=== PATIENT | male | born 1945 | race Caucasian/White ===

== ENCOUNTER 2017-01-13 14:01 | Inpatient (IN) | payer OTHER, MEDICARE ==
[~2017-01-13] VITALS: Ht 177.8 cm; Wt 99.7 kg
[2017-01-13] VITALS (11 sets, daily range): BP systolic 114–149; BP diastolic 51–70; PULSE 72–88; TEMP 36.7–37.1; O2SAT 93–99
[~2017-01-13 14:01] MED LIST changes: -ADVIN25/60 INH; -FRRG PO; -PRLSR20 PO
[2017-01-13] MEDS ORDERED: ADVIN25/60 INH (14:47)
--- NOTE | 2017-01-13 14:48 | EMERGENCY ROOM VISIT NOTE ---
History Report prepared by Julia: Roman Fontenot Under the Supervision of: Dr. Mj Ramsay D.O. First contact with patient: 14:20 Chief Complaint: ABNORMAL LABS Stated Complaint: ABNORMAL BLOOD TEST History of Present Illness The patient is a 71 year old male who presents to the Emergency Room with complaints of shortness of breath and abnormal labs for the past week. The patient states that anytime he took a few steps he gets short of breath and his heart rate goes up. The patient additionally states that he has a slight cough. He denies any chest pain, leg swelling or pain, hematochezia or melena. He states that he drinks alcohol occasionally, he stopped smoking about a week ago , and he has COPD. The patient states that he does not use blood thinners. He additionally states that this has happened before three years ago, and it was never determined why. The patient also states that he has a history of a heart murmur. Source of History: patient Onset: past week Position: other (global) Quality: other (shortness of breath) Associated Symptoms: + cough, No chest pain, No hematochezia, No melena Review of Systems See HPI for pertinent positives & negatives. A total of 10 systems reviewed and were otherwise negative. 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 (5) COPD (chronic obstructive pulmonary disease) (6) Heart murmur (7) Hypertension (8) Hypertension (9) s/p left carotid end Surgical Problems: (1) Status post carotid surgery Family History Cancer Hypertension Social History Smoking Status: Former Smoker Marital Status: Housing Status: lives with family Occupation Status: employed Current/Historical Medications Scheduled Wexemjk-Qltkeaxrx-Virf (Calcium Magnesium & Zinc), 1 TAB PO NOON Fluticasone Prop/Salmeterol (Advair Diskus 250/50 60 Dose), 1 PUFFS INH BID Furosemide (Furosemide), 40 MG PO BID Losartan Potassium (Cozaar), 25 MG PO DAILY AFTERNOON Magnesium (Magnesium 250 mg), 1 TAB PO DAILY AFTERNOON Spironolactone (Spironolactone), 25 MG PO DAILY AFTERNOON Allergies Coded Allergies: No Known Allergies (Unverified , 01/13/17) Physical Exam Vital Signs Date Time Temp Pulse Resp B/P Pulse Ox O2 Delivery O2 Flow Rate FiO2 01/13/17 17:41 37.1 87 25 124/51 94 01/13/17 17:22 91 18 126/51 96 Room Air 01/13/17 16:03 96 15 108/55 95 Room Air 01/13/17 14:55 91 01/13/17 14:03 36.6 105 22 138/57 97 Physical Exam GENERAL: Patient is awake, alert, somewhat anxious appearing but comfortable in no pain EYES: The conjunctivae are clear. The pupils are round and reactive. EARS, NOSE, MOUTH AND THROAT: The nose is without any evidence of any deformity. Mucous membranes are moist tongue is midline NECK: The neck is nontender and supple. RESPIRATORY: Normal respiratory effort is noted there is no evidence of wheezing rhonchi or rales CARDIOVASCULAR: Tachycardic rate with a systolic murmur suggested on auscultation. GASTROINTESTINAL: The abdomen is soft. Bowel sounds are present in all quadrants. Abdomen is nontender RECTAL: Maroon stool which was strongly heme positive MUSCULOSKELETAL/EXTREMITIES: There is no evidence of gross deformity full range of motion is noted in the hips and shoulders SKIN: Pedal edema bilaterally NEUROLOGIC: Patient is awake alert and oriented x3 Medical Decision & Procedures Laboratory Results 01/13/17 14:36 Red Blood Count 2.46, Mean Corpuscular Volume 84.1, Mean Corpuscular Hemoglobin 27.2, Mean Corpuscular Hemoglobin Concent 32.4, Mean Platelet Volume 9.7, Neutrophils (%) (Auto) 56.9, Lymphocytes (%) (Auto) 27.0, Monocytes (%) (Auto) 9.5, Eosinophils (%) (Auto) 5.3, Basophils (%) (Auto) 1.1, Neutrophils # (Auto) 4.75, Lymphocytes # (Auto) 2.25, Monocytes # (Auto) 0.79, Eosinophils # (Auto) 0.44, Basophils # (Auto) 0.09 01/13/17 14:36 Test 01/13/17 00:00 01/13/17 14:36 Urine Color YELLOW Urine Appearance CLEAR (CLEAR) Urine pH 5.0 (4.5-7.5) Urine Specific [place] 1.005 (1.000-1.030) Urine Protein NEG (NEG) Urine Glucose (UA) NEG (NEG) Urine Ketones NEG (NEG) Urine Occult Blood NEG (NEG) Urine Nitrite NEG (NEG) Urine Bilirubin NEG (NEG) Urine Urobilinogen NEG (NEG) Urine Leukocyte Esterase SMALL (NEG) Urine WBC (Auto) 1-5 /hpf (0-5) Urine RBC (Auto) 0-4 /hpf (0-4) Urine Hyaline Casts (Auto) 1-5 /lpf (0-5) Urine Epithelial Cells (Auto) 0-5 /lpf (0-5) Urine Bacteria (Auto) NEG (NEG) White Blood Count 8.34 K/uL (4.8-10.8) Red Blood Count 2.46 M/uL (4.7-6.1) Hemoglobin 6.7 g/dL (14.0-18.0) Hematocrit 20.7 % (42-52) Mean Corpuscular Volume 84.1 fL (80-100) Mean Corpuscular Hemoglobin 27.2 pg (25-34) Mean Corpuscular Hemoglobin Concent 32.4 g/dl (32-36) Platelet Count 371 K/uL (130-400) Mean Platelet Volume 9.7 fL (7.4-10.4) Neutrophils (%) (Auto) 56.9 % Lymphocytes (%) (Auto) 27.0 % Monocytes (%) (Auto) 9.5 % Eosinophils (%) (Auto) 5.3 % Basophils (%) (Auto) 1.1 % Neutrophils # (Auto) 4.75 K/uL (1.4-6.5) Lymphocytes # (Auto) 2.25 K/uL (1.2-3.4) Monocytes # (Auto) 0.79 K/uL (0.11-0.59) Eosinophils # (Auto) 0.44 K/uL (0-0.5) Basophils # (Auto) 0.09 K/uL (0-0.2) RDW Standard Deviation 46.2 fL (36.4-46.3) RDW Coefficient of Variation 15.0 % (11.5-14.5) Immature Granulocyte % (Auto) 0.2 % Immature Granulocyte # (Auto) 0.02 K/uL (0.00-0.02) Large Platelets 1+ Polychromasia 1+ Absolute Reticulocyte Count 0.10 10^6/uL (0.02-0.10) Percent Reticulocyte Count 3.9 % (0.5-2.0) Prothrombin Time 10.7 SECONDS (9.0-12.0) Prothromb Time International Ratio 1.0 (0.9-1.1) Activated Partial Thromboplast Time 32.2 SECONDS (21.0-31.0) Partial Thromboplastin Ratio 1.2 Anion Gap 8.0 mmol/L (3-11) Est Creatinine Clear Calc Drug Dose 93.8 ml/min Estimated GFR () 101.2 Estimated GFR (Non- 87.3 BUN/Creatinine Ratio 20.1 (10-20) Calcium Level 8.6 mg/dl (8.5-10.1) Total Bilirubin 0.3 mg/dl (0.2-1) Direct Bilirubin < 0.1 mg/dl (0-0.2) Aspartate Amino Transf (AST/SGOT) 22 U/L (15-37) Alanine Aminotransferase (ALT/SGPT) 42 U/L (12-78) Alkaline Phosphatase 77 U/L (45-117) Troponin I < 0.015 ng/ml (0-0.045) Total Protein 6.6 gm/dl (6.4-8.2) Albumin 3.5 gm/dl (3.4-5.0) Lipase 203 U/L (73-393) Laboratory results per my review. Medications Administered Medications (Trade) Dose Ordered Sig/Yanni Route Start Time Stop Time Status Last Admin Dose Admin Pantoprazole Sodium 80 mg/ Dextrose 120 ml @ 480 mls/hr TODAY@1600 ONCE IV 01/13/17 16:00 01/13/17 16:14 DC 01/13/17 16:24 480 MLS/HR Pantoprazole Sodium/Dextrose (Protonix Inj/D5 100ml) 100 ml @ 20 mls/hr Q5H IV 01/13/17 16:15 01/13/17 21:14 01/13/17 16:42 20 MLS/HR ECG Indication: SOB/dyspnea Rate (beats per minute): 92 Rhythm: normal sinus Findings: ST depression (Lateral), no ectopy Comparison ECG Date: 09/15/15 Change: no significant change ED Course 1420: The patient was evaluated in room A2. A complete history and physical examination were performed. 1519: I discussed the patient's case with Dr. Owen. He is going to evaluate the patient for further treatment. He said to order four units of blood for the patient Medical Decision Differential diagnosis: Etiologies such as diverticulosis, AVM, coagulopathy, colitis, inflammatory bowel disease, malignancy, Tiffanie-Watson tear, esophagitis, peptic ulcer disease , variceal bleed, gastritis, epistaxis, fissure, hemorrhoids, as well as others were entertained. Nursing notes reviewed. The patient's laboratory studies were also reviewed from his outpatient drop. The patient is a 71-year-old male who presented to the emergency department with shortness of breath on exertion. The patient had outpatient laboratory studies to her his primary care physician and was found have very severe anemia. He was also found have heme positive stool which was maroon color. I do feel the patient may be suffering from a diverticular bleed at this time although he did not realize that. I discussed the patient's laboratory radiographic studies with him. He was treated with blood transfusion in the emergency department. The patient's primary care physician sent him to the emergency department because he was unable to make him a direct admit at this time. I discussed the patient's presentation as well as his physical exam findings with his primary care physician. He is agreed to evaluate the patient in the emergency department for further management and disposition. The patient' s blood transfusion was started in the emergency department. He was feeling much better on subsequent reevaluation especially at rest. Consults Time Called: 1515 Consulting Physician: Dr. Owen Returned Call: 1518 I discussed the patient's case with Dr. Owen. He is going to evaluate the patient for further treatment. He said to order four units of blood for the patient Impression Primary Impression: Lower GI bleed Additional Impression: Anemia Critical Care I have personally spent greater than 45 minutes of critical care time in the direct management of this patient. This includes bedside care, interpretation of diagnostic studies, and testing, discussion with consultants, patient, and family members, and other required patient management activities. This 45 minutes is in excess of all separately billable procedures. Scribe Attestation The scribe's documentation has been prepared under my direction and personally reviewed by me in its entirety. I confirm that the note above accurately reflects all work, treatment, procedures, and medical decision making performed by me. Departure Information Dispostion Being Evaluated By Hospitalist Referrals Robert Anguiano M.D. (PCP) Patient Instructions My [facility] Problem Qualifiers Additional Impression: Anemia Anemia type: other cause Other causes of anemia: acute posthemorrhagic Qualified Codes: D62 - Acute posthemorrhagic anemia
[2017-01-13 15:01] LABS: HEMATOCRIT 20.7 % (42-52); MEAN CELL VOLUME 84.1 fL (80-100); MEAN CORPUSCULAR HEMOGLOBIN 27.2 pg (25-34); MEAN CORPUSCULAR HGB CONC 32.4 g/dl (32-36); MEAN PLATELET VOLUME 9.7 fL (7.4-10.4); PLATELET COUNT 371 K/uL (130-400); RED BLOOD COUNT 2.46 M/uL (4.7-6.1); WHITE BLOOD COUNT 8.34 K/uL (4.8-10.8)
[2017-01-13 15:04] LABS: PARTIAL THROMBOPLASTIN RATIO 1.2; PROTHROMBIN TIME (PATIENT) 10.7 SECONDS (9.0-12.0)
[2017-01-13 15:08] LABS: URINE APPEARANCE CLEAR (CLEAR); URINE BILIRUBIN NEG (NEG); URINE COLOR YELLOW; URINE EPITHELIAL CELL AUTO 0-5 /lpf (0-5); URINE NITRITE NEG (NEG); URINE SPECIFIC GRAVITY 1.005 (1.000-1.030); UROBILINOGEN NEG (NEG)
[2017-01-13 15:09] LABS: MANUAL MICROSCOPIC REQUIRED? NO; REVIEW REQ? NO
[2017-01-13 15:13] LABS: ALT/SGPT 42 U/L (12-78); AST/SGOT 22 U/L (15-37); BLOOD UREA NITROGEN 17 mg/dl (7-18); BUN/CREATININE RATIO 20.1 (10-20); CALCIUM 8.6 mg/dl (8.5-10.1); CARBON DIOXIDE 27 mmol/L (21-32); CHLORIDE 104 mmol/L (98-107); CREATININE 0.83 mg/dl (0.60-1.40); GLUCOSE 99 mg/dl (70-99); SODIUM 139 mmol/L (136-145)
[2017-01-13 15:18] LABS: ALKALINE PHOSPHATASE 77 U/L (45-117)
[2017-01-13 15:19] LABS: BASO % 1.1 %; BASO ABS # 0.09 K/uL (0-0.2); COMPLETE YES; EOS % 5.3 %; IG% 0.2 %; LARGE PLATELETS 1+; LYMPH ABS # 2.25 K/uL (1.2-3.4); MONO % 9.5 %; NEUT % 56.9 %; POLYCHROMASIA 1+
[2017-01-13] MEDS ORDERED: PANTOprazole INJ 80 MG in DEXTROSE 5% 100ML IV ONE (16:00)
[2017-01-13] MEDS ORDERED: PANTOprazole INJ 40 MG in DEXTROSE 5% 100ML IV SCH (16:15)
[2017-01-13] MEDS: LEVALBUTEROL 1.25MG/3ML NEB INH SCH (21:45)
--- NOTE | 2017-01-13 22:54 | HISTORY & PHYSICAL EXAMINATION ---
DATE OF ADMISSION: 01/13/2017 A 71-year-old male, admitted with severe anemia with hemoglobin down to 6.4 and evidence of GI bleed. HISTORY OF PRESENT ILLNESS: The patient with multiple medical problems including severe chronic obstructive pulmonary disease, chronic respiratory failure on home oxygen, arterial hypertension, moderate aortic stenosis, atherosclerotic vascular disease with history of left carotid endarterectomy and smoker. The patient was seen in the office this morning. He was complaining of shortness of breath. He stated that for about the last 1 to 1-1/2 weeks he has been having significant shortness breath, especially with any activity. Even with minimal activity he becomes very dyspneic and tachycardic. His heart rate shows over 100. He has been also complaining of wheezing. He had a recent upper respiratory tract infection which has now resolved. He also has been complaining of lightheadedness when he stares up. He denied any headache. No chest pain. He has been dyspneic as noted above. He has been having some cough, but only clear sputum. No hemoptysis. He has been complaining of heartburn. No nausea, no vomiting. He has not had any problem with his bowel movements. He insists that he has not noted any change in the color of his stool. No urinary problem. No pain in his back or extremities. Laboratory tests were done after I saw him in the office including a CBC. His hemoglobin was called to the lab because it was a critical value, it was 6.4. I contacted the patient. I told him that he was markedly anemic. He needs to be admitted. Arrangements were being made for admission directly to a medical bed, but unfortunately there was no bed available immediately, so the patient was sent to the Emergency Room to get started on his treatment. The patient presented with a similar episode with hemoglobin down to 6.4 back in 2014. His GI workup at that time was unremarkable for any source of bleeding, but he did have evidence of GI bleed at that time also. After admission to the Emergency Room, I did speak with Dr. Burrell and requested a GI consultation. PAST MEDICAL HISTORY: 1. Severe chronic obstructive pulmonary disease. He has been a long-term smoker. Even now he is still smoking, but he told me that he has not smoked for one week. 2. Left carotid endarterectomy for severe carotid artery stenosis done by Dr. Crawley on 10/11/2014. 3. History of colonic polyps. Last colonoscopy was done on 04/01/2015 and he only had one polyp. 4. Appendectomy in the early 1970s. 5. Fracture of the left radius and ulna at age 10. 6. Removal of a left first toe nail bed in the past. 7. Glaucoma, first diagnosed in 2008. 8. Arterial hypertension, treated for the last 3 years. 9. Bilateral cataract surgery, in March 2016. SOCIAL HISTORY: He is , has 2 children. He smokes up to one pack per day since age 17. He made multiple attempts to stop smoking without success. No excessive alcohol. He is retired. 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 FAMILY HISTORY: His mother at age 74, had breast cancer and liver metastasis. His father at age 91 of natural cause. One sister is alive. Children are alive and well. ALLERGIES: BEE STINGS. MEDICATIONS ON ADMISSION: As noted on his admission medication list. REVIEW OF SYSTEMS: Mostly as noted above. PHYSICAL EXAMINATION: GENERAL: Well-developed, in no acute distress. He is dyspneic with minimal activity. His recorded weight is 99.7 kg, height 177.8 cm and BMI 31.5. VITAL SIGNS: Blood pressure 138/57, pulse 105, respirations 22, temperature 36.6 and oxygen saturation 97% on room air. SKIN: Warm and dry. No rash. HEENT: He is post-cataract surgery. No mucosal abnormality in his nose, mouth or throat. NECK: Supple without adenopathy or thyromegaly. No JVD. Bilateral carotid bruits. Scar on left side of the neck from prior carotid endarterectomy. HEART: Regular heart sounds with 2/6 systolic murmur. LUNGS: Decreased breath sounds. No wheezing. No rales. ABDOMEN: Obese, soft and nontender without organomegaly or masses. BACK: No spinal tenderness. EXTREMITIES: Minimal edema. No clubbing. No cyanosis. Absent dorsalis pedis pulses. NEUROLOGIC: He is alert and oriented. No deficits. RECTAL: Examination was done by Dr. Ramsay in the Emergency Room and his stool tested positive for occult blood. LABORATORY TESTS: WBC count 8340, hemoglobin 6.7, hematocrit 20.7, platelet count 371,000. Prothrombin time 10.7, INR 1.0, PTT 32.2. Sodium 139, potassium 4.0, chloride 104, CO2 27, BUN 17, creatinine 0.83, glucose 99, calcium 8.6, total bilirubin 0.3, direct bilirubin less than 0.1, AST 22, ALT 42, alkaline phosphatase 77, troponin I less than 0.015, total protein 6.6, albumin 3.5, lipase 203. His chest x-ray was just done today and showed no evidence of any acute changes. His electrocardiogram showed sinus rhythm. No acute changes were noted. ASSESSMENT: 1. Severe anemia with a hemoglobin of 6.7; it was 6.4 earlier this morning. 2. Evidence of gastrointestinal bleed. 3. Severe chronic obstructive pulmonary disease. 4. Chronic respiratory failure. 5. Atherosclerotic vascular disease with history of left carotid endarterectomy. 6. Moderate aortic stenosis. 7. Smoker. PLAN: The patient was admitted to a medical bed. Resuscitation level 1. All his laboratory tests were ordered. He was typed and cross-matched for packed RBCs. Transfusion was initiated. GI consultation was requested. He saw Dr. Burrell and Dr. Burrell is planning on proceeding with endoscopies after prep tomorrow. In the meantime, he is on IV Protonix. He will receive a total of 3 units of packed RBCs tonight. We will recheck his hemoglobin and hematocrit in the morning. As noted, in 2014 he did have a similar episode of severe anemia and no definite etiology to the blood loss was determined.
[2017-01-14] VITALS (12 sets, daily range): BP systolic 120–170; BP diastolic 63–91; PULSE 73–80; TEMP 36.3–36.8; O2SAT 94–98; Ht 177.8 cm; Wt 99.7 kg
[2017-01-14] MEDS ORDERED: LAVAGE SOLUTION 4000ML PO SCH
[2017-01-14] MEDS: FLUTICASONE/SALMETEROL 250/50 (ADVAIR) 14 PUFF/1 INHALER INH SCH ×3 (01:02→19:58)
[2017-01-14] MEDS: LEVALBUTEROL 1.25MG/3ML NEB INH SCH ×4 (02:08→19:20)
[2017-01-14] MEDS: PANTOprazole INJ 40 MG in DEXTROSE 5% 100ML IV SCH ×2 (06:02→10:28)
--- NOTE | 2017-01-14 06:41 | Clinical Documentation Query ---
Dr. KARINE SORENSEN [facility] : CLINICAL DOCUMENTATION QUERY Patient is a 71 year old male admitted for treatment of gastrointestinal bleeding. Noted to be severely anemic with a hemoglobin of 6.7 g/dl. Noted hematochezia on exam in ED. 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 Please clarify as clinically appropriate. Thank you. In your clinical opinion is this patient being managed for: (x ) Acute blood loss anemia ( ) Other explanation of clinical findings (Please Explain) ( ) Unable to determine (Please Define) ( ) Need to Discuss ( ) Not Agree The medical record reflects the following clinical findings, treatment, and risk factors. Clinical Indicators: As above Treatment: Admission, transfusion of PRBC's, serial hematology, GI consultation Risk Factors: Age Please clarify and document your clinical opinion in the progress notes and discharge summary. Terms such as "probable", "suspected", "likely", "questionable", "possible", or "still to be ruled out" are acceptable. IF IN AGREEMENT, YOU MUST DOCUMENT ABOVE DIAGNOSTIC STATEMENT IN DAILY PROGRESS NOTES AND DISCHARGE SUMMARY. This document is not part of the patient's record. Thank You, Cuauhtemoc Story, RN [phone]
[2017-01-14 07:13] LABS: BASO ABS # 0.09 K/uL (0-0.2); COMPLETE YES; EOS % 4.6 %; IG% 0.2 %; LYMPH % 21.9 %; LYMPH ABS # 1.94 K/uL (1.2-3.4); MEAN CELL VOLUME 83.8 fL (80-100); MEAN CORPUSCULAR HEMOGLOBIN 27.2 pg (25-34); MEAN CORPUSCULAR HGB CONC 32.4 g/dl (32-36); MEAN PLATELET VOLUME 10.1 fL (7.4-10.4); MONO % 9.2 %; NEUT % 63.1 %; PLATELET COUNT 327 K/uL (130-400); RED BLOOD COUNT 3.46 M/uL (4.7-6.1); WHITE BLOOD COUNT 8.87 K/uL (4.8-10.8)
--- NOTE | 2017-01-14 07:31 | GASTROINTESTINAL CONSULTATION ---
DATE OF CONSULTATION: 01/13/2017 REQUESTING PROVIDER: Robert Owen MD INDICATION: Acute GI bleeding and anemia. HISTORY OF PRESENT ILLNESS: I was contacted by Dr. Owen to evaluate Mr. Lobo who is a 71-year-old white male, with a history of COPD, who presents with evidence of anemia. The patient has noted increased fatigue over the last several days and increased shortness of breath. He also noted that his heart rate was tachycardic at home with also some wheezing. The patient seems to recall some recent dark-appearing stools and in 2013 or 2014 the patient had a similar event where he was having dark-appearing stools and found to have low hemoglobin. The patient had undergone an upper endoscopy and colonoscopy at that time which were unrevealing for a specific source. The patient was given blood transfusions at that time, oral iron replacements for several months and by the patient's history, his hemoglobin became more satisfactory and stayed that way for some time. The patient denies any use of NSAIDs or aspirin. He has no abdominal pain and did not report hematochezia, hematemesis or coffee-ground emesis during these over the past several weeks. His office hemoglobin today was 6.4. PAST MEDICAL HISTORY: The patient with COPD, left carotid endarterectomy, history of colonic polyps (he was found to have several polyps that were all removed in 2014 by the patient's history). He also had an appendectomy, left arm fracture, glaucoma, hypertension and cataracts. SOCIAL HISTORY: The patient is , with 2 children. He uses tobacco products. 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 He denies alcohol other than occasional social intake. FAMILY HISTORY: Significant for mother with breast cancer with liver metastasis. His father had no known cancer or gastrointestinal disorders. The children are alive and well. ALLERGIES: TO BEE STINGS, but no allergies to medications specifically. MEDICATIONS: At home include; home O2, calcium, furosemide, losartan, magnesium, spironolactone and Advair. He has no known drug allergies. REVIEW OF SYSTEMS: Otherwise noncontributory based on 14-point exam except for as noted above. There is no weight loss, odynophagia or dysphagia. It is reported that patient denies any diarrhea, constipation or straining. There are no skin disorders or neurologic symptoms described. PHYSICAL EXAMINATION: GENERAL: Today shows a well-developed male, in no acute distress. He is sitting in the bed in the Emergency Room comfortably. VITAL SIGNS: On admission; with temperature 36.6, pulse 105, respirations 22, blood pressure 138/57 and pulse ox is 97%. HEENT: The patient is awake, alert and oriented x3. Sclerae are anicteric, conjunctivae are moist. NECK: There is no cervical or supraclavicular adenopathy. I do not appreciate thyromegaly. HEART: Normal S1, S2. LUNGS: Clear to auscultation without rales, rhonchi or wheezes. ABDOMEN: Soft, obese, nontender and nondistended with normal bowel sounds. There is no rebound or guarding. I do not appreciate hepatosplenomegaly. EXTREMITIES: Without clubbing or cyanosis. There is trace edema bilaterally. RECTAL: Deferred at this time. LABORATORY STUDIES: Hemoglobin today was 6.7, white count 8.3 and platelets 371,000. BUN and creatinine are 17 and 0.8. Potassium 4.0, glucose 99. Urinalysis is unremarkable except for a small amount of leukocyte esterase positivity. The patient had an EKG in the Emergency Room which was sinus with lateral ST depression without ectopy. IMPRESSION: Mr. Lobo is a 71-year-old male with chronic obstructive pulmonary disease, found to have anemia. This has been recurrent and occurred in 2013/2014. The source of this is unclear based on the prior exams. The differential for this given the absence of prior mucosal disorders includes arteriovenous malformations that may extend beyond the extents reached by colonoscopy or upper endoscopy. We will plan for an upper endoscopy/push enteroscopy tomorrow along with a colonoscopy for on. The patient will continue to receive PPI therapy and transfusions as needed. The patient will be n.p.o. after midnight except for medications. All questions were answered. If this is unrevealing, then the patient may benefit from a small bowel video capsule endoscopy to exclude any areas that may be sources of bleeding beyond the extents of bidirectional endoscopy. This, by the patient's description, has never been a significantly overt bleeding process. However, if these persist and there is nothing on upper endoscopy or capsule endoscopy a Meckel's scan may be helpful. We will continue to follow. Thank you for allowing me to participate in the care of this pleasant gentleman.
[2017-01-14 07:43] LABS: BUN/CREATININE RATIO 18.2 (10-20); CREATININE 0.83 mg/dl (0.60-1.40)
[2017-01-14] MEDS ORDERED: LIDOCAINE HCL 2% 2 ML VIAL (20MG/ML) ONE (15:25)
[2017-01-14] MEDS ORDERED: PROPOFOL IV EMULSION 10 MG/ML 20 ML VIAL IV ONE ×2 (15:25→16:37)
--- NOTE | 2017-01-14 15:28 | History & Physical Bridge Note ---
H&P Re-Evaluation Bridge Note: I have examined the patient, reviewed the History & Physical and in the interval since the performance of the History & Physical I have noted the following changes of clinical significance: No changes noted
[2017-01-14] MEDS ORDERED: LOSARTAN POTASSIUM 25 MG TAB PO SCH (16:00)
[2017-01-14] MEDS ORDERED: SPIRONOLACTONE 25 MG TAB PO SCH (16:00)
--- NOTE | 2017-01-14 16:44 | GI REPORT ---
Procedure Date: 01/14/2017 3:27 PM Procedure: Small bowel enteroscopy Indications: Iron deficiency anemia secondary to chronic blood loss, Obscure gastrointestinal bleeding, Occult blood in stool Medicines: Propofol per Anesthesia Complications: No immediate complications. Estimated blood loss: None. Estimated Blood Loss: Estimated blood loss: none. Procedure: Pre-Anesthesia Assessment: - Prior to the procedure, a History and Physical was performed, and patient medications and allergies were reviewed. The patient's tolerance of previous anesthesia was also reviewed. The risks and benefits of the procedure and the sedation options and risks were discussed with the patient. All questions were answered, and informed consent was obtained. Prior Anticoagulants: The patient has taken no previous anticoagulant or antiplatelet agents. ASA Grade Assessment: III - A patient with severe systemic disease. After reviewing the risks and benefits, the patient was deemed in satisfactory condition to undergo the procedure. After obtaining informed consent, the endoscope was passed under direct vision. Throughout the procedure, the patient's blood pressure, pulse, and oxygen saturations were monitored continuously. The scope was introduced through the mouth and advanced to the mid-jejunum. After obtaining informed consent, the endoscope was passed under direct vision. Throughout the procedure, the patient's blood pressure, pulse, and oxygen saturations were monitored continuously.The small bowel enteroscopy was accomplished without difficulty. The patient tolerated the procedure well. Findings: The examined esophagus was normal. Striped mildly erythematous mucosa without bleeding was found in the gastric antrum. The cardia and gastric fundus were normal on retroflexion. There was no evidence of significant pathology in the entire examined duodenum. Three angioectasias with stigmata of recent bleeding were found in the mid-jejunum. Fulguration to ablate the lesion to prevent bleeding by bipolar probe was successful. Impression: - Normal esophagus. - Erythematous mucosa in the antrum. - Normal examined duodenum. - Three recently bleeding angioectasias in the jejunum. Treated with bipolar cautery. - No specimens collected. Recommendation: - Perform a colonoscopy today. MD Rikki Caputo MD 01/14/2017 4:44:22 PM This report has been signed electronically. Note Initiated On: 01/14/2017 3:27 PM I attest to the content of the Intraoperative Record and orders documented therein, exceptions below
--- NOTE | 2017-01-14 16:50 | GI REPORT ---
Procedure Date: 01/14/2017 3:27 PM Procedure: Colonoscopy Indications: Iron deficiency anemia secondary to chronic blood loss Medicines: Propofol per Anesthesia Complications: No immediate complications. Estimated Blood Loss: Estimated blood loss: none. Procedure: Pre-Anesthesia Assessment: - Prior to the procedure, a History and Physical was performed, and patient medications and allergies were reviewed. The patient's tolerance of previous anesthesia was also reviewed. The risks and benefits of the procedure and the sedation options and risks were discussed with the patient. All questions were answered, and informed consent was obtained. Prior Anticoagulants: The patient has taken no previous anticoagulant or antiplatelet agents. ASA Grade Assessment: III - A patient with severe systemic disease. After reviewing the risks and benefits, the patient was deemed in satisfactory condition to undergo the procedure. After I obtained informed consent, the scope was passed under direct vision. Throughout the procedure, the patient's blood pressure, pulse, and oxygen saturations were monitored continuously. The scope was introduced through the anus and advanced to the cecum, identified by appendiceal orifice and ileocecal valve. The colonoscopy was performed without difficulty. The patient tolerated the procedure well. The quality of the bowel preparation was fair. Findings: The perianal and digital rectal examinations were normal. Pertinent negatives include normal sphincter tone, no palpable rectal lesions and no anal lesion or abnormality was detected. A single medium-sized localized angiodysplastic lesion with bleeding was found in the cecum. Fulguration to stop the bleeding by bipolar probe was successful. Estimated blood loss: none. The exam was otherwise without abnormality. The retroflexed view of the distal rectum and anal verge was normal and showed no anal or rectal abnormalities. Impression: - A single bleeding colonic angiodysplastic lesion. Treated with bipolar cautery. - The examination was otherwise normal. - The distal rectum and anal verge are normal on retroflexion view. - No specimens collected. Recommendation: - Return patient to [facility] for ongoing care. - Advance diet as tolerated. - Follow H/H serially. If remains stable and climbs then would follow Q 3 months . If trends down, would consider video capsule endoscopy and perhaps repeating SB enteroscoy/colonoscopy. MD Rikki Caputo MD 01/14/2017 4:50:58 PM This report has been signed electronically. Note Initiated On: 01/14/2017 3:27 PM I attest to the content of the Intraoperative Record and orders documented therein, exceptions below
--- NOTE | 2017-01-14 16:51 | Anesthesiology Progress Note ---
Anesthesia Post Op Note Date & Time Jan 14, 2017 at 16:51 Vital Signs Pain Intensity: 0.0 Vital Signs Past 12 Hours Date Time Temp Pulse Resp B/P Pulse Ox O2 Delivery O2 Flow Rate FiO2 01/14/17 16:49 90 20 132/61 95 Room Air 01/14/17 14:31 36.8 84 20 173/92 93 Room Air 01/14/17 12:22 36.3 77 20 148/63 95 Room Air 2.0 01/14/17 10:01 148/63 01/14/17 08:06 Room Air 01/14/17 07:22 36.3 77 20 170/72 95 Room Air Notes Mental Status: alert / awake / arousable, participated in evaluation Pt Amnestic to Procedure: Yes Nausea / Vomiting: adequately controlled Pain: adequately controlled Airway Patency, RR, SpO2: stable & adequate BP & HR: stable & adequate Hydration State: stable & adequate Anesthetic Complications: no major complications apparent
[2017-01-14] MEDS ORDERED: NURSING VERBAL MED ORDER ONE (18:15)
[2017-01-15 00:56] VITALS: BP 120/70; PULSE 71; TEMP 36.5; O2SAT 98
--- NOTE | 2017-01-15 01:20 | PROGRESS NOTE ---
DATE: 01/14/2017 A 71-year-old male admitted with severe anemia. He also had evidence of GI bleed. His medical problems include chronic obstructive pulmonary disease, chronic respiratory failure, arterial hypertension, atherosclerotic vascular disease. The patient was admitted. He was started on IV Protonix. He was transfused 3 units of packed RBCs during the night. He was seen in GI consultation by Dr. Burrell. The patient remained stable. He was not having any dizziness or lightheadedness. No chest pain. Was not as dyspneic. No abdominal pain, no nausea, no vomiting. He was undergoing preparation for his colonoscopy. Denied any pain in his back or extremities. He did have slight leg edema. PHYSICAL EXAMINATION: GENERAL: Well developed, in no distress. VITAL SIGNS: Blood pressure 170/72, pulse 77, respiration 20, temperature 36.3, oxygen saturation 95% on room air. SKIN: Warm and dry. No rash. HEENT: No mucosal abnormality. NECK: Scar from prior carotid endarterectomy. No JVD. HEART: Regular heart sounds with 2/6 systolic murmur. LUNGS: Clear. Decreased breath sounds. ABDOMEN: Soft, nontender. BACK: No spinal tenderness. EXTREMITIES: 1+ edema. No clubbing or cyanosis. LABORATORY TESTS: WBC count 8870, hemoglobin 9.4, hematocrit 29, platelet count 327,000. Sodium 137, potassium 4.0, chloride 101, CO2 28, BUN 15, creatinine 0.83, glucose 111, calcium 9.0. The patient was taken to the endoscopy suite today by Dr. Burrell. He had an upper endoscopy including the jejunum. He was identified as having 3 areas of angio dyscrasia which were the source of bleeding. He also had a colonoscopy done and another lesion was identified. ASSESSMENT: 1. Gastrointestinal bleed secondary to angio dyscrasia of the jejunum and the colon. Cauterized. 2. Severe anemia secondary to acute blood loss. 3. Chronic obstructive pulmonary disease. 4. Chronic respiratory failure. 5. Moderate aortic stenosis. PLAN: 1. Overall, his condition is stable, the source of his bleeding is identified. 2. We will continue monitoring through the night. 3. We will repeat his laboratory tests in the morning. 4. His Protonix was discontinued. 5. If his hemoglobin remains stable, the patient should be able to go home tomorrow. [facility]
[2017-01-15] MEDS: LEVALBUTEROL 1.25MG/3ML NEB INH SCH ×2 (02:18→07:24)
[2017-01-15 07:04] LABS: BASO % 0.3 %; BASO ABS # 0.03 K/uL (0-0.2); EOS % 3.3 %; HEMATOCRIT 25.9 % (42-52); IG% 0.2 %; LYMPH % 10.1 %; LYMPH ABS # 1.08 K/uL (1.2-3.4); MEAN CELL VOLUME 84.1 fL (80-100); MEAN CORPUSCULAR HEMOGLOBIN 26.9 pg (25-34); MEAN PLATELET VOLUME 9.8 fL (7.4-10.4); MONO % 9.5 %; NEUT % 76.6 %; PLATELET COUNT 299 K/uL (130-400); RED BLOOD COUNT 3.08 M/uL (4.7-6.1); WHITE BLOOD COUNT 10.69 K/uL (4.8-10.8)
[2017-01-15 07:24] VITALS: PULSE 79; O2SAT 86
[2017-01-15] MEDS ORDERED: PRLSR20 PO (07:30)
[2017-01-15] MEDS ORDERED: FRRG PO (07:30)
--- NOTE | 2017-01-15 07:33 | Discharge Instructions ---
Discharge Instructions Admission Reason for Admission: Anemia,Gi Bleed,Copd,Asvd Discharge Discharge Diagnosis / Problem: ACUTE GASTROINTESTINAL BLEED. ANGIO DYSCRASIA JEJUNUM AND COLON Discharge Goals Goal(s): Improve disease control Activity Recommendations Activity Limitations: resume your previous activity . Instructions / Follow-Up Instructions / Follow-Up BLOOD TEST ON WEDNESDAY DR RIVAS IN ONE WEEK Current Hospital Diet Patient's current hospital diet: AHA Diet (Heart Healthy) Discharge Diet Recommended Diet: Regular Diet Procedures Procedures Performed: EGD with bipolar caudery of AVM's; colonoscopy with bipolar caudery of AVM's Pending Studies Studies pending at discharge: no Medical Emergencies . Who to Call and When: Medical Emergencies: If at any time you feel your situation is an emergency, please call 911 immediately. . Non-Emergent Contact Non-Emergency issues call your: Primary Care Provider . . "Provider Documentation" section prepared by Robert Rivas. VTE Core Measure Inpt VTE Proph given/why not?: Treatment not indicated
[2017-01-15 07:37] LABS: COMPLETE YES; GIANT PLATELETS 1+; POLYCHROMASIA 1+
[2017-01-15 07:41] LABS: BUN/CREATININE RATIO 17.2 (10-20); CALCIUM 8.9 mg/dl (8.5-10.1); CREATININE 0.69 mg/dl (0.60-1.40); POTASSIUM 4.1 mmol/L (3.5-5.1)
[2017-01-15 07:46] VITALS: O2SAT 88
[2017-01-15] MEDS: FLUTICASONE/SALMETEROL 250/50 (ADVAIR) 14 PUFF/1 INHALER INH SCH (07:46)
[2017-01-15 07:48] VITALS: BP 114/62; PULSE 82; TEMP 36.9; O2SAT 91
[2017-01-15 07:50] VITALS: BP 114/62; PULSE 82; TEMP 36.9; O2SAT 91
--- NOTE | 2017-01-18 07:47 | PROGRESS NOTE ---
DATE: 01/15/2017 A 71-year-old male admitted with severe anemia with hemoglobin of 6.7 and evidence of GI bleed. His medical problems also include arterial hypertension, chronic obstructive pulmonary disease, chronic respiratory failure, atherosclerotic vascular disease with history of left carotid endarterectomy, moderate aortic stenosis. The patient was admitted. He was transfused a total of 3 units of packed RBCs. He was seen in GI consultation by Dr. Burrell. He underwent upper and lower GI endoscopies. Dr. Burrell was able to identify areas of angiodyscrasia both in the jejunum and also in the colon. He was able to cauterize 4 lesions. There was stigma that these are the source of his bleeding. Overall, the procedures were tolerated very well. He was doing well without any problem. Denied any headache or dizziness. No chest pain, no shortness of breath. No abdominal pain, no nausea, no vomiting. No problem urinating. No pain in his back or extremities. PHYSICAL EXAMINATION: GENERAL: Well developed, in no distress. VITAL SIGNS: Blood pressure 114/62, pulse 82, respiration 20, temperature 36.9, oxygen saturation 91% on room air. SKIN: Warm and dry. No rash. HEENT: No mucosal abnormality. NECK: No JVD, no adenopathy. Bilateral carotid bruit. HEART: Regular heart sounds with 2/6 systolic murmur. LUNGS: Decreased breath sounds. No wheezing. ABDOMEN: Soft, nontender. EXTREMITIES: Bilateral leg edema, more pronounced on the right side. TODAY'S LABORATORY TESTS: WBC count 10,690, hemoglobin 8.3, hematocrit 25.9, platelet count 299,000. Sodium 141, potassium 4.1, chloride 105, CO2 of 30, BUN 12, creatinine 0.69, glucose 100, calcium 8.9. ASSESSMENT: 1. Acute gastrointestinal bleed. 2. Severe anemia secondary to gastrointestinal bleed. 3. Angiodyscrasia of the jejunum and colon. 4. Chronic obstructive pulmonary disease. 5. Chronic respiratory failure. 6. Moderate aortic stenosis. PLAN: 1. His condition was quite stable. He was not having any problem. He was tolerating his diet. I do not think the drop in his hemoglobin was related to any evidence of any additional bleeding but most likely equilibration as expected. 2. He was discharged home today. 3. I will see him in the office in 1 week, but I asked him to come to the office on Wednesday to recheck his CBC. 4. He will continue all his other medications. 5. He will continue using his oxygen at home. He mostly uses it at night.
--- NOTE | 2017-01-27 22:30 | DISCHARGE SUMMARY ---
DISCHARGE DIAGNOSES: 1. Acute gastrointestinal bleed. 2. Angio dyscrasia of the jejunum and colon, thought to be the source of his bleeding. 3. Anemia, secondary to acute blood loss. 4. Chronic obstructive pulmonary disease. 5. Aortic stenosis. 6. Smoker. 7. Atherosclerotic vascular disease with history of left carotid endarterectomy. 8. Chronic respiratory failure, on home oxygen. DISCHARGE MEDICATIONS: Included: 1. Ferrous gluconate 324 mg three times a day. 2. Omeprazole 20 mg daily. 3. Calcium, magnesium and zinc supplements; one daily. 4. Advair Diskus 250/50, one inhalation twice a day. 5. Furosemide 40 mg twice a day. 6. Losartan 25 mg daily. 7. Magnesium 250 mg daily. 8. Spironolactone 25 mg daily. CONSULTATION: Rikki Burrell MD in gastroenterology. PROCEDURES: 1. Colonoscopy. 2. EGD. HISTORY OF PRESENT ILLNESS: A 71-year-old male, admitted with severe anemia with hemoglobin down to 6.4. He also had evidence of GI bleed. The patient with multiple medical problems as noted above. He was seen in the office on the morning of admission, complaining of shortness of breath. He stated that for about 1 to 1-1/2 weeks prior to his admission he has been having significant shortness of breath, especially with any activity. He was also getting tachycardic. He was not complaining of any wheezing. He did have a recent upper respiratory tract infection which was resolved. The patient was also complaining of feeling lightheaded when he stands up. He denied any headache or chest pain. He had no abdominal pain, no nausea, no vomiting. He denies seeing any blood in his stool or denies seeing any black stool. Blood tests were done including a CBC. His hemoglobin was reported to be 6.4. I contacted the patient and arrangements were made for admission. I wanted to admit him directly, but there was no bed available at that point, so I sent him to the Emergency Room to initiate his treatment. PAST MEDICAL HISTORY, SOCIAL HISTORY AND FAMILY HISTORY: All as noted. ALLERGIES: BEE STINGS. MEDICATIONS ON ADMISSION: All as noted. PHYSICAL EXAMINATION AND ADMISSION LABORATORY TESTS: All as noted. HOSPITAL COURSE: The patient was admitted to a medical bed. Resuscitation level 1. All his laboratory tests were ordered. He was typed and cross matched for packed RBCs. Transfusions were ordered. GI consultation was requested. I spoke with Dr. Burrell. The patient was hospitalized in 2014 with a similar episode with hemoglobin down to 6.4 at that time also. He had endoscopies done and the source of bleeding was not determined. The patient was admitted. He was transfused a total of 3 units of packed RBCs. They were well-tolerated. He was seen by Dr. Burrell. The following day, he underwent a colonoscopy and an EGD. There was evidence of angio dyscrasia both in the jejunum and colon and these are thought to be the source of his bleeding. They were cauterized. The procedure was well-tolerated. The patient was ambulating. He was not having any dizziness or any lightheadedness. No abdominal pain, no nausea. He was tolerating his diet. He was discharged home. Medications as noted above. He was to have a CBC redone. He was to be seen in the office 1 week after his discharge. [facility]
== END 2017-01-15 08:56 | disposition home or self-care (01) | DRG 378 ==
LOC: ENRESERVDT → ENRESERVTM → C.EDB 14:02 → C.MS4W 15:21
PROVIDERS: ADMIT Internal Medicine; ATTEND Internal Medicine
PROC: 0W3P8ZZ Control Bleeding in Gastrointestinal Tract, Via Natural or Artificial Opening Endoscopic (ICD-10-PCS; principal; 2017-01-14 14:24)
DX: K92.2 Gastrointestinal hemorrhage, unspecified (principal); D62 Acute posthemorrhagic anemia; J96.10 Chronic respiratory failure, unspecified whether with hypoxia or hypercapnia; Z99.81 Dependence on supplemental oxygen; J44.9 Chronic obstructive pulmonary disease, unspecified; I10 Essential (primary) hypertension; I35.0 Nonrheumatic aortic (valve) stenosis; F17.200 Nicotine dependence, unspecified, uncomplicated; E66.9 Obesity, unspecified; Z68.31 Body mass index [BMI] 31.0-31.9, adult; Z86.79 Personal history of other diseases of the circulatory system; Z86.010 Personal history of colon polyps; Z90.49 Acquired absence of other specified parts of digestive tract; Z80.3 Family history of malignant neoplasm of breast; Z80.0 Family history of malignant neoplasm of digestive organs; R10.13 Epigastric pain

== ENCOUNTER → 2017-01-13 | Outpatient (CLI) | payer OTHER, MEDICARE ==
[~2017-01-13] MED LIST: ADVIN25/60 INH; ADVIN25050 INH; CALC1TAB27 PO; FERR325T51 PO; FRRG PO; LATA0.009 OPR; LOSA1TAB PO; LSX40 PO; MAGN250T3 PO; PRED1SUS3 OPL; PRLSR20 PO; SPR25 PO
[2017-01-13 12:59] LABS: HEMATOCRIT 20.2 % (42-52); MEAN CELL VOLUME 84.5 fL (80-100); MEAN CORPUSCULAR HEMOGLOBIN 26.8 pg (25-34); MEAN CORPUSCULAR HGB CONC 31.7 g/dl (32-36); PLATELET COUNT 358 K/uL (130-400); RED BLOOD COUNT 2.39 M/uL (4.7-6.1); WHITE BLOOD COUNT 7.84 K/uL (4.8-10.8)
[2017-01-13 13:11] LABS: BASO % 1.1 %; BASO ABS # 0.09 K/uL (0-0.2); COMPLETE YES; EOS % 5.6 %; GIANT PLATELETS 1+; IG% 0.1 %; LYMPH % 23.1 %; LYMPH ABS # 1.81 K/uL (1.2-3.4); MONO % 10.1 %; POLYCHROMASIA 1+
[2017-01-13 13:36] LABS: ALB/GLOB RATIO 1.1 (0.9-2); ALT/SGPT 40 U/L (12-78); AST/SGOT 19 U/L (15-37); BLOOD UREA NITROGEN 16 mg/dl (7-18); BUN/CREATININE RATIO 20.4 (10-20); CALCIUM 8.8 mg/dl (8.5-10.1); CARBON DIOXIDE 26 mmol/L (21-32); CHLORIDE 104 mmol/L (98-107); CREATININE 0.78 mg/dl (0.60-1.40); GLUCOSE 103 mg/dl (70-99); POTASSIUM 4.1 mmol/L (3.5-5.1); SODIUM 139 mmol/L (136-145)
[2017-01-13 13:46] LABS: ALKALINE PHOSPHATASE 69 U/L (45-117); AMYLASE 47 U/L (25-115)
== END | disposition home or self-care (01) ==
LOC: C.LABSPEC 12:19
PROVIDERS: ATTEND Internal Medicine
DX: R10.13 Epigastric pain (principal); R06.00 Dyspnea, unspecified

== ENCOUNTER → 2017-01-13 | Outpatient (CLI) | payer OTHER, MEDICARE ==
--- NOTE | 2017-01-13 12:02 | DIAGNOSTIC IMAGING REPORT ---
CHEST 2 VIEWS ROUTINE CLINICAL HISTORY: DYSPNEA COMPARISON STUDY: 09/17/2015 FINDINGS: Mild emphysematous change. Mild prominence of the central pulmonary vasculature. No acute infiltrate. Diaphragms smooth. IMPRESSION: Chronic change. No acute process. Electronically signed by: Pineda Fontaine M.D. 01/13/2017 12:01 PM Dictated Date/Time: 01/13/2017 12:00 PM
== END | disposition home or self-care (01) ==
LOC: C.RAD 11:25
PROVIDERS: ATTEND Internal Medicine
DX: R06.00 Dyspnea, unspecified (principal)

== ENCOUNTER → 2017-01-18 | Outpatient (CLI) | payer OTHER, MEDICARE ==
[~2017-01-18] MED LIST changes: +ADVIN25/60 INH; -ADVIN25050 INH; -FERR325T51 PO; +FRRG PO; -LATA0.009 OPR; -PRED1SUS3 OPL; +PRLSR20 PO
[2017-01-18 13:33] LABS: HEMATOCRIT 28.9 % (42-52); MEAN CELL VOLUME 83.3 fL (80-100); MEAN CORPUSCULAR HEMOGLOBIN 25.6 pg (25-34); MEAN CORPUSCULAR HGB CONC 30.8 g/dl (32-36); PLATELET COUNT 338 K/uL (130-400); RED BLOOD COUNT 3.47 M/uL (4.7-6.1); WHITE BLOOD COUNT 7.34 K/uL (4.8-10.8)
== END | disposition home or self-care (01) ==
LOC: C.LABSPEC 12:34
PROVIDERS: ATTEND Internal Medicine
DX: K92.2 Gastrointestinal hemorrhage, unspecified (principal); D64.9 Anemia, unspecified

== ENCOUNTER → 2017-01-22 | Outpatient (CLI) | payer OTHER, MEDICARE ==
[2017-01-22 20:23] LABS: HEMATOCRIT 33.6 % (42-52); MEAN CELL VOLUME 89.8 fL (80-100); MEAN CORPUSCULAR HGB CONC 30.1 g/dl (32-36); PLATELET COUNT 310 K/uL (130-400); RED BLOOD COUNT 3.74 M/uL (4.7-6.1); WHITE BLOOD COUNT 9.68 K/uL (4.8-10.8)
== END | disposition home or self-care (01) ==
LOC: C.LABSPEC 11:20
PROVIDERS: ATTEND Internal Medicine
DX: D64.9 Anemia, unspecified (principal); K92.2 Gastrointestinal hemorrhage, unspecified

== ENCOUNTER → 2017-03-19 | Outpatient (CLI) | payer OTHER, MEDICARE ==
[~2017-03-19] MED LIST changes: -PRLSR20 PO
[2017-03-19 14:36] LABS: BASO % 0.7 %; BASO ABS # 0.07 K/uL (0-0.2); COMPLETE YES; EOS % 2.6 %; HEMATOCRIT 45.5 % (42-52); IG% 0.3 %; LYMPH % 21.3 %; LYMPH ABS # 2.06 K/uL (1.2-3.4); MEAN CELL VOLUME 87.7 fL (80-100); MEAN CORPUSCULAR HEMOGLOBIN 29.3 pg (25-34); MEAN CORPUSCULAR HGB CONC 33.4 g/dl (32-36); MEAN PLATELET VOLUME 10.6 fL (7.4-10.4); MONO % 11.8 %; NEUT % 63.3 %; PLATELET COUNT 340 K/uL (130-400); RED BLOOD COUNT 5.19 M/uL (4.7-6.1); WHITE BLOOD COUNT 9.68 K/uL (4.8-10.8)
[2017-03-19 14:45] LABS: BLOOD UREA NITROGEN 15 mg/dl (7-18); BUN/CREATININE RATIO 17.9 (10-20); CALCIUM 10.1 mg/dl (8.5-10.1); CARBON DIOXIDE 32 mmol/L (21-32); CHLORIDE 103 mmol/L (98-107); CREATININE 0.86 mg/dl (0.60-1.40); GLUCOSE 69 mg/dl (70-99); POTASSIUM 4.5 mmol/L (3.5-5.1); SODIUM 138 mmol/L (136-145)
== END | disposition home or self-care (01) ==
LOC: C.LABSPEC 14:24
PROVIDERS: ATTEND Internal Medicine
DX: D64.9 Anemia, unspecified (principal); I10 Essential (primary) hypertension

== ENCOUNTER → 2017-06-03 | Outpatient (CLI) | payer OTHER, MEDICARE ==
--- NOTE | 2017-06-03 10:24 | DIAGNOSTIC IMAGING REPORT ---
ULTRASOUND OF THE CAROTID ARTERIES CLINICAL HISTORY: CAROTID ARTERY STENOSIS COMPARISON STUDY: 05/18/2016 TECHNIQUE: Real-time, grayscale, and color Doppler sonography of the carotid arteries was performed. Imaging reviewed in the transverse and longitudinal planes. NASCET criteria was utilized for stenosis calcification. FINDINGS: There is moderate atherosclerotic plaque present right greater than left. The peak systolic velocity within the right internal carotid artery is 225 cm/sec. The systolic velocity ratio of right internal to common carotid artery is 2.3. The peak systolic velocity within the left internal carotid artery is 82 cm/sec. The systolic velocity ratio left internal to common carotid artery is 1.8. Antegrade flow is seen in the vertebral arteries. The external carotid arteries are patent. Blood pressure in the right arm measured 138 mm/Hg. Blood pressure in the left arm measured 139 mm/Hg. IMPRESSION: Elevated velocities within the right internal carotid artery, indicative of a 50-69% stenosis. Electronically signed by: Farhat Goff M.D. 06/03/2017 10:23 AM Dictated Date/Time: 06/03/2017 10:20 AM
== END | disposition home or self-care (01) ==
LOC: C.ULTR 09:26
PROVIDERS: ATTEND Surgery
DX: I65.29 Occlusion and stenosis of unspecified carotid artery (principal)

== ENCOUNTER → 2018-06-22 | Outpatient (CLI) | payer OTHER, MEDICARE ==
[~2018-06-22] MED LIST changes: +SPIR25TA6 PO; -SPR25 PO
[2018-06-22 12:43] LABS: BLOOD UREA NITROGEN 19 mg/dl (7-18); CALCIUM 9.2 mg/dl (8.5-10.1); CARBON DIOXIDE 28 mmol/L (21-32); CREATININE 0.81 mg/dl (0.60-1.40); GLUCOSE 97 mg/dl (70-99); POTASSIUM 4.6 mmol/L (3.5-5.1); SODIUM 135 mmol/L (136-145)
== END | disposition home or self-care (01) ==
LOC: C.LAB1850 10:37
PROVIDERS: ATTEND Surgery
DX: I65.29 Occlusion and stenosis of unspecified carotid artery (principal)

== ENCOUNTER → 2018-06-23 | Outpatient (CLI) | payer OTHER, MEDICARE ==
[~2018-06-23] MED LIST changes: +OPTIRAY 320 IV PRN
--- NOTE | 2018-06-23 13:59 | DIAGNOSTIC IMAGING REPORT ---
NECK ANGIO WITH CONTRAST HISTORY: Carotid stenosis CAROTID STENOSIS, WITH IV ONLY PER RAD ( [facility] ) TECHNIQUE: Multiaxial CT images of the neck were performed following the intravenous administration of contrast to evaluate the major cervical vessels. Maximum intensity projection images were also obtained. All measurements were calculated based on NASCET criteria. A dose lowering technique was utilized adhering to the principles of ALARA. COMPARISON STUDY: Carotid Doppler 06/06/2018 FINDINGS: Atherosclerotic change origin of the great vessels with no evidence for major stenotic process. The right carotid bifurcation is remarkable for extensive plaque formation involving the proximal aspect of the right internal carotid artery. Estimated narrowing is 90% at maximum. The right external carotid artery is unremarkable. The carotid system shows no significant stenotic process at the bifurcation. There is approximately 50 present narrowing of the proximal left internal carotid artery 1.5 cm from its origin. Vertebral basilar system is unremarkable. IMPRESSION: 1. 90% stenosis proximal right internal carotid artery with extensive plaque formation within the proximal several centimeters of the right internal carotid artery. 2. 50 present stenosis left internal carotid artery 2 cm from its origin. 3. No significant stenotic process of the vertebral basilar system. The above report was generated using voice recognition software. It may contain grammatical, syntax or spelling errors. Electronically signed by: Pineda Fontaine M.D. 06/23/2018 1:57 PM Dictated Date/Time: 06/23/2018 1:52 PM
== END | disposition home or self-care (01) ==
LOC: C.CTS 12:28
PROVIDERS: ATTEND Surgery
DX: I65.29 Occlusion and stenosis of unspecified carotid artery (principal)

== ENCOUNTER → 2018-07-08 | Outpatient (CLI) | payer OTHER, MEDICARE ==
[~2018-07-08] MED LIST changes: -OPTIRAY 320 IV PRN
--- NOTE | 2018-07-08 15:31 | ECHOCARDIOGRAM REPORT ---
*NOTICE TO RECEIVING [employer] This information is strictly Confidential and protected under [place] law. [place] law prohibits you from making any further disclosure of this information unless further disclosure is expressly permitted by the written consent of the person to whom it pertains or is authorized by law. A general authorization for the release of medical or other information is not sufficient for this purpose. Hospital accepts no responsibility if the information is made available to any other person, INCLUDING THE PATIENT. Interpretation Summary * Name: TIEN PIERCE Study Date: 07/08/2018 12:34 PM BP: 156/52 mmHg * Patient Location: [facility] HR: 83 * : 1945 (M/d/yyyy) Gender: Male Height: 71 in * Age: 73 yrs Ethnicity: CA Weight: 210 lb * Ordering Physician: COLTON RIVAS MD * Performed By: Roya Blake RCS * * Reason For Study: PRE-OP / AORTIC STENOSIS * BSA: 2.2 m2 * -- Conclusions -- * There is moderate concentric left ventricular hypertrophy. * Left ventricular systolic function is normal. * Grade I diastolic dysfunction, (abnormal relaxation pattern). * Borderline left atrial enlargement. * Severe valvular aortic stenosis. * There is severe mitral annular calcification. * There is mild to moderate mitral stenosis. * Compared to an echocardiogram from 09/12/2015, the degree of aortic stenosis is now severe. Procedure Details * The study was diagnostic quality. Left Ventricle * The left ventricle is normal in size. * There is moderate concentric left ventricular hypertrophy. * Left ventricular systolic function is normal. * Ejection Fraction = 60-65%. * Grade I diastolic dysfunction, (abnormal relaxation pattern). * The left ventricular wall motion is normal. Right Ventricle * The right ventricle is normal in size and function. Atria * Borderline left atrial enlargement. * Right atrial size is normal. Mitral Valve * Calcified mitral apparatus. * There is severe mitral annular calcification. * There is mild to moderate mitral stenosis. * There is trace mitral regurgitation. Tricuspid Valve * The tricuspid valve is not well visualized, but is grossly normal. * Significant tricuspid regurgitation is absent. Aortic Valve * The aortic valve is not well visualized. * Severe valvular aortic stenosis. * There is no significant aortic regurgitation. Pulmonic Valve * The pulmonic valve is not well visualized. Pericardium/Pleural * There is no pericardial effusion. MMode 2D Measurements and Calculations IVSd 2.3 cm IVSs 2.7 cm LVIDd 3.9 cm LVIDs 3.1 cm LVPWd 1.4 cm LVPWs 1.6 cm IVS/LVPW 1.6 FS 21.5 % EDV(Teich) 65.5 ml ESV(Teich) 36.5 ml EF(Teich) 44.3 % EDV(cubed) 58.8 ml ESV(cubed) 28.4 ml EF(cubed) 51.7 % % IVS thick 15.0 % % LVPW thick 13.8 % LV mass(C)d 322.6 grams LV mass(C)dI 149.8 grams/m\S\2 LV mass(C)s 307.0 grams LV mass(C)sI 142.6 grams/m\S\2 SV(Teich) 29.0 ml SI(Teich) 13.5 ml/m\S\2 SV(cubed) 30.4 ml SI(cubed) 14.1 ml/m\S\2 LVOT diam 2.2 cm LVOT area 3.7 cm\S\2 LVAd ap4 33.8 cm\S\2 LVLd ap4 8.7 cm EDV(MOD-sp4) 109.8 ml EDV(sp4-el) 111.6 ml LVAs ap4 19.5 cm\S\2 LVLs ap4 6.9 cm ESV(MOD-sp4) 45.5 ml ESV(sp4-el) 46.9 ml EF(MOD-sp4) 58.6 % EF(sp4-el) 58.0 % LVAd ap2 31.1 cm\S\2 LVLd ap2 7.9 cm EDV(MOD-sp2) 102.9 ml EDV(sp2-el) 104.0 ml LVAs ap2 16.9 cm\S\2 LVLs ap2 5.6 cm ESV(MOD-sp2) 44.1 ml ESV(sp2-el) 43.4 ml EF(MOD-sp2) 57.2 % EF(sp2-el) 58.2 % LVLd %diff -10.08 % EDV(MOD-bp) 105.6 ml LVLs %diff -22.88 % ESV(MOD-bp) 48.0 ml EF(MOD-bp) 54.5 % SV(MOD-sp4) 64.3 ml SI(MOD-sp4) 29.9 ml/m\S\2 SV(MOD-sp2) 58.9 ml SI(MOD-sp2) 27.3 ml/m\S\2 SV(MOD-bp) 57.6 ml SI(MOD-bp) 26.8 ml/m\S\2 SV(sp4-el) 64.7 ml SI(sp4-el) 30.0 ml/m\S\2 SV(sp2-el) 60.5 ml SI(sp2-el) 28.1 ml/m\S\2 Doppler Measurements and Calculations MV E max gilma 142.9 cm/sec MV A max gilma 176.3 cm/sec MV E/A 0.81 MV P1/2t max gilma 152.7 cm/sec MV P1/2t 77.3 msec MVA(P1/2t) 2.8 cm\S\2 MV dec slope 578.7 cm/sec\S\2 MV dec time 0.24 sec Ao V2 max 436.8 cm/sec Ao max PG 76.3 mmHg Ao max PG (full) 73.4 mmHg Ao V2 mean 328.4 cm/sec Ao mean PG 48.3 mmHg Ao mean PG (full) 46.5 mmHg Ao V2 VTI 111.0 cm POLLY(I,A) 0.71 cm\S\2 POLLY(I,D) 0.71 cm\S\2 POLLY(V,A) 0.72 cm\S\2 POLLY(V,D) 0.72 cm\S\2 LV V1 max PG 2.9 mmHg LV V1 mean PG 1.8 mmHg LV V1 max 84.9 cm/sec LV V1 mean 63.8 cm/sec LV V1 VTI 21.3 cm SV(LVOT) 79.0 ml SI(LVOT) 36.7 ml/m\S\2
== END | disposition home or self-care (01) ==
LOC: C.CPL 12:21
PROVIDERS: ATTEND Internal Medicine
DX: Z01.810 Encounter for preprocedural cardiovascular examination (principal); I35.0 Nonrheumatic aortic (valve) stenosis

== ENCOUNTER 2020-04-13 21:45 | Inpatient (IN) ==
[2020-04-13] MEDS ORDERED: ALBUT/IPRATROP 3MG/0.5MG NEB 3 ML VIAL INH STA (22:09)
[2020-04-13] MEDS ORDERED: ALBUT/IPRATROP 3MG/0.5MG NEB 3 ML VIAL ONE (22:09)
[2020-04-13] MEDS ORDERED: methylPREDNISolone 125 MG/2 ML VIAL IV STA (22:09)
--- NOTE | 2020-04-13 22:09 | Emergency Department Note ---
Impression & Plan Hypoxia, SOB (shortness of breath), Acute hyperglycemia, Elevated troponin I level ED Provider Note NAME: TIEN PIERCE AGE: 74 SEX: M : 1945 ARRIVES VIA: Ambulance INFORMANT: Patient, ED PROVIDER(S): Link Hall MD Chief Complaint: Shortness of breath HPI: Patient presents with concern for shortness of breath. The patient states it has been constant and sudden onset beginning several hours prior to arrival. Patient denies any cough. Patient denies any coronavirus contacts or recent travel. The patient denies any chest pain. The patient does complain is mild and indigestion. Patient did try taking Tums without much relief. Patient does have a known history of COPD and CHF. The patient does have lower extremity swelling. The patient believes that this is similar to when he has had lung issues. Patient is a former smoker. ROS: See HPI for pertinent positives and negatives. A total of 10 systems were reviewed and otherwise negative. Past medical history: See below Surgical history: See below Social history: See below Physical Exam: GENERAL: Moderate distress, tachypnea noted. Nasal cannula in place. EYE EXAM: Normal conjunctiva. PERRL, no anisocoria and EOM's grossly intact w/o pain. NECK: Supple, no nuchal rigidity, no adenopathy, non-tender. No signs of meningismus. LUNGS: Decreased air movement, scant wheezing noted. Tachypnea noted. HEART: Tachycardic and regular, no MRG. ABDOMEN: Abdomen soft, non-tender, normo-active bowel sounds, no masses, no rebound or guarding. BACK: No CVA TTP. SKIN: No rashes and no bruising. UPPER EXTREMITIES: Upper extremities are grossly normal. LOWER EXTREMITIES: Grossly normal, 1+ edema bilaterally without erythema. Negative Homans sign bilaterally. NEURO EXAM: A&O x3, cranial nerves II-XII grossly intact, normal speech, moves all 4 extremities on command w/o issue. Differential diagnoses: Reactive airway disease, pneumonia, pneumothorax, COPD, CHF, infections, cardiac ischemia, pulmonary embolism, musculoskeletal, gastrointestinal, as well as other pathologies. Course: Patient was seen and evaluated the bedside. Full history physical exam was performed. EKG: Indication: Shortness of breath Sinus tachycardia, rate of 106, wide QRS, left bundle branch block pattern, elevations in aVR with depressions in the lateral and inferior leads. These do appear to be new changes from February 26, 2020. Imaging Studies: Radiology results as stated below per my review in the radiologist's interpretation: XR chest 1V portable HISTORY: Dyspnea COMPARISON: Chest 02/26/2020. FINDINGS: The heart remains enlarged. Small bilateral pleural effusions and bibasilar densities have improved. There is bilateral hilar enlargement. Progressive interstitial vascular thickening suggestive of pulmonary edema. No pneumothorax. IMPRESSION: 1. Mild to moderate interstitial pulmonary edema which has progressed. 2. Small bilateral pleural effusions and bibasilar densities have improved. 3. Bilateral hilar enlargement, unchanged. ACT 112: Negative or not required by law. Electronically signed by: Nikhil Louise M.D. 04/13/2020 10:34 PM Dictated: 04/13/202231 Transcribed: 04/13/202231 Cardiac monitoring: An order was placed for continuous cardiac monitoring. The monitor shows a rate of 100 with sinus tachycardia rhythm. MDM: Patient was seen at the behest of nursing as the patient was reportedly air hu ngry and tachypneic. After initial presentation the patient was complaining of shortness of breath with indigestion. The patient was immediately placed on BiPAP as he seemed to have poor air movement. The patient did state that he had some lower extremity swelling but this was chronic. Patient denies any prior history of CAD. Patient's initial EKG did show elevations in aVR with: Inferior leads. I did speak with the on-call interventionalists Dr. Mendez who kindly reviewed the patient's EKGs and agree that they were mildly changed however this may be more related to the patient's left bundle branch block as well as his respiratory distress. Patient does chronically wear 3 L but was in the mid 80s on 3 L. The patient did have a tracely elevated troponin. I did convey this to Dr. Mendez. The patient did feel improved on the BiPAP believe this is more related to his respiratory issues. Patient's chest x-ray does show some pulmonary edema. The patient was given a small dose of Lasix to help improve this after he had already received a breathing treatment as well as a dose of st eroids due to the concern for his possible concomitant COPD. Initial white count of 9000. Hemoglobin chronic anemia and stable. The patient did have an initial VBG which shows a relatively normal pH with an elevated PCO2 which would be consistent with chronic COPD. Patient does have an elevated blood glucose. Patient's anion gap is normal. Do not believe the patient is in DKA. BNP slightly elevated along with detectable troponin. I did speak with the on-call hospitalist and the patient was subsequently admitted to Dr. Cabrera. Did review the patient's repeat laboratory work noting that the patient's repeat troponin was 70. I did call Dr. Cabrera as the patient was no longer in the emergency department to inform him of the lab value. Critical Care: I have personally spent 46 minutes of critical care time in direct management of this patient. This includes bedside care, interpretation of diagnostic studies, and testing, discussion with consultants, patient, and family members, and other require inpatient management activities. This 46 minutes is in excess of all [facility] billable procedures. Past Med/Surg History Social History Preferred Language: Serbian Communication Ability: Effective Visual Impairment: No Limitations Breeding Manager Required: No Beliefs That Will Affect Care: None Current Living Situation: Spouse Other Information That Helps Us Care for You: No Feels Safe at Home: Yes Safety Concerns: Feels Safe At This Time Smoking Status: Former smoker Tobacco Type: cigarettes ; Cigarettes Per Day: 20 ; Do You Dip or Chew Tobacco: No ; Second Hand Exposure: No ; Tobacco Cessation Education Requested by Patient: No Hx Alcohol Use: No Hx Substance Use: No Allergies Allergies Allergy/AdvReac Type Severity Reaction Status Date / Time No Known Allergies Allergy Verified 04/14/20 00:08 Home Meds Home Medications Medication Instructions Recorded Confirmed aspirin [Aspir-81] 81 mg PO DAILY 07/22/18 04/14/20 furosemide 40 mg PO DAILY 07/22/18 04/14/20 losartan 25 mg PO DAILY 07/22/18 04/14/20 calcium carbonate [Calcium 600] 600 mg PO DAILY 10/14/18 04/14/20 magnesium 250 mg PO DAILY 10/14/18 04/14/20 spironolactone 25 mg PO DAILY 10/14/18 04/14/20 calcium carbonate [Tums Ultra] 400 mg PO QID PRN 02/26/20 04/14/20 docusate sodium [Colace] 100 mg PO BID 02/26/20 04/14/20 ferrous sulfate 325 mg PO BID 02/26/20 04/14/20 fluticasone propion-salmeterol 1 inh INHALATION BID 02/26/20 04/14/20 [Gabriellaxela Inhub] diltiazem HCl 120 mg PO DAILY 04/14/20 04/14/20 meclizine 12.5 mg PO DIRECTED PRN 04/14/20 04/14/20 metolazone 2.5 mg PO DIRECTED 04/14/20 04/14/20 Previous Rx's Medication Instructions Recorded potassium chloride [Klor-Con M20] 20 meq PO DAILY #7 tab 02/26/20 Results & Data (ED) Vital Signs Vital Signs - 24 hr 04/13/20 22:12 04/13/20 22:16 04/13/20 22:34 Temperature 36.7 C Temperature Source Oral Pulse Rate 108 H 99 H Pulse Rate [Right Finger] 99 H 86 Pulse Rate from SpO2 Sensor Respiratory Rate 22 28 H 18 Respiratory Effort / Characteristics Labored Short of Breath Tripoding Spontaneous Labored Short of Breath Non-Labored Respiratory Depth Shallow Deep Normal Respiratory Pattern Tachypnea Regular Blood Pressure 96/56 L Blood Pressure [Right Arm] 92/47 L Blood Pressure Mean 69 Blood Pressure Mean [Right Arm] 62 Blood Pressure Position [Right Arm] Sitting Pulse Oximetry 98 97 100 Oxygen Delivery Method Non-rebreather Ambu-Bag BiPAP Oxygen Flow Rate 15 Fraction of Inspired Oxygen 40 40 SaO2/FiO2 Ratio 250 Sepsis Recent Fever Within 48 Hours No Sepsis New/Unexplained Change in Mental Status No Sepsis Action Taken by Nursing No Action Required 04/13/20 23:01 04/13/20 23:30 Temperature Temperature Source Pulse Rate 86 87 Pulse Rate [Right Finger] Pulse Rate from SpO2 Sensor 86 87 Respiratory Rate 15 15 Respiratory Effort / Characteristics Respiratory Depth Respiratory Pattern Blood Pressure 92/41 L 102/42 L Blood Pressure [Right Arm] Blood Pressure Mean 61 76 Blood Pressure Mean [Right Arm] Blood Pressure Position [Right Arm] Pulse Oximetry 100 100 Oxygen Delivery Method BiPAP BiPAP Oxygen Flow Rate Fraction of Inspired Oxygen SaO2/FiO2 Ratio Sepsis Recent Fever Within 48 Hours Sepsis New/Unexplained Change in Mental Status Sepsis Action Taken by Nursing Laboratory Data Result diagrams: 04/14/20 02:07 04/14/20 02:07 Lab Results 04/13/20 04/13/20 04/13/20 Range/Units 21:05 21:05 22:19 WBC 9.82 (4.8-10.8) K/uL RBC 2.80 L (4.7-6.1) M/uL Hgb 8.3 L (14.0-18.0) g/dL POC Hgb 9.5 L (14.0-18.0) g/dl Hct 28.0 L (42-52) % POC Hct 28 L (42-52) % MCV 100.0 (80-100) fL MCH 29.6 (25-34) pg MCHC 29.6 L (32-36) g/dL Plt Count 411 H (130-400) K/uL Immature Gran % (Auto) 0.5 % Neut % (Auto) 83.4 % Lymph % (Auto) 8.7 % Rutherford % (Auto) 5.5 % Eos % (Auto) 1.5 % Baso % (Auto) 0.4 % Immature Gran # (Auto) 0.05 H (0.00-0.02) K/uL Neut # (Auto) 8.19 H (1.4-6.5) K/uL Lymph # (Auto) 0.85 L (1.2-3.4) K/uL Rutherford # (Auto) 0.54 (0.11-0.59) K/uL Eos # (Auto) 0.15 (0-0.5) K/uL Baso # (Auto) 0.04 (0-0.2) K/uL PT (9.0-12.0) Seconds INR (0.9-1.1) APTT (21.0-31.0) Seconds PTT Ratio VBG pH (7.36-7.41) VBG pCO2 (38-50) mmHg VBG pO2 mmHg VBG HCO3 mmol/L VBG O2 Saturation % VBG Base Excess mEq/L Barometric Pressure mm/Hg POC Sodium 130 L (135-144) mmol/L Sodium 133 L (136-145) mmol/L POC Potassium 4.3 (3.3-5.0) mmol/L Potassium 4.4 (3.5-5.1) mmol/L POC Chloride 80 L (101-112) mmol/L Chloride 82 L (98-107) mmol/L Carbon Dioxide 37 H (21-32) mmol/L POC Total CO2 37 H (24-31) mmol/L Anion Gap 14.0 H (3-11) POC Anion Gap 18.0 (16-25) mmol/L POC BUN 41 H (7-18) mg/dl BUN 44 H (7-18) mg/dl Creatinine 2.46 H (0.6-1.4) mg/dl POC Creatinine 2.4 H (0.6-1.3) mg/dl Est Cr Clr Drug Dosing 29.5 ml/min Est GFR ( Amer) 28.4 Est GFR (Non-Af Amer) 24.5 BUN/Creatinine Ratio 17.8 (10-20) Glucose 357 H* (70-99) mg/dl POC Glucose (other) 353 H* (70-99) mg/dl Calcium 10.6 H (8.5-10.1) mg/dl POC Ioniz Calcium Stacia 1.27 (1.12-1.32) mmol/l Magnesium 2.7 H (1.8-2.4) mg/dl Total Bilirubin 0.3 (0.2-1) mg/dl AST 39 H (15-37) U/L ALT 35 (12-78) U/L Alkaline Phosphatase 75 (45-117) U/L POC Troponin I (0-0.045) ng/ml Troponin I 0.546 H* (0-0.045) ng/ml NT-Pro-B Natriuret Pep 4924 H (0-1800) pg/ml Total Protein 6.9 (6.4-8.2) gm/dl Albumin 3.5 (3.4-5.0) gm/dl Globulin 3.4 (2.5-4.0) gm/dl Albumin/Globulin Ratio 1.0 (0.9-2) Beta-Hydroxybutyric Acd 1.30 (0.2-2.81) mg/dl 04/13/20 04/13/20 04/13/20 Range/Units 22:20 22:35 22:35 WBC (4.8-10.8) K/uL RBC (4.7-6.1) M/uL Hgb (14.0-18.0) g/dL POC Hgb (14.0-18.0) g/dl Hct (42-52) % POC Hct (42-52) % MCV (80-100) fL MCH (25-34) pg MCHC (32-36) g/dL Plt Count (130-400) K/uL Immature Gran % (Auto) % Neut % (Auto) % Lymph % (Auto) % Rutherford % (Auto) % Eos % (Auto) % Baso % (Auto) % Immature Gran # (Auto) (0.00-0.02) K/uL Neut # (Auto) (1.4-6.5) K/uL Lymph # (Auto) (1.2-3.4) K/uL Rutherford # (Auto) (0.11-0.59) K/uL Eos # (Auto) (0-0.5) K/uL Baso # (Auto) (0-0.2) K/uL PT 11.4 (9.0-12.0) Seconds INR 1.1 (0.9-1.1) APTT 20.9 L (21.0-31.0) Seconds PTT Ratio 0.7 VBG pH 7.32 L (7.36-7.41) VBG pCO2 87 H (38-50) mmHg VBG pO2 36 mmHg VBG HCO3 44 mmol/L VBG O2 Saturation < 60.0 % VBG Base Excess 15.6 mEq/L Barometric Pressure 734.2 mm/Hg POC Sodium (135-144) mmol/L Sodium (136-145) mmol/L POC Potassium (3.3-5.0) mmol/L Potassium (3.5-5.1) mmol/L POC Chloride (101-112) mmol/L Chloride (98-107) mmol/L Carbon Dioxide (21-32) mmol/L POC Total CO2 (24-31) mmol/L Anion Gap (3-11) POC Anion Gap (16-25) mmol/L POC BUN (7-18) mg/dl BUN (7-18) mg/dl Creatinine (0.6-1.4) mg/dl POC Creatinine (0.6-1.3) mg/dl Est Cr Clr Drug Dosing ml/min Est GFR ( Amer) Est GFR (Non-Af Amer) BUN/Creatinine Ratio (10-20) Glucose (70-99) mg/dl POC Glucose (other) (70-99) mg/dl Calcium (8.5-10.1) mg/dl POC Ioniz Calcium Stacia (1.12-1.32) mmol/l Magnesium (1.8-2.4) mg/dl Total Bilirubin (0.2-1) mg/dl AST (15-37) U/L ALT (12-78) U/L Alkaline Phosphatase (45-117) U/L POC Troponin I 0.34 H (0-0.045) ng/ml Troponin I (0-0.045) ng/ml NT-Pro-B Natriuret Pep (0-1800) pg/ml Total Protein (6.4-8.2) gm/dl Albumin (3.4-5.0) gm/dl Globulin (2.5-4.0) gm/dl Albumin/Globulin Ratio (0.9-2) Beta-Hydroxybutyric Acd (0.2-2.81) mg/dl Administered Medications Insulin Aspart (Novolog Flexpen) 0 units SC ACHS MARZENA Stop: 05/14/20 02:29 Last Admin: 04/14/20 03:11 Dose: 3 units Documented by: [id number] Cosigned by: [id number] Discontinued Medications Albuterol (Duoneb) Confirm Administered Dose 12 ml .ROUTE .STK-MED ONE Stop: 04/13/20 22:10 Last Admin: 04/13/20 22:29 Dose: Not Given Documented by: [id number] Albuterol (Duoneb) 12 ml INH ONE STA Stop: 04/13/20 22:10 Last Admin: 04/13/20 22:15 Dose: 12 ml Documented by: [id number] Furosemide (Lasix) 20 mg IV NOW STA Stop: 04/13/20 23:24 Last Admin: 04/14/20 00:29 Dose: 20 mg Documented by: [id number] Furosemide (Lasix) 40 mg IV QAM STA Stop: 04/14/20 02:42 Last Admin: 04/14/20 02:53 Dose: 40 mg Documented by: [id number] Insulin Human Regular (Novolin R U-100 Per Unit) 6 units IV NOW STA Stop: 04/14/20 00:13 Last Admin: 04/14/20 00:22 Dose: Not Given Documented by: [id number] Methylprednisolone (Solumedrol) 60 mg IV NOW STA Stop: 04/13/20 22:10 Last Admin: 04/13/20 22:29 Dose: 60 mg Documented by: [id number] Discharge Plan Visit Data *Final* Discharge Date/Time: 04/14/20 00:36 Chief Complaint: Shortness of Breath/Dyspnea Stated Complaint: sob ED Provider: Link Hall Discharge Problem: Hypoxia, SOB (shortness of breath), Acute hyperglycemia, Elevated troponin I level Patient Disposition: Admitted As Inpatient Discharge Instructions Interventions: ED Discharge Assessment Last Done: 04/14/20 00:36
[2020-04-13 22:32] LABS: iSTAT Creatinine 2.4 mg/dl (0.6-1.3); iSTAT Hemoglobin 9.5 g/dl (14.0-18.0); iSTAT Ionized Calcium 1.27 mmol/l (1.12-1.32); iSTAT Potassium 4.3 mmol/L (3.3-5.0)
--- NOTE | 2020-04-13 22:35 | XRay Report ---
XR chest 1V portable HISTORY: Dyspnea COMPARISON: Chest 02/26/2020. FINDINGS: The heart remains enlarged. Small bilateral pleural effusions and bibasilar densities have improved. There is bilateral hilar enlargement. Progressive interstitial vascular thickening suggesti ve of pulmonary edema. No pneumothorax. IMPRESSION: 1. Mild to moderate interstitial pulmonary edema which has progressed. 2. Small bilateral pleural effusions and bibasilar densities have improved. 3. Bilateral hilar enlargement, unchanged. ACT 112: Negative or not required by law. Electronically signed by: Nikhil Louise M.D. 04/13/2020 10:34 PM
[2020-04-13 22:44] LABS: Albumin Level 3.5 gm/dl (3.4-5.0); BUN Creatinine Ratio 17.8 (10-20); Bilirubin,Total 0.3 mg/dl (0.2-1); Calcium 10.6 mg/dl (8.5-10.1); Creatinine Clr Calc Pharmacy 29.5 ml/min; Est GFR (African American) 28.4; Est GFR (Non-African American) 24.5; Globulin 3.4 gm/dl (2.5-4.0); Magnesium 2.7 mg/dl (1.8-2.4); Potassium 4.4 mmol/L (3.5-5.1); Total Protein 6.9 gm/dl (6.4-8.2); Troponin I 0.546 ng/ml (0-0.045)
[2020-04-13 22:48] LABS: Base Excess VBG 15.6 mEq/L; HCO3 VBG 44 mmol/L; PCO2 VBG 87 mmHg (38-50); PO2 VBG 36 mmHg; pH VBG 7.32 (7.36-7.41)
[2020-04-13 22:49] LABS: Basophils # (auto) 0.04 K/uL (0-0.2); Basophils % (auto) 0.4 %; Eosinophils # (auto) 0.15 K/uL (0-0.5); Eosinophils % (auto) 1.5 %; Hemoglobin 8.3 g/dL (14.0-18.0); Immature Granulocytes # (auto) 0.05 K/uL (0.00-0.02); Immature Granulocytes % (auto) 0.5 %; Lymphocytes # (auto) 0.85 K/uL (1.2-3.4); Lymphocytes % (auto) 8.7 %; Mean Corpuscular Hemoglobin 29.6 pg (25-34); Mean Corpuscular Hgb Conc 29.6 g/dL (32-36); Monocytes # (auto) 0.54 K/uL (0.11-0.59); Monocytes % (auto) 5.5 %; Neutrophils # (auto) 8.19 K/uL (1.4-6.5); Neutrophils % (auto) 83.4 %; Platelet Count 411 K/uL (130-400); White Blood Count 9.82 K/uL (4.8-10.8)
[2020-04-13 22:49] LABS: Oxygen Saturation VBG < 60.0 %
[2020-04-13 22:55] LABS: INR 1.1 (0.9-1.1); Partial Thromboplastin Ratio 0.7; Partial Thromboplastin Time 20.9 Seconds (21.0-31.0); Prothrombin Time 11.4 Seconds (9.0-12.0)
[2020-04-13 22:59] LABS: Beta-Hydroxybutyrate 1.3 mg/dl (0.2-2.81)
[2020-04-13] MEDS ORDERED: FUROSEMIDE 40 MG/4 ML VIAL IV STA (23:23)
--- NOTE | 2020-04-13 23:44 | History & Physical Report ---
Date of Service April 13, 2020 Assessment & Plan (1) Acute on chronic respiratory failure with hypoxia: Acute on chronic respiratory failure with hypoxia/acute on chronic diastolic CHF/non-STEMI/aortic stenosis- The patient will be admitted to telemetry for serial cardiac enzymes, serial EKG's, cardiac rhythm monitoring and a 2-D echocardiogram with Dopplers. Continue BiPAP at current settings. Once improved, will convert to nasal cannula oxygen Important to maintain adequate hemoglobin in light of aortic stenosis. Type and screen. Expect that patient will need transfusion in the a.m. Patient did receive Lasix 20 mg IV in ED, will give 40 mg IV in the a.m, as pressure is borderline at this time. Present on Admission?: Yes (2) Acute on chronic diastolic (congestive) heart failure: See above Present on Admission?: Yes (3) Non-STEMI (non-ST elevated myocardial infarction): See above Consult cardiology Present on Admission?: Yes (4) Anemia: Hemoccult stools. Hemoglobin 8.3 upon admission, with range 8.4-13.0. Consult GI, has been seen for EGD and colonoscopy in 2018. Concerns regarding anemia and degree of aortic stenosis. Type and screen Placed on pantoprazole 40 mg IV daily Present on Admission?: Yes (5) Acute hyperglycemia: Glucose 357 upon admission. Check hemoglobin A1c. Placed on Accu-Cheks before meals and at bedtime with NovoLog coverage per scale Present on Admission?: Yes (6) Acute kidney injury: Creatinine 2.46 upon admission, with most recent 1.16. Likely associated with decreased forward flow. Repeat laboratories in a.m. Hold spironolactone, potassium chloride, metolazone, losartan and oral furosemide. Present on Admission?: Yes History of Present Illness Chief Complaint: The patient presents to the emergency department for assessment of complaint of shortness of breath. Primary Care Provider: Robert Owen MD The patient is a 74-year-old male with a past medical history including acute on chronic diastolic heart failure, chronic respiratory failure with hypoxia, tobacco use disorder, COPD, hypertension, history of GI bleed, carotid artery disease status post left CEA, hypertension, and aortic stenosis. He presents to the emergency department with the acute onset of shortness of breath that began several hours prior to arrival. He denies any recent travels or sick exposures, including to coronavirus. He has no associated chest pain. He does report some lower extremity edema that has happened in the past associated with previous episodes of shortness of breath. Has a history of tobacco use but not now. Allergies Allergy/AdvReac Type Severity Reaction Status Date / Time No Known Allergies Allergy Verified 04/14/20 00:08 Home Medications Home Medications Medication Instructions Recorded Confirmed Type aspirin [Aspir-81] 81 mg PO DAILY 07/22/18 04/14/20 History furosemide 40 mg PO DAILY 07/22/18 04/14/20 History losartan 25 mg PO DAILY 07/22/18 04/14/20 History calcium carbonate [Calcium 600] 600 mg PO DAILY 10/14/18 04/14/20 History magnesium 250 mg PO DAILY 10/14/18 04/14/20 History spironolactone 25 mg PO DAILY 10/14/18 04/14/20 History calcium carbonate [Tums Ultra] 400 mg PO QID PRN 02/26/20 04/14/20 History docusate sodium [Colace] 100 mg PO BID 02/26/20 04/14/20 History ferrous sulfate 325 mg PO BID 02/26/20 04/14/20 History fluticasone propion-salmeterol 1 inh INHALATION BID 02/26/20 04/14/20 History [Wixela Inhub] potassium chloride [Klor-Con M20] 20 meq PO DAILY #7 tab 02/26/20 04/14/20 Rx diltiazem HCl 120 mg PO DAILY 04/14/20 04/14/20 History meclizine 12.5 mg PO DIRECTED PRN 04/14/20 04/14/20 History metolazone 2.5 mg PO DIRECTED 04/14/20 04/14/20 History Past Med/Surg History Social History Preferred Language: Persian Communication Ability: Effective Visual Impairment: No Limitations Mechanic Insulator Required: No Beliefs That Will Affect Care: None Current Living Situation: Spouse Other Information That Helps Us Care for You: No Feels Safe at Home: Yes Safety Concerns: Feels Safe At This Time Smoking Status: Former smoker Tobacco Type: cigarettes ; Cigarettes Per Day: 20 ; Do You Dip or Chew Tobacco: No ; Second Hand Exposure: No ; Tobacco Cessation Education Requested by Patient: No Hx Alcohol Use: No Hx Substance Use: No Review of Systems Review of Systems: The patient denies chest pain, palpitations, cough, sore throat, fevers, chills, sweats, weight change, fatigue, nausea, vomiting, diarrhea , constipation, abdominal pain, pelvic pain, blood in urine or stool, dysuria, urinary frequency or urgency, lightheadedness, dizziness, headache, memory loss, loss of consciousness, rash, abnormal bruising or bleeding, imbalance, focal or generalized weakness, numbness or tingling in arms or legs, generalized arthralgias or myalgias, back or neck pain, or night sweats. The review of systems is otherwise negative other than for that already noted above, and at least 10 systems have been reviewed. Physical Exam Physical Exam: The patient is awake, alert and oriented 3, well developed and well nourished, normocephalic and atraumatic, lying in bed and in no acute distress. HEENT--PERRL, EOMI, mucous membranes and oropharynx normal. Neck--supple. No JVD. No bruits. Thyroid normal, trachea midline, no adenopathy. Heart--normal S1 and S2. No murmurs, rubs or gallops. Lungs--crackles at the bases bilaterally no respiratory distress, no accessory muscle use. Abdomen--normal bowel sounds and soft. Nontender. Nondistended. Extremities--no cyanosis or clubbing. 2+ bilateral pretibial pitting edema. Dermatologic--normal skin turgor, normal color, no abnormal lymph nodes, no rash. Neurologic--cranial nerves II through XII grossly intact. Rheumatologic--normal range of motion. Psychiatric--normal affect. Results & Data Results & Data ([facility]) Vital Signs (Past 12 Hours) Vital Signs Temp Pulse Pulse Resp BP BP Pulse Ox 04/13/20 23:01 86 15 92/41 L 100 04/13/20 22:34 86 18 92/47 L 100 04/13/20 22:16 99 H 99 H 28 H 97 04/13/20 22:12 98.1 F 108 H 22 96/56 L 98 Laboratory Results Laboratory Results WBC 19.45 K/uL (4.8-10.8) H 04/14/20 02:07 RBC 2.69 M/uL (4.7-6.1) L 04/14/20 02:07 Hgb 8.0 g/dL (14.0-18.0) L 04/14/20 02:07 POC Hgb 9.2 g/dl (14.0-18.0) L 04/13/20 23:43 Hct 26.2 % (42-52) L 04/14/20 02:07 POC Hct 27 % (42-52) L 04/13/20 23:43 MCV 97.4 fL (80-100) 04/14/20 02:07 MCH 29.7 pg (25-34) 04/14/20 02:07 MCHC 30.5 g/dL (32-36) L 04/14/20 02:07 RDW Std Deviation 49.0 fL (36.4-46.3) H 04/14/20 02:07 RDW Coeff of Vesta 14.0 % (11.5-14.5) 04/14/20 02:07 Plt Count 354 K/uL (130-400) 04/14/20 02:07 MPV 10.2 fL (7.4-10.4) 04/14/20 02:07 Immature Gran % (Auto) 0.3 % 04/14/20 02:07 Neut % (Auto) 93.7 % 04/14/20 02:07 Lymph % (Auto) 3.0 % 04/14/20 02:07 [place] % (Auto) 2.8 % 04/14/20 02:07 Eos % (Auto) 0.1 % 04/14/20 02:07 Baso % (Auto) 0.1 % 04/14/20 02:07 Immature Gran # (Auto) 0.05 K/uL (0.00-0.02) H 04/14/20 02:07 Neut # (Auto) 18.25 K/uL (1.4-6.5) H 04/14/20 02:07 Lymph # (Auto) 0.58 K/uL (1.2-3.4) L 04/14/20 02:07 [place]eton # (Auto) 0.54 K/uL (0.11-0.59) 04/14/20 02:07 Eos # (Auto) 0.01 K/uL (0-0.5) 04/14/20 02:07 Baso # (Auto) 0.02 K/uL (0-0.2) 04/14/20 02:07 PT 11.5 Seconds (9.0-12.0) 04/14/20 02:07 INR 1.1 (0.9-1.1) 04/14/20 02:07 APTT 23.2 Seconds (21.0-31.0) 04/14/20 02:07 PTT Ratio 0.8 04/14/20 02:07 POC pH 7.39 (7.35-7.45) 04/13/20 23:43 POC pCO2 71 mmHg (35-46) H 04/13/20 23:43 POC pO2 93 mmHg (80-95) 04/13/20 23:43 POC HCO3 43 amy/L (19-24) H 04/13/20 23:43 POC Total CO2 > 40 mmol/L (24-31) H* 04/13/20 23:43 POC Base Excess 18.0 amy/L (-9-1.8) H 04/13/20 23:43 POC ABG O2 Sat 97.0 % (90-95) H 04/13/20 23:43 VBG pH 7.32 (7.36-7.41) L 04/13/20 22:35 VBG pCO2 87 mmHg (38-50) H 04/13/20 22:35 VBG pO2 36 mmHg 04/13/20 22:35 VBG HCO3 44 mmol/L 04/13/20 22:35 VBG O2 Saturation < 60.0 % 04/13/20 22:35 VBG Base Excess 15.6 mEq/L 04/13/20 22:35 Barometric Pressure 734.2 mm/Hg 04/13/20 22:35 POC Sodium 131 mmol/L (135-144) L 04/13/20 23:43 Sodium 134 mmol/L (136-145) L 04/14/20 02:07 POC Potassium 3.8 mmol/L (3.3-5.0) 04/13/20 23:43 Potassium 4.0 mmol/L (3.5-5.1) 04/14/20 02:07 POC Chloride 80 mmol/L (101-112) L 04/13/20 22:19 Chloride 84 mmol/L (98-107) L 04/14/20 02:07 Carbon Dioxide 40 mmol/L (21-32) H 04/14/20 02:07 POC Total CO2 37 mmol/L (24-31) H 04/13/20 22:19 Anion Gap 10.0 (3-11) 04/14/20 02:07 POC Anion Gap 18.0 mmol/L (16-25) 04/13/20 22:19 POC BUN 41 mg/dl (7-18) H 04/13/20 22:19 BUN 51 mg/dl (7-18) H 04/14/20 02:07 Creatinine 2.43 mg/dl (0.6-1.4) H 04/14/20 02:07 POC Creatinine 2.4 mg/dl (0.6-1.3) H 04/13/20 22:19 Est Cr Clr Drug Dosing 29.9 ml/min 04/14/20 02:07 Est GFR ( Amer) 28.8 04/14/20 02:07 Est GFR (Non-Af Amer) 24.9 04/14/20 02:07 BUN/Creatinine Ratio 21.0 (10-20) H 04/14/20 02:07 Glucose 210 mg/dl (70-99) H 04/14/20 02:07 POC Glucose 220 mg/dl (70-99) H 04/14/20 02:58 POC Glucose (other) 353 mg/dl (70-99) H* 04/13/20 22:19 Calcium 10.8 mg/dl (8.5-10.1) H 04/14/20 02:07 POC Ioniz Calcium Stacia 1.27 mmol/l (1.12-1.32) 04/13/20 22:19 Magnesium 2.6 mg/dl (1.8-2.4) H 04/14/20 02:07 Total Bilirubin 0.3 mg/dl (0.2-1) 04/14/20 02:07 AST 379 U/L (15-37) H 04/14/20 02:07 ALT 65 U/L (12-78) 04/14/20 02:07 Alkaline Phosphatase 61 U/L (45-117) 04/14/20 02:07 POC Troponin I 0.34 ng/ml (0-0.045) H 04/13/20 22:20 Troponin I 71.200 ng/ml (0-0.045) H* 04/14/20 02:07 NT-Pro-B Natriuret Pep 4924 pg/ml (0-1800) H 04/13/20 21:05 Total Protein 6.9 gm/dl (6.4-8.2) 04/14/20 02:07 Albumin 3.5 gm/dl (3.4-5.0) 04/14/20 02:07 Globulin 3.4 gm/dl (2.5-4.0) 04/14/20 02:07 Albumin/Globulin Ratio 1.0 (0.9-2) 04/14/20 02:07 Beta-Hydroxybutyric Acd 1.30 mg/dl (0.2-2.81) 04/13/20 21:05 Diagnostic Findings [place], [place] [phone] XRay Report Patient: TIEN PIERCE Date: 04/13/20 MR#: [id number]: [address] Acct ID:[id number]: [address] Date: 1945[facility] Zip: [place] [address] Age: 74Location: ED Sex: M Room/Bed: Att Phy:Diagnosis: sob Gretta Phy: Robert Anguiano M.D.Service Date: 04/13/20 Fam Phy:Interpreting Phy: Nikhil Louise MD Admit Phy: Ordering Phy: Link Hall MD cc: ~ XR chest 1V portable HISTORY: Dyspnea COMPARISON: Chest 02/26/2020. FINDINGS: The heart remains enlarged. Small bilateral pleural effusions and bibasilar densities have improved. There is bilateral hilar enlargement. Progressive interstitial vascular thickening suggestive of pulmonary edema. No pneumothorax. IMPRESSION: 1. Mild to moderate interstitial pulmonary edema which has progressed. 2. Small bilateral pleural effusions and bibasilar densities have improved. 3. Bilateral hilar enlargement, unchanged. ACT 112: Negative or not required by law. Electronically signed by: Nikhil Louise M.D. 04/13/2020 10:34 PM Dictated: 04/13/202231 Transcribed: 04/13/202231 Code Status & VTE Plan Code Status Full code VTE Prophylaxis Plan VTE Prophylaxis will be ordered: Yes PG Care Time/CCT Total # of Minutes Spent Total Time Spent with Patient: Total time spent is greater than 50% in coordination of care (as documented) at patient's floor/unit and/or counseling patient: Coding Level of Care Code 26406 Initial Inpt Care Lvl 3 Diagnoses Acute on chronic respiratory failure with hypoxia J96.21 Acute on chronic diastolic (congestive) heart failure I50.33 Non-STEMI (non-ST elevated myocardial infarction) I21.4 Anemia D64.9 Anemia type: unspecified type Acute hyperglycemia R73.9 Acute kidney injury N17.9 (1) Anemia Anemia type: unspecified type Qualified Code(s): D64.9 - Anemia, unspecified
[2020-04-13 23:59] LABS: iSTAT Arterial Blood Gas HCO3 43 meg/L (19-24); iSTAT Arterial Blood Gas pCO2 71 mmHg (35-46); iSTAT Arterial Blood Gas pH 7.39 (7.35-7.45); iSTAT Arterial Blood Gas pO2 93 mmHg (80-95); iSTAT Carbon Dioxide > 40 mmol/L (24-31); iSTAT Hematocrit 27 % (42-52); iSTAT Hemoglobin 9.2 g/dl (14.0-18.0); iSTAT Potassium 3.8 mmol/L (3.3-5.0); iSTAT Sodium 131 mmol/L (135-144)
[2020-04-14] MEDS ORDERED: Heparin IV Standard *NO* Bolus IV ONE ×2 (00:04→12:52)
[2020-04-14] MEDS ORDERED: NovoLIN-R INSULIN PER UNIT CHARGE IV STA (00:12)
[2020-04-14] MEDS ORDERED: HEPARIN SODIUM/DEXTROSE 25,000 UNITS/500 ML BAG IV SCH ×2 (00:15→13:00)
[2020-04-14] MEDS ORDERED: FUROSEMIDE 40 MG/4 ML VIAL IV STA ×2 (00:17→02:41)
[2020-04-14] MEDS ORDERED: ONDANSETRON INJ 2 MG/ML 2 ML VIAL IV PRN (01:42)
[2020-04-14] MEDS ORDERED: GLUCOSE 40% GEL 15 GM TUBE PO PRN (01:42)
[2020-04-14] MEDS ORDERED: GLUCOSE 10 TABS/TUBE PO PRN (01:42)
[2020-04-14] MEDS ORDERED: ACETAMINOPHEN 325 MG TAB PO PRN (01:42)
[2020-04-14] MEDS ORDERED: GLUCAGON FOR INJ 1 MG VIAL SQ PRN (01:42)
[2020-04-14] MEDS ORDERED: CARBOHYDRATES FOR HYPOGLYCEMIA PO PRN (01:42)
[2020-04-14] MEDS ORDERED: DEXTROSE 50% 50 ML SYRINGE IV PRN (01:42)
[2020-04-14 02:18] LABS: Basophils # (auto) 0.02 K/uL (0-0.2); Basophils % (auto) 0.1 %; Eosinophils # (auto) 0.01 K/uL (0-0.5); Eosinophils % (auto) 0.1 %; Hematocrit (blood only) 26.2 % (42-52); Immature Granulocytes # (auto) 0.05 K/uL (0.00-0.02); Immature Granulocytes % (auto) 0.3 %; Lymphocytes # (auto) 0.58 K/uL (1.2-3.4); Mean Corpuscular Hemoglobin 29.7 pg (25-34); Mean Corpuscular Hgb Conc 30.5 g/dL (32-36); Mean Corpuscular Volume 97.4 fL (80-100); Mean Platelet Volume 10.2 fL (7.4-10.4); Monocytes # (auto) 0.54 K/uL (0.11-0.59); Monocytes % (auto) 2.8 %; Neutrophils # (auto) 18.25 K/uL (1.4-6.5); Neutrophils % (auto) 93.7 %; Platelet Count 354 K/uL (130-400); Red Blood Count 2.69 M/uL (4.7-6.1); White Blood Count 19.45 K/uL (4.8-10.8)
[2020-04-14 02:28] LABS: INR 1.1 (0.9-1.1); Partial Thromboplastin Ratio 0.8; Partial Thromboplastin Time 23.2 Seconds (21.0-31.0); Prothrombin Time 11.5 Seconds (9.0-12.0)
[2020-04-14 02:46] LABS: Albumin Level 3.5 gm/dl (3.4-5.0); Calcium 10.8 mg/dl (8.5-10.1); Creatinine Clr Calc Pharmacy 29.9 ml/min; Est GFR (African American) 28.8; Est GFR (Non-African American) 24.9; Magnesium 2.6 mg/dl (1.8-2.4)
[2020-04-14 02:49] LABS: Bilirubin,Total 0.3 mg/dl (0.2-1); Globulin 3.4 gm/dl (2.5-4.0); Total Protein 6.9 gm/dl (6.4-8.2)
[2020-04-14] MEDS: INSULIN ASPART 100 UNITS/ML 3 ML PEN SC SCH ×2 (03:11→08:07)
[2020-04-14] MEDS ORDERED: PANTOprazole 40 MG in SYRINGE 0 ML IV STA (05:11)
[2020-04-14 05:32] LABS: Hematocrit (blood only) 26.3 % (42-52); Hemoglobin 8.2 g/dL (14.0-18.0)
[2020-04-14] MEDS ORDERED: SODIUM CHLORIDE 0.9% 250 ML IV PRN (06:41)
[2020-04-14 08:43] LABS: Iron 30 mcg/dl (35-175); Total Iron Binding Capacity 360 mcg/dl (250-450)
[2020-04-14] MEDS ORDERED: POTASSIUM CHLORIDE 20 MEQ TABCR PO SCH (09:00)
[2020-04-14] MEDS ORDERED: FERROUS SULFATE 325 MG TAB PO SCH (09:00)
[2020-04-14] MEDS ORDERED: ASPIRIN 81 MG ECTAB PO SCH (09:00)
[2020-04-14 09:58] LABS: Folate (Folic Acid) 13.98 ng/ml (>5.38)
--- NOTE | 2020-04-14 09:58 | Electrocardiogram Report ---
Test Reason : Blood Pressure : / mmHG Vent. Rate : 106 BPM Atrial Rate : 106 BPM P-R Int : 180 ms QRS Dur : 132 ms QT Int : 362 ms P-R-T Axes : 089 -25 156 degrees QTc Int : 480 ms Poor data quality, interpretation may be adversely affected Sinus tachycardia with frequent Premature ventricular complexes Non-specific intra-ventricular conduction block Cannot rule out Septal infarct , age undetermined ST elevation in AVR and V1 and V2 with diffuse ST depression inferolateral leads -- consider severe L eft main dz or RV infarct Abnormal ECG When compared with ECG of 26-FEB-2020 16:04, Significant changes have occurred Confirmed by Skinny Silva ([id number]) on 04/14/2020 9:57:51 AM Referred By: REFERRED SELF Confirmed By:Skinny Silva
--- NOTE | 2020-04-14 10:05 | Electrocardiogram Report ---
Test Reason : Blood Pressure : / mmHG Vent. Rate : 096 BPM Atrial Rate : 096 BPM P-R Int : 198 ms QRS Dur : 118 ms QT Int : 396 ms P-R-T Axes : 085 -31 079 degrees QTc Int : 500 ms Poor data quality, interpretation may be adversely affected Normal sinus rhythm Left axis deviation Non-specific intra-ventricular conduction delay Prolonged QT Abnormal ECG When compared with ECG of 13-APR-2020 21:58, (unconfirmed) Significant changes have occurred Confirmed by Skinny Silva ([id number]) on 04/14/2020 10:04:45 AM Referred By: REFERRED SELF Confirmed By:Skinny Silva
[2020-04-14 11:22] LABS: Estimated Average Glucose 100 mg/dl; Hemoglobin A1C 5.1 % (4.5-5.6)
[2020-04-14] MEDS ORDERED: FUROSEMIDE 20 MG in SYRINGE 0 ML IV ONE (11:55)
--- NOTE | 2020-04-14 12:11 | Cardiology Consultation ---
Date of Consultation The patient was seen this morning. He was on BiPAP at the time it looked even with BiPAP to have moderate degree of respiratory distress. He was sitting up in a chair at the time. He describes central chest pressure. He was diaphoretic. He was receiving 1 unit of packed red blood cells at the time. He noted his dyspnea was worsening. He was feeling anxious like he could not catch his breath. The history was limited due to his current medical state. He notes he has had chest tightness at home over the last number of days with increasing dyspnea. He chronically wears oxygen. In reviewing his history in June 2018 he was seen in the [facility] cardiology office for preoperative evaluation prior to right carotid endarterectomy. At the time he had severe aortic stenosis with a peak velocity of 4.3 m/s and a mean gradient of 47 mmHg. His LV function was preserved. At the time his baseline creatinine was normal at 0.8. He has had no further cardiology follow-up since his carotid endarterectomy. The rest of a complete review of systems is unobtainable April 14, 2020 History of Present Illness Attending Physician: Vangie Celestin MD Allergies Allergy/AdvReac Type Severity Reaction Status Date / Time No Known Allergies Allergy Verified 04/14/20 00:08 Home Medications Home Medications Medication Instructions Recorded Confirmed Type aspirin [Aspir-81] 81 mg PO DAILY 07/22/18 04/14/20 History furosemide 40 mg PO DAILY 07/22/18 04/14/20 History losartan 25 mg PO DAILY 07/22/18 04/14/20 History calcium carbonate [Calcium 600] 600 mg PO DAILY 10/14/18 04/14/20 History magnesium 250 mg PO DAILY 10/14/18 04/14/20 History spironolactone 25 mg PO DAILY 10/14/18 04/14/20 History calcium carbonate [Tums Ultra] 400 mg PO QID PRN 02/26/20 04/14/20 History docusate sodium [Colace] 100 mg PO BID 02/26/20 04/14/20 History ferrous sulfate 325 mg PO BID 02/26/20 04/14/20 History fluticasone propion-salmeterol 1 inh INHALATION BID 02/26/20 04/14/20 History [Wixela Inhub] potassium chloride [Klor-Con M20] 20 meq PO DAILY #7 tab 04/06/20 05/24/20 Rx diltiazem HCl 120 mg PO DAILY 04/14/20 04/14/20 History meclizine 12.5 mg PO DIRECTED PRN 04/14/20 04/14/20 History metolazone 2.5 mg PO DIRECTED 04/14/20 04/14/20 History Patient History Medical History Anemia Aortic stenosis (Chronic) severe asymptomatic Chronic obstructive pulmonary disease OXYGEN 5L/MIN NC HS Chronic shortness of breath Cigarette nicotine dependence Dependent edema PRN diuretics History of carotid artery disease S/P L CEA 2013 History of GI bleed Hypertension Surgical History History of appendectomy History of cataract surgery BILAT History of colonoscopy History of esophagogastroduodenoscopy (EGD) History of left-sided carotid endarterectomy 2013 History of tonsillectomy History of tooth extraction Toenail avulsion REMOVAL OF Social History Preferred Language: Maltese Communication Ability: Effective Visual Impairment: No Limitations Automotive 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 Parts 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 Required: No Beliefs That Will Affect Care: None marital status: Current Living Situation: Spouse Other Information That Helps Us Care for You: No Feels Safe at Home: Yes Safety Concerns: Feels Safe At This Time Smoking Status: Former smoker Tobacco Type: cigarettes ; Cigarettes Per Day: 20 ; Do You Dip or Chew Tobacco: No ; Second Hand Exposure: No ; Tobacco Cessation Education Requested by Patient: No Hx Alcohol Use: No Hx Substance Use: No Results & Data ([facility]) Vital Signs (Past 12 Hours) Vital Signs Temp Pulse Pulse Resp BP BP Pulse Ox 04/14/20 11:58 36.3 C L 96 H 24 110/57 L 96 04/14/20 11:18 97 H 24 116/67 97 04/14/20 10:48 96 H 24 115/69 97 04/14/20 10:33 97 H 22 103/57 L 96 04/14/20 10:13 36.4 C L 95 H 20 102/54 L 96 04/14/20 09:00 89 04/14/20 07:52 94 H 22 98 04/14/20 07:37 36.5 C 88 20 104/58 L 04/14/20 04:43 77 21 94 04/14/20 04:00 36.6 C 89 20 101/60 97 04/14/20 01:48 36.5 C 101 H 24 92/49 L 04/14/20 00:30 109/55 L 99 He is awake alert oriented x3 he is appropriately anxious. He is in a moderate degree of distress with BiPAP on HEENT: Moderately reduced carotid upstrokes in the face of tachycardia Lungs: Markedly decreased breath sounds bilaterally no rales rhonchi or wheezing Heart: Tachycardic (sinus) with a crescendo decrescendo murmur 3 out of 6 which is late peaking S2 was substantially reduced Abdomen: Soft nontender distended positive bowel sounds Extremities: Trace to mild bilateral lower extremity edema Psychiatric he was anxious neurologic he is awake alert and oriented x3 and mo ves all extremities His EKG was reviewed and read from last night which is consistent with ST elevation in aVR V1 and V2 with marked ST depression in the inferior lateral leads consistent with an ST elevation OK His labs were reviewed Impressions: #[address] elevation myocardial infarction given the concern for left main or triple-vessel disease based on the EKG abnormalities #2 known severe aortic stenosis in 2018 3. Acute respiratory failure 4. Acute kidney injury with a creatinine of approximately 2-1/2 5. History of bilateral carotid endarterectomy 6. Longstanding tobacco abuse with significant COPD 7. History of a GI bleed with a negative work-up probably related to his severe aortic stenosis The patient was transferred to the intensive care unit due to his respiratory status. In addition his troponin has risen substantially to 190. He is having worsening heart failure and respiratory distress. I would recommend that the patient be transferred to a tertiary care facility. Given his acute kidney injury there is substantial risk with a cardiac catheterization. If he is having cardiogenic shock symptoms then his only option would be to consider to go to the [facility].. Once he stabilizes he will need a cardiac catheterization and assessment of his aortic stenosis. If anything can be done he ultimately may need a TAVR with angioplasty and stenting. Determination will be made by the critical care service whether he needs to be intubated prior to flying to a tertiary care facility or whether he can remain on BiPAP. I stopped his packed RBCs in order to avoid worsening heart failure. We gave him Lasix 20 mg IV now. He will be started on a heparin drip without a bolus. He will receive aspirin. Given his relatively low blood pressure there is not a lot of room for beta-blockers. Upon transfer he will need statin therapy. All this was discussed with the hospitalist service and the cardiac tech service.
[2020-04-14] MEDS ORDERED: MIDAZOLAM HCL 1 MG/ML 2ML VIAL ONE (12:15)
[2020-04-14] MEDS ORDERED: fentaNYL citrate 100 MCG/2 ML VIAL ONE (12:15)
[2020-04-14] MEDS ORDERED: RAPID SEQUENCE INDUCTION BAG ONE (12:18)
[2020-04-14] MEDS ORDERED: MIDAZOLAM HCL 125MG/250ML D5W ONE (12:22)
[2020-04-14] MEDS ORDERED: PHENYLEPHRINE HCL 10 MG/ML VIAL ONE (12:28)
[2020-04-14] MEDS ORDERED: VECURONIUM BROMIDE 10 MG VIAL IV STA (12:33)
[2020-04-14] MEDS ORDERED: FENTANYL BOLUS FROM BAG IV PRN (12:33)
[2020-04-14] MEDS ORDERED: MIDAZOLAM BOLUS FROM BAG IV PRN (12:33)
[2020-04-14] MEDS ORDERED: STAT IV Infusion **Titration per Protocol STA (12:33)
--- NOTE | 2020-04-14 12:35 | Procedure Note ---
Procedure Note Date of Service April 14, 2020 Procedure Date: Noted above Procedure: Endotracheal intubation Pre-procedure Diagnosis: Acute on chronic hypoxic respiratory failure, acute coronary syndrome Post-procedure Diagnosis: same as above Prior to Procedure: Informed Consent: emergent, patient was verbally consented to the procedure, he has pre-existing lung disease I did mention that we may not be able to remove the breathing tube, patient prefers intubation, increasing anxiety increasing work of breathing. Attending Staff: Madeline Walters DO The identity of the patient was confirmed and a bedside time out was performed. Description of Procedure: Patient was evaluated and required intubation for impending respiratory failure. The patient was prepared in the usual fashion. A Barger 3 laryngoscope was used. A 8 mm inner diameter endotrachial tube was placed endotracheally to 23 cm at the teeth. A grade 1 view was obtained. The endotracheal tube was noted to pass through the vocal cords. Chest rise was bilateral. Bilateral breath sounds were heard without air sounds in the abdomen. Mist was noted in the endotracheal tube. End-tidal CO2 measurement was positive. Chest x-ray shows proper endotracheal tube placement. Medications used: 1 mg Versed, 50 mcg fentanyl, repeated dosing of 1 mg Versed and 50 mcg fentanyl, then 10 mg vecuronium Complications: None Findings: Not applicable Specimens: Not applicable Estimated blood loss: Zero Coding CPT Codes Resuscitation - Resuscitation: 80595 Endotracheal Intubation, emergency ([id number]) [facility] Procedure Codes (Charges) Resuscitation Resuscitation: 64652 Endotracheal Intubation, emergency
[2020-04-14] MEDS ORDERED: PHENYLEPHRINE 100MCG/ML 5ML SYR IV ONE ×2 (12:37→12:46)
[2020-04-14] MEDS ORDERED: fentaNYL DRIP 1,250 MCG/250 ML BAG IV SCH (12:45)
[2020-04-14] MEDS ORDERED: MIDAZOLAM HCL 125 MG/250 ML BAG IV SCH (12:45)
[2020-04-14] MEDS ORDERED: HEPARIN 25000 UNIT/500 ML D5W IV ONE (12:53)
--- NOTE | 2020-04-14 13:03 | XRay Report ---
XR chest 1V portable CLINICAL HISTORY: intubated COMPARISON STUDY: Chest CT September 12, 2018. Chest radiograph April 13, 2020. FINDINGS: The tip of the endotracheal tube is 5.2 cm above the sujata. There is no pneumothorax. Card iomegaly is again noted. Moderate pulmonary edema is unchanged. There are suspected small bilateral p leural effusions with bibasilar opacities. IMPRESSION: 1. Tip of endotracheal tube 5.2 cm above the sujata. 2. No change in moderate pulmonary edema, small bilateral pleural effusions and associated bibasilar opacities. ACT 112: Negative or not required by law. Electronically signed by: Anjum Chaudhry M.D. 04/14/2020 1:01 PM
[2020-04-14] MEDS ORDERED: fentaNYL citrate 100 MCG/2 ML VIAL IV ONE (13:44)
[2020-04-14] MEDS ORDERED: VECURONIUM BROMIDE 10 MG VIAL IV ONE (13:44)
[2020-04-14] MEDS ORDERED: MIDAZOLAM HCL 5 MG/ML VIAL IV ONE (13:44)
--- NOTE | 2020-04-14 16:50 | Discharge Summary ---
Date of Service April 14, 2020 Admission HPI Per Admitting Provider The patient is a 74-year-old male with a past medical history including acute on chronic diastolic heart failure, chronic respiratory failure with hypoxia, tobacco use disorder, COPD, hypertension, history of GI bleed, carotid artery disease status post left CEA, hypertension, and aortic stenosis. He presents to the emergency department with the acute onset of shortness of breath that began several hours prior to arrival. He denies any recent travels or sick exposures, including to coronavirus. He has no associated chest pain. He does report some lower extremity edema that has happened in the past associated with previous episodes of shortness of breath. Has a history of tobacco use but not now. Admission Exam Per Admitting Provider The patient is awake, alert and oriented 3, well developed and well nourished, normocephalic and atraumatic, lying in bed and in no acute distress. HEENT--PERRL, EOMI, mucous membranes and oropharynx normal. Neck--supple. No JVD. No bruits. Thyroid normal, trachea midline, no adenopathy. Heart--normal S1 and S2. No murmurs, rubs or gallops. Lungs--crackles at the bases bilaterally no respiratory distress, no accessory muscle use. Abdomen--normal bowel sounds and soft. Nontender. Nondistended. Extremities--no cyanosis or clubbing. 2+ bilateral pretibial pitting edema. Dermatologic--normal skin turgor, normal color, no abnormal lymph nodes, no rash. Neurologic--cranial nerves II through XII grossly intact. Rheumatologic--normal range of motion. Psychiatric--normal affect. Principal Diagnosis Acute on chronic respiratory failure with hypoxia and hypercapnia, COPD, STEMI, possible acute on chronic diastolic CHF, prolonged QTC, hypotension, CAD, severe aortic stenosis, anemia, acute kidney injury, hyponatremia, hypomagnesemia, hyperglycemia Discharge Exam Subjective on morning of transfer: Met with the patient around 1140 this morning. Found patient awake, alert, and sitting in his bedside chair. Patient stated that he called the ambulance because he felt short of breath for a few hours prior to arrival. Presently, says he feels anxious. He denied any present chest pain but said that he had central chest discomfort and said that he is been suffering with indigestion. Did not directly complain of any shortness of breath. At the time of our interview, he was on 4 L nasal cannula oxygen. He says that he is normally on 3 L of oxygen, day and night, at home. 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 No known recent fevers, cough, or feeling of illness. Denies any nausea, vomiting, or diarrhea. Says that he gets quite constipated from taking iron and that his stools are always dark. He notes that he had an EGD and colonoscopy over a year ago and had multiple polyps removed. He also mentioned that he has a history of GI bleed but is unsure of the exact date. Notes that he smoked for 56 years but quit in November. Normally lives at home with his and children. Denies any history of known kidney disease or diabetes. Physical exam prior to restarting BiPAP: General Appearance: Awake, alert & oriented, appears very anxious, diaphoretic, with some conversational dyspnea. CV: +S1S2 borderline tachycardic but regular, 3/6 systolic murmur. Pulm: Decreased breath sounds throughout but no wheezing or rales appreciated. On 4L NC oxygen. Abdomen: +BS, soft, non-tender, non-distended. Extremities: Moving all extremities naturally and easily. Trace to 1+ pitting edema in bilateral shins. Neuro: No gross neuro deficits. Discharge Data Allergies Allergy/AdvReac Type Severity Reaction Status Date / Time No Known Allergies Allergy Verified 04/14/20 00:08 Consultations 04/13/20 23:23 ED Decision to Admit Stat 04/14/20 01:42 Consult Case Management - Discharge Planning Routine 04/14/20 05:04 Consult Cardiology Routine Consult Gastroenterology Routine 04/14/20 12:04 Consult [employer] Tender Stat (cancelled) Cardiology note on April 14, 2020 (see full note for all details): Subjective: - The patient was seen this morning. He was on BiPAP at the time it looked even with BiPAP to have moderate degree of respiratory distress. He was sitting up in a chair at the time. He describes central chest pressure. He was diaphoretic. He was receiving 1 unit of packed red blood cells at the time. He noted his dyspnea was worsening. He was feeling anxious like he could not catch his breath. - The history was limited due to his current medical state. He notes he has had chest tightness at home over the last number of days with increasing dyspnea. He chronically wears oxygen. - In reviewing his history in June 2018 he was seen in the [facility] cardiology office for preoperative evaluation prior to right carotid endarterectomy. At the time he had severe aortic stenosis with a peak velocity of 4.3 m/s and a mean gradient of 47 mmHg. His LV function was preserved. - At the time his baseline creatinine was normal at 0.8. He has had no further cardiology follow-up since his carotid endarterectomy. - The rest of a complete review of systems is unobtainable Impressions: #[address] elevation myocardial infarction given the concern for left main or triple-vessel disease based on the EKG abnormalities #2 known severe aortic stenosis in 2018 3. Acute respiratory failure 4. Acute kidney injury with a creatinine of approximately 2-1/2 5. History of bilateral carotid endarterectomy 6. Longstanding tobacco abuse with significant COPD 7. History of a GI bleed with a negative work-up probably related to his severe aortic stenosis - The patient was transferred to the intensive care unit due to his respiratory status. In addition his troponin has risen substantially to 190. He is having worsening heart failure and respiratory distress. - I would recommend that the patient be transferred to a tertiary care facility. Given his acute kidney injury there is substantial risk with a cardiac catheterization. If he is having cardiogenic shock symptoms then his only option would be to consider to go to the [facility] Once he stabilizes he will need a cardiac catheterization and assessment of his aortic stenosis. If anything can be done he ultimately may need a TAVR with angioplasty and stenting. - Determination will be made by the critical care service whether he needs to be intubated prior to flying to a tertiary care facility or whether he can remain on BiPAP. - I stopped his packed RBCs in order to avoid worsening heart failure. We gave him Lasix 20 mg IV now. He will be started on a heparin drip without a bolus. He will receive aspirin. Given his relatively low blood pressure there is not a lot of room for beta-blockers. - Upon transfer he will need statin therapy. - All this was discussed with the hospitalist service and the classroom instructor service. Procedures Performed Intubation note on April 14, 2020: Procedure Date: Noted above Procedure: Endotracheal intubation Pre-procedure Diagnosis: Acute on chronic hypoxic respiratory failure, acute coronary syndrome Post-procedure Diagnosis: same as above Prior to Procedure: Informed Consent: emergent, patient was verbally consented to the procedure, he has pre-existing lung disease I did mention that we may not be able to remove the breathing tube, patient prefers intubation, increasing anxiety increasing work of breathing. Attending Staff: Madeline Walters DO The identity of the patient was confirmed and a bedside time out was performed. Description of Procedure: Patient was evaluated and required intubation for impending respiratory failure. The patient was prepared in the usual fashion. A Barger 3 laryngoscope was used. A 8 mm inner diameter endotrachial tube was placed endotracheally to 23 cm at the teeth. A grade 1 view was obtained. The endotracheal tube was noted to pass through the vocal cords. Chest rise was bilateral. Bilateral breath sounds were heard without air sounds in the abdomen. Mist was noted in the endotracheal tube. End-tidal CO2 measurement was positive. Chest x-ray shows proper endotracheal tube placement. Medications used: 1 mg Versed, 50 mcg fentanyl, repeated dosing of 1 mg Versed and 50 mcg fentanyl, then 10 mg vecuronium Complications: None Findings: Not applicable Specimens: Not applicable Estimated blood loss: Zero Ordered Studies pCXR on April 13, 2020 IMPRESSION: 1. Mild to moderate interstitial pulmonary edema which has progressed. 2. Small bilateral pleural effusions and bibasilar densities have improved. 3. Bilateral hilar enlargement, unchanged. pCXR on April 14, 2020 IMPRESSION: 1. Tip of endotracheal tube 5.2 cm above the sujata. 2. No change in moderate pulmonary edema, small bilateral pleural effusions and associated bibasilar opacities. Hospital Course (1) Acute on chronic respiratory failure with hypoxia: 74-year-old male was admitted on 13 Apr 2020 for shortness of breath. Acute on chronic respiratory failure with hypoxia and hypercapnia, COPD: Prior 50+ pack/yr smoker. Noted acute onset of SOB for a few hours prior to calling EMS. - Placed on BiPAP on arrival to ED. Given steroids and albuterol in case of COPD exacerbation. Did have an elevated pCO2 > 40 on ABG. - On my exam, patient was on 4L NC (per nurse, trial for about an hour thus far). Stated normally on 3L NC at home. Continued to feel anxious with some SOB. I confirmed that, in case of respiratory failure, he would want intubation. Re-started him on BiPAP. - Decision was made to intubate prior to hospital transfer due to concern for impending respiratory failure en route. STEMI, possible acute on chronic diastolic CHF, prolonged QTc, CAD, severe aortic stenosis: - Reportedly no chest pain on arrival to ED (though mentioned indigestion). Initial TnI 0.5. Initial EKG read per ED note as sinus tachy, wide QRS, LBBB, elevation in aVR and depressions in lateral and inferior leads. Per ED note, case was discussed with on-call radioisotope technologist who believed this was related to respiratory distress and LBBB. Was treated with lasix. His home BP meds were held on admission. Given ASA 81 mg PO. - I ([facility]) received turnover for this patient around 7:[address] Celestin (attending hospitalist). Informed of case including that repeat TnI around 2 am was 71. Was told that cardiology had already been consulted and was aware of the patient. The decision was made to round on him later in the morning (due to other acute patients). - Met with the patient around 11:40 am. Subjective/objective exam as noted. Immediately discussed case with hospitalist and on-call epic analyst. Both evaluated patient at bedside. Determined patient needed transfer for higher care for possible cath in the setting of STEMI, elevated creatinine, and severe aortic stenosis. Next serial TnI was 190. Repeat EKGs showed persistent ST depressions but improvement/resolution of ST elevations. Unable to obtain echo before transfer. See related cardiology note, including severity of his . - Spoke on the phone with Dr. Schwartz ([facility] cardiology) at around 12:10. He agreed to accept the patient for transfer. - Helicopter transport arrived about 10 minutes after completion of call. Patient was transferred to the ICU for intubation in the interim. Developed hypotension ashvin-intubaton requiring push-dose phenylephrine. Also noted to have a run of V tach on the monitor. - Spoke with the patients on the phone at the time of his hospital departure, providing care updates. Then spoke with patients primary care physician on the phone, providing care updates. - Spoke with Dr. Boggs ([facility]) at 3:48 pm for about 10 minutes, then again briefly at 4:10 pm, providing details of todays care here at [facility]. Hypotension: During initial evaluations, BP low as 92/41. Blood transfusion was started at time of transfer. Given lasix to help with volume overload. Tenuous situation given his need for volume in setting of AMI + severe versus pulmonary edema + effusions by initial exam and imaging. Anemia, history of GI bleed: Admit Hb 8.0 with baseline perhaps 9-10. Concerned about baseline severe and history of bleeding. Patient noted routine dark stools due to being on home iron. Patient was ordered PRBC transfusion with first unit having started by the time of transfer. Was also treated with pantoprazole IV. - On admission, there was though of starting heparin but it was not given (? related to concern for GI bleed). After hospitalists exam, was able to start heparin drip before his transfer. GI was consulted on admit but was not able to see him prior to transfer. Acute kidney injury: Admit Cr 2.46. No known underlying renal disease. His home spironolactone, lasix 40 mg daily, lorsartan, and metolazone were all held on admission. Hyponatremia, Hypermagnesemia: Na as low as 130. Mg as high as 2.7. Likely related to his RAND. Hyperglycemia: Admit glucose 357. No known DM. Around admission, was given insulin and placed on insulin sliding scale. HbA1c pending at time of transfer. Has a prior history of HTN and a bilateral carotid endarterectomy as well. Code status: Full code. (2) Chronic obstructive pulmonary disease: (3) STEMI (ST elevation myocardial infarction): (4) Acute on chronic diastolic (congestive) heart failure: (5) Prolonged QT interval: (6) CAD (coronary artery disease): (7) Aortic stenosis: (8) Hypotension: (9) Anemia: (10) History of GI bleed: (11) Acute kidney injury: (12) Hyponatremia: (13) Hypermagnesemia: (14) Hyperglycemia: Total Time Total Time Spent Total Time Spent (In Minutes): > 30 min Discharge Plan Discharge Items Patient Disposition: Transfer Acute Care Hospital Reason For Visit: ACUTE RESP FAILURE WITH HYPOXIA AND HYPERCAPNEA Discharge Diagnosis: STEMI, acute on chronic respiratory failure, anemia, acute kidney injury, hypotension Activity: Per Instructions section Non-emergency contact: Primary Care Provider Call non-emergency contact if: you have any medication questions Follow-up/Referrals: Robert Owen MD [Primary Care Provider] - Diet: Other - See Diet Comment Addtl Attending Provider Instructions: Transfer to [facility] for higher level of care. Pending Studies at Discharge: Yes Stand-Alone Forms: [facility] Skilled Items Patient informed of condition?: Yes DNR: No Discharge Level of Care: Other Communicable Disease: No Discharge Prognosis: Deteriorating Lines: Peripheral IV Urinary Catheter: No Medications and DC Order Prescriptions: Discontinued furosemide 40 mg Tablet 40 mg PO DAILY RF: 0 losartan 25 mg Tablet 25 mg PO DAILY RF: 0 aspirin [Aspir-81] 81 mg Tablet,Delayed Release (Dr/Ec) 81 mg PO DAILY RF: 0 spironolactone 25 mg tablet 25 mg PO DAILY RF: 0 calcium carbonate [Calcium 600] 600 mg calcium (1,500 mg) Tablet 600 mg PO DAILY RF: 0 magnesium 250 mg Tablet 250 mg PO DAILY RF: 0 fluticasone propion-salmeterol [Wixela Inhub] 250-50 mcg/dose blister with device 1 inh INHALATION BID RF: 0 ferrous sulfate 325 mg (65 mg iron) Tablet,Delayed Release (Dr/Ec) 325 mg PO BID RF: 0 docusate sodium [Colace] 100 mg Capsule 100 mg PO BID RF: 0 calcium carbonate [Tums Ultra] 400 mg calcium (1,000 mg) Tablet,Chewable 400 mg PO QID PRN (Reason: Gastric Reflux) RF: 0 potassium chloride [Klor-Con M20] 20 mEq tablet,ER particles/crystals 20 meq PO DAILY Qty: 7 RF: 0 metolazone 2.5 mg Tablet 2.5 mg PO DIRECTED RF: 0 meclizine 12.5 mg Tablet 12.5 mg PO DIRECTED PRN (Reason: Dizziness) RF: 0 diltiazem HCl 120 mg Capsule,Extended Release 24 Hr 120 mg PO DAILY RF: 0 Discharge Orders: Discharge Order (Routine); Ordered 04/14/20 Ordered By: Vic Coreas Admission Data Admit Date/Time: 04/13/20 23:43 Attending Provider: Vangie Celestin Admit Provider: Liang Loomis Primary Care Provider: Robert Owen Other Providers: Liang Loomis ; Isidoro Molina ; Abdifatah Moulton Other Interventions: Discharge Summary Assessment (RN) Last Done: 04/14/20 14:01 DC Date/Time DO NOT enter until pt leaves facility: 04/14/20 13:45 Supervising Physician Co-Signing Physician Notes I personally examined the patient and verified all verma points of history and exam, discussed case, and agree with decision making with Dr. Coreas with the following additions/exceptions: Pt is a 74 yo male with a h/o severe , JASON, smoking, and chronic respiratory failure with hypoxia, who was admitted last night/early this AM with acute on chronic respiratory failure with hypoxia and hypercarbia in the setting of a STEMI. There was review of ECGs by licensed bondsman Skidder apparently who did not think there was a STEMI present at the time of admission. Repeat ECG was somewhat improved although troponin jumped way up to 70 overnight. He was on BiPAP through the night and weaned to 4LNC only briefly this AM and then had continued resp distress while receiving a unit of PRBCs this AM. He denied chest pain or pressure but was having significant SOB. When I saw him, he was leaning forward in a chair, diaphoretic, holding his chest, and tachypneic. He was ordered lasix and PRBC transfusion held by Cardiology. Decision made to discuss case with [employer] Tender who was kind enough to intubate this patient for us in preparation to fly him to [facility] for evaluation for cardiac intervention in setting of severe and with RAND. He was taken down to ICU and intubated, started on heparin gtt for Acute coronary syndrome, and then flown to [facility]. Vitals reviewed +acute resp distress, sitting in chair, diaphoretic as above, leaning forward alert, awake, oriented x 3 RRR +3/6 TAMIKO at RUSB Lungs with crackles at bases, +wheezing, diminished throughout Abd +BS soft, mild distension, nontender Ext 2+ pitting edema to knees bilat Skin no rashes 74 yo male with STEMI and acute on chronic resp failure with hypoxia and hypercarbia in setting of severe anemia and severe aortic stenosis, also with RAND. Guarded prognosis, likely needs acute intervention with Cardiology at tertiary care center. COmplex case. Discharge to [facility] Resident Activity Tracking Resident Involvement: Resident Care Provided Care Provided: Adult Hospital Medicine
--- NOTE | 2020-04-15 12:36 | Electrocardiogram Report ---
Test Reason : Blood Pressure : / mmHG Vent. Rate : 115 BPM Atrial Rate : 115 BPM P-R Int : 168 ms QRS Dur : 110 ms QT Int : 336 ms P-R-T Axes : 089 -23 100 degrees QTc Int : 464 ms Poor data quality, interpretation may be adversely affected Sinus tachycardia ST elevation in AVR and V1 c/w Acute AL Marked ST abnormality, possible inferolateral subendocardial injury Abnormal ECG When compared with ECG of 14-APR-2020 07:46, The degree of ST elevation and ST depression has improved Confirmed by Skinny Silva ([id number]) on 04/15/2020 12:36:05 PM Referred By: REFERRED SELF Confirmed By:Skinny Silva
--- NOTE | 2020-04-16 23:23 | Billing Data ---
Date of Service April 14, 2020 Coding Level of Care Code D/C Day Management >30 mins
== END 2020-04-14 13:45 | disposition short-term general hospital (02) | DRG 208 ==
LOC: ED 21:45 → 2S 23:43 → SUATTDRO 23:43 → 2S 04-14 00:36 → 1E 04-14 12:01

== ENCOUNTER 2020-06-11 09:45 | Inpatient (IN) ==
[2020-06-11 10:24] LABS: Basophils # (auto) 0.03 K/uL (0-0.2); Basophils % (auto) 0.5 %; Eosinophils # (auto) 0.11 K/uL (0-0.5); Eosinophils % (auto) 1.7 %; Hematocrit (blood only) 27.7 % (42-52); Hemoglobin 8.1 g/dL (14.0-18.0); Immature Granulocytes # (auto) 0.01 K/uL (0.00-0.02); Immature Granulocytes % (auto) 0.2 %; Lymphocytes # (auto) 0.46 K/uL (1.2-3.4); Lymphocytes % (auto) 7.1 %; Mean Corpuscular Hemoglobin 28.1 pg (25-34); Mean Corpuscular Hgb Conc 29.2 g/dL (32-36); Mean Corpuscular Volume 96.2 fL (80-100); Mean Platelet Volume 10.2 fL (7.4-10.4); Monocytes # (auto) 0.76 K/uL (0.11-0.59); Monocytes % (auto) 11.8 %; Neutrophils # (auto) 5.07 K/uL (1.4-6.5); Neutrophils % (auto) 78.7 %; Platelet Count 350 K/uL (130-400); RDW Coefficient of Variation 15.4 % (11.5-14.5); RDW Standard Deviation 54.1 fL (36.4-46.3); Red Blood Count 2.88 M/uL (4.7-6.1); White Blood Count 6.44 K/uL (4.8-10.8)
--- NOTE | 2020-06-11 10:35 | Emergency Department Note ---
Impression & Plan Respiratory failure, Acute respiratory acidosis, Acute alteration in mental status, Anemia ED Provider Note NAME: TIEN PIERCE AGE: 74 SEX: M : 1945 ARRIVES VIA: Walk-In INFORMANT: Patient, the patient significant other. 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 The patient has a history of recent valve replacement surgery for his aortic valve. This occurred at the beginning of April. At that time he was cleared for COVID-19 infection and has not been traveling since. Ever since that time he has been having worsening shortness of breath. While he was in the hospital he had to have thoracentesis for removal of pleural effusions. His is noticed that he has been having worsening difficulty breathing and increasing his supplemental oxygen over the last few weeks but also he is been having lower extremity swelling and has been confused intermittently. The patient does have a history of CO2 retention as well as CHF as well as COPD. He has been using his usual medications without changes. The patient states that he cannot walk more than 10 steps without becoming severely short of breath. He denies having any abdominal pain or vomiting. He is had no fever. He he states he does have a slightly productive cough but his sputum is not colored. He has had no decreased urine output. He has had no recent falls or head injuries. ROS: See above HPI for pertinent positives & negatives. A total of 10 systems reviewed and were otherwise negative. PAST MEDICAL HISTORY: See Below PAST SURGICAL HISTORY: See Below FAMILY HISTORY: See Below SOCIAL HISTORY: See Below HOME MEDICATIONS: See Below ALLERGIES: See Below VITALS: See Below PHYSICAL EXAMINATION: GENERAL: The patient is listless and slow to respond to questions. He does answer questions appropriately but requires significant prompting to do so. EYES: The conjunctivae are clear. The pupils are round and reactive. EARS, NOSE, MOUTH AND THROAT: The nose is without any evidence of any deformity. Mucous membranes are moist. Tongue is midline. NECK: The neck is nontender and supple. RESPIRATORY: Diminished breath sounds are noted throughout. The patient has significant rales throughout both lung anderson. Shallow respirations were noted. Poor air movement was noted. CARDIOVASCULAR: Regular rate and rhythm was noted to auscultation. No definite murmur was noted. GASTROINTESTINAL: The abdomen is distended. The abdomen is soft. There is right upper quadrant tenderness to palpation but no guarding rigidity. MUSCULOSKELETAL/EXTREMITIES: There is no evidence of gross deformity full range of motion is noted in the hips and shoulders. SKIN: Venous stasis changes were noted in both lower extremities. There is pedal edema bilaterally. No calf tenderness was elicited. NEUROLOGIC: Patient is oriented to person place and situation. Speech is understandable. Strength is symmetric but diminished bilaterally. MEDICAL DECISION MAKING: The patient is a 74-year-old male who has a history of recent aortic valve replacement surgery in April who presented to the emergency department with worsening shortness of breath and altered mental status. The patient's alteration of mental status is likely secondary to significant CO2 retention. He was placed on Vapotherm and his symptoms significantly improved. The patient was also hypoxic but also improved with Vapotherm treatment. I discussed the patient's laboratory and radiographic studies with him. [facility] can further evaluate the patient in the emergency department for further management disposition. Triage Nursing notes reviewed. Prior medical records reviewed Vital Signs: reviewed and remarkable for tachypnea and hypoxia. Differential diagnosis: Infection, hypoglycemia, electrolyte abnormalities, overdose, toxicologic, cardiac sources, intracerebral event, neurologic, trauma, as well as other pathologies. ER treatment provided: See below Diagnostics interpreted by me: ECG: EKG was obtained in the emergency department. My interpretation is sinus bradycardia at 57 bpm. There is no ectopy. Left bundle branch block pattern was noted. Lateral ST depressions were noted. There is a decrease in the overall ventricular rate however no significant changes were noted compared to a tracing on February [id number]. Cardiac Monitoring: An order was placed for continuous cardiac monitoring. The monitor shows a rate of 58 with sinus bradycardia rhythm. Laboratory studies: As stated above and show below. Imaging studies: See below Consultation(s): 1130: [facility] Tello[facility]. He will evaluate the patient in the emergency department for further management disposition ED COURSE: Procedures: none PDMP:reviewed and no issues Critical Care: I have personally spent greater than 45 minutes of critical care time in the direct management of this patient. This includes bedside care, interpretation of diagnostic studies, and testing, discussion with consultants, patient, and family members, and other required patient management activities. This 45 minutes is in excess of all separately billable procedures. Past Med/Surg History Medical History Anemia Aortic stenosis (Chronic) severe asymptomatic Chronic obstructive pulmonary disease OXYGEN 5L/MIN NC HS Chronic shortness of breath Cigarette nicotine dependence Dependent edema PRN diuretics History of carotid artery disease S/P L CEA 2013 History of GI bleed Hypertension Surgical History History of appendectomy History of cataract surgery BILAT History of colonoscopy History of esophagogastroduodenoscopy (EGD) History of left-sided carotid endarterectomy 2013 History of tonsillectomy History of tooth extraction Toenail avulsion REMOVAL OF Social History Smoking Status: Former smoker Cigarettes Per Day: 20; Second Hand Exposure: No; Hx Alcohol Use: No Hx Substance Use: No Preferred Language: Albanian Communication Ability: Effective Visual Impairment: No Limitations Dolphin Researcher Required: No Beliefs That Will Affect Care: None marital status: Current Living Situation: Spouse Other Information That Helps Us Care for You: No Feels Safe at Home: Yes Safety Concerns: Feels Safe At This Time Allergies Allergies Allergy/AdvReac Type Severity Reaction Status Date / Time No Known Drug Allergies Allergy Verified 06/11/20 08:58 Home Meds Home Medications Medication Instructions Recorded Confirmed atorvastatin 80 mg tablet 80 mg PO DAILY 05/20/20 06/11/20 escitalopram oxalate 20 mg tablet 20 mg PO DAILY 05/20/20 06/11/20 ferrous sulfate 325 mg (65 mg 325 mg PO DAILY 05/20/20 06/11/20 iron) tablet lorazepam 0.5 mg tablet 0.5 mg PO DAILY PRN 05/20/20 06/11/20 losartan 25 mg tablet 12.5 mg PO DAILY tab 05/20/20 06/11/20 magnesium 250 mg tablet 250 mg PO DAILY 05/20/20 06/11/20 metolazone 2.5 mg tablet 2.5 mg PO DIRECTED PRN 05/20/20 06/11/20 pantoprazole 40 mg tablet,delayed 40 mg PO BID tab 05/20/20 06/11/20 release potassium chloride 20 mEq 20 meq PO BID 05/20/20 06/11/20 tablet,extended release meclizine 12.5 mg tablet 12.5 mg PO TID PRN 05/21/20 06/11/20 multivitamin 1 tab PO DAILY 05/21/20 06/11/20 warfarin 5 mg tablet 5 mg PO DAILY 05/21/20 06/11/20 torsemide 100 mg tablet 100 mg PO BID tab 06/03/20 06/11/20 calcium carbonate 600 mg calcium 600 mg PO BID tab 06/10/20 06/11/20 (1,500 mg) tablet docusate sodium 100 mg capsule 100 mg PO BID 06/10/20 06/11/20 fluticasone 250 mcg-salmeterol 50 1 puffs INH BID 06/10/20 06/11/20 mcg/dose blistr powdr for inhalation metformin 500 mg tablet 500 mg PO BID 06/10/20 06/11/20 sodium chloride 0.65 % nasal spray 2 sprays INTNAS BID ml 06/10/20 06/11/20 aerosol acetaminophen 325 mg capsule 325 mg PO QID PRN 06/11/20 06/11/20 warfarin 2.5 mg PO DIRECTED 06/11/20 06/11/20 Previous Rx's Medication Instructions Recorded metoprolol tartrate 25 mg tablet 25 mg PO BID #60 tab 06/04/20 Results & Data (ED) Vital Signs Vital Signs - 24 hr 06/11/20 09:50 06/11/20 09:58 06/11/20 10:01 Temperature 36.9 C Temperature Source Oral Pulse Rate 112 H 57 L Pulse Rate [Finger] Pulse Rate from SpO2 Sensor 57 L Respiratory Rate 22 24 Respiratory Effort / Characteristics Non-Labored Spontaneous Respiratory Depth Normal Blood Pressure 105/62 109/54 L Blood Pressure Mean 76 87 Pulse Oximetry 95 93 93 Oxygen Delivery Method Nasal Cannula Nasal Cannula Nasal Cannula Oxygen Flow Rate 5 5 5 Fraction of Inspired Oxygen Sepsis Recent Fever Within 48 Hours No Sepsis New/Unexplained Change in Mental Status No Sepsis Action Taken by Nursing No Action Required 06/11/20 10:05 06/11/20 10:30 06/11/20 10:32 Temperature Temperature Source Pulse Rate 57 L 56 L Pulse Rate [Finger] Pulse Rate from SpO2 Sensor 57 L 56 L Respiratory Rate 20 14 Respiratory Effort / Characteristics Respiratory Depth Blood Pressure 142/57 H 134/68 Blood Pressure Mean 106 89 Pulse Oximetry 95 94 90 Oxygen Delivery Method Nasal Cannula Nasal Cannula Oxygen Flow Rate 5 3 Fraction of Inspired Oxygen Sepsis Recent Fever Within 48 Hours Sepsis New/Unexplained Change in Mental Status Sepsis Action Taken by Nursing 06/11/20 10:45 06/11/20 11:10 06/11/20 11:15 Temperature Temperature Source Pulse Rate 66 54 L Pulse Rate [Finger] 55 L Pulse Rate from SpO2 Sensor 55 L 54 L Respiratory Rate 22 27 H 19 Respiratory Effort / Characteristics Spontaneous Respiratory Depth Blood Pressure 122/46 L 115/48 L Blood Pressure Mean 94 72 Pulse Oximetry 95 94 96 Oxygen Delivery Method High Flow Nasal Cannula High Flow Nasal Cannula High Flow Nasal Cannula Oxygen Flow Rate 30 30 Fraction of Inspired Oxygen 45 45 Sepsis Recent Fever Within 48 Hours Sepsis New/Unexplained Change in Mental Status Sepsis Action Taken by Nursing 06/11/20 11:31 06/11/20 12:15 06/11/20 12:30 Temperature Temperature Source Pulse Rate 54 L 63 Pulse Rate [Finger] Pulse Rate from SpO2 Sensor 55 L 60 59 L Respiratory Rate 18 13 22 Respiratory Effort / Characteristics Respiratory Depth Blood Pressure 118/56 L 119/39 L 135/38 L Blood Pressure Mean 75 87 78 Pulse Oximetry 95 93 92 Oxygen Delivery Method High Flow Nasal Cannula High Flow Nasal Cannula High Flow Nasal Cannula Oxygen Flow Rate 30 Fraction of Inspired Oxygen 45 Sepsis Recent Fever Within 48 Hours Sepsis New/Unexplained Change in Mental Status Sepsis Action Taken by Nursing 06/11/20 12:45 06/11/20 13:00 Temperature Temperature Source Pulse Rate 59 L 60 Pulse Rate [Finger] Pulse Rate from SpO2 Sensor 59 L 60 Respiratory Rate 20 33 H Respiratory Effort / Characteristics Respiratory Depth Blood Pressure 122/52 L 127/48 L Blood Pressure Mean 81 96 Pulse Oximetry 95 94 Oxygen Delivery Method High Flow Nasal Cannula High Flow Nasal Cannula Oxygen Flow Rate Fraction of Inspired Oxygen Sepsis Recent Fever Within 48 Hours Sepsis New/Unexplained Change in Mental Status Sepsis Action Taken by Jail Medications Current Medication List: was personally reviewed by me Laboratory Data Attestation: I reviewed the patient's lab results. Result diagrams: 06/11/20 10:05 06/11/20 10:05 Lab Results 06/11/20 06/11/20 06/11/20 Range/Units 10:05 10:05 10:05 WBC 6.44 (4.8-10.8) K/uL RBC 2.88 L (4.7-6.1) M/uL Hgb 8.1 L (14.0-18.0) g/dL Hct 27.7 L (42-52) % MCV 96.2 (80-100) fL MCH 28.1 (25-34) pg MCHC 29.2 L (32-36) g/dL RDW Std Deviation 54.1 H (36.4-46.3) fL RDW Coeff of Vesta 15.4 H (11.5-14.5) % Plt Count 350 (130-400) K/uL MPV 10.2 (7.4-10.4) fL Immature Gran % (Auto) 0.2 % Neut % (Auto) 78.7 % Lymph % (Auto) 7.1 % [place] % (Auto) 11.8 % Eos % (Auto) 1.7 % Baso % (Auto) 0.5 % Neut # (Auto) 5.07 (1.4-6.5) K/uL Lymph # (Auto) 0.46 L (1.2-3.4) K/uL [place] # (Auto) 0.76 H (0.11-0.59) K/uL Eos # (Auto) 0.11 (0-0.5) K/uL Baso # (Auto) 0.03 (0-0.2) K/uL Immature Gran # (Auto) 0.01 (0.00-0.02) K/uL PT 23.5 H (9.0-12.0) Seconds INR 2.3 H (0.9-1.1) APTT 39.6 H (21.0-31.0) Seconds PTT Ratio 1.4 VBG pH (7.36-7.41) VBG pCO2 (38-50) mmHg VBG pO2 mmHg VBG HCO3 mmol/L VBG O2 Saturation % VBG Base Excess mEq/L Barometric Pressure mm/Hg Sodium 136 (136-145) mmol/L Potassium 4.5 (3.5-5.1) mmol/L Chloride 89 L (98-107) mmol/L Carbon Dioxide 47 H* (21-32) mmol/L Anion Gap 0 L (3-11) BUN 60 H (7-18) mg/dl Creatinine 1.58 H D (0.6-1.4) mg/dl Est Cr Clr Drug Dosing Not Reportable Est GFR ( Amer) 48.5 Est GFR (Non-Af Amer) 41.9 BUN/Creatinine Ratio 38.2 H (10-20) Glucose 167 H (70-99) mg/dl Lactate (0.4-2.0) mmol/L Calcium 9.7 (8.5-10.1) mg/dl Magnesium 2.8 H (1.8-2.4) mg/dl Total Bilirubin 0.3 (0.2-1) mg/dl AST 25 (15-37) U/L ALT 37 (12-78) U/L Alkaline Phosphatase 84 (45-117) U/L Ammonia (11-32) umol/L Troponin I 0.029 (0-0.045) ng/ml Total Protein 7.0 (6.4-8.2) gm/dl Albumin 3.5 (3.4-5.0) gm/dl Globulin 3.5 (2.5-4.0) gm/dl Albumin/Globulin Ratio 1.0 (0.9-2) Procalcitonin (0-0.5) ng/ml 06/11/20 06/11/20 06/11/20 Range/Units 10:05 10:48 10:48 WBC (4.8-10.8) K/uL RBC (4.7-6.1) M/uL Hgb (14.0-18.0) g/dL Hct (42-52) % MCV (80-100) fL MCH (25-34) pg MCHC (32-36) g/dL RDW Std Deviation (36.4-46.3) fL RDW Coeff of Vesta (11.5-14.5) % Plt Count (130-400) K/uL MPV (7.4-10.4) fL Immature Gran % (Auto) % Neut % (Auto) % Lymph % (Auto) % [place] % (Auto) % Eos % (Auto) % Baso % (Auto) % Neut # (Auto) (1.4-6.5) K/uL Lymph # (Auto) (1.2-3.4) K/uL [place] # (Auto) (0.11-0.59) K/uL Eos # (Auto) (0-0.5) K/uL Baso # (Auto) (0-0.2) K/uL Immature Gran # (Auto) (0.00-0.02) K/uL PT (9.0-12.0) Seconds INR (0.9-1.1) APTT (21.0-31.0) Seconds PTT Ratio VBG pH (7.36-7.41) VBG pCO2 (38-50) mmHg VBG pO2 mmHg VBG HCO3 mmol/L VBG O2 Saturation % VBG Base Excess mEq/L Barometric Pressure mm/Hg Sodium (136-145) mmol/L Potassium (3.5-5.1) mmol/L Chloride (98-107) mmol/L Carbon Dioxide (21-32) mmol/L Anion Gap (3-11) BUN (7-18) mg/dl Creatinine (0.6-1.4) mg/dl Est Cr Clr Drug Dosing Est GFR ( Amer) Est GFR (Non-Af Amer) BUN/Creatinine Ratio (10-20) Glucose (70-99) mg/dl Lactate 0.7 (0.4-2.0) mmol/L Calcium (8.5-10.1) mg/dl Magnesium (1.8-2.4) mg/dl Total Bilirubin (0.2-1) mg/dl AST (15-37) U/L ALT (12-78) U/L Alkaline Phosphatase (45-117) U/L Ammonia 40.0 H (11-32) umol/L Troponin I (0-0.045) ng/ml Total Protein (6.4-8.2) gm/dl Albumin (3.4-5.0) gm/dl Globulin (2.5-4.0) gm/dl Albumin/Globulin Ratio (0.9-2) Procalcitonin 0.05 (0-0.5) ng/ml 06/11/20 Range/Units 10:48 WBC (4.8-10.8) K/uL RBC (4.7-6.1) M/uL Hgb (14.0-18.0) g/dL Hct (42-52) % MCV (80-100) fL MCH (25-34) pg MCHC (32-36) g/dL RDW Std Deviation (36.4-46.3) fL RDW Coeff of Vesta (11.5-14.5) % Plt Count (130-400) K/uL MPV (7.4-10.4) fL Immature Gran % (Auto) % Neut % (Auto) % Lymph % (Auto) % [place] % (Auto) % Eos % (Auto) % Baso % (Auto) % Neut # (Auto) (1.4-6.5) K/uL Lymph # (Auto) (1.2-3.4) K/uL [place] # (Auto) (0.11-0.59) K/uL Eos # (Auto) (0-0.5) K/uL Baso # (Auto) (0-0.2) K/uL Immature Gran # (Auto) (0.00-0.02) K/uL PT (9.0-12.0) Seconds INR (0.9-1.1) APTT (21.0-31.0) Seconds PTT Ratio VBG pH 7.33 L (7.36-7.41) VBG pCO2 93 H (38-50) mmHg VBG pO2 52 mmHg VBG HCO3 48 mmol/L VBG O2 Saturation 79.2 % VBG Base Excess 19.6 mEq/L Barometric Pressure 734.0 mm/Hg Sodium (136-145) mmol/L Potassium (3.5-5.1) mmol/L Chloride (98-107) mmol/L Carbon Dioxide (21-32) mmol/L Anion Gap (3-11) BUN (7-18) mg/dl Creatinine (0.6-1.4) mg/dl Est Cr Clr Drug Dosing Est GFR ( Amer) Est GFR (Non-Af Amer) BUN/Creatinine Ratio (10-20) Glucose (70-99) mg/dl Lactate (0.4-2.0) mmol/L Calcium (8.5-10.1) mg/dl Magnesium (1.8-2.4) mg/dl Total Bilirubin (0.2-1) mg/dl AST (15-37) U/L ALT (12-78) U/L Alkaline Phosphatase (45-117) U/L Ammonia (11-32) umol/L Troponin I (0-0.045) ng/ml Total Protein (6.4-8.2) gm/dl Albumin (3.4-5.0) gm/dl Globulin (2.5-4.0) gm/dl Albumin/Globulin Ratio (0.9-2) Procalcitonin (0-0.5) ng/ml Administered Medications Albuterol (Duoneb) 3 ml NEB Q4R MARZENA Stop: 07/11/20 14:59 Last Admin: 06/11/20 15:04 Dose: 3 ml Documented by: [id number] Discontinued Medications Furosemide (Lasix) 80 mg IV NOW STA Stop: 06/11/20 13:37 Last Admin: 06/11/20 14:01 Dose: 80 mg Documented by: [id number] Methylprednisolone (Solumedrol) 125 mg IV NOW STA Stop: 06/11/20 13:44 Last Admin: 06/11/20 14:01 Dose: 125 mg Documented by: [id number] Imaging Data Radiologist's Impression: XR chest 1V portable CLINICAL HISTORY: Sepsis. COMPARISON STUDY: Chest radiograph June 10, 2020. FINDINGS: There is no pneumothorax. Moderate cardiomegaly is noted with a prosthetic aortic valve. Moderate left and small right pleural effusions are similar to prior exam. Persistent bibasilar opacities are unchanged. Pulmonary edema has slightly increased. IMPRESSION: 1. Slight increase in pulmonary edema. 2. No change in moderate left and small right pleural effusions with associated bibasilar airspace opacities. ACT 112: Negative or not required by law. Electronically signed by: Anjum Chaudhry M.D. 06/11/2020 10:43 AM Dictated: 06/11/20 1042 Transcribed: 06/11/20 1042 Blood Pressure Blood Pressure Findings: Low blood pressure Blood Pressure Disposition: further management by hospitalist Discharge Plan Visit Data *Final* Discharge Date/Time: 06/11/20 14:10 Chief Complaint: Referred by Doctor Stated Complaint: HARD TO BREATHE ED Provider: Mj Ramsay Discharge Problem: Respiratory failure, Acute respiratory acidosis, Acute alteration in mental status, Anemia Patient Disposition: Admitted As Inpatient Condition: Good Discharge Instructions Interventions: ED Discharge Assessment Last Done: 06/11/20 14:10 Discharge Problem: Respiratory failure Qualifiers: Chronicity: acute Respiratory failure complication: hypoxia and hypercapnia Qualified Code(s): J96.01 - Acute respiratory failure with hypoxia Anemia Qualifiers: Anemia type: unspecified type Qualified Code(s): D64.9 - Anemia, unspecified
[2020-06-11 10:39] LABS: INR 2.3 (0.9-1.1); Partial Thromboplastin Ratio 1.4; Partial Thromboplastin Time 39.6 Seconds (21.0-31.0); Prothrombin Time 23.5 Seconds (9.0-12.0)
--- NOTE | 2020-06-11 10:45 | XRay Report ---
XR chest 1V portable CLINICAL HISTORY: Sepsis. COMPARISON STUDY: Chest radiograph June 10, 2020. FINDINGS: There is no pneumothorax. Moderate cardiomegaly is noted with a prosthetic aortic valve. Mo derate left and small right pleural effusions are similar to prior exam. Persistent bibasilar opaciti es are unchanged. Pulmonary edema has slightly increased. IMPRESSION: 1. Slight increase in pulmonary edema. 2. No change in moderate left and small right pleural effusions with associated bibasilar airspace op acities. ACT 112: Negative or not required by law. Electronically signed by: Anjum Chaudhry M.D. 06/11/2020 10:43 AM
[2020-06-11 11:00] LABS: Alanine Aminotransferase 37 U/L (12-78); Albumin Level 3.5 gm/dl (3.4-5.0); Alkaline Phosphatase 84 U/L (45-117); Anion Gap 0 (3-11); Aspartate Aminotransferase 25 U/L (15-37); BUN Creatinine Ratio 38.2 (10-20); Bilirubin,Total 0.3 mg/dl (0.2-1); Blood Urea Nitrogen 60 mg/dl (7-18); Calcium 9.7 mg/dl (8.5-10.1); Carbon Dioxide 47 mmol/L (21-32); Chloride 89 mmol/L (98-107); Est GFR (African American) 48.5; Est GFR (Non-African American) 41.9; Globulin 3.5 gm/dl (2.5-4.0); Glucose 167 mg/dl (70-99); Magnesium 2.8 mg/dl (1.8-2.4); Potassium 4.5 mmol/L (3.5-5.1); Sodium 136 mmol/L (136-145); Troponin I 0.029 ng/ml (0-0.045)
[2020-06-11 11:12] LABS: Base Excess VBG 19.6 mEq/L; Oxygen Saturation VBG 79.2 %; pH VBG 7.33 (7.36-7.41)
[2020-06-11 11:19] LABS: Appearance Urine Clear (Clear); Bilirubin Urine Negative (Negative); Blood Urine Negative (Negative); Color Urine Yellow; Glucose Urine UA Negative (Negative); Ketones Urine Negative (Negative); Leukocyte Esterase Urine Negative (Negative); Nitrite Urine Negative (Negative); Protein Urine Trace (Negative); Specific Gravity Urine 1.014 (1.000-1.030); Urobilinogen Urine Negative (Negative)
[2020-06-11 11:30] LABS: Amorphous Sediment Urine Present (None Prsent); Cast Urine Automated 0 /lpf (0-5); Epithelial Cell Urine Auto 0-5 /lpf (0-5); RBC Urine Automated 0-4 /hpf (0-4); WBC Urine Automated 0 /hpf (0-5)
[2020-06-11 11:31] LABS: Bacteria Urine Automated Negative (Negative)
[2020-06-11] MEDS ORDERED: FUROSEMIDE 40 MG/4 ML VIAL IV STA ×2 (13:36→14:43)
--- NOTE | 2020-06-11 13:40 | History & Physical Report ---
Date of Service June 11, 2020 Assessment & Plan (1) Acute metabolic encephalopathy: Metabolic vs. toxic vs. infective vs. hypoxic vs. uremic (BUN 60) Would favor uremic encephalopathy given timeline given by his and prior labs - consult nephrology Patient turning his O2 down as outpatient to conserve oxygen - ?hypoxic, aim O2 sats 88-92% pending ABG Hypercapnia - less likely without acidosis (pH normal on VBG, pending ABG) Lorazepam apparently new medication since his TAVR to "help him sleep" ?toxic +/- hypoxic making ABDIEL worse - d/c lorazepam CT head - nill acute, could consider MRI given recent diagnosis of LV thrombus UA - not suggestive of infection, procalcitonin/WBC negative and no significant acute CXR findings to suggest PNA, Blood culture pending RUQ pain on admission - LFTs/WBC WNL, will get US liver to further assess for cholecystitis - handed over to resident physician at night to start on Zosyn if showing cholecystitis Mg 2.8 (unlikely to be having any significant effect at this level), Ca 9.7, Na 136, K 4.5 Add TSH to AM labs (2) Acute on chronic respiratory failure with hypoxia and hypercapnia: ABG stat. Will need BiPAP at night and suspect PRN during the day to assist with hypercapnia. Aim O2 sats 88-92% while on NC or BiPAP. Can have temporary breaks to eat/investigations etc... I am unclear what is the primary driving force behind his acute decompensation or even the time period this has occurred over. His weight has been stable at heart failure clinic and he is at his apparent dry weight (although given recent hospitalizations and deconditioning his dry weight may be much lower). His BUN/Cr was increasing with increased O/P diuretics then improved after stopping acetazolamide, however he remains hypervolemic on exam and CXR. Unsure why he would require increased diuretics s/p TAVR (TTE s.p TAVR LVEF 55-60% with normal gradient across prosthetic aortic valve). He does not weigh himself at home. For now will treat both acute CHF and COPD exacerbation. (3) Acute renal failure: UA pending Monitor I&Os ?due to overdiuresis as outpatient vs. poor cardiac output from US KUB to r/o post obstructive cause (4) Uremia: ?RAND/GI bleed, will likely increase with methylprednisone given ?causing encephalopathy (5) Acute on chronic heart failure with preserved ejection fraction: Discussed with Dr De Lasix 80mg IV BID Metolazone 2.5mg PO QAM (depending on Cr) Daily BMP, weights, strict I&Os Consult cardiology and heart failure clinic (6) Metabolic alkalosis with respiratory acidosis: Metabolic alkalosis appears appropriate for compensation of chronic CO2 retention and respiratory acidosis with his COPD. As BiPAP helps with CO2 retention may benefit from retrial of acetazolamide with metabolic alkalosis remains. (7) COPD exacerbation: Suspected as per Dr Mathew note with no significant improvement with optimizing his heart failure will treat for this with IV methylprednisone and duonebs q4h in addition to his usual maintenance inhalers Described as severe however only prior PFTs found in 2014 showing FEV1/FVC 74% and FVC 53% of predicted. Reported as mild obstruction at that time with no change in FEV1 after albuterol plus air trapping and normal DLCO. ?obesity hypoventilation based on PFTs. No significant emphysema or fibrotic lung disease noted on CT in 2018 from a quick review of the pictures and report. Consult pulmonology to assist in management given unclear how significant his lung disease if currently contributing and unclear need to continue steroids +/- possible need for thoracocentesis. (8) Bilateral pleural effusion: Suspect due to acute CHF, given current respiratory status and recent required thoracocentesis in [place] will consult pulmonology in addition for this reason (9) S/P TAVR (transcatheter aortic valve replacement): s/p TAVR TTE performed in April appears to be working well (10) Anemia: Normocytic chronic but likely contributing in setting of multiple other etiologies including CHF. Prior history of GI AVMs. Transfuse 1 unit now. Repeat CBC in AM. Aim Hgb > 9. (11) Hypertension: Hold losartan due to RAND as above Lasix and metolazone as above (12) DVT prophylaxis: PTINR therapeutic. Given possible need for thoracocentesis will hold further doses at this time and repeat PTINR daily. Admission and Anticipated Discharge Date Admission Date: 06/11/2020 History of Present Illness Chief Complaint: Shortness of breath, confusion Primary Care Provider: Robert Owen MD Richard Lobo is a 74 year old male with congestive heart failure s/p recent TAVR, COPD, chronic respiratory failure with hypoxia who presents to the ER on the advice of his security architect due to progressive dyspnea and increased hypoxia. Unable to get much of a history from the patient as he could only tell me he felt generally unwell and short of breath but was unable to give me any specific timeline of events therefore much of the history was taken from his outpatient notes. He was recently hospitalized here in March with acute hypoxic/hypercapnic respiratory failure, acute on chronic congestive heart failure, STEMI and severe aortic stenosis. His condition deteriorated requiring ICU admission, intubation and he was transferred to [facility] [place] [place] for further care. Subsequent cardiac catheterization showed minimal coronary artery disease and subsequently underwent TAVR on 04/23. He was treated for CAP with 7 days antibiotics. Required significant diuresis on that hospitalization and developed flash pulmonary edema due to SVT. He required total 4 units PRBCs @ [facility] and [facility] [place] [place] (known history of AVMs although I do not believe repeat EGD and colonoscopy were performed recently). He was also was started on warfarin due to ARAMIS thrombus - ASA and plavix were stopped. More recently he has been followed by the heart failure clinic with increased dosing of torsemide and starting metolazone (took on ) and acetazolamide on (). His Cr and BUN have been increasing. Initially unable to contact his Noemi on admission but was able to confirm more history later in the day. She reports her main concern is his mental state which has more acutely deteriorated over the past 2 days. Much more confused than usual. Having auditory hallucinations. She hasn't been able to leave him alone. Not being rational. He has been turning down his O2 as he was concerned about it running out. She has noticed some tremors and notes his father has Parkinson's. Per his [facility] [place] [place] discharge paperwork he should be taking 4L O2 at rest and 6L O2 on exertion. He was also started on lorazepam which he has been taking to "help him sleep". Allergies Allergy/AdvReac Type Severity Reaction Status Date / Time No Known Drug Allergies Allergy Verified 06/11/20 08:58 Home Medications Home Medications Medication Instructions Recorded Confirmed Type atorvastatin 80 mg tablet 80 mg PO DAILY 05/20/20 06/11/20 History escitalopram oxalate 20 mg tablet 20 mg PO DAILY 05/20/20 06/11/20 History ferrous sulfate 325 mg (65 mg 325 mg PO DAILY 05/20/20 06/11/20 History iron) tablet lorazepam 0.5 mg tablet 0.5 mg PO DAILY PRN 05/20/20 06/11/20 History losartan 25 mg tablet 12.5 mg PO DAILY tab 05/20/20 06/11/20 History magnesium 250 mg tablet 250 mg PO DAILY 05/20/20 06/11/20 History metolazone 2.5 mg tablet 2.5 mg PO DIRECTED PRN 05/20/20 06/11/20 History pantoprazole 40 mg tablet,delayed 40 mg PO BID tab 05/20/20 06/11/20 History release potassium chloride 20 mEq 20 meq PO BID 05/20/20 06/11/20 History tablet,extended release meclizine 12.5 mg tablet 12.5 mg PO TID PRN 05/21/20 06/11/20 History multivitamin 1 tab PO DAILY 05/21/20 06/11/20 History warfarin 5 mg tablet 5 mg PO DAILY 05/21/20 06/11/20 History torsemide 100 mg tablet 100 mg PO BID tab 06/03/20 06/11/20 History metoprolol tartrate 25 mg tablet 25 mg PO BID #60 tab 06/04/20 06/11/20 Rx calcium carbonate 600 mg calcium 600 mg PO BID tab 06/10/20 06/11/20 History (1,500 mg) tablet docusate sodium 100 mg capsule 100 mg PO BID 06/10/20 06/11/20 History fluticasone 250 mcg-salmeterol 50 1 puffs INH BID 06/10/20 06/11/20 History mcg/dose blistr powdr for inhalation metformin 500 mg tablet 500 mg PO BID 06/10/20 06/11/20 History sodium chloride 0.65 % nasal spray 2 sprays INTNAS BID ml 06/10/20 06/11/20 History aerosol acetaminophen 325 mg capsule 325 mg PO QID PRN 06/11/20 06/11/20 History warfarin 2.5 mg PO DIRECTED 06/11/20 06/11/20 History Past Med/Surg History Medical History Anemia Aortic stenosis (Chronic) severe asymptomatic Chronic obstructive pulmonary disease OXYGEN 5L/MIN NC HS Chronic shortness of breath Dependent edema PRN diuretics History of carotid artery disease S/P L CEA 2013 History of GI bleed Hypertension Tobacco use disorder Surgical History History of appendectomy History of cataract surgery BILAT History of colonoscopy History of esophagogastroduodenoscopy (EGD) History of left-sided carotid endarterectomy 2013 History of tonsillectomy History of tooth extraction Toenail avulsion REMOVAL OF Family History Father Hypertension Social History Smoking Status: Former smoker Cigarettes Per Day: 20; Second Hand Exposure: No; Hx Alcohol Use: No Hx Substance Use: No Preferred Language: Divehi Communication Ability: Effective Visual Impairment: No Limitations Professional Caster Required: No Beliefs That Will Affect Care: None marital status: Current Living Situation: Spouse Other Information That Helps Us Care for You: No Feels Safe at Home: Yes Safety Concerns: Feels Safe At This Time Review of Systems Review of Systems: Unobtainable due to cognitive status Physical Exam Constitutional: well developed and + acute distress (unable to lie flat due to SOB); + not well nourished Eyes: PERRL, conjunctivae normal, anicteric sclerae ENMT: Ears: + hearing impairment Neck: normal visual inspection, trachea midline, + short neck and + thick neck Respiratory: Auscultation: + diminished lung sounds (bibasal); no crackles, no rales, no rhonchi and no wheezes Cardiovascular: Rate/Rhythm: regular rate and regular rhythm Heart Sounds: no murmur Vessels: + JVD Extremities: normal capillary refill and + pedal edema (3+ b/l equal to hips); no calf tenderness Gastrointestinal (Abdomen): Inspection/Auscultation: abdomen normal to inspection and normal bowel sounds; abdomen not distended Percussion/Palpation: + abdomen tender (RUQ on deep palpation) and abdomen soft; no guarding and abdomen not rigid Musculoskeletal: no cyanosis or clubbing, extremities motor strength 5/5 Skin: no rashes, warm and dry Neurologic: moves all extremities, awake and + confused; no focal motor deficits (lateralizing) Speech / Cognition: normal speech Motor/Sensory: no tremor and no pronator drift Cranial Nerves: normal facial strength Psychiatric: Orientation: alert, oriented to person and oriented to place; + not oriented to time Genitourinary: no CVA tenderness Lymphatic: no cervical or axillary lymphadenopathy Results & Data Results & Data ([facility]) Vital Signs (Past 12 Hours) Vital Signs Temp Pulse Pulse Resp BP Pulse Ox 06/11/20 12:45 59 L 20 122/52 L 95 06/11/20 12:30 22 135/38 L 92 06/11/20 12:15 63 13 119/39 L 93 06/11/20 11:31 54 L 18 118/56 L 95 06/11/20 11:15 54 L 19 115/48 L 96 06/11/20 11:10 66 27 H 122/46 L 94 06/11/20 10:45 55 L 22 95 06/11/20 10:32 90 06/11/20 10:30 56 L 14 134/68 94 06/11/20 10:05 57 L 20 142/57 H 95 06/11/20 10:01 93 06/11/20 09:58 57 L 24 109/54 L 93 06/11/20 09:50 36.9 C 112 H 22 105/62 95 Diagnostic Findings XR chest 1V portable IMPRESSION: 1. Slight increase in pulmonary edema. 2. No change in moderate left and small right pleural effusions with associated bibasilar airspace opacities. CT SCAN OF THE BRAIN WITHOUT IV CONTRAST IMPRESSION: There is no hemorrhage, mass effect, or evidence of acute territorial ischemia by CT criteria noting a motion compromised examination. ECG Indication: chest pain Rate (beats per minute): 57 Rhythm: sinus bradycardia Findings: + LBBB Comparison ECG Date: from Change: the following changes noted (Rate decreased with significant changes, left bundle branch block now with QRS > 120 ms) Code Status & VTE Plan Code Status DNR/DNI as per patient wishes VTE Prophylaxis Plan VTE Prophylaxis will be ordered: Yes PG Care Time/CCT Total # of Minutes Spent Total Time Spent with Patient: Total time spent is greater than 50% in coordination of care (as documented) at patient's floor/unit and/or counseling patient: Coding Level of Care Code 86519 Initial Inpt Care Lvl 3 Diagnoses Acute metabolic encephalopathy G93.41 Acute on chronic respiratory failure with hypoxia and hypercapnia J96.21; J96.22 Acute renal failure N17.9 Acute renal failure type: unspecified Uremia N19 Acute on chronic heart failure with preserved ejection fraction I50.33 Metabolic alkalosis with respiratory acidosis E87.4 COPD exacerbation J44.1 Bilateral pleural effusion J90 S/P TAVR (transcatheter aortic valve replacement) Z95.2 Anemia D64.9 Anemia type: unspecified type Hypertension I10 DVT prophylaxis Z29.9 (1) Acute renal failure Acute renal failure type: unspecified Qualified Code(s): N17.9 - Acute kidney failure, unspecified (2) Anemia Anemia type: unspecified type Qualified Code(s): D64.9 - Anemia, unspecified
--- NOTE | 2020-06-11 13:41 | Electrocardiogram Report ---
Test Reason : Blood Pressure : / mmHG Vent. Rate : 057 BPM Atrial Rate : 057 BPM P-R Int : 202 ms QRS Dur : 128 ms QT Int : 440 ms P-R-T Axes : 081 -22 043 degrees QTc Int : 428 ms Poor data quality, interpretation may be adversely affected Sinus bradycardia Non-specific intra-ventricular conduction block Abnormal ECG When compared with ECG of 14-APR-2020 12:08, Vent. rate has decreased BY 58 BPM Non-specific intra-ventricular conduction block has replaced Incomplete left bundle block Confirmed by Mj Zimmerman ([id number]) on 06/11/2020 1:41:30 PM Referred By: Mj Hensley Confirmed By:Mj Zimmerman
[2020-06-11] MEDS ORDERED: methylPREDNISolone 125 MG/2 ML VIAL IV STA (13:43)
[2020-06-11] MEDS ORDERED: LORazepam 0.5 MG TAB PO PRN (14:43)
[2020-06-11] MEDS ORDERED: SODIUM CHLORIDE 0.9% 250 ML IV PRN (14:43)
[2020-06-11] MEDS ORDERED: metOLazone 2.5 MG TABLET PO PRN (14:43)
--- NOTE | 2020-06-11 14:44 | CT Scan Report ---
CT SCAN OF THE BRAIN WITHOUT IV CONTRAST CLINICAL HISTORY: Change in mental status. COMPARISON STUDY: No priors. TECHNIQUE: Unenhanced axial CT scan of the brain is performed from the vertex to the skull base. A do se lowering technique was utilized adhering to the principles of ALARA. The patient was scanned twice due to motion artifact. The examination is motion degraded. CT DOSE: 1671.43 mGycm FINDINGS: Brain parenchyma: There are age-related involutional changes noting mild to moderate subcortical and periventricular microangiopathic change. There is no hemorrhage, mass effect, or evidence of acute t erritorial ischemia by CT criteria. Lynne-white matter differentiation is preserved. No extra-axial fl uid collection is seen. Ventricles, sulci, cisterns: Prominent secondary to involutional change. Intracranial vasculature: There is atherosclerotic calcification of the cavernous carotid and vertebr al arteries. Calvarium: Unremarkable. Sinuses and mastoids: The visualized paranasal sinuses are clear. The mastoid air cells are well pneu matized. Orbits: The bony orbits are grossly intact. There are bilateral ocular lens implants. IMPRESSION: There is no hemorrhage, mass effect, or evidence of acute territorial ischemia by CT dlt victor hugo noting a motion compromised examination. ACT 112: Negative or not required by law. Electronically signed by: Arun Christensen M.D. 06/11/2020 2:43 PM
[2020-06-11] MEDS ORDERED: ACETAMINOPHEN 325 MG TAB PO PRN (14:54)
[2020-06-11] MEDS: ALBUT/IPRATROP 3MG/0.5MG NEB 3 ML VIAL NEB SCH ×3 (15:04→22:57)
[2020-06-11 15:50] LABS: Allen Test Pos (Pos); HCO3 ABG 47 mmol/L (19-24); PCO2 ABG 88 mmHg (35-46); PO2 ABG 53 mmHg (80-95); pH ABG 7.35 (7.35-7.45)
[2020-06-11] MEDS: FLUTICASONE/VILANTEROL 100/25MCG 14 PUFFS/INHALER INH SCH (17:00)
[2020-06-11] MEDS: FUROSEMIDE 80 MG in SYRINGE 0 ML IV SCH (18:06)
[2020-06-11] MEDS ORDERED: DEXTROSE 50% 50 ML SYRINGE IV PRN (18:12)
[2020-06-11] MEDS ORDERED: GLUCOSE 10 TABS/TUBE PO PRN (18:12)
[2020-06-11] MEDS ORDERED: GLUCOSE 40% GEL 15 GM TUBE PO PRN (18:12)
[2020-06-11] MEDS ORDERED: GLUCAGON FOR INJ 1 MG VIAL SQ PRN (18:12)
[2020-06-11] MEDS ORDERED: CARBOHYDRATES FOR HYPOGLYCEMIA PO PRN (18:12)
[2020-06-11 20:38] LABS: HCO3 ABG 49 mmol/L (19-24); Oxygen Saturation ABG 94.6 % (90-95); PCO2 ABG 92 mmHg (35-46); PO2 ABG 84 mmHg (80-95); pH ABG 7.34 (7.35-7.45)
[2020-06-11 20:39] LABS: Allen Test Pos (Pos)
[2020-06-11] MEDS: METOPROLOL TARTRATE 25 MG TAB PO SCH (21:26)
[2020-06-11] MEDS: DOCUSATE SODIUM 100 MG CAP PO SCH (21:26)
[2020-06-11] MEDS: POTASSIUM CHLORIDE 20 MEQ TABCR PO SCH (21:26)
[2020-06-11] MEDS: PANTOprazole 40 MG TAB PO SCH (21:27)
[2020-06-11] MEDS: SODIUM CHLORIDE 0.65% NA SOLN 45 ML (OCEAN) NAE SCH (21:27)
[2020-06-11] MEDS: INSULIN ASPART 100 UNITS/ML 3 ML PEN SC SCH (21:28)
[2020-06-12] MEDS: ALBUT/IPRATROP 3MG/0.5MG NEB 3 ML VIAL NEB SCH ×6 (03:23→22:01)
--- NOTE | 2020-06-12 06:50 | Consultation ---
Date of Consultation June 12, 2020 Assessment & Plan (1) Acute on chronic heart failure with preserved ejection fraction: Patient's LE edema and JVD is consistent w/ fluid overload status. Skin is warm. Plan is to diuresis w/ caution against overdiuresis. BUN elevated at 58, creatinine wnl at 1.34. Admission was for dyspnea. Unsure what is contributing to the dyspnea amongst acute on chronic CHF vs COPD exacerbation vs anemia (Hgb 8.4). VBG 06/11/20 consistent w/ metabolic alkalosis w/ respiratory acidosis. No arrhythmia on ECG. S/p TAVR last month and per recent echo, no issues. Plan: Lasix 80mg IV BID. Metolazone 2.5mg PO QAM (depending on Cr). Continue supplemental O2. Daily BMP, weights, strict I&Os. Recheck volume status. Present on Admission?: Yes (2) Metabolic alkalosis with respiratory acidosis: Chronic CO2 retention and respiratory acidosis w/ COPD. Metabolic alkalosis compensation. Plan: BiPAP at night Present on Admission?: Yes (3) COPD exacerbation: Lungs were clear to auscultation and patient was in no acute distress during my exam. Plan: Continue home medications. 5L supp O2 via nasal cannula during day and BiPAP at night. Management by Pulm. (4) Anemia: Chronic normocytic anemia. Hx of GI AVMs. Plan: hospitalist managing and has transfused 1 unit. Follow AM labs. Present on Admission?: Yes (5) Acute on chronic respiratory failure with hypoxia and hypercapnia: As per above. Plan: BiPAP at night. Titrate supplemental O2 via nasal cannula during the day. Management by pulm. Present on Admission?: Yes (6) Hypertension: Losartan currently held. Plan: Lasix and metolazone as above Present on Admission?: Yes (7) DVT prophylaxis: Therapeutic PT/INR. Plan: daily CBC Supervising Physician Co-Signing Physician Notes Patient seen and examined. Agree with assessment and plan as outlined by Dr. Prince. Dr. De will continue his care. History of Present Illness Attending Physician: Miguel Tello MD History of Present Illness Richard Lobo is a 74 year old w/ hx of HFpEF, aortic stenosis s/p TAVR, emphysema, anemia, CAD, HTN, chronic respiratory failure on 5L home O2, and GI bleed who presents with worsened dyspnea since last month. He was seen by cardio, HF outpatient on 06/10/20 and pulm Am clinic on 06/11/20 and initially did not want to come to the hospital, but came in today because of his symptoms. Cardiology was consulted because the patient is being treated for acute on chronic diastolic heart failure on this admission as one of the possible contributors to his symptoms. Anticoagulated on warfarin at home. Currently, denies any pain fever/chills, nausea/vomiting, chest pain, palpitations, shortness of breath, constipation/diarrhea, urinary symptoms, cough, hemoptysis, weakness, numbness/tingling. He does not currently have any vision changes but notes that for the past 2 months, has intermittently had some blurry vision in the central visual field that he thinks is brought on when his O2 saturation is low. States that his baseline resp function was in August of 2019. Deterioration over months, w/ more noticeable worsening after the hospitalization for TAVR in April 2020. Home diuretic regimen had been torsemide 100 mg PO BID and questionable of whether added metolazone recommended at 06/03/20 HF clinic. States that he is compliant with his home meds. Patient does report poor memory. This consultation was performed by Nelson Prince MD, family medicine PGY1 for the cardiology service at 1530 on 06/11/20. Allergies Allergy/AdvReac Type Severity Reaction Status Date / Time No Known Drug Allergies Allergy Verified 07/08/20 10:55 Home Medications Home Medications Medication Instructions Recorded Confirmed Type atorvastatin 80 mg tablet 80 mg PO DAILY 05/20/20 07/08/20 History escitalopram oxalate 20 mg tablet 20 mg PO DAILY 05/20/20 07/08/20 History ferrous sulfate 325 mg (65 mg 325 mg PO DAILY 05/20/20 07/08/20 History iron) tablet lorazepam 0.5 mg tablet 0.5 mg PO DAILY PRN 05/20/20 07/08/20 History magnesium 250 mg tablet 250 mg PO DAILY 05/20/20 07/08/20 History pantoprazole 40 mg tablet,delayed 40 mg PO BID tab 05/20/20 07/08/20 History release potassium chloride 20 mEq 20 meq PO BID 05/20/20 07/08/20 History tablet,extended release meclizine 12.5 mg tablet 12.5 mg PO TID PRN 05/21/20 07/08/20 History multivitamin 1 tab PO DAILY 05/21/20 07/08/20 History warfarin 5 mg tablet 5 mg PO DAILY 05/21/20 07/08/20 History metoprolol tartrate 25 mg tablet 25 mg PO BID #60 tab 06/04/20 07/08/20 Rx calcium carbonate 600 mg calcium 600 mg PO BID tab 06/10/20 07/08/20 History (1,500 mg) tablet docusate sodium 100 mg capsule 100 mg PO BID 06/10/20 07/08/20 History fluticasone 250 mcg-salmeterol 50 1 puffs INH BID 06/10/20 07/08/20 History mcg/dose blistr powdr for inhalation sodium chloride 0.65 % nasal spray 2 sprays INTNAS BID ml 06/10/20 07/08/20 History aerosol acetaminophen 325 mg capsule 325 mg PO QID PRN 06/11/20 07/08/20 History warfarin 2.5 mg PO DIRECTED 06/11/20 07/08/20 History spironolactone 25 mg PO QAM 30 Days #30 tab 06/28/20 07/08/20 Rx metolazone 2.5 mg tablet 2.5 mg PO Q OTHER DAY #15 tab 07/05/20 07/08/20 Rx bumetanide 1 mg tablet 4 mg PO BID tab 07/08/20 History Patient History Medical History Anemia Aortic stenosis (Chronic) severe asymptomatic Chronic obstructive pulmonary disease OXYGEN 5L/MIN NC HS Chronic shortness of breath Dependent edema PRN diuretics History of carotid artery disease S/P L CEA 2013 History of GI bleed Hypertension Tobacco use disorder Surgical History History of appendectomy History of cataract surgery BILAT History of colonoscopy History of esophagogastroduodenoscopy (EGD) History of left-sided carotid endarterectomy 2013 History of tonsillectomy History of tooth extraction Toenail avulsion REMOVAL OF Family History Father Hypertension Social History Smoking Status: Former smoker Cigarettes Per Day: 20; Second Hand Exposure: No; Hx Alcohol Use: No Hx Substance Use: No Preferred Language: Malian Communication Ability: Effective Visual Impairment: No Limitations Public Relations Professional Required: No Beliefs That Will Affect Care: None marital status: Current Living Situation: Spouse Feels Safe at Home: Yes Review of Systems Review of Systems: Constitutional: Denies fever, chills, malaise, weight change Eyes: As per HPI Cardiovascular: Positive for lower extremity swelling. Denies Chest pain, palpitations Respiratory: Denies cough, current shortness of breath (while on 5L O2 nasal cannula) Gastrointestinal: Denies abdominal pain, nausea, vomiting, constipation, diarrhea Genitourinary: Denies urinary symptoms including dysuria Musculoskeletal: Denies weakness, muscle aches/pain Neurological: Denies headache, numbness, tingling, focal weakness Physical Exam Physical Exam: 06/11/20 Vitals at 1504 were stable. 36.4C temp. 69 pulse. 18 RR. 94% O2 sat on 5L nasal cannula (dial was at 4L in the room on my arrival, readjusted to 5L). General: A&Ox3. NAD. Cooperative. HEENT: EOMI. Poor dentition. Moist mucous membranes. Pulm: CTAB A&P. -wheezes, -rales, -rhonchi. No respiratory distress while on 5L nasal cannula. Cardiac: RRR, -rg. Systolic murmur at aortic region. No carotid bruits on auscultation. Bilateral JVD. 2+ pitting edema bilat lower extremities. Abdominal: Nontender, soft. Neuro: Some memory impairment acknowledged by the patient during history taking. Cranial nerves grossly intact. Mild trembling w/ movement/touch of extremities. Integumentary: Skin is warm. Results & Data ([facility]) Vital Signs (Past 12 Hours) Vital Signs Temp Pulse Pulse Resp BP BP Pulse Ox 06/12/20 03:28 86 86 18 94 06/12/20 03:18 36.5 C 62 20 155/57 H 95 06/11/20 23:41 36.3 C L 54 L 16 104/68 93 06/11/20 23:00 65 65 18 96 06/11/20 20:20 36.5 C 73 18 171/66 H 98 06/11/20 19:59 36.6 C 68 18 118/47 L 97 06/11/20 19:07 36.5 C 70 23 119/53 L 100 06/11/20 19:03 65 18 93 Laboratory Results 06/11/20. anemic w/ Hgb 8.4, Hct 28.0. therapeutic INR 2.3. 06/12/20 ABG pH 7.40. pO2 65. pCO2 82. HCO3 50 06/11/20 VBG pH 7.33. pCO2 93 06/12/20 creatinine 1.34. BUN 58. Hemoglobin A1c 5.7. Est GFR 51.1. bilirubin, tsh wnl. urine: trace urine protein. NTproBNP slightly elevated 2187 Diagnostic Findings 06/11/20 ECG Poor quality ECG. Sinus evelin rate of 57 BPM. When compared to ECG of 04/14/20, on-specific intra-ventricular conduction block has replaced incompl ete left bundle block. confirmed by Dr. Mj Zimmerman, able seaman. 05/17/20 ECHO. LV systolic function normal. No regional wall motion abnormalities. Mild concentric LV hypertrophy. EF 55-60%. Prosthetic aortic valve well-seated. Mild AR. Mild mitral stenosis. 07/08/18 ECHO. Severe valvular aortic stenosis. Severe mitral annular calcification. Mild to moderate mitral stenosis. Grade I diastolic dysfunction of L ventricle. moderate concentric LV hypertrophy. Normal LV systolic function. EF 60-65%. LV wall motion is normal. Mild to moderate mitral stenosis. 06/11/20 abdominal ultrasound complete. Impression: 1. distended gallbladder w/ cholelithiasis, adenomyomatosis and polyposis is noted in addition to trace pericholecystic fluid w/ positive sonographic Guadalupe's sign. Findings are concerning for acute cholecystitis. 2. No biliary ductal dilation. 3. Indeterminate 1.6 cm cystic lesion of the pancreatic head. 4. Bilateral pleural effusions. Interpreted by Dr. Vic Ferrara. 06/11/[address] Impression: no hemorrhage, mass effect, or evidence of acute territorial ischemia by CT critereia noting a motion compromised examination. Interpreted by Dr. Arun Christensen. 06/11/20 cxr. Impression: 1. Slight increase in pulmonary edema. 2. No change in moderate left and small right pleural effusions with associated bibasilar airspace opacities. Interpreted by Dr. Anjum Chaudhry. PG Care Time/CCT Total # of Minutes Spent Total Time Spent with Patient: Total time spent is greater than 50% in c oordination of care (as documented) at patient's floor/unit and/or counseling patient: 30 minutes Coding Level of Care Code 71933 Inpt Consult Level 4 Diagnoses Acute on chronic heart failure with preserved ejection fraction I50.33 Metabolic alkalosis with respiratory acidosis E87.4 COPD exacerbation J44.1 Anemia D64.9 Anemia type: unspecified type Acute on chronic respiratory failure with hypoxia and hypercapnia J96.21; J96.22 Hypertension I10 Hypertension type: essential hypertension DVT prophylaxis Z29.9 (1) Anemia Anemia type: unspecified type Qualified Code(s): D64.9 - Anemia, unspecified (2) Hypertension Hypertension type: essential hypertension Qualified Code(s): I10 - Essential (primary) hypertension
[2020-06-12 07:00] LABS: Basophils # (auto) 0.02 K/uL (0-0.2); Basophils % (auto) 0.5 %; Eosinophils # (auto) 0.02 K/uL (0-0.5); Eosinophils % (auto) 0.5 %; Hemoglobin 8.4 g/dL (14.0-18.0); Lymphocytes # (auto) 0.46 K/uL (1.2-3.4); Lymphocytes % (auto) 10.8 %; Mean Corpuscular Hemoglobin 28.2 pg (25-34); Mean Platelet Volume 9.6 fL (7.4-10.4); Monocytes # (auto) 0.76 K/uL (0.11-0.59); Monocytes % (auto) 17.8 %; Neutrophils # (auto) 3.01 K/uL (1.4-6.5); Neutrophils % (auto) 70.4 %; Platelet Count 286 K/uL (130-400); RDW Coefficient of Variation 15.3 % (11.5-14.5); RDW Standard Deviation 52.9 fL (36.4-46.3); Red Blood Count 2.98 M/uL (4.7-6.1); White Blood Count 4.27 K/uL (4.8-10.8)
[2020-06-12 07:06] LABS: HCO3 ABG 50 mmol/L (19-24); PCO2 ABG 82 mmHg (35-46); PO2 ABG 65 mmHg (80-95)
[2020-06-12 07:07] LABS: Allen Test Pos (Pos)
[2020-06-12 07:09] LABS: Estimated Average Glucose 117 mg/dl; Hemoglobin A1C 5.7 % (4.5-5.6)
[2020-06-12 07:15] LABS: INR 2.3 (0.9-1.1); Prothrombin Time 22.8 Seconds (9.0-12.0)
--- NOTE | 2020-06-12 07:29 | Ultrasound Report ---
US abdomen complete CLINICAL HISTORY: 74 years-old Male with RUQ pain ?thickened wall GB. RAND, R/O obstructive cause. A cute right upper quadrant abdominal pain with acute kidney injury TECHNIQUE: Multiple real time sonographic images of the abdomen were obtained assessing bolivar-scale a ppearance. COMPARISON: Chest CT 09/12/2018 FINDINGS: PANCREAS: The pancreas is partially obscured by bowel gas. There is a cystic structures in the head of the pancreas: 1.6 x 0.6 x 1.0 cm without color flow or solid component. The pancreatic duct measur es the upper limits of normal at 3 mm. LIVER: The liver demonstrates a homogeneous parenchymal echotexture. There is no intrahepatic reina e duct dilation, focal lesion, or contour nodularity. There is no ascites. GALLBLADDER: The gallbladder is distended with mild wall thickening measuring up to approximately 4 m m. Trace pericholecystic fluid. Diffusely nodular morphology of the gallbladder wall is noted with ar eas of ringdown artifact. Numerous gallbladder polyps are noted measuring up to approximately 1 cm. S onographic Guadalupe sign reported as positive. Cholelithiasis is also noted.. The common bile duct rosas ures 0.6 cm. RIGHT KIDNEY: The right kidney measures 11.7 x 4.8 x 5.3 cm. The parenchymal echotexture and cortica l thickness are normal. Mild thickening of the right adrenal gland is redemonstrated. No nephrolithia sis or hydronephrosis. LEFT KIDNEY: The left kidney measures 12.1 x 7.3 x 4.8 cm. The parenchymal echotexture and cortical thickness are normal. No nephrolithiasis or hydronephrosis. SPLEEN: The spleen measures 8.7 cm and is normal in echotexture. No focal lesions are identified. VASCULATURE: The visualized aorta and inferior vena cava are sub-visualized although appear normal a s seen. Hepatopetal flow is seen within the portal vein. Incidental note is made of bilateral pleural effusions. IMPRESSION: 1. Distended gallbladder with cholelithiasis, adenomyomatosis and polyposis is noted in addition to t race pericholecystic fluid with positive sonographic Guadalupe's sign. Findings are concerning for acute cholecystitis. 2. No biliary ductal dilation. 3. Indeterminate 1.6 cm cystic lesion of the pancreatic head. 4. Bilateral pleural effusions. ACT 112: Negative or not required by law. The above report was generated using voice recognition software. It may contain grammatical, syntax o r spelling errors. Electronically signed by: Vic Ferrara M.D. 06/12/2020 7:28 AM
[2020-06-12] MEDS: PANTOprazole 40 MG TAB PO SCH ×2 (07:51→21:10)
[2020-06-12] MEDS: MAGNESIUM OXIDE 400 MG TAB PO SCH (07:51)
[2020-06-12] MEDS: MULTIVITAMIN TAB PO SCH (07:52)
[2020-06-12] MEDS: DOCUSATE SODIUM 100 MG CAP PO SCH ×2 (07:52→21:10)
[2020-06-12] MEDS: METOPROLOL TARTRATE 25 MG TAB PO SCH ×2 (07:52→21:11)
[2020-06-12] MEDS: FERROUS SULFATE 325 MG TAB PO SCH (07:53)
[2020-06-12] MEDS: LOSARTAN POTASSIUM 25 MG TAB PO SCH (07:53)
[2020-06-12] MEDS: POTASSIUM CHLORIDE 20 MEQ TABCR PO SCH ×2 (07:54→21:10)
[2020-06-12] MEDS: ESCITALOPRAM OXALATE 20 MG TAB PO SCH (07:54)
[2020-06-12 07:55] LABS: Albumin Level 3.2 gm/dl (3.4-5.0); BUN Creatinine Ratio 43.2 (10-20); Bilirubin Direct 0.1 mg/dl (0-0.2); Bilirubin,Total 0.4 mg/dl (0.2-1); Calcium 9.8 mg/dl (8.5-10.1); Creatinine Clr Calc Pharmacy 48.4 ml/min; Est GFR (African American) 59.2; Est GFR (Non-African American) 51.1; Potassium 4.7 mmol/L (3.5-5.1); Thyroid Stimulating Hormone 2.4 uIu/ml (0.300-4.500); Total Protein 6.5 gm/dl (6.4-8.2)
[2020-06-12] MEDS: FUROSEMIDE 80 MG in SYRINGE 0 ML IV SCH ×2 (07:55→17:42)
[2020-06-12] MEDS: ATORVASTATIN 40 MG TAB PO SCH (07:55)
[2020-06-12] MEDS: FLUTICASONE/VILANTEROL 100/25MCG 14 PUFFS/INHALER INH SCH (07:56)
[2020-06-12] MEDS: SODIUM CHLORIDE 0.65% NA SOLN 45 ML (OCEAN) NAE SCH ×2 (07:57→21:10)
[2020-06-12] MEDS: INSULIN ASPART 100 UNITS/ML 3 ML PEN SC SCH ×4 (07:58→21:10)
[2020-06-12] MEDS ORDERED: metOLazone 2.5 MG TABLET PO SCH (09:00)
--- NOTE | 2020-06-12 09:13 | Pulmonary Consultation ---
Date of Consultation June 12, 2020 Assessment & Plan (1) Bilateral pleural effusion: Impression: 74-year-old male with diastolic dysfunction status post TAVR placement now with evidence of fluid overload including bilateral pleural effusions. He does have a history of chronic hypoxemic and hypercarbic respiratory failure but appears adequately compensated currently with a normal pH. He reportedly carries a history of obstructive lung disease although his last PFTs from 5 years ago demonstrated more of a restrictive pattern of unclear etiology. Recommendations: 1. Restrictive lung disease: Etiology is unclear. No evidence of parenchymal lung disease on the CT scan from 5 years ago and his last PFTs were 5 years ago. Neuromuscular weakness and diaphragmatic dysfunction would be on the differential as well. There is no point in repeating PFTs currently as the patient has significant bilateral pleural effusions which would likely make his PFTs unreliable. Outpatient follow-up recommended with repeat PFTs once the patient's volume status is optimized. No indication for steroids or antibiotics from my perspective. 2. Hypoxemic and hypercarbic respiratory failure: Patient was poorly tolerant of BiPAP last evening. He is well compensated with a normal pH currently. Co heiked consider nocturnal trilogy home ventilation for use however the patient reports that he is unlikely to be compliant with this going forward. I would not push the issue why he is here in the hospital but this certainly can be addressed in the outpatient setting. 3. Bilateral pleural effusions: Suspect this is related to fluid overload. He is anticoagulated on Coumadin. I would favor continued diuresis at this point time. Would need INR to be less than 1.5. Coumadin is been held and would continue to check INR on a daily basis. If thoracentesis is conducted and the patient's volume status is not optimized, I would expect rapid reaccumulation of the pleural effusion. As he states he is minimally symptomatic currently from a respiratory standpoint, I do not think he requires reversal or urgent thoracentesis currently. We will continue to follow with you. Please call if additional questions (2) Acute on chronic respiratory failure with hypoxia and hypercapnia: (3) Acute on chronic heart failure with preserved ejection fraction: (4) COPD (chronic obstructive pulmonary disease): History of Present Illness Attending Physician: Carlton Veloz, DO History of Present Illness Asked by hospitalist service to evaluate this patient with advanced obstructive lung disease and fluid overload with bilateral pleural effusions. History is obtained from review electronic medical record as well as interview with the patient. The patient is a 74-year-old male who is been followed by Dr. Hensley in the outpatient clinic. He has a history of systolic heart failure and recently underwent TAVR placement. He has advanced obstructive lung disease. He was seen in the heart failure clinic on the . He was noted to be fluid overloaded. Admission was recommended at that time but he elected for outpatient management. He was seen in the pulmonary clinic by Dr. Hensley yesterday and recommended that he be admitted to the hospital. The patient was admitted and received diuresis. This morning he is seen sitting up at the edge of his bed. He states he is having no breathing issues. He was on BiPAP last night. He does not like the mask. He has no prior history of sleep disordered breathing. He states it is very difficult to sleep with the mask in place and he does not believe he would be compliant with it in the long- term. He does not report wheezing. No chest pain or chest tightness. Allergies Allergy/AdvReac Type Severity Reaction Status Date / Time No Known Drug Allergies Allergy Verified 06/11/20 08:58 Home Medications Home Medications Medication Instructions Recorded Confirmed Type atorvastatin 80 mg tablet 80 mg PO DAILY 05/20/20 06/11/20 History escitalopram oxalate 20 mg tablet 20 mg PO DAILY 05/20/20 06/11/20 History ferrous sulfate 325 mg (65 mg 325 mg PO DAILY 05/20/20 06/11/20 History iron) tablet lorazepam 0.5 mg tablet 0.5 mg PO DAILY PRN 05/20/20 06/11/20 History losartan 25 mg tablet 12.5 mg PO DAILY tab 05/20/20 06/11/20 History magnesium 250 mg tablet 250 mg PO DAILY 05/20/20 06/11/20 History metolazone 2.5 mg tablet 2.5 mg PO DIRECTED PRN 05/20/20 06/11/20 History pantoprazole 40 mg tablet,delayed 40 mg PO BID tab 05/20/20 06/11/20 History release potassium chloride 20 mEq 20 meq PO BID 05/20/20 06/11/20 History tablet,extended release meclizine 12.5 mg tablet 12.5 mg PO TID PRN 05/21/20 06/11/20 History multivitamin 1 tab PO DAILY 05/21/20 06/11/20 History warfarin 5 mg tablet 5 mg PO DAILY 05/21/20 06/11/20 History torsemide 100 mg tablet 100 mg PO BID tab 06/03/20 06/11/20 History metoprolol tartrate 25 mg tablet 25 mg PO BID #60 tab 06/04/20 06/11/20 Rx calcium carbonate 600 mg calcium 600 mg PO BID tab 06/10/20 06/11/20 History (1,500 mg) tablet docusate sodium 100 mg capsule 100 mg PO BID 06/10/20 06/11/20 History fluticasone 250 mcg-salmeterol 50 1 puffs INH BID 06/10/20 06/11/20 History mcg/dose blistr powdr for inhalation metformin 500 mg tablet 500 mg PO BID 06/10/20 06/11/20 History sodium chloride 0.65 % nasal spray 2 sprays INTNAS BID ml 06/10/20 06/11/20 History aerosol acetaminophen 325 mg capsule 325 mg PO QID PRN 06/11/20 06/11/20 History warfarin 2.5 mg PO DIRECTED 06/11/20 06/11/20 History Patient History Medical History Anemia Aortic stenosis (Chronic) severe asymptomatic Chronic obstructive pulmonary disease OXYGEN 5L/MIN NC HS Chronic shortness of breath Dependent edema PRN diuretics History of carotid artery disease S/P L CEA 2013 History of GI bleed Hypertension Tobacco use disorder Surgical History History of appendectomy History of cataract surgery BILAT History of colonoscopy History of esophagogastroduodenoscopy (EGD) History of left-sided carotid endarterectomy 2013 History of tonsillectomy History of tooth extraction Toenail avulsion REMOVAL OF Social History Smoking Status: Former smoker Cigarettes Per Day: 20; Second Hand Exposure: No; Hx Alcohol Use: No Hx Substance Use: No Preferred Language: Fijian Communication Ability: Effective Visual Impairment: No Limitations Financial Processing Clerk Required: No Beliefs That Will Affect Care: None marital status: Current Living Situation: Spouse Other Information That Helps Us Care for You: No Feels Safe at Home: Yes Safety Concerns: Feels Safe At This Time Review of Systems Review of Systems: Please refer to admission H&P. No additions or deletions Physical Exam Constitutional: well developed and + acute distress (unable to lie flat due to SOB); + not well nourished Eyes: PERRL, conjunctivae normal, anicteric sclerae ENMT: Ears: + hearing impairment Neck: normal visual inspection, trachea midline, + short neck and + thick neck Respiratory: Auscultation: + diminished lung sounds (bibasal); no crackles, no rales, no rhonchi and no wheezes Cardiovascular: Rate/Rhythm: regular rate and regular rhythm Heart Sounds: no murmur Vessels: + JVD Extremities: normal capillary refill and + pedal edema (3+ b/l equal to hips); no calf tenderness Gastrointestinal (Abdomen): Inspection/Auscultation: abdomen normal to inspection and normal bowel sounds; abdomen not distended Percussion/Palpation: + abdomen tender (RUQ on deep palpation) and abdomen soft; no guarding and abdomen not rigid Musculoskeletal: no cyanosis or clubbing, extremities motor strength 5/5 Skin: no rashes, warm and dry Neurologic: moves all extremities, awake and + confused; no focal motor deficits (lateralizing) Speech / Cognition: normal speech Motor/Sensory: no tremor and no pronator drift Cranial Nerves: normal facial strength Psychiatric: Orientation: alert, oriented to person and oriented to place; + not oriented to time Genitourinary: no CVA tenderness Lymphatic: no cervical or axillary lymphadenopathy Results & Data Results & Data ([facility]) Vital Signs (Past 12 Hours) Vital Signs Temp Pulse Pulse Resp BP Pulse Ox 06/12/20 07:25 59 L 18 95 06/12/20 07:20 36.4 C L 58 L 20 113/60 92 06/12/20 03:28 86 86 18 94 06/12/20 03:18 36.5 C 62 20 155/57 H 95 06/11/20 23:41 36.3 C L 54 L 16 104/68 93 06/11/20 23:00 65 65 18 96 Laboratory Results 06/12/20 06:44 06/12/20 06:44 06/11/20 06/11/20 06/11/20 10:48 14:54 15:36 ABG pH Cancelled 7.35 ABG pCO2 Cancelled 88 H ABG pO2 Cancelled 53 L ABG HCO3 Cancelled 47 H ABG O2 Saturation Cancelled 81.0 L ABG Base Excess Cancelled 19.0 H VBG pH 7.33 L VBG pCO2 93 H VBG pO2 52 VBG HCO3 48 VBG O2 Saturation 79.2 VBG Base Excess 19.6 06/11/20 06/12/20 20:25 06:57 ABG pH 7.34 L 7.40 ABG pCO2 92 H 82 H ABG pO2 84 65 L ABG HCO3 49 H 50 H ABG O2 Saturation 94.6 90.0 ABG Base Excess 20.0 H 22.0 H VBG pH VBG pCO2 VBG pO2 VBG HCO3 VBG O2 Saturation VBG Base Excess Diagnostic Findings Chest x-rays from 06/11/2020 and 06/10/2020 were independently reviewed. There is cardiomegaly with mild pulmonary edema and bilateral pleural effusions with atelectatic changes. The patient's last pulmonary function tests are from October 2015. At that point time the FEV1 was 1.75 L or 51% predicted with an FVC of 2.36 L or 53% predicted. The ratio was 74. Bronchodilators were administered without s ignificant change in air flows. Lung volumes show total lung capacity of 84% predicted with an FRC of 101% predicted and an RV of 137% predicted. Diffusion capacity was 62% predicted. Flow volume loops were consistent with restrictive physiology CT of the chest from August 2018 was independently reviewed. No intrinsic parenchymal disease identified. PG Care Time/CCT Total # of Minutes Spent Total Time Spent with Patient: Total time spent is greater than 50% in coordination of care (as documented) at patient's floor/unit and/or counseling patient: Coding Level of Care Code 04023 Initial Inpt Care Lvl 3 Diagnoses Bilateral pleural effusion J90 Acute on chronic respiratory failure with hypoxia and hypercapnia J96.21; J96.22 Acute on chronic heart failure with preserved ejection fraction I50.33 COPD (chronic obstructive pulmonary disease) J44.9
[2020-06-12] MEDS ORDERED: PIPERACILL/TAZOBAC CONSULT ACTIVE PRN (09:21)
--- NOTE | 2020-06-12 09:59 | Hospitalist Progress Note ---
Date of Service June 12, 2020 Assessment & Plan (1) Acute on chronic heart failure with preserved ejection fraction: Richard Lobo is a 74yo M HFpEF echo 04/2020 EF 55-60%, aortic stenosis s/p TAVR, emphysema, anemia, CAD, HTN, chronic respiratory failure on 5L home O2, and GI bleed who presents with altered mental status for 4 days and increased dyspnea for 1 month. Altered mental status 2/2 hypercarbic metabolic encephalopathy ABG on admit pH 7.4, PCO2 82, O2 65, HCO3 50. Compensated pH with prominent respiratory acidosis Patient with chronic increased CO2 on BMPs in the past Suspect acute on chronic hypoxic respiratory failure from CHF as discussed below, ?hypercarbia etiology as below Report that patient had self decrease his oxygen from 5 L to 1 L, however discussion with patient suggest this was a concern that developed after he had already been becoming confused and that his confusion preceded this decrease Has been seen by the heart failure clinic, cardiology & pulm consulted. Chest x-ray with pulmonary edema and small chronic effusions Acute on Chronic Hypoxic Hypercarbic Respiratory failure 2/2 CHF with effusion +/- hypoxia and diagramatic weakness vs severe ABDIEL - Suspected due to congestive heart failure with underlying small chronic effusions. ?hypercarbia etiology. Severe hypoxia may contribute to MSK/diaphrag weakness vs obstructive apnea Patient on torsemide as outpatient, and previously on metolazone without significant improvement Trial cautious diuretics while observing RAND as below. Bumex 1 mg IV - High flow and BiPaP as needed. ABG pending for 1200 Strict I&O's Cardiology consulted Pulmonology consulted. Restrictive lung disease: Etiology is unclear. Recommend deferring PFTs until patient closer to baseline as outpatient, results would not be reliable at this time especially given his effusions. Recommend diuretic therapy for effusions at this time, tap could be considered but INR would have to be less than 1.5. Could consider nocturnal trilogy home ventilation for use however the patient reports that he is unlikely to be compliant with this going forward. - Continue LITIGATOR losartan 12.5mg daily, mtp 25mg PO BID (consider conversion to succinate when improved), atorv 80mg Afib on Warfain - Warfarin held on admit ?need for thoracentesis - Rate control w/ MTP tartrate 25mg PO BID - On tele - adequate rate control on admit, irreg on exam RAND on CKD, improved - baseline cr ~1.0, Peaked at 1.9 on admit, downtrended - Cr 1.34 today - Careful use of diuretics, bumex as above - BMP daily Cholecystitis, gallbladder distention CT abdomen shows distended gallbladder and 1.6 cm pancreatic head cyst Positive radiographic Guadalupe sign On clinic exam patient focally tender in right upper quadrant to palpation. He denies pain with meals, steatorrhea, or abdominal pain at rest Afebrile, no leukocytosis - Pt high risk for surgical intervention. - Zosyn medical therapy at this time. If worsened may be a perc candidate as surgical risk is very high Anx/Dep - LITIGATOR lexapro 20mg DVT PPx: SCDs. Warfarin held on admit Diet: HH Dispo: PCU (2) Metabolic alkalosis with respiratory acidosis: (3) Uremia: (4) COPD exacerbation: (5) Dependent edema: (6) Anemia: (7) History of GI bleed: (8) Hypertension: (9) DVT prophylaxis: (10) Acute metabolic encephalopathy: Admission and Anticipated Discharge Date Admission Date: June 11, 2020 Supervising Physician Co-Signing Physician Notes I personally examined the patient and verified all verma points of history and exam, discussed case, and agree with decision making with Dr Nathan. feeling a little better but still easily confused and tired. vitals noted no distress breathing unlabored on O2 no accessory msucles good effort skin no rashes no pallor or icterus no focal neuro deficits acute and chronic hypercapnic and hypoxic respiratory failure - severe COPD - concerning that he is compensated pH w pCO2 90, but seems that this is a large part of his dyspnea and confusion - redicussed need for ventilation and trial of bipap - he's now more willing. bipap HS, will need to set up for home if he stays willing. hypoxia probably also an element of HFpEF, although smaller than COPD - but try to optimize respiratory status w diuresis. probable cholecystitis - RUQ tenderness but otherwise no sx. US findings but fortunately labs reassuring. has no margin of error for septic physiology - therefore start abx coverage rather than watchful waiting given somewhat unclear situation. would not be surgical candidate therefore if worsens would have to attempt transfer for IR and cholecystostomy. DVT proph - anticoagulated on coumadin otherwise as above Nathaniel Richard is seen at the bedside this morning. He reports that he is not short of breath at rest, but with any activity quickly becomes short of breath. Denies chest pain. He is not sure if his legs have been more swollen in the last few days/weeks or if he has had weight gain. Somewhat poor historian, is not aware of the names of his different medications. Is oriented to month and year, but not day. Oriented to place. Reports he does not like to use BiPAP because he "cannot itch his face ". During subjective with speech he desats down to 75 SPO2, denies shortness of breath during this. Oxygen increased to approximately 6 L, patient returned to SPO2 of 96%. He denies abdominal pain at rest, denies right upper quadrant pain at rest, but endorses pain on light palpation of the right upper quadrant. He denies fever, chills, sweats. He denies increased pain with meals. He denies diarrhea and steatorrhea. Review of Systems Review of Systems: Constitutional: Denies fever, chills. Endorses fatigue Eyes: Denies acute vision change ENT: Denies ear pain, sore throat, sinus pain Cardiovascular: Denies Chest pain, chest pressure, palpitations. "not sure' if his legs have swollen in the last few days Respiratory: See HPI Gastrointestinal: Denies abdominal pain, nausea, vomiting, constipation, diarrhea at rest. RUQ pain on palp. Genitourinary: Denies pain with urination, urinary urgency, urinary frequency Musculoskeletal: Denies acute focal weakness, muscle aches/pain, joint aches/pain Integumentary:Denies rash, lesions, bruising Neurological: Denies headache, numbness, tingling Physical Exam Physical Exam: General: A&Ox2. NAD. Cooperative. HEENT: Atraumatic, normocephalic. PERLAA. Pulm: Diminished lung sounds, moderate air movement, trace crackles LLL without overt wheezes, -rales, -rhonchi. Symmetrical chest rise. No increase work of breathing. No respiratory distress. Cardiac: irregular, soft systolic murmur. Radial pulses intact and symmetrical. Abdominal: nondistended, soft. BS present. TTP RUQ, guadalupe's positive Results & Data Results & Data ([facility]) Vital Signs (Past 12 Hours) Vital Signs Temp Pulse Pulse Resp BP BP Pulse Ox 06/12/20 07:25 59 L 18 95 06/12/20 07:20 36.4 C L 58 L 20 113/60 92 06/12/20 03:28 86 86 18 94 06/12/20 03:18 36.5 C 62 20 155/57 H 95 06/11/20 23:41 36.3 C L 54 L 16 104/68 93 06/11/20 23:00 65 65 18 96 06/11/20 20:20 36.5 C 73 18 171/66 H 98 Resident Activity Tracking Resident Involvement: Resident Care Provided Care Provided: Adult Hospital Medicine (1) Anemia Anemia type: unspecified type Qualified Code(s): D64.9 - Anemia, unspecified (2) Hypertension Hypertension type: essential hypertension Qualified Code(s): I10 - Essential (primary) hypertension
[2020-06-12] MEDS ORDERED: PIPERACILLIN/TAZOBACTAM 3.375 GM in DEXTROSE 5% 100 ML IV ONE (10:00)
[2020-06-12] MEDS ORDERED: BUMETANIDE 1 MG TAB PO ONE (10:31)
[2020-06-12] MEDS ORDERED: BUMETANIDE 2 MG in SYRINGE 0 ML IV ONE (11:30)
[2020-06-12 11:52] LABS: Allen Test Pos (Pos); Base Excess ABG 21.4 mEq/L (-9-1.8); HCO3 ABG 50 mmol/L (19-24); PCO2 ABG 90 mmHg (35-46); PO2 ABG 77 mmHg (80-95); pH ABG 7.36 (7.35-7.45)
--- NOTE | 2020-06-12 12:33 | Cardiology Consultation ---
Date of Consultation June 12, 2020 Assessment & Plan (1) Acute on chronic heart failure with preserved ejection fraction: (2) Bilateral pleural effusion: (3) S/P TAVR (transcatheter aortic valve replacement): (4) Anemia: Patient with history of severe aortic stenosis recently hospitalized with complex course. Initially admitted to [facility] with acute respiratory failure/heart failure secondary to severe aortic stenosis. He was transferred to [facility] where he underwent cardiac catheterization showing no significant coronary disease. On 04/23/20 underwent successful TAVR. Hospital course was required by anemia requiring transfusion, bilateral pleural effusions requiring thoracentesis, SVT and discovery of left atrial appendage thrombus. Now admitted with acute on chronic hypercarbic respiratory failure, altered mental status, and acute on chronic diastolic congestive heart failure which failed to respond to escalation of outpatient diuretic therapy. Patient seems to responding well to IV diuretics, however he remains hypoxic with supplemental oxygen at 5L. His creatinine has improved since admission. Recommend continued diuresis with careful monitoring until euvolemic. Patient with minimal output after am dose of Lasix. He had an additional 2 mg of Bumex this am. Continue strict I&Os. Aim for negative 1-2 L per day. Recommend daily standing weights. Low sodium diet, less than 2,000 mg daily. Consider transitioning to Bumex on discharge pending response. Continue high-flow vs Bipap pending his tolerance. Planning to repeat ABGs today. Appreciate pulmonary input. Anticipate updated outpatient PFTs once optimized. No indication for steroids or antibiotics at this time. Potential candidate for nocturnal Trilogy but concerns about compliance. Continue diuresis for pleural effusions. Hold off on thoracentesis at this time, continue to monitor INR. Disposition: Anticipate continued close follow up with the heart failure program. Will follow during hospitalization. Plan of care discussed with Bran Shannon. History of Present Illness Attending Physician: Carlton Veloz DO Mr. Lobo is a 74 year old male with medical history significant for aortic stenosis now s/p TAVR (2019), COPD, chronic respiratory failure on O2, carotid artery stenosis status post CEA, tobacco use, history of GI bleed secondary to AVM and hypertension. Dr. De is his primary finance advisor. Dr. Chapman is his primary care. Recent cardiac studies: 1. 05/17/20 Echo: LV systolic function is normal, EF 55-60%. No regional wall motion abnormalities. Aortic valve well seated, normal gradient. Mild AR. Mild MS. Mild LVH. Patient has a history of aortic stenosis diagnosed on preoperative echocardiogram prior to CEA in 2018. He failed to followup with cardiology. On 04/13/20 he presented to [facility] emergency department acute shortness of breath and hypoxia. Shortness of breath had gradually been worsening for some time. Chest xray showed pulmonary edema and small pleural effusions. He was hypoxic requiring BiPAP. Troponin trended up and was noted to have ST elevations on EKG concerning for ACS. Echo showed severe aortic stenosis, LV dysfunction (EF 35%) with LAD wall motion abnormality. Also found to be anemic with a hemoglobin at 8.3 requiring transfusion. Reports he had been having black stools. He had acute renal insufficiency with a creatinine near 2.5. He was seen in cardiology consult by Dr. Silva, given the concern for ACS and worsening respiratory status requiring intubation he recommended transfer to a tertiary center. Patient was transferred to [facility] on 04/14/20. He underwent cardiac catheterization which was only remarkable for luminal irregularities but no significant coronary disease. LVEDP was elevated at 34 mmHg and peak aortic gradient was 85 mmHg. On 04/23/20 he underwent successful TAVR with #34mm Medtronic Evolut Pro. He had symptomatic SVT requiring amiodarone. Also evidence of left atrial appendage thrombus on FATIMAH, he was started on anticoagulation with warfarin. Hospitalization further complicated by bilateral pleural effusions requiring thoracentesis. He was discharged to [facility] for rehab and is now home with home health. He was initially evaluated by the heart failure program on 06/03/20. He was mildly hypervolemic but out of proportion to his dyspnea. Underlying pulmonary disease suspected. He continued Torsemide 100 mg BID and added Metolazone 2.5 mg Tues/Thurs of this week. Acetazolamide 250 mg x 3 days also recommended. PFTs when optimized and pulmonary referral recommended. Follow up labs demonstrate significant ongoing hypercapnia, worsening azotemia, and hypokalemia. On 06/07/20 his home physical therapist called reporting O2 saturation in the 70s on 5 L O2. ED was recommended but the patient did not go. We were unable to reach him later in the day for follow up. He was most recently evaluated as an outpatient on 06/10/20. He continued to examine slightly hypervolemic but was azotemic with attempts of increased diuretics. He was more confused and drowsy per his . O2 saturation was 98% on 5 L in the office. He was noted to be self decreasing his supplemental O2 to conserve when out of the house. We discussed evaluation at the ED but patient opted for outpatient management. Pulmonary referral was recommended. Patient was referred to the ED yesterday by Dr. Hensley and admitted for further management. Today patient is lying comfortably in bed. He states he's feeling better. His mental status seems improved. He feels his breathing is at baseline on 5L although his oxygen saturation has been in the 70s this am. He is not short of breath at rest. He has not been ambulatory since his admission. He did not tolerate BiPAP overnight due to discomfort. He reports he slept well with his head elevated. He denies worsening edema or abdominal distention. He has had 3 doses of Lasix 80 mg IV so far. Documentation in the chart reports minimal response to diuretics, - 400 mL as of this am. Nursing reports - 1300 mL so far. Patient reports "he's filled 4 bottles" since last night. Weight accuracy is questionable- 213 to 291 lb overnight? He denies chest pain, cough, palpitations . *Of note, there has been some confusion regarding his medications as an outpatient. Patient and confused regarding Metolazone TID vs x 3 days. confirmed to me that Metolazone was not taken TID. SocHx: He quit smoking in 2019. He and lives at home with his in [place]. 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 Allergies Allergy/AdvReac Type Severity Reaction Status Date / Time No Known Drug Allergies Allergy Verified 06/11/20 08:58 Home Medications Home Medications Medication Instructions Recorded Confirmed Type atorvastatin 80 mg tablet 80 mg PO DAILY 05/20/20 06/11/20 History escitalopram oxalate 20 mg tablet 20 mg PO DAILY 05/20/20 06/11/20 History ferrous sulfate 325 mg (65 mg 325 mg PO DAILY 05/20/20 06/11/20 History iron) tablet lorazepam 0.5 mg tablet 0.5 mg PO DAILY PRN 05/20/20 06/11/20 History losartan 25 mg tablet 12.5 mg PO DAILY tab 05/20/20 06/11/20 History magnesium 250 mg tablet 250 mg PO DAILY 05/20/20 06/11/20 History metolazone 2.5 mg tablet 2.5 mg PO DIRECTED PRN 05/20/20 06/11/20 History pantoprazole 40 mg tablet,delayed 40 mg PO BID tab 05/20/20 06/11/20 History release potassium chloride 20 mEq 20 meq PO BID 05/20/20 06/11/20 History tablet,extended release meclizine 12.5 mg tablet 12.5 mg PO TID PRN 05/21/20 06/11/20 History multivitamin 1 tab PO DAILY 05/21/20 06/11/20 History warfarin 5 mg tablet 5 mg PO DAILY 05/21/20 06/11/20 History torsemide 100 mg tablet 100 mg PO BID tab 06/03/20 06/11/20 History metoprolol tartrate 25 mg tablet 25 mg PO BID #60 tab 06/04/20 06/11/20 Rx calcium carbonate 600 mg calcium 600 mg PO BID tab 06/10/20 06/11/20 History (1,500 mg) tablet docusate sodium 100 mg capsule 100 mg PO BID 06/10/20 06/11/20 History fluticasone 250 mcg-salmeterol 50 1 puffs INH BID 06/10/20 06/11/20 History mcg/dose blistr powdr for inhalation metformin 500 mg tablet 500 mg PO BID 06/10/20 06/11/20 History sodium chloride 0.65 % nasal spray 2 sprays INTNAS BID ml 06/10/20 06/11/20 History aerosol acetaminophen 325 mg capsule 325 mg PO QID PRN 06/11/20 06/11/20 History warfarin 2.5 mg PO DIRECTED 06/11/20 06/11/20 History Patient History Medical History Anemia Aortic stenosis (Chronic) severe asymptomatic Chronic obstructive pulmonary disease OXYGEN 5L/MIN NC HS Chronic shortness of breath Dependent edema PRN diuretics History of carotid artery disease S/P L CEA 2013 History of GI bleed Hypertension Tobacco use disorder Surgical History History of appendectomy History of cataract surgery BILAT History of colonoscopy History of esophagogastroduodenoscopy (EGD) History of left-sided carotid endarterectomy 2014 History of tonsillectomy History of tooth extraction Toenail avulsion REMOVAL OF Family History Father Hypertension Social History Smoking Status: Former smoker Cigarettes Per Day: 20; Second Hand Exposure: No; Hx Alcohol Use: No Hx Substance Use: No Preferred Language: Bulgarian Communication Ability: Effective Visual Impairment: No Limitations Billing Assistant Required: No Beliefs That Will Affect Care: None marital status: Current Living Situation: Spouse Other Information That Helps Us Care for You: No Feels Safe at Home: Yes Safety Concerns: Feels Safe At This Time Review of Systems Review of Systems: As noted in HPI. All other ROS are reviewed and otherwise negative at this time. Physical Exam Physical Exam: General: No acute distress. O2 via nasal canula. Ill appearing. HEENT: Head is normal. PERRLA. EOMI. Sclerae anicteric. Ears, nose and throat unremarkable. Mucous membranes moist. Neck: Normal carotid upstrokes. Bilateral bruits. JVD noted just above the clavicle at 30 degrees. Lungs: Increased respiratory effort. Decreased breath sounds throughout. No wheezes or crackles. Cardiac: Regular rate and rhythm. S1-S2 normal. 2/6 systolic ejection murmur and 2/6 diastolic murmur best heard at lower left sternal border. Abdomen: Soft and nontender. Bowel sounds normal. No mass or organomegaly. No abdominal bruit. Extremities/vascular: Well perfused. 1+ edema to the knees bilaterally Radial 2+ bilaterally Pedal pulses intact. Neurologic: Nonfocal Psychiatric: Affect appropriate. Alert and oriented. Results & Data ([facility]) Vital Signs (Past 12 Hours) Vital Signs Temp Pulse Pulse Resp BP Pulse Ox Pulse Ox 06/12/20 11:10 57 L 18 95 06/12/20 11:06 97.7 F 55 L 20 129/87 94 06/12/20 08:00 72 95 06/12/20 07:25 59 L 18 95 06/12/20 07:20 97.5 F L 58 L 20 113/60 92 06/12/20 03:28 86 86 18 94 06/12/20 03:18 97.7 F 62 20 155/57 H 95 PG Care Time/CCT Total # of Minutes Spent Total Time Spent with Patient: Total time spent is greater than 50% in c oordination of care (as documented) at patient's floor/unit and/or counseling patient: Coding Level of Care Code 53822 Initial Inpt Care Lvl 3 Diagnoses Acute on chronic heart failure with preserved ejection fraction I50.33 Bilateral pleural effusion J90 S/P TAVR (transcatheter aortic valve replacement) Z95.2 Anemia D64.9 Anemia type: unspecified type (1) Anemia Anemia type: unspecified type Qualified Code(s): D64.9 - Anemia, unspecified
--- NOTE | 2020-06-12 15:37 | XCELERA ---
[id number]
--- NOTE | 2020-06-12 17:22 | Nephrology Consultation ---
Date of Consultation June 12, 2020 Assessment & Plan (1) Acute renal failure: Appears to be a hemodynamically mediated. Non-oliguric Improving with current therapy. Medications are appropriately dosed for kidney function. Volume status improving. Electrolytes normal. No additional evaluation necessary at this time. Documented input and output. Repeat metabolic profile tomorrow morning. (2) Uremia: Creatinine has normalized. The patient is not uremic from this degree and duration of renal dysfunction. He did not appear to be uremic on my assessment. He is azotemic related steroids and diuretic use. No additional therapy is indicated at this time. (3) Acute metabolic encephalopathy: Multifactorial. I do not believe kidney dysfunction is significantly contributing to this. History of Present Illness Reason for Consultation: uremic encephalopathy Requesting Physician: Miguel Tello MD Attending Physician: Carlton Veloz DO History of Present Illness Mr. Lobo is a 74 year old male with coronary artery disease, COPD, significant smoking history, hypertension, history of GI bleed due to AVM, and LV dysfunction. In April, he presented to [facility] in severe respiratory distress with RAND and acute on chronic anemia. He was transferred to [facility] where he underwent TAVR. Post procedure, he developed SVT and was found to have a thrombus in the left atrial appendage. Thoracentesis also performed for pleural effusions. He was discharged to [facility] prior to returning home with home health. Hospitalization was further complicated by RAND. Unfortunately, he has continued to struggle with significant ongoing dyspnea post hospitalization. He has been following closely in the heart failure clinic. Despite aggressive diuresis to manage his volume status there has not been significant improvement in his activity tolerance or baseline dyspnea. Mr. Lobo was then referred for pulmonary consultation. He saw Dr. Hensley on June 10 and was sent from the office to hospital for admission. Nephrology consultation was requested for evaluation of potential uremia. I saw the patient this morning. He was sitting in his bedside chair. He answered questions appropriate. Mr. Lobo expressed continued concerns and frustrations regarding his respiratory status and underlying cardiovascular disease. He was aware that he suffered from acute renal insufficiency during his recent hospitalization at [facility]. He has had RAND in the past. He has no urinary complaints. Appetite is good. Creatinine was 1.9 mg/dL on June 10. It is now 1.35 mg/dL. He is non-oliguric. UA demonstrates trace protein with acellular microscopy. Allergies Allergy/AdvReac Type Severity Reaction Status Date / Time No Known Drug Allergies Allergy Verified 06/11/20 08:58 Home Medications Home Medications Medication Instructions Recorded Confirmed Type atorvastatin 80 mg tablet 80 mg PO DAILY 05/20/20 06/11/20 History escitalopram oxalate 20 mg tablet 20 mg PO DAILY 05/20/20 06/11/20 History ferrous sulfate 325 mg (65 mg 325 mg PO DAILY 05/20/20 06/11/20 History iron) tablet lorazepam 0.5 mg tablet 0.5 mg PO DAILY PRN 05/20/20 06/11/20 History losartan 25 mg tablet 12.5 mg PO DAILY tab 05/20/20 06/11/20 History magnesium 250 mg tablet 250 mg PO DAILY 05/20/20 06/11/20 History metolazone 2.5 mg tablet 2.5 mg PO DIRECTED PRN 05/20/20 06/11/20 History pantoprazole 40 mg tablet,delayed 40 mg PO BID tab 05/20/20 06/11/20 History release potassium chloride 20 mEq 20 meq PO BID 05/20/20 06/11/20 History tablet,extended release meclizine 12.5 mg tablet 12.5 mg PO TID PRN 05/21/20 06/11/20 History multivitamin 1 tab PO DAILY 05/21/20 06/11/20 History warfarin 5 mg tablet 5 mg PO DAILY 05/21/20 06/11/20 History torsemide 100 mg tablet 100 mg PO BID tab 06/03/20 06/11/20 History metoprolol tartrate 25 mg tablet 25 mg PO BID #60 tab 06/04/20 06/11/20 Rx calcium carbonate 600 mg calcium 600 mg PO BID tab 06/10/20 06/11/20 History (1,500 mg) tablet docusate sodium 100 mg capsule 100 mg PO BID 06/10/20 06/11/20 History fluticasone 250 mcg-salmeterol 50 1 puffs INH BID 06/10/20 06/11/20 History mcg/dose blistr powdr for inhalation metformin 500 mg tablet 500 mg PO BID 06/10/20 06/11/20 History sodium chloride 0.65 % nasal spray 2 sprays INTNAS BID ml 06/10/20 06/11/20 History aerosol acetaminophen 325 mg capsule 325 mg PO QID PRN 06/11/20 06/11/20 History warfarin 2.5 mg PO DIRECTED 06/11/20 06/11/20 History Patient History Medical History Anemia Aortic stenosis (Chronic) severe asymptomatic Chronic obstructive pulmonary disease OXYGEN 5L/MIN NC HS Chronic shortness of breath Dependent edema PRN diuretics History of carotid artery disease S/P L CEA 2013 History of GI bleed Hypertension Tobacco use disorder Surgical History History of appendectomy History of cataract surgery BILAT History of colonoscopy History of esophagogastroduodenoscopy (EGD) History of left-sided carotid endarterectomy 2013 History of tonsillectomy History of tooth extraction Toenail avulsion REMOVAL OF Family History Father Hypertension Social History Smoking Status: Former smoker Cigarettes Per Day: 20; Second Hand Exposure: No; Hx Alcohol Use: No Hx Substance Use: No Preferred Language: Kiswahili Communication Ability: Effective Visual Impairment: No Limitations Customer Success Associate Required: No Beliefs That Will Affect Care: None marital status: Current Living Situation: Spouse Other Information That Helps Us Care for You: No Feels Safe at Home: Yes Safety Concerns: Feels Safe At This Time Review of Systems Review of Systems: All systems reviewed & are unremarkable except as noted in HPI & below Constitutional: + fatigue and + weakness; no fever and no chills Respiratory: + dyspnea; no cough Cardiovascular: + edema; no chest pain, no palpitations, no lightheadedness and no syncope Physical Exam Constitutional: + ill appearing; no acute distress Eyes: + anicteric sclerae; no corneal abnormality ENMT: Mouth: no oral mucosal abnormality and oral mucous membranes not dry Neck: normal visual inspection and trachea midline Respiratory: + labored breathing Auscultation: + diminished lung sounds and + rales (faint L>R basilar); no wheezes Cardiovascular: Rate/Rhythm: + bradycardic Heart Sounds: normal S1, normal S2 and + murmur Vessels: + JVD Extremities: + edema Gastrointestinal (Abdomen): Percussion/Palpation: abdomen soft; abdomen nontender Musculoskeletal: Extremities: no cyanosis and no clubbing Skin: + turgor decreased and + dry skin Neurologic: Motor/Sensory: no tremor and no asterixis Psychiatric: Orientation: alert and oriented x 3 Results & Data Vital Signs (Past 12 Hours) Vital Signs Temp Pulse Pulse Resp BP Pulse Ox Pulse Ox 06/12/20 15:12 36.6 C 68 19 127/53 L 99 06/12/20 15:07 69 20 90 06/12/20 11:10 57 L 18 95 06/12/20 11:06 36.5 C 55 L 20 129/87 94 06/12/20 08:00 72 95 06/12/20 07:25 59 L 18 95 06/12/20 07:20 36.4 C L 58 L 20 113/60 92 Laboratory Results Laboratory Results - last 24 hr 06/11/20 06/11/20 06/11/20 14:54 20:25 20:47 WBC RBC Hgb Hct MCV MCH MCHC RDW Std Deviation RDW Coeff of Vesta Plt Count MPV Immature Gran % (Auto) Neut % (Auto) Lymph % (Auto) [place] % (Auto) Eos % (Auto) Baso % (Auto) Neut # (Auto) Lymph # (Auto) [place] # (Auto) Eos # (Auto) Baso # (Auto) Immature Gran # (Auto) PT INR ABG pH 7.34 L ABG pCO2 92 H ABG pO2 84 ABG HCO3 49 H ABG O2 Saturation 94.6 ABG Base Excess 20.0 H Bacilio Test Pos Barometric Pressure 732.6 Oxygen Given 50% BIPAP Sodium Potassium Chloride Carbon Dioxide Anion Gap BUN Creatinine Est Cr Clr Drug Dosing Est GFR ( Amer) Est GFR (Non-Af Amer) BUN/Creatinine Ratio Glucose POC Glucose 213 H Estimat Average Glucose Hemoglobin A1c Calcium Total Bilirubin Direct Bilirubin AST ALT Alkaline Phosphatase Total Protein Albumin TSH Crossmatch See Detail 06/12/20 06/12/20 06/12/20 06:44 06:44 06:44 WBC 4.27 L RBC 2.98 L Hgb 8.4 L Hct 28.0 L MCV 94.0 MCH 28.2 MCHC 30.0 L RDW Std Deviation 52.9 H RDW Coeff of Vesta 15.3 H Plt Count 286 MPV 9.6 Immature Gran % (Auto) 0.0 Neut % (Auto) 70.4 Lymph % (Auto) 10.8 [place] % (Auto) 17.8 Eos % (Auto) 0.5 Baso % (Auto) 0.5 Neut # (Auto) 3.01 Lymph # (Auto) 0.46 L [place] # (Auto) 0.76 H Eos # (Auto) 0.02 Baso # (Auto) 0.02 Immature Gran # (Auto) 0.00 PT INR ABG pH ABG pCO2 ABG pO2 ABG HCO3 ABG O2 Saturation ABG Base Excess Bacilio Test Barometric Pressure Oxygen Given Sodium 142 Potassium 4.7 Chloride 94 L Carbon Dioxide 50 H* Anion Gap -2.0 L BUN 58 H Creatinine 1.34 Est Cr Clr Drug Dosing 48.4 Est GFR ( Amer) 59.2 Est GFR (Non-Af Amer) 51.1 BUN/Creatinine Ratio 43.2 H Glucose 104 H POC Glucose Estimat Average Glucose 117 Hemoglobin A1c 5.7 H Calcium 9.8 Total Bilirubin 0.4 Direct Bilirubin 0.1 AST 15 ALT 32 Alkaline Phosphatase 67 Total Protein 6.5 Albumin 3.2 L TSH 2.400 Crossmatch 06/12/20 06/12/20 06/12/20 06:44 06:57 07:27 WBC RBC Hgb Hct MCV MCH MCHC RDW Std Deviation RDW Coeff of Vesta Plt Count MPV Immature Gran % (Auto) Neut % (Auto) Lymph % (Auto) [place] % (Auto) Eos % (Auto) Baso % (Auto) Neut # (Auto) Lymph # (Auto) [place] # (Auto) Eos # (Auto) Baso # (Auto) Immature Gran # (Auto) PT 22.8 H INR 2.3 H ABG pH 7.40 ABG pCO2 82 H ABG pO2 65 L ABG HCO3 50 H ABG O2 Saturation 90.0 ABG Base Excess 22.0 H Bacilio Test Pos Barometric Pressure 732.6 Oxygen Given 30% Sodium Potassium Chloride Carbon Dioxide Anion Gap BUN Creatinine Est Cr Clr Drug Dosing Est GFR ( Amer) Est GFR (Non-Af Amer) BUN/Creatinine Ratio Glucose POC Glucose 115 H Estimat Average Glucose Hemoglobin A1c Calcium Total Bilirubin Direct Bilirubin AST ALT Alkaline Phosphatase Total Protein Albumin TSH Crossmatch 06/12/20 06/12/20 06/12/20 11:33 11:36 16:28 WBC RBC Hgb Hct MCV MCH MCHC RDW Std Deviation RDW Coeff of Vesta Plt Count MPV Immature Gran % (Auto) Neut % (Auto) Lymph % (Auto) [place] % (Auto) Eos % (Auto) Baso % (Auto) Neut # (Auto) Lymph # (Auto) [place] # (Auto) Eos # (Auto) Baso # (Auto) Immature Gran # (Auto) PT INR ABG pH 7.36 ABG pCO2 90 H ABG pO2 77 L ABG HCO3 50 H ABG O2 Saturation 94.0 ABG Base Excess 21.4 H Bacilio Test Pos Barometric Pressure 732.8 Oxygen Given 5 Sodium Potassium Chloride Carbon Dioxide Anion Gap BUN Creatinine Est Cr Clr Drug Dosing Est GFR ( Amer) Est GFR (Non-Af Amer) BUN/Creatinine Ratio Glucose POC Glucose 133 H 190 H Estimat Average Glucose Hemoglobin A1c Calcium Total Bilirubin Direct Bilirubin AST ALT Alkaline Phosphatase Total Protein Albumin TSH Crossmatch PG Care Time/CCT Total # of Minutes Spent Total Time Spent with Patient: Total time spent is greater than 50% in coordination of care (as documented) at patient's floor/unit and/or counseling patient: Coding Level of Care Code 56441 Inpt Consult Level 3 Diagnoses Acute renal failure N17.9 Acute renal failure type: unspecified Uremia N19 Acute metabolic encephalopathy G93.41 (1) Acute renal failure Acute renal failure type: unspecified Qualified Code(s): N17.9 - Acute kidney failure, unspecified
[2020-06-12] MEDS: PIPERACILLIN/TAZOBACTAM 3.375 GM in DEXTROSE 5% 100 ML IV SCH (17:27)
[2020-06-12 18:36] LABS: Base Excess VBG 19.9 mEq/L; HCO3 VBG 48 mmol/L; PCO2 VBG 93 mmHg (38-50); PO2 VBG 28 mmHg; pH VBG 7.33 (7.36-7.41)
[2020-06-12 19:01] LABS: Oxygen Saturation VBG < 60.0 %
--- NOTE | 2020-06-12 19:37 | Billing Data ---
Date of Service June 12, 2020 Coding Level of Care Code 76381 Subseq Hosp Care Lvl 3
[2020-06-13] MEDS: PIPERACILLIN/TAZOBACTAM 3.375 GM in DEXTROSE 5% 100 ML IV SCH ×3 (00:48→16:32)
[2020-06-13] MEDS: ALBUT/IPRATROP 3MG/0.5MG NEB 3 ML VIAL NEB SCH ×6 (03:31→23:26)
[2020-06-13] MEDS: INSULIN ASPART 100 UNITS/ML 3 ML PEN SC SCH ×4 (08:04→21:12)
[2020-06-13] MEDS: FLUTICASONE/VILANTEROL 100/25MCG 14 PUFFS/INHALER INH SCH (08:09)
[2020-06-13] MEDS: POTASSIUM CHLORIDE 20 MEQ TABCR PO SCH ×2 (08:10→20:34)
[2020-06-13] MEDS: FUROSEMIDE 80 MG in SYRINGE 0 ML IV SCH ×2 (08:10→16:31)
[2020-06-13] MEDS: LOSARTAN POTASSIUM 25 MG TAB PO SCH (08:10)
[2020-06-13] MEDS: PANTOprazole 40 MG TAB PO SCH ×2 (08:11→20:35)
[2020-06-13] MEDS: MULTIVITAMIN TAB PO SCH (08:11)
[2020-06-13] MEDS: METOPROLOL TARTRATE 25 MG TAB PO SCH ×2 (08:11→20:34)
[2020-06-13] MEDS: DOCUSATE SODIUM 100 MG CAP PO SCH ×2 (08:11→20:34)
[2020-06-13] MEDS: ESCITALOPRAM OXALATE 20 MG TAB PO SCH (08:12)
[2020-06-13] MEDS: FERROUS SULFATE 325 MG TAB PO SCH (08:12)
[2020-06-13] MEDS: ATORVASTATIN 40 MG TAB PO SCH (08:12)
[2020-06-13] MEDS: MAGNESIUM OXIDE 400 MG TAB PO SCH (08:12)
[2020-06-13] MEDS: SODIUM CHLORIDE 0.65% NA SOLN 45 ML (OCEAN) NAE SCH ×2 (08:13→20:35)
--- NOTE | 2020-06-13 08:17 | Cardiology Progress Note ---
Date of Service June 13, 2020 Assessment & Plan (1) Acute on chronic diastolic (congestive) heart failure: 2. Hypoxemic and hypercarbic respiratory failure 3. Prior severe aortic stenosis post TAVR 4. Acute on chronic renal insufficiency 5. Anemia 6. 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 Paroxysmal SVT 8. Restrictive lung disease 9. Type 2 diabetes Patient breathing comfortably, O2 sats in the 90s on 5 L. Mental status appears at baseline Hemodynamically and electrically stable. Well perfused on exam with mild residual pulmonary, systemic venous congestion. Diuresing well with 3 times daily diuretics yesterday. Repeat renal function pending. Continue IV diuresis, will increase Lasix to 80 mg 3 times daily Continue current beta-criss, ARB If no plans for intervention resume anticoagulation Up out of bed today We will continue to follow. Admission and Anticipated Discharge Date Admission Date: June 11, 2020 Subjective Patient sitting up in chair today. States breathing still rough, slightly improved from admission. Denies chest pain. Able to sleep flat with BiPAP overnight. Urine output 2.3 L, -1 L Telemetry reviewedno arrhythmia Review of Systems Review of Systems: All systems reviewed & are unremarkable except as noted in HPI & below Physical Exam Physical Exam: General: Comfortable, no acute distress HEENT: Sclerae anicteric, mucous membranes moist Lungs: Decreased breath sounds at right base with few crackles bilaterally. Cardiac: Regular rate and rhythm, 2/6 systolic ejection murmur heard best the right upper sternal border with crisp bioprosthetic closure Abdomen: Soft, nontender, nondistended, positive bowel sounds. Extremities: Warm, well perfused, 1-2+ pitting edema to mid shins Skin: No rashes or lesions. Neuro: Nonfocal Psych: Alert orient x3, normal affect and mood Results & Data ([facility]) Vital Signs (Past 12 Hours) Vital Signs Temp Pulse Pulse Resp BP Pulse Ox 06/13/20 07:30 73 06/13/20 07:09 71 18 93 06/13/20 03:44 98.8 F 57 L 18 144/61 H 98 06/13/20 03:33 64 20 98 06/13/20 03:32 64 20 98 06/13/20 00:00 67 06/12/20 22:56 97.5 F L 62 20 155/57 H 100 07/22/20 22:04 65 15 88 L 06/12/20 22:03 65 15 88 L PG Care Time/CCT Total # of Minutes Spent Total Time Spent with Patient: Total time spent is greater than 50% in coordinat ion of care (as documented) at patient's floor/unit and/or counseling patient: Coding Level of Care Code 40128 Subseq Hosp Care Lvl 3 Diagnoses Acute on chronic diastolic (congestive) heart failure I50.33
[2020-06-13 08:47] LABS: Basophils # (auto) 0.04 K/uL (0-0.2); Basophils % (auto) 0.5 %; Eosinophils # (auto) 0.16 K/uL (0-0.5); Eosinophils % (auto) 2.1 %; Hematocrit (blood only) 31.3 % (42-52); Hemoglobin 9.2 g/dL (14.0-18.0); Immature Granulocytes # (auto) 0.02 K/uL (0.00-0.02); Immature Granulocytes % (auto) 0.3 %; Lymphocytes # (auto) 0.53 K/uL (1.2-3.4); Mean Corpuscular Hemoglobin 28.2 pg (25-34); Mean Corpuscular Hgb Conc 29.4 g/dL (32-36); Mean Platelet Volume 10.1 fL (7.4-10.4); Monocytes # (auto) 0.84 K/uL (0.11-0.59); Monocytes % (auto) 11.1 %; Platelet Count 319 K/uL (130-400); RDW Coefficient of Variation 15.5 % (11.5-14.5); RDW Standard Deviation 54.4 fL (36.4-46.3); Red Blood Count 3.26 M/uL (4.7-6.1); White Blood Count 7.59 K/uL (4.8-10.8)
[2020-06-13 08:50] LABS: Allen Test Pos (Pos); Base Excess ABG 21.1 mEq/L (-9-1.8); HCO3 ABG 47 mmol/L (19-24); Oxygen Saturation ABG 99.4 % (90-95); PCO2 ABG 66 mmHg (35-46); PO2 ABG 180 mmHg (80-95); pH ABG 7.47 (7.35-7.45)
[2020-06-13 08:57] LABS: INR 1.7 (0.9-1.1); Prothrombin Time 17.7 Seconds (9.0-12.0)
--- NOTE | 2020-06-13 09:16 | Nephrology Progress Note ---
Date of Service June 13, 2020 Assessment & Plan (1) Acute renal failure: Hemodynamically mediated. Non-oliguric Resolving. Metabolic profile pending this AM. Medications are appropriately dosed for kidney function. Volume status improving. Continue to monitor metabolic profile while inpatient. Nephrology will sign-off. Please call with additional questions or concerns. (2) Uremia: No evidence of uremia at this time. Kidney function acceptable. No additional evaluation. (3) Acute metabolic encephalopathy: Appears to be improving with supportive care. Please call with questions or concerns. Admission and Anticipated Discharge Date Admission Date: June 11, 2020 Subjective Out of bed to bathroom this morning. Breathing improving. Activity tolerance slightly improved. Appetite is good. No fevers or chills. Review of Systems Review of Systems: All systems reviewed & are unremarkable except as noted in HPI & below Physical Exam Constitutional: + ill appearing; no acute distress Eyes: + anicteric sclerae; no corneal abnormality ENMT: Mouth: no oral mucosal abnormality and oral mucous membranes not dry Neck: normal visual inspection and trachea midline Respiratory: + labored breathing Auscultation: + diminished lung sounds and + rales (faint L>R basilar); no wheezes Cardiovascular: Rate/Rhythm: + bradycardic Heart Sounds: normal S1, normal S2 and + murmur Vessels: + JVD Extremities: + edema Gastrointestinal (Abdomen): Percussion/Palpation: abdomen soft; abdomen nontender Musculoskeletal: Extremities: no cyanosis and no clubbing Skin: + turgor decreased and + dry skin Neurologic: Motor/Sensory: no tremor and no asterixis Psychiatric: Orientation: alert and oriented x 3 Results & Data ([facility]) Vital Signs (Past 12 Hours) Vital Signs Temp Pulse Pulse Resp BP Pulse Ox 06/13/20 08:09 37.0 C 88 18 143/59 H 96 06/13/20 07:30 73 06/13/20 07:09 71 18 93 06/13/20 03:44 37.1 C 57 L 18 144/61 H 98 06/13/20 03:33 64 20 98 06/13/20 03:32 64 20 98 06/13/20 00:00 67 06/12/20 22:56 36.4 C L 62 20 155/57 H 100 06/12/20 22:04 65 15 88 L 06/12/20 22:03 65 15 88 L Laboratory Results Laboratory Results - last 24 hr 06/12/20 06/12/20 06/12/20 11:33 11:36 16:28 WBC RBC Hgb Hct MCV MCH MCHC RDW Std Deviation RDW Coeff of Vesta Plt Count MPV Immature Gran % (Auto) Neut % (Auto) Lymph % (Auto) [place] % (Auto) Eos % (Auto) Baso % (Auto) Neut # (Auto) Lymph # (Auto) [place] # (Auto) Eos # (Auto) Baso # (Auto) Immature Gran # (Auto) PT INR ABG pH 7.36 ABG pCO2 90 H ABG pO2 77 L ABG HCO3 50 H ABG O2 Saturation 94.0 ABG Base Excess 21.4 H Bacilio Test Pos VBG pH VBG pCO2 VBG pO2 VBG HCO3 VBG O2 Saturation VBG Base Excess Barometric Pressure 732.8 Oxygen Given 5 Sodium Potassium Chloride Carbon Dioxide Anion Gap BUN Creatinine Est Cr Clr Drug Dosing Est GFR ( Amer) Est GFR (Non-Af Amer) BUN/Creatinine Ratio Glucose POC Glucose 133 H 190 H Calcium Total Bilirubin AST ALT Alkaline Phosphatase Total Protein Albumin Globulin Albumin/Globulin Ratio 06/12/20 06/12/20 06/13/20 18:17 20:31 07:34 WBC RBC Hgb Hct MCV MCH MCHC RDW Std Deviation RDW Coeff of Vesta Plt Count MPV Immature Gran % (Auto) Neut % (Auto) Lymph % (Auto) [place] % (Auto) Eos % (Auto) Baso % (Auto) Neut # (Auto) Lymph # (Auto) [place] # (Auto) Eos # (Auto) Baso # (Auto) Immature Gran # (Auto) PT INR ABG pH ABG pCO2 ABG pO2 ABG HCO3 ABG O2 Saturation ABG Base Excess Bacilio Test VBG pH 7.33 L VBG pCO2 93 H VBG pO2 28 VBG HCO3 48 VBG O2 Saturation < 60.0 VBG Base Excess 19.9 Barometric Pressure 731.7 Oxygen Given Sodium Potassium Chloride Carbon Dioxide Anion Gap BUN Creatinine Est Cr Clr Drug Dosing Est GFR ( Amer) Est GFR (Non-Af Amer) BUN/Creatinine Ratio Glucose POC Glucose 166 H 136 H Calcium Total Bilirubin AST ALT Alkaline Phosphatase Total Protein Albumin Globulin Albumin/Globulin Ratio 07/23/20 07/23/20 07/23/20 08:26 08:26 08:26 WBC 7.59 RBC 3.26 L Hgb 9.2 L Hct 31.3 L MCV 96.0 MCH 28.2 MCHC 29.4 L RDW Std Deviation 54.4 H RDW Coeff of Vesta 15.5 H Plt Count 319 MPV 10.1 Immature Gran % (Auto) 0.3 Neut % (Auto) 79.0 Lymph % (Auto) 7.0 [place] % (Auto) 11.1 Eos % (Auto) 2.1 Baso % (Auto) 0.5 Neut # (Auto) 6.00 Lymph # (Auto) 0.[address] [place] # (Auto) 0.84 H Eos # (Auto) 0.16 Baso # (Auto) 0.04 Immature Gran # (Auto) 0.02 PT 17.7 H INR 1.7 H ABG pH ABG pCO2 ABG pO2 ABG HCO3 ABG O2 Saturation ABG Base Excess Bacilio Test VBG pH VBG pCO2 VBG pO2 VBG HCO3 VBG O2 Saturation VBG Base Excess Barometric Pressure Oxygen Given Sodium Pending Potassium Pending Chloride Pending Carbon Dioxide Pending Anion Gap Pending BUN Pending Creatinine Pending Est Cr Clr Drug Dosing Pending Est GFR ( Amer) Pending Est GFR (Non-Af Amer) Pending BUN/Creatinine Ratio Pending Glucose Pending POC Glucose Calcium Pending Total Bilirubin Pending AST Pending ALT Pending Alkaline Phosphatase Pending Total Protein Pending Albumin Pending Globulin Pending Albumin/Globulin Ratio Pending 06/13/20 08:35 WBC RBC Hgb Hct MCV MCH MCHC RDW Std Deviation RDW Coeff of [place]esta Plt Count MPV Immature Gran % (Auto) Neut % (Auto) Lymph % (Auto) [place] % (Auto) Eos % (Auto) Baso % (Auto) Neut # (Auto) Lymph # (Auto) [place] # (Auto) Eos # (Auto) Baso # (Auto) Immature Gran # (Auto) PT INR ABG pH 7.47 H ABG pCO2 66 H ABG pO2 180 H ABG HCO3 47 H ABG O2 Saturation 99.4 H ABG Base Excess 21.1 H Bacilio Test Pos VBG pH VBG pCO2 VBG pO2 VBG HCO3 VBG O2 Saturation VBG Base Excess Barometric Pressure 733.9 Oxygen Given 5 L Sodium Potassium Chloride Carbon Dioxide Anion Gap BUN Creatinine Est Cr Clr Drug Dosing Est GFR ( Amer) Est GFR (Non-Af Amer) BUN/Creatinine Ratio Glucose POC Glucose Calcium Total Bilirubin AST ALT Alkaline Phosphatase Total Protein Albumin Globulin Albumin/Globulin Ratio PG Care Time/CCT Total # of Minutes Spent Total Time Spent with Patient: Total time spent is greater than 50% in coordination of care (as documented) at patient's floor/unit and/or counseling patient: Coding Level of Care Code 77548 Subseq Hosp Care Lvl 2 Diagnoses Acute renal failure N17.9 Acute renal failure type: unspecified Uremia N19 Acute metabolic encephalopathy G93.41 (1) Acute renal failure Acute renal failure type: unspecified Qualified Code(s): N17.9 - Acute kidney failure, unspecified
--- NOTE | 2020-06-13 09:19 | Hospitalist Progress Note ---
Date of Service June 13, 2020 Assessment & Plan (1) Acute on chronic heart failure with preserved ejection fraction: Richard Lobo is a 74yo M HFpEF echo 04/2020 EF 55-60%, aortic stenosis s/p TAVR, emphysema, anemia, CAD, HTN, chronic respiratory failure on 5L home O2, and GI bleed who presents with altered mental status for 4 days and increased dyspnea for 1 month. Altered mental status 2/2 hypercarbic metabolic encephalopathy ABG on admit pH 7.4, PCO2 82, O2 65, HCO3 50. Compensated pH with prominent respiratory acidosis -ABG 06/13 after tolerating BiPAP well overnight with pH 7.47/PCO2 66/HCO3 47/PO2 180 consistent with primary metabolic alkalosis with secondary underlying respiratory acidosis. Suspect metabolic alkalosis due to diuretic therapy with contraction alkalosis. PCO2 improving from 80s down to 60s on BiPAP, patient will require trilogy at home. BiPAP has been considered and ruled out as patient requires AVAPSAE to achieve adequate ventilation. Patient with chronic increased CO2 on BMPs in the past Report that patient had self decrease his oxygen from 5 L to 1 L, however discussion with patient suggest this was a concern that developed after he had already been becoming confused and that his confusion preceded this decrease. While his hypoxia is likely affected by his underlying lung disease and CHF, suspect the hypercarbia is a secondary obstructive versus diaphragmatic process Has been seen by the heart failure clinic, cardiology & pulm consulted. Chest x-ray with pulmonary edema and small chronic effusions. Repeat portable pending. Acute on Chronic Hypoxic Hypercarbic Respiratory failure 2/2 CHF with effusion +/- hypoxia and diagramatic weakness vs severe ABDIEL - Suspected due to congestive heart failure with underlying small chronic effusions. Severe hypoxia may contribute to MSK/diaphrag weakness vs obstructive apnea Patient on torsemide as outpatient, and previously on metolazone without significant improvement - High flow and BiPaP as needed. Strict I&O's Mild output in response to Bumex IV (800 cc and shift following administration) Cardiology consulted. Per cards will adjust Lasix to 80 mg 3 times daily. Pulmonology consulted. Restrictive lung disease: Etiology is unclear. Recommend deferring PFTs until patient closer to baseline as outpatient, results would not be reliable at this time especially given his effusions. Recommend diuretic therapy for effusions at this time, tap could be considered but INR would have to be less than 1.5. Could consider nocturnal trilogy home ventilation for use however the patient reports that he is unlikely to be compliant with this going forward. - Continue STATISTICAL REPORTING ANALYST losartan 12.5mg daily, mtp 25mg PO BID (consider conversion to succinate when improved), atorv 80mg -Patient with mild shortness of breath this morning, but on his normal baseline 5 L oxygen requirement. CXR pending, if effusions improved with medical therapy and no plans for thoracentesis anticipate resuming anticoagulation Afib on Warfarin - Warfarin held on admit ?need for thoracentesis, pending eval and potential resumption of anticoagulation today as above - Rate control w/ MTP tartrate 25mg PO BID - On tele - adequate rate control on admit, irreg on exam RAND on CKD, improved - baseline cr ~1.0, Peaked at 1.9 on admit, downtrended - Cr 1.09 today, tolerated diuresis well -Mild to moderate output to Lasix and Bumex yesterday with 800 cc per shift after Bumex administration Lasix 80 mg 3 times daily per cards as above Nephrology saw patient today, to sign off. Repeat recs. - BMP daily Cholecystitis, gallbladder distention CT abdomen shows distended gallbladder and 1.6 cm pancreatic head cyst Positive radiographic Guadalupe sign On clinic exam patient focally tender in right upper quadrant to palpation. He denies pain with meals, steatorrhea, or abdominal pain at rest Afebrile, no leukocytosis - Pt high risk for surgical intervention. - Zosyn medical therapy at this time. If worsened may be a perc candidate as surgical risk is very high Anx/Dep - STATISTICAL REPORTING ANALYST lexapro 20mg DVT PPx: SCDs. Warfarin held on admit Diet: HH Dispo: PCU (2) Metabolic alkalosis with respiratory acidosis: (3) Uremia: (4) COPD exacerbation: (5) Dependent edema: (6) Anemia: (7) History of GI bleed: (8) Hypertension: (9) DVT prophylaxis: (10) Acute metabolic encephalopathy: (11) Acute on chronic respiratory failure with hypoxia and hypercapnia: Admission and Anticipated Discharge Date Admission Date: June 11, 2020 Supervising Physician Co-Signing Physician Notes I personally examined the patient and verified all verma points of history and exam, discussed case, and agree with decision making with Dr Baresel. feeling much better and much sharper mentally as well. discussed severity of respiratory illness, applauded his tolerating bipap. discussed goals - mostly what makes him happy is going fishing - he and a friend - about 80-90yds from car to boat then he just sits. vitals noted no distress breathing unlabored on O2 no accessory muscles good effort skin no rashes no pallor or icterus no focal neuro deficits, much more alert and interactive acute and chronic hypercapnic and hypoxic respiratory failure - restrictive lung disease unclear etiology ?neuromuscular weakness - improved well w bipap. setting up device for home - due to chronic respiratory failure consequent to restrctive lung disease and chronic hypoventialtion, patient now requires a noninvasive home ventilator. bilevel therapy with and without a rate would be ineffective as pt requires a volume targeted mode. ventilation is required to decrease the work of breathing and improve pulmonary status. interruption of ventilator support would clearly lead to a decline of health status, as evidenced by his symptoms and ABGs earlier in hospital stay vs now after a night of respiratory therapist directed noninvasive ventilation. almost certainly will need chronic O2 as well. continue to diurese for acute on chronic HFpEF but this is probably a much smaller player in his respiratory failure. probable cholecystitis - RUQ tenderness but otherwise no sx. US findings but fortunately labs reassuring. has no margin of error for septic physiology - therefore treating empirically w abx. would not be surgical candidate therefore if worsens would have to attempt transfer for IR and cholecystostomy. DVT proph - anticoagulated on coumadin otherwise as above, ABG this AM reassuring that he will make progress towards home - will need trilogy and O2, we started a fairly loose discussion of goals of care in outlining the severity of his respiratory illness, but he is motivat ed to wear device and try to work on getting stronger, he has modest and fairly realistic goals for quality of life (fishing with his lei) -- therefore would mostly work towards helping him achieve his stated goals. would have neurology eval for ?cause of neuromuscular weakness Subjective Richard is seen at the bedside this morning. He is sitting up in his recliner chair, reports he still feels slightly short of breath but somewhat better than when he came in. He reports he used the BiPAP last night and while it was not comfortable and annoying, was tolerable. He wore it for most of the night. He feels less confused than when he came in, but still feels that he is slightly more confused than his normal baseline and much more forgetful. He is frustrated that he has been a little more short of breath than normal when trying to be up and walking around. Denies fever, chills, sweats. No cough. No lightheadedness or dizziness. He understands that with his multiple medical issues his oxygen status is different from his hypercarbia, and that while nasal oxygen might help improve his SPO2 numbers (wears a finger pulse ox most of the day), it does not mean that he is ventilating well and blowing off his carbon dioxide. Is agreeable to using a trilogy at home. Endorses intermittent dysuria "bites to me a little bit "when he pees, but is unable to tell if he has had pain lately due to his Lozano Review of Systems Review of Systems: Constitutional: Denies fever, chills. Endorses fatigue Eyes: Denies acute vision change ENT: Denies ear pain, sore throat, sinus pain Cardiovascular: Denies Chest pain, chest pressure, palpitations. "not sure' if his legs have swollen in the last few days Respiratory: See HPI Gastrointestinal: Denies abdominal pain, nausea, vomiting, constipation, diarrhea at rest. RUQ pain on palp. Genitourinary: Endorses intermittent dysuria and 'bite with urination' but can't tell while his lozano is in Musculoskeletal: Denies acute focal weakness, muscle aches/pain, joint aches/pain Integumentary:Denies rash, lesions, bruising Neurological: Denies headache, numbness, tingling Physical Exam Physical Exam: General: A&Ox2. NAD. Cooperative. HEENT: Atraumatic, normocephalic. PERLAA. Pulm: Diminished lung sounds, moderate air movement, trace crackles LLL without overt wheezes, -rales, -rhonchi. Symmetrical chest rise. No increase work of breathing. No respiratory distress. Cardiac: irregular, soft systolic murmur. Radial pulses intact and symmetrical. Abdominal: nondistended, soft. BS present. TTP RUQ/Guadalupe's equivocal/positive today Results & Data Results & Data ([facility]) Vital Signs (Past 12 Hours) Vital Signs Temp Pulse Pulse Resp BP Pulse Ox 06/13/20 08:09 37.0 C 88 18 143/59 H 96 06/13/20 07:30 73 06/13/20 07:09 71 18 93 06/13/20 03:44 37.1 C 57 L 18 144/61 H 98 06/13/20 03:33 64 20 98 06/13/20 03:32 64 20 98 06/13/20 00:00 67 06/12/20 22:56 36.4 C L 62 20 155/57 H 100 06/12/20 22:04 65 15 88 L 06/12/20 22:03 65 15 88 L Resident Activity Tracking Resident Involvement: Resident Care Provided Care Provided: Adult Hospital Medicine (1) Anemia Anemia type: unspecified type Qualified Code(s): D64.9 - Anemia, unspecified (2) Hypertension Hypertension type: essential hypertension Qualified Code(s): I10 - Essential (primary) hypertension
[2020-06-13 09:52] LABS: Albumin Level 3.5 gm/dl (3.4-5.0); BUN Creatinine Ratio 40.6 (10-20); Bilirubin,Total 0.4 mg/dl (0.2-1); Creatinine Clr Calc Pharmacy 64.4 ml/min; Est GFR (Non-African American) 65.6; Globulin 3.4 gm/dl (2.5-4.0); Total Protein 6.9 gm/dl (6.4-8.2)
--- NOTE | 2020-06-13 10:14 | XRay Report ---
XR chest 1V portable CLINICAL HISTORY: [facility] COMPARISON STUDY: Chest radiograph June 11, 2020. FINDINGS: There is no pneumothorax. Moderate left and small right pleural effusions are similar to pr ior exam. Associated bibasilar opacities are noted. Pulmonary edema has mildly improved. Cardiomegaly is again noted. A prosthetic aortic valve is noted. IMPRESSION: 1. Mild pulmonary edema, slightly improved since prior exam. 2. Moderate left and small right pleural effusions which are similar to prior study. ACT 112: Negative or not required by law. Electronically signed by: Anjum Chaudhry M.D. 06/13/2020 10:13 AM
--- NOTE | 2020-06-13 10:44 | Pulmonology Progress Note ---
Date of Service June 13, 2020 Assessment & Plan (1) Bilateral pleural effusion: Impression: 74-year-old male with diastolic dysfunction status post TAVR placement now with evidence of fluid overload including bilateral pleural effusions. He does have a history of chronic hypoxemic and hypercarbic respiratory failure but appears adequately compensated currently with a normal pH. He reportedly carries a history of obstructive lung disease although his last PFTs from 5 years ago demonstrated more of a restrictive pattern of unclear etiology. Recommendations: 1. Restrictive lung disease: Etiology is unclear. No evidence of parenchymal lung disease on the CT scan from 5 years ago and his last PFTs were 5 years ago as reported above. Neuromuscular weakness and diaphragmatic dysfunction would be on the differential as well. There is no point in repeating PFTs currently as the patient has significant bilateral pleural effusions which would likely make his PFTs unreliable. Outpatient follow-up recommended with repeat PFTs once the patient's volume status is optimized. No indication for steroids or antibiotics from my perspective. 2. Hypoxemic and hypercarbic respiratory failure: Patient is tolerating BiPAP better. Repeat ABG show mild alkalosis with reduction in PCO2 from 90 down to 66. Could consider nocturnal trilogy home ventilation for use however the patient reports that he is unlikely to be compliant with this going forward. We will discuss positive pressure at home in the outpatient setting. 3. Bilateral pleural effusions: Suspect this is related to fluid overload. He is anticoagulated on Coumadin. Lasix increased to 80 mg 3 times daily. Patient currently has a negative balance this admission of 1.6 L. INR is currently 1.7. Would need INR to be less than 1.5. Coumadin is been held and would continue to check INR on a daily basis. If thoracentesis is conducted and the patient's volume status is not optimized, I would expect rapid reaccumulation of the pleural effusion. We will hold on thoracentesis at this at this point as patient is minimally symptomatic and is responding to diuretics. We will continue to follow with you. Please call if additional questions Please refer to Dr. Mcknight's addendum for further recommendations. (2) Acute on chronic respiratory failure with hypoxia and hypercapnia: (3) Acute on chronic heart failure with preserved ejection fraction: (4) COPD (chronic obstructive pulmonary disease): Admission and Anticipated Discharge Date Admission Date: June 11, 2020 Supervising Physician Co-Signing Physician Notes Patient seen and examined. Discussed with critical care BETI and agree with his assessment as noted. The patient states he is improving from a respiratory standpoint. He is breathing well without significant respiratory complaints. He has noted some improvement in his lower extremity edema. No chest pain or chest tightness. Diuretics adjusted. No plans for intervention on his pleural effusions as they are minimally symptomatic currently. He did tolerate noninvasive positive pressure ventilation last evening and recommend he be evaluated for home trilogy given his hypercarbic respiratory failure. He can follow-up with Dr. Hensley in the outpatient setting. Subjective Attending: Dr. Mcknight Patient seen at bedside this morning. He is in bed with BiPAP in place. He is alert and oriented x3. He has no evidence of respiratory distress. He has had approximately 20 degrees head of bed. He is tolerating the BiPAP mask well. He does report some persistent shortness of breath but states that it may be slightly improved from yesterday. He has no cough or sputum production. He denies any fever, chills, sweats, rigors. He has no chest pain or tightness. He reports fatigue and malaise. Discussion with nursing reveals that the patient does have dyspnea with short walks to the bathroom. Otherwise no acute findings per her description. Pulmonary function testing 10/23/2015 FVC 2.36: 53% of predicted; post bronc 57% of predicted FEV1 1.75: 51% of predicted; post bronc 48% of predicted FEV1/FVC 74: 98% of predicted; post bronc 84% of predicted SVC 56% of predicted RV 137% of predicted TLC 84% of predicted RV/TLC 160% of predicted DLCO (unc) 62% of predicted Review of Systems Review of Systems: All systems reviewed & are unremarkable except as noted in HPI & below Physical Exam Physical Exam: GENERAL : No acute distress. Appears frustrated. EYES: No icterus, gaze conjugate NOSE: No evidence of epistaxis MOUTH: No lesions or candidiasis. Mucosa appears dry. BiPAP mask is in place and secure. Mask leak is 67 NECK: Supple LUNGS: Decreased breath sounds bilaterally. There is no appreciation of bronchospasm or rhonchi. HEART: Regular, rate controlled ABDOMEN: Soft, NT, ND, BS Present EXTREMITIES: Trace bilateral LE edema, pedal pulses intact and equal bilaterally NEURO: A&OX3 Results & Data Results & Data ([facility]) Vital Signs (Past 12 Hours) Vital Signs Temp Pulse Pulse Resp BP Pulse Ox 06/13/20 10:16 64 16 92 06/13/20 08:09 37.0 C 88 18 143/59 H 96 06/13/20 07:30 73 06/13/20 07:09 71 18 93 06/13/20 03:44 37.1 C 57 L 18 144/61 H 98 06/13/20 03:33 64 20 98 06/13/20 03:32 64 20 98 06/13/20 00:00 67 06/12/20 22:56 36.4 C L 62 20 155/57 H 100 Laboratory Results 06/13/20 08:26 06/13/20 08:26 Cumulative I&Os: Adm Inpatient 06/11/20 - 06/13/20 Intake Total 1952.111 ml Output Total 3626 ml Balance -1673.667 ml 06/11/20 06/11/20 06/11/20 10:48 14:54 15:36 ABG pH Cancelled 7.35 ABG pCO2 Cancelled 88 H ABG pO2 Cancelled 53 L ABG HCO3 Cancelled 47 H ABG O2 Saturation Cancelled 81.0 L ABG Base Excess Cancelled 19.0 H VBG pH 7.33 L VBG pCO2 93 H VBG pO2 52 VBG HCO3 48 VBG O2 Saturation 79.2 VBG Base Excess 19.6 06/11/20 06/12/20 06/12/20 20:25 06:57 11:33 ABG pH 7.34 L 7.40 7.36 ABG pCO2 92 H 82 H 90 H ABG pO2 84 65 L 77 L ABG HCO3 49 H 50 H 50 H ABG O2 Saturation 94.6 90.0 94.0 ABG Base Excess 20.0 H 22.0 H 21.4 H VBG pH VBG pCO2 VBG pO2 VBG HCO3 VBG O2 Saturation VBG Base Excess 06/12/20 06/13/20 18:17 08:35 ABG pH 7.47 H ABG pCO2 66 H ABG pO2 180 H ABG HCO3 47 H ABG O2 Saturation 99.4 H ABG Base Excess 21.1 H VBG pH 7.33 L VBG pCO2 93 H VBG pO2 28 VBG HCO3 48 VBG O2 Saturation < 60.0 VBG Base Excess 19.9 Diagnostic Findings XR chest 1V portable CLINICAL HISTORY: [facility] COMPARISON STUDY: Chest radiograph June 11, 2020. FINDINGS: There is no pneumothorax. Moderate left and small right pleural effusions are similar to prior exam. Associated bibasilar opacities are noted. Pulmonary edema has mildly improved. Cardiomegaly is again noted. A prosthetic aortic valve is noted. IMPRESSION: 1. Mild pulmonary edema, slightly improved since prior exam. 2. Moderate left and small right pleural effusions which are similar to prior study. Electronically signed by: Anjum Chaudhry M.D. 06/13/2020 10:13 AM PG Care Time/CCT Total # of Minutes Spent Total Time Spent with Patient: Total time spent is greater than 50% in coordination of care (as documented) at patient's floor/unit and/or counseling patient: Coding Level of Care Code 89009 Subseq Hosp Care Lvl 2 Diagnoses Bilateral pleural effusion J90 Acute on chronic respiratory failure with hypoxia and hypercapnia J96.21; J96.22 Acute on chronic heart failure with preserved ejection fraction I50.33 COPD (chronic obstructive pulmonary disease) J44.9
--- NOTE | 2020-06-13 19:32 | Billing Data ---
Date of Service June 13, 2020 Coding Level of Care Code 76958 Subseq Hosp Care Lvl 3
--- NOTE | 2020-06-13 19:32 | Billing Data ---
Date of Service June 13, 2020 Coding Level of Care Code 11073 Subseq Hosp Care Lvl 3
[2020-06-14] MEDS: PIPERACILLIN/TAZOBACTAM 3.375 GM in DEXTROSE 5% 100 ML IV SCH ×4 (00:01→23:57)
[2020-06-14] MEDS: ALBUT/IPRATROP 3MG/0.5MG NEB 3 ML VIAL NEB SCH ×6 (03:07→23:42)
[2020-06-14 08:06] LABS: Basophils # (auto) 0.03 K/uL (0-0.2); Basophils % (auto) 0.5 %; Eosinophils # (auto) 0.15 K/uL (0-0.5); Eosinophils % (auto) 2.6 %; Hematocrit (blood only) 29.8 % (42-52); Hemoglobin 8.6 g/dL (14.0-18.0); Lymphocytes # (auto) 0.55 K/uL (1.2-3.4); Lymphocytes % (auto) 9.7 %; Mean Corpuscular Hemoglobin 28.2 pg (25-34); Mean Corpuscular Hgb Conc 28.9 g/dL (32-36); Mean Corpuscular Volume 97.7 fL (80-100); Mean Platelet Volume 9.5 fL (7.4-10.4); Monocytes # (auto) 0.77 K/uL (0.11-0.59); Monocytes % (auto) 13.6 %; Neutrophils # (auto) 4.17 K/uL (1.4-6.5); Neutrophils % (auto) 73.6 %; Platelet Count 286 K/uL (130-400); RDW Coefficient of Variation 15.5 % (11.5-14.5); RDW Standard Deviation 55.2 fL (36.4-46.3); Red Blood Count 3.05 M/uL (4.7-6.1); White Blood Count 5.67 K/uL (4.8-10.8)
[2020-06-14 08:10] LABS: INR 1.5 (0.9-1.1); Prothrombin Time 15.1 Seconds (9.0-12.0)
[2020-06-14] MEDS: METOPROLOL TARTRATE 25 MG TAB PO SCH ×2 (08:16→20:28)
[2020-06-14] MEDS: PANTOprazole 40 MG TAB PO SCH ×2 (08:16→20:31)
[2020-06-14] MEDS: FUROSEMIDE 80 MG in SYRINGE 0 ML IV SCH ×2 (08:16→16:16)
[2020-06-14] MEDS: MULTIVITAMIN TAB PO SCH (08:17)
[2020-06-14] MEDS: LOSARTAN POTASSIUM 25 MG TAB PO SCH (08:17)
[2020-06-14] MEDS: FERROUS SULFATE 325 MG TAB PO SCH (08:17)
[2020-06-14] MEDS: FLUTICASONE/VILANTEROL 100/25MCG 14 PUFFS/INHALER INH SCH (08:17)
[2020-06-14] MEDS: MAGNESIUM OXIDE 400 MG TAB PO SCH (08:17)
[2020-06-14] MEDS: POTASSIUM CHLORIDE 20 MEQ TABCR PO SCH ×2 (08:17→20:29)
[2020-06-14] MEDS: ATORVASTATIN 40 MG TAB PO SCH (08:17)
[2020-06-14] MEDS: DOCUSATE SODIUM 100 MG CAP PO SCH ×2 (08:17→20:31)
[2020-06-14] MEDS: ESCITALOPRAM OXALATE 20 MG TAB PO SCH (08:17)
[2020-06-14] MEDS: INSULIN ASPART 100 UNITS/ML 3 ML PEN SC SCH ×4 (08:18→20:33)
--- NOTE | 2020-06-14 08:26 | Pulmonology Progress Note ---
Date of Service June 14, 2020 Assessment & Plan (1) Bilateral pleural effusion: Impression: 74-year-old male with diastolic dysfunction status post TAVR placement now with evidence of fluid overload including bilateral pleural effusions. He does have a history of chronic hypoxemic and hypercarbic respiratory failure but appears adequately compensated currently with a normal pH. He reportedly carries a history of obstructive lung disease although his last PFTs from 5 years ago demonstrated more of a restrictive pattern of unclear etiology. Recommendations: 1. Restrictive lung disease: Etiology is unclear. No evidence of parenchymal lung disease on the CT scan from 5 years ago and his last PFTs were 5 years ago as reported above. Neuromuscular weakness and diaphragmatic dysfunction would be on the differential as well. There is no point in repeating PFTs currently as the patient has significant bilateral pleural effusions which would likely make his PFTs unreliable. Outpatient follow-up recommended with repeat PFTs once the patient's volume status is optimized. No indication for steroids or antibiotics from my perspective. 2. Hypoxemic and hypercarbic respiratory failure: Patient is tolerating BiPAP better. Repeat ABG show with improvement in PCO2. Patient does believe that he can be compliant with a nocturnal trilogy. Given his restrictive lung disease a nd hypercarbic respiratory failure he would qualify. Will discuss with case management getting this set up discharge and he will need to follow-up with Dr. Hensley in the outpatient setting. His oxygen appears to be close to his baseline requirement 3. Bilateral pleural effusions: Suspect this is related to fluid overload. He is anticoagulated on Coumadin. Lasix increased to 80 mg 3 times daily. Needs more aggressive diuresis. Kidney function holding stable. We will add metolazone and Aldactone to his regimen and follow I's and O's kidney function and electrolytes. I am not enthusiastic about performing thoracentesis in the absence of significant clinical symptoms currently. We will continue to follow with you. Please call if additional questions (2) Acute on chronic respiratory failure with hypoxia and hypercapnia: (3) Respiratory failure: Chronicity: acute Respiratory failure complication: hypoxia and hypercapnia Qualified Code(s): J96.01 - Acute respiratory failure with hypoxia; J96.02 - Acute respiratory failure with hypercapnia (4) Acute on chronic heart failure with preserved ejection fraction: Admission and Anticipated Discharge Date Admission Date: June 11, 2020 Subjective Patient seen and examined. He sitting up eating breakfast. He states his breathing is close to baseline. He is on his baseline requirement of 5 L oxygen. He used BiPAP again last evening and is getting more comfortable with the device. He does not report cough or sputum production. He continues to have lower extremity edema. No chest pain palpitations. Review of Systems Review of Systems: All systems reviewed & are unremarkable except as noted in HPI & below Physical Exam Constitutional: well developed and + acute distress (unable to lie flat due to SOB); + not well nourished Eyes: PERRL, conjunctivae normal, anicteric sclerae ENMT: Ears: + hearing impairment Neck: normal visual inspection, trachea midline, + short neck and + thick neck Respiratory: Auscultation: + diminished lung sounds (bibasal); no crackles, no rales, no rhonchi and no wheezes Cardiovascular: Rate/Rhythm: regular rate and regular rhythm Heart Sounds: no murmur Vessels: + JVD Extremities: normal capillary refill and + pedal edema (3+ b/l equal to hips); no calf tenderness Gastrointestinal (Abdomen): Inspection/Auscultation: abdomen normal to inspection and normal bowel sounds; abdomen not distended Percussi on/Palpation: + abdomen tender (RUQ on deep palpation) and abdomen soft; no guarding and abdomen not rigid Musculoskeletal: no cyanosis or clubbing, extremities motor strength 5/5 Skin: no rashes, warm and dry Neurologic: moves all extremities, awake and + confused; no focal motor deficits (lateralizing) Speech / Cognition: normal speech Motor/Sensory: no tremor and no pronator drift Cranial Nerves: normal facial strength Psychiatric: Orientation: alert, oriented to person and oriented to place; + not oriented to time Genitourinary: no CVA tenderness Lymphatic: no cervical or axillary lymphadenopathy Results & Data Results & Data ([facility]) Vital Signs (Past 12 Hours) Vital Signs Temp Pulse Resp BP Pulse Ox 06/14/20 07:54 36.6 C 61 20 112/41 L 100 06/14/20 07:10 63 18 98 06/14/20 03:08 67 18 91 06/14/20 03:06 61 17 132/56 L 98 06/13/20 23:35 36.5 C 65 20 141/49 H 96 06/13/20 23:27 69 18 92 Laboratory Results 06/14/20 07:46 Chemistry panel pending Diagnostic Findings Chest x-ray from yesterday demonstrated persistent bilateral pleural effusions stable to slightly improved compared to 06/11 PG Care Time/CCT Total # of Minutes Spent Total Time Spent with Patient: Total time spent is greater than 50% in c oordination of care (as documented) at patient's floor/unit and/or counseling patient: Coding Level of Care Code 94359 Subseq Hosp Care Lvl 3 Diagnoses Bilateral pleural effusion J90 Acute on chronic respiratory failure with hypoxia and hypercapnia J96.21; J96.22 Respiratory failure J96.01; J96.02 Chronicity: acute Respiratory failure complication: hypoxia and hypercapnia Acute on chronic heart failure with preserved ejection fraction I50.33
[2020-06-14] MEDS: SODIUM CHLORIDE 0.65% NA SOLN 45 ML (OCEAN) NAE SCH ×2 (08:29→20:29)
[2020-06-14 08:38] LABS: BUN Creatinine Ratio 28.9 (10-20); Blood Urea Nitrogen 28 mg/dl (7-18); Calcium 9.8 mg/dl (8.5-10.1); Chloride 93 mmol/L (98-107); Creatinine Clr Calc Pharmacy 71.6 ml/min; Est GFR (African American) 86.5; Est GFR (Non-African American) 74.6; Glucose 111 mg/dl (70-99); Potassium 4.1 mmol/L (3.5-5.1); Sodium 141 mmol/L (136-145)
[2020-06-14] MEDS: SPIRONOLACTONE 25 MG TAB PO SCH (09:27)
[2020-06-14] MEDS: metOLazone 5 MG TABLET PO SCH (09:27)
--- NOTE | 2020-06-14 16:34 | Cardiology Progress Note ---
Date of Service June 14, 2020 Assessment & Plan (1) Acute on chronic diastolic (congestive) heart failure: 2. Hypoxemic and hypercarbic respiratory failure 3. Prior severe aortic stenosis post TAVR 4. Acute on chronic renal insufficiency 5. Anemia 6. 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 Paroxysmal SVT 8. Restrictive lung disease 9. Type 2 diabetes Diuresing slowly. Renal function improved Breathing symptoms modestly improved. Improving congestion on exam. Only received 2 dose of lasix yesterday. -- Target 1 L negative today. -- Thiazide/spironolactone added this AM. -- If diuresis still not at goal increase lasix to TID. Continue current beta-criss, ARB If no plans for intervention resume anticoagulation We will continue to follow. Admission and Anticipated Discharge Date Admission Date: June 11, 2020 Subjective Seen this afternoon. Resting comfortably with Bipap in place. States breathing easier. Denies chest pain. No other new concerns. UOP 2.1 L, negative 800 SCr down to 0.98 Review of Systems Review of Systems: All systems reviewed & are unremarkable except as noted in HPI & below Physical Exam Physical Exam: General: Comfortable, Bipap in place, no acute distress HEENT: Sclerae anicteric, mucous membranes moist Lungs: Decreased breath sounds at right base with few crackles bilaterally. Cardiac: Regular rate and rhythm, 2/6 systolic ejection murmur heard best the right upper sternal border with crisp bioprosthetic closure Abdomen: Soft, nontender, nondistended, positive bowel sounds. Extremities: Warm, well perfused, 1+ edema to mid shins Skin: No rashes or lesions. Neuro: Nonfocal Psych: Alert orient x3, normal affect and mood Results & Data ([facility]) Vital Signs (Past 12 Hours) Vital Signs Temp Pulse Pulse Resp BP Pulse Ox Pulse Ox 06/14/20 15:50 95 06/14/20 15:28 98.1 F 59 L 22 119/40 L 99 06/14/20 15:05 88 88 22 97 06/14/20 13:19 91 06/14/20 11:44 98.1 F 61 18 117/44 L 97 06/14/20 11:04 61 18 97 06/14/20 08:00 69 06/14/20 07:54 97.9 F 61 20 112/41 L 100 06/14/20 07:10 63 18 98 Pulse Ox Pulse Ox 06/14/20 15:50 06/14/20 15:28 06/14/20 15:05 06/14/20 13:19 97 89 L 06/14/20 11:44 06/14/20 11:04 06/14/20 08:00 06/14/20 07:54 06/14/20 07:10 PG Care Time/CCT Total # of Minutes Spent Total Time Spent with Patient: Total time spent is greater than 50% in coordination of care (as documented) at patient's floor/unit and/or counseling patient: Coding Level of Care Code 08240 Subseq Hosp Care Lvl 3 Diagnoses Acute on chronic diastolic (congestive) heart failure I50.33
--- NOTE | 2020-06-14 16:55 | Neurology Consultation ---
Date of Consultation June 14, 2020 Assessment & Plan (1) COPD (chronic obstructive pulmonary disease): (2) Acute on chronic respiratory failure with hypoxia and hypercapnia: Richard Lobo is a 74 yo man w/ PMH of anemia, aortic stenosis S/P TAVR, COPD on home 5 L oxygen, hypertension, history of GI bleed, known carotid artery stenosis, tobacco abuse history, CAD with history of STEMI and prolonged QT interval who initially presented to [facility] with AMS and acute on chronic respiratory failure with hypoxia and hypercapnia. Neurology consulted for possible neuromuscular weakness. # Worsening respiratory failure: c/f possible underlying neuromuscular disorder. He has good overall strength and no signs of proximal or distal weakness on exam -Recommend obtaining CK, aldolase and repeat B12 level -B12 is still 400 or less, recommend repletion -Recommend obtaining sniff test to rule out hemidiaphragm or diaphragmatic weakness -Recommend outpatient EMG with neurology follow-up in 4 to 8 weeks Thank you for this interesting consult. Plan of care discussed with primary team. Please call or text with questions. (3) Acute alteration in mental status: (4) History of left-sided carotid endarterectomy: History of Present Illness Attending Physician: Carlton Veloz, History of Present Illness Richard Lobo is a 74 yo man w/ PMH of anemia, aortic stenosis S/P TAVR, COPD on home 5 L oxygen, hypertension, history of GI bleed, known carotid artery stenosis, tobacco abuse history, CAD with history of STEMI and prolonged QT interval who initially presented to [facility] with AMS and acute on chronic respiratory failure with hypoxia and hypercapnia. Neurology consulted for possible neuromuscular weakness. He reports that he has about a 5-year history of difficulty breathing that has been progressively getting worse and requires 5 L oxygen at home. He notes that in the last year or so, he started to have numbness and tingling on the bottom of his feet that has not significantly progressed. He denies any overt weakness in upper or lower extremities involving the proximal or distal muscles. Denies difficulty with opening jars, lifting things over his head, climbing stairs, or shuffling gait/tripping over his feet from a foot drop. He denies having any rash, dysphagia, dysarthria or fatigable weakness. Denies any family history of neuromuscular disorders that he is aware of. Testing this admission was notable for A1c 5.7, CO2 46, low iron 30, ammonia elevated at 40, TSH within normal, B12 was 416 in March 2020. Chest x-ray on 06/13/2020 showed mild pulmonary edema that improved since the prior, cardiomegaly, moderate left and small right pleural effusions similar to prior exam, bibasilar opacities. CTH independently reviewed and shows a hypodensity in the left posterior parietal lobe with small vessel disease, mild generalized atrophy, no hemorrhage or area of encephalomalacia. Allergies Allergy/AdvReac Type Severity Reaction Status Date / Time No Known Drug Allergies Allergy Verified 06/11/20 08:58 Home Medications Home Medications Medication Instructions Recorded Confirmed Type atorvastatin 80 mg tablet 80 mg PO DAILY 05/20/20 06/11/20 History escitalopram oxalate 20 mg tablet 20 mg PO DAILY 05/20/20 06/11/20 History ferrous sulfate 325 mg (65 mg 325 mg PO DAILY 05/20/20 06/11/20 History iron) tablet lorazepam 0.5 mg tablet 0.5 mg PO DAILY PRN 05/20/20 06/11/20 History losartan 25 mg tablet 12.5 mg PO DAILY tab 05/20/20 06/11/20 History magnesium 250 mg tablet 250 mg PO DAILY 05/20/20 06/11/20 History metolazone 2.5 mg tablet 2.5 mg PO DIRECTED PRN 05/20/20 06/11/20 History pantoprazole 40 mg tablet,delayed 40 mg PO BID tab 05/20/20 06/11/20 History release potassium chloride 20 mEq 20 meq PO BID 05/20/20 06/11/20 History tablet,extended release meclizine 12.5 mg tablet 12.5 mg PO TID PRN 05/21/20 06/11/20 History multivitamin 1 tab PO DAILY 05/21/20 06/11/20 History warfarin 5 mg tablet 5 mg PO DAILY 05/21/20 06/11/20 History torsemide 100 mg tablet 100 mg PO BID tab 06/03/20 06/11/20 History metoprolol tartrate 25 mg tablet 25 mg PO BID #60 tab 06/04/20 06/11/20 Rx calcium carbonate 600 mg calcium 600 mg PO BID tab 06/10/20 06/11/20 History (1,500 mg) tablet docusate sodium 100 mg capsule 100 mg PO BID 06/10/20 06/11/20 History fluticasone 250 mcg-salmeterol 50 1 puffs INH BID 06/10/20 06/11/20 History mcg/dose blistr powdr for inhalation metformin 500 mg tablet 500 mg PO BID 06/10/20 06/11/20 History sodium chloride 0.65 % nasal spray 2 sprays INTNAS BID ml 06/10/20 06/11/20 History aerosol acetaminophen 325 mg capsule 325 mg PO QID PRN 06/11/20 06/11/20 History warfarin 2.5 mg PO DIRECTED 06/11/20 06/11/20 History Patient History Medical History Anemia Aortic stenosis (Chronic) severe asymptomatic Chronic obstructive pulmonary disease OXYGEN 5L/MIN NC HS Chronic shortness of breath Dependent edema PRN diuretics History of carotid artery disease S/P L CEA 2013 History of GI bleed Hypertension Tobacco use disorder Surgical History History of appendectomy History of cataract surgery BILAT History of colonoscopy History of esophagogastroduodenoscopy (EGD) History of left-sided carotid endarterectomy 2014 History of tonsillectomy History of tooth extraction Toenail avulsion REMOVAL OF Family History Father Hypertension Social History Smoking Status: Former smoker Cigarettes Per Day: 20; Second Hand Exposure: No; Hx Alcohol Use: No Hx Substance Use: No Preferred Language: Occitan Communication Ability: Effective Visual Impairment: No Limitations [employer]argo [employer] Agent Required: No Beliefs That Will Affect Care: None marital status: Current Living Situation: Spouse Other Information That Helps Us Care for You: No Feels Safe at Home: Yes Safety Concerns: Feels Safe At This Time Review of Systems Review of Systems: 14 point review of systems completed and negative except as in HPI. Exam (Neuro) Physical Exam: General Exam: GEN: NAD, sitting in bed. HEENT: No conjunctival injection, no rhinorrhea. CV: RRR, no peripheral edema PULM: Nonlabored respirations on 5L Neuro Exam: MS: Awake and Alert. Oriented to person, place, and date. Speech fluent and appropriate without dysarthria or paraphasic errors. Language intact including naming, comprehension, repetition. Cognition and memory grossly intact. Attention intact. No neglect. CN: Visual anderson full. No extinction to double simultaneous stimuli. No optic disc edema on fundoscopic exam. PERRLA OU. EOMI without nystagmus. Facial sensation intact to LT. Facial muscles full and symmetric. Hearing intact to conversation. Uvula midline with symmetric palatal elevation. Shoulder shrug normal. Tongue midline. Can count to 20 with one breath. No fatiguable weakness noted. MOTOR: Normal bulk and tone. No pronator drift. BUE strength 5/5 at deltoids, biceps, triceps, wrist flexors and extensors, and hand grasp bilaterally. BLE strength 5/5 at iliopsoas, hamstrings, quadriceps, tibialis anterior, and gastrocnemius bilaterally. REFLEXES: 1+ at biceps, triceps, brachioradialis, trace patella and absent Achilles bilaterally. Flexor plantar responses bilaterally. SENSORY: Intact to LT without extinction to double simultaneous stimuli. Vibration diminished in BLEs up to the ankles. COORDINATION: No dysmetria or ataxia on [id number] bilaterally. Normal Wale bilaterally. GAIT: deferred given physical status Results & Data ([facility]) Vital Signs (Past 12 Hours) Vital Signs Temp Pulse Pulse Resp BP Pulse Ox Pulse Ox 06/14/20 16:00 58 L 06/14/20 15:50 95 06/14/20 15:28 36.7 C 59 L 22 119/40 L 99 06/14/20 15:05 88 88 22 97 06/14/20 13:19 91 06/14/20 11:44 36.7 C 61 18 117/44 L 97 06/14/20 11:04 61 18 97 06/14/20 08:00 69 06/14/20 07:54 36.6 C 61 20 112/41 L 100 06/14/20 07:10 63 18 98 Pulse Ox Pulse Ox 06/14/20 16:00 06/14/20 15:50 06/14/20 15:28 06/14/20 15:05 06/14/20 13:19 97 89 L 06/14/20 11:44 06/14/20 11:04 06/14/20 08:00 06/14/20 07:54 06/14/20 07:10 PG Care Time/CCT Total # of Minutes Spent Total Time Spent with Patient: Total time spent is greater than 50% in coordination of care (as documented) at patient's floor/unit and/or counseling patient: Coding Level of Care Code 47985 Initial Inpt Care Lvl 3 Diagnoses COPD (chronic obstructive pulmonary disease) J44.9 Acute on chronic respiratory failure with hypoxia and hypercapnia J96.21; J96.22 Acute alteration in mental status R41.82 History of left-sided carotid endarterectomy Z98.890
[2020-06-14] MEDS ORDERED: WARFARIN SOD 5 MG TAB PO ONE (19:37)
--- NOTE | 2020-06-14 19:39 | Hospitalist Progress Note ---
Date of Service June 14, 2020 Assessment & Plan (1) COPD (chronic obstructive pulmonary disease): (1) Acute on chronic heart failure with preserved ejection fraction: Richard Lobo is a 74yo M HFpEF echo 04/2020 EF 55-60%, aortic stenosis s/p TAVR, emphysema, anemia, CAD, HTN, chronic respiratory failure on 5L home O2, and GI bleed who presents with altered mental status for 4 days and increased dyspnea for 1 month. Altered mental status 2/2 hypercarbic metabolic encephalopathy ABG on admit pH 7.4, PCO2 82, O2 65, HCO3 50. Compensated pH with prominent respiratory acidosis -ABG 06/13 after tolerating BiPAP well overnight with pH 7.47/PCO2 66/HCO3 47/PO2 180 consistent with primary metabolic alkalosis with secondary underlying respiratory acidosis. Suspect metabolic alkalosis due to diuretic therapy with contraction alkalosis. PCO2 improving w Bipap. Patient with chronic increased CO2 on BMPs in the past acute and chronic hypercapnic and hypoxic respiratory failure - restrictive lung disease unclear etiology ?neuromuscular weakness - improved well w bipap. setting up device for home - due to chronic respiratory failure consequent to restrctive lung disease and chronic hypoventialtion, patient now requires a noninvasive home ventilator. bilevel therapy with and without a rate would be ineffective as pt requires a volume targeted mode. ventilation is required to decrease the work of breathing and improve pulmonary status. interruption of ventilator support would clearly lead to a decline of health status, as evidenced by his symptoms and ABGs earlier in hospital stay vs now after a night of respiratory therapist directed noninvasive ventilation. almost certainly will need chronic O2 as well. continue to diurese for acute on chronic HFpEF but this is probably a much smaller player in his respiratory failure. Acute on Chronic Hypoxic Hypercarbic Respiratory failure 2/2 CHF with effusion +/- hypoxia and diagramatic weakness vs severe ABDIEL - Suspected due to congestive heart failure with underlying small chronic effusions. 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 He denies pain with meals, steatorrhea, or abdominal pain at rest Afebrile, no leukocytosis - Pt high risk for surgical intervention. - Zosyn medical therapy at this time. If worsened may be a perc candidate as surgical risk is very high - but doing well in this regard. 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 Warfarin held on admit, resuming today Diet: HH Dispo: PCU Admission and Anticipated Discharge Date Admission Date: June 11, 2020 Subjective feeling better feeling brighter breathing easier d/w cardiology PA input appreciated no new complaints otherwise discussed plan - he is understanding more coordinating care w case management as well Review of Systems Review of Systems: All systems reviewed & are unremarkable except as noted in HPI & below Physical Exam Physical Exam: gen aao pleasant nad heent nc at mmm breathing unlabored no accessory muscles good effort skin no rashes no pallor or icterus Results & Data Results & Data ([facility]) Vital Signs (Past 12 Hours) Vital Signs Temp Pulse Pulse Resp BP Pulse Ox Pulse Ox 06/14/20 16:00 58 L 06/14/20 15:50 95 06/14/20 15:28 98.1 F 59 L 22 119/40 L 99 06/14/20 15:05 88 88 22 97 06/14/20 13:19 91 06/14/20 11:44 98.1 F 61 18 117/44 L 97 06/14/20 11:04 61 18 97 06/14/20 08:00 69 06/14/20 07:54 97.9 F 61 20 112/41 L 100 Pulse Ox Pulse Ox 06/14/20 16:00 06/14/20 15:50 06/14/20 15:28 06/14/20 15:05 06/14/20 13:19 97 89 L 06/14/20 11:44 06/14/20 11:04 06/14/20 08:00 06/14/20 07:54 PG Care Time/CCT Total # of Minutes Spent Total Time Spent with Patient: Total time spent is greater than 50% in coordination of care (as documented) at patient's floor/unit and/or counseling patient: Coding Level of Care Code 62750 Subseq Hosp Care Lvl 3 Diagnoses COPD (chronic obstructive pulmonary disease) J44.9
[2020-06-15] MEDS: ALBUT/IPRATROP 3MG/0.5MG NEB 3 ML VIAL NEB SCH ×6 (03:22→23:17)
[2020-06-15 06:01] LABS: Basophils # (auto) 0.03 K/uL (0-0.2); Basophils % (auto) 0.5 %; Eosinophils # (auto) 0.29 K/uL (0-0.5); Eosinophils % (auto) 5.3 %; Hematocrit (blood only) 29.2 % (42-52); Hemoglobin 8.8 g/dL (14.0-18.0); Lymphocytes # (auto) 0.62 K/uL (1.2-3.4); Lymphocytes % (auto) 11.3 %; Mean Corpuscular Hemoglobin 28.7 pg (25-34); Mean Corpuscular Hgb Conc 30.1 g/dL (32-36); Mean Corpuscular Volume 95.1 fL (80-100); Mean Platelet Volume 10.1 fL (7.4-10.4); Monocytes # (auto) 0.87 K/uL (0.11-0.59); Monocytes % (auto) 15.8 %; Neutrophils % (auto) 67.1 %; Platelet Count 297 K/uL (130-400); RDW Coefficient of Variation 15.4 % (11.5-14.5); RDW Standard Deviation 54.4 fL (36.4-46.3); Red Blood Count 3.07 M/uL (4.7-6.1); White Blood Count 5.51 K/uL (4.8-10.8)
[2020-06-15 06:09] LABS: INR 1.3 (0.9-1.1); Prothrombin Time 13.5 Seconds (9.0-12.0)
[2020-06-15 06:46] LABS: BUN Creatinine Ratio 22.2 (10-20); Calcium 9.6 mg/dl (8.5-10.1); Creatinine Clr Calc Pharmacy 63.8 ml/min; Est GFR (African American) 75.2; Est GFR (Non-African American) 64.9; Potassium 4.2 mmol/L (3.5-5.1)
[2020-06-15] MEDS: FUROSEMIDE 80 MG in SYRINGE 0 ML IV SCH ×2 (08:27→18:26)
[2020-06-15] MEDS: PIPERACILLIN/TAZOBACTAM 3.375 GM in DEXTROSE 5% 100 ML IV SCH ×2 (08:27→15:33)
[2020-06-15] MEDS: MULTIVITAMIN TAB PO SCH (08:28)
[2020-06-15] MEDS: DOCUSATE SODIUM 100 MG CAP PO SCH ×2 (08:28→20:35)
[2020-06-15] MEDS: METOPROLOL TARTRATE 25 MG TAB PO SCH ×2 (08:28→20:35)
[2020-06-15] MEDS: MAGNESIUM OXIDE 400 MG TAB PO SCH (08:28)
[2020-06-15] MEDS: POTASSIUM CHLORIDE 20 MEQ TABCR PO SCH ×2 (08:28→20:32)
[2020-06-15] MEDS: ESCITALOPRAM OXALATE 20 MG TAB PO SCH (08:28)
[2020-06-15] MEDS: metOLazone 5 MG TABLET PO SCH (08:29)
[2020-06-15] MEDS: FERROUS SULFATE 325 MG TAB PO SCH (08:29)
[2020-06-15] MEDS: FLUTICASONE/VILANTEROL 100/25MCG 14 PUFFS/INHALER INH SCH (08:29)
[2020-06-15] MEDS: SPIRONOLACTONE 25 MG TAB PO SCH (08:29)
[2020-06-15] MEDS: LOSARTAN POTASSIUM 25 MG TAB PO SCH (08:29)
[2020-06-15] MEDS: ATORVASTATIN 40 MG TAB PO SCH (08:29)
[2020-06-15] MEDS: SODIUM CHLORIDE 0.65% NA SOLN 45 ML (OCEAN) NAE SCH ×2 (08:30→20:40)
[2020-06-15] MEDS: INSULIN ASPART 100 UNITS/ML 3 ML PEN SC SCH ×4 (08:34→20:40)
[2020-06-15] MEDS: PANTOprazole 40 MG TAB PO SCH ×2 (09:39→20:35)
--- NOTE | 2020-06-15 10:53 | Pulmonology Progress Note ---
Date of Service June 15, 2020 Assessment & Plan (1) Bilateral pleural effusion: Impression: 74-year-old male with diastolic dysfunction status post TAVR placement now with evidence of fluid overload including bilateral pleural effusions. He does have a history of chronic hypoxemic and hypercarbic respiratory failure but appears adequately compensated currently with a normal pH. He reportedly carries a history of obstructive lung disease although his last PFTs from 5 years ago demonstrated more of a restrictive pattern of unclear etiology. Recommendations: 1. Restrictive lung disease: Etiology is unclear. No evidence of parenchymal lung disease on the CT scan from 5 years ago and his last PFTs were 5 years ago as reported above. Neuromuscular weakness and diaphragmatic dysfunction would be on the differential as well. There is no point in repeating PFTs currently as the patient has significant bilateral pleural effusions which would likely make his PFTs unreliable. Outpatient follow-up recommended with repeat PFTs once the patient's volume status is optimized. No indication for steroids or antibiotics from my perspective. 2. Hypoxemic and hypercarbic respiratory failure: Patient is tolerating BiPAP nightly better. Repeat ABG show with improvement in PCO2. Patient does believe that he can be compliant with a nocturnal trilogy. Given his restrictive lung d isease and hypercarbic respiratory failure he would qualify. Case management working on getting this set up for discharge and he will need to follow-up with Dr. Hensley in the outpatient setting. His oxygen appears to be close to his baseline requirement 3. Bilateral pleural effusions: Suspect this is related to fluid overload. He is anticoagulated on Coumadin. Lasix currently 80 mg 3 times daily. Added metolazone and Aldactone to his regimen yesterday. I's and O's remain somewhat even to slightly negative. Kidney function is stable. Reluctant to consider thoracentesis in the absence of clinical symptoms until he has been adequately diuresed We will continue to follow with you. Please call if additional questions (2) Acute on chronic respiratory failure with hypoxia and hypercapnia: (3) Respiratory failure: Chronicity: acute Respiratory failure complication: hypoxia and h ypercapnia Qualified Code(s): J96.01 - Acute respiratory failure with hypoxia; J96.02 - Acute respiratory failure with hypercapnia (4) Acute on chronic heart failure with preserved ejection fraction: Admission and Anticipated Discharge Date Admission Date: June 11, 2020 Subjective Patient seen and examined. EMR reviewed. He sitting up eating ice cream. He f eels his breathing is better. He is back to his baseline oxygen requirement. He is diuresing. Serum creatinine appears stable. Review of Systems 2 Review of Systems: All systems reviewed & are unremarkable except as noted in HPI & below Physical Exam Constitutional: well developed and + acute distress (unable to lie flat due to SOB); + not well nourished Eyes: PERRL, conjunctivae normal, anicteric sclerae ENMT: Ears: + hearing impairment Neck: normal visual inspection, trachea midline, + short neck and + thick neck Respiratory: Auscultation: + diminished lung sounds (bibasal); no crackles, no rales, no rhonchi and no wheezes Cardiovascular: Rate/Rhythm: regular rate and regular rhythm Heart Sounds: no murmur Vessels: + JVD Extremities: normal capillary refill and + pedal edema (3+ b/l equal to hips); no calf tenderness Gastrointestinal (Abdomen): Inspection/Auscultation: abdomen normal to inspection and normal bowel sounds; abdomen not distended Percussion/Palpation: + abdomen tender (RUQ on deep palpation) and abdomen soft; no guarding and abdomen not rigid Musculoskeletal: no cyanosis or clubbing, extremities motor strength 5/5 Skin: no rashes, warm and dry Neurologic: moves all extremities, awake and + confused; no focal motor deficits (lateralizing) Speech / Cognition: normal speech Motor/Sensory: no tremor and no pronator drift Cranial Nerves: normal facial strength Psychiatric: Orientation: alert, oriented to person and oriented to place; + not oriented to time Genitourinary: no CVA tenderness Lymphatic: no cervical or axillary lymphadenopathy Results & Data Results & Data ([facility]) Vital Signs (Past 12 Hours) Vital Signs Temp Pulse Pulse Resp BP Pulse Ox 06/15/20 08:11 36.8 C 76 18 123/52 L 92 06/15/20 07:23 61 16 98 06/15/20 04:41 36.8 C 66 22 127/40 L 90 06/15/20 03:22 58 L 18 97 06/15/20 03:20 58 L 18 97 06/14/20 23:51 36.9 C 60 20 111/35 L 95 06/14/20 23:47 70 18 94 06/14/20 23:44 70 18 94 Laboratory Results 06/15/20 05:43 06/15/20 05:43 I/O: Negative about a liter PG Care Time/CCT Total # of Minutes Spent Total Time Spent with Patient: Total time spent is greater than 50% in coordination of care (as documented) at patient's floor/unit and/or counseling patient: Coding Level of Care Code 39108 Subseq Hosp Care Lvl 2 Diagnoses Bilateral pleural effusion J90 Acute on chronic respiratory failure with hypoxia and hypercapnia J96.21; J96.22 Respiratory failure J96.01; J96.02 Chronicity: acute Respiratory failure complication: hypoxia and hypercapnia Acute on chronic heart failure with preserved ejection fraction I50.33
[2020-06-15] MEDS: WARFARIN SOD 5 MG TAB PO SCH (15:25)
--- NOTE | 2020-06-15 18:30 | Hospitalist Progress Note ---
Date of Service June 15, 2020 Assessment & Plan (1) COPD (chronic obstructive pulmonary disease): (1) Acute on chronic heart failure with preserved ejection fraction: Richard Lobo is a 74yo M HFpEF echo 04/2020 EF 55-60%, aortic stenosis s/p TAVR, emphysema, anemia, CAD, HTN, chronic respiratory failure on 5L home O2, and GI bleed who presents with altered mental status for 4 days and increased dyspnea for 1 month. overall he is improving nicely - will move to medical today, try to have increased activity, PT/OT, etc Altered mental status 2/2 hypercarbic metabolic encephalopathy hypercapnic fairly severely, now improved overall acute and chronic hypercapnic and hypoxic respiratory failure - restrictive lung disease unclear etiology ?neuromuscular weakness - improved well w bipap. setting up device for home - due to chronic respiratory failure consequent to restrctive lung disease and chronic hypoventialtion, patient now requires a noninvasive home ventilator. bilevel therapy with and without a rate would be ineffective as pt requires a volume targeted mode. ventilation is required to decrease the work of breathing and improve pulmonary status. interruption of ventilator support would clearly lead to a decline of health status, as evidenced by his symptoms and ABGs earlier in hospital stay vs now after a night of respiratory therapist directed noninvasive ventilation. almost certainly will need chronic O2 as well. continue to diurese for acute on chronic HFpEF but this is probably a much smaller player in his respiratory failure. Acute on Chronic Hypoxic Hypercarbic Respiratory failure 2/2 CHF with effusion +/- hypoxia and diagramatic weakness vs severe ABDIEL - Suspected due to congestive heart failure with underlying small chronic effusions. as well as lung disease as above continue diuresis as this is helping his respiratory status restrictive lung disease -heavily contributory to above - unclear etiology - neuro input appreciated, labs ordered mostly pending. for outpt f/u. Afib on Warfarin - Warfarin held on admit ?need for thoracentesis, but since this is highly unlikely - back on coumadin - rate controlled RAND on CKD, improved - baseline cr ~1.0, Peaked at 1.9 on admit, downtrended - follow w diuresis - still acceptable Cholecystitis, gallbladder distention CT abdomen shows distended gallbladder and 1.6 cm pancreatic head cyst Positive radiographic Guadalupe sign On clinic exam patient focally tender in right upper quadrant to palpation. He denies pain with meals, steatorrhea, or abdominal pain at rest Afebrile, no leukocytosis - Pt high risk for surgical intervention. - continue Zosyn as medical therapy at this time. If worsened may be a perc candidate as surgical risk is very high - but doing well in this regard. 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 Warfarin held on admit, resuming today Diet: HH Dispo: PCU Admission and Anticipated Discharge Date Admission Date: June 11, 2020 Subjective generally feeling better each day. breathing better ovreall. would liek to get up and around more. no other new issues. pleased with progress. outlined big picture plan again. Review of Systems Review of Systems: All systems reviewed & are unremarkable except as noted in HPI & below Physical Exam Physical Exam: gen aao pleasant nad heent nc at mmm breathing unlabored no accessory muscles good effort skin no rashes no pallor or icterus neuro no focal deficits Results & Data Results & Data ([facility]) Vital Signs (Past 12 Hours) Vital Signs Temp Pulse Pulse Resp BP Pulse Ox 06/15/20 16:03 99.5 F 17 134/56 L 96 06/15/20 15:31 63 18 94 06/15/20 11:13 62 18 93 06/15/20 08:11 98.2 F 76 18 123/52 L 92 06/15/20 08:00 58 L 06/15/20 07:23 61 16 98 PG Care Time/CCT Total # of Minutes Spent Total Time Spent with Patient: Total time spent is greater than 50% in coordination of care (as documented) at patient's floor/unit and/or counseling patient: Coding Level of Care Code 87453 Subseq Hosp Care Lvl 3 Diagnoses COPD (chronic obstructive pulmonary disease) J44.9
[2020-06-16] MEDS: PIPERACILLIN/TAZOBACTAM 3.375 GM in DEXTROSE 5% 100 ML IV SCH ×4 (00:50→23:41)
[2020-06-16] MEDS: ALBUT/IPRATROP 3MG/0.5MG NEB 3 ML VIAL NEB SCH ×6 (03:28→23:13)
[2020-06-16 06:20] LABS: Basophils # (auto) 0.02 K/uL (0-0.2); Basophils % (auto) 0.4 %; Eosinophils # (auto) 0.21 K/uL (0-0.5); Eosinophils % (auto) 3.7 %; Hematocrit (blood only) 28.5 % (42-52); Hemoglobin 8.6 g/dL (14.0-18.0); Mean Corpuscular Hemoglobin 28.2 pg (25-34); Mean Corpuscular Hgb Conc 30.2 g/dL (32-36); Mean Corpuscular Volume 93.4 fL (80-100); Mean Platelet Volume 10.5 fL (7.4-10.4); Monocytes # (auto) 0.72 K/uL (0.11-0.59); Monocytes % (auto) 12.6 %; Neutrophils # (auto) 3.96 K/uL (1.4-6.5); Neutrophils % (auto) 69.3 %; Platelet Count 282 K/uL (130-400); RDW Coefficient of Variation 15.4 % (11.5-14.5); RDW Standard Deviation 52.7 fL (36.4-46.3); Red Blood Count 3.05 M/uL (4.7-6.1); White Blood Count 5.71 K/uL (4.8-10.8)
[2020-06-16 06:30] LABS: INR 1.3 (0.9-1.1); Prothrombin Time 13.5 Seconds (9.0-12.0)
[2020-06-16 06:55] LABS: BUN Creatinine Ratio 24.7 (10-20); Calcium 9.6 mg/dl (8.5-10.1); Est GFR (African American) 67.7; Est GFR (Non-African American) 58.4; Potassium 3.7 mmol/L (3.5-5.1)
[2020-06-16] MEDS: METOPROLOL TARTRATE 25 MG TAB PO SCH ×2 (09:03→20:42)
[2020-06-16] MEDS: DOCUSATE SODIUM 100 MG CAP PO SCH ×2 (09:03→20:36)
[2020-06-16] MEDS: POTASSIUM CHLORIDE 20 MEQ TABCR PO SCH ×2 (09:03→20:37)
[2020-06-16] MEDS: PANTOprazole 40 MG TAB PO SCH ×2 (09:03→20:42)
[2020-06-16] MEDS: MAGNESIUM OXIDE 400 MG TAB PO SCH (09:04)
[2020-06-16] MEDS: ESCITALOPRAM OXALATE 20 MG TAB PO SCH (09:04)
[2020-06-16] MEDS: MULTIVITAMIN TAB PO SCH (09:04)
[2020-06-16] MEDS: ATORVASTATIN 40 MG TAB PO SCH (09:04)
[2020-06-16] MEDS: LOSARTAN POTASSIUM 25 MG TAB PO SCH (09:04)
[2020-06-16] MEDS: FLUTICASONE/VILANTEROL 100/25MCG 14 PUFFS/INHALER INH SCH (09:05)
[2020-06-16] MEDS: metOLazone 5 MG TABLET PO SCH (09:05)
[2020-06-16] MEDS: SPIRONOLACTONE 25 MG TAB PO SCH (09:05)
[2020-06-16] MEDS: SODIUM CHLORIDE 0.65% NA SOLN 45 ML (OCEAN) NAE SCH ×2 (09:05→20:43)
[2020-06-16] MEDS: FERROUS SULFATE 325 MG TAB PO SCH (09:06)
[2020-06-16] MEDS: FUROSEMIDE 80 MG in SYRINGE 0 ML IV SCH (09:06)
[2020-06-16] MEDS: INSULIN ASPART 100 UNITS/ML 3 ML PEN SC SCH ×4 (09:10→21:20)
--- NOTE | 2020-06-16 09:57 | Pulmonology Progress Note ---
Date of Service June 16, 2020 Assessment & Plan (1) Bilateral pleural effusion: Impression: 74-year-old male with diastolic dysfunction status post TAVR placement now with evidence of fluid overload including bilateral pleural effusions. He does have a history of chronic hypoxemic and hypercarbic respiratory failure but appears adequately compensated currently with a normal pH. He reportedly carries a history of obstructive lung disease although his last PFTs from 5 years ago demonstrated more of a restrictive pattern of unclear etiology. Recommendations: 1. Restrictive lung disease: Reviewed neurology notes. Would hold on sniff test for now as the patient has significant pleural effusions and is clinically unable to ascertain significant diaphragmatic movement. Await till volume status is stable. Outpatient PFTs as previously noted when euvolemic.. 2. Hypoxemic and hypercarbic respiratory failure: Patient is tolerating BiPAP nightly better. Repeat ABG show with improvement in PCO2. Patient does believe that he can be compliant with a nocturnal trilogy. Given his restrictive lung disease and hypercarbic respiratory failure he would qualify. Case management w ottoking on getting this set up for discharge and he will need to follow-up with Dr. Hensley in the outpatient setting. His oxygen appears to be close to his baseline requirement 3. Bilateral pleural effusions: Suspect this is related to fluid overload. He is anticoagulated on Coumadin. Currently on Lasix metolazone and Aldactone. Volume status slightly negative last few days the patient still has significant lower extremity edema. Will recheck chest x-ray in a.m.. If unable to diuresis due to blood pressure issues, could consider thoracentesis but the patient still has significant lower extremity edema which will require additional diuretics. Will need to follow kidney function electrolytes and blood pressure closely We will continue to follow with you. Please call if additional questions (2) Acute on chronic respiratory failure with hypoxia and hypercapnia: (3) Respiratory failure: Chronicity: acute Respiratory failure complication: hypoxia and hypercapnia Qualified Code(s): J96.01 - Acute respiratory failure with hypoxia; J96.02 - Acute respiratory failure with hypercapnia (4) Acute on chronic heart failure with preserved ejection fraction: Admission and Anticipated Discharge Date Admission Date: June 11, 2020 Subjective Patient states he had an episode this morning of increasing shortness of breath of unclear etiology. It resolved spontaneously. He was able to use BiPAP during the night. He continues to have lower extremity edema. He has felt some dizziness and states he has had a few blood pressures that are been on the low side. Review of Systems Review of Systems: All systems reviewed & are unremarkable except as noted in HPI & below Physical Exam Constitutional: well developed and + acute distress (unable to lie flat due to SOB); + not well nourished Eyes: PERRL, conjunctivae normal, anicteric sclerae ENMT: Ears: + hearing impairment Neck: normal visual inspection, trachea midline, + short neck and + thick neck Respiratory: Auscultation: + diminished lung sounds (bibasal); no crackles, no rales, no rhonchi and no wheezes Cardiovascular: Rate/Rhythm: regular rate and regular rhythm Heart Sounds: no murmur Vessels: + JVD Extremities: normal capillary refill and + pedal edema (3+ b/l equal to hips); no calf tenderness Gastrointestinal (Abdomen): Inspection/Auscultation: abdomen normal to inspection and normal bowel sounds; abdomen not distended Percussio n/Palpation: + abdomen tender (RUQ on deep palpation) and abdomen soft; no guarding and abdomen not rigid Musculoskeletal: no cyanosis or clubbing, extremities motor strength 5/5 Skin: no rashes, warm and dry Neurologic: moves all extremities, awake and + confused; no focal motor deficits (lateralizing) Speech / Cognition: normal speech Motor/Sensory: no tremor and no pronator drift Cranial Nerves: normal facial strength Psychiatric: Orientation: alert, oriented to person and oriented to place; + not oriented to time Genitourinary: no CVA tenderness Lymphatic: no cervical or axillary lymphadenopathy Results & Data Results & Data ([facility]) Vital Signs (Past 12 Hours) Vital Signs Temp Pulse Pulse Resp BP Pulse Ox 06/16/20 08:05 37 C 61 20 113/45 L 99 06/16/20 07:49 71 18 90 06/16/20 04:45 93 06/16/20 03:57 65 123/47 L 93 06/16/20 03:55 64 18 97/38 L 96 06/16/20 03:28 58 L 18 97 06/16/20 03:26 58 L 18 97 06/16/20 00:07 36.7 C 67 18 112/56 L 97 06/15/20 23:17 57 L 18 97 Laboratory Results 06/16/20 05:17 06/16/20 05:17 Diagnostic Findings No new imaging PG Care Time/CCT Total # of Minutes Spent Total Time Spent with Patient: Total time spent is greater than 50% in coordination of care (as documented) at patient's floor/unit and/or counseling patient: Coding Level of Care Code 13289 Subseq Hosp Care Lvl 3 Diagnoses Bilateral pleural effusion J90 Acute on chronic respiratory failure with hypoxia and hypercapnia J96.21; J96.22 Respiratory failure J96.01; J96.02 Chronicity: acute Respiratory failure complication: hypoxia and hypercapnia Acute on chronic heart failure with preserved ejection fraction I50.33
[2020-06-16] MEDS: FUROSEMIDE 80 MG TAB PO SCH (16:34)
[2020-06-16] MEDS: WARFARIN SOD 5 MG TAB PO SCH (16:34)
--- NOTE | 2020-06-16 18:47 | Hospitalist Progress Note ---
Date of Service June 16, 2020 Assessment & Plan (1) COPD (chronic obstructive pulmonary disease): (1) Acute on chronic heart failure with preserved ejection fraction: Richard Lobo is a 74yo M HFpEF echo 04/2020 EF 55-60%, aortic stenosis s/p TAVR, emphysema, anemia, CAD, HTN, chronic respiratory failure on 5L home O2, and GI bleed who presents with altered mental status for 4 days and increased dyspnea for 1 month. overall he is improving nicely - and hopefully will be able to get him home tomorrow Altered mental status 2/2 hypercarbic metabolic encephalopathy hypercapnic fairly severely, now improved overall acute and chronic hypercapnic and hypoxic respiratory failure - restrictive lung disease unclear etiology ?neuromuscular weakness - improved well w bipap. setting up device for home - due to chronic respiratory failure consequent to restrctive lung disease and chronic hypoventialtion, patient now requires a noninvasive home ventilator. bilevel therapy with and without a rate would be ineffective as pt requires a volume targeted mode. ventilation is required to decrease the work of breathing and improve pulmonary status. interruption of ventilator support would clearly lead to a decline of health status, as evidenced by his symptoms and ABGs earlier in hospital stay vs now after a night of respiratory therapist directed noninvasive ventilation. almost certainly will need chronic O2 as well. Acute on Chronic Hypoxic Hypercarbic Respiratory failure 2/2 CHF with effusion +/- hypoxia and diagramatic weakness vs severe ABDIEL - Suspected due to restrictive lung disease and congestive heart failure with underlying small chronic effusions. as well as lung disease as above restrictive lung disease -heavily contributory to above - unclear etiology - neuro input appreciated, labs ordered mostly pending. for outpt f/u. acute on chronic HFpEF -diuresed well. sl Cr bump, a little lightheaded, lower-end BP all suggest he's probably now finally on the dry side of euvolemic - change lasix 80mg IV bid to lasix 80mg PO bid. already pt of CHF clinic for [facility]. d/w pt that moving forward diuretic dosing may need to be somewhat dynamic - but at this point appears dry and appears that his current dosing is probably close to what he'll need -BMP in AM Afib on Warfarin - Warfarin held on admit ?need for thoracentesis, but since this is highly unlikely - back on coumadin - continue to follow INR - rate controlled - continue current meds otherwise RAND on CKD, improved - baseline cr ~1.0, Peaked at 1.9 on admit, downtrended - follow w diuresis - still acceptable although sl bump does suggest that he's probably been adequately diuresed Cholecystitis, gallbladder distention CT abdomen shows distended gallbladder and 1.6 cm pancreatic head cyst Positive radiographic Guadalupe sign On clinic exam patient focally tender in right upper quadrant to palpation. He denies pain with meals, steatorrhea, or abdominal pain at rest Afebrile, no leukocytosis - Pt high risk for surgical intervention. - continue Zosyn as medical therapy at this time. he is still mildly tender to exam but eating well. CMP in AM. 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 Warfarin Diet: HH Dispo: anticipate home tomorrow --->already has home O2 --->case management has set up noninvasive home ventilation --->[facility] to monitor diuretic dose/BMP --->neuro f/u for further w/u of neuromuscular weakness --->ongoing abx and repeat US for gallbladder --->serial follow up of INR Admission and Anticipated Discharge Date Admission Date: June 11, 2020 Subjective breathing feeling better. does note that he feels a little lightheaded and notes that his BP is lower than he normally recalls running otherwise feeling better and hopeful for home soon no other new complaints Review of Systems Review of Systems: All systems reviewed & are unremarkable except as noted in HPI & below Physical Exam Physical Exam: gen aao pleasant nad heent nc at mmm lungs quiet but cta b/l no r/r/w good effort skin no rashes no pallor or icterus neuro no focal deficits Results & Data Results & Data ([facility]) Vital Signs (Past 12 Hours) Vital Signs Temp Pulse Resp BP Pulse Ox 06/16/20 15:38 98.1 F 74 18 110/44 L 92 06/16/20 15:12 73 18 93 06/16/20 11:49 54 L 18 93 06/16/20 08:05 98.6 F 61 20 113/45 L 99 06/16/20 07:49 71 18 90 PG Care Time/CCT Total # of Minutes Spent Total Time Spent with Patient: Total time spent is greater than 50% in coordinat ion of care (as documented) at patient's floor/unit and/or counseling patient: Coding Level of Care Code 91832 Subseq Hosp Care Lvl 3 Diagnoses COPD (chronic obstructive pulmonary disease) J44.9
[2020-06-17] MEDS: ALBUT/IPRATROP 3MG/0.5MG NEB 3 ML VIAL NEB SCH ×2 (03:30→07:07)
--- NOTE | 2020-06-17 08:35 | XRay Report ---
XR chest 1V portable CLINICAL HISTORY: effusions COMPARISON STUDY: Chest radiograph June 13, 2020. FINDINGS: A moderate left pleural effusion has mildly increased since scan of June 13, 2020. A small right pleural effusion is unchanged. Bibasilar opacities persist. There is no pneumothorax. Mild pulm onary edema has slightly increased. Cardiomegaly is again noted with a prosthetic aortic valve. IMPRESSION: 1. Moderate left pleural effusion, mildly increased in size since prior exam. 2. No change in a small right pleural effusion. 3. Mild increase in pulmonary edema. ACT 112: Negative or not required by law. Electronically signed by: Anjum Chaudhry M.D. 06/17/2020 8:33 AM
[2020-06-17] MEDS ORDERED: ALBUT/IPRATROP 3MG/0.5MG NEB 3 ML VIAL NEB PRN (08:51)
[2020-06-17 08:55] LABS: Basophils # (auto) 0.03 K/uL (0-0.2); Basophils % (auto) 0.5 %; Eosinophils # (auto) 0.22 K/uL (0-0.5); Eosinophils % (auto) 3.7 %; Hemoglobin 9.1 g/dL (14.0-18.0); Lymphocytes # (auto) 0.81 K/uL (1.2-3.4); Lymphocytes % (auto) 13.5 %; Mean Corpuscular Hemoglobin 28.6 pg (25-34); Mean Corpuscular Hgb Conc 30.3 g/dL (32-36); Mean Corpuscular Volume 94.3 fL (80-100); Mean Platelet Volume 9.9 fL (7.4-10.4); Monocytes # (auto) 0.76 K/uL (0.11-0.59); Monocytes % (auto) 12.7 %; Neutrophils # (auto) 4.17 K/uL (1.4-6.5); Neutrophils % (auto) 69.6 %; Platelet Count 283 K/uL (130-400); RDW Coefficient of Variation 15.2 % (11.5-14.5); RDW Standard Deviation 52.2 fL (36.4-46.3); Red Blood Count 3.18 M/uL (4.7-6.1); White Blood Count 5.99 K/uL (4.8-10.8)
[2020-06-17] MEDS: DOCUSATE SODIUM 100 MG CAP PO SCH ×2 (08:56→20:19)
[2020-06-17] MEDS: SPIRONOLACTONE 25 MG TAB PO SCH (08:56)
[2020-06-17] MEDS: FLUTICASONE/VILANTEROL 100/25MCG 14 PUFFS/INHALER INH SCH (08:56)
[2020-06-17] MEDS: LOSARTAN POTASSIUM 25 MG TAB PO SCH (08:56)
[2020-06-17] MEDS: FERROUS SULFATE 325 MG TAB PO SCH (08:57)
[2020-06-17] MEDS: POTASSIUM CHLORIDE 20 MEQ TABCR PO SCH ×2 (08:57→20:20)
[2020-06-17] MEDS: FUROSEMIDE 80 MG TAB PO SCH ×2 (08:57→17:37)
[2020-06-17] MEDS: ATORVASTATIN 40 MG TAB PO SCH (08:58)
[2020-06-17] MEDS: ESCITALOPRAM OXALATE 20 MG TAB PO SCH (08:58)
[2020-06-17] MEDS: MAGNESIUM OXIDE 400 MG TAB PO SCH (08:58)
[2020-06-17] MEDS: MULTIVITAMIN TAB PO SCH (08:58)
[2020-06-17] MEDS: PANTOprazole 40 MG TAB PO SCH ×2 (08:59→20:20)
[2020-06-17] MEDS: metOLazone 5 MG TABLET PO SCH (08:59)
[2020-06-17] MEDS: SODIUM CHLORIDE 0.65% NA SOLN 45 ML (OCEAN) NAE SCH ×2 (09:10→20:21)
[2020-06-17] MEDS: METOPROLOL TARTRATE 25 MG TAB PO SCH ×2 (09:10→20:21)
[2020-06-17] MEDS: INSULIN ASPART 100 UNITS/ML 3 ML PEN SC SCH ×4 (09:16→20:34)
[2020-06-17 09:22] LABS: Albumin Level 3.3 gm/dl (3.4-5.0); BUN Creatinine Ratio 23.1 (10-20); Calcium 9.5 mg/dl (8.5-10.1); Creatinine Clr Calc Pharmacy 52.2 ml/min; Est GFR (African American) 58.7; Est GFR (Non-African American) 50.6; Potassium 3.5 mmol/L (3.5-5.1)
[2020-06-17 09:25] LABS: Albumin Globulin Ratio 0.9 (0.9-2); Bilirubin,Total 0.2 mg/dl (0.2-1); Globulin 3.5 gm/dl (2.5-4.0); Total Protein 6.8 gm/dl (6.4-8.2)
[2020-06-17 09:30] LABS: Calcium 9.6 mg/dl (8.5-10.1); Creatinine Clr Calc Pharmacy 53.4 ml/min; Est GFR (African American) 60.3; Potassium 3.5 mmol/L (3.5-5.1)
[2020-06-17] MEDS: PIPERACILLIN/TAZOBACTAM 3.375 GM in DEXTROSE 5% 100 ML IV SCH ×2 (09:35→16:44)
--- NOTE | 2020-06-17 11:45 | Pulmonology Progress Note ---
Date of Service June 17, 2020 Assessment & Plan (1) Bilateral pleural effusion: Impression: 74-year-old male with diastolic dysfunction status post TAVR placement now with evidence of fluid overload including bilateral pleural effusions. He does have a history of chronic hypoxemic and hypercarbic respiratory failure but appears adequately compensated currently with a normal pH. He reportedly carries a history of obstructive lung disease although his last PFTs from 5 years ago demonstrated more of a restrictive pattern of unclear etiology. Recommendations: 1. Restrictive lung disease: Patient is tolerating BiPAP well. He has been referred for trilogy noninvasive ventilation on discharge and this has been approved. Patient's DME provider is [facility] out of [place]. Once patient is recommended for discharge by hospitalist team, DME will be set up at his home. Would recommend follow-up with Dr. Hensley on discharge. Patient is now on his baseline home oxygen requirement 5 L/min via nasal cannula. 2. Hypoxemic and hypercarbic respiratory failure: Patient is tolerating BiPAP nightly better. Repeat ABG demonstrated efficacy and improvement of PCO2 after 1 night of use. Patient has been doing better tolerating BiPAP at night and feels that he can be compliant with a nocturnal trilogy. Patient has qualified for trilogy. Case management to set up delivery for discharge. Follow-up with Dr. Hensley on discharge. Patient is at his baseline 5L/min via [place] 3. Bilateral pleural effusions: Suspect this is related to fluid overload. He is anticoagulated on Coumadin. Currently on Lasix metolazone and Aldactone. Patient is negative 4 liters since admission but still has B/L LE pitting edema. Albumin level is 3.3. Total protein 6.8. Continue diuretics and strict I's and O's We will continue to follow with you. Please refer to Dr. Mcknight's addendum for any further recommendations. (2) Acute on chronic respiratory failure with hypoxia and hypercapnia: (3) Respiratory failure: Chronicity: acute Respiratory failure complication: hypoxia and hypercapnia Qualified Code(s): J96.01 - Acute respiratory failure with hypoxia; J96.02 - Acute respiratory failure with hypercapnia (4) Acute on chronic heart failure with preserved ejection fraction: Admission and Anticipated Discharge Date Admission Date: June 11, 2020 Supervising Physician Co-Signing Physician Notes Doing well clinically. Continue diuresis. Chest x-ray demonstrates persistent pleural effusions. Coumadin is been restarted. Continue current management. Subjective Attending: Dr. Mcknight Patient seen and examined at bedside. Patient has been moved up to [facility] and seen in room 357 bed 1. Patient is sleeping comfortably at the time of my visit. He is easily aroused with verbal stimuli. He states that his breathing seems to be improved since admission. He has no significant cough or sputum production. He does state that he is tolerating BiPAP better and is slowly getting used to it. He denies any fever or chills. He has no hemoptysis. He has no chest pain or tightness. Patient does continue to have lower extremity edema. He is tolerating diuretics well. The patient has no other acute complaints at this time. Review of Systems Review of Systems: All systems reviewed & are unremarkable except as noted in HPI & below Physical Exam Physical Exam: GENERAL : No acute distress EYES: No icterus, gaze conjugate NOSE: No evidence of epistaxis MOUTH: No lesions or candidiasis NECK: Supple LUNGS: Bibasilar crackles. Breath sounds do sound diminished at the bases. No appreciation of bronchospasm or rhonchi. HEART: Regular, rate controlled ABDOMEN: Soft, NT, ND, BS Present EXTREMITIES: +2 bilateral LE edema, pedal pulses intact and equal bilaterally NEURO: A&OX3 Results & Data Results & Data ([facility]) Vital Signs (Past 12 Hours) Vital Signs Temp Pulse Pulse Resp BP Pulse Ox 06/17/20 09:11 114/46 L 06/17/20 08:03 36.5 C 66 18 133/56 L 95 06/17/20 07:07 89 18 97 06/17/20 03:31 58 L 18 98 06/16/20 23:33 36.8 C 66 18 152/53 H 99 Diagnostic Findings XR chest 1V portable CLINICAL HISTORY: effusions COMPARISON STUDY: Chest radiograph June 13, 2020. FINDINGS: A moderate left pleural effusion has mildly increased since scan of June 13, 2020. A small right pleural effusion is unchanged. Bibasilar opacities persist. There is no pneumothorax. Mild pulmonary edema has slightly increased. Cardiomegaly is again noted with a prosthetic aortic valve. IMPRESSION: 1. Moderate left pleural effusion, mildly increased in size since prior exam. 2. No change in a small right pleural effusion. 3. Mild increase in pulmonary edema. ACT 112: Negative or not required by law. Electronically signed by: Anjum Chaudhry M.D. 06/17/2020 8:33 AM PG Care Time/CCT Total # of Minutes Spent Total Time Spent with Patient: Total time spent is greater than 50% in coordination of care (as documented) at patient's floor/unit and/or counseling patient: 30 minutes Coding Level of Care Code 06657 Subseq Hosp Care Lvl 2 Diagnoses Bilateral pleural effusion J90 Acute on chronic respiratory failure with hypoxia and hypercapnia J96.21; J96.22 Respiratory failure J96.01; J96.02 Chronicity: acute Respiratory failure complication: hypoxia and hypercapnia Acute on chronic heart failure with preserved ejection fraction I50.33
[2020-06-17] MEDS ORDERED: SODIUM CHLORIDE 0.9% 1000ML 250 ML IV ONE (16:09)
[2020-06-17] MEDS: WARFARIN SOD 5 MG TAB PO SCH (16:10)
--- NOTE | 2020-06-17 19:53 | Hospitalist Progress Note ---
Date of Service June 17, 2020 Assessment & Plan (1) Acute on chronic respiratory failure with hypoxia and hypercapnia: acute component improved. 2nd to decompensated CHF. NC O2 requirement back down to baseline (usually 5 L/min). chronic resp failure 2nd to COPD. (2) Acute on chronic heart failure with preserved ejection fraction: marked improvement clinically. although he has peripheral edema and some mild rales on exam he was markedly dizzy and orthostatic today. had to give 250cc of NS x 1 and I held his triple diuretics. follow serial orthostatics. once normal gradually resume diuretic therapy. will follow with [facility]. cont BB. hold ARB for now. (3) Acute metabolic encephalopathy: 2nd to hypercarbia - resolved (4) COPD (chronic obstructive pulmonary disease): without exacerbation appreciate pulmonary consultation cont inhalers and nebs prn oxygen dependent (5) Acute renal failure: Peak Cr 1.9, now 1.3 BMP in am (6) S/P TAVR (transcatheter aortic valve replacement): [facility] 04/2020 echo this admission with good valve function & gradient EF preserved (7) CAD (coronary artery disease): by report no significant disease on cath done at [facility] [place] (8) Gall stones: no symptoms or signs of such although has been receiving IV zosyn will stop antibiotics and see if any symptoms recur very poor candidate for any intervention if indeed he has a brewing cholecystitis (9) Prediabetes: novolog ac/hs DM diet (10) Hypertension: hold diuretics and ARB as above cont BB (11) Chronic anticoagulation: started at [facility] when left atrial appendage thrombus was discovered daily INR coumadin 5mg daily (12) Thrombus of atrial appendage: coumadin 5mg daily INR daily (13) DVT prophylaxis: coumadin cont PT/OT Admission and Anticipated Discharge Date Admission Date: June 11, 2020 Subjective patient with dizziness upon standing today. experienced this multiple times. gets it occasionally at home but much worse than normal. with the dizziness his vision was blurry earlier this afternoon. blurry vision resolved when he layed down. orthostatics checked - 30+ point drop in systolic BP. gave 250cc NS bolus - orthostasis better, dizziness better. no cough. eating well. mild HOOVER - better than when he first came to hospital. Review of Systems Constitutional: no fever, no chills, no fatigue and no anorexia Respiratory: no wheezing Cardiovascular: + lightheadedness; no chest pain and no orthopnea Gastrointestinal: no abdominal pain, no belching, no bloating, no early satiety, no heartburn, no nausea and no vomiting Physical Exam Constitutional: well developed and well nourished; no acute distress and no altered mental status ENMT: external ear and nose normal, oropharynx normal Respiratory: Auscultation: + diminished lung sounds (bases) and + crackles (mild - faint) Cardiovascular: Rate/Rhythm: regular rate Heart Sounds: normal S1 and normal S2; no murmur Vessels: posterior tibial pulses present and dorsalis pedis pulses present; no JVD Extremities: + edema (1-2+ b/l ) Gastrointestinal (Abdomen): normal bowel sounds, soft, nontender, no hepatosplenomegaly Psychiatric: A+Ox3, euthymic affect Results & Data Results & Data ([facility]) Vital Signs (Past 12 Hours) Vital Signs Temp Pulse Pulse Resp BP Pulse Ox 06/17/20 16:57 109/57 L 06/17/20 16:54 90/36 L 06/17/20 16:51 112/41 L 06/17/20 15:53 114/52 L 06/17/20 15:50 119/75 06/17/20 15:49 148/41 H 06/17/20 15:43 117/48 L 06/17/20 15:23 36.7 C 69 18 109/41 L 97 06/17/20 09:11 114/46 L 06/17/20 08:03 36.5 C 66 18 133/56 L 95 Laboratory Results Laboratory Results - last 24 hr 06/17/20 06/17/20 06/17/20 08:16 08:31 08:31 WBC 5.99 RBC 3.18 L Hgb 9.1 L Hct 30.0 L MCV 94.3 MCH 28.6 MCHC 30.3 L RDW Std Deviation 52.2 H RDW Coeff of Vesta 15.2 H Plt Count 283 MPV 9.9 Immature Gran % (Auto) 0.0 Neut % (Auto) 69.6 Lymph % (Auto) 13.5 Pickett % (Auto) 12.7 Eos % (Auto) 3.7 Baso % (Auto) 0.5 Neut # (Auto) 4.17 Lymph # (Auto) 0.81 L Pickett # (Auto) 0.76 H Eos # (Auto) 0.22 Baso # (Auto) 0.03 Immature Gran # (Auto) 0.00 Sodium 135 L Potassium 3.5 Chloride 90 L Carbon Dioxide 40 H Anion Gap 4.0 BUN 31 H Creatinine 1.35 Est Cr Clr Drug Dosing 52.2 Est GFR ( Amer) 58.7 Est GFR (Non-Af Amer) 50.6 BUN/Creatinine Ratio 23.1 H Glucose 96 POC Glucose 136 H Calcium 9.5 Magnesium Total Bilirubin 0.2 AST 11 L ALT 21 Alkaline Phosphatase 57 Total Protein 6.8 Albumin 3.3 L Globulin 3.5 Albumin/Globulin Ratio 0.9 06/17/20 06/17/20 06/17/20 08:31 11:59 17:05 WBC RBC Hgb Hct MCV MCH MCHC RDW Std Deviation RDW Coeff of Vesta Plt Count MPV Immature Gran % (Auto) Neut % (Auto) Lymph % (Auto) Pickett % (Auto) Eos % (Auto) Baso % (Auto) Neut # (Auto) Lymph # (Auto) Pickett # (Auto) Eos # (Auto) Baso # (Auto) Immature Gran # (Auto) Sodium 135 L Potassium 3.5 Chloride 90 L Carbon Dioxide 41 H* Anion Gap 4.0 BUN 32 H Creatinine 1.32 Est Cr Clr Drug Dosing 53.4 Est GFR ( Amer) 60.3 Est GFR (Non-Af Amer) 52.0 BUN/Creatinine Ratio 24.0 H Glucose 99 POC Glucose 114 H 156 H Calcium 9.6 Magnesium Total Bilirubin AST ALT Alkaline Phosphatase Total Protein Albumin Globulin Albumin/Globulin Ratio 06/17/20 20:26 WBC RBC Hgb Hct MCV MCH MCHC RDW Std Deviation RDW Coeff of Vesta Plt Count MPV Immature Gran % (Auto) Neut % (Auto) Lymph % (Auto) Pickett % (Auto) Eos % (Auto) Baso % (Auto) Neut # (Auto) Lymph # (Auto) Pickett # (Auto) Eos # (Auto) Baso # (Auto) Immature Gran # (Auto) Sodium Potassium Chloride Carbon Dioxide Anion Gap BUN Creatinine Est Cr Clr Drug Dosing Est GFR ( Amer) Est GFR (Non-Af Amer) BUN/Creatinine Ratio Glucose POC Glucose 76 Calcium Magnesium Total Bilirubin AST ALT Alkaline Phosphatase Total Protein Albumin Globulin Albumin/Globulin Ratio PG Care Time/CCT Total # of Minutes Spent Total Time Spent with Patient: Total time spent is greater than 50% in coordination of care (as documented) at patient's floor/unit and/or counseling patient: Coding Level of Care Code 77825 Subseq Hosp Care Lvl 3 Diagnoses Acute on chronic respiratory failure with hypoxia and hypercapnia J96.21; J96.22 Acute on chronic heart failure with preserved ejection fraction I50.33 Acute metabolic encephalopathy G93.41 COPD (chronic obstructive pulmonary disease) J44.9 Acute renal failure N17.9 Acute renal failure type: unspecified S/P TAVR (transcatheter aortic valve replacement) Z95.2 CAD (coronary artery disease) I25.10 Gall stones K80.20 Prediabetes R73.03 Hypertension I10 Hypertension type: essential hypertension Chronic anticoagulation Z79.01 Thrombus of atrial appendage I51.3 DVT prophylaxis Z29.9 (1) Acute renal failure Acute renal failure type: unspecified Qualified Code(s): N17.9 - Acute kidney failure, unspecified (2) Hypertension Hypertension type: essential hypertension Qualified Code(s): I10 - Essential (primary) hypertension
[2020-06-18 06:28] LABS: BUN Creatinine Ratio 26.4 (10-20); Calcium 9.3 mg/dl (8.5-10.1); Creatinine Clr Calc Pharmacy 48.3 ml/min; Est GFR (African American) 52.9; Est GFR (Non-African American) 45.7; Magnesium 2.8 mg/dl (1.8-2.4); Potassium 3.9 mmol/L (3.5-5.1)
[2020-06-18] MEDS: SODIUM CHLORIDE 0.65% NA SOLN 45 ML (OCEAN) NAE SCH ×2 (08:19→20:52)
[2020-06-18] MEDS: ATORVASTATIN 40 MG TAB PO SCH (08:20)
[2020-06-18] MEDS: FERROUS SULFATE 325 MG TAB PO SCH (08:20)
[2020-06-18] MEDS: LOSARTAN POTASSIUM 25 MG TAB PO SCH (08:20)
[2020-06-18] MEDS: FLUTICASONE/VILANTEROL 100/25MCG 14 PUFFS/INHALER INH SCH (08:20)
[2020-06-18] MEDS: MAGNESIUM OXIDE 400 MG TAB PO SCH (08:20)
[2020-06-18] MEDS: ESCITALOPRAM OXALATE 20 MG TAB PO SCH (08:20)
[2020-06-18] MEDS: POTASSIUM CHLORIDE 20 MEQ TABCR PO SCH ×2 (08:20→20:39)
[2020-06-18] MEDS: PANTOprazole 40 MG TAB PO SCH ×2 (08:20→20:40)
[2020-06-18] MEDS: METOPROLOL TARTRATE 25 MG TAB PO SCH ×2 (08:21→20:40)
[2020-06-18] MEDS: MULTIVITAMIN TAB PO SCH (08:21)
[2020-06-18] MEDS: DOCUSATE SODIUM 100 MG CAP PO SCH ×2 (08:22→20:39)
[2020-06-18 08:40] LABS: INR 1.4 (0.9-1.1); Prothrombin Time 14.2 Seconds (9.0-12.0)
[2020-06-18] MEDS: INSULIN ASPART 100 UNITS/ML 3 ML PEN SC SCH ×4 (08:51→20:45)
--- NOTE | 2020-06-18 12:27 | Pulmonology Progress Note ---
Date of Service June 18, 2020 Assessment & Plan (1) Bilateral pleural effusion: 20 minutes Impression: 74-year-old male with diastolic dysfunction status post TAVR placement now with evidence of fluid overload including bilateral pleural effusions. He does have a history of chronic hypoxemic and hypercarbic respiratory failure but appears adequately compensated currently with a normal pH. He reportedly carries a history of obstructive lung disease although his last PFTs from 5 years ago demonstrated more of a restrictive pattern of unclear etiology. Recommendations: 1. Restrictive lung disease: Patient is tolerating BiPAP well as a rule. He has been referred for trilogy noninvasive ventilation on discharge and this has been approved. Patient's DME provider is [facility] out of [place]. Once patient is recommended for discharge by hospitalist team, DME will be set up at his home. Would recommend follow-up with Dr. Hensley on discharge. Patient is now on his baseline home oxygen requirement 5 L/min via nasal cannula. No acute changes to status since yesterday 2. Hypoxemic and hypercarbic respiratory failure: Patient is tolerating BiPAP nightly better. Repeat ABG demonstrated efficacy and improvement of PCO2 after 1 night of use. Patient has been doing better tolerating BiPAP at night and feels that he can be compliant with a nocturnal trilogy. Patient has qualified for trilogy. Case management to set up delivery for discharge. Follow-up with Dr. Hensley on discharge. Patient is at his baseline 5L/min via NC. 3. Bilateral pleural effusions: Suspect this is related to fluid overload. He is anticoagulated on Coumadin. Currently on Lasix metolazone and Aldactone. Patient is negative 4 liters since admission but still has B/L LE pitting edema. Albumin level is 3.3. Total protein 6.8. Continue diuretics and strict I's and O's. Continue to follow cumulative fluid balance At this time, we will sign off and follow peripherally. We will also be glad to see the patient in the outpatient setting with Dr. Hensley (2) Acute on chronic respiratory failure with hypoxia and hypercapnia: (3) Respiratory failure: Chronicity: acute Respiratory failure complication: hypoxia and hypercapnia Qualified Code(s): J96.01 - Acute respiratory failure with hypoxia; J96.02 - Acute respiratory failure with hypercapnia (4) Acute on chronic heart failure with preserved ejection fraction: Admission and Anticipated Discharge Date Admission Date: June 11, 2020 Subjective Attending: Dr. Mcknight Patient seen and examined at bedside in bedside chair. He continues with some SOB but states that it is consistent with his baseline. He did not sleep well last night and reports that he was not placed on BiPAP until about 1am and then could not fall asleep. No fever or chills. No specific cough. No acute changes or complaints Review of Systems Review of Systems: All systems reviewed & are unremarkable except as noted in HPI & below Physical Exam Physical Exam: GENERAL : No acute distress EYES: No icterus, gaze conjugate NOSE: No evidence of epistaxis MOUTH: No lesions or candidiasis NECK: Supple LUNGS: Decreased at bilateral bases. No wheezes, rales or rhonchi HEART: Regular, rate controlled ABDOMEN: Soft, NT, ND, BS Present EXTREMITIES: +1 B/L LE edema, pedal pulses intact NEURO: A&OX3 Results & Data Results & Data ([facility]) Vital Signs (Past 12 Hours) Vital Signs Temp Pulse Resp BP Pulse Ox 06/18/20 08:07 36.7 C 66 18 163/64 H 92 Laboratory Results 06/17/20 08:31 06/18/20 05:43 Diagnostic Findings No new imaging since yesterday PG Care Time/CCT Total # of Minutes Spent Total Time Spent with Patient: Total time spent is greater than 50% in coordination of care (as documented) at patient's floor/unit and/or counseling patient: 20 minutes including discussion with other providers Coding Level of Care Code 01939 Subseq Hosp Care Lvl 2 Diagnoses Bilateral pleural effusion J90 Acute on chronic respiratory failure with hypoxia and hypercapnia J96.21; J96.22 Respiratory failure J96.01; J96.02 Chronicity: acute Respiratory failure complication: hypoxia and hypercapnia Acute on chronic heart failure with preserved ejection fraction I50.33 Time Spent (min) 20
[2020-06-18] MEDS: WARFARIN SOD 5 MG TAB PO SCH (16:29)
[2020-06-18] MEDS ORDERED: FUROSEMIDE 80 MG TAB PO SCH (17:00)
--- NOTE | 2020-06-18 17:57 | Cardiology Progress Note ---
Date of Service June 18, 2020 Assessment & Plan (1) Acute on chronic diastolic (congestive) heart failure: 2. Hypoxemic and hypercarbic respiratory failure 3. Prior severe aortic stenosis post TAVR 4. Acute on chronic renal insufficiency 5. Anemia 6. 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 Paroxysmal SVT 8. Restrictive lung disease 9. Type 2 diabetes Respiratory status improved from admission. Able to walk halls with assistance. Mild persistent congestion on exam Orthostasis yesterday. BUN/SCr trending up. -- Repeat proBNP in AM -- Recommend transition from lasix to Bumex 2mg BID -- Change thiazide to PRN. -- Continue spironolactone -- Hold ARB -- Continue beta-criss -- Strict I/Os, daily weights -- Coumadin restarted -- From a cardiac standpoint OK with discharge tomorrow with close cardiac follow-up Admission and Anticipated Discharge Date Admission Date: June 11, 2020 Subjective Breathing comfortable. Able to walk the halls this afternoon without chest pain or severe shortness of breath. Yesterday with walking did have presyncope. No recurrent presyncope today. Mild increase in lower extremity edema over the course of the day No other new concerns Review of Systems Review of Systems: All systems reviewed & are unremarkable except as noted in HPI & below Physical Exam Physical Exam: General: Comfortable, no acute distress, sitting up in chair with nasal cannula, [address] HEENT: Sclerae anicteric, mucous membranes moist Lungs: Decreased breath sounds at the bases bilaterally Cardiac: Regularly irregular, bigeminy, crisp aortic valve closure Abdomen: Soft, nontender, positive bowel sound Extremities: Warm, well perfused, 1+ lower extremity mid to lower shins bilaterally Skin: No rashes or lesions. Neuro: Nonfocal Psych: Alert orient x3, normal affect and mood Results & Data ([facility]) Vital Signs (Past 12 Hours) Vital Signs Temp Pulse Resp BP Pulse Ox 06/18/20 17:15 68 16 101/38 L 95 06/18/20 15:03 98.6 F 55 L 18 112/68 98 06/18/20 08:07 98.1 F 66 18 163/64 H 92 PG Care Time/CCT Total # of Minutes Spent Total Time Spent with Patient: Total time spent is greater than 50% in coordination of care (as documented) at patient's floor/unit and/or counseling patient: Coding Level of Care Code 02603 Subseq Hosp Care Lvl 3 Diagnoses Acute on chronic diastolic (congestive) heart failure I50.33
--- NOTE | 2020-06-18 21:30 | Hospitalist Progress Note ---
Date of Service June 18, 2020 Assessment & Plan (1) Acute on chronic respiratory failure with hypoxia and hypercapnia: acute component resolved. was 2nd to decompensated CHF. NC O2 requirement back down to baseline (usually 5 L/min). chronic resp failure 2nd to COPD. (2) Acute on chronic heart failure with preserved ejection fraction: marked improvement clinically but still has volume overload to some degree. I am uncertain what his "dry weight" is. unfortunately, despite volume overload, I believe he has some element of intravascular volume contraction as he has been orthostatic and BUN and Cr continue to inch up. discussed his care with Dr De from cardiology. plan - stop ARB. cont BB. diuretic regimen - bumex 2mg BID; aldactone 25mg daily. will need to f/u with Ms Herrera in CHF clinic post-d/c. BMP am. (3) Acute metabolic encephalopathy: 2nd to hypercarbia - resolved (4) COPD (chronic obstructive pulmonary disease): without exacerbation appreciate pulmonary consultation cont inhalers and nebs prn oxygen dependent (5) Acute renal failure: Peak Cr 1.9, now 1.4 BMP in am (6) S/P TAVR (transcatheter aortic valve replacement): [facility] 04/2020 echo this admission with good valve function & gradient EF preserved (7) CAD (coronary artery disease): by report no significant disease on [place] [facility] [place] (8) Gall stones: no symptoms or signs of such although had been receiving IV zosyn stopped antibiotics no recurrent GI symptoms cont to follow OFF antibiotics (9) Prediabetes: novolog ac/hs DM diet (10) Hypertension: stop ARB cont BB (11) Chronic anticoagulation: [place] [facility] [place] left atrial appendage thrombus was discovered daily INR coumadin 5mg daily (12) Thrombus of atrial appendage: coumadin 5mg daily INR daily (13) DVT prophylaxis: coumadin cont PT/OT - but cleared for home home tomorrow?? left message for 06/18 Admission and Anticipated Discharge Date Admission Date: June 11, 2020 Subjective no new complaints today dizziness improved did work with PT and had mild lightheadedness but improved from prior HOOVER is at baseline still with LE edema Review of Systems Constitutional: no fever Respiratory: + dyspnea on exertion; no cough Cardiovascular: no dyspnea at rest Gastrointestinal: no abdominal pain Physical Exam Constitutional: well developed and well nourished; no acute distress and no altered mental status ENMT: external ear and nose normal, oropharynx normal Respiratory: normal respiratory effort, lungs clear to auscultation Auscultation: + diminished lung sounds (bases) and + crackles (mild - faint) Cardiovascular: Rate/Rhythm: regular rate Heart Sounds: normal S1 and n ormal S2; no murmur Vessels: posterior tibial pulses present and dorsalis pedis pulses present; no JVD Extremities: + edema (2+ b/l ) Gastrointestinal (Abdomen): normal bowel sounds, soft, nontender, no hepatosplenomegaly Psychiatric: A+Ox3, euthymic affect Results & Data Results & Data ([facility]) Vital Signs (Past 12 Hours) Vital Signs Temp Pulse Resp BP Pulse Ox 06/18/20 20:37 36.5 C 71 16 116/41 L 95 06/18/20 17:15 68 16 101/38 L 95 06/18/20 15:03 37.0 C 55 L 18 112/68 98 Laboratory Results Laboratory Results - last 24 hr 06/18/20 06/18/20 06/18/20 05:43 08:16 08:28 PT 14.2 H INR 1.4 H Sodium 138 Potassium 3.9 Chloride 93 L Carbon Dioxide 40 H Anion Gap 5.0 BUN 39 H Creatinine 1.47 H Est Cr Clr Drug Dosing 48.3 Est GFR ( Amer) 52.9 Est GFR (Non-Af Amer) 45.7 BUN/Creatinine Ratio 26.4 H Glucose 113 H POC Glucose 124 H Calcium 9.3 Magnesium 2.8 H 06/18/20 06/18/20 06/18/20 12:19 17:15 20:37 PT INR Sodium Potassium Chloride Carbon Dioxide Anion Gap BUN Creatinine Est Cr Clr Drug Dosing Est GFR ( Amer) Est GFR (Non-Af Amer) BUN/Creatinine Ratio Glucose POC Glucose 125 H 105 H 141 H Calcium Magnesium PG Care Time/CCT Total # of Minutes Spent Total Time Spent with Patient: Total time spent is greater than 50% in coordination of care (as documented) at patient's floor/unit and/or counseling patient: Coding Level of Care Code 36410 Subseq Hosp Care Lvl 2 Diagnoses Acute on chronic respiratory failure with hypoxia and hypercapnia J96.21; J96. 22 Acute on chronic heart failure with preserved ejection fraction I50.33 Acute metabolic encephalopathy G93.41 COPD (chronic obstructive pulmonary disease) J44.9 Acute renal failure N17.9 Acute renal failure type: unspecified S/P TAVR (transcatheter aortic valve replacement) Z95.2 CAD (coronary artery disease) I25.10 Gall stones K80.20 Prediabetes R73.03 Hypertension I10 Hypertension type: essential hypertension Chronic anticoagulation Z79.01 Thrombus of atrial appendage I51.3 DVT prophylaxis Z29.9 (1) Acute renal failure Acute renal failure type: unspecified Qualified Code(s): N17.9 - Acute kidney failure, unspecified (2) Hypertension Hypertension type: essential hypertension Qualified Code(s): I10 - Essential (primary) hypertension
[2020-06-19 07:04] LABS: INR 1.3 (0.9-1.1); Prothrombin Time 13.6 Seconds (9.0-12.0)
[2020-06-19 07:31] LABS: BUN Creatinine Ratio 27.8 (10-20); Calcium 9.2 mg/dl (8.5-10.1); Creatinine Clr Calc Pharmacy 36.4 ml/min; Est GFR (African American) 37.6; Est GFR (Non-African American) 32.5; Potassium 4.2 mmol/L (3.5-5.1)
[2020-06-19] MEDS: SPIRONOLACTONE 25 MG TAB PO SCH (08:48)
[2020-06-19] MEDS: BUMETANIDE 1 MG TAB PO SCH ×2 (08:49→17:11)
[2020-06-19] MEDS: INSULIN ASPART 100 UNITS/ML 3 ML PEN SC SCH ×4 (08:59→20:52)
[2020-06-19] MEDS: FLUTICASONE/VILANTEROL 100/25MCG 14 PUFFS/INHALER INH SCH (09:01)
[2020-06-19] MEDS: DOCUSATE SODIUM 100 MG CAP PO SCH ×2 (09:01→20:15)
[2020-06-19] MEDS: POTASSIUM CHLORIDE 20 MEQ TABCR PO SCH ×2 (09:02→20:15)
[2020-06-19] MEDS: METOPROLOL TARTRATE 25 MG TAB PO SCH ×2 (09:02→20:18)
[2020-06-19] MEDS: PANTOprazole 40 MG TAB PO SCH ×2 (09:03→20:17)
[2020-06-19] MEDS: SODIUM CHLORIDE 0.65% NA SOLN 45 ML (OCEAN) NAE SCH ×2 (09:03→20:18)
--- NOTE | 2020-06-19 09:13 | Neurology Progress Note ---
Date of Service June 19, 2020 Assessment & Plan (1) Muscle weakness (generalized): (2) Easy fatigability: (3) Idiopathic polyneuropathy: (4) Diplopia: (5) Acute on chronic respiratory failure with hypoxia and hypercapnia: (6) Acute on chronic heart failure with preserved ejection fraction: (7) Acute renal failure: patient has a generalized sense of weakness particularly in the legs and fatigue with easy fatigability. He feels somewhat better now than he did on admission with these issues but is not back to baseline. On neurologic examination he does not have any focal deficits, meningeal signs, or encephalopathy. I believe he has a sense of fatigue and weakness from his cardiopulmonary issues ( respiratory and cardiac failure) as well as some renal insufficiency. Although I cannot entirely exclude an underlying myopathy he has no proximal weakness or muscle tenderness. In fact, his muscles appear quite strong to me and symmetrical. He has dysesthesias and decreased sensation in his feet suggesting an underlying idiopathic polyneuropathy involving predominantly sensory fibers. This will affect his balance (sensory ataxia ). I note his sense of diplopia with far away gaze. He does not have this looking close and I see no dysconjugate movements of his eyes, ptosis, or any other small muscle weakness. He has no swallowing issues or choking. Therefore, although I cannot entirely exclude this, I doubt a neuromuscular junction disorder such as myasthenia gravis. Recommendations: 1. it is reasonable to check a CK, aldolase, sed rate, Lyme antibody, and acetylcholine receptor antibody titer panel. Some of this could be done as an outpatient as well. 2. An EMG and nerve conduction study as an outpatient could be done to assess extent of polyneuropathy and any underlying myopathy, but this is certainly not something that needs to be emergently done given his current neurologic presentation. 3. physical therapy for gait training and limb strengthening. 4. Dr. Naqvi can follow this patient as an outpatient, if desired. Otherwise, I have no further neurologic recommendations to make while he is in the hospital. Overall, I spent a total of 65 minutes with this case including review of records, direct evaluation the patient at bedside, and discussing the case with the patient at bedside, RN at bedside, and Dr. Brown, including differential diagnosis and treatment options. Admission and Anticipated Discharge Date Admission Date: June 11, 2020 Subjective Patient has no complaint of pain or headache. He does get a little bit of low back pain chronically when he is up moving around but it does not hurt when he sitting. He has no cervical spine pain, muscle pain or achiness, or chest pain. He does get a little bit of lightheadedness with standing but does not get vertigo. He feels that his strength is reasonable and although he tires easily is individual muscles Work well. His legs are worse than his arms. He has some numbness and tingling in his feet, which has been going on for about 2 years now. He has no incontinence of urine. His balance has been "off" and he is cautious. He has a sense of double vision looking far away which is not present looking close. This has been quite chronic and continuous. He has been walking more in the hospital and can walk on his own without an assistive device although he has someone next to him for support. Patient currently has hypoxic and hypercarbic respiratory failure (acute on chronic ). He is making improvements. There is a history of coronary artery disease and an aortic valve replacement, and currently he has acute on chronic diastolic congestive heart failure. More recently he has had acute on chronic renal insufficiency. He has hypertension some mild type 2 diabetes. Laboratory studies recently showed significant anemia and elevated BUN and creatinine. Recent chest x-ray showed increasing left pleural effusion and a stable right pleural effusion and pulmonary edema. Echocardiogram showed left ventricular hypertrophy. CT scan of the head was unremarkable June 11. Results & Data ([facility]) Vital Signs (Past 12 Hours) Vital Signs Temp Pulse Pulse Pulse Pulse Resp BP 06/19/20 07:02 36.6 C 64 18 141/58 H 06/19/20 03:57 55 L 15 06/19/20 00:25 45 L 23 06/18/20 23:38 46 L 46 L 85/34 L 06/18/20 23:31 36.6 C 48 L 14 Pulse Ox 06/19/20 07:02 96 06/19/20 03:57 93 06/19/20 00:25 97 06/18/20 23:38 06/18/20 23:31 92 Exam (Neuro) Physical Exam: The patient is awake, alert, and attentive. Speech is normal without any aphasia or dysarthria. he can name objects, repeat phrases, and has normal spontaneous speech. Mentation and thought processes are intact, with orientation to person, place and time, and normal fund of knowledge. Attention and concentration are normal. Mood and affect are normal and appropriate. General appearance and grooming are normal. Short and long-term memory are intact to conversation. Pupils are 4 mm bilaterally and reactive to light. Extraocular eye muscles are intact without nystagmus. Visual acuity and visual anderson seem normal grossly to confrontation. There is no ptosis. There are no deficits to sensation in the face in all 3 distributions of the fifth cranial nerve bilaterally. Facial strength and symmetry was normal bilaterally. Hearing seems normal to whisper and finger rub bilaterally. Palate moves well without asymmetry. There is normal sternocleidomastoid and trapezius (shoulder shrug) strength bilaterally. Tongue is midline with good strength bilaterally. Neck has a full range of motion without discomfort. Gait is narrow based, with good arm swing, turns, and stance , although he is cautious. With outstretched arms there is no drift. There are no resting or postural tremors. he has a mild action tremor bilaterally.There is no ataxia with finger to nose testing. There is good facility in the hands. No other abnormal involuntary movements are noted. Motor strength is 5/5 diffusely in the arms bilaterally including deltoids, biceps, triceps, brachioradialis, wrist flexors and extensors, library clerk, and intrinsic hand muscles. Motor strength is 5/5 diffusely in the legs bilaterally including hip flexors, quadriceps, hamstrings, gastrocnemius, tibialis anterior, tibialis posterior, and Peroneii muscles. Toe extensors are normal and there is good bulk in the extensor digitorum brevis muscles bilaterally. The limbs have good tone without rigidity or spasticity. There is no atrophy noted in the muscles. Muscle bulk is normal, there is no tenderness to palpation, no myotonia to percussion, and no fasciculations seen. Sensory examination reveals some decreased sensation to pin and touch in a stocking distribution in feet to the ankles bilaterally. Reflexes are 2/4 in the biceps, triceps, brachioradialis, and quadriceps tendons bilaterally. Achilles tendon reflexes are absent. There is no clonus bilaterally. Toes are downgoing with plantar stimulation bilaterally. PG Care Time/CCT Total # of Minutes Spent Total Time Spent with Patient: Total time spent is greater than 50% in coordination of care (as documented) at patient's floor/unit and/or counseling patient: Coding Level of Care Code 08061 Subseq Hosp Care Lvl 3 Diagnoses Muscle weakness (generalized) M62.81 Easy fatigability R53.83 Idiopathic polyneuropathy G60.9 Diplopia H53.2 Acute on chronic respiratory failure with hypoxia and hypercapnia J96.21; J96.22 Acute on chronic heart failure with preserved ejection fraction I50.33 Acute renal failure N17.9 Acute renal failure type: unspecified Time Spent (min) 65 Comment Add [id number] to this [id number] (1) Acute renal failure Acute renal failure type: unspecified Qualified Code(s): N17.9 - Acute kidney failure, unspecified
[2020-06-19] MEDS: ATORVASTATIN 40 MG TAB PO SCH (10:09)
[2020-06-19] MEDS: ESCITALOPRAM OXALATE 20 MG TAB PO SCH (10:09)
[2020-06-19] MEDS: FERROUS SULFATE 325 MG TAB PO SCH (10:09)
[2020-06-19] MEDS: MAGNESIUM OXIDE 400 MG TAB PO SCH (10:10)
[2020-06-19] MEDS: MULTIVITAMIN TAB PO SCH (10:10)
[2020-06-19] MEDS ORDERED: WARFARIN SOD 5 MG TAB PO ONE (16:00)
[2020-06-19] MEDS: WARFARIN SOD 5 MG TAB PO SCH (16:13)
--- NOTE | 2020-06-19 17:00 | Cardiology Progress Note ---
Date of Service June 19, 2020 Assessment & Plan (1) Acute on chronic heart failure with preserved ejection fraction: 2. Hypoxemic and hypercarbic respiratory failure 3. Prior severe aortic stenosis post TAVR 4. Acute on chronic renal insufficiency 5. Anemia 6. 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 Paroxysmal SVT 8. Restrictive lung disease 9. Type 2 diabetes Respiratory status improved from admission. Able to walk halls with assistance. Urine output reduced, recorded I's and O's negative for 750 yesterday Mild persistent congestion on exam BUN/SCr trending up today. Continue strict I's and O's, daily weights -- Repeat proBNP in AM -- Diuretics on hold today -- Hold ARB -- Continue beta-criss Follow-up BUN, serum creatinine tomorrow. Some concern for cardiorenal syndrome. Will consider need for additional IV diuretics. Admission and Anticipated Discharge Date Admission Date: June 11, 2020 Subjective Slept well overnight. Tolerating BiPAP. Breathing stable this morning. Denies any chest pain. No other new concerns per Review of Systems Review of Systems: All systems reviewed & are unremarkable except as noted in HPI & below Physical Exam Physical Exam: General: Comfortable, no acute distress Eyes: Sclerae anicteric, extraocular movements intact HENT: Oropharynx clear mucous membranes moist Lungs: Decreased breath sounds at the bases otherwise clear Cardiac: Regularly irregular with likely frequent PVCs, 2 out of 6 systolic ejection murmur with crisp bioprosthetic closure Vascular: 2+ radial Abdomen: Soft, nontender, nondistended, positive bowel sounds. Extremities: Well perfused, 1-2+ lower extremity edema to mid jeffers Psych: Alert orient x3, normal affect and mood Results & Data ([facility]) Vital Signs (Past 12 Hours) Vital Signs Temp Pulse Pulse Resp BP Pulse Ox 06/19/20 15:26 97.9 F 57 L 18 102/40 L 99 06/19/20 07:02 97.9 F 64 18 141/58 H 96 PG Care Time/CCT Total # of Minutes Spent Total Time Spent with Patient: Total time spent is greater than 50% in coordination of care (as documented) at patient's floor/unit and/or counseling patient: Coding Level of Care Code 61344 Subseq Hosp Care Lvl 3 Diagnoses Acute on chronic heart failure with preserved ejection fraction I50.33
--- NOTE | 2020-06-19 20:48 | Ultrasound Report ---
BILATERAL LOWER EXTREMITY VENOUS DOPPLER CLINICAL HISTORY: b/l LE edema; eval for DVT COMPARISON STUDY: Bilateral lower extremity venous Doppler ultrasound October 17, 2015. TECHNIQUE: Sonography of the deep venous system of the bilateral lower extremities was performed. Co mpression and augmentation were evaluated. FINDINGS: The bilateral common femoral, superficial femoral and popliteal veins were compressible. A ugmentation was normal. Flow was shown within the deep calf vessels. IMPRESSION: No evidence of deep venous thrombus within the bilateral lower extremities. ACT 112: Negative or not required by law. Electronically signed by: Anjum Chaudhry M.D. 06/19/2020 8:46 PM
--- NOTE | 2020-06-19 21:21 | Hospitalist Progress Note ---
Date of Service June 19, 2020 Assessment & Plan (1) Acute kidney injury: 2nd to over-diuresis. holding ARB. holding diuretics today. repeat BMP am. (2) Muscle weakness (generalized): spoke with neurology. check CPK am. awaiting aldolase. recent TSH, B12, etc wnl. (3) Acute on chronic respiratory failure with hypoxia and hypercapnia: acute component resolved. was 2nd to decompensated CHF. NC O2 requirement back down to baseline (usually 5 L/min). chronic resp failure 2nd to COPD. (4) Acute on chronic heart failure with preserved ejection fraction: now with RAND in setting of attempts at diuresis. hold diuretics. cont BB. repeat BMP am. check dopplers of legs -- r/o DVT as cause of refractory LE edema. (5) Acute metabolic encephalopathy: 2nd to hypercarbia - resolved (6) COPD (chronic obstructive pulmonary disease): without exacerbation appreciate pulmonary consultation cont inhalers and nebs prn oxygen dependent (7) S/P TAVR (transcatheter aortic valve replacement): [facility] 04/2020 echo this admission with good valve function & gradient EF preserved (8) CAD (coronary artery disease): by report no significant disease on cath done at [facility] in April (9) Gall stones: no symptoms or signs of such although had been receiving IV zosyn for ?cholecystitis? stopped antibiotics no recurrent GI symptoms cont to follow OFF antibiotics (10) Prediabetes: novolog ac/hs DM diet controlled (11) Hypertension: stop ARB cont BB (12) Chronic anticoagulation: started at [facility] when left atrial appendage thrombus was discovered daily INR coumadin 5mg daily (13) Thrombus of atrial appendage: coumadin 5mg daily INR daily (14) DVT prophylaxis: coumadin add heparin until INR is >2 cont PT/OT - but cleared for home left message for 06/18 and 06/19 Admission and Anticipated Discharge Date Admission Date: June 11, 2020 Subjective no new complaints feels breathing is at baseline disappointed no discharge today but he voiced understanding and said "I just want to get well" eating well - NO abdominal pain, NO nausea/emesis Review of Systems Constitutional: no fever and no chills Respiratory: + dyspnea on exertion (at baseline) Cardiovascular: + edema; no chest pain and no orthopnea Gastrointestinal: no abdominal pain Physical Exam Constitutional: well developed and well nourished; no acute distress and no altered mental status ENMT: external ear and nose normal, oropharynx normal Respiratory: normal respiratory effort, lungs clear to auscultation Auscultation: + diminished lung sounds (bases); no crackles and no wheezes Cardiovascular: Rate/Rhythm: regular rate and regular rhythm Heart Sounds: normal S1, normal S2 and + murmur (1-2/6 RUSB systolic) Vessels: posterior tibial pulses present and dorsalis pedis pulses present; no JVD Extremities: + edema (2+ b/l ) Gastrointestinal (Abdomen): normal bowel sounds, soft, nontender, no hepatosplenomegaly Psychiatric: A+Ox3, euthymic affect Results & Data Results & Data ([facility]) Vital Signs (Past 12 Hours) Vital Signs Temp Pulse Resp BP Pulse Ox 06/19/20 20:15 81 16 123/46 L 97 06/19/20 15:26 36.6 C 57 L 18 102/40 L 99 Laboratory Results Laboratory Results - last 24 hr 06/19/20 06/19/20 06/19/20 06:08 06:08 08:12 PT 13.6 H INR 1.3 H Sodium 138 Potassium 4.2 Chloride 94 L Carbon Dioxide 42 H* Anion Gap 2.0 L BUN 54 H Creatinine 1.95 H D Est Cr Clr Drug Dosing 36.4 Est GFR ( Amer) 37.6 Est GFR (Non-Af Amer) 32.5 BUN/Creatinine Ratio 27.8 H Glucose 90 POC Glucose 106 H Calcium 9.2 06/19/20 06/19/20 06/19/20 12:07 17:03 20:50 PT INR Sodium Potassium Chloride Carbon Dioxide Anion Gap BUN Creatinine Est Cr Clr Drug Dosing Est GFR ( Amer) Est GFR (Non-Af Amer) BUN/Creatinine Ratio Glucose POC Glucose 125 H 123 H 116 H Calcium PG Care Time/CCT Total # of Minutes Spent Total Time Spent with Patient: Total time spent is greater than 50% in coordination of care (as documented) at patient's floor/unit and/or counseling patient: Coding Level of Care Code 52134 Subseq Hosp Care Lvl 2 Diagnoses Acute kidney injury N17.9 Muscle weakness (generalized) M62.81 Acute on chronic respiratory failure with hypoxia and hypercapnia J96.21; J96.22 Acute on chronic heart failure with preserved ejection fraction I50.33 Acute metabolic encephalopathy G93.41 COPD (chronic obstructive pulmonary disease) J44.9 S/P TAVR (transcatheter aortic valve replacement) Z95.2 CAD (coronary artery disease) I25.10 Gall stones K80.20 Prediabetes R73.03 Hypertension I10 Hypertension type: essential hypertension Chronic anticoagulation Z79.01 Thrombus of atrial appendage I51.3 DVT prophylaxis Z29.9 (1) Hypertension Hypertension type: essential hypertension Qualified Code(s): I10 - Essential (primary) hypertension
[2020-06-20] MEDS: ATORVASTATIN 40 MG TAB PO SCH (07:40)
[2020-06-20] MEDS: MAGNESIUM OXIDE 400 MG TAB PO SCH (07:40)
[2020-06-20] MEDS: FERROUS SULFATE 325 MG TAB PO SCH ×2 (07:40→21:15)
[2020-06-20] MEDS: MULTIVITAMIN TAB PO SCH (07:40)
[2020-06-20] MEDS: METOPROLOL TARTRATE 25 MG TAB PO SCH ×2 (07:40→20:45)
[2020-06-20] MEDS: BUMETANIDE 1 MG TAB PO SCH (07:41)
[2020-06-20] MEDS: ESCITALOPRAM OXALATE 20 MG TAB PO SCH (07:41)
[2020-06-20] MEDS: DOCUSATE SODIUM 100 MG CAP PO SCH ×2 (07:41→20:45)
[2020-06-20] MEDS: PANTOprazole 40 MG TAB PO SCH ×2 (07:41→20:46)
[2020-06-20] MEDS: POTASSIUM CHLORIDE 20 MEQ TABCR PO SCH ×2 (07:41→20:46)
[2020-06-20] MEDS: FLUTICASONE/VILANTEROL 100/25MCG 14 PUFFS/INHALER INH SCH (07:42)
[2020-06-20] MEDS: SODIUM CHLORIDE 0.65% NA SOLN 45 ML (OCEAN) NAE SCH ×2 (07:42→20:46)
[2020-06-20] MEDS: SPIRONOLACTONE 25 MG TAB PO SCH (07:43)
[2020-06-20 08:10] LABS: INR 1.4 (0.9-1.1); Prothrombin Time 14.2 Seconds (9.0-12.0)
[2020-06-20 08:38] LABS: BUN Creatinine Ratio 32.9 (10-20); Calcium 9.6 mg/dl (8.5-10.1); Creatinine Clr Calc Pharmacy 39.4 ml/min; Est GFR (African American) 41.4; Est GFR (Non-African American) 35.8; Potassium 4.2 mmol/L (3.5-5.1)
[2020-06-20] MEDS: INSULIN ASPART 100 UNITS/ML 3 ML PEN SC SCH ×4 (08:50→20:48)
[2020-06-20] MEDS ORDERED: HEPARIN SOD 5,000 UNIT/0.5 ML VIAL SQ SCH (09:00)
[2020-06-20] MEDS ORDERED: Heparin IV Standard *NO* Bolus IV SCH (14:44)
[2020-06-20 15:48] LABS: Basophils # (auto) 0.04 K/uL (0-0.2); Basophils % (auto) 0.7 %; Eosinophils # (auto) 0.27 K/uL (0-0.5); Eosinophils % (auto) 4.6 %; Hematocrit (blood only) 27.6 % (42-52); Hemoglobin 8.3 g/dL (14.0-18.0); Lymphocytes # (auto) 0.87 K/uL (1.2-3.4); Lymphocytes % (auto) 14.8 %; Mean Corpuscular Hemoglobin 28.4 pg (25-34); Mean Corpuscular Volume 94.5 fL (80-100); Mean Platelet Volume 10.6 fL (7.4-10.4); Monocytes % (auto) 11.9 %; Neutrophils # (auto) 3.98 K/uL (1.4-6.5); Platelet Count 255 K/uL (130-400); RDW Standard Deviation 51.6 fL (36.4-46.3); Red Blood Count 2.92 M/uL (4.7-6.1); White Blood Count 5.86 K/uL (4.8-10.8)
[2020-06-20 15:50] LABS: Mean Corpuscular Hgb Conc 30.1 g/dL (32-36)
[2020-06-20] MEDS ORDERED: BUMETANIDE 2 MG in SYRINGE 0 ML IV ONE (16:00)
[2020-06-20] MEDS: WARFARIN SOD 7.5 MG TAB PO SCH (16:11)
[2020-06-20 16:26] LABS: Partial Thromboplastin Ratio 1.2; Partial Thromboplastin Time 33.7 Seconds (21.0-31.0)
[2020-06-20] MEDS: HEPARIN SODIUM/DEXTROSE 25,000 UNITS/500 ML BAG IV SCH (16:37)
--- NOTE | 2020-06-20 21:07 | Hospitalist Progress Note ---
Date of Service June 20, 2020 Assessment & Plan (1) Acute on chronic heart failure with preserved ejection fraction: RAND improving thus resume diuretics. will change PO bumex 2mg to IV starting today. cont aldactone. cont BB. repeat BMP am. (2) Thrombus of atrial appendage: coumadin 5mg daily INRs have been stubbornly low due to high risk of stroke will use heparin bridge while awaiting INR to reach 2+ (3) Acute kidney injury: 2nd to over-diuresis. improving. BMP am. cont to hold ARB. resume diuretics. (4) Muscle weakness (generalized): CPK wnl. awaiting aldolase. recent TSH, B12, etc wnl. (5) Acute on chronic respiratory failure with hypoxia and hypercapnia: acute component resolved. was 2nd to decompensated CHF. NC O2 requirement back down to baseline (usually 5 L/min). chronic resp failure 2nd to COPD. (6) Acute metabolic encephalopathy: 2nd to hypercarbia - resolved (7) COPD (chronic obstructive pulmonary disease): without exacerbation appreciate pulmonary consultation cont inhalers and nebs prn oxygen dependent (8) S/P TAVR (transcatheter aortic valve replacement): [facility] 04/2020 echo this admission with good valve function & gradient EF preserved (9) CAD (coronary artery disease): by report no significant disease on cath [place] [facility] [place] (10) Gall stones: no symptoms or signs of such although had been receiving IV zosyn for ?cholecystitis? stopped antibiotics no recurrent GI symptoms since coming off abx doubt presence of cholecystitis. cont to follow OFF antibiotics (11) Prediabetes: novolog ac/hs DM diet controlled (12) Hypertension: stop ARB cont BB (13) Chronic anticoagulation: started [place] [facility] when left atrial appendage thrombus was discovered daily INR coumadin 5mg daily heparin bridge (14) DVT prophylaxis: coumadin add heparin until INR is >2 cont PT/OT - but cleared for home left message for 06/18 and 06/19 Admission and Anticipated Discharge Date Admission Date: June 11, 2020 Subjective I observed patient walking from Bathroom back to chair and he did well independently without dyspnea he still has severe edema o2 requirements are at baseline no new complaints eating well drinking ok questions answered Review of Systems Constitutional: no fever Respiratory: + dyspnea on exertion; no cough Cardiovascular: no chest pain and no dyspnea at rest Physical Exam Constitutional: well developed and well nourished; no acute distress and no altered mental status ENMT: external ear and nose normal, oropharynx normal Respiratory: normal respiratory effort, lungs clear to auscultation Auscultation: + diminished lung sounds (bases) and + crackles (Bases); no wheezes Cardiovascular: Rate/Rhythm: regular rate and regular rhythm Heart Sounds: normal S1, normal S2 and + murmur (1-2/6 RUSB systolic) Vessels: + JVD, posterior tibial pulses present and dorsalis pedis pulses present Extremities: + edema (Worse - nearly 3+ b/l today) Gastrointestinal (Abdomen): normal bowel sounds, soft, nontender, no hepatosplenomegaly Psychiatric: A+Ox3, euthymic affect Results & Data Results & Data ([facility]) Vital Signs (Past 12 Hours) Vital Signs Temp Pulse Pulse Pulse Resp BP Pulse Ox 06/20/20 07:02 36.6 C 68 17 127/89 95 06/19/20 23:39 57 L 18 93 06/19/20 23:22 36.6 C 60 14 123/62 95 Intake and Output 06/20/20 06/20/20 06/20/20 06:59 14:59 22:59 Intake Total 515 / 515 Output Total 775 / 1901 595 / 1745 1150 / 1745 Balance -775 / -1421 -80 / -1230 -1150 / -1230 Intake: Oral 515 / 515 Output: Urine 775 / 1900 595 / 1745 1150 / 1745 Other: # Unmeasured Voids 1 Weight 89.9 kg Laboratory Results Laboratory Results - last 24 hr 06/20/20 06/20/20 06/20/20 07:46 07:46 08:04 WBC RBC Hgb Hct MCV MCH MCHC RDW Std Deviation RDW Coeff of [place] Plt Count MPV Immature Gran % (Auto) Neut % (Auto) Lymph % (Auto) [place] % (Auto) Eos % (Auto) Baso % (Auto) Neut # (Auto) Lymph # (Auto) [place] # (Auto) Eos # (Auto) Baso # (Auto) Immature Gran # (Auto) PT 14.2 H INR 1.4 H APTT PTT Ratio Sodium 138 Potassium 4.2 Chloride 96 L Carbon Dioxide 37 H Anion Gap 5.0 BUN 59 H Creatinine 1.80 H Est Cr Clr Drug Dosing 39.4 Est GFR ( Amer) 41.4 Est GFR (Non-Af Amer) 35.8 BUN/Creatinine Ratio 32.9 H Glucose 91 POC Glucose 106 H Calcium 9.6 Total Creatine Kinase 59 06/20/20 06/20/20 06/20/20 12:10 15:27 16:06 WBC 5.86 RBC 2.92 L Hgb 8.3 L Hct 27.6 L MCV 94.5 MCH 28.4 MCHC 30.1 L RDW Std Deviation 51.6 H RDW Coeff of [place] 15.0 H Plt Count 255 MPV 10.6 H Immature Gran % (Auto) 0.0 Neut % (Auto) 68.0 Lymph % (Auto) 14.8 [place] % (Auto) 11.9 Eos % (Auto) 4.6 Baso % (Auto) 0.7 Neut # (Auto) 3.98 Lymph # (Auto) 0.87 L [place] # (Auto) 0.70 H Eos # (Auto) 0.27 Baso # (Auto) 0.04 Immature Gran # (Auto) 0.00 PT INR APTT 33.7 H PTT Ratio 1.2 Sodium Potassium Chloride Carbon Dioxide Anion Gap BUN Creatinine Est Cr Clr Drug Dosing Est GFR ( Amer) Est GFR (Non-Af Amer) BUN/Creatinine Ratio Glucose POC Glucose 138 H Calcium Total Creatine Kinase 06/20/20 06/20/20 17:07 20:31 WBC RBC Hgb Hct MCV MCH MCHC RDW Std Deviation RDW Coeff of [place] Plt Count MPV Immature Gran % (Auto) Neut % (Auto) Lymph % (Auto) [place] % (Auto) Eos % (Auto) Baso % (Auto) Neut # (Auto) Lymph # (Auto) [place] # (Auto) Eos # (Auto) Baso # (Auto) Immature Gran # (Auto) PT INR APTT PTT Ratio Sodium Potassium Chloride Carbon Dioxide Anion Gap BUN Creatinine Est Cr Clr Drug Dosing Est GFR ( Amer) Est GFR (Non-Af Amer) BUN/Creatinine Ratio Glucose POC Glucose 109 H 137 H Calcium Total Creatine Kinase PG Care Time/CCT Total # of Minutes Spent Total Time Spent with Patient: Total time spent is greater than 50% in coordination of care (as documented) at patient's floor/unit and/or counseling patient: Coding Level of Care Code 83411 Subseq Hosp Care Lvl 2 Diagnoses Acute on chronic heart failure with preserved ejection fraction I50.33 Thrombus of atrial appendage I51.3 Acute kidney injury N17.9 Muscle weakness (generalized) M62.81 Acute on chronic respiratory failure with hypoxia and hypercapnia J96.21; J96.22 Acute metabolic encephalopathy G93.41 COPD (chronic obstructive pulmonary disease) J44.9 S/P TAVR (transcatheter aortic valve replacement) Z95.2 CAD (coronary artery disease) I25.10 Gall stones K80.20 Prediabetes R73.03 Hypertension I10 Hypertension type: essential hypertension Chronic anticoagulation Z79.01 DVT prophylaxis Z29.9 (1) Hypertension Hypertension type: essential hypertension Qualified Code(s): I10 - Essential (primary) hypertension
[2020-06-20 23:36] LABS: Partial Thromboplastin Ratio 2.5
[2020-06-20 23:47] LABS: Partial Thromboplastin Time 70.1 Seconds (21.0-31.0)
[2020-06-21] MEDS: HEPARIN SODIUM/DEXTROSE 25,000 UNITS/500 ML BAG IV SCH ×2 (00:17→11:13)
[2020-06-21 06:26] LABS: Hematocrit (blood only) 26.9 % (42-52); Hemoglobin 8.1 g/dL (14.0-18.0); Mean Corpuscular Hgb Conc 30.1 g/dL (32-36); Mean Corpuscular Volume 93.1 fL (80-100); Mean Platelet Volume 10.7 fL (7.4-10.4); Platelet Count 251 K/uL (130-400); RDW Standard Deviation 51.3 fL (36.4-46.3); Red Blood Count 2.89 M/uL (4.7-6.1); White Blood Count 5.62 K/uL (4.8-10.8)
[2020-06-21 06:57] LABS: INR 1.8 (0.9-1.1); Partial Thromboplastin Ratio 2.9; Prothrombin Time 18.8 Seconds (9.0-12.0)
[2020-06-21 07:01] LABS: BUN Creatinine Ratio 36.4 (10-20); Calcium 9.3 mg/dl (8.5-10.1); Creatinine Clr Calc Pharmacy 38.7 ml/min; Est GFR (African American) 40.4; Est GFR (Non-African American) 34.8; Potassium 4.1 mmol/L (3.5-5.1)
[2020-06-21 07:02] LABS: Partial Thromboplastin Time 80.6 Seconds (21.0-31.0)
[2020-06-21] MEDS: INSULIN ASPART 100 UNITS/ML 3 ML PEN SC SCH ×4 (09:16→20:55)
[2020-06-21] MEDS: FERROUS SULFATE 325 MG TAB PO SCH ×2 (09:18→18:17)
[2020-06-21] MEDS: FLUTICASONE/VILANTEROL 100/25MCG 14 PUFFS/INHALER INH SCH (09:19)
[2020-06-21] MEDS: SPIRONOLACTONE 25 MG TAB PO SCH (09:19)
[2020-06-21] MEDS: POTASSIUM CHLORIDE 20 MEQ TABCR PO SCH ×2 (09:20→20:53)
[2020-06-21] MEDS: DOCUSATE SODIUM 100 MG CAP PO SCH ×2 (09:20→20:53)
[2020-06-21] MEDS: ATORVASTATIN 40 MG TAB PO SCH (09:21)
[2020-06-21] MEDS: ESCITALOPRAM OXALATE 20 MG TAB PO SCH (09:21)
[2020-06-21] MEDS: METOPROLOL TARTRATE 25 MG TAB PO SCH ×2 (09:22→20:53)
[2020-06-21] MEDS: MAGNESIUM OXIDE 400 MG TAB PO SCH (09:23)
[2020-06-21] MEDS: MULTIVITAMIN TAB PO SCH (09:23)
[2020-06-21] MEDS: PANTOprazole 40 MG TAB PO SCH ×2 (09:24→20:51)
[2020-06-21] MEDS: SODIUM CHLORIDE 0.65% NA SOLN 45 ML (OCEAN) NAE SCH ×2 (09:24→21:21)
[2020-06-21] MEDS ORDERED: BUMETANIDE 2 MG in SYRINGE 0 ML IV ONE (12:30)
[2020-06-21 13:31] LABS: Partial Thromboplastin Ratio 2.1
[2020-06-21 13:46] LABS: Partial Thromboplastin Time 58.4 Seconds (21.0-31.0)
--- NOTE | 2020-06-21 14:16 | XRay Report ---
XR chest 2V PA/lateral CLINICAL HISTORY: CHF, effusions dyspnea COMPARISON STUDY: 06/17/2020 FINDINGS: Mild stable cardiomegaly. Bilateral pleural effusions unchanged. Slight improvement in pulmonary vasculature. IMPRESSION: Congestive heart failure/pulmonary edema mildly improved from the prior exam. ACT 112: Negative or not required by law. The above report was generated using voice recognition software. It may contain grammatical, syntax or spelling errors. Electronically signed by: Pineda Fontaine M.D. 06/21/2020 2:15 PM
[2020-06-21] MEDS ORDERED: Nursing to Pharmacy Communication SCH (17:00)
[2020-06-21] MEDS ORDERED: WARFARIN SOD 7.5 MG TAB PO ONE (18:30)
--- NOTE | 2020-06-21 22:10 | Hospitalist Progress Note ---
Date of Service June 21, 2020 Assessment & Plan (1) Acute on chronic heart failure with preserved ejection fraction: still decompensated. bumex 2mg IV x 1. repeat cxr today. r/o worsening effusions that could potentially need tapped. cont aldactone. cont BB. repeat BMP am. (2) Thrombus of atrial appendage: coumadin 7.5mg daily INRs subtherapeutic due to high risk of stroke will use heparin bridge while awaiting INR to reach 2+ INR in am (3) Acute kidney injury: 2nd to over-diuresis. slowly improving. BMP am. cont to hold ARB. resumed diuretics due to pulm symptoms and volume overload. (4) Muscle weakness (generalized): CPK wnl. awaiting aldolase. recent TSH, B12, etc wnl. appreciate neuro recs. (5) Acute on chronic respiratory failure with hypoxia and hypercapnia: acute component resolved - NC o2 requirement at baseline of 5 L NC. was 2nd to decompensated CHF. chronic resp failure 2nd to COPD. (6) Acute metabolic encephalopathy: 2nd to hypercarbia - resolved (7) COPD (chronic obstructive pulmonary disease): without exacerbation appreciate pulmonary consultation cont inhalers and nebs prn oxygen dependent (8) S/P TAVR (transcatheter aortic valve replacement): [facility] 04/2020 echo this admission with good valve function & gradient EF preserved (9) CAD (coronary artery disease): I do not have the cath report but either nonobstructive or clean coronaries. (10) Gall stones: no symptoms or signs of such although had been receiving IV zosyn for ?cholecystitis? stopped antibiotics no recurrent GI symptoms since coming off abx doubt presence of cholecystitis. cont to follow OFF antibiotics (11) Prediabetes: novolog ac/hs DM diet controlled (12) Hypertension: cont BB (13) Chronic anticoagulation: started at [facility] when left atrial appendage thrombus was discovered daily INR coumadin 7.5mg daily heparin bridge (14) DVT prophylaxis: coumadin heparin drip until INR is >2 cont PT/OT - but cleared for home left message for 06/18 and 06/19 and 06/21 Admission and Anticipated Discharge Date Admission Date: June 11, 2020 Subjective patient states breathing is worse this am mild orthopnea LE edema unchanged minimal cough did work with PT - ambulated around entire floor - had to stop a couple of times due to [place] good appetite no chest pain Review of Systems Constitutional: no fever Respiratory: no hemoptysis and no sputum production Cardiovascular: no chest pain Gastrointestinal: no abdominal pain, no nausea, no vomiting, no constipation and no diarrhea/loose stools Physical Exam Constitutional: well developed and well nourished; no acute distress and no altered mental status ENMT: external ear and nose normal, oropharynx normal Respiratory: Auscultation: + diminished lung sounds (bases) and + crackles (Bases); no wheezes Cardiovascular: Rate/Rhythm: regular rate and regular rhythm Heart Sounds: normal S1, normal S2 and + murmur (1-2/6 RUSB systolic) Vessels: + JVD, posterior tibial pulses present and dorsalis pedis pulses present Extremities: + edema (3+ b/l) Gastrointestinal (Abdomen): normal bowel sounds, soft, nontender, no hepatosplenomegaly Psychiatric: A+Ox3, euthymic affect Results & Data Results & Data ([facility]) Vital Signs (Past 12 Hours) Vital Signs Temp Pulse Pulse Resp BP Pulse Ox 06/21/20 20:58 55 L 110/54 L 91 06/21/20 15:36 36.4 C L 70 16 118/59 L 91 06/21/20 11:10 58 L 18 98 Laboratory Results Laboratory Results - last 24 hr 06/20/20 06/21/20 06/21/20 22:37 06:15 06:15 WBC 5.62 RBC 2.89 L Hgb 8.1 L Hct 26.9 L MCV 93.1 MCH 28.0 MCHC 30.1 L RDW Std Deviation 51.3 H RDW Coeff of Vesta 15.0 H Plt Count 251 MPV 10.7 H PT 18.8 H INR 1.8 H APTT 70.1 H* 80.6 H* PTT Ratio 2.5 2.9 Sodium Potassium Chloride Carbon Dioxide Anion Gap BUN Creatinine Est Cr Clr Drug Dosing Est GFR ( Amer) Est GFR (Non-Af Amer) BUN/Creatinine Ratio Glucose POC Glucose Calcium 06/21/20 06/21/20 06/21/20 06:15 08:06 12:15 WBC RBC Hgb Hct MCV MCH MCHC RDW Std Deviation RDW Coeff of Vesta Plt Count MPV PT INR APTT PTT Ratio Sodium 138 Potassium 4.1 Chloride 96 L Carbon Dioxide 39 H Anion Gap 3.0 BUN 67 H Creatinine 1.84 H Est Cr Clr Drug Dosing 38.7 Est GFR ( Amer) 40.4 Est GFR (Non-Af Amer) 34.8 BUN/Creatinine Ratio 36.4 H Glucose 96 POC Glucose 110 H 89 Calcium 9.3 06/21/20 06/21/20 06/21/20 12:54 17:21 20:43 WBC RBC Hgb Hct MCV MCH MCHC RDW Std Deviation RDW Coeff of Vesta Plt Count MPV PT INR APTT 58.4 H* PTT Ratio 2.1 Sodium Potassium Chloride Carbon Dioxide Anion Gap BUN Creatinine Est Cr Clr Drug Dosing Est GFR ( Amer) Est GFR (Non-Af Amer) BUN/Creatinine Ratio Glucose POC Glucose 112 H 103 H Calcium PG Care Time/CCT Total # of Minutes Spent Total Time Spent with Patient: Total time spent is greater than 50% in coordination of care (as documented) at patient's floor/unit and/or counseling patient: Coding Level of Care Code 88129 Subseq Hosp Care Lvl 2 Diagnoses Acute on chronic heart failure with preserved ejection fraction I50.33 Thrombus of atrial appendage I51.3 Acute kidney injury N17.9 Muscle weakness (generalized) M62.81 Acute on chronic respiratory failure with hypoxia and hypercapnia J96.21; J96 .22 Acute metabolic encephalopathy G93.41 COPD (chronic obstructive pulmonary disease) J44.9 S/P TAVR (transcatheter aortic valve replacement) Z95.2 CAD (coronary artery disease) I25.10 Gall stones K80.20 Prediabetes R73.03 Hypertension I10 Hypertension type: essential hypertension Chronic anticoagulation Z79.01 DVT prophylaxis Z29.9 (1) Hypertension Hypertension type: essential hypertension Qualified Code(s): I10 - Essential (primary) hypertension
[2020-06-22 06:37] LABS: Hematocrit (blood only) 28.3 % (42-52); Hemoglobin 8.4 g/dL (14.0-18.0); Mean Corpuscular Hemoglobin 28.4 pg (25-34); Mean Corpuscular Hgb Conc 29.7 g/dL (32-36); Mean Corpuscular Volume 95.6 fL (80-100); Mean Platelet Volume 11.7 fL (7.4-10.4); Platelet Count 265 K/uL (130-400); RDW Coefficient of Variation 15.2 % (11.5-14.5); RDW Standard Deviation 53.1 fL (36.4-46.3); Red Blood Count 2.96 M/uL (4.7-6.1); White Blood Count 6.11 K/uL (4.8-10.8)
[2020-06-22 06:59] LABS: INR 2.2 (0.9-1.1); Prothrombin Time 21.8 Seconds (9.0-12.0)
[2020-06-22 07:00] LABS: Partial Thromboplastin Time 55.8 Seconds (21.0-31.0)
[2020-06-22 07:03] LABS: BUN Creatinine Ratio 39.4 (10-20); Calcium 9.5 mg/dl (8.5-10.1); Creatinine Clr Calc Pharmacy 43.2 ml/min; Est GFR (Non-African American) 39.7; Potassium 4.1 mmol/L (3.5-5.1)
[2020-06-22] MEDS: HEPARIN SODIUM/DEXTROSE 25,000 UNITS/500 ML BAG IV SCH (07:15)
[2020-06-22] MEDS: FERROUS SULFATE 325 MG TAB PO SCH ×2 (09:22→17:50)
[2020-06-22] MEDS: FLUTICASONE/VILANTEROL 100/25MCG 14 PUFFS/INHALER INH SCH (09:23)
[2020-06-22] MEDS: SPIRONOLACTONE 25 MG TAB PO SCH (09:23)
[2020-06-22] MEDS: POTASSIUM CHLORIDE 20 MEQ TABCR PO SCH ×2 (09:24→20:14)
[2020-06-22] MEDS: ESCITALOPRAM OXALATE 20 MG TAB PO SCH (09:24)
[2020-06-22] MEDS: DOCUSATE SODIUM 100 MG CAP PO SCH ×2 (09:24→20:14)
[2020-06-22] MEDS: PANTOprazole 40 MG TAB PO SCH ×2 (09:25→20:14)
[2020-06-22] MEDS: METOPROLOL TARTRATE 25 MG TAB PO SCH ×2 (09:25→20:19)
[2020-06-22] MEDS: ATORVASTATIN 40 MG TAB PO SCH (09:25)
[2020-06-22] MEDS: MULTIVITAMIN TAB PO SCH (09:26)
[2020-06-22] MEDS: MAGNESIUM OXIDE 400 MG TAB PO SCH (09:26)
[2020-06-22] MEDS: INSULIN ASPART 100 UNITS/ML 3 ML PEN SC SCH ×4 (09:28→20:43)
[2020-06-22] MEDS: SODIUM CHLORIDE 0.65% NA SOLN 45 ML (OCEAN) NAE SCH ×2 (09:31→20:15)
[2020-06-22] MEDS ORDERED: BUMETANIDE 3 MG in SYRINGE 0 ML IV STA (09:52)
--- NOTE | 2020-06-22 15:09 | Cardiology Progress Note ---
Date of Service June 22, 2020 Assessment & Plan (1) Acute on chronic heart failure with preserved ejection fraction: 2. Hypoxemic and hypercarbic respiratory failure 3. Prior severe aortic stenosis post TAVR 4. Acute on chronic renal insufficiency 5. Anemia 6. 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 Paroxysmal SVT 8. Restrictive lung disease 9. Type 2 diabetes Respiratory status slightly improved from admission but still limited on 5L. Urine output improved with IV Bumex yesterday Well perfused on exam but with persistent congestion Serum creatinine improved today with improved urine output Patient still volume overloaded with right greater than left heart failure. Recent acute kidney injury seems more secondary to cardiorenal syndrome with predominantly right heart failure rather than intravascular depletion. -- Agree with more aggressive diuresis. Given 3 mg IV Bumex this morning. Goal greater than 2 L urine output today, net negative more than 1 L If does not make urine goals today would increase to twice daily IV diuretics tomorrow Continue spironolactone -- Hold ARB -- Continue beta-criss Therapeutic on warfarin Admission and Anticipated Discharge Date Admission Date: June 11, 2020 Subjective Breathing slightly improved. No chest pain. Edema unchanged. No other new concerns. Negative 1200 yesterday. UOP 2500 Review of Systems Review of Systems: All systems reviewed & are unremarkable except as noted in HPI & below Physical Exam Physical Exam: General: Comfortable, no acute distress Eyes: Sclerae anicteric, extraocular movements intact HENT: Oropharynx clear mucous membranes moist Lungs: Decreased breath sounds at the bases otherwise clear Cardiac: Regularly irregular with likely frequent PVCs, 2 out of 6 systolic e jection murmur with crisp bioprosthetic closure Vascular: 2+ radial Abdomen: Soft, nontender, nondistended, positive bowel sounds. Extremities: Well perfused, 2+ lower extremity edema to mid jeffers Psych: Alert orient x3, normal affect and mood Results & Data ([facility]) Vital Signs (Past 12 Hours) Vital Signs Temp Pulse Resp BP Pulse Ox 06/22/20 07:38 97.5 F L 55 L 16 142/59 H 97 PG Care Time/CCT Total # of Minutes Spent Total Time Spent with Patient: Total time spent is greater than 50% in coordination of care (as documented) at patient's floor/unit and/or counseling patient: Coding Level of Care Code 11103 Subseq Hosp Care Lvl 3 Diagnoses Acute on chronic heart failure with preserved ejection fraction I50.33
[2020-06-22] MEDS: WARFARIN SOD 7.5 MG TAB PO SCH (17:49)
[2020-06-22] MEDS ORDERED: BUMETANIDE 2 MG in SYRINGE 0 ML IV ONE (18:15)
--- NOTE | 2020-06-22 21:32 | Hospitalist Progress Note ---
Date of Service June 22, 2020 Assessment & Plan (1) Acute on chronic heart failure with preserved ejection fraction: still decompensated / ongoing. this is despite numerous attempts to diurese over the course of the hospital stay. attempt to diurese led to marybel which is fortunately now resolving. increase bumex to 3mg IV and follow response. will likely need 2nd dose of bumex later today. cont aldactone. cont BB. repeat BMP am. (2) Thrombus of atrial appendage: coumadin 7.5mg daily INR finally 2.2 today due to high risk of stroke will use heparin bridge while awaiting INR between 2- 3 x 48 hours INR in am (3) Acute kidney injury: 2nd to over-diuresis/intra-vascular volume depletion - resolving. resumed diuretics. BMP am. cont to hold ARB. (4) Muscle weakness (generalized): CPK wnl. awaiting aldolase. recent TSH, B12, etc wnl. appreciate neuro recs. (5) Acute on chronic respiratory failure with hypoxia and hypercapnia: acute component resolved - NC o2 requirement at baseline of 5 L NC. was 2nd to decompensated CHF. chronic resp failure 2nd to COPD. (6) Acute metabolic encephalopathy: 2nd to hypercarbia - resolved (7) COPD (chronic obstructive pulmonary disease): without exacerbation appreciate pulmonary consultation cont inhalers and nebs prn oxygen dependent (8) S/P TAVR (transcatheter aortic valve replacement): [facility] 04/2020 echo this admission with good valve function & gradient EF preserved (9) CAD (coronary artery disease): I do not have the cath report but either nonobstructive or clean c oronaries based on references made in cardiology progress notes. (10) Gall stones: no symptoms or signs of cholecystitis although had been receiving IV zosyn for possibility of such stopped antibiotics earlier this week no recurrent GI symptoms since coming off abx doubt presence of cholecystitis. cont to follow OFF antibiotics of note - he does have RUQ discomfort with palpation but inconsistently. WIthout palpation there is no pain. He has no pain with eating either. No nausea No emesis eating 100% meals (11) Prediabetes: novolog ac/hs DM diet controlled (12) Hypertension: cont BB (13) Chronic anticoagulation: started at [facility] when left atrial appendage thrombus was discovered daily INR coumadin 7.5mg daily heparin bridge as noted above (14) DVT prophylaxis: coumadin heparin drip until INR is >2 for 2 straight days cont PT/OT - cleared for home left message for 06/18 and 06/19 and 06/21 Admission and Anticipated Discharge Date Admission Date: June 11, 2020 Subjective feels a bit better today. not as short of breath. still with considerable LE edema. eating well and without abdominal pain, nausea or emesis. no fever. denies orthopnea. ambulating to bathroom w/o dyspnea. Review of Systems Respiratory: + dyspnea on exertion; no cough, no hemoptysis and no wheezing Cardiovascular: + edema; no chest pain and no paroxysmal nocturnal dyspnea Gastrointestinal: no abdominal pain and no constipation Physical Exam Constitutional: well developed and well nourished; no acute distress and no altered mental status ENMT: external ear and nose normal, oropharynx normal Respiratory: Auscultation: + diminished lung sounds (bases) and + crackles (Bases); no wheezes Cardiovascular: Rate/Rhythm: regular rate and regular rhythm Heart Sounds: normal S1, normal S2 and + murmur (1-2/6 RUSB systolic) Vessels: + JVD, posterior tibial pulses present and dorsalis pedis pulses present Extremities: + edema (3+ b/l - no change ) Gastrointestinal (Abdomen): normal bowel sounds, soft, nontender, no hepatosplenomegaly Psychiatric: A+Ox3, euthymic affect Results & Data Results & Data ([facility]) Vital Signs (Past 12 Hours) Vital Signs Temp Pulse Resp BP Pulse Ox 06/22/20 20:19 63 152/64 H 06/22/20 15:38 36.9 C 62 18 126/51 L 95 Laboratory Results Laboratory Results - last 24 hr 06/22/20 06/22/20 06/22/20 05:39 05:39 05:39 WBC 6.11 RBC 2.96 L Hgb 8.4 L Hct 28.3 L MCV 95.6 MCH 28.4 MCHC 29.7 L RDW Std Deviation 53.1 H RDW Coeff of Vesta 15.2 H Plt Count 265 MPV 11.7 H PT 21.8 H INR 2.2 H APTT 55.8 H* PTT Ratio 2.0 Sodium 138 Potassium 4.1 Chloride 97 L Carbon Dioxide 39 H Anion Gap 3.0 BUN 65 H Creatinine 1.65 H Est Cr Clr Drug Dosing 43.2 Est GFR ( Amer) 46.0 Est GFR (Non-Af Amer) 39.7 BUN/Creatinine Ratio 39.4 H Glucose 152 H POC Glucose Calcium 9.5 06/22/20 06/22/20 06/22/20 08:34 12:11 17:07 WBC RBC Hgb Hct MCV MCH MCHC RDW Std Deviation RDW Coeff of Vesta Plt Count MPV PT INR APTT PTT Ratio Sodium Potassium Chloride Carbon Dioxide Anion Gap BUN Creatinine Est Cr Clr Drug Dosing Est GFR ( Amer) Est GFR (Non-Af Amer) BUN/Creatinine Ratio Glucose POC Glucose 149 H 78 137 H Calcium 06/22/20 20:40 WBC RBC Hgb Hct MCV MCH MCHC RDW Std Deviation RDW Coeff of Vesta Plt Count MPV PT INR APTT PTT Ratio Sodium Potassium Chloride Carbon Dioxide Anion Gap BUN Creatinine Est Cr Clr Drug Dosing Est GFR ( Amer) Est GFR (Non-Af Amer) BUN/Creatinine Ratio Glucose POC Glucose 148 H Calcium PG Care Time/CCT Total # of Minutes Spent Total Time Spent with Patient: Total time spent is greater than 50% in coordination of care (as documented) at patient's floor/unit and/or counseling patient: Coding Level of Care Code 17319 Subseq Hosp Care Lvl 2 Diagnoses Acute on chronic heart failure with preserved ejection fraction I50.33 Thrombus of atrial appendage I51.3 Acute kidney injury N17.9 Muscle weakness (generalized) M62.81 Acute on chronic respiratory failure with hypoxia and hypercapnia J96.21; J96.22 Acute metabolic encephalopathy G93.41 COPD (chronic obstructive pulmonary disease) J44.9 S/P TAVR (transcatheter aortic valve replacement) Z95.2 CAD (coronary artery disease) I25.10 Gall stones K80.20 Prediabetes R73.03 Hypertension I10 Hypertension type: essential hypertension Chronic anticoagulation Z79.01 DVT prophylaxis Z29.9 (1) Hypertension Hypertension type: essential hypertension Qualified Code(s): I10 - Essential (primary) hypertension
[2020-06-23] MEDS: HEPARIN SODIUM/DEXTROSE 25,000 UNITS/500 ML BAG IV SCH ×4 (04:33→12:05)
[2020-06-23 06:27] LABS: INR 2.9 (0.9-1.1); Partial Thromboplastin Ratio 2.5
[2020-06-23 06:33] LABS: Partial Thromboplastin Time 68.9 Seconds (21.0-31.0)
[2020-06-23 06:48] LABS: BUN Creatinine Ratio 45.7 (10-20); Calcium 9.5 mg/dl (8.5-10.1); Creatinine Clr Calc Pharmacy 52.8 ml/min; Est GFR (African American) 59.3; Est GFR (Non-African American) 51.2; Potassium 4.4 mmol/L (3.5-5.1)
[2020-06-23] MEDS ORDERED: BUMETANIDE 3 MG in SYRINGE 0 ML IV ONE ×2 (07:45→16:04)
[2020-06-23] MEDS: ATORVASTATIN 40 MG TAB PO SCH (08:09)
[2020-06-23] MEDS: FERROUS SULFATE 325 MG TAB PO SCH ×2 (08:10→18:21)
[2020-06-23] MEDS: POTASSIUM CHLORIDE 20 MEQ TABCR PO SCH ×2 (08:10→21:39)
[2020-06-23] MEDS: METOPROLOL TARTRATE 25 MG TAB PO SCH ×2 (08:10→21:48)
[2020-06-23] MEDS: MAGNESIUM OXIDE 400 MG TAB PO SCH (08:10)
[2020-06-23] MEDS: PANTOprazole 40 MG TAB PO SCH ×2 (08:11→21:40)
[2020-06-23] MEDS: ESCITALOPRAM OXALATE 20 MG TAB PO SCH (08:11)
[2020-06-23] MEDS: SPIRONOLACTONE 25 MG TAB PO SCH (08:11)
[2020-06-23] MEDS: DOCUSATE SODIUM 100 MG CAP PO SCH ×2 (08:11→21:40)
[2020-06-23] MEDS: MULTIVITAMIN TAB PO SCH (08:11)
[2020-06-23] MEDS: FLUTICASONE/VILANTEROL 100/25MCG 14 PUFFS/INHALER INH SCH (08:12)
[2020-06-23] MEDS: SODIUM CHLORIDE 0.65% NA SOLN 45 ML (OCEAN) NAE SCH ×2 (08:17→21:38)
[2020-06-23] MEDS: INSULIN ASPART 100 UNITS/ML 3 ML PEN SC SCH ×4 (10:14→22:25)
--- NOTE | 2020-06-23 20:59 | Hospitalist Progress Note ---
Date of Service June 23, 2020 Assessment & Plan (1) Acute on chronic heart failure with preserved ejection fraction: ongoing. in light of improving renal function will place on IV bumex 3mg BID. he is tolerating this and we are finally getting a better diuresis. standing scale daily weights. I's and O's along with fluid restriction. cont aldactone. cont BB. repeat BMP am. (2) Thrombus of atrial appendage: INR 2.9 today INR has been >2 for 48 hours d/c heparin bridge the INR has jumped up quickly on 7.5mg of coumadin will hold today's dose as I am concerned there will be more rise by tomorrow suspect at baseline he will need 5mg most days with 7.5mg 1-2 days/week (he had no rise in INR with daily 5mg doses) repeat INR am (3) Acute kidney injury: 2nd to over-diuresis. again improved. BMP am. cont to hold ARB. use bumex 3mg IV BID for diuresis for CHF. (4) Muscle weakness (generalized): CPK wnl. still awaiting aldolase. recent TSH, B12, etc wnl. appreciate neuro recs. (5) Acute on chronic respiratory failure with hypoxia and hypercapnia: acute component resolved - NC o2 requirement at baseline of 5 L NC. was 2nd to decompensated CHF. chronic resp failure 2nd to COPD. (6) Acute metabolic encephalopathy: 2nd to hypercarbia - resolved (7) COPD (chronic obstructive pulmonary disease): without exacerbation appreciate pulmonary consultation cont inhalers and nebs prn oxygen dependent (8) S/P TAVR (transcatheter aortic valve replacement): [facility] 04/2020 echo this admission with good valve function & gradient EF preserved (9) CAD (coronary artery disease): I do not have the cath report but either nonobstructive or clean coronaries. Cath was done at [facility]. (10) Gall stones: earlier this admission there was some concern of cholecystitis based on RUQ US and a pain that he was getting inconsistently in the RUQ (pain only brought on by palpation). thus, he was placed on IV antibiotics for ?cholecystitis. I stopped antibiotics this week and observed him off of such. he has had no nausea, emesis or abd pain with eating. consuming 100% of meals w/o difficulty. I am not convinced he has acute cholecystitis but watch carefully for such. cont to follow OFF antibiotics. (11) Prediabetes: novolog ac/hs DM diet controlled (12) Hypertension: cont BB ARB held; unlikely he will need this at discharge (13) Chronic anticoagulation: started at [facility] when left atrial appendage thrombus was discovered daily INR coumadin 7.5mg daily heparin bridge (14) DVT prophylaxis: coumadin stop heparin cont PT/OT - but cleared for home left message for 06/18 and 06/19 and 06/21 Admission and Anticipated Discharge Date Admission Date: June 11, 2020 Subjective no new complaints today. breathing both at rest and with activity are at baseline. no PND or orthopnea overnight. LE edema may be a "smidge" better. Had good UOP this am with AM bumex IV. asks about an estimate for d/c. Review of Systems Respiratory: no wheezing Cardiovascular: no chest pain Gastrointestinal: no abdominal pain, no nausea and no vomiting Physical Exam Constitutional: well developed and well nourished; no acute distress and no altered mental status ENMT: external ear and nose normal, oropharynx normal Respiratory: Auscultation: + diminished lung sounds (bases) and + crackles (Bases - improved ); no wheezes Cardiovascular: Rate/Rhythm: regular rate and regular rhythm Heart Sounds: normal S1, normal S2 and + murmur (1-2/6 RUSB systolic) Vessels: + JVD, posterior tibial pulses present and dorsalis pedis pulses present Extremities: + edema (2-3+ b/l) Gastrointestinal (Abdomen): normal bowel sounds, soft, nontender, no hepatosplenomegaly (Minimal tenderness with deep palpation RUQ) Psychiatric: A+Ox3, euthymic affect Results & Data Results & Data ([facility]) Vital Signs (Past 12 Hours) Vital Signs Temp Pulse Resp BP Pulse Ox 06/23/20 15:35 36.9 C 53 L 18 123/55 L 97 Laboratory Results Laboratory Results - last 24 hr 06/23/20 06/23/20 06/23/20 05:53 05:53 08:42 PT 29.0 H INR 2.9 H APTT 68.9 H* PTT Ratio 2.5 Sodium 144 Potassium 4.4 Chloride 100 Carbon Dioxide 43 H* Anion Gap 1.0 L BUN 61 H Creatinine 1.33 D Est Cr Clr Drug Dosing 52.8 Est GFR ( Amer) 59.3 Est GFR (Non-Af Amer) 51.2 BUN/Creatinine Ratio 45.7 H Glucose 95 POC Glucose 137 H Calcium 9.5 06/23/20 06/23/20 12:07 17:08 PT INR APTT PTT Ratio Sodium Potassium Chloride Carbon Dioxide Anion Gap BUN Creatinine Est Cr Clr Drug Dosing Est GFR ( Amer) Est GFR (Non-Af Amer) BUN/Creatinine Ratio Glucose POC Glucose 110 H 148 H Calcium PG Care Time/CCT Total # of Minutes Spent Total Time Spent with Patient: Total time spent is greater than 50% in coordination of care (as documented) at patient's floor/unit and/or counseling patient: Coding Level of Care Code 39534 Subseq Hosp Care Lvl 3 Diagnoses Acute on chronic heart failure with preserved ejection fraction I50.33 Thrombus of atrial appendage I51.3 Acute kidney injury N17.9 Muscle weakness (generalized) M62.81 Acute on chronic respiratory failure with hypoxia and hypercapnia J96.21; J96.22 Acute metabolic encephalopathy G93.41 COPD (chronic obstructive pulmonary disease) J44.9 S/P TAVR (transcatheter aortic valve replacement) Z95.2 CAD (coronary artery disease) I25.10 Gall stones K80.20 Prediabetes R73.03 Hypertension I10 Hypertension type: essential hypertension Chronic anticoagulation Z79.01 DVT prophylaxis Z29.9 (1) Hypertension Hypertension type: essential hypertension Qualified Code(s): I10 - Essential (primary) hypertension
[2020-06-23] MEDS: MUPIROCIN 2% OINT 22 GM TUBE EXT SCH ×2 (21:41→21:48)
[2020-06-24 06:24] LABS: Hematocrit (blood only) 27.5 % (42-52); Hemoglobin 8.1 g/dL (14.0-18.0); Mean Corpuscular Hemoglobin 27.9 pg (25-34); Mean Corpuscular Hgb Conc 29.5 g/dL (32-36); Mean Corpuscular Volume 94.8 fL (80-100); Mean Platelet Volume 11.1 fL (7.4-10.4); Platelet Count 241 K/uL (130-400); RDW Coefficient of Variation 15.2 % (11.5-14.5); RDW Standard Deviation 52.7 fL (36.4-46.3); White Blood Count 5.99 K/uL (4.8-10.8)
[2020-06-24 06:33] LABS: INR 2.8 (0.9-1.1); Partial Thromboplastin Ratio 1.4; Partial Thromboplastin Time 38.9 Seconds (21.0-31.0); Prothrombin Time 27.6 Seconds (9.0-12.0)
[2020-06-24 06:51] LABS: BUN Creatinine Ratio 40.3 (10-20); Calcium 9.7 mg/dl (8.5-10.1); Creatinine Clr Calc Pharmacy 47.9 ml/min; Est GFR (Non-African American) 45.7; Potassium 4.6 mmol/L (3.5-5.1)
[2020-06-24 06:58] LABS: Aldolase 4.7 U/L (< OR = 8.1); CK Total 28 U/L (44-196); CK-MB 0 % (<5); CK-MM 100 % (95-100)
[2020-06-24] MEDS: FLUTICASONE/VILANTEROL 100/25MCG 14 PUFFS/INHALER INH SCH (09:06)
[2020-06-24] MEDS: SPIRONOLACTONE 25 MG TAB PO SCH (09:06)
[2020-06-24] MEDS: FERROUS SULFATE 325 MG TAB PO SCH ×2 (09:06→17:02)
[2020-06-24] MEDS: POTASSIUM CHLORIDE 20 MEQ TABCR PO SCH ×2 (09:07→20:20)
[2020-06-24] MEDS: DOCUSATE SODIUM 100 MG CAP PO SCH ×2 (09:07→20:19)
[2020-06-24] MEDS: ESCITALOPRAM OXALATE 20 MG TAB PO SCH (09:07)
[2020-06-24] MEDS: ATORVASTATIN 40 MG TAB PO SCH (09:08)
[2020-06-24] MEDS: MAGNESIUM OXIDE 400 MG TAB PO SCH (09:08)
[2020-06-24] MEDS: MULTIVITAMIN TAB PO SCH (09:09)
[2020-06-24] MEDS: PANTOprazole 40 MG TAB PO SCH ×2 (09:21→20:20)
[2020-06-24] MEDS: METOPROLOL TARTRATE 25 MG TAB PO SCH ×2 (09:21→20:19)
[2020-06-24] MEDS: SODIUM CHLORIDE 0.65% NA SOLN 45 ML (OCEAN) NAE SCH ×2 (09:23→20:20)
[2020-06-24] MEDS: MUPIROCIN 2% OINT 22 GM TUBE EXT SCH ×2 (09:24→20:20)
[2020-06-24] MEDS: INSULIN ASPART 100 UNITS/ML 3 ML PEN SC SCH ×4 (09:25→21:29)
[2020-06-24] MEDS: BUMETANIDE 3 MG in SYRINGE 0 ML IV SCH ×2 (09:30→17:50)
--- NOTE | 2020-06-24 11:23 | Hospitalist Progress Note ---
Date of Service June 24, 2020 Assessment & Plan (1) Acute on chronic heart failure with preserved ejection fraction: ongoing, still with tense edema in legs bilaterally responding to IV bumex 3mg BID. negative 2.5 liters today, Cr is holding standing scale daily weights. I's and O's along with fluid restriction. cont aldactone. cont BB. repeat BMP am discussed with Suki GILMAN with CHF clinic (2) Thrombus of atrial appendage: INR 2.8 today INR has been >2 for 48 hours d/c heparin bridge resume Coumadin 5mg daily repeat INR am (3) Acute kidney injury: 2nd to over-diuresis. again improved, Cr is 1.4 BMP am. cont to hold ARB. use bumex 3mg IV BID for diuresis for CHF. (4) Muscle weakness (generalized): CPK wnl. he is walking in the hallway recent TSH, B12, etc wnl. appreciate neuro recs. (5) Acute on chronic respiratory failure with hypoxia and hypercapnia: acute component resolved - NC o2 requirement at baseline of 5 L NC. was 2nd to decompensated CHF. chronic resp failure 2nd to COPD. plan for Trilogy at home (6) Acute metabolic encephalopathy: 2nd to hypercarbia - resolved (7) COPD (chronic obstructive pulmonary disease): without exacerbation appreciate pulmonary consultation cont inhalers and nebs prn oxygen dependent Trilogy arranged at home (8) S/P TAVR (transcatheter aortic valve replacement): [facility] 04/2020 echo this admission with good valve function & gradient EF preserved (9) CAD (coronary artery disease): Cath was done at [facility] mild disease (10) Gall stones: earlier this admission there was some concern of cholecystitis based on RUQ US and a pain that he was getting inconsistently in the RUQ (pain only brought on by palpation). thus, he was placed on IV antibiotics for ?cholecystitis. I stopped antibiotics this week and observed him off of such. he has had no nausea, emesis or abd pain with eating. consuming 100% of meals w/o difficulty. I am not convinced he has acute cholecystitis but watch carefully for such. cont to follow OFF antibiotics. (11) Prediabetes: novolog ac/hs DM diet controlled (12) Hypertension: cont BB ARB held; unlikely he will need this at discharge (13) Chronic anticoagulation: started at [facility] when left atrial appendage thrombus was discovered daily INR coumadin 5mg daily (14) DVT prophylaxis: coumadin stop heparin cont PT/OT - but cleared for home Admission and Anticipated Discharge Date Admission Date: June 11, 2020 Subjective patient making urine with the Bumex, still with tense edema in legs bilaterally, says that this is not normal he is not sure what his baseline weight should be he is eating well, had a BM yesterday, no issues sleeping with BiPAP mask reviewed labs, WBC 5k, Hb 8, plts 241 INR is 2.8, Cr 1.46, holding with the Bumex discussed plans for the next few days, he wants edema improved prior to going home, he accepts staying here as long as needed I agreed that we need to get him close to euvolemic, will be at high risk of bouncing back Review of Systems Review of Systems: All systems reviewed & are unremarkable except as noted in Subjective Constitutional: no fever, no sweats, no fatigue and no weakness Respiratory: + dyspnea on exertion; no cough and no dyspnea Cardiovascular: + edema; no chest pain Gastrointestinal: no abdominal pain, no nausea, no vomiting, no constipation and no diarrhea/loose stools Physical Exam Constitutional: well developed, well nourished and + edematous; no acute distress Eyes: PERRL, conjunctivae normal, anicteric sclerae ENMT: external ear and nose normal, oropharynx normal Neck: trachea midline, no thyromegaly Respiratory: normal respiratory effort, lungs clear to auscultation Auscultation: + diminished lung sounds (bases) Cardiovascular: Rate/Rhythm: regular rate and regular rhythm Heart Sounds: normal S1 and normal S2; no murmur Extremities: normal capillary refill and + edema (tense, to knees bilaterally) Gastrointestinal (Abdomen): normal bowel sounds, soft, nontender, no hepatosplenomegaly Musculoskeletal: no cyanosis or clubbing, extremities motor strength 5/5 Skin: no rashes, warm and dry Neurologic: patellar DTR's 2+ bilat, sensation intact and PERRL, EOMI, accommodation nl, no face palsy, no dysarthria Psychiatric: A+Ox3, euthymic affect Lymphatic: no cervical or axillary lymphadenopathy Results & Data Results & Data ([facility]) Vital Signs (Past 12 Hours) Vital Signs Temp Pulse Resp BP BP Pulse Ox 06/24/20 08:05 36.7 C 57 L 18 137/55 L 97 06/23/20 23:27 36.4 C L 64 18 138/54 L 92 PG Care Time/CCT Total # of Minutes Spent Total Time Spent with Patient: Total time spent is greater than 50% in coordination of care (as documented) at patient's floor/unit and/or counseling patient: Coding Level of Care Code 52779 Subseq Hosp Care Lvl 3 Diagnoses Acute on chronic heart failure with preserved ejection fraction I50.33 Thrombus of atrial appendage I51.3 Acute kidney injury N17.9 Muscle weakness (generalized) M62.81 Acute on chronic respiratory failure with hypoxia and hypercapnia J96.21; J96.22 Acute metabolic encephalopathy G93.41 COPD (chronic obstructive pulmonary disease) J44.9 S/P TAVR (transcatheter aortic valve replacement) Z95.2 CAD (coronary artery disease) I25.10 Gall stones K80.20 Prediabetes R73.03 Hypertension I10 Hypertension type: essential hypertension Chronic anticoagulation Z79.01 DVT prophylaxis Z29.9 (1) Hypertension Hypertension type: essential hypertension Qualified Code(s): I10 - Essential (primary) hypertension
--- NOTE | 2020-06-24 16:03 | Heart Failure Progress Note ---
Date of Service June 24, 2020 Assessment & Plan (1) Acute on chronic heart failure with preserved ejection fraction: 2. Hypoxemic and hypercarbic respiratory failure 3. Prior severe aortic stenosis post TAVR 4. Acute on chronic renal insufficiency 5. Anemia 6. 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 Paroxysmal SVT 8. Restrictive lung disease 9. Type 2 diabetes Respiratory status slightly improved from admission but still limited on 5L. Urine output improved with IV Bumex. Well perfused on exam but with persistent congestion Serum creatinine mildly elevated today, historically responded to more aggressive diuretics. Continue to monitor. Now tolerating BiPAP at night. Referred for Trilogy at discharge. Patient still volume overloaded with right greater than left heart failure. Recent acute kidney injury seems more secondary to cardiorenal syndrome with predominantly right heart failure rather than intravascular depletion. -- Agree with more aggressive diuresis. Continue Bumex 3 mg IV BID. Goal net negative 1-2 L per day Continue spironolactone -- Hold ARB -- Continue beta-criss Therapeutic on warfarin -- Daily standing weights -- Low sodium diet, less than 2,000 mg daily -- Limit fluid intake. -- PT/OT -- Patient high risk for readmission, agree with prolonged hospital stay if needed to achieve euvolemia prior to discharge. Once euvolemic, recommend 24 hours on oral diuretics prior to discharge to ensure he can maintain. Continue close follow up with heart failure program. Will continue to follow during hospitalization. Subjective Patient is resting comfortably in the chair at the bedside. Patient reports he's feeling better today, although not yet at baseline. He's responding well to Bumex, significant urine output overnight and into today. He's been ambulatory in the room as well as the hallway. Remains on 5 L supplemental oxygen. He denies worsening orthopnea. He continues to have significant lower extremity edema. Physical Exam Physical Exam: General: Comfortable, no acute distress Eyes: Sclerae anicteric, extraocular movements intact HENT: Oropharynx clear mucous membranes moist Lungs: Decreased breath sounds at the bases otherwise clear Cardiac: Regularly irregular with likely frequent PVCs, 2 out of 6 systolic ejection murmur with crisp bioprosthetic closure Vascular: 2+ radial Abdomen: Soft, nontender, nondistended, positive bowel sounds. Extremities: Well perfused, 2+ lower extremity edema to mid jeffers Psych: Alert orient x3, normal affect and mood Results & Data Vital Signs (Past 12 Hours) Vital Signs Temp Pulse Pulse Resp BP BP Pulse Ox 06/24/20 14:48 97.9 F 59 L 18 137/56 L 98 06/24/20 08:05 98.1 F 57 L 18 137/55 L 97 PG Care Time/CCT Total # of Minutes Spent Total Time Spent with Patient: Total time spent is greater than 50% in coordination of care (as documented) at patient's floor/unit and/or counseling patient: Coding Level of Care Code 79501 Subseq Hosp Care Lvl 3 Diagnoses Acute on chronic heart failure with preserved ejection fraction I50.33
[2020-06-25 06:37] LABS: Partial Thromboplastin Ratio 1.5; Partial Thromboplastin Time 41.2 Seconds (21.0-31.0)
[2020-06-25] MEDS: INSULIN ASPART 100 UNITS/ML 3 ML PEN SC SCH ×4 (08:31→20:37)
[2020-06-25] MEDS: MAGNESIUM OXIDE 400 MG TAB PO SCH (08:32)
[2020-06-25] MEDS: SODIUM CHLORIDE 0.65% NA SOLN 45 ML (OCEAN) NAE SCH ×2 (08:32→20:35)
[2020-06-25] MEDS: ESCITALOPRAM OXALATE 20 MG TAB PO SCH (08:32)
[2020-06-25] MEDS: MULTIVITAMIN TAB PO SCH (08:32)
[2020-06-25] MEDS: DOCUSATE SODIUM 100 MG CAP PO SCH ×2 (08:32→20:33)
[2020-06-25] MEDS: ATORVASTATIN 40 MG TAB PO SCH (08:32)
[2020-06-25] MEDS: POTASSIUM CHLORIDE 20 MEQ TABCR PO SCH ×2 (08:32→20:34)
[2020-06-25] MEDS: FERROUS SULFATE 325 MG TAB PO SCH ×2 (08:32→17:18)
[2020-06-25] MEDS: PANTOprazole 40 MG TAB PO SCH ×2 (08:32→20:34)
[2020-06-25] MEDS: METOPROLOL TARTRATE 25 MG TAB PO SCH ×2 (08:32→20:36)
[2020-06-25] MEDS: SPIRONOLACTONE 25 MG TAB PO SCH (08:32)
[2020-06-25] MEDS: FLUTICASONE/VILANTEROL 100/25MCG 14 PUFFS/INHALER INH SCH (08:33)
[2020-06-25] MEDS: BUMETANIDE 3 MG in SYRINGE 0 ML IV SCH ×2 (08:33→17:18)
[2020-06-25] MEDS: MUPIROCIN 2% OINT 22 GM TUBE EXT SCH ×2 (08:33→20:33)
[2020-06-25 12:44] LABS: BUN Creatinine Ratio 40.6 (10-20); Calcium 10.2 mg/dl (8.5-10.1); Creatinine Clr Calc Pharmacy 53.5 ml/min; Est GFR (Non-African American) 52.6; Potassium 4.8 mmol/L (3.5-5.1)
--- NOTE | 2020-06-25 14:39 | Heart Failure Progress Note ---
Date of Service June 25, 2020 Assessment & Plan (1) Acute on chronic heart failure with preserved ejection fraction: 2. Hypoxemic and hypercarbic respiratory failure 3. Prior severe aortic stenosis post TAVR 4. Acute on chronic renal insufficiency 5. Anemia 6. 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 Paroxysmal SVT 8. Restrictive lung disease 9. Type 2 diabetes Respiratory status slightly improved from admission but still limited on 5L. Urine output improved with IV Bumex. Well perfused on exam but with persistent congestion Serum creatinine improving, historically responded to more aggressive diuretics. Continue to monitor. Now tolerating BiPAP at night. Referred for Trilogy at discharge. Patient still volume overloaded with right greater than left heart failure. Recent acute kidney injury seems more secondary to cardiorenal syndrome with predominantly right heart failure rather than intravascular depletion. -- Agree with continued diuresis. Continue Bumex 3 mg IV BID. Goal net negative 1-2 L per day Continue spironolactone -- Hold ARB -- Continue beta-criss Therapeutic on warfarin -- Daily standing weights -- Low sodium diet, less than 2,000 mg daily -- Limit fluid intake. -- PT/OT -- Patient high risk for readmission, agree with prolonged hospital stay if needed to achieve euvolemia prior to discharge. Once euvolemic, recommend 24 hours on oral diuretics prior to discharge to ensure he can maintain. Continue close follow up with heart failure program. Will continue to follow during hospitalization. Subjective Patient is resting comfortably in the chair at the bedside eating breakfast. Patient reports he's making progress. He continues to have adequate response to Bumex, significant urine output overnight and into today. Remains on 5 L supplemental oxygen. He denies worsening orthopnea. He continues to have significant lower extremity edema. Net negative 1.5 L today. Weight down to 196 lb, confirmed standing scale used. Physical Exam Physical Exam: General: Comfortable, no acute distress Eyes: Sclerae anicteric, extraocular movements intact HENT: Oropharynx clear mucous membranes moist Lungs: Decreased breath sounds at the bases otherwise clear Cardiac: Regularly irregular with likely frequent PVCs, 2 out of 6 systolic ejection murmur with crisp bioprosthetic closure Vascular: 2+ radial Abdomen: Soft, nontender, nondistended, positive bowel sounds. Extremities: Well perfused, 2+ lower extremity edema to mid jeffers Psych: Alert orient x3, normal affect and mood Results & Data Vital Signs (Past 12 Hours) Vital Signs Temp Pulse Pulse Resp BP Pulse Ox 06/25/20 08:30 64 06/25/20 08:08 97.7 F 56 L 18 128/64 100 PG Care Time/CCT Total # of Minutes Spent Total Time Spent with Patient: Total time spent is greater than 50% in coordination of care (as documented) at patient's floor/unit and/or counseling patient: Coding Level of Care Code 63907 Subseq Hosp Care Lvl 3 Diagnoses Acute on chronic heart failure with preserved ejection fraction I50.33
--- NOTE | 2020-06-25 16:14 | Hospitalist Progress Note ---
Date of Service June 25, 2020 Assessment & Plan (1) Acute on chronic heart failure with preserved ejection fraction: ongoing, still with tense edema in legs bilaterally responding to IV bumex 3mg BID. negative 1.5 liters today, Cr is holding at 1.3 standing scale daily weights. I's and O's along with fluid restriction. cont aldactone. cont BB. repeat BMP am will give Zaroxolyn 5mg PO prior to AM dose of Bumex tomorrow, look for improved diuresis (2) Thrombus of atrial appendage: INR 2.8 06/24, no INR today check INR tomorrow (3) Acute kidney injury: 2nd to over-diuresis. again improved, Cr is 1.3 BMP am. cont to hold ARB. use bumex 3mg IV BID for diuresis for CHF. (4) Muscle weakness (generalized): CPK wnl. he is walking in the hallway recent TSH, B12, etc wnl. appreciate neuro recs. (5) Acute on chronic respiratory failure with hypoxia and hypercapnia: acute component resolved - NC o2 requirement at baseline of 5 L NC. was 2nd to decompensated CHF. chronic resp failure 2nd to COPD. plan for Trilogy at home (6) Acute metabolic encephalopathy: 2nd to hypercarbia - resolved (7) COPD (chronic obstructive pulmonary disease): without exacerbation appreciate pulmonary consultation cont inhalers and nebs prn oxygen dependent Trilogy arranged at home (8) S/P TAVR (transcatheter aortic valve replacement): [facility] 04/2020 echo this admission with good valve function & gradient EF preserved (9) CAD (coronary artery disease): Cath was done at [facility] mild disease (10) Gall stones: earlier this admission there was some concern of cholecystitis based on RUQ US and a pain that he was getting inconsistently in the RUQ (pain only brought on by palpation). thus, he was placed on IV antibiotics for ?cholecystitis. I stopped antibiotics this week and observed him off of such. he has had no nausea, emesis or abd pain with eating. consuming 100% of meals w/o difficulty. I am not convinced he has acute cholecystitis but watch carefully for such. cont to follow OFF antibiotics. (11) Prediabetes: novolog ac/hs DM diet controlled (12) Hypertension: cont BB ARB held; unlikely he will need this at discharge (13) Chronic anticoagulation: started at [facility] when left atrial appendage thrombus was discovered daily INR coumadin 5mg daily (14) DVT prophylaxis: coumadin stop heparin cont PT/OT - but cleared for home Admission and Anticipated Discharge Date Admission Date: June 11, 2020 Subjective patient still complains of edema in his legs he says he wants to stay until edema is gone, he did not have this edema on admission he is eating well, ordering two plates he is following fluid restriction still negative on fluid balance the past 24 hours but not as much, discussed using Zaroxolyn tomorrow, he agrees discussed with Suki Herrera with the CHF clinic, she is following Review of Systems Review of Systems: All systems reviewed & are unremarkable except as noted in Subjective Respiratory: + dyspnea on exertion; no cough and no dyspnea Cardiovascular: + edema; no chest pain Gastrointestinal: no abdominal pain, no nausea, no vomiting, no constipation and no diarrhea/loose stools Physical Exam Constitutional: well developed, well nourished and + edematous; no acute distress Eyes: PERRL, conjunctivae normal, anicteric sclerae ENMT: external ear and nose normal, oropharynx normal Neck: trachea midline, no thyromegaly Respiratory: normal respiratory effort, lungs clear to auscultation Auscultation: + diminished lung sounds (bases) Cardiovascular: Rate/Rhythm: regular rate and regular rhythm Heart Sounds: normal S1 and normal S2; no murmur Extremities: normal capillary refill and + edema (tense, to knees bilaterally) Gastrointestinal (Abdomen): normal bowel sounds, soft, nontender, no hepatosplenomegaly Musculoskeletal: no cyanosis or clubbing, extremities motor strength 5/5 Skin: no rashes, warm and dry Neurologic: patellar DTR's 2+ bilat, sensation intact and PERRL, EOMI, accommodation nl, no face palsy, no dysarthria Psychiatric: A+Ox3, euthymic affect Lymphatic: no cervical or axillary lymphadenopathy Results & Data Results & Data ([facility]) Vital Signs (Past 12 Hours) Vital Signs Temp Pulse Pulse Resp BP Pulse Ox 06/25/20 15:35 36.9 C 54 L 17 116/64 99 06/25/20 08:30 64 06/25/20 08:08 36.5 C 56 L 18 128/64 100 Laboratory Results Laboratory Results - last 24 hr 06/24/20 06/24/20 06/24/20 12:22 17:09 20:43 APTT PTT Ratio Sodium Potassium Chloride Carbon Dioxide Anion Gap BUN Creatinine Est Cr Clr Drug Dosing Est GFR ( Amer) Est GFR (Non-Af Amer) BUN/Creatinine Ratio Glucose POC Glucose 104 H 151 H 104 H Calcium 06/25/20 06/25/20 06/25/20 05:53 05:53 08:26 APTT 41.2 H PTT Ratio 1.5 Sodium 141 Potassium 4.8 Chloride 100 Carbon Dioxide 41 H* Anion Gap 1.0 L BUN 53 H Creatinine 1.30 Est Cr Clr Drug Dosing 53.5 Est GFR ( Amer) 61.0 Est GFR (Non-Af Amer) 52.6 BUN/Creatinine Ratio 40.6 H Glucose 86 POC Glucose 103 H Calcium 10.2 H 06/25/20 12:06 APTT PTT Ratio Sodium Potassium Chloride Carbon Dioxide Anion Gap BUN Creatinine Est Cr Clr Drug Dosing Est GFR ( Amer) Est GFR (Non-Af Amer) BUN/Creatinine Ratio Glucose POC Glucose 120 H Calcium Medications Administered Current Inpatient Medications Acetaminophen (Tylenol) 325 mg PO QID PRN PRN Reason: pain Stop: 07/11/20 14:53 Albuterol (Duoneb) 3 ml NEB Q4R PRN PRN Reason: Shortness Of Breath Or Wheezing Stop: 07/11/20 14:59 Last Admin: 06/21/20 11:10 Dose: 3 ml Documented by: Atorvastatin Calcium (Lipitor) 80 mg PO DAILY [facility] Stop: 07/12/20 08:59 Last Admin: 06/25/20 08:32 Dose: 80 mg Documented by: Bumetanide (Bumex) 2 mg PO BID17 [facility] Stop: 07/19/20 08:59 Last Admin: 06/20/20 07:41 Dose: 2 mg Documented by: Dextrose (Dextrose 50%) 25 - 50 ml IV UD PRN; Protocol PRN Reason: Hypoglycemia Protocol Stop: 07/11/20 18:11 Docusate Sodium (Colace) 100 mg PO BID [facility] Stop: 07/11/20 20:59 Last Admin: 06/25/20 08:32 Dose: 100 mg Documented by: Escitalopram Oxalate (Lexapro Tab) 20 mg PO DAILY [facility] Stop: 07/12/20 08:59 Last Admin: 06/25/20 08:32 Dose: 20 mg Documented by: Ferrous Sulfate (Feosol) 325 mg PO BIDM [facility] Stop: 07/20/20 21:14 Last Admin: 06/25/20 08:32 Dose: 325 mg Documented by: Fluticasone/Vilanterol (Breo Ellipta 100/25 Mcg Inh) 1 puffs INH DAILY [facility]; Protocol Stop: 07/11/20 15:59 Last Admin: 06/25/20 08:33 Dose: 1 puffs Documented by: Glucagon (Glucagen) 1 mg SQ UD PRN; Protocol PRN Reason: Hypoglycemia Protocol Stop: 07/11/20 18:11 Glucose (Dex4 Glucose) 4 - 8 tabs PO UD PRN; Protocol PRN Reason: Hypoglycemia Protocol Stop: 07/11/20 18:11 Glucose (Glucose 40%) 15 - 30 gm PO UD PRN; Protocol PRN Reason: Hypoglycemia Protocol Stop: 07/11/20 18:11 Bumetanide 3 mg/ Syringe 12 mls @ 4 mls/min IV DAILY@0900,1700 [facility] Stop: 07/24/20 08:59 Last Admin: 06/25/20 08:33 Dose: 4 mls/min Documented by: Insulin Aspart (Novolog Flexpen) 0 units SC ACHS [facility] Stop: 07/11/20 20:59 Last Admin: 06/25/20 13:26 Dose: 4 units Documented by: Magnesium Oxide (Mag-Ox) 400 mg PO DAILY [facility] Stop: 07/12/20 08:59 Last Admin: 06/25/20 08:32 Dose: 400 mg Documented by: Metolazone (Zaroxolyn) 5 mg PO QAM [facility] Stop: 07/26/20 08:59 Metoprolol Tartrate (Lopressor) 25 mg PO BID [facility] Stop: 07/11/20 20:59 Last Admin: 06/25/20 08:32 Dose: 25 mg Documented by: Miscellaneous (Carbohydrates For Hypoglycemia) 15 - 30 gm PO UD PRN PRN Reason: Hypoglycemia Protocol Stop: 07/11/20 18:11 Multivitamins (Multivitamin Tab) 1 tab PO DAILY [facility] Stop: 07/12/20 08:59 Last Admin: 06/25/20 08:32 Dose: 1 tab Documented by: Mupirocin (Bactroban 2%) 1 appln EXT BID [facility] Stop: 07/23/20 18:44 Last Admin: 06/25/20 08:33 Dose: Not Given Documented by: Pantoprazole Sodium (Protonix) 40 mg PO BID [facility] Stop: 07/11/20 20:59 Last Admin: 06/25/20 08:32 Dose: 40 mg Documented by: Potassium Chloride (Klor-Con M20) 20 meq PO BID [facility] Stop: 07/11/20 20:59 Last Admin: 06/25/20 08:32 Dose: 20 meq Documented by: Sodium Chloride ([place] Nasal) 2 sprays LACIE BID [facility] Stop: 07/11/20 20:59 Last Admin: 06/25/20 08:32 Dose: 2 sprays Documented by: Spironolactone (Aldactone) 25 mg PO QAM [facility] Stop: 07/14/20 08:59 Last Admin: 06/25/20 08:32 Dose: 25 mg Documented by: Warfarin Sodium (Coumadin) 7.5 mg PO DAILY@1600 [facility] Stop: 07/20/20 15:59 Last Admin: 06/22/20 17:49 Dose: 7.5 mg Documented by: PG Care Time/CCT Total # of Minutes Spent Total Time Spent with Patient: Total time spent is greater than 50% in coordination of care (as documented) at patient's floor/unit and/or counseling patient: Coding Level of Care Code 74054 Subseq Hosp Care Lvl 2 Diagnoses Acute on chronic heart failure with preserved ejection fraction I50.33 Thrombus of atrial appendage I51.3 Acute kidney injury N17.9 Muscle weakness (generalized) M62.81 Acute on chronic respiratory failure with hypoxia and hypercapnia J96.21; J96.22 Acute metabolic encephalopathy G93.41 COPD (chronic obstructive pulmonary disease) J44.9 S/P TAVR (transcatheter aortic valve replacement) Z95.2 CAD (coronary artery disease) I25.10 Gall stones K80.20 Prediabetes R73.03 Hypertension I10 Hypertension type: essential hypertension Chronic anticoagulation Z79.01 DVT prophylaxis Z29.9 (1) Hypertension Hypertension type: essential hypertension Qualified Code(s): I10 - Essential (primary) hypertension
[2020-06-26 05:44] LABS: INR 1.6 (0.9-1.1); Prothrombin Time 16.7 Seconds (9.0-12.0)
[2020-06-26 06:17] LABS: BUN Creatinine Ratio 38.9 (10-20); Calcium 10.2 mg/dl (8.5-10.1); Est GFR (African American) 53.5; Est GFR (Non-African American) 46.1; Potassium 4.9 mmol/L (3.5-5.1)
[2020-06-26] MEDS ORDERED: metOLazone 5 MG TABLET PO SCH (08:30)
[2020-06-26] MEDS: FERROUS SULFATE 325 MG TAB PO SCH ×2 (09:22→16:01)
[2020-06-26] MEDS: SPIRONOLACTONE 25 MG TAB PO SCH (09:23)
[2020-06-26] MEDS: MUPIROCIN 2% OINT 22 GM TUBE EXT SCH ×2 (09:24→20:44)
[2020-06-26] MEDS: FLUTICASONE/VILANTEROL 100/25MCG 14 PUFFS/INHALER INH SCH (09:24)
[2020-06-26] MEDS: DOCUSATE SODIUM 100 MG CAP PO SCH ×2 (09:24→20:41)
[2020-06-26] MEDS: ESCITALOPRAM OXALATE 20 MG TAB PO SCH (09:25)
[2020-06-26] MEDS: ATORVASTATIN 40 MG TAB PO SCH (09:25)
[2020-06-26] MEDS: POTASSIUM CHLORIDE 20 MEQ TABCR PO SCH ×2 (09:25→20:40)
[2020-06-26] MEDS: PANTOprazole 40 MG TAB PO SCH ×2 (09:26→20:40)
[2020-06-26] MEDS: MULTIVITAMIN TAB PO SCH (09:26)
[2020-06-26] MEDS: SODIUM CHLORIDE 0.65% NA SOLN 45 ML (OCEAN) NAE SCH ×2 (09:26→20:40)
[2020-06-26] MEDS: MAGNESIUM OXIDE 400 MG TAB PO SCH (09:26)
[2020-06-26] MEDS: METOPROLOL TARTRATE 25 MG TAB PO SCH ×2 (09:29→20:40)
[2020-06-26] MEDS: INSULIN ASPART 100 UNITS/ML 3 ML PEN SC SCH ×4 (09:30→20:45)
--- NOTE | 2020-06-26 10:02 | Heart Failure Progress Note ---
Date of Service June 26, 2020 Assessment & Plan (1) Acute on chronic heart failure with preserved ejection fraction: 2. Hypoxemic and hypercarbic respiratory failure, secondary to acute diastolic CHF. 3. Prior severe aortic stenosis post TAVR 4. Acute on chronic renal insufficiency 5. Anemia 6. 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 Paroxysmal SVT 8. Restrictive lung disease 9. Type 2 diabetes Respiratory status slightly improved from admission but still limited on 5L. Able to tolerate more activity. Urine output adequate with IV Bumex. Well perfused on exam but with persistent congestion Serum creatinine stable, historically responded to more aggressive diuretics. Continue to monitor. Now tolerating BiPAP at night. Referred for Trilogy at discharge. Patient still volume overloaded with right greater than left heart failure. Recent acute kidney injury seems more secondary to cardiorenal syndrome with predominantly right heart failure rather than intravascular depletion. -- Agree with continued diuresis. Continue Bumex 3 mg IV BID. Metolazone 5 mg 30 min prior to am Bumex added 06/26. Goal net negative 1-2 L per day Continue spironolactone -- Hold ARB -- Continue beta-criss Therapeutic on warfarin -- Daily *standing* weights -- Low sodium diet, less than 2,000 mg daily -- Limit fluid intake. -- PT/OT -- Continue to monitor renal function and electrolytes. -- Patient high risk for readmission, agree with prolonged hospital stay if needed to achieve euvolemia prior to discharge. Once euvolemic, recommend 24 hours on oral diuretics prior to discharge to ensure he can maintain. Continue close follow up with heart failure program. Will continue to follow during hospitalization. Today's plan was discussed with Dr. Joseph. Subjective Patient is resting comfortably in the chair. Patient reports he's feeling about the same. He states his leg edema was better when he first woke up and has increased since sitting in the chair. He has been ambulating in the hallway which is an improvement. He was able to do one lap, stopping once. He continues to have adequate response to Bumex (- 15L). Compliant with fluid restriction, denies excessive intake. Remains on 5 L supplemental oxygen. He denies worsening orthopnea. He continues to have significant lower extremity edema. Weight documented 196 lb today, patient does not recall being weighed this am. Physical Exam Physical Exam: General: Comfortable, no acute distress Eyes: Sclerae anicteric, extraocular movements intact HENT: Oropharynx clear mucous membranes moist Lungs: Decreased breath sounds at the bases, faint crackles, otherwise clear. Cardiac: Regularly irregular with likely frequent PVCs, 2 out of 6 systolic ejection murmur with crisp bioprosthetic closure Vascular: 2+ radial Abdomen: Soft, nontender, nondistended, positive bowel sounds. Extremities: Well perfused, 2+ lower extremity edema to mid jeffers Psych: Alert orient x3, normal affect and mood Results & Data Vital Signs (Past 12 Hours) Vital Signs Temp Pulse Resp BP Pulse Ox 06/26/20 09:29 64 143/58 H 06/26/20 07:43 97.7 F 53 L 18 137/55 L 98 06/25/20 23:04 97.9 F 56 L 14 131/55 L 99 PG Care Time/CCT Total # of Minutes Spent Total Time Spent with Patient: Total time spent is greater than 50% in coordination of care (as documented) at patient's floor/unit and/or counseling patient: Coding Level of Care Code 22026 Subseq Hosp Care Lvl 3 Diagnoses Acute on chronic heart failure with preserved ejection fraction I50.33
[2020-06-26] MEDS: BUMETANIDE 3 MG in SYRINGE 0 ML IV SCH ×2 (10:41→16:02)
[2020-06-26] MEDS: ENOXAPARIN 100 MG/1ML SYR SQ SCH ×2 (11:36→22:33)
[2020-06-26] MEDS: WARFARIN SOD 7.5 MG TAB PO SCH (15:57)
--- NOTE | 2020-06-26 22:46 | Hospitalist Progress Note ---
Date of Service June 26, 2020 Assessment & Plan (1) Acute on chronic heart failure with preserved ejection fraction: ongoing, still with tense edema in legs bilaterally responding to IV bumex 3mg BID, even better response with Zaroxolyn 5mg this morning negative 2 liters today, Cr is up at 1.45 standing scale daily weights. I's and O's along with fluid restriction. cont aldactone. cont BB. repeat BMP am unsure if we will get all the edema resolved, check Cr in the morning reviewed echo, EF preserved, valve working well, no signs of right heart failure (2) Thrombus of atrial appendage: INR down to 1.6, start on Lovenox, Coumadin 7.5mg daily (3) Acute kidney injury: 2nd to over-diuresis. Cr is 1.45 BMP am. cont to hold ARB. use bumex 3mg IV BID for diuresis for CHF, gave Zaroxolyn this morning (4) Muscle weakness (generalized): CPK wnl. he is walking in the hallway recent TSH, B12, etc wnl. appreciate neuro recs. (5) Acute on chronic respiratory failure with hypoxia and hypercapnia: acute component resolved - NC o2 requirement at baseline of 5 L NC. was 2nd to decompensated CHF. chronic resp failure 2nd to COPD. plan for Trilogy at home (6) Acute metabolic encephalopathy: 2nd to hypercarbia - resolved (7) COPD (chronic obstructive pulmonary disease): without exacerbation appreciate pulmonary consultation cont inhalers and nebs prn oxygen dependent Trilogy arranged at home (8) S/P TAVR (transcatheter aortic valve replacement): [facility] 04/2020 echo this admission with good valve function & gradient EF preserved (9) CAD (coronary artery disease): Cath was done at [facility] mild disease (10) Gall stones: earlier this admission there was some concern of cholecystitis based on RUQ US and a pain that he was getting inconsistently in the RUQ (pain only brought on by palpation). thus, he was placed on IV antibiotics for ?cholecystitis. I stopped antibiotics this week and observed him off of such. he has had no nausea, emesis or abd pain with eating. consuming 100% of meals w/o difficulty. I am not convinced he has acute cholecystitis but watch carefully for such. cont to follow OFF antibiotics. (11) Prediabetes: novolog ac/hs DM diet controlled (12) Hypertension: cont BB ARB held; unlikely he will need this at discharge (13) Chronic [place] [facility] [place] left atrial appendage thrombus was discovered daily INR coumadin 5mg daily (14) DVT prophylaxis: coumadin stop heparin cont PT/OT - but cleared for home Admission and Anticipated Discharge Date Admission Date: June 11, 2020 Subjective patient with less edema today in legs but it is still there he is following fluid restriction, says it is difficult, wants to drink from the faucet sometimes still eating a lot Cr 1.45. INR 1.6 he responded well to Zaroxolyn, making a lot more urine than yesterday d/w CHF clinic Review of Systems Review of Systems: All systems reviewed & are unremarkable except as noted in Subjective Cardiovascular: + dyspnea on exertion and + edema; no chest pain and no dyspnea Physical Exam Constitutional: well developed, well nourished and + edematous; no acute distress Eyes: PERRL, conjunctivae normal, anicteric sclerae ENMT: external ear and nose normal, oropharynx normal Neck: trachea midline, no thyromegaly Respiratory: normal respiratory effort, lungs clear to auscultation Auscultation: + diminished lung sounds (bases) Cardiovascular: Rate/Rhythm: regular rate and regular rhythm Heart Sounds: normal S1 and normal S2; no murmur Extremities: normal capillary refill and + edema (pitting, mid jeffers) Gastrointestinal (Abdomen): normal bowel sounds, soft, nontender, no hepatosplenomegaly Musculoskeletal: no cyanosis or clubbing, extremities motor strength 5/5 Skin: no rashes, warm and dry Neurologic: patellar DTR's 2+ bilat, sensation intact and PERRL, EOMI, accommodation nl, no face palsy, no dysarthria Psychiatric: A+Ox3, euthymic affect Lymphatic: no cervical or axillary lymphadenopathy Results & Data Results & Data ([facility]) Vital Signs (Past 12 Hours) Vital Signs Temp Pulse Pulse Resp BP Pulse Ox 06/26/20 20:39 62 132/54 L 06/26/20 15:54 36.6 C 80 18 130/55 L 94 06/26/20 13:02 92 Laboratory Results Laboratory Results - last 24 hr 06/26/20 06/26/20 06/26/20 05:11 05:11 08:22 PT 16.7 H INR 1.6 H Sodium 142 Potassium 4.9 Chloride 98 Carbon Dioxide 42 H* Anion Gap 2.0 L BUN 56 H Creatinine 1.45 H Est Cr Clr Drug Dosing 48.0 Est GFR ( Amer) 53.5 Est GFR (Non-Af Amer) 46.1 BUN/Creatinine Ratio 38.9 H Glucose 96 POC Glucose 109 H Calcium 10.2 H 06/26/20 06/26/20 06/26/20 12:04 17:07 20:30 PT INR Sodium Potassium Chloride Carbon Dioxide Anion Gap BUN Creatinine Est Cr Clr Drug Dosing Est GFR ( Amer) Est GFR (Non-Af Amer) BUN/Creatinine Ratio Glucose POC Glucose 81 109 H 176 H Calcium Medications Administered Current Inpatient Medications Acetaminophen (Tylenol) 325 mg PO QID PRN PRN Reason: pain Stop: 07/11/20 14:53 Albuterol (Duoneb) 3 ml NEB Q4R PRN PRN Reason: Shortness Of Breath Or Wheezing Stop: 07/11/20 14:59 Last Admin: 06/21/20 11:10 Dose: 3 ml Documented by: Atorvastatin Calcium (Lipitor) 80 mg PO DAILY [facility] Stop: 07/12/20 08:59 Last Admin: 06/26/20 09:25 Dose: 80 mg Documented by: Bumetanide (Bumex) 2 mg PO BID17 [facility] Stop: 07/19/20 08:59 Last Admin: 06/20/20 07:41 Dose: 2 mg Documented by: Dextrose (Dextrose 50%) 25 - 50 ml IV UD PRN; Protocol PRN Reason: Hypoglycemia Protocol Stop: 07/11/20 18:11 Docusate Sodium (Colace) 100 mg PO BID [facility] Stop: 07/11/20 20:59 Last Admin: 06/26/20 20:41 Dose: 100 mg Documented by: Enoxaparin Sodium (Lovenox) 90 mg SQ Q12H [facility] Stop: 07/26/20 10:59 Last Admin: 06/26/20 22:33 Dose: 90 mg Documented by: Escitalopram Oxalate (Lexapro Tab) 20 mg PO DAILY [facility] Stop: 07/12/20 08:59 Last Admin: 06/26/20 09:25 Dose: 20 mg Documented by: Ferrous Sulfate (Feosol) 325 mg PO BIDM [facility] Stop: 07/20/20 21:14 Last Admin: 06/26/20 16:01 Dose: 325 mg Documented by: Fluticasone/Vilanterol (Breo Ellipta 100/25 Mcg Inh) 1 puffs INH DAILY [facility]; Protocol Stop: 07/11/20 15:59 Last Admin: 06/26/20 09:24 Dose: 1 puffs Documented by: Glucagon (Glucagen) 1 mg SQ UD PRN; Protocol PRN Reason: Hypoglycemia Protocol Stop: 07/11/20 18:11 Glucose (Dex4 Glucose) 4 - 8 tabs PO UD PRN; Protocol PRN Reason: Hypoglycemia Protocol Stop: 07/11/20 18:11 Glucose (Glucose 40%) 15 - 30 gm PO UD PRN; Protocol PRN Reason: Hypoglycemia Protocol Stop: 07/11/20 18:11 Bumetanide 3 mg/ Syringe 12 mls @ 4 mls/min IV DAILY@0900,1700 [facility] Stop: 07/24/20 08:59 Last Admin: 06/26/20 16:02 Dose: 4 mls/min Documented by: Insulin Aspart (Novolog Flexpen) 0 units SC ACHS [facility] Stop: 07/11/20 20:59 Last Admin: 06/26/20 20:45 Dose: 5 units Documented by: Magnesium Oxide (Mag-Ox) 400 mg PO DAILY [facility] Stop: 07/12/20 08:59 Last Admin: 06/26/20 09:26 Dose: 400 mg Documented by: Metolazone (Zaroxolyn) 5 mg PO QAM@0830 [facility] Stop: 07/26/20 08:29 Last Admin: 06/26/20 09:23 Dose: 5 mg Documented by: Metoprolol Tartrate (Lopressor) 25 mg PO BID [facility] Stop: 07/11/20 20:59 Last Admin: 06/26/20 20:40 Dose: 25 mg Documented by: Miscellaneous (Carbohydrates For Hypoglycemia) 15 - 30 gm PO UD PRN PRN Reason: Hypoglycemia Protocol Stop: 07/11/20 18:11 Multivitamins (Multivitamin Tab) 1 tab PO DAILY [facility] Stop: 07/12/20 08:59 Last Admin: 06/26/20 09:26 Dose: 1 tab Documented by: Mupirocin (Bactroban 2%) 1 appln EXT BID [facility] Stop: 07/23/20 18:44 Last Admin: 06/26/20 20:44 Dose: Not Given Documented by: Pantoprazole Sodium (Protonix) 40 mg PO BID [facility] Stop: 07/11/20 20:59 Last Admin: 06/26/20 20:40 Dose: 40 mg Documented by: Potassium Chloride (Klor-Con M20) 20 meq PO BID [facility] Stop: 07/11/20 20:59 Last Admin: 06/26/20 20:40 Dose: 20 meq Documented by: Sodium Chloride ([place] Nasal) 2 sprays LACIE BID [facility] Stop: 07/11/20 20:59 Last Admin: 06/26/20 20:40 Dose: 2 sprays Documented by: Spironolactone (Aldactone) 25 mg PO QAM [facility] Stop: 07/14/20 08:59 Last Admin: 06/26/20 09:23 Dose: 25 mg Documented by: Warfarin Sodium (Coumadin) 7.5 mg PO DAILY@1600 [facility] Stop: 07/20/20 15:59 Last Admin: 06/22/20 17:49 Dose: 7.5 mg Documented by: Warfarin Sodium (Coumadin) 7.5 mg PO DAILY@1600 [facility] Stop: 07/26/20 15:59 Last Admin: 06/26/20 15:57 Dose: 7.5 mg Documented by: PG Care Time/CCT Total # of Minutes Spent Total Time Spent with Patient: Total time spent is greater than 50% in coordination of care (as documented) at patient's floor/unit and/or counseling patient: Coding Level of Care Code 85139 Subseq Hosp Care Lvl 2 Diagnoses Acute on chronic heart failure with preserved ejection fraction I50.33 Thrombus of atrial appendage I51.3 Acute kidney injury N17.9 Muscle weakness (generalized) M62.81 Acute on chronic respiratory failure with hypoxia and hypercapnia J96.21; J96.22 Acute metabolic encephalopathy G93.41 COPD (chronic obstructive pulmonary disease) J44.9 S/P TAVR (transcatheter aortic valve replacement) Z95.2 CAD (coronary artery disease) I25.10 Gall stones K80.20 Prediabetes R73.03 Hypertension I10 Hypertension type: essential hypertension Chronic anticoagulation Z79.01 DVT prophylaxis Z29.9 (1) Hypertension Hypertension type: essential hypertension Qualified Code(s): I10 - Essential (primary) hypertension
[2020-06-27 06:08] LABS: INR 1.6 (0.9-1.1); Prothrombin Time 16.4 Seconds (9.0-12.0)
[2020-06-27 06:53] LABS: BUN Creatinine Ratio 36.3 (10-20); Creatinine Clr Calc Pharmacy 41.4 ml/min; Est GFR (African American) 44.7; Est GFR (Non-African American) 38.6
[2020-06-27] MEDS: SPIRONOLACTONE 25 MG TAB PO SCH (08:53)
[2020-06-27] MEDS: ESCITALOPRAM OXALATE 20 MG TAB PO SCH (08:54)
[2020-06-27] MEDS: MULTIVITAMIN TAB PO SCH (08:54)
[2020-06-27] MEDS: PANTOprazole 40 MG TAB PO SCH ×2 (08:54→20:51)
[2020-06-27] MEDS: SODIUM CHLORIDE 0.65% NA SOLN 45 ML (OCEAN) NAE SCH ×2 (08:54→20:52)
[2020-06-27] MEDS: POTASSIUM CHLORIDE 20 MEQ TABCR PO SCH ×2 (08:54→20:52)
[2020-06-27] MEDS: MAGNESIUM OXIDE 400 MG TAB PO SCH (08:54)
[2020-06-27] MEDS: ATORVASTATIN 40 MG TAB PO SCH (08:54)
[2020-06-27] MEDS: DOCUSATE SODIUM 100 MG CAP PO SCH ×2 (08:54→20:52)
[2020-06-27] MEDS: FLUTICASONE/VILANTEROL 100/25MCG 14 PUFFS/INHALER INH SCH (08:55)
[2020-06-27] MEDS: MUPIROCIN 2% OINT 22 GM TUBE EXT SCH ×2 (08:55→20:52)
[2020-06-27] MEDS: FERROUS SULFATE 325 MG TAB PO SCH ×2 (08:55→17:19)
[2020-06-27] MEDS: INSULIN ASPART 100 UNITS/ML 3 ML PEN SC SCH ×4 (08:56→20:57)
[2020-06-27] MEDS: METOPROLOL TARTRATE 25 MG TAB PO SCH ×2 (09:02→20:52)
[2020-06-27] MEDS: ENOXAPARIN 100 MG/1ML SYR SQ SCH ×2 (12:43→22:06)
[2020-06-27] MEDS: WARFARIN SOD 7.5 MG TAB PO SCH (17:18)
[2020-06-27] MEDS: BUMETANIDE 1 MG TAB PO SCH (17:19)
--- NOTE | 2020-06-27 22:45 | Hospitalist Progress Note ---
Date of Service June 27, 2020 Assessment & Plan (1) Acute on chronic heart failure with preserved ejection fraction: ongoing, edema in legs, now pitting, to shins negative 2.3 liters today, Cr is up at 1.6 held morning Bumex and Zaroxolyn will resume Bumex PO this afternoon check BMP in the morning standing scale daily weights. I's and O's along with fluid restriction. cont aldactone. cont BB. unsure if we will get all the edema resolved, check Cr in the morning reviewed echo, EF preserved, valve working well, no signs of right heart failure may discharge tomorrow with close follow up with CHF clinic (2) Thrombus of atrial appendage: INR down to 1.6, start on Lovenox, Coumadin 7.5mg daily check INR in the morning (3) Acute kidney injury: 2nd to over-diuresis. Cr is 1.6 BMP am. cont to hold ARB. use bumex 3mg PO BID, hold on further Zaroxolyn due to rise in Cr (4) Muscle weakness (generalized): CPK wnl. he is walking in the hallway recent TSH, B12, etc wnl. appreciate neuro recs. (5) Acute on chronic respiratory failure with hypoxia and hypercapnia: acute component resolved - NC o2 requirement at baseline of 5 L NC. was 2nd to decompensated CHF. chronic resp failure 2nd to COPD. plan for Trilogy at home (6) Acute metabolic encephalopathy: 2nd to hypercarbia - resolved (7) COPD (chronic obstructive pulmonary disease): without exacerbation appreciate pulmonary consultation cont inhalers and nebs prn oxygen dependent Trilogy arranged at home (8) S/P TAVR (transcatheter aortic valve replacement): [facility] 04/2020 echo this admission with good valve function & gradient EF preserved (9) CAD (coronary artery disease): Cath was done at [facility] mild disease (10) Gall stones: earlier this admission there was some concern of cholecystitis based on RUQ US and a pain that he was getting inconsistently in the RUQ (pain only brought on by palpation). thus, he was placed on IV antibiotics for ?cholecystitis. I stopped antibiotics this week and observed him off of such. he has had no nausea, emesis or abd pain with eating. consuming 100% of meals w/o difficulty. I am not convinced he has acute cholecystitis but watch carefully for such. cont to follow OFF antibiotics. (11) Prediabetes: novolog ac/hs DM diet controlled (12) Hypertension: cont BB ARB held; unlikely he will need this at discharge (13) Chronic anticoagulation: started at [facility] [place] when left atrial appendage thrombus was discovered daily INR coumadin 5mg daily (14) DVT prophylaxis: coumadin stop heparin cont PT/OT - but cleared for home Admission and Anticipated Discharge Date Admission Date: June 11, 2020 Subjective patient with same amount of edema in legs Cr agnes to 1.6 today, holding Bumex and Zaroxolyn this morning d/w Suki GILMAN, unsure we can get all the edema off, may need to discharge, can follow up closely resume PO Bumex this afternoon, check BMP in AM Review of Systems Review of Systems: All systems reviewed & are unremarkable except as noted in Subjective Physical Exam Constitutional: well developed, well nourished and + edematous; no acute distress Eyes: PERRL, conjunctivae normal, anicteric sclerae ENMT: external ear and nose normal, oropharynx normal Neck: trachea midline, no thyromegaly Respiratory: normal respiratory effort, lungs clear to auscultation Auscultation: + diminished lung sounds (bases) Cardiovascular: Rate/Rhythm: regular rate and regular rhythm Heart Sounds: normal S1 and normal S2; no murmur Extremities: normal capillary refill and + edema (pitting, mid jeffers) Gastrointestinal (Abdomen): normal bowel sounds, soft, nontender, no hepatosplenomegaly Musculoskeletal: no cyanosis or clubbing, extremities motor strength 5/5 Skin: no rashes, warm and dry Neurologic: patellar DTR's 2+ bilat, sensation intact and PERRL, EOMI, accommodation nl, no face palsy, no dysarthria Psychiatric: A+Ox3, euthymic affect Lymphatic: no cervical or axillary lymphadenopathy Results & Data Results & Data ([facility]) Vital Signs (Past 12 Hours) Vital Signs Temp Pulse Pulse Resp BP BP Pulse Ox 06/27/20 20:49 64 165/61 H 06/27/20 15:05 36.6 C 57 L 16 133/55 L 98 Laboratory Results Laboratory Results - last 24 hr 06/27/20 06/27/20 06/27/20 05:42 05:42 08:06 PT 16.4 H INR 1.6 H Sodium 141 Potassium 5.0 Chloride 96 L Carbon Dioxide 43 H* Anion Gap 2.0 L BUN 61 H Creatinine 1.68 H Est Cr Clr Drug Dosing 41.4 Est GFR ( Amer) 44.7 Est GFR (Non-Af Amer) 38.6 BUN/Creatinine Ratio 36.3 H Glucose 96 POC Glucose 110 H Calcium 10.0 06/27/20 06/27/20 06/27/20 12:48 17:08 20:34 PT INR Sodium Potassium Chloride Carbon Dioxide Anion Gap BUN Creatinine Est Cr Clr Drug Dosing Est GFR ( Amer) Est GFR (Non-Af Amer) BUN/Creatinine Ratio Glucose POC Glucose 124 H 120 H 176 H Calcium Medications Administered Current Inpatient Medications Acetaminophen (Tylenol) 325 mg PO QID PRN PRN Reason: pain Stop: 07/11/20 14:53 Albuterol (Duoneb) 3 ml NEB Q4R PRN PRN Reason: Shortness Of Breath Or Wheezing Stop: 07/11/20 14:59 Last Admin: 06/21/20 11:10 Dose: 3 ml Documented by: Atorvastatin Calcium (Lipitor) 80 mg PO DAILY [facility] Stop: 07/12/20 08:59 Last Admin: 06/27/20 08:54 Dose: 80 mg Documented by: Bumetanide (Bumex) 3 mg PO BID17 [facility] Stop: 07/27/20 16:59 Last Admin: 06/27/20 17:19 Dose: 3 mg Documented by: Dextrose (Dextrose 50%) 25 - 50 ml IV UD PRN; Protocol PRN Reason: Hypoglycemia Protocol Stop: 07/11/20 18:11 Docusate Sodium (Colace) 100 mg PO BID [facility] Stop: 07/11/20 20:59 Last Admin: 06/27/20 20:52 Dose: 100 mg Documented by: Enoxaparin Sodium (Lovenox) 90 mg SQ Q12H [facility] Stop: 07/26/20 10:59 Last Admin: 06/27/20 22:06 Dose: 90 mg Documented by: Escitalopram Oxalate (Lexapro Tab) 20 mg PO DAILY [facility] Stop: 07/12/20 08:59 Last Admin: 06/27/20 08:54 Dose: 20 mg Documented by: Ferrous Sulfate (Feosol) 325 mg PO BIDM [facility] Stop: 07/20/20 21:14 Last Admin: 06/27/20 17:19 Dose: 325 mg Documented by: Fluticasone/Vilanterol (Breo Ellipta 100/25 Mcg Inh) 1 puffs INH DAILY [facility]; Protocol Stop: 07/11/20 15:59 Last Admin: 06/27/20 08:55 Dose: 1 puffs Documented by: Glucagon (Glucagen) 1 mg SQ UD PRN; Protocol PRN Reason: Hypoglycemia Protocol Stop: 07/11/20 18:11 Glucose (Dex4 Glucose) 4 - 8 tabs PO UD PRN; Protocol PRN Reason: Hypoglycemia Protocol Stop: 07/11/20 18:11 Glucose (Glucose 40%) 15 - 30 gm PO UD PRN; Protocol PRN Reason: Hypoglycemia Protocol Stop: 07/11/20 18:11 Insulin Aspart (Novolog Flexpen) 0 units SC ACHS [facility] Stop: 07/11/20 20:59 Last Admin: 06/27/20 20:57 Dose: 5 units Documented by: Magnesium Oxide (Mag-Ox) 400 mg PO DAILY [facility] Stop: 07/12/20 08:59 Last Admin: 06/27/20 08:54 Dose: 400 mg Documented by: Metoprolol Tartrate (Lopressor) 25 mg PO BID [facility] Stop: 07/11/20 20:59 Last Admin: 06/27/20 20:52 Dose: 25 mg Documented by: Miscellaneous (Carbohydrates For Hypoglycemia) 15 - 30 gm PO UD PRN PRN Reason: Hypoglycemia Protocol Stop: 07/11/20 18:11 Multivitamins (Multivitamin Tab) 1 tab PO DAILY [facility] Stop: 07/12/20 08:59 Last Admin: 06/27/20 08:54 Dose: 1 tab Documented by: Mupirocin (Bactroban 2%) 1 appln EXT BID [facility] Stop: 07/23/20 18:44 Last Admin: 06/27/20 20:52 Dose: Not Given Documented by: Pantoprazole Sodium (Protonix) 40 mg PO BID [facility] Stop: 07/11/20 20:59 Last Admin: 06/27/20 20:51 Dose: 40 mg Documented by: Potassium Chloride (Klor-Con M20) 20 meq PO BID [facility] Stop: 07/11/20 20:59 Last Admin: 06/27/20 20:52 Dose: 20 meq Documented by: Sodium Chloride ([place] Nasal) 2 sprays LACIE BID [facility] Stop: 07/11/20 20:59 Last Admin: 06/27/20 20:52 Dose: 2 sprays Documented by: Spironolactone (Aldactone) 25 mg PO QAM [facility] Stop: 07/14/20 08:59 Last Admin: 06/27/20 08:53 Dose: 25 mg Documented by: Warfarin Sodium (Coumadin) 7.5 mg PO DAILY@1600 [facility] Stop: 07/20/20 15:59 Last Admin: 06/22/20 17:49 Dose: 7.5 mg Documented by: Warfarin Sodium (Coumadin) 7.5 mg PO DAILY@1600 [facility] Stop: 07/26/20 15:59 Last Admin: 06/27/20 17:18 Dose: 7.5 mg Documented by: PG Care Time/CCT Total # of Minutes Spent Total Time Spent with Patient: Total time spent is greater than 50% in coordination of care (as documented) at patient's floor/unit and/or counseling patient: Coding Level of Care Code 56425 Subseq Hosp Care Lvl 2 Diagnoses Acute on chronic heart failure with preserved ejection fraction I50.33 Thrombus of atrial appendage I51.3 Acute kidney injury N17.9 Muscle weakness (generalized) M62.81 Acute on chronic respiratory failure with hypoxia and hypercapnia J96.21; J96.22 Acute metabolic encephalopathy G93.41 COPD (chronic obstructive pulmonary disease) J44.9 S/P TAVR (transcatheter aortic valve replacement) Z95.2 CAD (coronary artery disease) I25.10 Gall stones K80.20 Prediabetes R73.03 Hypertension I10 Hypertension type: essential hypertension Chronic anticoagulation Z79.01 DVT prophylaxis Z29.9 (1) Hypertension Hypertension type: essential hypertension Qualified Code(s): I10 - Essential (primary) hypertension
[2020-06-28 06:02] LABS: Prothrombin Time 20.3 Seconds (9.0-12.0)
[2020-06-28 06:29] LABS: BUN Creatinine Ratio 37.6 (10-20); Calcium 10.1 mg/dl (8.5-10.1); Creatinine Clr Calc Pharmacy 43.7 ml/min; Est GFR (African American) 47.8; Est GFR (Non-African American) 41.3; Potassium 4.3 mmol/L (3.5-5.1)
[2020-06-28] MEDS: FLUTICASONE/VILANTEROL 100/25MCG 14 PUFFS/INHALER INH SCH (09:35)
[2020-06-28] MEDS: MUPIROCIN 2% OINT 22 GM TUBE EXT SCH (09:35)
[2020-06-28] MEDS: FERROUS SULFATE 325 MG TAB PO SCH (09:35)
[2020-06-28] MEDS: SPIRONOLACTONE 25 MG TAB PO SCH (09:35)
[2020-06-28] MEDS: METOPROLOL TARTRATE 25 MG TAB PO SCH (09:36)
[2020-06-28] MEDS: BUMETANIDE 1 MG TAB PO SCH (09:36)
[2020-06-28] MEDS: MULTIVITAMIN TAB PO SCH (09:36)
[2020-06-28] MEDS: ESCITALOPRAM OXALATE 20 MG TAB PO SCH (09:36)
[2020-06-28] MEDS: PANTOprazole 40 MG TAB PO SCH (09:36)
[2020-06-28] MEDS: SODIUM CHLORIDE 0.65% NA SOLN 45 ML (OCEAN) NAE SCH (09:36)
[2020-06-28] MEDS: ATORVASTATIN 40 MG TAB PO SCH (09:36)
[2020-06-28] MEDS: MAGNESIUM OXIDE 400 MG TAB PO SCH (09:36)
[2020-06-28] MEDS: DOCUSATE SODIUM 100 MG CAP PO SCH (09:36)
[2020-06-28] MEDS: POTASSIUM CHLORIDE 20 MEQ TABCR PO SCH (09:36)
[2020-06-28] MEDS: INSULIN ASPART 100 UNITS/ML 3 ML PEN SC SCH ×2 (09:37→12:55)
--- NOTE | 2020-06-28 11:21 | XRay Report ---
TWO VIEW CHEST CLINICAL HISTORY: Congestive heart failure. Pleural effusions. FINDINGS: PA and lateral chest radiographs are compared to study dated 06/21/2020. The heart is enlarg ed noting atherosclerotic calcification of the thoracic ureter. There is evidence of aortic valve raj aliza. There is mild pulmonary vascular congestion. There are small to moderate pleural effusions, lef t larger than right with bibasilar consolidation. There is no pneumothorax. The skeletal structures a re osteopenic. The bony thorax appears intact. IMPRESSION: 1. Cardiomegaly with mild pulmonary vascular congestion. 2. Left larger right pleural effusions with associated consolidation. These are similar to 06/21/2020. ACT 112: Negative or not required by law. Electronically signed by: Arun Christensen M.D. 06/28/2020 11:20 AM
--- NOTE | 2020-06-28 14:59 | Heart Failure Progress Note ---
Date of Service June 28, 2020 Assessment & Plan (1) Acute on chronic heart failure with preserved ejection fraction: 2. Hypoxemic and hypercarbic respiratory failure, secondary to acute diastolic CHF. 3. Prior severe aortic stenosis post TAVR 4. Acute on chronic renal insufficiency 5. Anemia 6. 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 Paroxysmal SVT 8. Restrictive lung disease 9. Type 2 diabetes Respiratory status slightly improved from admission but still limited on 5L. Able to tolerate more activity. RT doing 2 step at the time of my visit. Urine output adequate with PO Bumex. Well perfused on exam but with persistent congestion Serum creatinine stable. Now tolerating BiPAP at night. Referred for Trilogy at discharge. -- Bumex 3 mg BID at discharge. Anticipate continued diuresis as an outpatient. Continue spironolactone -- Hold ARB -- Continue beta-criss Therapeutic on warfarin -- Daily *standing* weights at discharge. Advised to notify CHF program for any weight gain. -- Low sodium diet, less than 2,000 mg daily -- Limit fluid intake. -- [facility] Continue close follow up with heart failure program. Anticipate phone call update Monday 07/02. Office follow up scheduled for 07/05/20. Will need BMP/magnesium/ProBNP with HH prior to visit. Recommend close follow up with Dr. Hensley as well. Today's plan was discussed with Dr. Joseph. Subjective Patient is resting comfortably in the chair. Patient reports he's feeling about the same. He continues to have lower extremity edema. Chest xray similar to 06/21. He continues to have adequate response to Bumex (- 19L). Compliant with fluid restriction, denies excessive intake. Remains on 5 L supplemental oxygen. He denies worsening orthopnea. Weight documented 195 lb today. Physical Exam Physical Exam: General: Comfortable, no acute distress Eyes: Sclerae anicteric, extraocular movements intact HENT: Oropharynx clear mucous membranes moist Lungs: Decreased breath sounds at the bases, faint crackles, otherwise clear. Cardiac: Regularly irregular with likely frequent PVCs, 2 out of 6 systolic ejection murmur with crisp bioprosthetic closure Vascular: 2+ radial Abdomen: Soft, nontender, nondistended, positive bowel sounds. Extremities: Well perfused, 2+ lower extremity edema to mid jeffers Psych: Alert orient x3, normal affect and mood Results & Data Vital Signs (Past 12 Hours) Vital Signs Temp Pulse Pulse Pulse Pulse Pulse Pulse 06/28/20 13:53 98.2 F 56 L 42 L 06/28/20 13:40 56 L 60 66 69 06/28/20 07:26 98.2 F 42 L Pulse Pulse Pulse Pulse Resp Resp Resp 06/28/20 13:53 64 54 L 16 06/28/20 13:40 66 66 16 18 06/28/20 07:26 16 Resp Resp Resp Resp BP BP Pulse Ox 06/28/20 13:53 127/61 122/59 L 96 06/28/20 13:40 18 18 18 16 06/28/20 07:26 127/61 96 Pulse Ox Pulse Ox Pulse Ox Pulse Ox Pulse Ox Pulse Ox 06/28/20 13:53 06/28/20 13:40 88 L 91 95 86 L 97 75 L 06/28/20 07:26 PG Care Time/CCT Total # of Minutes Spent Total Time Spent with Patient: Total time spent is greater than 50% in coordination of care (as documented) at patient's floor/unit and/or counseling patient: Coding Level of Care Code 88308 Subseq Hosp Care Lvl 3 Diagnoses Acute on chronic heart failure with preserved ejection fraction I50.33
== END 2020-06-28 14:56 | disposition home or self-care (01) | DRG 291 ==
LOC: ED 09:45 → 2S 13:20 → SUATTDRO 13:20 → 2S 14:10 → 3W 06-15 12:29

== ENCOUNTER 2020-10-01 19:11 | Inpatient (IN) ==
[2020-10-01] MEDS ORDERED: SODIUM CHLORIDE 0.9% 250 ML IV PRN (19:45)
[2020-10-01] MEDS ORDERED: PANTOprazole 80 MG in DEXTROSE 5% 100 ML IV ONE (19:49)
[2020-10-01] MEDS ORDERED: PHYTONADIONE 5 MG in SODIUM CHLORIDE 0.9% 50 ML IV ONE (19:52)
--- NOTE | 2020-10-01 19:57 | Emergency Department Note ---
History of Present Illness General Chief complaint: Abnormal Labs/Diagnostic Testing Stated complaint: iron is low Time Seen by Provider: 10/01/20 19:38 History of Present Illness Provider complaint: Low hemoglobin Onset (ago): day(s) 1 75-year-old male presents emergency department for low hemoglobin level. He states his PCP called him today and told him to come to the emergency department after he had blood work done this afternoon. He reports dark stools but states he is on iron. He states he has history of multiple transfusions. Patient is on Coumadin. Home Medications Home Medications Medication Instructions Recorded Confirmed Type atorvastatin 80 mg tablet 80 mg PO DAILY 05/20/20 10/01/20 History escitalopram oxalate 20 mg tablet 20 mg PO DAILY 05/20/20 10/01/20 History lorazepam 0.5 mg tablet 0.5 mg PO DAILY PRN 05/20/20 10/01/20 History magnesium 250 mg tablet 250 mg PO DAILY 05/20/20 10/01/20 History pantoprazole 40 mg tablet,delayed 40 mg PO BID tab 05/20/20 10/01/20 History release potassium chloride 20 mEq 20 meq PO BID 05/20/20 10/01/20 History tablet,extended release multivitamin 1 tab PO DAILY 05/21/20 10/01/20 History warfarin 5 mg tablet 5 mg PO Q OTHER DAY 05/21/20 10/01/20 History metoprolol tartrate 25 mg tablet 25 mg PO BID #60 tab 06/04/20 10/01/20 Rx calcium carbonate 600 mg calcium 600 mg PO BID tab 06/10/20 10/01/20 History (1,500 mg) tablet docusate sodium 100 mg capsule 100 mg PO BID 06/10/20 10/01/20 History sodium chloride 0.65 % nasal spray 2 sprays INTNAS BID ml 06/10/20 10/01/20 History aerosol acetaminophen 325 mg capsule 325 mg PO QID PRN 06/11/20 10/01/20 History ferrous sulfate 325 mg (65 mg 325 mg PO BID tab 08/01/20 10/01/20 History iron) tablet bumetanide 2 mg tablet 4 mg PO BID tab 08/19/20 10/01/20 History ipratropium 0.5 mg-albuterol 3 mg 3 ml INHALATION Q8H PRN #180 ml 08/22/20 10/01/20 Rx (2.5 mg base)/3 mL nebulization soln fluticasone fur. 100 mcg-umeclid 1 inh INHALATION DAILY #60 ea 08/26/20 10/01/20 Rx 62.5 mcg-vilant 25 mcg inhalat.powder spironolactone 25 mg tablet 25 mg PO BID 30 Days #60 tab 09/30/20 10/01/20 Rx metolazone 2.5 mg PO Q OTHER DAY PRN 10/01/20 10/01/20 History warfarin 7.5 mg PO Q OTHER DAY 10/01/20 10/01/20 History Allergies Allergy/AdvReac Type Severity Reaction Status Date / Time No Known Drug Allergies Allergy Verified 09/26/20 14:40 Past Med/Surg History Medical History (Updated 10/02/20 @ 02:58 by Bill Montana) Anemia Aortic stenosis severe asymptomatic Chronic obstructive pulmonary disease OXYGEN 5L/MIN NC HS Chronic shortness of breath Dependent edema PRN diuretics History of carotid artery disease S/P L CEA 2013 History of GI bleed Hypertension Tobacco use disorder Surgical History History of appendectomy History of cataract surgery BILAT History of colonoscopy History of esophagogastroduodenoscopy (EGD) History of left-sided carotid endarterectomy 2013 History of tonsillectomy History of tooth extraction Toenail avulsion REMOVAL OF Family History Father Hypertension Social History Smoking Status: Former smoker Second Hand Exposure: Yes; Do You Dip or Chew Tobacco: No; Hx Alcohol Use: No Hx Substance Use: No Preferred Language: Ivorian Communication Ability: Effective Visual Impairment: No Limitations Security Patrol Officer Required: No Beliefs That Will Affect Care: None marital status: Current Living Situation: Spouse Other Information That Helps Us Care for You: No Feels Safe at Home: Yes Assistive Devices: Oxygen - Continuous Review of Systems A total of 10 systems reviewed and were otherwise negative Physical Exam Vital Signs Vital Signs - 24 hr 10/01/20 19:35 10/01/20 19:45 10/01/20 19:47 Temperature 37.2 C Temperature Source Oral Pulse Rate 66 75 74 Pulse Rate from SpO2 Sensor 75 74 Respiratory Rate 20 24 24 Respiratory Effort / Characteristics Non-Labored Spontaneous Respiratory Depth Normal Blood Pressure 115/63 119/24 L Blood Pressure Mean 80 69 Blood Pressure Position Pulse Oximetry 99 94 97 Oxygen Delivery Method Nasal Cannula Nasal Cannula Nasal Cannula Oxygen Flow Rate 2 2 2 Sepsis New/Unexplained Change in Mental Status N/A Sepsis Action Taken by Nursing No Action Required 10/01/20 20:00 10/01/20 20:01 10/01/20 20:15 Temperature Temperature Source Pulse Rate 70 76 Pulse Rate from SpO2 Sensor 70 76 Respiratory Rate 20 21 Respiratory Effort / Characteristics Respiratory Depth Blood Pressure 141/49 H Blood Pressure Mean 82 Blood Pressure Position Pulse Oximetry 99 99 100 Oxygen Delivery Method Nasal Cannula Nasal Cannula Nasal Cannula Oxygen Flow Rate 2 2 2 Sepsis New/Unexplained Change in Mental Status Sepsis Action Taken by Nursing 10/01/20 20:30 10/01/20 20:45 10/01/20 21:26 Temperature 36.9 C Temperature Source Oral Pulse Rate 71 71 72 Pulse Rate from SpO2 Sensor 71 71 Respiratory Rate 23 21 20 Respiratory Effort / Characteristics Respiratory Depth Blood Pressure 129/46 L 134/50 L 129/65 Blood Pressure Mean 78 82 86 Blood Pressure Position Sitting Pulse Oximetry 100 99 96 Oxygen Delivery Method Nasal Cannula Oxygen Flow Rate 2 2 Sepsis New/Unexplained Change in Mental Status Sepsis Action Taken by Nursing 10/01/20 21:45 10/01/20 22:00 10/01/20 22:30 Temperature 36.7 C 36.8 C 36.7 C Temperature Source Oral Oral Oral Pulse Rate 75 81 76 Pulse Rate from SpO2 Sensor Respiratory Rate 18 22 22 Respiratory Effort / Characteristics Respiratory Depth Blood Pressure 124/50 L 143/49 H 110/46 L Blood Pressure Mean 74 80 67 Blood Pressure Position Sitting Sitting Lying Pulse Oximetry 95 94 96 Oxygen Delivery Method Oxygen Flow Rate 3 3 Sepsis New/Unexplained Change in Mental Status Sepsis Action Taken by Nursing Physical Exam HENT: Exam performed. - Head: Normocephalic and atraumatic. - Right Ear: External ear normal. No mastoid tenderness. - Left Ear: External ear normal. No mastoid tenderness. - Mouth/Throat: The oropharynx is clear and moist. No trismus in the jaw. No dental abscesses or uvula swelling. No oropharyngeal exudate or tonsillar abscesses. EYES: Conjunctivae and EOM are normal. Pupils are equal, round, and reactive to light. Right eye exhibits no discharge. Left eye exhibits no discharge. No scleral icterus. NECK: Normal range of motion. Neck supple. No JVD present. No spinous process tenderness present. No carotid bruit present. No rigidity. No tracheal deviation and normal range of motion present. No Brudzinski's sign and no Kernig's sign noted. CV: Normal rate, regular rhythm, systolic murmur. intact distal pulses. There is no peripheral edema. Palpable radial pulses bue. PULM/CHEST: Rhonchi bilaterally. - Chest Wall: He exhibits no tenderness. ABD: The abdomen is soft. Bowel sounds are normal. He has no distension. No mass is present. There is no tenderness. There is no rebound, no guarding, no Guadalupe's sign and no tenderness at McBurney's point. Rovsig negative. Rectal: Melanotic stool. Hemoccult positive. MUSC/SKEL: Normal range of motion. There is no peripheral edema, tenderness or deformity. LYMPH: No cervical adenopathy. NEURO: He is alert and oriented to person, place, and time. He has normal strength. No cranial nerve deficit or sensory deficit. Coordination and gait normal. GCS eye subscore is 4. GCS verbal subscore is 5. GCS motor subscore is 6. Cerebellar tests wnl. SKIN: Skin is warm and dry. He is not pale. PSYCH: He has a normal mood and affect. Behavior is normal. Judgment and thought content normal. Course Course 1937: The patient was evaluated in room B12. A complete history and physical exam was performed. Cardiac monitoring: An order was placed for continuous cardiac monitoring. The monitor shows a rate of 70 with sinus rhythm EMR reviewed reviewed. Patient has a blood work done today which showed a hemo globin of 5.1 and an INR of 4.9. Patient is Hemoccult positive. Protonix bolus and drip ordered. Vitamin K 5 mg IV ordered. 2 units packed red blood cells ordered. [facility]ered Medications Pantoprazole Sodium 40 mg/ (Dextrose) 100 mls @ 20 mls/hr IV Q5H MARZENA Stop: 10/31/20 19:59 Last Admin: 10/02/20 00:41 Dose: 8 mg/hr, 20 mls/hr Documented by: [id number] Infusion: 10/02/20 00:41 Dose: 8 mg/hr, 20 mls/hr Documented by: [id number] Admin: 10/01/20 20:31 Dose: 8 mg/hr, 20 mls/hr Documented by: [id number] Discontinued Medications Pantoprazole Sodium 80 mg/ (Dextrose) 120 mls @ 400 mls/hr IV NOW ONE Stop: 10/01/20 20:06 Last Infusion: 10/01/20 20:27 Dose: 0 mls/hr Documented by: [id number] Admin: 10/01/20 20:09 Dose: 400 mls/hr Documented by: [id number] Phytonadione 5 mg/ Sodium (Chloride) 50.5 mls @ 101 mls/hr IV ONE ONE Stop: 10/01/20 20:21 Last Infusion: 10/01/20 21:01 Dose: 0 mls/hr Documented by: [id number] Admin: 10/01/20 20:31 Dose: 101 mls/hr Documented by: [id number] Phytonadione (Phytonadione 5 Mg Tab) 5 mg PO NOW STA Stop: 10/02/20 00:29 Last Admin: 10/02/20 00:41 Dose: 5 mg Documented by: [id number] Critical Care Time Critical Care Time: Yes Total Critical Care Time: 37 I have personally spent greater than 37 minutes of critical care time in the direct management of this patient. This includes bedside care, interpretation of diagnostic studies, and testing, discussion with consultants, patient, and family members, and other required patient management activities. This 37 minutes is in excess of all separately billable procedures. Medical Decision Making Laboratory Data Result diagrams: 10/01/20 19:57 10/01/20 19:57 Lab Results 10/01/20 10/01/20 10/01/20 Range/Units 19:57 19:57 19:57 WBC 6.75 (4.8-10.8) K/uL RBC 1.82 L (4.7-6.1) M/uL Hgb 5.1 L* (14.0-18.0) g/dL Hct 18.6 L* (42-52) % MCV 102.2 H (80-100) fL MCH 28.0 (25-34) pg MCHC 27.4 L (32-36) g/dL RDW Std Deviation 74.4 H (36.4-46.3) fL RDW Coeff of Vesta 20.1 H (11.5-14.5) % Plt Count 387 (130-400) K/uL MPV 8.9 (7.4-10.4) fL Immature Gran % (Auto) 0.0 % Neut % (Auto) 73.3 % Lymph % (Auto) 18.4 % [place] % (Auto) 5.0 % Eos % (Auto) 3.0 % Baso % (Auto) 0.3 % Neut # (Auto) 4.95 (1.4-6.5) K/uL Lymph # (Auto) 1.24 (1.2-3.4) K/uL Charlotte # (Auto) 0.34 (0.11-0.59) K/uL Eos # (Auto) 0.20 (0-0.5) K/uL Baso # (Auto) 0.02 (0-0.2) K/uL Immature Gran # (Auto) 0.00 (0.00-0.02) K/uL Polychromasia 1+ Hypochromasia Present Anisocytosis Present PT 52.4 H (9.0-12.0) Seconds INR 5.4 H (0.9-1.1) APTT 41.6 H (21.0-31.0) Seconds PTT Ratio 1.5 Sodium (136-145) mmol/L Potassium (3.5-5.1) mmol/L Chloride (98-107) mmol/L Carbon Dioxide (21-32) mmol/L Anion Gap (3-11) BUN (7-18) mg/dl Creatinine (0.6-1.4) mg/dl Est Cr Clr Drug Dosing Est GFR ( Amer) Est GFR (Non-Af Amer) BUN/Creatinine Ratio (10-20) Glucose (70-99) mg/dl Calcium (8.5-10.1) mg/dl Total Bilirubin (0.2-1) mg/dl Direct Bilirubin (0-0.2) mg/dl AST (15-37) U/L ALT (12-78) U/L Alkaline Phosphatase (45-117) U/L Total Protein (6.4-8.2) gm/dl Albumin (3.4-5.0) gm/dl Lipase (73-393) U/L Blood Type O Positive Antibody Screen NEGATIVE Crossmatch See Detail 10/01/20 Range/Units 19:57 WBC (4.8-10.8) K/uL RBC (4.7-6.1) M/uL Hgb (14.0-18.0) g/dL Hct (42-52) % MCV (80-100) fL MCH (25-34) pg MCHC (32-36) g/dL RDW Std Deviation (36.4-46.3) fL RDW Coeff of Vesta (11.5-14.5) % Plt Count (130-400) K/uL MPV (7.4-10.4) fL Immature Gran % (Auto) % Neut % (Auto) % Lymph % (Auto) % Charlotte % (Auto) % Eos % (Auto) % Baso % (Auto) % Neut # (Auto) (1.4-6.5) K/uL Lymph # (Auto) (1.2-3.4) K/uL Charlotte # (Auto) (0.11-0.59) K/uL Eos # (Auto) (0-0.5) K/uL Baso # (Auto) (0-0.2) K/uL Immature Gran # (Auto) (0.00-0.02) K/uL Polychromasia Hypochromasia Anisocytosis PT (9.0-12.0) Seconds INR (0.9-1.1) APTT (21.0-31.0) Seconds PTT Ratio Sodium 139 (136-145) mmol/L Potassium 4.0 (3.5-5.1) mmol/L Chloride 93 L (98-107) mmol/L Carbon Dioxide 49 H* (21-32) mmol/L Anion Gap -3.0 L (3-11) BUN 33 H (7-18) mg/dl Creatinine 1.50 H (0.6-1.4) mg/dl Est Cr Clr Drug Dosing Not Reportable Est GFR ( Amer) 51.3 Est GFR (Non-Af Amer) 44.3 BUN/Creatinine Ratio 22.0 H (10-20) Glucose 79 (70-99) mg/dl Calcium 9.5 (8.5-10.1) mg/dl Total Bilirubin 0.2 (0.2-1) mg/dl Direct Bilirubin 0.1 (0-0.2) mg/dl AST 19 (15-37) U/L ALT 19 (12-78) U/L Alkaline Phosphatase 63 (45-117) U/L Total Protein 6.6 (6.4-8.2) gm/dl Albumin 3.1 L (3.4-5.0) gm/dl Lipase 118 (73-393) U/L Blood Type Antibody Screen Crossmatch ECG Data Indication: + weakness Rate (beats per minute): 70 Rhythm: + normal sinus ECG Intervals/blocks: + First degree AV block, + Normal QRS and + Normal QT-c ECG ST segments: + Normal ST segments MDM Narrative 1938: The patient was evaluated in room B12. A complete history and physical exam was performed. Cardiac monitoring: An order was placed for continuous cardiac monitoring. The monitor shows a rate of 70 with sinus rhythm EMR reviewed reviewed. Patient has a blood work done today which showed a hem oglobin of 5.1 and an INR of 4.9. Patient is Hemoccult positive. Protonix bolus and drip ordered. Vitamin K 5 mg IV ordered. 2 units packed red blood cells ordered. [facility] Imp[facility] & Plan Acute GI bleeding Discharge Plan Visit Data Chief Complaint: Abnormal Labs/Diagnostic Testing Stated Complaint: iron is low ED Provider: Bill Montana Discharge Problem: Acute GI bleeding Patient Disposition: Admitted As Inpatient Discharge Instructions Interventions: ED Discharge Assessment Last Done: 10/01/20 23:59
--- NOTE | 2020-10-01 20:09 | XRay Report ---
XR chest 1V portable CLINICAL HISTORY: Shortness of breath COMPARISON STUDY: 09/25/2020 FINDINGS: The heart remains enlarged. There are bilateral pleural effusions left larger than right. T here are bibasilar airspace opacities, likely representing compressive atelectasis although a left ba silar pneumonia cannot be excluded. There is persistent elevation of the interstitium consistent with pulmonary vascular congestion/fluid overload.[ IMPRESSION: 1. Cardiomegaly and persistent radiographic evidence of congestive failure/fluid overload 2. Persistent bilateral pleural effusions left larger than right with associated basilar atelectasis/ consolidation ACT 112: Negative or not required by law. Electronically signed by: Farhat Goff M.D. 10/01/2020 8:07 PM
[2020-10-01 20:13] LABS: Hematocrit (blood only) 18.6 % (42-52); Hemoglobin 5.1 g/dL (14.0-18.0); Mean Corpuscular Hgb Conc 27.4 g/dL (32-36); Mean Corpuscular Volume 102.2 fL (80-100); Mean Platelet Volume 8.9 fL (7.4-10.4); Platelet Count 387 K/uL (130-400); RDW Coefficient of Variation 20.1 % (11.5-14.5); RDW Standard Deviation 74.4 fL (36.4-46.3); Red Blood Count 1.82 M/uL (4.7-6.1); White Blood Count 6.75 K/uL (4.8-10.8)
[2020-10-01 20:27] LABS: INR 5.4 (0.9-1.1); Partial Thromboplastin Ratio 1.5; Partial Thromboplastin Time 41.6 Seconds (21.0-31.0); Prothrombin Time 52.4 Seconds (9.0-12.0)
[2020-10-01 20:31] LABS: Albumin Level 3.1 gm/dl (3.4-5.0); Aspartate Aminotransferase 19 U/L (15-37); Bilirubin Direct 0.1 mg/dl (0-0.2); Blood Urea Nitrogen 33 mg/dl (7-18); Calcium 9.5 mg/dl (8.5-10.1); Chloride 93 mmol/L (98-107); Est GFR (African American) 51.3; Est GFR (Non-African American) 44.3; Glucose 79 mg/dl (70-99); Lipase 118 U/L (73-393); Sodium 139 mmol/L (136-145)
[2020-10-01] MEDS: PANTOprazole 40 MG in DEXTROSE 5% 100 ML IV SCH (20:31)
[2020-10-01 20:35] LABS: Anisocytosis Present; Basophils # (auto) 0.02 K/uL (0-0.2); Basophils % (auto) 0.3 %; Hypochromasia Present; Lymphocytes # (auto) 1.24 K/uL (1.2-3.4); Lymphocytes % (auto) 18.4 %; Monocytes # (auto) 0.34 K/uL (0.11-0.59); Neutrophils # (auto) 4.95 K/uL (1.4-6.5); Neutrophils % (auto) 73.3 %; Polychromasia 1+
[2020-10-01 20:36] LABS: Total Protein 6.6 gm/dl (6.4-8.2)
--- NOTE | 2020-10-01 21:01 | History & Physical Report ---
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 Symptomatic anemia 2/2 GI bleed Patient with dark stools chronically, on iron replacement - EGD 2018: No ulcerations/bleeds appreciated. 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 F/u [place] with same lesions, tx with fulguration ablation. -GI consulted Hemoglobin acutely decreased to 5.1. 2 unit blood transfusion pending. H&H 2 hours after transfusion complete. Continue Protonix PPI N.p.o. Macrocytic B12/folate pending B12 plus folate repletion History of heart failure with CAD/STEMI High-output cardiac failure Transfusion as above Creatinine elevated, likely due to poor forward flow Antihypertensives held Continue colloid support as above, -Diuresis or Lasix plus albumin diuresis once blood pressure stable AVR - INR supratherapeutic, 5.4 - Hold warfarin. Vitamin K 5 mg given in ED, additional 5 mg given on transfer INR daily - Murmur appreciated on exam COPD - Continue OIL PRODUCER inhalers - Duonebs PRN Anxiety - Continue lexapro DVT prophylaxis: SCDs, pharmacal prophylaxis contraindicated in the setting of bleed Disposition: PCU Diet: N.p.o. CODE STATUS: DNR/DNI, but Would want to discuss or trial of intubation for declining respiratory status (2) COPD with emphysema: (3) Bilateral pleural effusion: (4) Chronic respiratory failure with hypoxia: (5) Restrictive lung disease: (6) Exertional shortness of breath: (7) Acute kidney injury: (8) Prediabetes: History of Present Illness Primary Care Provider: Robert Owen MD Mr. oLbo was brought in by his today. He has a PCP appt with Dr. Pete Castaneda. His iron levels and blood levels were down to 5 and was told by his PCP to come to the hospital. He had blood drawn because he was feeling more sluggish than usual. Mr. Lobo reports he has been feeling sluggish since having a heart attack in March 2020. He felt like after his heart attack he recovered a bit, but continued to be tired with a Hgb of 8 and started taking iron. In the last few weeks he feels his energy has been the same. Denies chest pain or chest pressure. Has not passed out, but has felt close when walking without oxygen. He is on 2L normally but has had to increase it to 5L due to fatigue. He is not short of breath layign in bed, but becomes extremely short of breath after 10 steps. He has a history of COPD and tobacco use, no recent wheezing. He reports his bowel movements have been dark since he started iron tablets. The have been 'voluminous and rather large, solid' and has been taking colace BID which seems to help. He has not noticed any texture or color changes inthe last few weeks. 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 No nausea or vomiting. When he takes morning pills without food in his stomach he can get a little nauseus, but reports that passes and does not recurr throughout the day. Urination: He has been peeing more fluid pills than normal. Is going every half hour to hour. Spironolactone was doubled Aug 31 for weight gain. Dry weight thought to be ~182-185. He is 187 today. He notes his weight changes with fluid intake. He has 10lbs or weight gain in the last week after drinkning fluid from being thirsty. Avoids salt. NO soup lately. Seen Dr. Burrell in the past. MEds: Doesn't know by heart. Just started trelogy. Alelrgies: NKDA MEdHx: Reviewed Tobacco: No tobacco products. No alchol. No recreational drugs. Lives at home with his with 50 year old son and 14 year old son. Noone sick in the home. COVID: No exposures pt knows of. Allergies Allergy/AdvReac Type Severity Reaction Status Date / Time No Known Drug Allergies Allergy Verified 09/26/20 14:40 Home Medications Home Medications Medication Instructions Recorded Confirmed Type atorvastatin 80 mg tablet 80 mg PO DAILY 05/20/20 10/01/20 History escitalopram oxalate 20 mg tablet 20 mg PO DAILY 05/20/20 10/01/20 History lorazepam 0.5 mg tablet 0.5 mg PO DAILY PRN 05/20/20 10/01/20 History magnesium 250 mg tablet 250 mg PO DAILY 05/20/20 10/01/20 History pantoprazole 40 mg tablet,delayed 40 mg PO BID tab 05/20/20 10/01/20 History release potassium chloride 20 mEq 20 meq PO BID 05/20/20 10/01/20 History tablet,extended release multivitamin 1 tab PO DAILY 05/21/20 10/01/20 History warfarin 5 mg tablet 5 mg PO Q OTHER DAY 05/21/20 10/01/20 History metoprolol tartrate 25 mg tablet 25 mg PO BID #60 tab 06/04/20 10/01/20 Rx calcium carbonate 600 mg calcium 600 mg PO BID tab 06/10/20 10/01/20 History (1,500 mg) tablet docusate sodium 100 mg capsule 100 mg PO BID 06/10/20 10/01/20 History sodium chloride 0.65 % nasal spray 2 sprays INTNAS BID ml 06/10/20 10/01/20 History aerosol acetaminophen 325 mg capsule 325 mg PO QID PRN 06/11/20 10/01/20 History ferrous sulfate 325 mg (65 mg 325 mg PO BID tab 08/01/20 10/01/20 History iron) tablet bumetanide 2 mg tablet 4 mg PO BID tab 08/19/20 10/01/20 History ipratropium 0.5 mg-albuterol 3 mg 3 ml INHALATION Q8H PRN #180 ml 08/22/20 10/01/20 Rx (2.5 mg base)/3 mL nebulization soln fluticasone fur. 100 mcg-umeclid 1 inh INHALATION DAILY #60 ea 08/26/20 10/01/20 Rx 62.5 mcg-vilant 25 mcg inhalat.powder spironolactone 25 mg tablet 25 mg PO BID 30 Days #60 tab 09/30/20 10/01/20 Rx metolazone 2.5 mg PO Q OTHER DAY PRN 10/01/20 10/01/20 History warfarin 7.5 mg PO Q OTHER DAY 10/01/20 10/01/20 History Past Med/Surg History Medical History Anemia Aortic stenosis severe asymptomatic Chronic obstructive pulmonary disease OXYGEN 5L/MIN NC HS Chronic shortness of breath Dependent edema PRN diuretics History of carotid artery disease S/P L CEA 2013 History of GI bleed Hypertension Tobacco use disorder Surgical History History of appendectomy History of cataract surgery BILAT History of colonoscopy History of esophagogastroduodenoscopy (EGD) History of left-sided carotid endarterectomy 2013 History of tonsillectomy History of tooth extraction Toenail avulsion REMOVAL OF Family History Father Hypertension Social History Smoking Status: Former smoker Second Hand Exposure: Yes; Do You Dip or Chew Tobacco: No; Hx Alcohol Use: No Hx Substance Use: No Preferred Language: Burkinan Communication Ability: Effective Visual Impairment: No Limitations Rn Cvicu Required: No Beliefs That Will Affect Care: None marital status: Current Living Situation: Spouse Other Information That Helps Us Care for You: No Feels Safe at Home: Yes Assistive Devices: None Review of Systems Review of Systems: All systems reviewed & are unremarkable except as noted in HPI & below Physical Exam Physical Exam: General: A&Ox3. NAD. Cooperative. Appears fatigued. HEENT: Atraumatic, normocephalic. Pallor present. Visual acuity grossly intact, hearing grossly intact. Pulm: CTAB A&P. -wheezes, -rales, -rhonchi. Symmetrical chest rise. No increased work of breathing. No respiratory distress. Cardiac: Systolic murmur present. Radial pulses intact and symmetrical. no JVD Abdominal: Nontender, nondistended, soft. BS present. Extremities: 2+ edema through the ankles and calf bilat. Training Program Developer strength in ankle plantarflexion/dorsiflexion grossly intact. Results & Data Results & Data ([facility]) Vital Signs (Past 12 Hours) Vital Signs Temp Pulse Resp BP Pulse Ox 10/01/20 20:30 71 23 129/46 L 100 10/01/20 20:15 76 21 141/49 H 100 10/01/20 20:01 99 10/01/20 20:00 70 20 99 10/01/20 19:47 74 24 97 10/01/20 19:45 75 24 119/24 L 94 10/01/20 19:35 37.2 C 66 20 115/63 99 Supervising Physician Co-Signing Physician Notes Attending addendum: I have physically seen this patient, have supervised the medical residents activities, and agree with the H&P unless as otherwise noted. Assessment and Plan: Symptomatic anemia secondary to GI bleed- Hemoglobin in the patient setting was found to be low, patient was referred to the ED. Hemoglobin 5.1 upon admission. NPO IV fluids Protonix IV Transfusing 2 units PRBCs ordered by the ED H&H every 6 hours Check iron, B12 and folate levels. Consult gastroenterology Acute on chronic CHF/CAD/history of STEMI/history of TAVR on chronic warfarin- INR 5.4 upon admission To receive additional 5 mg vitamin K IV above the 5 mg already ordered from the ED. Follow serial PT/INR High-output congestive heart failure. We will give Lasix 40 IV in between 2 units PRBCs scheduled to be given. Hold metolazone, metoprolol, potassium chloride, spironolactone and warfarin. Remaining orders and notations as noted Resident Activity Tracking Resident Involvement: Resident Care Provided Care Provided: Adult Hospital Medicine
[2020-10-01 21:14] LABS: Alanine Aminotransferase 19 U/L (12-78); Alkaline Phosphatase 63 U/L (45-117); Bilirubin,Total 0.2 mg/dl (0.2-1); Carbon Dioxide 49 mmol/L (21-32)
[2020-10-02] MEDS ORDERED: PHYTONADIONE 5 MG TAB PO STA (00:28)
[2020-10-02] MEDS ORDERED: ACETAMINOPHEN 325 MG TAB PO PRN (00:28)
[2020-10-02] MEDS ORDERED: ALBUT/IPRATROP 3MG/0.5MG NEB 3 ML VIAL INH PRN (00:28)
[2020-10-02] MEDS: PANTOprazole 40 MG in DEXTROSE 5% 100 ML IV SCH ×5 (00:41→19:25)
[2020-10-02 03:31] LABS: INR 2.4 (0.9-1.1); Prothrombin Time 24.3 Seconds (9.0-12.0)
[2020-10-02 03:52] LABS: Albumin Globulin Ratio 0.9 (0.9-2); Albumin Level 2.7 gm/dl (3.4-5.0); Bilirubin,Total 0.3 mg/dl (0.2-1); Creatinine Clr Calc Pharmacy 45.3 ml/min; Est GFR (African American) 55.3; Est GFR (Non-African American) 47.7; Globulin 2.9 gm/dl (2.5-4.0); Potassium 3.6 mmol/L (3.5-5.1); Total Protein 5.6 gm/dl (6.4-8.2)
[2020-10-02 03:56] LABS: Hematocrit (blood only) 23.1 % (42-52); Hemoglobin 6.7 g/dL (14.0-18.0); Mean Corpuscular Hemoglobin 28.8 pg (25-34); Mean Corpuscular Volume 99.1 fL (80-100); Mean Platelet Volume 9.1 fL (7.4-10.4); Platelet Count 327 K/uL (130-400); RDW Coefficient of Variation 19.4 % (11.5-14.5); RDW Standard Deviation 69.4 fL (36.4-46.3); Red Blood Count 2.33 M/uL (4.7-6.1); White Blood Count 6.07 K/uL (4.8-10.8)
[2020-10-02] MEDS ORDERED: SODIUM CHLORIDE 0.9% 250 ML IV PRN ×2 (04:07→11:35)
[2020-10-02 04:20] LABS: Folate (Folic Acid) > 20.00 ng/ml (>5.38)
[2020-10-02 04:25] LABS: Basophils # (auto) 0.01 K/uL (0-0.2); Basophils % (auto) 0.2 %; Eosinophils # (auto) 0.24 K/uL (0-0.5); Immature Granulocytes # (auto) 0.01 K/uL (0.00-0.02); Immature Granulocytes % (auto) 0.2 %; Lymphocytes # (auto) 0.75 K/uL (1.2-3.4); Lymphocytes % (auto) 12.4 %; Monocytes # (auto) 0.88 K/uL (0.11-0.59); Monocytes % (auto) 14.5 %; Neutrophils # (auto) 4.18 K/uL (1.4-6.5); Neutrophils % (auto) 68.7 %; Polychromasia 1+
[2020-10-02 04:29] LABS: Vitamin B12 546 pg/ml (193-986)
--- NOTE | 2020-10-02 07:55 | Hospitalist Progress Note ---
Date of Service October 02, 2020 Assessment & Plan (1) Anemia: Tanna is a 75-year-old male with a past medical history of COPD with emphysema, prediabetes, tobacco use, recurrent anemia with GIB, history of TAVR on warfarin, CAD, STEMI, and carotid stenosis who presents with progressive fatigue and who was found to have a CBC with a hemoglobin of 5.2 on admission. Acute GI bleed - with symptomatic anemia and Hgb 5.2 - likely lower GI bleed given history of AVMs via Colonoscopy and supratherapeutic INR - Hgb 5.2 --> 7.3 after 2u pRBCs; 3rd unit currently infusing - GI consulted: recommends EGD/Colonoscopy tomorrow for further eval/management - clear liquid diet and GoLytely bowel prep; NPO at midnight Continue Protonix gtt Anemia - MCV 99.1 (borderline) - vitamin B12 and folate WNL - iron 24 (L), ferritin 35.5, transferrin 252 - suspect iron deficiency anemia - continue folate/B12 supplementation - plan to resume home iron supplement after acute GI bleed w/u AVR - INR supratherapeutic, 5.4 --> 2.4 today, s/p VitK 5mg x2 in ED - continue to hold warfarin - trend INR daily - recommend frequent monitoring of INR and H/H as outpatient HFpEF - Last Echo 06/12/2020: EF 55-60% with normal systolic function Transfusion as above Creatinine elevated, likely due to poor forward flow Antihypertensives held Continue colloid support as above, COPD - Continue CAKE [employer] inhalers - Duonebs PRN Anxiety - Continue lexapro DVT prophylaxis: SCDs, pharmacal prophylaxis contraindicated in the setting of bleed Disposition: PCU with tele Diet: Clear liquids and NPO at midnight CODE STATUS: DNR/DNI (2) COPD with emphysema: (3) Bilateral pleural effusion: (4) Chronic respiratory failure with hypoxia: (5) Restrictive lung disease: (6) Exertional shortness of breath: (7) Acute kidney injury: (8) Prediabetes: Admission and Anticipated Discharge Date Admission Date: October 01, 2020 Supervising Physician Co-Signing Physician Notes I personally examined the patient and verified all verma points of history and exam, discussed case, and agree with decision making with Dr Ballard. feeling better. frustrated w situation. explained extensively and answered all questions to the best of my ability vitals ntoed nad heent nc at mmm breathing unlabored no accessory muscles good effort skin no rashes no pallor or icterus acute blood loss anemia - GI bleeding - strongly suspect AVMs accentuated by anticoagulation. improving after tranfusion - give additional blood since his situation will almost undoubtedly cause ongoing blood loss. difficult balance due to AVR requiring anticoaguation and AVMs causing bleeding - scope tomorrow if able to cauterize may help some, although typically AVMs re-form (and/or are present in small bowel) - probalby will just need to target INR as close to 2.5 as possible, follow closely, follow Hgb very close, replace iron ongoing and anticipate a need for periodic transfusions. chronic diastolic CHF - stable. Subjective LACIE after being transferred to floor. This morning reports improvement in fatigue and SOB with pRBCs. Reports several years of dark stools although takes iron chronically and unsure if the color is due to blood or iron supplementation. Confirms history of Colonoscopy finding AVMs 2 years ago. Also confirms h/o STEMI in 03/2020 followed by TAVR in 04/2020 and several months of taking Warfarin - denies previous supratherapeutic INR. Denies fever/chills, chest pain/palpitations, N/V, abdominal pain. Review of Systems Review of Systems: Pertinent positives and negatives mentioned in HPI Physical Exam Constitutional: WD/WN, vitals as above Respiratory: normal respiratory effort, lungs clear to auscultation Cardiovascular: Rate/Rhythm: regular rate and regular rhythm Heart Sounds: normal S1, normal S2 (loud) and + murmur (2-6 systolic murmur in right upper sternal area) Gastrointestinal (Abdomen): normal bowel sounds, soft, nontender, no hepatosplenomegaly Skin: no rashes, warm and dry Psychiatric: A+Ox3, euthymic affect Results & Data Results & Data ([facility]) Vital Signs (Past 12 Hours) Vital Signs Temp Pulse Pulse Resp BP BP Pulse Ox 10/02/20 07:33 36.5 C 66 20 131/70 94 10/02/20 06:44 36.5 C 69 20 112/38 L 95 10/02/20 05:30 36.8 C 67 16 122/63 99 10/02/20 05:15 36.8 C 66 16 118/59 L 99 10/02/20 04:59 36.9 C 68 16 119/61 99 10/02/20 04:55 37.1 C 68 16 120/58 L 99 10/02/20 04:50 36.9 C 65 16 122/56 L 99 10/02/20 04:43 37 C 71 16 125/61 99 10/02/20 04:08 36.8 C 68 16 127/56 L 98 10/02/20 01:54 65 18 95 10/02/20 01:19 78 10/02/20 01:17 36.8 C 75 16 140/66 100 10/02/20 00:46 36.8 C 73 16 145/63 H 100 10/02/20 00:28 36.8 C 73 16 145/63 H 100 10/01/20 23:49 36.9 C 67 20 108/46 L 96 10/01/20 23:34 36.9 C 66 20 111/42 L 96 10/01/20 23:18 37.1 C 65 21 112/52 L 99 10/01/20 23:09 37.1 C 66 20 120/50 L 97 10/01/20 22:30 36.7 C 76 22 110/46 L 96 10/01/20 22:00 36.8 C 81 22 143/49 H 94 10/01/20 21:45 36.7 C 75 18 124/50 L 95 10/01/20 21:26 36.9 C 72 20 129/65 96 10/01/20 20:45 71 21 134/50 L 99 10/01/20 20:30 71 23 129/46 L 100 10/01/20 20:15 76 21 141/49 H 100 10/01/20 20:01 99 10/01/20 20:00 70 20 99 Pulse Ox 10/02/20 07:33 10/02/20 06:44 10/02/20 05:30 10/02/20 05:15 10/02/20 04:59 10/02/20 04:55 10/02/20 04:50 10/02/20 04:43 10/02/20 04:08 10/02/20 01:54 10/02/20 01:19 10/02/20 01:17 10/02/20 00:46 10/02/20 00:28 100 10/01/20 23:49 10/01/20 23:34 10/01/20 23:18 10/01/20 23:09 10/01/20 22:30 10/01/20 22:00 10/01/20 21:45 10/01/20 21:26 10/01/20 20:45 10/01/20 20:30 10/01/20 20:15 10/01/20 20:01 10/01/20 20:00 Resident Activity Tracking Resident Involvement: Resident Care Provided Care Provided: Adult [facility] Medicine
[2020-10-02] MEDS: FOLIC ACID 1 MG TAB PO SCH (08:58)
[2020-10-02] MEDS: UMECLIDINIUM/VILANTEROL 62.5/25MCG 7 PUFFS/INHALER INH SCH (08:58)
[2020-10-02] MEDS: CYANOCOBALAMIN 500 MCG TABLET (VITAMIN B-12) PO SCH (08:58)
[2020-10-02] MEDS: ESCITALOPRAM OXALATE 20 MG TAB PO SCH (08:58)
[2020-10-02] MEDS: FLUTICASONE FUROATE 100MCG 14 PUFFS/INHALER INH SCH (08:59)
--- NOTE | 2020-10-02 09:41 | Medical Student Progress Note ---
Date of Service October 02, 2020 Assessment & Plan Admission and Anticipated Discharge Date Admission Date: October 01, 2020 Mr. Ca is a 75 yo male with a pmh of CA, Aortic Valve replacement, arteriovenous malformation, tobacco use, and COPD with emphysema presenting today with fatigue and Hgb of 5.2 on admission. PMH of arteriovenous malformation cauterizations suggests chronic arteriovenous malformation which may have been exacerbated by recent placement on Coumadin following aortic valve replacement. 1) Anemia Most likely secondary to Acute GI bleed Hgb from 5.2 --> with 2 units of blood, continuing transfusion of the 3rd. MCV 99.1 (borderline) Continue with folate and B12 supplementation. iron 24, ferritin 35.5, transferrin 252 - suspect iron deficiency anemia Continue with iron supplementation at home 2) Acute GI bleed Consistent with lower GI bleed given history of AVMs via Colonoscopy and supratherapeutic INR Consulted GI who suggests EGD and Colonoscope for further evaluation tomorrow Clear Liquid diet with GoLytely bowel prep; NPO at midnight Continue Protonix 3) Aortic Valve Replacement INR supratherapeutic, 5.4 --> 2.4 today, s/p VitK 5mg x2 in ED continuing to hold warfarin checking INR daily Suggesting tight check over INR alongside Hgb as outpatient 4) COPD with emphysema Continuing inhaler 5) HFpEF Last Echo 06/12/2020: EF 55-60% with normal systolic function See Anemia for transfusion info Cre elevated at 1.41 Antihypertensives held Continue colloid support as above Subjective Pt is a 75 year old male with a a pmh of CA, DM, COPD, Review of Systems Review of Systems: Const: Denies fever, chills, night sweats. Reports fatigue. HEENT: Does not report vision changes Cardio: Reports murmur Extremities: Reports usual edema in the LE. Resp: Reports "reduced capacity" and GI: See HPI Neuro: No headaches, vision changes Physical Exam Physical Exam: General appearance: Pt was standing to go to restroom when I entered the room. In no acute distress. Appears tired. HEENT: PEERLA Cardio/Vasc: Mitral Murmur Resp: CTA BL. Normal inspiratory effort with mild early-end expiration. Abdominal: Normoactive bowel sounds in all four quadrants. Non-tender, non- distended. Skin: No pallor or jaundice. Neuro: Alert. EOM intact. Grossly normal hearing and balance. Results & Data ([facility]) Vital Signs (Past 12 Hours) Vital Signs Temp Pulse Pulse Resp BP BP Pulse Ox 10/02/20 07:33 36.5 C 66 20 131/70 94 10/02/20 06:44 36.5 C 69 20 112/38 L 95 10/02/20 05:30 36.8 C 67 16 122/63 99 10/02/20 05:15 36.8 C 66 16 118/59 L 99 10/02/20 04:59 36.9 C 68 16 119/61 99 10/02/20 04:55 37.1 C 68 16 120/58 L 99 10/02/20 04:50 36.9 C 65 16 122/56 L 99 10/02/20 04:43 37 C 71 16 125/61 99 10/02/20 04:08 36.8 C 68 16 127/56 L 98 10/02/20 01:54 65 18 95 10/02/20 01:19 78 10/02/20 01:17 36.8 C 75 16 140/66 100 10/02/20 00:46 36.8 C 73 16 145/63 H 100 10/02/20 00:28 36.8 C 73 16 145/63 H 100 10/01/20 23:49 36.9 C 67 20 108/46 L 96 10/01/20 23:34 36.9 C 66 20 111/42 L 96 10/01/20 23:18 37.1 C 65 21 112/52 L 99 10/01/20 23:09 37.1 C 66 20 120/50 L 97 10/01/20 22:30 36.7 C 76 22 110/46 L 96 10/01/20 22:00 36.8 C 81 22 143/49 H 94 10/01/20 21:45 36.7 C 75 18 124/50 L 95 Pulse Ox 10/02/20 07:33 10/02/20 06:44 10/02/20 05:30 10/02/20 05:15 10/02/20 04:59 10/02/20 04:55 10/02/20 04:50 10/02/20 04:43 10/02/20 04:08 10/02/20 01:54 10/02/20 01:19 10/02/20 01:17 10/02/20 00:46 10/02/20 00:28 100 10/01/20 23:49 10/01/20 23:34 10/01/20 23:18 10/01/20 23:09 10/01/20 22:30 10/01/20 22:00 10/01/20 21:45
--- NOTE | 2020-10-02 10:16 | Gastrointestinal Consultation ---
Date of Consultation October 02, 2020 Assessment & Plan (1) Anemia: (2) Supratherapeutic INR: Diff dx: PUD vs AVM vs malignancy vs other. 1. Recommend correction of INR. 2. Continue blood transfusion resuscitation. 3. Clear liquid diet. 4. GoLytely bowel preparation this evening, then NPO after prep. 5. EGD and colonoscopy for further evaluation to be performed by Dr. Vergara tomorrow 10/03/2020. 6. Continue PPI ggt at 8 mg/hr as ordered. 7. Continue supportive care. Additional recommendations pending results of testing. Thank you for allowing us to participate in the care of this pleasant patient. If you have any questions or concerns, please do not hesitate to contact us. Supervising Physician Co-Signing Physician Notes I personally evaluated the patient and agree with the findings as documented by ORALIA Thompson Exam: abd: soft, nt, nd EGD and colonoscopy to further evaluate tomorrow. History of Present Illness Reason for Consultation: Anemia Requesting Physician: Dr. Nathan Attending Physician: Carlton Veloz DO History of Present Illness Patient is a 75 year-old male with a history of COPD, CAD, GIB (2017), STEMI (04/10) s/p TAVR at [facility] 04/23/2020 on Coumadin presenting to the hospital last evening after being advised hospital evaluation by PCP for low iron and H&H levels on outpatient laboratory testing. He states that he has been chronically anemic since early 2019 but his H&H dropped significantly after his STEMI in March. He has been taking oral iron supplementation since that time. States that in doing so, he has been noted to have darker and harder stools but he has not had any black or tarry or bloody stools. Colace has softened the stools. Over the past few weeks, he has noticed reduced energy levels, HO[place] and dizziness upon standing. No chest pain or palpitations. No syncope. He further denies any decreased appetite, nausea or vomiting, abdominal pain or other GI complaints. Due to his prior history of anemia and suspected GIB, states Dr. Burrell did perform both EGD and colonoscopy in 2017 and consideration was given to VCE as no clear source of bleeding was identified. From review of records, it appears he did have prior angiodysplastic lesions which were successfully treated with ablation. On arrival, he was noted to have a profound anemia with hemoglobin 5.1, hematocrit 18.9, MCV 103.8 but normal B12 and folic acid levels at 546 and >20 respectively. INR was noted to be supratherapeutic at 5.4 and is currently being reversed with vitamin K by primary team. He has placed on NPO status, is receiving PRBCS at present and PPI ggt. Allergies Allergy/AdvReac Type Severity Reaction Status Date / Time No Known Drug Allergies Allergy Verified 09/26/20 14:40 Home Medications Home Medications Medication Instructions Recorded Confirmed Type atorvastatin 80 mg tablet 80 mg PO DAILY 05/20/20 10/01/20 History escitalopram oxalate 20 mg tablet 20 mg PO DAILY 05/20/20 10/01/20 History lorazepam 0.5 mg tablet 0.5 mg PO DAILY PRN 05/20/20 10/01/20 History magnesium 250 mg tablet 250 mg PO DAILY 05/20/20 10/01/20 History pantoprazole 40 mg tablet,delayed 40 mg PO BID tab 05/20/20 10/01/20 History release potassium chloride 20 mEq 20 meq PO BID 05/20/20 10/01/20 History tablet,extended release multivitamin 1 tab PO DAILY 05/21/20 10/01/20 History warfarin 5 mg tablet 5 mg PO Q OTHER DAY 05/21/20 10/01/20 History metoprolol tartrate 25 mg tablet 25 mg PO BID #60 tab 06/04/20 10/01/20 Rx calcium carbonate 600 mg calcium 600 mg PO BID tab 06/10/20 10/01/20 History (1,500 mg) tablet docusate sodium 100 mg capsule 100 mg PO BID 06/10/20 10/01/20 History sodium chloride 0.65 % nasal spray 2 sprays INTNAS BID ml 06/10/20 10/01/20 History aerosol acetaminophen 325 mg capsule 325 mg PO QID PRN 06/11/20 10/01/20 History ferrous sulfate 325 mg (65 mg 325 mg PO BID tab 08/01/20 10/01/20 History iron) tablet bumetanide 2 mg tablet 4 mg PO BID tab 08/19/20 10/01/20 History ipratropium 0.5 mg-albuterol 3 mg 3 ml INHALATION Q8H PRN #180 ml 08/22/20 10/01/20 Rx (2.5 mg base)/3 mL nebulization soln fluticasone fur. 100 mcg-umeclid 1 inh INHALATION DAILY #60 ea 08/26/20 10/01/20 Rx 62.5 mcg-vilant 25 mcg inhalat.powder spironolactone 25 mg tablet 25 mg PO BID 30 Days #60 tab 09/30/20 10/01/20 Rx metolazone 2.5 mg PO Q OTHER DAY PRN 10/01/20 10/01/20 History warfarin 7.5 mg PO Q OTHER DAY 10/01/20 10/01/20 History Patient History Medical History (Updated 10/02/20 @ 10:35 by ORALIA Judge) Anemia Aortic stenosis severe asymptomatic Chronic obstructive pulmonary disease OXYGEN 5L/MIN NC HS Chronic shortness of breath Dependent edema PRN diuretics History of carotid artery disease S/P L CEA 2013 History of GI bleed Hypertension Tobacco use disorder Surgical History History of appendectomy History of cataract surgery BILAT History of colonoscopy History of esophagogastroduodenoscopy (EGD) History of left-sided carotid endarterectomy 2013 History of tonsillectomy History of tooth extraction Toenail avulsion REMOVAL OF Family History Father Hypertension Social History Smoking Status: Former smoker Second Hand Exposure: Yes; Do You Dip or Chew Tobacco: No; Hx Alcohol Use: No Hx Substance Use: No Preferred Language: Salvadorean Communication Ability: Effective Visual Impairment: No Limitations 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 Beliefs That Will Affect Care: None marital status: Current Living Situation: Spouse Other Information That Helps Us Care for You: No Feels Safe at Home: Yes Assistive Devices: Oxygen - Continuous Review of Systems Constitutional: as per Subjective / HPI; no fever and no chills Eyes: no problem reported Ear, Nose, Mouth, Throat: no dysphagia and no pain with swallowing Respiratory: as per Subjective / HPI; no cough Cardiovascular: as per Subjective / HPI Gastrointestinal: as per Subjective / HPI Genitourinary: no problem reported Musculoskeletal: + swelling Integumentary: no problem reported Neurologic: no problem reported Psychiatric: no problem reported Endocrine: no problem reported Hematologic / Lymphatic: no problem reported Allergy / Immunological: no problem reported Physical Exam Constitutional: WD/WN, vitals as above well developed and well nourished Eyes: EOM intact bilaterally Neck: normal visual inspection Respiratory: normal respiratory effort, lungs clear to auscultation Cardiovascular: Rate/Rhythm: regular rate and regular rhythm Heart Sounds: + murmur Gastrointestinal (Abdomen): Inspection/Auscultation: normal bowel sounds Percussion/Palpation: abdomen soft; abdomen nontender Musculoskeletal: Extremities: extremities normal to inspection Skin: no rashes, warm and dry + pallor Psychiatric: A+Ox3, euthymic affect Results & Data ([facility]) Vital Signs (Past 12 Hours) Vital Signs Temp Pulse Pulse Resp BP BP Pulse Ox 10/02/20 07:33 36.5 C 66 20 131/70 94 10/02/20 06:44 36.5 C 69 20 112/38 L 95 10/02/20 05:30 36.8 C 67 16 122/63 99 10/02/20 05:15 36.8 C 66 16 118/59 L 99 10/02/20 04:59 36.9 C 68 16 119/61 99 10/02/20 04:55 37.1 C 68 16 120/58 L 99 10/02/20 04:50 36.9 C 65 16 122/56 L 99 10/02/20 04:43 37 C 71 16 125/61 99 10/02/20 04:08 36.8 C 68 16 127/56 L 98 10/02/20 01:54 65 18 95 10/02/20 01:19 78 10/02/20 01:17 36.8 C 75 16 140/66 100 10/02/20 00:46 36.8 C 73 16 145/63 H 100 10/02/20 00:28 36.8 C 73 16 145/63 H 100 10/01/20 23:49 36.9 C 67 20 108/46 L 96 10/01/20 23:34 36.9 C 66 20 111/42 L 96 10/01/20 23:18 37.1 C 65 21 112/52 L 99 10/01/20 23:09 37.1 C 66 20 120/50 L 97 10/01/20 22:30 36.7 C 76 22 110/46 L 96 Pulse Ox 10/02/20 07:33 10/02/20 06:44 10/02/20 05:30 10/02/20 05:15 10/02/20 04:59 10/02/20 04:55 10/02/20 04:50 10/02/20 04:43 10/02/20 04:08 10/02/20 01:54 10/02/20 01:19 10/02/20 01:17 10/02/20 00:46 10/02/20 00:28 100 10/01/20 23:49 10/01/20 23:34 10/01/20 23:18 10/01/20 23:09 10/01/20 22:30 PG Care Time/CCT Total # of Minutes Spent Total Time Spent with Patient: Total time spent is greater than 50% in coordination of care (as documented) at patient's floor/unit and/or counseling patient: Coding Level of Care Code 38540 Initial Inpt Care Lvl 3 Diagnoses Anemia D64.9 Supratherapeutic INR R79.1
[2020-10-02 10:19] LABS: Hematocrit (blood only) 24.9 % (42-52); Hemoglobin 7.3 g/dL (14.0-18.0)
[2020-10-02 12:02] LABS: Ferritin 35.5 ng/ml (8-388)
[2020-10-02 17:37] LABS: Hematocrit (blood only) 29.4 % (42-52); Hemoglobin 8.4 g/dL (14.0-18.0)
--- NOTE | 2020-10-02 18:18 | Billing Data ---
Date of Service October 02, 2020 Coding Level of Care Code 75388 Subseq Hosp Care Lvl 3
[2020-10-02] MEDS: LAVAGE SOLUTION 4000ML PO SCH (19:24)
[2020-10-03] MEDS: PANTOprazole 40 MG in DEXTROSE 5% 100 ML IV SCH ×5 (00:58→19:44)
[2020-10-03] MEDS: LAVAGE SOLUTION 4000ML PO SCH (02:23)
--- NOTE | 2020-10-03 07:41 | Hospitalist Progress Note ---
Date of Service October 03, 2020 Assessment & Plan (1) Anemia: Tanna is a 75-year-old male with a past medical history of COPD with emphysema, prediabetes, tobacco use, recurrent anemia with GIB, 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 Acute Lower GI bleed - with symptomatic anemia and Hgb 5.2 - likely lower GI bleed given history of AVMs via Colonoscopy and supratherapeutic INR - Hgb 5.2 --> 8.4 after 3u pRBCs; Hgb 8.2 this AM - GI consulted: EGD unremarkable and colonoscopy showed several polyps that were resected as well as diverticulosis - suspect acute lower GI bleed 2/2 diverticulosis - clear liquid diet for today - will advance as tolerated - avoid NSAIDs - trend CBC and transfuse as necessary Anemia - MCV 99.1 (borderline) - vitamin B12 and folate WNL - iron 24 (L), ferritin 35.5, transferrin 252 - continue folate/B12 supplementation - plan to resume home iron supplement after acute GI bleed w/u AVR - INR supratherapeutic, 5.4 --> 2.4 on 10/02, s/p VitK 5mg x2 in ED - INR 1.3 today - resumed warfarin today as no signs of active GI bleed - trend INR daily - recommend frequent monitoring of INR and H/H as outpatient HFpEF - Last Echo 06/12/2020: EF 55-60% with normal systolic function - Transfusion as above - Antihypertensives held - Continue colloid support as needed above RAND, resolved - Cr 1.41 --> 0.81 after pRBC transfusions - BUN:Cr ratio >22 - suspect pre-renal 2/2 hypovolemia, improved with transfusions - continue to trend BMP COPD - 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 - Duonebs PRN Anxiety - Continue lexapro DVT prophylaxis: SCDs, pharmacal prophylaxis contraindicated in the setting of bleed Disposition: PCU with tele Diet: NPO for upcoming EGD/colonoscopy CODE STATUS: DNR/DNI (2) COPD with emphysema: (3) Bilateral pleural effusion: (4) Chronic respiratory failure with hypoxia: (5) Restrictive lung disease: (6) Exertional shortness of breath: (7) Acute kidney injury: (8) Prediabetes: Admission and Anticipated Discharge Date Admission Date: October 01, 2020 Supervising Physician Co-Signing Physician Notes I personally examined the patient and verified all verma points of history and exam, discussed case, and agree with decision making with Dr Ballard. seen post scope just getting food feeling ok. understands situation. vitals ntoed nad heent nc at mmm breathing unlabored no accessory muscles good effort skin no rashes no pallor or icterus acute blood loss anemia - GI bleeding - strongly suspect AVMs accentuated by anticoagulation. improved after transfusion. difficult balance due to AVR requiring anticoaguation and AVMs causing bleeding - probably will just need to target INR as close to 2.5 as possible, follow closely, follow Hgb very close, replace iron ongoing and anticipate a need for periodic transfusions. chronic diastolic CHF - stable. Subjective NAEO. Reports less fatigue since 3u pRBC transfusions yesterday. Reports frequent diarrhea last night as expected with bowel prep - denies hematochezia. Denies hematemesis. Denies fever/chills, chest pain/palpitations, N/V, abdominal pain. Review of Systems Review of Systems: Pertinent positives and negatives mentioned in HPI Physical Exam Constitutional: WD/WN, vitals as above Respiratory: normal respiratory effort, lungs clear to auscultation Cardiovascular: Rate/Rhythm: regular rate and regular rhythm Heart Sounds: normal S1, normal S2 (loud) and + murmur (2-6 systolic murmur in right upper sternal area) Gastrointestinal (Abdomen): normal bowel sounds, soft, nontender, no hepatosplenomegaly Skin: no rashes, warm and dry Psychiatric: A+Ox3, euthymic affect Results & Data Results & Data ([facility]) Vital Signs (Past 12 Hours) Vital Signs Temp Pulse Resp BP Pulse Ox 10/03/20 07:07 36.4 C L 73 19 142/67 H 98 10/03/20 03:55 36.7 C 76 18 135/67 97 10/02/20 23:18 36.7 C 72 18 128/55 L 98 10/02/20 20:00 36.4 C L 70 18 159/60 H 99 Resident Activity Tracking Resident Involvement: Resident Care Provided Care Provided: Adult Hospital Medicine
[2020-10-03 08:09] LABS: Basophils # (auto) 0.02 K/uL (0-0.2); Basophils % (auto) 0.4 %; Eosinophils # (auto) 0.32 K/uL (0-0.5); Eosinophils % (auto) 6.8 %; Hemoglobin 8.2 g/dL (14.0-18.0); Immature Granulocytes # (auto) 0.01 K/uL (0.00-0.02); Immature Granulocytes % (auto) 0.2 %; Lymphocytes # (auto) 0.54 K/uL (1.2-3.4); Lymphocytes % (auto) 11.4 %; Mean Corpuscular Hemoglobin 27.9 pg (25-34); Mean Corpuscular Hgb Conc 28.3 g/dL (32-36); Mean Corpuscular Volume 98.6 fL (80-100); Mean Platelet Volume 9.8 fL (7.4-10.4); Monocytes # (auto) 0.57 K/uL (0.11-0.59); Monocytes % (auto) 12.1 %; Neutrophils # (auto) 3.27 K/uL (1.4-6.5); Neutrophils % (auto) 69.1 %; Platelet Count 323 K/uL (130-400); RDW Coefficient of Variation 19.3 % (11.5-14.5); RDW Standard Deviation 69.8 fL (36.4-46.3); Red Blood Count 2.94 M/uL (4.7-6.1); White Blood Count 4.73 K/uL (4.8-10.8)
[2020-10-03 08:32] LABS: BUN Creatinine Ratio 17.7 (10-20); Est GFR (African American) 97.9; Est GFR (Non-African American) 84.5; Magnesium 2.5 mg/dl (1.8-2.4); Potassium 3.9 mmol/L (3.5-5.1)
--- NOTE | 2020-10-03 08:44 | Electrocardiogram Report ---
Test Reason : Blood Pressure : / mmHG Vent. Rate : 070 BPM Atrial Rate : 070 BPM P-R Int : 210 ms QRS Dur : 120 ms QT Int : 430 ms P-R-T Axes : 089 -16 049 degrees QTc Int : 464 ms Sinus rhythm with 1st degree A-V block Incomplete left bundle block Borderline ECG When compared with ECG of 11-JUN-2020 09:58, No significant change was found Confirmed by Declan Lee ([id number]) on 10/03/2020 8:44:00 AM Referred By: REFERRED SELF Confirmed By:Declan Lee
[2020-10-03] MEDS: UMECLIDINIUM/VILANTEROL 62.5/25MCG 7 PUFFS/INHALER INH SCH (08:52)
[2020-10-03] MEDS: FLUTICASONE FUROATE 100MCG 14 PUFFS/INHALER INH SCH (08:52)
[2020-10-03] MEDS: ESCITALOPRAM OXALATE 20 MG TAB PO SCH (09:00)
[2020-10-03] MEDS: CYANOCOBALAMIN 500 MCG TABLET (VITAMIN B-12) PO SCH (09:00)
[2020-10-03] MEDS: FOLIC ACID 1 MG TAB PO SCH (09:00)
[2020-10-03 09:12] LABS: INR 1.3 (0.9-1.1); Prothrombin Time 13.1 Seconds (9.0-12.0)
--- NOTE | 2020-10-03 09:18 | History & Physical Bridge Note ---
Date of Service October 03, 2020 History & Physical Bridge Note I have examined the patient, reviewed the History & Physical and in the interval since the performance of the History & Physical I have noted the following changes of clinical significance: Patient completed bowel preparation. H&H 8.2/29.0 today. Continues PPI ggt. NPO. PE: VSS. A&Ox3. RRR with systolic murmur. Lungs CTA bilaterally. Abdomen soft, nontender. Normal bowel sounds. Moves all extremities. A/P: Symptomatic anemia. Continue NPO for now. Proceed with EGD and colonoscopy today with Dr. Vergara. Additional recommendations pending results of testing.
--- NOTE | 2020-10-03 09:47 | Medical Student Progress Note ---
Date of Service October 03, 2020 Assessment & Plan Admission and Anticipated Discharge Date Admission Date: October 01, 2020 Mr. Ca is a 75 yo male 1 day post admission for anemia and fatigue consistent with lower GI Bleed. 1) GI Bleed Anemia most likely secondary to GI Bleed. History of AVM's. Hgb 5.1 --> 7.3 --> 8.2 following 3u pRBC Scheduled for Colonoscopy at 4. Patient has been prepping with Go Litely and has been NPO since midnight. Probable discharge following colonoscopy. Close following of Hgb during INR moderating is recommended due to chance of reoccurrence bleeding from AVMs. 2) Anemia MCV 98.6 Vitamin B12 and folate WNL Iron 24 (L), ferritin 35.5, transferrin 252 (From yesterday) 3) AVR INR supratherapeutic, 2.4 --> 1.3 today, Continue to hold warfarin Recommend tight monitoring of INR and Hgb/Hct as outpatient to maintain therapeutic range with least bleed risk possible. 4) COPD Continue with inhaler DVT prophylaxis: SCDs, pharmacal prophylaxis contraindicated in the setting of bleed Dispos: PCU with telemetry F/E/N: NPO Code: DNR/DNI No Resusciation Current Inpatient Medications Acetaminophen (Acetaminophen 325 Mg Tab) 650 mg PO Q4H PRN PRN Reason: Pain or Fever Stop: 11/01/20 00:27 Albuterol (Albut/Ipratrop 3mg/0.5mg Neb 3 Ml Vial) 3 ml INH Q8H PRN PRN Reason: COPD Stop: 11/01/20 00:27 Cyanocobalamin (Cyanocobalamin 500 Mcg Tablet (Vitamin B-12)) 500 mcg PO QAM MARZENA Stop: 11/01/20 08:59 Last Admin: 10/02/20 08:58 Dose: 500 mcg Documented by: Escitalopram Oxalate (Escitalopram Oxalate 20 Mg Tab) 20 mg PO DAILY MARZENA Stop: 11/01/20 08:59 Last Admin: 10/02/20 08:58 Dose: 20 mg Documented by: Fluticasone Furoate (Fluticasone Furoate 100mcg 14 Puffs/Inhaler) 1 puffs INH DAILY MARZENA Stop: 11/01/20 08:59 Last Admin: 10/03/20 08:52 Dose: 1 puffs Documented by: Folic Acid (Folic Acid 1 Mg Tab) 1 mg PO QAM MARZENA Stop: 11/01/20 08:59 Last Admin: 10/02/20 08:58 Dose: 1 mg Documented by: Pantoprazole Sodium 40 mg/ (Dextrose) 100 mls @ 20 mls/hr IV Q5H MARZENA Stop: 10/31/20 19:59 Last Admin: 10/03/20 05:43 Dose: 8 mg/hr, 20 mls/hr Documented by: Umeclidinium/Vilanterol (Umeclidinium/Vilanterol 62.5/25mcg 7 Puffs/Inhaler) 1 puffs INH DAILY MARZENA Stop: 11/01/20 08:59 Last Admin: 10/03/20 08:52 Dose: 1 puffs Documented by: Subjective Mr Ca is a 75 yo male presenting 1 day post admission for GI bleed with anemia. Currently ground stools in liquid as currently reported by nursing following GoLytely treatment for colonoscopy scheduled at 4pm. Pt was up frequently throughout the morning to use the restroom. Reports no abdominal pain, no fever/chills/nightsweat, no chest pain. . Review of Systems Review of Systems: See HPI Physical Exam Physical Exam: Const: Pt very tired but well appearing. Eager for colonoscope so that he can eat. Cardio: RRR with 2/6 systolic murmur. Resp: CTA BL Results & Data ([facility]) Vital Signs (Past 12 Hours) Vital Signs Temp Pulse Resp BP Pulse Ox 10/03/20 07:07 36.4 C L 73 19 142/67 H 98 10/03/20 03:55 36.7 C 76 18 135/67 97 10/02/20 23:18 36.7 C 72 18 128/55 L 98
[2020-10-03 13:52] LABS: iSTAT Allen Test Pass; iSTAT Art Bld Gas pCO2 Correct 69 mmHg (35-46); iSTAT Art Bld Gas pH Corrected 7.367 (7.35-7.45); iSTAT Arterial Blood Gas HCO3 40 meg/L (19-24); iSTAT Arterial Blood Gas pCO2 70 mmHg (35-46); iSTAT Arterial Blood Gas pH 7.36 (7.35-7.45); iSTAT Arterial Blood Gas pO2 67 mmHg (80-95); iSTAT Arterial Blood Gas pO2 C 66; iSTAT Carbon Dioxide > 40 mmol/L (24-31); iSTAT Hematocrit 39 % (42-52); iSTAT Hemoglobin 13.3 g/dl (14.0-18.0); iSTAT Potassium 4.1 mmol/L (3.3-5.0); iSTAT Site R Radial; iSTAT Sodium 136 mmol/L (135-144)
--- NOTE | 2020-10-03 14:17 | Communication Note ---
Date of Service: October 03, 2020 On arrival to endoscopy staging area, patient blew his nose and started a nose bleed. He was quite short of breath and soaked several tissues with blood. The bleeding did spontaneously stop and patient returned to bed, however his oxygen saturations were 73-85 on 4L NC. I did draw an ABG which showed 7.36/67/70/40. Given the recent bleeding from the nose, I am concerned that a traumatic EGD could put him at risk for further bleeding and potentially aspiration. I am also concerned that his recent edema may have worsened his fluid overload st atus. I spoke with his internal medicine team who does not think that his fluid status can be improved with an additional 24 hours of fluid and diuretic management prior to endoscopy. Given his severe existing cardiopulmonary disease and the risk for blood aspiration under anesthesia, I would recommend this procedure be done in the main OR where emergency intubation would be more feasible. I have spoken with Dr Vergara who is ammenable to moving the location of the procedure.
--- NOTE | 2020-10-03 14:20 | Anesthesiology Consultation ---
Date of Service October 03, 2020 Please see supplemental communication note regarding events in endoscopy holding area. Assessment & Plan (1) Encounter for pre-operative examination: Chart Review Chart Review: Acceptable Risk for Surgery and Patient NOT seen in Pre Admission Testing Consults Requested none ASA ASA4 Proposed Anesthesia Anesthesia Type: MAC Risk / Benefits Reviewed With: PT / POA / Parent / Guardian, Accepts Plan and Informed Consent Obtained History Surgery Operation Date: 10/03/20 16:00 Proposed Procedures p Colonoscopy EGD Dr. Jai Vergara MD Height/Weight Height: 5 ft 10 in Weight: 87.4 kg Allergies Allergy/AdvReac Type Severity Reaction Status Date / Time No Known Drug Allergies Allergy Verified 09/26/20 14:40 Medications Home Medications Medication Instructions Recorded Confirmed Last Taken atorvastatin 80 mg tablet 80 mg PO DAILY 05/20/20 10/01/20 Unknown escitalopram oxalate 20 mg tablet 20 mg PO DAILY 05/20/20 10/01/20 Unknown lorazepam 0.5 mg tablet 0.5 mg PO DAILY PRN 05/20/20 10/01/20 Unknown magnesium 250 mg tablet 250 mg PO DAILY 05/20/20 10/01/20 Unknown pantoprazole 40 mg tablet,delayed 40 mg PO BID tab 05/20/20 10/01/20 Unknown release potassium chloride 20 mEq 20 meq PO BID 05/20/20 10/01/20 Unknown tablet,extended release multivitamin 1 tab PO DAILY 05/21/20 10/01/20 Unknown warfarin 5 mg tablet 5 mg PO Q OTHER DAY 05/21/20 10/01/20 09/30/20 metoprolol tartrate 25 mg tablet 25 mg PO BID #60 tab 06/04/20 10/01/20 Unknown calcium carbonate 600 mg calcium 600 mg PO BID tab 06/10/20 10/01/20 Unknown (1,500 mg) tablet docusate sodium 100 mg capsule 100 mg PO BID 06/10/20 10/01/20 Unknown sodium chloride 0.65 % nasal spray 2 sprays INTNAS BID ml 06/10/20 10/01/20 Unknown aerosol acetaminophen 325 mg capsule 325 mg PO QID PRN 06/11/20 10/01/20 Unknown ferrous sulfate 325 mg (65 mg 325 mg PO BID tab 08/01/20 10/01/20 Unknown iron) tablet bumetanide 2 mg tablet 4 mg PO BID tab 08/19/20 10/01/20 Unknown ipratropium 0.5 mg-albuterol 3 mg 3 ml INHALATION Q8H PRN #180 ml 08/22/20 10/01/20 Unknown (2.5 mg base)/3 mL nebulization soln fluticasone fur. 100 mcg-umeclid 1 inh INHALATION DAILY #60 ea 08/26/20 10/01/20 Unknown 62.5 mcg-vilant 25 mcg inhalat.powder spironolactone 25 mg tablet 25 mg PO BID 30 Days #60 tab 09/30/20 10/01/20 Unknown metolazone 2.5 mg PO Q OTHER DAY PRN 10/01/20 10/01/20 Unknown warfarin 7.5 mg PO Q OTHER DAY 10/01/20 10/01/20 10/01/20 Active Medications Generic Name Dose Route Start Last Admin Trade Name Freq PRN Reason Stop Dose Admin Cyanocobalamin 500 mcg 10/02/20 09:00 10/02/20 08:58 Cyanocobalamin 500 Mcg Tablet (Vitamin B-12) PO 11/01/20 08:59 500 mcg QAM MARZENA Administration Escitalopram Oxalate 20 mg 10/02/20 09:00 10/02/20 08:58 Escitalopram Oxalate 20 Mg Tab PO 11/01/20 08:59 20 mg DAILY MARZENA Administration Fluticasone Furoate 1 puffs 10/02/20 09:00 10/03/20 08:52 Fluticasone Furoate 100mcg 14 Puffs/Inhaler INH 11/01/20 08:59 1 puffs DAILY MARZENA Administration Folic Acid 1 mg 10/02/20 09:00 10/02/20 08:58 Folic Acid 1 Mg Tab PO 11/01/20 08:59 1 mg QAM MARZENA Administration Pantoprazole Sodium 40 mg/ 100 mls @ 20 mls/hr 10/01/20 20:00 10/03/20 10:45 Dextrose IV 10/31/20 19:59 8 mg/hr Q5H MARZENA 20 mls/hr Administration 8 MG/HR Umeclidinium/Vilanterol 1 puffs 10/02/20 09:00 10/03/20 08:52 Umeclidinium/Vilanterol 62.5/25mcg 7 Puffs/Inhaler INH 11/01/20 08:59 1 puffs DAILY MARZENA Administration NPO Date Last Intake of Fluids: 10/03/20 Time Last Intake of Fluids: 03:00 Date Last Intake of Solids: 10/01/20 Past Medical History Medical History Anemia Aortic stenosis severe asymptomatic Chronic obstructive pulmonary disease OXYGEN 5L/MIN NC HS Chronic shortness of breath Dependent edema PRN diuretics History of carotid artery disease S/P L CEA 2013 History of GI bleed Hypertension Tobacco use disorder Exercise / Class Metabolic Activity III < 4 Walking/Shop/Light housework Past Family History Family History Father Hypertension Past Surgical History Surgical History History of appendectomy History of cataract surgery BILAT History of colonoscopy History of esophagogastroduodenoscopy (EGD) History of left-sided carotid endarterectomy 2013 History of tonsillectomy History of tooth extraction Toenail avulsion REMOVAL OF Past Anesthesia History No Hx of Anesthesia Complications and No Family Hx of Anesthesia Complications History of PONV No Hx of PONV and No Hx of Motion Sickness Social History Smoking Status: Former smoker tobacco type: cigarettes Do You Dip or Chew Tobacco: No Hx Alcohol Use: No Alcohol type: beer and hard liquor alcohol intake frequency: holidays/special occasions only Hx Substance Use: No substance use type: does not use Physical Exam Vital Signs Last Vital Signs Temp 36.8 C 10/03/20 13:29 Pulse 87 10/03/20 13:29 Resp 20 10/03/20 13:29 BP 165/63 H 10/03/20 13:29 Pulse Ox 90 10/03/20 13:29 ENMT Nose: + nasal discharge (bleeding, stopped after direct pressure) Mouth: no dentition abnormality Thyromental Distance: > or= 3.5 Finger Breadths Mallampati Class: II Neck normal visual inspection Respiratory Auscultation: + diminished lung sounds and + wheezes (few scattered) Cardiovascular Rate/Rhythm: regular rate and regular rhythm Extremities: + pedal edema Psychiatric Orientation: alert Testing Laboratory Results 10/03/20 07:20 10/03/20 07:20 PT 13.1 Seconds (9.0-12.0) H 10/03/20 08:39 INR 1.3 (0.9-1.1) H 10/03/20 08:39 APTT 41.6 Seconds (21.0-31.0) H 10/01/20 19:57 Blood Type O Positive 10/01/20 19:57 Antibody Screen NEGATIVE 10/01/20 19:57
[2020-10-03] MEDS ORDERED: KETAMINE 50 MG/5 ML SYRINGE ONE (14:22)
[2020-10-03] MEDS ORDERED: BENZOCAIN/TETRACA/BUTAM SPRAY 200 APPLN/20 GM SPRY EXT ONE (14:24)
[2020-10-03] MEDS ORDERED: ATROPINE SULFATE 0.1 MG/ML 10ML SYR IV PRN (14:29)
[2020-10-03] MEDS ORDERED: ePHEDrine sulfate 50 MG/ML AMP IV PRN (14:29)
[2020-10-03] MEDS ORDERED: PROPOFOL IV EMULSION 10 MG/ML 20 ML VIAL IV ONE (15:33)
[2020-10-03] MEDS ORDERED: GLYCOPYRROLATE 0.2 MG/ML VIAL ONE (15:33)
--- NOTE | 2020-10-03 15:38 | GI REPORT ---
Patient Name: Richard Lobo Procedure Date: 10/03/2020 2:44 PM Date of : 1945 Admit Type: Inpatient Age: 75 Gender: Male Attending MD: Joseph Vergara MD Procedure: Upper GI endoscopy Providers: Joseph Vergara MD Referring MD: Referred Self Indications: Unexplained iron deficiency anemia Medicines: Monitored Anesthesia Care Complications: No immediate complications. Estimated blood loss: None. Estimated Blood Loss: Estimated blood loss: none. Procedure: Pre-Anesthesia Assessment: - Prior Anticoagulants: The patient has taken no previous anticoagulant or antiplatelet agents. - ASA Grade Assessment: II - A patient with mild systemic disease. After obtaining informed consent, the endoscope was passed under direct vision. Throughout the procedure, the patient's blood pressure, pulse, and oxygen saturations were monitored continuously. The Colonoscope was introduced through the mouth, and advanced to the second part of duodenum. The upper GI endoscopy was accomplished without difficulty. The patient tolerated the procedure well. Findings: The examined esophagus was normal. The entire examined stomach was normal. The duodenal bulb and second portion of the duodenum were normal. Impression: - Normal esophagus. - Normal stomach. - Normal duodenal bulb and second portion of the duodenum. - No specimens collected. Recommendation: - Return patient to [facility] for ongoing care. - Resume previous diet today. Joseph Vergara MD 10/03/2020 3:37:52 PM This report has been signed electronically. Note Initiated On: 10/03/2020 2:44 PM Number of Addenda: 0 I attest to the content of the Intraoperative Record and orders documented therein, exceptions below {[id number]}
--- NOTE | 2020-10-03 15:41 | GI REPORT ---
Patient Name: Richard Lobo Procedure Date: 10/03/2020 2:43 PM Date of : 1945 Admit Type: Inpatient Age: 75 Gender: Male Attending MD: Joseph Vergara MD Procedure: Colonoscopy Providers: Joseph Vergara MD Referring MD: Referred Self Indications: Unexplained iron deficiency anemia Medicines: Monitored Anesthesia Care Complications: No immediate complications. Estimated blood loss: None. Estimated Blood Loss: Estimated blood loss: none. Procedure: Pre-Anesthesia Assessment: - Prior Anticoagulants: The patient has taken no previous anticoagulant or antiplatelet agents. After I obtained informed consent, the scope was passed under direct vision. Throughout the procedure, the patient's blood pressure, pulse, and oxygen saturations were monitored continuously. The Colonoscope was introduced through the anus and advanced to the cecum, identified by appendiceal orifice and ileocecal valve. The colonoscopy was performed without difficulty. The patient tolerated the procedure well. The quality of the bowel preparation was fair. Findings: Two sessile polyps were found in the transverse colon and cecum. The polyps were 7 mm in size. These polyps were removed with a cold snare. Resection and retrieval were complete. To repair the defect, the tissue edges were approximated and two hemostatic clips were successfully placed. Closure of the defect was successful. There was no bleeding at the end of the procedure. A 5 mm polyp was found in the ascending colon. The polyp was sessile. The polyp was removed with a cold snare. Resection and retrieval were complete. Estimated blood loss: none. Multiple small and large-mouthed diverticula were found in the sigmoid colon and descending colon. Impression: - Preparation of the colon was fair. - Two 7 mm polyps in the transverse colon and in the cecum, removed with a cold snare. Resected and retrieved. Clips were placed. - One 5 mm polyp in the ascending colon, removed with a cold snare. Resected and retrieved. - Diverticulosis in the sigmoid colon and in the descending colon. Recommendation: - Return patient to [facility] for ongoing care. suspect diverticulosis as possible etiology for his anemia. - Resume previous diet today. -trend H/H daily, supportive care Joseph Vergara MD 10/03/2020 3:40:55 PM This report has been signed electronically. Note Initiated On: 10/03/2020 2:43 PM Number of Addenda: 0 I attest to the content of the Intraoperative Record and orders documented therein, exceptions below {[id number]}
--- NOTE | 2020-10-03 15:50 | Procedure Note ---
Procedure Note Date of Service October 03, 2020 GI brief procedure note anemia EGD: unremarkable, no blood nor ulcers colonoscopy: diverticulosis, polyps removed suspect diverticulosis contributing to patient's anemia, possibly also his epistaxis that has been going on for a few weeks now. see procedure note for full details recs: supportive care avoid NSAIDS diet as tolerated trend h/h, transfuse prn f/u path results Joseph Vergara MD Gastroenterology Coding
--- NOTE | 2020-10-03 15:54 | Anesthesiology Progress Note ---
Date of Service October 03, 2020 Anesthesia Post Procedure Vital Signs Vital Signs: Temp Pulse Pulse Resp BP BP Pulse Ox 10/03/20 13:29 36.8 C 87 20 165/63 H 90 10/03/20 12:31 66 10/03/20 11:03 36.6 C 80 19 146/63 H 96 10/03/20 07:07 36.4 C L 73 19 142/67 H 98 10/03/20 03:55 36.7 C 76 18 135/67 97 10/02/20 23:18 36.7 C 72 18 128/55 L 98 10/02/20 20:00 36.4 C L 70 18 159/60 H 99 10/02/20 18:56 70 10/02/20 16:11 36.7 C 64 16 127/63 99 Transfer of Care Handoff Completed per policy Notes Mental Status: alert / awake / arousable and participated in evaluation Patient Amnestic to Procedure: Yes Nausea / Vomiting: adequately controlled Pain: adequately controlled Airway Patency, RR, SpO2: stable & adequate BP & HR: stable & adequate Hydration State: stable & adequate Anesthetic Complications: no major complications apparent and Pt Satisfied with anesthetic care
[2020-10-03 16:49] LABS: HCO3 ABG 37 mmol/L (19-24); Oxygen Saturation ABG 91.8 % (90-95); PCO2 ABG 69 mmHg (35-46); PO2 ABG 68 mmHg (80-95); pH ABG 7.35 (7.35-7.45)
[2020-10-03 16:52] LABS: Allen Test Pos (Pos)
[2020-10-03] MEDS ORDERED: WARFARIN SOD 5 MG TAB PO SCH (17:30)
--- NOTE | 2020-10-03 19:10 | Billing Data ---
Date of Service October 03, 2020 Coding Level of Care Code 98454 Subseq Hosp Care Lvl 2
--- NOTE | 2020-10-03 21:08 | Billing Data ---
Date of Service October 03, 2020 Coding Level of Care Code 89641 Initial Inpt Care Lvl 3
[2020-10-04] MEDS: PANTOprazole 40 MG in DEXTROSE 5% 100 ML IV SCH ×2 (01:34→05:56)
[2020-10-04] MEDS ORDERED: SODIUM CHLORIDE 0.65% NA SOLN 45 ML (OCEAN) ONE (05:50)
[2020-10-04 06:41] LABS: INR 1.3 (0.9-1.1); Prothrombin Time 13.1 Seconds (9.0-12.0)
[2020-10-04 06:47] LABS: Basophils # (auto) 0.01 K/uL (0-0.2); Basophils % (auto) 0.2 %; Eosinophils # (auto) 0.17 K/uL (0-0.5); Eosinophils % (auto) 2.8 %; Hematocrit (blood only) 30.1 % (42-52); Hemoglobin 8.5 g/dL (14.0-18.0); Lymphocytes # (auto) 0.58 K/uL (1.2-3.4); Lymphocytes % (auto) 9.6 %; Mean Corpuscular Hemoglobin 28.3 pg (25-34); Mean Corpuscular Hgb Conc 28.2 g/dL (32-36); Mean Corpuscular Volume 100.3 fL (80-100); Mean Platelet Volume 9.8 fL (7.4-10.4); Monocytes # (auto) 0.67 K/uL (0.11-0.59); Monocytes % (auto) 11.1 %; Neutrophils # (auto) 4.62 K/uL (1.4-6.5); Neutrophils % (auto) 76.3 %; Platelet Count 308 K/uL (130-400); RDW Coefficient of Variation 17.7 % (11.5-14.5); RDW Standard Deviation 64.7 fL (36.4-46.3); White Blood Count 6.05 K/uL (4.8-10.8)
[2020-10-04 07:21] LABS: BUN Creatinine Ratio 13.5 (10-20); Calcium 9.2 mg/dl (8.5-10.1); Creatinine Clr Calc Pharmacy 74.3 ml/min; Est GFR (African American) 96.9; Est GFR (Non-African American) 83.6; Potassium 4.7 mmol/L (3.5-5.1)
--- NOTE | 2020-10-04 07:55 | Discharge Summary ---
Date of Service October 04, 2020 Admission HPI Per Admitting Provider Mr. Lobo was brought in by his today. He has a PCP appt with Dr. Pete Castaneda. His iron levels and blood levels were down to 5 and was told by his PCP to come to the hospital. He had blood drawn because he was feeling more sluggish than usual. Mr. Lobo reports he has been feeling sluggish since having a heart attack in March 2020. He felt like after his heart attack he recovered a bit, but continued to be tired with a Hgb of 8 and started taking iron. In the last few weeks he feels his energy has been the same. Denies chest pain or chest pressure. Has not passed out, but has felt close when walking without oxygen. He is on 2L normally but has had to increase it to 5L due to fatigue. He is not short of breath layign in bed, but becomes extremely short of breath after 10 steps. He has a history of COPD and tobacco use, no recent wheezing. He reports his bowel movements have been dark since he started iron tablets. The have been 'voluminous and rather large, solid' and has been taking colace BID which seems to help. He has not noticed any texture or color changes inthe last few weeks. 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 No nausea or vomiting. When he takes morning pills without food in his stomach he can get a little nauseus, but reports that passes and does not recurr throughout the day. Urination: He has been peeing more fluid pills than normal. Is going every half hour to hour. Spironolactone was doubled Aug 31 for weight gain. Dry weight thought to be ~182-185. He is 187 today. He notes his weight changes with fluid intake. He has 10lbs or weight gain in the last week after drinkning fluid from being thirsty. Avoids salt. NO soup lately. Seen Dr. Burrell in the past. MEds: Doesn't know by heart. Just started trelogy. Alelrgies: NKDA MEdHx: Reviewed Tobacco: No tobacco products. No alchol. No recreational drugs. Lives at home with his with 50 year old son and 14 year old son. Noone sick in the home. COVID: No exposures pt knows of. Admission Exam Per Admitting Provider General: A&Ox3. NAD. Cooperative. Appears fatigued. HEENT: Atraumatic, normocephalic. Pallor present. Visual acuity grossly intact, hearing grossly intact. Pulm: CTAB A&P. -wheezes, -rales, -rhonchi. Symmetrical chest rise. No increased work of breathing. No respiratory distress. Cardiac: Systolic murmur present. Radial pulses intact and symmetrical. no JVD Abdominal: Nontender, nondistended, soft. BS present. Extremities: 2+ edema through the ankles and calf bilat. 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 Principal Diagnosis Acute Lower GI Bleed Discharge Exam Constitutional WD/WN, vitals as above Respiratory normal respiratory effort, lungs clear to auscultation Cardiovascular Rate/Rhythm: regular rate and regular rhythm Heart Sounds: normal S1, normal S2 (loud) and + murmur (2-6 systolic murmur in right upper sternal area) Gastrointestinal (Abdomen) normal bowel sounds, soft, nontender, no hepatosplenomegaly Skin no rashes, warm and dry Psychiatric A+Ox3, euthymic affect Discharge Data Allergies Allergy/AdvReac Type Severity Reaction Status Date / Time No Known Drug Allergies Allergy Verified 09/26/20 14:40 Consultations 10/01/20 19:53 ED Decision to Admit Stat 10/02/20 00:28 Consult Gastroenterology Routine Procedures Performed Operation Date: 10/03/20 10:10 Actual Procedures p Colonoscopy(Not Applicable) - Joseph Vergara MD s Esophagogastroduodenoscopy(Not Applicable) - Joseph Vergara MD Hospital Course (1) Anemia: Richard Lobo is a 75-year-old male with a past medical history of COPD with emphysema, prediabetes, tobacco use, recurrent anemia with GIB, 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 Acute Lower GI bleed - with symptomatic anemia and Hgb 5.2 - likely lower GI bleed given history of AVMs via Colonoscopy and supratherapeutic INR - Hgb 5.2 --> 8.4 after 3u pRBCs; Hgb 8.2 this AM - GI consulted: EGD unremarkable and colonoscopy showed several polyps that were resected as well as diverticulosis - suspect acute lower GI bleed 2/2 diverticulosis - tolerated full diet today, medically stable - close monitoring of CBC, also close monitoring of INR as mentioned below - avoid NSAIDs - follow up closely with PCP and Trauma Coordinator Anemia - MCV 99.1 (borderline) - vitamin B12 and folate WNL - iron 24 (L), ferritin 35.5, transferrin 252 - resume home iron supplement on discharge AVR - INR supratherapeutic, 5.4 --> 2.4 on 10/02, s/p VitK 5mg x2 in ED - INR 1.3 today - resumed warfarin 5mg on 10/03 as no signs of active GI bleed - patient will take 10 mg warfarin today and tomorrow, 5mg daily on Wednesday and plan for INR and dose adjustment per PCP on 10/07 - recommend frequent monitoring of INR and H/H as outpatient, given increased risk of clotting off mechanical aortic valve with subtherapeutic INR as well as risk of GI bleeds with supratherapeutic INR HFpEF - Last Echo 06/12/2020: EF 55-60% with normal systolic function - continue all home medications after discharge RAND, resolved - Cr 1.41 --> 0.81 after pRBC transfusions - BUN:Cr ratio >22 - suspect pre-renal 2/2 hypovolemia, improved with transfusions COPD - Continue MARINE BIOLOGIST inhalers Anxiety - Continue Lexapro (2) COPD with emphysema: (3) Bilateral pleural effusion: (4) Chronic respiratory failure with hypoxia: (5) Restrictive lung disease: (6) Exertional shortness of breath: (7) Acute kidney injury: (8) Prediabetes: Total Time Total Time Spent Total Time Spent (In Minutes): 30 minutes Total Time Includes: Examination of the Patient, Discharge Planning and Medication Reconciliation Discharge Plan Discharge Items Patient Disposition: Home - Self-Care Reason For Visit: ANEMIA Discharge Diagnosis: Acute Lower GI Bleed Activity: Per Instructions section Non-emergency contact: Primary Care Provider and Trauma Coordinator Call non-emergency contact if: you have any medication questions, your symptoms worsen and you have a fever Follow-up/Referrals: Robert Owen MD [Primary Care Provider] - Diet: Carb Consistent or DM2 and Heart Healthy Addtl Attending Provider Instructions: You were admitted to [facility] on 10/01/2020 for progressive fatigue and chronic dark stools with a low hemoglobin of 5.2. 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 You received 3 units of packed red blood cells - your hemoglobin improved to 8.4. The GI team was consulted and you were bowel prepped for a colonoscopy as well as an upper endoscopy on 10/03 to investigate for a source of GI bleeding. The upper endoscopy was normal and the colonoscopy showed several polyps and an outpouching of the colon called diverticulosis. The polyps were removed and the diverticulosis did not show signs of active bleeding, although this was determined to be the source of chronic GI bleeding. Your warfarin was stopped for 2 days due to the high INR, and the warfarin was restarted on 10/03 due to the need for anti-coagulation given that you had an aortic valve replacement. You improved in the hospital and did well after the blood. You will be discharged on 10/04/2020 in good, stable condition. You should take one pill of Warfarin 5mg at 4pm today. Then, you should take Warfarin 10 mg tomorrow (2 pills) on Wednesday, and starting on Wednesday you should start to take Warfarin 5 mg daily (1 pill). You should follow up closely with your PCP and heart failure doctor, and you should get a blood test for INR and Hemoglobin on Wednesday. You will need to have frequent monitoring of your INR on Warfarin, as well as frequent monitoring of your hemoglobin. There is a possibility that you would need future blood transfusion, as you need to be on anticoagulation for the aortic valve, and you also have a tendency to have GI bleeding. You should continue taking all of your other home medications as prescribed. Pending Studies at Discharge: No Stand-Alone Forms: My [facility], Smoking Cessation Medications and DC Order Prescriptions: Continued metoprolol tartrate 25 mg tablet 25 mg PO BID Qty: 60 RF: 2 Trelegy Ellipta 100-62.5-25 mcg blister with device 1 inh inhalation DAILY Qty: 60 RF: 3 sodium chloride 0.65 % aerosol,spray 2 sprays INTNAS BID RF: 0 docusate sodium 100 mg capsule 100 mg PO BID RF: 0 potassium chloride 20 mEq tablet extended release 20 meq PO BID RF: 0 magnesium 250 mg tablet 250 mg PO DAILY RF: 0 escitalopram oxalate 20 mg tablet 20 mg PO DAILY RF: 0 lorazepam 0.5 mg tablet 0.5 mg PO DAILY PRN (Reason: Anxiety) RF: 0 atorvastatin 80 mg tablet 80 mg PO DAILY RF: 0 pantoprazole 40 mg tablet,delayed release (DR/EC) 40 mg PO BID RF: 0 multivitamin [Multiple Vitamins] Tablet 1 tab PO DAILY RF: 0 warfarin 5 mg tablet 5 mg PO Q OTHER DAY RF: 0 calcium carbonate 600 mg calcium (1,500 mg) tablet 600 mg PO BID RF: 0 ferrous sulfate 325 mg (65 mg iron) tablet 325 mg PO BID RF: 0 bumetanide 2 mg tablet 4 mg PO BID RF: 0 acetaminophen 325 mg capsule 325 mg PO QID PRN (Reason: Pain) RF: 0 ipratropium-albuterol 0.5 mg-3 mg(2.5 mg base)/3 mL solution for nebulization 3 ml inhalation Q8H PRN (Reason: COPD) Qty: 180 RF: 2 spironolactone 25 mg tablet 25 mg PO BID 30 Days Qty: 60 RF: 3 metolazone 2.5 mg tablet 2.5 mg PO Q OTHER DAY PRN (Reason: fluid build up) RF: 0 Discontinued warfarin 5 mg tablet 7.5 mg PO Q OTHER DAY RF: 0 Discharge Orders: Discharge Order (Routine); Ordered 10/04/20 Ordered By: Jorden Ballard Admission Data Admit Date/Time: 10/01/20 22:54 Attending Provider: Carlton Veloz Admit Provider: Bran Nathan Primary Care Provider: Robert Owen Other Providers: Liang Loomis ; Gibson Newell Other Interventions: Discharge Summary Assessment (RN) Last Done: 10/04/20 12:49 Supervising Physician Co-Signing Physician Notes I personally examined the patient and verified all verma points of history and exam, discussed case, and agree with decision making with Dr Ballard. feeling good already dressed and wants to go home. discussed follow up plans, risks/benefits extensively. vitals ntoed nad heent nc at mmm breathing unlabored no accessory muscles good effort skin no rashes no pallor or icterus acute blood loss anemia - GI bleeding - strongly suspect AVMs accentuated by anticoagulation. improved after transfusion. difficult balance due to AVR requiring anticoaguation and AVMs causing bleeding - probably will just need to target INR as close to 2.5 as possible, follow closely, follow Hgb very close, replace iron ongoing and anticipate a need for periodic transfusions. stable for home - discussed risk/benefit w anticoagulation at the current time/situation -- for AVR would consider bridging, but coming off of major bleed the time where parenteral anticoagulation has his blood thin and INR [id number] this overlap period would be high risk for bleed - unsafe to do as outpt. keeping in the hospital to bridge anticoagulation for another 3-4 days raises significant risk of nosocomial infection and deconditioning. since aortic valve not overly risky for clot mp - we discussed this - titrate coumadin up. 10mg tom then 5mg wednesday then INR (and Hgb) wednesday. pt expressed understanding. chronic diastolic CHF - stable. Resident Activity Tracking Resident Involvement: Resident Care Provided Care Provided: Adult Hospital Medicine
[2020-10-04] MEDS ORDERED: WARFARIN SOD 5 MG TAB PO ONE (09:12)
[2020-10-04] MEDS: UMECLIDINIUM/VILANTEROL 62.5/25MCG 7 PUFFS/INHALER INH SCH (09:26)
[2020-10-04] MEDS: ESCITALOPRAM OXALATE 20 MG TAB PO SCH (09:26)
[2020-10-04] MEDS: CYANOCOBALAMIN 500 MCG TABLET (VITAMIN B-12) PO SCH ×2 (09:27→09:30)
[2020-10-04] MEDS: FLUTICASONE FUROATE 100MCG 14 PUFFS/INHALER INH SCH (09:28)
[2020-10-04] MEDS: FOLIC ACID 1 MG TAB PO SCH (09:30)
--- NOTE | 2020-10-04 19:15 | Billing Data ---
Date of Service October 04, 2020 Coding Level of Care Code D/C Day Management <30 mins
== END 2020-10-04 13:25 | disposition home or self-care (01) | DRG 378 ==
LOC: ED 19:11 → 2S 22:54 → SUATTDRO 22:54 → 2S 23:59 → 3N 10-03 19:10

== ENCOUNTER 2022-03-22 10:09 | Inpatient (IN) ==
[2022-03-22 10:45] LABS: Basophils # (auto) 0.02 K/uL (0-0.2); Basophils % (auto) 0.2 %; Eosinophils % (auto) 0.8 %; Hematocrit (blood only) 25.9 % (42-52); Hemoglobin 7.5 g/dL (14.0-18.0); Immature Granulocytes # (auto) 0.07 K/uL (0.00-0.02); Immature Granulocytes % (auto) 0.6 %; Lymphocytes # (auto) 0.92 K/uL (1.2-3.4); Lymphocytes % (auto) 7.7 %; Mean Corpuscular Hemoglobin 27.6 pg (25-34); Mean Corpuscular Volume 95.2 fL (80-100); Mean Platelet Volume 9.5 fL (7.4-10.4); Monocytes # (auto) 0.53 K/uL (0.11-0.59); Monocytes % (auto) 4.4 %; Neutrophils # (auto) 10.29 K/uL (1.4-6.5); Neutrophils % (auto) 86.3 %; Nucleated RBC # (auto) 0.02 K/uL (0-0); Nucleated RBC % (auto) 0.2 %; Platelet Count 529 K/uL (130-400); RDW Coefficient of Variation 13.7 % (11.5-14.5); RDW Standard Deviation 47.7 fL (36.4-46.3); Red Blood Count 2.72 M/uL (4.7-6.1); White Blood Count 11.93 K/uL (4.8-10.8)
[2022-03-22 10:53] LABS: Albumin Globulin Ratio 1.2 (0.9-2); Albumin Level 3.6 gm/dl (3.4-5.0); BUN Creatinine Ratio 35.8 (10-20); Bilirubin,Total 0.3 mg/dl (0.2-1.0); Calcium 9.7 mg/dl (8.5-10.1); Creatinine Clr Calc Pharmacy 55.6 ml/min; Est GFR (African American) 77.5 ml/min; Est GFR (Non-African American) 66.9 ml/min; Magnesium 2.5 mg/dl (1.7-2.4); Potassium 4.9 mmol/L (3.5-5.1); Total Protein 6.6 gm/dl (6.0-8.3)
[2022-03-22 11:03] LABS: INR 1.1 (0.9-1.1); Partial Thromboplastin Time 26.2 Seconds (21.0-31.0); Prothrombin Time 11.4 Seconds (9.0-12.0)
[2022-03-22] MEDS ORDERED: ALBUT/IPRATROP 3MG/0.5MG NEB 3 ML VIAL NEB ONE (11:03)
[2022-03-22] MEDS: NICOTINE 14 MG/24 HR PATCH TD SCH (11:07)
[2022-03-22 11:13] LABS: Basophilic Stippling Occasional; Polychromasia 1+
--- NOTE | 2022-03-22 11:18 | Emergency Department Note ---
Impression & Plan Acute exacerbation of chronic obstructive pulmonary disease, Chronic respiratory failure with hypoxia, Anemia ED Provider Note NAME: TIEN PIERCE AGE: 76 SEX: M : 1945 ARRIVES VIA: Ambulance INFORMANT: Patient, ED PROVIDER(S): Mj Ramsay DO CHIEF COMPLAINT: Difficulty breathing HPI: The patient is a 76-year-old male who has a history of COPD who presented to the emergency department for evaluation of difficulty breathing. The patient apparently has had ongoing symptoms for the last few weeks. He was seen in our facility a few days ago with similar complaints. At that time he was slated to be admitted but he decided to sign out AGAINST MEDICAL ADVICE. The patient was found today with an oxygen saturation in the 70s. He also was found holding his home oxygen against his face with severe difficulty breathing. He was treated with Solu-Medrol prior to arrival. He does continue to use tobacco products. He denies having any hemoptysis. He states he has had a cough which is nonproductive. He denies having any lower extremity swelling. He denies having any chest pain. He states has been compliant with his usual outpatient medications. The patient states his symptoms are mildly improved at this time. ROS: See above HPI for pertinent positives & negatives. A total of 10 systems reviewed and were otherwise negative. PAST MEDICAL HISTORY: See Below PAST SURGICAL HISTORY: See Below FAMILY HISTORY: See Below SOCIAL HISTORY: See Below HOME MEDICATIONS: See Below ALLERGIES: See Below VITALS: See Below PHYSICAL EXAMINATION: GENERAL: The patient is awake and alert. He is very anxious appearing appears to be having difficulty breathing. EYES: The conjunctivae are clear. The pupils are round and reactive. EARS, NOSE, MOUTH AND THROAT: The nose is without any evidence of any deformity. NECK: The neck is nontender and supple. RESPIRATORY: Diminished breath sounds are noted throughout especially in the left base. There were rales in the right base as well. Faint expiratory wheezing was noted throughout. CARDIOVASCULAR: Regular rate and rhythm noted there no murmurs rubs or gallops normal S1 normal S2. GASTROINTESTINAL: The abdomen is soft. Abdomen is nontender. MUSCULOSKELETAL/EXTREMITIES: There is no evidence of gross deformity full range of motion is noted in the hips and shoulders. SKIN: There is no obvious evidence of any rash. Skin is warm and dry. Trace pedal edema was noted bilaterally. NEUROLOGIC: Patient is awake alert and oriented x3 MEDICAL DECISION MAKING: The patient is a 76-year-old male who presented to the emergency department for an evaluation of difficulty breathing. The patient has a history of COPD. He continues to use tobacco products. The patient was seen in our facility recently with similar complaints but was able to leave AGAINST MEDICAL ADVICE. He presents today with significant increase in worsening symptoms. I discussed patient's laboratory and radiographic studies with him. [facility] have agreed to evaluate the patient in the emergency department for further management and disposition. Triage Nursing notes reviewed. Prior medical records reviewed Vital Signs: reviewed and remarkable for hypoxia Differential diagnosis: Reactive airway disease, pneumonia, pneumothorax, COPD, CHF, infections, cardiac ischemia, pulmonary embolism, musculoskeletal, gastrointestinal, as well as other pathologies. ER treatment provided: See below Diagnostics interpreted by me: ECG: EKG was obtained in the emergency department. My interpretation is sinus rhythm at 91 bpm. There were no PVCs noted. Left bundle branch block pattern was noted. Nonspecific ST segment depressions were noted in the inferior and the lateral leads. This was compared to a tracing from March 19, 2022. The ST segment depressions are increased compared to the earlier tracing. Cardiac Monitoring: An order was placed for continuous cardiac monitoring. The monitor shows a rate of 83 bpm with sinus rhythm. Laboratory studies: As stated above and show below. Imaging studies: See below Consultation(s): I discussed this case with Dr. Barger who [facility] ED COURSE: Procedures: none PDMP:reviewed and no issues Critical Care: I have personally spent greater than 35 minutes of critical care time in the direct management of this patient. This includes bedside care, interpretation of diagnostic studies, and testing, discussion with consultants, patient, and family members, and other required patient management activities. This 35 minutes is in excess of all separately billable procedures. Past Med/Surg History Medical History Acute GI bleeding Anemia Aortic stenosis severe asymptomatic Chronic obstructive pulmonary disease OXYGEN 5L/MIN NC HS Chronic shortness of breath Dependent edema PRN diuretics History of carotid artery disease S/P L CEA 2013 History of GI bleed Hypertension Tobacco use disorder Surgical History History of appendectomy History of cataract surgery BILAT History of colonoscopy History of esophagogastroduodenoscopy (EGD) History of left-sided carotid endarterectomy 2014 History of tonsillectomy History of tooth extraction Toenail avulsion REMOVAL OF Family History Father Hypertension Mother Hypotension Breast cancer Other No family history of adverse response to anesthesia No family history of bleeding disorder Social History Smoking Status: Current every day smoker Tobacco Type: Cigarettes packs per day: 1; Second Hand Exposure: Yes; Hx Alcohol Use: Yes Alcohol type: hard liquor Alcohol Intake Frequency: Monthly or Less Alcohol Intake Frequency Comment: 1 bottle of Manny Dupree a month Hx Substance Use: No Preferred Language: Croatian Communication Ability: Effective Visual Impairment: No Limitations 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 Required: No Beliefs That Will Affect Care: None marital status: Current Living Situation: Spouse current occupational status: retired Feels Safe at Home: Yes Assistive Devices: Oxygen - Continuous Allergies Allergies Allergy/AdvReac Type Severity Reaction Status Date / Time No Known Drug Allergies Allergy NKDA Verified 03/19/22 11:46 Home Meds Home Medications Medication Instructions Recorded Confirmed atorvastatin 80 mg tablet 80 mg PO QPM 05/20/20 03/19/22 magnesium 250 mg tablet 250 mg PO DAILY 05/20/20 03/19/22 potassium chloride 20 mEq 20 meq PO BID 05/20/20 03/19/22 tablet,extended release multivitamin (Multiple Vitamins) 1 tab PO DAILY 05/21/20 03/19/22 docusate sodium 100 mg capsule 100 mg PO BID 06/10/20 03/19/22 acetaminophen 325 mg capsule 650 mg PO QID PRN 06/11/20 03/19/22 ferrous sulfate 325 mg (65 mg 65 mg PO BID tab 02/27/21 03/19/22 iron) tablet pantoprazole 40 mg tablet,delayed 40 mg PO QPM tab 08/12/21 03/19/22 release bumetanide 2 mg tablet See Rx Instructions PO BID tab 02/12/22 03/19/22 escitalopram oxalate 10 mg tablet 10 mg PO DAILY 02/12/22 03/19/22 aspirin 81 mg tablet,delayed 81 mg PO QPM 03/19/22 03/19/22 release (Adult Low Dose Aspirin) Previous Rx's Medication Instructions Recorded spironolactone 25 mg tablet 25 mg PO BID 30 Days #60 tab 09/30/20 fluticasone fur. 100 mcg-umeclid 1 inh INHALATION DAILY #3 inhaler 09/30/21 62.5 mcg-vilant 25 mcg inhalat.powder (Trelegy Ellipta) nicotine (polacrilex) 2 mg gum 2 mg BUCCAL Q2H PRN #120 ea 09/30/21 azelastine 137 mcg (0.1 %) nasal 2 spray INTRANASAL DAILY #30 ml 03/10/22 spray aerosol Results & Data (ED) Vital Signs Vital Signs - 24 hr 03/22/22 10:16 03/22/22 10:21 03/22/22 10:23 Temperature 36.4 C L Temperature Source Oral Pulse Rate 92 H 88 92 H Pulse Rate [Apical] 92 H Pulse Rate from SpO2 Sensor 93 H Respiratory Rate 23 20 20 Respiratory Effort / Characteristics Spontaneous Spontaneous Labored Respiratory Depth Normal Respiratory Pattern Regular Regular Blood Pressure 154/53 H Blood Pressure [Right Arm] 154/53 H Blood Pressure Mean 86 Blood Pressure Mean [Right Arm] 86 Pulse Oximetry 97 94 98 Oxygen Delivery Method BiPAP BiPAP Fraction of Inspired Oxygen 35 35 SaO2/FiO2 Ratio 280 Sepsis Recent Fever Within 48 Hours No Sepsis New/Unexplained Change in Mental Status No Sepsis Action Taken by Nursing No Action Required Fraction of Inspired Oxygen - Titration 35 03/22/22 10:30 03/22/22 10:32 03/22/22 11:00 Temperature Temperature Source Pulse Rate 79 78 96 H Pulse Rate [Apical] Pulse Rate from SpO2 Sensor 80 97 H Respiratory Rate 24 24 25 H Respiratory Effort / Characteristics Respiratory Depth Respiratory Pattern Blood Pressure Blood Pressure [Right Arm] Blood Pressure Mean Blood Pressure Mean [Right Arm] Pulse Oximetry 93 94 89 L Oxygen Delivery Method BiPAP BiPAP BiPAP Fraction of Inspired Oxygen SaO2/FiO2 Ratio Sepsis Recent Fever Within 48 Hours Sepsis New/Unexplained Change in Mental Status Sepsis Action Taken by Nursing Fraction of Inspired Oxygen - Titration 03/22/22 11:30 Temperature Temperature Source Pulse Rate 83 Pulse Rate [Apical] Pulse Rate from SpO2 Sensor Respiratory Rate 23 Respiratory Effort / Characteristics Respiratory Depth Respiratory Pattern Blood Pressure 133/47 L Blood Pressure [Right Arm] Blood Pressure Mean 75 Blood Pressure Mean [Right Arm] Pulse Oximetry Oxygen Delivery Method Fraction of Inspired Oxygen SaO2/FiO2 Ratio Sepsis Recent Fever Within 48 Hours Sepsis New/Unexplained Change in Mental Status Sepsis Action Taken by Nursing Fraction of Inspired Oxygen - Titration Home Medications Current Medication List: was personally reviewed by me Laboratory Data Attestation: I reviewed the patient's lab results. Result diagrams: 03/22/22 10:20 03/22/22 10:20 Lab Results 03/22/22 03/22/22 03/22/22 Range/Units 10:13 10:20 10:20 WBC 11.93 H (4.8-10.8) K/uL RBC 2.72 L (4.7-6.1) M/uL Hgb 7.5 L (14.0-18.0) g/dL Hct 25.9 L (42-52) % MCV 95.2 (80-100) fL MCH 27.6 (25-34) pg MCHC 29.0 L (32-36) g/dL RDW Std Deviation 47.7 H (36.4-46.3) fL RDW Coeff of [place] 13.7 (11.5-14.5) % Plt Count 529 H (130-400) K/uL MPV 9.5 (7.4-10.4) fL Immature Gran % (Auto) 0.6 % Neut % (Auto) 86.3 % Lymph % (Auto) 7.7 % [place] % (Auto) 4.4 % Eos % (Auto) 0.8 % Baso % (Auto) 0.2 % Neut # (Auto) 10.29 H (1.4-6.5) K/uL Lymph # (Auto) 0.92 L (1.2-3.4) K/uL [place] # (Auto) 0.53 (0.11-0.59) K/uL Eos # (Auto) 0.10 (0-0.5) K/uL Baso # (Auto) 0.02 (0-0.2) K/uL Immature Gran # (Auto) 0.07 H (0.00-0.02) K/uL Absolute Nucleated RBC 0.02 H (0-0) K/uL Nucleated RBC % (auto) 0.2 % Polychromasia 1+ Basophilic Stippling Occasional PT 11.4 (9.0-12.0) Seconds INR 1.1 (0.9-1.1) APTT 26.2 (21.0-31.0) Seconds PTT Ratio 1.0 Sodium (136-145) mmol/L Potassium (3.5-5.1) mmol/L Chloride (98-107) mmol/L Carbon Dioxide (21-32) mmol/L Anion Gap (3-11) BUN (6-23) mg/dl Creatinine (0.6-1.4) mg/dl Est Cr Clr Drug Dosing ml/min Est GFR ( Amer) ml/min Est GFR (Non-Af Amer) ml/min BUN/Creatinine Ratio (10-20) Glucose (70-99(Fasting)) mg/dl Calcium (8.5-10.1) mg/dl Magnesium (1.7-2.4) mg/dl Total Bilirubin (0.2-1.0) mg/dl AST (13-39) U/L ALT (7-52) U/L Alkaline Phosphatase (34-104) U/L Total Protein (6.0-8.3) gm/dl Albumin (3.4-5.0) gm/dl Globulin (2.5-4.0) gm/dl Albumin/Globulin Ratio (0.9-2) SARS-CoV-2 (PCR) NEGATIVE (Negative) Influenza Type A (PCR) Negative (Neg) Influenza Type B (PCR) Negative (Neg) RSV (RT-PCR) Negative (Neg) 03/22/22 Range/Units 10:20 WBC (4.8-10.8) K/uL RBC (4.7-6.1) M/uL Hgb (14.0-18.0) g/dL Hct (42-52) % MCV (80-100) fL MCH (25-34) pg MCHC (32-36) g/dL RDW Std Deviation (36.4-46.3) fL RDW Coeff of [place] (11.5-14.5) % Plt Count (130-400) K/uL MPV (7.4-10.4) fL Immature Gran % (Auto) % Neut % (Auto) % Lymph % (Auto) % [place] % (Auto) % Eos % (Auto) % Baso % (Auto) % Neut # (Auto) (1.4-6.5) K/uL Lymph # (Auto) (1.2-3.4) K/uL [place] # (Auto) (0.11-0.59) K/uL Eos # (Auto) (0-0.5) K/uL Baso # (Auto) (0-0.2) K/uL Immature Gran # (Auto) (0.00-0.02) K/uL Absolute Nucleated RBC (0-0) K/uL Nucleated RBC % (auto) % Polychromasia Basophilic Stippling PT (9.0-12.0) Seconds INR (0.9-1.1) APTT (21.0-31.0) Seconds PTT Ratio Sodium 139 (136-145) mmol/L Potassium 4.9 (3.5-5.1) mmol/L Chloride 94 L (98-107) mmol/L Carbon Dioxide 40 H (21-32) mmol/L Anion Gap 5 (3-11) BUN 38 H (6-23) mg/dl Creatinine 1.06 (0.6-1.4) mg/dl Est Cr Clr Drug Dosing 55.6 ml/min Est GFR ( Amer) 77.5 ml/min Est GFR (Non-Af Amer) 66.9 ml/min BUN/Creatinine Ratio 35.8 H (10-20) Glucose 139 H (70-99(Fasting)) mg/dl Calcium 9.7 (8.5-10.1) mg/dl Magnesium 2.5 H (1.7-2.4) mg/dl Total Bilirubin 0.3 (0.2-1.0) mg/dl AST 21 (13-39) U/L ALT 16 (7-52) U/L Alkaline Phosphatase 63 (34-104) U/L Total Protein 6.6 (6.0-8.3) gm/dl Albumin 3.6 (3.4-5.0) gm/dl Globulin 3.0 (2.5-4.0) gm/dl Albumin/Globulin Ratio 1.2 (0.9-2) SARS-CoV-2 (PCR) (Negative) Influenza Type A (PCR) (Neg) Influenza Type B (PCR) (Neg) RSV (RT-PCR) (Neg) Administered Medications Nicotine (Nicotine 14 Mg/24 Hr Patch) 14 mg TD QAM MARZENA Stop: 05/31/22 11:14 Last Admin: 03/22/22 11:07 Dose: 14 mg Documented by: [id number] Discontinued Medications Albuterol (Albut/Ipratrop 3mg/0.5mg Neb 3 Ml Vial) 12 ml NEB ONE ONE; Protocol Stop: 03/22/22 11:04 Last Admin: 03/22/22 11:08 Dose: 12 ml Documented by: [id number] Imaging Data Radiologist's Impression: Chest X-Ray 03/22/22 10:30 SINGLE VIEW CHEST CLINICAL HISTORY: Dyspnea. FINDINGS: An AP, portable, upright chest radiograph is compared to study dated 03/19/2022 and correlated with chest CT dated 08/22/2020. The examination is degraded by portable technique and apical lordotic positioning. There is evidence of previous cardiac valve surgery. The heart is enlarged noting atherosclerotic calcification of the thoracic aorta. The pulmonary vasculature is noncongested. Enlargement of the central pulmonary arteries suggests pulmonary artery hypertension. Emphysema and chronic interstitial thickening is similar to previous. There are small pleural effusions with bibasilar consolidation. Foci of parenchymal scarring are seen throughout both lungs. No pneumothorax is seen. The skeletal structures are osteopenic. The bony thorax is grossly intact. IMPRESSION: 1. Cardiomegaly and emphysema with no radiographic evidence of congestive failure. 2. There are small pleural effusions with bibasilar consolidation. This could represent scarring/atelectasis versus pneumonia/aspiration pneumonitis. Clinical correlation will be required and radiographic follow-up to resolution is recomme nded. ACT 112: Negative or not required by law. Electronically signed by: Arun Christensen M.D. 03/22/2022 11:27 AM Discharge Plan Visit Data Chief Complaint: Shortness of Breath/Dyspnea Stated Complaint: RESP. DIFF. ED Provider: Mj Ramsay Discharge Problem: Acute exacerbation of chronic obstructive pulmonary disease, Chronic respiratory failure with hypoxia, Anemia Patient Disposition: Being Evaluated by Hospitalist Forms Stand Alone Forms: [facility] Prescriptions Prescriptions: No Action docusate sodium 100 mg capsule 100 mg PO BID RF: 0 Trelegy Ellipta 100-62.5-25 mcg blister with device 1 inh inhalation DAILY Qty: 3 RF: 1 nicotine (polacrilex) 2 mg gum 2 mg buccal Q2H PRN (Reason: nicotine cravings) Qty: 120 RF: 3 escitalopram oxalate 10 mg tablet 10 mg PO DAILY RF: 0 potassium chloride 20 mEq tablet extended release 20 meq PO BID RF: 0 magnesium 250 mg tablet 250 mg PO DAILY RF: 0 atorvastatin 80 mg tablet 80 mg PO QPM RF: 0 multivitamin [Multiple Vitamins] Tablet 1 tab PO DAILY RF: 0 ferrous sulfate 325 mg (65 mg iron) tablet 65 mg PO BID RF: 0 pantoprazole 40 mg tablet,delayed release (DR/EC) 40 mg PO QPM RF: 0 acetaminophen 325 mg capsule 650 mg PO QID PRN (Reason: Pain) RF: 0 spironolactone 25 mg tablet 25 mg PO BID 30 Days Qty: 60 RF: 3 bumetanide 2 mg tablet See Rx Instructions PO BID RF: 0 azelastine 137 mcg (0.1 %) aerosol,spray 2 spray intranasal DAILY Qty: 30 RF: 3 aspirin [Adult Low Dose Aspirin] 81 mg tablet,delayed release (DR/EC) 81 mg PO QPM RF: 0 Referrals Referrals: Robert Owen MD [Primary Care Provider] -
[2022-03-22 11:28] LABS: Influenza A virus by PCR Negative (Neg); Influenza B virus by PCR Negative (Neg); RSV by PCR Negative (Neg); SARS CoV2 RNA(COVID-19) InHosp NEGATIVE (Negative)
--- NOTE | 2022-03-22 11:29 | XRay Report ---
SINGLE VIEW CHEST CLINICAL HISTORY: Dyspnea. FINDINGS: An AP, portable, upright chest radiograph is compared to study dated 03/19/2022 and correlat ed with chest CT dated 08/22/2020. The examination is degraded by portable technique and apical lordot ic positioning. There is evidence of previous cardiac valve surgery. The heart is enlarged noting ath erosclerotic calcification of the thoracic aorta. The pulmonary vasculature is noncongested. Enlargem ent of the central pulmonary arteries suggests pulmonary artery hypertension. Emphysema and chronic i nterstitial thickening is similar to previous. There are small pleural effusions with bibasilar conso lidation. Foci of parenchymal scarring are seen throughout both lungs. No pneumothorax is seen. The s keletal structures are osteopenic. The bony thorax is grossly intact. IMPRESSION: 1. Cardiomegaly and emphysema with no radiographic evidence of congestive failure. 2. There are small pleural effusions with bibasilar consolidation. This could represent scarring/atel ectasis versus pneumonia/aspiration pneumonitis. Clinical correlation will be required and radiograph ic follow-up to resolution is recommended. ACT 112: Negative or not required by law. Electronically signed by: Arun Christensen M.D. 03/22/2022 11:27 AM
[2022-03-22] MEDS ORDERED: cefTRIAXone SODIUM 1,000 MG/50 ML BAG IV STA (11:43)
[2022-03-22 11:55] LABS: Base Excess VBG 11.9 mEq/L; HCO3 VBG 40 mmol/L; PCO2 VBG 81 mmHg (38-50); PO2 VBG 33 mmHg; pH VBG 7.31 (7.36-7.41)
[2022-03-22] MEDS ORDERED: cefTRIAXone SODIUM 2,000 MG/70 ML BAG IV STA (11:56)
[2022-03-22] MEDS ORDERED: SODIUM CHLORIDE 0.9% 1000ML 1,000 ML IV ONE (12:01)
[2022-03-22 12:11] LABS: Oxygen Saturation VBG < 60.0 %
--- NOTE | 2022-03-22 12:38 | History & Physical Report ---
Date of Service March 22, 2022 Assessment & Plan (1) Acute exacerbation of chronic obstructive pulmonary disease: Plan: Ongoing for "weeks" per patient, but more severe in last few days. - DuoNebs Q4h + PRN - Steroids - Continue abx for now (procalcitonin, MRSA swab, & sputum cx ordered) - CT chest ordered (prior pulm visit notes desire for repeat CT this month in any event) - Support with CPAP/BiPap PRN -> Presently patient looks fairly comfortable, so will allow it to come off for food/drink if RN and RT feel comfortable with it. (2) Anemia: Plan: Has hx of GI bleeds with duodenal/jejunal AVMs per history. Has followed with Dr. Troy ([facility]) for iron infusions. Denies any signs/symptoms of current GI bleed to me on admission. Is taking oral iron, so stools are already dark. - Will get full anemia labs - Consider transfusion given there may be some element of symptomatic anemia with his shortness of breath. Will closely monitor response to pulmonary treatments to see if this resolves his dyspnea. -> Type and screen done in ER (3) Chronic diastolic (congestive) heart failure: Plan: Follows with Dr. De. On my exam, appears euvolemic. Some mild, chronic LE edema, but no JVD and no CXR evidence of pulmonary edema. - BNP pending - Continue home Bumex - Hold metolazone and spironolactone for now as he appears on the "dry side" of euvolemia, and he will have reduced salt and fluid intake while he is on/off BiPap. (4) CAD (coronary artery disease): Plan: This is on chart, but no LHC that I see, and no mention of his CAD status in Dr. De's prior notes. No chest pain today, and prior HS troponins were negative. EKG stable. 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 - Continue above meds (6) Anxiety: Plan: Has caused him to leave AMA previously. QTc stable at 450. - Continue home escitalopram - Hydroxyzine PRN (7) DVT prophylaxis: Plan: SCDs - Hold heparin products for significant anemia and hx of GI bleeding FULL CODE - Discussed with patient. This is different than on his prior admission, but he did say he presently wants to be full code as he "feels well." Can discuss palliative care consult in 1-2 days if he has not significantly improved. History of Present Illness Primary Care Provider: Robert Owen MD 76yo M w/ hx of COPD and active tobacco use who presents with shortness of breath. The patient reports shortness of breath for "weeks," but reports it may have been getting worse more recently. He also reports increased cough and does report some productively, but no change in sputum amount or purulence. He denies fevers/chills, nausea, vomiting, chest pain, lightheadedness, dizziness, or other systemic symptoms. He reports darker stool, but reports this is from his iron and denies any change in color or consistency of stool in the last few weeks. He does feel his appetite is a bit lower than usual. He reports no changes in urination. He was in the ER and admitted on April 18, but left AMA when he was not able to smoke. Allergies Allergy/AdvReac Type Severity Reaction Status Date / Time No Known Drug Allergies Allergy NKDA Verified 03/22/22 12:27 Home Medications Medication Instructions Recorded Confirmed Type atorvastatin 80 mg tablet 80 mg PO QPM 05/20/20 03/22/22 History magnesium 250 mg tablet 250 mg PO DAILY 05/20/20 03/22/22 History potassium chloride 20 mEq 20 meq PO BID 05/20/20 03/22/22 History tablet,extended release multivitamin (Multiple Vitamins) 1 tab PO DAILY 05/21/20 03/22/22 History docusate sodium 100 mg capsule 100 mg PO BID 06/10/20 03/22/22 History acetaminophen 325 mg capsule 650 mg PO QID PRN 06/11/20 03/22/22 History spironolactone 25 mg tablet 25 mg PO BID 30 Days #60 tab 09/30/20 03/22/22 Rx ferrous sulfate 325 mg (65 mg 65 mg PO BID tab 02/27/21 03/22/22 History iron) tablet pantoprazole 40 mg tablet,delayed 40 mg PO QPM tab 08/12/21 03/22/22 History release fluticasone fur. 100 mcg-umeclid 1 inh INHALATION DAILY #3 inhaler 09/30/21 03/22/22 Rx 62.5 mcg-vilant 25 mcg inhalat.powder (Trelegy Ellipta) nicotine (polacrilex) 2 mg gum 2 mg BUCCAL Q2H PRN #120 ea 09/30/21 03/22/22 Rx bumetanide 2 mg tablet See Rx Instructions PO BID tab 02/12/22 03/22/22 History escitalopram oxalate 10 mg tablet 10 mg PO DAILY 02/12/22 03/22/22 History azelastine 137 mcg (0.1 %) nasal 2 spray INTRANASAL DAILY #30 ml 03/10/22 03/22/22 Rx spray aerosol aspirin 81 mg tablet,delayed 81 mg PO QPM 03/19/22 03/22/22 History release (Adult Low Dose Aspirin) calcium 300 mg chewable tablet 600 mg PO BID 03/22/22 03/22/22 History metolazone 2.5 mg tablet 2.5 mg PO UD 03/22/22 03/22/22 History metoprolol tartrate 25 mg tablet 25 mg PO BID 03/22/22 03/22/22 History Past Med/Surg History Medical History Acute GI bleeding Anemia Aortic stenosis severe asymptomatic Chronic obstructive pulmonary disease OXYGEN 5L/MIN NC HS Chronic shortness of breath Dependent edema PRN diuretics History of carotid artery disease S/P L CEA 2014 History of GI bleed Hypertension Tobacco use disorder Surgical History History of appendectomy History of cataract surgery BILAT History of colonoscopy History of esophagogastroduodenoscopy (EGD) History of left-sided carotid endarterectomy 2014 History of tonsillectomy History of tooth extraction Toenail avulsion REMOVAL OF Family History Father Hypertension Mother Hypotension Breast cancer Other No family history of adverse response to anesthesia No family history of bleeding disorder Social History Smoking Status: Current every day smoker Tobacco Type: Cigarettes packs per day: 1; Second Hand Exposure: Yes; Hx Alcohol Use: Yes Alcohol type: hard liquor Alcohol Intake Frequency: Monthly or Less Alcohol Intake Frequency Comment: 1 bottle of Manny Dupree a month Hx Substance Use: No Preferred Language: Nicaraguan Communication Ability: Effective Visual Impairment: No Limitations Lesson Instructor Required: No Beliefs That Will Affect Care: None marital status: Current Living Situation: Spouse current occupational status: retired Feels Safe at Home: Yes Assistive Devices: Oxygen - Continuous Review of Systems Review of Systems: All systems reviewed & are unremarkable except as noted in HPI & below Physical Exam Constitutional: WD/WN, vitals as above Eyes: EOM intact bilaterally; no conjunctival abnormality ENMT: external ear and nose normal, oropharynx normal Neck: trachea midline, no thyromegaly normal visual inspection Respiratory: normal respiratory effort, lungs clear to auscultation + labored breathing and + tachypneic; no cough Auscultation: + wheezes (Diffuse inspiratory and expiratory) Cardiovascular: RRR, no murmur, no edema Gastrointestinal (Abdomen): Inspection/Auscultation: abdomen normal to inspection; abdomen not distended Musculoskeletal: no cyanosis or clubbing, extremities motor strength 5/5 Skin: no rashes, warm and dry Neurologic: moves all extremities and awake Psychiatric: Orientation: alert, oriented to person and cooperative Results & Data Results & Data ([facility]) Vital Signs (Past 12 Hours) Vital Signs Temp Pulse Pulse Resp BP BP Pulse Ox 03/22/22 12:00 92 H 25 H 166/52 H 94 03/22/22 11:30 83 23 133/47 L 03/22/22 11:00 96 H 25 H 89 L 03/22/22 10:32 78 24 94 03/22/22 10:30 79 24 93 03/22/22 10:23 36.4 C L 92 H 92 H 20 154/53 H 154/53 H 98 03/22/22 10:21 88 20 94 03/22/22 10:16 92 H 23 97 PG Care Time/CCT Total # of Minutes Spent Total Time Spent with Patient: Total time spent is greater than 50% in coordination of care (as documented) at patient's floor/unit and/or counseling patient: Coding Level of Care Code 56263 Initial Inpt Care Lvl 3 Diagnoses Acute exacerbation of chronic obstructive pulmonary disease J44.1 Anemia D64.9 Anemia type: unspecified type Chronic diastolic (congestive) heart failure I50.32 CAD (coronary artery disease) I25.10 Hypertension I10 Anxiety F41.9 DVT prophylaxis Z29.9 (1) Anemia Anemia type: unspecified type Qualified Code(s): D64.9 - Anemia, unspecified
[2022-03-22] MEDS ORDERED: LORazepam 2 MG/1 ML VIAL IV STA ×2 (12:50→16:25)
[2022-03-22] MEDS ORDERED: ALBUT/IPRATROP 3MG/0.5MG NEB 3 ML VIAL ONE (14:05)
--- NOTE | 2022-03-22 14:33 | CT Scan Report ---
CT SCAN OF THE CHEST WITHOUT IV CONTRAST CLINICAL HISTORY: Dyspnea. COMPARISON STUDY: Chest x-ray dated 03/22/2022. Chest CT dated 08/22/2020. TECHNIQUE: CT scan of the thorax was performed from the thoracic inlet to the upper abdomen. Images are reviewed in the axial, sagittal, and coronal planes. IV contrast was not administered for this ex amination as per the referring clinician. A dose lowering technique was utilized adhering to the nereida Manzano. CT DOSE: 456.02 mGy.cm FINDINGS: Thyroid: Mildly enlarged and heterogeneous. Thoracic aorta: There is advanced atherosclerotic calcification of the thoracic aorta, which is samy l in caliber and demonstrates standard 3-vessel arch anatomy. Heart: There is evidence of previous aortic valve surgery. The heart is enlarged and without pericard ial effusion. The coronary arteries and mitral annulus are densely calcified. There is diminished att enuation of the cardiac blood pool as compared to the myocardium suggesting anemia. The main pulmonar y arteries are dilated suggesting pulmonary hypertension. Lungs and pleural spaces: Evaluation of the lung parenchyma is modestly degraded by motion artifact. Emphysematous change is noted. There is diffuse intralobular septal thickening. There are small left and trace right pleural effusions with dependent consolidation. Pleural thickening is seen at the lef t lung base and this effusion may be chronic. Minimal secretions are noted in the trachea and mainste m bronchi. Fluid/debris is seen within the lower lobe airways bilaterally. Mediastinum: There are numerous mildly enlarged mediastinal lymph nodes. Prevascular nodes measure up to 12 mm in short axis. Carly: Not well assessed without IV contrast. Axillae: There is no axillary lymphadenopathy. Upper abdomen: Thickening of the adrenal glands is unchanged. There is a small hiatal hernia. Skeletal structures: The skeletal structures are osteopenic. Arthritic change is noted in the shoulde rs. No lytic or blastic bony lesions are seen. Soft tissues: Gynecomastia is noted. IMPRESSION: 1. Cardiomegaly and emphysema. Intralobular septal thickening is nonspecific and could be seen with a cute versus chronic congestive change. Clinical correlation will be required. 2. Small left and trace right pleural effusions. Pleural thickening is noted at the left lung base an d this may be chronic/partially loculated. The sterility of this fluid cannot be assessed by CT. 3. There is debris/secretions within the lower lobe airways bilaterally. Correlate clinically for asp iration. 4. Dependent consolidation is present both lung bases, left greater than right. This could represent atelectasis versus an infectious/inflammatory pneumonitis. Clinical correlation will be required. 5. Mildly enlarged mediastinal lymph nodes are nonspecific and may be reactive. 6. Additional findings as above. ACT 112: Negative or not required by law. Electronically signed by: Arun Christensen M.D. 03/22/2022 2:31 PM
[2022-03-22] MEDS ORDERED: OLANZapine 10 MG/2.1 ML SDV IM STA (16:27)
[2022-03-22] MEDS ORDERED: ACETAMINOPHEN 325 MG TAB PO PRN (16:53)
[2022-03-22] MEDS ORDERED: hydrOXYzine HCl 10 MG TAB PO PRN (16:53)
[2022-03-22] MEDS ORDERED: AZITHROMYCIN 250 MG TAB PO ONE (16:53)
[2022-03-22] MEDS ORDERED: ONDANSETRON INJ 2 MG/ML 2 ML VIAL IV PRN (16:53)
[2022-03-22 17:01] LABS: Base Excess ABG 9.6 mEq/L (-9-1.8); HCO3 ABG 37 mmol/L (19-24); PCO2 ABG 80 mmHg (35-46); PO2 ABG 63 mmHg (80-95); pH ABG 7.29 (7.35-7.45)
[2022-03-22 17:06] LABS: Allen Test Pos (Pos)
[2022-03-22] MEDS: ALBUT/IPRATROP 3MG/0.5MG NEB 3 ML VIAL NEB SCH ×2 (19:04→22:54)
--- NOTE | 2022-03-22 20:02 | Critical Care Consultation ---
Date of Consultation March 22, 2022 Assessment & Plan (1) Admitted to intensive care unit: Reason Critically Ill: 76-year-old male with acute on chronic COPD exacerbation with hypercapnia requiring close monitoring for possible need for airway intervention. NEURO - * CAM ICU: NEGATIVE * Anxiety: * Responded to Zyprexa and Ativan. * Will hold on further benzos at this time. * Will start precedex if needed. CARDIAC/VASCULAR - * Extensive cardiac history: * Continue all home Rx as tolerated. * Monitor on telemetry. RESPIRATORY - * Acute on chronic respiratory failure with hypercapnia: * Continue w/ NIPPV overnight. * Ventilating much better at this time. * Consider addition of Precedex to raiser helper in compliance if necessary. * Certainly may require intubation if he does not improve on NIPPV, however I would be hesitant in this patient w/ chronic poor lung compliance as this would likely make liberating from ventilatory very difficult. * Agree with palliative discussions. GI/NUTRITION - * NPO overnight while on NIPPV RENAL/LYTES - * No significant electrolyte derangements. - * No concerns at this time. ENDO - * No h/o DM or Thyroid Dz * BSGs per unit protocol. ISS --> gtt per unit policy. HEME - * Anemia: * Has had recurrent episodes of anemia 2/2 GIB/AVM * Trend H&H * Transfuse if needed. ID - * ??Pneumonia: * Prudent to cover possible infiltrated changes given severity of underlying lung disease. LINES/IV ACCESS - * PIVs x2 DVT PROPHYLAXIS - * Hold 2/2 current anemia and h/o GIB * SCDs I have personally spent 32 minutes of critical care time in the direct management of this patient. This is a life/limb threatening event. This includes time spent evaluating patient, direct bedside care, chart review, placing orders, interpretation of diagnostic studies, discussion with consultants, patient, and family members, as well as other required patient management activi ties. This time is exclusive of all separately billable procedures, and teaching time and separate from and in addition to any other critical care service time. Thank you for allowing us to participate in the care of this patient. Please refer to my attending physician's documentation for any further recommendations. (2) Acute exacerbation of chronic obstructive pulmonary disease: (3) Acute on chronic respiratory failure: (4) SOB (shortness of breath): (5) Anxiety: History of Present Illness Attending Physician: Papito Barger MD History of Present Illness Patient is a 76-year-old male with multiple medical complaints who presented to the emergency department with shortness of breath for the last several days. He was at this institution a few days prior and left AGAINST MEDICAL ADVICE when he was to be admitted for a COPD exacerbation. Patient initially had some anxiety related to hospital admission as well as not being able to smoke. He received Ativan as well as Zyprexa. There was concern for somnolence and increasing CO2 retention. He was placed on BiPAP and brought to the ICU for ongoing management. Upon evaluation in the ICU, the patient is somnolent, but awakes and communicates. He offers no immediate complaints at this time. Allergies Allergy/AdvReac Type Severity Reaction Status Date / Time No Known Drug Allergies Allergy NKDA Verified 03/22/22 12:27 Home Medications Medication Instructions Recorded Confirmed Type atorvastatin 80 mg tablet 80 mg PO QPM 05/20/20 03/22/22 History magnesium 250 mg tablet 250 mg PO DAILY 05/20/20 03/22/22 History potassium chloride 20 mEq 20 meq PO BID 05/20/20 03/22/22 History tablet,extended release multivitamin (Multiple Vitamins) 1 tab PO DAILY 05/21/20 03/22/22 History docusate sodium 100 mg capsule 100 mg PO BID 06/10/20 03/22/22 History acetaminophen 325 mg capsule 650 mg PO QID PRN 06/11/20 03/22/22 History spironolactone 25 mg tablet 25 mg PO BID 30 Days #60 tab 09/30/20 03/22/22 Rx ferrous sulfate 325 mg (65 mg 65 mg PO BID tab 02/27/21 03/22/22 History iron) tablet pantoprazole 40 mg tablet,delayed 40 mg PO QPM tab 08/12/21 03/22/22 History release fluticasone fur. 100 mcg-umeclid 1 inh INHALATION DAILY #3 inhaler 09/30/21 03/22/22 Rx 62.5 mcg-vilant 25 mcg inhalat.powder (Trelegy Ellipta) nicotine (polacrilex) 2 mg gum 2 mg BUCCAL Q2H PRN #120 ea 09/30/21 03/22/22 Rx bumetanide 2 mg tablet See Rx Instructions PO BID tab 02/12/22 03/22/22 History escitalopram oxalate 10 mg tablet 10 mg PO DAILY 02/12/22 03/22/22 History azelastine 137 mcg (0.1 %) nasal 2 spray INTRANASAL DAILY #30 ml 03/10/22 03/22/22 Rx spray aerosol aspirin 81 mg tablet,delayed 81 mg PO QPM 03/19/22 03/22/22 History release (Adult Low Dose Aspirin) calcium 300 mg chewable tablet 600 mg PO BID 03/22/22 03/22/22 History metolazone 2.5 mg tablet 2.5 mg PO UD 03/22/22 03/22/22 History metoprolol tartrate 25 mg tablet 25 mg PO BID 03/22/22 03/22/22 History Patient History Medical History Acute GI bleeding Anemia Aortic stenosis severe asymptomatic Chronic obstructive pulmonary disease OXYGEN 5L/MIN NC HS Chronic shortness of breath Dependent edema PRN diuretics History of carotid artery disease S/P L CEA 2013 History of GI bleed Hypertension Tobacco use disorder Surgical History History of appendectomy History of cataract surgery BILAT History of colonoscopy History of esophagogastroduodenoscopy (EGD) History of left-sided carotid endarterectomy 2013 History of tonsillectomy History of tooth extraction Toenail avulsion REMOVAL OF Family History Father Hypertension Mother Hypotension Breast cancer Other No family history of adverse response to anesthesia No family history of bleeding disorder Social History Smoking Status: Unknown if ever smoked Tobacco Type: Cigarettes packs per day: 1; Second Hand Exposure: Yes; Preferred Language: Slovak Communication Ability: Unable Visual Impairment: No Limitations Government Instructor Required: No Beliefs That Will Affect Care: None marital status: Current Living Situation: Spouse Current Living Situation Comment: UNABLE TO ASSESS current occupational status: retired Feels Safe at Home: Yes Assistive Devices: Oxygen - Continuous Assistive Devices Comment: UNABLE TO ASSESS Review of Systems Review of Systems: All systems reviewed & are unremarkable except as noted in HPI & below Physical Exam Physical Exam: VITAL SIGNS - Vital signs and nursing notes were reviewed. GENERAL - 76-year-old male appearing his stated age who is in no acute distress. Resting comfortably with BiPAP in place. HEAD - NC/AT. EYES - PERRL with EOMI bilaterally. Sclera anicteric. EARS - No deformities of external structures noted on gross examination bilaterally. NOSE - Midline and without cyanosis. No epistaxis or purulent drainage noted. MOUTH/OROPHARYNX - Without perioral cyanosis. NECK - Neck with FROM. Supple to palpation. LUNGS - Chest wall symmetric without accessory muscle use, intercostals retractions, or central cyanosis. Distant breath sounds noted bilaterally. CARDIAC - RRR with S1/S2. No murmur, rubs, or gallops appreciated. No reproducible tenderness to palpation appreciated over the anterior chest wall. ABDOMEN - Abdominal contour flat without pulsations or visible masses. BS normoactive all four quadrants. No tenderness, palpable masses, hepatosplenomegaly, or ascites noted. EXTREMITIES - No clubbing or peripheral cyanosis. No pretibial edema present. +3/5 radial and dorsalis pedis pulses palpated throughout. +5/5 strength noted in UE/LE bilaterally. NEUROLOGIC - Cranial nerves II through XII grossly intact. Sensory intact to light touch throughout. PSYCH - Awake and oriented. Somnolent. Results & Data Results & Data ([facility]) Vital Signs (Past 12 Hours) Vital Signs Temp Pulse Pulse Resp BP BP Pulse Ox 03/22/22 19:08 70 70 23 92 03/22/22 18:45 82 03/22/22 18:30 86 22 117/45 L 94 03/22/22 18:20 112 H 23 90/71 L 94 03/22/22 17:47 36.5 C 78 30 H 116/70 88 L 03/22/22 14:11 89 87 20 94 03/22/22 14:00 36.5 C 65 20 147/69 H 98 03/22/22 13:30 87 23 121/44 L 95 03/22/22 13:00 99 H 22 149/49 H 93 03/22/22 12:30 80 20 135/53 L 88 L 03/22/22 12:00 92 H 25 H 166/52 H 94 03/22/22 11:30 83 23 133/47 L 03/22/22 11:00 96 H 25 H 89 L 03/22/22 10:32 78 24 94 03/22/22 10:30 79 24 93 03/22/22 10:23 36.4 C L 92 H 92 H 20 154/53 H 154/53 H 98 03/22/22 10:21 88 20 94 03/22/22 10:16 92 H 23 97 Coding Level of Care Code Critical Care 1st 30-74 mins Diagnoses Admitted to intensive care unit Z78.9 Acute exacerbation of chronic obstructive pulmonary disease J44.1 Acute on chronic respiratory failure J96.20 SOB (shortness of breath) R06.02 Anxiety F41.9 Time Spent (min) 32
[2022-03-22] MEDS: DOCUSATE SODIUM 100 MG CAP PO SCH (20:16)
[2022-03-22] MEDS: METOPROLOL TARTRATE 25 MG TAB PO SCH (20:16)
[2022-03-22] MEDS: PANTOprazole 40 MG TAB PO SCH (20:16)
[2022-03-22] MEDS: ATORVASTATIN 40 MG TAB PO SCH (20:16)
[2022-03-22] MEDS: methylPREDNISolone 40 MG in SYRINGE 0 ML IV SCH (21:11)
[2022-03-23] MEDS: ALBUT/IPRATROP 3MG/0.5MG NEB 3 ML VIAL NEB SCH ×6 (02:37→23:03)
[2022-03-23 06:31] LABS: Anion Gap 4 (3-11); BUN Creatinine Ratio 38.3 (10-20); Blood Urea Nitrogen 41 mg/dl (6-23); Calcium 9.1 mg/dl (8.5-10.1); Carbon Dioxide 39 mmol/L (21-32); Chloride 98 mmol/L (98-107); Est GFR (African American) 76.7 ml/min; Est GFR (Non-African American) 66.1 ml/min; Glucose 147 mg/dl (70-99(Fasting)); Potassium 5.3 mmol/L (3.5-5.1); Sodium 141 mmol/L (136-145)
[2022-03-23 06:33] LABS: Ferritin 14.1 ng/ml (8-388)
[2022-03-23 06:39] LABS: Folate (Folic Acid) > 22.30 ng/ml (>5.38); Hematocrit (blood only) 22.7 % (42-52); Hemoglobin 6.7 g/dL (14.0-18.0); Mean Corpuscular Hemoglobin 27.8 pg (25-34); Mean Corpuscular Hgb Conc 29.5 g/dL (32-36); Mean Corpuscular Volume 94.2 fL (80-100); Mean Platelet Volume 9.2 fL (7.4-10.4); Nucleated RBC # (auto) 0.02 K/uL (0-0); Nucleated RBC % (auto) 0.2 %; Platelet Count 475 K/uL (130-400); RDW Coefficient of Variation 13.8 % (11.5-14.5); RDW Standard Deviation 47.6 fL (36.4-46.3); Red Blood Count 2.41 M/uL (4.7-6.1); White Blood Count 12.25 K/uL (4.8-10.8)
[2022-03-23 06:40] LABS: Vitamin B12 750 pg/ml (180-914)
[2022-03-23 06:51] LABS: Iron < 10 mcg/dl (35-175); Magnesium 2.8 mg/dl (1.7-2.4); Unsaturated Iron Binding Cap 275 mcg/dl (155-355)
--- NOTE | 2022-03-23 07:01 | Electrocardiogram Report ---
Test Reason : Blood Pressure : / mmHG Vent. Rate : 091 BPM Atrial Rate : 091 BPM P-R Int : 208 ms QRS Dur : 126 ms QT Int : 366 ms P-R-T Axes : 078 -34 065 degrees QTc Int : 450 ms Normal sinus rhythm Left axis deviation Non-specific intra-ventricular conduction block Cannot rule out Septal infarct (cited on or before 18-JUN-2021) Abnormal ECG When compared with ECG of 19-MAR-2022 10:43, No significant change was found Confirmed by Declan Lee ([id number]) on 03/23/2022 7:00:51 AM Referred By: Confirmed By:Declan Lee
--- NOTE | 2022-03-23 07:32 | Hospitalist Progress Note ---
Date of Service March 23, 2022 Assessment & Plan (1) Acute exacerbation of chronic obstructive pulmonary disease: Plan: 76 year old male w/ hx of HFpEF, ABDIEL, anemia, COPD, and CAD who presents for COPD exacerbation after leaving [facility] on 03/19/22 for the same. acute on chronic respiratory failure: - 2L home O2, 5L on exertion, and 5L qhs - most likely 2/2 COPD exacerbation from pneumonia; considered aspiration - Was kept on Bipap overnight. Oxygenating well on NC in am Possible Aspiration pneumonia - CT chest: There is debris/secretions within the lower lobe airways bilaterally. Correlate clinically for aspiration. - continue 2g Rocephin - speech therapy eval COPD exacerbation: - DuoNebs Q4h + PRN - Methylpred 40 IV q12 - Continue Rocephin - transitioned off bipap pleural effusions: - CT chest: Small left and trace right pleural effusions. Pleural thickening is noted at the left lung base and this may be chronic/partially loculated. The sterility of this fluid cannot be assessed by CT. - moderate bilateral pleural effusions on 08/22/[address] - per the above, the pleural effusions do not appear to be new and per prior admission's pulm consult, etiology was thought to be related to CHF. Decrease in size is reassuring. Chronic diastolic (congestive) heart failure: - Continue home Bumex - metolazone and spironolactone are on HOLD. To resume when able Anemia: - Has hx of GI bleeds with duodenal/jejunal AVMs per history. Is taking oral iron, so stools are already dark. - Type and screen obtained - Transfusion threshold 7 Hyperkalemia - Considered hemolysis. repeat bmp in AM tobacco use disorder: - nicotine patch 21mg qam + nicotine gum prn - continue counseling Obstructive sleep apnea: - cpap qhs CAD (coronary artery disease): - Hold home ASA (for hx of ARAMIS thrombus, not for CAD) - Continue home statin Hypertension: Chronic. Stable. Continue home regimen. Anxiety: - QTc stable at 450. - Continue home escitalopram - Hydroxyzine PRN FEN/GI: low Na diet. No IV fluids ppx: hold chemoppx in setting of low Hb and hx of UGIB and AVMs. scds code: full dispo: downgrade from icu to med tele (2) Anemia: (3) Chronic diastolic (congestive) heart failure: (4) CAD (coronary artery disease): (5) Hypertension: (6) Anxiety: (7) Bilateral pleural effusion: (8) Acute on chronic respiratory failure: (9) Tobacco use disorder: (10) Hyperkalemia: Admission and Anticipated Discharge Date Admission Date: March 22, 2022 Supervising Physician Co-Signing Physician Notes Resident Physician Supervision Note: I independently interviewed and examined the patient and verified the verma history and physical, reviewed labs and image studies and agree with resident Dr. Prince findings and care plan. Subjective Patient states he is breathing comfortably. He is hungry and requesting food. He has had cough productive of sputum. Denies other complaints. Review of Systems Review of Systems: All systems reviewed & are unremarkable except as noted in HPI & below Physical Exam Physical Exam: General: Grossly A&O. NAD. Cooperative. HEENT: Atraumatic, normocephalic. EOMI Pulm: Diminished in all quadrants.. Transmitted upper airway sounds. No accessory muscle use. Patient's bed is at 90 degree angle. Cardiac: Faint 2/6 systolic murmur. No LE edema. Abdominal: Nontender, nondistended, soft. Results & Data Results & Data ([facility]) Vital Signs (Past 12 Hours) Vital Signs Temp Pulse Pulse Resp BP Pulse Ox 03/23/22 07:20 88 20 98 03/23/22 06:00 81 27 H 138/77 96 03/23/22 05:00 67 23 111/47 L 94 03/23/22 04:00 36.8 C 74 22 126/48 L 94 03/23/22 02:37 94 H 75 23 75 L 03/23/22 02:00 72 25 H 138/47 L 97 03/23/22 01:00 73 26 H 112/39 L 91 03/23/22 00:00 36.6 C 81 24 122/45 L 92 03/22/22 23:30 90 34 H 119/50 L 90 03/22/22 22:54 90 90 24 93 03/22/22 22:30 77 25 H 112/42 L 91 03/22/22 21:30 80 27 H 115/53 L 94 03/22/22 20:30 36.5 C 84 23 122/49 L 92 03/22/22 19:30 74 24 122/46 L 95 Laboratory Results vitals reviewed. tachypnea resolved. 6L NC 96% wbc 12.25. Hb 6.7->7.1abg 5/1 7.25/80H/63L/37H. 5/2 vbg 7.32. 79 pCO2. K 5.2H. Mg 2.8. Cr .97. bnp 119. cxr cardiomegaly w/ unchanged pulm edema. emphysema. Persistent bibasilar consolidation. L>R pleural effusions. blood cultures pending. Resident Activity Tracking Resident Involvement: Resident Care Provided Care Provided: Adult Hospital Medicine (1) Anemia Anemia type: unspecified type Qualified Code(s): D64.9 - Anemia, unspecified
[2022-03-23] MEDS ORDERED: NON-FORMULARY MEDICATION (Fluticasone-Umeclidin-Vilanter [Trelegy Ellipta] 100-62.5-25 mcg INH SCH (09:00)
[2022-03-23] MEDS ORDERED: AZITHROMYCIN 250 MG TAB PO SCH (09:00)
[2022-03-23 09:12] LABS: Hematocrit (blood only) 23.9 % (42-52); Hemoglobin 7.1 g/dL (14.0-18.0)
--- NOTE | 2022-03-23 09:15 | XRay Report ---
XR chest 1V portable HISTORY: 76 years-old Male f/u follow-up study in a patient with bibasilar pulmonary opacities COMPARISON: Chest CT 03/22/2022 TECHNIQUE: Portable AP view of the chest FINDINGS: Cardiac silhouette is enlarged. Emphysema with interstitial coarsening. Aortic valvular endograft. Pu lmonary edema with left greater than right pleural effusions and bibasilar opacities redemonstrated. Mildly progressed consolidation of the right lung base. Atherosclerosis of the aorta. No pneumothorax . Degenerative changes of the shoulders and spine. IMPRESSION: 1. Cardiomegaly with unchanged pulmonary edema. 2. Left greater than right pleural effusions with persistent bibasilar consolidation. 3. Emphysema. ACT 112: Negative or not required by law. The above report was generated using voice recognition software. It may contain grammatical, syntax o r spelling errors. Electronically signed by: Volodymyr Ferrara M.D. 03/23/2022 9:13 AM
[2022-03-23 09:18] LABS: Base Excess VBG 11.7 mEq/L; HCO3 VBG 40 mmol/L; PCO2 VBG 79 mmHg (38-50); PO2 VBG 25 mmHg; pH VBG 7.32 (7.36-7.41)
[2022-03-23 09:29] LABS: Troponin I High Sensitivity 13.9 pg/ml (0-20)
[2022-03-23 09:33] LABS: BUN Creatinine Ratio 38.1 (10-20); Calcium 9.2 mg/dl (8.5-10.1); Creatinine Clr Calc Pharmacy 60.7 ml/min; Est GFR (African American) 86.3 ml/min; Est GFR (Non-African American) 74.5 ml/min; Potassium 5.2 mmol/L (3.5-5.1)
[2022-03-23] MEDS: DOCUSATE SODIUM 100 MG CAP PO SCH ×2 (09:48→20:32)
[2022-03-23] MEDS: ESCITALOPRAM OXALATE 10 MG TAB PO SCH (09:49)
[2022-03-23] MEDS: BUMETANIDE 1 MG TAB PO SCH ×2 (09:49→11:37)
[2022-03-23 09:50] LABS: Oxygen Saturation VBG < 60.0 %
[2022-03-23] MEDS: METOPROLOL TARTRATE 25 MG TAB PO SCH ×2 (09:50→20:33)
[2022-03-23] MEDS: FLUTICASONE/VILANTEROL 100/25MCG 14 PUFFS/INHALER INH SCH (09:50)
[2022-03-23] MEDS: UMECLIDINIUM BROMIDE 62.5MCG/BLISTER 7 PUFFS/INHALER INH SCH (09:51)
[2022-03-23] MEDS: NICOTINE 14 MG/24 HR PATCH TD SCH (10:57)
[2022-03-23] MEDS: methylPREDNISolone 40 MG in SYRINGE 0 ML IV SCH ×2 (10:59→20:32)
[2022-03-23] MEDS: NICOTINE 21 MG/24 HR TDSY TD SCH (10:59)
--- NOTE | 2022-03-23 12:12 | Critical Care Progress Note ---
Date of Service March 23, 2022 Assessment & Plan (1) Admitted to intensive care unit: Plan: Reason Critically Ill: 76-year-old male with acute on chronic COPD exacerbation with hypercapnia requiring close monitoring for possible need for airway intervention. NEURO - * CAM ICU: NEGATIVE * Anxiety: Resolved * Responded to Zyprexa and Ativan. CARDIAC/VASCULAR - * Extensive cardiac history: * Continue all home Rx as tolerated. * Monitor on telemetry. RESPIRATORY - * Acute on chronic respiratory failure with hypercapnia: Improved * I would be hesitant with mechanical ventilation in this patient w/ chronic poor lung compliance as this would likely make liberating from ventilatory very difficult. * Agree with palliative discussions. GI/NUTRITION - * Proceed with diet RENAL/LYTES - * No significant electrolyte derangements. - * No concerns at this time. ENDO - * No h/o DM or Thyroid Dz * BSGs per unit protocol. ISS --> gtt per unit policy. HEME - * Anemia: * Has had recurrent episodes of anemia 2/2 GIB/AVM * Repeat H&H ID - * Later gold stage COPD: * Prudent to cover possible infiltrated changes given severity of underlying lung disease. LINES/IV ACCESS - * PIVs x2 DVT PROPHYLAXIS - * Hold 2/2 current anemia and h/o GIB * SCDs Discussed with the hospitalist team he is stable for downgrade out of the ICU.. (2) Acute exacerbation of chronic obstructive pulmonary disease: (3) Acute on chronic respiratory failure: (4) SOB (shortness of breath): (5) Anxiety: Admission and Anticipated Discharge Date Admission Date: March 22, 2022 Subjective Overnight patient improved was able to wean off BiPAP. Currently would like to eat. Feels back at baseline. Physical Exam Physical Exam: General: Alert. nontoxic. Skin: Warm, dry, Head: Atraumatic Ears, nose, mouth and throat: airway patent Cardiovascular: Normal peripheral perfusion Respiratory: no respiratory distress, speaks in full sentences, no pursed lip breathing, no accessory muscle use Gastrointestinal: Non distended Musculoskeletal: No deformity Results & Data Results & Data ([facility]) Vital Signs (Past 12 Hours) Vital Signs Temp Pulse Pulse Resp BP Pulse Ox 03/23/22 11:29 75 18 93 03/23/22 11:00 88 26 H 90 03/23/22 10:30 90 23 91 03/23/22 10:00 97 H 33 H 94 03/23/22 09:30 73 18 125/46 L 96 03/23/22 09:00 68 23 98 03/23/22 08:30 86 24 142/55 H 96 03/23/22 08:00 69 24 109/40 L 97 03/23/22 07:30 75 30 H 100 03/23/22 07:20 88 20 98 03/23/22 07:00 87 25 H 154/48 H 98 03/23/22 06:30 111 H 34 H 90 03/23/22 06:00 81 27 H 138/77 96 03/23/22 05:00 67 23 111/47 L 94 03/23/22 04:00 36.8 C 74 22 126/48 L 94 03/23/22 02:37 94 H 75 23 75 L 03/23/22 02:00 72 25 H 138/47 L 97 03/23/22 01:00 73 26 H 112/39 L 91 Critical Care Results & Data Vital Signs (Past 12 Hours) Vital Signs Temp Pulse Pulse Resp BP Pulse Ox 03/23/22 11:29 75 18 93 03/23/22 11:00 88 26 H 90 03/23/22 10:30 90 23 91 03/23/22 10:00 97 H 33 H 94 03/23/22 09:30 73 18 125/46 L 96 03/23/22 09:00 68 23 98 03/23/22 08:30 86 24 142/55 H 96 03/23/22 08:00 69 24 109/40 L 97 03/23/22 07:30 75 30 H 100 03/23/22 07:20 88 20 98 03/23/22 07:00 87 25 H 154/48 H 98 03/23/22 06:30 111 H 34 H 90 03/23/22 06:00 81 27 H 138/77 96 03/23/22 05:00 67 23 111/47 L 94 03/23/22 04:00 36.8 C 74 22 126/48 L 94 03/23/22 02:37 94 H 75 23 75 L 03/23/22 02:00 72 25 H 138/47 L 97 03/23/22 01:00 73 26 H 112/39 L 91 Lab & Micro Results (Past 24 Hours) RBC 2.41 M/uL (4.7-6.1) L 03/23/22 WBC 12.25 K/uL (4.8-10.8) H 03/23/22 Hgb 7.1 g/dL (14.0-18.0) L 03/23/22 Hct 23.9 % (42-52) L 03/23/22 MCV 94.2 fL (80-100) 03/23/22 MCH 27.8 pg (25-34) 03/23/22 MCHC 29.5 g/dL (32-36) L 03/23/22 RDW Standard Deviation 47.6 fL (36.4-46.3) H 03/23/22 RDW Coefficient of Variation 13.8 % (11.5-14.5) 03/23/22 Plt Count 475 K/uL (130-400) H 03/23/22 MPV 9.2 fL (7.4-10.4) 03/23/22 Nucleated Red Blood Cells % (auto) 0.2 % 03/23/22 Nucleated RBC Absolute Count (auto) 0.02 K/uL (0-0) H 03/23/22 Na 140 mmol/L (136-145) 03/23/22 K 5.2 mmol/L (3.5-5.1) H 03/23/22 Cl 97 mmol/L (98-107) L 03/23/22 CO2 38 mmol/L (21-32) H 03/23/22 Anion Gap 5 (3-11) 03/23/22 BUN 37 mg/dl (6-23) H 03/23/22 Creatinine 0.97 mg/dl (0.6-1.4) 03/23/22 Estimated GFR ( Amer) 86.3 ml/min 03/23/22 Estimated GFR (Non-Af Amer) 74.5 ml/min 03/23/22 BUN/Creatinine Ratio 38.1 (10-20) H 03/23/22 Glu 129 mg/dl (70-99(Fasting)) H 03/23/22 Ca 9.2 mg/dl (8.5-10.1) 03/23/22 Mg 2.8 mg/dl (1.7-2.4) H 03/23/22 05:16 03/23/22 Calcium Level 9.2 mg/dl (8.5-10.1) 03/23/22 08:47 03/23/22 Venous Blood pH 7.32 (7.36-7.41) L 03/23/22 08:52 03/23/22 Venous Blood Partial Pressure CO2 79 mmHg (38-50) H 03/23/22 08:52 03/23/22 Venous Blood Partial Pressure O2 25 mmHg 03/23/22 08:52 03/23/22 Venous Blood HCO3 40 mmol/L 03/23/22 08:52 03/23/22 Venous Blood Base Excess 11.7 mEq/L 03/23/22 08:52 03/23/22 Venous Blood Oxygen Saturation < 60.0 % 03/23/22 08:52 03/23/22 Blood Gas Barometric Pressure 731.5 mm/Hg 03/23/22 08:52 03/23/22 Arterial Blood pH 7.29 (7.35-7.45) L 03/22/22 16:46 03/22/22 Arterial Blood Partial Pressure CO2 80 mmHg (35-46) H 03/22/22 16:46 03/22/22 Arterial Blood Partial Pressure O2 63 mmHg (80-95) L 03/22/22 16:46 03/22/22 Arterial Blood HCO3 37 mmol/L (19-24) H 03/22/22 16:46 03/22/22 Arterial Blood Base Excess 9.6 mEq/L (-9-1.8) H 03/22/22 16:46 03/22/22 Arterial Blood Oxygen Saturation 89.0 % (90-95) L 03/22/22 16:46 03/22/22 Blood Gas Oxygen Given 40 03/22/22 16:46 03/22/22 Bacilio Test Pos (Pos) 03/22/22 16:46 03/22/22 Blood Gas Barometric Pressure 731.5 mm/Hg 03/23/22 08:52 03/23/22 Microbiology 03/22/22 11:12 Aerobic Blood Culture - Preliminary Blood No growth in Aerobic bottle after 24 hours. Anaerobic Blood Culture - Preliminary No growth in Anaerobic bottle after 24 hours. 03/22/22 11:29 Aerobic Blood Culture - Preliminary Blood No growth in Aerobic bottle after 24 hours. Anaerobic Blood Culture - Preliminary No growth in Anaerobic bottle after 24 hours. Diagnostic Findings (Past 24 Hours) Chest CT 03/22/22 11:56 CT SCAN OF THE CHEST WITHOUT IV CONTRAST CLINICAL HISTORY: Dyspnea. COMPARISON STUDY: Chest x-ray dated 03/22/2022. Chest CT dated 08/22/2020. TECHNIQUE: CT scan of the thorax was performed from the thoracic inlet to the upper abdomen. Images are reviewed in the axial, sagittal, and coronal planes. IV contrast was not administered for this examination as per the referring clinician. A dose lowering technique was utilized adhering to the principles of ALARA. CT DOSE: 456.02 mGy.cm FINDINGS: Thyroid: Mildly enlarged and heterogeneous. Thoracic aorta: There is advanced atherosclerotic calcification of the thoracic aorta, which is normal in caliber and demonstrates standard 3-vessel arch anatomy. Heart: There is evidence of previous aortic valve surgery. The heart is enlarged and without pericardial effusion. The coronary arteries and mitral annulus are densely calcified. There is diminished attenuation of the cardiac blood pool as compared to the myocardium suggesting anemia. The main pulmonary arteries are dilated suggesting pulmonary hypertension. Lungs and pleural spaces: Evaluation of the lung parenchyma is modestly degraded by motion artifact. Emphysematous change is noted. There is diffuse intralobular septal thickening. There are small left and trace right pleural effusions with dependent consolidation. Pleural thickening is seen at the left lung base and this effusion may be chronic. Minimal secretions are noted in the trachea and mainstem bronchi. Fluid/debris is seen within the lower lobe airways bilaterally. Mediastinum: There are numerous mildly enlarged mediastinal lymph nodes. Prevascular nodes measure up to 12 mm in short axis. Carly: Not well assessed without IV contrast. Axillae: There is no axillary lymphadenopathy. Upper abdomen: Thickening of the adrenal glands is unchanged. There is a small hiatal hernia. Skeletal structures: The skeletal structures are osteopenic. Arthritic change is noted in the shoulders. No lytic or blastic bony lesions are seen. Soft tissues: Gynecomastia is noted. IMPRESSION: 1. Cardiomegaly and emphysema. Intralobular septal thickening is nonspecific and could be seen with acute versus chronic congestive change. Clinical correlation will be required. 2. Small left and trace right pleural effusions. Pleural thickening is noted at the left lung base and this may be chronic/partially loculated. The sterility of this fluid cannot be assessed by CT. 3. There is debris/secretions within the lower lobe airways bilaterally. Correlate clinically for aspiration. 4. Dependent consolidation is present both lung bases, left greater than right. This could represent atelectasis versus an infectious/inflammatory pneumonitis. Clinical correlation will be required. 5. Mildly enlarged mediastinal lymph nodes are nonspecific and may be reactive. 6. Additional findings as above. ACT 112: Negative or not required by law. Electronically signed by: Arun Christensen M.D. 03/22/2022 2:31 PM Chest X-Ray 03/23/22 07:00 XR chest 1V portable HISTORY: 76 years-old Male f/u follow-up study in a patient with bibasilar pulmonary opacities COMPARISON: Chest CT 03/22/2022 TECHNIQUE: Portable AP view of the chest FINDINGS: Cardiac silhouette is enlarged. Emphysema with interstitial coarsening. Aortic valvular endograft. Pulmonary edema with left greater than right pleural effusions and bibasilar opacities redemonstrated. Mildly progressed consolidation of the right lung base. Atherosclerosis of the aorta. No p neumothorax. Degenerative changes of the shoulders and spine. IMPRESSION: 1. Cardiomegaly with unchanged pulmonary edema. 2. Left greater than right pleural effusions with persistent bibasilar consolidation. 3. Emphysema. ACT 112: Negative or not required by law. The above report was generated using voice recognition software. It may contain grammatical, syntax or spelling errors. Electronically signed by: Volodymyr Ferrara M.D. 03/23/2022 9:13 AM I & O Totals 24 Hours 03/22/22 03/23/22 03/24/22 06:59 06:59 06:59 Intake Total 1070 / 1070 Output Total 700 / 700 Balance 370 / 370 Cumulative 03/22/22 09:58 thru 03/23/22 06:47 Intake Total 1070 Output Total 700 Balance 370 RT Ventilator Mngmt (Last Documented) Ventilator Ordered Settings Respiratory Rate 18 03/23/22 11:29 Fraction of Inspired Oxygen 40 03/23/22 06:00 Ventilator - PT Measurements Respiratory Rate 18 Coding Level of Care Code 07064 Subseq Hosp Care Lvl 2 Diagnoses Admitted to intensive care unit Z78.9 Acute exacerbation of chronic obstructive pulmonary disease J44.1 Acute on chronic respiratory failure J96.20 SOB (shortness of breath) R06.02 Anxiety F41.9
[2022-03-23] MEDS: cefTRIAXone SODIUM 2,000 MG in DEXTROSE 5% 50 ML IV SCH (13:11)
[2022-03-23] MEDS: NICOTINE POLACRILEX 2 MG GUM MT PRN ×2 (17:28→20:30)
[2022-03-23] MEDS: ATORVASTATIN 40 MG TAB PO SCH (20:32)
[2022-03-23] MEDS: PANTOprazole 40 MG TAB PO SCH (20:33)
[2022-03-23] MEDS ORDERED: guaiFENesin/DEXTROM SYRUP 100MG/10MG 5ML UDC PO PRN (21:35)
[2022-03-23] MEDS ORDERED: BENZONATATE 100 MG CAPSULE PO ONE (21:54)
[2022-03-24] MEDS: ALBUT/IPRATROP 3MG/0.5MG NEB 3 ML VIAL NEB SCH ×4 (03:17→15:05)
[2022-03-24] MEDS: NICOTINE POLACRILEX 2 MG GUM MT PRN ×3 (03:31→14:05)
--- NOTE | 2022-03-24 06:34 | Discharge Summary ---
Date of Service March 24, 2022 Admission HPI Per Admitting Provider 76yo M w/ hx of COPD and active tobacco use who presents with shortness of breath. The patient reports shortness of breath for "weeks," but reports it may have been getting worse more recently. He also reports increased cough and does report some productively, but no change in sputum amount or purulence. He denies fevers/chills, nausea, vomiting, chest pain, lightheadedness, dizziness, or other systemic symptoms. He reports darker stool, but reports this is from his iron and denies any change in color or consistency of stool in the last few weeks. He does feel his appetite is a bit lower than usual. He reports no changes in urination. He was in the ER and admitted on April 18, but left AMA when he was not able to smoke. Admission Exam Per Admitting Provider Constitutional: WD/WN, vitals as above Eyes: EOM intact bilaterally; no conjunctival abnormality ENMT: external ear and nose normal, oropharynx normal Neck: trachea midline, no thyromegaly normal visual inspection Respiratory: normal respiratory effort, lungs clear to auscultation + labored breathing and + tachypneic; no cough Auscultation: + wheezes (Diffuse inspiratory and expiratory) Cardiovascular: RRR, no murmur, no edema Gastrointestinal (Abdomen): Inspection/Auscultation: abdomen normal to inspection; abdomen not distended Musculoskeletal: no cyanosis or clubbing, extremities motor strength 5/5 Skin: no rashes, warm and dry Neurologic: moves all extremities and awake Psychiatric: Orientation: alert, oriented to person and cooperative Principal Diagnosis COPD exacerbation, anemia Discharge Exam General: Grossly A&O. NAD. Cooperative. HEENT: Atraumatic, normocephalic. EOMI Pulm: Severely diminished in all quadrants. No accessory muscle use. Cardiac: Faint 2/6 systolic murmur. Abdominal: Nontender, nondistended, soft. Discharge Data Allergies Allergy/AdvReac Type Severity Reaction Status Date / Time No Known Drug Allergies Allergy NKDA Verified 03/22/22 12:27 Consultations 03/22/22 11:58 ED Decision to Admit Stat 03/22/22 18:25 Consult Diamond Driller Routine Ordered Studies 03/23/22 08:47 03/23/22 08:47 Cardiac Enzymes 05/02/22 Range/Units 08:47 Troponin I High Sens 13.9 (0-20) pg/ml CBC 03/23/22 Range/Units 08:47 Hgb 7.1 L (14.0-18.0) g/dL Hct 23.9 L (42-52) % Comprehensive Metabolic Panel 03/23/22 Range/Units 08:47 Sodium 140 (136-145) mmol/L Potassium 5.2 H (3.5-5.1) mmol/L Chloride 97 L (98-107) mmol/L Carbon Dioxide 38 H (21-32) mmol/L BUN 37 H (6-23) mg/dl Creatinine 0.97 (0.6-1.4) mg/dl Glucose 129 H (70-99(Fasting)) mg/dl Calcium 9.2 (8.5-10.1) mg/dl Intake and Output 03/23/22 03/24/22 03/24/22 22:59 06:59 14:59 Intake Total 540 / 1210 Output Total 775 / 1500 Balance -235 / -290 Intake: Oral 540 / 1140 Output: Urine 775 / 1500 Other: Weight 81.2 kg Weight Measurement Method Standing Scale Chest X-Ray 03/22/22 10:30 SINGLE VIEW CHEST CLINICAL HISTORY: Dyspnea. FINDINGS: An AP, portable, upright chest radiograph is compared to study dated 03/19/2022 and correlated with chest CT dated 08/22/2020. The examination is de graded by portable technique and apical lordotic positioning. There is evidence of previous cardiac valve surgery. The heart is enlarged noting atherosclerotic calcification of the thoracic aorta. The pulmonary vasculature is noncongested. Enlargement of the central pulmonary arteries suggests pulmonary artery hypertension. Emphysema and chronic interstitial thickening is similar to previous. There are small pleural effusions with bibasilar consolidation. Foci of parenchymal scarring are seen throughout both lungs. No pneumothorax is seen. The skeletal structures are osteopenic. The bony thorax is grossly intact. IMPRESSION: 1. Cardiomegaly and emphysema with no radiographic evidence of congestive failure. 2. There are small pleural effusions with bibasilar consolidation. This could represent scarring/atelectasis versus pneumonia/aspiration pneumonitis. Clinical correlation will be required and radiographic follow-up to resolution is recommended. ACT 112: Negative or not required by law. Electronically signed by: Arun Christensen M.D. 03/22/2022 11:[address] 03/22/22 11:56 CT SCAN OF THE CHEST WITHOUT IV CONTRAST CLINICAL HISTORY: Dyspnea. COMPARISON STUDY: Chest x-ray dated 03/22/2022. Chest CT dated 08/22/2020. TECHNIQUE: CT scan of the thorax was performed from the thoracic inlet to the upper abdomen. Images are reviewed in the axial, sagittal, and coronal planes. IV contrast was not administered for this examination as per the referring clinician. A dose lowering technique was utilized adhering to the principles of ALARA. CT DOSE: 456.02 mGy.cm FINDINGS: Thyroid: Mildly enlarged and heterogeneous. Thoracic aorta: There is advanced atherosclerotic calcification of the thoracic aorta, which is normal in caliber and demonstrates standard 3-vessel arch anatomy. Heart: There is evidence of previous aortic valve surgery. The heart is enlarged and without pericardial effusion. The coronary arteries and mitral annulus are densely calcified. There is diminished attenuation of the cardiac blood pool as compared to the myocardium suggesting anemia. The main pulmonary arteries are dilated suggesting pulmonary hypertension. Lungs and pleural spaces: Evaluation of the lung parenchyma is modestly degraded by motion artifact. Emphysematous change is noted. There is diffuse intralobular septal thickening. There are small left and trace right pleural effusions with dependent consolidation. Pleural thickening is seen at the left lung base and this effusion may be chronic. Minimal secretions are noted in the trachea and mainstem bronchi. Fluid/debris is seen within the lower lobe airways bilaterally. Mediastinum: There are numerous mildly enlarged mediastinal lymph nodes. Prevascular nodes measure up to 12 mm in short axis. Carly: Not well assessed without IV contrast. Axillae: There is no axillary lymphadenopathy. Upper abdomen: Thickening of the adrenal glands is unchanged. There is a small hiatal hernia. Skeletal structures: The skeletal structures are osteopenic. Arthritic change is noted in the shoulders. No lytic or blastic bony lesions are seen. Soft tissues: Gynecomastia is noted. IMPRESSION: 1. Cardiomegaly and emphysema. Intralobular septal thickening is nonspecific and could be seen with acute versus chronic congestive change. Clinical correlation will be required. 2. Small left and trace right pleural effusions. Pleural thickening is noted at the left lung base and this may be chronic/partially loculated. The sterility of this fluid cannot be assessed by CT. 3. There is debris/secretions within the lower lobe airways bilaterally. Correlate clinically for aspiration. 4. Dependent consolidation is present both lung bases, left greater than right. This could represent atelectasis versus an infectious/inflammatory pneumonitis. Clinical correlation will be required. 5. Mildly enlarged mediastinal lymph nodes are nonspecific and may be reactive. 6. Additional findings as above. ACT 112: Negative or not required by law. Electronically signed by: Arun Christensen M.D. 03/22/2022 2:31 PM Chest X-Ray 03/23/22 07:00 XR chest 1V portable HISTORY: 76 years-old Male f/u follow-up study in a patient with bibasilar pulmonary opacities COMPARISON: Chest CT 03/22/2022 TECHNIQUE: Portable AP view of the chest FINDINGS: Cardiac silhouette is enlarged. Emphysema with interstitial coarsening. Aortic valvular endograft. Pulmonary edema with left greater than right pleural effusions and bibasilar opacities redemonstrated. Mildly progressed consolidation of the right lung base. Atherosclerosis of the aorta. No pneumothorax. Degenerative changes of the shoulders and spine. IMPRESSION: 1. Cardiomegaly with unchanged pulmonary edema. 2. Left greater than right pleural effusions with persistent bibasilar consolidation. 3. Emphysema. ACT 112: Negative or not required by law. The above report was generated using voice recognition software. It may contain grammatical, syntax or spelling errors. Electronically signed by: Volodymyr Ferrara M.D. 03/23/2022 9:13 AM Hospital Course (1) Acute exacerbation of chronic obstructive pulmonary disease: 76 year old male w/ hx of HFpEF, ABDIEL, anemia, COPD, and CAD who presents for COPD exacerbation after leaving [place] on 03/19/22 for the same. Acute on chronic respiratory failure: - 2/2 COPD exacerbation from pneumonia; considered aspiration - 5L continuous home O2 - briefly in ICU for close monitoring was on bipap on night of admission - stayed on NC at 6L thereafter. COPD exacerbation: - Provided duonebs, methylpred 40mg IV q12, and Rocephin 2g IV while inpatient - Discharging on PO prednisone [id number], 20mgx4, and 10mgx4 and Cefdinir x 7 days Possible Aspiration pneumonia - CT chest: There is debris/secretions within the lower lobe airways bilaterally. Correlate clinically for aspiration. - continue 2g Rocephin - speech therapy eval not suggestive of aspiration; optional swallow study, but deferring in absence of subjective aspiration. debris on CT may be from severe copd and aspiration of saliva Iron deficiency anemia: - Has hx of GI bleeds with duodenal/jejunal AVMs per history. Is taking oral iron, so stools are already dark. - iron <10. ferritin 14.1. UIBC 275 - deferred IV iron infusion in setting of pneumonia - Hb 6.5. asymptomatic. - No sign of active bleeding. - transfused 1u prbc on day of discharge. - Hb 7.5 on repeat after transfusion. - In setting of downtrending Hb 11.2 from 02/12/22, concern for UGIB given hx. recommend outpatient GI f/u for possible EGD. - Home pantoprazole qam increased to BID Hyperkalemia - 5.4. Elevated on repeat. Will call patient to hold home 20meq PO BID KCl supplement. Check BMP in 1-2 weeks. Pleural effusions: - CT chest: Small left and trace right pleural effusions. Pleural thickening is noted at the left lung base and this may be chronic/partially loculated. The sterility of this fluid cannot be assessed by CT. - moderate bilateral pleural effusions on 08/22/[address] - per the above, the pleural effusions do not appear to be new and per prior admission's pulm consult, etiology was thought to be related to CHF. Decrease in size is reassuring. Chronic diastolic (congestive) heart failure: - Continue home regimen. Is/Os neutral this admission tobacco use disorder: - nicotine patch 21mg qam + nicotine gum prn - continue counseling Obstructive sleep apnea: - cpap/bipap qhs. CAD (coronary artery disease): - Continue home statin and baby ASA Hypertension: - Continue home regimen. Anxiety: - Continue home escitalopram Patient was full code this admission. (2) Anemia: (3) Chronic diastolic (congestive) heart failure: (4) CAD (coronary artery disease): (5) Hypertension: (6) Anxiety: (7) Bilateral pleural effusion: (8) Acute on chronic respiratory failure: (9) Tobacco use disorder: (10) Hyperkalemia: Total Time Total Time Spent Total Time Spent (In Minutes): <30 Discharge Plan Discharge Items Patient Disposition: Home - Self-Care Reason For Visit: COPD EXACERBATION, ANEMIA Discharge Diagnosis: COPD exacerbation Activity: Per Instructions section Non-emergency contact: Primary Care Provider and [employer] Call non-emergency contact if: you have any medication questions, your symptoms worsen and you have a fever Follow-up/Referrals: Haley Oakley MD [Physician] - (has pulmonology appointment on 03/27/22) Robert Owen MD [Primary Care Provider] - (follow up in 1 week) Diet: Regular Ambulatory Orders: Hemoglobin and Hematocrit (Timed) Timeframe: 3 Days Location: Determined by Patient Ordered By: Satish Maguire Attending Provider Instructions: You were admitted to [facility] for COPD exacerbation. During this admission you did also require a blood transfusion given the drop in your blood counts. After the transfusion, you had a recheck which demonstrated improvement in these counts, given the steroids that you will be discharged on for your COPD exacerbation, it is important that you both take the acid suppression medication (pantoprazole) twice a day for the next two weeks. Given that your blood counts responded nicely prior to your discharge and your chronic anemia, you should have have a repeat blood draw later this week. For your COPD exacerbation you are being discharged on Cefdinir twice a day for an additional 7 days. Additionally, you are being discharged on a prednisone taper. As discussed with you and your , the goal will be to continue cut down on your cigarette use over the coming weeks/months. Pending Studies at Discharge: No Stand-Alone Forms: [facility], Smoking Cessation Medications and DC Order Prescriptions: New cefdinir 300 mg capsule 300 mg PO BID 7 Days Qty: 14 RF: 0 prednisone 10 mg tablet See Rx Instructions .ROUTE .COMPLEX Qty: 28 RF: 0 Continued docusate sodium 100 mg capsule 100 mg PO BID RF: 0 Trelegy Ellipta 100-62.5-25 mcg blister with device 1 inh inhalation DAILY Qty: 3 RF: 1 nicotine (polacrilex) 2 mg gum 2 mg buccal Q2H PRN (Reason: nicotine cravings) Qty: 120 RF: 3 escitalopram oxalate 10 mg tablet 10 mg PO DAILY RF: 0 potassium chloride 20 mEq tablet extended release 20 meq PO BID RF: 0 magnesium 250 mg tablet 250 mg PO DAILY RF: 0 atorvastatin 80 mg tablet 80 mg PO QPM RF: 0 multivitamin [Multiple Vitamins] Tablet 1 tab PO DAILY RF: 0 ferrous sulfate 325 mg (65 mg iron) tablet 65 mg PO BID RF: 0 acetaminophen 325 mg capsule 650 mg PO QID PRN (Reason: Pain) RF: 0 spironolactone 25 mg tablet 25 mg PO BID 30 Days Qty: 60 RF: 3 bumetanide 2 mg tablet See Rx Instructions PO BID RF: 0 azelastine 137 mcg (0.1 %) aerosol,spray 2 spray intranasal DAILY Qty: 30 RF: 3 aspirin [Adult Low Dose Aspirin] 81 mg tablet,delayed release (DR/EC) 81 mg PO QPM RF: 0 metolazone 2.5 mg Tablet 2.5 mg PO UD RF: 0 calcium 300 mg Tablet,Chewable 600 mg PO BID RF: 0 metoprolol tartrate 25 mg tablet 25 mg PO BID RF: 0 Changed pantoprazole 40 mg tablet,delayed release (DR/EC) 40 mg PO BID 30 Days Qty: 60 RF: 0 Discharge Orders: Discharge Order (Routine); Ordered 03/24/22 Ordered By: Satish Menard Admission Data Admit Date/Time: 03/22/22 12:47 Attending Provider: Malou Ansari Admit Provider: Papito Barger Primary Care Provider: Robert Owen Other Providers: Papito Barger ; Zeb Mcknight Other Interventions: Discharge Summary Assessment (RN) Last Done: 03/24/22 18:22 Supervising Physician Co-Signing Physician Notes Resident Physician Supervision Note: I independently interviewed and examined the patient and verified the verma history and physical, reviewed labs and image studies and agree with resident Dr. Prince findings and care plan. Resident Activity Tracking Resident Involvement: Resident Care Provided Care Provided: Adult Hospital Medicine
[2022-03-24 07:57] LABS: Hemoglobin 6.5 g/dL (14.0-18.0); Mean Corpuscular Hemoglobin 27.7 pg (25-34); Mean Corpuscular Hgb Conc 29.5 g/dL (32-36); Mean Corpuscular Volume 93.6 fL (80-100); Mean Platelet Volume 9.4 fL (7.4-10.4); Platelet Count 493 K/uL (130-400); RDW Coefficient of Variation 13.9 % (11.5-14.5); RDW Standard Deviation 47.6 fL (36.4-46.3); Red Blood Count 2.35 M/uL (4.7-6.1); White Blood Count 14.42 K/uL (4.8-10.8)
[2022-03-24] MEDS: ESCITALOPRAM OXALATE 10 MG TAB PO SCH (08:12)
[2022-03-24] MEDS: BENZONATATE 100 MG CAPSULE PO SCH ×2 (08:13→14:08)
[2022-03-24] MEDS: METOPROLOL TARTRATE 25 MG TAB PO SCH (08:13)
[2022-03-24] MEDS: BUMETANIDE 1 MG TAB PO SCH ×2 (08:13→11:53)
[2022-03-24] MEDS: FLUTICASONE/VILANTEROL 100/25MCG 14 PUFFS/INHALER INH SCH (08:14)
[2022-03-24] MEDS: DOCUSATE SODIUM 100 MG CAP PO SCH (08:14)
[2022-03-24] MEDS: methylPREDNISolone 40 MG in SYRINGE 0 ML IV SCH (08:14)
[2022-03-24] MEDS: UMECLIDINIUM BROMIDE 62.5MCG/BLISTER 7 PUFFS/INHALER INH SCH (08:15)
[2022-03-24] MEDS: NICOTINE 21 MG/24 HR TDSY TD SCH (08:15)
[2022-03-24] MEDS ORDERED: SODIUM CHLORIDE 0.9% 250 ML IV PRN ×2 (08:21→08:49)
[2022-03-24 08:28] LABS: Immature Granulocytes # (auto) 0.06 K/uL (0.00-0.02); Immature Granulocytes % (auto) 0.4 %; Lymphocytes # (auto) 0.64 K/uL (1.2-3.4); Lymphocytes % (auto) 4.4 %; Monocytes # (auto) 0.63 K/uL (0.11-0.59); Monocytes % (auto) 4.4 %; Neutrophils # (auto) 13.09 K/uL (1.4-6.5); Neutrophils % (auto) 90.8 %; Polychromasia 1+
[2022-03-24 09:17] LABS: BUN Creatinine Ratio 37.1 (10-20); Calcium 9.1 mg/dl (8.5-10.1); Creatinine Clr Calc Pharmacy 60.7 ml/min; Est GFR (African American) 86.3 ml/min; Est GFR (Non-African American) 74.5 ml/min; Magnesium 2.6 mg/dl (1.7-2.4); Potassium 5.4 mmol/L (3.5-5.1)
[2022-03-24] MEDS ORDERED: PANTOprazole 40 MG in SYRINGE 0 ML IV SCH (10:30)
--- NOTE | 2022-03-24 10:59 | Hospitalist Progress Note ---
Date of Service March 24, 2022 Assessment & Plan Admission and Anticipated Discharge Date Admission Date: March 22, 2022 Results & Data Results & Data ([facility]) Vital Signs (Past 12 Hours) Vital Signs Temp Pulse Pulse Pulse Resp BP BP 03/24/22 10:37 36.3 C L 89 18 132/49 L 03/24/22 07:47 36.5 C 91 H 18 174/54 H 03/24/22 07:29 100 H 03/24/22 07:23 91 H 22 03/24/22 04:14 36.8 C 73 18 132/43 L 03/24/22 03:17 87 18 03/23/22 23:26 36.8 C 88 18 112/42 L 03/23/22 23:05 86 20 Pulse Ox 03/24/22 10:37 92 03/24/22 07:47 93 03/24/22 07:29 03/24/22 07:23 92 03/24/22 04:14 96 03/24/22 03:17 94 03/23/22 23:26 96 03/23/22 23:05 91
[2022-03-24] MEDS: cefTRIAXone SODIUM 2,000 MG in DEXTROSE 5% 50 ML IV SCH (14:07)
[2022-03-24 16:31] LABS: Hematocrit (blood only) 24.7 % (42-52); Hemoglobin 7.5 g/dL (14.0-18.0)
== END 2022-03-24 18:42 | disposition home or self-care (01) | DRG 190 ==
LOC: ED 10:09 → SUATTDRO 12:47 → 2S 12:47 → 1E 17:44 → 2N 03-23 14:58
DX: D50.9 Iron deficiency anemia, unspecified; J44.0 Chronic obstructive pulmonary disease with (acute) lower respiratory infection; G47.33 Obstructive sleep apnea (adult) (pediatric); Z99.81 Dependence on supplemental oxygen; F41.9 Anxiety disorder, unspecified; Z79.82 Long term (current) use of aspirin; I11.0 Hypertensive heart disease with heart failure; I25.10 Atherosclerotic heart disease of native coronary artery without angina pectoris; J96.22 Acute and chronic respiratory failure with hypercapnia; J18.9 Pneumonia, unspecified organism; F17.210 Nicotine dependence, cigarettes, uncomplicated; R62.7 Adult failure to thrive; G93.41 Metabolic encephalopathy; E87.5 Hyperkalemia; J69.0 Pneumonitis due to inhalation of food and vomit; I50.32 Chronic diastolic (congestive) heart failure; J44.1 Chronic obstructive pulmonary disease with (acute) exacerbation; F03.90 Unspecified dementia, unspecified severity, without behavioral disturbance, psychotic disturbance, mood disturbance, and anxiety

== ENCOUNTER 2022-03-31 00:14 | Inpatient (IN) ==
[2022-03-31 01:18] LABS: Eosinophils # (auto) 0.44 K/uL (0-0.5); Eosinophils % (auto) 3.5 %; Hematocrit (blood only) 29.2 % (42-52); Hemoglobin 8.4 g/dL (14.0-18.0); Immature Granulocytes # (auto) 0.02 K/uL (0.00-0.02); Immature Granulocytes % (auto) 0.2 %; Lymphocytes # (auto) 1.36 K/uL (1.2-3.4); Lymphocytes % (auto) 10.8 %; Mean Corpuscular Hemoglobin 27.9 pg (25-34); Mean Corpuscular Hgb Conc 28.8 g/dL (32-36); Mean Platelet Volume 9.7 fL (7.4-10.4); Monocytes # (auto) 0.57 K/uL (0.11-0.59); Monocytes % (auto) 4.5 %; Neutrophils # (auto) 10.17 K/uL (1.4-6.5); Platelet Count 563 K/uL (130-400); RDW Coefficient of Variation 15.1 % (11.5-14.5); RDW Standard Deviation 53.2 fL (36.4-46.3); Red Blood Count 3.01 M/uL (4.7-6.1); White Blood Count 12.56 K/uL (4.8-10.8)
[2022-03-31 01:29] LABS: Alanine Aminotransferase 23 U/L (7-52); Albumin Globulin Ratio 1.3 (0.9-2); Albumin Level 3.8 gm/dl (3.4-5.0); Alkaline Phosphatase 73 U/L (34-104); Aspartate Aminotransferase 21 U/L (13-39); BUN Creatinine Ratio 30.2 (10-20); Bilirubin,Total 0.3 mg/dl (0.2-1.0); Blood Urea Nitrogen 32 mg/dl (6-23); Calcium 9.6 mg/dl (8.5-10.1); Carbon Dioxide > 45 mmol/L (21-32); Chloride 89 mmol/L (98-107); Creatinine Clr Calc Pharmacy 59.3 ml/min; Est GFR (African American) 77.5 ml/min; Est GFR (Non-African American) 66.9 ml/min; Globulin 2.9 gm/dl (2.5-4.0); Glucose 121 mg/dl (70-99(Fasting)); Magnesium 2.7 mg/dl (1.7-2.4); Potassium 4.1 mmol/L (3.5-5.1); Sodium 138 mmol/L (136-145); Total Protein 6.7 gm/dl (6.0-8.3); Troponin I High Sensitivity 27.6 pg/ml (0-20)
[2022-03-31 01:36] LABS: Appearance Urine Clear (Clear); Bacteria Urine Automated Negative (Negative); Bilirubin Urine Negative (Negative); Blood Urine Negative (Negative); Cast Urine Automated 0 /lpf (0-5); Color Urine Yellow; Epithelial Cell Urine Auto 0-5 /lpf (0-5); Glucose Urine UA Negative (Negative); Ketones Urine Negative (Negative); Leukocyte Esterase Urine Negative (Negative); Nitrite Urine Negative (Negative); RBC Urine Automated 0-4 /hpf (0-4); Specific Gravity Urine 1.016 (1.000-1.030); Urobilinogen Urine Negative (Negative); WBC Urine Automated 0 /hpf (0-5); pH Urine 7.5 (4.5-7.5)
[2022-03-31 01:45] LABS: Protein Urine Trace (Negative)
[2022-03-31] MEDS ORDERED: methylPREDNISolone 125 MG/2 ML VIAL IV STA ×2 (03:16→03:28)
--- NOTE | 2022-03-31 03:19 | History & Physical Report ---
Date of Service March 31, 2022 Assessment & Plan (1) Acute on chronic respiratory failure with hypoxia and hypercapnia: Plan: Acute on chronic respiratory failure with hypoxia and hypercapnia/COPD exacerbation with pneumonia/CHF exacerbation with bilateral pleural effusions- Titrating upward from nasal cannula oxygen to BiPAP 12/5/40 % (2) Elevated troponin I level: Plan: Elevated troponin I level/CAD/hypertension/CHF exacerbation with pleural effusions left greater than right- The patient will be admitted to telemetry for serial cardiac enzymes, serial EKG's, cardiac rhythm monitoring and a 2-D echocardiogram with Dopplers. Continue aspirin 81 mg daily, magnesium 2050 mg p.o. daily Metoprolol tartrate 25 mg p.o. twice daily Klor-Con 20 mEq p.o. twice daily Spironolactone 25 mg p.o. twice daily Hold oral bumetanide Give bumetanide 2 mg IV now, then 2 mg IV twice daily (3) Pneumonia: Plan: Bibasilar pneumonia/COPD exacerbation- Was given methylprednisolone 40 mg IV in route Give additional methylprednisolone 80 mg IV now. Methylprednisolone 40 mg IV every 8 hours Duonebs every 4 hours while awake and every 2 hours when necessary. Ceftriaxone 2 g IV daily Azithromycin 500 mg IV daily Guaifenesin extended release 12 mg p.o. twice daily Pulmicort Respules 0.5 mg inhaled twice daily (4) Acute exacerbation of chronic obstructive pulmonary disease: Plan: See above (5) Hypertension: Plan: See above (6) CAD (coronary artery disease): Plan: See above (7) Bilateral pleural effusion: Plan: See above (8) GERD (gastroesophageal reflux disease): Plan: Continue pantoprazole 40 mg p.o. twice daily (9) Tobacco use disorder: Plan: Tobacco cessation counseling (10) Anxiety: Plan: Continue escitalopram 10 mg daily History of Present Illness Chief Complaint: The patient presents to the emergency department after being found by family to be poorly responsive, while sitting out on his back porch deck, smoking a cigarette, having left his 5 L oxygen nasal cannula back in the house Primary Care Provider: Robert Owen MD The patient is a 76-year-old male with a past medical history including ongoing tobacco use disorder, acute on chronic respiratory failure, COPD exacerbation, anemia, anxiety, chronic diastolic CHF, CAD, hypertension and hyperlipidemia. He presents to the emergency department as noted above. His pulse ox when initially seen by EMS on his [employer] deck was reportedly 39%. Allergies Allergy/AdvReac Type Severity Reaction Status Date / Time No Known Drug Allergies Allergy NKDA Verified 03/27/22 14:23 Home Medications Medication Instructions Recorded Confirmed Type atorvastatin 80 mg tablet 80 mg PO QPM 05/20/20 03/27/22 History magnesium 250 mg tablet 250 mg PO DAILY 05/20/20 03/27/22 History potassium chloride 20 mEq 20 meq PO BID 05/20/20 03/27/22 History tablet,extended release multivitamin (Multiple Vitamins) 1 tab PO DAILY 05/21/20 03/27/22 History docusate sodium 100 mg capsule 100 mg PO BID 06/10/20 03/27/22 History acetaminophen 325 mg capsule 650 mg PO QID PRN 06/11/20 03/27/22 History spironolactone 25 mg tablet 25 mg PO BID 30 Days #60 tab 09/30/20 03/27/22 Rx ferrous sulfate 325 mg (65 mg 65 mg PO BID tab 02/27/21 03/27/22 History iron) tablet nicotine (polacrilex) 2 mg gum 2 mg BUCCAL Q2H PRN #120 ea 09/30/21 03/27/22 Rx bumetanide 2 mg tablet See Rx Instructions PO BID tab 02/12/22 03/27/22 History escitalopram oxalate 10 mg tablet 10 mg PO DAILY 02/12/22 03/27/22 History azelastine 137 mcg (0.1 %) nasal 2 spray INTRANASAL DAILY #30 ml 03/10/22 03/27/22 Rx spray aerosol aspirin 81 mg tablet,delayed 81 mg PO QPM 03/19/22 03/27/22 History release (Adult Low Dose Aspirin) calcium 300 mg chewable tablet 600 mg PO BID 03/22/22 03/27/22 History metolazone 2.5 mg tablet 2.5 mg PO UD 03/22/22 03/27/22 History metoprolol tartrate 25 mg tablet 25 mg PO BID 03/22/22 03/27/22 History pantoprazole 40 mg tablet,delayed 40 mg PO BID 30 Days #60 tab 03/24/22 03/27/22 Rx release prednisone 10 mg tablet See Rx Instructions .ROUTE 03/24/22 03/27/22 Rx .COMPLEX #28 tab Flutter Valve #1 ea 03/27/22 03/27/22 Rx albuterol sulfate 90 mcg/actuation 2 puff INHALATION Q6H PRN #18 g 03/27/22 03/27/22 Rx aerosol inhaler fluticasone fur. 100 mcg-umeclid 1 inh INHALATION DAILY #3 inhaler 03/27/22 03/27/22 Rx 62.5 mcg-vilant 25 mcg inhalat.powder (Trelegy Ellipta) Oxygen Home #1 ea 03/30/22 Rx Past Med/Surg History Medical History (Updated 03/31/22 @ 03:55 by Liang Loomis MD) Acute GI bleeding Acute hyperglycemia Anemia Anemia Anemia Aortic stenosis severe asymptomatic Elevated troponin I level GERD (gastroesophageal reflux disease) History of GI bleed Hypertension Hypertension Hypoxia Hypoxia Metabolic alkalosis with respiratory acidosis SOB (shortness of breath) Tobacco use disorder Uremia Surgical History (Updated 03/26/22 @ 00:10 by Lisa Kitchen) History of left-sided carotid endarterectomy 2013 Family History Father Hypertension Mother Hypotension Breast cancer Other No family history of adverse response to anesthesia No family history of bleeding disorder Social History Smoking Status: Current every day smoker Tobacco Type: Cigarettes packs per day: 1; Second Hand Exposure: Yes; Preferred Language: Nauruan Communication Ability: Unable Visual Impairment: No Limitations Senior Site Manager Required: No Beliefs That Will Affect Care: None marital status: Current Living Situation: Spouse Current Living Situation Comment: UNABLE TO ASSESS current occupational status: retired Feels Safe at Home: Yes Assistive Devices: Oxygen - Continuous Review of Systems Review of Systems: Review of systems limited due to poor patient responsiveness and lethargy Physical Exam Physical Exam: The patient is lethargic, arousable, stating that he just wanted to sleep, normocephalic and atraumatic, lying in bed and in no acute distress. HEENT--PERRL, EOMI, mucous membranes and oropharynx dry. Neck--supple. No JVD. No bruits. Thyroid normal, trachea midline, no adenopathy. Heart--normal S1 and S2. No murmurs, rubs or gallops. Lungs--coarse breath sounds bilaterally with wheezes. No respiratory distress, no accessory muscle use. Abdomen--normal bowel sounds and soft. Nontender. Nondistended, no hernias or masses, no organomegaly. Extremities--no cyanosis or clubbing. No edema. Dermatologic--normal skin turgor, normal color, no abnormal lymph nodes, no rash. Neurologic--cranial nerves II through XII grossly intact. Rheumatologic--normal range of motion. Psychiatric--normal affect. Results & Data Results & Data ([facility]) Vital Signs (Past 12 Hours) Vital Signs Temp Pulse Resp BP Pulse Ox 03/31/22 03:01 90 22 155/51 H 87 L 03/31/22 01:30 74 21 120/45 L 95 03/31/22 01:00 78 21 133/43 L 96 03/31/22 00:30 84 20 142/54 H 93 03/31/22 00:27 36.8 C 85 26 H 132/40 L 92 Laboratory Results Laboratory Results WBC 12.56 K/uL (4.8-10.8) H 03/31/22 00:30 RBC 3.01 M/uL (4.7-6.1) L 03/31/22 00:30 Hgb 8.4 g/dL (14.0-18.0) L 03/31/22 00:30 POC Hgb 8.8 g/dl (14.0-18.0) L 03/31/22 03:21 Hct 29.2 % (42-52) L 03/31/22 00:30 POC Hct 26 % (42-52) L 03/31/22 03:21 MCV 97.0 fL (80-100) 03/31/22 00:30 MCH 27.9 pg (25-34) 03/31/22 00:30 MCHC 28.8 g/dL (32-36) L 03/31/22 00:30 RDW Std Deviation 53.2 fL (36.4-46.3) H 03/31/22 00:30 RDW Coeff of [place] 15.1 % (11.5-14.5) H 03/31/22 00:30 Plt Count 563 K/uL (130-400) H 03/31/22 00:30 MPV 9.7 fL (7.4-10.4) 03/31/22 00:30 Immature Gran % (Auto) 0.2 % 03/31/22 00:30 Neut % (Auto) 81.0 % 03/31/22 00:30 Lymph % (Auto) 10.8 % 03/31/22 00:30 [place] % (Auto) 4.5 % 03/31/22 00:30 Eos % (Auto) 3.5 % 03/31/22 00:30 Baso % (Auto) 0.0 % 03/31/22 00:30 Neut # (Auto) 10.17 K/uL (1.4-6.5) H 03/31/22 00:30 Lymph # (Auto) 1.36 K/uL (1.2-3.4) 03/31/22 00:30 [place] # (Auto) 0.57 K/uL (0.11-0.59) 03/31/22 00:30 Eos # (Auto) 0.44 K/uL (0-0.5) 03/31/22 00:30 Baso # (Auto) 0.00 K/uL (0-0.2) 03/31/22 00:30 Immature Gran # (Auto) 0.02 K/uL (0.00-0.02) 03/31/22 00:30 POC pH 7.36 (7.35-7.45) 03/31/22 03:21 POC pCO2 88 mmHg (35-46) H 03/31/22 03:21 POC pO2 232 mmHg (80-95) H 03/31/22 03:21 POC HCO3 49 amy/L (19-24) H 03/31/22 03:21 POC Total CO2 > 50 mmol/L (24-31) H* 03/31/22 03:21 POC Base Excess 24.0 amy/L (-9-1.8) H 03/31/22 03:21 POC ABG O2 Sat 100.0 % (90-95) H 03/31/22 03:21 POC Sodium 133 mmol/L (135-144) L 03/31/22 03:21 Sodium 138 mmol/L (136-145) 03/31/22 00:30 POC Potassium 4.5 mmol/L (3.3-5.0) 03/31/22 03:21 Potassium 4.1 mmol/L (3.5-5.1) 03/31/22 00:30 Chloride 89 mmol/L (98-107) L 03/31/22 00:30 Carbon Dioxide > 45 mmol/L (21-32) H* 03/31/22 00:30 Anion Gap TNP 03/31/22 00:30 BUN 32 mg/dl (6-23) H 03/31/22 00:30 Creatinine 1.06 mg/dl (0.6-1.4) 03/31/22 00:30 Est Cr Clr Drug Dosing 59.3 ml/min 03/31/22 00:30 Est GFR ( Amer) 77.5 ml/min 03/31/22 00:30 Est GFR (Non-Af Amer) 66.9 ml/min 03/31/22 00:30 BUN/Creatinine Ratio 30.2 (10-20) H 03/31/22 00:30 Glucose 121 mg/dl (70-99(Fasting)) H 03/31/22 00:30 Calcium 9.6 mg/dl (8.5-10.1) 03/31/22 00:30 Magnesium 2.7 mg/dl (1.7-2.4) H 03/31/22 00:30 Total Bilirubin 0.3 mg/dl (0.2-1.0) 03/31/22 00:30 AST 21 U/L (13-39) 03/31/22 00:30 ALT 23 U/L (7-52) 03/31/22 00:30 Alkaline Phosphatase 73 U/L (34-104) 03/31/22 00:30 Troponin I High Sens 27.6 pg/ml (0-20) H D 03/31/22 00:30 Total Protein 6.7 gm/dl (6.0-8.3) 03/31/22 00:30 Albumin 3.8 gm/dl (3.4-5.0) 03/31/22 00:30 Globulin 2.9 gm/dl (2.5-4.0) 03/31/22 00:30 Albumin/Globulin Ratio 1.3 (0.9-2) 03/31/22 00:30 Urine Color Yellow 03/31/22 01:10 Urine Appearance Clear (Clear) 03/31/22 01:10 Urine pH 7.5 (4.5-7.5) 03/31/22 01:10 Ur Specific [place] 1.016 (1.000-1.030) 03/31/22 01:10 Urine Protein Trace (Negative) H 03/31/22 01:10 Urine Glucose (UA) Negative (Negative) 03/31/22 01:10 Urine Ketones Negative (Negative) 03/31/22 01:10 Urine Blood Negative (Negative) 03/31/22 01:10 Urine Nitrite Negative (Negative) 03/31/22 01:10 Urine Bilirubin Negative (Negative) 03/31/22 01:10 Urine Urobilinogen Negative (Negative) 03/31/22 01:10 Ur Leukocyte Esterase Negative (Negative) 03/31/22 01:10 Urine WBC (Auto) 0 /hpf (0-5) 03/31/22 01:10 Urine RBC (Auto) 0-4 /hpf (0-4) 03/31/22 01:10 U Hyaline Cast (Auto) 0 /lpf (0-5) 03/31/22 01:10 U Epithel Cells (Auto) 0-5 /lpf (0-5) 03/31/22 01:10 Urine Bacteria (Auto) Negative (Negative) 03/31/22 01:10 SARS-CoV-2, RNA, NAAT NEGATIVE (NEGATIVE) 03/31/22 01:42 Code Status & VTE Plan Code Status Full code VTE Prophylaxis Plan VTE Prophylaxis will be ordered: Yes PG Care Time/CCT Total # of Minutes Spent Total Time Spent with Patient: Total time spent is greater than 50% in coordination of care (as documented) at patient's floor/unit and/or counseling patient: Coding Level of Care Code 20599 Initial Inpt Care Lvl 3 Diagnoses Acute on chronic respiratory failure with hypoxia and hypercapnia J96.21; J96.22 Tobacco use disorder F17.200 Acute exacerbation of chronic obstructive pulmonary disease J44.1 Pneumonia J18.9 Hypertension I10 CAD (coronary artery disease) I25.10 Bilateral pleural effusion J90 Anxiety F41.9 Elevated troponin I level R77.8 GERD (gastroesophageal reflux disease) K21.9
[2022-03-31] MEDS ORDERED: BUMETANIDE 2 MG in SYRINGE 0 ML IV ONE (03:30)
[2022-03-31 03:35] LABS: iSTAT Arterial Blood Gas HCO3 49 meg/L (19-24); iSTAT Arterial Blood Gas pCO2 88 mmHg (35-46); iSTAT Arterial Blood Gas pH 7.36 (7.35-7.45); iSTAT Arterial Blood Gas pO2 232 mmHg (80-95); iSTAT Carbon Dioxide > 50 mmol/L (24-31); iSTAT Hematocrit 26 % (42-52); iSTAT Hemoglobin 8.8 g/dl (14.0-18.0); iSTAT Potassium 4.5 mmol/L (3.3-5.0); iSTAT Sodium 133 mmol/L (135-144)
--- NOTE | 2022-03-31 04:11 | Emergency Department Note ---
Impression & Plan Acute exacerb[facility] of [facility] NAME: TIEN PIERCE AGE: 76 SEX: M ARRIVES VIA: Ambulance INFORMANT: Patient ED PROVIDER(S): Dari Tejeda DO CHIEF COMPLAINT: Shortness of breath PLAN: Disposition: Admit to the [facility] Condition: Guarded MEDICAL DECISION MAKING: This is a 76-year-old male patient who presents to the emergency department with moderate shortness of breath after being disconnected from his home oxygen. Upon EMS arrival to his home, his O2 saturations were in the 40s. The patient typically wears 5 L of oxygen by nasal cannula at home. Unfortunately, the pat ient went outside to smoke a cigarette and did not realize that his oxygen had become disconnected. He became extremely short of breath and EMS was called. The patient had been evaluated 4 days ago by pulmonology for increasing shortness of breath and was directed to the emergency department at that time but the patient refused to go. Triage Nursing notes reviewed and agree with them. Prior medical records reviewed Vital Signs: reviewed and remarkable for no significant abnormalities Differential diagnosis: Pneumonia, COPD exacerbation, CHF Diagnostics interpreted by me: ECG: Normal sinus rhythm at a rate of 86 with PVCs. There is no ST segment elevation or signs of ischemia. Cardiac Monitoring: Sinus rhythm at a rate of 78 Laboratory studies: See below Imaging studies: As per my interpretation Chest x-ray: Lateral pleural effusions with the left greater than the right. cardioMegaly HPI: 76/M arrives for evaluation of shortness of breath. The patient went outside tonight to smoke and did not realize that his supplemental oxygen got disconnected. He quickly became short of breath and weak. EMS was called to the home and found his O2 saturations to be in the 40s. They administered IV Solu-Medrol and placed him back on a nonrebreather which brought his O2 saturations back up to 90. Patient had been seen by pulmonology just a couple of days ago and they recommended evaluation in the emergency department at that time but he refused. ROS: See above HPI for pertinent positives & negatives. A total of 10 systems reviewed and were otherwise negative. PAST MEDICAL HISTORY:See Below PAST SURGICAL HISTORY:See Below FAMILY HISTORY:See Below SOCIAL HISTORY:See Below HOME MEDICATIONS:See list ALLERGIES:None VITALS:See Below PHYSICAL EXAMINATION: HEENT: Head - normocephalic and atraumatic. Pupils are equal, round, and reactive to light. Extraocular eye muscles are intact, and sclera are anicteric. Nose - moist nasal mucosa without discharge. Mouth - moist buccal mucosa. Oropharynx is nonerythematous and there is no tonsillar exudate or ellis a noted. Neck: Supple; no JVD or cervical lymphadenopathy Heart: Regular rate and rhythm. There is a normal S1 and S2 with no murmurs, clicks, or gallops appreciated. Lungs: Clear to auscultation bilaterally with no wheezes, rales, or rhonchi. Abdomen: Soft, completely nontender, nondistended, with good bowel sounds. There are no palpable pulsatile masses or hepatosplenomegaly. There is no guar ding, rigidity, or rebound noted. Extremities: No evidence of cyanosis, clubbing, or edema. There are easily palpable peripheral pulses. Skin: Pale, warm and dry with good turgor and no rashes. ED COURSE: Times/Reassessments: 0030: The patient was evaluated in room C4. A complete history and physical was performed. Laboratory studies were drawn as above. A twelve-lead EKG was obtained as described above. An order was placed for continuous cardiac monitoring. The patient was in a normal sinus rhythm at a rate of 78. The patient had a chest x-ray as described above. His O2 saturations remained stable. He had good air exchange. Dari Tejeda DO Past Med/Surg History Medical History (Updated 03/31/22 @ 06:56 by Dari Tejeda DO) Acute GI bleeding Acute hyperglycemia Anemia Anemia Anemia Aortic stenosis severe asymptomatic Elevated troponin I level GERD (gastroesophageal reflux disease) History of GI bleed Hypertension Hypertension Hypoxia Hypoxia Metabolic alkalosis with respiratory acidosis SOB (shortness of breath) Tobacco use disorder Uremia Surgical History (Updated 03/26/22 @ 00:10 by Lisa Kitchen) History of left-sided carotid endarterectomy 2013 Family History Father Hypertension Mother Hypotension Breast cancer Other No family history of adverse response to anesthesia No family history of bleeding disorder Social History Smoking Status: Current every day smoker Tobacco Type: Cigarettes packs per day: 1; Second Hand Exposure: No; Hx Alcohol Use: Yes Alcohol type: hard liquor Alcohol Intake Frequency: Monthly or Less Alcohol Intake Frequency Comment: 1 bottle of Manny Dupree a month Hx Substance Use: No Preferred Language: Andorran Communication Ability: Effective Visual Impairment: No Limitations Incendiaries Supervisor Required: No Beliefs That Will Affect Care: None marital status: Current Living Situation: Spouse Current Living Situation Comment: house current occupational status: retired Feels Safe at Home: Yes Assistive Devices: CPAP, Denture - Upper, Denture - Lower, Oxygen - at Night and Oxygen - Continuous Allergies Allergies Allergy/AdvReac Type Severity Reaction Status Date / Time No Known Drug Allergies Allergy NKDA Verified 03/27/22 14:23 Home Meds Home Medications Medication Instructions Recorded Confirmed atorvastatin 80 mg tablet 80 mg PO QPM 05/20/20 03/27/22 magnesium 250 mg tablet 250 mg PO DAILY 05/20/20 03/27/22 potassium chloride 20 mEq 20 meq PO BID 05/20/20 03/27/22 tablet,extended release multivitamin (Multiple Vitamins) 1 tab PO DAILY 05/21/20 03/27/22 docusate sodium 100 mg capsule 100 mg PO BID 06/10/20 03/27/22 acetaminophen 325 mg capsule 650 mg PO QID PRN 06/11/20 03/27/22 ferrous sulfate 325 mg (65 mg 65 mg PO BID tab 02/27/21 03/27/22 iron) tablet bumetanide 2 mg tablet See Rx Instructions PO BID tab 02/12/22 03/27/22 escitalopram oxalate 10 mg tablet 10 mg PO DAILY 02/12/22 03/27/22 aspirin 81 mg tablet,delayed 81 mg PO QPM 03/19/22 03/27/22 release (Adult Low Dose Aspirin) calcium 300 mg chewable tablet 600 mg PO BID 03/22/22 03/27/22 metolazone 2.5 mg tablet 2.5 mg PO UD 03/22/22 03/27/22 metoprolol tartrate 25 mg tablet 25 mg PO BID 03/22/22 03/27/22 Previous Rx's Medication Instructions Recorded spironolactone 25 mg tablet 25 mg PO BID 30 Days #60 tab 09/30/20 nicotine (polacrilex) 2 mg gum 2 mg BUCCAL Q2H PRN #120 ea 09/30/21 azelastine 137 mcg (0.1 %) nasal 2 spray INTRANASAL DAILY #30 ml 03/10/22 spray aerosol pantoprazole 40 mg tablet,delayed 40 mg PO BID 30 Days #60 tab 03/24/22 release prednisone 10 mg tablet See Rx Instructions .ROUTE 03/24/22 .COMPLEX #28 tab Flutter Valve #1 ea 03/27/22 albuterol sulfate 90 mcg/actuation 2 puff INHALATION Q6H PRN #18 g 03/27/22 aerosol inhaler fluticasone fur. 100 mcg-umeclid 1 inh INHALATION DAILY #3 inhaler 03/27/22 62.5 mcg-vilant 25 mcg inhalat.powder (Trelegy Ellipta) Oxygen Home #1 ea 03/30/22 Results & Data (ED) Vital Signs Vital Signs - 24 hr 03/31/22 00:27 03/31/22 00:30 03/31/22 01:00 Temperature 36.8 C Temperature Source Oral Pulse Rate 85 84 78 Pulse Rate from SpO2 Sensor 82 80 Respiratory Rate 26 H 20 21 Blood Pressure 132/40 L 142/54 H 133/43 L Blood Pressure Mean 70 83 73 Pulse Oximetry 92 93 96 Oxygen Delivery Method Nasal Cannula Nasal Cannula Nasal Cannula Oxygen Flow Rate 5 5 5 Sepsis Recent Fever Within 48 Hours No Sepsis New/Unexplained Change in Mental Status N/A Sepsis Action Taken by Nursing No Action Required 03/31/22 01:30 03/31/22 03:01 Temperature Temperature Source Pulse Rate 74 90 Pulse Rate from SpO2 Sensor 74 Respiratory Rate 21 22 Blood Pressure 120/45 L 155/51 H Blood Pressure Mean 70 85 Pulse Oximetry 95 87 L Oxygen Delivery Method Nasal Cannula Nasal Cannula Oxygen Flow Rate 5 5 Sepsis Recent Fever Within 48 Hours Sepsis New/Unexplained Change in Mental Status Sepsis Action Taken by Nursing Laboratory Data Result diagrams: 03/31/22 00:30 03/31/22 00:30 Lab Results 03/31/22 03/31/22 03/31/22 Range/Units 00:30 00:30 01:10 WBC 12.56 H (4.8-10.8) K/uL RBC 3.01 L (4.7-6.1) M/uL Hgb 8.4 L (14.0-18.0) g/dL Hct 29.2 L (42-52) % MCV 97.0 (80-100) fL MCH 27.9 (25-34) pg MCHC 28.8 L (32-36) g/dL RDW Std Deviation 53.2 H (36.4-46.3) fL RDW Coeff of [place] 15.1 H (11.5-14.5) % Plt Count 563 H (130-400) K/uL MPV 9.7 (7.4-10.4) fL Immature Gran % (Auto) 0.2 % Neut % (Auto) 81.0 % Lymph % (Auto) 10.8 % [place] % (Auto) 4.5 % Eos % (Auto) 3.5 % Baso % (Auto) 0.0 % Neut # (Auto) 10.17 H (1.4-6.5) K/uL Lymph # (Auto) 1.36 (1.2-3.4) K/uL [place] # (Auto) 0.57 (0.11-0.59) K/uL Eos # (Auto) 0.44 (0-0.5) K/uL Baso # (Auto) 0.00 (0-0.2) K/uL Immature Gran # (Auto) 0.02 (0.00-0.02) K/uL Sodium 138 (136-145) mmol/L Potassium 4.1 (3.5-5.1) mmol/L Chloride 89 L (98-107) mmol/L Carbon Dioxide > 45 H* (21-32) mmol/L Anion Gap TNP BUN 32 H (6-23) mg/dl Creatinine 1.06 (0.6-1.4) mg/dl Est Cr Clr Drug Dosing 59.3 ml/min Est GFR ( Amer) 77.5 ml/min Est GFR (Non-Af Amer) 66.9 ml/min BUN/Creatinine Ratio 30.2 H (10-20) Glucose 121 H (70-99(Fasting)) mg/dl Calcium 9.6 (8.5-10.1) mg/dl Magnesium 2.7 H (1.7-2.4) mg/dl Total Bilirubin 0.3 (0.2-1.0) mg/dl AST 21 (13-39) U/L ALT 23 (7-52) U/L Alkaline Phosphatase 73 (34-104) U/L Troponin I High Sens 27.6 H D (0-20) pg/ml Total Protein 6.7 (6.0-8.3) gm/dl Albumin 3.8 (3.4-5.0) gm/dl Globulin 2.9 (2.5-4.0) gm/dl Albumin/Globulin Ratio 1.3 (0.9-2) Urine Color Yellow Urine Appearance Clear (Clear) Urine pH 7.5 (4.5-7.5) Ur Specific [place] 1.016 (1.000-1.030) Urine Protein Trace H (Negative) Urine Glucose (UA) Negative (Negative) Urine Ketones Negative (Negative) Urine Blood Negative (Negative) Urine Nitrite Negative (Negative) Urine Bilirubin Negative (Negative) Urine Urobilinogen Negative (Negative) Ur Leukocyte Esterase Negative (Negative) Urine WBC (Auto) 0 (0-5) /hpf Urine RBC (Auto) 0-4 (0-4) /hpf U Hyaline Cast (Auto) 0 (0-5) /lpf U Epithel Cells (Auto) 0-5 (0-5) /lpf Urine Bacteria (Auto) Negative (Negative) SARS-CoV-2, RNA, NAAT (NEGATIVE) 03/31/22 Range/Units 01:42 WBC (4.8-10.8) K/uL RBC (4.7-6.1) M/uL Hgb (14.0-18.0) g/dL Hct (42-52) % MCV (80-100) fL MCH (25-34) pg MCHC (32-36) g/dL RDW Std Deviation (36.4-46.3) fL RDW Coeff of [place] (11.5-14.5) % Plt Count (130-400) K/uL MPV (7.4-10.4) fL Immature Gran % (Auto) % Neut % (Auto) % Lymph % (Auto) % [place] % (Auto) % Eos % (Auto) % Baso % (Auto) % Neut # (Auto) (1.4-6.5) K/uL Lymph # (Auto) (1.2-3.4) K/uL [place] # (Auto) (0.11-0.59) K/uL Eos # (Auto) (0-0.5) K/uL Baso # (Auto) (0-0.2) K/uL Immature Gran # (Auto) (0.00-0.02) K/uL Sodium (136-145) mmol/L Potassium (3.5-5.1) mmol/L Chloride (98-107) mmol/L Carbon Dioxide (21-32) mmol/L Anion Gap BUN (6-23) mg/dl Creatinine (0.6-1.4) mg/dl Est Cr Clr Drug Dosing ml/min Est GFR ( Amer) ml/min Est GFR (Non-Af Amer) ml/min BUN/Creatinine Ratio (10-20) Glucose (70-99(Fasting)) mg/dl Calcium (8.5-10.1) mg/dl Magnesium (1.7-2.4) mg/dl Total Bilirubin (0.2-1.0) mg/dl AST (13-39) U/L ALT (7-52) U/L Alkaline Phosphatase (34-104) U/L Troponin I High Sens (0-20) pg/ml Total Protein (6.0-8.3) gm/dl Albumin (3.4-5.0) gm/dl Globulin (2.5-4.0) gm/dl Albumin/Globulin Ratio (0.9-2) Urine Color Urine Appearance (Clear) Urine pH (4.5-7.5) Ur Specific [place] (1.000-1.030) Urine Protein (Negative) Urine Glucose (UA) (Negative) Urine Ketones (Negative) Urine Blood (Negative) Urine Nitrite (Negative) Urine Bilirubin (Negative) Urine Urobilinogen (Negative) Ur Leukocyte Esterase (Negative) Urine WBC (Auto) (0-5) /hpf Urine RBC (Auto) (0-4) /hpf U Hyaline Cast (Auto) (0-5) /lpf U Epithel Cells (Auto) (0-5) /lpf Urine Bacteria (Auto) (Negative) SARS-CoV-2, RNA, NAAT NEGATIVE (NEGATIVE) Administered Medications Ceftriaxone Sodium 2,000 mg/ (Dextrose) 70 mls @ 100 mls/hr IV Q24H [facility]; Protocol Stop: 04/07/22 05:59 Last Admin: 03/31/22 06:15 Dose: 100 mls/hr Documented by: [id number] Discontinued Medications Bumetanide 2 mg/ Syringe 8 mls @ 4 mls/min IV ONE ONE Stop: 03/31/22 03:31 Last Admin: 03/31/22 04:14 Dose: 4 mls/min Documented by: [id number] Methylprednisolone (Methylprednisolone 125 Mg/2 Ml Vial) 80 mg IV NOW STA Stop: 03/31/22 03:29 Last Admin: 03/31/22 03:57 Dose: 80 mg Documented by: [id number] Discharge Plan Visit Data Chief Complaint: Shortness of Breath/Dyspnea ED Provider: Dari Tejeda Discharge Problem: Acute exacerbation of chronic obstructive pulmonary disease Patient Disposition: Admitted As Inpatient Discharge Instructions Interventions: ED Discharge Assessment Last Done: 03/31/22 04:17
[2022-03-31] MEDS ORDERED: ACETAMINOPHEN 325 MG TAB PO PRN (04:46)
[2022-03-31] MEDS ORDERED: ONDANSETRON INJ 2 MG/ML 2 ML VIAL IV PRN (04:46)
[2022-03-31] MEDS ORDERED: cefTRIAXone SODIUM 2,000 MG in DEXTROSE 5% 50 ML IV SCH (06:00)
[2022-03-31] MEDS: ALBUT/IPRATROP 3MG/0.5MG NEB 3 ML VIAL NEB SCH ×3 (07:01→19:28)
[2022-03-31] MEDS: BUDESONIDE 0.5 MG/2 ML VIAL (PULMICORT) NEB SCH ×2 (07:01→19:28)
--- NOTE | 2022-03-31 08:23 | XRay Report ---
XR chest 1V portable HISTORY: Dyspnea COMPARISON: Chest 03/23/2022. FINDINGS: No pneumothorax. The heart remains enlarged. Mild interstitial pulmonary edema, bibasilar d ensities, and small bilateral pleural effusions persist. A cardiac valve stent graft is again noted. IMPRESSION: 1. Cardiomegaly and mild interstitial pulmonary edema persist. 2. Small bilateral pleural effusions bibasilar densities are also unchanged. ACT 112: Negative or not required by law. Electronically signed by: Nikhil Louise M.D. 03/31/2022 8:22 AM
[2022-03-31] MEDS: SPIRONOLACTONE 25 MG TAB PO SCH ×2 (08:41→21:05)
[2022-03-31] MEDS: UMECLIDINIUM/VILANTEROL 62.5/25MCG 7 PUFFS/INHALER INH SCH (08:41)
[2022-03-31] MEDS: HEPARIN SOD 5,000 UNIT/0.5 ML VIAL SQ SCH ×2 (08:41→21:06)
[2022-03-31] MEDS: FLUTICASONE FUROATE 100MCG 14 PUFFS/INHALER INH SCH (08:41)
[2022-03-31] MEDS: DOCUSATE SODIUM 100 MG CAP PO SCH ×2 (08:42→21:06)
[2022-03-31] MEDS: FERROUS SULFATE 325 MG TAB PO SCH ×2 (08:42→21:05)
[2022-03-31] MEDS: guaiFENesin 600 MG TABCR PO SCH ×2 (08:42→21:06)
[2022-03-31] MEDS: ESCITALOPRAM OXALATE 10 MG TAB PO SCH (08:42)
[2022-03-31] MEDS: MAGNESIUM OXIDE 400 MG TAB PO SCH (08:42)
[2022-03-31] MEDS: PANTOprazole 40 MG TAB PO SCH ×2 (08:42→21:05)
[2022-03-31] MEDS: MULTIVITAMIN TAB PO SCH (08:42)
[2022-03-31] MEDS ORDERED: AZITHROMYCIN 500 MG in DEXTROSE 5% 250 ML IV SCH (09:00)
[2022-03-31] MEDS ORDERED: NON-FORMULARY MEDICATION (Fluticasone-Umeclidin-Vilanter [Trelegy Ellipta] 100-62.5-25 mcg INH SCH (09:00)
[2022-03-31] MEDS: BUMETANIDE 2 MG in SYRINGE 0 ML IV SCH ×2 (09:39→16:42)
[2022-03-31] MEDS: NICOTINE 21 MG/24 HR TDSY TD SCH (09:39)
[2022-03-31] MEDS: CALCIUM 600MG + VIT D 400 IU TAB PO SCH ×2 (10:36→21:05)
[2022-03-31] MEDS: METOPROLOL TARTRATE 25 MG TAB PO SCH ×2 (10:37→21:05)
[2022-03-31] MEDS: POTASSIUM CHLORIDE CRTAB 20 MEQ TABCR PO SCH ×2 (10:37→21:07)
[2022-03-31] MEDS ORDERED: methylPREDNISolone 40 MG in SYRINGE 0 ML IV SCH (14:00)
--- NOTE | 2022-03-31 18:15 | Hospitalist Progress Note ---
Date of Service March 31, 2022 Assessment & Plan (1) Acute on chronic respiratory failure with hypoxia and hypercapnia: Plan: Acute on chronic respiratory failure with hypoxia and hypercapnia/COPD exacerbation with pneumonia/CHF exacerbation with bilateral pleural effusions- Titrating upward from nasal cannula oxygen to BiPAP 12/5/40 % (2) Elevated troponin I level: Plan: Elevated troponin I level/CAD/hypertension/CHF exacerbation with pleural effusions left greater than right- The patient will be admitted to telemetry for serial cardiac enzymes, serial EKG's, cardiac rhythm monitoring and a 2-D echocardiogram with Dopplers. Continue aspirin 81 mg daily, magnesium 2050 mg p.o. daily Metoprolol tartrate 25 mg p.o. twice daily Klor-Con 20 mEq p.o. twice daily Spironolactone 25 mg p.o. twice daily Hold oral bumetanide Give bumetanide 2 mg IV now, then 2 mg IV twice daily (3) Pneumonia: Plan: Bibasilar pneumonia/COPD exacerbation- Was given methylprednisolone 40 mg IV in route Give additional methylprednisolone 80 mg IV now. Methylprednisolone 40 mg IV every 8 hours Duonebs every 4 hours while awake and every 2 hours when necessary. Ceftriaxone 2 g IV daily Azithromycin 500 mg IV daily Guaifenesin extended release 12 mg p.o. twice daily Pulmicort Respules 0.5 mg inhaled twice daily (4) Acute exacerbation of chronic obstructive pulmonary disease: Plan: See above (5) Hypertension: Plan: See above (6) CAD (coronary artery disease): Plan: See above (7) Bilateral pleural effusion: Plan: See above (8) GERD (gastroesophageal reflux disease): Plan: Continue pantoprazole 40 mg p.o. twice daily (9) Tobacco use disorder: Plan: Tobacco cessation counseling (10) Anxiety: Plan: Continue escitalopram 10 mg daily Admission and Anticipated Discharge Date Admission Date: March 31, 2022 Physical Exam Physical Exam: The patient is lethargic, arousable, stating that he just wanted to sleep, normocephalic and atraumatic, lying in bed and in no acute distress. HEENT--PERRL, EOMI, mucous membranes and oropharynx dry. Neck--supple. No JVD. No bruits. Thyroid normal, trachea midline, no adenopathy. Heart--normal S1 and S2. No murmurs, rubs or gallops. Lungs--coarse breath sounds bilaterally with wheezes. No respiratory distress, no accessory muscle use. Abdomen--normal bowel sounds and soft. Nontender. Nondistended, no hernias or masses, no organomegaly. Extremities--no cyanosis or clubbing. No edema. Dermatologic--normal skin turgor, normal color, no abnormal lymph nodes, no rash. Neurologic--cranial nerves II through XII grossly intact. Rheumatologic--normal range of motion. Psychiatric--normal affect. Results & Data Results & Data ([facility]) Vital Signs (Past 12 Hours) Vital Signs Temp Pulse Pulse Resp BP Pulse Ox 03/31/22 15:04 36.8 C 80 20 138/52 L 97 03/31/22 14:53 84 03/31/22 10:30 80 20 94 03/31/22 07:36 89 03/31/22 07:16 36.5 C 65 17 119/47 L 100 03/31/22 07:02 62 20 97 PG Care Time/CCT Total # of Minutes Spent Total Time Spent with Patient: Total time spent is greater than 50% in coordination of care (as documented) at patient's floor/unit and/or counseling patient: Coding Diagnoses Acute on chronic respiratory failure with hypoxia and hypercapnia J96.21; J96.22 Elevated troponin I level R77.8 Pneumonia J18.9 Acute exacerbation of chronic obstructive pulmonary disease J44.1 Hypertension I10 CAD (coronary artery disease) I25.10 Bilateral pleural effusion J90 GERD (gastroesophageal reflux disease) K21.9 Tobacco use disorder F17.200 Anxiety F41.9
[2022-03-31] MEDS ORDERED: ALBUT/IPRATROP 3MG/0.5MG NEB 3 ML VIAL NEB PRN (21:00)
[2022-03-31] MEDS: ASPIRIN 81 MG ECTAB PO SCH (21:06)
[2022-03-31] MEDS: ATORVASTATIN 40 MG TAB PO SCH (21:06)
[2022-04-01 06:27] LABS: Hematocrit (blood only) 28.3 % (42-52); Mean Corpuscular Hemoglobin 27.3 pg (25-34); Mean Corpuscular Hgb Conc 28.3 g/dL (32-36); Mean Corpuscular Volume 96.6 fL (80-100); Mean Platelet Volume 9.4 fL (7.4-10.4); Platelet Count 482 K/uL (130-400); RDW Standard Deviation 52.6 fL (36.4-46.3); Red Blood Count 2.93 M/uL (4.7-6.1); White Blood Count 11.21 K/uL (4.8-10.8)
[2022-04-01 06:38] LABS: Eosinophils # (auto) 0.14 K/uL (0-0.5); Eosinophils % (auto) 1.2 %; Hypochromasia Present; Immature Granulocytes # (auto) 0.02 K/uL (0.00-0.02); Immature Granulocytes % (auto) 0.2 %; Lymphocytes # (auto) 1.04 K/uL (1.2-3.4); Lymphocytes % (auto) 9.3 %; Monocytes # (auto) 0.95 K/uL (0.11-0.59); Monocytes % (auto) 8.5 %; Neutrophils # (auto) 9.06 K/uL (1.4-6.5); Neutrophils % (auto) 80.8 %; Ovalocytes 1+; Polychromasia 1+
[2022-04-01 06:53] LABS: Albumin Level 3.4 gm/dl (3.4-5.0); BUN Creatinine Ratio 28.3 (10-20); Blood Urea Nitrogen 28 mg/dl (6-23); Calcium 9.8 mg/dl (8.5-10.1); Carbon Dioxide > 45 mmol/L (21-32); Chloride 88 mmol/L (98-107); Creatinine Clr Calc Pharmacy 63.5 ml/min; Est GFR (African American) 84.2 ml/min; Est GFR (Non-African American) 72.6 ml/min; Glucose 126 mg/dl (70-99(Fasting)); Magnesium 2.5 mg/dl (1.7-2.4); Phosphorus 3.5 mg/dl (2.5-4.9); Potassium 4.1 mmol/L (3.5-5.1); Sodium 138 mmol/L (136-145)
[2022-04-01] MEDS: BUDESONIDE 0.5 MG/2 ML VIAL (PULMICORT) NEB SCH ×2 (07:00→19:24)
[2022-04-01] MEDS: ALBUT/IPRATROP 3MG/0.5MG NEB 3 ML VIAL NEB SCH ×2 (07:01→19:25)
[2022-04-01] MEDS: AMOXICILLIN/CLAVULANATE 875 MG TAB PO SCH ×2 (09:14→17:36)
[2022-04-01] MEDS: guaiFENesin 600 MG TABCR PO SCH ×2 (09:14→20:56)
[2022-04-01] MEDS: PANTOprazole 40 MG TAB PO SCH ×2 (09:14→20:56)
[2022-04-01] MEDS: POTASSIUM CHLORIDE CRTAB 20 MEQ TABCR PO SCH ×2 (09:14→20:57)
[2022-04-01] MEDS: predniSONE 20 MG TAB PO SCH (09:15)
[2022-04-01] MEDS: METOPROLOL TARTRATE 25 MG TAB PO SCH ×2 (09:15→20:56)
[2022-04-01] MEDS: SPIRONOLACTONE 25 MG TAB PO SCH ×2 (09:15→20:57)
[2022-04-01] MEDS: CALCIUM 600MG + VIT D 400 IU TAB PO SCH ×2 (09:15→20:55)
[2022-04-01] MEDS: ESCITALOPRAM OXALATE 10 MG TAB PO SCH (09:15)
[2022-04-01] MEDS: DOCUSATE SODIUM 100 MG CAP PO SCH ×2 (09:16→20:55)
[2022-04-01] MEDS: FERROUS SULFATE 325 MG TAB PO SCH ×2 (09:16→20:56)
[2022-04-01] MEDS: MULTIVITAMIN TAB PO SCH (09:16)
[2022-04-01] MEDS: MAGNESIUM OXIDE 400 MG TAB PO SCH (09:16)
[2022-04-01] MEDS: NICOTINE 21 MG/24 HR TDSY TD SCH (09:17)
[2022-04-01] MEDS: HEPARIN SOD 5,000 UNIT/0.5 ML VIAL SQ SCH ×2 (09:17→20:56)
[2022-04-01] MEDS: FLUTICASONE FUROATE 100MCG 14 PUFFS/INHALER INH SCH (09:17)
[2022-04-01] MEDS: UMECLIDINIUM/VILANTEROL 62.5/25MCG 7 PUFFS/INHALER INH SCH (09:17)
[2022-04-01] MEDS: ALPRAZolam 0.5 MG TABLET PO PRN ×2 (12:00→19:19)
[2022-04-01] MEDS: ACETYLCYSTEINE 600 MG CAP PO SCH ×2 (13:22→20:54)
--- NOTE | 2022-04-01 18:23 | Hospitalist Progress Note ---
Date of Service April 01, 2022 Assessment & Plan (1) Acute on chronic respiratory failure with hypoxia and hypercapnia: Plan: Acute on chronic hypoxic respiratory failure secondary to COPD exacerbation Patient is active smoker Currently patient is on prednisone [id number] DuoNeb as well as as needed DuoNeb as well as Augmentin no evidence of pulmonary infiltrate on imaging studies ABG yesterday revealed pH of 7.3 PCO2 of 88 Currently oxygen requirement in nonambulatory position is at the baseline patient required 2 L of oxygen to keep the sats around 97% however patient desats easily with ambulation drops as much as in low 80s required around 6 L oxygen to keep sats above 90 Increase DuoNeb [id number] every 6 hours patient has some mild wheezing on exam Add incentive spirometer Add oral mucolytic agent The patient is active smoker, currently on nicotine patch Patient suffers from extreme anxiety which could have contributed to her shortness of breath I added Xanax Chest x-ray showed possible pulmonary congestion however the patient has a BNP of 276 which goes against CHF, moreover patient had a recent echocardiogram which was unremarkable (2) Acute exacerbation of chronic obstructive pulmonary disease: Plan: See above (3) Tobacco use disorder: Plan: Tobacco cessation counseling (4) Anxiety: Plan: Continue escitalopram 10 mg daily Add Xanax as needed (5) Alkalosis: Plan: Patient has developed contraction alkalosis most likely because he was started on Bumex at the ER there is no evidence of CHF exacerbation, I will stop Bumex I will check BMP to (6) Elevated troponin I level: Plan: The patient has very mildly elevated troponin of 22.2 most likely secondary to CHF exacerbation (7) Pneumonia: Plan: No evidence of pneumonia on imaging studies (8) Hypertension: Plan: Fair control continue home regiment (9) CAD (coronary artery disease): Plan: No chest pain continue home regimen (10) Bilateral pleural effusion: Plan: It is a small and chronic as per radiology report (11) GERD (gastroesophageal reflux disease): Plan: Continue pantoprazole 40 mg p.o. twice daily Admission and Anticipated Discharge Date Admission Date: March 31, 2022 Subjective Patient sats is about 97% on 3 L oxygen however she desats significantly with a mbulation and requires more than 6 L to keep sats above 90% and sats dropped to as much is 82% Results & Data Results & Data ([facility]) Vital Signs (Past 12 Hours) Vital Signs Temp Pulse Pulse Resp BP Pulse Ox 04/01/22 15:37 36.8 C 72 20 129/69 96 04/01/22 15:27 66 04/01/22 08:04 36.6 C 90 20 122/38 L 91 04/01/22 08:00 84 04/01/22 07:04 76 18 96 PG Care Time/CCT Total # of Minutes Spent Total Time Spent with Patient: Total time spent is greater than 50% in coordination of care (as documented) at patient's floor/unit and/or counseling patient: Coding Level of Care Code 41982 Subseq Hosp Care Lvl 3 Diagnoses Acute on chronic respiratory failure with hypoxia and hypercapnia J96.21; J96.22 Elevated troponin I level R77.8 Pneumonia J18.9 Acute exacerbation of chronic obstructive pulmonary disease J44.1 Hypertension I10 CAD (coronary artery disease) I25.10 Bilateral pleural effusion J90 GERD (gastroesophageal reflux disease) K21.9 Tobacco use disorder F17.200 Anxiety F41.9 Alkalosis E87.3
[2022-04-01] MEDS: ASPIRIN 81 MG ECTAB PO SCH (20:55)
[2022-04-01] MEDS: ATORVASTATIN 40 MG TAB PO SCH (20:55)
--- NOTE | 2022-04-01 22:56 | Electrocardiogram Report ---
Test Reason : Blood Pressure : / mmHG Vent. Rate : 082 BPM Atrial Rate : 082 BPM P-R Int : 182 ms QRS Dur : 138 ms QT Int : 394 ms P-R-T Axes : 076 -48 069 degrees QTc Int : 460 ms Sinus rhythm with frequent Premature supraventricular complexes Left axis deviation Non-specific intra-ventricular conduction block Cannot rule out Septal infarct (cited on or before 18-JUN-2021) Abnormal ECG When compared with ECG of 22-MAR-2022 10:15, Premature supraventricular complexes are now Present Confirmed by Isidoro Molina ([id number]) on 04/01/2022 10:56:21 PM Referred By: REFERRED SELF Confirmed By:Isidoro Molina
[2022-04-02] MEDS: ALBUT/IPRATROP 3MG/0.5MG NEB 3 ML VIAL NEB SCH ×4 (00:10→20:09)
[2022-04-02] MEDS: BUDESONIDE 0.5 MG/2 ML VIAL (PULMICORT) NEB SCH ×2 (06:58→20:10)
[2022-04-02 07:43] LABS: Eosinophils # (auto) 0.17 K/uL (0-0.5); Eosinophils % (auto) 1.7 %; Hematocrit (blood only) 28.4 % (42-52); Immature Granulocytes # (auto) 0.01 K/uL (0.00-0.02); Immature Granulocytes % (auto) 0.1 %; Lymphocytes # (auto) 1.11 K/uL (1.2-3.4); Lymphocytes % (auto) 11.1 %; Mean Corpuscular Hemoglobin 26.9 pg (25-34); Mean Corpuscular Hgb Conc 28.2 g/dL (32-36); Mean Corpuscular Volume 95.6 fL (80-100); Mean Platelet Volume 9.2 fL (7.4-10.4); Neutrophils # (auto) 8.12 K/uL (1.4-6.5); Neutrophils % (auto) 81.1 %; Platelet Count 425 K/uL (130-400); RDW Standard Deviation 51.5 fL (36.4-46.3); Red Blood Count 2.97 M/uL (4.7-6.1); White Blood Count 10.01 K/uL (4.8-10.8)
[2022-04-02 07:47] LABS: Albumin Level 3.4 gm/dl (3.4-5.0); BUN Creatinine Ratio 30.1 (10-20); Blood Urea Nitrogen 28 mg/dl (6-23); Calcium 9.6 mg/dl (8.5-10.1); Carbon Dioxide > 45 mmol/L (21-32); Chloride 87 mmol/L (98-107); Creatinine Clr Calc Pharmacy 67.6 ml/min; Est GFR (African American) 90.8 ml/min; Est GFR (Non-African American) 78.4 ml/min; Glucose 160 mg/dl (70-99(Fasting)); Magnesium 2.4 mg/dl (1.7-2.4); Phosphorus 2.9 mg/dl (2.5-4.9); Potassium 4.6 mmol/L (3.5-5.1); Sodium 134 mmol/L (136-145)
[2022-04-02] MEDS: UMECLIDINIUM/VILANTEROL 62.5/25MCG 7 PUFFS/INHALER INH SCH (08:24)
[2022-04-02] MEDS: FLUTICASONE FUROATE 100MCG 14 PUFFS/INHALER INH SCH (08:25)
[2022-04-02] MEDS: DOCUSATE SODIUM 100 MG CAP PO SCH ×2 (08:25→21:26)
[2022-04-02] MEDS: ACETYLCYSTEINE 600 MG CAP PO SCH ×2 (08:25→21:25)
[2022-04-02] MEDS: POTASSIUM CHLORIDE CRTAB 20 MEQ TABCR PO SCH ×2 (08:25→21:25)
[2022-04-02] MEDS: SPIRONOLACTONE 25 MG TAB PO SCH ×2 (08:25→21:27)
[2022-04-02] MEDS: METOPROLOL TARTRATE 25 MG TAB PO SCH ×2 (08:25→21:28)
[2022-04-02] MEDS: predniSONE 20 MG TAB PO SCH (08:25)
[2022-04-02] MEDS: MULTIVITAMIN TAB PO SCH (08:26)
[2022-04-02] MEDS: CALCIUM 600MG + VIT D 400 IU TAB PO SCH ×2 (08:26→21:27)
[2022-04-02] MEDS: guaiFENesin 600 MG TABCR PO SCH ×2 (08:26→21:27)
[2022-04-02] MEDS: MAGNESIUM OXIDE 400 MG TAB PO SCH (08:26)
[2022-04-02] MEDS: PANTOprazole 40 MG TAB PO SCH ×2 (08:26→21:26)
[2022-04-02] MEDS: FERROUS SULFATE 325 MG TAB PO SCH ×2 (08:26→21:28)
[2022-04-02] MEDS: AMOXICILLIN/CLAVULANATE 875 MG TAB PO SCH (08:26)
[2022-04-02] MEDS: ESCITALOPRAM OXALATE 10 MG TAB PO SCH (08:26)
[2022-04-02] MEDS: HEPARIN SOD 5,000 UNIT/0.5 ML VIAL SQ SCH ×2 (08:27→21:27)
[2022-04-02] MEDS: NICOTINE 21 MG/24 HR TDSY TD SCH (08:27)
[2022-04-02] MEDS: ALPRAZolam 0.5 MG TABLET PO PRN (09:12)
[2022-04-02] MEDS: FAMOTIDINE 20 MG TAB PO SCH (11:29)
[2022-04-02] MEDS: AZITHROMYCIN 250 MG TAB PO SCH (11:29)
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
[2022-04-02 15:20] LABS: Base Excess VBG 16.8 mEq/L; pH VBG 7.29 (7.36-7.41)
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
[2022-04-02] MEDS: ATORVASTATIN 40 MG TAB PO SCH (21:26)
[2022-04-02] MEDS: ASPIRIN 81 MG ECTAB PO SCH (21:26)
[2022-04-03] MEDS: ALPRAZolam 0.5 MG TABLET PO PRN ×2 (00:11→10:49)
[2022-04-03] MEDS: ALBUT/IPRATROP 3MG/0.5MG NEB 3 ML VIAL NEB SCH ×3 (00:24→12:56)
[2022-04-03] MEDS ORDERED: MELATONIN 3 MG TAB PO ONE (03:40)
[2022-04-03 06:31] LABS: Hematocrit (blood only) 25.3 % (42-52); Hemoglobin 7.2 g/dL (14.0-18.0); Mean Corpuscular Hemoglobin 27.2 pg (25-34); Mean Corpuscular Hgb Conc 28.5 g/dL (32-36); Mean Corpuscular Volume 95.5 fL (80-100); Mean Platelet Volume 9.3 fL (7.4-10.4); Platelet Count 383 K/uL (130-400); RDW Coefficient of Variation 14.5 % (11.5-14.5); RDW Standard Deviation 50.1 fL (36.4-46.3); Red Blood Count 2.65 M/uL (4.7-6.1); White Blood Count 9.35 K/uL (4.8-10.8)
[2022-04-03] MEDS: BUDESONIDE 0.5 MG/2 ML VIAL (PULMICORT) NEB SCH (07:19)
[2022-04-03] MEDS: CALCIUM 600MG + VIT D 400 IU TAB PO SCH (08:35)
[2022-04-03] MEDS: UMECLIDINIUM/VILANTEROL 62.5/25MCG 7 PUFFS/INHALER INH SCH (08:35)
[2022-04-03] MEDS: ACETYLCYSTEINE 600 MG CAP PO SCH (08:35)
[2022-04-03] MEDS: DOCUSATE SODIUM 100 MG CAP PO SCH (08:35)
[2022-04-03] MEDS: FERROUS SULFATE 325 MG TAB PO SCH (08:35)
[2022-04-03] MEDS: FAMOTIDINE 20 MG TAB PO SCH (08:35)
[2022-04-03] MEDS: predniSONE 20 MG TAB PO SCH (08:35)
[2022-04-03] MEDS: AZITHROMYCIN 250 MG TAB PO SCH (08:35)
[2022-04-03] MEDS: ESCITALOPRAM OXALATE 10 MG TAB PO SCH (08:35)
[2022-04-03] MEDS: METOPROLOL TARTRATE 25 MG TAB PO SCH (08:36)
[2022-04-03] MEDS: MAGNESIUM OXIDE 400 MG TAB PO SCH (08:36)
[2022-04-03] MEDS: PANTOprazole 40 MG TAB PO SCH (08:36)
[2022-04-03] MEDS: SPIRONOLACTONE 25 MG TAB PO SCH (08:36)
[2022-04-03] MEDS: guaiFENesin 600 MG TABCR PO SCH (08:36)
[2022-04-03] MEDS: HEPARIN SOD 5,000 UNIT/0.5 ML VIAL SQ SCH (08:36)
[2022-04-03] MEDS: NICOTINE 21 MG/24 HR TDSY TD SCH (08:36)
[2022-04-03] MEDS: FLUTICASONE FUROATE 100MCG 14 PUFFS/INHALER INH SCH (08:36)
[2022-04-03] MEDS: POTASSIUM CHLORIDE CRTAB 20 MEQ TABCR PO SCH (08:36)
[2022-04-03] MEDS: MULTIVITAMIN TAB PO SCH (08:36)
[2022-04-03] MEDS ORDERED: IRON SUCROSE 300 MG in SODIUM CHLORIDE 0.9% 250 ML IV ONE ×2 (13:26→14:15)
--- NOTE | 2022-04-03 13:40 | Pulmonology Progress Note ---
Date of Service April 03, 2022 Assessment & Plan (1) Acute on chronic respiratory failure: (2) Acute on chronic respiratory failure with hypoxia and hypercapnia: (3) COPD with emphysema: (4) Anemia: Anemia type: unspecified type Qualified Code(s): D64.9 - Anemia, unspecified (5) Bilateral pleural effusion: Plan: Patient has advanced lung disease with a possible neuromuscular component. He has an AVAPS unit at home and he is compliant with this therapy. I did review his compliance data from January to February. I do not have the more recent compliance data from the last 30 days. He continues to smoke cigarettes at home. He has worsening acute on chronic hypercapnic respiratory failure that is likely multifactorial from COPD and possibly neuromuscular component. An in lab polysomnography would be ideal to evaluate for sleep disordered breathing such as central sleep apnea and determine the ideal noninvasive ventilator settings. Continue BiPAP with a backup respiratory rate of 18 and a targeted minute ventilation of 7 -8 L/min while inpatient. Respiratory communication order placed. Continue supplemental oxygen to target saturations of 88 to 92%. Recommend avoiding hyperoxia. Continue ICS/LABA/LAMA. Continue with a short course of prednisone. Consider outpatient initiation of chronic azithromycin therapy for the immunomodulatory effects. Additionally, his anemia is likely playing a role in his symptoms as well. Recommend considering the addition of IV iron. Case discussed with hospitalist. Palliative care measures and hospice should be considered as well given his advanced disease. Thank you for the consultation. Please call with questions. Pulmonary will sign off. Admission and Anticipated Discharge Date Admission Date: March 31, 2022 Subjective Patient seen this afternoon. He is resting comfortably in bed. Currently has a nasal cannula in place. Denies any shortness of breath, chest pain, fevers or chills. He did not wear his BiPAP for very long last night. Respiratory therapy reports that he wore his BiPAP for approximately 2 hours. Patient is asking when he can go home. Hospitalist plans to discharge the patient today. Review of Systems Review of Systems: All systems reviewed & are unremarkable except as noted in HPI & below Physical Exam Physical Exam: Constitutional: Patient appears tired. No apparent distress. Conversational dyspnea present. Eyes: Pupils are equal round and reactive to light. Conjunctivae are normal. Anicteric sclera. Ears nose, mouth and throat: Nasal cannula tubing in place in the nares. No deformity seen. Neck: Trachea is midline. Visual inspection is normal. Respiratory: Diminished lung sounds bilaterally with a prolonged phase of exhalation. No wheezes. Crackles noted in the lower lobes. Diminished more significantly on the left than the right. Cardiovascular: Regular rate and rhythm. No murmurs. No edema. Gastrointestinal: Normal bowel sounds, soft, nontender and nondistended. No hepatosplenomegaly noted. Musculoskeletal: No cyanosis. Patient is able to move all extremities. Skin: No rashes, warm dry and intact. Neurologic: No obvious focal neurological deficits seen. Psychiatric: Alert and oriented x3 with a euthymic affect. Results & Data Results & Data ([facility]) Vital Signs (Past 12 Hours) Vital Signs Temp Pulse Resp BP Pulse Ox 04/03/22 12:56 77 21 92 04/03/22 07:36 36.5 C 71 18 141/51 H 91 04/03/22 07:20 72 18 90 04/03/22 04:21 65 19 99 PG Care Time/CCT Total # of Minutes Spent Total Time Spent with Patient: Total time spent is greater than 50% in coordination of care (as documented) at patient's floor/unit and/or counseling patient: Coding Level of Care Code 04316 Subseq Hosp Care Lvl 2 Diagnoses Acute on chronic respiratory failure J96.20 Acute on chronic respiratory failure with hypoxia and hypercapnia J96.21; J96.22 COPD with emphysema J43.9 Anemia D64.9 Anemia type: unspecified type Bilateral pleural effusion J90
--- NOTE | 2022-04-03 15:23 | Discharge Summary ---
Date of Service April 03, 2022 Admission HPI Per Admitting Provider The patient is a 76-year-old male with a past medical history including ongoing tobacco use disorder, acute on chronic respiratory failure, COPD exacerbation, anemia, anxiety, chronic diastolic CHF, CAD, hypertension and hyperlipidemia. He presents to the emergency department as noted above. His pulse ox when initially seen by EMS on his porch deck was reportedly 39%. Principal Diagnosis COPD exacerbation Discharge Exam Constitutional well developed; + not well nourished and no acute distress Respiratory + prolonged expiratory phase; does not use accessory muscles and no audible wheezes Auscultation: + diminished lung sounds (bibasal) and + crackles (bibasal, clears with coughing); no wheezes Cardiovascular RRR, no murmur, no edema Gastrointestinal (Abdomen) normal bowel sounds, soft, nontender, no hepatosplenomegaly Psychiatric A+Ox3, euthymic affect Discharge Data Allergies Allergy/AdvReac Type Severity Reaction Status Date / Time No Known Drug Allergies Allergy NKDA Verified 03/27/22 14:23 Consultations 03/31/22 01:36 ED Decision to Admit Stat 04/02/22 10:56 Consult Pulmonology Routine Hospital Course (1) Acute on chronic respiratory failure with hypoxia and hypercapnia: Richard Lobo is a 76 year old male admitted to [facility] from March 31 to 2021 due to shortness of breath. He was diagnosed with acute on chronic hypoxic hypercapnic respiratory failure due to COPD exacerbation. This was treated using steroids, nebulizers and BiPAP. Suspect recently exacerbated due to continued smoking at home and noncompliance with medications. He was provided with a tapering prednisone course on discharge and was provided with a nebulizer and DuoNebs to continue at home. He was heavily advised to stop smoking and provided with resources to help with this. If he continues to smoke is likely risk of readmission in the next 30 days is very high. He was also provided with prescription for azithromycin chronically 3 times a week to reduce exacerbations. Suspect he is having hypercapnia with his usual 5 LPM of oxygen as he is only required 3-4 LPM here at rest here. He was advised to aim his oxygen saturations 88 to 92%. He should continue on his AVAPS-AE at night and while napping to further avoid hypercapnia and subsequent confusion. He was also noted to have an iron deficiency anemia during his recent hospita lization with an undetectable iron level. No intravenous iron was given on that hospitalization therefore he was given 300mg IV Venofer during his current hospitalization. He is calculated based on his weight and current hemoglobin to be approximately 1200mg elemental iron deficient. Recommend a further Venofer 300mg weekly for three weeks to replenish stores as an outpatient. He would not be a candidate for EGD or colonoscopy unless his COPD dramatically improves. (2) Acute exacerbation of chronic obstructive pulmonary disease: (3) Tobacco use disorder: (4) Anxiety: (5) Alkalosis: (6) Elevated troponin I level: (7) Pneumonia: (8) Hypertension: (9) CAD (coronary artery disease): (10) Bilateral pleural effusion: (11) GERD (gastroesophageal reflux disease): Total Time Total Time Spent Total Time Spent (In Minutes): 45 Discharge Plan Discharge Items Patient Disposition: Home - Home Health Services Reason For Visit: ACUTE ON CHRONIC RESP FAIL W/ HYPOXIA / HYPERCAPNE Discharge Diagnosis: COPD exacerbation Activity: Resume your previous activity Non-emergency contact: Primary Care Provider Call non-emergency contact if: you have any medication questions and your symptoms worsen Follow-up/Referrals: Robert Owen MD [Primary Care Provider] - 04/09/22 1:30 pm Diet: Heart Healthy Addtl Attending Provider Instructions: You were admitted to [facility] from March 31 to 2021 due to shortness of breath. You were diagnosed with acute hypoxic (low oxygen) hypercapnic (high carbon dioxide) respiratory failure due to COPD. This was treated using steroids, nebulizers and BiPAP. Please continue prednisone as prescribed below. We have also sent a prescription for a nebulizer and nebulizer treatments. Recommend using your nebulizer regularly every 6 hours for the next 2 to 3 days while you recover from this exacerbation. Then use the nebulizers as needed for shortness of breath, wheezing or cough. Please continue your routine maintenance inhalers as previously prescribed. Recommend also continuing azithromycin 3 times a week on Wednesday, Wednesday, Wednesday to help reduce exacerbations. Continue to aim your oxygen saturation levels 88 to 92%. You are requiring only 4 L/min O2 at rest on discharge therefore recommending continuing this currently. It is imperative you stop smoking otherwise the likelihood is you will end up back in hospital within the next month. Please call 3-272-DLOX-NOW ( ) for resources to help quit smoking. You also noted to have an iron deficiency anemia during your recent hospitalization with an undetectable iron level. You received Venofer (intravenous iron) during this admission. Recommend following up with your primary care physician to arrange further intravenous iron if needed. Pending Studies at Discharge: No Stand-Alone Forms: My [facility], Smoking Cessation Medications and DC Order Prescriptions: New azithromycin 250 mg Tablet See Rx Instructions .ROUTE .COMPLEX Qty: 12 RF: 0 ipratropium-albuterol 0.5 mg-3 mg(2.5 mg base)/3 mL solution for nebulization 3 ml inhalation Q6H PRN (Reason: wheezing) Qty: 180 RF: 0 prednisone 5 mg tablet See Rx Instructions .ROUTE .COMPLEX Qty: 36 RF: 0 Continued (DME) Oxygen Home Liters Per Minute See Rx Instructions .Route Qty: 1 RF: 0 docusate sodium 100 mg capsule 100 mg PO BID RF: 0 nicotine (polacrilex) 2 mg gum 2 mg buccal Q2H PRN (Reason: nicotine cravings) Qty: 120 RF: 3 escitalopram oxalate 10 mg tablet 10 mg PO DAILY RF: 0 potassium chloride 20 mEq tablet extended release 20 meq PO BID RF: 0 magnesium 250 mg tablet 250 mg PO DAILY RF: 0 atorvastatin 80 mg tablet 80 mg PO QPM RF: 0 multivitamin [Multiple Vitamins] Tablet 1 tab PO DAILY RF: 0 ferrous sulfate 325 mg (65 mg iron) tablet 65 mg PO BID RF: 0 acetaminophen 325 mg capsule 650 mg PO QID PRN (Reason: Pain) RF: 0 spironolactone 25 mg tablet 25 mg PO BID 30 Days Qty: 60 RF: 3 bumetanide 2 mg tablet See Rx Instructions PO BID RF: 0 Trelegy Ellipta 100-62.5-25 mcg blister with device 1 inh inhalation DAILY Qty: 3 RF: 1 albuterol sulfate 90 mcg/actuation HFA aerosol inhaler 2 puff inhalation Q6H PRN (Reason: Shortness Of Breath Or Wheezing) Qty: 18 RF: 3 (DME) Flutter Valve Device See Rx Instructions .MEDSUPPLY Qty: 1 RF: 0 azelastine 137 mcg (0.1 %) aerosol,spray 2 spray intranasal DAILY Qty: 30 RF: 3 aspirin [Adult Low Dose Aspirin] 81 mg tablet,delayed release (DR/EC) 81 mg PO QPM RF: 0 metolazone 2.5 mg Tablet 2.5 mg PO UD RF: 0 calcium 300 mg Tablet,Chewable 600 mg PO BID RF: 0 metoprolol tartrate 25 mg tablet 25 mg PO BID RF: 0 pantoprazole 40 mg tablet,delayed release (DR/EC) 40 mg PO BID 30 Days Qty: 60 RF: 0 Discontinued prednisone 10 mg tablet See Rx Instructions .ROUTE .COMPLEX Qty: 28 RF: 0 Discharge Orders: Discharge Order (Routine); Ordered 04/03/22 Ordered By: Miguel Tello Admission Data Admit Date/Time: 03/31/22 03:19 Attending Provider: Miguel Tello Admit Provider: Liang Loomsi Primary Care Provider: Robert Owen Other Providers: Liang Loomis ; Zoltan Bergman ; [facility] Other Interventions: Discharge Summary Assessment (RN) Last Done: 04/03/22 16:27 Coding Level of Care Code D/C DAY MANAGEMENT >30 MINS Diagnoses Acute on chronic respiratory failure with hypoxia and hypercapnia J96.21; J96.22 Acute exacerbation of chronic obstructive pulmonary disease J44.1 Tobacco use disorder F17.200 Anxiety F41.9 Alkalosis E87.3 Elevated troponin I level R77.8 Pneumonia J18.9 Hypertension I10 CAD (coronary artery disease) I25.10 Bilateral pleural effusion J90 GERD (gastroesophageal reflux disease) K21.9
== END 2022-04-03 17:42 | disposition home health service (06) | DRG 189 ==
LOC: ED 00:14 → 2E 03:19 → SUATTDRO 03:19 → 2E 04:17 → 3W 04-02 14:07
DX: I11.0 Hypertensive heart disease with heart failure; K21.9 Gastro-esophageal reflux disease without esophagitis; Z79.82 Long term (current) use of aspirin; J96.22 Acute and chronic respiratory failure with hypercapnia; I24.8 Other forms of acute ischemic heart disease; R79.89 Other specified abnormal findings of blood chemistry; J96.21 Acute and chronic respiratory failure with hypoxia; I50.32 Chronic diastolic (congestive) heart failure; E87.3 Alkalosis; Z91.14 Patient's other noncompliance with medication regimen; J44.1 Chronic obstructive pulmonary disease with (acute) exacerbation; D50.9 Iron deficiency anemia, unspecified; I25.10 Atherosclerotic heart disease of native coronary artery without angina pectoris; F17.210 Nicotine dependence, cigarettes, uncomplicated; J90 Pleural effusion, not elsewhere classified; Z99.81 Dependence on supplemental oxygen

== ENCOUNTER 2022-04-17 15:10 | Inpatient (IN) ==
[2022-04-17] MEDS ORDERED: ALBUTEROL 0.083% NEBU SOLN 3 ML VIAL INH STA (15:16)
[2022-04-17] MEDS ORDERED: methylPREDNISolone 125 MG/2 ML VIAL IV STA (15:16)
[2022-04-17 15:33] LABS: Basophils # (auto) 0.02 K/uL (0-0.2); Basophils % (auto) 0.1 %; Eosinophils # (auto) 0.01 K/uL (0-0.5); Eosinophils % (auto) 0.1 %; Hematocrit (blood only) 30.2 % (42-52); Hemoglobin 9.3 g/dL (14.0-18.0); Immature Granulocytes # (auto) 0.03 K/uL (0.00-0.02); Immature Granulocytes % (auto) 0.2 %; Lymphocytes # (auto) 0.55 K/uL (1.2-3.4); Lymphocytes % (auto) 3.5 %; Mean Corpuscular Hemoglobin 29.3 pg (25-34); Mean Corpuscular Hgb Conc 30.8 g/dL (32-36); Mean Corpuscular Volume 95.3 fL (80-100); Mean Platelet Volume 10.2 fL (7.4-10.4); Monocytes # (auto) 0.82 K/uL (0.11-0.59); Monocytes % (auto) 5.2 %; Neutrophils # (auto) 14.25 K/uL (1.4-6.5); Neutrophils % (auto) 90.9 %; Platelet Count 326 K/uL (130-400); RDW Coefficient of Variation 16.2 % (11.5-14.5); RDW Standard Deviation 56.7 fL (36.4-46.3); Red Blood Count 3.17 M/uL (4.7-6.1); White Blood Count 15.68 K/uL (4.8-10.8)
--- NOTE | 2022-04-17 15:58 | XRay Report ---
XR chest 1V portable CLINICAL HISTORY: Dyspnea. COMPARISON STUDY: 04/14/2022 TECHNIQUE: 1 view of the chest FINDINGS: Single frontal view of the chest demonstrates the heart to again be enlarged. Chronic prominence of i nterstitial markings again seen at the lung bases. No definite confluent alveolar opacities are ident ified. There is again suspicion of bilateral pleural effusions, left greater than right. Follow-up PA and lateral radiographs are again recommended for further evaluation. There is no evidence for vascu lar congestion. There is no acute osseous pathology. IMPRESSION: 1. Chronic prominence of the interstitial markings again seen at the lung bases with suspicion of reina ateral pleural effusions, left greater than right. PA and lateral radiographs are again recommended f or further evaluation. ACT 112: Negative or not required by law. Electronically signed by: Waldemar Gifford M.D. 04/17/2022 3:56 PM
[2022-04-17 16:01] LABS: Albumin Globulin Ratio 1.6 (0.9-2); Albumin Level 3.9 gm/dl (3.4-5.0); BUN Creatinine Ratio 26.4 (10-20); Bilirubin,Total 0.4 mg/dl (0.2-1.0); Calcium 9.7 mg/dl (8.5-10.1); Creatinine Clr Calc Pharmacy 54.8 ml/min; Est GFR (African American) 66.1 ml/min; Globulin 2.5 gm/dl (2.5-4.0); Magnesium 2.3 mg/dl (1.7-2.4); Potassium 5.1 mmol/L (3.5-5.1); Total Protein 6.4 gm/dl (6.0-8.3)
[2022-04-17 16:06] LABS: Appearance Urine Clear (Clear); Bilirubin Urine Negative (Negative); Blood Urine Negative (Negative); Color Urine Yellow; Glucose Urine UA Negative (Negative); Ketones Urine Trace (Negative); Leukocyte Esterase Urine Negative (Negative); Nitrite Urine Negative (Negative); Protein Urine Negative (Negative); Specific Gravity Urine 1.013 (1.000-1.030); Urobilinogen Urine Negative (Negative)
--- NOTE | 2022-04-17 16:06 | Electrocardiogram Report ---
Test Reason : Blood Pressure : / mmHG Vent. Rate : 098 BPM Atrial Rate : 098 BPM P-R Int : 224 ms QRS Dur : 120 ms QT Int : 350 ms P-R-T Axes : 072 -35 020 degrees QTc Int : 446 ms Sinus rhythm with 1st degree A-V block Left axis deviation Left ventricular hypertrophy with QRS widening Abnormal ECG When compared with ECG of 14-APR-2022 16:56, No significant change was found Confirmed by Mj Zimmerman ([id number]) on 04/17/2022 4:06:20 PM Referred By: Confirmed By:Mj Zimmerman
[2022-04-17] MEDS ORDERED: PIPERACILL/TAZOBAC CONSULT ACTIVE PRN (16:40)
[2022-04-17] MEDS ORDERED: PIPERACILLIN/TAZOBACTAM 4.5 GM/120 ML BAG IV ONE (16:40)
[2022-04-17] MEDS ORDERED: VANCOMYCIN HCL 1,750 MG in SODIUM CHLORIDE 0.9% 500 ML IV ONE (16:40)
[2022-04-17] MEDS ORDERED: VANCOMYCIN CONSULT ACTIVE PRN (16:40)
--- NOTE | 2022-04-17 17:19 | XRay Report ---
XR chest 2V PA/lateral CLINICAL HISTORY: fever, bilateral pl effusion COMPARISON STUDY: Chest CT March 22, 2022. Chest radiograph April 17, 2022 at 3:50 PM. 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 Cardiomegaly is unchanged. Mild pulmonary ed mariela. Moderate left and small right pleural effusions are present. Left pleural effusion has increased in size since exam of April 14, 2022. Associated bibasilar opacities have increased. IMPRESSION: 1. Moderate left and small right pleural effusions with associated bibasilar opacities. The left pleu ral effusion has increased in size since chest radiograph of March 31, 2022. 2. Mild pulmonary edema. Cardiomegaly. ACT 112: Negative or not required by law. Electronically signed by: Anjum Chaudhry M.D. 04/17/2022 5:17 PM
--- NOTE | 2022-04-17 17:52 | History & Physical Report ---
Date of Service April 17, 2022 Assessment & Plan (1) Acute on chronic respiratory failure with hypoxia and hypercapnia: Plan: Secondary to taking himself off oxygen this morning. Low suspicion of acute COPD exacerbation but suspect it just took a long time of recover. Concerning leukocytosis and fever for acute bacterial pneumonia although his CXR remains somewhat stable. Flu, RSV and COVID PCR negative. Procalcitonin pending Agree with Zosyn and vancomycin to cover for pneumonia Flutter valve Incentive spirometry Aspiration precautions BiPAP HS and while napping. Otherwise aim O2 sats 88-92% to avoid worsening CO2 retention. (2) Bacterial pneumonia: Plan: CXR with baseline atelectasis however difficult to explain WBC and fever without this diagnosis. Continue Zosyn if procalcitonin positive Can discontinue vancomycin if MRSA nose swab negative Sputum culture (3) Tobacco use disorder: Plan: No cigarettes since last admission - confirmed with his (although she had to intercept a packet he tried to get through a friend). Continue to encourage cessation (4) COPD (chronic obstructive pulmonary disease): Plan: Continue duonebs QID Will discontinue steroids at this time as he was mistakenly only getting 5mg prednisone at home and does not appear more short of breath than his baseline and is without wheezing. (5) Chronic diastolic (congestive) heart failure: Plan: Acute on chronic Weight appears to be up 5kg from baseline. Bumex 2mg IV now then BID17 Continue spironolactone 25mg PO BID Will continue until significant Cr bump Low Na, fluid restricted 1800ml diet (6) Hypertension: Plan: Continue Bumex and spironolactone as above (7) GERD (gastroesophageal reflux disease): Plan: Continue pantoprazole 40mg PO BID Plan: VTE Prophylaxis - Lovenox 40mg SQ daily Diet - heart healthy, low Na, fluid restrict 1800ml Disposition - admit to PCU Admission and Anticipated Discharge Date Admission Date: April 17, 2022 History of Present Illness Chief Complaint: Hypoxia Primary Care Provider: Robert Owen MD Richard Lobo is a 76 year old male who presents to the ER with shortness of breath and hypoxia. Unable to get much history from the patient. He appears similar to when I discharged his on April 03 with regards to his chronic shortness of breath. On discussion with his he has ongoing intermittent confusion. He took his oxygen off last night and was using a portable urinal this morning. She has taken over his usual medications however he has been taking his prednisone wrong since discharge as he was supposed to reduce by one pill a day but instead she has only been giving him one pill a day (5mg dose) therefore he has still been taking these. He has not having cigarettes since discharge however not through lack of trying as apparently his had to intercept a packet that he asked a friend to buy. He has not been wearing his non-invasive ventilation at night as it is upstairs and he has only been able to sleep in the recliner downstairs. His is again worried about him returning home due to his ongoing confusion (likely related to hypoxia when he removes his oxygen or hypercapnia when he is on too much). In the ER he does have a fever of 38.2 C however he denies any fevers or chills at home. He denies any worsening cough or shortness of breath. He does note worsening orthopnea however. He was started on vancomycin and Zosyn to cover for hospital-acquired pneumonia. His chest x-ray appears similar to his baseline. WBC 15.68 which is mainly neutrophilia. Procalcitonin is pending at this time. Allergies Allergy/AdvReac Type Severity Reaction Status Date / Time No Known Allergies Allergy Verified 04/17/22 17:23 Home Medications Medication Instructions Recorded Confirmed Type atorvastatin 80 mg tablet 80 mg PO QPM 05/20/20 04/17/22 History magnesium 250 mg tablet 250 mg PO DAILY 05/20/20 04/17/22 History potassium chloride 20 mEq 20 meq PO BID 05/20/20 04/17/22 History tablet,extended release multivitamin (Multiple Vitamins) 1 tab PO DAILY 05/21/20 04/17/22 History docusate sodium 100 mg capsule 100 mg PO BID 06/10/20 04/17/22 History acetaminophen 325 mg capsule 650 mg PO QID PRN 06/11/20 04/17/22 History spironolactone 25 mg tablet 25 mg PO BID 30 Days #60 tab 09/30/20 04/17/22 Rx ferrous sulfate 325 mg (65 mg 65 mg PO BID tab 02/27/21 04/17/22 History iron) tablet nicotine (polacrilex) 2 mg gum 2 mg BUCCAL Q2H PRN #120 ea 09/30/21 04/17/22 Rx bumetanide 2 mg tablet See Rx Instructions PO BID tab 02/12/22 04/17/22 History escitalopram oxalate 10 mg tablet 10 mg PO DAILY 02/12/22 04/17/22 History azelastine 137 mcg (0.1 %) nasal 2 spray INTRANASAL DAILY #30 ml 03/10/22 04/17/22 Rx spray aerosol aspirin 81 mg tablet,delayed 81 mg PO QPM 03/19/22 04/17/22 History release (Adult Low Dose Aspirin) calcium 300 mg chewable tablet 600 mg PO BID 03/22/22 04/17/22 History metolazone 2.5 mg tablet 2.5 mg PO DIRECTED PRN 03/22/22 04/17/22 History pantoprazole 40 mg tablet,delayed 40 mg PO BID 30 Days #60 tab 03/24/22 04/17/22 Rx release Flutter Valve #1 ea 03/27/22 04/17/22 Rx albuterol sulfate 90 mcg/actuation 2 puff INHALATION Q6H PRN #18 g 03/27/22 04/17/22 Rx aerosol inhaler fluticasone fur. 100 mcg-umeclid 1 inh INHALATION DAILY #3 inhaler 03/27/22 04/17/22 Rx 62.5 mcg-vilant 25 mcg inhalat.powder (Trelegy Ellipta) Oxygen Home #1 ea 03/30/22 04/17/22 Rx ipratropium 0.5 mg-albuterol 3 mg 3 ml INHALATION Q6H PRN #180 ml 04/03/22 04/17/22 Rx (2.5 mg base)/3 mL nebulization soln azithromycin 250 mg tablet 250 mg PO 3XWK 04/14/22 04/17/22 History Past Med/Surg History Medical History Acute GI bleeding Acute hyperglycemia Anemia Anemia Anemia Aortic stenosis severe asymptomatic Elevated troponin I level GERD (gastroesophageal reflux disease) History of GI bleed Hypertension Hypertension Hypoxia Hypoxia Metabolic alkalosis with respiratory acidosis SOB (shortness of breath) Tobacco use disorder Uremia Surgical History History of left-sided carotid endarterectomy 2014 Family History Father Hypertension Mother Hypotension Breast cancer Other No family history of adverse response to anesthesia No family history of bleeding disorder Social History Smoking Status: Former smoker Tobacco Type: Cigarettes packs per day: 1; Second Hand Exposure: No; Do You Dip or Chew Tobacco: No; Hx Alcohol Use: Yes Alcohol type: hard liquor Alcohol Intake Frequency: Monthly or Less Alcohol Intake Frequency Comment: 1 bottle of Manny Dupree a month Hx Substance Use: No Preferred Language: Mongolian Communication Ability: Effective Visual Impairment: No Limitations Front Office Supervisor Required: No Beliefs That Will Affect Care: None marital status: Current Living Situation: Spouse Current Living Situation Comment: house current occupational status: retired Other Information That Helps Us Care for You: No Feels Safe at Home: Yes Safety Concerns: Feels Safe At This Time Assistive Devices: Denture - Upper, Denture - Lower and Oxygen - Continuous Review of Systems Review of Systems: All systems reviewed & are unremarkable except as noted in HPI & below Physical Exam Constitutional: well developed; + not well nourished and no acute distress ENMT: external ear and nose normal, oropharynx normal Neck: trachea midline, no thyromegaly Respiratory: + respiratory distress, + labored breathing and + uses accessory muscles Auscultation: + diminished lung sounds (bibasal); no crackles and no wheezes Cardiovascular: Rate/Rhythm: regular rate and regular rhythm Heart Sounds: no murmur Extremities: normal capillary refill Gastrointestinal (Abdomen): normal bowel sounds, soft, nontender, no hepatosplenomegaly Skin: no rashes, warm and dry Neurologic: moves all extremities and awake; not confused Psychiatric: A+Ox3, euthymic affect Results & Data Results & Data ([facility]) Vital Signs (Past 12 Hours) Vital Signs Temp Pulse Pulse Resp BP BP Pulse Ox 04/17/22 17:42 86 L 04/17/22 17:02 97 H 18 129/49 L 92 04/17/22 15:31 93 04/17/22 15:25 94 H 26 H 93 04/17/22 15:23 38.2 C H 99 H 22 137/89 94 04/17/22 15:20 97 H 35 H 93 Laboratory Results Abnormal lab results 04/17/22 04/17/22 04/17/22 Range/Units 15:10 15:10 15:10 WBC 15.68 H (4.8-10.8) K/uL RBC 3.17 L (4.7-6.1) M/uL Hgb 9.3 L (14.0-18.0) g/dL Hct 30.2 L (42-52) % MCHC 30.8 L (32-36) g/dL RDW Std Deviation 56.7 H (36.4-46.3) fL RDW Coeff of [place] 16.2 H (11.5-14.5) % Neut # (Auto) 14.25 H (1.4-6.5) K/uL Lymph # (Auto) 0.55 L (1.2-3.4) K/uL [place] # (Auto) 0.82 H (0.11-0.59) K/uL Immature Gran # (Auto) 0.03 H (0.00-0.02) K/uL Sodium 135 L (136-145) mmol/L Chloride 89 L (98-107) mmol/L Carbon Dioxide 41 H* (21-32) mmol/L BUN 32 H (6-23) mg/dl BUN/Creatinine Ratio 26.4 H (10-20) Glucose 165 H (70-99(Fasting)) mg/dl Troponin I High Sens 28.0 H (0-20) pg/ml B-Natriuretic Peptide (0-100) pg/ml Procalcitonin (0-0.5) ng/ml Urine Ketones (Negative) 04/17/22 04/17/22 04/17/22 Range/Units 15:10 15:43 18:27 WBC (4.8-10.8) K/uL RBC (4.7-6.1) M/uL Hgb (14.0-18.0) g/dL Hct (42-52) % MCHC (32-36) g/dL RDW Std Deviation (36.4-46.3) fL RDW Coeff of [place] (11.5-14.5) % Neut # (Auto) (1.4-6.5) K/uL Lymph # (Auto) (1.2-3.4) K/uL [place] # (Auto) (0.11-0.59) K/uL Immature Gran # (Auto) (0.00-0.02) K/uL Sodium (136-145) mmol/L Chloride (98-107) mmol/L Carbon Dioxide (21-32) mmol/L BUN (6-23) mg/dl BUN/Creatinine Ratio (10-20) Glucose (70-99(Fasting)) mg/dl Troponin I High Sens (0-20) pg/ml B-Natriuretic Peptide 218 H (0-100) pg/ml Procalcitonin 0.95 H (0-0.5) ng/ml Urine Ketones Trace H (Negative) Diagnostic Findings XR chest 2V PA/lateral CLINICAL HISTORY: fever, bilateral pl effusion COMPARISON STUDY: Chest CT March 22, 2022. Chest radiograph April 17, 2022 at 3:50 PM. 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 Cardiomegaly is unchanged. Mild pulmonary edema. Moderate left and small right pleural effusions are present. Left pleural effusion has increased in size since exam of April 14, 2022. Associated bibasilar opacities have increased. IMPRESSION: 1. Moderate left and small right pleural effusions with associated bibasilar opacities. The left pleural effusion has increased in size since chest radiograph of March 31, 2022. 2. Mild pulmonary edema. Cardiomegaly. Medications Administered ER Medications Given: Duoneb 2.5mg Solu-medrol 60mg IV Zosyn 4.5g IV Vancomycin 1750mg IV ECG Indication: SOB/dyspnea Rate (beats per minute): 98 Rhythm: normal sinus Findings: + other (left ventricular hypertrophy) and + 1st degree AV block Comparison ECG Date: from (April 14, 2022) Change: no significant change Code Status & VTE Plan Code Status Full as discussed with the patient VTE Prophylaxis Plan VTE Prophylaxis will be ordered: Yes PG Care Time/CCT Total # of Minutes Spent Total Time Spent with Patient: Total time spent is greater than 50% in coordination of care (as documented) at patient's floor/unit and/or counseling patient: Coding Level of Care Code 28322 Initial Inpt Care Lvl 3 Diagnoses Acute on chronic respiratory failure with hypoxia and hypercapnia J96.21; J96.22 Tobacco use disorder F17.200 Bacterial pneumonia J15.9 COPD (chronic obstructive pulmonary disease) J44.9 COPD type: unspecified COPD Chronic diastolic (congestive) heart failure I50.32 Hypertension I10 GERD (gastroesophageal reflux disease) K21.9 (1) COPD (chronic obstructive pulmonary disease) COPD type: unspecified COPD Qualified Code(s): J44.9 - Chronic obstructive pulmonary disease, unspecified
[2022-04-17] MEDS ORDERED: BUMETANIDE 2 MG in SYRINGE 0 ML IV STA (18:14)
[2022-04-17 18:19] LABS: Influenza A virus by PCR Negative (Neg); Influenza B virus by PCR Negative (Neg); RSV by PCR Negative (Neg); SARS CoV2 RNA(COVID-19) InHosp NEGATIVE (Negative)
[2022-04-17] MEDS ORDERED: ACETAMINOPHEN 325 MG TAB PO PRN (19:36)
[2022-04-17] MEDS: ALBUT/IPRATROP 3MG/0.5MG NEB 3 ML VIAL NEB SCH (21:07)
[2022-04-17] MEDS ORDERED: ENOXAPARIN INJ 40 MG/0.4 ML SYR SQ SCH (21:15)
[2022-04-17] MEDS: PANTOprazole 40 MG TAB PO SCH (21:44)
[2022-04-17] MEDS: CALCIUM CARBONATE 500 MG CHEWABLE TAB PO SCH (21:44)
[2022-04-17] MEDS: DOCUSATE SODIUM 100 MG CAP PO SCH (21:44)
[2022-04-17] MEDS: FERROUS SULFATE 325 MG TAB PO SCH (21:44)
[2022-04-17] MEDS: ASPIRIN 81 MG ECTAB PO SCH (21:45)
[2022-04-17] MEDS: ATORVASTATIN 40 MG TAB PO SCH (21:45)
[2022-04-17] MEDS: SPIRONOLACTONE 25 MG TAB PO SCH (22:37)
--- NOTE | 2022-04-17 22:47 | Emergency Department Note ---
Impression & Plan Chronic respiratory failure with hypoxia, COPD (chronic obstructive pulmonary disease), Bilateral pleural effusion, Fever ED Provider Note CHIEF COMPLAINT: Shortness of breath HISTORY OF PRESENT ILLNESS: This 76 yo patient presents to the emergency department with complaints of shortness of breath. Patient has a history of COPD and is home oxygen dependent. He was found to be 70% his usual 6 L n/c O2. Patient was found to have an increased work of breathing and some confusion. called the ambulance although the patient states he did not want to come to the hospital. He states his breathing is somewhat labored but he is not uncomfortable. He denies any recent fevers or chest pain. Patient does smoke cigarettes. He states he did have a "low fever." Patient was hospitalized earlier this month and found to have pleural effusions. He was in the ER and able to be released several days ago. Patient was brought in on CPAP by EMS and transitioned to BiPAP. REVIEW OF SYSTEMS: A review of systems was performed with positives and pertinent negatives listed in the history of present illness. 10 systems were reviewed and are otherwise negative. ALLERGIES: see below MEDICATIONS: see below PMH: see below SOCIAL HISTORY: see below DDx: Reactive airway disease, pneumonia, pneumothorax, COPD, CHF, infections, cardiac ischemia, pulmonary embolism, musculoskeletal, gastrointestinal, as well as other pathologies. PHYSICAL EXAM: Vital signs reviewed. Oxygen saturations just above 90% on BiPAP. Temperature 38.2 General: Chronically ill-appearing 76-year-old male, in no significant distress. HEENT: No scleral icterus, PERRLA, neck supple. Atraumatic. Cardiovascular: Regular rate and rhythm, no extra sounds. Pulmonary: Distant breath sounds with rhonchi to the bases bilaterally, increased work of breathing on BiPAP Abdomen: Soft, nontender, nondistended, positive bowel sounds. Musculoskeletal: Atraumatic, positive pitting peripheral edema. Neurologic: Patient awake alert and answers most questions appropriately Skin: Warm, dry, no rash EMERGENCY DEPARTMENT COURSE/MDM: Patient was evaluated and appeared to be in no significant distress. Patient was resting comfortably on BiPAP and given a DuoNeb treatment, 60 mg of IV Solu-Medrol. Chest x-ray was performed and reveals bilateral pleural effusions which are chronic. PA and lateral x-rays we re recommended by radiology. There is no focal infiltrate appreciated. Patient's WBC is elevated, presumably from steroids however due to the fever blood cultures and lactate were drawn. Patient was medicated with IV Zosyn and vancomycin due to his recent hospitalization and the possibility of aspiration. Patient was eventually weaned off of the BiPAP and onto an OxyMask. Patient has tested negative for COVID and influenza. Case was discussed with the hospitalist service who has agreed to evaluate the patient for further management. MONITORING: An order for cardiac monitoring was placed and the patient is noted to be in a sinus rhythm with first degree AV block at 99 beats per minute. RADIOLOGY: see below EKG: Sinus rhythm with a first-degree AV block at 98 beats per minute. Left axis deviation with QTc 446. Normal ST segments. no PVC, no PAC. DISPOSITION: Admit I have personally spent 32 minutes of critical care time in the direct management of this patient. This was a life/limb threatening event. This 32 minutes is in excess of all separately billable procedures. Past Med/Surg History Medical History Acute GI bleeding Acute hyperglycemia Anemia Anemia Anemia Aortic stenosis severe asymptomatic Elevated troponin I level GERD (gastroesophageal reflux disease) History of GI bleed Hypertension Hypertension Hypoxia Hypoxia Metabolic alkalosis with respiratory acidosis SOB (shortness of breath) Tobacco use disorder Uremia Surgical History History of left-sided carotid endarterectomy 2013 Family History Father Hypertension Mother Hypotension Breast cancer Other No family history of adverse response to anesthesia No family history of bleeding disorder Social History Smoking Status: Former smoker Tobacco Type: Cigarettes packs per day: 1; Second Hand Exposure: No; Hx Alcohol Use: Yes Alcohol type: hard liquor Alcohol Intake Frequency: Monthly or Less Alcohol Intake Frequency Comment: 1 bottle of Manny Dupree a month Hx Substance Use: No Preferred Language: Sami Communication Ability: Effective Visual Impairment: No Limitations Accounts Payable Or Receivable Clerk Required: No Beliefs That Will Affect Care: None marital status: Current Living Situation: Spouse Current Living Situation Comment: house current occupational status: retired Feels Safe at Home: Yes Assistive Devices: Cane, Oxygen - Continuous and Walker Allergies Allergies Allergy/AdvReac Type Severity Reaction Status Date / Time No Known Allergies Allergy Verified 04/17/22 17:23 Home Meds Home Medications Medication Instructions Recorded Confirmed atorvastatin 80 mg tablet 80 mg PO QPM 05/20/20 04/17/22 magnesium 250 mg tablet 250 mg PO DAILY 05/20/20 04/17/22 multivitamin (Multiple Vitamins) 1 tab PO DAILY 05/21/20 04/17/22 docusate sodium 100 mg capsule 100 mg PO BID 06/10/20 04/17/22 acetaminophen 325 mg capsule 650 mg PO QID PRN 06/11/20 04/17/22 ferrous sulfate 325 mg (65 mg 65 mg PO BID tab 02/27/21 04/17/22 iron) tablet bumetanide 2 mg tablet See Rx Instructions PO BID tab 02/12/22 04/17/22 escitalopram oxalate 10 mg tablet 10 mg PO DAILY 02/12/22 04/17/22 aspirin 81 mg tablet,delayed 81 mg PO QPM 03/19/22 04/17/22 release (Adult Low Dose Aspirin) calcium 300 mg chewable tablet 600 mg PO BID 03/22/22 04/17/22 metolazone 2.5 mg tablet 2.5 mg PO DIRECTED PRN 03/22/22 04/17/22 azithromycin 250 mg tablet 250 mg PO [id number] 04/14/22 04/17/22 Previous Rx's Medication Instructions Recorded spironolactone 25 mg tablet 25 mg PO BID 30 Days #60 tab 09/30/20 nicotine (polacrilex) 2 mg gum 2 mg BUCCAL Q2H PRN #120 ea 09/30/21 azelastine 137 mcg (0.1 %) nasal 2 spray INTRANASAL DAILY #30 ml 03/10/22 spray aerosol pantoprazole 40 mg tablet,delayed 40 mg PO BID 30 Days #60 tab 03/24/22 release Flutter Valve #1 ea 03/27/22 albuterol sulfate 90 mcg/actuation 2 puff INHALATION Q6H PRN #18 g 03/27/22 aerosol inhaler fluticasone fur. 100 mcg-umeclid 1 inh INHALATION DAILY #3 inhaler 03/27/22 62.5 mcg-vilant 25 mcg inhalat.powder (Trelegy Ellipta) Oxygen Home #1 ea 03/30/22 ipratropium 0.5 mg-albuterol 3 mg 3 ml INHALATION Q6H PRN #180 ml 04/03/22 (2.5 mg base)/3 mL nebulization soln amoxicillin 875 mg-potassium 1 tab PO BID 8 Days #16 tab 04/20/22 clavulanate 125 mg tablet buspirone 5 mg tablet 5 mg PO TID PRN #30 tab 04/20/22 doxycycline hyclate 100 mg tablet 100 mg PO BID 8 Days #16 tab 04/20/22 potassium chloride 20 mEq 20 meq PO QAM #0 tab 04/20/22 tablet,extended release Results & Data (ED) Vital Signs Vital Signs - 24 hr 04/17/22 15:20 04/17/22 15:23 04/17/22 15:25 Temperature 38.2 C H Temperature Source Oral Pulse Rate 97 H 99 H Pulse Rate [Apical] 94 H Respiratory Rate 35 H 22 26 H Respiratory Effort / Characteristics Spontaneous Labored Spontaneous Blood Pressure 137/89 Blood Pressure [Left Arm] Blood Pressure Mean 105 Blood Pressure Mean [Left Arm] Pulse Oximetry 93 94 93 Oxygen Delivery Method CPAP BiPAP Oxygen Flow Rate Fraction of Inspired Oxygen 40 40 Sepsis Recent Fever Within 48 Hours Yes Sepsis New/Unexplained Change in Mental Status No Sepsis Action Taken by Nursing Physician Notified Oxygen Flow Rate - Titration Pulse Oximetry Post Tiitration 04/17/22 15:31 04/17/22 17:02 04/17/22 17:42 Temperature Temperature Source Pulse Rate Pulse Rate [Apical] 97 H Respiratory Rate 18 Respiratory Effort / Characteristics Blood Pressure Blood Pressure [Left Arm] 129/49 L Blood Pressure Mean Blood Pressure Mean [Left Arm] 75 Pulse Oximetry 93 92 86 L Oxygen Delivery Method BiPAP Nasal Cannula Nasal Cannula Oxymask Oxygen Flow Rate 6 6 Fraction of Inspired Oxygen Sepsis Recent Fever Within 48 Hours Sepsis New/Unexplained Change in Mental Status Sepsis Action Taken by Nursing Oxygen Flow Rate - Titration 6 Pulse Oximetry Post Tiitration 90 04/17/22 18:04 Temperature Temperature Source Pulse Rate Pulse Rate [Apical] Respiratory Rate Respiratory Effort / Characteristics Blood Pressure Blood Pressure [Left Arm] Blood Pressure Mean Blood Pressure Mean [Left Arm] Pulse Oximetry 94 Oxygen Delivery Method Oxymask Oxygen Flow Rate 7 Fraction of Inspired Oxygen Sepsis Recent Fever Within 48 Hours Sepsis New/Unexplained Change in Mental Status Sepsis Action Taken by Nursing Oxygen Flow Rate - Titration 5 Pulse Oximetry Post Tiitration 92 Home Medications Current Medication List: was personally reviewed by me Laboratory Data Attestation: I reviewed the patient's lab results. Result diagrams: 04/20/22 06:47 04/20/22 06:47 Lab Results 04/17/22 04/17/22 04/17/22 Range/Units 15:10 15:10 15:10 WBC 15.68 H (4.8-10.8) K/uL RBC 3.17 L (4.7-6.1) M/uL Hgb 9.3 L (14.0-18.0) g/dL Hct 30.2 L (42-52) % MCV 95.3 (80-100) fL MCH 29.3 (25-34) pg MCHC 30.8 L (32-36) g/dL RDW Std Deviation 56.7 H (36.4-46.3) fL RDW Coeff of [place] 16.2 H (11.5-14.5) % Plt Count 326 (130-400) K/uL MPV 10.2 (7.4-10.4) fL Immature Gran % (Auto) 0.2 % Neut % (Auto) 90.9 % Lymph % (Auto) 3.5 % [place] % (Auto) 5.2 % Eos % (Auto) 0.1 % Baso % (Auto) 0.1 % Neut # (Auto) 14.25 H (1.4-6.5) K/uL Lymph # (Auto) 0.55 L (1.2-3.4) K/uL [place] # (Auto) 0.82 H (0.11-0.59) K/uL Eos # (Auto) 0.01 (0-0.5) K/uL Baso # (Auto) 0.02 (0-0.2) K/uL Immature Gran # (Auto) 0.03 H (0.00-0.02) K/uL Sodium 135 L (136-145) mmol/L Potassium 5.1 (3.5-5.1) mmol/L Chloride 89 L (98-107) mmol/L Carbon Dioxide 41 H* (21-32) mmol/L Anion Gap 5 (3-11) BUN 32 H (6-23) mg/dl Creatinine 1.21 (0.6-1.4) mg/dl Est Cr Clr Drug Dosing 54.8 ml/min Est GFR ( Amer) 66.1 ml/min Est GFR (Non-Af Amer) 57.0 ml/min BUN/Creatinine Ratio 26.4 H (10-20) Glucose 165 H (70-99(Fasting)) mg/dl Calcium 9.7 (8.5-10.1) mg/dl Magnesium 2.3 (1.7-2.4) mg/dl Total Bilirubin 0.4 (0.2-1.0) mg/dl AST 20 (13-39) U/L ALT 18 (7-52) U/L Alkaline Phosphatase 71 (34-104) U/L Troponin I High Sens 28.0 H (0-20) pg/ml Total Protein 6.4 (6.0-8.3) gm/dl Albumin 3.9 (3.4-5.0) gm/dl Globulin 2.5 (2.5-4.0) gm/dl Albumin/Globulin Ratio 1.6 (0.9-2) Procalcitonin (0-0.5) ng/ml Urine Color Urine Appearance (Clear) Urine pH (4.5-7.5) Ur Specific [place] (1.000-1.030) Urine Protein (Negative) Urine Glucose (UA) (Negative) Urine Ketones (Negative) Urine Blood (Negative) Urine Nitrite (Negative) Urine Bilirubin (Negative) Urine Urobilinogen (Negative) Ur Leukocyte Esterase (Negative) SARS-CoV-2 (PCR) (Negative) Influenza Type A (PCR) (Neg) Influenza Type B (PCR) (Neg) RSV (RT-PCR) (Neg) 04/17/22 04/17/22 04/17/22 Range/Units 15:10 15:43 17:19 WBC (4.8-10.8) K/uL RBC (4.7-6.1) M/uL Hgb (14.0-18.0) g/dL Hct (42-52) % MCV (80-100) fL MCH (25-34) pg MCHC (32-36) g/dL RDW Std Deviation (36.4-46.3) fL RDW Coeff of [place] (11.5-14.5) % Plt Count (130-400) K/uL MPV (7.4-10.4) fL Immature Gran % (Auto) % Neut % (Auto) % Lymph % (Auto) % [place] % (Auto) % Eos % (Auto) % Baso % (Auto) % Neut # (Auto) (1.4-6.5) K/uL Lymph # (Auto) (1.2-3.4) K/uL [place] # (Auto) (0.11-0.59) K/uL Eos # (Auto) (0-0.5) K/uL Baso # (Auto) (0-0.2) K/uL Immature Gran # (Auto) (0.00-0.02) K/uL Sodium (136-145) mmol/L Potassium (3.5-5.1) mmol/L Chloride (98-107) mmol/L Carbon Dioxide (21-32) mmol/L Anion Gap (3-11) BUN (6-23) mg/dl Creatinine (0.6-1.4) mg/dl Est Cr Clr Drug Dosing ml/min Est GFR ( Amer) ml/min Est GFR (Non-Af Amer) ml/min BUN/Creatinine Ratio (10-20) Glucose (70-99(Fasting)) mg/dl Calcium (8.5-10.1) mg/dl Magnesium (1.7-2.4) mg/dl Total Bilirubin (0.2-1.0) mg/dl AST (13-39) U/L ALT (7-52) U/L Alkaline Phosphatase (34-104) U/L Troponin I High Sens (0-20) pg/ml Total Protein (6.0-8.3) gm/dl Albumin (3.4-5.0) gm/dl Globulin (2.5-4.0) gm/dl Albumin/Globulin Ratio (0.9-2) Procalcitonin 0.95 H (0-0.5) ng/ml Urine Color Yellow Urine Appearance Clear (Clear) Urine pH 5.0 (4.5-7.5) Ur Specific [place] 1.013 (1.000-1.030) Urine Protein Negative (Negative) Urine Glucose (UA) Negative (Negative) Urine Ketones Trace H (Negative) Urine Blood Negative (Negative) Urine Nitrite Negative (Negative) Urine Bilirubin Negative (Negative) Urine Urobilinogen Negative (Negative) Ur Leukocyte Esterase Negative (Negative) SARS-CoV-2 (PCR) NEGATIVE (Negative) Influenza Type A (PCR) Negative (Neg) Influenza Type B (PCR) Negative (Neg) RSV (RT-PCR) Negative (Neg) Administered Medications Discontinued Medications Acetaminophen (Acetaminophen 325 Mg Tab) 650 mg PO Q4H PRN PRN Reason: Pain or Fever Stop: 05/17/22 19:35 Last Admin: 04/18/22 05:56 Dose: 650 mg Documented by: [id number] Albuterol (Albuterol 0.083% Nebu Soln 3 Ml Vial) 2.5 mg INH NOW STA Stop: 04/17/22 15:17 Last Admin: 04/17/22 15:23 Dose: 2.5 mg Documented by: [id number] Albuterol (Albut/Ipratrop 3mg/0.5mg Neb 3 Ml Vial) 3 ml NEB QIDR [facility]; Protocol Stop: 05/17/22 19:35 Last Admin: 04/18/22 11:16 Dose: 3 ml Documented by: [id number] Admin: 04/18/22 07:18 Dose: 3 ml Documented by: [id number] Admin: 04/17/22 21:07 Dose: 3 ml Documented by: [id number] Amoxicillin/Clavulanate Potassium (Amoxicillin/Clavulanate 875 Mg Tab) 1 tab PO BIDM [facility] Stop: 04/26/22 16:59 Last Admin: 04/20/22 08:22 Dose: 1 tab Documented by: [id number] Admin: 04/19/22 17:58 Dose: 1 tab Documented by: [id number] Aspirin (Aspirin 81 Mg Ectab) 81 mg PO QPM [facility] Stop: 05/17/22 20:59 Last Admin: 04/19/22 19:46 Dose: 81 mg Documented by: [id number] Admin: 04/18/22 20:48 Dose: 81 mg Documented by: [id number] Admin: 04/17/22 21:45 Dose: 81 mg Documented by: [id number] Atorvastatin Calcium (Atorvastatin 40 Mg Tab) 80 mg PO QPM [facility] Stop: 05/17/22 20:59 Last Admin: 04/19/22 19:46 Dose: 80 mg Documented by: [id number] Admin: 04/18/22 20:48 Dose: 80 mg Documented by: [id number] Admin: 04/17/22 21:45 Dose: 80 mg Documented by: [id number] Buspirone HCl (Buspirone 5 Mg Tab) 5 mg PO TID PRN PRN Reason: anxiety Stop: 05/18/22 20:59 Last Admin: 04/20/22 08:21 Dose: 5 mg Documented by: [id number] Buspirone HCl (Buspirone 5 Mg Tab) 5 mg PO ONE STA Stop: 04/19/22 16:00 Last Admin: 04/19/22 17:34 Dose: 5 mg Documented by: [id number] Calcium Carbonate (Calcium Carbonate 500 Mg Chewable Tab) 500 mg PO BID MARZENA Stop: 05/17/22 20:59 Last Admin: 04/20/22 08:21 Dose: 500 mg Documented by: [id number] Admin: 04/19/22 19:47 Dose: 500 mg Documented by: [id number] Admin: 04/19/22 09:43 Dose: 500 mg Documented by: [id number] Admin: 04/18/22 23:09 Dose: 500 mg Documented by: [id number] Admin: 04/18/22 08:49 Dose: 500 mg Documented by: [id number] Admin: 04/17/22 21:44 Dose: 500 mg Documented by: [id number] Docusate Sodium (Docusate Sodium 100 Mg Cap) 100 mg PO BID [facility] Stop: 05/17/22 20:59 Last Admin: 04/20/22 08:26 Dose: 100 mg Documented by: [id number] Admin: 04/19/22 19:47 Dose: 100 mg Documented by: [id number] Admin: 04/19/22 09:43 Dose: 100 mg Documented by: [id number] Admin: 04/18/22 20:48 Dose: 100 mg Documented by: [id number] Admin: 04/18/22 08:49 Dose: 100 mg Documented by: [id number] Admin: 04/17/22 21:44 Dose: 100 mg Documented by: [id number] Doxycycline Hyclate (Doxycycline Hyclate 100 Mg Cap) 100 mg PO BID@0700,1900 [facility] Stop: 04/25/22 19:59 Last Admin: 04/20/22 06:19 Dose: 100 mg Documented by: [id number] Admin: 04/19/22 17:58 Dose: 100 mg Documented by: [id number] Admin: 04/19/22 05:36 Dose: 100 mg Documented by: [id number] Admin: 04/18/22 20:48 Dose: 100 mg Documented by: [id number] Enoxaparin Sodium (Enoxaparin Inj 40 Mg/0.4 Ml Syr) 40 mg SQ QPM MARZENA Stop: 05/17/22 21:14 Last Admin: 04/17/22 22:37 Dose: 40 mg Documented by: [id number] Escitalopram Oxalate (Escitalopram Oxalate 10 Mg Tab) 10 mg PO DAILY MARZENA Stop: 05/18/22 08:59 Last Admin: 04/20/22 08:21 Dose: 10 mg Documented by: [id number] Admin: 04/19/22 09:43 Dose: 10 mg Documented by: [id number] Admin: 04/18/22 08:49 Dose: 10 mg Documented by: [id number] Ferrous Sulfate (Ferrous Sulfate 325 Mg Tab) 325 mg PO BID MARZENA Stop: 05/17/22 20:59 Last Admin: 04/18/22 08:49 Dose: 325 mg Documented by: [id number] Admin: 04/17/22 21:44 Dose: 325 mg Documented by: [id number] Fluticasone Furoate (Fluticasone Furoate 100mcg 14 Puffs/Inhaler) 1 puffs INH DAILY MARZENA Stop: 05/18/22 08:59 Last Admin: 04/20/22 08:22 Dose: 1 puffs Documented by: [id number] Admin: 04/19/22 09:43 Dose: 1 puffs Documented by: [id number] Admin: 04/18/22 08:50 Dose: 1 puffs Documented by: [id number] Piperacillin Sod/Tazobactam Sod (Zosyn) 4.5 gm in 120 mls @ 240 mls/hr IV NOW ONE Stop: 04/17/22 17:09 Last Infusion: 04/17/22 17:27 Dose: 0 mls/hr Documented by: [id number] Admin: 04/17/22 16:56 Dose: 240 mls/hr Documented by: [id number] Vancomycin HCl 1,750 mg/ (Sodium Chloride) 535 mls @ 200 mls/hr IV NOW ONE Stop: 04/17/22 19:20 Last Infusion: 04/17/22 20:40 Dose: 0 mls/hr Documented by: [id number] Admin: 04/17/22 17:55 Dose: 200 mls/hr Documented by: [id number] Bumetanide 2 mg/ Syringe 8 mls @ 4 mls/min IV ONE STA Stop: 04/17/22 18:15 Last Admin: 04/17/22 21:03 Dose: 4 mls/min Documented by: [id number] Bumetanide 2 mg/ Syringe 8 mls @ 4 mls/min IV BID@0900,1700 MARZENA Stop: 05/18/22 08:59 Last Admin: 04/20/22 08:23 Dose: 4 mls/min Documented by: [id number] Admin: 04/19/22 17:35 Dose: 4 mls/min Documented by: [id number] Admin: 04/19/22 09:43 Dose: 4 mls/min Documented by: [id number] Admin: 04/18/22 17:09 Dose: 4 mls/min Documented by: [id number] Admin: 04/18/22 08:48 Dose: 4 mls/min Documented by: [id number] Piperacillin Sod/Tazobactam (Sod 3.375 gm/ Dextrose) 115 mls @ 28.75 mls/hr IV Q8H [facility]; Protocol Stop: 04/25/22 00:00 Last Admin: 04/19/22 16:53 Dose: Not Given Documented by: [id number] Infusion: 04/19/22 13:44 Dose: 0 mls/hr Documented by: [id number] Admin: 04/19/22 09:42 Dose: 28.8 mls/hr Documented by: [id number] Infusion: 04/19/22 03:08 Dose: 0 mls/hr Documented by: [id number] Admin: 04/18/22 23:08 Dose: 28.8 mls/hr Documented by: [id number] Infusion: 04/18/22 20:46 Dose: 0 mls/hr Documented by: [id number] Admin: 04/18/22 16:32 Dose: 28.8 mls/hr Documented by: [id number] Infusion: 04/18/22 13:12 Dose: 0 mls/hr Documented by: [id number] Admin: 04/18/22 08:48 Dose: 28.8 mls/hr Documented by: [id number] Infusion: 04/18/22 04:31 Dose: 0 mls/hr Documented by: [id number] Admin: 04/18/22 00:31 Dose: 28.8 mls/hr Documented by: [id number] Iron Sucrose 300 mg/ Sodium (Chloride) 265 mls @ 176.667 mls/hr IV QAM MARZENA Stop: 04/23/22 08:59 Last Infusion: 04/20/22 10:37 Dose: 0 mls/hr Documented by: [id number] Admin: 04/20/22 09:15 Dose: 176.7 mls/hr Documented by: [id number] Magnesium Oxide (Magnesium Oxide 400 Mg Tab) 400 mg PO DAILY MARZENA Stop: 05/18/22 08:59 Last Admin: 04/20/22 08:21 Dose: 400 mg Documented by: [id number] Admin: 04/19/22 09:43 Dose: 400 mg Documented by: [id number] Admin: 04/18/22 08:49 Dose: 400 mg Documented by: [id number] Melatonin (Melatonin 3 Mg Tab) 3 mg PO HS PRN PRN Reason: Sleep Stop: 05/18/22 01:33 Last Admin: 04/18/22 01:51 Dose: 3 mg Documented by: [id number] Melatonin (Melatonin 3 Mg Tab) 6 mg PO HS MARZENA Stop: 05/19/22 20:59 Last Admin: 04/19/22 19:47 Dose: 6 mg Documented by: [id number] Melatonin (Melatonin 3 Mg Tab) 3 mg PO 0030 ONE Stop: 04/20/22 00:31 Last Admin: 04/20/22 00:59 Dose: 3 mg Documented by: [id number] Methylprednisolone (Methylprednisolone 125 Mg/2 Ml Vial) 60 mg IV NOW STA Stop: 04/17/22 15:17 Last Admin: 04/17/22 15:39 Dose: 60 mg Documented by: [id number] Multivitamins (Multivitamin Tab) 1 tab PO DAILY MARZENA Stop: 05/18/22 08:59 Last Admin: 04/20/22 08:21 Dose: 1 tab Documented by: [id number] Admin: 04/19/22 09:43 Dose: 1 tab Documented by: [id number] Admin: 04/18/22 08:49 Dose: 1 tab Documented by: [id number] Pantoprazole Sodium (Pantoprazole 40 Mg Tab) 40 mg PO BID MARZENA Stop: 05/17/22 20:59 Last Admin: 04/20/22 08:22 Dose: 40 mg Documented by: [id number] Admin: 04/19/22 19:47 Dose: 40 mg Documented by: [id number] Admin: 04/19/22 09:43 Dose: 40 mg Documented by: [id number] Admin: 04/18/22 20:48 Dose: 40 mg Documented by: [id number] Admin: 04/18/22 08:49 Dose: 40 mg Documented by: [id number] Admin: 04/17/22 21:44 Dose: 40 mg Documented by: [id number] Spironolactone (Spironolactone 25 Mg Tab) 25 mg PO BID MARZENA Stop: 05/17/22 20:59 Last Admin: 04/20/22 08:22 Dose: 25 mg Documented by: [id number] Admin: 04/19/22 19:48 Dose: 25 mg Documented by: [id number] Admin: 04/19/22 09:43 Dose: 25 mg Documented by: [id number] Admin: 04/18/22 20:49 Dose: 25 mg Documented by: [id number] Admin: 04/18/22 08:49 Dose: 25 mg Documented by: [id number] Admin: 04/17/22 22:37 Dose: 25 mg Documented by: [id number] Umeclidinium/Vilanterol (Umeclidinium/Vilanterol 62.5/25mcg 7 Puffs/Inhaler) 1 puffs INH DAILY MARZENA Stop: 05/18/22 08:59 Last Admin: 04/20/22 08:22 Dose: 1 puffs Documented by: [id number] Admin: 04/19/22 09:43 Dose: 1 puffs Documented by: [id number] Admin: 04/18/22 08:49 Dose: 1 puffs Documented by: [id number] Imaging Data Radiologist's Impression: Chest X-Ray 04/17/22 15:16 XR chest 1V portable CLINICAL HISTORY: Dyspnea. COMPARISON STUDY: 04/14/2022 TECHNIQUE: 1 view of the chest FINDINGS: Single frontal view of the chest demonstrates the heart to again be enlarged. Chronic prominence of interstitial markings again seen at the lung bases. No definite confluent alveolar opacities are identified. There is again suspicion of bilateral pleural effusions, left greater than right. Follow-up PA and lateral radiographs are again recommended for further evaluation. There is no evidence for vascular congestion. There is no acute osseous pathology. IMPRESSION: 1. Chronic prominence of the interstitial markings again seen at the lung bases with suspicion of bilateral pleural effusions, left greater than right. PA and lateral radiographs are again recommended for further evaluation. ACT 112: Negative or not required by law. Electronically signed by: Waldemar Gifford M.D. 04/17/2022 3:56 PM Chest X-Ray 04/17/22 16:46 XR chest 2V PA/lateral CLINICAL HISTORY: fever, bilateral pl effusion COMPARISON STUDY: Chest CT March 22, 2022. Chest radiograph April 17, 2022 at 3:50 PM. 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 Cardiomegaly is unchanged. Mild pulmonary edema. Moderate left and small right pleural effusions are present. Left pleural effusion has increased in size since exam of April 14, 2022. Associated bibasilar opacities have increased. IMPRESSION: 1. Moderate left and small right pleural effusions with associated bibasilar opacities. The left pleural effusion has increased in size since chest radiograph of March 31, 2022. 2. Mild pulmonary edema. Cardiomegaly. ACT 112: Negative or not required by law. Electronically signed by: Anjum Chaudhry M.D. 04/17/2022 5:17 PM Blood Pressure Blood Pressure Findings: Normal blood pressure Blood Pressure Disposition: did not require urgent referral Discharge Plan Visit Data Chief Complaint: Respiratory Problems ED Provider: Olivia Lockett Discharge Problem: Chronic respiratory failure with hypoxia, COPD (chronic obstructive pulmonary disease), Bilateral pleural effusion, Fever Patient Disposition: Admitted As Inpatient Discharge Instructions Interventions: ED Discharge Assessment Last Done: 04/17/22 18:57 Discharge Problem: COPD (chronic obstructive pulmonary disease) Qualifiers: COPD type: COPD with acute exacerbation Qualified Code(s): J44.1 - Chronic obstructive pulmonary disease with (acute) exacerbation Fever Qualifiers: Fever type: due to other condition Qualified Code(s): R50.81 - Fever presenting with conditions classified elsewhere
[2022-04-18] MEDS: PIPERACILLIN/TAZOBACTAM 3.375 GM in DEXTROSE 5% 100 ML IV SCH ×4 (00:31→23:08)
[2022-04-18] MEDS ORDERED: MELATONIN 3 MG TAB PO PRN (01:34)
[2022-04-18] MEDS: ALBUT/IPRATROP 3MG/0.5MG NEB 3 ML VIAL NEB SCH ×2 (07:18→11:16)
[2022-04-18 08:35] LABS: Basophils # (auto) 0.02 K/uL (0-0.2); Basophils % (auto) 0.1 %; Hematocrit (blood only) 27.6 % (42-52); Hemoglobin 8.2 g/dL (14.0-18.0); Immature Granulocytes # (auto) 0.07 K/uL (0.00-0.02); Immature Granulocytes % (auto) 0.5 %; Lymphocytes % (auto) 3.9 %; Mean Corpuscular Hemoglobin 28.3 pg (25-34); Mean Corpuscular Hgb Conc 29.7 g/dL (32-36); Mean Corpuscular Volume 95.2 fL (80-100); Mean Platelet Volume 10.2 fL (7.4-10.4); Monocytes # (auto) 0.97 K/uL (0.11-0.59); Monocytes % (auto) 6.3 %; Neutrophils # (auto) 13.71 K/uL (1.4-6.5); Neutrophils % (auto) 89.2 %; Platelet Count 315 K/uL (130-400); RDW Coefficient of Variation 16.2 % (11.5-14.5); RDW Standard Deviation 57.2 fL (36.4-46.3); White Blood Count 15.37 K/uL (4.8-10.8)
[2022-04-18 08:46] LABS: BUN Creatinine Ratio 36.3 (10-20); Calcium 9.7 mg/dl (8.5-10.1); Creatinine Clr Calc Pharmacy 53.9 ml/min; Est GFR (African American) 71.8 ml/min; Est GFR (Non-African American) 61.9 ml/min; Potassium 4.4 mmol/L (3.5-5.1)
[2022-04-18] MEDS: BUMETANIDE 2 MG in SYRINGE 0 ML IV SCH ×2 (08:48→17:09)
[2022-04-18] MEDS: MAGNESIUM OXIDE 400 MG TAB PO SCH (08:49)
[2022-04-18] MEDS: ESCITALOPRAM OXALATE 10 MG TAB PO SCH (08:49)
[2022-04-18] MEDS: PANTOprazole 40 MG TAB PO SCH ×2 (08:49→20:48)
[2022-04-18] MEDS: FERROUS SULFATE 325 MG TAB PO SCH (08:49)
[2022-04-18] MEDS: CALCIUM CARBONATE 500 MG CHEWABLE TAB PO SCH ×2 (08:49→23:09)
[2022-04-18] MEDS: UMECLIDINIUM/VILANTEROL 62.5/25MCG 7 PUFFS/INHALER INH SCH (08:49)
[2022-04-18] MEDS: MULTIVITAMIN TAB PO SCH (08:49)
[2022-04-18] MEDS: SPIRONOLACTONE 25 MG TAB PO SCH ×2 (08:49→20:49)
[2022-04-18] MEDS: DOCUSATE SODIUM 100 MG CAP PO SCH ×2 (08:49→20:48)
[2022-04-18] MEDS: FLUTICASONE FUROATE 100MCG 14 PUFFS/INHALER INH SCH (08:50)
[2022-04-18] MEDS ORDERED: ALBUT/IPRATROP 3MG/0.5MG NEB 3 ML VIAL NEB PRN (14:37)
[2022-04-18] MEDS ORDERED: busPIRone 5 MG TAB PO PRN (16:56)
--- NOTE | 2022-04-18 17:10 | Hospitalist Progress Note ---
Date of Service April 18, 2022 Assessment & Plan (1) Acute on chronic respiratory failure with hypoxia and hypercapnia: Plan: Secondary to taking himself off oxygen this morning. Low suspicion of acute COPD exacerbation but suspect it just took a long time of recover. Concerning leukocytosis and fever for acute bacterial pneumonia although his CXR remains somewhat stable. Flu, RSV and COVID PCR negative. Procalcitonin 0.95 Continue Zosyn, blood culture negative after 24 hours Flutter valve Incentive spirometry Aspiration precautions BiPAP HS and while napping. Otherwise aim O2 sats 88-92% to avoid worsening CO2 retention (even if this is below his usual home 4LPM O2) (2) Bacterial pneumonia: Plan: CXR with baseline atelectasis however difficult to explain WBC and fever without this diagnosis. Continue Zosyn, will add doxycycline for atypical coverage since he is on prophylactic azithromycin Vancomycin d/c as MRSA nasal swab negative Sputum culture not yet collected (3) Tobacco use disorder: Plan: No cigarettes since last admission - confirmed with his (although she had to intercept a packet he tried to get through a friend). Continue to encourage cessation (4) COPD (chronic obstructive pulmonary disease): Plan: No acute exacerbation suspected Continue duonebs QID PRN (5) Chronic diastolic (congestive) heart failure: Plan: Acute on chronic Weight appears to be up 5kg from baseline. Bumex 2mg IV IV BID17 Continue spironolactone 25mg PO BID Will continue until significant Cr bump Low Na, fluid restricted 1800ml diet (6) Hypertension: Plan: Continue Bumex and spironolactone as above (7) GERD (gastroesophageal reflux disease): Plan: Continue pantoprazole 40mg PO BID (8) Iron deficiency anemia: Plan: Transferrin sats improved to 5% Will start Venofer if blood culture continue to be negative after 48 hours Hold Lovenox Repeat CBC in AM FOB Plan: VTE Prophylaxis - Hold further lovenox given drop in Hgb, required 13 units of blood since 2018 Diet - heart healthy, low Na, fluid restrict 1800ml Disposition - stable for downgrade to med/surg Admission and Anticipated Discharge Date Admission Date: April 17, 2022 Subjective Hgb dropped from 9.3 to 8.2. Patient denies any epigastric pain, melena or bright red blood in stool. Shortness of breath at baseline. Mentation at baseline. Only wore BiPAP for 30 minutes last night and refused to put it back on. Currently on baseline oxygen. Telemetry: SR 80s Review of Systems Review of Systems: All systems reviewed & are unremarkable except as noted in Subjective Physical Exam Constitutional: well developed; + not well nourished and no acute distress ENMT: external ear and nose normal, oropharynx normal Neck: trachea midline, no thyromegaly Respiratory: normal respiratory effort Auscultation: + diminished lung sounds (bibasal); no crackles and no wheezes Cardiovascular: Rate/Rhythm: regular rate and regular rhythm Heart Sounds: no murmur Extremities: normal capillary refill Gastrointestinal (Abdomen): normal bowel sounds, soft, nontender, no hepatosplenomegaly Skin: no rashes, warm and dry Neurologic: moves all extremities and awake; not confused Psychiatric: A+Ox3, euthymic affect Results & Data Results & Data ([facility]) Vital Signs (Past 12 Hours) Vital Signs Temp Pulse Pulse Resp BP Pulse Ox 04/18/22 15:29 36.8 C 86 20 99/48 L 93 04/18/22 15:07 77 04/18/22 12:03 36.5 C 87 18 147/51 H 100 04/18/22 11:16 78 16 98 04/18/22 09:29 73 04/18/22 08:02 36.5 C 72 16 113/51 L 98 04/18/22 07:18 78 18 94 PG Care Time/CCT Total # of Minutes Spent Total Time Spent with Patient: Total time spent is greater than 50% in coordination of care (as documented) at patient's floor/unit and/or counseling patient: Coding Level of Care Code 36208 Subseq Hosp Care Lvl 3 Diagnoses Acute on chronic respiratory failure with hypoxia and hypercapnia J96.21; J96.22 Bacterial pneumonia J15.9 Tobacco use disorder F17.200 COPD (chronic obstructive pulmonary disease) J44.1 COPD type: COPD with acute exacerbation Chronic diastolic (congestive) heart failure I50.32 Hypertension I10 GERD (gastroesophageal reflux disease) K21.9 Iron deficiency anemia D50.9 (1) COPD (chronic obstructive pulmonary disease) COPD type: COPD with acute exacerbation Qualified Code(s): J44.1 - Chronic obstructive pulmonary disease with (acute) exacerbation
[2022-04-18] MEDS: ATORVASTATIN 40 MG TAB PO SCH (20:48)
[2022-04-18] MEDS: ASPIRIN 81 MG ECTAB PO SCH (20:48)
[2022-04-18] MEDS: DOXYCYCLINE HYCLATE 100 MG CAP PO SCH (20:48)
[2022-04-19] MEDS: DOXYCYCLINE HYCLATE 100 MG CAP PO SCH ×2 (05:36→17:58)
[2022-04-19] MEDS ORDERED: IRON SUCROSE 300 MG in SODIUM CHLORIDE 0.9% 250 ML IV SCH (09:00)
[2022-04-19] MEDS: PIPERACILLIN/TAZOBACTAM 3.375 GM in DEXTROSE 5% 100 ML IV SCH ×2 (09:42→16:53)
[2022-04-19] MEDS: PANTOprazole 40 MG TAB PO SCH ×2 (09:43→19:47)
[2022-04-19] MEDS: ESCITALOPRAM OXALATE 10 MG TAB PO SCH (09:43)
[2022-04-19] MEDS: CALCIUM CARBONATE 500 MG CHEWABLE TAB PO SCH ×2 (09:43→19:47)
[2022-04-19] MEDS: MULTIVITAMIN TAB PO SCH (09:43)
[2022-04-19] MEDS: FLUTICASONE FUROATE 100MCG 14 PUFFS/INHALER INH SCH (09:43)
[2022-04-19] MEDS: DOCUSATE SODIUM 100 MG CAP PO SCH ×2 (09:43→19:47)
[2022-04-19] MEDS: BUMETANIDE 2 MG in SYRINGE 0 ML IV SCH ×2 (09:43→17:35)
[2022-04-19] MEDS: MAGNESIUM OXIDE 400 MG TAB PO SCH (09:43)
[2022-04-19] MEDS: SPIRONOLACTONE 25 MG TAB PO SCH ×2 (09:43→19:48)
[2022-04-19] MEDS: UMECLIDINIUM/VILANTEROL 62.5/25MCG 7 PUFFS/INHALER INH SCH (09:43)
[2022-04-19 09:46] LABS: Basophils # (auto) 0.01 K/uL (0-0.2); Basophils % (auto) 0.1 %; Eosinophils # (auto) 0.25 K/uL (0-0.5); Eosinophils % (auto) 2.1 %; Hematocrit (blood only) 27.9 % (42-52); Hemoglobin 8.1 g/dL (14.0-18.0); Immature Granulocytes # (auto) 0.02 K/uL (0.00-0.02); Immature Granulocytes % (auto) 0.2 %; Lymphocytes # (auto) 0.52 K/uL (1.2-3.4); Lymphocytes % (auto) 4.4 %; Mean Corpuscular Hemoglobin 27.6 pg (25-34); Mean Corpuscular Volume 95.2 fL (80-100); Monocytes # (auto) 0.45 K/uL (0.11-0.59); Monocytes % (auto) 3.8 %; Neutrophils # (auto) 10.66 K/uL (1.4-6.5); Neutrophils % (auto) 89.4 %; Platelet Count 365 K/uL (130-400); RDW Coefficient of Variation 16.1 % (11.5-14.5); RDW Standard Deviation 56.5 fL (36.4-46.3); Red Blood Count 2.93 M/uL (4.7-6.1); White Blood Count 11.91 K/uL (4.8-10.8)
[2022-04-19 10:04] LABS: BUN Creatinine Ratio 33.7 (10-20); Calcium 9.8 mg/dl (8.5-10.1); Creatinine Clr Calc Pharmacy 66.2 ml/min; Est GFR (Non-African American) 79.4 ml/min; Potassium 4.3 mmol/L (3.5-5.1)
[2022-04-19] MEDS ORDERED: busPIRone 5 MG TAB PO STA (15:59)
[2022-04-19] MEDS: AMOXICILLIN/CLAVULANATE 875 MG TAB PO SCH (17:58)
[2022-04-19] MEDS: ATORVASTATIN 40 MG TAB PO SCH (19:46)
[2022-04-19] MEDS: ASPIRIN 81 MG ECTAB PO SCH (19:46)
[2022-04-19] MEDS ORDERED: MELATONIN 3 MG TAB PO SCH (21:00)
--- NOTE | 2022-04-19 21:38 | Hospitalist Progress Note ---
Date of Service April 19, 2022 Assessment & Plan (1) Acute on chronic respiratory failure with hypoxia and hypercapnia: Plan: Secondary to taking himself off oxygen on morning of admission. Low suspicion of acute COPD exacerbation and has not required steroids to recove r. Concerning leukocytosis and fever for acute bacterial pneumonia although his CXR remains somewhat stable. Flu, RSV and COVID PCR negative. Procalcitonin 0.95 Blood cultures negative after 48 hours therefore switched to Augmentin/doxy to finish course of antibiotics for PNA Flutter valve Incentive spirometry Aspiration precautions BiPAP HS and while napping. Otherwise aim O2 sats 88-92% to avoid worsening CO2 retention (even if this is below his usual home 4LPM O2) (2) Bacterial pneumonia: Plan: CXR with baseline atelectasis however difficult to explain WBC and fever without this diagnosis. Switch to augmentin doxy as above to finish course Vancomycin d/c as MRSA nasal swab negative Sputum culture pending (3) Tobacco use disorder: Plan: No cigarettes since last admission - confirmed with his (although she had to intercept a packet he tried to get through a friend). Continue to encourage cessation Buspar added PRN to help with anxiety as he uses cigarettes/nicotine to help with this (4) COPD (chronic obstructive pulmonary disease): Plan: No acute exacerbation suspected Continue duonebs QID PRN (5) Chronic diastolic (congestive) heart failure: Plan: Acute on chronic Weight appears to be up 5kg from baseline. Bumex 2mg IV IV BID17, can likely be discharged on increased Bumex dosing of 3mg PO BID Continue spironolactone 25mg PO BID Will continue until significant Cr bump Low Na, fluid restricted 1800ml diet (6) Hypertension: Plan: Continue Bumex and spironolactone as above (7) GERD (gastroesophageal reflux disease): Plan: Continue pantoprazole 40mg PO BID (8) Iron deficiency anemia: Plan: Transferrin sats improved to 5% Start Venofer 300mg IV tomorrow Hold Lovenox Repeat CBC in AM FOB Plan: VTE Prophylaxis - Hold further lovenox given drop in Hgb, required 13 units of blood since 2018 Diet - heart healthy, low Na, fluid restrict 1800ml Disposition - continue on med/surg, possible discharge tomorrow pending IV iron and PT/OT evals Admission and Anticipated Discharge Date Admission Date: April 17, 2022 Subjective Patient feels at his baseline shortness of breath and mentation. Asking about going home. Ok to stay for another day for change of antibiotics and IV iron tomorrow. Updated his over the phone. Ongoing concerns about his safety but patient has capacity when he is on the right amount of oxygen. Review of Systems Review of Systems: All systems reviewed & are unremarkable except as noted in Subjective Physical Exam Constitutional: well developed; + not well nourished and no acute distress ENMT: external ear and nose normal, oropharynx normal Neck: trachea midline, no thyromegaly Respiratory: normal respiratory effort Auscultation: + diminished lung sounds (bibasal); no crackles and no wheezes Cardiovascular: Rate/Rhythm: regular rate and regular rhythm Heart Sounds: no murmur Extremities: normal capillary refill Gastrointestinal (Abdomen): normal bowel sounds, soft, nontender, no hepatosplenomegaly Skin: no rashes, warm and dry Neurologic: moves all extremities and awake; not confused Psychiatric: A+Ox3, euthymic affect Results & Data Results & Data ([facility]) Vital Signs (Past 12 Hours) Vital Signs Temp Pulse Resp BP Pulse Ox 04/19/22 14:29 36.6 C 78 16 144/57 H 95 PG Care Time/CCT Total # of Minutes Spent Total Time Spent with Patient: Total time spent is greater than 50% in coordination of care (as documented) at patient's floor/unit and/or counseling patient: Coding Level of Care Code 82390 Subseq Hosp Care Lvl 2 Diagnoses Acute on chronic respiratory failure with hypoxia and hypercapnia J96.21; J96.22 Bacterial pneumonia J15.9 Tobacco use disorder F17.200 COPD (chronic obstructive pulmonary disease) J44.1 COPD type: COPD with acute exacerbation Chronic diastolic (congestive) heart failure I50.32 Hypertension I10 GERD (gastroesophageal reflux disease) K21.9 Iron deficiency anemia D50.9 (1) COPD (chronic obstructive pulmonary disease) COPD type: COPD with acute exacerbation Qualified Code(s): J44.1 - Chronic obstructive pulmonary disease with (acute) exacerbation
[2022-04-20] MEDS ORDERED: MELATONIN 3 MG TAB PO ONE (00:30)
[2022-04-20] MEDS: DOXYCYCLINE HYCLATE 100 MG CAP PO SCH (06:19)
[2022-04-20 07:02] LABS: Basophils # (auto) 0.01 K/uL (0-0.2); Basophils % (auto) 0.1 %; Eosinophils # (auto) 0.27 K/uL (0-0.5); Eosinophils % (auto) 3.5 %; Hematocrit (blood only) 26.5 % (42-52); Immature Granulocytes # (auto) 0.02 K/uL (0.00-0.02); Immature Granulocytes % (auto) 0.3 %; Lymphocytes # (auto) 0.44 K/uL (1.2-3.4); Lymphocytes % (auto) 5.6 %; Mean Corpuscular Hemoglobin 28.7 pg (25-34); Mean Corpuscular Hgb Conc 30.2 g/dL (32-36); Mean Platelet Volume 9.5 fL (7.4-10.4); Monocytes # (auto) 0.54 K/uL (0.11-0.59); Monocytes % (auto) 6.9 %; Neutrophils # (auto) 6.52 K/uL (1.4-6.5); Neutrophils % (auto) 83.6 %; Platelet Count 370 K/uL (130-400); RDW Coefficient of Variation 15.5 % (11.5-14.5); RDW Standard Deviation 53.8 fL (36.4-46.3); Red Blood Count 2.79 M/uL (4.7-6.1)
[2022-04-20 07:29] LABS: BUN Creatinine Ratio 34.4 (10-20); Calcium 9.9 mg/dl (8.5-10.1); Creatinine Clr Calc Pharmacy 67.6 ml/min; Est GFR (African American) 94.5 ml/min; Est GFR (Non-African American) 81.5 ml/min; Potassium 4.6 mmol/L (3.5-5.1)
[2022-04-20] MEDS: MULTIVITAMIN TAB PO SCH (08:21)
[2022-04-20] MEDS: CALCIUM CARBONATE 500 MG CHEWABLE TAB PO SCH (08:21)
[2022-04-20] MEDS: MAGNESIUM OXIDE 400 MG TAB PO SCH (08:21)
[2022-04-20] MEDS: ESCITALOPRAM OXALATE 10 MG TAB PO SCH (08:21)
[2022-04-20] MEDS: FLUTICASONE FUROATE 100MCG 14 PUFFS/INHALER INH SCH (08:22)
[2022-04-20] MEDS: UMECLIDINIUM/VILANTEROL 62.5/25MCG 7 PUFFS/INHALER INH SCH (08:22)
[2022-04-20] MEDS: SPIRONOLACTONE 25 MG TAB PO SCH (08:22)
[2022-04-20] MEDS: AMOXICILLIN/CLAVULANATE 875 MG TAB PO SCH (08:22)
[2022-04-20] MEDS: PANTOprazole 40 MG TAB PO SCH (08:22)
[2022-04-20] MEDS: BUMETANIDE 2 MG in SYRINGE 0 ML IV SCH (08:23)
[2022-04-20] MEDS: DOCUSATE SODIUM 100 MG CAP PO SCH (08:26)
[2022-04-20] MEDS ORDERED: IRON SUCROSE 300 MG in SODIUM CHLORIDE 0.9% 250 ML IV SCH (09:00)
[2022-04-20 09:50] LABS: Estimated Average Glucose 123 mg/dl; Hemoglobin A1C 5.9 % (4.5-5.6)
--- NOTE | 2022-04-20 13:06 | Discharge Summary ---
Date of Service April 20, 2022 Admission HPI Per Admitting Provider Richard Lobo is a 76 year old male who presents to the ER with shortness of breath and hypoxia. Unable to get much history from the patient. He appears similar to when I discharged his on April 03 with regards to his chronic shortness of breath. On discussion with his he has ongoing intermittent confusion. He took his oxygen off last night and was using a portable urinal this morning. She has taken over his usual medications however he has been taking his prednisone wrong since discharge as he was supposed to reduce by one pill a day but instead she has only been giving him one pill a day (5mg dose) therefore he has still been taking these. He has not having cigarettes since discharge however not through lack of trying as apparently his had to intercept a packet that he asked a friend to buy. He has not been wearing his non-invasive ventilation at night as it is upstairs and he has only been able to sleep in the recliner downstairs. His is again worried about him returning home due to his ongoing confusion (likely related to hypoxia when he removes his oxygen or hypercapnia when he is on too much). In the ER he does have a fever of 38.2 C however he denies any fevers or chills at home. He denies any worsening cough or shortness of breath. He does note worsening orthopnea however. He was started on vancomycin and Zosyn to cover for hospital-acquired pneumonia. His chest x-ray appears similar to his baseline. WBC 15.68 which is mainly neutrophilia. Procalcitonin is pending at this time. Principal Diagnosis Acute respiratory failure with hypoxia adn hypercapnia - due to taking off oxygen at home and pneumonia Bacterial pneumonia Acute congestive heart failure Discharge Exam Constitutional well developed; + not well nourished and no acute distress ENMT external ear and nose normal, oropharynx normal Neck trachea midline, no thyromegaly Respiratory normal respiratory effort Auscultation: + diminished lung sounds (bibasal); no crackles and no wheezes Cardiovascular Rate/Rhythm: regular rate and regular rhythm Heart Sounds: no murmur Extremities: normal capillary refill Gastrointestinal (Abdomen) normal bowel sounds, soft, nontender, no hepatosplenomegaly Skin no rashes, warm and dry Neurologic moves all extremities and awake; not confused Psychiatric A+Ox3, euthymic affect Discharge Data Allergies Allergy/AdvReac Type Severity Reaction Status Date / Time No Known Allergies Allergy Verified 04/17/22 17:23 Consultations 04/17/22 17:48 ED Decision to Admit Stat Hospital Course (1) Acute on chronic respiratory failure with hypoxia and hypercapnia: You were admitted to from April 17 - 2021 due to shortness of breath and low oxygen levels. Suspect this was due to you getting confused and taking off your oxygen at home and it taking some time to come back up. You were NOT treated for a COPD exacerbation on this occasion and not further steroids are required but your oxygen levels returned to their baseline. You were also noted to have an elevated white blood count however and were thus treated for a bacterial pneumonia. This may have also contributed towards your confusion. You were initially treated with broad spectrum antibiotics and will be switched to Augmentin and doxycycline on discharge to finish a total 10 day course (8 further days). Recommend instead of concentrating on the number of liters of oxygen or switching from using it your nose or mouth recommend using your pulse oximeter to try to aim your oxygen level between 88-92% as best you can. This is your oxygen saturation aim at rest and on exertion. You currently require about 3 liter per minute oxygen at rest and 5-6L on exertion however this may change with time and the oxygen saturations are the more important aim. Please adjust both your oxygen concentrator or cylinders to aim for this oxygen saturation. Too little oxygen can make you confused as you will not be getting enough for your brain cells to work properly. To much oxygen is also bad as your carbon dioxide levels will increase which can also make you confused. Due to prior iron deficiency anemia, you received another intravenous dose of iron. Please follow up with your primary care physician to determine if you need ongoing doses of this. You were also treated with increased Bumex dosing during your inpatient stay. Please continue on your usual dose of this 4mg in the morning and 2mg at lunch to stop your fluid building back up. Please reduce your potassium to just once a day as prescribed due to high levels of potassium during recent stays. BuSpar has been started to use as needed for your anxiety. (2) Bacterial pneumonia: (3) Tobacco use disorder: (4) COPD (chronic obstructive pulmonary disease): (5) Chronic diastolic (congestive) heart failure: (6) Hypertension: (7) GERD (gastroesophageal reflux disease): (8) Iron deficiency anemia: Total Time Total Time Spent Total Time Spent (In Minutes): 45 Discharge Plan Discharge Items Patient Disposition: Home - Home Health Services Reason For Visit: ACUTE RESPIRATORY FAILURE WITH HYPOXIA Discharge Diagnosis: Hypoxia (low oxygen levels) - due to taking off oxygen at home and pneumonia Bacterial pneumonia Acute congestive heart failure Activity: Resume your previous activity Non-emergency contact: Primary Care Provider Call non-emergency contact if: you have any medication questions and your symptoms worsen Follow-up/Referrals: Robert Owen MD [Primary Care Provider] - Diet: Heart Healthy and Low Sodium (2gm) Addtl Attending Provider Instructions: You were admitted to from April 17 - 2021 due to shortness of breath and low oxygen levels. Suspect this was due to you getting confused and taking off your oxygen at home and it taking some time to come back up. You were NOT treated for a COPD exacerbation on this occasion and not further steroids are required but your oxygen levels returned to their baseline. You were also noted to have an elevated white blood count however and were thus treated for a bacterial pneumonia. This may have also contributed towards your confusion. You were initially treated with broad spectrum antibiotics and will be switched to Augmentin and doxycycline on discharge to finish a total 10 day course (8 further days). Recommend instead of concentrating on the number of liters of oxygen or switching from using it your nose or mouth recommend using your pulse oximeter to try to aim your oxygen level between 88-92% as best you can. This is your oxygen saturation aim at rest and on exertion. You currently require about 3 liter per minute oxygen at rest and 5-6L on exertion however this may change with time and the oxygen saturations are the more important aim. Please adjust both your oxygen concentrator or cylinders to aim for this oxygen saturation. Too little oxygen can make you confused as you will not be getting enough for your brain cells to work properly. To much oxygen is also bad as your carbon dioxide levels will increase which can also make you confused. Due to prior iron deficiency anemia, you received another intravenous dose of iron. Please follow up with your primary care physician to determine if you need ongoing doses of this. You were also treated with increased Bumex dosing during your inpatient stay. Please continue on your usual dose of this 4mg in the morning and 2mg at lunch to stop your fluid building back up. Please reduce your potassium to just once a day as prescribed due to high levels of potassium during recent stays. BuSpar has been started to use as needed for your anxiety. Kind regards, Dr Miguel Tello Pending Studies at Discharge: Yes (final blood cultures) Stand-Alone Forms: My [facility], Smoking Cessation Medications and DC Order Prescriptions: New amoxicillin-pot clavulanate 875-125 mg tablet 1 tab PO BID 8 Days Qty: 16 RF: 0 doxycycline hyclate 100 mg tablet 100 mg PO BID 8 Days Qty: 16 RF: 0 buspirone 5 mg Tablet 5 mg PO TID PRN (Reason: anxiety) Qty: 30 RF: 0 Continued (DME) Oxygen Home Liters Per Minute See Rx Instructions .Route Qty: 1 RF: 0 docusate sodium 100 mg capsule 100 mg PO BID RF: 0 nicotine (polacrilex) 2 mg gum 2 mg buccal Q2H PRN (Reason: nicotine cravings) Qty: 120 RF: 3 escitalopram oxalate 10 mg tablet 10 mg PO DAILY RF: 0 magnesium 250 mg tablet 250 mg PO DAILY RF: 0 atorvastatin 80 mg tablet 80 mg PO QPM RF: 0 multivitamin [Multiple Vitamins] Tablet 1 tab PO DAILY RF: 0 ferrous sulfate 325 mg (65 mg iron) tablet 65 mg PO BID RF: 0 acetaminophen 325 mg capsule 650 mg PO QID PRN (Reason: Pain) RF: 0 spironolactone 25 mg tablet 25 mg PO BID 30 Days Qty: 60 RF: 3 bumetanide 2 mg tablet See Rx Instructions PO BID RF: 0 Trelegy Ellipta 100-62.5-25 mcg blister with device 1 inh inhalation DAILY Qty: 3 RF: 1 albuterol sulfate 90 mcg/actuation HFA aerosol inhaler 2 puff inhalation Q6H PRN (Reason: Shortness Of Breath Or Wheezing) Qty: 18 RF: 3 (DME) Flutter Valve Device See Rx Instructions .MEDSUPPLY Qty: 1 RF: 0 azelastine 137 mcg (0.1 %) aerosol,spray 2 spray intranasal DAILY Qty: 30 RF: 3 aspirin [Adult Low Dose Aspirin] 81 mg tablet,delayed release (DR/EC) 81 mg PO QPM RF: 0 metolazone 2.5 mg Tablet 2.5 mg PO DIRECTED PRN (Reason: WT GAIN) RF: 0 calcium 300 mg Tablet,Chewable 600 mg PO BID RF: 0 pantoprazole 40 mg tablet,delayed release (DR/EC) 40 mg PO BID 30 Days Qty: 60 RF: 0 ipratropium-albuterol 0.5 mg-3 mg(2.5 mg base)/3 mL solution for nebulization 3 ml inhalation Q6H PRN (Reason: wheezing) Qty: 180 RF: 0 azithromycin 250 mg tablet 250 mg PO 3XWK RF: 0 Changed potassium chloride 20 mEq tablet extended release 20 meq PO QAM Qty: 0 RF: 0 Discharge Orders: Discharge Order (Routine); Ordered 04/20/22 Ordered By: Miguel Tello Admission Data Admit Date/Time: 04/17/22 18:12 Attending Provider: Miguel Tello Admit Provider: Miguel Tello Primary Care Provider: Robert Owen Other Providers: Miguel Tello ; [facility] Other Interventions: Discharge Summary Assessment (RN) Last Done: 04/20/22 13:02 Coding Diagnoses Acute on chronic respiratory failure with hypoxia and hypercapnia J96.21; J96.22 Bacterial pneumonia J15.9 Tobacco use disorder F17.200 COPD (chronic obstructive pulmonary disease) J44.1 COPD type: COPD with acute exacerbation Chronic diastolic (congestive) heart failure I50.32 Hypertension I10 GERD (gastroesophageal reflux disease) K21.9 Iron deficiency anemia D50.9
== END 2022-04-20 14:09 | disposition home health service (06) | DRG 193 ==
LOC: ED 15:10 → 2S 18:12 → 3N 04-18 19:14

== ENCOUNTER 2022-05-19 11:25 | Inpatient (IN) ==
--- NOTE | 2022-05-19 12:02 | Electrocardiogram Report ---
Test Reason : Blood Pressure : / mmHG Vent. Rate : 085 BPM Atrial Rate : 085 BPM P-R Int : 210 ms QRS Dur : 130 ms QT Int : 392 ms P-R-T Axes : 073 -27 051 degrees QTc Int : 466 ms Sinus rhythm with 1st degree A-V block Non-specific intra-ventricular conduction block Abnormal ECG When compared with ECG of 17-APR-2022 15:19, No significant change was found Confirmed by Zac Burgess ([id number]) on 05/19/2022 12:02:21 PM Referred By: Confirmed By:Zac Burgess
--- NOTE | 2022-05-19 12:09 | Emergency Department Note ---
Impression & Plan Chronic diastolic (congestive) heart failure, Acute on chronic respiratory failure with hypoxia and hypercapnia, Anemia ED Provider Note NAME: TIEN PIERCE AGE: 76 SEX: M ARRIVES VIA: Walk-In INFORMANT: Patient ED PROVIDER(S): Kurt Lugo MD CHIEF COMPLAINT: SOB, CHF, referred. PLAN: Disposition: Admit MEDICAL DECISION MAKING: The patient is a pleasant 76-year-old gentleman with a past medical history of chronic diastolic heart failure, aortic stenosis status post TAVR (04/2020), COPD, anemia, ABDIEL who presents to emergency department referred from CHF clinic with concern for decompensated diastolic heart failure with need for admission for IV diuresis and close monitoring of the setting of the patient having increased weight gain, 10 pounds above his baseline over the past couple of days where he reports that he has felt increasingly short of breath and now is using 6 L of oxygen where his baseline is 5 L. Patient reports he has had new worsening bilateral lower extremity swelling as well. He denies fevers, chills, cough, nausea, vomiting, diarrhea or urinary symptoms. He reports he is not on anticoagulation. He admits that he is not that ambulatory at home and sits in his recliner most of the time. On arrival the patient is acute on chronically ill-appearing, mildly dyspneic but no acute distress, afebrile with stable vital signs and O2 saturation mid 90s on 6 L nasal cannula. EKG is without overt acute ischemia and similar to prior. Chest x-ray straits multifocal airspace opacities that have progressed from prior though have been present for at least the past month. Moderate pulmonary edema and bilateral pleural effusions left greater than right. WBC within normal limits. H/H 7.2/27.5 down from 8/26.5 and occurs in the setting of the patient's hypervolemia where he is 10 pounds above dry weight. Platelets 430K, nonspecific. Chemistry with bicarb of 43 approximately prior v alues in the setting of chronic respiratory failure with hypercapnia. Creatinine 1.25 at patient's baseline. High-sensitivity troponin 16.9, within normal limits. BNP 400 has doubled since last month. Procalcitonin is undetectable. CT of the chest was performed and was negative for PE. Interstit ial thickening and alveolar pulmonary edema further characterized. Again seen is tracheal bronchial secretions with mucous plugging and bibasilar opacities that are nonspecific. Left greater than right pleural effusion seen. Mediastinal and hilar lymphadenopathy has progressed from prior. The patient agrees with plan for admission. 4mg IV Bumex ordered. RU Helms hospitalist to evaluate the patient for admission. Triage Nursing notes reviewed and agree them. Prior medical records reviewed Vital Signs: reviewed and remarkable for no significant abnormalities Differential diagnosis: Reactive airway disease, pneumonia, pneumothorax, COPD, CHF, infections, cardiac ischemia, pulmonary embolism, musculoskeletal, gastrointestinal, as well as other pathologies. ER treatment provided: See below. Diagnostics interpreted by me: ECG: Sinus rhythm with first-degree AV block, 85 bpm, no ectopy. nonspecific intraventricular conduction block, no overt acute ischemia. QTC 466, QRS 130. Similar to previous EKG. Cardiac Monitoring: An order for continuous cardiac monitoring was placed and demonstrated Sinus rhythm with first-degree AV block, 85 bpm, no ectopy. Laboratory studies: See below Imaging studies: See below Consultation(s): RU Helms hospitalist to evaluate the patient for admission. HPI: The patient is a pleasant 76-year-old gentleman with a past medical history of chronic diastolic heart failure, aortic stenosis status post TAVR (04/2020), COPD, anemia, ABDIEL who presents to emergency department referred from CHF clinic with concern for decompensated diastolic heart failure with need for admission for IV diuresis and close monitoring of the setting of the patient having increased weight gain, 10 pounds above his baseline over the past couple of days where he reports that he has felt increasingly short of breath and now is using 6 L of oxygen where his baseline is 5 L. Patient reports he has had new worsening bilateral lower extremity swelling as well. He denies fevers, chills, cough, nausea, vomiting, diarrhea or urinary symptoms. He reports he is not on anticoagulation. He admits that he is not that ambulatory at home and sits in his recliner most of the time. ROS: See above HPI for pertinent positives & negatives. A total of 10 systems reviewed and were otherwise negative. VITALS:See Below PHYSICAL EXAMINATION: GENERAL: Awake, alert, acute on chronically-appearing, in no distress HENT: Normocephalic, atraumatic. Oropharynx unremarkable. EYES: Normal conjunctiva. Sclera non-icteric. NECK: Supple. No nuchal rigidity. FROM. No JVD. RESPIRATORY: Diminished breath sounds at the bases with scant intermittent wheeze. CARDIAC: Regular rate, normal rhythm. Extremities warm and well perfused. Pulses equal. 3/6 systolic murmur. ABDOMEN: Soft, non-distended. No tenderness to palpation. No rebound or guarding. No masses. RECTAL: Deferred. MUSCULOSKELETAL: Chest examination reveals no tenderness. The back is symmetrical on inspection without obvious abnormality. There is no CVA te nderness to palpation. No joint edema. LOWER EXTREMITIES: Symmetric 2+ pitting edema of bilateral lower legs with scant erythema and mild tenderness. NEURO: Normal sensorium. No sensory or motor deficits noted. SKIN: No rash or jaundice noted. Kurt Lugo MD Past Med/Surg History Medical History Acute GI bleeding Acute hyperglycemia Anemia Anemia Anemia Aortic stenosis severe asymptomatic Elevated troponin I level GERD (gastroesophageal reflux disease) History of GI bleed Hypertension Hypertension Hypoxia Hypoxia Metabolic alkalosis with respiratory acidosis SOB (shortness of breath) Tobacco use disorder Uremia Surgical History History of left-sided carotid endarterectomy 2014 S/P appendectomy Family History Father Hypertension Mother Hypotension Breast cancer Other No family history of adverse response to anesthesia No family history of bleeding disorder Social History Smoking Status: Former smoker Tobacco Type: Cigarettes packs per day: 1; Second Hand Exposure: No; Hx Alcohol Use: Yes Alcohol type: hard liquor Alcohol Intake Frequency: Monthly or Less Alcohol Intake Frequency Comment: 1 bottle of Manny Dupree a month Hx Substance Use: No Preferred Language: Mongolian Communication Ability: Effective Visual Impairment: No Limitations Bleacher Operator Required: No Beliefs That Will Affect Care: None marital status: Current Living Situation: Spouse and Family Current Living Situation Comment: house current occupational status: retired Feels Safe at Home: Yes Safety Concerns: Feels Safe At This Time Assistive Devices: BiPap, Denture - Upper, Denture - Lower and Oxygen - Continuous Allergies Allergies Allergy/AdvReac Type Severity Reaction Status Date / Time No Known Allergies Allergy Verified 05/04/22 11:55 Home Meds Home Medications Medication Instructions Recorded Confirmed atorvastatin 80 mg tablet 80 mg PO QPM 05/20/20 05/19/22 magnesium 250 mg tablet 250 mg PO DAILY 05/20/20 05/19/22 multivitamin (Multiple Vitamins) 1 tab PO DAILY 05/21/20 05/19/22 docusate sodium 100 mg capsule 100 mg PO BID 06/10/20 05/19/22 acetaminophen 325 mg capsule 650 mg PO QID PRN 06/11/20 05/19/22 ferrous sulfate 325 mg (65 mg 65 mg PO BID tab 02/27/21 05/19/22 iron) tablet bumetanide 2 mg tablet See Rx Instructions PO BID tab 02/12/22 05/19/22 aspirin 81 mg tablet,delayed 81 mg PO QPM 03/19/22 05/19/22 release (Adult Low Dose Aspirin) calcium 300 mg chewable tablet 600 mg PO BID 03/22/22 05/19/22 escitalopram oxalate 10 mg tablet 20 mg PO DAILY tab 05/01/22 05/19/22 Previous Rx's Medication Instructions Recorded spironolactone 25 mg tablet 25 mg PO BID 30 Days #60 tab 09/30/20 nicotine (polacrilex) 2 mg gum 2 mg BUCCAL Q2H PRN #120 ea 09/30/21 azelastine 137 mcg (0.1 %) nasal 2 spray INTRANASAL DAILY #30 ml 03/10/22 spray aerosol pantoprazole 40 mg tablet,delayed 40 mg PO BID 30 Days #60 tab 03/24/22 release albuterol sulfate 90 mcg/actuation 2 puff INHALATION Q6H PRN #18 g 03/27/22 aerosol inhaler fluticasone fur. 100 mcg-umeclid 1 inh INHALATION DAILY #3 inhaler 03/27/22 62.5 mcg-vilant 25 mcg inhalat.powder (Trelegy Ellipta) ipratropium 0.5 mg-albuterol 3 mg 3 ml INHALATION Q6H PRN #180 ml 04/03/22 (2.5 mg base)/3 mL nebulization soln potassium chloride 20 mEq 20 meq PO QAM #0 tab 04/20/22 tablet,extended release buspirone 10 mg tablet 10 mg PO TID #90 tab 05/01/22 metolazone 2.5 mg tablet 2.5 mg PO DIRECTED PRN #30 tab 05/04/22 Results & Data (ED) Vital Signs Vital Signs - 24 hr 05/19/22 11:26 05/19/22 11:42 05/19/22 11:48 Temperature 35.8 C L Temperature Source Temporal Artery Scan Pulse Rate 85 85 78 Pulse Rate [Apical] 76 Pulse Rate from SpO2 Sensor 83 Pulse Rhythm Regular Respiratory Rate 22 23 20 Respiratory Effort / Characteristics Non-Labored Spontaneous Respiratory Depth Normal Respiratory Pattern Regular Blood Pressure 131/53 L Blood Pressure [Left Arm] 129/47 L Blood Pressure Mean 79 Blood Pressure Mean [Left Arm] 74 Blood Pressure Position Sitting Blood Pressure Position [Left Arm] Semi-fowlers Pulse Oximetry 88 L 94 100 Oxygen Delivery Method Nasal Cannula Nasal Cannula Room Air Oxygen Flow Rate 6 6 6 Sepsis Recent Fever Within 48 Hours No Sepsis New/Unexplained Change in Mental Status No Sepsis Action Taken by Nursing No Action Required 05/19/22 12:00 05/19/22 12:30 05/19/22 13:00 Temperature Temperature Source Pulse Rate 77 75 76 Pulse Rate [Apical] Pulse Rate from SpO2 Sensor 76 76 74 Pulse Rhythm Respiratory Rate 23 19 22 Respiratory Effort / Characteristics Respiratory Depth Respiratory Pattern Blood Pressure 131/48 L 138/60 141/79 H Blood Pressure [Left Arm] Blood Pressure Mean 75 86 99 Blood Pressure Mean [Left Arm] Blood Pressure Position Blood Pressure Position [Left Arm] Pulse Oximetry 100 95 100 Oxygen Delivery Method Oxygen Flow Rate Sepsis Recent Fever Within 48 Hours Sepsis New/Unexplained Change in Mental Status Sepsis Action Taken by Nursing 05/19/22 13:45 05/19/22 14:00 Temperature Temperature Source Pulse Rate Pulse Rate [Apical] Pulse Rate from SpO2 Sensor 91 H 76 Pulse Rhythm Respiratory Rate Respiratory Effort / Characteristics Respiratory Depth Respiratory Pattern Blood Pressure 144/45 H Blood Pressure [Left Arm] Blood Pressure Mean 78 Blood Pressure Mean [Left Arm] Blood Pressure Position Blood Pressure Position [Left Arm] Pulse Oximetry 96 100 Oxygen Delivery Method Oxygen Flow Rate Sepsis Recent Fever Within 48 Hours Sepsis New/Unexplained Change in Mental Status Sepsis Action Taken by Nursing Laboratory Data Attestation: I reviewed the patient's lab results. Result diagrams: 05/19/22 11:47 05/19/22 11:47 Lab Results 05/19/22 05/19/22 05/19/22 Range/Units 11:43 11:47 11:47 WBC 6.97 (4.8-10.8) K/uL RBC 2.60 L (4.7-6.1) M/uL Hgb 7.2 L (14.0-18.0) g/dL Hct 27.5 L (42-52) % MCV 105.8 H (80-100) fL MCH 27.7 (25-34) pg MCHC 26.2 L (32-36) g/dL Plt Count 436 H (130-400) K/uL Immature Gran % (Auto) 0.1 % Neut % (Auto) 83.7 % Lymph % (Auto) 11.8 % [place] % (Auto) 2.7 % Eos % (Auto) 1.4 % Baso % (Auto) 0.3 % Reticulocyte % (Auto) (0.5-2.0) % Neut # (Auto) 5.83 (1.4-6.5) K/uL Lymph # (Auto) 0.82 L (1.2-3.4) K/uL [place] # (Auto) 0.19 (0.11-0.59) K/uL Eos # (Auto) 0.10 (0-0.5) K/uL Baso # (Auto) 0.02 (0-0.2) K/uL Reticulocyte # (0.02-0.10) 10^6/uL Immature Gran # (Auto) 0.01 (0.00-0.02) K/uL Polychromasia 2+ Basophilic Stippling 1+ Anisocytosis Present Macrocytosis Present PT (9.0-12.0) Seconds INR (0.9-1.1) Sodium 137 (136-145) mmol/L Potassium 3.9 (3.5-5.1) mmol/L Chloride 89 L (98-107) mmol/L Carbon Dioxide 43 H* (21-32) mmol/L Anion Gap 5 (3-11) BUN 28 H (6-23) mg/dl Creatinine 1.25 (0.6-1.4) mg/dl Est Cr Clr Drug Dosing 55.3 ml/min Est GFR ( Amer) 63.5 ml/min Est GFR (Non-Af Amer) 54.8 ml/min BUN/Creatinine Ratio 22.4 H (10-20) Glucose 165 H (70-99(Fasting)) mg/dl Calcium 9.4 (8.5-10.1) mg/dl Phosphorus 3.2 (2.5-4.9) mg/dl Magnesium 2.5 H (1.7-2.4) mg/dl Iron (35-175) mcg/dl Transferrin (200-360) mg/dl Ferritin (8-388) ng/ml Total Bilirubin 0.4 (0.2-1.0) mg/dl AST 19 (13-39) U/L ALT 18 (7-52) U/L Alkaline Phosphatase 73 (34-104) U/L Troponin I High Sens 16.9 D (0-20) pg/ml B-Natriuretic Peptide (0-100) pg/ml Total Protein 6.5 (6.0-8.3) gm/dl Albumin 3.6 (3.4-5.0) gm/dl Globulin 2.9 (2.5-4.0) gm/dl Albumin/Globulin Ratio 1.2 (0.9-2) Lipase 45 (11-82) U/L Vitamin B12 (180-914) pg/ml Folate (>5.38) ng/ml Procalcitonin (0-0.5) ng/ml SARS-CoV-2, RNA, NAAT NEGATIVE (NEGATIVE) Blood Type Antibody Screen 05/19/22 05/19/22 05/19/22 Range/Units 11:47 11:47 12:33 WBC (4.8-10.8) K/uL RBC (4.7-6.1) M/uL Hgb (14.0-18.0) g/dL Hct (42-52) % MCV (80-100) fL MCH (25-34) pg MCHC (32-36) g/dL Plt Count (130-400) K/uL Immature Gran % (Auto) % Neut % (Auto) % Lymph % (Auto) % [place] % (Auto) % Eos % (Auto) % Baso % (Auto) % Reticulocyte % (Auto) (0.5-2.0) % Neut # (Auto) (1.4-6.5) K/uL Lymph # (Auto) (1.2-3.4) K/uL [place] # (Auto) (0.11-0.59) K/uL Eos # (Auto) (0-0.5) K/uL Baso # (Auto) (0-0.2) K/uL Reticulocyte # (0.02-0.10) 10^6/uL Immature Gran # (Auto) (0.00-0.02) K/uL Polychromasia Basophilic Stippling Anisocytosis Macrocytosis PT 11.4 (9.0-12.0) Seconds INR 1.1 (0.9-1.1) Sodium (136-145) mmol/L Potassium (3.5-5.1) mmol/L Chloride (98-107) mmol/L Carbon Dioxide (21-32) mmol/L Anion Gap (3-11) BUN (6-23) mg/dl Creatinine (0.6-1.4) mg/dl Est Cr Clr Drug Dosing ml/min Est GFR ( Amer) ml/min Est GFR (Non-Af Amer) ml/min BUN/Creatinine Ratio (10-20) Glucose (70-99(Fasting)) mg/dl Calcium (8.5-10.1) mg/dl Phosphorus (2.5-4.9) mg/dl Magnesium (1.7-2.4) mg/dl Iron (35-175) mcg/dl Transferrin (200-360) mg/dl Ferritin (8-388) ng/ml Total Bilirubin (0.2-1.0) mg/dl AST (13-39) U/L ALT (7-52) U/L Alkaline Phosphatase (34-104) U/L Troponin I High Sens (0-20) pg/ml B-Natriuretic Peptide 417 H (0-100) pg/ml Total Protein (6.0-8.3) gm/dl Albumin (3.4-5.0) gm/dl Globulin (2.5-4.0) gm/dl Albumin/Globulin Ratio (0.9-2) Lipase (11-82) U/L Vitamin B12 (180-914) pg/ml Folate (>5.38) ng/ml Procalcitonin < 0.05 (0-0.5) ng/ml SARS-CoV-2, RNA, NAAT (NEGATIVE) Blood Type Antibody Screen 05/19/22 05/19/22 05/19/22 Range/Units 12:33 12:33 12:33 WBC (4.8-10.8) K/uL RBC (4.7-6.1) M/uL Hgb (14.0-18.0) g/dL Hct (42-52) % MCV (80-100) fL MCH (25-34) pg MCHC (32-36) g/dL Plt Count (130-400) K/uL Immature Gran % (Auto) % Neut % (Auto) % Lymph % (Auto) % [place] % (Auto) % Eos % (Auto) % Baso % (Auto) % Reticulocyte % (Auto) (0.5-2.0) % Neut # (Auto) (1.4-6.5) K/uL Lymph # (Auto) (1.2-3.4) K/uL [place] # (Auto) (0.11-0.59) K/uL Eos # (Auto) (0-0.5) K/uL Baso # (Auto) (0-0.2) K/uL Reticulocyte # (0.02-0.10) 10^6/uL Immature Gran # (Auto) (0.00-0.02) K/uL Polychromasia Basophilic Stippling Anisocytosis Macrocytosis PT (9.0-12.0) Seconds INR (0.9-1.1) Sodium (136-145) mmol/L Potassium (3.5-5.1) mmol/L Chloride (98-107) mmol/L Carbon Dioxide (21-32) mmol/L Anion Gap (3-11) BUN (6-23) mg/dl Creatinine (0.6-1.4) mg/dl Est Cr Clr Drug Dosing ml/min Est GFR ( Amer) ml/min Est GFR (Non-Af Amer) ml/min BUN/Creatinine Ratio (10-20) Glucose (70-99(Fasting)) mg/dl Calcium (8.5-10.1) mg/dl Phosphorus (2.5-4.9) mg/dl Magnesium (1.7-2.4) mg/dl Iron 58 (35-175) mcg/dl Transferrin 269 (200-360) mg/dl Ferritin 29.9 (8-388) ng/ml Total Bilirubin (0.2-1.0) mg/dl AST (13-39) U/L ALT (7-52) U/L Alkaline Phosphatase (34-104) U/L Troponin I High Sens (0-20) pg/ml B-Natriuretic Peptide (0-100) pg/ml Total Protein (6.0-8.3) gm/dl Albumin (3.4-5.0) gm/dl Globulin (2.5-4.0) gm/dl Albumin/Globulin Ratio (0.9-2) Lipase (11-82) U/L Vitamin B12 (180-914) pg/ml Folate > 22.30 (>5.38) ng/ml Procalcitonin (0-0.5) ng/ml SARS-CoV-2, RNA, NAAT (NEGATIVE) Blood Type O Positive Antibody Screen NEGATIVE 05/19/22 05/19/22 Range/Units 12:33 12:33 WBC (4.8-10.8) K/uL RBC (4.7-6.1) M/uL Hgb (14.0-18.0) g/dL Hct (42-52) % MCV (80-100) fL MCH (25-34) pg MCHC (32-36) g/dL Plt Count (130-400) K/uL Immature Gran % (Auto) % Neut % (Auto) % Lymph % (Auto) % [place] % (Auto) % Eos % (Auto) % Baso % (Auto) % Reticulocyte % (Auto) 10.3 H (0.5-2.0) % Neut # (Auto) (1.4-6.5) K/uL Lymph # (Auto) (1.2-3.4) K/uL [place] # (Auto) (0.11-0.59) K/uL Eos # (Auto) (0-0.5) K/uL Baso # (Auto) (0-0.2) K/uL Reticulocyte # 0.24 H (0.02-0.10) 10^6/uL Immature Gran # (Auto) (0.00-0.02) K/uL Polychromasia Basophilic Stippling Anisocytosis Macrocytosis PT (9.0-12.0) Seconds INR (0.9-1.1) Sodium (136-145) mmol/L Potassium (3.5-5.1) mmol/L Chloride (98-107) mmol/L Carbon Dioxide (21-32) mmol/L Anion Gap (3-11) BUN (6-23) mg/dl Creatinine (0.6-1.4) mg/dl Est Cr Clr Drug Dosing ml/min Est GFR ( Amer) ml/min Est GFR (Non-Af Amer) ml/min BUN/Creatinine Ratio (10-20) Glucose (70-99(Fasting)) mg/dl Calcium (8.5-10.1) mg/dl Phosphorus (2.5-4.9) mg/dl Magnesium (1.7-2.4) mg/dl Iron (35-175) mcg/dl Transferrin (200-360) mg/dl Ferritin (8-388) ng/ml Total Bilirubin (0.2-1.0) mg/dl AST (13-39) U/L ALT (7-52) U/L Alkaline Phosphatase (34-104) U/L Troponin I High Sens (0-20) pg/ml B-Natriuretic Peptide (0-100) pg/ml Total Protein (6.0-8.3) gm/dl Albumin (3.4-5.0) gm/dl Globulin (2.5-4.0) gm/dl Albumin/Globulin Ratio (0.9-2) Lipase (11-82) U/L Vitamin B12 580 (180-914) pg/ml Folate (>5.38) ng/ml Procalcitonin (0-0.5) ng/ml SARS-CoV-2, RNA, NAAT (NEGATIVE) Blood Type Antibody Screen Administered Medications Albuterol (Albut/Ipratrop 3mg/0.5mg Neb 3 Ml Vial) 3 ml NEB QIDR [facility]; Protocol Stop: 06/18/22 17:57 Last Admin: 05/19/22 19:16 Dose: 3 ml Documented by: [id number] Admin: 05/19/22 19:16 Dose: Not Given Documented by: [id number] Aspirin (Aspirin 81 Mg Ectab) 81 mg PO QPM [facility] Stop: 06/18/22 20:59 Last Admin: 05/19/22 20:40 Dose: 81 mg Documented by: [id number] Atorvastatin Calcium (Atorvastatin 40 Mg Tab) 80 mg PO QPM [facility] Stop: 06/18/22 20:59 Last Admin: 05/19/22 19:38 Dose: 80 mg Documented by: [id number] Buspirone HCl (Buspirone 5 Mg Tab) 10 mg PO TID PRN PRN Reason: Anxiety Stop: 06/18/22 20:59 Last Admin: 05/19/22 21:10 Dose: 10 mg Documented by: [id number] Docusate Sodium (Docusate Sodium 100 Mg Cap) 100 mg PO BID [facility] Stop: 06/18/22 20:59 Last Admin: 05/19/22 19:39 Dose: 100 mg Documented by: [id number] Enoxaparin Sodium (Enoxaparin Inj 40 Mg/0.4 Ml Syr) 40 mg SQ QPM [facility] Stop: 06/18/22 20:59 Last Admin: 05/19/22 21:09 Dose: 40 mg Documented by: [id number] Ferrous Sulfate (Ferrous Sulfate 325 Mg Tab) 325 mg PO Q2D@0900 [facility] Stop: 06/18/22 18:29 Last Admin: 05/19/22 19:39 Dose: 325 mg Documented by: [id number] Magnesium Oxide (Magnesium Oxide 400 Mg Tab) 400 mg PO Q2D@0900 [facility] Stop: 06/18/22 18:59 Last Admin: 05/19/22 19:39 Dose: 400 mg Documented by: [id number] Pantoprazole Sodium (Pantoprazole 40 Mg Tab) 40 mg PO BID [facility] Stop: 06/18/22 20:59 Last Admin: 05/19/22 19:37 Dose: 40 mg Documented by: [id number] Spironolactone (Spironolactone 25 Mg Tab) 25 mg PO BID [facility] Stop: 06/18/22 20:59 Last Admin: 05/19/22 19:38 Dose: 25 mg Documented by: [id number] Discontinued Medications Bumetanide 4 mg/ Syringe 16 mls @ 4 mls/min IV ONE ONE Stop: 05/19/22 12:46 Last Admin: 05/19/22 13:04 Dose: 4 mls/min Documented by: [id number] Ioversol (Optiray 320 125ml) 120 ml IV ONCE ONE Stop: 05/19/22 13:38 Last Admin: 05/19/22 13:37 Dose: 120 ml Documented by: [id number] Imaging Data Radiologist's Impression: Chest X-Ray 05/19/22 11:35 XR chest 1V portable CLINICAL HISTORY: Chest Pain TECHNIQUE: Single frontal radiograph of the chest was obtained. Comparison: Comparison is made to chest radiograph 04/17/2022 FINDINGS: No lines and tubes are seen. Cardiomegaly is noted. Calcified aortic knob is seen. Multifocal airspace opacities are seen. Interstitial thickening and prominent pulmonary vasculature are seen. Small bilateral pleural effusions are seen. IMPRESSION: 1. Multifocal airspace opacities are somewhat worsened from prior exam. These may represent atelectasis, pneumonia, and/or aspiration. 2. Moderate pulmonary edema. 3. Small bilateral pleural effusions. ACT 112: Negative or not required by law. Electronically signed by: Thomas Marin M.D. 05/19/2022 12:23 PM Chest CTA 05/19/22 12:42 CT angio chest PE protocol CT DOSE: 828.07 mGy.cm HISTORY: 76 years-old Male with SOB, edema, ro PE. Acute shortness of breath TECHNIQUE: Multiple CTA images of the chest were obtained after the intravenous administration of 120 ml Optiray. Coronal and sagittal MIPS were obtained from the axial data set and were submitted for review. All measurements were obtained according to NASCET criteria. A dose lowering technique was utilized adhering to the principles of ALARA. COMPARISON: Chest radiograph of same day, chest CT 03/22/2022 FINDINGS: CTA: Moderate to marked cardiomegaly. Extensive coronary artery calcifications. Mitral annular and thoracic aortic calcifications also noted with thoracic aortic endograft. No thoracic aortic aneurysm or dissection. There is patency of the imaged great vessels. Unremarkable pulmonary artery. The distal subsegmental branches within the lung bases are not well opacified and therefore are difficult to evaluate. No filling defects are identified to suggest thromboembolic disease. CT CHEST: 8 mm hypodense left thyroid nodule. Mediastinal and hilar lymphadenopathy is redemonstrated with subcarinal lymph nodes measuring up to 1.2 cm and right hilar lymph nodes measuring up to 1.6 cm. Adenopathy has progressed from the prior exam. There are small left greater than right pleural effusions. Pleural fluid tracks along the right major fissure. Pleural thickening with loculations left lung base is a chronic finding. Moderate pulmonary emphysema. Intralobular septal thickening is noted with intermixed groundglass opacities. Tracheobronchial secretions with bibasilar mucous plugging and mild bibasilar consolidation. Thickening of the adrenal glands suggestive of hyperplasia. No acute process of the imaged upper abdomen. Unremarkable soft tissues. There is no acute fracture. Degenerative changes of the shoulders and spine. Gynecomastia. IMPRESSION: 1. No pulmonary emboli identified. 2. Cardiomegaly with interstitial and alveolar pulmonary edema. 3. Tracheobronchial secretions with mucous plugging and bibasilar opacities suggestive of atelectasis versus pneumonitis. 4. Small left greater than right pleural effusions. Mild loculation with pleural thickening at the left lung base is unchanged. 5. Likely reactive mediastinal and hilar adenopathy, progressed from 03/22/2022. ACT 112: Negative or not required by law. The above report was generated using voice recognition software. It may contain grammatical, syntax or spelling errors. Electronically signed by: Volodymyr Ferrara M.D. 05/19/2022 1:55 PM Discharge Plan Visit Data Chief Complaint: Referred by Doctor Stated Complaint: REF BY DOC NEEDS BLOOD TREATMENT ED Provider: Kurt Lugo Discharge Problem: Chronic diastolic (congestive) heart failure, Acute on chronic respiratory failure with hypoxia and hypercapnia, Anemia Patient Disposition: Admitted As Inpatient Discharge Instructions Interventions: ED Discharge Assessment Last Done: 05/19/22 17:07
[2022-05-19 12:17] LABS: Hematocrit (blood only) 27.5 % (42-52); Hemoglobin 7.2 g/dL (14.0-18.0); Mean Corpuscular Hemoglobin 27.7 pg (25-34); Mean Corpuscular Hgb Conc 26.2 g/dL (32-36); Mean Corpuscular Volume 105.8 fL (80-100); Platelet Count 436 K/uL (130-400); White Blood Count 6.97 K/uL (4.8-10.8)
--- NOTE | 2022-05-19 12:24 | XRay Report ---
XR chest 1V portable CLINICAL HISTORY: Chest Pain TECHNIQUE: Single frontal radiograph of the chest was obtained. Comparison: Comparison is made to chest radiograph 04/17/2022 FINDINGS: No lines and tubes are seen. Cardiomegaly is noted. Calcified aortic knob is seen. Multifocal airspac e opacities are seen. Interstitial thickening and prominent pulmonary vasculature are seen. Small reina ateral pleural effusions are seen. IMPRESSION: 1. Multifocal airspace opacities are somewhat worsened from prior exam. These may represent atelecta sis, pneumonia, and/or aspiration. 2. Moderate pulmonary edema. 3. Small bilateral pleural effusions. ACT 112: Negative or not required by law. Electronically signed by: Thomas Marin M.D. 05/19/2022 12:23 PM
[2022-05-19 12:35] LABS: Albumin Globulin Ratio 1.2 (0.9-2); Albumin Level 3.6 gm/dl (3.4-5.0); BUN Creatinine Ratio 22.4 (10-20); Bilirubin,Total 0.4 mg/dl (0.2-1.0); Calcium 9.4 mg/dl (8.5-10.1); Creatinine Clr Calc Pharmacy 55.3 ml/min; Est GFR (African American) 63.5 ml/min; Est GFR (Non-African American) 54.8 ml/min; Globulin 2.9 gm/dl (2.5-4.0); Magnesium 2.5 mg/dl (1.7-2.4); Phosphorus 3.2 mg/dl (2.5-4.9); Potassium 3.9 mmol/L (3.5-5.1); Total Protein 6.5 gm/dl (6.0-8.3)
[2022-05-19 12:36] LABS: Anisocytosis Present; Basophilic Stippling 1+; Basophils # (auto) 0.02 K/uL (0-0.2); Basophils % (auto) 0.3 %; Eosinophils % (auto) 1.4 %; Immature Granulocytes # (auto) 0.01 K/uL (0.00-0.02); Immature Granulocytes % (auto) 0.1 %; Lymphocytes # (auto) 0.82 K/uL (1.2-3.4); Lymphocytes % (auto) 11.8 %; Macrocytosis Present; Monocytes # (auto) 0.19 K/uL (0.11-0.59); Monocytes % (auto) 2.7 %; Neutrophils # (auto) 5.83 K/uL (1.4-6.5); Neutrophils % (auto) 83.7 %; Polychromasia 2+; Troponin I High Sensitivity 16.9 pg/ml (0-20)
[2022-05-19 12:39] LABS: INR 1.1 (0.9-1.1); Prothrombin Time 11.4 Seconds (9.0-12.0)
[2022-05-19] MEDS ORDERED: BUMETANIDE 4 MG in SYRINGE 0 ML IV ONE (12:43)
[2022-05-19 13:07] LABS: Reticulocyte % 10.3 % (0.5-2.0); Reticulocytes # 0.24 10^6/uL (0.02-0.10)
[2022-05-19 13:33] LABS: Ferritin 29.9 ng/ml (8-388)
[2022-05-19] MEDS ORDERED: OPTIRAY 320 125ml IV ONE (13:37)
--- NOTE | 2022-05-19 13:56 | CT Scan Report ---
CT angio chest PE protocol CT DOSE: 828.07 mGy.cm HISTORY: 76 years-old Male with SOB, edema, ro PE. Acute shortness of breath TECHNIQUE: Multiple CTA images of the chest were obtained after the intravenous administration of 120 ml Optiray. Coronal and sagittal MIPS were obtained from the axial data set and were submitted for review. All measurements were obtained according to NASCET criteria. A dose lowering technique was u tilized adhering to the principles of ALARA. COMPARISON: Chest radiograph of same day, chest CT 03/22/2022 FINDINGS: CTA: Moderate to marked cardiomegaly. Extensive coronary artery calcifications. Mitral annular and thoraci c aortic calcifications also noted with thoracic aortic endograft. No thoracic aortic aneurysm or dis section. There is patency of the imaged great vessels. Unremarkable pulmonary artery. The distal subs egmental branches within the lung bases are not well opacified and therefore are difficult to evaluat e. No filling defects are identified to suggest thromboembolic disease. CT CHEST: 8 mm hypodense left thyroid nodule. Mediastinal and hilar lymphadenopathy is redemonstrated with subc arinal lymph nodes measuring up to 1.2 cm and right hilar lymph nodes measuring up to 1.6 cm. Adenopa thy has progressed from the prior exam. There are small left greater than right pleural effusions. Pl eural fluid tracks along the right major fissure. Pleural thickening with loculations left lung base is a chronic finding. Moderate pulmonary emphysema. Intralobular septal thickening is noted with intermixed groundglass opa cities. Tracheobronchial secretions with bibasilar mucous plugging and mild bibasilar consolidation. Thickening of the adrenal glands suggestive of hyperplasia. No acute process of the imaged upper abdo men. Unremarkable soft tissues. There is no acute fracture. Degenerative changes of the shoulders and spine. Gynecomastia. IMPRESSION: 1. No pulmonary emboli identified. 2. Cardiomegaly with interstitial and alveolar pulmonary edema. 3. Tracheobronchial secretions with mucous plugging and bibasilar opacities suggestive of atelectasis versus pneumonitis. 4. Small left greater than right pleural effusions. Mild loculation with pleural thickening at the le ft lung base is unchanged. 5. Likely reactive mediastinal and hilar adenopathy, progressed from 03/22/2022. ACT 112: Negative or not required by law. The above report was generated using voice recognition software. It may contain grammatical, syntax o r spelling errors. Electronically signed by: Volodymyr Ferrara M.D. 05/19/2022 1:55 PM
--- NOTE | 2022-05-19 14:14 | History & Physical Report ---
Date of Service May 19, 2022 Assessment & Plan (1) Acute on chronic respiratory failure with hypoxia and hypercapnia: Plan: Multifactorial with mucus plugging but also significant pulmonary edema. He is currently back to his baseline which suggests the former or just his exertion was the cause of his hypoxia at his clinic appointment. Incentive spirometer, duonebs and flutter valve CHF treatment as below Aim O2 sats 88-92%, BiPAP HS and while napping as tolerated (2) Acute on chronic diastolic heart failure with preserved ejection fraction: Plan: Bumex 4mg IV BID (4+2 PO taking at home with weight gain). Continue spironolactone 25mg PO BID. Add metolazone 2.5mg PO QOD Repeat TTE as last performed in 04/2021 Low Na, heart healthy, fluid restricted 1500ml diet (3) Bilateral pleural effusion: Plan: Suspected secondary to CHF as above (4) Iron deficiency anemia: Plan: Iron now appears to be replaced with prior Venofer injections. However despite this and elevated reticulocyte count Hgb has continued to decrease. Suspect now anemia of chronic disease, recovering iron deficiency (elevated reticulocytes) and dilutional with hypervolemic state Will diurese first as may be somewhat dilutional and repeat Hgb. Consider transfusions to aim Hgb > 9 to rule this out as contributory towards his shortness of breath. (5) COPD (chronic obstructive pulmonary disease): Plan: Continue Duonebs QID to help with mucus plugging Continue Trelegy Ellipta (6) GERD (gastroesophageal reflux disease): Plan: Continue pantoprazole but can decrease to 40mg PO daily (previously BID due to concern for GI bleed with iron def. anemia) (7) Anxiety: Plan: Continue Lexapro 20mg PO daily and BuSpar 10mg TID PRN Plan: VTE Prophylaxis - Lovenox 40mg SQ daily Diet - Low Na, heart healthy, fluid restrict 1500ml Disposition - admit to PCU Admission and Anticipated Discharge Date Admission Date: May 19, 2022 History of Present Illness Chief Complaint: Leg swelling and shortness of breath Primary Care Provider: Angela Schultz MD Richard Lobo is a 76 year old male with severe COPD, chronic diastolic heart failure, aortic stenosis s/p TAVR (04/2020), iron deficiency anemia, obstructive sleep apnea who presents to the ER from heart failure clinic due to weight gain, increasing leg swelling and shortness of breath. He was sent to by the heart failure clinic today for leg swelling and weight gain of 10lb. Reportedly his O2 sats were 70s-low 80s during the appointment but they appear to be at his baseline in the ER on 5LPM O2 he is acutely over saturating at 96% and the patient denies he feels significantly more short of breath at baseline but does note his exercise tolerance has been very poor. He has not been wearing his BiPAP although was not retaining on his last admission here He was most recently admitted to [facility] from April 17 - 2021 by myself. On that occasion his diagnosis was more consistent with bacterial pneumonia without COPD exacerbation as his WBC and procalcitonin improved with antibiotics. He is currently not taking any prednisone since this admission. His diuretics were increased during that admission to Bumex 3mg PO BID as he responded to increased diuretics during the admission without bump in his Creatinine. He was set up with the heart failure clinic and subsequent gained weight despite diuretics of 4mg PO + 2mg PO daily and additional metolazone. Spironolactone has been continued at 25mg PO BID since last admission. He likely has increased salt diet at home. In the ER CT chest angiogram showed interstitial and alveolar pulmonary edema, tracheobronchial secretion with mucous plugging and bibasilar opacities suggestive of atelectasis versus pneumonitis. Procalcitonin and WBC negative. He was given Bumex 4mg IV and referred to medicine for admission and ongoing management of decompensated heart failure and hypervolemia. Allergies Allergy/AdvReac Type Severity Reaction Status Date / Time No Known Allergies Allergy Verified 05/04/22 11:55 Home Medications Medication Instructions Recorded Confirmed Type atorvastatin 80 mg tablet 80 mg PO QPM 05/20/20 05/19/22 History magnesium 250 mg tablet 250 mg PO DAILY 05/20/20 05/19/22 History multivitamin (Multiple Vitamins) 1 tab PO DAILY 05/21/20 05/19/22 History docusate sodium 100 mg capsule 100 mg PO BID 06/10/20 05/19/22 History acetaminophen 325 mg capsule 650 mg PO QID PRN 06/11/20 05/19/22 History spironolactone 25 mg tablet 25 mg PO BID 30 Days #60 tab 09/30/20 05/19/22 Rx ferrous sulfate 325 mg (65 mg 65 mg PO BID tab 02/27/21 05/19/22 History iron) tablet nicotine (polacrilex) 2 mg gum 2 mg BUCCAL Q2H PRN #120 ea 09/30/21 05/19/22 Rx bumetanide 2 mg tablet See Rx Instructions PO BID tab 02/12/22 05/19/22 History azelastine 137 mcg (0.1 %) nasal 2 spray INTRANASAL DAILY #30 ml 03/10/22 05/19/22 Rx spray aerosol aspirin 81 mg tablet,delayed 81 mg PO QPM 03/19/22 05/19/22 History release (Adult Low Dose Aspirin) calcium 300 mg chewable tablet 600 mg PO BID 03/22/22 05/19/22 History pantoprazole 40 mg tablet,delayed 40 mg PO BID 30 Days #60 tab 03/24/22 05/19/22 Rx release albuterol sulfate 90 mcg/actuation 2 puff INHALATION Q6H PRN #18 g 03/27/22 05/19/22 Rx aerosol inhaler fluticasone fur. 100 mcg-umeclid 1 inh INHALATION DAILY #3 inhaler 03/27/22 05/19/22 Rx 62.5 mcg-vilant 25 mcg inhalat.powder (Trelegy Ellipta) ipratropium 0.5 mg-albuterol 3 mg 3 ml INHALATION Q6H PRN #180 ml 04/03/22 05/19/22 Rx (2.5 mg base)/3 mL nebulization soln potassium chloride 20 mEq 20 meq PO QAM #0 tab 04/20/22 05/19/22 Rx tablet,extended release buspirone 10 mg tablet 10 mg PO TID #90 tab 05/01/22 05/19/22 Rx escitalopram oxalate 10 mg tablet 20 mg PO DAILY tab 05/01/22 05/19/22 History metolazone 2.5 mg tablet 2.5 mg PO DIRECTED PRN #30 tab 05/04/22 05/19/22 Rx Past Med/Surg History Medical History Acute GI bleeding Acute hyperglycemia Anemia Anemia Anemia Aortic stenosis severe asymptomatic Elevated troponin I level GERD (gastroesophageal reflux disease) History of GI bleed Hypertension Hypertension Hypoxia Hypoxia Metabolic alkalosis with respiratory acidosis SOB (shortness of breath) Tobacco use disorder Uremia Surgical History History of left-sided carotid endarterectomy 2014 S/P appendectomy Family History Father Hypertension Mother Hypotension Breast cancer Other No family history of adverse response to anesthesia No family history of bleeding disorder Social History Smoking Status: Former smoker Tobacco Type: Cigarettes packs per day: 1; Second Hand Exposure: No; Hx Alcohol Use: Yes Alcohol type: hard liquor Alcohol Intake Frequency: Monthly or Less Alcohol Intake Frequency Comment: 1 bottle of Manny Dupree a month Hx Substance Use: No Preferred Language: Danish Communication Ability: Effective Visual Impairment: No Limitations Podiatry Assistant Required: No Beliefs That Will Affect Care: None marital status: Current Living Situation: Spouse and Family Current Living Situation Comment: house current occupational status: retired Feels Safe at Home: Yes Safety Concerns: Feels Safe At This Time Assistive Devices: BiPap, Denture - Upper, Denture - Lower and Oxygen - Continuous Review of Systems Review of Systems: All systems reviewed & are unremarkable except as noted in HPI & below Physical Exam Constitutional: WD/WN, vitals as above Eyes: PERRL, conjunctivae normal, anicteric sclerae ENMT: external ear and nose normal, oropharynx normal Neck: trachea midline, no thyromegaly Respiratory: + respiratory distress, + labored breathing and + uses accessory muscles Auscultation: + diminished lung sounds (bibasal) and + crackles (to mid zone posteriorly, clear anteriorly); no wheezes Cardiovascular: Rate/Rhythm: regular rate and regular rhythm Heart Sounds: no murmur Vessels: + JVD Extremities: normal capillary refill, + calf tenderness (bilateral) and + pedal edema (3+ to thighs) Gastrointestinal (Abdomen): normal bowel sounds, soft, nontender, no hepatosplenomegaly Musculoskeletal: no cyanosis or clubbing, extremities motor strength 5/5 Skin: no rashes, warm and dry Neurologic: moves all extremities and awake; not confused Psychiatric: A+Ox3, euthymic affect Results & Data Results & Data ([facility]) Vital Signs (Past 12 Hours) Vital Signs Temp Pulse Pulse Resp BP BP Pulse Ox 05/19/22 11:48 78 76 20 129/47 L 100 05/19/22 11:26 35.8 C L 85 22 131/53 L 88 L Laboratory Results Abnormal lab results 05/19/22 05/19/22 05/19/22 Range/Units 11:47 11:47 11:47 RBC 2.60 L (4.7-6.1) M/uL Hgb 7.2 L (14.0-18.0) g/dL Hct 27.5 L (42-52) % MCV 105.8 H (80-100) fL MCHC 26.2 L (32-36) g/dL Plt Count 436 H (130-400) K/uL Reticulocyte % (Auto) (0.5-2.0) % Lymph # (Auto) 0.82 L (1.2-3.4) K/uL Reticulocyte # (0.02-0.10) 10^6/uL Chloride 89 L (98-107) mmol/L Carbon Dioxide 43 H* (21-32) mmol/L BUN 28 H (6-23) mg/dl BUN/Creatinine Ratio 22.4 H (10-20) Glucose 165 H (70-99(Fasting)) mg/dl Magnesium 2.5 H (1.7-2.4) mg/dl B-Natriuretic Peptide 417 H (0-100) pg/ml 05/19/22 Range/Units 12:33 RBC (4.7-6.1) M/uL Hgb (14.0-18.0) g/dL Hct (42-52) % MCV (80-100) fL MCHC (32-36) g/dL Plt Count (130-400) K/uL Reticulocyte % (Auto) 10.3 H (0.5-2.0) % Lymph # (Auto) (1.2-3.4) K/uL Reticulocyte # 0.24 H (0.02-0.10) 10^6/uL Chloride (98-107) mmol/L Carbon Dioxide (21-32) mmol/L BUN (6-23) mg/dl BUN/Creatinine Ratio (10-20) Glucose (70-99(Fasting)) mg/dl Magnesium (1.7-2.4) mg/dl B-Natriuretic Peptide (0-100) pg/ml Diagnostic Findings XR chest 1V portable CLINICAL HISTORY: Chest Pain TECHNIQUE: Single frontal radiograph of the chest was obtained. Comparison: Comparison is made to chest radiograph 04/17/2022 FINDINGS: No lines and tubes are seen. Cardiomegaly is noted. Calcified aortic knob is seen. Multifocal airspace opacities are seen. Interstitial thickening and prominent pulmonary vasculature are seen. Small bilateral pleural effusions are seen. IMPRESSION: 1. Multifocal airspace opacities are somewhat worsened from prior exam. These may represent atelectasis, pneumonia, and/or aspiration. 2. Moderate pulmonary edema. 3. Small bilateral pleural effusions. CT angio chest PE protocol CT DOSE: 828.07 mGy.cm HISTORY: 76 years-old Male with SOB, edema, ro PE. Acute shortness of breath TECHNIQUE: Multiple CTA images of the chest were obtained after the intravenous administration of 120 ml Optiray. Coronal and sagittal MIPS were obtained from the axial data set and were submitted for review. All measurements were obtained according to NASCET criteria. A dose lowering technique was utilized adhering to the principles of ALARA. COMPARISON: Chest radiograph of same day, chest CT 03/22/2022 FINDINGS: CTA: Moderate to marked cardiomegaly. Extensive coronary artery calcifications. Mitral annular and thoracic aortic calcifications also noted with thoracic aortic endograft. No thoracic aortic aneurysm or dissection. There is patency of the imaged great vessels. Unremarkable pulmonary artery. The distal subsegmental branches within the lung bases are not well opacified and therefore are difficult to evaluate. No filling defects are identified to suggest thromboembolic disease. CT CHEST: 8 mm hypodense left thyroid nodule. Mediastinal and hilar lymphadenopathy is redemonstrated with subcarinal lymph nodes measuring up to 1.2 cm and right hilar lymph nodes measuring up to 1.6 cm. Adenopathy has progressed from the prior exam. There are small left greater than right pleural effusions. Pleural fluid tracks along the right major fissure. Pleural thickening with loculations left lung base is a chronic finding. Moderate pulmonary emphysema. Intralobular septal thickening is noted with intermixed groundglass opacities. Tracheobronchial secretions with bibasilar mucous plugging and mild bibasilar consolidation. Thickening of the adrenal glands suggestive of hyperplasia. No acute process of the imaged upper abdomen. Unremarkable soft tissues. There is no acute fracture. Degenerative changes of the shoulders and spine. Gynecomastia. IMPRESSION: 1. No pulmonary emboli identified. 2. Cardiomegaly with interstitial and alveolar pulmonary edema. 3. Tracheobronchial secretions with mucous plugging and bibasilar opacities suggestive of atelectasis versus pneumonitis. 4. Small left greater than right pleural effusions. Mild loculation with pleural thickening at the left lung base is unchanged. 5. Likely reactive mediastinal and hilar adenopathy, progressed from 03/22/2022. Medications Administered ER Medications Given: Bumex 4mg IV ECG Rate (beats per minute): 85 Rhythm: normal sinus Findings: + other (Non specific intra-ventricular conduction block) and + 1st degree AV block; no acute ischemic change Comparison ECG Date: from (April 17, 2022) Change: no significant change Code Status & VTE Plan Code Status Full VTE Prophylaxis Plan VTE Prophylaxis will be ordered: Yes PG Care Time/CCT Total # of Minutes Spent Total Time Spent with Patient: Total time spent is greater than 50% in coordination of care (as documented) at patient's floor/unit and/or counseling patient: Coding Level of Care Code 57470 Initial Inpt Care Lvl 3 Diagnoses Iron deficiency anemia D50.9 Acute on chronic respiratory failure with hypoxia and hypercapnia J96.21; J96.22 Bilateral pleural effusion J90 COPD (chronic obstructive pulmonary disease) J44.1 COPD type: COPD with acute exacerbation Acute on chronic diastolic heart failure with preserved ejection fraction I50.33 GERD (gastroesophageal reflux disease) K21.9 Anxiety F41.9 (1) COPD (chronic obstructive pulmonary disease) COPD type: COPD with acute exacerbation Qualified Code(s): J44.1 - Chronic obstructive pulmonary disease with (acute) exacerbation
--- NOTE | 2022-05-19 16:15 | XCELERA ---
[id number]
[2022-05-19] MEDS ORDERED: ACETAMINOPHEN 325 MG TAB PO PRN (17:58)
[2022-05-19] MEDS: ALBUT/IPRATROP 3MG/0.5MG NEB 3 ML VIAL NEB SCH ×2 (19:16)
[2022-05-19] MEDS: PANTOprazole 40 MG TAB PO SCH (19:37)
[2022-05-19] MEDS: ATORVASTATIN 40 MG TAB PO SCH (19:38)
[2022-05-19] MEDS: SPIRONOLACTONE 25 MG TAB PO SCH (19:38)
[2022-05-19] MEDS: FERROUS SULFATE 325 MG TAB PO SCH (19:39)
[2022-05-19] MEDS: DOCUSATE SODIUM 100 MG CAP PO SCH (19:39)
[2022-05-19] MEDS: MAGNESIUM OXIDE 400 MG TAB PO SCH (19:39)
[2022-05-19] MEDS ORDERED: busPIRone 5 MG TAB PO PRN (20:03)
[2022-05-19] MEDS ORDERED: NICOTINE POLACRILEX 2 MG GUM MT PRN (20:03)
[2022-05-19] MEDS: ASPIRIN 81 MG ECTAB PO SCH (20:40)
[2022-05-19] MEDS: ENOXAPARIN INJ 40 MG/0.4 ML SYR SQ SCH (21:09)
[2022-05-20] MEDS: ALBUT/IPRATROP 3MG/0.5MG NEB 3 ML VIAL NEB SCH ×2 (06:50→10:47)
[2022-05-20 07:36] LABS: BUN Creatinine Ratio 22.4 (10-20); Blood Urea Nitrogen 24 mg/dl (6-23); Calcium 9.4 mg/dl (8.5-10.1); Carbon Dioxide > 45 mmol/L (21-32); Chloride 91 mmol/L (98-107); Creatinine Clr Calc Pharmacy 58.7 ml/min; Est GFR (African American) 76.7 ml/min; Est GFR (Non-African American) 66.1 ml/min; Glucose 85 mg/dl (70-99(Fasting)); Potassium 3.9 mmol/L (3.5-5.1); Sodium 140 mmol/L (136-145)
[2022-05-20 07:43] LABS: Hematocrit (blood only) 26.7 % (42-52); Hemoglobin 7.1 g/dL (14.0-18.0); Mean Corpuscular Hemoglobin 28.2 pg (25-34); Mean Corpuscular Hgb Conc 26.6 g/dL (32-36); Mean Platelet Volume 9.4 fL (7.4-10.4); Platelet Count 437 K/uL (130-400); RDW Coefficient of Variation 16.1 % (11.5-14.5); RDW Standard Deviation 62.1 fL (36.4-46.3); Red Blood Count 2.52 M/uL (4.7-6.1); White Blood Count 5.75 K/uL (4.8-10.8)
[2022-05-20 07:45] LABS: Basophils # (auto) 0.03 K/uL (0-0.2); Basophils % (auto) 0.5 %; Eosinophils # (auto) 0.15 K/uL (0-0.5); Eosinophils % (auto) 2.6 %; Hypochromasia Present; Immature Granulocytes # (auto) 0.01 K/uL (0.00-0.02); Immature Granulocytes % (auto) 0.2 %; Lymphocytes # (auto) 0.71 K/uL (1.2-3.4); Lymphocytes % (auto) 12.3 %; Macrocytosis Present; Monocytes # (auto) 0.42 K/uL (0.11-0.59); Monocytes % (auto) 7.3 %; Neutrophils # (auto) 4.43 K/uL (1.4-6.5); Neutrophils % (auto) 77.1 %; Polychromasia 1+
[2022-05-20 08:06] LABS: Allen Test Pos (Pos); Base Excess ABG 23.6 mEq/L (-9-1.8); HCO3 ABG 53 mmol/L (19-24); Oxygen Saturation ABG 90.8 % (90-95); PCO2 ABG 80 mmHg (35-46); PO2 ABG 60 mmHg (80-95); pH ABG 7.43 (7.35-7.45)
[2022-05-20] MEDS: ESCITALOPRAM OXALATE 20 MG TAB PO SCH (08:12)
[2022-05-20] MEDS: MULTIVITAMIN TAB PO SCH (08:12)
[2022-05-20] MEDS: metOLazone 2.5 MG TABLET PO SCH (08:12)
[2022-05-20] MEDS: PANTOprazole 40 MG TAB PO SCH ×2 (08:12→20:01)
[2022-05-20] MEDS: DOCUSATE SODIUM 100 MG CAP PO SCH ×2 (08:12→20:02)
[2022-05-20] MEDS: SPIRONOLACTONE 25 MG TAB PO SCH ×2 (08:12→20:01)
[2022-05-20] MEDS: AZELASTINE HCL 0.1% NASAL 200 SPRAYS/27,400 MCG BTL NAE SCH (08:12)
[2022-05-20] MEDS: POTASSIUM CHLORIDE CRTAB 20 MEQ TABCR PO SCH (08:12)
[2022-05-20] MEDS: FLUTICASONE FUROATE 100MCG 14 PUFFS/INHALER INH SCH (08:13)
[2022-05-20] MEDS: UMECLIDINIUM/VILANTEROL 62.5/25MCG 7 PUFFS/INHALER INH SCH (08:13)
[2022-05-20] MEDS: BUMETANIDE 4 MG in SYRINGE 0 ML IV SCH ×2 (08:14→17:34)
--- NOTE | 2022-05-20 08:16 | Ultrasound Report ---
BILATERAL LOWER EXTREMITY VENOUS DOPPLER CLINICAL HISTORY: bilateral leg swelling and erythema r/o DVT COMPARISON STUDY: Bilateral lower extremity venous Doppler ultrasound June 19, 2020. TECHNIQUE: Sonography of the deep venous system of the bilateral lower extremities was performed. Co mpression and augmentation were evaluated. FINDINGS: The bilateral common femoral, superficial femoral and popliteal veins were compressible. A ugmentation was normal. Flow was shown within the deep calf vessels. Note was made of bilateral calf subcutaneous edema. IMPRESSION: No evidence of deep venous thrombus within the bilateral lower extremities. ACT 112: Negative or not required by law. Electronically signed by: Anjum Chaudhry M.D. 05/20/2022 8:15 AM
[2022-05-20] MEDS ORDERED: SODIUM CHLORIDE 0.9% 250 ML IV PRN (10:50)
--- NOTE | 2022-05-20 13:31 | Hospitalist Progress Note ---
Date of Service May 20, 2022 Assessment & Plan (1) Acute on chronic respiratory failure with hypoxia and hypercapnia: Plan: Multifactorial with mucus plugging and CHF/ pulmonary edema. He is currently back to his oxygen baseline. Continue diuresis, incentive spirometer, duonebs and flutter valve (2) Acute on chronic diastolic heart failure with preserved ejection fraction: Plan: Bumex 4mg IV BID. Continue spironolactone 25mg PO BID. Added metolazone this admission Normal ejection fraction on echo Low Na, heart healthy, fluid restricted 1500ml diet Repeat chest x-ray tomorrow, May 21 (3) Bilateral pleural effusion: Plan: Due to CHF as above. Diuresis. Serial chest x-ray (4) Iron deficiency anemia: Plan: Iron level is normal. However, hemoglobin is 7.1 today, May 20. He agrees to 1 unit packed red blood cells today. Will check fecal occult blood. (5) COPD (chronic obstructive pulmonary disease): Plan: Continue Duonebs QID to help with mucus plugging Continue Trelegy Ellipta Treat CHF (6) GERD (gastroesophageal reflux disease): Plan: Continue pantoprazole therapy (7) Anxiety: Plan: Continue Lexapro and BuSpar Plan: VTE Prophylaxis - Lovenox 40mg SQ daily Diet - Low Na, heart healthy, fluid restrict 1500ml Disposition: Eventual discharge to home Admission and Anticipated Discharge Date Admission Date: May 19, 2022 Subjective Alert and oriented. No acute distress. He gives consent for blood transfusion today for hemoglobin 7.1. Good diuresis with intravenous Bumex. We will repeat chest x-ray tomorrow. Fecal occult blood is ordered and pending. Iron level is 58. He remains on 5 L oxygen at 94% saturation. He usually wears oxygen at 4 to 5 L at home. Review of Systems Review of Systems: Constitutional-no fever or chills ENT-no blurred vision, no double vision, no epistaxis, no sore throat Respiratory-no cough, no wheezing. Shortness of breath with exertion Cardiac-no palpitations, no chest pain, no syncope. Orthopnea noted but improved from admission GI-no nausea, vomiting, diarrhea, melena, hematochezia -no urinary retention, no urinary incontinence, no dysuria, no hematuria Musculoskeletal-no joint pain, no muscle tenderness. Skinno rashes , no pruritus Neuro-no isolated weakness, no paresthesia, no weakness Psych-no depression, no anxiety Physical Exam Physical Exam: General-alert and oriented x3, no fevers, no chills HEENT-head atraumatic and normocephalic, TMs intact bilaterally, pupils equal and reactive to light, extraocular muscles intact Neck-no lymphadenopathy or thyromegaly, trachea midline Chest-clear to auscultation percussion. No rales wheezing or rhonchi Cardiac-regular rate and rhythm, normal S1 and S2, no murmurs Abdomen-normal bowel sounds, nontender, no hepatosplenomegaly Extremities-no cyanosis. Bilateral lower extremity 2+ pitting edema below the knees Neuro-cranial nerves II through XII intact, motor and sensory function within normal limits, strength symmetrical , no focal deficits Psych-normal affect, normal mood Results & Data Results & Data ([facility]) Vital Signs (Past 12 Hours) Vital Signs Temp Pulse Pulse Pulse Resp BP BP 05/20/22 13:15 36.8 C 74 18 132/55 L 05/20/22 13:00 36.6 C 74 18 126/54 L 05/20/22 12:41 36.5 C 83 18 117/45 L 05/20/22 11:00 36.6 C 81 20 134/47 L 05/20/22 10:47 80 17 05/20/22 07:42 69 05/20/22 07:04 36.4 C L 80 18 112/56 L 05/20/22 06:51 74 17 05/20/22 04:35 36.5 C 75 16 133/53 L Pulse Ox 05/20/22 13:15 97 05/20/22 13:00 95 05/20/22 12:41 93 05/20/22 11:00 95 05/20/22 10:47 95 05/20/22 07:42 05/20/22 07:04 94 05/20/22 06:51 94 05/20/22 04:35 98 Laboratory Results 05/20/22 06:46 05/20/22 06:46 PG Care Time/CCT Total # of Minutes Spent Total Time Spent with Patient: Total time spent is greater than 50% in coordination of care (as documented) at patient's floor/unit and/or counseling patient: Coding Level of Care Code 86523 Subseq Hosp Care Lvl 3 Diagnoses Acute on chronic respiratory failure with hypoxia and hypercapnia J96.21; J96.22 Acute on chronic diastolic heart failure with preserved ejection fraction I50.33 Bilateral pleural effusion J90 Iron deficiency anemia D50.9 COPD (chronic obstructive pulmonary disease) J44.1 COPD type: COPD with acute exacerbation GERD (gastroesophageal reflux disease) K21.9 Anxiety F41.9 (1) COPD (chronic obstructive pulmonary disease) COPD type: COPD with acute exacerbation Qualified Code(s): J44.1 - Chronic obstructive pulmonary disease with (acute) exacerbation
[2022-05-20] MEDS ORDERED: ALBUT/IPRATROP 3MG/0.5MG NEB 3 ML VIAL NEB PRN (14:00)
[2022-05-20 18:29] LABS: Hematocrit (blood only) 31.8 % (42-52); Hemoglobin 8.8 g/dL (14.0-18.0)
[2022-05-20] MEDS: ASPIRIN 81 MG ECTAB PO SCH (20:02)
[2022-05-20] MEDS: ATORVASTATIN 40 MG TAB PO SCH (20:02)
[2022-05-20] MEDS: ENOXAPARIN INJ 40 MG/0.4 ML SYR SQ SCH (20:02)
[2022-05-21 06:18] LABS: Hemoglobin 7.7 g/dL (14.0-18.0); Mean Corpuscular Hemoglobin 28.5 pg (25-34); Mean Corpuscular Hgb Conc 27.5 g/dL (32-36); Mean Corpuscular Volume 103.7 fL (80-100); Mean Platelet Volume 9.4 fL (7.4-10.4); Platelet Count 423 K/uL (130-400); RDW Coefficient of Variation 16.7 % (11.5-14.5); RDW Standard Deviation 63.9 fL (36.4-46.3); White Blood Count 6.51 K/uL (4.8-10.8)
[2022-05-21 06:33] LABS: Anisocytosis Present; Basophils # (auto) 0.03 K/uL (0-0.2); Basophils % (auto) 0.5 %; Eosinophils # (auto) 0.18 K/uL (0-0.5); Eosinophils % (auto) 2.8 %; Hypochromasia Present; Immature Granulocytes # (auto) 0.01 K/uL (0.00-0.02); Immature Granulocytes % (auto) 0.2 %; Lymphocytes # (auto) 0.58 K/uL (1.2-3.4); Lymphocytes % (auto) 8.9 %; Monocytes # (auto) 0.71 K/uL (0.11-0.59); Monocytes % (auto) 10.9 %; Neutrophils % (auto) 76.7 %; Polychromasia 1+; Tear Drop Cells 1+
[2022-05-21 06:42] LABS: BUN Creatinine Ratio 19.5 (10-20); Blood Urea Nitrogen 22 mg/dl (6-23); Calcium 9.5 mg/dl (8.5-10.1); Carbon Dioxide > 45 mmol/L (21-32); Chloride 90 mmol/L (98-107); Creatinine Clr Calc Pharmacy 55.6 ml/min; Est GFR (African American) 71.8 ml/min; Est GFR (Non-African American) 61.9 ml/min; Glucose 125 mg/dl (70-99(Fasting)); Potassium 4.2 mmol/L (3.5-5.1); Sodium 139 mmol/L (136-145)
--- NOTE | 2022-05-21 09:05 | XRay Report ---
XR chest 2V PA/lateral CLINICAL HISTORY: Congestive heart failure. COMPARISON STUDY: Chest radiograph and chest CT May 19, 2022. FINDINGS: There is no pneumothorax. Small bilateral pleural effusions are again noted. Persistent pul monary edema is noted. Slight improvement is noted since prior exam. There is cardiomegaly. Prostheti c aortic valve is present. Bibasilar opacities are unchanged. IMPRESSION: 1. Persistent pulmonary edema, slightly improved since prior exam. 2. No significant change in small bilateral pleural effusions. ACT 112: Negative or not required by law. Electronically signed by: Anjum Chaudhry M.D. 05/21/2022 9:04 AM
[2022-05-21] MEDS: AZELASTINE HCL 0.1% NASAL 200 SPRAYS/27,400 MCG BTL NAE SCH (09:53)
[2022-05-21] MEDS: BUMETANIDE 4 MG in SYRINGE 0 ML IV SCH ×2 (09:54→16:27)
[2022-05-21] MEDS: UMECLIDINIUM/VILANTEROL 62.5/25MCG 7 PUFFS/INHALER INH SCH (09:54)
[2022-05-21] MEDS: FLUTICASONE FUROATE 100MCG 14 PUFFS/INHALER INH SCH (09:54)
[2022-05-21] MEDS: PANTOprazole 40 MG TAB PO SCH ×2 (09:55→20:55)
[2022-05-21] MEDS: FERROUS SULFATE 325 MG TAB PO SCH (09:55)
[2022-05-21] MEDS: MULTIVITAMIN TAB PO SCH (09:55)
[2022-05-21] MEDS: MAGNESIUM OXIDE 400 MG TAB PO SCH (09:55)
[2022-05-21] MEDS: SPIRONOLACTONE 25 MG TAB PO SCH ×2 (09:55→20:55)
[2022-05-21] MEDS: POTASSIUM CHLORIDE CRTAB 20 MEQ TABCR PO SCH (09:55)
[2022-05-21] MEDS: ESCITALOPRAM OXALATE 20 MG TAB PO SCH (09:55)
[2022-05-21] MEDS: DOCUSATE SODIUM 100 MG CAP PO SCH ×2 (09:55→20:56)
--- NOTE | 2022-05-21 10:38 | Heart Failure Consultation ---
Date of Consultation May 21, 2022 Assessment & Plan (1) Acute on chronic diastolic heart failure with preserved ejection fraction: (2) COPD (chronic obstructive pulmonary disease): (3) Acute on chronic respiratory failure with hypoxia and hypercapnia: (4) Anemia: Chronic diastolic CHF- Currently stage III-IV symptoms. He is responding well to diuretics. He is still slightly hypervolemic today. Suspect dyspnea is multifactorial- COPD, CHF, anemia, and ABDIEL. Edema improving but still noted. Weight is down to 185 lb which is the high end of his baseline. Kidney function and electrolytes stable. CXR today with persistent pulmonary edema. Would recommend optimizing his volume status as much as possible prior to discharge to potentially avoid future re-admissions. Continue IV Bumex 4 mg BID. Continue Spironolactone and Metolazone. Dry weight 182-185 lb. He was [address] I&Os while inpatient. Continue low sodium diet. Daily standing weights. Anemia- Iron deficiency. Iron levels improved with Venofer infusions. He had one unit of PRBCs yesterday with improved Hgb. Now downtrending again today. Would recommend continued monitoring. ABDIEL- Patient has been noncompliant with BiPAP therapy. Continue to encourage adherence. COPD- Stable. Continue inhalers. Managed by Dr. Hensley/Adin. Follow up was cancelled by the office last week. Recommend routine outpatient follow up due to his high risk for readmission. Depression- Intermittent. Medications recently adjusted. Disposition: Will continue follow during hospitalization. Recommend close outpatient follow up after discharge. *Patient high risk with multiple recent re-admissions. History of Present Illness Attending Physician: Moshe Purcell MD History of Present Illness Mr. Lobo is a 76 year old male with medical history significant for aortic stenosis now s/p TAVR (2019), COPD, chronic respiratory failure on O2, carotid artery stenosis status post CEA, tobacco use, history of GI bleed secondary to AVM and hypertension. Dr. De is his primary mangle feeder. Dr. Chapman is his primary care. Recent cardiac studies: 1. 05/17/20 Echo: LV systolic function is normal, EF 55-60%. No regional wall motion abnormalities. Aortic valve well seated, normal gradient. Mild AR. Mild MS. Mild LVH. 2. 06/12/20 Echo: LV systolic function is normal, EF 55-60%. NO regional wall m otion abnormalities. Aortic valve well seated. Mild AR. Mild MS. No change from April. 3. 05/19/22 Echo: LV mildly dilated. EF 55-60%. Moderate concentric LVH. RV mildly dilated. Bioprosthetic aortic valve with normal gradient. Mild MR/MS. IVC mildly dilated. Increased pulmonary artery end-diastolic pressure. Patient was referred to the ED from the office on 05/19/22 with significant hypervolemic after failing to respond to escalating outpatient diuretics. In the ER CT chest angiogram showed interstitial and alveolar pulmonary edema, tracheobronchial secretion with mucous plugging and bibasilar opacities suggestive of atelectasis versus pneumonitis. Procalcitonin and WBC negative. He has been treated with Bumex 4 mg IV BID, Spironolactone, and Metolazone. He has responded well. He's negative 4 L with improved symptoms. Edema has improved significantly but still noted. His O2 requirement is currently consistent with his home needs. Iron levels improved but he remains anemic. He had one unit of PRBCs yesterday. Weight is 185 lb today via standing scale. He denies chest pain, palpitations, or cough. Allergies Allergy/AdvReac Type Severity Reaction Status Date / Time No Known Allergies Allergy Verified 05/04/22 11:55 Home Medications Medication Instructions Recorded Confirmed Type atorvastatin 80 mg tablet 80 mg PO QPM 05/20/20 05/19/22 History magnesium 250 mg tablet 250 mg PO DAILY 05/20/20 05/19/22 History multivitamin (Multiple Vitamins) 1 tab PO DAILY 05/21/20 05/19/22 History docusate sodium 100 mg capsule 100 mg PO BID 06/10/20 05/19/22 History acetaminophen 325 mg capsule 650 mg PO QID PRN 06/11/20 05/19/22 History spironolactone 25 mg tablet 25 mg PO BID 30 Days #60 tab 09/30/20 05/19/22 Rx ferrous sulfate 325 mg (65 mg 65 mg PO BID tab 02/27/21 05/19/22 History iron) tablet nicotine (polacrilex) 2 mg gum 2 mg BUCCAL Q2H PRN #120 ea 09/30/21 05/19/22 Rx bumetanide 2 mg tablet See Rx Instructions PO BID tab 02/12/22 05/19/22 History azelastine 137 mcg (0.1 %) nasal 2 spray INTRANASAL DAILY #30 ml 03/10/22 05/19/22 Rx spray aerosol aspirin 81 mg tablet,delayed 81 mg PO QPM 03/19/22 05/19/22 History release (Adult Low Dose Aspirin) calcium 300 mg chewable tablet 600 mg PO BID 03/22/22 05/19/22 History pantoprazole 40 mg tablet,delayed 40 mg PO BID 30 Days #60 tab 03/24/22 05/19/22 Rx release albuterol sulfate 90 mcg/actuation 2 puff INHALATION Q6H PRN #18 g 03/27/22 05/19/22 Rx aerosol inhaler fluticasone fur. 100 mcg-umeclid 1 inh INHALATION DAILY #3 inhaler 03/27/22 05/19/22 Rx 62.5 mcg-vilant 25 mcg inhalat.powder (Trelegy Ellipta) ipratropium 0.5 mg-albuterol 3 mg 3 ml INHALATION Q6H PRN #180 ml 04/03/22 05/19/22 Rx (2.5 mg base)/3 mL nebulization soln potassium chloride 20 mEq 20 meq PO QAM #0 tab 04/20/22 05/19/22 Rx tablet,extended release buspirone 10 mg tablet 10 mg PO TID #90 tab 05/01/22 05/19/22 Rx escitalopram oxalate 10 mg tablet 20 mg PO DAILY tab 05/01/22 05/19/22 History metolazone 2.5 mg tablet 2.5 mg PO DIRECTED PRN #30 tab 05/04/22 05/19/22 Rx Patient History Medical History Acute GI bleeding Acute hyperglycemia Anemia Anemia Anemia Aortic stenosis severe asymptomatic Elevated troponin I level GERD (gastroesophageal reflux disease) History of GI bleed Hypertension Hypertension Hypoxia Hypoxia Metabolic alkalosis with respiratory acidosis SOB (shortness of breath) Tobacco use disorder Uremia Surgical History History of left-sided carotid endarterectomy 2014 S/P appendectomy Family History Father Hypertension Mother Hypotension Breast cancer Other No family history of adverse response to anesthesia No family history of bleeding disorder Social History Smoking Status: Former smoker Tobacco Type: Cigarettes packs per day: 1; Second Hand Exposure: No; Hx Alcohol Use: Yes Alcohol type: hard liquor Alcohol Intake Frequency: Monthly or Less Alcohol Intake Frequency Comment: 1 bottle of Manny Dupree a month Hx Substance Use: No Preferred Language: Afghan Communication Ability: Effective Visual Impairment: No Limitations Design Supervisor Required: No Beliefs That Will Affect Care: None marital status: Current Living Situation: Spouse and Family Current Living Situation Comment: house current occupational status: retired Feels Safe at Home: Yes Safety Concerns: Feels Safe At This Time Assistive Devices: Cane and Walker Physical Exam Physical Exam: General: Comfortable, nasal cannula in place- 5 L HEENT: Sclerae anicteric, Mask in place Neck: Supple. No JVD. + HJR Lungs: Slightly increased respiratory effort- chronic. Fine crackles at bases, prolonged expiratory phase. Decreased breath sounds throughout. Cardiac: Regular rate and rhythm, crisp bioprosthetic closure Vascular: 2+ radial Abdomen: Soft, nontender Extremities: Well perfused, 1-2+ lower extremity edema. Improved from outpatient exam. Neuro: Nonfocal Psych: Alert orient x3, normal affect and mood Results & Data ([facility]) Vital Signs (Past 12 Hours) Vital Signs Temp Pulse Pulse Resp BP BP Pulse Ox 05/21/22 07:41 97.7 F 83 18 124/57 L 91 05/21/22 04:00 97.7 F 77 14 120/65 93 05/20/22 23:00 69 05/20/22 22:54 97.9 F 80 20 149/59 H 95 Coding Level of Care Code 40498 Initial Inpt Care Lvl 3 Diagnoses Acute on chronic diastolic heart failure with preserved ejection fraction I50.33 COPD (chronic obstructive pulmonary disease) J44.1 COPD type: COPD with acute exacerbation Acute on chronic respiratory failure with hypoxia and hypercapnia J96.21; J96.22 Anemia D64.9 (1) COPD (chronic obstructive pulmonary disease) COPD type: COPD with acute exacerbation Qualified Code(s): J44.1 - Chronic obstructive pulmonary disease with (acute) exacerbation
[2022-05-21] MEDS ORDERED: SODIUM CHLORIDE 0.9% 250 ML IV PRN (11:52)
--- NOTE | 2022-05-21 11:52 | Hospitalist Progress Note ---
Date of Service May 21, 2022 Assessment & Plan (1) Acute on chronic respiratory failure with hypoxia and hypercapnia: Plan: Multifactorial with mucus plugging and CHF/ pulmonary edema. He is currently back to his oxygen baseline. Continue diuresis, incentive spirometer, duonebs and flutter valve (2) Acute on chronic diastolic heart failure with preserved ejection fraction: Plan: Bumex 4mg IV BID. Continued good diuretic response Continue spironolactone 25mg PO BID. Added metolazone this admission Normal ejection fraction on echo Low Na, heart healthy, fluid restricted 1500ml diet Repeat chest x-ray today, May 21, looks better (3) Bilateral pleural effusion: Plan: Due to CHF as above. Diuresis. Serial chest x-ray (4) Iron deficiency anemia: Plan: Iron level is normal. However, hemoglobin is 7.7 today, May 21, after 1 unit packed red blood cells given yesterday. Will give another unit packed red blood cells today. Fecal occult blood result pending (5) COPD (chronic obstructive pulmonary disease): Plan: Continue Duonebs QID to help with mucus plugging Continue Trelegy Ellipta Treat CHF (6) GERD (gastroesophageal reflux disease): Plan: Continue pantoprazole therapy (7) Anxiety: Plan: Continue Lexapro and BuSpar Plan: VTE Prophylaxis - Lovenox 40mg SQ daily Diet - Low Na, heart healthy, fluid restrict 1500ml Disposition: Eventual discharge to home. Hopefully tomorrow, May 22 Admission and Anticipated Discharge Date Admission Date: May 19, 2022 Subjective Alert and oriented. He continues to diurese with IV Lasix. Chest x-ray today, May 21, looks better. Hemoglobin improved to 7.7 after 1 unit packed red blood cells given yesterday, May 20. We will repeat 1 unit packed red blood cells today, May 21. Hopefully he will be able to go home tomorrow, May 22 Review of Systems Review of Systems: Constitutional-no fever or chills ENT-no blurred vision, no double vision, no epistaxis, no sore throat Respiratory-no cough, no wheezing. Dyspnea on exertion has improved Cardiac-no palpitations, no chest pain, no syncope GI-no nausea, vomiting, diarrhea, melena, hematochezia -no urinary retention, no urinary incontinence, no dysuria, no hematuria Musculoskeletal-no joint pain, no muscle tenderness Skin-no bruising, no rashes, no pruritus Neuro-no isolated weakness, no paresthesia, no weakness Psych-no depression, no anxiety Physical Exam Physical Exam: General-alert and oriented x3, no fevers, no chills HEENT-head atraumatic and normocephalic, TMs intact bilaterally, pupils equal and reactive to light, extraocular muscles intact Neck-no lymphadenopathy or thyromegaly, trachea midline Chest-bibasilar inspiratory rales have improved. No wheezing Cardiac-regular rate and rhythm, normal S1 and S2, no murmurs Abdomen-normal bowel sounds, nontender, no hepatosplenomegaly Extremities-no cyanosis, clubbing, or edema Neuro-cranial nerves II through XII intact, motor and sensory function within normal limits, strength symmetrical , no focal deficits Psych-normal affect, normal mood Results & Data Results & Data ([facility]) Vital Signs (Past 12 Hours) Vital Signs Temp Pulse Resp BP Pulse Ox 05/21/22 07:41 36.5 C 83 18 124/57 L 91 05/21/22 04:00 36.5 C 77 14 120/65 93 Laboratory Results 05/21/22 05:32 05/21/22 05:32 PG Care Time/CCT Total # of Minutes Spent Total Time Spent with Patient: Total time spent is greater than 50% in coordination of care (as documented) at patient's floor/unit and/or counseling patient: Coding Level of Care Code 22337 Subseq Hosp Care Lvl 3 Diagnoses Acute on chronic respiratory failure with hypoxia and hypercapnia J96.21; J96.22 Acute on chronic diastolic heart failure with preserved ejection fraction I50.33 Bilateral pleural effusion J90 Iron deficiency anemia D50.9 COPD (chronic obstructive pulmonary disease) J44.1 COPD type: COPD with acute exacerbation GERD (gastroesophageal reflux disease) K21.9 Anxiety F41.9 (1) COPD (chronic obstructive pulmonary disease) COPD type: COPD with acute exacerbation Qualified Code(s): J44.1 - Chronic obstructive pulmonary disease with (acute) exacerbation
[2022-05-21] MEDS: ASPIRIN 81 MG ECTAB PO SCH (20:55)
[2022-05-21] MEDS: ATORVASTATIN 40 MG TAB PO SCH (20:56)
[2022-05-21] MEDS: ENOXAPARIN INJ 40 MG/0.4 ML SYR SQ SCH (21:18)
[2022-05-22 06:04] LABS: Basophils # (auto) 0.02 K/uL (0-0.2); Basophils % (auto) 0.3 %; Eosinophils # (auto) 0.23 K/uL (0-0.5); Eosinophils % (auto) 3.4 %; Hematocrit (blood only) 30.6 % (42-52); Hemoglobin 8.8 g/dL (14.0-18.0); Immature Granulocytes # (auto) 0.01 K/uL (0.00-0.02); Immature Granulocytes % (auto) 0.1 %; Lymphocytes # (auto) 0.59 K/uL (1.2-3.4); Lymphocytes % (auto) 8.8 %; Mean Corpuscular Hemoglobin 28.8 pg (25-34); Mean Corpuscular Hgb Conc 28.8 g/dL (32-36); Mean Platelet Volume 9.5 fL (7.4-10.4); Monocytes # (auto) 1.01 K/uL (0.11-0.59); Monocytes % (auto) 15.1 %; Neutrophils # (auto) 4.81 K/uL (1.4-6.5); Neutrophils % (auto) 72.3 %; Platelet Count 401 K/uL (130-400); RDW Coefficient of Variation 16.5 % (11.5-14.5); RDW Standard Deviation 60.6 fL (36.4-46.3); Red Blood Count 3.06 M/uL (4.7-6.1); White Blood Count 6.67 K/uL (4.8-10.8)
[2022-05-22 06:29] LABS: BUN Creatinine Ratio 22.7 (10-20); Blood Urea Nitrogen 27 mg/dl (6-23); Calcium 9.3 mg/dl (8.5-10.1); Carbon Dioxide > 45 mmol/L (21-32); Chloride 88 mmol/L (98-107); Creatinine Clr Calc Pharmacy 52.8 ml/min; Est GFR (African American) 67.4 ml/min; Est GFR (Non-African American) 58.2 ml/min; Glucose 112 mg/dl (70-99(Fasting)); Potassium 4.1 mmol/L (3.5-5.1); Sodium 137 mmol/L (136-145)
[2022-05-22] MEDS: metOLazone 2.5 MG TABLET PO SCH (08:33)
[2022-05-22] MEDS: AZELASTINE HCL 0.1% NASAL 200 SPRAYS/27,400 MCG BTL NAE SCH (09:10)
[2022-05-22] MEDS: UMECLIDINIUM/VILANTEROL 62.5/25MCG 7 PUFFS/INHALER INH SCH (09:10)
[2022-05-22] MEDS: FLUTICASONE FUROATE 100MCG 14 PUFFS/INHALER INH SCH (09:10)
[2022-05-22] MEDS: ESCITALOPRAM OXALATE 20 MG TAB PO SCH (09:11)
[2022-05-22] MEDS: SPIRONOLACTONE 25 MG TAB PO SCH (09:11)
[2022-05-22] MEDS: MULTIVITAMIN TAB PO SCH (09:11)
[2022-05-22] MEDS: POTASSIUM CHLORIDE CRTAB 20 MEQ TABCR PO SCH (09:11)
[2022-05-22] MEDS: DOCUSATE SODIUM 100 MG CAP PO SCH (09:11)
[2022-05-22] MEDS: PANTOprazole 40 MG TAB PO SCH (09:11)
[2022-05-22] MEDS: BUMETANIDE 4 MG in SYRINGE 0 ML IV SCH (09:12)
--- NOTE | 2022-05-22 09:49 | Hospitalist Progress Note ---
Date of Service May 22, 2022 Assessment & Plan (1) Acute on chronic respiratory failure with hypoxia and hypercapnia: Plan: Multifactorial with mucus plugging and CHF/ pulmonary edema. He is currently back to his oxygen baseline. reated with diuresis, incentive spirometer, duonebs and flutter valve (2) Acute on chronic diastolic heart failure with preserved ejection fraction: Plan: Bumex 4mg IV BID. Continued good diuretic response Continue spironolactone 25mg PO BID. Added metolazone this admission . We will continue at discharge Normal ejection fraction on echo Low Na, heart healthy, fluid restricted 1500ml diet Repeat chest x-ray on May 21, looked better (3) Bilateral pleural effusion: Plan: Due to CHF as above. Diuresis. Serial chest x-ray (4) Iron deficiency anemia: Plan: Iron level is normal. He received 2 units packed red blood cells this admission. Hemoglobin at discharge is 8.8. (5) COPD (chronic obstructive pulmonary disease): Plan: Treated with Duonebs QID to help with mucus plugging Treated with Trelegy Ellipta Treat CHF (6) GERD (gastroesophageal reflux disease): Plan: Continue pantoprazole therapy (7) Anxiety: Plan: Continue Lexapro and BuSpar Plan: VTE Prophylaxis - Lovenox 40mg SQ daily Diet - Low Na, heart healthy, fluid restrict 1500ml Disposition: discharge to home today, May 22 Admission and Anticipated Discharge Date Admission Date: May 19, 2022 Subjective Alert and oriented. He is on his usual amount of oxygen now. He continues to diurese with intravenous Bumex and oral metolazone. Hemoglobin has improved to 8.8 after transfusion. He will be discharged home today, May 22 Review of Systems Review of Systems: Constitutional-no fever or chills ENT-no blurred vision, no double vision, no epistaxis, no sore throat Respiratory-no cough, no wheezing, no shortness of breath Cardiac-no palpitations, no chest pain, no syncope GI-no nausea, vomiting, diarrhea, melena, hematochezia -no urinary retention, no urinary incontinence, no dysuria, no hematuria Musculoskeletal-no joint pain, no muscle tenderness Skin-no bruising, no rashes, no pruritus Neuro-no isolated weakness, no paresthesia, no weakness Psych-no depression, no anxiety Physical Exam Physical Exam: General-alert and oriented x3, no fevers, no chills HEENT-head atraumatic and normocephalic, TMs intact bilaterally, pupils equal and reactive to light, extraocular muscles intact Neck-no lymphadenopathy or thyromegaly, trachea midline Chest-clear to auscultation percussion. No rales wheezing or rhonchi Cardiac-regular rate and rhythm, normal S1 and S2, no murmurs Abdomen-normal bowel sounds, nontender, no hepatosplenomegaly Extremities-no cyanosis, clubbing, or edema Neuro-cranial nerves II through XII intact, motor and sensory function within normal limits, strength symmetrical , no focal deficits Psych-normal affect, normal mood Results & Data Results & Data ([facility]) Vital Signs (Past 12 Hours) Vital Signs Temp Pulse Pulse Resp BP BP Pulse Ox 05/22/22 07:02 36.8 C 75 19 141/52 H 99 05/22/22 03:03 36.7 C 70 18 117/48 L 99 05/22/22 00:00 76 05/21/22 23:10 36.7 C 75 18 146/57 H 94 Laboratory Results 05/22/22 05:24 05/22/22 05:24 PG Care Time/CCT Total # of Minutes Spent Total Time Spent with Patient: Total time spent is greater than 50% in coordination of care (as documented) at patient's floor/unit and/or counseling patient: Coding Level of Care Code 32282 Subseq Hosp Care Lvl 3 Diagnoses Acute on chronic respiratory failure with hypoxia and hypercapnia J96.21; J96.22 Acute on chronic diastolic heart failure with preserved ejection fraction I50.33 Bilateral pleural effusion J90 Iron deficiency anemia D50.9 COPD (chronic obstructive pulmonary disease) J44.1 COPD type: COPD with acute exacerbation GERD (gastroesophageal reflux disease) K21.9 Anxiety F41.9 (1) COPD (chronic obstructive pulmonary disease) COPD type: COPD with acute exacerbation Qualified Code(s): J44.1 - Chronic obstructive pulmonary disease with (acute) exacerbation
--- NOTE | 2022-05-22 09:55 | Discharge Summary ---
Date of Service May 22, 2022 Admission HPI Per Admitting Provider Richard Lobo is a 76 year old male with severe COPD, chronic diastolic heart failure, aortic stenosis s/p TAVR (04/2020), iron deficiency anemia, obstructive sleep apnea who presents to the ER from heart failure clinic due to weight gain, increasing leg swelling and shortness of breath. He was sent to by the heart failure clinic today for leg swelling and weight gain of 10lb. Reportedly his O2 sats were 70s-low 80s during the appointment but they appear to be at his baseline in the ER on 5LPM O2 he is acutely over saturating at 96% and the patient denies he feels significantly more short of breath at baseline but does note his exercise tolerance has been very poor. He has not been wearing his BiPAP although was not retaining on his last admission here He was most recently admitted to [facility] [address] from April 17 - 2021 by myself. On that occasion his diagnosis was more consistent with bacterial pneumonia without COPD exacerbation as his WBC and procalcitonin improved with antibiotics. He is currently not taking any prednisone since this admission. His diuretics were increased during that admission to Bumex 3mg PO BID as he responded to increased diuretics during the admission without bump in his Creatinine. He was set up with the heart failure clinic and subsequent gained weight despite diuretics of 4mg PO + 2mg PO daily and additional metolazone. Spironolactone has been continued at 25mg PO BID since last admission. He likely has increased salt diet at home. In the ER CT chest angiogram showed interstitial and alveolar pulmonary edema, tracheobronchial secretion with mucous plugging and bibasilar opacities suggestive of atelectasis versus pneumonitis. Procalcitonin and WBC negative. He was given Bumex 4mg IV and referred to medicine for admission and ongoing management of decompensated heart failure and hypervolemia. Principal Diagnosis Acute on chronic exacerbation of diastolic CHF, acute exacerbation COPD, acute on chronic respiratory failure Discharge Exam General-alert and oriented x3, no fevers, no chills HEENT-head atraumatic and normocephalic, TMs intact bilaterally, pupils equal and reactive to light, extraocular muscles intact Neck-no lymphadenopathy or thyromegaly, trachea midline Chest-clear to auscultation percussion. No rales wheezing or rhonchi Cardiac-regular rate and rhythm, normal S1 and S2, no murmurs Abdomen-normal bowel sounds, nontender, no hepatosplenomegaly Extremities-no cyanosis, clubbing, or edema Neuro-cranial nerves II through XII intact, motor and sensory function within normal limits, strength symmetrical , no focal deficits Psych-normal affect, normal mood Discharge Data Allergies Allergy/AdvReac Type Severity Reaction Status Date / Time No Known Allergies Allergy Verified 05/04/22 11:55 Consultations 05/19/22 14:00 ED Decision to Admit Stat Ordered Studies 05/19/22 12:42 CT angio chest PE protocol Stat 05/19/22 21:05 US venous doppler [facility] Urgent Hospital Course (1) Acute on chronic respiratory failure with hypoxia and hypercapnia: Multifactorial with mucus plugging and CHF/ pulmonary edema. He is currently back to his oxygen baseline. Treated with diuresis, incentive spirometer, duonebs and flutter valve (2) Acute on chronic diastolic heart failure with preserved ejection fraction: Bumex 4mg IV BID. Continued good diuretic response Continue spironolactone 25mg PO BID. Added metolazone this admission . We will continue at discharge Normal ejection fraction on echo Low Na, heart healthy, fluid restricted 1500ml diet Repeat chest x-ray on May 21, looked better (3) Bilateral pleural effusion: Due to CHF as above. Diuresis. Serial chest x-ray (4) Iron deficiency anemia: Iron level is normal. He received 2 units packed red blood cells this admission. Hemoglobin at discharge is 8.8. (5) COPD (chronic obstructive pulmonary disease): Treated with Duonebs QID to help with mucus plugging Treated with Trelegy Ellipta Treat CHF (6) GERD (gastroesophageal reflux disease): Continue pantoprazole therapy (7) Anxiety: Continue Lexapro and BuSpar VTE Prophylaxis - Lovenox 40mg SQ daily Diet - Low Na, heart healthy, fluid restrict 1500ml Disposition: discharge to home today, May 22 Total Time Total Time Spent Total Time Spent (In Minutes): 35 minutes Discharge Plan Discharge Items Reason For Visit: ACUTE CHF Discharge Diagnosis: Acute on chronic respiratory failure, acute on chronic diastolic CHF, acute exacerbation COPD Activity: Resume your previous activity Non-emergency contact: Primary Care Provider and Donor Recruitment Manager Call non-emergency contact if: you have any medication questions and your symptoms worsen Follow-up/Referrals: Angela Schultz MD [Primary Care Provider] - Diet: Heart Healthy Addtl Attending Provider Instructions: Metolazone has been added on Wednesday and Wednesday Pending Studies at Discharge: No Stand-Alone Forms: My [facility] [employer], Smoking Cessation Medications and DC Order Prescriptions: New metolazone 2.5 mg Tablet 2.5 mg PO .MWF Qty: 30 RF: 0 Continued docusate sodium 100 mg capsule 100 mg PO BID RF: 0 nicotine (polacrilex) 2 mg gum 2 mg buccal Q2H PRN (Reason: nicotine cravings) Qty: 120 RF: 3 magnesium 250 mg tablet 250 mg PO DAILY RF: 0 atorvastatin 80 mg tablet 80 mg PO QPM RF: 0 multivitamin [Multiple Vitamins] Tablet 1 tab PO DAILY RF: 0 ferrous sulfate 325 mg (65 mg iron) tablet 65 mg PO BID RF: 0 escitalopram oxalate 10 mg tablet 20 mg PO DAILY RF: 0 buspirone 10 mg tablet 10 mg PO TID Qty: 90 RF: 0 acetaminophen 325 mg capsule 650 mg PO QID PRN (Reason: Pain) RF: 0 spironolactone 25 mg tablet 25 mg PO BID 30 Days Qty: 60 RF: 3 bumetanide 2 mg tablet See Rx Instructions PO BID RF: 0 Trelegy Ellipta 100-62.5-25 mcg blister with device 1 inh inhalation DAILY Qty: 3 RF: 1 albuterol sulfate 90 mcg/actuation HFA aerosol inhaler 2 puff inhalation Q6H PRN (Reason: Shortness Of Breath Or Wheezing) Qty: 18 RF: 3 azelastine 137 mcg (0.1 %) aerosol,spray 2 spray intranasal DAILY Qty: 30 RF: 3 metolazone 2.5 mg tablet 2.5 mg PO DIRECTED PRN (Reason: WT GAIN) Qty: 30 RF: 2 potassium chloride 20 mEq tablet extended release 20 meq PO QAM Qty: 0 RF: 0 aspirin [Adult Low Dose Aspirin] 81 mg tablet,delayed release (DR/EC) 81 mg PO QPM RF: 0 calcium 300 mg Tablet,Chewable 600 mg PO BID RF: 0 pantoprazole 40 mg tablet,delayed release (DR/EC) 40 mg PO BID 30 Days Qty: 60 RF: 0 ipratropium-albuterol 0.5 mg-3 mg(2.5 mg base)/3 mL solution for nebulization 3 ml inhalation Q6H PRN (Reason: wheezing) Qty: 180 RF: 0 Admission Data Admit Date/Time: 05/19/22 14:11 Attending Provider: Moshe Purcell Admit Provider: Miguel Tello Primary Care Provider: Angela Schultz Other Providers: Miguel Tello ; [facility] Coding Level of Care Code D/C DAY MANAGEMENT >30 MINS Diagnoses Acute on chronic respiratory failure with hypoxia and hypercapnia J96.21; J96.22 Acute on chronic diastolic heart failure with preserved ejection fraction I50.33 Bilateral pleural effusion J90 Iron deficiency anemia D50.9 COPD (chronic obstructive pulmonary disease) J44.1 COPD type: COPD with acute exacerbation GERD (gastroesophageal reflux disease) K21.9 Anxiety F41.9
== END 2022-05-22 11:30 | disposition home or self-care (01) | DRG 291 ==
LOC: ED 11:25 → SUATTDRO 14:11 → 2S 14:11

== ENCOUNTER 2022-07-22 12:01 | Inpatient (IN) ==
[2022-07-22] MEDS ORDERED: SODIUM CHLORIDE 0.9% 500 ML IV ONE (13:23)
[2022-07-22 13:26] LABS: Appearance Urine Clear (Clear); Bacteria Urine Automated Negative (Negative); Bilirubin Urine Negative (Negative); Blood Urine Negative (Negative); Color Urine Yellow; Epithelial Cell Urine Auto 0-5 /lpf (0-5); Glucose Urine UA Negative (Negative); Ketones Urine Negative (Negative); Leukocyte Esterase Urine Trace (Negative); Nitrite Urine Negative (Negative); Protein Urine Negative (Negative); RBC Urine Automated 0-4 /hpf (0-4); Specific Gravity Urine 1.011 (1.000-1.030); Urobilinogen Urine Negative (Negative)
[2022-07-22 13:37] LABS: Hemoglobin 5.2 g/dl (14.0-18.0); Mean Corpuscular Hgb Conc 30.6 g/dL (32.0-36.0); Mean Corpuscular Volume 91.4 fL (80.0-100.0); Mean Platelet Volume 10.4 fL (9.4-12.4); Nucleated RBC # (auto) 0.04 K/uL (0-0); Nucleated RBC % (auto) 0.4 %; Platelet Count 379 K/uL (130-400); RDW Standard Deviation 47.8 fL (36.4-46.3); Red Blood Count 1.86 M/uL (4.63-6.08); White Blood Count 9.25 K/ul (4.8-10.8)
[2022-07-22] MEDS ORDERED: SODIUM CHLORIDE 0.9% 250 ML IV PRN (13:54)
--- NOTE | 2022-07-22 13:55 | XRay Report ---
SINGLE VIEW CHEST CLINICAL HISTORY: Syncope. FINDINGS: An AP, portable, upright chest radiograph is compared to study dated 05/21/2022 and correlat ed with chest CT dated 05/19/2022. The examination is degraded by portable technique and apical lordot ic positioning. The heart is enlarged. Atherosclerotic calcification of the thoracic aorta. There is pulmonary vascular congestion. Emphysematous change is observed. There are small pleural effusions wi th bibasilar scarring/atelectasis. No superimposed airspace consolidation is seen to suggest pneumoni a. No pneumothorax is seen. The skeletal structures are osteopenic. The bony thorax is grossly intact . IMPRESSION: 1. Cardiomegaly and emphysema with pulmonary vascular congestion. 2. Small pleural effusions with bibasilar scarring/atelectasis. ACT 112: Negative or not required by law. Electronically signed by: Arun Christensen M.D. 07/22/2022 1:54 PM
[2022-07-22] MEDS ORDERED: PANTOprazole 80 MG in DEXTROSE 5% 100 ML IV ONE (14:09)
[2022-07-22] MEDS ORDERED: PANTOPRAZOLE BOLUS/DRIP 1 EACH IV STA (14:09)
[2022-07-22 14:12] LABS: Basophils # (auto) 0.05 K/uL (0-0.2); Basophils % (auto) 0.5 %; Eosinophils # (auto) 0.18 K/uL (0-0.50); Eosinophils % (auto) 1.9 %; Immature Granulocytes # (auto) 0.05 K/uL (0.00-0.02); Immature Granulocytes % (auto) 0.5 %; Lymphocytes # (auto) 0.61 K/uL (1.2-3.4); Lymphocytes % (auto) 6.6 %; Monocytes % (auto) 9.7 %; Neutrophils # (auto) 7.46 K/uL (1.4-6.5); Neutrophils % (auto) 80.8 %; Polychromasia 1+
--- NOTE | 2022-07-22 14:15 | Emergency Department Note ---
Impression & Plan Symptomatic anemia, Acute exacerbation of chronic obstructive pulmonary disease, Recurrent syncope, Chronic respiratory failure with hypoxia and hypercapnia, Iron deficiency anemia ED Provider Note NAME: TIEN PIERCE AGE: 77 SEX: M ARRIVES VIA: Ambulance INFORMANT: Patient ED PROVIDER(S): Kurt Lugo MD CHIEF COMPLAINT: Recurrent syncope PLAN: Disposition: Admit MEDICAL DECISION MAKING: The patient is a pleasant 77-year-old gentleman with a past medical history of COPD on 5-6 L home O2, CHF, hypertension, iron deficiency anemia who presents to the emergency department via EMS for evaluation of recurrent syncope/near syncope over the past several days where he fell twice yesterday and the day before but was able to get up and did not want to go to the hospital with another episode today following agreeing to come be evaluated. He denies any head strike. He reports he does not think he completely lost consciousness but recalls getting up quickly and upon walking suddenly be felt weak and collapsed. He only reports some mild pain in his right elbow but otherwise denies any head pain, neck pain, back pain, chest pain or abdominal pain. He reports his leg edema at this time is good for him. He denies any recent cough or congestion from his baseline. He denies any nausea, vomiting, diarrhea or urinary symptoms. Specifically he denies any blood in his urine and denies any change in his bowel movements which she reports are always black given he takes iron chronically. He adds that he denies any change in his stool at all including no hue of red or blood. He takes a baby aspirin but denies anticoagulation. The patient is fatigued, chronically ill-appearing but in no acute distress, afebrile stable vital signs. He appears clinically dry with his 1+ bilateral lower extremity edema improved per the patient. He has mild pallor. There is minor swelling of the right elbow overlying the olecranon without bony crepitus and full range of motion is intact. Otherwise he has no traumatic findings. EKG without overt acute ischemia. CXR cardiomegaly and emphysema with pulmonary vascular congestion. Small bilateral pleural effusions are present. WBC and platelets within normal limits. H/H is low at 5.2/17 down from hemoglobin 8.4 only several weeks ago. This was confirmed on repeat H/H. Patient was consented for blood transfusion. He agrees with plan for admission. Chemistry demonstrates bicarb of 41 similar to prior in setting of chronic hypercapnic respiratory failure. BUN is 50 uptrending from recent but within prior range of values. LFTs wnl. BNP 366 increased from recent though within prior range of values in setting of known CHF. Lipase not elevated. TSH within normal limits. Iron is low at 16 UA without convincing evidence of infection. COVID-19 RNA, CHUY test was negative. CT ordered for completeness given the patient denies any change in his stool and this was negative for acute process. He was ordered for Protonix bolus and drip. Case was discussed with Dr. Nathan, [facility] [place], who will evaluate the patient for admission. Triage Nursing notes reviewed and agree them. Prior medical records reviewed Vital Signs: reviewed and remarkable for no significant abnormalities Differential diagnosis: Vasovagal event, dehydration, infection, hypoglycemia, electrolyte abnormalities, cardiac sources, intracerebral event, pulmonary embolism, seizure, toxicologic, neurologic, as well as other pathologies. ER treatment provided: See below. Diagnostics interpreted by me: ECG: Sinus rhythm with first-degree AV block, 87 bpm, nonspecific intraventricular conduction block, no overt ST elevation or depression, QTC 464, QRS 130. Cardiac Monitoring: An order for continuous cardiac monitoring was placed and demonstrated Sinus rhythm with first-degree AV block, 87 bpm, no ectopy. Laboratory studies: See below Imaging studies: See below Consultation(s): Dr. Nathan [facility] [place] HPI: The patient is a pleasant 77-year-old gentleman with a past medical history of COPD on 5-6 L home O2, CHF, hypertension, iron deficiency anemia who presents to the emergency department via EMS for evaluation of recurrent syncope/near syncope over the past several days where he fell twice yesterday and the day before but was able to get up and did not want to go to the hospital with another episode today following agreeing to come be evaluated. He denies any head strike. He reports he does not think he completely lost consciousness but recalls getting up quickly and upon walking suddenly be felt weak and collapsed. He only reports some mild pain in his right elbow but otherwise denies any head pain, neck pain, back pain, chest pain or abdominal pain. He reports his leg edema at this time is good for him. He denies any recent cough or congestion from his baseline. He denies any nausea, vomiting, diarrhea or urinary symptoms. Specifically he denies any blood in his urine and denies any change in his bowel movements which she reports are always black given he takes iron chronically. He adds that he denies any change in his stool at all including no hue of red or blood. He takes a baby aspirin but denies anticoagulation. ROS: See above HPI for pertinent positives & negatives. A total of 10 systems reviewed and were otherwise negative. VITALS:See Below PHYSICAL EXAMINATION: GENERAL: Awake, alert, fatigued-appearing, in no distress HENT: Normocephalic, atraumatic. Oropharynx with dry mucous membranes and otherwise unremarkable. EYES: Normal conjunctiva. Sclera non-icteric. EOMI. No nystamgus. PEARRL. NECK: Supple. No nuchal rigidity. FROM. No JVD. RESPIRATORY: Diminished at bases with scant intermittent wheezes. CARDIAC: Regular rate, normal rhythm. Extremities warm and well perfused. Pulses equal. ABDOMEN: Soft, non-distended. No tenderness to palpation. No rebound or guarding. No masses. RECTAL: Deferred. MUSCULOSKELETAL: Chest examination reveals no tenderness. The back is symmetric al on inspection without obvious abnormality. There is no CVA tenderness to palpation. Right elbow overlying the olecranon without bony crepitus and full range of motion is intact LOWER EXTREMITIES: Calves are equal size bilaterally and non-tender. 1+ BLE edema. No discoloration. NEURO: Normal sensorium. No sensory or motor deficits noted. 5/5 strength and SILT x 4 extremities. Cerebellar function intact including [id number], alternating palms. SKIN: No rash or jaundice noted. ED COURSE: Critical Care: I have personally spent greater than 75 minutes of critical care time in the direct management of this patient. This includes bedside care, interpretation of diagnostic studies, and testing, discussion with consultants, patient, and family members, and other required patient management activities. This 75 minutes is in excess of all separately billable procedures. Kurt Lugo MD Past Med/Surg History Medical History Acute GI bleeding Acute hyperglycemia Anemia Anemia Anemia Aortic stenosis severe asymptomatic Elevated troponin I level GERD (gastroesophageal reflux disease) History of GI bleed Hypertension Hypertension Hypoxia Hypoxia Metabolic alkalosis with respiratory acidosis SOB (shortness of breath) Tobacco use disorder Uremia Surgical History History of left-sided carotid endarterectomy 2014 S/P appendectomy Family History Father Hypertension Mother Hypotension Breast cancer Other No family history of adverse response to anesthesia No family history of bleeding disorder Social History Smoking Status: Former smoker Tobacco Type: Cigarettes packs per day: 1; Second Hand Exposure: No; Do You Dip or Chew Tobacco: No; Tobacco Cessation Education Requested by Patient: No Hx Alcohol Use: Yes Alcohol type: hard liquor Alcohol Intake Frequency: Monthly or Less Alcohol Intake Frequency Comment: 1 bottle of Manny Dupree a month Hx Substance Use: No Preferred Language: Spanish Communication Ability: Effective Visual Impairment: No Limitations Knockout Worker Required: No Beliefs That Will Affect Care: None marital status: Current Living Situation: Spouse Current Living Situation Comment: house current occupational status: retired Other Information That Helps Us Care for You: No Feels Safe at Home: Yes Safety Concerns: Feels Safe At This Time Assistive Devices: Cane, CPAP, Denture - Upper, Denture - Lower, Oxygen - Continuous and Walker Allergies Allergies Allergy/AdvReac Type Severity Reaction Status Date / Time No Known Allergies Allergy Verified 06/30/22 15:35 Home Meds Home Medications Medication Instructions Recorded Confirmed atorvastatin 80 mg tablet 80 mg PO QPM 05/20/20 07/22/22 magnesium 250 mg tablet 250 mg PO DAILY 05/20/20 07/22/22 multivitamin (Multiple Vitamins 1 tab PO DAILY 05/21/20 07/22/22 tablet) docusate sodium 100 mg capsule 100 mg PO BID 06/10/20 07/22/22 acetaminophen 325 mg capsule 650 mg PO QID PRN Pain 06/11/20 07/22/22 ferrous sulfate 325 mg (65 mg 65 mg PO BID 02/27/21 07/22/22 iron) tablet aspirin 81 mg tablet,delayed 81 mg PO QPM 03/19/22 07/22/22 release (Adult Low Dose Aspirin) calcium 300 mg chewable tablet 600 mg PO BID 03/22/22 07/22/22 escitalopram oxalate 10 mg tablet 20 mg PO DAILY 05/01/22 07/22/22 diphenhydramine HCl 25 mg capsule 25 mg PO HS 05/26/22 07/22/22 (Benadryl) melatonin 3 mg capsule 6 mg PO HS 05/26/22 07/22/22 bumetanide 2 mg tablet See Rx Instructions PO BID 05/29/22 07/22/22 metolazone 2.5 mg tablet 2.5 mg PO DAILY 05/29/22 07/22/22 buspirone 10 mg tablet 10 mg PO TID PRN Anxiety 07/22/22 07/22/22 Previous Rx's Medication Instructions Recorded spironolactone 25 mg tablet 25 mg PO BID 30 days #60 tabs 09/30/20 nicotine (polacrilex) 2 mg gum 2 mg buccal Q2H PRN nicotine 09/30/21 cravings #120 ea azelastine 137 mcg (0.1 %) nasal 2 spray intranasal DAILY #30 mL 03/10/22 spray aerosol pantoprazole 40 mg tablet,delayed 40 mg PO BID 30 days #60 tabs 03/24/22 release albuterol sulfate 90 mcg/actuation 2 puff inhalation Q6H PRN 03/27/22 aerosol inhaler Shortness Of Breath Or Wheezing #18 grams fluticasone fur. 100 mcg-umeclid 1 inh inhalation DAILY #3 Inhalers 03/27/22 62.5 mcg-vilant 25 mcg inhalat.powder (Trelegy Ellipta) ipratropium 0.5 mg-albuterol 3 mg 3 ml inhalation Q6H PRN wheezing 04/03/22 (2.5 mg base)/3 mL nebulization #180 mL soln potassium chloride 20 mEq 20 meq PO QAM #0 tabs 04/20/22 tablet,extended release Results & Data (ED) Vital Signs Vital Signs - 24 hr 07/22/22 12:27 07/22/22 13:30 07/22/22 13:30 Temperature 36.8 C Temperature Source Oral Pulse Rate 86 Pulse Rate [Apical] 83 Pulse Rhythm Regular Pulse Strength Normal Respiratory Rate 24 14 Respiratory Effort / Characteristics Non-Labored Spontaneous Respiratory Depth Normal Respiratory Pattern Regular Blood Pressure 132/49 L Blood Pressure [Left Arm] 147/49 H Blood Pressure Mean 76 Blood Pressure Mean [Left Arm] 81 Pulse Oximetry 99 95 99 Oxygen Delivery Method Nasal Cannula Nasal Cannula Nasal Cannula Oxygen Flow Rate 6 5 5 Sepsis Recent Fever Within 48 Hours No Sepsis New/Unexplained Change in Mental Status No Sepsis Action Taken by Nursing No Action Required Laboratory Data Attestation: I reviewed the patient's lab results. Result diagrams: 07/22/22 14:01 07/22/22 13:15 Lab Results 07/22/22 07/22/22 07/22/22 Range/Units 12:14 13:15 13:15 WBC 9.25 (4.8-10.8) K/ul RBC 1.86 L (4.63-6.08) M/uL Hgb 5.2 L* (14.0-18.0) g/dl Hct 17.0 L* (40.1-51.0) % MCV 91.4 (80.0-100.0) fL MCH 28.0 (25.0-34.0) pg MCHC 30.6 L (32.0-36.0) g/dL RDW Std Deviation 47.8 H (36.4-46.3) fL RDW Coeff of Vesta 15.0 H (11.5-14.5) % Plt Count 379 (130-400) K/uL MPV 10.4 (9.4-12.4) fL Immature Gran % (Auto) 0.5 % Neut % (Auto) 80.8 % Lymph % (Auto) 6.6 % [place] % (Auto) 9.7 % Eos % (Auto) 1.9 % Baso % (Auto) 0.5 % Reticulocyte % (Auto) (0.5-2.0) % Neut # (Auto) 7.46 H (1.4-6.5) K/uL Lymph # (Auto) 0.61 L (1.2-3.4) K/uL [place] # (Auto) 0.90 H (0.24-0.82) K/uL Eos # (Auto) 0.18 (0-0.50) K/uL Baso # (Auto) 0.05 (0-0.2) K/uL Reticulocyte # (0.02-0.10) 10^6/uL Immature Gran # (Auto) 0.05 H (0.00-0.02) K/uL Absolute Nucleated RBC 0.04 H (0-0) K/uL Nucleated RBC % (auto) 0.4 % Polychromasia 1+ PT (9.0-12.0) Seconds INR (0.9-1.1) APTT (21.0-31.0) Seconds PTT Ratio Sodium 134 L (136-145) mmol/L Potassium 4.0 (3.5-5.1) mmol/L Chloride 88 L (98-107) mmol/L Carbon Dioxide 41 H* (21-32) mmol/L Anion Gap 5 (3-11) BUN 50 H (6-23) mg/dl Creatinine 1.36 (0.6-1.4) mg/dl Est Cr Clr Drug Dosing 50.1 ml/min Est GFR ( Amer) 57.0 ml/min Est GFR (Non-Af Amer) 49.1 ml/min BUN/Creatinine Ratio 36.8 H (10-20) Glucose 150 H (70-99(Fasting)) mg/dl Calcium 9.9 (8.5-10.1) mg/dl Phosphorus 3.3 (2.5-4.9) mg/dl Magnesium 2.5 H (1.7-2.4) mg/dl Iron (35-175) mcg/dl Transferrin (200-360) mg/dl Ferritin (8-388) ng/ml Total Bilirubin 0.3 (0.2-1.0) mg/dl AST 18 (13-39) U/L ALT 12 (7-52) U/L Alkaline Phosphatase 70 (34-104) U/L Troponin I High Sens 17.1 (0-20) pg/ml B-Natriuretic Peptide (0-100) pg/ml Total Protein 6.8 (6.0-8.3) gm/dl Albumin 4.0 (3.4-5.0) gm/dl Globulin 2.8 (2.5-4.0) gm/dl Albumin/Globulin Ratio 1.4 (0.9-2) Lipase 38 (11-82) U/L TSH (0.300-4.500) uIu/ml Urine Color Yellow Urine Appearance Clear (Clear) Urine pH 8.0 H (4.5-7.5) Ur Specific [place] 1.011 (1.000-1.030) Urine Protein Negative (Negative) Urine Glucose (UA) Negative (Negative) Urine Ketones Negative (Negative) Urine Blood Negative (Negative) Urine Nitrite Negative (Negative) Urine Bilirubin Negative (Negative) Urine Urobilinogen Negative (Negative) Ur Leukocyte Esterase Trace H (Negative) Urine WBC (Auto) 5-10 H (0-5) /hpf Urine RBC (Auto) 0-4 (0-4) /hpf U Hyaline Cast (Auto) 1-5 (0-5) /lpf U Epithel Cells (Auto) 0-5 (0-5) /lpf Urine Bacteria (Auto) Negative (Negative) 07/22/22 07/22/22 07/22/22 Range/Units 13:15 13:15 13:15 WBC (4.8-10.8) K/ul RBC (4.63-6.08) M/uL Hgb (14.0-18.0) g/dl Hct (40.1-51.0) % MCV (80.0-100.0) fL MCH (25.0-34.0) pg MCHC (32.0-36.0) g/dL RDW Std Deviation (36.4-46.3) fL RDW Coeff of Vesta (11.5-14.5) % Plt Count (130-400) K/uL MPV (9.4-12.4) fL Immature Gran % (Auto) % Neut % (Auto) % Lymph % (Auto) % [place] % (Auto) % Eos % (Auto) % Baso % (Auto) % Reticulocyte % (Auto) (0.5-2.0) % Neut # (Auto) (1.4-6.5) K/uL Lymph # (Auto) (1.2-3.4) K/uL [place] # (Auto) (0.24-0.82) K/uL Eos # (Auto) (0-0.50) K/uL Baso # (Auto) (0-0.2) K/uL Reticulocyte # (0.02-0.10) 10^6/uL Immature Gran # (Auto) (0.00-0.02) K/uL Absolute Nucleated RBC (0-0) K/uL Nucleated RBC % (auto) % Polychromasia PT 10.7 (9.0-12.0) Seconds INR 1.0 (0.9-1.1) APTT (21.0-31.0) Seconds PTT Ratio Sodium (136-145) mmol/L Potassium (3.5-5.1) mmol/L Chloride (98-107) mmol/L Carbon Dioxide (21-32) mmol/L Anion Gap (3-11) BUN (6-23) mg/dl Creatinine (0.6-1.4) mg/dl Est Cr Clr Drug Dosing ml/min Est GFR ( Amer) ml/min Est GFR (Non-Af Amer) ml/min BUN/Creatinine Ratio (10-20) Glucose (70-99(Fasting)) mg/dl Calcium (8.5-10.1) mg/dl Phosphorus (2.5-4.9) mg/dl Magnesium (1.7-2.4) mg/dl Iron (35-175) mcg/dl Transferrin (200-360) mg/dl Ferritin (8-388) ng/ml Total Bilirubin (0.2-1.0) mg/dl AST (13-39) U/L ALT (7-52) U/L Alkaline Phosphatase (34-104) U/L Troponin I High Sens (0-20) pg/ml B-Natriuretic Peptide 366 H (0-100) pg/ml Total Protein (6.0-8.3) gm/dl Albumin (3.4-5.0) gm/dl Globulin (2.5-4.0) gm/dl Albumin/Globulin Ratio (0.9-2) Lipase (11-82) U/L TSH 2.014 (0.300-4.500) uIu/ml Urine Color Urine Appearance (Clear) Urine pH (4.5-7.5) Ur Specific [place] (1.000-1.030) Urine Protein (Negative) Urine Glucose (UA) (Negative) Urine Ketones (Negative) Urine Blood (Negative) Urine Nitrite (Negative) Urine Bilirubin (Negative) Urine Urobilinogen (Negative) Ur Leukocyte Esterase (Negative) Urine WBC (Auto) (0-5) /hpf Urine RBC (Auto) (0-4) /hpf U Hyaline Cast (Auto) (0-5) /lpf U Epithel Cells (Auto) (0-5) /lpf Urine Bacteria (Auto) (Negative) 07/22/22 07/22/22 07/22/22 Range/Units 13:15 13:15 14:01 WBC (4.8-10.8) K/ul RBC (4.63-6.08) M/uL Hgb 5.2 L* (14.0-18.0) g/dl Hct 17.0 L* (40.1-51.0) % MCV (80.0-100.0) fL MCH (25.0-34.0) pg MCHC (32.0-36.0) g/dL RDW Std Deviation (36.4-46.3) fL RDW Coeff of Vesta (11.5-14.5) % Plt Count (130-400) K/uL MPV (9.4-12.4) fL Immature Gran % (Auto) % Neut % (Auto) % Lymph % (Auto) % [place] % (Auto) % Eos % (Auto) % Baso % (Auto) % Reticulocyte % (Auto) 8.6 H (0.5-2.0) % Neut # (Auto) (1.4-6.5) K/uL Lymph # (Auto) (1.2-3.4) K/uL [place] # (Auto) (0.24-0.82) K/uL Eos # (Auto) (0-0.50) K/uL Baso # (Auto) (0-0.2) K/uL Reticulocyte # 0.16 H (0.02-0.10) 10^6/uL Immature Gran # (Auto) (0.00-0.02) K/uL Absolute Nucleated RBC (0-0) K/uL Nucleated RBC % (auto) % Polychromasia PT (9.0-12.0) Seconds INR (0.9-1.1) APTT 20.2 L (21.0-31.0) Seconds PTT Ratio 0.7 Sodium (136-145) mmol/L Potassium (3.5-5.1) mmol/L Chloride (98-107) mmol/L Carbon Dioxide (21-32) mmol/L Anion Gap (3-11) BUN (6-23) mg/dl Creatinine (0.6-1.4) mg/dl Est Cr Clr Drug Dosing ml/min Est GFR ( Amer) ml/min Est GFR (Non-Af Amer) ml/min BUN/Creatinine Ratio (10-20) Glucose (70-99(Fasting)) mg/dl Calcium (8.5-10.1) mg/dl Phosphorus (2.5-4.9) mg/dl Magnesium (1.7-2.4) mg/dl Iron 16 L (35-175) mcg/dl Transferrin 294 (200-360) mg/dl Ferritin 21.0 (8-388) ng/ml Total Bilirubin (0.2-1.0) mg/dl AST (13-39) U/L ALT (7-52) U/L Alkaline Phosphatase (34-104) U/L Troponin I High Sens (0-20) pg/ml B-Natriuretic Peptide (0-100) pg/ml Total Protein (6.0-8.3) gm/dl Albumin (3.4-5.0) gm/dl Globulin (2.5-4.0) gm/dl Albumin/Globulin Ratio (0.9-2) Lipase (11-82) U/L TSH (0.300-4.500) uIu/ml Urine Color Urine Appearance (Clear) Urine pH (4.5-7.5) Ur Specific [place] (1.000-1.030) Urine Protein (Negative) Urine Glucose (UA) (Negative) Urine Ketones (Negative) Urine Blood (Negative) Urine Nitrite (Negative) Urine Bilirubin (Negative) Urine Urobilinogen (Negative) Ur Leukocyte Esterase (Negative) Urine WBC (Auto) (0-5) /hpf Urine RBC (Auto) (0-4) /hpf U Hyaline Cast (Auto) (0-5) /lpf U Epithel Cells (Auto) (0-5) /lpf Urine Bacteria (Auto) (Negative) Administered Medications Atorvastatin Calcium (Atorvastatin 40 Mg Tab) 80 mg PO QPM MARZENA Stop: 08/21/22 20:59 Last Admin: 07/22/22 21:39 Dose: 80 mg Documented By: SB Calcium Carbonate (Calcium Carbonate 1250mg Tab) 1,250 mg PO BID MARZENA Stop: 08/21/22 20:59 Last Admin: 07/22/22 21:41 Dose: 1,250 mg Documented By: SB Ferrous Sulfate (Ferrous Sulfate 325 Mg Tab) 65 mg PO BID MARZENA Stop: 08/21/22 20:59 Last Admin: 07/22/22 21:40 Dose: 65 mg Documented By: TANYA Pantoprazole Sodium 40 mg/ (Dextrose) 100 mls @ 20 mls/hr IV Q5H MARZENA Stop: 08/21/22 14:29 Last Admin: 07/22/22 21:41 Dose: 8 mg/hr, 20 mls/hr Documented By: Infusion: 07/22/22 20:07 Dose: 8 mg/hr, 20 mls/hr Documented By: Admin: 07/22/22 15:07 Dose: 8 mg/hr, 20 mls/hr Documented By: SUNITA Melatonin (Melatonin 3 Mg Tab) 6 mg PO HS MARZENA Stop: 08/21/22 20:59 Last Admin: 07/22/22 21:44 Dose: 6 mg Documented By: TANYA Spironolactone (Spironolactone 25 Mg Tab) 25 mg PO BID MARZENA Stop: 08/21/22 20:59 Last Admin: 07/22/22 21:42 Dose: 25 mg Documented By: TANYA Discontinued Medications Sodium Chloride (Nss) 500 mls @ 999 mls/hr IV .Q31M ONE Stop: 07/22/22 13:53 Last Admin: 07/22/22 13:30 Dose: 999 mls/hr Documented By: TAYA Pantoprazole Sodium (Protonix Bolus/Drip) 0 mls @ 1 mls/hr IV ONE STA Stop: 07/22/22 14:10 Last Admin: 07/22/22 15:16 Dose: Not Given Documented By: SUNITA Pantoprazole Sodium 80 mg/ (Dextrose) 120 mls @ 400 mls/hr IV NOW ONE Stop: 07/22/22 14:26 Last Infusion: 07/22/22 16:36 Dose: 0 mls/hr Documented By: Admin: 07/22/22 15:07 Dose: 400 mls/hr Documented By: SUNITA Ioversol (Optiray 300 100ml) 92 ml IV ONCE ONE Stop: 07/22/22 16:16 Last Admin: 07/22/22 16:16 Dose: 92 ml Documented By: [facility] Imaging Data Radiologist's Impression: Abdomen/Pelvis CT 07/22/22 14:07 CT OF THE ABDOMEN AND PELVIS WITH CONTRAST CLINICAL HISTORY: fall/syncope, anemia, black stool COMPARISON STUDY: Abdominal ultrasound June 12, 2020. TECHNIQUE: Following IV administration of 92 mL of Optiray, axial images of the abdomen and pelvis were obtained from the lung bases to the proximal femurs. Im ages were reviewed in the axial, sagittal, and coronal planes. IV contrast was administered without complication. Automated exposure control was utilized for the study. A dose lowering technique was utilized adhering to the principles of ALARA. CT DOSE: 667.63 mGy.cm FINDINGS: A small left pleural effusion with pleural thickening is similar to CT of May 11, 2022. This may be chronic. There is a trace right pleural effusion. Interlobular septal thickening is noted with groundglass opacities. Prosthetic aortic valve is noted. There is cardiomegaly. Gynecomastia Hypodense bilateral adrenal nodules are unchanged since CT of September 15, 2015. These are benign given stability. There is no pneumatosis, free air or portal venous gas. No biliary or pancreatic ductal dilatation is present. Water attenuation 2.1 cm p ancreatic head lesion is similar to chest CT of September 15, 2015. The spleen and kidneys are unremarkable with the exception of a few suspected cysts within lower pole of the left kidney. There is no hydronephrosis. Extensive aortoiliac atherosclerotic plaque is noted. There is no evidence for a bowel obstruction. Caliber and wall thickness of small and large bowel are normal. Sensitivity for detection mucosal lesions is diminished given CT technique. However, none are identified. There is no lymphadenopathy. There is no ascites. No acute fracture within the lumbar spine, pelvis or hips. Appendix is not visualized. IMPRESSION: 1. No acute process within the abdomen or pelvis. 2. No bowel obstruction. No bowel wall thickening. 3. No change in a small left pleural effusion with pleural thickening since chest CT of May 11, 2022. This may reflect a chronic effusion. 4. Findings suggestive of mild pulmonary edema within the lower lungs. ACT 112: Negative or not required by law. Electronically signed by: Anjum Chaudhry M.D. 07/22/2022 4:32 PM Chest X-Ray 07/22/22 13:02 SINGLE VIEW CHEST CLINICAL HISTORY: Syncope. FINDINGS: An AP, portable, upright chest radiograph is compared to study dated 05/21/2022 and correlated with chest CT dated 05/19/2022. The examination is degraded by portable technique and apical lordotic positioning. The heart is enlarged. Atherosclerotic calcification of the thoracic aorta. There is pulmonary vascular congestion. Emphysematous change is observed. There are small pleural effusions with bibasilar scarring/atelectasis. No superimposed airspace consolidation is seen to suggest pneumonia. No pneumothorax is seen. The skeletal structures are osteopenic. The bony thorax is grossly intact. IMPRESSION: 1. Cardiomegaly and emphysema with pulmonary vascular congestion. 2. Small pleural effusions with bibasilar scarring/atelectasis. ACT 112: Negative or not required by law. Electronically signed by: Arun Christensen M.D. 07/22/2022 1:54 PM Abdomen/Pelvis CT 07/22/22 14:07 CT OF THE ABDOMEN AND PELVIS WITH CONTRAST CLINICAL HISTORY: fall/syncope, anemia, black stool COMPARISON STUDY: Abdominal ultrasound June 12, 2020. TECHNIQUE: Following IV administration of 92 mL of Optiray, axial images of the abdomen and pelvis were obtained from the lung bases to the proximal femurs. Images were reviewed in the axial, sagittal, and coronal planes. IV contrast was administered without complication. Automated exposure control was utilized for the study. A dose lowering technique was utilized adhering to the principles of ALARA. CT DOSE: 667.63 mGy.cm FINDINGS: A small left pleural effusion with pleural thickening is similar to CT of May 11, 2022. This may be chronic. There is a trace right pleural effusion. Interlobular septal thickening is noted with groundglass opacities. Prosthetic aortic valve is noted. There is cardiomegaly. Gynecomastia Hypodense bilateral adrenal nodules are unchanged since CT of September 15, 2015. These are benign g iven stability. There is no pneumatosis, free air or portal venous gas. No biliary or pancreatic ductal dilatation is present. Water attenuation 2.1 cm pancreatic head lesion is similar to chest CT of September 15, 2015. The spleen and kidneys are unremarkable with the exception of a few suspected cysts within lower pole of the left kidney. There is no hydronephrosis. Extensive aortoiliac atherosclerotic plaque is noted. There is no evidence for a bowel obstruction. Caliber and wall thickness of small and large bowel are normal. Sensitivity for detection mucosal lesions is diminished given CT technique. However, none are identified. There is no lymphadenopathy. There is no ascites. No acute fracture within the lumbar spine, pelvis or hips. Appendix is not visualized. IMPRESSION: 1. No acute process within the abdomen or pelvis. 2. No bowel obstruction. No bowel wall thickening. 3. No change in a small left pleural effusion with pleural thickening since chest CT of May 11, 2022. This may reflect a chronic effusion. 4. Findings suggestive of mild pulmonary edema within the lower lungs. ACT 112: Negative or not required by law. Electronically signed by: Anjum Chaudhry M.D. 07/22/2022 4:32 PM Discharge Plan Visit Data Chief Complaint: Syncope (Near Syncope) ED Provider: Kurt Lugo Discharge Problem: Symptomatic anemia, Acute exacerbation of chronic obstructive pulmonary disease, Recurrent syncope, Chronic respiratory failure with hypoxia and hyperc apnia, Iron deficiency anemia Patient Disposition: Admitted As Inpatient Discharge Instructions Interventions: ED Discharge Assessment Last Done: 07/22/22 16:15
[2022-07-22 14:24] LABS: Troponin I High Sensitivity 17.1 pg/ml (0-20)
--- NOTE | 2022-07-22 14:30 | History & Physical Report ---
Date of Service July 22, 2022 Assessment & Plan (1) Symptomatic anemia: Plan: - H/H 5.2/17.0, MCV 91.4, MCHC 30.6. H&H last checked on 06/30, was 8.4/27.4 at that point. - BUN 50, which is actually near patient's baseline, likely from use of multiple diuretics for HFpEF and less likely indicative of UGIB. - Multiple syncopal episodes over the past several days. - No obvious source for blood loss currently, however suspect GI bleed given history of AVMs, 6 patchy cecal angiodysplastic lesions ablate din 2018. - Patient is on chronic iron supplementation, with chronic dark stools, however denies pain with BMs or BRBPR. - Not on any blood thinners other than ASA (holding this), no blood in urine, or hemoptysis. - Type and cross + consent achieved in ED, with 2 units pRBCs to be transfused and 1 unit on standby if needed. - Will recheck H/H after transfusion is complete. - NPO for now. - GI consulted due to concern for GI bleed. - Started on PPI gtt w/ bolus. - Will hold off on IVF while he is being transfused as he does have HFpEF and is extremely high risk for decompensation. - He did receive 500 cc NS bolus in ED. - He appears dry or at least euvolemic on exam, but CXR shows evidence of vascular congestion. - Dry weight 185 lbs. (2) Iron deficiency anemia: Plan: - Has been on iron supplementation for years as he has been chronically anemic - H/H significantly reduced from labs earlier this month. - Iron 16 (L), transferrin 294, ferritin 21 (3) COPD (chronic obstructive pulmonary disease): Plan: - No evidence of acute exacerbation today. - 99% on 5 L NC (baseline requirement). - Continue home inhalers. (4) GERD (gastroesophageal reflux disease): Plan: - Hold po PPI for Protonix gtt w/ bolus. (5) Tobacco use disorder: Plan: - Former smoker, quit since last admission. No longer requiring nicotine patches. (6) Chronic diastolic (congestive) heart failure: Plan: - Continue Bumex 4 mg BID, metolazone 2.5 mg daily, and spironolactone 25 mg BID. - Very high risk for decompensation. No further IVF. If patient becomes SOB after blood transfusion, will give additional diuretic. - Dry weight 185 lbs. - Monitor strict I/Os, daily weight, low Na diet when eating and 1.5 L fluid restriction. - Echo from April: EF 55-60%, moderate LVH, dilated right heart and increased PA end diastolic pressures. - Continue statin therapy for underlying CAD. (7) Allergic rhinitis with postnasal drip: Plan: - Continue azelastine spray. (8) Anxiety: Plan: - Continue Lexapro, BuSpar. Plan - Admit to PC[facility]. - SCDas for VTE ppx. -Full Code. History of Present Illness Chief Complaint: syncope events at home for several days Primary Care Provider: Angela Schultz MD Richard Lobo is a 77-year-old male with history significant for severe COPD on 5-6L O2 at home, HFpEF, HTN, and aortic stenosis s/p TAVR in 2019, anemia, and ABDIEL who presents after several syncopal episodes and falls at home. Over the past several days at home, he is had several falls where he feels very weak and collapses suddenly. He denies hitting his head or loss of consciousness with the falls. His right elbow is painful, however denies head, neck, abdominal, chest, or other extremity pain. He is a current smoker however denies any exacerbation in his chronic cough or sputum production. Without any angina pectoris or anginal equivalent symptoms. He continues to use 5-6 L of oxygen at home and has been compliant with his diuretic therapy. He does take iron supplementation and has for years, therefore it is difficult for him to assess his stools for blood, however notes they have been dark and normal for him, not painful or with any obvious red blood in them. Denies dysuria, urinary retention, frequency or hematuria. Other than a baby aspirin daily, he is not on any DOAC's or other blood thinners. In the ED, been mildly hypertensive with a BP 147/49, otherwise vital signs are within normal limits, HR is in the 80s and he is hemodynamically stable. He is 99% on his home O2 requirement of 5 L NC. Labs are significant for H/H 5.2/17.0, CO2 41, given his severe COPD this is about his baseline. BUN 50, creatinine 1.36, baseline seems to be in the 0.91.2 range. His BNP is 366, hsTrop is 17.1. UA without evidence of infection. CXR with evidence of pulmonary vascular congestion and small pleural effusions with bibasilar scarring and atelectasis. Allergies Allergy/AdvReac Type Severity Reaction Status Date / Time No Known Allergies Allergy Verified 06/30/22 15:35 Home Medications Medication Instructions Recorded Confirmed Type atorvastatin 80 mg tablet 80 mg PO QPM 05/20/20 07/22/22 History magnesium 250 mg tablet 250 mg PO DAILY 05/20/20 07/22/22 History multivitamin (Multiple Vitamins 1 tab PO DAILY 05/21/20 07/22/22 History tablet) docusate sodium 100 mg capsule 100 mg PO BID 06/10/20 07/22/22 History acetaminophen 325 mg capsule 650 mg PO QID PRN Pain 06/11/20 07/22/22 History spironolactone 25 mg tablet 25 mg PO BID 30 days #60 tabs 09/30/20 07/22/22 Rx ferrous sulfate 325 mg (65 mg 65 mg PO BID 02/27/21 07/22/22 History iron) tablet nicotine (polacrilex) 2 mg gum 2 mg buccal Q2H PRN nicotine 09/30/21 07/22/22 Rx cravings #120 ea azelastine 137 mcg (0.1 %) nasal 2 spray intranasal DAILY #30 mL 03/10/22 07/22/22 Rx spray aerosol aspirin 81 mg tablet,delayed 81 mg PO QPM 03/19/22 07/22/22 History release (Adult Low Dose Aspirin) calcium 300 mg chewable tablet 600 mg PO BID 03/22/22 07/22/22 History pantoprazole 40 mg tablet,delayed 40 mg PO BID 30 days #60 tabs 03/24/22 07/22/22 Rx release albuterol sulfate 90 mcg/actuation 2 puff inhalation Q6H PRN 03/27/22 07/22/22 Rx aerosol inhaler Shortness Of Breath Or Wheezing #18 grams fluticasone fur. 100 mcg-umeclid 1 inh inhalation DAILY #3 Inhalers 03/27/22 07/22/22 Rx 62.5 mcg-vilant 25 mcg inhalat.powder (Trelegy Ellipta) ipratropium 0.5 mg-albuterol 3 mg 3 ml inhalation Q6H PRN wheezing 04/03/22 07/22/22 Rx (2.5 mg base)/3 mL nebulization #180 mL soln potassium chloride 20 mEq 20 meq PO QAM #0 tabs 04/20/22 07/22/22 Rx tablet,extended release escitalopram oxalate 10 mg tablet 20 mg PO DAILY 05/01/22 07/22/22 History diphenhydramine HCl 25 mg capsule 25 mg PO HS 05/26/22 07/22/22 History (Benadryl) melatonin 3 mg capsule 6 mg PO HS 05/26/22 07/22/22 History bumetanide 2 mg tablet See Rx Instructions PO BID 05/29/22 07/22/22 History metolazone 2.5 mg tablet 2.5 mg PO DAILY 05/29/22 07/22/22 History buspirone 10 mg tablet 10 mg PO TID PRN Anxiety 07/22/22 07/22/22 History Past Med/Surg History Medical History Acute GI bleeding Acute hyperglycemia Anemia Anemia Anemia Aortic stenosis severe asymptomatic Elevated troponin I level GERD (gastroesophageal reflux disease) History of GI bleed Hypertension Hypertension Hypoxia Hypoxia Metabolic alkalosis with respiratory acidosis SOB (shortness of breath) Tobacco use disorder Uremia Surgical History History of left-sided carotid endarterectomy 2014 S/P appendectomy Family History Father Hypertension Mother Hypotension Breast cancer Other No family history of adverse response to anesthesia No family history of bleeding disorder Social History Smoking Status: Former smoker Tobacco Type: Cigarettes packs per day: 1; Second Hand Exposure: No; Do You Dip or Chew Tobacco: No; Tobacco Cessation Education Requested by Patient: No Hx Alcohol Use: Yes Alcohol type: hard liquor Alcohol Intake Frequency: Monthly or Less Alcohol Intake Frequency Comment: 1 bottle of Manny Dupree a month Hx Substance Use: No Preferred Language: Tamaz[place] Communication Ability: Effective Visual Impairment: No Limitations Channel Marketing Coordinator Required: No Beliefs That Will Affect Care: None marital status: Current Living Situation: Spouse Current Living Situation Comment: house current occupational status: retired Other Information That Helps Us Care for You: No Feels Safe at Home: Yes Safety Concerns: Feels Safe At This Time Assistive Devices: Cane, CPAP, Denture - Upper, Denture - Lower, Oxygen - Continuous and Walker Review of Systems Review of Systems: Constitutional:sudden onset weakness, lightheadedness leading to falls x several days; No fever/chills, fatigue, myalgias, anorexia, night sweats Eyes: No diplopia, no worsening or blurred vision ENT: normal hearing, no trouble swallowing Respiratory: No cough, sputum, dyspnea at rest or on exertion Cardiovascular: No chest pain, tightness or palpitations Abdomen: No pain, nausea, vomiting, diarrhea or constipation : Denies dysuria, hematuria, increased urgency/frequency, urinary retention Musculoskeletal: No joint pain, calf pain, swelling Neurologic: No weakness, numbness/tingling, or balance problems Psychiatric: No anxiety or depression Skin: No rash or itch Physical Exam Physical Exam: General: awake, alert, no apparent distress, converses comfortably on 5 L NC, his baseline requirement Head: Normocephalic, atraumatic ENT: PERRL, EOMI, no pharyngeal exudate, mucous membranes moist Chest: diminished breath sounds b/l in lower lung anderson, otherwise clear to auscultation, no adventitious breath sounds Cardiac: Regular rate and rhythm, no murmur, no JVD, normal peripheral pulses, good capillary refill Abdominal: NABS x 4 quadrants, soft, nontender to palpation, no rebound, guarding or tenderness Extremities: Normal inspection, no peripheral edema or erythema, calfs n ontender to palpation Psych: Normal mood and affect Neuro: AAO x 3, strength intact bilaterally and rated 5/5, no motor deficits, speech is clear, no peripheral sensory deficits Skin: no rash or erythema Results & Data Results & Data ([facility]) Vital Signs (Past 12 Hours) Vital Signs Temp Pulse Pulse Resp BP BP Pulse Ox 07/22/22 13:30 83 14 147/49 H 99 07/22/22 13:30 95 07/22/22 12:27 36.8 C 86 24 132/49 L 99 O2 Del Method O2 Flow Rate 07/22/22 13:30 Nasal Cannula 5 07/22/22 13:30 Nasal Cannula 5 07/22/22 12:27 Nasal Cannula 6 Laboratory Results Abnormal lab results 07/22/22 07/22/22 07/22/22 Range/Units 12:14 13:15 13:15 RBC 1.86 L (4.63-6.08) M/uL Hgb 5.2 L* (14.0-18.0) g/dl Hct 17.0 L* (40.1-51.0) % MCHC 30.6 L (32.0-36.0) g/dL RDW Std Deviation 47.8 H (36.4-46.3) fL RDW Coeff of V[place] 15.0 H (11.5-14.5) % Neut # (Auto) 7.46 H (1.4-6.5) K/uL Lymph # (Auto) 0.61 L (1.2-3.4) K/uL [place] # (Auto) 0.90 H (0.24-0.82) K/uL Immature Gran # (Auto) 0.05 H (0.00-0.02) K/uL Absolute Nucleated RBC 0.04 H (0-0) K/uL Sodium 134 L (136-145) mmol/L Chloride 88 L (98-107) mmol/L Carbon Dioxide 41 H* (21-32) mmol/L BUN 50 H (6-23) mg/dl BUN/Creatinine Ratio 36.8 H (10-20) Glucose 150 H (70-99(Fasting)) mg/dl Magnesium 2.5 H (1.7-2.4) mg/dl B-Natriuretic Peptide (0-100) pg/ml Urine pH 8.0 H (4.5-7.5) Ur Leukocyte Esterase Trace H (Negative) Urine WBC (Auto) 5-10 H (0-5) /hpf 07/22/22 Range/Units 13:15 RBC (4.63-6.08) M/uL Hgb (14.0-18.0) g/dl Hct (40.1-51.0) % MCHC (32.0-36.0) g/dL RDW Std Deviation (36.4-46.3) fL RDW Coeff of Vesta (11.5-14.5) % Neut # (Auto) (1.4-6.5) K/uL Lymph # (Auto) (1.2-3.4) K/uL [place] # (Auto) (0.24-0.82) K/uL Immature Gran # (Auto) (0.00-0.02) K/uL Absolute Nucleated RBC (0-0) K/uL Sodium (136-145) mmol/L Chloride (98-107) mmol/L Carbon Dioxide (21-32) mmol/L BUN (6-23) mg/dl BUN/Creatinine Ratio (10-20) Glucose (70-99(Fasting)) mg/dl Magnesium (1.7-2.4) mg/dl B-Natriuretic Peptide 366 H (0-100) pg/ml Urine pH (4.5-7.5) Ur Leukocyte Esterase (Negative) Urine WBC (Auto) (0-5) /hpf Diagnostic Findings Chest X-Ray 07/22/22 13:02 SINGLE VIEW CHEST CLINICAL HISTORY: Syncope. FINDINGS: An AP, portable, upright chest radiograph is compared to study dated 05/21/2022 and correlated with chest CT dated 05/19/2022. The examination is degraded by portable technique and apical lordotic positioning. The heart is enlarged. Atherosclerotic calcification of the thoracic aorta. There is pulmonary vascular congestion. Emphysematous change is observed. There are small pleural effusions with bibasilar scarring/atelectasis. No superimposed airspace consolidation is seen to suggest pneumonia. No pneumothorax is seen. The skeletal structures are osteopenic. The bony thorax is grossly intact. IMPRESSION: 1. Cardiomegaly and emphysema with pulmonary vascular congestion. 2. Small pleural effusions with bibasilar scarring/atelectasis. ACT 112: Negative or not required by law. Electronically signed by: Arun Christensen M.D. 07/22/2022 1:54 PM ECG Additional Comments: Sinus rhythm with 1st degree A-V block Non-specific intra-ventricular conduction block Cannot rule out Septal infarct (cited on or before 22-JUL-2022) Abnormal ECG When compared with ECG of 19-MAY-2022 11:44, No significant change was found. Code Status & VTE Plan Code Status Full Code. Supervising Physician Co-Signing Physician Notes Patient seen and examined, chart reviewed, case discussed with Ami Burk PA-C and I agree with the assessment and plan as above except as otherwise noted Labs and images reviewed Richard is a 77-year-old male with history of severe COPD who presents after multiple syncopal episodes with falls, and progressive weakness over several weeks. He is on 5 to 6 L of oxygen at home. No DOAC's. On initial evaluation he has H&H of 5.2, VBG unremarkable. Mildly elevated troponin. At bedside he is not having any pain, feels fatigued, denies lightheadedness/dizziness/chest pain/chest pressure and denies increased shortness of breath. Symptomatic anemia. Interval decrease from 8/9 on 8.4, multiple syncopal episodes and orthostasis. Patient does have a history of AVMs of the cecum. Denies recent active bleeding/melena but is on iron with chronically dark stools at home. Hemoccult pending, given history started on PPI gtt. 2 units transfusing. Defer additional fluids at this time given heart failure risk for decompensation, may also need Lasix if additional units are given. Did receive 100 cc NSS and is overall euvolemic at the bedside but with vascular congestion on CXR. Ferritin 21, pending transferrin saturation likely profoundly deficient and would benefit from Venofer once stable. Continue on telemetry.Last echo 04/2022 reviewed; ejection fraction 55-60% with elevated pulmonary pressures. COPD: Severe, 5 L baseline, stable with no evidence of acute exacerbation CHF: Mildly volume overloaded on CXR without clinical signs of overload or crackles. Monitor carefully, Lasix with additional units of blood and follow for confusion related overload Agree with above PG Care Time/CCT Total # of Minutes Spent Total Time Spent with Patient: Total time spent is greater than 50% in coordination of care (as documented) at patient's floor/unit and/or counseling patient: Coding Level of Care Code 01691 Initial Inpt Care Lvl 3 Diagnoses Symptomatic anemia D64.9 Iron deficiency anemia D50.9 COPD (chronic obstructive pulmonary disease) J44.1 COPD type: COPD with acute exacerbation GERD (gastroesophageal reflux disease) K21.9 Tobacco use disorder F17.200 Chronic diastolic (congestive) heart failure I50.32 Allergic rhinitis with postnasal drip J30.9; R09.82 Anxiety F41.9 (1) COPD (chronic obstructive pulmonary disease) COPD type: COPD with acute exacerbation Qualified Code(s): J44.1 - Chronic obstructive pulmonary disease with (acute) exacerbation
[2022-07-22 14:34] LABS: Albumin Globulin Ratio 1.4 (0.9-2); BUN Creatinine Ratio 36.8 (10-20); Bilirubin,Total 0.3 mg/dl (0.2-1.0); Calcium 9.9 mg/dl (8.5-10.1); Creatinine Clr Calc Pharmacy 50.1 ml/min; Est GFR (Non-African American) 49.1 ml/min; Globulin 2.8 gm/dl (2.5-4.0); Magnesium 2.5 mg/dl (1.7-2.4); Phosphorus 3.3 mg/dl (2.5-4.9); Total Protein 6.8 gm/dl (6.0-8.3)
[2022-07-22 14:35] LABS: Prothrombin Time 10.7 Seconds (9.0-12.0)
[2022-07-22] MEDS: PANTOprazole 40 MG in DEXTROSE 5% 100 ML IV SCH ×2 (15:07→21:41)
[2022-07-22 15:29] LABS: Partial Thromboplastin Ratio 0.7; Partial Thromboplastin Time 20.2 Seconds (21.0-31.0)
[2022-07-22 15:39] LABS: Hemoglobin 5.2 g/dl (14.0-18.0); Reticulocyte % 8.6 % (0.5-2.0); Reticulocytes # 0.16 10^6/uL (0.02-0.10)
[2022-07-22] MEDS ORDERED: OPTIRAY 300 100mL IV ONE (16:15)
--- NOTE | 2022-07-22 16:34 | CT Scan Report ---
CT OF THE ABDOMEN AND PELVIS WITH CONTRAST CLINICAL HISTORY: fall/syncope, anemia, black stool COMPARISON STUDY: Abdominal ultrasound June 12, 2020. TECHNIQUE: Following IV administration of 92 mL of Optiray, axial images of the abdomen and pelvis we re obtained from the lung bases to the proximal femurs. Images were reviewed in the axial, sagittal, and coronal planes. IV contrast was administered without complication. Automated exposure control wa s utilized for the study. A dose lowering technique was utilized adhering to the principles of ALARA . CT DOSE: 667.63 mGy.cm FINDINGS: A small left pleural effusion with pleural thickening is similar to CT of May 11, 2022. Th is may be chronic. There is a trace right pleural effusion. Interlobular septal thickening is noted w ith groundglass opacities. Prosthetic aortic valve is noted. There is cardiomegaly. Gynecomastia Hypo dense bilateral adrenal nodules are unchanged since CT of September 15, 2015. These are benign given st ability. There is no pneumatosis, free air or portal venous gas. No biliary or pancreatic ductal dila tation is present. Water attenuation 2.1 cm pancreatic head lesion is similar to chest CT of September 15, 2015. The spleen and kidneys are unremarkable with the exception of a few suspected cysts within lower pole of the left kidney. There is no hydronephrosis. Extensive aortoiliac atherosclerotic plaqu e is noted. There is no evidence for a bowel obstruction. Caliber and wall thickness of small and lar ge bowel are normal. Sensitivity for detection mucosal lesions is diminished given CT technique. Pascual bk, none are identified. There is no lymphadenopathy. There is no ascites. No acute fracture within the lumbar spine, pelvis or hips. Appendix is not visualized. IMPRESSION: 1. No acute process within the abdomen or pelvis. 2. No bowel obstruction. No bowel wall thickening. 3. No change in a small left pleural effusion with pleural thickening since chest CT of May 11, 2022 . This may reflect a chronic effusion. 4. Findings suggestive of mild pulmonary edema within the lower lungs. ACT 112: Negative or not required by law. Electronically signed by: Anjum Chaudhry M.D. 07/22/2022 4:32 PM
[2022-07-22] MEDS ORDERED: ALBUT/IPRATROP 3MG/0.5MG NEB 3 ML VIAL INH PRN (16:55)
[2022-07-22] MEDS ORDERED: ACETAMINOPHEN 325 MG TAB PO PRN (16:55)
[2022-07-22] MEDS ORDERED: ALBUTEROL HFA 8 GM INHALER INH PRN (16:55)
[2022-07-22] MEDS ORDERED: busPIRone 5 MG TAB PO PRN (16:55)
[2022-07-22] MEDS ORDERED: POLYETHYLENE (MIRALAX) 17 GM PACK PO PRN (16:55)
[2022-07-22] MEDS ORDERED: ONDANSETRON INJ 2 MG/ML 2 ML VIAL IV PRN (16:55)
[2022-07-22] MEDS ORDERED: BUMETANIDE 1 MG TAB PO SCH (21:00)
[2022-07-22] MEDS: ATORVASTATIN 40 MG TAB PO SCH (21:39)
[2022-07-22] MEDS: FERROUS SULFATE 325 MG TAB PO SCH (21:40)
[2022-07-22] MEDS: CALCIUM CARBONATE 1250MG TAB PO SCH (21:41)
[2022-07-22] MEDS: SPIRONOLACTONE 25 MG TAB PO SCH (21:42)
[2022-07-22] MEDS: MELATONIN 3 MG TAB PO SCH (21:44)
[2022-07-23] MEDS: PANTOprazole 40 MG in DEXTROSE 5% 100 ML IV SCH ×5 (02:33→19:46)
[2022-07-23 03:57] LABS: Hematocrit (blood only) 20.8 % (40.1-51.0); Hemoglobin 6.5 g/dl (14.0-18.0); Mean Corpuscular Hemoglobin 28.5 pg (25.0-34.0); Mean Corpuscular Hgb Conc 31.3 g/dL (32.0-36.0); Mean Corpuscular Volume 91.2 fL (80.0-100.0); Nucleated RBC # (auto) 0.02 K/uL (0-0); Nucleated RBC % (auto) 0.3 %; Platelet Count 332 K/uL (130-400); RDW Coefficient of Variation 14.6 % (11.5-14.5); RDW Standard Deviation 47.4 fL (36.4-46.3); Red Blood Count 2.28 M/uL (4.63-6.08); White Blood Count 7.99 K/ul (4.8-10.8)
[2022-07-23 04:04] LABS: Partial Thromboplastin Ratio 0.8; Partial Thromboplastin Time 22.2 Seconds (21.0-31.0); Prothrombin Time 10.9 Seconds (9.0-12.0)
[2022-07-23 04:14] LABS: BUN Creatinine Ratio 33.6 (10-20); Basophils # (auto) 0.06 K/uL (0-0.2); Basophils % (auto) 0.8 %; Calcium 9.4 mg/dl (8.5-10.1); Creatinine Clr Calc Pharmacy 60.3 ml/min; Eosinophils # (auto) 0.42 K/uL (0-0.50); Eosinophils % (auto) 5.3 %; Est GFR (African American) 71.3 ml/min; Est GFR (Non-African American) 61.5 ml/min; Immature Granulocytes # (auto) 0.03 K/uL (0.00-0.02); Immature Granulocytes % (auto) 0.4 %; Lymphocytes # (auto) 0.68 K/uL (1.2-3.4); Lymphocytes % (auto) 8.5 %; Magnesium 2.5 mg/dl (1.7-2.4); Monocytes # (auto) 0.88 K/uL (0.24-0.82); Neutrophils # (auto) 5.92 K/uL (1.4-6.5); Polychromasia 1+
[2022-07-23] MEDS ORDERED: SODIUM CHLORIDE 0.9% 250 ML IV PRN ×3 (04:24→21:31)
--- NOTE | 2022-07-23 05:43 | Electrocardiogram Report ---
Test Reason : Blood Pressure : / mmHG Vent. Rate : 087 BPM Atrial Rate : 087 BPM P-R Int : 242 ms QRS Dur : 130 ms QT Int : 386 ms P-R-T Axes : 083 -25 050 degrees QTc Int : 464 ms Sinus rhythm with 1st degree A-V block Non-specific intra-ventricular conduction block Cannot rule out Septal infarct (cited on or before 22-JUL-2022) Abnormal ECG When compared with ECG of 19-MAY-2022 11:44, No significant change was found Confirmed by Isidoro Molina ([id number]) on 07/23/2022 5:43:17 AM Referred By: Confirmed By:Isidoro Molina
[2022-07-23] MEDS: BUMETANIDE 1 MG TAB PO SCH ×2 (06:25→11:54)
[2022-07-23] MEDS: CALCIUM CARBONATE 1250MG TAB PO SCH ×2 (08:14→21:15)
[2022-07-23] MEDS: FERROUS SULFATE 325 MG TAB PO SCH ×2 (08:14→21:16)
[2022-07-23] MEDS: metOLazone 2.5 MG TABLET PO SCH (08:14)
[2022-07-23] MEDS: SPIRONOLACTONE 25 MG TAB PO SCH ×2 (08:15→21:28)
[2022-07-23] MEDS: POTASSIUM CHLORIDE CRTAB 20 MEQ TABCR PO SCH (08:15)
[2022-07-23] MEDS: ESCITALOPRAM OXALATE 20 MG TAB PO SCH (08:16)
[2022-07-23] MEDS: MAGNESIUM OXIDE 400 MG TAB PO SCH (08:16)
[2022-07-23] MEDS: UMECLIDINIUM/VILANTEROL 62.5/25MCG 7 PUFFS/INHALER INH SCH (08:16)
[2022-07-23] MEDS: AZELASTINE HCL 0.1% NASAL 200 SPRAYS/27,400 MCG BTL SCH (08:16)
[2022-07-23] MEDS: FLUTICASONE FUROATE 100MCG 14 PUFFS/INHALER INH SCH (08:17)
[2022-07-23] MEDS ORDERED: NON-FORMULARY MEDICATION (Fluticasone-Umeclidin-Vilanter [Trelegy Ellipta] 100-62.5-25 mcg INH SCH (09:00)
--- NOTE | 2022-07-23 09:53 | Gastrointestinal Consultation ---
Date of Consultation July 23, 2022 Assessment & Plan (1) Symptomatic anemia: Patient is a 77 yo male with history of anemia with last EGD & colonoscopy in 2018. He was supposed to have a VCE but it does not appear this was done at that time. He presented with a hemoglobin of 5.2, but without other symptoms of GI bleeding. He takes Protonix 40 mg BID at home. At the present time, would focus on transfusion process to improve his H/H and take today to monitor that he is not becoming more fluid overloaded. His BNP on admission was higher than his baseline and he has received blood transfusion. CXR shows pulmonary edema and pleural effusion. If he is medically optimized, can consider EGD tomorrow (07/24/22). Continue Protonix drip at present and monitor for overt GI bleeding. Keep NPO after midnight in case of possible procedure. Can eat today. Supervising Physician Co-Signing Physician Notes Agree with KAREN Moran as above Gen: Awake, cooperative, Chronic ill-appearing, noted pallor Abd: Soft, NT, ND, +BS Transfuse to maintain H/H around 8/24 as per the Hospitalist team Consider EGD in AM if patient is medically stable and able to tolerate invasive procedure Continue current therapy and supportive care. History of Present Illness Reason for Consultation: Anemia Attending Physician: Carlton Veloz DO History of Present Illness Patient is a 77 yo male with PMH of COPD chronicallly on 5-6L O2, Acute on chronic diastolic heart failure with preserved ejection fraction, GERD, aortic stenosis s/p TAVR in 2019, and reported history of AVMs. He takes Aspirin 81 mg daily and takes Pantoprazole 40 mg BID at home. He presented to [facility] with several syncopal episodes and falls at home for the past several days. He smokes daily. He has a well established history of anemia and has had an EGD and colonoscopy in 2020 for this issue (without significant findings). Prior to these tests, he had reportedly had AVMs earlier in 2018. He takes an iron supplement daily for years and is unsure if his stools are darker than normal. No anticoagulation. Upon presentation his H/H was 5.2/17.0. His BUN was at baseline at 50 and Cr 1.36. BNP is 366 and troponin was unremarkable. CXR with evidence of pulmonary vascular congestion and small pleural effusions with bibasilar scarring and atelectasis. He has received blood products and current H/H is 6.5/20.8. His stools are noted to be formed/brown without blood. Of note, there was discussion of a video capsule endoscopy and things Allergies Allergy/AdvReac Type Severity Reaction Status Date / Time No Known Allergies Allergy Verified 06/30/22 15:35 Home Medications Medication Instructions Recorded Confirmed Type atorvastatin 80 mg tablet 80 mg PO QPM 05/20/20 07/22/22 History magnesium 250 mg tablet 250 mg PO DAILY 05/20/20 07/22/22 History multivitamin (Multiple Vitamins 1 tab PO DAILY 05/21/20 07/22/22 History tablet) docusate sodium 100 mg capsule 100 mg PO BID 06/10/20 07/22/22 History acetaminophen 325 mg capsule 650 mg PO QID PRN Pain 06/11/20 07/22/22 History spironolactone 25 mg tablet 25 mg PO BID 30 days #60 tabs 09/30/20 07/22/22 Rx ferrous sulfate 325 mg (65 mg 65 mg PO BID 02/27/21 07/22/22 History iron) tablet nicotine (polacrilex) 2 mg gum 2 mg buccal Q2H PRN nicotine 09/30/21 07/22/22 Rx cravings #120 ea azelastine 137 mcg (0.1 %) nasal 2 spray intranasal DAILY #30 mL 03/10/22 07/22/22 Rx spray aerosol aspirin 81 mg tablet,delayed 81 mg PO QPM 03/19/22 07/22/22 History release (Adult Low Dose Aspirin) calcium 300 mg chewable tablet 600 mg PO BID 03/22/22 07/22/22 History pantoprazole 40 mg tablet,delayed 40 mg PO BID 30 days #60 tabs 03/24/22 07/22/22 Rx release albuterol sulfate 90 mcg/actuation 2 puff inhalation Q6H PRN 03/27/22 07/22/22 Rx aerosol inhaler Shortness Of Breath Or Wheezing #18 grams fluticasone fur. 100 mcg-umeclid 1 inh inhalation DAILY #3 Inhalers 03/27/22 07/22/22 Rx 62.5 mcg-vilant 25 mcg inhalat.powder (Trelegy Ellipta) ipratropium 0.5 mg-albuterol 3 mg 3 ml inhalation Q6H PRN wheezing 04/03/22 07/22/22 Rx (2.5 mg base)/3 mL nebulization #180 mL soln potassium chloride 20 mEq 20 meq PO QAM #0 tabs 04/20/22 07/22/22 Rx tablet,extended release escitalopram oxalate 10 mg tablet 20 mg PO DAILY 05/01/22 07/22/22 History diphenhydramine HCl 25 mg capsule 25 mg PO HS 05/26/22 07/22/22 History (Benadryl) melatonin 3 mg capsule 6 mg PO HS 05/26/22 07/22/22 History bumetanide 2 mg tablet See Rx Instructions PO BID 05/29/22 07/22/22 History metolazone 2.5 mg tablet 2.5 mg PO DAILY 05/29/22 07/22/22 History buspirone 10 mg tablet 10 mg PO TID PRN Anxiety 07/22/22 07/22/22 History Patient History Medical History Acute GI bleeding Acute hyperglycemia Anemia Anemia Anemia Aortic stenosis severe asymptomatic Elevated troponin I level GERD (gastroesophageal reflux disease) History of GI bleed Hypertension Hypertension Hypoxia Hypoxia Metabolic alkalosis with respiratory acidosis SOB (shortness of breath) Tobacco use disorder Uremia Surgical History History of left-sided carotid endarterectomy 2014 S/P appendectomy Family History Father Hypertension Mother Hypotension Breast cancer Other No family history of adverse response to anesthesia No family history of bleeding disorder Social History Smoking Status: Former smoker Tobacco Type: Cigarettes packs per day: 1; Second Hand Exposure: No; Do You Dip or Chew Tobacco: No; Tobacco Cessation Education Requested by Patient: No Hx Alcohol Use: Yes Alcohol type: hard liquor Alcohol Intake Frequency: Monthly or Less Alcohol Intake Frequency Comment: 1 bottle of Manny Dupree a month Hx Substance Use: No Preferred Language: Kiswahili Communication Ability: Effective Visual Impairment: No Limitations Clarity Developer Required: No Beliefs That Will Affect Care: None marital status: Current Living Situation: Spouse Current Living Situation Comment: house current occupational status: retired Other Information That Helps Us Care for You: No Feels Safe at Home: Yes Safety Concerns: Feels Safe At This Time Assistive Devices: Cane and Walker Assistive Devices Comment: has walker and cane but does not use daily Review of Systems Constitutional: no fever and no chills Respiratory: no cough Cardiovascular: + dyspnea, + dyspnea at rest and + dyspnea on exertion; no chest pain Gastrointestinal: no abdominal pain, no change in bowel habits and no melena Psychiatric: no problem reported Physical Exam Constitutional: well developed Respiratory: normal respiratory effort Gastrointestinal (Abdomen): normal bowel sounds, soft, nontender, no hepatosplenomegaly Musculoskeletal: Head/Neck/Chest: normocephalic Psychiatric: Orientation: alert and oriented x 3 Results & Data ([facility]) Vital Signs (Past 12 Hours) Vital Signs Temp Pulse Pulse Resp BP BP Pulse Ox 07/23/22 08:00 36.7 C 88 18 134/63 97 07/23/22 08:00 07/23/22 05:45 36.7 C 78 16 129/56 L 97 07/23/22 05:21 36.6 C 69 16 144/58 H 97 07/23/22 05:15 36.6 C 72 16 127/48 L 95 07/23/22 05:10 36.6 C 68 16 140/54 L 98 07/23/22 05:05 36.6 C 67 16 135/52 L 98 07/23/22 05:00 36.7 C 66 16 144/58 H 100 07/23/22 04:45 36.6 C 74 16 140/52 L 97 07/23/22 04:50 36.6 C 68 16 147/61 H 100 07/23/22 03:47 36.8 C 81 16 129/52 L 91 07/23/22 02:30 36.8 C 72 16 124/60 98 07/23/22 02:00 36.7 C 74 16 124/54 L 97 07/23/22 01:00 36.7 C 75 16 131/55 L 97 07/22/22 23:50 68 19 99 07/23/22 00:10 70 07/23/22 01:30 36.7 C 75 16 141/75 H 97 07/23/22 01:03 36.7 C 68 16 128/56 L 100 07/23/22 00:30 36.8 C 77 16 154/55 H 97 07/22/22 23:55 36.8 C 74 16 131/55 L 100 07/22/22 23:50 36.7 C 76 16 137/56 L 100 07/22/22 23:45 36.6 C 75 16 135/57 L 100 07/22/22 23:40 36.7 C 74 16 133/56 L 100 07/22/22 23:33 36.6 C 77 16 131/55 L 100 07/22/22 23:07 36.6 C 83 22 146/49 H 100 O2 Del Method O2 Flow Rate 07/23/22 08:00 07/23/22 08:00 Nasal Cannula 5 07/23/22 05:45 5 07/23/22 05:21 5 07/23/22 05:15 5 07/23/22 05:10 5 07/23/22 05:05 5 07/23/22 05:00 5 07/23/22 04:45 5 07/23/22 04:50 5 07/23/22 03:47 Nasal Cannula 5 07/23/22 02:30 5 07/23/22 02:00 07/23/22 01:00 07/22/22 23:50 07/23/22 00:10 07/23/22 01:30 5 07/23/22 01:03 07/23/22 00:30 5 07/22/22 23:55 5 07/22/22 23:50 5 07/22/22 23:45 5 07/22/22 23:40 5 07/22/22 23:33 5 07/22/22 23:07 Nasal Cannula 5 PG Care Time/CCT Total # of Minutes Spent Total Time Spent with Patient: Total time spent is greater than 50% in coordination of care (as documented) at patient's floor/unit and/or counseling patient: Coding Level of Care Code 22802 Initial Inpt Care Lvl 3 Diagnoses Symptomatic anemia D64.9
[2022-07-23] MEDS ORDERED: IRON SUCROSE 200 MG in 0.9 % SODIUM CHLORIDE 100 ML IV ONE (10:15)
--- NOTE | 2022-07-23 20:55 | Hospitalist Progress Note ---
Date of Service July 23, 2022 Assessment & Plan (1) Symptomatic anemia: Plan: - Has been transfused 3 units thus far, hemoglobin still only 6.5giving 1 additional unit. Considered to, but he is hemodynamically stable, and I do not want to risk volume overloadso while he may require another unit still, we will do 1, follow-up his hemoglobin, and then transfuse further if it is still necessary. Give a dose of Lasix after the unit of blood. -For endoscopic work-up once anemia has been remedied more (possibly as soon as tomorrow) (2) Iron deficiency anemia: Plan: - Has been on iron supplementation for years as he has been chronically anemic - H/H significantly reduced from labs earlier this month. - Iron 16 (L), transferrin 294, ferritin 21, getting transfusion, will want to supplement iron as well (3) COPD (chronic obstructive pulmonary disease): Plan: - No evidence of acute exacerbation today. No short of breath, and his lung findings seem to be more consistent with his chronic CHF - 99% on 5 L NC (baseline requirement). - Continue home inhalers. (4) GERD (gastroesophageal reflux disease): Plan: PPI (5) Tobacco use disorder: Plan: - Former smoker, quit since last admission. No longer requiring nicotine patches. (6) Chronic diastolic (congestive) heart failure: Plan: - Continue Bumex 4 mg BID, metolazone 2.5 mg daily, and spironolactone 25 mg BID. -Monitor closelyany decompensation during transfusion would not be surprisinghence going slow with units, and giving Lasix after. - Dry weight 185 lbs. (7) Allergic rhinitis with postnasal drip: Plan: - Continue azelastine spray. (8) Anxiety: Plan: - Continue Lexapro, BuSpar. Plan Pharmacologic DVT prophylaxis contraindicated due to anemia of uncertain source Admission and Anticipated Discharge Date Admission Date: July 22, 2022 Subjective Feeling okay overall. Not really weak not short of breath. Notes that while he is reticent to have any sort of procedures done, once he thought about the fact that he is really not going to get to the bottom of the anemia without an endoscopic work-up, he would prefer to go that route. Physical Exam Physical Exam: In general he is awake and alert pleasant no distress. HEENT normocephalic atraumatic mucous membranes moist. Lungs show rales bibasilarhe notes his probably has normal. Breathing unlabored no accessory muscle use good effort. Skin without rashes, pallor, icterus. Neuro without focal deficits. Results & Data Results & Data ([facility]) Vital Signs (Past 12 Hours) Vital Signs Temp Pulse Resp BP Pulse Ox O2 Del Method O2 Flow Rate 07/23/22 20:33 Nasal Cannula 5 07/23/22 19:17 98.2 F 75 16 120/53 L 99 Nasal Cannula 5.5 07/23/22 16:55 83 07/23/22 16:38 98.6 F 71 20 135/67 97 07/23/22 11:00 98.1 F 81 16 134/72 96 PG Care Time/CCT Total # of Minutes Spent Total Time Spent with Patient: Total time spent is greater than 50% in coordination of care (as documented) at patient's floor/unit and/or counseling patient: Coding Level of Care Code 87455 Subseq Hosp Care Lvl 3 Diagnoses Symptomatic anemia D64.9 Iron deficiency anemia D50.9 COPD (chronic obstructive pulmonary disease) J44.1 COPD type: COPD with acute exacerbation GERD (gastroesophageal reflux disease) K21.9 Tobacco use disorder F17.200 Chronic diastolic (congestive) heart failure I50.32 Allergic rhinitis with postnasal drip J30.9; R09.82 Anxiety F41.9 (1) COPD (chronic obstructive pulmonary disease) COPD type: COPD with acute exacerbation Qualified Code(s): J44.1 - Chronic obstructive pulmonary disease with (acute) exacerbation
[2022-07-23] MEDS: ATORVASTATIN 40 MG TAB PO SCH (21:15)
[2022-07-23] MEDS ORDERED: FUROSEMIDE 40 MG/4 ML VIAL IV ONE (21:15)
[2022-07-23] MEDS: MELATONIN 3 MG TAB PO SCH (21:17)
[2022-07-24] MEDS: PANTOprazole 40 MG in DEXTROSE 5% 100 ML IV SCH ×4 (00:35→17:42)
[2022-07-24 06:04] LABS: Basophils # (auto) 0.04 K/uL (0-0.2); Basophils % (auto) 0.5 %; Eosinophils # (auto) 0.36 K/uL (0-0.50); Eosinophils % (auto) 4.7 %; Hematocrit (blood only) 27.4 % (40.1-51.0); Hemoglobin 8.6 g/dl (14.0-18.0); Immature Granulocytes # (auto) 0.02 K/uL (0.00-0.02); Immature Granulocytes % (auto) 0.3 %; Lymphocytes # (auto) 0.51 K/uL (1.2-3.4); Lymphocytes % (auto) 6.7 %; Mean Corpuscular Hemoglobin 28.4 pg (25.0-34.0); Mean Corpuscular Hgb Conc 31.4 g/dL (32.0-36.0); Mean Corpuscular Volume 90.4 fL (80.0-100.0); Mean Platelet Volume 10.1 fL (9.4-12.4); Monocytes # (auto) 0.98 K/uL (0.24-0.82); Monocytes % (auto) 12.9 %; Neutrophils # (auto) 5.69 K/uL (1.4-6.5); Neutrophils % (auto) 74.9 %; Platelet Count 359 K/uL (130-400); RDW Coefficient of Variation 14.8 % (11.5-14.5); RDW Standard Deviation 48.4 fL (36.4-46.3); Red Blood Count 3.03 M/uL (4.63-6.08)
[2022-07-24] MEDS: BUMETANIDE 1 MG TAB PO SCH ×2 (06:07→12:00)
[2022-07-24 06:20] LABS: BUN Creatinine Ratio 31.2 (10-20); Calcium 9.9 mg/dl (8.5-10.1); Creatinine Clr Calc Pharmacy 53.5 ml/min; Est GFR (African American) 63.1 ml/min; Est GFR (Non-African American) 54.4 ml/min; Potassium 3.6 mmol/L (3.5-5.1)
[2022-07-24] MEDS: FERROUS SULFATE 325 MG TAB PO SCH ×2 (09:37→20:09)
[2022-07-24] MEDS: SPIRONOLACTONE 25 MG TAB PO SCH ×2 (09:37→20:09)
[2022-07-24] MEDS: ESCITALOPRAM OXALATE 20 MG TAB PO SCH (09:37)
[2022-07-24] MEDS: POTASSIUM CHLORIDE CRTAB 20 MEQ TABCR PO SCH (09:37)
[2022-07-24] MEDS: MAGNESIUM OXIDE 400 MG TAB PO SCH (09:38)
[2022-07-24] MEDS: CALCIUM CARBONATE 1250MG TAB PO SCH ×2 (09:38→20:08)
[2022-07-24] MEDS: UMECLIDINIUM/VILANTEROL 62.5/25MCG 7 PUFFS/INHALER INH SCH (09:39)
[2022-07-24] MEDS: AZELASTINE HCL 0.1% NASAL 200 SPRAYS/27,400 MCG BTL SCH (09:40)
[2022-07-24] MEDS: FLUTICASONE FUROATE 100MCG 14 PUFFS/INHALER INH SCH (09:40)
[2022-07-24] MEDS: metOLazone 2.5 MG TABLET PO SCH (09:40)
--- NOTE | 2022-07-24 09:47 | History & Physical Bridge Note ---
Date of Service July 24, 2022 History & Physical Bridge Note I have examined the patient, reviewed the History & Physical and in the interval since the performance of the History & Physical I have noted the following changes of clinical significance: no changes noted H/H is 8.6/27.4 after 4 units PRBCs. Keep NPO and proceed with EGD today. Supervising Physician Co-Signing Physician Notes Agree with KAREN Moran as above Abd: Soft, NT, ND, +BS Contnue current therapy and supportive care Transfuse PRN to maintain H/H around 8/24 Proceed with EGD today
--- NOTE | 2022-07-24 11:18 | Anesthesiology Consultation ---
Date of Service July 24, 2022 Assessment & Plan Chart Review Chart Review: Acceptable Risk for Surgery, Patient NOT seen in Pre Admission Testing and lead data entry operator initiated Consults Requested none Proposed Anesthesia Risk / Benefits Reviewed With: PT / POA / Parent / Guardian, Accepts Plan and Informed Consent Obtained History Surgery Operation Date: 07/24/22 16:55 Proposed Procedures p Esophagogastroduodenoscopy Dr Newell - Gibson Rosales Case, DO Height/Weight Height: 5 ft 10 in Weight: 87.8 kg Allergies Allergy/AdvReac Type Severity Reaction Status Date / Time No Known Allergies Allergy Verified 06/30/22 15:35 Medications Home Medications Medication Instructions Recorded Confirmed Last Taken atorvastatin 80 mg tablet 80 mg PO QPM 05/20/20 07/22/22 07/21/22 magnesium 250 mg tablet 250 mg PO DAILY 05/20/20 07/22/22 07/21/22 multivitamin (Multiple Vitamins 1 tab PO DAILY 05/21/20 07/22/22 07/22/22 tablet) docusate sodium 100 mg capsule 100 mg PO BID 06/10/20 07/22/22 07/21/22 acetaminophen 325 mg capsule 650 mg PO QID PRN Pain 06/11/20 07/22/22 Unknown spironolactone 25 mg tablet 25 mg PO BID 30 days #60 tabs 09/30/20 07/22/22 07/22/22 ferrous sulfate 325 mg (65 mg 65 mg PO BID 02/27/21 07/22/22 07/22/22 iron) tablet nicotine (polacrilex) 2 mg gum 2 mg buccal Q2H PRN nicotine 09/30/21 07/22/22 Unknown cravings #120 ea azelastine 137 mcg (0.1 %) nasal 2 spray intranasal DAILY #30 mL 03/10/22 07/22/22 07/22/22 spray aerosol aspirin 81 mg tablet,delayed 81 mg PO QPM 03/19/22 07/22/22 07/21/22 release (Adult Low Dose Aspirin) calcium 300 mg chewable tablet 600 mg PO BID 03/22/22 07/22/22 07/21/22 pantoprazole 40 mg tablet,delayed 40 mg PO BID 30 days #60 tabs 03/24/22 07/22/22 07/22/22 release albuterol sulfate 90 mcg/actuation 2 puff inhalation Q6H PRN 05/06/22 08/31/22 06/28/22 aerosol inhaler Shortness Of Breath Or Wheezing #18 grams fluticasone fur. 100 mcg-umeclid 1 inh inhalation DAILY #3 Inhalers 03/27/22 07/22/22 07/21/22 62.5 mcg-vilant 25 mcg inhalat.powder (Trelegy Ellipta) ipratropium 0.5 mg-albuterol 3 mg 3 ml inhalation Q6H PRN wheezing 04/03/22 07/22/22 05/19/22 (2.5 mg base)/3 mL nebulization #180 mL soln potassium chloride 20 mEq 20 meq PO QAM #0 tabs 04/20/22 07/22/22 07/22/22 tablet,extended release escitalopram oxalate 10 mg tablet 20 mg PO DAILY 05/01/22 07/22/22 07/21/22 diphenhydramine HCl 25 mg capsule 25 mg PO HS 05/26/22 07/22/22 07/21/22 (Benadryl) melatonin 3 mg capsule 6 mg PO HS 05/26/22 07/22/22 07/21/22 bumetanide 2 mg tablet See Rx Instructions PO BID 05/29/22 07/22/22 07/22/22 metolazone 2.5 mg tablet 2.5 mg PO DAILY 05/29/22 07/22/22 07/22/22 buspirone 10 mg tablet 10 mg PO TID PRN Anxiety 07/22/22 07/22/22 07/21/22 Active Medications Generic Name Dose Route Start Last Admin Trade Name Shaista PRN Reason Stop Dose Admin Atorvastatin Calcium 80 mg 07/22/22 21:00 07/23/22 21:15 Atorvastatin 40 Mg Tab PO 08/21/22 20:59 80 mg QPM MARZENA Administration Azelastine HCl 2 sprays 07/23/22 09:00 07/24/22 09:40 Azelastine Hcl 0.1% Nasal 200 Sprays/27,400 Mcg Btl NA 08/22/22 08:59 Not Given DAILY MARZENA Bumetanide 4 mg 07/23/22 06:00 07/24/22 06:07 Bumetanide 1 Mg Tab PO 08/21/22 20:59 4 mg BID@0600,1200 MARZENA Administration Buspirone HCl 10 mg 07/22/22 16:55 07/23/22 08:15 Buspirone 5 Mg Tab PO 08/21/22 16:54 10 mg TID PRN Administration Anxiety Calcium Carbonate 1,250 mg 07/22/22 21:00 07/24/22 09:38 Calcium Carbonate 1250mg Tab PO 08/21/22 20:59 1,250 mg BID MARZENA Administration Escitalopram Oxalate 20 mg 07/23/22 09:00 07/24/22 09:37 Escitalopram Oxalate 20 Mg Tab PO 08/22/22 08:59 20 mg DAILY MARZENA Administration Fluticasone Furoate 1 puffs 07/23/22 09:00 07/24/22 09:40 Fluticasone Furoate 100mcg 14 Puffs/Inhaler INH 08/22/22 08:59 1 puffs DAILY MARZENA Administration Pantoprazole Sodium 40 mg/ 100 mls @ 20 mls/hr 07/22/22 14:30 07/24/22 09:51 Dextrose IV 08/21/22 14:29 8 mg/hr Q5H MARZENA 20 mls/hr Administration 8 MG/HR Magnesium Oxide 400 mg 07/23/22 09:00 07/24/22 09:38 Magnesium Oxide 400 Mg Tab PO 08/22/22 08:59 400 mg DAILY MARZENA Administration Melatonin 6 mg 07/22/22 21:00 07/23/22 21:17 Melatonin 3 Mg Tab PO 08/21/22 20:59 6 mg HS MARZENA Administration Metolazone 2.5 mg 07/23/22 09:00 07/24/22 09:40 Metolazone 2.5 Mg Tablet PO 08/22/22 08:59 2.5 mg DAILY MARZENA Administration Potassium Chloride 20 meq 07/23/22 09:00 07/24/22 09:37 Potassium Chloride Crtab 20 Meq Tabcr PO 08/22/22 08:59 20 meq QAM MARZENA Administration Spironolactone 25 mg 07/22/22 21:00 07/24/22 09:37 Spironolactone 25 Mg Tab PO 08/21/22 20:59 25 mg BID MARZENA Administration Umeclidinium/Vilanterol 1 puffs 07/23/22 09:00 07/24/22 09:39 Umeclidinium/Vilanterol 62.5/25mcg 7 Puffs/Inhaler INH 08/22/22 08:59 1 puffs DAILY MARZENA Administration Past Medical History Medical History Acute GI bleeding Acute hyperglycemia Anemia Anemia Anemia Aortic stenosis severe asymptomatic Elevated troponin I level GERD (gastroesophageal reflux disease) History of GI bleed Hypertension Hypertension Hypoxia Hypoxia Metabolic alkalosis with respiratory acidosis SOB (shortness of breath) Tobacco use disorder Uremia Past Family History Family History Father Hypertension Mother Hypotension Breast cancer Other No family history of adverse response to anesthesia No family history of bleeding disorder Past Surgical History Surgical History History of left-sided carotid endarterectomy 2014 S/P appendectomy Social History Smoking Status: Former smoker tobacco type: cigarettes Do You Dip or Chew Tobacco: No Hx Alcohol Use: Yes Alcohol type: hard liquor alcohol intake frequency: a few times a week Alcohol Intake Frequency Comment: last night 1.5 shots Manny mendez Hx Substance Use: No substance use type: does not use Physical Exam Vital Signs Last Vital Signs Temp 36.4 C L 07/24/22 08:00 Pulse 72 07/24/22 08:00 Resp 20 07/24/22 08:00 BP 149/56 H 07/24/22 08:00 Pulse Ox 99 07/24/22 08:00 O2 Del Method 07/24/22 08:00 O2 Flow Rate 5 07/24/22 08:00 Testing Laboratory Results 07/24/22 05:28 07/24/22 05:28 PT 10.9 Seconds (9.0-12.0) 07/23/22 03:36 INR 1.0 (0.9-1.1) 07/23/22 03:36 APTT 22.2 Seconds (21.0-31.0) 07/23/22 03:36 Urine Color Yellow 07/22/22 12:14 Urine Appearance Clear (Clear) 07/22/22 12:14 Urine pH 8.0 (4.5-7.5) H 07/22/22 12:14 Ur Specific [place] 1.011 (1.000-1.030) 07/22/22 12:14 Urine Protein Negative (Negative) 07/22/22 12:14 Urine Glucose (UA) Negative (Negative) 07/22/22 12:14 Urine Ketones Negative (Negative) 07/22/22 12:14 Urine Nitrite Negative (Negative) 07/22/22 12:14 Ur Leukocyte Esterase Trace (Negative) H 07/22/22 12:14 Urine WBC (Auto) 5-10 /hpf (0-5) H 07/22/22 12:14 Urine RBC (Auto) 0-4 /hpf (0-4) 07/22/22 12:14 U Hyaline Cast (Auto) 1-5 /lpf (0-5) 07/22/22 12:14 U Epithel Cells (Auto) 0-5 /lpf (0-5) 07/22/22 12:14 Urine Bacteria (Auto) Negative (Negative) 07/22/22 12:14 Blood Type O Positive 07/22/22 15:22 Antibody Screen NEGATIVE 07/22/22 15:22 Electrocardiogram Date: 07/22/22 Sinus rhythm with 1st degree A-V block Non-specific intra-ventricular conduction block Cannot rule out Septal infarct (cited on or before 22-JUL-2022) Abnormal ECG When compared with ECG of 19-MAY-2022 11:44, No significant change was found Confirmed by Isidoro Molina ([id number]) on 07/23/2022 5:43:17 AM Chest X-Ray Date: 07/22/22 CLINICAL HISTORY: Syncope. FINDINGS: An AP, portable, upright chest radiograph is compared to study dated 05/21/2022 and correlated with chest CT dated 05/19/2022. The examination is degraded by portable technique and apical lordotic positioning. The heart is enlarged. Atherosclerotic calcification of the thoracic aorta. There is pulmonary vascular congestion. Emphysematous change is observed. There are small pleural effusions with bibasilar scarring/atelectasis. No superimposed airspace consolidation is seen to suggest pneumonia. No pneumothorax is seen. The skeletal structures are osteopenic. The bony thorax is grossly intact. IMPRESSION: 1. Cardiomegaly and emphysema with pulmonary vascular congestion. 2. Small pleural effusions with bibasilar scarring/atelectasis. Echocardiogram Date: 05/19/22 EF: 55-60% LV Function: normal Other Findings: + LVH (mild; mild LV dilation) Valvular Disease: + AI (mild), + MS (mild - moderate), + MR (mild) and + pertinent finding (Bioprosthetic Ao valve)
--- NOTE | 2022-07-24 13:04 | Communication Note ---
Date of Service: July 24, 2022 I discussed trying to remove the pt's loose teeth after induction. He would like me to attempt to remove it in order to prevent aspiration should it be bumped out during the procedure.
[2022-07-24] MEDS ORDERED: LIDOCAINE 2% MPF LOCAL 5 ML VIAL INFIL ONE (13:58)
[2022-07-24] MEDS ORDERED: PROPOFOL IV EMULSION 10 MG/ML 20 ML VIAL IV ONE ×2 (13:58→14:04)
--- NOTE | 2022-07-24 14:21 | GI REPORT ---
Patient Name: Richard Lobo Procedure Date: 07/24/2022 1:52 PM Date of : 1945 Admit Type: Inpatient Age: 77 Gender: Male Attending MD: Gibson Newell DO Procedure: Upper GI endoscopy Providers: Gibson Newell DO Referring MD: Carlton Veloz Indications: Iron deficiency anemia Medicines: Monitored Anesthesia Care Complications: No immediate complications. Estimated Blood Loss: Estimated blood loss: none. Procedure: Pre-Anesthesia Assessment: - Prior to the procedure, a History and Physical was performed, and patient medications and allergies were reviewed. The patient's tolerance of previous anesthesia was also reviewed. The risks and benefits of the procedure and the sedation options and risks were discussed with the patient. All questions were answered, and informed consent was obtained. Prior Anticoagulants: The patient has taken no previous anticoagulant or antiplatelet agents except for aspirin. ASA Grade Assessment: III - A patient with severe systemic disease. After reviewing the risks and benefits, the patient was deemed in satisfactory condition to undergo the procedure. After obtaining informed consent, the endoscope was passed under direct vision. Throughout the procedure, the patient's blood pressure, pulse, and oxygen saturations were monitored continuously. The Endoscope was introduced through the mouth, and advanced to the third part of duodenum. The upper GI endoscopy was accomplished without difficulty. The patient tolerated the procedure well. Findings: The esophagus was normal. The stomach was normal. The examined duodenum was normal. Impression: - Normal esophagus. - Normal stomach. - Normal examined duodenum. - No specimens collected. Recommendation: - Return patient to [facility] for ongoing care. - Advance diet as tolerated. - Continue present medications. - Perform a colonoscopy at appointment to be scheduled. Gibson Newell DO 07/24/2022 2:21:20 PM This report has been signed electronically. Note Initiated On: 07/24/2022 1:52 PM Number of Addenda: 0 I attest to the content of the Intraoperative Record and orders documented therein, exceptions below {[id number]}
--- NOTE | 2022-07-24 15:30 | Anesthesiology Progress Note ---
Date of Service July 24, 2022 Anesthesia Post Procedure Vital Signs Vital Signs: Temp Pulse Pulse Resp BP BP Pulse Ox 07/24/22 14:52 69 18 146/51 H 100 07/24/22 14:35 66 18 129/52 L 100 07/24/22 14:20 80 16 101/41 L 100 07/24/22 12:38 36.6 C 80 16 156/57 H 100 07/24/22 12:00 36.8 C 76 146/52 H 96 07/24/22 11:26 66 07/24/22 11:26 07/24/22 08:00 36.4 C L 72 20 149/56 H 99 07/24/22 03:29 36.5 C 65 16 126/60 99 07/24/22 00:15 36.9 C 68 18 141/60 H 99 07/23/22 23:45 36.8 C 70 18 130/62 98 07/23/22 23:15 36.5 C 69 18 143/53 H 99 07/23/22 23:09 70 07/23/22 22:45 37.1 C 68 20 125/54 L 99 07/23/22 22:45 37.1 C 68 20 125/54 L 99 07/23/22 22:27 37.1 C 70 18 122/52 L 98 07/23/22 22:15 37 C 71 20 126/52 L 98 07/23/22 20:33 07/23/22 19:17 36.8 C 75 16 120/53 L 99 07/23/22 16:55 83 07/23/22 16:38 37.0 C 71 20 135/67 97 O2 Del Method O2 Flow Rate 07/24/22 14:52 Nasal Cannula 5 07/24/22 14:35 Nasal Cannula 5 07/24/22 14:20 Nasal Cannula 5 07/24/22 12:38 Nasal Cannula 5 07/24/22 12:00 Nasal Cannula 5 07/24/22 11:26 07/24/22 11:26 Nasal Cannula 5 07/24/22 08:00 Nasal Cannula 5 07/24/22 03:29 Nasal Cannula 5.5 07/24/22 00:15 5 07/23/22 23:45 5 07/23/22 23:15 5 07/23/22 23:09 07/23/22 22:45 5 07/23/22 22:45 5 07/23/22 22:27 5 07/23/22 22:15 5 07/23/22 20:33 Nasal Cannula 5 07/23/22 19:17 Nasal Cannula 5.5 07/23/22 16:55 07/23/22 16:38 Transfer of Care Handoff Completed per policy Notes Mental Status: alert / awake / arousable and participated in evaluation Patient Amnestic to Procedure: Yes Nausea / Vomiting: adequately controlled Pain: adequately controlled Airway Patency, RR, SpO2: stable & adequate BP & HR: stable & adequate Hydration State: stable & adequate Anesthetic Complications: no major complications apparent and Pt Satisfied with anesthetic care
--- NOTE | 2022-07-24 18:33 | Hospitalist Progress Note ---
Date of Service July 24, 2022 Assessment & Plan (1) Symptomatic anemia: Plan: - Has been transfused 3 units thus far, hemoglobin now 8.5. Hemodynamically stable. EGD negativediscussed small bowel and colon work-upbut as long as he continues to stay stable this could be done as an outpatient. Follow-up CBC in a.m. Will likely need serial CBCs as an outpatient. (2) Iron deficiency anemia: Plan: - Has been on iron supplementation for years as he has been chronically anemic - H/H significantly reduced from labs earlier this month. - Iron 16 (L), transferrin 294, ferritin 21,got 3 units transfused, have also given several doses of Venofer. Continue p.o. iron as an outpatient, follow iron studies as well as CBC periodically. (3) COPD (chronic obstructive pulmonary disease): Plan: - No evidence of acute exacerbation today. Breathing feels pretty reasonable overall. - 99% on 5 L NC (baseline requirement). - Continue home inhalers. (4) GERD (gastroesophageal reflux disease): Plan: PPI (5) Tobacco use disorder: Plan: - Former smoker, quit since last admission. No longer requiring nicotine patches. (6) Chronic diastolic (congestive) heart failure: Plan: - Continue Bumex 4 mg BID, metolazone 2.5 mg daily, and spironolactone 25 mg BID. -Breathing feeling pretty reasonable overall. - Dry weight 185 lbs. (7) Allergic rhinitis with postnasal drip: Plan: - Continue azelastine spray. (8) Anxiety: Plan: - Continue Lexapro, BuSpar. Plan Pharmacologic DVT prophylaxis contraindicated due to anemia of uncertain source Admission and Anticipated Discharge Date Admission Date: July 22, 2022 Subjective Feeling pretty good overall. No shortness of breath. Discussed EGD findings. Discussed current labs and current plan. He is hoping to get home soon but does not feel up to it today having just had the transfusion overnight and the EGD. Review of Systems Review of Systems: All systems reviewed & are unremarkable except as noted in HPI & below Physical Exam Physical Exam: In general he is awake and alert pleasant no distress. HEENT normocephalic atraumatic mucous membranes moist. Breathing unlabored no accessory muscle use good effort. Skin shows no rashes no pallor or icterus. Neuro without focal deficits. Results & Data Results & Data ([facility]) Vital Signs (Past 12 Hours) Vital Signs Temp Pulse Pulse Resp BP Pulse Ox O2 Del Method 07/24/22 16:21 98.6 F 78 16 120/62 95 Nasal Cannula 07/24/22 14:52 69 18 146/51 H 100 Nasal Cannula 07/24/22 14:35 66 18 129/52 L 100 Nasal Cannula 07/24/22 14:20 80 16 101/41 L 100 Nasal Cannula 07/24/22 12:38 97.9 F 80 16 156/57 H 100 Nasal Cannula 07/24/22 12:00 98.2 F 76 146/52 H 96 Nasal Cannula 07/24/22 11:26 66 07/24/22 11:26 Nasal Cannula 07/24/22 08:00 97.5 F L 72 20 149/56 H 99 Nasal Cannula O2 Flow Rate 07/24/22 16:21 5 07/24/22 14:52 5 07/24/22 14:35 5 07/24/22 14:20 5 07/24/22 12:38 5 07/24/22 12:00 5 07/24/22 11:26 07/24/22 11:26 5 07/24/22 08:00 5 PG Care Time/CCT Total # of Minutes Spent Total Time Spent with Patient: Total time spent is greater than 50% in coordination of care (as documented) at patient's floor/unit and/or counseling patient: Coding Level of Care Code 63214 Subseq Hosp Care Lvl 3 Diagnoses Symptomatic anemia D64.9 Iron deficiency anemia D50.9 COPD (chronic obstructive pulmonary disease) J44.1 COPD type: COPD with acute exacerbation GERD (gastroesophageal reflux disease) K21.9 Tobacco use disorder F17.200 Chronic diastolic (congestive) heart failure I50.32 Allergic rhinitis with postnasal drip J30.9; R09.82 Anxiety F41.9 (1) COPD (chronic obstructive pulmonary disease) COPD type: COPD with acute exacerbation Qualified Code(s): J44.1 - Chronic obstructive pulmonary disease with (acute) exacerbation
[2022-07-24] MEDS ORDERED: IRON SUCROSE 200 MG in 0.9 % SODIUM CHLORIDE 100 ML IV ONE (19:00)
[2022-07-24] MEDS: MELATONIN 3 MG TAB PO SCH (20:07)
[2022-07-24] MEDS: ATORVASTATIN 40 MG TAB PO SCH (20:07)
[2022-07-25] MEDS: BUMETANIDE 1 MG TAB PO SCH ×2 (05:20→13:04)
[2022-07-25 07:42] LABS: Basophils # (auto) 0.03 K/uL (0-0.2); Basophils % (auto) 0.4 %; Eosinophils # (auto) 0.36 K/uL (0-0.50); Eosinophils % (auto) 4.3 %; Hematocrit (blood only) 32.1 % (40.1-51.0); Hemoglobin 9.9 g/dl (14.0-18.0); Immature Granulocytes # (auto) 0.02 K/uL (0.00-0.02); Immature Granulocytes % (auto) 0.2 %; Lymphocytes % (auto) 5.9 %; Mean Corpuscular Hemoglobin 28.4 pg (25.0-34.0); Mean Corpuscular Hgb Conc 30.8 g/dL (32.0-36.0); Mean Corpuscular Volume 92.2 fL (80.0-100.0); Mean Platelet Volume 9.9 fL (9.4-12.4); Monocytes % (auto) 13.1 %; Neutrophils % (auto) 76.1 %; Platelet Count 416 K/uL (130-400); RDW Coefficient of Variation 14.6 % (11.5-14.5); RDW Standard Deviation 48.9 fL (36.4-46.3); Red Blood Count 3.48 M/uL (4.63-6.08); White Blood Count 8.41 K/ul (4.8-10.8)
[2022-07-25 08:10] LABS: Calcium 10.6 mg/dl (8.5-10.1); Creatinine Clr Calc Pharmacy 50.9 ml/min; Est GFR (Non-African American) 50.9 ml/min
[2022-07-25] MEDS: AZELASTINE HCL 0.1% NASAL 200 SPRAYS/27,400 MCG BTL SCH (08:31)
[2022-07-25] MEDS: ESCITALOPRAM OXALATE 20 MG TAB PO SCH (08:32)
[2022-07-25] MEDS: CALCIUM CARBONATE 1250MG TAB PO SCH (08:32)
[2022-07-25] MEDS: FLUTICASONE FUROATE 100MCG 14 PUFFS/INHALER INH SCH (08:32)
[2022-07-25] MEDS: FERROUS SULFATE 325 MG TAB PO SCH (08:32)
[2022-07-25] MEDS: metOLazone 2.5 MG TABLET PO SCH (08:33)
[2022-07-25] MEDS: SPIRONOLACTONE 25 MG TAB PO SCH (08:33)
[2022-07-25] MEDS: POTASSIUM CHLORIDE CRTAB 20 MEQ TABCR PO SCH (08:33)
[2022-07-25] MEDS: MAGNESIUM OXIDE 400 MG TAB PO SCH (08:33)
[2022-07-25] MEDS: UMECLIDINIUM/VILANTEROL 62.5/25MCG 7 PUFFS/INHALER INH SCH (08:34)
--- NOTE | 2022-07-25 16:57 | Discharge Summary ---
Date of Service July 25, 2022 Admission HPI Per Admitting Provider Richard Lobo is a 77-year-old male with history significant for severe COPD on 5-6L O2 at home, HFpEF, HTN, and aortic stenosis s/p TAVR in 2019, anemia, and ABDIEL who presents after several syncopal episodes and falls at home. Over the past several days at home, he is had several falls where he feels very weak and collapses suddenly. He denies hitting his head or loss of consciousness with the falls. His right elbow is painful, however denies head, neck, abdominal, chest, or other extremity pain. He is a current smoker however denies any exacerbation in his chronic cough or sputum production. Without any angina pectoris or anginal equivalent symptoms. He continues to use 5-6 L of oxygen at home and has been compliant with his diuretic therapy. He does take iron supplementation and has for years, therefore it is difficult for him to assess his stools for blood, however notes they have been dark and normal for him, not painful or with any obvious red blood in them. Denies dysuria, urinary retent ion, frequency or hematuria. Other than a baby aspirin daily, he is not on any DOAC's or other blood thinners. In the ED, been mildly hypertensive with a BP 147/49, otherwise vital signs are within normal limits, HR is in the 80s and he is hemodynamically stable. He is 99% on his home O2 requirement of 5 L NC. Labs are significant for H/H 5.2/17.0, CO2 41, given his severe COPD this is about his baseline. BUN 50, creatinine 1.36, baseline seems to be in the 0.91.2 range. His BNP is 366, hsTrop is 17.1. UA without evidence of infection. CXR with evidence of pulmonary vascular congestion and small pleural effusions with bibasilar scarring and atelectasis. Principal Diagnosis anemia Discharge Exam In general he is awake and alert pleasant no distress. HEENT normocephalic atraumatic mucous membranes moist. Breathing unlabored no accessory muscle use good effort. Skin shows no rashes no pallor or icterus. Neuro without focal deficits. Discharge Data Allergies Allergy/AdvReac Type Severity Reaction Status Date / Time No Known Allergies Allergy Verified 06/30/22 15:35 Consultations 07/22/22 14:10 ED Decision to Admit Stat 07/22/22 16:55 Consult Gastroenterology Routine Procedures Performed Operation Date: 07/24/22 16:55 Actual Procedures p Esophagogastroduodenoscopy(Not Applicable) - Gibson Bobby Newell, DO Ordered Studies 07/22/22 14:07 CT abd pelvis IV con only Stat Hospital Course (1) Symptomatic anemia: - Has been transfused 3 units thus far, hemoglobin now 8.5. Hemodynamically stable. EGD negativediscussed small bowel and colon work-upbut he has been stable so this could be done as an outpatient. serial CBC as outpt. possibly subacute GI blood loss anemia - but also possibly iron malabsorption. (2) Iron deficiency anemia: - Has been on iron supplementation for years as he has been chronically anemic - Iron 16 (L), transferrin 294, ferritin 21,got 3 units transfused, have also given several doses of Venofer. Continue p.o. iron as an outpatient, changed to Q.O.D. follow iron studies as well as CBC periodically. if iron doesn't improve w ongoing PO (had 2 doses of venofer and 3 units of blood as far as iron load here) then might need to consider intermittent IV iron supplementation as outpt. (3) COPD (chronic obstructive pulmonary disease): - No evidence of acute exacerbation today. Breathing feels pretty reasonable overall. - 99% on 5 L NC (baseline requirement). chronic hypoxic respiratory failure (likely due to COPD and chronic HFpEF/diastolic CHF) - Continue home inhalers. (4) GERD (gastroesophageal reflux disease): PPI (5) Tobacco use disorder: - Former smoker, quit since last admission. No longer requiring nicotine patches. (6) Chronic diastolic (congestive) heart failure: - Continue Bumex 4 mg BID, metolazone 2.5 mg daily, and spironolactone 25 mg BID. -Breathing feeling pretty reasonable overall. - Dry weight 185 lbs. (7) Allergic rhinitis with postnasal drip: - Continue azelastine spray. (8) Anxiety: - Continue Lexapro, BuSpar. Plan Pharmacologic DVT prophylaxis contraindicated due to anemia of uncertain source Total Time Total Time Spent Total Time Spent (In Minutes): <30 Discharge Plan Discharge Items Patient Disposition: Home - Self-Care Reason For Visit: SYMPTOMATIC ANEMIA Discharge Diagnosis: Iron deficiency anemia Activity: Resume your previous activity Non-emergency contact: Primary Care Provider and Household Personal Assistant Call non-emergency contact if: you have any medication questions and your symptoms worsen Follow-up/Referrals: Angela Schultz MD [Primary Care Provider] - Diet: Heart Healthy and Low Sodium (2gm) Addtl Attending Provider Instructions: Iron deficiency anemia -Fortunately the upper endoscopy did not show any ulcers or other bleeding. As we discussed, the small bowel and the colon are both possible sources of bleedingand it is likely worthwhile to have those evaluated as an outpatient, but given that largely those become more of a "smoking gun to be monitored" than always a problem that can truly be intervened upon, it is certainly okay for you to go about these at your own pace. Probably would entail another colonoscopy and a small intestine capsule endoscopy (camera pill) -Your blood counts have improved nicely. It looks like giving you iron is helped a good bit. Your current counts (hemoglobin) are 9.9. -Given that we have to look at this as an ongoing problem, I would recommend ongoing monitoring fairly closely. We should have blood counts checked about once a week for the month of July, and then depending on what your counts are looking like/what the trend is, then it can probably be spaced out more. We should also continue to replace iron and then repeat iron levels in about 3 months (around Thanks). If your iron levels are persistently lowthe concern might be that you are not absorbing iron in your intestinal tract very effectively, and may need to be set up for periodic IV iron. As we also discussed, while it sounds very bizarre, there is a prevalent thought that taking more iron actually creates a bit of a "bottleneck" on iron absorption, and that we can sometimes get people to absorb more iron by taking less. To that end over the next 3 months we will have you drop your iron down from 1 tab twice daily to 1 tablet every other day. With your coronary artery disease, and with her not being a clear major source of bleeding, the risk/benefit at this time is that cautiously we will have you resume your aspirin. To do: -Take iron every other day -Have blood counts (CBC) checked once a week through July, and then at your PCPs direction thereafter -Have iron levels checked again in about 3 months (around Thanks) -Follow-up with gastroenterology in the next few weeks to discuss the ongoing work-up -Follow-up with your PCP in the next week or so for all of the other active medical problems Pending Studies at Discharge: No Stand-Alone Forms: My [facility], Smoking Cessation Medications and DC Order Prescriptions: Continued diphenhydramine HCl [Benadryl] 25 mg capsule 25 mg PO HS melatonin 3 mg capsule 6 mg PO HS docusate sodium 100 mg capsule 100 mg PO BID nicotine (polacrilex) 2 mg gum 2 mg buccal Q2H PRN (Reason: nicotine cravings) Qty: 120 3RF magnesium 250 mg tablet 250 mg PO DAILY atorvastatin 80 mg tablet 80 mg PO QPM multivitamin [Multiple Vitamins] Tablet 1 tab PO DAILY escitalopram oxalate 10 mg tablet 20 mg PO DAILY acetaminophen 325 mg capsule 650 mg PO QID PRN (Reason: Pain) spironolactone 25 mg tablet 25 mg PO BID 30 Days Qty: 60 3RF metolazone 2.5 mg tablet 2.5 mg PO DAILY bumetanide 2 mg tablet See Rx Instructions PO BID Rx Instructions: 2 tablet in the AM @ 0600; 2 tab @ lunch Trelegy Ellipta 100-62.5-25 mcg blister with device 1 inh inhalation DAILY Qty: 3 1RF albuterol sulfate 90 mcg/actuation HFA aerosol inhaler 2 puff inhalation Q6H PRN (Reason: Shortness Of Breath Or Wheezing) Qty: 18 3RF azelastine 137 mcg (0.1 %) aerosol,spray 2 spray intranasal DAILY Qty: 30 3RF potassium chloride 20 mEq tablet extended release 20 meq PO QAM Qty: 0 0RF aspirin [Adult Low Dose Aspirin] 81 mg tablet,delayed release (DR/EC) 81 mg PO QPM calcium 300 mg Tablet,Chewable 600 mg PO BID pantoprazole 40 mg tablet,delayed release (DR/EC) 40 mg PO BID 30 Days Qty: 60 0RF ipratropium-albuterol 0.5 mg-3 mg(2.5 mg base)/3 mL solution for nebulization 3 ml inhalation Q6H PRN (Reason: wheezing) Qty: 180 0RF buspirone 10 mg tablet 10 mg PO TID PRN (Reason: Anxiety) Changed ferrous sulfate 325 mg (65 mg iron) tablet 65 mg PO UD Qty: 30 0RF Discharge Orders: Discharge Order (Routine); Ordered 07/25/22 Ordered By: Carlton Veloz Admission Data Admit Date/Time: 07/22/22 14:47 Attending Provider: Carlton Veloz Admit Provider: Bran Nathan Primary Care Provider: Angela Schultz Other Providers: Bran Nathan ; Gibson Newell Other Interventions: Discharge Summary Assessment (RN) Last Done: 07/25/22 13:04 Coding Level of Care Code D/C DAY MANAGEMENT <30 MINS Diagnoses Symptomatic anemia D64.9 Iron deficiency anemia D50.9 COPD (chronic obstructive pulmonary disease) J44.1 COPD type: COPD with acute exacerbation GERD (gastroesophageal reflux disease) K21.9 Tobacco use disorder F17.200 Chronic diastolic (congestive) heart failure I50.32 Allergic rhinitis with postnasal drip J30.9; R09.82 Anxiety F41.9
--- NOTE | 2022-07-25 16:57 | Billing Data ---
Date of Service July 25, 2022 Coding Level of Care Code D/C DAY MANAGEMENT <30 MINS Comment should be short dc code today, i may have mis-clicked on progress note billing
== END 2022-07-25 13:19 | disposition home health service (06) | DRG 378 ==
LOC: ED 12:01 → SUATTDRO 14:47 → 4W 14:47

== ENCOUNTER 2022-08-04 13:55 | Inpatient (IN) ==
[2022-08-04] MEDS ORDERED: SODIUM CHLORIDE 0.9% 250 ML IV PRN (14:23)
[2022-08-04 14:37] LABS: Hematocrit (blood only) 18.8 % (40.1-51.0); Hemoglobin 5.7 g/dl (14.0-18.0); Mean Corpuscular Hemoglobin 27.8 pg (25.0-34.0); Mean Corpuscular Hgb Conc 30.3 g/dL (32.0-36.0); Mean Corpuscular Volume 91.7 fL (80.0-100.0); Mean Platelet Volume 9.8 fL (9.4-12.4); Nucleated RBC # (auto) 0.02 K/uL (0-0); Nucleated RBC % (auto) 0.2 %; Platelet Count 346 K/uL (130-400); RDW Coefficient of Variation 14.6 % (11.5-14.5); RDW Standard Deviation 47.9 fL (36.4-46.3); Red Blood Count 2.05 M/uL (4.63-6.08); White Blood Count 9.57 K/ul (4.8-10.8)
[2022-08-04 14:38] LABS: Appearance Urine Clear (Clear); Bilirubin Urine Negative (Negative); Blood Urine Negative (Negative); Color Urine Yellow; Glucose Urine UA Negative (Negative); Ketones Urine Negative (Negative); Leukocyte Esterase Urine Negative (Negative); Nitrite Urine Negative (Negative); Protein Urine Negative (Negative); Specific Gravity Urine 1.007 (1.000-1.030); Urobilinogen Urine Negative (Negative)
[2022-08-04 14:38] LABS: iSTAT Creatinine 1.4 mg/dl (0.6-1.3); iSTAT Hemoglobin 7.5 g/dl (14.0-18.0); iSTAT Ionized Calcium 1.3 mmol/l (1.12-1.32); iSTAT Potassium 3.8 mmol/L (3.3-5.0)
[2022-08-04 14:41] LABS: Prothrombin Time 10.8 Seconds (9.0-12.0)
--- NOTE | 2022-08-04 14:44 | Emergency Department Note ---
Impression & Plan Symptomatic anemia, Iron deficiency anemia, Generalized weakness ED Provider Note NAME: TIEN PIERCE AGE: 77 SEX: M ARRIVES VIA: Walk-In INFORMANT: Patient ED PROVIDER(S): Kurt Lugo MD CHIEF COMPLAINT: Anemia, referred. PLAN: Disposition: Admit MEDICAL DECISION MAKING: The patient is a pleasant 77-year-old gentleman with a past medical history of COPD on 5-6 L home O2, CHF, hypertension, iron deficiency anemia who presents to the emergency departmentas a walk-in referred from his PCPs office for evaluation of recurrence of symptomatic anemia where he had an outpatient hemoglobin of 5.8 today which was performed in follow-up for his recent admission for similar symptomatic anemia where he was admitted from 07/22-07/25 and transfused 4 units of PRBCs. He had an EGD that demonstrated no source for his bleeding. Thus, additional considerations for the future were poor iron absorption as well as occult lower GI source. He did have a CT of his abdomen during his last ED evaluation/admission that was unremarkable. The patient ac knowledges he was surprised that he was told that his blood counts dropped again though he does admit that he has been feeling weak though not as bad as before. He reports yesterday he was walking to get his dog and upon trying to walk back had profound leg weakness fell to his knees but was able to brace himself on a chair and after gather himself was able to get up and walk. He denies any feve rs, chills, cough, congestion, vomiting or diarrhea. He reports his stools remain black but in the setting of taking oral iron supplementation. Denies any redness or blood related to this. He denies any blood in his urine or urinary symptoms. Given the patient's recurrence of his anemia he was consented for blood transfusion again. He does agree with plan for admission for further evaluation given the significant drop in his H/H where he was 8 on 07/31 and now is 5.7/18.8. On arrival the patient is fatigued appearing but no acute distress, afebrile stable vital signs. He has moderate pallor. EKG without overt acute ischemia. WBC within normal limits. H/H 5.7/18.8. Platelets within normal limits. Reticulocyte appropriately elevated Iron remains low at 16. Chemistry without metabolic acidosis. Bicarbonate 40 consistent with the patient's chronic respiratory failure. LFTs without significant abnormality. TSH within normal limits. UA without evidence of infection. COVID-19 RNA, CHUY test was negative. Patient was ordered for 2 units of PRBCs. The patient again agrees with plan for admission for further management. Case was discussed with RU Cantu PAC with Dr. Kevin VENCES hospitalist, who will evaluate the patient for admission. Triage Nursing notes reviewed and agree them. Prior medical records reviewed Vital Signs: reviewed and remarkable for no significant abnormalities Differential diagnosis: Infection, dehydration, metabolic abnormality, hypo/hyperglycemia, electrolyte disturbance, anemia, hypoxia, cardiac sources, intracerebral event, toxicologic, neurologic, as well as other pathologies. ER treatment provided: See below. Diagnostics interpreted by me: ECG: Sinus rhythm, first-degree AV block, 81 bpm, nonspecific intraventricular conduction block, no overt ST elevation or depression, QTC 469, QRS 128. Similar to prior. Cardiac Monitoring: An order for continuous cardiac monitoring was placed and demonstrated Sinus rhythm, first-degree AV block, 81 bpm, no ectopy. Laboratory studies: See below Imaging studies: See below Consultation(s): RU Cantu PAC with Dr. Kevin VENCES hospitalist. HPI: The patient is a pleasant 77-year-old gentleman with a past medical history of COPD on 5-6 L home O2, CHF, hypertension, iron deficiency anemia who presents to the emergency departmentas a walk-in referred from his PCPs office for evaluation of recurrence of symptomatic anemia where he had an outpatient hemoglobin of 5.8 today which was performed in follow-up for his recent admission for similar symptomatic anemia where he was admitted from 07/22-07/25 and transfused 4 units of PRBCs. He had an EGD that demonstrated no source for his bleeding. Thus, additional considerations for the future were poor iron absorption as well as occult lower GI source. He did have a CT of his abdomen during his last ED evaluation/admission that was unremarkable. The patient acknowledges he was surprised that he was told that his blood counts dropped again though he does admit that he has been feeling weak though not as bad as before. He reports yesterday he was walking to get his dog and upon trying to walk back had profound leg weakness fell to his knees but was able to brace himself on a chair and after gather himself was able to get up and walk. He denies any fevers, chills, cough, congestion, vomiting or diarrhea. He reports his stools remain black but in the setting of taking oral iron supplementation. Denies any redness or blood related to this. He denies any blood in his urine or urinary symptoms. Given the patient's recurrence of his anemia he was consented for blood transfusion again. He does agree with plan for admission for further evaluation given the significant drop in his H/H where he was 8/26 on 07/31 and now is 5.7/18.8. ROS: See above HPI for pertinent positives & negatives. A total of 10 systems reviewed and were otherwise negative. VITALS:See Below PHYSICAL EXAMINATION: GENERAL: Awake, alert, fatigued-appearing, in no distress HENT: Normocephalic, atraumatic. Oropharynx with dry mucous membranes and otherwise unremarkable. . EYES: Normal conjunctiva. Sclera non-icteric. NECK: Supple. No nuchal rigidity. FROM. No JVD. RESPIRATORY: Clear to auscultation. CARDIAC: Regular rate, normal rhythm. Extremities warm and well perfused. Pulses equal. ABDOMEN: Soft, non-distended. No tenderness to palpation. No rebound or guarding. No masses. RECTAL: Deferred. MUSCULOSKELETAL: Chest examination reveals no tenderness. The back is symmetr ical on inspection without obvious abnormality. There is no CVA tenderness to palpation. No joint edema. LOWER EXTREMITIES: Calves are equal size bilaterally and non-tender. No edema. No discoloration. NEURO: Normal sensorium. No sensory or motor deficits noted. SKIN: Moderate pallor. No rash or jaundice noted. ED COURSE: Critical Care: I have personally spent greater than 45 minutes of critical care time in the direct management of this patient. This includes bedside care, interpretation of diagnostic studies, and testing, discussion with consultants, patient, and family members, and other required patient management activities. This 45 minutes is in excess of all separately billable procedures. Kurt Lugo MD Past Med/Surg History Medical History Acute GI bleeding Acute hyperglycemia Anemia Anemia Anemia Aortic stenosis severe asymptomatic Elevated troponin I level GERD (gastroesophageal reflux disease) History of GI bleed Hypertension Hypertension Hypoxia Hypoxia Metabolic alkalosis with respiratory acidosis SOB (shortness of breath) Tobacco use disorder Uremia Surgical History History of left-sided carotid endarterectomy 2014 S/P appendectomy Family History Father Hypertension Mother Hypotension Breast cancer Other No family history of adverse response to anesthesia No family history of bleeding disorder Social History Smoking Status: Never smoker Tobacco Type: Cigarettes packs per day: 1; Second Hand Exposure: No; Hx Alcohol Use: Yes Alcohol type: hard liquor Alcohol Intake Frequency: Monthly or Less Alcohol Intake Frequency Comment: 1 bottle of Manny Dupree a month Hx Substance Use: No Preferred Language: Bulgarian Communication Ability: Effective Visual Impairment: No 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 Beliefs That Will Affect Care: None marital status: Current Living Situation: Family Current Living Situation Comment: house current occupational status: retired Other Information That Helps Us Care for You: No Feels Safe at Home: Yes Safety Concerns: Feels Safe At This Time Assistive Devices: Oxygen - Continuous Allergies Allergies Allergy/AdvReac Type Severity Reaction Status Date / Time No Known Allergies Allergy Verified 07/30/22 16:07 Home Meds Home Medications Medication Instructions Recorded Confirmed atorvastatin 80 mg tablet 80 mg PO QPM 05/20/20 08/04/22 magnesium 250 mg tablet 250 mg PO DAILY 05/20/20 08/04/22 multivitamin (Multiple Vitamins 1 tab PO DAILY 05/21/20 08/04/22 tablet) docusate sodium 100 mg capsule 100 mg PO BID 06/10/20 08/04/22 aspirin 81 mg tablet,delayed 81 mg PO QPM 03/19/22 08/04/22 release (Adult Low Dose Aspirin) escitalopram oxalate 10 mg tablet 20 mg PO DAILY 05/01/22 08/04/22 diphenhydramine HCl 25 mg capsule 25 mg PO HS 05/26/22 08/04/22 (Benadryl) melatonin 3 mg capsule 6 mg PO HS 05/26/22 08/04/22 bumetanide 2 mg tablet See Rx Instructions PO BID 05/29/22 08/04/22 buspirone 10 mg tablet 10 mg PO TID PRN Anxiety 07/22/22 08/04/22 calcium carbonate 600 mg calcium 600 mg PO DAILY 08/04/22 08/04/22 (1,500 mg) tablet (Calcium) pantoprazole 40 mg tablet,delayed 40 mg PO DAILY 08/04/22 08/04/22 release Previous Rx's Medication Instructions Recorded spironolactone 25 mg tablet 25 mg PO BID 30 days #60 tabs 09/30/20 azelastine 137 mcg (0.1 %) nasal 2 spray intranasal DAILY #30 mL 03/10/22 spray aerosol albuterol sulfate 90 mcg/actuation 2 puff inhalation Q6H PRN 03/27/22 aerosol inhaler Shortness Of Breath Or Wheezing #18 grams fluticasone fur. 100 mcg-umeclid 1 inh inhalation DAILY #3 Inhalers 03/27/22 62.5 mcg-vilant 25 mcg inhalat.powder (Trelegy Ellipta) potassium chloride 20 mEq 20 meq PO QAM #0 tabs 04/20/22 tablet,extended release ferrous sulfate 325 mg (65 mg 65 mg PO UD #30 tabs 07/25/22 iron) tablet metolazone 2.5 mg tablet 2.5 mg PO DAILY #90 tabs 07/30/22 Results & Data (ED) Vital Signs Vital Signs - 24 hr 08/04/22 13:58 08/04/22 14:20 08/04/22 14:20 Temperature 36.4 C L Temperature Source Temporal Artery Scan Pulse Rate 91 H 82 Pulse Rate [Apical] 81 Pulse Rate from SpO2 Sensor Pulse Rhythm Regular Pulse Rhythm [Apical] Regular Pulse Strength Respiratory Rate 18 18 18 Respiratory Effort / Characteristics Non-Labored Spontaneous Non-Labored Spontaneous Respiratory Depth Normal Normal Respiratory Pattern Regular Regular Blood Pressure 133/44 L Blood Pressure [Left Arm] 150/47 H Blood Pressure Mean 73 Blood Pressure Mean [Left Arm] 81 Blood Pressure Position Sitting Blood Pressure Position [Left Arm] Semi-fowlers Pulse Oximetry 97 92 92 Oxygen Delivery Method Room Air Nasal Cannula Nasal Cannula Oxygen Flow Rate 6 6 Sepsis Recent Fever Within 48 Hours No Sepsis New/Unexplained Change in Mental Status N/A Sepsis Action Taken by Nursing No Action Required 08/04/22 15:41 08/04/22 15:56 08/04/22 14:20 Temperature 37.1 C 36.7 C Temperature Source Oral Oral Pulse Rate 79 89 84 Pulse Rate [Apical] Pulse Rate from SpO2 Sensor 83 Pulse Rhythm Regular Regular Pulse Rhythm [Apical] Pulse Strength Normal Normal Respiratory Rate 18 20 13 Respiratory Effort / Characteristics Respiratory Depth Respiratory Pattern Blood Pressure 135/51 L 140/50 L Blood Pressure [Left Arm] Blood Pressure Mean 79 80 Blood Pressure Mean [Left Arm] Blood Pressure Position Lying Sitting Blood Pressure Position [Left Arm] Pulse Oximetry 98 95 91 Oxygen Delivery Method Oxygen Flow Rate 5 6 Sepsis Recent Fever Within 48 Hours Sepsis New/Unexplained Change in Mental Status Sepsis Action Taken by Nursing 08/04/22 14:30 08/04/22 14:30 08/04/22 15:00 Temperature Temperature Source Pulse Rate 79 Pulse Rate [Apical] Pulse Rate from SpO2 Sensor 79 Pulse Rhythm Pulse Rhythm [Apical] Pulse Strength Respiratory Rate Respiratory Effort / Characteristics Respiratory Depth Respiratory Pattern Blood Pressure 133/60 127/61 Blood Pressure [Left Arm] Blood Pressure Mean 84 83 Blood Pressure Mean [Left Arm] Blood Pressure Position Blood Pressure Position [Left Arm] Pulse Oximetry 96 Oxygen Delivery Method Oxygen Flow Rate Sepsis Recent Fever Within 48 Hours Sepsis New/Unexplained Change in Mental Status Sepsis Action Taken by Nursing 08/04/22 15:00 08/04/22 15:30 08/04/22 15:30 Temperature Temperature Source Pulse Rate 82 73 Pulse Rate [Apical] Pulse Rate from SpO2 Sensor Pulse Rhythm Pulse Rhythm [Apical] Pulse Strength Respiratory Rate Respiratory Effort / Characteristics Respiratory Depth Respiratory Pattern Blood Pressure 135/51 L Blood Pressure [Left Arm] Blood Pressure Mean 79 Blood Pressure Mean [Left Arm] Blood Pressure Position Blood Pressure Position [Left Arm] Pulse Oximetry Oxygen Delivery Method Oxygen Flow Rate Sepsis Recent Fever Within 48 Hours Sepsis New/Unexplained Change in Mental Status Sepsis Action Taken by Nursing 08/04/22 15:58 08/04/22 15:58 08/04/22 16:00 Temperature Temperature Source Pulse Rate 87 Pulse Rate [Apical] Pulse Rate from SpO2 Sensor 87 Pulse Rhythm Pulse Rhythm [Apical] Pulse Strength Respiratory Rate Respiratory Effort / Characteristics Respiratory Depth Respiratory Pattern Blood Pressure 140/44 L 153/49 H Blood Pressure [Left Arm] Blood Pressure Mean 76 83 Blood Pressure Mean [Left Arm] Blood Pressure Position Blood Pressure Position [Left Arm] Pulse Oximetry 92 Oxygen Delivery Method Oxygen Flow Rate Sepsis Recent Fever Within 48 Hours Sepsis New/Unexplained Change in Mental Status Sepsis Action Taken by Nursing 08/04/22 16:00 Temperature Temperature Source Pulse Rate 86 Pulse Rate [Apical] Pulse Rate from SpO2 Sensor 86 Pulse Rhythm Pulse Rhythm [Apical] Pulse Strength Respiratory Rate Respiratory Effort / Characteristics Respiratory Depth Respiratory Pattern Blood Pressure Blood Pressure [Left Arm] Blood Pressure Mean Blood Pressure Mean [Left Arm] Blood Pressure Position Blood Pressure Position [Left Arm] Pulse Oximetry 95 Oxygen Delivery Method Oxygen Flow Rate Sepsis Recent Fever Within 48 Hours Sepsis New/Unexplained Change in Mental Status Sepsis Action Taken by Nursing Laboratory Data Attestation: I reviewed the patient's lab results. Result diagrams: 08/04/22 23:40 08/04/22 14:14 Lab Results 08/04/22 08/04/22 08/04/22 Range/Units 14:06 14:14 14:14 WBC (4.8-10.8) K/ul RBC (4.63-6.08) M/uL Hgb (14.0-18.0) g/dl POC Hgb (14.0-18.0) g/dl Hct (40.1-51.0) % POC Hct (42-52) % MCV (80.0-100.0) fL MCH (25.0-34.0) pg MCHC (32.0-36.0) g/dL RDW Std Deviation (36.4-46.3) fL RDW Coeff of Vesta (11.5-14.5) % Plt Count (130-400) K/uL MPV (9.4-12.4) fL Immature Gran % (Auto) % Neut % (Auto) % Lymph % (Auto) % [place] % (Auto) % Eos % (Auto) % Baso % (Auto) % Reticulocyte % (Auto) (0.5-2.0) % Neut # (Auto) (1.4-6.5) K/uL Lymph # (Auto) (1.2-3.4) K/uL [place] # (Auto) (0.24-0.82) K/uL Eos # (Auto) (0-0.50) K/uL Baso # (Auto) (0-0.2) K/uL Reticulocyte # (0.02-0.10) 10^6/uL Immature Gran # (Auto) (0.00-0.02) K/uL Absolute Nucleated RBC (0-0) K/uL Nucleated RBC % (auto) % Hypochromasia Anisocytosis PT 10.8 (9.0-12.0) Seconds INR 1.0 (0.9-1.1) POC Sodium (135-144) mmol/L Sodium (136-145) mmol/L POC Potassium (3.3-5.0) mmol/L Potassium (3.5-5.1) mmol/L POC Chloride (101-112) mmol/L Chloride (98-107) mmol/L Carbon Dioxide (21-32) mmol/L POC Total CO2 (24-31) mmol/L Anion Gap (3-11) POC Anion Gap (16-25) mmol/L POC BUN (7-18) mg/dl BUN (6-23) mg/dl Creatinine (0.6-1.4) mg/dl POC Creatinine (0.6-1.3) mg/dl Est Cr Clr Drug Dosing ml/min Est GFR ( Amer) ml/min Est GFR (Non-Af Amer) ml/min BUN/Creatinine Ratio (10-20) Glucose (70-99(Fasting)) mg/dl POC Glucose (other) (70-99) mg/dl Calcium (8.5-10.1) mg/dl POC Ioniz Calcium Stacia (1.12-1.32) mmol/l Phosphorus (2.5-4.9) mg/dl Magnesium (1.7-2.4) mg/dl Iron (35-175) mcg/dl Transferrin (200-360) mg/dl Ferritin (8-388) ng/ml Total Bilirubin (0.2-1.0) mg/dl AST (13-39) U/L ALT (7-52) U/L Alkaline Phosphatase (34-104) U/L Lactate Dehydrogenase (86-244) U/L Total Protein (6.0-8.3) gm/dl Albumin (3.4-5.0) gm/dl Globulin (2.5-4.0) gm/dl Albumin/Globulin Ratio (0.9-2) TSH (0.300-4.500) uIu/ml Urine Color Yellow Urine Appearance Clear (Clear) Urine pH 7.0 (4.5-7.5) Ur Specific Bentley 1.007 (1.000-1.030) Urine Protein Negative (Negative) Urine Glucose (UA) Negative (Negative) Urine Ketones Negative (Negative) Urine Blood Negative (Negative) Urine Nitrite Negative (Negative) Urine Bilirubin Negative (Negative) Urine Urobilinogen Negative (Negative) Ur Leukocyte Esterase Negative (Negative) SARS-CoV-2, RNA, NAAT (NEGATIVE) Blood Type O Positive Antibody Screen NEGATIVE Crossmatch See Detail 08/04/22 08/04/22 08/04/22 Range/Units 14:14 14:14 14:14 WBC 9.57 (4.8-10.8) K/ul RBC 2.05 L (4.63-6.08) M/uL Hgb 5.7 L* (14.0-18.0) g/dl POC Hgb (14.0-18.0) g/dl Hct 18.8 L* (40.1-51.0) % POC Hct (42-52) % MCV 91.7 (80.0-100.0) fL MCH 27.8 (25.0-34.0) pg MCHC 30.3 L (32.0-36.0) g/dL RDW Std Deviation 47.9 H (36.4-46.3) fL RDW Coeff of Vesta 14.6 H (11.5-14.5) % Plt Count 346 (130-400) K/uL MPV 9.8 (9.4-12.4) fL Immature Gran % (Auto) 0.6 % Neut % (Auto) 81.7 % Lymph % (Auto) 5.9 % [place]ois % (Auto) 8.7 % Eos % (Auto) 2.5 % Baso % (Auto) 0.6 % Reticulocyte % (Auto) 8.2 H (0.5-2.0) % Neut # (Auto) 7.82 H (1.4-6.5) K/uL Lymph # (Auto) 0.56 L (1.2-3.4) K/uL [place] # (Auto) 0.83 H (0.24-0.82) K/uL Eos # (Auto) 0.24 (0-0.50) K/uL Baso # (Auto) 0.06 (0-0.2) K/uL Reticulocyte # 0.17 H (0.02-0.10) 10^6/uL Immature Gran # (Auto) 0.06 H (0.00-0.02) K/uL Absolute Nucleated RBC 0.02 H (0-0) K/uL Nucleated RBC % (auto) 0.2 % Hypochromasia Present Anisocytosis Present PT (9.0-12.0) Seconds INR (0.9-1.1) POC Sodium (135-144) mmol/L Sodium 136 (136-145) mmol/L POC Potassium (3.3-5.0) mmol/L Potassium 3.9 (3.5-5.1) mmol/L POC Chloride (101-112) mmol/L Chloride 90 L (98-107) mmol/L Carbon Dioxide 40 H (21-32) mmol/L POC Total CO2 (24-31) mmol/L Anion Gap 6 (3-11) POC Anion Gap (16-25) mmol/L POC BUN (7-18) mg/dl BUN 49 H (6-23) mg/dl Creatinine 1.26 (0.6-1.4) mg/dl POC Creatinine (0.6-1.3) mg/dl Est Cr Clr Drug Dosing 54.3 ml/min Est GFR ( Amer) 62.5 ml/min Est GFR (Non-Af Amer) 53.9 ml/min BUN/Creatinine Ratio 38.9 H (10-20) Glucose 184 H (70-99(Fasting)) mg/dl POC Glucose (other) (70-99) mg/dl Calcium 10.0 (8.5-10.1) mg/dl POC Ioniz Calcium Stacia (1.12-1.32) mmol/l Phosphorus 3.3 (2.5-4.9) mg/dl Magnesium 2.3 (1.7-2.4) mg/dl Iron 16 L (35-175) mcg/dl Transferrin 316 (200-360) mg/dl Ferritin 36.7 (8-388) ng/ml Total Bilirubin 0.3 (0.2-1.0) mg/dl AST 18 (13-39) U/L ALT 12 (7-52) U/L Alkaline Phosphatase 79 (34-104) U/L Lactate Dehydrogenase (86-244) U/L Total Protein 6.7 (6.0-8.3) gm/dl Albumin 4.0 (3.4-5.0) gm/dl Globulin 2.7 (2.5-4.0) gm/dl Albumin/Globulin Ratio 1.5 (0.9-2) TSH 3.227 (0.300-4.500) uIu/ml Urine Color Urine Appearance (Clear) Urine pH (4.5-7.5) Ur Specific Bentley (1.000-1.030) Urine Protein (Negative) Urine Glucose (UA) (Negative) Urine Ketones (Negative) Urine Blood (Negative) Urine Nitrite (Negative) Urine Bilirubin (Negative) Urine Urobilinogen (Negative) Ur Leukocyte Esterase (Negative) SARS-CoV-2, RNA, NAAT (NEGATIVE) Blood Type Antibody Screen Crossmatch 08/04/22 08/04/22 08/04/22 Range/Units 14:14 14:14 14:20 WBC (4.8-10.8) K/ul RBC (4.63-6.08) M/uL Hgb (14.0-18.0) g/dl POC Hgb (14.0-18.0) g/dl Hct (40.1-51.0) % POC Hct (42-52) % MCV (80.0-100.0) fL MCH (25.0-34.0) pg MCHC (32.0-36.0) g/dL RDW Std Deviation (36.4-46.3) fL RDW Coeff of Vesta (11.5-14.5) % Plt Count (130-400) K/uL MPV (9.4-12.4) fL Immature Gran % (Auto) % Neut % (Auto) % Lymph % (Auto) % [place] % (Auto) % Eos % (Auto) % Baso % (Auto) % Reticulocyte % (Auto) (0.5-2.0) % Neut # (Auto) (1.4-6.5) K/uL Lymph # (Auto) (1.2-3.4) K/uL [place] # (Auto) (0.24-0.82) K/uL Eos # (Auto) (0-0.50) K/uL Baso # (Auto) (0-0.2) K/uL Reticulocyte # (0.02-0.10) 10^6/uL Immature Gran # (Auto) (0.00-0.02) K/uL Absolute Nucleated RBC (0-0) K/uL Nucleated RBC % (auto) % Hypochromasia Anisocytosis PT (9.0-12.0) Seconds INR (0.9-1.1) POC Sodium (135-144) mmol/L Sodium (136-145) mmol/L POC Potassium (3.3-5.0) mmol/L Potassium (3.5-5.1) mmol/L POC Chloride (101-112) mmol/L Chloride (98-107) mmol/L Carbon Dioxide (21-32) mmol/L POC Total CO2 (24-31) mmol/L Anion Gap (3-11) POC Anion Gap (16-25) mmol/L POC BUN (7-18) mg/dl BUN (6-23) mg/dl Creatinine (0.6-1.4) mg/dl POC Creatinine (0.6-1.3) mg/dl Est Cr Clr Drug Dosing ml/min Est GFR ( Amer) ml/min Est GFR (Non-Af Amer) ml/min BUN/Creatinine Ratio (10-20) Glucose (70-99(Fasting)) mg/dl POC Glucose (other) (70-99) mg/dl Calcium (8.5-10.1) mg/dl POC Ioniz Calcium Stacia (1.12-1.32) mmol/l Phosphorus Cancelled (2.5-4.9) mg/dl Magnesium (1.7-2.4) mg/dl Iron (35-175) mcg/dl Transferrin (200-360) mg/dl Ferritin (8-388) ng/ml Total Bilirubin (0.2-1.0) mg/dl AST (13-39) U/L ALT (7-52) U/L Alkaline Phosphatase (34-104) U/L Lactate Dehydrogenase 174 (86-244) U/L Total Protein (6.0-8.3) gm/dl Albumin (3.4-5.0) gm/dl Globulin (2.5-4.0) gm/dl Albumin/Globulin Ratio (0.9-2) TSH (0.300-4.500) uIu/ml Urine Color Urine Appearance (Clear) Urine pH (4.5-7.5) Ur Specific Bentley (1.000-1.030) Urine Protein (Negative) Urine Glucose (UA) (Negative) Urine Ketones (Negative) Urine Blood (Negative) Urine Nitrite (Negative) Urine Bilirubin (Negative) Urine Urobilinogen (Negative) Ur Leukocyte Esterase (Negative) SARS-CoV-2, RNA, NAAT NEGATIVE (NEGATIVE) Blood Type Antibody Screen Crossmatch 08/04/22 Range/Units 14:26 WBC (4.8-10.8) K/ul RBC (4.63-6.08) M/uL Hgb (14.0-18.0) g/dl POC Hgb 7.5 L (14.0-18.0) g/dl Hct (40.1-51.0) % POC Hct 22 L (42-52) % MCV (80.0-100.0) fL MCH (25.0-34.0) pg MCHC (32.0-36.0) g/dL RDW Std Deviation (36.4-46.3) fL RDW Coeff of Vesta (11.5-14.5) % Plt Count (130-400) K/uL MPV (9.4-12.4) fL Immature Gran % (Auto) % Neut % (Auto) % Lymph % (Auto) % [place] % (Auto) % Eos % (Auto) % Baso % (Auto) % Reticulocyte % (Auto) (0.5-2.0) % Neut # (Auto) (1.4-6.5) K/uL Lymph # (Auto) (1.2-3.4) K/uL [place] # (Auto) (0.24-0.82) K/uL Eos # (Auto) (0-0.50) K/uL Baso # (Auto) (0-0.2) K/uL Reticulocyte # (0.02-0.10) 10^6/uL Immature Gran # (Auto) (0.00-0.02) K/uL Absolute Nucleated RBC (0-0) K/uL Nucleated RBC % (auto) % Hypochromasia Anisocytosis PT (9.0-12.0) Seconds INR (0.9-1.1) POC Sodium 134 L (135-144) mmol/L Sodium (136-145) mmol/L POC Potassium 3.8 (3.3-5.0) mmol/L Potassium (3.5-5.1) mmol/L POC Chloride 85 L (101-112) mmol/L Chloride (98-107) mmol/L Carbon Dioxide (21-32) mmol/L POC Total CO2 38 H (24-31) mmol/L Anion Gap (3-11) POC Anion Gap 16.0 (16-25) mmol/L POC BUN 50 H (7-18) mg/dl BUN (6-23) mg/dl Creatinine (0.6-1.4) mg/dl POC Creatinine 1.4 H (0.6-1.3) mg/dl Est Cr Clr Drug Dosing ml/min Est GFR ( Amer) ml/min Est GFR (Non-Af Amer) ml/min BUN/Creatinine Ratio (10-20) Glucose (70-99(Fasting)) mg/dl POC Glucose (other) 193 H (70-99) mg/dl Calcium (8.5-10.1) mg/dl POC Ioniz Calcium Stacia 1.30 (1.12-1.32) mmol/l Phosphorus (2.5-4.9) mg/dl Magnesium (1.7-2.4) mg/dl Iron (35-175) mcg/dl Transferrin (200-360) mg/dl Ferritin (8-388) ng/ml Total Bilirubin (0.2-1.0) mg/dl AST (13-39) U/L ALT (7-52) U/L Alkaline Phosphatase (34-104) U/L Lactate Dehydrogenase (86-244) U/L Total Protein (6.0-8.3) gm/dl Albumin (3.4-5.0) gm/dl Globulin (2.5-4.0) gm/dl Albumin/Globulin Ratio (0.9-2) TSH (0.300-4.500) uIu/ml Urine Color Urine Appearance (Clear) Urine pH (4.5-7.5) Ur Specific Bentley (1.000-1.030) Urine Protein (Negative) Urine Glucose (UA) (Negative) Urine Ketones (Negative) Urine Blood (Negative) Urine Nitrite (Negative) Urine Bilirubin (Negative) Urine Urobilinogen (Negative) Ur Leukocyte Esterase (Negative) SARS-CoV-2, RNA, NAAT (NEGATIVE) Blood Type Antibody Screen Crossmatch Administered Medications Atorvastatin Calcium (Atorvastatin 40 Mg Tab) 80 mg PO QPM MARZENA Stop: 09/03/22 20:59 Last Admin: 08/04/22 20:39 Dose: 80 mg Documented By: DEBI Docusate Sodium (Docusate Sodium 100 Mg Cap) 100 mg PO BID MARZENA Stop: 09/03/22 20:59 Last Admin: 08/04/22 20:40 Dose: 100 mg Documented By: DEBI Melatonin (Melatonin 3 Mg Tab) 6 mg PO HS MARZENA Stop: 09/03/22 20:59 Last Admin: 08/04/22 20:41 Dose: 6 mg Documented By: DEBI Spironolactone (Spironolactone 25 Mg Tab) 25 mg PO BID MARZENA Stop: 09/03/22 20:59 Last Admin: 08/04/22 20:42 Dose: 25 mg Documented By: DEBI Discharge Plan Visit Data Chief Complaint: Abnormal Labs/Diagnostic Testing Stated Complaint: ABNORMAL LABS, REF BY ED Provider: Kurt Lugo Discharge Problem: Symptomatic anemia, Iron deficiency anemia, Generalized weakness Patient Disposition: Admitted As Inpatient Discharge Instructions Interventions: ED Discharge Assessment Last Done: 08/04/22 17:02
[2022-08-04 14:54] LABS: Anisocytosis Present; Basophils # (auto) 0.06 K/uL (0-0.2); Basophils % (auto) 0.6 %; Eosinophils # (auto) 0.24 K/uL (0-0.50); Eosinophils % (auto) 2.5 %; Hypochromasia Present; Immature Granulocytes # (auto) 0.06 K/uL (0.00-0.02); Immature Granulocytes % (auto) 0.6 %; Lymphocytes # (auto) 0.56 K/uL (1.2-3.4); Lymphocytes % (auto) 5.9 %; Monocytes # (auto) 0.83 K/uL (0.24-0.82); Monocytes % (auto) 8.7 %; Neutrophils # (auto) 7.82 K/uL (1.4-6.5); Neutrophils % (auto) 81.7 %; Reticulocyte % 8.2 % (0.5-2.0); Reticulocytes # 0.17 10^6/uL (0.02-0.10)
[2022-08-04 15:15] LABS: Ferritin 36.7 ng/ml (8-388)
[2022-08-04 15:27] LABS: Albumin Globulin Ratio 1.5 (0.9-2); BUN Creatinine Ratio 38.9 (10-20); Bilirubin,Total 0.3 mg/dl (0.2-1.0); Creatinine Clr Calc Pharmacy 54.3 ml/min; Est GFR (African American) 62.5 ml/min; Est GFR (Non-African American) 53.9 ml/min; Globulin 2.7 gm/dl (2.5-4.0); Magnesium 2.3 mg/dl (1.7-2.4); Phosphorus 3.3 mg/dl (2.5-4.9); Potassium 3.9 mmol/L (3.5-5.1); Total Protein 6.7 gm/dl (6.0-8.3)
--- NOTE | 2022-08-04 15:31 | Electrocardiogram Report ---
Test Reason : Blood Pressure : / mmHG Vent. Rate : 081 BPM Atrial Rate : 081 BPM P-R Int : 238 ms QRS Dur : 128 ms QT Int : 404 ms P-R-T Axes : 043 -37 049 degrees QTc Int : 469 ms Poor data quality, interpretation may be adversely affected Sinus rhythm with 1st degree A-V block Left axis deviation Non-specific intra-ventricular conduction block Abnormal ECG When compared with ECG of 22-JUL-2022 12:24, Minimal criteria for Septal infarct are no longer Present Confirmed by Mj Zimmerman ([id number]) on 08/04/2022 3:30:54 PM Referred By: REFERRED SELF Confirmed By:Mj Zimmerman
--- NOTE | 2022-08-04 15:34 | History & Physical Report ---
Date of Service August 04, 2022 Assessment & Plan (1) Symptomatic anemia: Plan: - H/H 5.7/18.8, MCV 91, MCHC 30, retic % 8.2, retic # 0.17, iron is low at 16, transferrin, ferritin WNL. - LDH, haptoglobin pending. - BUN 50, which is actually near patient's baseline, likely from use of multiple diuretics for HFpEF and less likely indicative of UGIB. - No obvious source for blood loss currently. Patient was admitted for similar presentation 07/22 - 07/25, received 4 u pRBCS and IV Venofer. - Patient is on chronic iron supplementation, with chronic dark stools, however denies pain with BMs or BRBPR. - Not on any blood thinners other than ASA (holding this), no blood in urine, or hemoptysis. - Type and cross + consent achieved in ED, with 2 units pRBCs to be transfused. - Will recheck H/H after transfusion is complete. - NPO @ midnight. - GI consulted for possible colonoscopy while he is admitted. - Will hold off on IVF while he is being transfused as he does have HFpEF and is high risk for decompensation. - He appears euvolemic on exam. - Dry weight 185 lbs. (2) Iron deficiency anemia: Plan: - Has been on iron supplementation for years as he has been chronically anemic - H/H significantly reduced from labs on / and even from 07/31. - Iron 16 (L), transferrin 316, ferritin 36. - Patient received IV Venofer last admission, may benefit from regular IV iron transfusions if LGI bleed is ruled out and it is determined he is a poor PO iron absorber. (3) Chronic diastolic (congestive) heart failure: Plan: - Continue Bumex 4 mg BID, metolazone 2.5 mg daily, and spironolactone 25 mg BID. - Very high risk for decompensation. No further IVF. If patient becomes SOB after blood transfusion, will give additional diuretic. - Dry weight 185 lbs. - Monitor strict I/Os, daily weight, low Na diet when eating and 1.5 L fluid restriction. - Echo from April: EF 55-60%, moderate LVH, dilated right heart and increased PA end diastolic pressures. - Continue statin therapy for underlying CAD. (4) Chronic respiratory failure with hypoxia: Plan: - Severe COPD. - No evidence of acute exacerbation today. - 99% on 5 L NC (baseline requirement). - Continue home inhalers. (5) Allergic rhinitis with postnasal drip: Plan: - Continue azelastine spray. (6) GERD (gastroesophageal reflux disease): Plan: - Continue oral PPI. - Very low suspicion fro UGIB given recent EGD was wnl. Defer on IV PPI. (7) Anxiety: Plan: - Continue Lexapro, BuSpar. Plan - Admit to PCU. - SCDS for VTE ppx. - Full Code. History of Present Illness Chief Complaint: low hemoglobin on routine outpatient labs Primary Care Provider: Angela Schultz MD Richard Lobo is a 77-year-old male with past medical history significant for severe COPD, CAD, HFrEF, iron deficiency anemia, GERD, depression, and anxiety. He is presenting at the referral of his PCP after having outpatient labs drawn that revealed a hemoglobin of 5.7. Patient was actually admitted several weeks ago for an acutely low hemoglobin and was transfused with 4 units. At the time he had an EGD which did not reveal source of his bleeding. He has been on iron supplementation for months, so it was thought that he may be a poor absorber of oral iron, or possibly requires colonoscopy to look for a lower GI bleed source. It was felt that he could do this as an outpatient. Since then he has had CBCs drawn weekly to monitor his H/H, which is why he had labs checked today. Since discharge, patient had an episode of nonbloody diarrhea which lasted several hours, otherwise no GI symptoms. He fell to his knees yesterday while walking but did not pass out or feel like he might, he states his legs just got weak on him. He has not had syncopal or presyncopal episodes, no chest pain, palpitation, shortness of breath at rest. He is slighly more dyspneic ambulating distances he is typically able to do. As he is on iron supplementation, he does have chronically dark stools, but notes no bright red blood. No abdominal pain, nausea, vomiting. His Hgb in our ED is 5.7, was 9.9 on discharge 07/25 and 8.0 on 07/31. MCV 91, MCHC 30, retic % 8.2, retic # 0.17, iron is low at 16, transferrin, ferritin WNL. Upon presentation and throughout his time in the ED, his vital signs have been stable and within normal limits. Aside from the above, labs otherwise largely unrevealing, his bicarb is 40, it has been chronically elevated to this degree on previous admissions. BUN elevated at 50, unchanged, and creatinine is about baseline. UA without microscopic blood. Allergies Allergy/AdvReac Type Severity Reaction Status Date / Time No Known Allergies Allergy Verified 07/30/22 16:07 Home Medications Medication Instructions Recorded Confirmed Type atorvastatin 80 mg tablet 80 mg PO QPM 05/20/20 08/04/22 History magnesium 250 mg tablet 250 mg PO DAILY 05/20/20 08/04/22 History multivitamin (Multiple Vitamins 1 tab PO DAILY 05/21/20 08/04/22 History tablet) docusate sodium 100 mg capsule 100 mg PO BID 06/10/20 08/04/22 History spironolactone 25 mg tablet 25 mg PO BID 30 days #60 tabs 09/30/20 08/04/22 Rx azelastine 137 mcg (0.1 %) nasal 2 spray intranasal DAILY #30 mL 03/10/22 08/04/22 Rx spray aerosol aspirin 81 mg tablet,delayed 81 mg PO QPM 03/19/22 08/04/22 History release (Adult Low Dose Aspirin) albuterol sulfate 90 mcg/actuation 2 puff inhalation Q6H PRN 03/27/22 08/04/22 Rx aerosol inhaler Shortness Of Breath Or Wheezing #18 grams fluticasone fur. 100 mcg-umeclid 1 inh inhalation DAILY #3 Inhalers 03/27/22 08/04/22 Rx 62.5 mcg-vilant 25 mcg inhalat.powder (Trelegy Ellipta) potassium chloride 20 mEq 20 meq PO QAM #0 tabs 04/20/22 08/04/22 Rx tablet,extended release escitalopram oxalate 10 mg tablet 20 mg PO DAILY 05/01/22 08/04/22 History diphenhydramine HCl 25 mg capsule 25 mg PO HS 05/26/22 08/04/22 History (Benadryl) melatonin 3 mg capsule 6 mg PO HS 05/26/22 08/04/22 History bumetanide 2 mg tablet See Rx Instructions PO BID 05/29/22 08/04/22 History buspirone 10 mg tablet 10 mg PO TID PRN Anxiety 07/22/22 08/04/22 History ferrous sulfate 325 mg (65 mg 65 mg PO UD #30 tabs 07/25/22 08/04/22 Rx iron) tablet metolazone 2.5 mg tablet 2.5 mg PO DAILY #90 tabs 07/30/22 08/04/22 Rx calcium carbonate 600 mg calcium 600 mg PO DAILY 08/04/22 08/04/22 History (1,500 mg) tablet (Calcium) pantoprazole 40 mg tablet,delayed 40 mg PO DAILY 08/04/22 08/04/22 History release Past Med/Surg History Medical History (Updated 08/05/22 @ 20:50 by Miguel Brown) Aortic stenosis s/p TAVR 2019 ([facility]) CAD (coronary artery disease) Carotid stenosis, bilateral Chronic cor pulmonale Chronic diastolic (congestive) heart failure Chronic respiratory failure with hypoxia and hypercapnia on home O2 - 5-6 L COPD (chronic obstructive pulmonary disease) Elevated troponin I level GERD (gastroesophageal reflux disease) History of GI bleed Hypertension Iron deficiency anemia Pulmonary hypertension Tobacco use disorder Uremia Surgical History History of left-sided carotid endarterectomy 2014 S/P appendectomy Family History Father Hypertension Mother Hypotension Breast cancer Other No family history of adverse response to anesthesia No family history of bleeding disorder Social History Smoking Status: Never smoker Tobacco Type: Cigarettes packs per day: 1; Second Hand Exposure: No; Hx Alcohol Use: Yes Alcohol type: hard liquor Alcohol Intake Frequency: Monthly or Less Alcohol Intake Frequency Comment: 1 bottle of Manny Dupree a month Hx Substance Use: No Preferred Language: Montserratian Communication Ability: Effective Visual Impairment: No Limitations Wool Merchant Required: No Beliefs That Will Affect Care: None marital status: Current Living Situation: Family Current Living Situation Comment: house current occupational status: retired Other Information That Helps Us Care for You: No Feels Safe at Home: Yes Safety Concerns: Feels Safe At This Time Assistive Devices: Cane, Oxygen - Continuous and Walker Review of Systems Review of Systems: Constitutional: No fever/chills, weakness, fatigue, myalgias, anorexia, night sweats Eyes: No diplopia, no worsening or blurred vision ENT: normal hearing, no trouble swallowing Respiratory: slightly more SOB with shorter distances he typically tolerates; No increased cough, sputum, dyspnea at rest Cardiovascular: No chest pain, tightness or palpitations Abdomen: No pain, nausea, vomiting, diarrhea or constipation : Denies dysuria, hematuria, increased urgency/frequency, urinary retention Musculoskeletal: No joint pain, calf pain, swelling Neurologic: No weakness, numbness/tingling, or balance problems Psychiatric: No anxiety or depression Skin: No rash or itch Physical Exam Physical Exam: General: awake, alert, no apparent distress Head: Normocephalic, atraumatic ENT: PERRL, EOMI, no pharyngeal exudate, mucous membranes moist Chest: Clear to auscultation, no adventitious breath sounds Cardiac: Regular rate and rhythm, no murmur, no JVD, normal peripheral pulses, good capillary refill Abdominal: NABS x 4 quadrants, soft, nontender to palpation, no rebound, guarding or tenderness Extremities: Normal inspection, no peripheral edema or erythema, calfs nontender to palpation Psych: Normal mood and affect Neuro: AAO x 3, strength intact bilaterally and rated 5/5, no motor deficits, speech is clear, no peripheral sensory deficits Skin: no rash or erythema Results & Data Results & Data ([facility]) Vital Signs (Past 12 Hours) Vital Signs Temp Pulse Pulse Resp BP BP Pulse Ox 08/04/22 14:20 82 18 92 08/04/22 14:20 81 18 150/47 H 92 08/04/22 13:58 36.4 C L 91 H 18 133/44 L 97 O2 Del Method O2 Flow Rate 08/04/22 14:20 Nasal Cannula 6 08/04/22 14:20 Nasal Cannula 6 08/04/22 13:58 Room Air Laboratory Results Abnormal lab results 08/04/22 08/04/22 08/04/22 Range/Units 14:14 14:14 14:14 RBC 2.05 L (4.63-6.08) M/uL Hgb 5.7 L* (14.0-18.0) g/dl POC Hgb (14.0-18.0) g/dl Hct 18.8 L* (40.1-51.0) % POC Hct (42-52) % MCHC 30.3 L (32.0-36.0) g/dL RDW Std Deviation 47.9 H (36.4-46.3) fL RDW Coeff of Vesta 14.6 H (11.5-14.5) % Reticulocyte % (Auto) 8.2 H (0.5-2.0) % Neut # (Auto) 7.82 H (1.4-6.5) K/uL Lymph # (Auto) 0.56 L (1.2-3.4) K/uL Slope # (Auto) 0.83 H (0.24-0.82) K/uL Reticulocyte # 0.17 H (0.02-0.10) 10^6/uL Immature Gran # (Auto) 0.06 H (0.00-0.02) K/uL Absolute Nucleated RBC 0.02 H (0-0) K/uL POC Sodium (135-144) mmol/L POC Chloride (101-112) mmol/L Chloride 90 L (98-107) mmol/L Carbon Dioxide 40 H (21-32) mmol/L POC Total CO2 (24-31) mmol/L POC BUN (7-18) mg/dl BUN 49 H (6-23) mg/dl POC Creatinine (0.6-1.3) mg/dl BUN/Creatinine Ratio 38.9 H (10-20) Glucose 184 H (70-99(Fasting)) mg/dl POC Glucose (other) (70-99) mg/dl Iron 16 L (35-175) mcg/dl Crossmatch See Detail 08/04/22 Range/Units 14:26 RBC (4.63-6.08) M/uL Hgb (14.0-18.0) g/dl POC Hgb 7.5 L (14.0-18.0) g/dl Hct (40.1-51.0) % POC Hct 22 L (42-52) % MCHC (32.0-36.0) g/dL RDW Std Deviation (36.4-46.3) fL RDW Coeff of Vesta (11.5-14.5) % Reticulocyte % (Auto) (0.5-2.0) % Neut # (Auto) (1.4-6.5) K/uL Lymph # (Auto) (1.2-3.4) K/uL Slope # (Auto) (0.24-0.82) K/uL Reticulocyte # (0.02-0.10) 10^6/uL Immature Gran # (Auto) (0.00-0.02) K/uL Absolute Nucleated RBC (0-0) K/uL POC Sodium 134 L (135-144) mmol/L POC Chloride 85 L (101-112) mmol/L Chloride (98-107) mmol/L Carbon Dioxide (21-32) mmol/L POC Total CO2 38 H (24-31) mmol/L POC BUN 50 H (7-18) mg/dl BUN (6-23) mg/dl POC Creatinine 1.4 H (0.6-1.3) mg/dl BUN/Creatinine Ratio (10-20) Glucose (70-99(Fasting)) mg/dl POC Glucose (other) 193 H (70-99) mg/dl Iron (35-175) mcg/dl Crossmatch Code Status & VTE Plan Code Status Full Code. Supervising Physician Co-Signing Physician Notes Attending Attestation & Admission Note: Pt seen/examined, chart reviewed, care plan d/w KALINA Burk. I agree w/ the verma components of her documentation. 77yo male with chronic hypoxic/hypercarbic resp failure on home O2, chronic diastolic & right-sided CHF, pulm HTN, COPD, CAD, h/o TAVR - presenting with recurrent, severe, symptomatic anemia. Recent hospital admission for same s/p 4 units PRBCs. Fe studies dating back several years all c/w Fe deficiency anemia. Had EGD during prior admission without source of bleeding. Post-discharge colonoscopy was being planned for additional GI work-up. Presents today with hemoglobin <6. No overt GI bleeding in his stools. Denies abdominal pain. No vomiting. PMH/PSH/allergies/meds/sochx/famhx - reviewed VSS, afebrile, o2 sats wnl gen - NAD skin - pallor neck - JVD present heart - RRR, s1 s2, 2/6 systolic murmur LLSB lungs - mild rales b/l bases, no increased work of breathing abd - soft NT ND BS+ ext - 1+ edema b/l, pulses 2+ b/l labs reviewed EKG - NSR, first degree AV block, ILBBB, no ST changes A/P: 1. acute/chronic anemia - Fe studies c/w iron deficiency 2. presumed GI bleeding - unknown source 3. chronic right-sided CHF/diastolic CHF - weight is higher than previous weights 4. severe COPD 5. chronic hypoxic/hypercarbic resp failure 6. CAD Tx 2 units PRBCs tonight with serial H/H's IV venofer clear liquid diet GI consult for consideration of colonoscopy may need additional diuresis beyond his usual diuretics (bumex, aldactone, metazolone) Miguel Brown MD PG Care Time/CCT Total # of Minutes Spent Total Time Spent with Patient: Total time spent is greater than 50% in coordination of care (as documented) at patient's floor/unit and/or counseling patient: Coding Level of Care Code 65260 Initial Inpt Care Lvl 3 Diagnoses Symptomatic anemia D64.9 Iron deficiency anemia D50.9 Chronic diastolic (congestive) heart failure I50.32 Chronic respiratory failure with hypoxia J96.11 Allergic rhinitis with postnasal drip J30.9; R09.82 GERD (gastroesophageal reflux disease) K21.9 Anxiety F41.9
[2022-08-04] MEDS ORDERED: ONDANSETRON INJ 2 MG/ML 2 ML VIAL IV PRN (17:20)
[2022-08-04] MEDS ORDERED: busPIRone 5 MG TAB PO PRN (17:20)
[2022-08-04] MEDS ORDERED: ACETAMINOPHEN 325 MG TAB PO PRN (17:20)
[2022-08-04] MEDS ORDERED: ALBUTEROL HFA 8 GM INHALER INH PRN (17:20)
[2022-08-04] MEDS: ATORVASTATIN 40 MG TAB PO SCH (20:39)
[2022-08-04] MEDS: DOCUSATE SODIUM 100 MG CAP PO SCH (20:40)
[2022-08-04] MEDS: MELATONIN 3 MG TAB PO SCH (20:41)
[2022-08-04] MEDS: SPIRONOLACTONE 25 MG TAB PO SCH (20:42)
[2022-08-04 20:43] LABS: Hematocrit (blood only) 21.9 % (40.1-51.0); Hemoglobin 6.6 g/dl (14.0-18.0)
[2022-08-04] MEDS ORDERED: diphenhydrAMINE Capsule 25 MG CAP PO PRN (21:00)
[2022-08-05 00:25] LABS: Hematocrit (blood only) 22.8 % (40.1-51.0); Hemoglobin 7.2 g/dl (14.0-18.0)
[2022-08-05 05:53] LABS: Basophils # (auto) 0.05 K/uL (0-0.2); Basophils % (auto) 0.5 %; Eosinophils # (auto) 0.27 K/uL (0-0.50); Eosinophils % (auto) 2.7 %; Hematocrit (blood only) 23.7 % (40.1-51.0); Hemoglobin 7.2 g/dl (14.0-18.0); Immature Granulocytes # (auto) 0.03 K/uL (0.00-0.02); Immature Granulocytes % (auto) 0.3 %; Lymphocytes % (auto) 5.1 %; Mean Corpuscular Hemoglobin 27.4 pg (25.0-34.0); Mean Corpuscular Hgb Conc 30.4 g/dL (32.0-36.0); Mean Corpuscular Volume 90.1 fL (80.0-100.0); Mean Platelet Volume 9.4 fL (9.4-12.4); Monocytes # (auto) 1.04 K/uL (0.24-0.82); Monocytes % (auto) 10.6 %; Neutrophils # (auto) 7.93 K/uL (1.4-6.5); Neutrophils % (auto) 80.8 %; Nucleated RBC # (auto) 0.02 K/uL (0-0); Nucleated RBC % (auto) 0.2 %; Platelet Count 286 K/uL (130-400); RDW Coefficient of Variation 15.7 % (11.5-14.5); RDW Standard Deviation 50.5 fL (36.4-46.3); Red Blood Count 2.63 M/uL (4.63-6.08); White Blood Count 9.82 K/ul (4.8-10.8)
[2022-08-05 06:27] LABS: BUN Creatinine Ratio 36.1 (10-20); Calcium 9.8 mg/dl (8.5-10.1); Creatinine Clr Calc Pharmacy 63.2 ml/min; Est GFR (African American) 75.3 ml/min; Est GFR (Non-African American) 64.9 ml/min; Magnesium 2.3 mg/dl (1.7-2.4); Potassium 4.1 mmol/L (3.5-5.1)
[2022-08-05 06:28] LABS: Hypochromasia Present; Polychromasia 1+
[2022-08-05] MEDS: BUMETANIDE 1 MG TAB PO SCH ×2 (08:40→12:36)
[2022-08-05] MEDS: CALCIUM CARBONATE 1250MG TAB PO SCH (08:40)
[2022-08-05] MEDS: PANTOprazole 40 MG TAB PO SCH (08:40)
[2022-08-05] MEDS: POTASSIUM CHLORIDE CRTAB 20 MEQ TABCR PO SCH (08:40)
[2022-08-05] MEDS: metOLazone 2.5 MG TABLET PO SCH (08:40)
[2022-08-05] MEDS: MAGNESIUM OXIDE 400 MG TAB PO SCH (08:40)
[2022-08-05] MEDS: SPIRONOLACTONE 25 MG TAB PO SCH ×2 (08:40→20:06)
[2022-08-05] MEDS: DOCUSATE SODIUM 100 MG CAP PO SCH ×2 (08:40→20:06)
[2022-08-05] MEDS: ESCITALOPRAM OXALATE 20 MG TAB PO SCH (08:41)
[2022-08-05] MEDS: UMECLIDINIUM/VILANTEROL 62.5/25MCG 7 PUFFS/INHALER INH SCH (08:41)
[2022-08-05] MEDS: FLUTICASONE FUROATE 100MCG 14 PUFFS/INHALER INH SCH (08:41)
[2022-08-05] MEDS ORDERED: AZELASTINE HCL 0.1% NASAL 200 SPRAYS/27,400 MCG BTL NAE PRN (09:00)
[2022-08-05] MEDS ORDERED: SODIUM CHLORIDE 0.9% 250 ML IV PRN (09:41)
--- NOTE | 2022-08-05 10:13 | Gastrointestinal Consultation ---
Date of Consultation August 05, 2022 Assessment & Plan (1) Anemia: Will prep patient for colonoscopy tomorrow, however patient has had a colonoscopy for the same reason within the past 2 years without findings. EGD recently unremarkable. With significant drops in his hemoglobin as quickly as his have been, it is odd that there is not overt GI bleeding if the anemia source is felt to be GI. If colonoscopy is unremarkable, I would advise a video capsule study for small bowel assessment (he was to have this with Dr. Moulton previously). I would also advise a hematology evaluation if colonoscopy is unremarkable. Would advise Protonix 40 mg BID. Monitor H/H. Supervising Physician Co-Signing Physician Notes Agree with KAREN Moran as above Abd: Soft, NT, ND, +BS Continue current therapy and supportive care Colonoscopy on 08/06/2022 History of Present Illness Reason for Consultation: Anemia Attending Physician: Miguel Brown History of Present Illness Mr. Lobo is a 77 yo male with PMH of chronic respiratory failure on home O2 due to severe COPD, CAD, HFrEF, MAC, GERD, depression, & anxiety. He notes that he was sent to the [facility] due to outpatient labs that showed a hemoglobin of 5.7. This is the second admission for anemia within several weeks. Over the past 3 years, the patient has undergone EGD & colonoscopy for this same issue without any abnormalities identified. He reports fatigue & falls due to weakness but denies hematemesis, melena, or hematochezia. His last colonoscopy was in 2019 for the same issue and no bleeding source was found. He had an EGD on 07/24/[address] abdomen/pelvis during the last admission was unremarkable. GI has been asked for a colonoscopy again. He is on Protonix 40 mg daily at home. On 07/31/22 his hemoglobin was 8. BUN chronically elevated and currently at baseline. He takes Aspirin daily. Allergies Allergy/AdvReac Type Severity Reaction Status Date / Time No Known Allergies Allergy Verified 07/30/22 16:07 Home Medications Medication Instructions Recorded Confirmed Type atorvastatin 80 mg tablet 80 mg PO QPM 05/20/20 08/04/22 History magnesium 250 mg tablet 250 mg PO DAILY 05/20/20 08/04/22 History multivitamin (Multiple Vitamins 1 tab PO DAILY 05/21/20 08/04/22 History tablet) docusate sodium 100 mg capsule 100 mg PO BID 06/10/20 08/04/22 History spironolactone 25 mg tablet 25 mg PO BID 30 days #60 tabs 09/30/20 08/04/22 Rx azelastine 137 mcg (0.1 %) nasal 2 spray intranasal DAILY #30 mL 03/10/22 Rx spray aerosol aspirin 81 mg tablet,delayed 81 mg PO QPM 03/19/22 08/04/22 History release (Adult Low Dose Aspirin) albuterol sulfate 90 mcg/actuation 2 puff inhalation Q6H PRN 03/27/22 08/04/22 Rx aerosol inhaler Shortness Of Breath Or Wheezing #18 grams fluticasone fur. 100 mcg-umeclid 1 inh inhalation DAILY #3 Inhalers 03/27/22 08/04/22 Rx 62.5 mcg-vilant 25 mcg inhalat.powder (Trelegy Ellipta) potassium chloride 20 mEq 20 meq PO QAM #0 tabs 04/20/22 08/04/22 Rx tablet,extended release escitalopram oxalate 10 mg tablet 20 mg PO DAILY 05/01/22 08/04/22 History diphenhydramine HCl 25 mg capsule 25 mg PO HS 05/26/22 08/04/22 History (Benadryl) melatonin 3 mg capsule 6 mg PO HS 05/26/22 08/04/22 History bumetanide 2 mg tablet See Rx Instructions PO BID 05/29/22 08/04/22 History buspirone 10 mg tablet 10 mg PO TID PRN Anxiety 07/22/22 08/04/22 History ferrous sulfate 325 mg (65 mg 65 mg PO UD #30 tabs 07/25/22 08/04/22 Rx iron) tablet metolazone 2.5 mg tablet 2.5 mg PO DAILY #90 tabs 07/30/22 08/04/22 Rx calcium carbonate 600 mg calcium 600 mg PO DAILY 08/04/22 08/04/22 History (1,500 mg) tablet (Calcium) pantoprazole 40 mg tablet,delayed 40 mg PO DAILY 08/04/22 08/04/22 History release Patient History Medical History Acute GI bleeding Acute hyperglycemia Anemia Anemia Anemia Aortic stenosis severe asymptomatic Elevated troponin I level GERD (gastroesophageal reflux disease) History of GI bleed Hypertension Hypertension Hypoxia Hypoxia Metabolic alkalosis with respiratory acidosis SOB (shortness of breath) Tobacco use disorder Uremia Surgical History History of left-sided carotid endarterectomy 2014 S/P appendectomy Family History Father Hypertension Mother Hypotension Breast cancer Other No family history of adverse response to anesthesia No family history of bleeding disorder Social History Smoking Status: Never smoker Tobacco Type: Cigarettes packs per day: 1; Second Hand Exposure: No; Hx Alcohol Use: Yes Alcohol type: hard liquor Alcohol Intake Frequency: Monthly or Less Alcohol Intake Frequency Comment: 1 bottle of Manny Dupree a month Hx Substance Use: No Preferred Language: Uzbek Communication Ability: Effective Visual Impairment: No Limitations Bacteriologist Pharmaceutical Required: No Beliefs That Will Affect Care: None marital status: Current Living Situation: Family Current Living Situation Comment: house current occupational status: retired Other Information That Helps Us Care for You: No Feels Safe at Home: Yes Safety Concerns: Feels Safe At This Time Assistive Devices: Cane, Oxygen - Continuous and Walker Review of Systems Constitutional: no fever and no chills Respiratory: no cough and no dyspnea Cardiovascular: no chest pain Gastrointestinal: no abdominal pain, no hematemesis, no blood in stools and no melena Integumentary: no problem reported Psychiatric: no problem reported Physical Exam Constitutional: well developed Respiratory: no respiratory distress and no labored breathing Cardiovascular: Rate/Rhythm: regular rate Gastrointestinal (Abdomen): Inspection/Auscultation: abdomen normal to inspection Musculoskeletal: Head/Neck/Chest: normocephalic Psychiatric: Orientation: alert and oriented x 3 Results & Data ([facility]) Vital Signs (Past 12 Hours) Vital Signs Temp Pulse Pulse Resp BP BP Pulse Ox 08/05/22 09:01 69 08/05/22 06:53 37 C 75 18 125/57 L 97 08/05/22 03:19 36.6 C 86 16 165/53 H 92 08/05/22 01:14 81 08/05/22 01:14 08/04/22 22:49 37 C 69 14 123/64 99 08/04/22 22:22 36.6 C 71 14 144/67 H 100 O2 Del Method O2 Flow Rate 08/05/22 09:01 08/05/22 06:53 08/05/22 03:19 Nasal Cannula 5 08/05/22 01:14 08/05/22 01:14 Nasal Cannula 5 08/04/22 22:49 5 08/04/22 22:22 5 PG Care Time/CCT Total # of Minutes Spent Total Time Spent with Patient: Total time spent is greater than 50% in coordination of care (as documented) at patient's floor/unit and/or counseling patient: Coding Level of Care Code 30152 Initial Inpt Care Lvl 3 Diagnoses Anemia D64.9
[2022-08-05] MEDS ORDERED: bisacodyL 5 MG TABEC PO ONE (15:23)
[2022-08-05] MEDS ORDERED: POLYETHYLENE (MIRALAX) 17 GM PACK PO ONE (18:00)
[2022-08-05] MEDS ORDERED: POLYETHYLENE (MIRALAX) 17 GM PACK PO SCH (18:00)
[2022-08-05] MEDS ORDERED: BUMETANIDE 1 MG in SYRINGE 0 ML IV ONE (18:00)
[2022-08-05] MEDS: MELATONIN 3 MG TAB PO SCH (20:06)
[2022-08-05] MEDS: ATORVASTATIN 40 MG TAB PO SCH (20:06)
--- NOTE | 2022-08-05 21:00 | Hospitalist Progress Note ---
Date of Service August 05, 2022 Assessment & Plan (1) Symptomatic anemia: Plan: presumed GI bleeding no signs of hemolysis based on normal LDH, normal t.bili; haptoglobin pending but suspect it will be wnl recent EGD during previous hospital stay completely normal slated for colonoscopy tomorrow prepping today; clear liquids today then NPO at MD due to severe cardiopulmonary disease Tx 1 additional unit of PRBCs today followed by an additional dose of bumex repeat cbc, bmp am appreciate GI assistance (2) Acute blood loss anemia: Plan: Recurrent. Presumed GI in etiology. see above. (3) Iron deficiency anemia: Plan: all ferritin levels going back several years have been low presumed 2nd to GI blood loss plan IV venofer tomorrow; has had such in past Tx 1 additional unit of PRBCs today colonoscopy in am (4) Chronic diastolic (congestive) heart failure: Plan: Compensated or mildly volume up. Continue Bumex 4 mg BID, metolazone 2.5 mg daily, and spironolactone 25 mg BID. Echo from April: EF 55-60%, moderate LVH, dilated right heart and increased PA end diastolic pressures. Give an additional dose of bumex after PRBCs finish today. (5) Chronic respiratory failure with hypoxia: Plan: 2nd Severe COPD and pulmonary HTN. No evidence of exacerbation. Remains stable on 5 L NC (baseline requirement). (6) Allergic rhinitis with postnasal drip: Plan: Continue azelastine spray. (7) GERD (gastroesophageal reflux disease): Plan: Continue oral PPI. (8) Anxiety: Plan: Continue Lexapro, BuSpar. (9) Pulmonary hypertension: (10) Chronic cor pulmonale: (11) COPD (chronic obstructive pulmonary disease): (12) CAD (coronary artery disease): Plan SCDs for DVT proph left message for pt's on her voicemail 9/ pm Admission and Anticipated Discharge Date Admission Date: August 04, 2022 Subjective patient had a BM just prior to my arrival and did not note any overt blood he denies abd pain he is frustrated by "not knowing what's causing the bleeding" tolerating clears did have episode of desaturation to the 60s with walking to the bathroom he does see o2 sats in the 70s/80s pretty commonly at home breathing is near baseline, however tele overnight wnl Review of Systems Review of Systems: gen - no fevers cv - no chest pain pulm - HOOVER - baseline GI - no vomiting or pain Physical Exam Physical Exam: gen - NAD skin - pallor neck - JVD present - unchanged heart - RRR, s1 s2, 2/6 systolic murmur LLSB lungs - minimal rales b/l bases, no increased work of breathing abd - soft NT ND BS+ ext - <1+ edema b/l, pulses 2+ b/l Results & Data Results & Data ([facility]) Vital Signs (Past 12 Hours) Vital Signs Temp Pulse Pulse Resp BP BP Pulse Ox 08/05/22 20:50 08/05/22 19:10 36.9 C 75 18 127/64 08/05/22 16:38 78 08/05/22 15:15 36.7 C 75 18 138/54 L 96 08/05/22 11:33 82 14 137/53 L 95 08/05/22 11:19 08/05/22 11:03 76 14 160/62 H 93 08/05/22 10:48 36.4 C L 73 16 147/67 H 96 08/05/22 10:24 36.5 C 88 20 147/61 H 91 08/05/22 09:01 69 O2 Del Method O2 Flow Rate 08/05/22 20:50 Nasal Cannula 6 08/05/22 19:10 08/05/22 16:38 08/05/22 15:15 Nasal Cannula 6 08/05/22 11:33 08/05/22 11:19 Nasal Cannula 6 08/05/22 11:03 08/05/22 10:48 6 08/05/22 10:24 6 08/05/22 09:01 Laboratory Results Laboratory Results - last 24 hr 08/04/22 08/04/22 08/05/22 14:14 23:40 05:36 WBC 9.82 RBC 2.63 L Hgb 7.2 L 7.2 L Hct 22.8 L 23.7 L MCV 90.1 MCH 27.4 MCHC 30.4 L RDW Std Deviation 50.5 H RDW Coeff of Vesta 15.7 H Plt Count 286 MPV 9.4 Immature Gran % (Auto) 0.3 Neut % (Auto) 80.8 Lymph % (Auto) 5.1 [place] % (Auto) 10.6 Eos % (Auto) 2.7 Baso % (Auto) 0.5 Neut # (Auto) 7.93 H Lymph # (Auto) 0.50 L [place] # (Auto) 1.04 H Eos # (Auto) 0.27 Baso # (Auto) 0.05 Immature Gran # (Auto) 0.03 H Absolute Nucleated RBC 0.02 H Nucleated RBC % (auto) 0.2 Polychromasia 1+ Hypochromasia Present Sodium Potassium Chloride Carbon Dioxide Anion Gap BUN Creatinine Est Cr Clr Drug Dosing Est GFR ( Amer) Est GFR (Non-Af Amer) BUN/Creatinine Ratio Glucose Calcium Magnesium Blood Type O Positive Antibody Screen NEGATIVE Crossmatch See Detail 08/05/22 05:36 WBC RBC Hgb Hct MCV MCH MCHC RDW Std Deviation RDW Coeff of Vesta Plt Count MPV Immature Gran % (Auto) Neut % (Auto) Lymph % (Auto) [place] % (Auto) Eos % (Auto) Baso % (Auto) Neut # (Auto) Lymph # (Auto) [place] # (Auto) Eos # (Auto) Baso # (Auto) Immature Gran # (Auto) Absolute Nucleated RBC Nucleated RBC % (auto) Polychromasia Hypochromasia Sodium 137 Potassium 4.1 Chloride 93 L Carbon Dioxide 41 H* Anion Gap 3 BUN 39 H Creatinine 1.08 Est Cr Clr Drug Dosing 63.2 Est GFR ( Amer) 75.3 Est GFR (Non-Af Amer) 64.9 BUN/Creatinine Ratio 36.1 H Glucose 127 H Calcium 9.8 Magnesium 2.3 Blood Type Antibody Screen Crossmatch PG Care Time/CCT Total # of Minutes Spent Total Time Spent with Patient: Total time spent is greater than 50% in coordination of care (as documented) at patient's floor/unit and/or counseling patient: Coding Level of Care Code 82038 Subseq Hosp Care Lvl 3 Diagnoses Symptomatic anemia D64.9 Acute blood loss anemia D62 Iron deficiency anemia D50.9 Chronic diastolic (congestive) heart failure I50.32 Chronic respiratory failure with hypoxia J96.11 Allergic rhinitis with postnasal drip J30.9; R09.82 GERD (gastroesophageal reflux disease) K21.9 Anxiety F41.9 Pulmonary hypertension I27.20 Chronic cor pulmonale I27.81 COPD (chronic obstructive pulmonary disease) J44.1 COPD type: COPD with acute exacerbation CAD (coronary artery disease) I25.10 (1) COPD (chronic obstructive pulmonary disease) COPD type: COPD with acute exacerbation Qualified Code(s): J44.1 - Chronic obstructive pulmonary disease with (acute) exacerbation
[2022-08-06] MEDS ORDERED: POLYETHYLENE (MIRALAX) 17 GM PACK PO SCH (03:00)
[2022-08-06] MEDS ORDERED: POLYETHYLENE (MIRALAX) 17 GM PACK PO ONE ×2 (03:00)
[2022-08-06 06:10] LABS: Hematocrit (blood only) 26.6 % (40.1-51.0); Hemoglobin 8.4 g/dl (14.0-18.0); Mean Corpuscular Hgb Conc 31.6 g/dL (32.0-36.0); Mean Corpuscular Volume 88.7 fL (80.0-100.0); Mean Platelet Volume 9.6 fL (9.4-12.4); Platelet Count 302 K/uL (130-400); RDW Coefficient of Variation 14.7 % (11.5-14.5); RDW Standard Deviation 47.4 fL (36.4-46.3); White Blood Count 7.54 K/ul (4.8-10.8)
[2022-08-06 07:07] LABS: Calcium 9.9 mg/dl (8.5-10.1); Creatinine Clr Calc Pharmacy 71.4 ml/min; Est GFR (Non-African American) 76.8 ml/min; Magnesium 2.2 mg/dl (1.7-2.4); Potassium 3.5 mmol/L (3.5-5.1)
[2022-08-06] MEDS: SPIRONOLACTONE 25 MG TAB PO SCH ×2 (08:49→21:25)
[2022-08-06] MEDS: metOLazone 2.5 MG TABLET PO SCH (08:49)
[2022-08-06] MEDS: MAGNESIUM OXIDE 400 MG TAB PO SCH (08:50)
[2022-08-06] MEDS: PANTOprazole 40 MG TAB PO SCH (08:50)
[2022-08-06] MEDS: CALCIUM CARBONATE 1250MG TAB PO SCH (08:50)
[2022-08-06] MEDS: ESCITALOPRAM OXALATE 20 MG TAB PO SCH (08:50)
[2022-08-06] MEDS: POTASSIUM CHLORIDE CRTAB 20 MEQ TABCR PO SCH (08:51)
[2022-08-06] MEDS: UMECLIDINIUM/VILANTEROL 62.5/25MCG 7 PUFFS/INHALER INH SCH (08:51)
[2022-08-06] MEDS: FLUTICASONE FUROATE 100MCG 14 PUFFS/INHALER INH SCH (08:51)
[2022-08-06] MEDS: BUMETANIDE 1 MG TAB PO SCH ×2 (08:51→12:13)
[2022-08-06] MEDS: DOCUSATE SODIUM 100 MG CAP PO SCH ×2 (08:51→21:25)
[2022-08-06] MEDS ORDERED: FERROUS SULFATE 325 MG TAB PO SCH (09:00)
--- NOTE | 2022-08-06 10:06 | History & Physical Bridge Note ---
Date of Service August 06, 2022 History & Physical Bridge Note I have examined the patient, reviewed the History & Physical and in the interval since the performance of the History & Physical I have noted the following changes of clinical significance: no changes noted. Patient has completed his bowel preparation. There was no GI bleednig during his prep. Proceed with colonoscopy today. If negative, would plan for VCE & hematology evaluation. Supervising Physician Co-Signing Physician Notes Agree with KAREN Moran as above Abd: Soft, NT, ND, +BS Due to worsening anemia, recommend Colonoscopy today
[2022-08-06] MEDS ORDERED: IRON SUCROSE 300 MG in SODIUM CHLORIDE 0.9% 250 ML IV ONE (12:00)
--- NOTE | 2022-08-06 15:06 | Anesthesiology Consultation ---
Date of Service August 06, 2022 Assessment & Plan ASA ASA4 Proposed Anesthesia Anesthesia Type: MAC Risk / Benefits Reviewed With: PT / POA / Parent / Guardian, Accepts Plan and Informed Consent Obtained History Surgery Operation Date: 08/06/22 16:00 Proposed Procedures p Colonoscopy Dr. Reece Newell, DO Height/Weight Height: 5 ft 10 in Weight: 88.6 kg Allergies Allergy/AdvReac Type Severity Reaction Status Date / Time No Known Allergies Allergy Verified 08/06/22 15:03 Medications Home Medications Medication Instructions Recorded Confirmed Last Taken atorvastatin 80 mg tablet 80 mg PO QPM 05/20/20 08/04/22 07/21/22 magnesium 250 mg tablet 250 mg PO DAILY 05/20/20 08/04/22 07/21/22 multivitamin (Multiple Vitamins 1 tab PO DAILY 05/21/20 08/04/22 07/22/22 tablet) docusate sodium 100 mg capsule 100 mg PO BID 06/10/20 08/04/22 07/21/22 spironolactone 25 mg tablet 25 mg PO BID 30 days #60 tabs 09/30/20 08/04/22 07/22/22 azelastine 137 mcg (0.1 %) nasal 2 spray intranasal DAILY #30 mL 03/10/22 08/04/22 07/22/22 spray aerosol aspirin 81 mg tablet,delayed 81 mg PO QPM 03/19/22 08/06/22 08/03/22 release (Adult Low Dose Aspirin) albuterol sulfate 90 mcg/actuation 2 puff inhalation Q6H PRN 03/27/22 08/04/22 05/19/22 aerosol inhaler Shortness Of Breath Or Wheezing #18 grams fluticasone fur. 100 mcg-umeclid 1 inh inhalation DAILY #3 Inhalers 03/27/2207/21/22 62.5 mcg-vilant 25 mcg inhalat.powder (Trelegy Ellipta) potassium chloride 20 mEq 20 meq PO QAM #0 tabs 04/20/22 08/04/22 07/22/22 tablet,extended release escitalopram oxalate 10 mg tablet 20 mg PO DAILY 05/01/22 08/04/22 07/21/22 diphenhydramine HCl 25 mg capsule 25 mg PO HS 05/26/22 08/04/22 07/21/22 (Benadryl) melatonin 3 mg capsule 6 mg PO HS 05/26/22 08/04/22 07/21/22 bumetanide 2 mg tablet See Rx Instructions PO BID 05/29/22 08/04/22 07/22/22 buspirone 10 mg tablet 10 mg PO TID PRN Anxiety 07/22/22 08/04/22 07/21/22 ferrous sulfate 325 mg (65 mg 65 mg PO UD #30 tabs 07/25/22 08/04/22 07/22/22 iron) tablet metolazone 2.5 mg tablet 2.5 mg PO DAILY #90 tabs 07/30/22 08/04/22 Unknown calcium carbonate 600 mg calcium 600 mg PO DAILY 08/04/22 08/04/22 Unknown (1,500 mg) tablet (Calcium) pantoprazole 40 mg tablet,delayed 40 mg PO DAILY 08/04/22 08/04/22 Unknown release Active Medications Generic Name Dose Route Start Last Admin Trade Name Shaista PRN Reason Stop Dose Admin Atorvastatin Calcium 80 mg 08/04/22 21:00 08/05/22 20:06 Atorvastatin 40 Mg Tab PO 09/03/22 20:59 80 mg QPM MARZENA Administration Bumetanide 4 mg 08/05/22 09:00 08/06/22 12:13 Bumetanide 1 Mg Tab PO 09/04/22 08:59 4 mg BID@0900,1200 MARZENA Administration Calcium Carbonate 1,250 mg 08/05/22 09:00 08/06/22 08:50 Calcium Carbonate 1250mg Tab PO 09/04/22 08:59 1,250 mg DAILY MARZENA Administration Docusate Sodium 100 mg 08/04/22 21:00 08/06/22 08:51 Docusate Sodium 100 Mg Cap PO 09/03/22 20:59 Not Given BID MARZENA Escitalopram Oxalate 20 mg 08/05/22 09:00 08/06/22 08:50 Escitalopram Oxalate 20 Mg Tab PO 09/04/22 08:59 20 mg DAILY MARZENA Administration Ferrous Sulfate 325 mg 08/06/22 09:00 08/06/22 08:51 Ferrous Sulfate 325 Mg Tab PO 09/05/22 08:59 325 mg Q2D@0900 MARZENA Administration Fluticasone Furoate 1 puffs 08/05/22 09:00 08/06/22 08:51 Fluticasone Furoate 100mcg 14 Puffs/Inhaler INH 09/04/22 08:59 1 puffs DAILY MARZENA Administration Magnesium Oxide 200 mg 08/05/22 09:00 08/06/22 08:50 Magnesium Oxide 400 Mg Tab PO 09/04/22 08:59 200 mg DAILY MARZENA Administration Melatonin 6 mg 08/04/22 21:00 08/05/22 20:06 Melatonin 3 Mg Tab PO 09/03/22 20:59 6 mg HS MARZENA Administration Metolazone 2.5 mg 08/05/22 09:00 08/06/22 08:49 Metolazone 2.5 Mg Tablet PO 09/04/22 08:59 2.5 mg DAILY MARZENA Administration Pantoprazole Sodium 40 mg 08/05/22 09:00 08/06/22 08:50 Pantoprazole 40 Mg Tab PO 09/04/22 08:59 40 mg DAILY MARZENA Administration Potassium Chloride 20 meq 08/05/22 09:00 08/06/22 08:51 Potassium Chloride Crtab 20 Meq Tabcr PO 09/04/22 08:59 20 meq QAM MARZENA Administration Spironolactone 25 mg 08/04/22 21:00 08/06/22 08:49 Spironolactone 25 Mg Tab PO 09/03/22 20:59 25 mg BID MARZENA Administration Umeclidinium/Vilanterol 1 puffs 08/05/22 09:00 08/06/22 08:51 Umeclidinium/Vilanterol 62.5/25mcg 7 Puffs/Inhaler INH 09/04/22 08:59 1 puffs DAILY MARZENA Administration Past Medical History Medical History (Updated 08/06/22 @ 11:40 by Miguel Brown) Aortic stenosis s/p TAVR 2020 ([facility]) CAD (coronary artery disease) Carotid stenosis, bilateral Chronic cor pulmonale Chronic diastolic (congestive) heart failure Chronic respiratory failure with hypoxia and hypercapnia on home O2 - 5-6 L COPD (chronic obstructive pulmonary disease) Elevated troponin I level GERD (gastroesophageal reflux disease) History of GI bleed Hypertension Iron deficiency anemia Pulmonary hypertension Tobacco use disorder Uremia Exercise / Class Metabolic Activity II 4-5 Yardwork/Stairs/Walk up hill Past Family History Family History Father Hypertension Mother Hypotension Breast cancer Other No family history of adverse response to anesthesia No family history of bleeding disorder Past Surgical History Surgical History History of left-sided carotid endarterectomy 2014 S/P appendectomy Past Anesthesia History No Hx of Anesthesia Complications and No Family Hx of Anesthesia Complications History of PONV No Hx of PONV and No Hx of Motion Sickness Social History Smoking Status: Never smoker tobacco type: cigarettes Hx Alcohol Use: Yes Alcohol type: hard liquor alcohol intake frequency: a few times a week Alcohol Intake Frequency Comment: 2 drinks/week of Manny Dupree on rocks Hx Substance Use: No substance use type: does not use Review of Systems denies fever/cough/ colds/ chest pain/ SOB/ ABDIEL denies ABDIEL Physical Exam Vital Signs Last Vital Signs Temp 36.5 C 08/06/22 11:57 Pulse 79 08/06/22 11:57 Resp 18 08/06/22 11:57 BP 107/50 L 08/06/22 11:57 Pulse Ox 99 08/06/22 11:57 O2 Del Method 08/06/22 11:57 O2 Flow Rate 6 08/06/22 11:57 ENMT Mouth: + dentures; no TMJ abnormality and no dentition abnormality Thyromental Distance: > or= 3.5 Finger Breadths Mallampati Class: II Neck neck extension not limited Respiratory normal respiratory effort; no respiratory distress Auscultation: lungs clear to auscultation bilaterally Cardiovascular Rate/Rhythm: regular rate and regular rhythm Neurologic moves all extremities Psychiatric Orientation: alert and oriented x 3 Testing Laboratory Results 08/06/22 05:54 08/06/22 05:54 PT 10.8 Seconds (9.0-12.0) 08/04/22 14:14 INR 1.0 (0.9-1.1) 08/04/22 14:14 Urine Color Yellow 08/04/22 14:06 Urine Appearance Clear (Clear) 08/04/22 14:06 Urine pH 7.0 (4.5-7.5) 08/04/22 14:06 Ur Specific [place] 1.007 (1.000-1.030) 08/04/22 14:06 Urine Protein Negative (Negative) 08/04/22 14:06 Urine Glucose (UA) Negative (Negative) 08/04/22 14:06 Urine Ketones Negative (Negative) 08/04/22 14:06 Urine Nitrite Negative (Negative) 08/04/22 14:06 Ur Leukocyte Esterase Negative (Negative) 08/04/22 14:06 Blood Type O Positive 08/04/22 14:14 Antibody Screen NEGATIVE 08/04/22 14:14 Echocardiogram Date: 05/19/22 EF: 55-60 LV Function: dysfunctional
[2022-08-06] MEDS ORDERED: LIDOCAINE 2% MPF LOCAL 5 ML VIAL INFIL ONE (16:14)
[2022-08-06] MEDS ORDERED: PROPOFOL IV EMULSION 10 MG/ML 20 ML VIAL IV ONE (16:14)
--- NOTE | 2022-08-06 16:20 | GI REPORT ---
Patient Name: Richard Lobo Procedure Date: 08/06/2022 3:53 PM Date of : 1945 Admit Type: Inpatient Age: 77 Gender: Male Attending MD: Gibson Newell DO Procedure: Colonoscopy Providers: Gibson Newell DO Referring MD: Miguel Brown Indications: Iron deficiency anemia Medicines: Monitored Anesthesia Care Complications: No immediate complications. Estimated Blood Loss: Estimated blood loss: none. Procedure: Pre-Anesthesia Assessment: - Prior to the procedure, a History and Physical was performed, and patient medications and allergies were reviewed. The patient's tolerance of previous anesthesia was also reviewed. The risks and benefits of the procedure and the sedation options and risks were discussed with the patient. All questions were answered, and informed consent was obtained. Prior Anticoagulants: The patient has taken no previous anticoagulant or antiplatelet agents. ASA Grade Assessment: IV - A patient with severe systemic disease that is a constant threat to life. After reviewing the risks and benefits, the patient was deemed in satisfactory condition to undergo the procedure. After I obtained informed consent, the scope was passed under direct vision. Throughout the procedure, the patient's blood pressure, pulse, and oxygen saturations were monitored continuously. The scope was introduced through the anus and advanced to the terminal ileum. The colonoscopy was performed without difficulty. The patient tolerated the procedure well. The quality of the bowel preparation was good. The terminal ileum, ileocecal valve, appendiceal orifice, and rectum were photographed. Findings: The perianal and digital rectal examinations were normal. Multiple small-mouthed diverticula were found in the sigmoid colon. Non-bleeding internal hemorrhoids were found during retroflexion. The hemorrhoids were small. Impression: - Diverticulosis in the sigmoid colon. - Non-bleeding internal hemorrhoids. - There is no evidence of active or recent bleeding. - No specimens collected. Recommendation: - Return patient to [facility] for ongoing care. - Advance diet as tolerated. - Continue present medications. Gibson Newell DO 08/06/2022 4:20:47 PM This report has been signed electronically. Note Initiated On: 08/06/2022 3:53 PM Number of Addenda: 0 I attest to the content of the Intraoperative Record and orders documented therein, exceptions below {[id number]}
--- NOTE | 2022-08-06 16:30 | Anesthesiology Progress Note ---
Date of Service August 06, 2022 Anesthesia Post Procedure Vital Signs Vital Signs: Temp Pulse Pulse Resp BP Pulse Ox O2 Del Method 08/06/22 16:20 70 16 101/42 L 98 Oxymask 08/06/22 15:56 70 08/06/22 15:05 36.4 C L 82 20 148/56 H 100 Nasal Cannula 08/06/22 11:57 36.5 C 79 18 107/50 L 99 Nasal Cannula 08/06/22 08:00 Nasal Cannula 08/06/22 07:47 66 08/06/22 07:06 36.6 C 69 18 124/53 L 98 Nasal Cannula 08/06/22 03:00 36.7 C 71 20 128/68 99 08/06/22 03:56 87 08/05/22 23:17 36.9 C 81 18 105/56 L 98 08/05/22 20:50 Nasal Cannula 08/05/22 19:10 36.9 C 75 18 127/64 08/05/22 16:38 78 O2 Flow Rate FiO2 08/06/22 16:20 4 08/06/22 15:56 08/06/22 15:05 08/06/22 11:57 6 08/06/22 08:00 5 08/06/22 07:47 08/06/22 07:06 6 08/06/22 03:00 08/06/22 03:56 08/05/22 23:17 08/05/22 20:50 6 08/05/22 19:10 08/05/22 16:38 Transfer of Care Handoff Completed per policy Notes Mental Status: alert / awake / arousable and participated in evaluation Patient Amnestic to Procedure: Yes Nausea / Vomiting: adequately controlled Pain: adequately controlled Airway Patency, RR, SpO2: stable & adequate BP & HR: stable & adequate Hydration State: stable & adequate Anesthetic Complications: no major complications apparent and Pt Satisfied with anesthetic care
[2022-08-06] MEDS: MELATONIN 3 MG TAB PO SCH (21:24)
[2022-08-06] MEDS: ATORVASTATIN 40 MG TAB PO SCH (21:25)
--- NOTE | 2022-08-06 22:23 | Hospitalist Progress Note ---
Date of Service August 06, 2022 Assessment & Plan (1) Symptomatic anemia: Plan: presumed occult GI bleeding no signs of hemolysis based on normal LDH, normal t.bili; haptoglobin returned high (not low as would be expected w/ hemolysis) recent EGD during previous hospital stay completely normal during early July stay had 3 units of PRBCs and several doses of IV venofer s/p colonoscopy today -- no source of bleeding seen 3 units of PRBCs this admission 300mg x 1 of IV venofer today will give another 300mg tomorrow would benefit from following with heme/onc - will consult them tomorrow (2) Acute blood loss anemia: Plan: Recurrent. Presumed GI in etiology. see above. (3) Iron deficiency anemia: Plan: all ferritin levels going back several years have been low presumed 2nd to GI blood loss s/p 3 units of PRBCs this admission IV venofer today, and repeat tomorrow (4) Chronic diastolic (congestive) heart failure: Plan: Compensated today. Continue Bumex 4 mg BID, metolazone 2.5 mg daily, and spironolactone 25 mg BID. Echo from April: EF 55-60%, moderate LVH, dilated right heart and increased PA end diastolic pressures. (5) Chronic respiratory failure with hypoxia: Plan: 2nd Severe COPD and pulmonary HTN. No evidence of exacerbation. Remains stable on 5 L NC (baseline requirement). (6) Allergic rhinitis with postnasal drip: Plan: Continue azelastine spray. (7) GERD (gastroesophageal reflux disease): Plan: Continue oral PPI. (8) Anxiety: Plan: Continue Lexapro, BuSpar. (9) Pulmonary hypertension: Plan: NC O2 (10) Chronic cor pulmonale: Plan: compensated (11) COPD (chronic obstructive pulmonary disease): Plan: stable o2 requirement no flare (12) CAD (coronary artery disease): Plan: no ischemic symptoms keep Hb>8 given severe cardiopulmonary disease Plan SCDs for DVT proph left message for pt's on her voicemail 08/05 and today anticipate d/c home tomorrow if H/H remain stable Admission and Anticipated Discharge Date Admission Date: August 04, 2022 Subjective saw patient before his colonoscopy he completed the prep - last few stools were clear no overt blood no melena no abd pain he denies dizziness feels good HOOVER is at baseline Review of Systems Review of Systems: cv - no chest pain pulm - HOOVER unchanged; no cough GI - no nausea/emesis Physical Exam Physical Exam: gen - NAD skin - pallor but improved neck - JVD present - unchanged heart - RRR, s1 s2, 2/6 systolic murmur LLSB lungs - minimal rales b/l bases, no increased work of breathing abd - soft NT ND BS+ ext - no edema b/l, pulses 2+ b/l psych - a/o x 3 Results & Data Results & Data ([facility]) Vital Signs (Past 12 Hours) Vital Signs Temp Pulse Pulse Pulse Resp BP Pulse Ox 08/06/22 20:24 08/06/22 19:14 36.4 C L 80 24 128/46 L 96 08/06/22 17:00 36.9 C 83 18 129/56 L 89 L 08/06/22 16:49 72 20 140/57 L 100 08/06/22 16:35 73 18 127/60 99 08/06/22 16:20 70 16 101/42 L 98 08/06/22 15:56 70 08/06/22 15:05 36.4 C L 82 20 148/56 H 100 08/06/22 11:57 36.5 C 79 18 107/50 L 99 O2 Del Method O2 Flow Rate FiO2 08/06/22 20:24 Nasal Cannula 5 08/06/22 19:14 Nasal Cannula 5 08/06/22 17:00 Room Air 6 08/06/22 16:49 Oxymask 5 08/06/22 16:35 Oxymask 4 08/06/22 16:20 Oxymask 4 08/06/22 15:56 08/06/22 15:05 Nasal Cannula 08/06/22 11:57 Nasal Cannula 6 Laboratory Results Laboratory Results - last 24 hr 08/04/22 08/04/22 08/06/22 14:14 14:14 05:54 WBC 7.54 RBC 3.00 L Hgb 8.4 L Hct 26.6 L MCV 88.7 MCH 28.0 MCHC 31.6 L RDW Std Deviation 47.4 H RDW Coeff of Vesta 14.7 H Plt Count 302 MPV 9.6 Haptoglobin 347 H Sodium Potassium Chloride Carbon Dioxide Anion Gap BUN Creatinine Est Cr Clr Drug Dosing Est GFR ( Amer) Est GFR (Non-Af Amer) BUN/Creatinine Ratio Glucose Calcium Magnesium Crossmatch See Detail 08/06/22 05:54 WBC RBC Hgb Hct MCV MCH MCHC RDW Std Deviation RDW Coeff of [place]esta Plt Count MPV Haptoglobin Sodium 135 L Potassium 3.5 Chloride 89 L Carbon Dioxide 42 H* Anion Gap 4 BUN 31 H Creatinine 0.94 Est Cr Clr Drug Dosing 71.4 Est GFR ( Amer) 89.0 Est GFR (Non-Af Amer) 76.8 BUN/Creatinine Ratio 33.0 H Glucose 119 H Calcium 9.9 Magnesium 2.2 Crossmatch PG Care Time/CCT Total # of Minutes Spent Total Time Spent with Patient: Total time spent is greater than 50% in coordination of care (as documented) at patient's floor/unit and/or counseling patient: Coding Level of Care Code 68324 Subseq Hosp Care Lvl 2 Diagnoses Symptomatic anemia D64.9 Acute blood loss anemia D62 Iron deficiency anemia D50.9 Chronic diastolic (congestive) heart failure I50.32 Chronic respiratory failure with hypoxia J96.11 Allergic rhinitis with postnasal drip J30.9; R09.82 GERD (gastroesophageal reflux disease) K21.9 Anxiety F41.9 Pulmonary hypertension I27.20 Chronic cor pulmonale I27.81 COPD (chronic obstructive pulmonary disease) J44.1 COPD type: COPD with acute exacerbation CAD (coronary artery disease) I25.10 (1) COPD (chronic obstructive pulmonary disease) COPD type: COPD with acute exacerbation Qualified Code(s): J44.1 - Chronic obstructive pulmonary disease with (acute) exacerbation
[2022-08-07 07:31] LABS: Hematocrit (blood only) 26.5 % (40.1-51.0); Hemoglobin 8.3 g/dl (14.0-18.0); Mean Corpuscular Hemoglobin 28.1 pg (25.0-34.0); Mean Corpuscular Hgb Conc 31.3 g/dL (32.0-36.0); Mean Corpuscular Volume 89.8 fL (80.0-100.0); Mean Platelet Volume 9.9 fL (9.4-12.4); Platelet Count 344 K/uL (130-400); RDW Coefficient of Variation 14.5 % (11.5-14.5); RDW Standard Deviation 46.8 fL (36.4-46.3); Red Blood Count 2.95 M/uL (4.63-6.08); White Blood Count 6.44 K/ul (4.8-10.8)
[2022-08-07] MEDS: UMECLIDINIUM/VILANTEROL 62.5/25MCG 7 PUFFS/INHALER INH SCH (07:58)
[2022-08-07] MEDS: FLUTICASONE FUROATE 100MCG 14 PUFFS/INHALER INH SCH (07:58)
[2022-08-07] MEDS ORDERED: IRON SUCROSE 300 MG in SODIUM CHLORIDE 0.9% 250 ML IV ONE (08:00)
[2022-08-07 08:13] LABS: BUN Creatinine Ratio 26.4 (10-20); Creatinine Clr Calc Pharmacy 53.9 ml/min; Est GFR (African American) 63.1 ml/min; Est GFR (Non-African American) 54.4 ml/min
[2022-08-07] MEDS: BUMETANIDE 1 MG TAB PO SCH ×2 (08:29→13:30)
[2022-08-07] MEDS: CALCIUM CARBONATE 1250MG TAB PO SCH (08:30)
[2022-08-07] MEDS: MAGNESIUM OXIDE 400 MG TAB PO SCH (08:30)
[2022-08-07] MEDS: metOLazone 2.5 MG TABLET PO SCH (08:30)
[2022-08-07] MEDS: POTASSIUM CHLORIDE CRTAB 20 MEQ TABCR PO SCH (08:30)
[2022-08-07] MEDS: ESCITALOPRAM OXALATE 20 MG TAB PO SCH (08:30)
[2022-08-07] MEDS: DOCUSATE SODIUM 100 MG CAP PO SCH (08:31)
[2022-08-07] MEDS: PANTOprazole 40 MG TAB PO SCH (08:31)
[2022-08-07] MEDS: SPIRONOLACTONE 25 MG TAB PO SCH (08:33)
--- NOTE | 2022-08-07 08:44 | Communication Note ---
Date of Service: August 07, 2022 Patient is a 77 yo male with profound anemia. He has undergone an EGD & colonoscopy without source of bleeding. CT abd/pelvis unremarkable for acute GI issues contributing to anemia. He has no overt GI bleeding. I would advise outpatient video capsule endoscopy but would also advise hematology evaluation/intervention.
--- NOTE | 2022-08-07 13:45 | Discharge Summary ---
Date of Service August 07, 2022 Admission HPI Per Admitting Provider Richard Lobo is a 77-year-old male with past medical history significant for severe COPD, CAD, HFrEF, iron deficiency anemia, GERD, depression, and anxiety. He is presenting at the referral of his PCP after having outpatient labs drawn that revealed a hemoglobin of 5.7. Patient was actually admitted several weeks ago for an acutely low hemoglobin and was transfused with 4 units. At the time he had an EGD which did not reveal source of his bleeding. He has been on iron supplementation for months, so it was thought that he may be a poor absorber of oral iron, or possibly requires colonoscopy to look for a lower GI bleed source. It was felt that he could do this as an outpatient. Since then he has had CBCs drawn weekly to monitor his H/H, which is why he had labs checked today. Since discharge, patient had an episode of nonbloody diarrhea which lasted several hours, otherwise no GI symptoms. He fell to his knees yesterday while walking but did not pass out or feel like he might, he states his legs just got weak on him. He has not had syncopal or presyncopal episodes, no chest pain, palpitation, shortness of breath at rest. He is slighly more dyspneic ambulating distances he is typically able to do. As he is on iron supplementation, he does have chronically dark stools, but notes no bright red blood. No abdominal pain, nausea, vomiting. His Hgb in our ED is 5.7, was 9.9 on discharge 07/25 and 8.0 on 07/31. MCV 91, MCHC 30, retic % 8.2, retic # 0.17, iron is low at 16, transferrin, ferritin WNL. Upon presentation and throughout his time in the ED, his vital signs have been stable and within normal limits. Aside from the above, labs otherwise largely unrevealing, his bicarb is 40, it has been chronically elevated to this degree on previous admissions. BUN elevated at 50, unchanged, and creatinine is about baseline. UA without microscopic blood. Discharge Exam gen - NAD skin - pallor but improved neck - JVD present - unchanged heart - RRR, s1 s2, 2/6 systolic murmur LLSB lungs - minimal rales b/l bases, no increased work of breathing abd - soft NT ND BS+ ext - no edema b/l, pulses 2+ b/l psych - a/o x 3 Discharge Data Allergies Allergy/AdvReac Type Severity Reaction Status Date / Time No Known Allergies Allergy Verified 08/06/22 15:03 Consultations 08/04/22 15:41 ED Decision to Admit Stat 08/04/22 17:20 Consult Gastroenterology Routine 08/07/22 09:04 Consult Hematology Routine Procedures Performed Operation Date: 08/06/22 16:00 Actual Procedures p Colonoscopy - Gibson Rosales Case, DO Hospital Course (1) Symptomatic anemia: presumed occult GI bleeding no signs of hemolysis based on normal LDH, normal t.bili; haptoglobin returned high (not low as would be expected w/ hemolysis) recent EGD during previous hospital stay completely normal during early July stay had 3 units of PRBCs and several doses of IV venofer s/p colonoscopy today -- no source of bleeding seen 3 units of PRBCs this admission 300mg x 1 of IV venofer today will give another 300mg tomorrow would benefit from following with heme/onc - will consult them tomorrow (2) Acute blood loss anemia: Recurrent. Presumed GI in etiology. see above. (3) Iron deficiency anemia: all ferritin levels going back several years have been low presumed 2nd to GI blood loss s/p 3 units of PRBCs this admission IV venofer today, and repeat tomorrow (4) Chronic diastolic (congestive) heart failure: Compensated today. Continue Bumex 4 mg BID, metolazone 2.5 mg daily, and spironolactone 25 mg BID. Echo from April: EF 55-60%, moderate LVH, dilated right heart and increased PA end diastolic pressures. (5) Chronic respiratory failure with hypoxia: 2nd Severe COPD and pulmonary HTN. No evidence of exacerbation. Remains stable on 5 L NC (baseline requirement). (6) Allergic rhinitis with postnasal drip: Continue azelastine spray. (7) GERD (gastroesophageal reflux disease): Continue oral PPI. (8) Anxiety: Continue Lexapro, BuSpar. (9) Pulmonary hypertension: NC O2 (10) Chronic cor pulmonale: compensated (11) COPD (chronic obstructive pulmonary disease): stable o2 requirement no flare (12) CAD (coronary artery disease): no ischemic symptoms keep Hb>8 given severe cardiopulmonary disease Plan SCDs for DVT proph left message for pt's on her voicemail 08/05 and today anticipate d/c home tomorrow if H/H remain stable Home Health Attestation I certify that this patient is under my care and that I, or a physicians car rental sales assistant working with me, had a face to-face encounter that meets the home health [id number] encounter requirements with this patient. The encounter with the patient was in whole, or in part, for the following medical condition, which is the primary reason for home health care (list medical condition): I certify that, based on my findings, the following services are medically necessary home health services: My clinical findings support the need for the above services because: Further, I certify that my clinical findings support that this patient is homebound (i.e. absences from home require considerable and taxing effort and are for medical reasons or holiness services or infrequently or of short duration when for other reasons) because: Certification for Home Health Services: Based on the above findings, I certify that this patient is confined to the home and needs intermittent detention care, physical therapy and/or speech therapy or continues to need occupational therapy. The patient is under my care, and I have initiated the establishment of the plan of care. This patient will be followed by a physician who will periodically review the plan of care. Discharge Plan Discharge Items Patient Disposition: Home - Self-Care Reason For Visit: ANEMIA Discharge Diagnosis: 1. Severe acute on chronic anemia; presenting hemoglobin level = 5.7; discharge hemoglobin level = 8.3. 2. Iron deficiency anemia of uncertain cause, GI bleeding suspected but source not found; capsule endoscopy needed. 3. Chronic oxygen use. 4. COPD. Activity: Resume your previous activity Non-emergency contact: Primary Care Provider, Specialist and Storeroom Supervisor Call non-emergency contact if: you have any medication questions and your symptoms worsen Follow-up/Referrals: Gibson Newell DO [Physician] - (Dr Newell's office will be arranging the capsule endoscopy. If you do not hear from their office by mid next-week please contact their office. ) Angela Schultz MD [Primary Care Provider] - (within 5 days ) Candice Heard MD [Physician] - (2-3 weeks) Diet: Heart Healthy Fluids: 1500ml (6 cups) Addtl Attending Provider Instructions: Mr Dover - You were hospitalized for severe anemia. You have been struggling with anemia for quite some time and just were hospitalized for the same problem a few weeks ago. It has been suspected that you are losing blood from somewhere in the GI tract but no source has been found thus far. Upper endoscopy was negative in early July, and your colonoscopy this admission did not show a source for any bleeding. You did have mild diverticulosis of the colon but there was no evidence of bleeding from this region. See handout on diverticulosis. You received 2 iron infusions and 3 units of blood while here. Discharge hemoglobin level is 8.3. You will be set up for a "capsule" endoscopy in the near-future by Gastroenterology. With such you swallow a very tiny camera that takes pictures of your intestinal tract as it moves through. This will look for sources of blood loss in your small intestine. At this time please discontinue your aspirin. Please do not take any [id number]-[id number] motrin/ibuprofen/alleve/naprosyn. Tylenol IS ok for aches/pains. Pending Studies at Discharge: Yes Studies:: lab screening test for celiac disease Stand-Alone Forms: My [facility] [employer] Labs, Smoking Cessation Medications and DC Order Prescriptions: Continued diphenhydramine HCl [Benadryl] 25 mg capsule 25 mg PO HS melatonin 3 mg capsule 6 mg PO HS docusate sodium 100 mg capsule 100 mg PO BID magnesium 250 mg tablet 250 mg PO DAILY atorvastatin 80 mg tablet 80 mg PO QPM multivitamin [Multiple Vitamins] Tablet 1 tab PO DAILY escitalopram oxalate 10 mg tablet 20 mg PO DAILY spironolactone 25 mg tablet 25 mg PO BID 30 Days Qty: 60 3RF metolazone 2.5 mg tablet 2.5 mg PO DAILY Qty: 90 3RF bumetanide 2 mg tablet See Rx Instructions PO BID Rx Instructions: 2 tablet in the AM @ 0600; 2 tab @ lunch Trelegy Ellipta 100-62.5-25 mcg blister with device 1 inh inhalation DAILY Qty: 3 1RF albuterol sulfate 90 mcg/actuation HFA aerosol inhaler 2 puff inhalation Q6H PRN (Reason: Shortness Of Breath Or Wheezing) Qty: 18 3RF azelastine 137 mcg (0.1 %) aerosol,spray 2 spray intranasal DAILY Qty: 30 3RF potassium chloride 20 mEq tablet extended release 20 meq PO QAM Qty: 0 0RF pantoprazole 40 mg tablet,delayed release (DR/EC) 40 mg PO DAILY calcium carbonate [Calcium 600] 600 mg calcium (1,500 mg) Tablet 600 mg PO DAILY buspirone 10 mg tablet 10 mg PO TID PRN (Reason: Anxiety) Discontinued aspirin [Adult Low Dose Aspirin] 81 mg tablet,delayed release (DR/EC) 81 mg PO QPM ferrous sulfate 325 mg (65 mg iron) tablet 65 mg PO UD Qty: 30 0RF Krames/Other Patient Handouts: ED Diverticulosis Admission Data Admit Date/Time: 08/04/22 16:03 Attending Provider: Miugel Brown Admit Provider: Miguel Brown Primary Care Provider: Angela Schultz Other Providers: Miguel Brown ; Gibson Newell ; [facility] ; Candice Heard Other Interventions: Discharge Summary Assessment (RN) Last Done: 08/06/22 16:48 Coding Diagnoses Symptomatic anemia D64.9 Acute blood loss anemia D62 Iron deficiency anemia D50.9 Chronic diastolic (congestive) heart failure I50.32 Chronic respiratory failure with hypoxia J96.11 Allergic rhinitis with postnasal drip J30.9; R09.82 GERD (gastroesophageal reflux disease) K21.9 Anxiety F41.9 Pulmonary hypertension I27.20 Chronic cor pulmonale I27.81 COPD (chronic obstructive pulmonary disease) J44.1 COPD type: COPD with acute exacerbation CAD (coronary artery disease) I25.10
--- NOTE | 2022-08-07 17:25 | Consultation Report ---
DATE OF SERVICE: 08/07/2022. REASON FOR CONSULTATION: Anemia. HISTORY OF PRESENT ILLNESS: The patient is a 77-year-old gentleman with multiple comorbidities who has a longstanding history of iron deficiency anemia for which he has required multiple PRBC transfusions and IV iron infusions. He presented to the ED of [facility] on 08/04/2022. He presented with symptomatic anemia. Labs obtained by his PCP, had revealed hemoglobin of 5.7 for which he was told to present to the ER. During admission, he has had workup including LDH, haptoglobin, which were within normal limits and not suggestive of hemolysis. He also had colonoscopy, which did not show any evidence of bleeding. He received 3 units of PRBC and 1 dose of IV Venofer 300 mg. On evaluation, he denied chest pain, shortness of breath, abdominal pain, nausea, vomiting, diarrhea, constipation, or significant weight loss.States that he had a negative bone marrow biopsy biopsy about 10 months ago under the care of Dr. Troy at [facility] [place] ALL[place]GIES: No known drug allergies. HOME MEDICATIONS: 1. Atorvastatin. 2. Magnesium supplement. 3. Multivitamin. 4. Docusate sodium. 5. Spironolactone. 6. Aspirin. 7. Albuterol. 8. Fluticasone inhaler. 9. Escitalopram. 10. Melatonin. 11. Bumetanide. 12. Buspirone. 13. P.o. iron. 14. Metolazone. 15. Pantoprazole. PAST MEDICAL HISTORY: 1. Aortic stenosis, status post TAVR. 2. Coronary artery disease. 3. Carotid stenosis. 4. Congestive heart failure. 5. COPD. 6. GERD. 7. Hypertension. 8. Anemia. PAST SURGICAL HISTORY: 1. Left carotid endarterectomy. 2. Appendectomy. FAMILY HISTORY: Significant for breast cancer in his mother. SOCIAL HISTORY: Drinks alcohol occasionally. Denies smoking or illicit drug use. REVIEW OF SYSTEMS: Unremarkable except as noted in HPI. PHYSICAL EXAMINATION: Also unremarkable. LABORATORY DATA: CBC from 08/07/2022 revealed white cell count of 6.44, hemoglobin of 8.3, hematocrit 26.8, MCV of 89.8, and platelet count of 344,000. ASSESSMENT AND PLAN: Normocytic normochromic anemia. Pleasant gentleman with multiple hospitalizations for severe anemia for which he has required PRBC and IV iron infusions. He had negative bone marrow biopsy in the past. Based on review of his labs, he has no other cytopenias to suggest myelodysplastic syndromes. Peripheral smear review by pathology in 04/2022 was also not suggestive of myelodysplastic syndromes. Given iron studies with a borderline ferritin levels, suspect that his anemia is most likely due to iron deficiency. Would recommend Hematology followup upon discharge from hospital to discuss maintenance IV iron infusions. Agree with plan by GI for outpatient capsule endoscopy to rule out bleeding. Thank you for this consult. Hematology will sign off at this time. Please feel free to call if you have any further questions. Job ID: [id number] [facility] CENTERJennifer
[2022-08-11 03:16] LABS: IgA Serum 208 mg/dL (70-320); Tis Trans IgA <1.0 U/mL
== END 2022-08-07 18:30 | disposition home health service (06) | DRG 378 ==
LOC: ED 13:55 → 2S 16:03

== ENCOUNTER 2022-10-10 05:59 | Inpatient (IN) ==
[2022-10-10 06:37] LABS: Hematocrit (blood only) 23.2 % (40.1-51.0); Hemoglobin 6.7 g/dl (14.0-18.0); Mean Corpuscular Hemoglobin 24.2 pg (25.0-34.0); Mean Corpuscular Hgb Conc 28.9 g/dL (32.0-36.0); Mean Corpuscular Volume 83.8 fL (80.0-100.0); Mean Platelet Volume 9.6 fL (9.4-12.4); Platelet Count 468 K/uL (130-400); RDW Coefficient of Variation 21.2 % (11.5-14.5); Red Blood Count 2.77 M/uL (4.63-6.08); White Blood Count 10.24 K/ul (4.8-10.8)
--- NOTE | 2022-10-10 06:43 | XRay Report ---
XR chest 1V portable CLINICAL HISTORY: Shortness of breath. COMPARISON STUDY: Chest CT May 19, 2022. Chest radiograph July 22, 2022. FINDINGS: Prosthetic aortic valve is noted. There is no pneumothorax. Small to moderate left and smal l right pleural effusions have progressed. Bibasilar opacities have increased. Pulmonary edema has de veloped. Cardiomegaly is unchanged. IMPRESSION: 1. Interval development of pulmonary edema. 2. Increase in small to moderate left and small right pleural effusions with bibasilar opacities. ACT 112: Negative or not required by law. Electronically signed by: Anjum Chaudhry M.D. 10/10/2022 6:41 AM
[2022-10-10 06:46] LABS: Anisocytosis Present; Basophils # (auto) 0.06 K/uL (0-0.2); Basophils % (auto) 0.6 %; Eosinophils # (auto) 0.07 K/uL (0-0.50); Eosinophils % (auto) 0.7 %; Immature Granulocytes # (auto) 0.05 K/uL (0.00-0.02); Immature Granulocytes % (auto) 0.5 %; Lymphocytes % (auto) 2.9 %; Monocytes # (auto) 0.86 K/uL (0.24-0.82); Monocytes % (auto) 8.4 %; Neutrophils % (auto) 86.9 %; Polychromasia 1+
[2022-10-10] MEDS ORDERED: SODIUM CHLORIDE 0.9% 250 ML IV PRN (06:46)
[2022-10-10] MEDS ORDERED: ALBUT/IPRATROP 3MG/0.5MG NEB 3 ML VIAL NEB STA (06:47)
[2022-10-10] MEDS ORDERED: predniSONE 50 MG TAB PO STA (06:47)
[2022-10-10 06:59] LABS: Troponin I High Sensitivity 21.6 pg/ml (0-20)
[2022-10-10 07:06] LABS: Base Excess VBG 15.5 mEq/L; HCO3 VBG 44 mmol/L; Oxygen Saturation VBG < 60.0 %; PCO2 VBG 71 mmHg (38-50); PO2 VBG 35 mmHg
--- NOTE | 2022-10-10 07:13 | Emergency Department Note ---
History of Present Illness General Chief Complaint: Shortness of Breath/Dyspnea Time Seen by Provider: 10/10/22 06:35 History of Present Illness Provider Complaint: shortness of breath Onset (ago): hour(s) (8) Severity: moderate Consistency/Duration: + constant and + progressively worsening Relieved By: + oxygen and + upright position Exacerbated By: + lying flat, + exertion and + coughing Known history of: COPD and congestive heart failure Associated symptoms: + wheezing, + sputum production, + orthopnea and + chest congestion; no chest pain, no fever, no cough, no hemoptysis, no diaphoresis or no abdominal pain Related Data Home oxygen amount: other (2 L at rest 5 L at night and when exerting himself) Home Medications Medication Instructions Recorded Confirmed Type magnesium 250 mg tablet 250 mg PO DAILY 05/20/20 10/10/22 History multivitamin (Multiple Vitamins 1 tab PO DAILY 05/21/20 10/10/22 History tablet) docusate sodium 100 mg capsule 100 mg PO BID 06/10/20 10/10/22 History azelastine 137 mcg (0.1 %) nasal 2 spray intranasal DAILY #30 mL 03/10/22 10/10/22 Rx spray aerosol fluticasone fur. 100 mcg-umeclid 1 inh inhalation DAILY #3 Inhalers 03/27/22 10/10/22 Rx 62.5 mcg-vilant 25 mcg inhalat.powder (Trelegy Ellipta) potassium chloride 20 mEq 20 meq PO QAM #0 tabs 04/20/22 10/10/22 Rx tablet,extended release diphenhydramine HCl 25 mg capsule 25 mg PO HS 05/26/22 10/10/22 History (Benadryl) melatonin 3 mg capsule 6 mg PO HS 05/26/22 10/10/22 History buspirone 10 mg tablet 10 mg PO TID PRN Anxiety 07/22/22 10/10/22 History metolazone 2.5 mg tablet 2.5 mg PO DAILY #90 tabs 07/30/22 10/10/22 Rx calcium carbonate 600 mg calcium 600 mg PO DAILY 08/04/22 10/10/22 History (1,500 mg) tablet (Calcium) Oxygen Home #1 ea 08/07/22 09/28/22 Rx atorvastatin 80 mg tablet 80 mg PO QPM #90 tabs 09/29/22 10/10/22 Rx escitalopram oxalate 20 mg tablet 20 mg PO DAILY 14 days #14 tabs 09/29/22 10/10/22 Rx pantoprazole 40 mg tablet,delayed 40 mg PO DAILY #90 tabs 09/29/22 10/10/22 Rx release spironolactone 25 mg tablet 25 mg PO BID 90 days #180 tabs 09/29/22 10/10/22 Rx albuterol sulfate 90 mcg/actuation 2 puff inhalation Q6H PRN 10/01/22 10/10/22 Rx aerosol inhaler Shortness Of Breath Or Wheezing #18 grams bumetanide 2 mg tablet 4 mg PO .DAILY@0600,1200 10/10/22 10/10/22 History Allergies Allergy/AdvReac Type Severity Reaction Status Date / Time No Known Allergies Allergy Verified 10/10/22 07:48 Past Med/Surg History Medical History Acute blood loss anemia Allergic rhinitis with postnasal drip Anxiety Aortic stenosis s/p TAVR 2019 ([facility]) CAD (coronary artery disease) Carotid stenosis, bilateral Chronic cor pulmonale Chronic diastolic (congestive) heart failure Chronic respiratory failure with hypoxia Chronic respiratory failure with hypoxia and hypercapnia on home O2 - 5-6 L COPD (chronic obstructive pulmonary disease) Elevated troponin I level Generalized weakness GERD (gastroesophageal reflux disease) History of GI bleed Hypertension Iron deficiency anemia Pulmonary hypertension Tobacco use disorder Uremia Surgical History History of left-sided carotid endarterectomy 2014 S/P appendectomy Family History Father Hypertension Mother Hypotension Breast cancer Other No family history of adverse response to anesthesia No family history of bleeding disorder Social History Smoking Status: Former smoker Tobacco Type: Cigarettes packs per day: 1; Second Hand Exposure: No; Hx Alcohol Use: Yes Alcohol type: hard liquor Alcohol Intake Frequency: Monthly or Less Alcohol Intake Frequency Comment: 1 bottle of Manny Dupree a month Hx Substance Use: No Preferred Language: Kyrgyz Communication Ability: Effective Visual Impairment: No Limitations 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 Beliefs That Will Affect Care: None marital status: Current Living Situation: Family Current Living Situation Comment: house current occupational status: retired Feels Safe at Home: Yes Assistive Devices: Cane, Oxygen - Continuous and Walker Review of Systems A total of 10 systems reviewed and were otherwise negative Physical Exam Vital Signs: Vital Signs - 24 hr 10/10/22 06:07 10/10/22 06:17 10/10/22 06:17 Temperature 37.4 C Temperature Source Oral Pulse Rate 86 Pulse Rate [Finger ] Pulse Rate from Sp O2 Sensor Pulse Rhythm Pulse Rhythm [Fing er] Pulse Strength Respiratory Rate 29 H Respiratory Effort / Characteristics Spontaneous Labore d Spontaneous Labore d Respiratory Depth Deep Deep Respiratory Patter n Regular Tachypnea Blood Pressure 132/43 L Blood Pressure [Ri ght Arm] Blood Pressure Jovana n 72 Blood Pressure Jovana n [Right Arm] Blood Pressure Pos ition Pulse Oximetry 95 Oxygen Delivery Me thod Nasal Cannula Nasal Cannula Oxygen Flow Rate 5 5 5 Sepsis Recent Feve r Within 48 Hours No Sepsis New/Unexpla ined Change in Men jose luis Status No Sepsis Action Take n by Nursing No Action Required 10/10/22 06:30 10/10/22 07:30 10/10/22 07:30 Temperature Temperature Source Pulse Rate 74 Pulse Rate [Finger ] 92 H Pulse Rate from Sp O2 Sensor 74 Pulse Rhythm Pulse Rhythm [Fing er] Irregular Pulse Strength Respiratory Rate 19 19 Respiratory Effort / Characteristics Respiratory Depth Respiratory Patter n Blood Pressure 135/58 L Blood Pressure [Ri ght Arm] 129/67 Blood Pressure Jovana n 83 Blood Pressure Jovana n [Right Arm] 87 Blood Pressure Pos ition Pulse Oximetry 92 98 Oxygen Delivery Me thod Nasal Cannula Oxygen Flow Rate 5 Sepsis Recent Feve r Within 48 Hours Sepsis New/Unexpla ined Change in Men jose luis Status Sepsis Action Take n by Nursing 10/10/22 08:00 10/10/22 08:00 10/10/22 08:25 Temperature 36.9 C Temperature Source Oral Pulse Rate 94 H 82 Pulse Rate [Finger ] Pulse Rate from Sp O2 Sensor Pulse Rhythm Regular Pulse Rhythm [Fing er] Pulse Strength Normal Respiratory Rate 14 22 Respiratory Effort / Characteristics Respiratory Depth Respiratory Patter n Blood Pressure 108/51 L 111/49 L Blood Pressure [Ri ght Arm] Blood Pressure Jovana n 70 69 Blood Pressure Jovana n [Right Arm] Blood Pressure Pos ition Pulse Oximetry 92 98 Oxygen Delivery Me thod Nasal Cannula Oxygen Flow Rate 5 5 Sepsis Recent Feve r Within 48 Hours Sepsis New/Unexpla ined Change in Men jose luis Status Sepsis Action Take n by Nursing 10/10/22 08:46 10/10/22 09:01 10/10/22 09:31 Temperature 37.2 C 37.1 C 36.9 C Temperature Source Oral Oral Oral Pulse Rate 89 85 98 H Pulse Rate [Finger ] Pulse Rate from Sp O2 Sensor Pulse Rhythm Irregular Regular Regular Pulse Rhythm [Fing er] Pulse Strength Normal Normal Normal Respiratory Rate 20 20 20 Respiratory Effort / Characteristics Respiratory Depth Respiratory Patter n Blood Pressure 131/63 101/46 L 102/60 Blood Pressure [Ri ght Arm] Blood Pressure Jovana n 85 64 74 Blood Pressure Jovana n [Right Arm] Blood Pressure Pos ition Sitting Pulse Oximetry 95 98 96 Oxygen Delivery Me thod Oxygen Flow Rate 4 5 Sepsis Recent Feve r Within 48 Hours Sepsis New/Unexpla ined Change in Men jose luis Status Sepsis Action Take n by Nursing 10/10/22 10:31 10/10/22 08:26 10/10/22 08:26 Temperature 37.4 C Temperature Source Oral Pulse Rate 92 H 93 H Pulse Rate [Finger ] Pulse Rate from Sp O2 Sensor 92 H Pulse Rhythm Regular Pulse Rhythm [Fing er] Pulse Strength Normal Respiratory Rate 20 20 Respiratory Effort / Characteristics Respiratory Depth Respiratory Patter n Blood Pressure 112/51 L 111/49 L Blood Pressure [Ri ght Arm] Blood Pressure Jovana n 71 69 Blood Pressure Jovana n [Right Arm] Blood Pressure Pos ition Pulse Oximetry 94 97 Oxygen Delivery Me thod Oxygen Flow Rate 5 Sepsis Recent Feve r Within 48 Hours Sepsis New/Unexpla ined Change in Men jose luis Status Sepsis Action Take n by Nursing 10/10/22 08:30 10/10/22 08:30 10/10/22 08:45 Temperature Temperature Source Pulse Rate 92 H Pulse Rate [Finger ] Pulse Rate from Sp O2 Sensor 91 H Pulse Rhythm Pulse Rhythm [Fing er] Pulse Strength Respiratory Rate 19 Respiratory Effort / Characteristics Respiratory Depth Respiratory Patter n Blood Pressure 101/49 L 131/63 Blood Pressure [Ri ght Arm] Blood Pressure Jovana n 66 85 Blood Pressure Jovana n [Right Arm] Blood Pressure Pos ition Pulse Oximetry 100 Oxygen Delivery Me thod Oxygen Flow Rate Sepsis Recent Feve r Within 48 Hours Sepsis New/Unexpla ined Change in Men jose luis Status Sepsis Action Take n by Nursing 10/10/22 08:45 10/10/22 09:00 10/10/22 09:00 Temperature Temperature Source Pulse Rate 98 H 79 Pulse Rate [Finger ] Pulse Rate from Sp O2 Sensor 95 H 82 Pulse Rhythm Pulse Rhythm [Fing er] Pulse Strength Respiratory Rate 17 19 Respiratory Effort / Characteristics Respiratory Depth Respiratory Patter n Blood Pressure 101/46 L Blood Pressure [Ri ght Arm] Blood Pressure Jovana n 64 Blood Pressure Jovana n [Right Arm] Blood Pressure Pos ition Pulse Oximetry 96 97 Oxygen Delivery Me thod Oxygen Flow Rate Sepsis Recent Feve r Within 48 Hours Sepsis New/Unexpla ined Change in Men jose luis Status Sepsis Action Take n by Nursing 10/10/22 09:16 10/10/22 09:16 10/10/22 09:30 Temperature Temperature Source Pulse Rate 98 H Pulse Rate [Finger ] Pulse Rate from Sp O2 Sensor 96 H Pulse Rhythm Pulse Rhythm [Fing er] Pulse Strength Respiratory Rate 15 Respiratory Effort / Characteristics Respiratory Depth Respiratory Patter n Blood Pressure 134/47 L 102/60 Blood Pressure [Ri ght Arm] Blood Pressure Jovana n 76 74 Blood Pressure Jovana n [Right Arm] Blood Pressure Pos ition Pulse Oximetry 99 Oxygen Delivery Me thod Oxygen Flow Rate Sepsis Recent Feve r Within 48 Hours Sepsis New/Unexpla ined Change in Men jose luis Status Sepsis Action Take n by Nursing 10/10/22 09:30 10/10/22 09:45 10/10/22 09:45 Temperature Temperature Source Pulse Rate 98 H 82 Pulse Rate [Finger ] Pulse Rate from Sp O2 Sensor 97 H 85 Pulse Rhythm Pulse Rhythm [Fing er] Pulse Strength Respiratory Rate 15 29 H Respiratory Effort / Characteristics Respiratory Depth Respiratory Patter n Blood Pressure 120/61 Blood Pressure [Ri ght Arm] Blood Pressure Jovana n 80 Blood Pressure Jovana n [Right Arm] Blood Pressure Pos ition Pulse Oximetry 95 93 Oxygen Delivery Me thod Oxygen Flow Rate Sepsis Recent Feve r Within 48 Hours Sepsis New/Unexpla ined Change in Men jose luis Status Sepsis Action Take n by Nursing 10/10/22 10:01 10/10/22 10:01 10/10/22 10:15 Temperature Temperature Source Pulse Rate 98 H Pulse Rate [Finger ] Pulse Rate from Sp O2 Sensor 96 H Pulse Rhythm Pulse Rhythm [Fing er] Pulse Strength Respiratory Rate 22 Respiratory Effort / Characteristics Respiratory Depth Respiratory Patter n Blood Pressure 117/40 L 122/56 L Blood Pressure [Ri ght Arm] Blood Pressure Jovana n 65 78 Blood Pressure Jovana n [Right Arm] Blood Pressure Pos ition Pulse Oximetry 85 L Oxygen Delivery Me thod Oxygen Flow Rate Sepsis Recent Feve r Within 48 Hours Sepsis New/Unexpla ined Change in Men jose luis Status Sepsis Action Take n by Nursing 10/10/22 10:15 10/10/22 10:30 10/10/22 10:30 Temperature Temperature Source Pulse Rate 80 92 H Pulse Rate [Finger ] Pulse Rate from Sp O2 Sensor 78 94 H Pulse Rhythm Pulse Rhythm [Fing er] Pulse Strength Respiratory Rate 30 H 20 Respiratory Effort / Characteristics Respiratory Depth Respiratory Patter n Blood Pressure 112/51 L Blood Pressure [Ri ght Arm] Blood Pressure Jovana n 71 Blood Pressure Jovana n [Right Arm] Blood Pressure Pos ition Pulse Oximetry 94 92 Oxygen Delivery Me thod Oxygen Flow Rate Sepsis Recent Feve r Within 48 Hours Sepsis New/Unexpla ined Change in Men jose luis Status Sepsis Action Take n by Nursing Physical Exam: Physical Exam HENT: Exam performed. - Head: Normocephalic and atraumatic. - Right Ear: External ear normal. No mastoid tenderness. - Left Ear: External ear normal. No mastoid tenderness. - Mouth/Throat: The oropharynx is clear and moist. No trismus in the jaw. No dental abscesses or uvula swelling. No oropharyngeal exudate or tonsillar abscesses. EYES: Conjunctivae and EOM are normal. Pupils are equal, round, and reactive to light. Right eye exhibits no discharge. Left eye exhibits no discharge. No scleral icterus. NECK: Normal range of motion. Neck supple. No JVD present. No spinous process tenderness present. No carotid bruit present. No rigidity. No tracheal deviation and normal range of motion present. CV: Normal rate, irregular rhythm, normal heart sounds and intact distal pulses. Palpable radial pulses bue. PULM/CHEST: Expiratory wheezes bilaterally. Inspiratory rales at the bases bilaterally. ABD: The abdomen is soft. Bowel sounds are normal. He has no distension. No mass is present. There is no tenderness. There is no rebound, no guarding, no Guadalupe's sign and no tenderness at McBurney's point. Rovsig negative. MUSC/SKEL: Normal range of motion. There is no tenderness or deformity. 1+ pitting edema of the bilateral lower extremities. LYMPH: No cervical adenopathy. NEURO: He is alert and oriented to person, place, and time. He has normal strength. No cranial nerve deficit or sensory deficit. GCS eye subscore is 4. GCS verbal subscore is 5. GCS motor subscore is 6. Cerebellar tests wnl. Course Course 0635: The patient was evaluated in room B7. A complete history and physical exam was performed Cardiac monitoring: An order was placed for continuous cardiac monitoring. The monitor shows a rate of 80 with atrial fibrilation rhythm 0711: Vital signs stable and the patient supplemental oxygen at home. Patient's hemoglobin is 6.7. Patient states he has a history of anemia. Patient will be transfused 1 unit packed red blood cells. Patient refusing rectal exam at this time. 0831: Vital signs stable on supplemental oxygen. VBG within normal limits. Metabolic profile shows a normal creatinine and potassium. Troponin mildly elevated 21.6 and BNP elevated at 367. Chest x-ray shows pulmonary edema. Patient treated with Lasix in addition to prednisone and DuoNeb treatment for combined COPD and CHF exacerbation. Patient will be admitted to the [facility] team Dr. Arciniega notified. Administered Medications Discontinued Medications Albuterol (Albut/Ipratrop 3mg/0.5mg Neb 3 Ml Vial) 3 ml NEB NOW STA; Protocol Stop: 10/10/22 06:48 Last Admin: 10/10/22 07:09 Dose: 3 ml Documented By: JEB Furosemide (Furosemide 40 Mg/4 Ml Vial) 40 mg IV ONE ONE Stop: 10/10/22 07:57 Last Admin: 10/10/22 08:18 Dose: 40 mg Documented By: JEB Prednisone (Prednisone 50 Mg Tab) 50 mg PO NOW STA Stop: 10/10/22 06:48 Last Admin: 10/10/22 07:09 Dose: 50 mg Documented By: JEB Medical Decision Making Laboratory Data Result diagrams: 10/10/22 06:12 10/10/22 06:12 Lab Results 10/10/22 10/10/22 10/10/22 Range/Units 06:12 06:12 06:12 WBC 10.24 (4.8-10.8) K/ul RBC 2.77 L (4.63-6.08) M/uL Hgb 6.7 L* (14.0-18.0) g/dl Hct 23.2 L (40.1-51.0) % MCV 83.8 (80.0-100.0) fL MCH 24.2 L (25.0-34.0) pg MCHC 28.9 L (32.0-36.0) g/dL RDW Std Deviation 59.0 H (36.4-46.3) fL RDW Coeff of Vesta 21.2 H (11.5-14.5) % Plt Count 468 H (130-400) K/uL MPV 9.6 (9.4-12.4) fL Immature Gran % (Auto) 0.5 % Neut % (Auto) 86.9 % Lymph % (Auto) 2.9 % Berks % (Auto) 8.4 % Eos % (Auto) 0.7 % Baso % (Auto) 0.6 % Neut # (Auto) 8.90 H (1.4-6.5) K/uL Lymph # (Auto) 0.30 L (1.2-3.4) K/uL [place] # (Auto) 0.86 H (0.24-0.82) K/uL Eos # (Auto) 0.07 (0-0.50) K/uL Baso # (Auto) 0.06 (0-0.2) K/uL Immature Gran # (Auto) 0.05 H (0.00-0.02) K/uL Polychromasia 1+ Anisocytosis Present PT (9.0-12.0) Seconds INR (0.9-1.1) APTT (21.0-31.0) Seconds PTT Ratio VBG pH (7.36-7.41) VBG pCO2 (38-50) mmHg VBG pO2 mmHg VBG HCO3 mmol/L VBG O2 Saturation % VBG Base Excess mEq/L Sodium 140 (136-145) mmol/L Potassium 4.1 (3.5-5.1) mmol/L Chloride 95 L (98-107) mmol/L Carbon Dioxide 39 H (21-32) mmol/L Anion Gap 6 (3-11) BUN 35 H (6-23) mg/dl Creatinine 1.22 (0.6-1.4) mg/dl Est Cr Clr Drug Dosing 57.0 ml/min Est GFR ( Amer) 65.0 ml/min Est GFR (Non-Af Amer) 56.0 ml/min BUN/Creatinine Ratio 28.7 H (10-20) Glucose 170 H (70-99(Fasting)) mg/dl Calcium 9.7 (8.5-10.1) mg/dl Magnesium (1.7-2.4) mg/dl Total Bilirubin 0.4 (0.2-1.0) mg/dl AST 19 (13-39) U/L ALT 14 (7-52) U/L Alkaline Phosphatase 76 (34-104) U/L Troponin I High Sens 21.6 H (0-20) pg/ml B-Natriuretic Peptide 367 H (0-100) pg/ml Total Protein 7.0 (6.0-8.3) gm/dl Albumin 3.9 (3.4-5.0) gm/dl Globulin 3.1 (2.5-4.0) gm/dl Albumin/Globulin Ratio 1.3 (0.9-2) SARS-CoV-2, RNA, NAAT (NEGATIVE) Blood Type Antibody Screen Crossmatch 10/10/22 10/10/22 10/10/22 Range/Units 06:12 06:48 06:48 WBC (4.8-10.8) K/ul RBC (4.63-6.08) M/uL Hgb (14.0-18.0) g/dl Hct (40.1-51.0) % MCV (80.0-100.0) fL MCH (25.0-34.0) pg MCHC (32.0-36.0) g/dL RDW Std Deviation (36.4-46.3) fL RDW Coeff of Vesta (11.5-14.5) % Plt Count (130-400) K/uL MPV (9.4-12.4) fL Immature Gran % (Auto) % Neut % (Auto) % Lymph % (Auto) % Berks % (Auto) % Eos % (Auto) % Baso % (Auto) % Neut # (Auto) (1.4-6.5) K/uL Lymph # (Auto) (1.2-3.4) K/uL Berks # (Auto) (0.24-0.82) K/uL Eos # (Auto) (0-0.50) K/uL Baso # (Auto) (0-0.2) K/uL Immature Gran # (Auto) (0.00-0.02) K/uL Polychromasia Anisocytosis PT 11.4 Cancelled (9.0-12.0) Seconds INR 1.1 Cancelled (0.9-1.1) APTT 28.3 Cancelled (21.0-31.0) Seconds PTT Ratio 1.0 Cancelled VBG pH (7.36-7.41) VBG pCO2 (38-50) mmHg VBG pO2 mmHg VBG HCO3 mmol/L VBG O2 Saturation % VBG Base Excess mEq/L Sodium (136-145) mmol/L Potassium (3.5-5.1) mmol/L Chloride (98-107) mmol/L Carbon Dioxide (21-32) mmol/L Anion Gap (3-11) BUN (6-23) mg/dl Creatinine (0.6-1.4) mg/dl Est Cr Clr Drug Dosing ml/min Est GFR ( Amer) ml/min Est GFR (Non-Af Amer) ml/min BUN/Creatinine Ratio (10-20) Glucose (70-99(Fasting)) mg/dl Calcium (8.5-10.1) mg/dl Magnesium 2.4 (1.7-2.4) mg/dl Total Bilirubin (0.2-1.0) mg/dl AST (13-39) U/L ALT (7-52) U/L Alkaline Phosphatase (34-104) U/L Troponin I High Sens (0-20) pg/ml B-Natriuretic Peptide (0-100) pg/ml Total Protein (6.0-8.3) gm/dl Albumin (3.4-5.0) gm/dl Globulin (2.5-4.0) gm/dl Albumin/Globulin Ratio (0.9-2) SARS-CoV-2, RNA, NAAT (NEGATIVE) Blood Type Antibody Screen Crossmatch 10/10/22 10/10/22 10/10/22 Range/Units 06:56 06:56 07:07 WBC (4.8-10.8) K/ul RBC (4.63-6.08) M/uL Hgb (14.0-18.0) g/dl Hct (40.1-51.0) % MCV (80.0-100.0) fL MCH (25.0-34.0) pg MCHC (32.0-36.0) g/dL RDW Std Deviation (36.4-46.3) fL RDW Coeff of Vesta (11.5-14.5) % Plt Count (130-400) K/uL MPV (9.4-12.4) fL Immature Gran % (Auto) % Neut % (Auto) % Lymph % (Auto) % [place] % (Auto) % Eos % (Auto) % Baso % (Auto) % Neut # (Auto) (1.4-6.5) K/uL Lymph # (Auto) (1.2-3.4) K/uL [place] # (Auto) (0.24-0.82) K/uL Eos # (Auto) (0-0.50) K/uL Baso # (Auto) (0-0.2) K/uL Immature Gran # (Auto) (0.00-0.02) K/uL Polychromasia Anisocytosis PT (9.0-12.0) Seconds INR (0.9-1.1) APTT (21.0-31.0) Seconds PTT Ratio VBG pH 7.40 (7.36-7.41) VBG pCO2 71 H (38-50) mmHg VBG pO2 35 mmHg VBG HCO3 44 mmol/L VBG O2 Saturation < 60.0 % VBG Base Excess 15.5 mEq/L Sodium (136-145) mmol/L Potassium (3.5-5.1) mmol/L Chloride (98-107) mmol/L Carbon Dioxide (21-32) mmol/L Anion Gap (3-11) BUN (6-23) mg/dl Creatinine (0.6-1.4) mg/dl Est Cr Clr Drug Dosing ml/min Est GFR ( Amer) ml/min Est GFR (Non-Af Amer) ml/min BUN/Creatinine Ratio (10-20) Glucose (70-99(Fasting)) mg/dl Calcium (8.5-10.1) mg/dl Magnesium (1.7-2.4) mg/dl Total Bilirubin (0.2-1.0) mg/dl AST (13-39) U/L ALT (7-52) U/L Alkaline Phosphatase (34-104) U/L Troponin I High Sens (0-20) pg/ml B-Natriuretic Peptide (0-100) pg/ml Total Protein (6.0-8.3) gm/dl Albumin (3.4-5.0) gm/dl Globulin (2.5-4.0) gm/dl Albumin/Globulin Ratio (0.9-2) SARS-CoV-2, RNA, NAAT NEGATIVE (NEGATIVE) Blood Type O Positive Antibody Screen NEGATIVE Crossmatch See Detail Imaging Data Radiologist's Impression: Chest X-Ray 10/10/22 06:03 XR chest 1V portable CLINICAL HISTORY: Shortness of breath. COMPARISON STUDY: Chest CT May 19, 2022. Chest radiograph July 22, 2022. FINDINGS: Prosthetic aortic valve is noted. There is no pneumothorax. Small to moderate left and small right pleural effusions have progressed. Bibasilar opacities have increased. Pulmonary edema has developed. Cardiomegaly is unchanged. IMPRESSION: 1. Interval development of pulmonary edema. 2. Increase in small to moderate left and small right pleural effusions with bibasilar opacities. ACT 112: Negative or not required by law. Electronically signed by: Anjum Chaudhry M.D. 10/10/2022 6:41 AM ECG Data Interpretation: Atrial fibrillation with a rate of 81. QRS [address] elevation or ST depression. [place] Narrative 0635: The patient was evaluated in room B7. A complete history and physical exam was performed Cardiac monitoring: An order was placed for continuous cardiac monitoring. The monitor shows a rate of 80 with atrial fibrilation rhythm 0711: Vital signs stable and the patient supplemental oxygen at home. Patient's hemoglobin is 6.7. Patient states he has a history of anemia. Patient will be transfused 1 unit packed red blood cells. Patient refusing rectal exam at this time. 0831: Vital signs stable on supplemental oxygen. VBG within normal limits. Metabolic profile shows a normal creatinine and potassium. Troponin mildly elevated 21.6 and BNP elevated at 367. Chest x-ray shows pulmonary edema. Patient treated with Lasix in addition to prednisone and DuoNeb treatment for combined COPD and CHF exacerbation. Patient will be admitted to the [facility] team Dr. Arciniega notified. Impression & Plan Acute exacerbation of chronic obstructive pulmonary disease, Elevated troponin I level, Acute on chronic diastolic heart failure with preserved ejection fraction, Anemia, Atrial fibrillation Critical Care Time Critical Care Time: Yes Total Critical Care Time: 43 I have personally spent greater than 43 minutes of critical care time in the direct management of this patient. This includes bedside care, interpretation of diagnostic studies, and testing, discussion with consultants, patient, and family members, and other required patient management activities. This 43 minutes is in excess of all separately billable procedures. Discharge Plan Visit Data Chief Complaint: Shortness of Breath/Dyspnea ED Provider: Bill Montana Discharge Problem: Acute exacerbation of chronic obstructive pulmonary disease, Elevated troponin I level, Acute on chronic diastolic heart failure with preserved ejection fraction, Anemia, Atrial fibrillation Patient Disposition: Admitted As Inpatient Forms Stand Alone Forms: My [facility] Prescriptions Prescriptions: No Action diphenhydramine HCl [Benadryl] 25 mg capsule 25 mg PO HS melatonin 3 mg capsule 6 mg PO HS docusate sodium 100 mg capsule 100 mg PO BID magnesium 250 mg tablet 250 mg PO DAILY multivitamin [Multiple Vitamins] Tablet 1 tab PO DAILY escitalopram oxalate 20 mg tablet 20 mg PO DAILY 14 Days Qty: 14 0RF pantoprazole 40 mg tablet,delayed release (DR/EC) 40 mg PO DAILY Qty: 90 3RF atorvastatin 80 mg tablet 80 mg PO QPM Qty: 90 3RF spironolactone 25 mg tablet 25 mg PO BID 90 Days Qty: 180 3RF albuterol sulfate 90 mcg/actuation HFA aerosol inhaler 2 puff inhalation Q6H PRN (Reason: Shortness Of Breath Or Wheezing) Qty: 18 3RF metolazone 2.5 mg tablet 2.5 mg PO DAILY Qty: 90 3RF Trelegy Ellipta 100-62.5-25 mcg blister with device 1 inh inhalation DAILY Qty: 3 1RF azelastine 137 mcg (0.1 %) aerosol,spray 2 spray intranasal DAILY Qty: 30 3RF potassium chloride 20 mEq tablet extended release 20 meq PO QAM Qty: 0 0RF calcium carbonate [Calcium 600] 600 mg calcium (1,500 mg) Tablet 600 mg PO DAILY (DME) Oxygen Home Liters Per Minute See Rx Instructions .ROUTE .MEDSUPPLY Qty: 1 0RF Rx Instructions: 5 L NC O2 at rest/sleep. 8 L NC O2 with activity/ambulation. buspirone 10 mg tablet 10 mg PO TID PRN (Reason: Anxiety) bumetanide 2 mg tablet 4 mg PO .DAILY@0600,1200 Rx Instructions: 2 tablet in the AM @ 0600; 2 tab @ lunch Referrals Referrals: Eric Westbrook DO [Primary Care Provider] - : Anemia Qualifiers: Anemia type: unspecified type Qualified Code(s): D64.9 - Anemia, unspecified Atrial fibrillation Qualifiers: Atrial fibrillation type: unspecified Qualified Code(s): I48.91 - Unspecified atrial fibrillation
[2022-10-10 07:55] LABS: Albumin Globulin Ratio 1.3 (0.9-2); Albumin Level 3.9 gm/dl (3.4-5.0); BUN Creatinine Ratio 28.7 (10-20); Bilirubin,Total 0.4 mg/dl (0.2-1.0); Calcium 9.7 mg/dl (8.5-10.1); Globulin 3.1 gm/dl (2.5-4.0); Potassium 4.1 mmol/L (3.5-5.1)
[2022-10-10] MEDS ORDERED: FUROSEMIDE 40 MG/4 ML VIAL IV ONE (07:56)
--- NOTE | 2022-10-10 08:56 | History & Physical Report ---
Date of Service October 10, 2022 Assessment & Plan (1) Atrial fibrillation: Plan: - Admit to Tele/Med Surg - New onset Atrial Fibrillation - Will consult cardiology to comment on need to anticoagulate (2) Anemia: Plan: - Continue to closely monitor H/H and for evidence of active GI bleeding - Transfuse for Hgb <7 - Ordered repeat iron studies if able to draw off of blood prior to the transfusion - Will consult GI to evaluate for symptomatic anemia and + Hemoccult test - Continue PPI daily - NPO with ice chips and sips with medications (3) Chronic respiratory failure with hypoxia and hypercapnia: Plan: - Continue nasal canula O2 to keep saturation above 90% (4) Chronic diastolic (congestive) heart failure: Plan: - Continue home medications (5) Elevated troponin I level: Plan: - Cardiology consulted - Repeat labs ordered (6) Acute exacerbation of chronic obstructive pulmonary disease: Plan: - Continue to closely monitor - Continue O2 supplementation to maintain O2 saturations >92% (7) Hypertension: Plan: - continue home medications (8) Dyslipidemia: Plan: - Continue home medications History of Present Illness Chief Complaint: Shortness of breath/dyspnea Primary Care Provider: Eric Westbrook DO This is a 77-year-old male with an extensive past medical history including persistent iron deficiency anemia/anemia of chronic disease that has required multiple transfusions and IV iron infusions (renal disease and following with hematology), chronic diastolic heart failure, severe aortic stenosis status post TAVR (04/23/2020 at [facility] not on anticoagulation), COPD/restrictive lung disease with chronic hypoxic respiratory failure on home O2, carotid artery disease status post bilateral carotid endarterectomies, obstructive sleep apnea who presented to the emergency department via EMS this a.m. with complaints of severe shortness of breath and dyspnea. Patient tells me that this a.m. he woke up and needed to have a bowel movement and walked approximately 10 feet to the bathroom and had severe shortness of breath with dyspnea. Patient denies any syncope or falls. He tells me that he had a soft but formed bowel movement and then went to a chair to rest. He states he was unable to catch his breath and called for his who proceeded to call the ambulance. Patient denies any chest pain or chest pressure, abdominal pain, unintentional weight loss, melena, hematochezia or any gross bright red blood per rectum. Patient denies any nausea, vomiting. He admits to feeling slightly dizzy when he was short of breath. Patient has an extensive history of persistent iron deficiency anemia and has been evaluated by gastroenterology and hematology. Patient has had multiple endoscopies in the past with his most recent EGD being 07/24/2022 that was within normal limits. Most recent colonoscopy was 08/06/2022 and revealed sigmoid diverticuli and nonbleeding internal hemorrhoids. Patient then had a video capsule endoscopy on 08/31/2022 that did not reveal any source of bleeding but was limited by a poor prep. Per the last hematology note patient was to be scheduled for IV iron supplementation with Feraheme weekly x2 followed by monthly. Patient tells me that his last iron infusion was of last week. The hematology note also stated that they may consider erythropoietin supplementation in the future depending on his response to the IV iron. Patient was evaluated in the ED and currently has being transfused 1 unit PRBC, he was given Lasix 40mg IV x one and Prednisone 50mg and a albuterol nebulizer treatment Laboratory data reveals a CBC a white count of 2.77, hemoglobin 6.7 (6.1 on 09/18 and received a transfusion at that time), hematocrit 23.2 (20.3 on 09/18) and platelets 468. Prothrombin time 11.4 and INR 1.1. BUN 35 (46), creatinine 1.22 (1.48 LFTs are within normal limits calcium 9.7, magnesium 2.4. COVID testing negative previous labs 09/18/2022 revealed iron studies with a ferritin of 23.7, iron 18 and percentage saturation 4. B12 was 556 and folate greater than 22.3 High-sensitivity troponin is elevated at 21.6 Rectal exam revealed brown/green stool in rectum, no masses and was Hemoccult + EKG reveals atrial fibrillation and when compared with EKG of 09/18/2022 atrial fibrillation has replaced sinus rhythm. I do not see any previous documentation of patient having atrial fibrillation in the past. Allergies Allergy/AdvReac Type Severity Reaction Status Date / Time No Known Allergies Allergy Verified 10/10/22 07:48 Home Medications Medication Instructions Recorded Confirmed Type magnesium 250 mg tablet 250 mg PO DAILY 05/20/20 10/10/22 History multivitamin (Multiple Vitamins 1 tab PO DAILY 05/21/20 10/10/22 History tablet) docusate sodium 100 mg capsule 100 mg PO BID 06/10/20 10/10/22 History azelastine 137 mcg (0.1 %) nasal 2 spray intranasal DAILY #30 mL 03/10/22 10/10/22 Rx spray aerosol fluticasone fur. 100 mcg-umeclid 1 inh inhalation DAILY #3 Inhalers 03/27/22 10/10/22 Rx 62.5 mcg-vilant 25 mcg inhalat.powder (Trelegy Ellipta) potassium chloride 20 mEq 20 meq PO QAM #0 tabs 04/20/22 10/10/22 Rx tablet,extended release diphenhydramine HCl 25 mg capsule 25 mg PO HS 05/26/22 10/10/22 History (Benadryl) melatonin 3 mg capsule 6 mg PO HS 05/26/22 10/10/22 History buspirone 10 mg tablet 10 mg PO TID PRN Anxiety 07/22/22 10/10/22 History metolazone 2.5 mg tablet 2.5 mg PO DAILY #90 tabs 07/30/22 10/10/22 Rx calcium carbonate 600 mg calcium 600 mg PO DAILY 08/04/22 10/10/22 History (1,500 mg) tablet (Calcium) Oxygen Home #1 ea 08/07/22 09/28/22 Rx atorvastatin 80 mg tablet 80 mg PO QPM #90 tabs 09/29/22 10/10/22 Rx escitalopram oxalate 20 mg tablet 20 mg PO DAILY 14 days #14 tabs 09/29/22 10/10/22 Rx pantoprazole 40 mg tablet,delayed 40 mg PO DAILY #90 tabs 09/29/22 10/10/22 Rx release spironolactone 25 mg tablet 25 mg PO BID 90 days #180 tabs 09/29/22 10/10/22 Rx albuterol sulfate 90 mcg/actuation 2 puff inhalation Q6H PRN 10/01/22 10/10/22 Rx aerosol inhaler Shortness Of Breath Or Wheezing #18 grams bumetanide 2 mg tablet 4 mg PO .DAILY@0600,1200 10/10/22 10/10/22 History Past Med/Surg History Medical History Acute blood loss anemia Allergic rhinitis with postnasal drip Anxiety Aortic stenosis s/p TAVR 2019 ([facility]) CAD (coronary artery disease) Carotid stenosis, bilateral Chronic cor pulmonale Chronic diastolic (congestive) heart failure Chronic respiratory failure with hypoxia Chronic respiratory failure with hypoxia and hypercapnia on home O2 - 5-6 L COPD (chronic obstructive pulmonary disease) Elevated troponin I level Generalized weakness GERD (gastroesophageal reflux disease) History of GI bleed Hypertension Iron deficiency anemia Pulmonary hypertension Tobacco use disorder Uremia Surgical History History of left-sided carotid endarterectomy 2013 S/P appendectomy Family History Father Hypertension Mother Hypotension Breast cancer Other No family history of adverse response to anesthesia No family history of bleeding disorder Social History Smoking Status: Former smoker Tobacco Type: Cigarettes packs per day: 1; Second Hand Exposure: No; Hx Alcohol Use: Yes Alcohol type: hard liquor Alcohol Intake Frequency: Monthly or Less Alcohol Intake Frequency Comment: 1 bottle of Manny Dupree a month Hx Substance Use: No Preferred Language: Nepali Communication Ability: Effective Visual Impairment: No Limitations Apple Checker Required: No Beliefs That Will Affect Care: None marital status: Current Living Situation: Family Current Living Situation Comment: home with , her son and her grandson current occupational status: retired Other Information That Helps Us Care for You: No Feels Safe at Home: Yes Safety Concerns: Feels Safe At This Time Assistive Devices: Cane, CPAP, Denture - Upper, Denture - Lower, Oxygen - Continuous and Walker Review of Systems Constitutional: no fever, no chills, no weight loss and no insomnia Respiratory: + dyspnea; no cough, no hemoptysis and no wheezing Cardiovascular: + dyspnea on exertion and + lightheadedness; no chest pain, no chest pain with activity, no palpitations, no syncope and no calf pain Gastrointestinal: + diarrhea/loose stools; no abdominal pain, no nausea, no vomiting, no coffee ground emesis, no change in stools and no melena Genitourinary: no dysuria, no hematuria or no flank pain Musculoskeletal: no back pain, no neck pain and no body aches Integumentary: no rash, no lesions and no wounds Hematologic / Lymphatic: no easy bleeding, no easy bruising, no night sweats and no unexplained weight loss Physical Exam Constitutional: well developed, well nourished and + overweight Eyes: PERRL and reactive pupils conjunctiva pallor ENMT: external ear and nose normal, oropharynx normal Neck: trachea midline, no thyromegaly Respiratory: normal respiratory effort, + labored breathing and able to speak in complete sentences labored breathing if standing, but normal at rest in recliner few crackles at bases Cardiovascular: Rate/Rhythm: + irregularly irregular Extremities: normal capillary refill and + edema; no calf tenderness Gastrointestinal (Abdomen): Inspection/Auscultation: normal bowel sounds obese and nontender rectal exam with green/brown soft stool in rectum, no masses and Hemoccult + Skin: + pallor Neurologic: patellar DTR's 2+ bilat, sensation intact and PERRL, EOMI, accommodation nl, no face palsy, no dysarthria Psychiatric: A+Ox3, euthymic affect Results & Data Results & Data ([facility]) Vital Signs (Past 12 Hours) Vital Signs Temp Pulse Pulse Resp BP BP Pulse Ox 10/10/22 08:25 36.9 C 82 22 111/49 L 98 10/10/22 08:00 94 H 14 10/10/22 08:00 108/51 L 92 10/10/22 07:30 74 19 98 10/10/22 07:30 135/58 L 10/10/22 06:30 92 H 19 129/67 92 10/10/22 06:17 10/10/22 06:17 10/10/22 06:07 37.4 C 86 29 H 132/43 L 95 O2 Del Method O2 Flow Rate 10/10/22 08:25 5 10/10/22 08:00 10/10/22 08:00 Nasal Cannula 5 10/10/22 07:30 10/10/22 07:30 10/10/22 06:30 Nasal Cannula 5 10/10/22 06:17 Nasal Cannula 5 10/10/22 06:17 5 10/10/22 06:07 Nasal Cannula 5 Laboratory Results Laboratory Results - last 24 hr 10/10/22 10/10/22 10/10/22 06:12 06:12 06:12 WBC 10.24 RBC 2.77 L Hgb 6.7 L* Hct 23.2 L MCV 83.8 MCH 24.2 L MCHC 28.9 L RDW Std Deviation 59.0 H RDW Coeff of [place] 21.2 H Plt Count 468 H MPV 9.6 Immature Gran % (Auto) 0.5 Neut % (Auto) 86.9 Lymph % (Auto) 2.9 [place] % (Auto) 8.4 Eos % (Auto) 0.7 Baso % (Auto) 0.6 Neut # (Auto) 8.90 H Lymph # (Auto) 0.30 L [place] # (Auto) 0.86 H Eos # (Auto) 0.07 Baso # (Auto) 0.06 Immature Gran # (Auto) 0.05 H Polychromasia 1+ Anisocytosis Present PT INR APTT PTT Ratio VBG pH VBG pCO2 VBG pO2 VBG HCO3 VBG O2 Saturation VBG Base Excess Sodium 140 Potassium 4.1 Chloride 95 L Carbon Dioxide 39 H Anion Gap 6 BUN 35 H Creatinine 1.22 Est Cr Clr Drug Dosing 57.0 Est GFR ( Amer) 65.0 Est GFR (Non-Af Amer) 56.0 BUN/Creatinine Ratio 28.7 H Glucose 170 H Calcium 9.7 Magnesium Total Bilirubin 0.4 AST 19 ALT 14 Alkaline Phosphatase 76 Troponin I High Sens 21.6 H B-Natriuretic Peptide 367 H Total Protein 7.0 Albumin 3.9 Globulin 3.1 Albumin/Globulin Ratio 1.3 SARS-CoV-2, RNA, NAAT Blood Type Antibody Screen Crossmatch 10/10/22 10/10/22 10/10/22 06:12 06:48 06:48 WBC RBC Hgb Hct MCV MCH MCHC RDW Std Deviation RDW Coeff of [place] Plt Count MPV Immature Gran % (Auto) Neut % (Auto) Lymph % (Auto) [place] % (Auto) Eos % (Auto) Baso % (Auto) Neut # (Auto) Lymph # (Auto) [place] # (Auto) Eos # (Auto) Baso # (Auto) Immature Gran # (Auto) Polychromasia Anisocytosis PT 11.4 Cancelled INR 1.1 Cancelled APTT 28.3 Cancelled PTT Ratio 1.0 Cancelled VBG pH VBG pCO2 VBG pO2 VBG HCO3 VBG O2 Saturation VBG Base Excess Sodium Potassium Chloride Carbon Dioxide Anion Gap BUN Creatinine Est Cr Clr Drug Dosing Est GFR ( Amer) Est GFR (Non-Af Amer) BUN/Creatinine Ratio Glucose Calcium Magnesium 2.4 Total Bilirubin AST ALT Alkaline Phosphatase Troponin I High Sens B-Natriuretic Peptide Total Protein Albumin Globulin Albumin/Globulin Ratio SARS-CoV-2, RNA, NAAT Blood Type Antibody Screen Crossmatch 10/10/22 10/10/22 10/10/22 06:56 06:56 07:07 WBC RBC Hgb Hct MCV MCH MCHC RDW Std Deviation RDW Coeff of [place] Plt Count MPV Immature Gran % (Auto) Neut % (Auto) Lymph % (Auto) [place] % (Auto) Eos % (Auto) Baso % (Auto) Neut # (Auto) Lymph # (Auto) [place] # (Auto) Eos # (Auto) Baso # (Auto) Immature Gran # (Auto) Polychromasia Anisocytosis PT INR APTT PTT Ratio VBG pH 7.40 VBG pCO2 71 H VBG pO2 35 VBG HCO3 44 VBG O2 Saturation < 60.0 VBG Base Excess 15.5 Sodium Potassium Chloride Carbon Dioxide Anion Gap BUN Creatinine Est Cr Clr Drug Dosing Est GFR ( Amer) Est GFR (Non-Af Amer) BUN/Creatinine Ratio Glucose Calcium Magnesium Total Bilirubin AST ALT Alkaline Phosphatase Troponin I High Sens B-Natriuretic Peptide Total Protein Albumin Globulin Albumin/Globulin Ratio SARS-CoV-2, RNA, NAAT NEGATIVE Blood Type O Positive Antibody Screen NEGATIVE Crossmatch See Detail Diagnostic Findings Chest X-Ray 10/10/22 06:03 XR chest 1V portable CLINICAL HISTORY: Shortness of breath. COMPARISON STUDY: Chest CT May 19, 2022. Chest radiograph July 22, 2022. FINDINGS: Prosthetic aortic valve is noted. There is no pneumothorax. Small to moderate left and small right pleural effusions have progressed. Bibasilar opacities have increased. Pulmonary edema has developed. Cardiomegaly is unchanged. IMPRESSION: 1. Interval development of pulmonary edema. 2. Increase in small to moderate left and small right pleural effusions with bibasilar opacities. ACT 112: Negative or not required by law. Electronically signed by: Anjum Chaudhry M.D. 10/10/2022 6:41 AM ECG Additional Comments: Atrial fibrillation Non-specific intra-ventricular conduction block Abnormal ECG When compared with ECG of 18-SEP-2022 15:20, Atrial fibrillation has replaced Sinus rhythm Code Status & VTE Plan Code Status Patient wishes to be Full code Supervising Physician Co-Signing Physician Notes Patient seen and examined at bedside. Obtained history and physical examination during face to face encounter. Reviewed above note and agree with it. Discussed plan of care with Gaetano WILLINGHAM, and patient. Patient admitted for GI bleed, likely from AVM that has not been found as of yet. May need to be anticoagulatd as patient has atrial fib. however will likely hold as patient is having recurrent GI bleed. will await input from Cardio and GI. PG Care Time/CCT Total # of Minutes Spent Total Time Spent with Patient: Total time spent is greater than 50% in coordination of care (as documented) at patient's floor/unit and/or counseling patient: Coding Level of Care Code 67511 Initial Inpt Care Lvl 3 Diagnoses Atrial fibrillation I48.91 Atrial fibrillation type: unspecified Anemia D64.9 Anemia type: unspecified type Chronic respiratory failure with hypoxia and hypercapnia J96.11; J96.12 Chronic diastolic (congestive) heart failure I50.32 Elevated troponin I level R77.8 Acute exacerbation of chronic obstructive pulmonary disease J44.1 Hypertension I10 Dyslipidemia E78.5 Time Spent (min) 50 (1) Anemia Anemia type: unspecified type Qualified Code(s): D64.9 - Anemia, unspecified (2) Atrial fibrillation Atrial fibrillation type: unspecified Qualified Code(s): I48.91 - Unspecified atrial fibrillation
[2022-10-10 09:27] LABS: INR 1.1 (0.9-1.1); Partial Thromboplastin Time 28.3 Seconds (21.0-31.0); Prothrombin Time 11.4 Seconds (9.0-12.0)
[2022-10-10] MEDS ORDERED: busPIRone 5 MG TAB PO PRN (10:53)
[2022-10-10 11:39] LABS: Ferritin 74.5 ng/ml (8-388); Unsaturated Iron Binding Cap 347 mcg/dl (155-355)
[2022-10-10 12:52] LABS: Troponin I High Sensitivity 43.2 pg/ml (0-20)
[2022-10-10] MEDS: POTASSIUM CHLORIDE CRTAB 20 MEQ TABCR PO SCH (14:30)
[2022-10-10] MEDS: PANTOprazole 40 MG TAB PO SCH (14:30)
[2022-10-10] MEDS: BUMETANIDE 1 MG TAB PO SCH (14:30)
[2022-10-10 15:48] LABS: Hemoglobin 7.7 g/dl (14.0-18.0); Mean Corpuscular Hgb Conc 29.6 g/dL (32.0-36.0); Mean Corpuscular Volume 84.4 fL (80.0-100.0); Mean Platelet Volume 9.8 fL (9.4-12.4); Platelet Count 474 K/uL (130-400); RDW Coefficient of Variation 20.8 % (11.5-14.5); RDW Standard Deviation 57.6 fL (36.4-46.3); Red Blood Count 3.08 M/uL (4.63-6.08); White Blood Count 6.97 K/ul (4.8-10.8)
[2022-10-10] MEDS: UMECLIDINIUM/VILANTEROL 62.5/25MCG 7 PUFFS/INHALER INH SCH (15:56)
[2022-10-10] MEDS: FLUTICASONE FUROATE 100MCG 14 PUFFS/INHALER INH SCH (15:56)
[2022-10-10 16:14] LABS: BUN Creatinine Ratio 27.9 (10-20); Calcium 10.2 mg/dl (8.5-10.1); Creatinine Clr Calc Pharmacy 61.9 ml/min; Est GFR (African American) 72.8 ml/min; Est GFR (Non-African American) 62.8 ml/min; Potassium 4.8 mmol/L (3.5-5.1)
[2022-10-10 16:16] LABS: Troponin I High Sensitivity 45.9 pg/ml (0-20)
[2022-10-10] MEDS ORDERED: MELATONIN 3 MG TAB PO PRN (16:26)
[2022-10-10] MEDS: SPIRONOLACTONE 25 MG TAB PO SCH (21:03)
[2022-10-10] MEDS: ATORVASTATIN 40 MG TAB PO SCH (21:03)
--- NOTE | 2022-10-10 22:43 | XCELERA ---
[id number]
[2022-10-11] MEDS: BUMETANIDE 1 MG TAB PO SCH ×2 (06:09→11:50)
[2022-10-11 06:31] LABS: Hematocrit (blood only) 26.6 % (40.1-51.0); Hemoglobin 7.7 g/dl (14.0-18.0); Mean Corpuscular Hemoglobin 24.8 pg (25.0-34.0); Mean Corpuscular Hgb Conc 28.9 g/dL (32.0-36.0); Mean Corpuscular Volume 85.8 fL (80.0-100.0); Mean Platelet Volume 9.9 fL (9.4-12.4); Nucleated RBC # (auto) 0.02 K/uL (0-0); Nucleated RBC % (auto) 0.3 %; Platelet Count 461 K/uL (130-400); RDW Standard Deviation 63.1 fL (36.4-46.3); White Blood Count 7.07 K/ul (4.8-10.8)
[2022-10-11 07:10] LABS: Calcium 10.2 mg/dl (8.5-10.1); Creatinine Clr Calc Pharmacy 57.6 ml/min; Est GFR (African American) 66.3 ml/min; Est GFR (Non-African American) 57.2 ml/min; Magnesium 2.4 mg/dl (1.7-2.4); Potassium 4.4 mmol/L (3.5-5.1)
--- NOTE | 2022-10-11 07:50 | Gastrointestinal Consultation ---
Date of Consultation October 11, 2022 Assessment & Plan (1) Anemia: 77 yo male with CAD/CHF, lung disease requiring chronic O2 and chronic iron deficiency anemia who has had endoscopic and VCE work up recently which were negative for GI bleeding. New AF this admission and hgb of 6.7 without melena or hematochezia. Hematology following as outpatient as well. Patient does not want any further endoscopic evaluations. Can consider a repeat EGD/enteroscopy if he develops melena or drop again in H/H. Otherwise would continue with outpatient IV iron infusions. (2) Atrial fibrillation: (3) Iron deficiency anemia: (4) Chronic diastolic (congestive) heart failure: (5) Chronic respiratory failure with hypoxia and hypercapnia: History of Present Illness Reason for Consultation: anemia; hemoccult +stool Attending Physician: Miguel Tello MD History of Present Illness 77 yo male with multiple comorbidities including chronic iron deficiency anemia which has been investigated several times including most recently with EGD, colonoscopy and VCE in the last 4 months. No Gi bleeding on any of the studies. He is being followed by hematology as well and receives IV iron infusions. He is also followed by his safety intern. He presented to the ER with c/o SOB and HOOVER and hgb noted to be 6.7. Transfused and feeling well this AM. Hgb is stable at 7.7. He was noted to have new onset of AF. We are asked ot see him because he has brown stool that was tested and noted to be hemoccult positive. He denies melena, hematochezia, nausea,vomiting, abd pain. He is sitting up comfortably eating breakfast. He tells me he does not want any further endoscopies. Awaiting cardiology eval. Wants to go home today. Allergies Allergy/AdvReac Type Severity Reaction Status Date / Time No Known Allergies Allergy Verified 10/10/22 07:48 Home Medications Medication Instructions Recorded Confirmed Type magnesium 250 mg tablet 250 mg PO DAILY 05/20/20 10/10/22 History multivitamin (Multiple Vitamins 1 tab PO DAILY 05/21/20 10/10/22 History tablet) docusate sodium 100 mg capsule 100 mg PO BID 06/10/20 10/10/22 History azelastine 137 mcg (0.1 %) nasal 2 spray intranasal DAILY #30 mL 03/10/22 10/10/22 Rx spray aerosol fluticasone fur. 100 mcg-umeclid 1 inh inhalation DAILY #3 Inhalers 03/27/22 10/10/22 Rx 62.5 mcg-vilant 25 mcg inhalat.powder (Trelegy Ellipta) potassium chloride 20 mEq 20 meq PO QAM #0 tabs 04/20/22 10/10/22 Rx tablet,extended release diphenhydramine HCl 25 mg capsule 25 mg PO HS 05/26/22 10/10/22 History (Benadryl) melatonin 3 mg capsule 6 mg PO HS 05/26/22 10/10/22 History buspirone 10 mg tablet 10 mg PO TID PRN Anxiety 07/22/22 10/10/22 History metolazone 2.5 mg tablet 2.5 mg PO DAILY #90 tabs 07/30/22 10/10/22 Rx calcium carbonate 600 mg calcium 600 mg PO DAILY 08/04/22 10/10/22 History (1,500 mg) tablet (Calcium) Oxygen Home #1 ea 08/07/22 09/28/22 Rx atorvastatin 80 mg tablet 80 mg PO QPM #90 tabs 09/29/22 10/10/22 Rx escitalopram oxalate 20 mg tablet 20 mg PO DAILY 14 days #14 tabs 09/29/22 10/10/22 Rx pantoprazole 40 mg tablet,delayed 40 mg PO DAILY #90 tabs 09/29/22 10/10/22 Rx release spironolactone 25 mg tablet 25 mg PO BID 90 days #180 tabs 09/29/22 10/10/22 Rx albuterol sulfate 90 mcg/actuation 2 puff inhalation Q6H PRN 10/01/22 10/10/22 Rx aerosol inhaler Shortness Of Breath Or Wheezing #18 grams bumetanide 2 mg tablet 4 mg PO .DAILY@0600,1200 10/10/22 10/10/22 History Patient History Medical History Acute blood loss anemia Allergic rhinitis with postnasal drip Anxiety Aortic stenosis s/p TAVR 2019 ([facility]) CAD (coronary artery disease) Carotid stenosis, bilateral Chronic cor pulmonale Chronic diastolic (congestive) heart failure Chronic respiratory failure with hypoxia Chronic respiratory failure with hypoxia and hypercapnia on home O2 - 5-6 L COPD (chronic obstructive pulmonary disease) Elevated troponin I level Generalized weakness GERD (gastroesophageal reflux disease) History of GI bleed Hypertension Iron deficiency anemia Pulmonary hypertension Tobacco use disorder Uremia Surgical History History of left-sided carotid endarterectomy 2014 S/P appendectomy Family History Father Hypertension Mother Hypotension Breast cancer Other No family history of adverse response to anesthesia No family history of bleeding disorder Social History Smoking Status: Former smoker Tobacco Type: Cigarettes packs per day: 1; Second Hand Exposure: No; Hx Alcohol Use: Yes Alcohol type: hard liquor Alcohol Intake Frequency: Monthly or Less Alcohol Intake Frequency Comment: 1 bottle of Manny Dupree a month Hx Substance Use: No Preferred Language: Palestinian Communication Ability: Effective Visual Impairment: No Limitations Merchandise Presentation Associate Required: No Beliefs That Will Affect Care: None marital status: Current Living Situation: Family Current Living Situation Comment: home with , her son and her grandson current occupational status: retired Other Information That Helps Us Care for You: No Feels Safe at Home: Yes Safety Concerns: Feels Safe At This Time Assistive Devices: Cane, CPAP, Denture - Upper, Denture - Lower, Oxygen - Continuous and Walker Review of Systems Review of Systems: All systems reviewed & are unremarkable except as noted in HPI & below Physical Exam Constitutional: WD/WN, vitals as above Respiratory: normal respiratory effort, lungs clear to auscultation Cardiovascular: Rate/Rhythm: + irregularly irregular Gastrointestinal (Abdomen): normal bowel sounds, soft, nontender, no hepatosplenomegaly Results & Data ([facility]) Vital Signs (Past 12 Hours) Vital Signs Temp Pulse Pulse Resp BP Pulse Ox O2 Del Method 10/11/22 07:02 36.5 C 75 24 135/59 L 95 Nasal Cannula 10/11/22 03:02 36.5 C 72 18 135/62 99 Nasal Cannula 10/10/22 21:00 Nasal Cannula 10/10/22 23:43 88 10/10/22 22:33 36.8 C 75 18 118/60 99 Nasal Cannula O2 Flow Rate 10/11/22 07:02 5.0 10/11/22 03:02 5 10/10/22 21:00 5 10/10/22 23:43 10/10/22 22:33 5 (1) Anemia Anemia type: unspecified type Qualified Code(s): D64.9 - Anemia, unspecified (2) Atrial fibrillation Atrial fibrillation type: unspecified Qualified Code(s): I48.91 - Unspecified atrial fibrillation
[2022-10-11] MEDS: SPIRONOLACTONE 25 MG TAB PO SCH ×2 (08:02→22:38)
[2022-10-11] MEDS: POTASSIUM CHLORIDE CRTAB 20 MEQ TABCR PO SCH (08:02)
[2022-10-11] MEDS: MULTIVITAMIN TAB PO SCH (08:02)
[2022-10-11] MEDS: UMECLIDINIUM/VILANTEROL 62.5/25MCG 7 PUFFS/INHALER INH SCH (08:03)
[2022-10-11] MEDS: PANTOprazole 40 MG TAB PO SCH (08:03)
[2022-10-11] MEDS: metOLazone 2.5 MG TABLET PO SCH (08:03)
[2022-10-11] MEDS: ESCITALOPRAM OXALATE 20 MG TAB PO SCH (08:03)
[2022-10-11] MEDS: FLUTICASONE FUROATE 100MCG 14 PUFFS/INHALER INH SCH (08:04)
[2022-10-11] MEDS ORDERED: metOLazone 2.5 MG TABLET PO SCH (09:00)
[2022-10-11] MEDS ORDERED: SODIUM CHLORIDE 0.9% 250 ML IV PRN (11:11)
[2022-10-11] MEDS ORDERED: BUMETANIDE 2 MG in SYRINGE 0 ML IV PRN (11:11)
--- NOTE | 2022-10-11 11:20 | Hospitalist Progress Note ---
Date of Service October 11, 2022 Assessment & Plan (1) Atrial fibrillation: Plan: Need to anticoagulate is concern given current and recurrent anemia requiring 16 units packed RBCs this year alone (26 since 2018). Will repeat fecal occult blood but was positive in May despite unremarkable endoscopies and capsule endoscopy. Would favor holding off anticoagulation at present time until such time he is cleared by hematology. Appears to be rate controlled without medications at the current time. Cardiology consult pending (2) Anemia: Plan: Suspect his ongoing chronic process requiring recurrent transfusions. Recommend transfusing Hgb < 9 due to recurrent anemia and chronic medical conditions - discussed with Dr Heard and agreed with transfusion parameters. Additional 1 unit packed RBC today, repeat H&H following this. Continue PPI daily Fecal occult blood (3) Chronic respiratory failure with hypoxia and hypercapnia: Plan: - Continue nasal canula O2 to keep saturation above 88% - Encourage BiPAP at night (4) Chronic diastolic (congestive) heart failure: Plan: Appears to be moderately overloaded on exam Continue metolazone, spironolactone and Bumex. Additional 2mg IV Bumex with blood transfusions. (5) Elevated troponin I level: Plan: - Stable. Demand-ischemia. (6) Acute exacerbation of chronic obstructive pulmonary disease: Plan: Ruled out Continue routine COPD medications (7) Hypertension: Plan: - continue home medications with increased Bumex as above (8) Dyslipidemia: Plan: - Continue atorvastatin 80mg PO daily Plan VTE Prophylaxis - deferred due to blood transfusion dependant anemia Diet - heart healthy, low sodium Disposition - continued admission to PCU Admission and Anticipated Discharge Date Admission Date: October 10, 2022 Subjective Patient reports feeling he is at his baseline. Shortness of breath but no worse than baseline. Palpitations on admission and still having some intermittently but says he feels these at home normally. Review of Systems Review of Systems: All systems reviewed & are unremarkable except as noted in Subjective Physical Exam Constitutional: WD/WN, vitals as above Eyes: + anicteric sclerae; normal pupil size ENMT: external ear and nose normal, oropharynx normal Respiratory: normal respiratory effort; no respiratory distress Auscultation: + diminished lung sounds (bibasal); no crackles, no rales and no wheezes Cardiovascular: Rate/Rhythm: regular rate and + irregularly irregular Heart Sounds: no murmur Extremities: normal capillary refill and + pedal edema (2+ pre-tibial) Gastrointestinal (Abdomen): normal bowel sounds, soft, nontender, no hepatosplenomegaly Musculoskeletal: no cyanosis or clubbing, extremities motor strength 5/5 Skin: no rashes, warm and dry (venous dermatitis changes only) Neurologic: moves all extremities and awake; not confused Psychiatric: A+Ox3, euthymic affect Results & Data Results & Data ([facility]) Vital Signs (Past 12 Hours) Vital Signs Temp Pulse Pulse Resp BP Pulse Ox O2 Del Method 10/11/22 08:59 Nasal Cannula 10/11/22 07:00 85 10/11/22 07:02 36.5 C 75 24 135/59 L 95 Nasal Cannula 10/11/22 03:02 36.5 C 72 18 135/62 99 Nasal Cannula 10/10/22 23:43 88 O2 Flow Rate 10/11/22 08:59 5 10/11/22 07:00 10/11/22 07:02 5.0 10/11/22 03:02 5 10/10/22 23:43 PG Care Time/CCT Total # of Minutes Spent Total Time Spent with Patient: Total time spent is greater than 50% in coordination of care (as documented) at patient's floor/unit and/or counseling patient: Coding Level of Care Code 31370 Subseq Hosp Care Lvl 2 Diagnoses Atrial fibrillation I48.91 Atrial fibrillation type: unspecified Anemia D64.9 Anemia type: unspecified type Chronic respiratory failure with hypoxia and hypercapnia J96.11; J96.12 Chronic diastolic (congestive) heart failure I50.32 Elevated troponin I level R77.8 Acute exacerbation of chronic obstructive pulmonary disease J44.1 Hypertension I10 Dyslipidemia E78.5 (1) Anemia Anemia type: unspecified type Qualified Code(s): D64.9 - Anemia, unspecified (2) Atrial fibrillation Atrial fibrillation type: unspecified Qualified Code(s): I48.91 - Unspecified atrial fibrillation
--- NOTE | 2022-10-11 18:20 | Cardiology Consultation ---
Date of Consultation October 11, 2022 Assessment & Plan (1) Atrial fibrillation: (2) Chronic heart failure with preserved ejection fraction: (3) Anemia: (4) Dyslipidemia: (5) Elevated troponin: Plan ASSESSMENT/PLAN: 1. Atrial fibrillation: Has daily palpitations chronically. Heart rate reasonably controlled valve. Apparently was with rapid ventricular response at home in the setting of profound anemia. If heart rates the, elevated otherwise, or with exertion, would recommend low-dose beta-criss. He is not anticoagulation candidate given documented GI bleeds, with heme-positive stool, and significant anemia. Could consider Watchman device in the future and discu ss this further with his primary senior interactive developer. 2. Chronic heart failure with preserved EF: Continue home dose of diuretics. He seems to be at baseline from her breathing standpoint with chronic and stable edema. May be possibly mildly hypervolemic with blood transfusion. Try to maintain that negative fluid balance. If necessary, could give a total of 5 mg of metolazone but no changes made at this time. 3. Anemia and heme-positive stool: Documented GI bleeding in the past. He does not wish to undergo any further endoscopy as per GI consultation. Receiving blood products per hospitalist service. 4. Elevated troponin: Likely due to elevated heart rate, chronic respiratory failure, and significant anemia. If not present with acute coronary syndrome. Ischemic evaluation not necessary. 5. Dyslipidemia: Continue high-intensity statin therapy. 6. Disposition: Dr. De, his primary senior interactive developer, can resume his care tomorrow if he remains hospitalized. Continue to follow with heart failure program. Patient care discussed with Dr. Tello of the primary service. Thank you for allowing me to participate in the care of your patient. Please call for any other questions or concerns. Sincerely, Jimmy Molina M.D. History of Present Illness Reason for Consultation: New onset AFib ? Need for AC w/ anemia Requesting Physician: Zoe Salter Attending Physician: Miguel Tello MD History of Present Illness Mr. Lobo is a pleasant 77-year-old gentleman with a history significant for aortic stenosis s/p TAVR (2019), mitral stenosis, CHF, COPD/restrictive lung disease, chronic respiratory failure on 5-5.5 L of supplemental O2, carotid artery stenosis s/p CEA, GI bleed (AVM), iron deficiency anemia, and prior smoking. His primary senior interactive developer is Dr. De. He also follows in the Heart failure program. He was admitted on 10/10/2022 with shortness of breath. He was found to have heme-positive stool and hemoglobin as low as 6.1. On presenting ECG, he appeared to have atrial fibrillation. He received 2 units of PRBC. He states that he woke up on the day of admission at approximately 4:15 a.m. from a deep sleep and when walking to the bathroom noted that his heart rate was 145-150 beats per minute. He felt palpitations. Heart rate improved when he sat and spoke with his . His heart rate is typically in the 70s to 80s while at rest. He states that he has had palpitations on a daily basis chronically. With blood transfusion, he has felt better. He feels back to baseline and would like to be discharged home. He has metoprolol at home to be used on an as- needed basis but states that he typically does not require such. He denies chest pain, worsening edema, melena, hematochezia, hematuria, syncope, or near-syncope. His chronic but stable edema. Review of systems: As above. Review of systems otherwise negative/unremarkable. Family history: No known premature CAD. Mother with lung cancer. Social history: He quit smoking approximately 5 years ago. Occasional alcohol. Lives at home with his . Has 2 sons. Unaccompanied in his hospital room. Allergies Allergy/AdvReac Type Severity Reaction Status Date / Time No Known Allergies Allergy Verified 10/10/22 07:48 Home Medications Medication Instructions Recorded Confirmed Type magnesium 250 mg tablet 250 mg PO DAILY 05/20/20 10/10/22 History multivitamin (Multiple Vitamins 1 tab PO DAILY 05/21/20 10/10/22 History tablet) docusate sodium 100 mg capsule 100 mg PO BID 06/10/20 10/10/22 History azelastine 137 mcg (0.1 %) nasal 2 spray intranasal DAILY #30 mL 03/10/22 10/10/22 Rx spray aerosol fluticasone fur. 100 mcg-umeclid 1 inh inhalation DAILY #3 Inhalers 03/27/22 10/10/22 Rx 62.5 mcg-vilant 25 mcg inhalat.powder (Trelegy Ellipta) potassium chloride 20 mEq 20 meq PO QAM #0 tabs 04/20/22 10/10/22 Rx tablet,extended release diphenhydramine HCl 25 mg capsule 25 mg PO HS 05/26/22 10/10/22 History (Benadryl) melatonin 3 mg capsule 6 mg PO HS 05/26/22 10/10/22 History buspirone 10 mg tablet 10 mg PO TID PRN Anxiety 07/22/22 10/10/22 History metolazone 2.5 mg tablet 2.5 mg PO DAILY #90 tabs 07/30/22 10/10/22 Rx calcium carbonate 600 mg calcium 600 mg PO DAILY 08/04/22 10/10/22 History (1,500 mg) tablet (Calcium) Oxygen Home #1 ea 08/07/22 09/28/22 Rx atorvastatin 80 mg tablet 80 mg PO QPM #90 tabs 09/29/22 10/10/22 Rx escitalopram oxalate 20 mg tablet 20 mg PO DAILY 14 days #14 tabs 09/29/22 10/10/22 Rx pantoprazole 40 mg tablet,delayed 40 mg PO DAILY #90 tabs 09/29/22 10/10/22 Rx release spironolactone 25 mg tablet 25 mg PO BID 90 days #180 tabs 09/29/22 10/10/22 Rx albuterol sulfate 90 mcg/actuation 2 puff inhalation Q6H PRN 10/01/22 10/10/22 Rx aerosol inhaler Shortness Of Breath Or Wheezing #18 grams bumetanide 2 mg tablet 4 mg PO .DAILY@0600,1200 10/10/22 10/10/22 History Patient History Medical History Acute blood loss anemia Allergic rhinitis with postnasal drip Anxiety Aortic stenosis s/p TAVR 2019 ([facility]) CAD (coronary artery disease) Carotid stenosis, bilateral Chronic cor pulmonale Chronic diastolic (congestive) heart failure Chronic heart failure with preserved ejection fraction Chronic respiratory failure with hypoxia Chronic respiratory failure with hypoxia and hypercapnia on home O2 - 5-6 L COPD (chronic obstructive pulmonary disease) Elevated troponin I level Generalized weakness GERD (gastroesophageal reflux disease) History of GI bleed Hypertension Iron deficiency anemia Pulmonary hypertension Tobacco use disorder Uremia Surgical History History of left-sided carotid endarterectomy 2014 S/P appendectomy Family History Father Hypertension Mother Hypotension Breast cancer Other No family history of adverse response to anesthesia No family history of bleeding disorder Social History Smoking Status: Former smoker Tobacco Type: Cigarettes packs per day: 1; Second Hand Exposure: No; Hx Alcohol Use: Yes Alcohol type: hard liquor Alcohol Intake Frequency: Monthly or Less Alcohol Intake Frequency Comment: 1 bottle of Manny Dupree a month Hx Substance Use: No Preferred Language: Azeri Communication Ability: Effective Visual Impairment: No Limitations Mold Burner Required: No Beliefs That Will Affect Care: None marital status: Current Living Situation: Family Current Living Situation Comment: home with , her son and her grandson current occupational status: retired Other Information That Helps Us Care for You: No Feels Safe at Home: Yes Safety Concerns: Feels Safe At This Time Assistive Devices: Cane, CPAP, Denture - Upper, Denture - Lower, Oxygen - Continuous and Walker Physical Exam Physical Exam: Gen.: No acute distress. Alert and oriented. HEENT: Anicteric sclera. Neck: No JVD. Mild hepatic jugular reflux. Normal carotid upstrokes bilaterally. Cardiac: PMI was not palpable. No ventricular heave. Irregularly irregular. Normal heart rate. Normal S1-S2. 1/6 systolic murmur. Pulmonary: Decreased breath sounds bilaterally, but otherwise clear to auscultation bilaterally without wheezes, rales, or rhonchi. Abdomen: Soft, nontender, nondistended, with normoactive bowel sounds. No bruits noted. Extremities: 2+ radial pulses bilaterally. 1+ bilateral lower extremity edema. No cyanosis. Psychiatric: Affect appears appropriate. Results & Data ([facility]) Vital Signs (Past 12 Hours) Vital Signs Temp Pulse Pulse Resp BP BP Pulse Ox 10/11/22 15:11 36.5 C 76 20 108/72 100 10/11/22 14:50 36.6 C 90 20 111/51 L 92 10/11/22 13:55 36.5 C 88 17 130/79 92 10/11/22 12:55 36.6 C 73 22 131/49 L 98 10/11/22 12:25 36.8 C 98 H 25 H 120/48 L 95 10/11/22 12:10 36.5 C 80 18 132/47 L 96 10/11/22 11:53 36.5 C 87 24 116/59 L 94 10/11/22 11:32 36.9 C 80 22 141/58 H 97 10/11/22 08:59 10/11/22 07:00 85 10/11/22 07:02 36.5 C 75 24 135/59 L 95 O2 Del Method O2 Flow Rate 10/11/22 15:11 Nasal Cannula 5.0 10/11/22 14:50 5 10/11/22 13:55 5 10/11/22 12:55 5.0 10/11/22 12:25 5 10/11/22 12:10 10/11/22 11:53 10/11/22 11:32 Nasal Cannula 5.0 10/11/22 08:59 Nasal Cannula 5 10/11/22 07:00 10/11/22 07:02 Nasal Cannula 5.0 Intake & Output 10/09/22 10/10/22 10/11/22 10/12/22 06:59 06:59 06:59 06:59 Intake Total 710 / 710 1245 / 1245 Output Total 1325 / 1325 1770 / 1770 Balance -615 / -615 -525 / -525 Weight 211 lb 3.245 oz 207 lb 14.334 oz Laboratory Results Laboratory Results - last 24 hr 10/10/22 10/11/22 10/11/22 06:56 06:05 06:05 WBC 7.07 RBC 3.10 L Hgb 7.7 L Hct 26.6 L MCV 85.8 MCH 24.8 L MCHC 28.9 L RDW Std Deviation 63.1 H RDW Coeff of Vesta 22.0 H Plt Count 461 H MPV 9.9 Absolute Nucleated RBC 0.02 H Nucleated RBC % (auto) 0.3 Sodium 139 Potassium 4.4 Chloride 93 L Carbon Dioxide 44 H* Anion Gap 2 L BUN 36 H Creatinine 1.20 Est Cr Clr Drug Dosing 57.6 Est GFR ( Amer) 66.3 Est GFR (Non-Af Amer) 57.2 BUN/Creatinine Ratio 30.0 H Glucose 121 H Calcium 10.2 H Magnesium 2.4 TSH Blood Type O Positive Antibody Screen NEGATIVE Crossmatch See Detail 10/11/22 06:05 WBC RBC Hgb Hct MCV MCH MCHC RDW Std Deviation RDW Coeff of Vesta Plt Count MPV Absolute Nucleated RBC Nucleated RBC % (auto) Sodium Potassium Chloride Carbon Dioxide Anion Gap BUN Creatinine Est Cr Clr Drug Dosing Est GFR ( Amer) Est GFR (Non-Af Amer) BUN/Creatinine Ratio Glucose Calcium Magnesium TSH 2.398 Blood Type Antibody Screen Crossmatch Diagnostic Findings Telemetry personally reviewed: Atrial fibrillation with normal heart rate. ECG personally reviewed: ECG 10/10/2022 at 6:07 a.m.: AFib 81 beats per minute. IVCB. Echo 10/10/2022: LVEF 50-55%. Mildly dilated LV. Moderate left atrial dilation. Appropriately functioning TAVR. Severe MAC. Mild to moderate MS. Mild MR. RVSP 53. Chest x-ray 10/10/2022: Pleural effusions. Medications Administered Current Inpatient Medications Atorvastatin Calcium (Atorvastatin 40 Mg Tab) 80 mg PO QPM [facility] Stop: 11/09/22 20:59 Last Admin: 10/10/22 21:03 Dose: 80 mg Bumetanide (Bumetanide 1 Mg Tab) 4 mg PO DAILY@0600,1200 [facility] Stop: 11/09/22 13:29 Last Admin: 10/11/22 11:50 Dose: 4 mg Buspirone HCl (Buspirone 5 Mg Tab) 10 mg PO TID PRN PRN Reason: Anxiety Stop: 11/09/22 10:52 Escitalopram Oxalate (Escitalopram Oxalate 20 Mg Tab) 20 mg PO DAILY [facility] Stop: 11/10/22 08:59 Last Admin: 10/11/22 08:03 Dose: 20 mg Fluticasone Furoate (Fluticasone Furoate 100mcg 14 Puffs/Inhaler) 1 puffs INH DAILY [facility] Stop: 11/09/22 13:29 Last Admin: 10/11/22 08:04 Dose: 1 puffs Sodium Chloride (Nss) 250 mls @ 15 mls/hr IV .[id number] PRN PRN Reason: For Transfusion Duration Stop: 10/11/22 21:13 Bumetanide 2 mg/ Syringe 8 mls @ 4 mls/min IV UD PRN PRN Reason: before blood transufsion Stop: 11/10/22 11:10 Last Admin: 10/11/22 12:00 Dose: 4 mls/min Melatonin (Melatonin 3 Mg Tab) 3 mg PO HS PRN PRN Reason: Sleep Stop: 11/09/22 16:25 Metolazone (Metolazone 2.5 Mg Tablet) 2.5 mg PO DAILY@0730 [facility] Stop: 11/10/22 07:34 Last Admin: 10/11/22 08:03 Dose: 2.5 mg Multivitamins (Multivitamin Tab) 1 tab PO DAILY [facility] Stop: 11/10/22 08:59 Last Admin: 10/11/22 08:02 Dose: 1 tab Pantoprazole Sodium (Pantoprazole 40 Mg Tab) 40 mg PO DAILY [facility] Stop: 11/09/22 13:14 Last Admin: 10/11/22 08:03 Dose: 40 mg Potassium Chloride (Potassium Chloride Crtab 20 Meq Tabcr) 20 meq PO QAM [facility] Stop: 11/09/22 13:29 Last Admin: 10/11/22 08:02 Dose: 20 meq Spironolactone (Spironolactone 25 Mg Tab) 25 mg PO BID [facility] Stop: 11/09/22 20:59 Last Admin: 10/11/22 08:02 Dose: 25 mg Umeclidinium/Vilanterol (Umeclidinium/Vilanterol 62.5/25mcg 7 Puffs/Inhaler) 1 puffs INH DAILY [facility] Stop: 11/09/22 13:29 Last Admin: 10/11/22 08:03 Dose: 1 puffs PG Care Time/CCT Total # of Minutes Spent Total Time Spent with Patient: Total time spent is greater than 50% in coordination of care (as documented) at patient's floor/unit and/or counseling patient: Coding Level of Care Code 99311 Initial Inpt Care Lvl 3 Diagnoses Atrial fibrillation I48.91 Atrial fibrillation type: unspecified Chronic heart failure with preserved ejection fraction I50.32 Anemia D64.9 Anemia type: unspecified type Dyslipidemia E78.5 Elevated troponin R77.8 (1) Atrial fibrillation Atrial fibrillation type: unspecified Qualified Code(s): I48.91 - Unspecified atrial fibrillation (2) Anemia Anemia type: unspecified type Qualified Code(s): D64.9 - Anemia, unspecified
--- NOTE | 2022-10-11 18:21 | Electrocardiogram Report ---
Test Reason : Blood Pressure : / mmHG Vent. Rate : 081 BPM Atrial Rate : 076 BPM P-R Int : 000 ms QRS Dur : 128 ms QT Int : 378 ms P-R-T Axes : 000 -22 036 degrees QTc Int : 439 ms Atrial fibrillation Non-specific intra-ventricular conduction block Abnormal ECG When compared with ECG of 18-SEP-2022 15:20, Atrial fibrillation has replaced Sinus rhythm Confirmed by Isidoro Molina ([id number]) on 10/11/2022 6:20:36 PM Referred By: Confirmed By:Isidoro Molina
--- NOTE | 2022-10-11 18:23 | Electrocardiogram Report ---
Test Reason : Blood Pressure : / mmHG Vent. Rate : 080 BPM Atrial Rate : 080 BPM P-R Int : 326 ms QRS Dur : 120 ms QT Int : 394 ms P-R-T Axes : 092 -35 051 degrees QTc Int : 454 ms Poor data quality, interpretation may be adversely affected Probable Atrial fibrillation Left axis deviation Non-specific intra-ventricular conduction block Abnormal ECG When compared with ECG of 10-OCT-2022 06:07, No significant change Confirmed by Isidoro Molina ([id number]) on 10/11/2022 6:22:49 PM Referred By: REFERRED SELF Confirmed By:Isidoro Molina
[2022-10-11 18:45] LABS: Hematocrit (blood only) 30.5 % (40.1-51.0)
[2022-10-11] MEDS: ATORVASTATIN 40 MG TAB PO SCH (22:39)
[2022-10-12] MEDS: BUMETANIDE 1 MG TAB PO SCH ×2 (06:20→12:48)
[2022-10-12 06:57] LABS: Hematocrit (blood only) 30.2 % (40.1-51.0); Hemoglobin 8.9 g/dl (14.0-18.0); Mean Corpuscular Hemoglobin 25.4 pg (25.0-34.0); Mean Corpuscular Hgb Conc 29.5 g/dL (32.0-36.0); Mean Corpuscular Volume 86.3 fL (80.0-100.0); Mean Platelet Volume 9.5 fL (9.4-12.4); Platelet Count 409 K/uL (130-400); RDW Coefficient of Variation 21.6 % (11.5-14.5); RDW Standard Deviation 65.6 fL (36.4-46.3); White Blood Count 8.18 K/ul (4.8-10.8)
[2022-10-12 07:35] LABS: BUN Creatinine Ratio 28.1 (10-20); Calcium 10.2 mg/dl (8.5-10.1); Creatinine Clr Calc Pharmacy 53.4 ml/min; Est GFR (African American) 61.3 ml/min; Est GFR (Non-African American) 52.9 ml/min; Magnesium 2.2 mg/dl (1.7-2.4); Potassium 4.3 mmol/L (3.5-5.1)
[2022-10-12] MEDS: metOLazone 2.5 MG TABLET PO SCH (08:48)
[2022-10-12] MEDS: UMECLIDINIUM/VILANTEROL 62.5/25MCG 7 PUFFS/INHALER INH SCH (08:49)
[2022-10-12] MEDS: SPIRONOLACTONE 25 MG TAB PO SCH (08:49)
[2022-10-12] MEDS: PANTOprazole 40 MG TAB PO SCH (08:50)
[2022-10-12] MEDS: POTASSIUM CHLORIDE CRTAB 20 MEQ TABCR PO SCH (08:50)
[2022-10-12] MEDS: MULTIVITAMIN TAB PO SCH (08:50)
[2022-10-12] MEDS: FLUTICASONE FUROATE 100MCG 14 PUFFS/INHALER INH SCH (08:50)
[2022-10-12] MEDS: ESCITALOPRAM OXALATE 20 MG TAB PO SCH (10:25)
--- NOTE | 2022-10-12 10:37 | Discharge Summary ---
Date of Service October 12, 2022 Admission HPI Per Admitting Provider This is a 77-year-old male with an extensive past medical history including persistent iron deficiency anemia/anemia of chronic disease that has required multiple transfusions and IV iron infusions (renal disease and following with hematology), chronic diastolic heart failure, severe aortic stenosis status post TAVR (04/23/2020 at [facility] not on anticoagulation), COPD/restrictive lung disease with chronic hypoxic respiratory failure on home O2, carotid artery disease status post bilateral carotid endarterectomies, obstructive sleep apnea who presented to the emergency department via EMS this a.m. with complaints of severe shortness of breath and dyspnea. Patient tells me that this a.m. he woke up and needed to have a bowel movement and walked approximately 10 feet to the bathroom and had severe shortness of breath with dyspnea. Patient denies any syncope or falls. He tells me that he had a soft but formed bowel movement and then went to a chair to rest. He states he was unable to catch his breath and called for his who proceeded to call the ambulance. Patient denies any chest pain or chest pressure, abdominal pain, unintentional weight loss, melena, hematochezia or any gross bright red blood per rectum. Patient denies any nausea, vomiting. He admits to feeling slightly dizzy when he was short of breath. Patient has an extensive history of persistent iron deficiency anemia and has b een evaluated by gastroenterology and hematology. Patient has had multiple endoscopies in the past with his most recent EGD being 07/24/2022 that was within normal limits. Most recent colonoscopy was 08/06/2022 and revealed sigmoid diverticuli and nonbleeding internal hemorrhoids. Patient then had a video capsule endoscopy on 08/31/2022 that did not reveal any source of bleeding but was limited by a poor prep. Per the last hematology note patient was to be scheduled for IV iron supplementation with Feraheme weekly x2 followed by monthly. Patient tells me that his last iron infusion was of last week. The hematology note also stated that they may consider erythropoietin supplementation in the future depending on his response to the IV iron. Patient was evaluated in the ED and currently has being transfused 1 unit PRBC, he was given Lasix 40mg IV x one and Prednisone 50mg and a albuterol nebulizer treatment Laboratory data reveals a CBC a white count of 2.77, hemoglobin 6.7 (6.1 on 09/18 and received a transfusion at that time), hematocrit 23.2 (20.3 on 09/18) and platelets 468. Prothrombin time 11.4 and INR 1.1. BUN 35 (46), creatinine 1.22 (1.48 LFTs are within normal limits calcium 9.7, magnesium 2.4. COVID testing negative previous labs 09/18/2022 revealed iron studies with a ferritin of 23.7, iron 18 and percentage saturation 4. B12 was 556 and folate greater than 22.3 High-sensitivity troponin is elevated at 21.6 Rectal exam revealed brown/green stool in rectum, no masses and was Hemoccult + EKG reveals atrial fibrillation and when compared with EKG of 09/18/2022 atrial fibrillation has replaced sinus rhythm. I do not see any previous documentation of patient having atrial fibrillation in the past. Principal Diagnosis Acute on chronic anemia Atrial fibrillation with rapid ventricular rate Discharge Exam Constitutional WD/WN, vitals as above Eyes + anicteric sclerae; normal pupil size ENMT external ear and nose normal, oropharynx normal Respiratory normal respiratory effort; no respiratory distress Auscultation: + diminished lung sounds (bibasal); no crackles, no rales and no wheezes Cardiovascular Rate/Rhythm: regular rate and + irregularly irregular Heart Sounds: no murmur Extremities: normal capillary refill and + pedal edema (2+ pre-tibial) Gastrointestinal (Abdomen) normal bowel sounds, soft, nontender, no hepatosplenomegaly Musculoskeletal no cyanosis or clubbing, extremities motor strength 5/5 Skin no rashes, warm and dry (venous dermatitis changes only) Neurologic moves all extremities and awake; not confused Psychiatric A+Ox3, euthymic affect Discharge Data Allergies Allergy/AdvReac Type Severity Reaction Status Date / Time No Known Allergies Allergy Verified 10/10/22 07:48 Consultations 10/10/22 08:10 ED Decision to Admit Stat 10/10/22 11:12 Consult Cardiology Routine Consult Gastroenterology Routine Hospital Course (1) Atrial fibrillation: Richard Lobo is a 77 year old male admitted to [facility] from October 10 - 2021 due to shortness of breath. He was diagnosed with new onset atrial fibrillation with rapid ventricular rate and acute blood loss anemia. He was treated with 2 blood transfusions which helped his heart rate and no rate controlling medications were recommended. Since he is required 16 units of packed red blood cells in the last year anticoagulation was not recommended. Calcium supplementation was discontinued due to elevated levels. Recommended avoiding sedating medications for sleep including diphenhydramine therefore this has been discontinued. He is on his baseline oxygen requirement with 5LPM O2 at rest and 8 LPM O2 on exertion. No change to his usual diuretic regimen on discharge. (2) Anemia: (3) Chronic respiratory failure with hypoxia and hypercapnia: (4) Chronic diastolic (congestive) heart failure: (5) Elevated troponin I level: (6) Acute exacerbation of chronic obstructive pulmonary disease: (7) Hypertension: (8) Dyslipidemia: Total Time Total Time Spent Total Time Spent (In Minutes): 40 Discharge Plan Discharge Items Patient Disposition: Home - Self-Care Reason For Visit: SOB/DYSPNEA Discharge Diagnosis: Acute on chronic anemia Atrial fibrillation with rapid ventricular rate Activity: Resume your previous activity Non-emergency contact: Primary Care Provider Call non-emergency contact if: you have any medication questions and your symptoms worsen Follow-up/Referrals: Eric Westbrook DO [Primary Care Provider] - 10/21/22 1:00 pm Diet: Heart Healthy and Low Sodium (2gm) Addtl Attending Provider Instructions: You were admitted to [facility] from October 10 - 2021 due to shortness of breath. You were diagnosed with atrial fibrillation with rapid ventricular rate and acute blood loss anemia. You were treated with 2 blood transfusions which helped your heart rate and no rate controlling medications were recommended. Atrial fibrillation increases your stroke risk however anticoagulation is not recommended due to your repeated need for blood transfusions. Please continue to follow up with hematology for your anemia. Recommend stopping your calcium supplementation due to elevated calcium levels on labs. Recommend avoiding sedating medications for sleep including diphenhydramine therefore this has been discontinued. You appear to be at your baseline oxygen requirement with 5LPM O2 at rest and 8 LPM O2 on exertion. Please continue to follow up with your primary care physician regarding this. Please follow up with the heart failure clinic for ongoing diuretic management - please continue on your usual doses on discharge. Pending Studies at Discharge: No Stand-Alone Forms: [facility], Smoking Cessation Medications and DC Order Prescriptions: Continued melatonin 3 mg capsule 6 mg PO HS docusate sodium 100 mg capsule 100 mg PO BID magnesium 250 mg tablet 250 mg PO DAILY multivitamin [Multiple Vitamins] Tablet 1 tab PO DAILY escitalopram oxalate 20 mg tablet 20 mg PO DAILY 14 Days Qty: 14 0RF pantoprazole 40 mg tablet,delayed release (DR/EC) 40 mg PO DAILY Qty: 90 3RF atorvastatin 80 mg tablet 80 mg PO QPM Qty: 90 3RF spironolactone 25 mg tablet 25 mg PO BID 90 Days Qty: 180 3RF albuterol sulfate 90 mcg/actuation HFA aerosol inhaler 2 puff inhalation Q6H PRN (Reason: Shortness Of Breath Or Wheezing) Qty: 18 3RF metolazone 2.5 mg tablet 2.5 mg PO DAILY Qty: 90 3RF Trelegy Ellipta 100-62.5-25 mcg blister with device 1 inh inhalation DAILY Qty: 3 1RF azelastine 137 mcg (0.1 %) aerosol,spray 2 spray intranasal DAILY Qty: 30 3RF potassium chloride 20 mEq tablet extended release 20 meq PO QAM Qty: 0 0RF (DME) Oxygen Home Liters Per Minute See Rx Instructions .ROUTE .MEDSUPPLY Qty: 1 0RF Rx Instructions: 5 L NC O2 at rest/sleep. 8 L NC O2 with activity/ambulation. buspirone 10 mg tablet 10 mg PO TID PRN (Reason: Anxiety) bumetanide 2 mg tablet 4 mg PO .DAILY@0600,1200 Rx Instructions: 2 tablet in the AM @ 0600; 2 tab @ lunch Discontinued diphenhydramine HCl [Benadryl] 25 mg capsule 25 mg PO HS calcium carbonate [Calcium 600] 600 mg calcium (1,500 mg) Tablet 600 mg PO DAILY Discharge Orders: Discharge Order (Routine); Ordered 10/12/22 Ordered By: Miguel Tello Admission Data Admit Date/Time: 10/10/22 10:35 Attending Provider: Miguel Tello Admit Provider: Matt Barth Primary Care Provider: Eric Westbrook Other Providers: Matt Barth ; Major Patrick ; Zac Burgess ; Mj Zimmerman ; Greg Herron ; Declan Lee ; Ambrose Roman Jr ; Isidoro Molina ; Loree Mcnair ; Guadalupe Thomas ; Isrrael De ; Henrik Malhotra ; Moshe Hernandez ; Suki Herrera ; Isabelle Mendez ; Srikanth Cao ; George Simpson ; Arun Garsia ; Greg Morales V. ; Jaciel Jsoeph ; Gibson Newell ; Nava Valadez ; Debby Gomez ; Latesha Mosley ; Lorin Vargas ; Joseph Vergara ; Hermelinda Wilson ; Korey Jain ; Jasmin Moe ; El Rodriguez ; Ayo Zuñiga ; Aruna Engel ; Luna Rivers ; Aure Carr ; Ilene Edgar ; Aftab Johnson ; Remi Feliciano ; Bib Khalil ; Elisha Alston ; Didier Pérez Jr Other Interventions: Discharge Summary Assessment (RN) Last Done: 10/12/22 11:22 Coding Level of Care Code D/C DAY MANAGEMENT >30 MINS Diagnoses Atrial fibrillation I48.91 Atrial fibrillation type: unspecified Anemia D64.9 Anemia type: unspecified type Chronic respiratory failure with hypoxia and hypercapnia J96.11; J96.12 Chronic diastolic (congestive) heart failure I50.32 Elevated troponin I level R77.8 Acute exacerbation of chronic obstructive pulmonary disease J44.1 Hypertension I10 Dyslipidemia E78.5
--- NOTE | 2022-10-18 10:49 | Coding Query ---
CONGESTIVE HEART FAILURE To Promote full compliance with coding requirements relating to patient care, physician participation is requested in all cases of residential sales rep uncertainty. Please assist us with the following questions. A diagnosis of Congestive Heart Failure is documented in the patient's medical record. To accurately code this diagnosis and to compare patient severity, we ask that you specify the type of heart failure by placing an X within the parenthesis (x). * ED record documented acute on chronic diastolic heart failure. DS stated patient had overload on exam. Thanks for your help. ZORAIDA Brasher CCS SYSTOLIC HEART FAILURE ( ) Acute ( ) Chronic ( ) Acute on Chronic ( ) Rheumatic ( ) Unknown DIASTOLIC HEART FAILURE ( ) Acute (X) Chronic ( ) Acute on Chronic ( ) Rheumatic ( ) Unknown COMBINED SYSTOLIC AND DIASTOLIC HEART FAILURE ( ) Acute ( ) Chronic ( ) Acute on Chronic ( ) Rheumatic ( ) Unknown Was the CHF Present On Admission? Please check the appropriate box: ( C) Present on Admission ( ) Not Present On Admission ( ) Clinically undetermined Thank you Iron HINES
== END 2022-10-12 14:37 | disposition home or self-care (01) | DRG 812 ==
LOC: ED 05:59 → 2E 10:35 → SUATTDRO 10:35 → 2E 12:20

== ENCOUNTER 2022-11-07 14:08 | Inpatient (IN) ==
[2022-11-07] MEDS ORDERED: ALBUT/IPRATROP 3MG/0.5MG NEB 3 ML VIAL ONE (14:15)
[2022-11-07] MEDS ORDERED: ALBUT/IPRATROP 3MG/0.5MG NEB 3 ML VIAL NEB STA (14:18)
--- NOTE | 2022-11-07 14:24 | Emergency Department Note ---
History of Present Illness General Chief complaint: Respiratory Distress History of Present Illness 77-year-old male presents to the ED with a chief complaint of shortness of breath. The patient states that he is chronically short of breath and uses 5 to 6 L of oxygen at home 24 hours a day. He does use albuterol inhalers as well as a diuretic. His states that he is not compliant with his medication as he should be. He claims that he is. The patient started having shortness of breath at 10 PM last night. It worsened through the day today. His called EMS this afternoon due to trouble breathing. EMS initially on scene found his pulse ox to be 68% on his chronic home oxygen of 5 L. He does have chronic swelling of his legs but states that its not severely changed from his baseline. Denies any recent illness or fevers or cough. No chest pains. No additional complaints. EMS provided nebulizer treatment. They had him on CPAP when he first arrived. Home Medications Medication Instructions Recorded Confirmed Type magnesium 250 mg tablet 250 mg PO DAILY 05/20/20 10/26/22 History multivitamin (Multiple Vitamins 1 tab PO DAILY 05/21/20 10/26/22 History tablet) docusate sodium 100 mg capsule 100 mg PO BID 06/10/20 10/26/22 History azelastine 137 mcg (0.1 %) nasal 2 spray intranasal DAILY #30 mL 03/10/22 10/26/22 Rx spray aerosol fluticasone fur. 100 mcg-umeclid 1 inh inhalation DAILY #3 Inhalers 03/27/22 10/26/22 Rx 62.5 mcg-vilant 25 mcg inhalat.powder (Trelegy Ellipta) potassium chloride 20 mEq 20 meq PO QAM #0 tabs 04/20/22 10/26/22 Rx tablet,extended release melatonin 3 mg capsule 6 mg PO HS 05/26/22 10/26/22 History buspirone 10 mg tablet 10 mg PO TID PRN Anxiety 07/22/22 10/26/22 History metolazone 2.5 mg tablet 2.5 mg PO DAILY #90 tabs 07/30/22 10/26/22 Rx Oxygen Home #1 ea 08/07/22 10/26/22 Rx atorvastatin 80 mg tablet 80 mg PO QPM #90 tabs 11/08/22 12/05/22 Rx escitalopram oxalate 20 mg tablet 20 mg PO DAILY 14 days #14 tabs 09/29/2204/12 Rx pantoprazole 40 mg tablet,delayed 40 mg PO DAILY #90 tabs 09/29/22 10/26/22 Rx release spironolactone 25 mg tablet 25 mg PO BID 90 days #180 tabs 09/29/22 10/26/22 Rx albuterol sulfate 90 mcg/actuation 2 puff inhalation Q6H PRN 10/01/22 10/26/22 Rx aerosol inhaler Shortness Of Breath Or Wheezing #18 grams bumetanide 2 mg tablet 4 mg PO .DAILY@0600,1200 10/10/22 10/26/22 History cephalexin 500 mg capsule 500 mg PO TID 7 days #21 caps 10/21/22 10/26/22 Rx Allergies Allergy/AdvReac Type Severity Reaction Status Date / Time No Known Allergies Allergy Verified 10/26/22 15:42 Past Med/Surg History Medical History Acute blood loss anemia Allergic rhinitis with postnasal drip Anxiety Aortic stenosis s/p TAVR 2020 ([facility]) CAD (coronary artery disease) Carotid stenosis, bilateral Chronic cor pulmonale Chronic diastolic (congestive) heart failure Chronic heart failure with preserved ejection fraction Chronic respiratory failure with hypoxia Chronic respiratory failure with hypoxia and hypercapnia on home O2 5L rest; 8L with activity COPD (chronic obstructive pulmonary disease) Elevated troponin I level Generalized weakness GERD (gastroesophageal reflux disease) History of GI bleed Hypertension Iron deficiency anemia Pulmonary hypertension Tobacco use disorder Uremia Surgical History History of left-sided carotid endarterectomy 2014 S/P appendectomy Family History Father Hypertension Mother Hypotension Breast cancer Other No family history of adverse response to anesthesia No family history of bleeding disorder Social History Smoking Status: Former smoker Tobacco Type: Cigarettes packs per day: 1; Second Hand Exposure: No; Hx Alcohol Use: Yes Alcohol type: hard liquor Alcohol Intake Frequency: Monthly or Less Alcohol Intake Frequency Comment: 1 bottle of Manny Dupree a month Hx Substance Use: No Preferred Language: Croatian Communication Ability: Effective Visual Impairment: No Limitations Hotbed Operator Required: No Beliefs That Will Affect Care: None marital status: Current Living Situation: Family Current Living Situation Comment: home with , her son and her grandson current occupational status: retired Feels Safe at Home: Yes Assistive Devices: Cane, CPAP, Denture - Upper, Denture - Lower, Oxygen - Continuous and Walker Review of Systems A total of 10 systems reviewed and were otherwise negative Physical Exam Vital Signs Vital Signs - 24 hr 11/07/22 14:23 11/07/22 14:22 11/07/22 14:27 Temperature 37.1 C Temperature Source Oral Pulse Rate 113 H Pulse Rate [Left Finger] 105 H Pulse Rhythm Regular Respiratory Rate 22 28 H Respiratory Effort / Characteristics Spontaneous Labored Labored Respiratory Depth Normal Shallow Respiratory Pattern Tachypnea Blood Pressure 141/59 H Blood Pressure [Right Arm] Blood Pressure Mean 86 Blood Pressure Mean [Right Arm] Blood Pressure Position Sitting Blood Pressure Position [Right Arm] Pulse Oximetry 92 79 L Oxygen Delivery Method Oxymask Nasal Cannula Oxygen Flow Rate 4 5 Sepsis Recent Fever Within 48 Hours No Sepsis New/Unexplained Change in Mental Status No Sepsis Action Taken by Nursing Physician Notified 11/07/22 14:32 11/07/22 14:32 11/07/22 14:10 Temperature Temperature Source Pulse Rate 99 H Pulse Rate [Left Finger] Pulse Rhythm Respiratory Rate 28 H Respiratory Effort / Characteristics Respiratory Depth Respiratory Pattern Blood Pressure Blood Pressure [Right Arm] Blood Pressure Mean Blood Pressure Mean [Right Arm] Blood Pressure Position Blood Pressure Position [Right Arm] Pulse Oximetry 96 97 79 L Oxygen Delivery Method Nasal Cannula Oxymask Nasal Cannula Oxygen Flow Rate 5 5 5 Sepsis Recent Fever Within 48 Hours Sepsis New/Unexplained Change in Mental Status Sepsis Action Taken by Nursing 11/07/22 14:30 11/07/22 14:52 Temperature Temperature Source Pulse Rate Pulse Rate [Left Finger] 98 H 101 H Pulse Rhythm Respiratory Rate 24 24 Respiratory Effort / Characteristics Non-Labored Non-Labored Respiratory Depth Normal Normal Respiratory Pattern Regular Blood Pressure Blood Pressure [Right Arm] 138/61 Blood Pressure Mean Blood Pressure Mean [Right Arm] 86 Blood Pressure Position Blood Pressure Position [Right Arm] Sitting Pulse Oximetry 96 98 Oxygen Delivery Method Oxymask Nasal Cannula Oxygen Flow Rate 5 5 Sepsis Recent Fever Within 48 Hours Sepsis New/Unexplained Change in Mental Status Sepsis Action Taken by Nursing CONSTITUTIONAL/VITAL SIGNS: Reviewed / noted above. GENERAL: Non-toxic in appearance. INTEGUMENTARY: Warm, dry, and [place]. HEAD: Normocephalic. EYES: without scleral icterus or trauma. ENT/OROPHARYNX: clear and moist. LYMPHADENOPATHY/NECK: Is supple without lymphadenopathy or meningismus. RESPIRATORY: Diminished to auscultation bilaterally. Mild increased work of breathing. CARDIOVASCULAR: Regular rate and rhythm. GI/ABDOMEN: Soft and nontender. No organomegaly or pulsatile mass. EXTREMITIES: Warm and well perfused. Pedal edema. NEUROLOGICAL: Intact without focal deficits. PSYCHIATRIC: normal affect. MUSCULOSKELETAL: Normally developed with good muscle tone. TRIAGE NURSING DOCUMENTATION REVIEWED. Course Administered Medications Discontinued Medications Albuterol (Albut/Ipratrop 3mg/0.5mg Neb 3 Ml Vial) Confirm Administered Dose 3 ml .ROUTE .STK-MED ONE Stop: 11/07/22 14:16 Last Admin: 11/07/22 14:22 Dose: 3 ml Documented By: PETER Albuterol (Albut/Ipratrop 3mg/0.5mg Neb 3 Ml Vial) 3 ml NEB NOW STA; Protocol Stop: 11/07/22 14:19 Last Admin: 11/07/22 14:22 Dose: Not Given Documented By: PETER Medical Decision Making Differential Diagnosis The differential was considered includes acute myocardial infarction, acute coronary syndrome, myocarditis, pericarditis, pericardial effusions /tamponad, esophageal perforation, pulmonary embolism, pneumonia, pneumothorax, c ardiomyopathy, congestive heart, anemia , COPD/asthma exacerbation. Medical Records Attestation: I reviewed the patient's medical records. Home Medications Current Medication List: was personally reviewed by me Laboratory Data Attestation: I reviewed the patient's lab results. Result diagrams: 11/07/22 14:24 11/07/22 14:24 Lab Results 11/07/22 11/07/22 11/07/22 Range/Units 14:24 14:24 14:24 WBC 9.51 (4.8-10.8) K/ul RBC 3.62 L (4.63-6.08) M/uL Hgb 9.0 L (14.0-18.0) g/dl Hct 31.0 L (40.1-51.0) % MCV 85.6 (80.0-100.0) fL MCH 24.9 L (25.0-34.0) pg MCHC 29.0 L (32.0-36.0) g/dL RDW Std Deviation 62.7 H (36.4-46.3) fL RDW Coeff of [place] 20.1 H (11.5-14.5) % Plt Count 332 (130-400) K/uL MPV 10.2 (9.4-12.4) fL Immature Gran % (Auto) 0.2 % Neut % (Auto) 85.2 % Lymph % (Auto) 4.1 % Campbell % (Auto) 9.4 % Eos % (Auto) 0.5 % Baso % (Auto) 0.6 % Neut # (Auto) 8.10 H (1.4-6.5) K/uL Lymph # (Auto) 0.39 L (1.2-3.4) K/uL Campbell # (Auto) 0.89 H (0.24-0.82) K/uL Eos # (Auto) 0.05 (0-0.50) K/uL Baso # (Auto) 0.06 (0-0.2) K/uL Immature Gran # (Auto) 0.02 (0.00-0.02) K/uL Polychromasia 1+ Hypochromasia Present Anisocytosis Present Tear Drop Cells 1+ Ovalocytes 1+ Sodium 137 (136-145) mmol/L Potassium 4.0 (3.5-5.1) mmol/L Chloride 89 L (98-107) mmol/L Carbon Dioxide 42 H* (21-32) mmol/L Anion Gap 6 (3-11) BUN 35 H (6-23) mg/dl Creatinine 1.21 (0.6-1.4) mg/dl Est Cr Clr Drug Dosing 61.1 ml/min Est GFR ( Amer) 65.6 ml/min Est GFR (Non-Af Amer) 56.6 ml/min BUN/Creatinine Ratio 28.9 H (10-20) Glucose 180 H (70-99(Fasting)) mg/dl Lactate 0.5 (0.4-2.0) mmol/L Calcium 10.2 H (8.5-10.1) mg/dl Magnesium 2.2 (1.7-2.4) mg/dl Total Bilirubin 0.5 (0.2-1.0) mg/dl Direct Bilirubin 0.2 (0-0.2) mg/dl AST 18 (13-39) U/L ALT 21 (7-52) U/L Alkaline Phosphatase 74 (34-104) U/L Troponin I High Sens 22.5 H (0-20) pg/ml Total Protein 7.2 (6.0-8.3) gm/dl Albumin 4.0 (3.4-5.0) gm/dl Procalcitonin (0-0.5) ng/ml Urine Color Urine Appearance (Clear) Urine pH (4.5-7.5) Ur Specific [place] (1.000-1.030) Urine Protein (Negative) Urine Glucose (UA) (Negative) Urine Ketones (Negative) Urine Blood (Negative) Urine Nitrite (Negative) Urine Bilirubin (Negative) Urine Urobilinogen (Negative) Ur Leukocyte Esterase (Negative) 11/07/22 11/07/22 Range/Units 14:24 14:30 WBC (4.8-10.8) K/ul RBC (4.63-6.08) M/uL Hgb (14.0-18.0) g/dl Hct (40.1-51.0) % MCV (80.0-100.0) fL MCH (25.0-34.0) pg MCHC (32.0-36.0) g/dL RDW Std Deviation (36.4-46.3) fL RDW Coeff of [place] (11.5-14.5) % Plt Count (130-400) K/uL MPV (9.4-12.4) fL Immature Gran % (Auto) % Neut % (Auto) % Lymph % (Auto) % [place] % (Auto) % Eos % (Auto) % Baso % (Auto) % Neut # (Auto) (1.4-6.5) K/uL Lymph # (Auto) (1.2-3.4) K/uL [place] # (Auto) (0.24-0.82) K/uL Eos # (Auto) (0-0.50) K/uL Baso # (Auto) (0-0.2) K/uL Immature Gran # (Auto) (0.00-0.02) K/uL Polychromasia Hypochromasia Anisocytosis Tear Drop Cells Ovalocytes Sodium (136-145) mmol/L Potassium (3.5-5.1) mmol/L Chloride (98-107) mmol/L Carbon Dioxide (21-32) mmol/L Anion Gap (3-11) BUN (6-23) mg/dl Creatinine (0.6-1.4) mg/dl Est Cr Clr Drug Dosing ml/min Est GFR ( Amer) ml/min Est GFR (Non-Af Amer) ml/min BUN/Creatinine Ratio (10-20) Glucose (70-99(Fasting)) mg/dl Lactate (0.4-2.0) mmol/L Calcium (8.5-10.1) mg/dl Magnesium (1.7-2.4) mg/dl Total Bilirubin (0.2-1.0) mg/dl Direct Bilirubin (0-0.2) mg/dl AST (13-39) U/L ALT (7-52) U/L Alkaline Phosphatase (34-104) U/L Troponin I High Sens (0-20) pg/ml Total Protein (6.0-8.3) gm/dl Albumin (3.4-5.0) gm/dl Procalcitonin < 0.05 (0-0.5) ng/ml Urine Color Yellow Urine Appearance Clear (Clear) Urine pH 7.0 (4.5-7.5) Ur Specific [place] 1.008 (1.000-1.030) Urine Protein Negative (Negative) Urine Glucose (UA) Negative (Negative) Urine Ketones Negative (Negative) Urine Blood Negative (Negative) Urine Nitrite Negative (Negative) Urine Bilirubin Negative (Negative) Urine Urobilinogen Negative (Negative) Ur Leukocyte Esterase Negative (Negative) Imaging Data Radiologist's Impression: Chest X-Ray 11/07/22 14:19 SINGLE VIEW CHEST CLINICAL HISTORY: Sepsis. FINDINGS: An AP, portable, upright chest radiograph is compared to study dated 10/10/2022 and correlated with chest CT dated 05/19/2022. The examination is degraded by portable technique and apical lordotic positioning. The heart is enlarged noting atherosclerotic calcification of the thoracic aorta. There is pulmonary vascular congestion. Emphysematous change is observed. There are small pleural effusions with bibasilar consolidation. Bilateral airspace opacities are noted. Foci proximal scarring are seen throughout both lungs. No pneumothorax is seen. The skeletal structures are osteopenic. The bony thorax is grossly intact. IMPRESSION: 1. Cardiomegaly and emphysema with pulmonary vascular congestion. 2. Bilateral airspace opacities likely represent pulmonary edema. Correlate clinically for evidence of a superimposed infectious/inflammatory pneumonitis. 3. Small pleural effusions with bibasilar consolidation. ACT 112: Negative or not required by law. Electronically signed by: Arun Christensen M.D. 11/07/2022 3:41 PM ECG Data Attestation: I personally reviewed and interpreted this ECG as follows: Additional Comments: Twelve-lead EKG: Per my interpretation shows a sinus rhythm at a rate of 110. PACs. No ST elevation. No PVCs. Normal QTC. MDM Narrative 77-year-old male presents with acute on chronic dyspnea. He was hypoxic at home on his 5 L of oxygen via nasal cannula. EMS reported his oxygen saturations in the high 70s to low 80s on his 5 L at home. EMS put him on CPAP initially and gave a DuoNeb treatment. He did seem to be somewhat improved when he arrived. Lungs are diminished on exam and his breathing appears to be slightly labored but he does not appear to be tiring. He does have pedal edema on exam. Chest x-ray suggest pulmonary edema and congestive heart failure. Exam suggest COPD exacerbation as well. His EKG shows sinus rhythm without acute ischemic man es. CBC was unremarkable. Hemoglobin is near baseline. Lactic acid is negative. Procalcitonin is negative. Urine does not show infection. Troponin is mildly elevated 22. BUN is 35. CO2 is 42. The patient received a DuoNeb treatment here in addition to this he also received some IV Lasix and IV Ativan for some anxiety. He will be seen by the hospitalist for further evaluation and care. Impression & Plan Acute exacerbation of chronic obstructive pulmonary disease, CHF (congestive heart failure), Pulmonary edema Discharge Plan Visit Data Chief Complaint: Respiratory Distress ED Provider: Joshua Ramesh Discharge Problem: Acute exacerbation of chronic obstructive pulmonary disease, CHF (congestive heart failure), Pulmonary edema Patient Disposition: Being Evaluated by Hospitalist Forms Stand Alone Forms: My [facility], [facility] Emergency Department, Important Visit Information Prescriptions Prescriptions: No Action melatonin 3 mg capsule 6 mg PO HS docusate sodium 100 mg capsule 100 mg PO BID magnesium 250 mg tablet 250 mg PO DAILY multivitamin [Multiple Vitamins] Tablet 1 tab PO DAILY escitalopram oxalate 20 mg tablet 20 mg PO DAILY 14 Days Qty: 14 0RF pantoprazole 40 mg tablet,delayed release (DR/EC) 40 mg PO DAILY Qty: 90 3RF atorvastatin 80 mg tablet 80 mg PO QPM Qty: 90 3RF spironolactone 25 mg tablet 25 mg PO BID 90 Days Qty: 180 3RF albuterol sulfate 90 mcg/actuation HFA aerosol inhaler 2 puff inhalation Q6H PRN (Reason: Shortness Of Breath Or Wheezing) Qty: 18 3RF metolazone 2.5 mg tablet 2.5 mg PO DAILY Qty: 90 3RF Trelegy Ellipta 100-62.5-25 mcg blister with device 1 inh inhalation DAILY Qty: 3 1RF azelastine 137 mcg (0.1 %) aerosol,spray 2 spray intranasal DAILY Qty: 30 3RF cephalexin 500 mg capsule 500 mg PO TID 7 Days Qty: 21 0RF potassium chloride 20 mEq tablet extended release 20 meq PO QAM Qty: 0 0RF (DME) Oxygen Home Liters Per Minute See Rx Instructions .ROUTE .MEDSUPPLY Qty: 1 0RF Rx Instructions: 5 L NC O2 at rest/sleep. 8 L NC O2 with activity/ambulation. buspirone 10 mg tablet 10 mg PO TID PRN (Reason: Anxiety) bumetanide 2 mg tablet 4 mg PO .DAILY@0600,1200 Rx Instructions: 2 tablet in the AM @ 0600; 2 tab @ lunch Referrals Referrals: Eric Westbrook DO [Primary Care Provider] -
[2022-11-07 14:53] LABS: Basophils # (auto) 0.06 K/uL (0-0.2); Basophils % (auto) 0.6 %; Eosinophils # (auto) 0.05 K/uL (0-0.50); Eosinophils % (auto) 0.5 %; Immature Granulocytes # (auto) 0.02 K/uL (0.00-0.02); Immature Granulocytes % (auto) 0.2 %; Lymphocytes # (auto) 0.39 K/uL (1.2-3.4); Lymphocytes % (auto) 4.1 %; Mean Corpuscular Hemoglobin 24.9 pg (25.0-34.0); Mean Corpuscular Volume 85.6 fL (80.0-100.0); Mean Platelet Volume 10.2 fL (9.4-12.4); Monocytes # (auto) 0.89 K/uL (0.24-0.82); Monocytes % (auto) 9.4 %; Neutrophils % (auto) 85.2 %; Platelet Count 332 K/uL (130-400); RDW Coefficient of Variation 20.1 % (11.5-14.5); RDW Standard Deviation 62.7 fL (36.4-46.3); Red Blood Count 3.62 M/uL (4.63-6.08); White Blood Count 9.51 K/ul (4.8-10.8)
[2022-11-07 14:59] LABS: Appearance Urine Clear (Clear); Bilirubin Urine Negative (Negative); Blood Urine Negative (Negative); Color Urine Yellow; Glucose Urine UA Negative (Negative); Ketones Urine Negative (Negative); Leukocyte Esterase Urine Negative (Negative); Nitrite Urine Negative (Negative); Protein Urine Negative (Negative); Specific Gravity Urine 1.008 (1.000-1.030); Urobilinogen Urine Negative (Negative)
[2022-11-07 15:17] LABS: Anisocytosis Present; Hypochromasia Present; Ovalocytes 1+; Polychromasia 1+; Tear Drop Cells 1+
[2022-11-07 15:27] LABS: BUN Creatinine Ratio 28.9 (10-20); Bilirubin Direct 0.2 mg/dl (0-0.2); Bilirubin,Total 0.5 mg/dl (0.2-1.0); Calcium 10.2 mg/dl (8.5-10.1); Creatinine Clr Calc Pharmacy 61.1 ml/min; Est GFR (African American) 65.6 ml/min; Est GFR (Non-African American) 56.6 ml/min; Magnesium 2.2 mg/dl (1.7-2.4); Total Protein 7.2 gm/dl (6.0-8.3); Troponin I High Sensitivity 22.5 pg/ml (0-20)
--- NOTE | 2022-11-07 15:43 | XRay Report ---
SINGLE VIEW CHEST CLINICAL HISTORY: Sepsis. FINDINGS: An AP, portable, upright chest radiograph is compared to study dated 10/10/2022 and correla chi with chest CT dated 05/19/2022. The examination is degraded by portable technique and apical lordo tic positioning. The heart is enlarged noting atherosclerotic calcification of the thoracic aorta. Th ere is pulmonary vascular congestion. Emphysematous change is observed. There are small pleural effus ions with bibasilar consolidation. Bilateral airspace opacities are noted. Foci proximal scarring are seen throughout both lungs. No pneumothorax is seen. The skeletal structures are osteopenic. The bon y thorax is grossly intact. IMPRESSION: 1. Cardiomegaly and emphysema with pulmonary vascular congestion. 2. Bilateral airspace opacities likely represent pulmonary edema. Correlate clinically for evidence o f a superimposed infectious/inflammatory pneumonitis. 3. Small pleural effusions with bibasilar consolidation. ACT 112: Negative or not required by law. Electronically signed by: Arun Christensen M.D. 11/07/2022 3:41 PM
[2022-11-07] MEDS ORDERED: FUROSEMIDE 40 MG/4 ML VIAL IV ONE (16:01)
[2022-11-07] MEDS ORDERED: LORazepam 2 MG/1 ML VIAL IV STA (16:01)
--- NOTE | 2022-11-07 16:34 | History & Physical Report ---
Date of Service November 07, 2022 Assessment & Plan (1) Chronic heart failure with preserved ejection fraction: Plan: Patient presents in acute respiratory failure from likely heart failure preserved ejection fraction acute exacerbation. Patient was given additional diuretics in the emergency department. He will continue on his equivalent dose of Bumex 4 mg IV twice daily low-salt diet heart failure consult following electrolytes. Patient has history of atrial fibrillation currently in sinus rhythm Patient has history of bioprosthetic arctic valve replacement 2020 last echocardiogram there was a significant issue with (October 12, 2022) the pt has chronic venous stasis changes to LE (2) Elevated troponin: Plan: Patient's troponin is mildly elevated this is less than it was previously we will trend this, most likely is demand ischemia from hypoxia (3) Chronic respiratory failure with hypoxia and hypercapnia: Plan: Patient suffers from chronic respiratory failure with oxygen at 5 L at home reportedly is slightly noncompliant with his medications and oxygen. the pt will be treated for acute exacerbation of chronic lung disease, The patient will be on intravenous Solu-Medrol 40 every 12, DuoNebs every 4 and supplemental oxygen at this time. (4) Anemia: Plan: Patient has a history of anemia current hemoglobin is 9 this appears to be his baseline (5) Anxiety and depression: Plan: Patient suffers from significant anxiety and depression. He is given lorazepam in the Emergency Department typically taking BuSpar. Per the palliative care note from November 04, 2022 there is an argument on the phone as a patient at that point time said he was not going to return to the hospital if he got ill and he had a argument with his at that time. Plan Lovenox will be used for DVT prevention History of Present Illness Primary Care Provider: Eric Westbrook, DO 77-M with chronic diastolic HF, mixed obstructive restrictive lung disease presents to the ED with a chief complaint of shortness of breath. The patient s tates that he is chronically short of breath and uses 5 to 6 L of oxygen at home 24 hours a day. He sees outpt hospice thru [facility], but is not yet on hospice. [place] [facility] [place] His states that he is not compliant with his medication/oxygen as he should be, this is also noted in palliative care note. The patient started having shortness of breath at 10 PM on the night prior to admission. It worsened through the day today. His called EMS this afternoon due to trouble breathing. EMS initially on scene found his pulse ox to be 68% on his chronic home oxygen of 5 L. He does have chronic swelling of his legs but states that its not severely changed from his baseline. Denies any recent illness or fevers or cough. No chest pains. EMS provided nebulizer treatment and transported him on CPAP IN the Er was given additional nebulizer treatments and IV lasix appears to have heart failure on initial CXR. Allergies Allergy/AdvReac Type Severity Reaction Status Date / Time No Known Allergies Allergy Verified 11/07/22 16:56 Home Medications Medication Instructions Recorded Confirmed Type multivitamin (Multiple Vitamins 1 tab PO DAILY 05/21/20 11/07/22 History tablet) docusate sodium 100 mg capsule 100 mg PO BID 06/10/20 11/07/22 History potassium chloride 20 mEq 20 meq PO QAM #0 tabs 04/20/22 11/07/22 Rx tablet,extended release melatonin 3 mg capsule 6 mg PO HS 05/26/22 11/07/22 History buspirone 10 mg tablet 10 mg PO TID PRN Anxiety 07/22/22 11/07/22 History metolazone 2.5 mg tablet 2.5 mg PO DAILY #90 tabs 07/30/22 11/07/22 Rx Oxygen Home #1 ea 08/07/22 11/07/22 Rx atorvastatin 80 mg tablet 80 mg PO QPM #90 tabs 09/29/22 11/07/22 Rx escitalopram oxalate 20 mg tablet 20 mg PO DAILY 14 days #14 tabs 09/29/22 11/07/22 Rx pantoprazole 40 mg tablet,delayed 40 mg PO DAILY #90 tabs 09/29/22 11/07/22 Rx release spironolactone 25 mg tablet 25 mg PO BID 90 days #180 tabs 09/29/22 11/07/22 Rx albuterol sulfate 90 mcg/actuation 2 puff inhalation Q6H PRN 10/01/22 11/07/22 Rx aerosol inhaler Shortness Of Breath Or Wheezing #18 grams bumetanide 2 mg tablet 4 mg PO .DAILY@0600,1200 10/10/22 11/07/22 History Past Med/Surg History Medical History Acute blood loss anemia Allergic rhinitis with postnasal drip Anxiety Aortic stenosis s/p TAVR 2019 ([facility]) CAD (coronary artery disease) Carotid stenosis, bilateral Chronic cor pulmonale Chronic diastolic (congestive) heart failure Chronic heart failure with preserved ejection fraction Chronic respiratory failure with hypoxia Chronic respiratory failure with hypoxia and hypercapnia on home O2 5L rest; 8L with activity COPD (chronic obstructive pulmonary disease) Elevated troponin I level Generalized weakness GERD (gastroesophageal reflux disease) History of GI bleed Hypertension Iron deficiency anemia Pulmonary hypertension Tobacco use disorder Uremia Surgical History History of left-sided carotid endarterectomy 2013 S/P appendectomy Family History Father Hypertension Mother Hypotension Breast cancer Other No family history of adverse response to anesthesia No family history of bleeding disorder Social History Smoking Status: Former smoker Tobacco Type: Cigarettes packs per day: 1; Second Hand Exposure: No; Hx Alcohol Use: Yes Alcohol type: hard liquor Alcohol Intake Frequency: Monthly or Less Alcohol Intake Frequency Comment: 1 bottle of Manny Dupree a month Hx Substance Use: No Preferred Language: Divehi Communication Ability: Effective Visual Impairment: No Limitations 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 Required: No Beliefs That Will Affect Care: None marital status: Current Living Situation: Family Current Living Situation Comment: home with , her son and her grandson current occupational status: retired Feels Safe at Home: Yes Assistive Devices: Cane, CPAP, Denture - Upper, Denture - Lower, Oxygen - Continuous and Walker Review of Systems Review of Systems: Mild distress and fatigue no headache, no visual changes no speech or swallowing issues no chest pain, pressure or palpitations no shortness of breath, cough or wheezes no abdominal pain, nausea or vomiting, diarrhea or constipation no dysuria, hematuria or frequency no focal joint pain or swelling no back pain, CVA tenderness or radicular pain no bruising, bleeding or rashes no focal signs of weakness or numbness or altered sensation no complaints of anxiety or depression.. Physical Exam Physical Exam: The patient appeared well nourished and normally developed. Vital signs as documented. Head exam is normocephalic atraumatic Neck is without JVD, thyromegaly, or carotid bruits. Lungs are clear to auscultation, no focal loss of breath sounds Cardiac exam, Rhythm is regular.. No murmurs, rubs or gallops. Abdominal exam reveals normal bowel sounds, soft non tender, no masses Extremities are nonedematous and both pedal pulses are present Neurologic exam is alert and oriented, no focal loss of strength or sensation Skin is without bruises or rashes Psychologically is without concerns for anxiety or depression.. Results & Data Results & Data ([facility]) Vital Signs (Past 12 Hours) Vital Signs Temp Pulse Pulse Resp BP BP Pulse Ox 11/07/22 14:52 101 H 24 98 11/07/22 14:30 98 H 24 138/61 96 11/07/22 14:10 79 L 11/07/22 14:32 97 11/07/22 14:32 99 H 28 H 96 11/07/22 14:22 98.8 F 113 H 28 H 141/59 H 79 L 11/07/22 14:23 105 H 22 92 O2 Del Method O2 Flow Rate 11/07/22 14:52 Nasal Cannula 5 11/07/22 14:30 Oxymask 5 11/07/22 14:10 Nasal Cannula 5 11/07/22 14:32 Oxymask 5 11/07/22 14:32 Nasal Cannula 5 11/07/22 14:22 Nasal Cannula 5 11/07/22 14:23 Oxymask 4 Diagnostic Findings Chest X-Ray 11/07/22 14:19 SINGLE VIEW CHEST CLINICAL HISTORY: Sepsis. FINDINGS: An AP, portable, upright chest radiograph is compared to study dated 10/10/2022 and correlated with chest CT dated 05/19/2022. The examination is degraded by portable technique and apical lordotic positioning. The heart is enlarged noting atherosclerotic calcification of the thoracic aorta. There is pulmonary vascular congestion. Emphysematous change is observed. There are small pleural effusions with bibasilar consolidation. Bilateral airspace opacities are noted. Foci proximal scarring are seen throughout both lungs. No pneumothorax is seen. The skeletal structures are osteopenic. The bony thorax is grossly intact. IMPRESSION: 1. Cardiomegaly and emphysema with pulmonary vascular congestion. 2. Bilateral airspace opacities likely represent pulmonary edema. Correlate clinically for evidence of a superimposed infectious/inflammatory pneumonitis. 3. Small pleural effusions with bibasilar consolidation. Electronically signed by: Arun Christensen M.D. 11/07/2022 3:41 PM ECG Additional Comments: Normal sinus rhythm no acute ST or T wave changes Code Status & VTE Plan VTE Prophylaxis Plan VTE Prophylaxis will be ordered: Yes PG Care Time/CCT Total # of Minutes Spent Total Time Spent with Patient: Total time spent is greater than 50% in coordination of care (as documented) at patient's floor/unit and/or counseling patient: Coding Level of Care Code 41142 Initial Inpt Care Lvl 3 Diagnoses Chronic heart failure with preserved ejection fraction I50.32 Elevated troponin R77.8 Chronic respiratory failure with hypoxia and hypercapnia J96.11; J96.12 Anemia D64.9 Anemia type: unspecified type Anxiety and depression F41.9; F32.A (1) Anemia Anemia type: unspecified type Qualified Code(s): D64.9 - Anemia, unspecified
[2022-11-07] MEDS ORDERED: ACETAMINOPHEN 325 MG TAB PO PRN (19:32)
[2022-11-07] MEDS ORDERED: ONDANSETRON INJ 2 MG/ML 2 ML VIAL IV PRN (19:32)
[2022-11-07] MEDS ORDERED: ALBUT/IPRATROP 3MG/0.5MG NEB 3 ML VIAL NEB SCH (20:00)
[2022-11-07] MEDS: ALBUT/IPRATROP 3MG/0.5MG NEB 3 ML VIAL NEB SCH (20:46)
[2022-11-07] MEDS: methylPREDNISolone 40 MG in SYRINGE 0 ML IV SCH (21:10)
[2022-11-07] MEDS: BUMETANIDE 4 MG in SYRINGE 0 ML IV SCH (21:10)
[2022-11-07] MEDS: DOCUSATE SODIUM 100 MG CAP PO SCH (21:13)
[2022-11-08] MEDS ORDERED: LORazepam 2 MG/1 ML VIAL IV STA (01:31)
[2022-11-08] MEDS ORDERED: MoRPHine SULFATE 2 MG/ML CARP IV STA (01:43)
[2022-11-08] MEDS ORDERED: LORazepam 1 MG in SYRINGE 0 ML IV ONE (01:45)
--- NOTE | 2022-11-08 02:27 | Communication Note ---
Date of Service: November 08, 2022 Received message from RN regarding patient waking up agitated, confused, and refusing to wear oxymask with saturations down to 80s. He was continually gasping and asking for help. Able to say he was in the hospital but unable to answer questions appropriately. Per RN, on the phone stated that she wants everything done. Per chart review, patient seems to be considering his goals of care and whether he pursues a more palliative approach but no decision has been made. He is pending Palliative visit in November. ABG obtained and CO2 resulted > 100. Due to him not keeping mask on, elevated CO2, and his agitation/apparent discomfort, administered Ativan 1mg IV x1 and morphine 2mg IV x1 to achieve compliance with BiPAP. He tolerated it well and has been keeping mask in place. Continue to monitor. Resident Activity Tracking Resident Involvement: Resident Care Provided Care Provided: Adult Hospital Medicine
[2022-11-08] MEDS ORDERED: LORazepam 0.5 MG in SYRINGE 0 ML IV ONE (05:45)
[2022-11-08] MEDS: ALBUT/IPRATROP 3MG/0.5MG NEB 3 ML VIAL NEB SCH ×4 (07:38→21:42)
[2022-11-08] MEDS: BUMETANIDE 4 MG in SYRINGE 0 ML IV SCH ×2 (08:37→17:09)
[2022-11-08] MEDS: methylPREDNISolone 40 MG in SYRINGE 0 ML IV SCH ×2 (08:37→20:42)
[2022-11-08] MEDS: AZELASTINE HCL 0.1% NASAL 200 SPRAYS/27,400 MCG BTL SCH (08:41)
[2022-11-08 08:58] LABS: Hematocrit (blood only) 30.5 % (40.1-51.0); Hemoglobin 8.8 g/dl (14.0-18.0); Mean Corpuscular Hgb Conc 28.9 g/dL (32.0-36.0); Mean Corpuscular Volume 86.6 fL (80.0-100.0); Platelet Count 288 K/uL (130-400); RDW Coefficient of Variation 19.9 % (11.5-14.5); RDW Standard Deviation 62.7 fL (36.4-46.3); Red Blood Count 3.52 M/uL (4.63-6.08); White Blood Count 7.22 K/ul (4.8-10.8)
[2022-11-08] MEDS ORDERED: NON-FORMULARY MEDICATION (Fluticasone-Umeclidin-Vilanter [Trelegy Ellipta] 100-62.5-25 mcg INH SCH (09:00)
[2022-11-08] MEDS: MULTIVITAMIN TAB PO SCH ×2 (09:40→10:29)
[2022-11-08] MEDS: ESCITALOPRAM OXALATE 20 MG TAB PO SCH ×2 (09:40→10:29)
[2022-11-08] MEDS: FLUTICASONE FUROATE 100MCG 14 PUFFS/INHALER INH SCH ×2 (09:40→10:32)
[2022-11-08] MEDS: PANTOprazole 40 MG TAB PO SCH ×2 (09:40→10:29)
[2022-11-08] MEDS: MAGNESIUM OXIDE 400 MG TAB PO SCH ×2 (09:40→10:29)
[2022-11-08] MEDS: DOCUSATE SODIUM 100 MG CAP PO SCH ×3 (09:40→20:33)
[2022-11-08] MEDS: UMECLIDINIUM/VILANTEROL 62.5/25MCG 7 PUFFS/INHALER INH SCH ×2 (09:41→10:32)
[2022-11-08] MEDS: POTASSIUM CHLORIDE CRTAB 20 MEQ TABCR PO SCH ×2 (09:41→10:29)
[2022-11-08] MEDS ORDERED: metOLazone 2.5 MG TABLET PO ONE (09:54)
[2022-11-08 10:07] LABS: BUN Creatinine Ratio 26.5 (10-20); Blood Urea Nitrogen 36 mg/dl (6-23); Carbon Dioxide > 45 mmol/L (21-32); Chloride 89 mmol/L (98-107); Creatinine Clr Calc Pharmacy 50.9 ml/min; Est GFR (Non-African American) 49.1 ml/min; Glucose 189 mg/dl (70-99(Fasting)); Magnesium 2.1 mg/dl (1.7-2.4); Potassium 4.2 mmol/L (3.5-5.1)
[2022-11-08 11:23] LABS: Sodium 140 mmol/L (136-145)
[2022-11-08 13:35] LABS: Carboxyhemoglobin 2.5 % THgb; Methemoglobin < 0.7 % (0.0-1.5)
--- NOTE | 2022-11-08 15:08 | Hospitalist Progress Note ---
Date of Service November 08, 2022 Assessment & Plan (1) Chronic heart failure with preserved ejection fraction: Plan: Acute on chronic HFpEF Patient presents in acute respiratory failure from likely heart failure preserved ejection fraction acute exacerbation. Patient was given additional diuretics in the emergency department. He will continue on his equivalent dose of Bumex 4 mg IV twice daily low-salt diet heart failure consult following electrolytes. Additionally add metolazone 2.5mg PO daily today, perhaps he will only need this for a few days Strict I&Os - aim negative balance 1.5-2L daily Patient has history of atrial fibrillation (was rate controlled without medication on previous hospitalizations without medications and spontaneously converted) currently in sinus rhythm Patient has history of bioprosthetic arctic valve replacement 2020 last echo cardiogram (October 12, 2022) with moderate pulmonary hypertension now suggested as new finding (2) COPD exacerbation: Plan: Chronic CO2 retention. Ideally will continue on BiPAP especially while sleeping or napping as he can tolerate however significant compliance issues in the past. Appropriately under palliative care as outpatient Low suspicion of COPD exacerbation as cause of his decompensation. Suspect much more likely acute HFpEF however will continue steroids and nebulkizers for now as his air entry is so poor and this is the main reason for his chronic hypoxic, hypercapnic respiratory failure. (3) Elevated troponin: Plan: Suspected demand-ischemia in setting of acute HFpEF (4) Chronic respiratory failure with hypoxia and hypercapnia: Plan: Patient suffers from chronic respiratory failure with oxygen at 5 L at home reportedly is slightly noncompliant with his medications and oxygen. Consider repeat palliative care discussion once patient is more stable (5) Anemia: Plan: Patient has a history of iron def. anemia current hemoglobin is 9 this appears to be his baseline. Consider transferrin sats once his fluid status improves to see where his current true hemoglobin stands (6) Anxiety and depression: Plan: Continue lorazepam PRN Plan VTE Prophylaxis - Lovenox 40mg SQ daily Diet - low Na Disposition - continued admission on PCU Admission and Anticipated Discharge Date Admission Date: November 07, 2022 Subjective Reportedly more awake today but very sleepy when see this morning. Much more awake in afternoon after eating. Remembers me from prior hospitalizations. Aware he needs oxygen continuously but reportedly taking it off continuously. Patient generally intolerant to BiPAP overnight so although recommended. Patient reports feeling at his baseline shortness of breath but clearly is far from this from prior occasions I have met him. Review of Systems Review of Systems: All systems reviewed & are unremarkable except as noted in Subjective Physical Exam Constitutional: well developed and + acute distress (using accessory muscules); + not well nourished Eyes: + anicteric sclerae; normal pupil size Respiratory: + respiratory distress, + labored breathing, + uses accessory muscles, + tachypneic and + prolonged expiratory phase; no audible wheezes and no stridor Auscultation: + breath sounds absent (bibasal) and + diminished lung sounds (throughout); no crackles, no rales, no rhonchi and no wheezes Cardiovascular: Rate/Rhythm: regular rhythm and + tachycardic Heart Sounds: no murmur Vessels: + JVD Extremities: normal capillary refill and + pedal edema (1+ pre-tibial, some skin wrinkling); no calf tenderness Gastrointestinal (Abdomen): normal bowel sounds, soft, nontender, no hepatosplenomegaly Skin: no rashes, warm and dry Neurologic: moves all extremities, awake and + confused (at times) Psychiatric: Orientation: alert, oriented to person and oriented to place; + not oriented to time Results & Data Results & Data ([facility]) Vital Signs (Past 12 Hours) Vital Signs Temp Pulse Pulse Resp BP Pulse Ox O2 Del Method 11/08/22 15:05 76 19 97 BiPAP 11/08/22 15:05 76 19 97 11/08/22 13:55 81 20 99 BiPAP 11/08/22 12:17 36.7 C 111 H 32 H 142/57 H 100 BiPAP 11/08/22 10:57 85 20 99 BiPAP 11/08/22 10:56 85 20 99 11/08/22 09:00 BiPAP 11/08/22 08:30 36.4 C L 97 H 19 146/63 H 97 BiPAP 11/08/22 07:39 82 21 100 11/08/22 07:38 82 21 100 BiPAP 11/08/22 03:22 36.8 C 102 H 18 139/58 L 98 BiPAP FiO2 11/08/22 15:05 30 11/08/22 15:05 30 11/08/22 13:55 35 11/08/22 12:17 50 11/08/22 10:57 35 11/08/22 10:56 35 12/18/22 09:00 35 11/08/22 08:30 11/08/22 07:39 50 11/08/22 07:38 50 11/08/22 03:22 50 PG Care Time/CCT Total # of Minutes Spent Total Time Spent with Patient: Total time spent is greater than 50% in coordination of care (as documented) at patient's floor/unit and/or counseling patient: Coding Level of Care Code 29222 Subseq Hosp Care Lvl 3 Diagnoses Chronic heart failure with preserved ejection fraction I50.32 COPD exacerbation J44.1 Elevated troponin R77.8 Chronic respiratory failure with hypoxia and hypercapnia J96.11; J96.12 Anemia D64.9 Anemia type: unspecified type Anxiety and depression F41.9; F32.A (1) Anemia Anemia type: unspecified type Qualified Code(s): D64.9 - Anemia, unspecified
[2022-11-08] MEDS: LORazepam 0.5 MG TAB PO PRN (20:31)
--- NOTE | 2022-11-09 05:17 | Electrocardiogram Report ---
Test Reason : Blood Pressure : / mmHG Vent. Rate : 110 BPM Atrial Rate : 110 BPM P-R Int : 000 ms QRS Dur : 128 ms QT Int : 366 ms P-R-T Axes : 000 -44 074 degrees QTc Int : 495 ms Poor data quality, interpretation may be adversely affected Sinus tachycardia Left axis deviation Abnormal ECG When compared with ECG of 11-OCT-2022 11:32, Sinus rhythm has replaced Atrial fibrillation Confirmed by Declan Lee ([id number]) on 11/09/2022 5:17:14 AM Referred By: Confirmed By:Declan Lee
[2022-11-09 06:21] LABS: Hematocrit (blood only) 31.6 % (40.1-51.0); Hemoglobin 9.3 g/dl (14.0-18.0); Mean Corpuscular Hemoglobin 24.9 pg (25.0-34.0); Mean Corpuscular Hgb Conc 29.4 g/dL (32.0-36.0); Mean Corpuscular Volume 84.5 fL (80.0-100.0); Mean Platelet Volume 10.2 fL (9.4-12.4); Platelet Count 343 K/uL (130-400); RDW Standard Deviation 62.2 fL (36.4-46.3); Red Blood Count 3.74 M/uL (4.63-6.08); White Blood Count 10.88 K/ul (4.8-10.8)
[2022-11-09 06:52] LABS: BUN Creatinine Ratio 39.8 (10-20); Blood Urea Nitrogen 41 mg/dl (6-23); Calcium 9.7 mg/dl (8.5-10.1); Carbon Dioxide > 45 mmol/L (21-32); Chloride 87 mmol/L (98-107); Creatinine Clr Calc Pharmacy 66.4 ml/min; Est GFR (African American) 79.7 ml/min; Est GFR (Non-African American) 68.8 ml/min; Glucose 172 mg/dl (70-99(Fasting)); Magnesium 2.3 mg/dl (1.7-2.4); Potassium 4.1 mmol/L (3.5-5.1); Sodium 139 mmol/L (136-145)
[2022-11-09] MEDS ORDERED: metOLazone 2.5 MG TABLET PO SCH (07:00)
[2022-11-09] MEDS: ALBUT/IPRATROP 3MG/0.5MG NEB 3 ML VIAL NEB SCH ×4 (07:04→19:50)
[2022-11-09] MEDS: methylPREDNISolone 40 MG in SYRINGE 0 ML IV SCH ×2 (07:34→19:31)
[2022-11-09] MEDS: BUMETANIDE 4 MG in SYRINGE 0 ML IV SCH ×2 (07:34→16:18)
[2022-11-09] MEDS: LORazepam 0.5 MG TAB PO PRN ×2 (07:34→19:30)
[2022-11-09] MEDS: PANTOprazole 40 MG TAB PO SCH (07:34)
[2022-11-09] MEDS: ESCITALOPRAM OXALATE 20 MG TAB PO SCH (07:35)
[2022-11-09] MEDS: MULTIVITAMIN TAB PO SCH (07:35)
[2022-11-09] MEDS: POTASSIUM CHLORIDE CRTAB 20 MEQ TABCR PO SCH (07:35)
[2022-11-09] MEDS: AZELASTINE HCL 0.1% NASAL 200 SPRAYS/27,400 MCG BTL SCH (07:35)
[2022-11-09] MEDS: MAGNESIUM OXIDE 400 MG TAB PO SCH (07:35)
[2022-11-09] MEDS: ENOXAPARIN INJ 40 MG/0.4 ML SYR SQ SCH (07:36)
[2022-11-09] MEDS: FLUTICASONE FUROATE 100MCG 14 PUFFS/INHALER INH SCH (07:36)
[2022-11-09] MEDS: UMECLIDINIUM/VILANTEROL 62.5/25MCG 7 PUFFS/INHALER INH SCH (07:36)
[2022-11-09] MEDS: DOCUSATE SODIUM 100 MG CAP PO SCH ×2 (07:38→19:30)
--- NOTE | 2022-11-09 08:54 | Hospitalist Progress Note ---
Date of Service November 09, 2022 Assessment & Plan (1) Chronic heart failure with preserved ejection fraction: Plan: Acute on chronic HFpEF Patient presents in acute respiratory failure from likely heart failure preserved ejection fraction acute exacerbation. Patient was given additional diuretics in the emergency department. He will continue on his equivalent dose of Bumex 4 mg IV twice daily low-salt diet heart failure consult following electrolytes. Weight is down to near his dry weight at 203 pounds Patient has history of atrial fibrillation (was rate controlled without medication on previous hospitalizations without medications and spontaneously converted) currently in sinus rhythm Patient has history of bioprosthetic arctic valve replacement 2020 last echocardiogram (October 12, 2022) with moderate pulmonary hypertension now suggested as new finding Challenging situation at times patient is refusing care at times he wants full care his and he seemed to not agree. Difficult to decide to pull in an alternative palliative care group as he is already established care with [facility] (2) COPD exacerbation: Plan: Chronic CO2 retention. Ideally will continue on BiPAP especially while sleeping or napping as he can tolerate however significant compliance issues in the past. Appropriately under palliative care as outpatient Low suspicion of COPD exacerbation as cause of his decompensation. Suspect much more likely acute HFpEF however will continue steroids and nebulkizers for now as his air entry is so poor and this is the main reason for his chronic hypoxic, hypercapnic respiratory failure. (3) Elevated troponin: Plan: Suspected demand-ischemia in setting of acute HFpEF (4) Chronic respiratory failure with hypoxia and hypercapnia: Plan: Patient suffers from chronic respiratory failure with oxygen at 5 L at home rep ortedly is slightly noncompliant with his medications and oxygen. Consider repeat palliative care discussion once patient is more stable (5) Anemia: Plan: Patient has a history of iron def. anemia current hemoglobin is 9 this appears to be his baseline. Consider transferrin sats once his fluid status improves to see where his cur rent true hemoglobin stands (6) Anxiety and depression: Plan: Continue lorazepam PRN Plan VTE Prophylaxis - Lovenox 40mg SQ daily Diet - low Na Disposition - continued admission on PCU Admission and Anticipated Discharge Date Admission Date: November 07, 2022 Subjective Patient was seen after breakfast he was taking a nap he was wearing BiPAP at that time. He arouses easily I reinforced the fact that he should wear BiPAP whenever he does take a nap. He says overall he feels somewhat better. It was noted this morning that he was feeling slightly worse and nursing placed him on BiPAP immediately after breakfast his serum bicarbonate was greater than 45 which is higher than usual for him Review of Systems Review of Systems: Mild distress and fatigue no headache, no visual changes no speech or swallowing issues no chest pain, pressure or palpitations Persistent shortness of breath, worse with exertion, nonproductive cough no abdominal pain, nausea or vomiting, diarrhea or constipation no dysuria, hematuria or frequency no focal joint pain or swelling no back pain, CVA tenderness or radicular pain no bruising, bleeding or rashes no focal signs of weakness or numbness or altered sensation globally very weak no complaints of anxiety or depression.. Physical Exam Physical Exam: The patient appeared chronically ill and having increased work of breathing Vital signs as documented. Head exam is normocephalic atraumatic Neck is without JVD, thyromegaly, or carotid bruits. Lungs are poor air movement throughout prolonged expiratory phase coarse rhonchi at the bases Cardiac exam, Rhythm is regular, systolic ejection murmur is heard Abdominal exam reveals normal bowel sounds, soft non tender, no masses Extremities are 1+ edematous and both lower extremities of chronic venous stasis changes Neurologic exam is alert and oriented, no focal loss of strength or sensation Skin is with stasis dermatitis Psychologically is without concerns for anxiety or depression.. Results & Data Results & Data ([facility]) Vital Signs (Past 12 Hours) Vital Signs Temp Pulse Pulse Resp BP Pulse Ox O2 Del Method 11/09/22 07:25 97.9 F 108 H 20 149/67 H 99 BiPAP 11/09/22 07:27 101 H 11/09/22 07:04 120 H 34 H 94 BiPAP 11/09/22 07:04 120 H 34 H 94 11/09/22 03:55 11/09/22 02:06 93 H 24 94 11/09/22 02:01 97.9 F 96 H 20 168/69 H 97 BiPAP 11/09/22 01:33 99 H 11/08/22 21:00 104 H 32 H 100 11/08/22 21:42 111 H 21 98 BiPAP 11/08/22 22:24 97.9 F 97 H 27 H 133/62 91 BiPAP O2 Flow Rate FiO2 11/09/22 07:25 50 11/09/22 07:27 11/09/22 07:04 50 11/09/22 07:04 50 11/09/22 03:55 5 11/09/22 02:06 6 11/09/22 02:01 11/09/22 01:33 11/08/22 21:00 35 11/08/22 21:42 45 11/08/22 22:24 PG Care Time/CCT Total # of Minutes Spent Total Time Spent with Patient: Total time spent is greater than 50% in coordination of care (as documented) at patient's floor/unit and/or counseling patient: Coding Level of Care Code 58896 Subseq Hosp Care Lvl 3 Diagnoses Chronic heart failure with preserved ejection fraction I50.32 COPD exacerbation J44.1 Elevated troponin R77.8 Chronic respiratory failure with hypoxia and hypercapnia J96.11; J96.12 Anemia D64.9 Anemia type: unspecified type Anxiety and depression F41.9; F32.A (1) Anemia Anemia type: unspecified type Qualified Code(s): D64.9 - Anemia, unspecified
--- NOTE | 2022-11-09 10:13 | XRay Report ---
XR chest 1V portable CLINICAL HISTORY: hypercarbia COMPARISON STUDY: Chest radiograph November 07, 2022. FINDINGS: Small bilateral pleural effusions are again noted with bibasilar opacities. There is no pne umothorax. Fluid along the right minor fissure is unchanged. Mild pulmonary edema has slightly improv ed. Cardiomegaly is unchanged. IMPRESSION: 1. Mild improvement in pulmonary edema. 2. No change in small bilateral pleural effusions and bibasilar opacities. ACT 112: Negative or not required by law. Electronically signed by: Anjum Chaudhry M.D. 11/09/2022 10:12 AM
--- NOTE | 2022-11-09 10:23 | Heart Failure Consultation ---
Date of Consultation November 09, 2022 Assessment & Plan (1) Chronic heart failure with preserved ejection fraction: (2) Atrial fibrillation: (3) Anemia: (4) Dyslipidemia: (5) Elevated troponin: Plan Acute on chronic heart failure with preserved EF: He is hypervolemic. His alejandro ght is up from his baseline with worsening symptoms. Dyspnea likely multifactorial but CHF contributing. Would continue to optimize his volume status as much as possible while inpatient. Goal net negative 1-2L per day. Dry weight 185 lb. Continue Bumex 4 mg IV BID. Continue Metolazone 2.5 mg daily. Can increase to 5 mg daily if kidney function and electrolytes stable. Patient taking Spironolactone 25 mg BID at home along with Bumex and Metolazone daily. Would resume if kidney function stable. BUN trending up today, continue to monitor and consider adding back in tomorrow if stable. Recommend daily standing weights. Strict I&Os. Low sodium diet. Anemia: Documented GI bleeding in the past. He does not wish to undergo any further endoscopy as per GI consultation. Hgb stable this admission. Follows with Dr. Heard. Elevated troponin: Likely due to elevated heart rate, chronic respiratory failure, and significant anemia. Did not present with acute coronary syndrome. Ischemic evaluation not necessary. Dyslipidemia: Continue high-intensity statin therapy. Atrial fibrillation: Heart rate had been reasonably controlled. Now with sinus tach this admission. He is not anticoagulation candidate given documented GI bleeds, with heme-positive stool, and significant anemia. Could consider Watchman device in the future and discuss this further with his primary fashion photographer. ABDIEL- Patient has been noncompliant with BiPAP therapy. Continue to encourage more frequent use. COPD/Restrictive disease- Continue inhalers. Managed by Dr. Hensley/Adin. Pulmonary rehab recommended but not tolerated by the patient/difficult for the to transport. Goal O2 sat 90-92%. Depression- Intermittent. Medications recently adjusted. Defer to PCP. Goals of care: Patient is struggling with worsening symptoms and frequent hospitalizations in recent months. Will try to optimize him as much as possible. Palliative care referral placed by PCP. This is scheduled for Nov. He has had 2 phone visits but no face to face visit yet. Previous discussions regarding goals of care, palliative care, hospice, and quality of life with patient. They are scheduled with Dr. Monge for November. Patient eluded to the fact that he would not want intubation or CPR, but prefer to wait until his is present to continue and formalize his wishes. Disposition: Continue to follow with heart failure program. Patient care discussed with Dr. Briseno of the primary service. History of Present Illness Attending Physician: Jake Briseno MD History of Present Illness Mr. Lobo is a 77 year old male with medical history significant for aortic stenosis now s/p TAVR (2019), afib, COPD, chronic respiratory failure on O2 (5- 6L), carotid artery stenosis status post CEA, tobacco use, history of GI bleed secondary to AVM and hypertension. Dr. De is his primary fashion photographer. Recent cardiac studies: 1. 05/17/20 Echo: LV systolic function is normal, EF 55-60%. No regional wall motion abnormalities. Aortic valve well seated, normal gradient. Mild AR. Mild MS. Mild LVH. 2. 06/12/20 Echo: LV systolic function is normal, EF 55-60%. NO regional wall motion abnormalities. Aortic valve well seated. Mild AR. Mild MS. No change from April. 3. 10/12/22 Echo: Mildly dilated LV. EF 50-55%. No RWMA. Moderate concentric LVH. Moderate left atrial dilation. Bioprosthetic aortic valve with acceptable gradient. Severe MAC. Mild to moderate MS with MR. Moderate pulmonary hypertension. RVSP 53 mmHg. Patient is followed regularly with the heart failure program as an outpatient. Despite close follow up, he has had multiple hospitalizations this year for his various comorbidities. He was most recently evaluated 10/26/22. He was hypervolemic and weight was trending up. He had not taken his diuretics the day before. Dry weight 185 lb. Encouraged compliance with his medications. If weight continues to trend up or worsening symptoms- would increase Metolazone to 5 mg. Also history of noncompliance with BiPAP and turning down O2. He was referred to outpatient pa lliative care for goals of care discussion. Patient presented to the ED on 11/07 in acute respiratory distress. Pulse ox was 58% on 5 L at home with EMS. EMS treated with nebulizers. CPAP required on arrival. CXR with emphysema and vascular congestion with small pleural effusions. He was treated with IV Lasix and IV Ativan. Admitted on Bumex 4 mg IV BID with Metolazone 2.5 mg daily. He reports today he's feeling better. He is wearing his BiPAP at the time of my interview so his input is limited. He is sitting up in the bedside chair. He reports being comfortable. He denies significant lower extremity edema. He denies chest pain or palpitations. Weight yesterday on standing scale is 208 lb. Down to 203 lb on the bed scale this am. Dry weight at home is 185 lb. He's net negative 2.5L. Allergies Allergy/AdvReac Type Severity Reaction Status Date / Time No Known Allergies Allergy Verified 11/07/22 16:56 Home Medications Medication Instructions Recorded Confirmed Type multivitamin (Multiple Vitamins 1 tab PO DAILY 05/21/20 11/07/22 History tablet) docusate sodium 100 mg capsule 100 mg PO BID 06/10/20 11/07/22 History potassium chloride 20 mEq 20 meq PO QAM #0 tabs 04/20/22 11/07/22 Rx tablet,extended release melatonin 3 mg capsule 6 mg PO HS 05/26/22 11/07/22 History buspirone 10 mg tablet 10 mg PO TID PRN Anxiety 07/22/22 11/07/22 History metolazone 2.5 mg tablet 2.5 mg PO DAILY #90 tabs 07/30/22 11/07/22 Rx Oxygen Home #1 ea 08/07/22 11/07/22 Rx atorvastatin 80 mg tablet 80 mg PO QPM #90 tabs 09/29/22 11/07/22 Rx escitalopram oxalate 20 mg tablet 20 mg PO DAILY 14 days #14 tabs 09/29/22 11/07/22 Rx pantoprazole 40 mg tablet,delayed 40 mg PO DAILY #90 tabs 09/29/22 11/07/22 Rx release spironolactone 25 mg tablet 25 mg PO BID 90 days #180 tabs 09/29/22 11/07/22 Rx albuterol sulfate 90 mcg/actuation 2 puff inhalation Q6H PRN 10/01/22 11/07/22 Rx aerosol inhaler Shortness Of Breath Or Wheezing #18 grams bumetanide 2 mg tablet 4 mg PO .DAILY@0600,1200 10/10/22 11/07/22 History Patient History Medical History Acute blood loss anemia Allergic rhinitis with postnasal drip Anxiety Aortic stenosis s/p TAVR 2019 ([facility]) CAD (coronary artery disease) Carotid stenosis, bilateral Chronic cor pulmonale Chronic diastolic (congestive) heart failure Chronic heart failure with preserved ejection fraction Chronic respiratory failure with hypoxia Chronic respiratory failure with hypoxia and hypercapnia on home O2 5L rest; 8L with activity COPD (chronic obstructive pulmonary disease) Elevated troponin I level Generalized weakness GERD (gastroesophageal reflux disease) History of GI bleed Hypertension Iron deficiency anemia Pulmonary hypertension Tobacco use disorder Uremia Surgical History History of left-sided carotid endarterectomy 2013 S/P appendectomy Family History Father Hypertension Mother Hypotension Breast cancer Other No family history of adverse response to anesthesia No family history of bleeding disorder Social History Smoking Status: Former smoker Tobacco Type: Cigarettes packs per day: 1; Second Hand Exposure: No; Hx Alcohol Use: Yes Alcohol type: hard liquor Alcohol Intake Frequency: Monthly or Less Alcohol Intake Frequency Comment: 1 bottle of Manny Dupree a month Hx Substance Use: No Preferred Language: Turkmen Communication Ability: Effective Visual Impairment: No Limitations Clamp Truck Driver Required: No Beliefs That Will Affect Care: None marital status: Current Living Situation: Family Current Living Situation Comment: home with current occupational status: retired Feels Safe at Home: Yes Assistive Devices: Cane, CPAP, Oxygen - Continuous and Walker Physical Exam Physical Exam: General: Comfortable, on BIPAP HEENT: Sclerae anicteric, Mask in place Neck: Supple. No JVD. - HJR Lungs: Increased respiratory effort. Course crackles, prolonged expiratory phase. Decreased air movement throughout. Cardiac: Regular rate and rhythm, crisp bioprosthetic closure Vascular: 2+ radial Abdomen: Soft, nontender Extremities: Well perfused, 1+ lower extremity edema. Neuro: Nonfocal Psych: Alert orient x3, normal affect and mood Results & Data ([facility]) Vital Signs (Past 12 Hours) Vital Signs Temp Pulse Pulse Resp BP Pulse Ox O2 Del Method 11/09/22 09:59 Oxymask, BiPAP 11/09/22 07:25 97.9 F 108 H 20 149/67 H 99 BiPAP 11/09/22 07:27 101 H 11/09/22 07:04 120 H 34 H 94 BiPAP 11/09/22 07:04 120 H 34 H 94 11/09/22 03:55 11/09/22 02:06 93 H 24 94 11/09/22 02:01 97.9 F 96 H 20 168/69 H 97 BiPAP 11/09/22 01:33 99 H 11/08/22 22:24 97.9 F 97 H 27 H 133/62 91 BiPAP O2 Flow Rate FiO2 11/09/22 09:59 50 11/09/22 07:25 50 11/09/22 07:27 11/09/22 07:04 50 11/09/22 07:04 50 11/09/22 03:55 5 11/09/22 02:06 6 11/09/22 02:01 11/09/22 01:33 11/08/22 22:24 Coding Level of Care Code 64130 Initial Inpt Care Lvl 3 Diagnoses Chronic heart failure with preserved ejection fraction I50.32 Atrial fibrillation I48.91 Atrial fibrillation type: unspecified Anemia D64.9 Anemia type: unspecified type Dyslipidemia E78.5 Elevated troponin R77.8 (1) Atrial fibrillation Atrial fibrillation type: unspecified Qualified Code(s): I48.91 - Unspecified atrial fibrillation (2) Anemia Anemia type: unspecified type Qualified Code(s): D64.9 - Anemia, unspecified
[2022-11-10 06:51] LABS: Hematocrit (blood only) 30.2 % (40.1-51.0); Mean Corpuscular Hgb Conc 29.8 g/dL (32.0-36.0); Mean Corpuscular Volume 83.9 fL (80.0-100.0); Mean Platelet Volume 10.5 fL (9.4-12.4); Platelet Count 333 K/uL (130-400); RDW Coefficient of Variation 19.9 % (11.5-14.5); RDW Standard Deviation 61.3 fL (36.4-46.3); White Blood Count 9.99 K/ul (4.8-10.8)
[2022-11-10 07:22] LABS: BUN Creatinine Ratio 36.8 (10-20); Blood Urea Nitrogen 42 mg/dl (6-23); Calcium 9.8 mg/dl (8.5-10.1); Carbon Dioxide > 45 mmol/L (21-32); Chloride 85 mmol/L (98-107); Est GFR (African American) 70.5 ml/min; Est GFR (Non-African American) 60.8 ml/min; Glucose 232 mg/dl (70-99(Fasting)); Potassium 4.2 mmol/L (3.5-5.1); Sodium 139 mmol/L (136-145)
[2022-11-10] MEDS: ALBUT/IPRATROP 3MG/0.5MG NEB 3 ML VIAL NEB SCH ×4 (07:25→18:18)
[2022-11-10] MEDS: FLUTICASONE FUROATE 100MCG 14 PUFFS/INHALER INH SCH (08:43)
[2022-11-10] MEDS: AZELASTINE HCL 0.1% NASAL 200 SPRAYS/27,400 MCG BTL SCH (08:43)
[2022-11-10] MEDS: ENOXAPARIN INJ 40 MG/0.4 ML SYR SQ SCH (08:44)
[2022-11-10] MEDS: BUMETANIDE 4 MG in SYRINGE 0 ML IV SCH (08:44)
[2022-11-10] MEDS: methylPREDNISolone 40 MG in SYRINGE 0 ML IV SCH (08:44)
[2022-11-10] MEDS: UMECLIDINIUM/VILANTEROL 62.5/25MCG 7 PUFFS/INHALER INH SCH (08:44)
[2022-11-10] MEDS: DOCUSATE SODIUM 100 MG CAP PO SCH ×2 (08:45→20:02)
[2022-11-10] MEDS: ESCITALOPRAM OXALATE 20 MG TAB PO SCH (08:45)
[2022-11-10] MEDS: MAGNESIUM OXIDE 400 MG TAB PO SCH (08:45)
[2022-11-10] MEDS: POTASSIUM CHLORIDE CRTAB 20 MEQ TABCR PO SCH (08:45)
[2022-11-10] MEDS: PANTOprazole 40 MG TAB PO SCH (08:46)
[2022-11-10] MEDS: MULTIVITAMIN TAB PO SCH (08:46)
[2022-11-10 09:57] LABS: Magnesium 2.4 mg/dl (1.7-2.4)
--- NOTE | 2022-11-10 12:27 | Heart Failure Progress Note ---
Date of Service November 10, 2022 Assessment & Plan (1) Chronic heart failure with preserved ejection fraction: (2) Atrial fibrillation: (3) Anemia: (4) Dyslipidemia: (5) Elevated troponin: Plan Acute on chronic heart failure with preserved EF: He is hypervolemic. Lungs exam improved today but now having more edema. His weight is up from his previous baseline. Dyspnea likely multifactorial but CHF contributing. Would continue to attempt to optimize his volume status as much as possible while inpatient. Goal net negative 1-2L per day. Dry weight 185 lb in March 2022. Unclear if this is still accurate but based on his exam would suspect it is somewhere in the 190s. Continue Bumex 4 mg IV BID. Would consider adding Acetazolamide given his CO2 retention. Metolazone 2.5 mg daily PRN. Can increase to 5 mg daily if kidney function and electrolytes stable. Patient taking Spironolactone 25 mg BID at home along with Bumex and Metolazone daily. BUN trending up but stable from yesterday, continue to monitor and consider adding back in if stable. Need to consider he may be at his baseline given the severity of his COPD status. Recommend daily standing weights. Strict I&Os. Low sodium diet. Anemia: Documented GI bleeding in the past. He does not wish to undergo any f urther endoscopy as per GI consultation. Hgb stable this admission. Follows with Dr. Heard. Elevated troponin: Likely due to elevated heart rate, chronic respiratory failure, and significant anemia. Did not present with acute coronary syndrome. Ischemic evaluation not necessary. Dyslipidemia: Continue high-intensity statin therapy. Atrial fibrillation: Heart rate had been reasonably controlled. Now with sinus tach this admission. He is not anticoagulation candidate given documented GI bleeds, with heme-positive stool, and significant anemia. Could consider Watchman device in the future and discuss this further with his primary health and wellness coach. ABDIEL- Patient has been noncompliant with BiPAP therapy. Continue to encourage more frequent use. COPD/Restrictive disease- Chronic hypercapnic resp failure. Encourage BiPAP use. Continue inhalers. Managed by Dr. Hensley/Adin. Pulmonary rehab recommended but not tolerated by the patient/difficult for the to transport. Goal O2 sat 90-92%. Depression- Intermittent. Medications recently adjusted. Defer to PCP. Goals of care: Patient is struggling with worsening symptoms and frequent hospitalizations in recent months. Will try to optimize him as much as possible. Outpatient palliative care referral placed by PCP. This is scheduled for Nov. He has had 2 phone visits but no face to face visit yet. Previous discussions regar ding goals of care, palliative care, hospice, and quality of life with patient. They are scheduled with Dr. Monge for November. Patient eluded to the fact that he would not want intubation or CPR, but prefer to wait until his is present to continue and formalize his wishes. Inpatient palliative care consulted this admission. Note is pending at the time of documentation. Disposition: Will be away from the hospital 11/11 but will continue to follow upon return. Admission and Anticipated Discharge Date Admission Date: November 07, 2022 Supervising Physician Co-Signing Physician Notes Patient seen and examined. Agree with assessment and plan as outlined by TIFFANY Herrera. Patient was seen today while on BiPAP. He appeared to be breathing comfortably and was in good spirits. He felt his breathing was at baseline. Denies any chest pain. On exam crackles at bases, residual right greater than left lower extremity edema. Weight still up from baseline. Negative more than a liter yesterday. -5 L for admission. BUN has gradually trended up but creatinine stable. With persistent congestion, O2 requirement recommend continued IV diuresis. Continue Bumex 4 mg IV twice daily. Agree with addition of acetazolamide 500mg daily. Appreciate hospital medicine, and palliative care. Will continue to follow. Subjective Patient resting comfortably in bed this am. He is off biPAP and back on supplemental O2 today. He's on 8L at rest. He reports feeling somewhat improved. He reports he wore his BiPAP most of the night. He continues to diurese. Weight is 203 lb on the standing scale. Previous dry weight 185 lb in March 2022. BUN is elevated but stable. Creatinine normal. CXR yesterday with mild improvement in pulmonary edema. Pleural effusions and bibasilar opacities unchanged. Telemetry reviewed- sinus 80s-100s Physical Exam Physical Exam: General: Comfortable, 8L via NC HEENT: Sclerae anicteric, Mask in place Neck: Supple. No JVD. - HJR Lungs: Increased respiratory effort. Bibasilar crackles, improved from yesterday. Decreased air movement throughout. Cardiac: Regular rate and rhythm, crisp bioprosthetic closure Vascular: 2+ radial Abdomen: Soft, nontender Extremities: Well perfused, 2+ lower extremity edema. Neuro: Nonfocal Psych: Alert orient x3, normal affect and mood Results & Data ([facility]) Vital Signs (Past 12 Hours) Vital Signs Temp Pulse Resp BP Pulse Ox O2 Del Method O2 Flow Rate 11/10/22 11:14 90 20 96 Nasal Cannula 8 11/10/22 10:44 98.2 F 88 22 142/63 H 11/10/22 07:35 98.1 F 80 20 135/61 96 High Flow Nasal Cannula 5 11/10/22 03:34 98.8 F 85 20 155/64 H 99 High Flow Nasal Cannula 10 PG Care Time/CCT Total # of Minutes Spent Total Time Spent with Patient: Total time spent is greater than 50% in coordination of care (as documented) at patient's floor/unit and/or counseling patient: Coding Level of Care Code 92381 Subseq Hosp Care Lvl 3 Diagnoses Chronic heart failure with preserved ejection fraction I50.32 Atrial fibrillation I48.91 Atrial fibrillation type: unspecified Anemia D64.9 Anemia type: unspecified type Dyslipidemia E78.5 Elevated troponin R77.8 (1) Anemia Anemia type: unspecified type Qualified Code(s): D64.9 - Anemia, unspecified (2) Atrial fibrillation Atrial fibrillation type: unspecified Qualified Code(s): I48.91 - Unspecified atrial fibrillation
--- NOTE | 2022-11-10 13:13 | Palliative Care Consultation ---
Date of Consultation November 10, 2022 Assessment & Plan (1) Dyspnea: Per his , he is at his baseline O2 level of 8L. He is able to walk around the house with a walker and notes that sometimes he stops to rest and catch his breath. He does not feel that his breathing is a problem. (2) Palliative care encounter: I met with Mr. Lobo, along with Dr. Marcelina Mir, to discuss his understanding of his illness and goals of care. When asked about his understanding of his illness, he replied "it sucks". He feels that after his prior heart attack, his breathing declined and has been a challenge since that time. It does limit what he is able to do but he is quite determined and does what he wants to do, regardless of how his breathing feels. We talked about whether there were limits to what he would want for his care. He does not feel that he needs to consider that at this time because he is doing ok. He asked if as a physician, I thought he should be thinking about that. We talked about importance of understanding goals and wishes prior to crisis situation to know how he would want us to care for him. We also discussed concern that his health would not improve and likely continue to decline. He indicated that he did not think that was the case and that he would think about that when he needed to. He does say that being at home is very important to him. He thinks he would want to be at home for his dying time, though he notes that he doesn't think that time is coming soon. He would want his , Noemi, to be his surrogate decision maker. I spoke to Noemi on the phone. She notes that he is frequently confused at home and has difficulty with taking his medications and using his O2 and Bipap as prescribed. She recognizes that he is not going to get better but also recognizes that he is not considering limitations to his care at this time. She notes that they have had previous conversations and that he has said that he would not want resuscitation. She would not want that for him. At this time, as long as he is capable, he remains a full code. ([id number]) History of Present Illness Reason for Consultation: goals of care Requesting Physician: Dr. Nuñez Attending Physician: Zac Nuñez MD History of Present Illness 77 yo gentleman with history of chronic hypercapnic, hypoxic respiratory failure as well as cor pulmonale and diastolic heart failure. He has had six hospitalizations over the last six months. He has comorbid afib, anemia with iron infusions and ABDIEL. He presented with acute respiratory distress. His baseline O2 requirement is apparently 5-6L. He is currently on 8L. He is followed in heart failure clinic and was referred to outpatient palliative care for further goals of care discussion. He has been DNR in the past and has indicated that he would not want intubation but has been full code on recent admissions. He had televisit with Dr. Monge earlier this month and at that time had indicated that he would prefer not to return to the hospital. Allergies Allergy/AdvReac Type Severity Reaction Status Date / Time No Known Allergies Allergy Verified 11/07/22 16:56 Home Medications Medication Instructions Recorded Confirmed Type multivitamin (Multiple Vitamins 1 tab PO DAILY 05/21/20 11/07/22 History tablet) docusate sodium 100 mg capsule 100 mg PO BID 06/10/20 11/07/22 History potassium chloride 20 mEq 20 meq PO QAM #0 tabs 04/20/22 11/07/22 Rx tablet,extended release melatonin 3 mg capsule 6 mg PO HS 05/26/22 11/07/22 History buspirone 10 mg tablet 10 mg PO TID PRN Anxiety 07/22/22 11/07/22 History metolazone 2.5 mg tablet 2.5 mg PO DAILY #90 tabs 07/30/22 11/07/22 Rx Oxygen Home #1 ea 08/07/22 11/07/22 Rx atorvastatin 80 mg tablet 80 mg PO QPM #90 tabs 09/29/22 11/07/22 Rx escitalopram oxalate 20 mg tablet 20 mg PO DAILY 14 days #14 tabs 09/29/22 11/07/22 Rx pantoprazole 40 mg tablet,delayed 40 mg PO DAILY #90 tabs 09/29/22 11/07/22 Rx release spironolactone 25 mg tablet 25 mg PO BID 90 days #180 tabs 09/29/22 11/07/22 Rx albuterol sulfate 90 mcg/actuation 2 puff inhalation Q6H PRN 10/01/22 11/07/22 Rx aerosol inhaler Shortness Of Breath Or Wheezing #18 grams bumetanide 2 mg tablet 4 mg PO .DAILY@0600,1200 10/10/22 11/07/22 History Patient History Medical History Acute blood loss anemia Allergic rhinitis with postnasal drip Anxiety Aortic stenosis s/p TAVR 2019 ([facility]) CAD (coronary artery disease) Carotid stenosis, bilateral Chronic cor pulmonale Chronic diastolic (congestive) heart failure Chronic heart failure with preserved ejection fraction Chronic respiratory failure with hypoxia Chronic respiratory failure with hypoxia and hypercapnia on home O2 5L rest; 8L with activity COPD (chronic obstructive pulmonary disease) Elevated troponin I level Generalized weakness GERD (gastroesophageal reflux disease) History of GI bleed Hypertension Iron deficiency anemia Pulmonary hypertension Tobacco use disorder Uremia Surgical History History of left-sided carotid endarterectomy 2013 S/P appendectomy Family History Father Hypertension Mother Hypotension Breast cancer Other No family history of adverse response to anesthesia No family history of bleeding disorder Social History Smoking Status: Former smoker Tobacco Type: Cigarettes packs per day: 1; Second Hand Exposure: No; Hx Alcohol Use: Yes Alcohol type: hard liquor Alcohol Intake Frequency: Monthly or Less Alcohol Intake Frequency Comment: 1 bottle of Manny Dupree a month Hx Substance Use: No Preferred Language: Hebrew Communication Ability: Effective Visual Impairment: No Limitations Chief Payroll Clerk Required: No Beliefs That Will Affect Care: None marital status: Current Living Situation: Family Current Living Situation Comment: home with current occupational status: retired Feels Safe at Home: Yes Assistive Devices: Cane, CPAP, Oxygen - Continuous and Walker Review of Systems Review of Systems: ESAS Pain 0/3 Dyspnea 0/3 Anxiety 0/3 Fatigue 1/3 Drowsiness 0/3 Physical Exam Constitutional: no acute distress Respiratory: + uses accessory muscles Cardiovascular: Rate/Rhythm: + irregularly irregular Neurologic: Speech / Cognition: normal cognition Genitourinary: continent Results & Data ([facility]) Vital Signs (Past 12 Hours) Vital Signs Temp Pulse Resp BP Pulse Ox O2 Del Method O2 Flow Rate 11/10/22 11:14 90 20 96 Nasal Cannula 8 11/10/22 10:44 98.2 F 88 22 142/63 H 11/10/22 07:35 98.1 F 80 20 135/61 96 High Flow Nasal Cannula 5 11/10/22 03:34 98.8 F 85 20 155/64 H 99 High Flow Nasal Cannula 10 PG Care Time/CCT Total # of Minutes Spent Total Time Spent: 82 Total Time Spent with Patient: Total time spent is greater than 50% in coordination of care (as documented) at patient's floor/unit and/or counseling patient: goals of care, code status, surrogate decision maker, prognosis, patient and family education and support Coding Level of Care Code 51003 Initial Inpt Care Lvl 3 Diagnoses Dyspnea R06.00 Palliative care encounter Z51.5
--- NOTE | 2022-11-10 18:13 | Hospitalist Progress Note ---
Date of Service November 10, 2022 Assessment & Plan (1) Chronic heart failure with preserved ejection fraction: Plan: Acute on chronic HFpEF Patient significantly doing better, currently euvolemic, continue Bumex, and low-salt diet Patient has history of atrial fibrillation (was rate controlled without medication on previous hospitalizations without medications and spontaneously converted) currently in sinus rhythm Patient has history of bioprosthetic arctic valve replacement 2020 last echocardiogram (October 12, 2022) with moderate pulmonary hypertension now suggested as new finding Challenging situation at times patient is refusing care at times he wants full care his and he seemed to not agree. Difficult to decide to pull in an alternative palliative care group as he is already established care with [facility] (2) COPD exacerbation: Plan: Chronic CO2 retention. Ideally will continue on BiPAP especially while sleeping or napping as he can tolerate however significant compliance issues in the past. Appropriately under palliative care as outpatient Low suspicion of COPD exacerbation as cause of his decompensation. Suspect much more likely acute HFpEF however will continue steroids and nebulkizers for now as his air entry is so poor and this is the main reason for his chronic hypoxic, hypercapnic respiratory failure. (3) Elevated troponin: Plan: Suspected demand-ischemia in setting of acute HFpEF (4) Chronic respiratory failure with hypoxia and hypercapnia: Plan: Patient suffers from chronic respiratory failure with oxygen at 5 L at home reportedly is slightly noncompliant with his medications and oxygen. Consider repeat palliative care discussion once patient is more stable (5) Anemia: Plan: Patient has a history of iron def. anemia current hemoglobin is 9 this appears to be his baseline. Consider transferrin sats once his fluid status improves to see where his current true hemoglobin stands (6) Anxiety and depression: Plan: Continue lorazepam PRN Plan VTE Prophylaxis - Lovenox 40mg SQ daily Diet - low Na Disposition - continued admission on PCU Admission and Anticipated Discharge Date Admission Date: November 07, 2022 Subjective The patient today, consulted with palliative care, he does significantly better today, currently on 8 L oxygen, using BiPAP off and on Review of Systems Review of Systems: Mild distress and fatigue no headache, no visual changes no speech or swallowing issues no chest pain, pressure or palpitations Persistent shortness of breath, worse with exertion, nonproductive cough no abdominal pain, nausea or vomiting, diarrhea or constipation no dysuria, hematuria or frequency no focal joint pain or swelling no back pain, CVA tenderness or radicular pain no bruising, bleeding or rashes no focal signs of weakness or numbness or altered sensation globally very weak no complaints of anxiety or depression.. Physical Exam Physical Exam: The patient appeared chronically ill and having increased work of breathing Vital signs as documented. Head exam is normocephalic atraumatic Neck is without JVD, thyromegaly, or carotid bruits. Lungs are poor air movement throughout prolonged expiratory phase coarse rhonchi at the bases Cardiac exam, Rhythm is regular, systolic ejection murmur is heard Abdominal exam reveals normal bowel sounds, soft non tender, no masses Extremities are 1+ edematous and both lower extremities of chronic venous stasis changes Neurologic exam is alert and oriented, no focal loss of strength or sensation Skin is with stasis dermatitis Psychologically is without concerns for anxiety or depression.. Constitutional: well developed and + acute distress (using accessory muscules); + not well nourished Eyes: + anicteric sclerae; normal pupil size Respiratory: + respiratory distress, + labored breathing, + uses accessory muscles, + tachypneic and + prolonged expiratory phase; no audible wheezes and no stridor Auscultation: + breath sounds absent (bibasal) and + diminished lung sounds (throughout); no crackles, no rales, no rhonchi and no wheezes Cardiovascular: Rate/Rhythm: regular rhythm and + tachycardic Heart Sounds: no murmur Vessels: + JVD Extremities: normal capillary refill and + pedal edema (1+ pre-tibial, some skin wrinkling); no calf tenderness Gastrointestinal (Abdomen): normal bowel sounds, soft, nontender, no hepatosplenomegaly Skin: no rashes, warm and dry Neurologic: moves all extremities, awake and + confused (at times) Psychiatric: Orientation: alert, oriented to person and oriented to place; + not oriented to time Results & Data Results & Data ([facility]) Vital Signs (Past 12 Hours) Vital Signs Temp Pulse Pulse Resp BP Pulse Ox O2 Del Method 11/10/22 15:58 36.5 C 101 H 22 127/48 L 94 High Flow Nasal Cannula 11/10/22 14:35 97 H 20 93 Nasal Cannula 11/10/22 08:00 74 11/10/22 08:00 High Flow Nasal Cannula 11/10/22 11:14 90 20 96 Nasal Cannula 11/10/22 10:44 36.8 C 88 22 142/63 H 11/10/22 07:35 36.7 C 80 20 135/61 96 High Flow Nasal Cannula O2 Flow Rate 11/10/22 15:58 8 11/10/22 14:35 8 11/10/22 08:00 11/10/22 08:00 8 11/10/22 11:14 8 11/10/22 10:44 11/10/22 07:35 5 PG Care Time/CCT Total # of Minutes Spent Total Time Spent with Patient: Total time spent is greater than 50% in coordination of care (as documented) at patient's floor/unit and/or counseling patient: Coding Level of Care Code 87389 Subseq Hosp Care Lvl 2 Diagnoses Chronic heart failure with preserved ejection fraction I50.32 COPD exacerbation J44.1 Elevated troponin R77.8 Chronic respiratory failure with hypoxia and hypercapnia J96.11; J96.12 Anemia D64.9 Anemia type: unspecified type Anxiety and depression F41.9; F32.A (1) Anemia Anemia type: unspecified type Qualified Code(s): D64.9 - Anemia, unspecified
[2022-11-10] MEDS: LORazepam 0.5 MG TAB PO PRN (20:02)
[2022-11-11 06:29] LABS: Hematocrit (blood only) 29.5 % (40.1-51.0); Hemoglobin 8.7 g/dl (14.0-18.0); Mean Corpuscular Hemoglobin 24.8 pg (25.0-34.0); Mean Corpuscular Hgb Conc 29.5 g/dL (32.0-36.0); Platelet Count 311 K/uL (130-400); RDW Coefficient of Variation 19.7 % (11.5-14.5); RDW Standard Deviation 60.7 fL (36.4-46.3); Red Blood Count 3.51 M/uL (4.63-6.08)
[2022-11-11 06:55] LABS: BUN Creatinine Ratio 35.6 (10-20); Blood Urea Nitrogen 42 mg/dl (6-23); Calcium 9.4 mg/dl (8.5-10.1); Carbon Dioxide > 45 mmol/L (21-32); Chloride 84 mmol/L (98-107); Creatinine Clr Calc Pharmacy 58.1 ml/min; Est GFR (African American) 67.6 ml/min; Est GFR (Non-African American) 58.3 ml/min; Glucose 106 mg/dl (70-99(Fasting)); Potassium 3.7 mmol/L (3.5-5.1)
[2022-11-11 07:15] LABS: Sodium 137 mmol/L (136-145)
[2022-11-11] MEDS: ALBUT/IPRATROP 3MG/0.5MG NEB 3 ML VIAL NEB SCH ×4 (07:24→19:28)
[2022-11-11] MEDS: UMECLIDINIUM/VILANTEROL 62.5/25MCG 7 PUFFS/INHALER INH SCH (08:40)
[2022-11-11] MEDS: FLUTICASONE FUROATE 100MCG 14 PUFFS/INHALER INH SCH (08:40)
[2022-11-11] MEDS: ENOXAPARIN INJ 40 MG/0.4 ML SYR SQ SCH (08:40)
[2022-11-11] MEDS: DOCUSATE SODIUM 100 MG CAP PO SCH ×2 (08:41→21:01)
[2022-11-11] MEDS: POTASSIUM CHLORIDE CRTAB 20 MEQ TABCR PO SCH (08:41)
[2022-11-11] MEDS: MAGNESIUM OXIDE 400 MG TAB PO SCH (08:41)
[2022-11-11] MEDS: ESCITALOPRAM OXALATE 20 MG TAB PO SCH (08:41)
[2022-11-11] MEDS: MULTIVITAMIN TAB PO SCH (08:41)
[2022-11-11] MEDS: PANTOprazole 40 MG TAB PO SCH (08:41)
[2022-11-11] MEDS: AZELASTINE HCL 0.1% NASAL 200 SPRAYS/27,400 MCG BTL SCH (08:42)
--- NOTE | 2022-11-11 10:41 | Cardiology Progress Note ---
Date of Service November 11, 2022 Assessment & Plan (1) Acute on chronic diastolic heart failure with preserved ejection fraction: Plan: 2. Severe aortic stenosis post TAVR (#34mm Medtronic Evolut Pro 04/23/2020 [facility]). 3. Anemia/prior GI bleed mild mitral stenosis 4. Paroxysmal atrial fibrillation 5. COPD/restrictive lung diseasechronic hypoxic respiratory failure on 2-5L O2 Diuresed well yesterday, negative more than 2 L. Renal function stable. Still with increased O2 requirement/intermittently hypoxia. Has congestion on exam and weight unchanged. Recommend continued diuresis Resume IV Bumex 4 mg twice daily Resume spironolactone 25 mg daily Pending diuresis today we will consider adding acetazolamide Patient again stated his wishes are to get better and go home. Stated he does not like to think about end-of-life/palliative care. Admission and Anticipated Discharge Date Admission Date: November 07, 2022 Subjective Seen today with BiPAP in place. Intermittent hypoxia as low as 50s on nasal cannula. He reports feeling okay. Denies shortness of breath at present. Denies any chest pain. Asking about going home. Telemetry reviewedno events. Review of Systems Review of Systems: All systems reviewed & are unremarkable except as noted in HPI & below Physical Exam Physical Exam: General: Sleeping comfortably with BiPAP in place HEENT: Sclerae anicteric Lungs: Decreased breath sounds at bases bilaterally with few crackles on the right Cardiac: Regular rate with premature beats. JVP approximately 9-10 Vascular: 2+ radial Abdomen: Soft, nontender Extremities: Well perfused, 1+ edema to mid shins right greater than left Neuro: Nonfocal Psych: Alert orient Results & Data ([facility]) Vital Signs (Past 12 Hours) Vital Signs Temp Pulse Pulse Resp BP BP Pulse Ox 11/11/22 08:00 69 11/11/22 08:00 11/11/22 09:07 21 100 11/11/22 08:00 97.7 F 72 18 131/68 97 11/11/22 07:24 76 20 100 11/11/22 03:00 97.7 F 88 18 123/64 99 11/10/22 23:00 98.2 F 87 20 120/58 L 97 O2 Del Method O2 Flow Rate FiO2 11/11/22 08:00 11/11/22 08:00 High Flow Nasal Cannula 8 12/21/22 09:07 40 11/11/22 08:00 High Flow Nasal Cannula 6 11/11/22 07:24 Nasal Cannula 6 11/11/22 03:00 High Flow Nasal Cannula 6 11/10/22 23:00 High Flow Nasal Cannula 6 PG Care Time/CCT Total # of Minutes Spent Total Time Spent with Patient: Total time spent is greater than 50% in coordination of care (as documented) at patient's floor/unit and/or counseling patient: Coding Level of Care Code 28654 Subseq Hosp Care Lvl 3 Diagnoses Acute on chronic diastolic heart failure with preserved ejection fraction I50.33
[2022-11-11] MEDS: BUMETANIDE 1 MG in SYRINGE 0 ML IV SCH ×2 (11:43→17:11)
[2022-11-11] MEDS: SPIRONOLACTONE 25 MG TAB PO SCH (11:47)
--- NOTE | 2022-11-11 19:12 | Hospitalist Progress Note ---
Date of Service November 11, 2022 Assessment & Plan (1) Chronic heart failure with preserved ejection fraction: Plan: Acute on chronic HFpEF Currently on Bumex, chest CT showed pulmonary edema, currently on 10 L oxygen at home patient is a 5 with a doctor, patient has developed contraction alkalosis, currently started on Diamox, I will add metolazone (2) COPD exacerbation: Plan: Chronic CO2 retention. on BiPAP especially while sleeping or napping as he can tolerate however significant compliance issues in the past. Appropriately under palliative care as outpatient Low suspicion of COPD exacerbation as cause of his decompensation. Continue nebulizer, (3) Elevated troponin: Plan: Suspected demand-ischemia in setting of acute HFpEF (4) Chronic respiratory failure with hypoxia and hypercapnia: Plan: Patient suffers from chronic respiratory failure with oxygen at 5 L at home reportedly is slightly noncompliant with his medications and oxygen. Consulted palliative care, developed acute on chronic respiratory failure, currently on 2 L oxygen at home patient is on 5 L (5) Anemia: Plan: Patient has a history of iron def. anemia current hemoglobin is 9 this appears to be his baseline. Consider transferrin sats once his fluid status improves to see where his current true hemoglobin stands (6) Anxiety and depression: Plan: Continue lorazepam PRN (7) Acute on chronic diastolic heart failure with preserved ejection fraction: Plan: Chest CT showed pulmonary edema, continue Bumex, continue Demadex, patient developed contraction alkalosis, at metolazone, at baseline patient is 5 L oxygen currently on 2 L oxygen no wheezing is Severe aortic stenosis post TAVR (#34mm Medtronic Evolut Pro 04/23/2020 [facility]. Admission and Anticipated Discharge Date Admission Date: November 07, 2022 Subjective Patient sitting at the bedside this am. Reports he feels well. Does not recall any further episodes of significant hypoxia since yesterday. Currently requiring 9 L. Continues to have lower extremity edema. Weight is stable at 204 lb this am. Not much output since yesterday, getting Bumex 1 mg instead of 4 mg. Denies chest pain, palpitations, lightheadedness. Review of Systems Review of Systems: Mild distress and fatigue no headache, no visual changes no speech or swallowing issues no chest pain, pressure or palpitations Persistent shortness of breath, worse with exertion, nonproductive cough no abdominal pain, nausea or vomiting, diarrhea or constipation no dysuria, hematuria or frequency no focal joint pain or swelling no back pain, CVA tenderness or radicular pain no bruising, bleeding or rashes no focal signs of weakness or numbness or altered sensation globally very weak no complaints of anxiety or depression.. Physical Exam Physical Exam: The patient appeared chronically ill and having increased work of breathing Vital signs as documented. Head exam is normocephalic atraumatic Neck is without JVD, thyromegaly, or carotid bruits. Lungs are poor air movement throughout prolonged expiratory phase coarse rhonchi at the bases Cardiac exam, Rhythm is regular, systolic ejection murmur is heard Abdominal exam reveals normal bowel sounds, soft non tender, no masses Extremities are 1+ edematous and both lower extremities of chronic venous stasis changes Neurologic exam is alert and oriented, no focal loss of strength or sensation Skin is with stasis dermatitis Psychologically is without concerns for anxiety or depression.. Constitutional: well nourished and + acute distress (using accessory muscules) Eyes: + anicteric sclerae; normal pupil size Respiratory: + respiratory distress, + labored breathing, + uses accessory muscles, + tachypneic and + prolonged expiratory phase; no audible wheezes and no stridor Auscultation: + breath sounds absent (bibasal) and + diminished lung sounds (throughout); no crackles, no rales, no rhonchi and no wheezes Cardiovascular: Rate/Rhythm: regular rhythm and + tachycardic Heart Sounds: no murmur Vessels: + JVD Extremities: normal capillary refill and + pedal edema (1+ pre-tibial, some skin wrinkling); no calf tenderness Gastrointestinal (Abdomen): normal bowel sounds, soft, nontender, no hepatosplenomegaly Skin: no rashes, warm and dry Neurologic: moves all extremities, awake and + confused (at times) Speech / Cognition: normal cognition Psychiatric: Orientation: alert, oriented to person and oriented to place; + not oriented to time Results & Data Results & Data ([facility]) Vital Signs (Past 12 Hours) Vital Signs Temp Pulse Pulse Resp BP Pulse Ox O2 Del Method 11/11/22 15:55 36.8 C 77 18 117/63 99 High Flow Nasal Cannula 11/11/22 15:12 87 11/11/22 14:33 86 19 100 Nasal Cannula 11/11/22 12:00 36.9 C 86 16 120/59 L 98 High Flow Nasal Cannula 11/11/22 11:11 85 20 93 Nasal Cannula 11/11/22 08:00 69 11/11/22 08:00 High Flow Nasal Cannula 11/11/22 09:07 21 100 11/11/22 08:00 36.5 C 72 18 131/68 97 High Flow Nasal Cannula 11/11/22 07:24 76 20 100 Nasal Cannula O2 Flow Rate FiO2 11/11/22 15:55 11/11/22 15:12 11/11/22 14:33 12 11/11/22 12:00 5 11/11/22 11:11 12 11/11/22 08:00 11/11/22 08:00 8 11/11/22 09:07 40 11/11/22 08:00 6 11/11/22 07:24 6 PG Care Time/CCT Total # of Minutes Spent Total Time Spent with Patient: Total time spent is greater than 50% in coordination of care (as documented) at patient's floor/unit and/or counseling patient: Coding Level of Care Code 63360 Subseq Hosp Care Lvl 3 Diagnoses Chronic heart failure with preserved ejection fraction I50.32 COPD exacerbation J44.1 Elevated troponin R77.8 Chronic respiratory failure with hypoxia and hypercapnia J96.11; J96.12 Anemia D64.9 Anemia type: unspecified type Anxiety and depression F41.9; F32.A Acute on chronic diastolic heart failure with preserved ejection fraction I50.33 (1) Anemia Anemia type: unspecified type Qualified Code(s): D64.9 - Anemia, unspecified
--- NOTE | 2022-11-11 19:38 | Hospitalist Progress Note ---
Date of Service November 11, 2022 Assessment & Plan (1) Chronic heart failure with preserved ejection fraction: Plan: Acute on chronic HFpEF Patient significantly doing better, currently euvolemic, continue Bumex, and low-salt diet Patient has history of atrial fibrillation (was rate controlled without medication on previous hospitalizations without medications and spontaneously converted) currently in sinus rhythm Patient has history of bioprosthetic arctic valve replacement 2020 last echocardiogram (October 12, 2022) with moderate pulmonary hypertension now suggested as new finding Challenging situation at times patient is refusing care at times he wants full care his and he seemed to not agree. Difficult to decide to pull in an alternative palliative care group as he is already established care with [facility] (2) COPD exacerbation: Plan: Chronic CO2 retention. Ideally will continue on BiPAP especially while sleeping or napping as he can tolerate however significant compliance issues in the past. Appropriately under palliative care as outpatient Low suspicion of COPD exacerbation as cause of his decompensation. Started on low-dose prednisone 20 mg daily, continue DuoNeb Suspect much more likely acute HFpEF (3) Elevated troponin: Plan: Suspected demand-ischemia in setting of acute HFpEF (4) Chronic respiratory failure with hypoxia and hypercapnia: Plan: Patient suffers from chronic respiratory failure with oxygen at 5 L at home reportedly is slightly noncompliant with his medications and oxygen. Consider repeat palliative care discussion once patient is more stable (5) Anemia: Plan: Patient has a history of iron def. anemia current hemoglobin is 9 this appears to be his baseline. Consider transferrin sats once his fluid status improves to see where his current true hemoglobin stands (6) Anxiety and depression: Plan: Continue lorazepam PRN Plan VTE Prophylaxis - Lovenox 40mg SQ daily Diet - low Na Disposition - continued admission on PCU Admission and Anticipated Discharge Date Admission Date: November 07, 2022 Subjective The patient is a significant this morning, currently needs as much as 10 L/min, not sure what the triggering factor possibly atelectasis monitor for now, and exam lungs are clear to auscultation, discussed with cardiology would like to continue diuretic at this point Physical Exam Physical Exam: General: Alert oriented x3 in no acute distress Neck: Supple thyroid is not tender Cardiovascular: No murmur no gallop Respiratory: No wheezing no crackles Abdomen: Soft bowel sounds active Results & Data Results & Data ([facility]) Vital Signs (Past 12 Hours) Vital Signs Temp Pulse Pulse Resp BP Pulse Ox O2 Del Method 11/11/22 19:28 92 H 16 96 Nasal Cannula 11/11/22 19:20 36.7 C 74 22 125/63 99 High Flow Nasal Cannula 11/11/22 15:55 36.8 C 77 18 117/63 99 High Flow Nasal Cannula 11/11/22 15:12 87 11/11/22 14:33 86 19 100 Nasal Cannula 11/11/22 12:00 36.9 C 86 16 120/59 L 98 High Flow Nasal Cannula 11/11/22 11:11 85 20 93 Nasal Cannula 11/11/22 08:00 69 11/11/22 08:00 High Flow Nasal Cannula 11/11/22 09:07 21 100 11/11/22 08:00 36.5 C 72 18 131/68 97 High Flow Nasal Cannula O2 Flow Rate FiO2 11/11/22 19:28 10 11/11/22 19:20 10 11/11/22 15:55 11/11/22 15:12 11/11/22 14:33 12 11/11/22 12:00 5 11/11/22 11:11 12 11/11/22 08:00 11/11/22 08:00 8 11/11/22 09:07 40 11/11/22 08:00 6 PG Care Time/CCT Total # of Minutes Spent Total Time Spent with Patient: Total time spent is greater than 50% in coordination of care (as documented) at patient's floor/unit and/or counseling patient: Coding Level of Care Code 57457 Subseq Hosp Care Lvl 3 Diagnoses Chronic heart failure with preserved ejection fraction I50.32 COPD exacerbation J44.1 Elevated troponin R77.8 Chronic respiratory failure with hypoxia and hypercapnia J96.11; J96.12 Anemia D64.9 Anemia type: unspecified type Anxiety and depression F41.9; F32.A (1) Anemia Anemia type: unspecified type Qualified Code(s): D64.9 - Anemia, unspecified
[2022-11-12] MEDS: LORazepam 0.5 MG TAB PO PRN ×2 (01:19→16:22)
[2022-11-12] MEDS: ALBUT/IPRATROP 3MG/0.5MG NEB 3 ML VIAL NEB SCH ×5 (06:58→20:02)
[2022-11-12] MEDS: BUMETANIDE 1 MG in SYRINGE 0 ML IV SCH ×2 (08:27→16:22)
[2022-11-12] MEDS: DOCUSATE SODIUM 100 MG CAP PO SCH ×2 (08:27→20:34)
[2022-11-12] MEDS: ENOXAPARIN INJ 40 MG/0.4 ML SYR SQ SCH (08:27)
[2022-11-12] MEDS: PANTOprazole 40 MG TAB PO SCH (08:29)
[2022-11-12] MEDS: SPIRONOLACTONE 25 MG TAB PO SCH (08:29)
[2022-11-12] MEDS: ESCITALOPRAM OXALATE 20 MG TAB PO SCH (08:29)
[2022-11-12] MEDS: POTASSIUM CHLORIDE CRTAB 20 MEQ TABCR PO SCH (08:29)
[2022-11-12] MEDS: MULTIVITAMIN TAB PO SCH (08:29)
[2022-11-12] MEDS: AZELASTINE HCL 0.1% NASAL 200 SPRAYS/27,400 MCG BTL SCH (08:29)
[2022-11-12] MEDS: UMECLIDINIUM/VILANTEROL 62.5/25MCG 7 PUFFS/INHALER INH SCH (08:30)
[2022-11-12] MEDS: MAGNESIUM OXIDE 400 MG TAB PO SCH (08:30)
[2022-11-12] MEDS: FLUTICASONE FUROATE 100MCG 14 PUFFS/INHALER INH SCH (08:30)
[2022-11-12] MEDS ORDERED: predniSONE 20 MG TAB PO SCH (09:00)
--- NOTE | 2022-11-12 11:14 | Heart Failure Progress Note ---
Date of Service November 12, 2022 Assessment & Plan (1) Acute on chronic diastolic heart failure with preserved ejection fraction: Plan: 2. Severe aortic stenosis post TAVR (#34mm Medtronic Evolut Pro 04/23/2020 [facility]). 3. Anemia/prior GI bleed mild mitral stenosis 4. Paroxysmal atrial fibrillation 5. COPD/restrictive lung diseasechronic hypoxic respiratory failure on 2-5L O2 Diuresed well yesterday, negative more than 2 L. Renal function stable. Still with increased O2 requirement/intermittently hypoxia. Has congestion on exam and weight unchanged. Continue to encourage BiPAP use. Recommend continued diuresis Continue IV Bumex 4 mg twice daily Continue spironolactone 25 mg daily Responding well to current regimen however continues to retain CO2. Could consider adding acetazolamide but ultimately encourage BiPAP use. Patient again stated his wishes are to get better and go home. Stated he does not like to think about end-of-life/palliative care. He wishes to remain a full code. Appreciate palliative care input. Admission and Anticipated Discharge Date Admission Date: November 07, 2022 Subjective Patient resting comfortably in bed however O2 saturation in the 60s while on 15 L. He continues to have intermittent episodes of hypoxia. Patient asymptomatic. Agreeable to wearing BiPAP for short time. Was only able to tolerate for about 40 minutes the previous day. Did not wear it at night. Continues to respond well to diuretics. Net negative 8L for admission. Weight stable at 204 lb. Telemetry reviewed- mostly sinus with PACs but appears to be having episodes of paroxysmal afib. Physical Exam Physical Exam: General: Comfortable, 15 L via NC HEENT: Sclerae anicteric Neck: Supple. No JVD. - HJR Lungs: Normal respiratory effort. Bibasilar crackles. Decreased air movement throughout. Cardiac: Irregular rate and rhythm, crisp bioprosthetic closure Vascular: 2+ radial Abdomen: Soft, nontender Extremities: Well perfused, 2+ lower extremity edema. Neuro: Nonfocal Psych: Alert orient x3, normal affect and mood Results & Data ([facility]) Vital Signs (Past 12 Hours) Vital Signs Temp Pulse Pulse Resp BP BP Pulse Ox 11/12/22 10:59 86 18 95 11/12/22 10:53 98.1 F 56 L 18 122/65 97 11/12/22 10:37 88 20 95 11/12/22 09:35 101 H 19 98 11/12/22 07:00 97.9 F 77 18 118/56 L 95 11/12/22 06:59 47 L 20 98 11/12/22 02:55 97.9 F 78 18 143/74 H 94 11/12/22 00:27 96 H 11/12/22 00:22 11/11/22 23:44 98.1 F 93 H 16 109/66 97 O2 Del Method O2 Flow Rate FiO2 11/12/22 10:59 Nasal Cannula 13 11/12/22 10:53 Nasal Cannula 14 11/12/22 10:37 Nasal Cannula 13 11/12/22 09:35 40 11/12/22 07:00 Oxymask 12 11/12/22 06:59 Nasal Cannula 11 11/12/22 02:55 Nasal Cannula 10 11/12/22 00:27 11/12/22 00:22 High Flow Nasal Cannula 10 11/11/22 23:44 Nasal Cannula 10 PG Care Time/CCT Total # of Minutes Spent Total Time Spent with Patient: Total time spent is greater than 50% in coordination of care (as documented) at patient's floor/unit and/or counseling patient: Coding Level of Care Code 25397 Subseq Hosp Care Lvl 3 Diagnoses Acute on chronic diastolic heart failure with preserved ejection fraction I50.33
[2022-11-12] MEDS ORDERED: ALBUT/IPRATROP 3MG/0.5MG NEB 3 ML VIAL NEB SCH (15:00)
--- NOTE | 2022-11-12 19:00 | Hospitalist Progress Note ---
Date of Service November 12, 2022 Assessment & Plan (1) Chronic heart failure with preserved ejection fraction: Plan: Acute on chronic HFpEF Continue Bumex, currently patient is significantly hypoxic, requires about 2 L oxygen, proceed with chest CT Patient has history of atrial fibrillation (was rate controlled without medication on previous hospitalizations without medications and spontaneously converted) currently in sinus rhythm Patient has history of bioprosthetic arctic valve replacement 2020 last echocardiogram (October 12, 2022) with moderate pulmonary hypertension now suggested as new finding (2) COPD exacerbation: Plan: Chronic CO2 retention. Ideally will continue on BiPAP especially while sleeping or napping as he can tolerate however significant compliance issues in the past. Appropriately under palliative care as outpatient Continue. (3) Elevated troponin: Plan: Suspected demand-ischemia in setting of acute HFpEF (4) Chronic respiratory failure with hypoxia and hypercapnia: Plan: Patient suffers from chronic respiratory failure with oxygen at 5 L at home reportedly is slightly noncompliant with his medications and oxygen. Consider repeat palliative care discussion once patient is more stable (5) Anemia: Plan: Patient has a history of iron def. anemia current hemoglobin is 9 this appears to be his baseline. Consider transferrin sats once his fluid status improves to see where his current true hemoglobin stands (6) Anxiety and depression: Plan: Continue lorazepam PRN Plan VTE Prophylaxis - Lovenox 40mg SQ daily Diet - low Na Disposition - continued admission on PCU Admission and Anticipated Discharge Date Admission Date: November 07, 2022 Subjective History patient requires 10 to 12 L of oxygen, continue Bumex, will initiate the patient on Solu-Medrol proceed with chest CT Physical Exam Physical Exam: General: Alert oriented x3 in no acute distress Neck: Supple thyroid is not tender Cardiovascular: No murmur no gallop Respiratory: No wheezing no crackles Abdomen: Soft bowel sounds active Constitutional: well developed, well nourished and + acute distress (using accessory muscules) Eyes: + anicteric sclerae; normal pupil size Respiratory: + respiratory distress, + labored breathing, + uses accessory muscles, + tachypneic and + prolonged expiratory phase; no audible wheezes and no stridor Auscultation: + breath sounds absent (bibasal) and + diminished lung sounds (throughout); no crackles, no rales, no rhonchi and no wheezes Cardiovascular: Rate/Rhythm: regular rhythm and + tachycardic Heart Sounds: no murmur Vessels: + JVD Extremities: normal capillary refill and + pedal edema (1+ pre-tibial, some skin wrinkling); no calf tenderness Gastrointestinal (Abdomen): normal bowel sounds, soft, nontender, no hepatosplenomegaly Skin: no rashes, warm and dry Neurologic: moves all extremities, awake and + confused (at times) Psychiatric: Orientation: alert, oriented to person and oriented to place; + not oriented to time Results & Data Results & Data ([facility]) Vital Signs (Past 12 Hours) Vital Signs Temp Pulse Pulse Resp BP Pulse Ox O2 Del Method 11/12/22 18:09 High Flow Nasal Cannula 11/12/22 16:05 98 H 11/12/22 15:44 36.4 C L 97 H 22 154/54 H 90 Nasal Cannula 11/12/22 15:18 96 H 20 89 L Nasal Cannula 11/12/22 08:00 84 11/12/22 08:00 High Flow Nasal Cannula 11/12/22 10:59 86 18 95 Nasal Cannula 11/12/22 10:53 36.7 C 56 L 18 122/65 97 Nasal Cannula 11/12/22 10:37 88 20 95 Nasal Cannula 11/12/22 09:35 101 H 19 98 11/12/22 07:00 36.6 C 77 18 118/56 L 95 Oxymask 11/12/22 06:59 47 L 20 98 Nasal Cannula O2 Flow Rate FiO2 11/12/22 18:09 14 11/12/22 16:05 11/12/22 15:44 8 11/12/22 15:18 10 11/12/22 08:00 11/12/22 08:00 10 11/12/22 10:59 13 11/12/22 10:53 14 11/12/22 10:37 13 11/12/22 09:35 40 11/12/22 07:00 12 11/12/22 06:59 11 PG Care Time/CCT Total # of Minutes Spent Total Time Spent with Patient: Total time spent is greater than 50% in coordination of care (as documented) at patient's floor/unit and/or counseling patient: Coding Level of Care Code 93388 Subseq Hosp Care Lvl 3 Diagnoses Chronic heart failure with preserved ejection fraction I50.32 COPD exacerbation J44.1 Elevated troponin R77.8 Chronic respiratory failure with hypoxia and hypercapnia J96.11; J96.12 Anemia D64.9 Anemia type: unspecified type Anxiety and depression F41.9; F32.A (1) Anemia Anemia type: unspecified type Qualified Code(s): D64.9 - Anemia, unspecified
--- NOTE | 2022-11-12 20:16 | CT Scan Report ---
CT chest diagnostic wo con CLINICAL HISTORY: Coarsening of hypoxia TECHNIQUE: Multidetector row helical CT of the chest was performed. Coronal and sagittal reformations were obtained. Automated dose lowering techniques and/or adjustment according to patient size were u tilized for this exam. CT DOSE: 557.32 mGy.cm Comparison: Comparison is made to CT chest 05/11/2022 FINDINGS: Lungs and pleura: There is a left pleural effusion with thickening of the pleura. There is smooth lob ular septal thickening and enlargement of the pulmonary vasculature with groundglass opacities in the lung. Bronchial wall thickening and emphysema are seen. Atelectasis within the lung bases. Heart and pericardium: Atrial prosthesis and mitral annular calcifications are seen. Cardiomegaly is noted. Vessels: Pulmonary trunk measures 34 mm in diameter. Moderate atherosclerotic disease is seen. Mediastinum and stephany: Numerous enlarged lymph nodes are seen measuring up to 14 mm in diameter. Chest wall and lower neck: Small thyroid nodules are noted which do not require follow-up by ACR romaine gay. Abdomen: A hiatal hernia is seen. Bones: Degenerative changes in the thoracic spine. IMPRESSION: 1. Findings compatible with interstitial and alveolar pulmonary edema with interlobular septal thick ening. Stable left pleural thickening and pulmonary edema. 2. Stable emphysema, cardiomegaly, and pulmonary hypertension. 3. Likely reactive mediastinal and hilar adenopathy. ACT 112: Negative or not required by law. Electronically signed by: Thomas Marin M.D. 11/12/2022 8:14 PM
[2022-11-13 06:08] LABS: Hematocrit (blood only) 30.4 % (40.1-51.0); Hemoglobin 8.9 g/dl (14.0-18.0); Mean Corpuscular Hemoglobin 24.6 pg (25.0-34.0); Mean Corpuscular Hgb Conc 29.3 g/dL (32.0-36.0); Mean Platelet Volume 10.1 fL (9.4-12.4); Platelet Count 270 K/uL (130-400); RDW Coefficient of Variation 19.7 % (11.5-14.5); Red Blood Count 3.62 M/uL (4.63-6.08); White Blood Count 7.73 K/ul (4.8-10.8)
[2022-11-13 06:55] LABS: BUN Creatinine Ratio 36.8 (10-20); Blood Urea Nitrogen 42 mg/dl (6-23); Calcium 9.9 mg/dl (8.5-10.1); Carbon Dioxide > 45 mmol/L (21-32); Chloride 86 mmol/L (98-107); Creatinine Clr Calc Pharmacy 60.1 ml/min; Est GFR (African American) 70.5 ml/min; Est GFR (Non-African American) 60.8 ml/min; Glucose 233 mg/dl (70-99(Fasting)); Potassium 4.4 mmol/L (3.5-5.1); Sodium 137 mmol/L (136-145)
[2022-11-13] MEDS: ALBUT/IPRATROP 3MG/0.5MG NEB 3 ML VIAL NEB SCH ×4 (07:01→19:59)
[2022-11-13] MEDS: UMECLIDINIUM/VILANTEROL 62.5/25MCG 7 PUFFS/INHALER INH SCH (08:30)
[2022-11-13] MEDS: ESCITALOPRAM OXALATE 20 MG TAB PO SCH (08:31)
[2022-11-13] MEDS: PANTOprazole 40 MG TAB PO SCH (08:31)
[2022-11-13] MEDS: DOCUSATE SODIUM 100 MG CAP PO SCH ×2 (08:31→20:06)
[2022-11-13] MEDS: POTASSIUM CHLORIDE CRTAB 20 MEQ TABCR PO SCH (08:33)
[2022-11-13] MEDS: predniSONE 20 MG TAB PO SCH (08:33)
[2022-11-13] MEDS: SPIRONOLACTONE 25 MG TAB PO SCH (08:33)
[2022-11-13] MEDS: MAGNESIUM OXIDE 400 MG TAB PO SCH (08:34)
[2022-11-13] MEDS: FLUTICASONE FUROATE 100MCG 14 PUFFS/INHALER INH SCH (08:34)
[2022-11-13] MEDS: ENOXAPARIN INJ 40 MG/0.4 ML SYR SQ SCH ×2 (08:34→08:40)
[2022-11-13] MEDS: MULTIVITAMIN TAB PO SCH (08:34)
[2022-11-13] MEDS: BUMETANIDE 1 MG in SYRINGE 0 ML IV SCH (08:35)
[2022-11-13] MEDS: AZELASTINE HCL 0.1% NASAL 200 SPRAYS/27,400 MCG BTL SCH (08:35)
--- NOTE | 2022-11-13 10:31 | Heart Failure Progress Note ---
Date of Service November 13, 2022 Assessment & Plan (1) Acute on chronic diastolic heart failure with preserved ejection fraction: Plan: 2. Severe aortic stenosis post TAVR (#34mm Medtronic Evolut Pro 04/23/2020 [facility]). 3. Anemia/prior GI bleed mild mitral stenosis 4. Paroxysmal atrial fibrillation 5. COPD/restrictive lung diseasechronic hypoxic respiratory failure on 9 L O2 Not as much urine output yesterday. Increase Bumex back to 4 mg BID today. Add Acetazolamide 500 IV. Renal function stable. Still with increased O2 requirement/intermittently hypoxia. Has congestion on exam and weight unchanged. Continue to encourage BiPAP use. Recommend continued diuresis Continue IV Bumex 4 mg twice daily Continue spironolactone 25 mg daily -- Acetazolamide 500 IV x 1 today Responding well to current regimen however continues to retain CO2. Per patient, his is moving a bed downstairs so he can stay on 1 floor. Will also move BiPAP machine downstairs so it is more accessible for him. Hopefully this will improve his compliance. Suspect he is likely near optimized from a heart failure standpoint but will remain high risk for decompensation and readmission due to his competing COPD diagnosis and chronic CO2 retention. Ultimately would recommend palliative care with transition to hospice when he's ready. Patient again stated his wishes are to get better and go home. Stated he does not like to think about end-of-life/palliative care. He wishes to remain a full code. Appreciate palliative care input. Today's plan was discussed with Dr. De. Admission and Anticipated Discharge Date Admission Date: November 07, 2022 Subjective Patient sitting at the bedside this am. Reports he feels well. Does not recall any further episodes of significant hypoxia since yesterday. Currently requiring 9 L. Continues to have lower extremity edema. Weight is stable at 204 lb this am. Not much output since yesterday, getting Bumex 1 mg instead of 4 mg. Denies chest pain, palpitations, lightheadedness. Physical Exam Physical Exam: General: Comfortable, 9 L via NC HEENT: Sclerae anicteric Neck: Supple. No JVD. - HJR Lungs: Normal respiratory effort. Bibasilar crackles. Decreased air movement throughout. Cardiac: Regular rate and rhythm, crisp bioprosthetic closure Vascular: 2+ radial Abdomen: Soft, nontender Extremities: Well perfused, 2+ lower extremity edema to the knees. Neuro: Nonfocal Psych: Alert orient x3, normal affect and mood Results & Data ([facility]) Vital Signs (Past 12 Hours) Vital Signs Temp Pulse Pulse Resp BP Pulse Ox O2 Del Method 11/13/22 10:22 82 20 91 Nasal Cannula 11/13/22 07:01 78 20 96 Nasal Cannula 11/13/22 06:46 98.1 F 61 22 139/62 93 Nasal Cannula 11/13/22 03:29 78 97 Nasal Cannula 11/13/22 03:22 98.4 F 80 16 143/68 H 100 Nasal Cannula 11/13/22 00:13 76 L High Flow Nasal Cannula 11/12/22 23:07 97.7 F 96 H 20 114/54 L 92 Nasal Cannula O2 Flow Rate 11/13/22 10:22 9 11/13/22 07:01 9 11/13/22 06:46 8 11/13/22 03:29 9 11/13/22 03:22 8 11/13/22 00:13 12 11/12/22 23:07 8 PG Care Time/CCT Total # of Minutes Spent Total Time Spent with Patient: Total time spent is greater than 50% in coordination of care (as documented) at patient's floor/unit and/or counseling patient: Coding Level of Care Code 20904 Subseq Hosp Care Lvl 3 Diagnoses Acute on chronic diastolic heart failure with preserved ejection fraction I50.33
[2022-11-13] MEDS: BUMETANIDE 4 MG in SYRINGE 0 ML IV SCH ×2 (11:04→17:57)
[2022-11-13] MEDS ORDERED: SODIUM CHLORIDE 0.65% NA SOLN 45 ML (OCEAN) ONE (14:05)
[2022-11-13] MEDS: metOLazone 5 MG TABLET PO SCH (20:05)
[2022-11-13] MEDS: SODIUM CHLORIDE 0.65% NA SOLN 45 ML (OCEAN) SCH (20:06)
[2022-11-14 06:51] LABS: BUN Creatinine Ratio 38.5 (10-20); Blood Urea Nitrogen 40 mg/dl (6-23); Calcium 9.9 mg/dl (8.5-10.1); Chloride 88 mmol/L (98-107); Creatinine Clr Calc Pharmacy 66.3 ml/min; Est GFR (African American) 78.8 ml/min; Glucose 173 mg/dl (70-99(Fasting)); Potassium 3.9 mmol/L (3.5-5.1); Sodium 138 mmol/L (136-145)
[2022-11-14 06:55] LABS: Carbon Dioxide > 45 mmol/L (21-32)
[2022-11-14] MEDS: ALBUT/IPRATROP 3MG/0.5MG NEB 3 ML VIAL NEB SCH ×4 (07:03→19:05)
[2022-11-14] MEDS: DOCUSATE SODIUM 100 MG CAP PO SCH ×2 (07:11→21:11)
[2022-11-14] MEDS: BUMETANIDE 4 MG in SYRINGE 0 ML IV SCH ×2 (07:11→16:44)
[2022-11-14] MEDS: PANTOprazole 40 MG TAB PO SCH (07:12)
[2022-11-14] MEDS: POTASSIUM CHLORIDE CRTAB 20 MEQ TABCR PO SCH (07:12)
[2022-11-14] MEDS: MAGNESIUM OXIDE 400 MG TAB PO SCH (07:12)
[2022-11-14] MEDS: SPIRONOLACTONE 25 MG TAB PO SCH (07:13)
[2022-11-14] MEDS: predniSONE 20 MG TAB PO SCH (07:13)
[2022-11-14] MEDS: MULTIVITAMIN TAB PO SCH (07:13)
[2022-11-14] MEDS: ENOXAPARIN INJ 40 MG/0.4 ML SYR SQ SCH (07:14)
[2022-11-14] MEDS: ESCITALOPRAM OXALATE 20 MG TAB PO SCH (07:14)
[2022-11-14] MEDS: metOLazone 5 MG TABLET PO SCH (07:14)
[2022-11-14] MEDS: SODIUM CHLORIDE 0.65% NA SOLN 45 ML (OCEAN) SCH ×3 (07:15→21:36)
[2022-11-14] MEDS: AZELASTINE HCL 0.1% NASAL 200 SPRAYS/27,400 MCG BTL SCH (07:16)
[2022-11-14] MEDS: FLUTICASONE FUROATE 100MCG 14 PUFFS/INHALER INH SCH (10:02)
[2022-11-14] MEDS: UMECLIDINIUM/VILANTEROL 62.5/25MCG 7 PUFFS/INHALER INH SCH (10:02)
--- NOTE | 2022-11-14 18:55 | Hospitalist Progress Note ---
Date of Service November 14, 2022 Assessment & Plan (1) Acute on chronic diastolic heart failure with preserved ejection fraction: Plan: Chest CT showed pulmonary edema, continue Bumex, continue Demadex, patient developed contraction alkalosis, at metolazone, at baseline patient is 5 L oxygen currently on 2 L oxygen no wheezing is Severe aortic stenosis post TAVR (#34mm Medtronic Evolut Pro 04/23/2020 [facility]. Acute on chronic HFpEF Currently on Bumex, chest CT showed pulmonary edema ON 11/13 -Metolazone started on 11/13 -Significant improvement in oxygen requirement -Currently on 5 L which is baseline requirement -Fluid balance negative for 2 L -Continue Diamox for contraction alkalosis (2) Alkalosis, metabolic: Plan: Most likely secondary to diuretics, contraction alkalosis -Started on Diamox 500 g p.o. twice daily on 11/14 (3) Chronic respiratory failure with hypoxia and hypercapnia: Plan: Patient suffers from chronic respiratory failure with oxygen at 5 L at home reportedly is slightly noncompliant with his medications and oxygen. Chronic CO2 retention. on BiPAP especially while sleeping or napping as he can tolerate however significant compliance issues in the past. Appropriately under palliative care as outpatient Low suspicion of COPD exacerbation as cause of his decompensation. (4) Iron deficiency anemia: Plan: Hemoglobin is around 8, patient iron deficiency anemia, started on IV iron (5) Anxiety and depression: Plan: Continue lorazepam PRN Admission and Anticipated Discharge Date Admission Date: November 07, 2022 Subjective Started on metolazone yesterday, 5 mg daily, significant improvement in oxygen requirement currently patient requires 5 L which is his baseline fluid balance is negative for 2 L, continue current management, patient developed significant contraction alkalosis, continue Diamox Review of Systems Review of Systems: Mild distress and fatigue no headache, no visual changes no speech or swallowing issues no chest pain, pressure or palpitations Persistent shortness of breath, worse with exertion, nonproductive cough no abdominal pain, nausea or vomiting, diarrhea or constipation no dysuria, hematuria or frequency no focal joint pain or swelling no back pain, CVA tenderness or radicular pain no bruising, bleeding or rashes no focal signs of weakness or numbness or altered sensation globally very weak no complaints of anxiety or depression.. Physical Exam Physical Exam: General: Alert oriented x3 in no acute distress Neck: Supple thyroid is not tender Cardiovascular: No murmur no gallop Respiratory: No wheezing no crackles Abdomen: Soft bowel sounds active Constitutional: well developed, well nourished and + acute distress (using accessory muscules) Eyes: + anicteric sclerae; normal pupil size Respiratory: + respiratory distress, + labored breathing, + uses accessory muscles, + tachypneic and + prolonged expiratory phase; no audible wheezes and no stridor Auscultation: + breath sounds absent (bibasal) and + diminished lung sounds (throughout); no crackles, no rales, no rhonchi and no wheezes Cardiovascular: Rate/Rhythm: regular rhythm and + tachycardic Heart Sounds: no murmur Vessels: + JVD Extremities: normal capillary refill and + pedal edema (1+ pre-tibial, some skin wrinkling); no calf tenderness Gastrointestinal (Abdomen): normal bowel sounds, soft, nontender, no hepatosplenomegaly Skin: no rashes, warm and dry Neurologic: moves all extremities, awake and + confused (at times) Speech / Cognition: normal cognition Psychiatric: Orientation: alert, oriented to person and oriented to place; + not oriented to time Results & Data Results & Data ([facility]) Vital Signs (Past 12 Hours) Vital Signs Temp Pulse Pulse Resp BP Pulse Ox O2 Del Method 11/14/22 18:24 94 H 11/14/22 16:47 37.0 C 98 H 20 149/64 H 94 High Flow Nasal Cannula 11/14/22 15:00 84 16 94 Nasal Cannula 11/14/22 11:37 36.7 C 80 18 145/65 H 98 High Flow Nasal Cannula 11/14/22 11:00 82 16 93 Nasal Cannula 11/14/22 07:39 High Flow Nasal Cannula 11/14/22 07:36 79 11/14/22 07:04 80 16 94 Nasal Cannula O2 Flow Rate 11/14/22 18:24 11/14/22 16:47 6 11/14/22 15:00 6.5 11/14/22 11:37 6 11/14/22 11:00 7 11/14/22 07:39 9 11/14/22 07:36 11/14/22 07:04 7 PG Care Time/CCT Total # of Minutes Spent Total Time Spent with Patient: Total time spent is greater than 50% in coordination of care (as documented) at patient's floor/unit and/or counseling patient: Coding Level of Care Code 15459 Subseq Hosp Care Lvl 3 Diagnoses Acute on chronic diastolic heart failure with preserved ejection fraction I50.33 Alkalosis, metabolic E87.3 Chronic respiratory failure with hypoxia and hypercapnia J96.11; J96.12 Iron deficiency anemia D50.9 Anxiety and depression F41.9; F32.A
[2022-11-14] MEDS: acetaZOLAMIDE 250 MG TAB PO SCH (21:36)
[2022-11-14] MEDS: IRON SUCROSE 200 MG in 0.9 % SODIUM CHLORIDE 100 ML IV SCH (21:36)
[2022-11-15] MEDS: ALBUT/IPRATROP 3MG/0.5MG NEB 3 ML VIAL NEB SCH ×2 (07:00→11:02)
[2022-11-15 07:10] LABS: BUN Creatinine Ratio 36.8 (10-20); Blood Urea Nitrogen 43 mg/dl (6-23); Calcium 9.8 mg/dl (8.5-10.1); Carbon Dioxide > 45 mmol/L (21-32); Chloride 87 mmol/L (98-107); Creatinine Clr Calc Pharmacy 58.2 ml/min; Est GFR (African American) 68.3 ml/min; Est GFR (Non-African American) 58.9 ml/min; Glucose 257 mg/dl (70-99(Fasting)); Potassium 3.6 mmol/L (3.5-5.1); Sodium 138 mmol/L (136-145)
[2022-11-15] MEDS: acetaZOLAMIDE 250 MG TAB PO SCH (08:20)
[2022-11-15] MEDS: metOLazone 5 MG TABLET PO SCH (08:21)
[2022-11-15] MEDS: DOCUSATE SODIUM 100 MG CAP PO SCH (08:21)
[2022-11-15] MEDS: ESCITALOPRAM OXALATE 20 MG TAB PO SCH (08:22)
[2022-11-15] MEDS: PANTOprazole 40 MG TAB PO SCH (08:22)
[2022-11-15] MEDS: POTASSIUM CHLORIDE CRTAB 20 MEQ TABCR PO SCH (08:22)
[2022-11-15] MEDS: MULTIVITAMIN TAB PO SCH (08:22)
[2022-11-15] MEDS: AZELASTINE HCL 0.1% NASAL 200 SPRAYS/27,400 MCG BTL SCH (08:23)
[2022-11-15] MEDS: SODIUM CHLORIDE 0.65% NA SOLN 45 ML (OCEAN) SCH (08:23)
[2022-11-15] MEDS: SPIRONOLACTONE 25 MG TAB PO SCH (08:23)
[2022-11-15] MEDS: BUMETANIDE 4 MG in SYRINGE 0 ML IV SCH (08:23)
[2022-11-15] MEDS: ENOXAPARIN INJ 40 MG/0.4 ML SYR SQ SCH (08:24)
[2022-11-15] MEDS: FLUTICASONE FUROATE 100MCG 14 PUFFS/INHALER INH SCH (08:24)
[2022-11-15] MEDS: MAGNESIUM OXIDE 400 MG TAB PO SCH (08:24)
[2022-11-15] MEDS: UMECLIDINIUM/VILANTEROL 62.5/25MCG 7 PUFFS/INHALER INH SCH (08:24)
[2022-11-15] MEDS: IRON SUCROSE 200 MG in 0.9 % SODIUM CHLORIDE 100 ML IV SCH ×2 (08:28→09:00)
[2022-11-15] MEDS ORDERED: predniSONE 20 MG TAB PO SCH (09:00)
--- NOTE | 2022-11-15 12:49 | Cardiology Progress Note ---
Date of Service November 15, 2022 Assessment & Plan Admission and Anticipated Discharge Date Admission Date: November 07, 2022 Subjective He feels like he is at his baseline. He denies any chest pain or chest pressure. He is back down to 5 L of oxygen which is also his baseline he had some mild shortness of breath talking in sentences but describes this as normal. His lower extremity edema has improved. He had a very good diuresis yesterday his appetite is back to his baseline as well and he wants to go home. He denies any chest pain chest pressure chest heaviness or palpitations Results & Data ([facility]) Vital Signs (Past 12 Hours) Vital Signs Temp Pulse Pulse Resp BP Pulse Ox O2 Del Method 11/15/22 12:19 High Flow Nasal Cannula 11/15/22 11:22 36.7 C 94 H 20 138/69 97 High Flow Nasal Cannula 11/15/22 11:03 77 18 99 Nasal Cannula 11/15/22 08:19 92 H 18 179/66 H 92 High Flow Nasal Cannula 11/15/22 07:57 71 11/15/22 07:02 85 18 97 Nasal Cannula 11/15/22 04:43 36.5 C 85 23 135/76 90 High Flow Nasal Cannula O2 Flow Rate 11/15/22 12:19 5 11/15/22 11:22 5 11/15/22 11:03 6 11/15/22 08:19 5 11/15/22 07:57 11/15/22 07:02 5 11/15/22 04:43 6 (1) Acute on chronic diastolic heart failure with preserved ejection fraction: Plan: 2. Severe aortic stenosis post TAVR (#34mm Medtronic Evolut Pro 04/23/2020 [facility]). 3. Anemia/prior GI bleed mild mitral stenosis 4. Paroxysmal atrial fibrillation 5. COPD/restrictive lung diseasechronic hypoxic respiratory failure on 5 L O2 He seems to be back to his baseline. He is down to 5 L. He had a very good diuresis with a higher dose of metolazone yesterday. I would continue with all of his inpatient medications as they are listed upon discharge today. We discussed a low-salt diet and daily weights. He will need to see the heart failure nurse practitioner next week in the office for [facility] he will need close monitoring of his BMP and his magnesium given the tremendous amount of diuretics that he is on. Specific changes include his spironolactone being 25 mg once a day instead of twice daily; K-Macy increased to 40 mEq daily; and his metolazone increased to 5 mg daily; as well as the addition of Diamox. Additionally conversations with regards to palliative care and hospice were had earlier in the admission. As it has been well-documented he has no interest at this point. From my standpoint he can be discharged home with the above follow-up Physical Exam Physical Exam: General: Comfortable, 5 L via NC Lungs: Normal respiratory effort. right basilar crackles. Decreased air movement throughout. Cardiac: Regular rate and rhythm, crisp bioprosthetic closure abd: distended Extremities:, 1+ lower extremity edema to the knees. Psych: normal affect and mood
--- NOTE | 2022-11-15 18:32 | Discharge Summary ---
Date of Service November 15, 2022 Admission HPI Per Admitting Provider 77-M with chronic diastolic HF, mixed obstructive restrictive lung disease presents to the ED with a chief complaint of shortness of breath. The patient states that he is chronically short of breath and uses 5 to 6 L of oxygen at home 24 hours a day. He sees outpt hospice thru [facility], but is not yet on hospice. He sees [facility] heart failure clinic. His states that he is not compliant with his medication/oxygen as he should be, this is also noted in palliative care note. The patient started having shortness of breath at 10 PM on the night prior to admission. It worsened through the day today. His called EMS this afternoon due to trouble breathing. EMS initially on scene found his pulse ox to be 68% on his chronic home oxygen of 5 L. He does have chronic swelling of his legs but states that its not severely changed from his baseline. Denies any recent illness or fevers or cough. No chest pains. EMS provided nebulizer treatment and transported him on CPAP IN the Er was given additional nebulizer treatments and IV lasix appears to have heart failure on initial CXR. Principal Diagnosis Acute chronic hypoxic respiratory failure due to acute on chronic diastolic heart failure Severe iron deficiency anemia Discharge Exam General: Alert oriented x3 in no acute distress Neck: Supple thyroid is not tender Cardiovascular: No murmur no gallop Respiratory: No wheezing no crackles Abdomen: Soft bowel sounds active Constitutional well developed, well nourished and + acute distress (using accessory muscules) Eyes + anicteric sclerae; normal pupil size Respiratory + respiratory distress, + labored breathing, + uses accessory muscles, + tachypneic and + prolonged expiratory phase; no audible wheezes and no stridor Auscultation: + breath sounds absent (bibasal) and + diminished lung sounds (throughout); no crackles, no rales, no rhonchi and no wheezes Cardiovascular Rate/Rhythm: regular rhythm and + tachycardic Heart Sounds: no murmur Vessels: + JVD Extremities: normal capillary refill and + pedal edema (1+ pre-tibial, some skin wrinkling); no calf tenderness Gastrointestinal (Abdomen) normal bowel sounds, soft, nontender, no hepatosplenomegaly Skin no rashes, warm and dry Neurologic moves all extremities, awake and + confused (at times) Speech / Cognition: normal cognition Psychiatric Orientation: alert, oriented to person and oriented to place; + not oriented to time Discharge Data Allergies Allergy/AdvReac Type Severity Reaction Status Date / Time No Known Allergies Allergy Verified 11/07/22 16:56 Consultations 11/07/22 16:16 ED Decision to Admit Stat 11/07/22 19:32 MNP CHF Program Referral Routine 11/10/22 11:28 Consult Palliative Care Routine Ordered Studies 11/12/22 19:00 CT chest diagnostic wo con Routine Hospital Course (1) Acute on chronic diastolic heart failure with preserved ejection fraction: Started on Bumex intravenously, patient developed contraction alkalosis, acetazolamide was added to his regimen, metolazone also was added, chest CT showed pulmonary edema, -Currently his oxygen requirement at the baseline patient was discharged home, repeat BMP in 1 week Severe aortic stenosis post TAVR (#34mm [employer] Evolut Pro 04/23/2020 [facility]. (2) Alkalosis, metabolic: Most likely secondary to diuretics, contraction alkalosis -Started on Diamox 500 g p.o. twice daily on 11/14 (3) Chronic respiratory failure with hypoxia and hypercapnia: Patient suffers from chronic respiratory failure with oxygen at 5 L at home reportedly is slightly noncompliant with his medications and oxygen. Chronic CO2 retention. on BiPAP especially while sleeping or napping as he can tolerate however significant compliance issues in the past. Appropriately under palliative care as outpatient Low suspicion of COPD exacerbation as cause of his decompensation. (4) Iron deficiency anemia: Hemoglobin is around 8, patient iron deficiency anemia, started on IV iron -Patient discharged on oral iron, patient is to follow-up with GI On outpatient basis for possible EGD colonoscopy, patient needs to be referred to a youth probation officer by his PCP (5) Anxiety and depression: Continue lorazepam PRN Total Time Total Time Spent Total Time Spent (In Minutes): 45 min Discharge Plan Discharge Items Patient Disposition: Home - Self-Care Reason For Visit: ACUTE ON CHRONIC RESPIRATORY FAILURE Discharge Diagnosis: Acute on chronic hypoxic spectra failure due to decompensated acute on chronic diastolic heart failure Activity: Resume your previous activity Lifting: Gradually increase as tolerated Bathing: No limitations Sexual Activity: When tolerated Driving/Machine Use: No limitations Weightbearing: Full weightbearing Non-emergency contact: Primary Care Provider and [employer] Call non-emergency contact if: you have any medication questions Follow-up/Referrals: Suki Herrera PA-C [Physician Screening Technician] - 11/20/22 11:00 am Eric Westbrook DO [Primary Care Provider] - (PCP follow up appointment will be made 11/17/22. Will call patient with appointment date and time.) Diet: Carb Consistent or DM2 and Heart Healthy Ambulatory Orders: Basic Metabolic Panel (Routine) Timeframe: 1 Week Location: Determined by Patient Ordered By: Zac Maguire Attending Provider Instructions: Please proceed with checking your BMP in 1 week (blood work-up), orders placed in your discharge order You are suffering from iron deficiency anemia please ask your primary doctor to refer you to a youth probation officer for further work-up, iron please added to your discharge medication Pending Studies at Discharge: No Stand-Alone Forms: [employer], Smoking Cessation Medications and DC Order Prescriptions: New acetazolamide 500 mg capsule, extended release 500 mg PO BID17 Qty: 60 0RF metolazone 5 mg Tablet 5 mg PO QAM Qty: 60 0RF Saline Mist 0.65 % Aerosol,Wynot 1 spray NA TID Qty: 44 0RF magnesium oxide 400 mg (241.3 mg magnesium) Tablet 400 mg PO DAILY Qty: 60 0RF Anoro Ellipta 62.5-25 mcg/actuation Blister With Device 1 ea inhalation DAILY Qty: 60 0RF Rubina-Sequels (iron-vit c) 200 mg (65 mg iron)-25 mg tablet extended release 1 tab PO DAILY Qty: 90 0RF Continued melatonin 3 mg capsule 6 mg PO HS docusate sodium 100 mg capsule 100 mg PO BID multivitamin [Multiple Vitamins] Tablet 1 tab PO DAILY escitalopram oxalate 20 mg tablet 20 mg PO DAILY 14 Days Qty: 14 0RF pantoprazole 40 mg tablet,delayed release (DR/EC) 40 mg PO DAILY Qty: 90 3RF atorvastatin 80 mg tablet 80 mg PO QPM Qty: 90 3RF albuterol sulfate 90 mcg/actuation HFA aerosol inhaler 2 puff inhalation Q6H PRN (Reason: Shortness Of Breath Or Wheezing) Qty: 18 3RF (DME) Oxygen Home Liters Per Minute See Rx Instructions .ROUTE .MEDSUPPLY Qty: 1 0RF Rx Instructions: 5 L NC O2 at rest/sleep. 8 L NC O2 with activity/ambulation. buspirone 10 mg tablet 10 mg PO TID PRN (Reason: Anxiety) bumetanide 2 mg tablet 4 mg PO .DAILY@0600,1200 Rx Instructions: 2 tablet in the AM @ 0600; 2 tab @ lunch Changed spironolactone 25 mg tablet 25 mg PO DAILY 90 Days Qty: 180 3RF potassium chloride 20 mEq tablet extended release 40 meq PO QAM Qty: 60 0RF Discontinued metolazone 2.5 mg tablet 2.5 mg PO DAILY Qty: 90 3RF Discharge Orders: Discharge Order (Routine); Ordered 11/15/22 Ordered By: Zac Nuñez Admission Data Admit Date/Time: 11/07/22 16:21 Attending Provider: Zac Nuñez Admit Provider: Jake Briseno Primary Care Provider: Eric Westbrook Other Providers: Jake Briseno ; Suki Herrera ; Chikis Fu Other Interventions: Discharge Summary Assessment (RN) Last Done: 11/15/22 13:53 Coding Level of Care Code D/C DAY MANAGEMENT >30 MINS Diagnoses Acute on chronic diastolic heart failure with preserved ejection fraction I50.33 Alkalosis, metabolic E87.3 Chronic respiratory failure with hypoxia and hypercapnia J96.11; J96.12 Iron deficiency anemia D50.9 Anxiety and depression F41.9; F32.A
== END 2022-11-15 15:04 | disposition home or self-care (01) | DRG 291 ==
LOC: ED 14:08 → 2S 16:21 → SUATTDRO 16:21 → 2S 19:15
DX: Z79.899 Other long term (current) drug therapy; I87.8 Other specified disorders of veins; Z91.14 Patient's other noncompliance with medication regimen; G47.33 Obstructive sleep apnea (adult) (pediatric); E87.3 Alkalosis; J44.1 Chronic obstructive pulmonary disease with (acute) exacerbation; I24.8 Other forms of acute ischemic heart disease; J96.21 Acute and chronic respiratory failure with hypoxia; Z95.2 Presence of prosthetic heart valve; I50.33 Acute on chronic diastolic (congestive) heart failure; Z99.81 Dependence on supplemental oxygen; F41.8 Other specified anxiety disorders; D50.9 Iron deficiency anemia, unspecified; E78.5 Hyperlipidemia, unspecified; T50.1X5A Adverse effect of loop [high-ceiling] diuretics, initial encounter; J96.12 Chronic respiratory failure with hypercapnia; Z91.199 Patient's noncompliance with other medical treatment and regimen due to unspecified reason; I48.0 Paroxysmal atrial fibrillation; I27.20 Pulmonary hypertension, unspecified; R45.1 Restlessness and agitation; Z87.891 Personal history of nicotine dependence

== ENCOUNTER 2022-11-23 16:57 | Inpatient (IN) ==
[2022-11-23 17:43] LABS: Basophils # (auto) 0.05 K/uL (0-0.2); Basophils % (auto) 0.7 %; Eosinophils # (auto) 0.21 K/uL (0-0.50); Eosinophils % (auto) 2.8 %; Hematocrit (blood only) 32.6 % (40.1-51.0); Hemoglobin 9.8 g/dl (14.0-18.0); Immature Granulocytes # (auto) 0.03 K/uL (0.00-0.02); Immature Granulocytes % (auto) 0.4 %; Lymphocytes # (auto) 0.37 K/uL (1.2-3.4); Mean Corpuscular Hemoglobin 24.7 pg (25.0-34.0); Mean Corpuscular Hgb Conc 30.1 g/dL (32.0-36.0); Mean Corpuscular Volume 82.1 fL (80.0-100.0); Mean Platelet Volume 10.5 fL (9.4-12.4); Monocytes # (auto) 0.65 K/uL (0.24-0.82); Monocytes % (auto) 8.8 %; Neutrophils # (auto) 6.06 K/uL (1.4-6.5); Neutrophils % (auto) 82.3 %; Platelet Count 328 K/uL (130-400); RDW Standard Deviation 53.7 fL (36.4-46.3); Red Blood Count 3.97 M/uL (4.63-6.08); White Blood Count 7.37 K/ul (4.8-10.8)
--- NOTE | 2022-11-23 18:00 | XRay Report ---
XR chest 1V portable CLINICAL HISTORY: SOB TECHNIQUE: Single frontal radiograph of the chest was obtained. Comparison: Comparison is made to chest radiograph 11/09/2022 FINDINGS: No lines and tubes are seen. Cardiomegaly is noted. The aortic arch is calcified. Reticular interstit ial opacities are seen. Bilateral lower lung airspace opacities are seen. Mild bilateral pleural effu sions are seen. IMPRESSION: 1. Bilateral lower lung predominant airspace opacities which may represent atelectasis, pneumonia, a nd/or aspiration. Cardiomegaly. 2. Mild bilateral pleural effusions are seen. ACT 112: Negative or not required by law. Electronically signed by: Thomas Marin M.D. 11/23/2022 5:59 PM
[2022-11-23 18:01] LABS: Partial Thromboplastin Ratio 0.8; Partial Thromboplastin Time 22.8 Seconds (21.0-31.0); Prothrombin Time 10.9 Seconds (9.0-12.0)
[2022-11-23 18:15] LABS: Albumin Globulin Ratio 1.2 (0.9-2); Albumin Level 4.1 gm/dl (3.4-5.0); BUN Creatinine Ratio 37.4 (10-20); Bilirubin,Total 0.3 mg/dl (0.2-1.0); Calcium 10.2 mg/dl (8.5-10.1); Creatinine Clr Calc Pharmacy 52.2 ml/min; Est GFR (African American) 59.6 ml/min; Est GFR (Non-African American) 51.4 ml/min; Globulin 3.4 gm/dl (2.5-4.0); Magnesium 2.6 mg/dl (1.7-2.4); Total Protein 7.5 gm/dl (6.0-8.3)
[2022-11-23 18:16] LABS: Troponin I High Sensitivity 26.2 pg/ml (0-20)
[2022-11-23 18:30] LABS: Influenza A virus by PCR Negative (Neg); Influenza B virus by PCR Negative (Neg); RSV by PCR Negative (Neg); SARS CoV2 RNA(COVID-19) Ceph NEGATIVE (Negative)
[2022-11-23] MEDS ORDERED: BUMETANIDE 4 MG in SYRINGE 0 ML IV ONE (18:39)
[2022-11-23] MEDS ORDERED: POTASSIUM CHLORIDE CRTAB 20 MEQ TABCR PO STA ×2 (18:39→23:30)
[2022-11-23] MEDS ORDERED: ALBUT/IPRATROP 3MG/0.5MG NEB 3 ML VIAL NEB ONE (18:39)
[2022-11-23] MEDS ORDERED: methylPREDNISolone 125 MG/2 ML VIAL IV STA (18:39)
[2022-11-23] MEDS ORDERED: guaiFENesin 600 MG TABCR PO STA (18:39)
--- NOTE | 2022-11-23 21:59 | Emergency Department Note ---
Impression & Plan Acute on chronic respiratory failure with hypoxia and hypercapnia, COPD with emphysema, Chronic diastolic (congestive) heart failure ED Provider Note NAME: TIEN PIERCE AGE: 77 SEX: M ARRIVES VIA: Ambulance INFORMANT: Patient ED PROVIDER(S): Kurt Lugo MD CHIEF COMPLAINT: Shortness of breath. PLAN: Disposition: Admit MEDICAL DECISION MAKING: The patient is a pleasant 77-year-old gentleman with a past medical history of COPD on home oxygen 5-6 L, CHF, hypertension, iron deficiency anemia who presents to emergency department via EMS for worsening shortness of breath from his baseline that began today. He feels as though he has not had increased fluid retention though does admit his legs are more swollen. He denies any dietary indiscretion over the holiday. He denies any fevers. He has had mild cough without any productive sputum. Denies nausea, vomiting, diarrhea. On arrival the patient is uncomfortable, mildly dyspneic but no acute distress, afebrile but tachypneic in the low 30s and heart rate in the 90s with O2 satura tion mid 90s on his home nasal cannula. On exam the patient has diminished breath sounds of bilateral lung anderson with underlying wheeze and mild rhonchi at the bases. He has 2+ bilateral lower extremity pitting edema EKG without overt ST elevation. Chest x-ray with bilateral lower lung airspace opacities which are nonspecific and may reflect atelectasis versus pneumonia though given patient's history and exam pulmonary edema is also suspected. Mild bilateral pleural effusions are seen. WBC and platelets within normal limits. H/H similar to prior values. Chemistry with bicarb of 44 consistent with the patient's chronic respiratory failure with hypoxia and hypercapnia. Potassium 3.0 with oral repletion provided. High- sensitivity troponin 26, nonspecific. BNP 216, nonspecific and improved from prior values. COVID-19, influenza and RSV PCR's were negative. Patient was treated with Solu-Medrol, guaifenesin, hour-long DuoNeb as well as 4 mg of IV Bumex. Upon evaluation the patient did have significant improvement in his work of breathing. However he still did not feel as though he had returned to his baseline. Given the severity of his flare of symptoms we did agree to proceed with admission for further management. Procalcitonin ordered to help further clarify whether chest x-ray findings may be infectious versus more consistent with his CHF as the patient denies having any fevers and does not have a leukocytosis. Case was discussed with Dr. Aguilera, admitting resident with Dr. Loomis [facility] hospitalist, who will evaluate the patient for admission. Procalcitonin undetectable. Further management per admitting team. Triage Nursing notes reviewed and agree them. Prior medical records reviewed Vital Signs: reviewed Differential diagnosis: Reactive airway disease, pneumonia, pneumothorax, COPD, CHF, infections, cardiac ischemia, pulmonary embolism, musculoskeletal, gastrointestinal, as well as other pathologies. ER treatment provided: See below. Diagnostics interpreted by me: ECG: Sinus rhythm with first-degree block, PACs, 96 bpm, nonspecific intraventricular conduction block. No overt ST elevation. QTc 490, QRS 126. Cardiac Monitoring: An order for continuous cardiac monitoring was placed and demonstrated Sinus rhythm with first-degree block, PACs, 96 bpm. Laboratory studies: See below Imaging studies: See below Consultation(s): Case was discussed with Dr. Aguilera, admitting resident with Dr. Loomis [facility] hospitalist, who will evaluate the patient for admission. HPI: The patient is a pleasant 77-year-old gentleman with a past medical history of COPD on home oxygen 5-6 L, CHF, hypertension, iron deficiency anemia who presents to emergency department via EMS for worsening shortness of breath from his baseline that began today. He feels as though he has not had increased fluid retention though does admit his legs are more swollen. He denies any dietary indiscretion over the holiday. He denies any fevers. He has had mild cough without any productive sputum. Denies nausea, vomiting, diarrhea. ROS: See above HPI for pertinent positives & negatives. A total of 10 systems reviewed and were otherwise negative. VITALS:See Below PHYSICAL EXAMINATION: GENERAL: Awake, alert, fatigued-appearing, in no distress HENT: Normocephalic, atraumatic. Oropharynx unremarkable. EYES: Normal conjunctiva. Sclera non-icteric. NECK: Supple. No nuchal rigidity. FROM. No JVD. RESPIRATORY: Diminished breath sounds of bilateral lung anderson with underlying wheeze and mild rhonchi at the bases. CARDIAC: Regular rate, normal rhythm. Extremities warm and well perfused. Pulses equal. ABDOMEN: Soft, non-distended. No tenderness to palpation. No rebound or guarding. No masses. RECTAL: Deferred. MUSCULOSKELETAL: Chest examination reveals no tenderness. The back is symmet rical on inspection without obvious abnormality. There is no CVA tenderness to palpation. No joint edema. LOWER EXTREMITIES: Calves are equal size bilaterally and non-tender. 2+ BLE edema. Stasis dermatitis. NEURO: Normal sensorium. No sensory or motor deficits noted. SKIN: No rash or jaundice noted. Kurt Lugo MD Past Med/Surg History Medical History Acute blood loss anemia Acute exacerbation of chronic obstructive pulmonary disease Acute on chronic diastolic heart failure with preserved ejection fraction Allergic rhinitis with postnasal drip Anxiety Aortic stenosis s/p TAVR 2020 ([facility]) CAD (coronary artery disease) Carotid stenosis, bilateral Chronic cor pulmonale Chronic diastolic (congestive) heart failure Chronic heart failure with preserved ejection fraction Chronic respiratory failure with hypoxia Chronic respiratory failure with hypoxia and hypercapnia on home O2 5L rest; 8L with activity COPD (chronic obstructive pulmonary disease) Elevated troponin I level Generalized weakness GERD (gastroesophageal reflux disease) History of GI bleed Hypertension Iron deficiency anemia Pulmonary edema Pulmonary hypertension Tobacco use disorder Uremia Surgical History History of left-sided carotid endarterectomy 2014 S/P appendectomy Family History Father Hypertension Mother Hypotension Breast cancer Other No family history of adverse response to anesthesia No family history of bleeding disorder Social History Smoking Status: Unknown if ever smoked Tobacco Type: Cigarettes packs per day: 1; Second Hand Exposure: No; Hx Alcohol Use: Yes Alcohol type: hard liquor Alcohol Intake Frequency: Monthly or Less Alcohol Intake Frequency Comment: 1 bottle of Manny Dupree a month Hx Substance Use: No Preferred Language: Khmer Communication Ability: Effective Visual Impairment: No 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 Beliefs That Will Affect Care: None marital status: Current Living Situation: Family Current Living Situation Comment: home with current occupational status: retired Feels Safe at Home: Yes Assistive Devices: Cane, CPAP, Oxygen - Continuous and Walker Allergies Allergies Allergy/AdvReac Type Severity Reaction Status Date / Time No Known Allergies Allergy Verified 11/23/22 22:58 Home Meds Home Medications Medication Instructions Recorded Confirmed multivitamin (Multiple Vitamins 1 tab PO DAILY 05/21/20 11/23/22 tablet) docusate sodium 100 mg capsule 100 mg PO BID 06/10/20 11/23/22 melatonin 3 mg capsule 6 mg PO HS 05/26/22 11/23/22 buspirone 10 mg tablet 10 mg PO TID PRN Anxiety 07/22/22 11/23/22 bumetanide 2 mg tablet 4 mg PO .DAILY@0600,1200 10/10/22 11/23/22 fluticasone fur. 100 mcg-umeclid 1 inh inhalation DAILY 11/17/22 11/23/22 62.5 mcg-vilant 25 mcg inhalat.powder (Trelegy Ellipta) Previous Rx's Medication Instructions Recorded Oxygen Home #1 ea 08/07/22 atorvastatin 80 mg tablet 80 mg PO QPM #90 tabs 09/29/22 escitalopram oxalate 20 mg tablet 20 mg PO DAILY 14 days #14 tabs 09/29/22 pantoprazole 40 mg tablet,delayed 40 mg PO DAILY #90 tabs 09/29/22 release albuterol sulfate 90 mcg/actuation 2 puff inhalation Q6H PRN 10/01/22 aerosol inhaler Shortness Of Breath Or Wheezing #18 grams metolazone 5 mg tablet 5 mg PO QAM #60 tabs 11/15/22 sodium chloride 0.65 % nasal spray 1 spray NA TID #44 mL 11/15/22 aerosol (Saline Mist) spironolactone 25 mg tablet 25 mg PO DAILY 90 days #180 tabs 11/15/22 umeclidinium 62.5 mcg-vilanterol 1 ea inhalation DAILY #60 ea 11/15/22 25 mcg/actuation powdr for inhalation (Anoro Ellipta) magnesium oxide 400 mg (241.3 mg 400 mg PO DAILY #7 tabs 11/17/22 magnesium) tablet acetazolamide 500 mg 500 mg PO DAILY #30 caps 11/20/22 capsule,extended release potassium chloride 20 mEq 40 meq PO BID #360 tabs 11/20/22 tablet,extended release Results & Data (ED) Vital Signs Vital Signs - 24 hr 11/23/22 17:10 11/23/22 17:23 11/23/22 17:36 Temperature 37.1 C Temperature Source Oral Pulse Rate 95 H Pulse Rate [Apical] Respiratory Rate 31 H 20 Respiratory Effort / Characteristics Labored Non-Labored Spontaneous Non-Labored Spontaneous Respiratory Depth Normal Respiratory Pattern Regular Blood Pressure 144/71 H Blood Pressure [Right Arm] Blood Pressure Mean 95 Blood Pressure Mean [Right Arm] Pulse Oximetry 94 99 92 Oxygen Delivery Method Nasal Cannula Nasal Cannula Nasal Cannula Oxygen Flow Rate 5 4 5 Sepsis Recent Fever Within 48 Hours No Sepsis New/Unexplained Change in Mental Status N/A Sepsis Action Taken by Nursing No Action Required 11/23/22 19:27 11/23/22 19:28 11/23/22 19:28 Temperature Temperature Source Pulse Rate Pulse Rate [Apical] Respiratory Rate Respiratory Effort / Characteristics Respiratory Depth Respiratory Pattern Blood Pressure Blood Pressure [Right Arm] Blood Pressure Mean Blood Pressure Mean [Right Arm] Pulse Oximetry 99 Oxygen Delivery Method Nasal Cannula Nasal Cannula Nasal Cannula Oxygen Flow Rate 4 4 Sepsis Recent Fever Within 48 Hours Sepsis New/Unexplained Change in Mental Status Sepsis Action Taken by Nursing 11/23/22 19:28 11/23/22 20:07 11/23/22 21:27 Temperature Temperature Source Pulse Rate Pulse Rate [Apical] 90 88 Respiratory Rate 24 18 Respiratory Effort / Characteristics Spontaneous Respiratory Depth Respiratory Pattern Blood Pressure Blood Pressure [Right Arm] 168/65 H 143/60 H Blood Pressure Mean Blood Pressure Mean [Right Arm] 99 87 Pulse Oximetry 100 99 98 Oxygen Delivery Method Room Air Nasal Cannula Nasal Cannula Oxygen Flow Rate 5 4 Sepsis Recent Fever Within 48 Hours Sepsis New/Unexplained Change in Mental Status Sepsis Action Taken by Nursing 11/23/22 23:00 Temperature Temperature Source Pulse Rate Pulse Rate [Apical] 92 H Respiratory Rate 20 Respiratory Effort / Characteristics Respiratory Depth Respiratory Pattern Blood Pressure Blood Pressure [Right Arm] 131/75 Blood Pressure Mean Blood Pressure Mean [Right Arm] 93 Pulse Oximetry 94 Oxygen Delivery Method Room Air Oxygen Flow Rate Sepsis Recent Fever Within 48 Hours Sepsis New/Unexplained Change in Mental Status Sepsis Action Taken by Nursing Laboratory Data Attestation: I reviewed the patient's lab results. Result diagrams: 11/23/22 17:16 11/23/22 17:16 Lab Results 11/23/22 11/23/22 11/23/22 Range/Units 17:16 17:16 17:16 WBC 7.37 (4.8-10.8) K/ul RBC 3.97 L (4.63-6.08) M/uL Hgb 9.8 L (14.0-18.0) g/dl Hct 32.6 L (40.1-51.0) % MCV 82.1 (80.0-100.0) fL MCH 24.7 L (25.0-34.0) pg MCHC 30.1 L (32.0-36.0) g/dL RDW Std Deviation 53.7 H (36.4-46.3) fL RDW Coeff of [place] 18.0 H (11.5-14.5) % Plt Count 328 (130-400) K/uL MPV 10.5 (9.4-12.4) fL Immature Gran % (Auto) 0.4 % Neut % (Auto) 82.3 % Lymph % (Auto) 5.0 % [place] % (Auto) 8.8 % Eos % (Auto) 2.8 % Baso % (Auto) 0.7 % Neut # (Auto) 6.06 (1.4-6.5) K/uL Lymph # (Auto) 0.37 L (1.2-3.4) K/uL [place] # (Auto) 0.65 (0.24-0.82) K/uL Eos # (Auto) 0.21 (0-0.50) K/uL Baso # (Auto) 0.05 (0-0.2) K/uL Immature Gran # (Auto) 0.03 H (0.00-0.02) K/uL PT 10.9 (9.0-12.0) Seconds INR 1.0 (0.9-1.1) APTT 22.8 (21.0-31.0) Seconds PTT Ratio 0.8 Sodium 136 (136-145) mmol/L Potassium 3.0 L (3.5-5.1) mmol/L Chloride 86 L (98-107) mmol/L Carbon Dioxide 44 H* (21-32) mmol/L Anion Gap 6 (3-11) BUN 49 H (6-23) mg/dl Creatinine 1.31 (0.6-1.4) mg/dl Est Cr Clr Drug Dosing 52.2 ml/min Est GFR ( Amer) 59.6 ml/min Est GFR (Non-Af Amer) 51.4 ml/min BUN/Creatinine Ratio 37.4 H (10-20) Glucose 261 H (70-99(Fasting)) mg/dl Calcium 10.2 H (8.5-10.1) mg/dl Magnesium 2.6 H (1.7-2.4) mg/dl Total Bilirubin 0.3 (0.2-1.0) mg/dl AST 16 (13-39) U/L ALT 14 (7-52) U/L Alkaline Phosphatase 101 (34-104) U/L Troponin I High Sens 26.2 H (0-20) pg/ml B-Natriuretic Peptide (0-100) pg/ml Total Protein 7.5 (6.0-8.3) gm/dl Albumin 4.1 (3.4-5.0) gm/dl Globulin 3.4 (2.5-4.0) gm/dl Albumin/Globulin Ratio 1.2 (0.9-2) Procalcitonin (0-0.5) ng/ml SARS-CoV-2 (PCR) (Negative) Influenza Type A (PCR) (Neg) Influenza Type B (PCR) (Neg) RSV (RT-PCR) (Neg) 11/23/22 11/23/22 11/23/22 Range/Units 17:16 17:16 17:16 WBC (4.8-10.8) K/ul RBC (4.63-6.08) M/uL Hgb (14.0-18.0) g/dl Hct (40.1-51.0) % MCV (80.0-100.0) fL MCH (25.0-34.0) pg MCHC (32.0-36.0) g/dL RDW Std Deviation (36.4-46.3) fL RDW Coeff of [place] (11.5-14.5) % Plt Count (130-400) K/uL MPV (9.4-12.4) fL Immature Gran % (Auto) % Neut % (Auto) % Lymph % (Auto) % [place] % (Auto) % Eos % (Auto) % Baso % (Auto) % Neut # (Auto) (1.4-6.5) K/uL Lymph # (Auto) (1.2-3.4) K/uL [place] # (Auto) (0.24-0.82) K/uL Eos # (Auto) (0-0.50) K/uL Baso # (Auto) (0-0.2) K/uL Immature Gran # (Auto) (0.00-0.02) K/uL PT (9.0-12.0) Seconds INR (0.9-1.1) APTT (21.0-31.0) Seconds PTT Ratio Sodium (136-145) mmol/L Potassium (3.5-5.1) mmol/L Chloride (98-107) mmol/L Carbon Dioxide (21-32) mmol/L Anion Gap (3-11) BUN (6-23) mg/dl Creatinine (0.6-1.4) mg/dl Est Cr Clr Drug Dosing ml/min Est GFR ( Amer) ml/min Est GFR (Non-Af Amer) ml/min BUN/Creatinine Ratio (10-20) Glucose (70-99(Fasting)) mg/dl Calcium (8.5-10.1) mg/dl Magnesium (1.7-2.4) mg/dl Total Bilirubin (0.2-1.0) mg/dl AST (13-39) U/L ALT (7-52) U/L Alkaline Phosphatase (34-104) U/L Troponin I High Sens (0-20) pg/ml B-Natriuretic Peptide 216 H (0-100) pg/ml Total Protein (6.0-8.3) gm/dl Albumin (3.4-5.0) gm/dl Globulin (2.5-4.0) gm/dl Albumin/Globulin Ratio (0.9-2) Procalcitonin < 0.05 (0-0.5) ng/ml SARS-CoV-2 (PCR) NEGATIVE (Negative) Influenza Type A (PCR) Negative (Neg) Influenza Type B (PCR) Negative (Neg) RSV (RT-PCR) Negative (Neg) Administered Medications Discontinued Medications Albuterol (Albut/Ipratrop 3mg/0.5mg Neb 3 Ml Vial) 12 ml NEB ONE ONE; Protocol Stop: 11/23/22 18:40 Last Admin: 11/23/22 20:07 Dose: Not Given Documented By: CONNOR Guaifenesin (Guaifenesin 600 Mg Tabcr) 1,200 mg PO NOW STA Stop: 11/23/22 18:40 Last Admin: 11/23/22 19:15 Dose: 1,200 mg Documented By: ARIS Bumetanide 4 mg/ Syringe 16 mls @ 4 mls/min IV ONE ONE Stop: 11/23/22 18:42 Last Admin: 11/23/22 19:16 Dose: 4 mls/min Documented By: ARIS Methylprednisolone (Methylprednisolone 125 Mg/2 Ml Vial) 125 mg IV NOW STA Stop: 11/23/22 18:40 Last Admin: 11/23/22 19:15 Dose: 125 mg Documented By: ARIS Potassium Chloride (Potassium Chloride Crtab 20 Meq Tabcr) 40 meq PO NOW STA Stop: 11/23/22 18:40 Last Admin: 11/23/22 19:15 Dose: 40 meq Documented By: ARIS Potassium Chloride (Potassium Chloride Crtab 20 Meq Tabcr) 40 meq PO NOW STA Stop: 11/23/22 23:31 Last Admin: 11/23/22 23:50 Dose: 40 meq Documented By: ARIS Imaging Data Radiologist's Impression: Chest X-Ray 11/23/22 17:36 XR chest 1V portable CLINICAL HISTORY: SOB TECHNIQUE: Single frontal radiograph of the chest was obtained. Comparison: Comparison is made to chest radiograph 11/09/2022 FINDINGS: No lines and tubes are seen. Cardiomegaly is noted. The aortic arch is calcified. Reticular interstitial opacities are seen. Bilateral lower lung airspace opacities are seen. Mild bilateral pleural effusions are seen. IMPRESSION: 1. Bilateral lower lung predominant airspace opacities which may represent atelectasis, pneumonia, and/or aspiration. Cardiomegaly. 2. Mild bilateral pleural effusions are seen. ACT 112: Negative or not required by law. Electronically signed by: Thomas Marin M.D. 11/23/2022 5:59 PM Discharge Plan Visit Data Chief Complaint: Shortness of Breath/Dyspnea ED Provider: Kurt Lugo Discharge Problem: Acute on chronic respiratory failure with hypoxia and hypercapnia, COPD with emphysema, Chronic diastolic (congestive) heart failure Discharge Instructions Interventions: ED Discharge Assessment Last Done: 11/24/22 02:04
--- NOTE | 2022-11-23 23:24 | History & Physical Report ---
Date of Service November 23, 2022 Assessment & Plan (1) Chronic diastolic (congestive) heart failure: Plan: Richard is a 77 year old male w/ PmHx chronic diastolic heart failure, COPD, aortic stenosis s/p TAVR 2019, chronic respiratory failure on home 5-6L home O2, carotid artery stenosis s/p CEA, tobacco use, history of GI bleed secondary to AVM, HTN admitted for CHF exacerbation. Shortness of Breath/Chronic diastolic heart failure: -BNP 216, down from 448 on 11/20 -WBC 7.37, procal <0.05, creatinine 1.31. -CXR w/ b/l lower lung predominant airspace opacities, mild b/l pleural effusions. -Seated weight 95.9kg, baseline weight of ~82kg. -Vitals stable, patient at baseline O2, 2+ pitting edema. -Most likely persistent dyspnea in face of fluid overload, less likely infectious cause or COPD exacerbation. -Given 4mg IV Bumex in ED. Continue IV Bumex 4mg BID, home spironolactone. Hold home metolazone. -Continued acetazolamide for possible contraction alkalosis while on diuretic therapy. -Trend daily standing weights, strict I&O's. COPD, Chronic respiratory failure w/ hypoxia and hypercapnia: -Patient on baseline home O2 of 5-6L at rest. -Bicarb 44 on BMP, may be from COPD coupled with diuretic use. -Continue home medications of albuterol, Anoro Ellipta, Fluticasone-vilanterol -Duonebs PRN ordered if worsening shortness of breath or wheezing develops. -Less likely cause of shortness of breath. Continue to monitor vitals, serial lung exam and BMP. Hypokalemia: -Potassium of 3.0 on admission. -Given 40meq x2 in ED oral KCl. -Most likely from heavy diuretic use. -Continue spironolactone for potassium sparing. -40meq KCl ordered qAM, extra doses as needed. -Continue to monitor with AM BMP. Elevated Troponin: -Troponin of 26.2 on admission. -Most likely secondary to demand ischemia from fluid overload. -Trend till peak. Hypertension: -Patient on Bumex 4mg oral BID at home, continue 4mg IV Bumex BID while fluid overload. -Continue spironolactone, hold metolazone. -Continue Acetazolamide to prevent possible contraction alkalosis while diuresing. -Continue to monitor. Anemia: -Hgb 9.8 on admission. Baseline hgb 8-9. -Continue to monitor w/ AM CBC. Anxiety/depression: -Continue home buspirone and escitalopram. Hyperlipidemia: -Continue home statin. ABDIEL: -Continue CPAP HS, home melatonin 3mg HS. F/E/N/GI: Heart Healthy, Low sodium diet. VTE Prophylaxis: Lovenox 40mg daily. Code status: Discussed with patient, he states he would like to be Full Code and if he were to need CPR and intubation with the outcome uncertain to call his Noemi. Dispo: Med/surg Telemetry. Patient with multiple admissions over the past 6 months and on 3 different loop diuretics for heart failure, patient talked with palliative at last admission. May want to revisit goals of care given frequent admissions. (2) Chronic respiratory failure with hypoxia and hypercapnia: (3) COPD with emphysema: (4) Elevated troponin I level: (5) Hypertension: (6) Anemia: (7) Anxiety and depression: (8) Bilateral pleural effusion: History of Present Illness Chief Complaint: Shortness of breath Primary Care Provider: Eric Westbrook DO Richard is a 77 year old male w/ PmHx of chronic diastolic heart failure, COPD, aortic stenosis s/p TAVR 2019, chronic respiratory failure on home 5-6L home O2, carotid artery stenosis s/p CEA, tobacco use, history of GI bleed secondary to AVM, HTN who presented to the emergency department with persistent shortness of breath. Patient states earlier today in the morning after he woke up he had some mild shortness of breath that he usually has when he gets up in the morning. He states that usually in the mornings after he walks to the toilet to take a break his shortness of breath will get better and dissipate. However this morning he had persistence of his shortness of breath even past this and into the day. The poor improvement caused him to worry and come into the ED to get checked out. He states that he has gained some weight recently since last discharge. He followed up with Smita Herrera 3 days ago and was hypervolemic on exam, started on 3 days of acetazolamide in addition to his bumex, spironolactone, metolazone. He says his base weight is around 183lbs however his weights have been increased recently. He was discharged 11/15 and states when he went home for Petey he had Petey dinner with the usual [place] food including butter turkey that was fried. He denies any chest pain, fevers, chills, diarrhea, nausea, vomiting. He states he has been coughing around his usual and has been occasionally coughing up clear and at times mildly yellow sputum. In the ED he was given duoneb treatment x1, bumex 4mg IV x1, Mucinex 1200mg, methylprednisolone 125mg x1, KCl 40meq x2. CXR showed evidence of b/l lower lung airspace opacities, mild b/l pleural effusions. WBC 7.37, K 3.0, CO2 44, BUN/Creat 49/1.31, Trop 26.2, BNP 216, procal <0.05, covid/rsv/flu negative. Allergies Allergy/AdvReac Type Severity Reaction Status Date / Time No Known Allergies Allergy Verified 11/23/22 22:58 Home Medications Medication Instructions Recorded Confirmed Type multivitamin (Multiple Vitamins 1 tab PO DAILY 05/21/20 11/23/22 History tablet) docusate sodium 100 mg capsule 100 mg PO BID 06/10/20 11/23/22 History melatonin 3 mg capsule 6 mg PO HS 05/26/22 11/23/22 History buspirone 10 mg tablet 10 mg PO TID PRN Anxiety 07/22/22 11/23/22 History Oxygen Home #1 ea 08/07/22 11/20/22 Rx atorvastatin 80 mg tablet 80 mg PO QPM #90 tabs 09/29/22 11/23/22 Rx escitalopram oxalate 20 mg tablet 20 mg PO DAILY 14 days #14 tabs 09/29/22 11/23/22 Rx pantoprazole 40 mg tablet,delayed 40 mg PO DAILY #90 tabs 09/29/22 11/23/22 Rx release albuterol sulfate 90 mcg/actuation 2 puff inhalation Q6H PRN 10/01/22 11/23/22 Rx aerosol inhaler Shortness Of Breath Or Wheezing #18 grams bumetanide 2 mg tablet 4 mg PO .DAILY@0600,1200 10/10/22 11/23/22 History metolazone 5 mg tablet 5 mg PO QAM #60 tabs 11/15/22 11/23/22 Rx sodium chloride 0.65 % nasal spray 1 spray NA TID #44 mL 11/15/22 11/23/22 Rx aerosol (Saline Mist) spironolactone 25 mg tablet 25 mg PO DAILY 90 days #180 tabs 11/15/22 11/23/22 Rx umeclidinium 62.5 mcg-vilanterol 1 ea inhalation DAILY #60 ea 11/15/22 11/23/22 Rx 25 mcg/actuation powdr for inhalation (Anoro Ellipta) fluticasone fur. 100 mcg-umeclid 1 inh inhalation DAILY 11/17/22 11/23/22 History 62.5 mcg-vilant 25 mcg inhalat.powder (Trelegy Ellipta) magnesium oxide 400 mg (241.3 mg 400 mg PO DAILY #7 tabs 11/17/22 11/23/22 Rx magnesium) tablet acetazolamide 500 mg 500 mg PO DAILY #30 caps 11/20/22 11/23/22 Rx capsule,extended release potassium chloride 20 mEq 40 meq PO BID #360 tabs 11/20/22 11/23/22 Rx tablet,extended release Past Med/Surg History Medical History (Updated 11/25/22 @ 00:05 by Miguel Brown) Acute blood loss anemia Acute exacerbation of chronic obstructive pulmonary disease Acute on chronic diastolic heart failure with preserved ejection fraction Allergic rhinitis with postnasal drip Anxiety Aortic stenosis s/p TAVR 2019 ([facility]) CAD (coronary artery disease) Carotid stenosis, bilateral Chronic cor pulmonale Chronic diastolic (congestive) heart failure Chronic heart failure with preserved ejection fraction Chronic respiratory failure with hypoxia Chronic respiratory failure with hypoxia and hypercapnia on home O2 5L rest; 8L with activity COPD (chronic obstructive pulmonary disease) Elevated troponin I level Generalized weakness GERD (gastroesophageal reflux disease) History of GI bleed Hypertension Iron deficiency anemia Pulmonary edema Pulmonary hypertension Tobacco use disorder Uremia Surgical History History of left-sided carotid endarterectomy 2013 S/P appendectomy Family History Father Hypertension Mother Hypotension Breast cancer Other No family history of adverse response to anesthesia No family history of bleeding disorder Social History Smoking Status: Former smoker Tobacco Type: Cigarettes packs per day: 1; Second Hand Exposure: No; Hx Alcohol Use: Yes Alcohol type: hard liquor Alcohol Intake Frequency: Monthly or Less Alcohol Intake Frequency Comment: 1 bottle of Manny Dupree a month Hx Substance Use: No Preferred Language: Kyrgyz Communication Ability: Effective Visual Impairment: No Limitations Lab Tester Required: No Beliefs That Will Affect Care: None marital status: Current Living Situation: Spouse and Family Current Living Situation Comment: with and son current occupational status: retired Other Information That Helps Us Care for You: No Feels Safe at Home: Yes Safety Concerns: Feels Safe At This Time Assistive Devices: BiPap and Oxygen - Continuous Review of Systems Review of Systems: As per HPI. Physical Exam Constitutional: WD/WN, vitals as above Eyes: PERRL, conjunctivae normal, anicteric sclerae Respiratory: Bilateral crackles in the lower lung anderson. Clear to auscultation elsewhere, no wheezing. Cardiovascular: RRR, S1 and S2, no murmurs. 2+ pitting edema bilaterally up to knees. Gastrointestinal (Abdomen): normal bowel sounds, soft, nontender, no hepatosplenomegaly Skin: Chronic venous stasis changes to bilateral legs below the mid jeffers. Psychiatric: A+Ox3, euthymic affect Results & Data Results & Data ([facility]) Vital Signs (Past 12 Hours) Vital Signs Temp Pulse Pulse Resp BP BP Pulse Ox 11/23/22 23:00 92 H 20 131/75 94 11/23/22 21:27 88 18 143/60 H 98 11/23/22 20:07 99 11/23/22 19:28 90 24 168/65 H 100 11/23/22 19:28 99 11/23/22 19:28 11/23/22 19:27 11/23/22 17:36 92 11/23/22 17:23 20 99 11/23/22 17:10 37.1 C 95 H 31 H 144/71 H 94 O2 Del Method O2 Flow Rate 11/23/22 23:00 Room Air 11/23/22 21:27 Nasal Cannula 4 11/23/22 20:07 Nasal Cannula 5 11/23/22 19:28 Room Air 11/23/22 19:28 Nasal Cannula 11/23/22 19:28 Nasal Cannula 4 11/23/22 19:27 Nasal Cannula 4 11/23/22 17:36 Nasal Cannula 5 11/23/22 17:23 Nasal Cannula 4 11/23/22 17:10 Nasal Cannula 5 Supervising Physician Co-Signing Physician Notes Attending addendum: I have physically seen this patient, have supervised the medical residents activities, and agree with the H&P unless as otherwise noted. Assessment and Plan: Acute on chronic respiratory failure with hypoxia and hypercapnia/COPD exacerbation/HFpEF exacerbation- The patient will be admitted to telemetry for serial cardiac enzymes, serial EKG's, cardiac rhythm monitoring and a 2-D echocardiogram with Dopplers. HFpEF exacerbation/elevated troponin/hypertension- Status post Bumex 4 mg IV and potassium chloride 40 mEq p[address]o. from the ED Place on Bumex 4 mg IV twice daily Continue spironolactone 25 mg p.o. daily Hold metolazone Continue recently started acetazolamide 500 mg daily Troponin 26.2 on admission, potassium 3.0 on admission Replacing potassium orally as noted Follow serial renal profile and magnesium levels COPD exacerbation- Received Solu-Medrol 125 mg IV, DuoNeb treatment and guaifenesin 12 mg p.o. from the ED Continue Anoro Ellipta, fluticasone-vilanterol and albuterol Duonebs every 4 hours while awake and every 2 hours when necessary. Methylprednisolone 40 mg IV every 8 hours Remaining orders and notations as noted Resident Activity Tracking Resident Involvement: Resident Care Provided Care Provided: Adult Hospital Medicine (1) Anemia Anemia type: unspecified type Qualified Code(s): D64.9 - Anemia, unspecified
[2022-11-24] MEDS ORDERED: ALBUTEROL HFA 8 GM INHALER INH PRN (02:36)
[2022-11-24] MEDS ORDERED: ACETAMINOPHEN 325 MG TAB PO PRN (02:36)
[2022-11-24 07:00] LABS: Hematocrit (blood only) 29.1 % (40.1-51.0); Hemoglobin 8.7 g/dl (14.0-18.0); Mean Corpuscular Hemoglobin 24.4 pg (25.0-34.0); Mean Corpuscular Hgb Conc 29.9 g/dL (32.0-36.0); Mean Corpuscular Volume 81.7 fL (80.0-100.0); Mean Platelet Volume 11.2 fL (9.4-12.4); Platelet Count 303 K/uL (130-400); Red Blood Count 3.56 M/uL (4.63-6.08); White Blood Count 7.78 K/ul (4.8-10.8)
[2022-11-24 07:26] LABS: Basophils # (auto) 0.01 K/uL (0-0.2); Basophils % (auto) 0.1 %; Immature Granulocytes # (auto) 0.04 K/uL (0.00-0.02); Immature Granulocytes % (auto) 0.5 %; Lymphocytes # (auto) 0.12 K/uL (1.2-3.4); Lymphocytes % (auto) 1.5 %; Monocytes # (auto) 0.13 K/uL (0.24-0.82); Monocytes % (auto) 1.7 %; Neutrophils # (auto) 7.48 K/uL (1.4-6.5); Neutrophils % (auto) 96.2 %; RBC Morphology Unremarkable
[2022-11-24 07:29] LABS: BUN Creatinine Ratio 39.3 (10-20); Calcium 9.5 mg/dl (8.5-10.1); Creatinine Clr Calc Pharmacy 47.1 ml/min; Est GFR (African American) 52.7 ml/min; Est GFR (Non-African American) 45.5 ml/min; Potassium 3.7 mmol/L (3.5-5.1)
[2022-11-24] MEDS: FLUTICASONE FUROATE 100MCG 14 PUFFS/INHALER INH SCH (08:45)
[2022-11-24] MEDS: UMECLIDINIUM/VILANTEROL 62.5/25MCG 7 PUFFS/INHALER INH SCH (08:45)
[2022-11-24] MEDS: ESCITALOPRAM OXALATE 20 MG TAB PO SCH (08:46)
[2022-11-24] MEDS: POTASSIUM CHLORIDE CRTAB 20 MEQ TABCR PO SCH (08:46)
[2022-11-24] MEDS: SPIRONOLACTONE 25 MG TAB PO SCH (08:46)
[2022-11-24] MEDS: ENOXAPARIN INJ 40 MG/0.4 ML SYR SQ SCH (08:47)
[2022-11-24] MEDS: INSULIN ASPART PER UNIT SC SCH ×4 (08:51→20:35)
[2022-11-24] MEDS: BUMETANIDE 4 MG in SYRINGE 0 ML IV SCH ×2 (08:55→17:29)
[2022-11-24] MEDS ORDERED: acetaZOLAMIDE 500 MG CAPCR PO SCH (09:00)
[2022-11-24] MEDS: busPIRone 5 MG TAB PO PRN ×2 (09:25→17:47)
[2022-11-24] MEDS: ALBUT/IPRATROP 3MG/0.5MG NEB 3 ML VIAL NEB PRN ×2 (10:51→18:42)
[2022-11-24 11:11] LABS: Estimated Average Glucose 166 mg/dl; Hemoglobin A1C 7.4 % (4.5-5.6)
--- NOTE | 2022-11-24 12:38 | Electrocardiogram Report ---
Test Reason : Blood Pressure : / mmHG Vent. Rate : 096 BPM Atrial Rate : 096 BPM P-R Int : 262 ms QRS Dur : 126 ms QT Int : 388 ms P-R-T Axes : 100 -55 073 degrees QTc Int : 490 ms Poor data quality, interpretation may be adversely affected Sinus rhythm with 1st degree A-V block with Premature atrial complexes Left axis deviation Non-specific intra-ventricular conduction block Cannot rule out Anterior infarct , age undetermined Abnormal ECG When compared with ECG of 07-NOV-2022 14:15, Premature atrial complexes are now Present VT interval has increased Minimal criteria for Anterior infarct are now Present ST now depressed in Inferior leads Confirmed by Mj Zimmerman ([id number]) on 11/24/2022 12:38:06 PM Referred By: REFERRED SELF Confirmed By:Mj Zimmerman
[2022-11-24] MEDS ORDERED: GLUCOSE 40% GEL 15 GM TUBE PO PRN (14:45)
[2022-11-24] MEDS ORDERED: GLUCOSE 10 TAB/TUBE PO PRN (14:45)
[2022-11-24] MEDS ORDERED: GLUCAGON FOR INJ 1 MG VIAL IM PRN (14:45)
[2022-11-24] MEDS ORDERED: CARBOHYDRATES FOR HYPOGLYCEMIA PO PRN (14:45)
[2022-11-24] MEDS ORDERED: DEXTROSE 50% 50 ML SYRINGE IV PRN (14:45)
[2022-11-24 17:06] LABS: Base Excess VBG 12.1 mEq/L; HCO3 VBG 42 mmol/L; Oxygen Saturation VBG < 60.0 %; PCO2 VBG 79 mmHg (38-50); PO2 VBG 30 mmHg; pH VBG 7.33 (7.36-7.41)
--- NOTE | 2022-11-24 20:30 | Hospitalist Progress Note ---
Date of Service November 24, 2022 Assessment & Plan (1) Acute on chronic diastolic heart failure with preserved ejection fraction: Plan: diuretic-refractory diastolic CHF. has been taking triple diuretics - occasionally 4 - to maintain euvolemia without success (bumex, metazolone, aldactone, +/- diamox). follows with Smita GILMAN in CHF clinic. noncompliance with BiPAP at HS for ABDIEL, diet, etc are culprits among others. add back metazolone 5mg and give 30 min prior to AM bumex. cont aldactone. hold diamox. he might need bumex infusion or bumex TID. discussed palliative care consultation with pt & his by phone - both agreeable. consult placed to Dr Fu. (2) Chronic respiratory failure with hypoxia and hypercapnia: Plan: VBG obtained this afternoon - mild respiratory acidosis with hypercarbia noted. 2nd to noncompliance with BIPAP. discussed this issue with his - without use of BIPAP his hypercarbia will continue. (3) Iron deficiency anemia: Plan: 2nd to occult GI bleeding. AVMs?? has had endoscopic eval in the past without source discovered by way of EGD or colonoscopy. e (4) Dyslipidemia: (5) Anemia: (6) Atrial fibrillation: Plan: is in NSR at this time is not on anticoagulation (7) Anxiety and depression: Plan: cont lexapro (8) COPD with emphysema: Plan: advanced, with large O2 requirement at baseline (5 L at rest) cont inhalers, O2, etc. (9) Hypertension: (10) Aortic stenosis: Plan: s/p TAVR (11) Pulmonary hypertension: (12) Diabetes mellitus type 2, uncontrolled: Plan: a1c 7.4% add novolog will also likely need lantus adjust as needed (13) DVT prophylaxis: Plan: lovenox Plan discussed current situation with Smita GILMAN from CHF clinic as well as his by phone extensively consult palliative care very poor prognosis Admission and Anticipated Discharge Date Admission Date: November 23, 2022 Subjective patient sleeping upon my arrival woke up when I called his name he stated he had been sleeping much of the afternoon he reports that his breathing is similar to yesterday - no significant change dyspnea with any exertion we talked about palliative care consultation and he was ok with such denies any chest pain denies any abd pain Review of Systems Review of Systems: gen - no fevers; +fatigue pulm - mild cough GI - no nausea/emesis Physical Exam Physical Exam: gen - sleepy, no distress neck - no obvious JVD mouth - MMM heart - RRR, s1 s2 lungs - decreased BS b/l, poor airation, crackles R base, no wheezing abd - soft NT ND BS+ skin - venous stasis changes b/l shins ext - 2-3+ edema b/l, pulses 2+ b/l Results & Data Results & Data ([facility]) Vital Signs (Past 12 Hours) Vital Signs Temp Pulse Pulse Resp BP BP Pulse Ox 11/24/22 19:30 11/24/22 18:40 89 20 98 11/24/22 18:36 36.8 C 85 20 160/65 H 100 11/24/22 16:25 36.9 C 86 20 145/64 H 99 11/24/22 15:05 89 11/24/22 12:00 37.1 C 60 18 130/69 94 11/24/22 11:47 11/24/22 10:51 88 20 98 O2 Del Method O2 Flow Rate 11/24/22 19:30 Nasal Cannula 5 11/24/22 18:40 Nasal Cannula 4 11/24/22 18:36 Nasal Cannula 5 11/24/22 16:25 Nasal Cannula 5 11/24/22 15:05 11/24/22 12:00 Nasal Cannula 5 11/24/22 11:47 Nasal Cannula 5 11/24/22 10:51 Nasal Cannula 4 Laboratory Results Laboratory Results - last 24 hr 11/24/22 11/24/22 11/24/22 00:04 06:07 06:07 WBC 7.78 RBC 3.56 L Hgb 8.7 L Hct 29.1 L MCV 81.7 MCH 24.4 L MCHC 29.9 L RDW Std Deviation 54.0 H RDW Coeff of Vesta 18.0 H Plt Count 303 MPV 11.2 Immature Gran % (Auto) 0.5 Neut % (Auto) 96.2 Lymph % (Auto) 1.5 Cascade % (Auto) 1.7 Eos % (Auto) 0.0 Baso % (Auto) 0.1 Neut # (Auto) 7.48 H Lymph # (Auto) 0.12 L [place]ascade # (Auto) 0.13 L Eos # (Auto) 0.00 Baso # (Auto) 0.01 Immature Gran # (Auto) 0.04 H RBC Morphology Unremarkable VBG pH VBG pCO2 VBG pO2 VBG HCO3 VBG O2 Saturation VBG Base Excess Sodium 134 L Potassium 3.7 D Chloride 86 L Carbon Dioxide 41 H* Anion Gap 7 BUN 57 H Creatinine 1.45 H Est Cr Clr Drug Dosing 47.1 Est GFR ( Amer) 52.7 Est GFR (Non-Af Amer) 45.5 BUN/Creatinine Ratio 39.3 H Glucose 569 H* POC Glucose Estimat Average Glucose Hemoglobin A1c Calcium 9.5 Ammonia Troponin I High Sens 33.5 H 11/24/22 11/24/22 11/24/22 07:57 08:00 11:41 WBC RBC Hgb Hct MCV MCH MCHC RDW Std Deviation RDW Coeff of [place] Plt Count MPV Immature Gran % (Auto) Neut % (Auto) Lymph % (Auto) Cascade % (Auto) Eos % (Auto) Baso % (Auto) Neut # (Auto) Lymph # (Auto) Cascade # (Auto) Eos # (Auto) Baso # (Auto) Immature Gran # (Auto) RBC Morphology VBG pH VBG pCO2 VBG pO2 VBG HCO3 VBG O2 Saturation VBG Base Excess Sodium Potassium Chloride Carbon Dioxide Anion Gap BUN Creatinine Est Cr Clr Drug Dosing Est GFR ( Amer) Est GFR (Non-Af Amer) BUN/Creatinine Ratio Glucose POC Glucose 526 H* 128 H Estimat Average Glucose 166 Hemoglobin A1c 7.4 H Calcium Ammonia Troponin I High Sens 11/24/22 11/24/22 11/24/22 16:47 16:47 16:52 WBC RBC Hgb Hct MCV MCH MCHC RDW Std Deviation RDW Coeff of [place] Plt Count MPV Immature Gran % (Auto) Neut % (Auto) Lymph % (Auto) Cascade % (Auto) Eos % (Auto) Baso % (Auto) Neut # (Auto) Lymph # (Auto) Cascade # (Auto) Eos # (Auto) Baso # (Auto) Immature Gran # (Auto) RBC Morphology VBG pH 7.33 L VBG pCO2 79 H VBG pO2 30 VBG HCO3 42 VBG O2 Saturation < 60.0 VBG Base Excess 12.1 Sodium Potassium Chloride Carbon Dioxide Anion Gap BUN Creatinine Est Cr Clr Drug Dosing Est GFR ( Amer) Est GFR (Non-Af Amer) BUN/Creatinine Ratio Glucose POC Glucose 285 H Estimat Average Glucose Hemoglobin A1c Calcium Ammonia 44.0 Troponin I High Sens 11/24/22 20:05 WBC RBC Hgb Hct MCV MCH MCHC RDW Std Deviation RDW Coeff of [place] Plt Count MPV Immature Gran % (Auto) Neut % (Auto) Lymph % (Auto) Cascade % (Auto) Eos % (Auto) Baso % (Auto) Neut # (Auto) Lymph # (Auto) Cascade # (Auto) Eos # (Auto) Baso # (Auto) Immature Gran # (Auto) RBC Morphology VBG pH VBG pCO2 VBG pO2 VBG HCO3 VBG O2 Saturation VBG Base Excess Sodium Potassium Chloride Carbon Dioxide Anion Gap BUN Creatinine Est Cr Clr Drug Dosing Est GFR ( Amer) Est GFR (Non-Af Amer) BUN/Creatinine Ratio Glucose POC Glucose 219 H Estimat Average Glucose Hemoglobin A1c Calcium Ammonia Troponin I High Sens PG Care Time/CCT Total # of Minutes Spent Total Time Spent with Patient: Total time spent is greater than 50% in coordination of care (as documented) at patient's floor/unit and/or counseling patient: Coding Level of Care Code 14490 SUB INP/OBS CARE 2/35MIN Diagnoses Acute on chronic diastolic heart failure with preserved ejection fraction I50.33 Chronic respiratory failure with hypoxia and hypercapnia J96.11; J96.12 Iron deficiency anemia D50.9 Dyslipidemia E78.5 Anemia D64.9 Anemia type: unspecified type Atrial fibrillation I48.91 Atrial fibrillation type: unspecified Anxiety and depression F41.9; F32.A COPD with emphysema J43.9 Hypertension I10 Aortic stenosis I35.0 Cardiac valve disease etiology: etiology unspecified Pulmonary hypertension I27.20 Diabetes mellitus type 2, uncontrolled DVT prophylaxis Z29.9 (1) Anemia Anemia type: unspecified type Qualified Code(s): D64.9 - Anemia, unspecified (2) Aortic stenosis Cardiac valve disease etiology: etiology unspecified Qualified Code(s): I35.0 - Nonrheumatic aortic (valve) stenosis (3) Atrial fibrillation Atrial fibrillation type: unspecified Qualified Code(s): I48.91 - Unspecified atrial fibrillation
[2022-11-24] MEDS: ATORVASTATIN 40 MG TAB PO SCH (20:35)
[2022-11-25] MEDS: busPIRone 5 MG TAB PO PRN (03:04)
--- NOTE | 2022-11-25 06:05 | Billing Data ---
Date of Service November 25, 2022 Coding Level of Care Code 25596 INT INP/OBS CARE
[2022-11-25] MEDS: ALBUT/IPRATROP 3MG/0.5MG NEB 3 ML VIAL NEB PRN ×3 (07:16→21:17)
[2022-11-25] MEDS: INSULIN ASPART PER UNIT SC SCH ×4 (08:38→20:49)
[2022-11-25] MEDS: LANTUS PER UNIT CHARGE SQ SCH (08:38)
[2022-11-25] MEDS: POTASSIUM CHLORIDE CRTAB 20 MEQ TABCR PO SCH ×3 (08:42→20:57)
[2022-11-25] MEDS: BUMETANIDE 4 MG in SYRINGE 0 ML IV SCH ×2 (08:42→19:20)
[2022-11-25] MEDS: metOLazone 5 MG TABLET PO SCH (08:42)
[2022-11-25] MEDS: ESCITALOPRAM OXALATE 20 MG TAB PO SCH (08:42)
[2022-11-25] MEDS: SPIRONOLACTONE 25 MG TAB PO SCH (08:42)
[2022-11-25] MEDS: ENOXAPARIN INJ 40 MG/0.4 ML SYR SQ SCH (08:43)
[2022-11-25] MEDS: UMECLIDINIUM/VILANTEROL 62.5/25MCG 7 PUFFS/INHALER INH SCH (08:43)
[2022-11-25] MEDS: FLUTICASONE FUROATE 100MCG 14 PUFFS/INHALER INH SCH (08:43)
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
[2022-11-25 09:38] LABS: BUN Creatinine Ratio 44.5 (10-20); Calcium 9.9 mg/dl (8.5-10.1); Creatinine Clr Calc Pharmacy 53.6 ml/min; Est GFR (African American) 61.3 ml/min; Est GFR (Non-African American) 52.9 ml/min; Potassium 3.2 mmol/L (3.5-5.1)
--- NOTE | 2022-11-25 12:48 | Hospitalist Progress Note ---
Date of Service November 25, 2022 Assessment & Plan (1) Acute on chronic diastolic heart failure with preserved ejection fraction: Plan: diuretic-refractory diastolic CHF. has been taking triple diuretics - occasionally 4 - to maintain euvolemia without success (bumex, metazolone, aldactone, +/- diamox). follows with Smita GILMAN in CHF clinic. noncompliance with BiPAP at HS for ABDIEL, diet, etc are culprits among others. added back metazolone 5mg this am and gave 30 min prior to AM bumex. cont aldactone. hold diamox. I also increased this bumex today -- plan 4mg AM, 2mg afternoon, 4mg early evening repeat labs in am appreciate palliative care consult to refine goals of care with pt & his . repeat cxr in am. (2) Chronic respiratory failure with hypoxia and hypercapnia: Plan: VBG obtained yesterday afternoon - mild respiratory acidosis with hypercarbia noted. 2nd to noncompliance with BIPAP. discussed this issue with his - without use of BIPAP his hypercarbia will continue. he has previously refused to use BIPAP at any time during his hospital stays. (3) Iron deficiency anemia: Plan: 2nd to occult GI bleeding. AVMs?? has had endoscopic eval in the past without source discovered by way of EGD or colonoscopy. recheck cbc am (4) Dyslipidemia: (5) Anemia: Plan: 2nd Fe def & chronic GI blood losses repaet cbc am (6) Atrial fibrillation: Plan: is in NSR at this time is not on anticoagulation (7) Anxiety and depression: Plan: cont lexapro (8) COPD with emphysema: Plan: advanced, with large O2 requirement at baseline (5 L at rest) cont inhalers, O2, etc. (9) Hypertension: (10) Aortic stenosis: Plan: s/p TAVR (11) Pulmonary hypertension: Plan: 2nd to COPD (12) Diabetes mellitus type 2, uncontrolled: Plan: a1c 7.4% add lantus today cont novolog (13) DVT prophylaxis: Plan: lovenox Plan appreciate palliative care consultation Admission and Anticipated Discharge Date Admission Date: November 23, 2022 Subjective just finished eating lunch his appetite is good he continues with dyspnea with minimal activity he was "restless" overnight - attributes this to his breathing, anxiety, etc he is simply uncomfortable tele overnight wnl Review of Systems Review of Systems: gen - tired, fatigued cv - no chest pain; +orthopnea with edema pulm - cough/congestion/dyspnea GI - no abd pain Physical Exam Physical Exam: gen - sitting at side of bed, NAD; looks tired neck - no obvious JVD mouth - MMM heart - RRR, s1 s2 lungs - decreased BS b/l, poor airation, crackles R base once again, no wheezing - exam similar to yesterday abd - soft NT ND BS+ skin - venous stasis changes b/l shins ext - 2+ edema b/l, pulses 2+ b/l Results & Data Results & Data ([facility]) Vital Signs (Past 12 Hours) Vital Signs Temp Pulse Pulse Resp BP Pulse Ox O2 Del Method 11/25/22 11:53 36.7 C 79 20 129/53 L 99 Room Air 11/25/22 11:16 98 H 20 88 L Nasal Cannula 11/25/22 11:01 Nasal Cannula 11/25/22 08:00 103 H 11/25/22 07:56 36.9 C 88 20 150/62 H 98 Nasal Cannula 11/25/22 07:16 97 H 20 89 L Nasal Cannula 11/25/22 02:44 36.4 C 91 H 18 143/68 H 91 Nasal Cannula O2 Flow Rate 11/25/22 11:53 11/25/22 11:16 5 11/25/22 11:01 5 11/25/22 08:00 11/25/22 07:56 5 11/25/22 07:16 5 11/25/22 02:44 5 Laboratory Results Laboratory Results - last 24 hr 11/24/22 11/24/22 11/24/22 16:47 16:47 16:52 VBG pH 7.33 L VBG pCO2 79 H VBG pO2 30 VBG HCO3 42 VBG O2 Saturation < 60.0 VBG Base Excess 12.1 Sodium Potassium Chloride Carbon Dioxide Anion Gap BUN Creatinine Est Cr Clr Drug Dosing Est GFR ( Amer) Est GFR (Non-Af Amer) BUN/Creatinine Ratio Glucose POC Glucose 285 H Calcium Ammonia 44.0 11/24/22 11/25/22 11/25/22 20:05 07:32 08:12 VBG pH VBG pCO2 VBG pO2 VBG HCO3 VBG O2 Saturation VBG Base Excess Sodium 138 Potassium 3.2 L Chloride 89 L Carbon Dioxide 43 H* Anion Gap 6 BUN 57 H Creatinine 1.28 Est Cr Clr Drug Dosing 53.6 Est GFR ( Amer) 61.3 Est GFR (Non-Af Amer) 52.9 BUN/Creatinine Ratio 44.5 H Glucose 177 H POC Glucose 219 H 183 H Calcium 9.9 Ammonia 11/25/22 11:57 VBG pH VBG pCO2 VBG pO2 VBG HCO3 VBG O2 Saturation VBG Base Excess Sodium Potassium Chloride Carbon Dioxide Anion Gap BUN Creatinine Est Cr Clr Drug Dosing Est GFR ( Amer) Est GFR (Non-Af Amer) BUN/Creatinine Ratio Glucose POC Glucose 161 H Calcium Ammonia PG Care Time/CCT Total # of Minutes Spent Total Time Spent with Patient: Total time spent is greater than 50% in coordination of care (as documented) at patient's floor/unit and/or counseling patient: Coding Level of Care Code 20555 SUB INP/OBS CARE 2/35MIN Diagnoses Acute on chronic diastolic heart failure with preserved ejection fraction I50.33 Chronic respiratory failure with hypoxia and hypercapnia J96.11; J96.12 Iron deficiency anemia D50.9 Dyslipidemia E78.5 Anemia D64.9 Anemia type: unspecified type Atrial fibrillation I48.91 Atrial fibrillation type: unspecified Anxiety and depression F41.9; F32.A COPD with emphysema J43.9 Hypertension I10 Aortic stenosis I35.0 Cardiac valve disease etiology: etiology unspecified Pulmonary hypertension I27.20 Diabetes mellitus type 2, uncontrolled DVT prophylaxis Z29.9 (1) Anemia Anemia type: unspecified type Qualified Code(s): D64.9 - Anemia, unspecified (2) Aortic stenosis Cardiac valve disease etiology: etiology unspecified Qualified Code(s): I35.0 - Nonrheumatic aortic (valve) stenosis (3) Atrial fibrillation Atrial fibrillation type: unspecified Qualified Code(s): I48.91 - Unspecified atrial fibrillation
[2022-11-25] MEDS: LORazepam 0.5 MG TAB PO PRN ×2 (13:12→20:43)
[2022-11-25] MEDS: busPIRone 5 MG TAB PO SCH ×2 (13:13→20:45)
--- NOTE | 2022-11-25 14:14 | Communication Note ---
Date of Service: November 25, 2022 Multiple attempts to see pt who is repeatedly in the bathroom and unavailable. I will re attempt tomorrow. Caroline Preston DNP Clinical Director, Palliative Medicine
[2022-11-25] MEDS: BUMETANIDE 2 MG in SYRINGE 0 ML IV SCH (15:36)
[2022-11-25] MEDS: ATORVASTATIN 40 MG TAB PO SCH (20:44)
[2022-11-26 07:04] LABS: Hematocrit (blood only) 30.8 % (40.1-51.0); Hemoglobin 9.6 g/dl (14.0-18.0); Mean Corpuscular Hemoglobin 24.8 pg (25.0-34.0); Mean Corpuscular Hgb Conc 31.2 g/dL (32.0-36.0); Mean Corpuscular Volume 79.6 fL (80.0-100.0); Mean Platelet Volume 10.7 fL (9.4-12.4); Platelet Count 335 K/uL (130-400); RDW Coefficient of Variation 18.4 % (11.5-14.5); RDW Standard Deviation 53.4 fL (36.4-46.3); Red Blood Count 3.87 M/uL (4.63-6.08); White Blood Count 6.86 K/ul (4.8-10.8)
[2022-11-26 07:58] LABS: BUN Creatinine Ratio 46.9 (10-20); Calcium 10.2 mg/dl (8.5-10.1); Est GFR (African American) 60.1 ml/min; Est GFR (Non-African American) 51.9 ml/min; Magnesium 2.5 mg/dl (1.7-2.4); Potassium 3.9 mmol/L (3.5-5.1)
[2022-11-26] MEDS: INSULIN ASPART PER UNIT SC SCH ×4 (08:01→20:33)
[2022-11-26] MEDS: LANTUS PER UNIT CHARGE SQ SCH ×2 (08:02→08:04)
[2022-11-26] MEDS: POTASSIUM CHLORIDE CRTAB 20 MEQ TABCR PO SCH ×3 (08:04→20:32)
[2022-11-26] MEDS: FLUTICASONE FUROATE 100MCG 14 PUFFS/INHALER INH SCH (08:05)
[2022-11-26] MEDS: busPIRone 5 MG TAB PO SCH ×3 (08:05→20:33)
[2022-11-26] MEDS: BUMETANIDE 4 MG in SYRINGE 0 ML IV SCH ×2 (08:06→19:06)
[2022-11-26] MEDS: ESCITALOPRAM OXALATE 20 MG TAB PO SCH (08:06)
[2022-11-26] MEDS: metOLazone 5 MG TABLET PO SCH (08:06)
[2022-11-26] MEDS: SPIRONOLACTONE 25 MG TAB PO SCH (08:06)
[2022-11-26] MEDS: UMECLIDINIUM/VILANTEROL 62.5/25MCG 7 PUFFS/INHALER INH SCH (08:07)
[2022-11-26] MEDS: ENOXAPARIN INJ 40 MG/0.4 ML SYR SQ SCH (08:07)
--- NOTE | 2022-11-26 12:15 | XRay Report ---
SINGLE VIEW CHEST CLINICAL HISTORY: Pulmonary edema. FINDINGS: An AP, portable, upright chest radiograph is compared to study dated 11/23/2022. Correlation is made with chest CT dated 11/12/2022. The examination is degraded by portable technique and apical lordotic positioning. There is evidence of previous cardiac valve surgery. The heart is enlarged noti ng atherosclerotic calcification of the thoracic aorta. Pulmonary vascular congestion persists. There are small pleural effusions with dependent consolidation. Emphysema is again noted. Foci of parenchy mal scarring are seen throughout both lungs. No pneumothorax is seen. The skeletal structures are ost eopenic. The bony thorax is grossly intact. IMPRESSION: 1. Cardiomegaly and emphysema. Pulmonary vascular congestion persists and is similar to previous. 2. Small pleural effusions with dependent consolidation. ACT 112: Negative or not required by law. Electronically signed by: Arun Christensen M.D. 11/26/2022 12:14 PM
[2022-11-26] MEDS: BUMETANIDE 2 MG in SYRINGE 0 ML IV SCH (16:09)
[2022-11-26] MEDS: LORazepam 0.5 MG TAB PO PRN (19:06)
[2022-11-26] MEDS ORDERED: PHENAZOPYRIDINE HCL 100 MG TAB PO PRN (19:31)
[2022-11-26] MEDS: ATORVASTATIN 40 MG TAB PO SCH (20:33)
--- NOTE | 2022-11-26 20:57 | Hospitalist Progress Note ---
Date of Service November 26, 2022 Assessment & Plan (1) Acute on chronic diastolic heart failure with preserved ejection fraction: Plan: diuretic-refractory diastolic CHF. had been taking triple diuretics - occasionally 4 - to maintain euvolemia without success as outpatient (bumex, metazolone, aldactone, +/- diamox). follows with Smita GILMAN in CHF clinic. noncompliance with BiPAP at HS for ABDIEL, diet, etc are culprits among others by report. cont metazolone 5mg qam 30 min prior to AM bumex. cont aldactone. cont bumex 4mg AM, 2mg afternoon, 4mg early evening weight has come down with the above, and his lung exam is modestly better (despite cxr looking the same today). repeat labs in am appreciate palliative care consult to refine goals of care with pt & his . repeat BMP am. (2) Acute on chronic respiratory failure with hypoxia and hypercapnia: Plan: Patient with tachypnea and increased work of breathing at ER presentation. This improved with bronchodilators, diuresis, etc. VBG obtained earlier in the admission - mild respiratory acidosis with hypercarbia noted. 2nd to noncompliance with BIPAP. discussed this issue with his - without use of BIPAP his hypercarbia will continue. he has previously refused to use BIPAP at any time during his hospital stays. cont NC O2 - target an O2 sat of 90-92% to prevent decrease in respiratory drive. (3) Iron deficiency anemia: Plan: 2nd to occult GI bleeding. AVMs?? has had endoscopic eval in the past without source discovered by way of EGD or colonoscopy. cbc today stable (4) Dyslipidemia: (5) Anemia: Plan: 2nd Fe def & chronic GI blood losses cbc today acceptable/stable (6) Atrial fibrillation: Plan: brief runs of PAF while here but mainly in NSR he is not on anticoagulation due to refractory Fe deficiency and occult GI bleeding (7) Anxiety and depression: Plan: cont lexapro cont scheduled buspar 10mg TID cont ativan 0.25mg prn (8) COPD with emphysema: Plan: advanced, with large O2 requirement at baseline (5 L at rest) cont inhalers, O2, etc. target o2 sats of 90-92%; avoid over-oxygenation (9) Hypertension: Plan: controlled (10) Aortic stenosis: Plan: s/p TAVR (11) Pulmonary hypertension: Plan: 2nd to COPD (12) Diabetes mellitus type 2, uncontrolled: Plan: a1c 7.4% cont lantus cont novolog adjust as needed (13) DVT prophylaxis: Plan: lovenox Plan appreciate palliative care consultation will update pt's tomorrow daily labs Admission and Anticipated Discharge Date Admission Date: November 23, 2022 Subjective was eating his meal during the visit he had been incontinent of urine and urine was all over the floor I offered to have staff place a lozano since he is voiding constantly from his diuretics - declined such stating "I'm not so sure" reports that his breathing is still "not so good" although he was comfortable during the entire visit denies any new complaints on tele he has had brief runs of what appears to be PAF Review of Systems Review of Systems: gen - appetite remains good cv - no chest pain pulm - ongoing dyspnea, mild cough GI - no pain Physical Exam Physical Exam: gen - sitting at side of bed eating his meal; NAD; comfortable neck - no obvious JVD sitting at 90 degrees mouth - MMM heart - irregular, s1 s2, no murmur lungs - decreased BS b/l but airation is better today; still with some crackles b/l skin - venous stasis changes b/l shins ext - 2+ edema b/l - no change, pulses 2+ b/l Results & Data Results & Data ([facility]) Vital Signs (Past 12 Hours) Vital Signs Temp Pulse Pulse Resp BP BP Pulse Ox 11/26/22 19:26 36.6 C 108 H 20 131/60 93 11/26/22 15:59 36.5 C 93 H 18 119/71 100 11/26/22 15:36 92 H 11/26/22 12:03 36.9 C 92 H 18 129/68 98 O2 Del Method O2 Flow Rate 11/26/22 19:26 Nasal Cannula 4 11/26/22 15:59 Nasal Cannula 5 11/26/22 15:36 11/26/22 12:03 Nasal Cannula 5 Laboratory Results Laboratory Results - last 24 hr 11/26/22 11/26/22 11/26/22 06:16 06:16 07:42 WBC 6.86 RBC 3.87 L Hgb 9.6 L Hct 30.8 L MCV 79.6 L MCH 24.8 L MCHC 31.2 L RDW Std Deviation 53.4 H RDW Coeff of Vesta 18.4 H Plt Count 335 MPV 10.7 Sodium 138 Potassium 3.9 D Chloride 91 L Carbon Dioxide 39 H Anion Gap 8 BUN 61 H Creatinine 1.30 Est Cr Clr Drug Dosing 52.0 Est GFR ( Amer) 60.1 Est GFR (Non-Af Amer) 51.9 BUN/Creatinine Ratio 46.9 H Glucose 168 H POC Glucose 182 H Calcium 10.2 H Magnesium 2.5 H 11/26/22 11/26/22 11/26/22 11:29 16:44 20:02 WBC RBC Hgb Hct MCV MCH MCHC RDW Std Deviation RDW Coeff of [place]esta Plt Count MPV Sodium Potassium Chloride Carbon Dioxide Anion Gap BUN Creatinine Est Cr Clr Drug Dosing Est GFR ( Amer) Est GFR (Non-Af Amer) BUN/Creatinine Ratio Glucose POC Glucose 119 H 153 H 252 H Calcium Magnesium Diagnostic Findings Chest X-Ray 11/26/22 07:30 SINGLE VIEW CHEST CLINICAL HISTORY: Pulmonary edema. FINDINGS: An AP, portable, upright chest radiograph is compared to study dated 11/23/2022. Correlation is made with chest CT dated 11/12/2022. The examination is degraded by portable technique and apical lordotic positioning. There is evidence of previous cardiac valve surgery. The heart is enlarged noting atherosclerotic calcification of the thoracic aorta. Pulmonary vascular congestion persists. There are small pleural effusions with dependent consolidation. Emphysema is again noted. Foci of parenchymal scarring are seen throughout both lungs. No pneumothorax is seen. The skeletal structures are osteopenic. The bony thorax is grossly intact. IMPRESSION: 1. Cardiomegaly and emphysema. Pulmonary vascular congestion persists and is similar to previous. 2. Small pleural effusions with dependent consolidation. ACT 112: Negative or not required by law. Electronically signed by: Arun Christensen M.D. 11/26/2022 12:14 PM PG Care Time/CCT Total # of Minutes Spent Total Time Spent with Patient: Total time spent is greater than 50% in coordination of care (as documented) at patient's floor/unit and/or counseling patient: Coding Level of Care Code 19515 SUB INP/OBS CARE 2/35MIN Diagnoses Acute on chronic diastolic heart failure with preserved ejection fraction I50.33 Acute on chronic respiratory failure with hypoxia and hypercapnia J96.21; J96.22 Iron deficiency anemia D50.9 Dyslipidemia E78.5 Anemia D64.9 Anemia type: unspecified type Atrial fibrillation I48.91 Atrial fibrillation type: unspecified Anxiety and depression F41.9; F32.A COPD with emphysema J43.9 Hypertension I10 Aortic stenosis I35.0 Cardiac valve disease etiology: etiology unspecified Pulmonary hypertension I27.20 Diabetes mellitus type 2, uncontrolled DVT prophylaxis Z29.9 (1) Anemia Anemia type: unspecified type Qualified Code(s): D64.9 - Anemia, unspecified (2) Aortic stenosis Cardiac valve disease etiology: etiology unspecified Qualified Code(s): I35.0 - Nonrheumatic aortic (valve) stenosis (3) Atrial fibrillation Atrial fibrillation type: unspecified Qualified Code(s): I48.91 - Unspecified atrial fibrillation
[2022-11-27 05:25] LABS: Appearance Urine Clear (Clear); Bacteria Urine Automated Negative (Negative); Bilirubin Urine Negative (Negative); Blood Urine 3+ (Negative); Color Urine Yellow; Epithelial Cell Urine Auto >30 /lpf (0-5); Glucose Urine UA Negative (Negative); Ketones Urine Negative (Negative); Leukocyte Esterase Urine Trace (Negative); Nitrite Urine Negative (Negative); Protein Urine Trace (Negative); RBC Urine Automated >30 /hpf (0-4); Specific Gravity Urine 1.012 (1.000-1.030); Urobilinogen Urine Negative (Negative); pH Urine 6.5 (4.5-7.5)
[2022-11-27 05:42] LABS: Renal Epithelial Cells Urine 0-5 /lpf (0-5)
[2022-11-27] MEDS: INSULIN ASPART PER UNIT SC SCH ×4 (08:26→22:25)
[2022-11-27] MEDS: LANTUS PER UNIT CHARGE SQ SCH (08:27)
[2022-11-27 08:37] LABS: Hematocrit (blood only) 33.6 % (40.1-51.0); Hemoglobin 10.3 g/dl (14.0-18.0); Mean Corpuscular Hemoglobin 24.7 pg (25.0-34.0); Mean Corpuscular Hgb Conc 30.7 g/dL (32.0-36.0); Mean Corpuscular Volume 80.6 fL (80.0-100.0); Mean Platelet Volume 10.9 fL (9.4-12.4); Platelet Count 345 K/uL (130-400); RDW Coefficient of Variation 18.6 % (11.5-14.5); RDW Standard Deviation 54.2 fL (36.4-46.3); Red Blood Count 4.17 M/uL (4.63-6.08); White Blood Count 8.24 K/ul (4.8-10.8)
[2022-11-27] MEDS: BUMETANIDE 4 MG in SYRINGE 0 ML IV SCH ×2 (08:50→22:48)
[2022-11-27] MEDS: ESCITALOPRAM OXALATE 20 MG TAB PO SCH (08:50)
[2022-11-27] MEDS: metOLazone 5 MG TABLET PO SCH (08:50)
[2022-11-27] MEDS: busPIRone 5 MG TAB PO SCH ×3 (08:50→22:22)
[2022-11-27] MEDS: POTASSIUM CHLORIDE CRTAB 20 MEQ TABCR PO SCH ×2 (08:51→22:23)
[2022-11-27] MEDS: ENOXAPARIN INJ 40 MG/0.4 ML SYR SQ SCH (08:52)
[2022-11-27] MEDS: SPIRONOLACTONE 25 MG TAB PO SCH (08:52)
[2022-11-27] MEDS: UMECLIDINIUM/VILANTEROL 62.5/25MCG 7 PUFFS/INHALER INH SCH (08:53)
[2022-11-27] MEDS: FLUTICASONE FUROATE 100MCG 14 PUFFS/INHALER INH SCH (08:53)
[2022-11-27 08:58] LABS: BUN Creatinine Ratio 50.7 (10-20); Calcium 10.5 mg/dl (8.5-10.1); Creatinine Clr Calc Pharmacy 49.3 ml/min; Est GFR (Non-African American) 49.1 ml/min; Potassium 4.2 mmol/L (3.5-5.1)
--- NOTE | 2022-11-27 11:39 | Communication Note ---
Date of Service: November 27, 2022 Pt is having decent response to diuresis and plan for SNF dc is underway. would like a trial of rehab. Code status clarified, he will need an out of hospital DNR sent with him t SNF. SNF can complete POLST with , who is presently unable to come to [facility] due to her own illness. There are no further acute inpatient palliative medicine needs, so I will sign off and remain available if re engagement is needed. Thank you for allowing us to be a part of this patient's care. TS 12min, chart review and d/w primary team, pt not seen/NO charge submitted. Caroline Preston DNP Clinical Director, Palliative Medicine
[2022-11-27] MEDS: BUMETANIDE 2 MG in SYRINGE 0 ML IV SCH (14:52)
--- NOTE | 2022-11-27 19:46 | Hospitalist Progress Note ---
Date of Service November 27, 2022 Assessment & Plan (1) Acute on chronic diastolic heart failure with preserved ejection fraction: Plan: presented with diuretic-refractory diastolic CHF. had been taking triple diuretics - occasionally 4 - at home to maintain euvolemia without success (bumex, metazolone, aldactone, +/- diamox). follows with Smita GILMAN in CHF clinic. noncompliance with BiPAP at HS for ABDIEL, diet, etc are culprits among others by report. since calcium level has risen will HOLD metazolone. cont aldactone today; hold tomorrow's dose until labs can be repeated. cont bumex 4mg AM, 2mg afternoon, 4mg early evening TODAY but hold this after tonight's dose -- recheck BMP in am for stability. We are approaching euvolemia -- no orthopnea, edema improved, BUN rising, calcium rising, weight today is 194# and his dry weight is somewhere between 185-190#.e appreciate palliative care consult to refine goals of care with pt & his . repeat BMP am. (2) Acute on chronic respiratory failure with hypoxia and hypercapnia: Plan: Patient with tachypnea and increased work of breathing at ER presentation. This improved with bronchodilators, diuresis, etc. VBG obtained earlier in the admission - mild respiratory acidosis with hypercarbia noted. 2nd to noncompliance with BIPAP. acute component 2nd to decompensated CHF in setting of severe COPD/ABDIEL/etc. discussed this issue with his - without use of BIPAP his hypercarbia will continue. he has previously refused to use BIPAP at any time during his hospital stays. cont NC O2 - target an O2 sat of 90-92% to prevent decrease in respiratory drive. (3) Iron deficiency anemia: Plan: 2nd to occult GI bleeding. AVMs?? has had endoscopic eval in the past without source discovered by way of EGD or colonoscopy. cbcs stable while here (4) Dyslipidemia: Plan: cont statin agent (5) Anemia: Plan: 2nd Fe def & chronic GI blood losses stable H/H (6) Atrial fibrillation: Plan: brief runs of PAF while here but mainly in NSR he is not on anticoagulation due to refractory Fe deficiency and occult GI bleeding at times rates are low 100s consider low dose BB (7) Anxiety and depression: Plan: cont lexapro cont scheduled buspar 10mg TID stop PO ativan - might be contributing to confusion (8) COPD with emphysema: Plan: advanced, with large O2 requirement at baseline (5 L at rest) cont inhalers, O2, etc. target o2 sats of 90-92%; avoid over-oxygenation (9) Hypertension: Plan: controlled (10) Aortic stenosis: Plan: s/p TAVR (11) Pulmonary hypertension: Plan: 2nd to COPD (12) Diabetes mellitus type 2, uncontrolled: Plan: a1c 7.4% cont lantus but increase to 14 units starting tomorrow cont novolog (13) DVT prophylaxis: Plan: lovenox (14) Acute encephalopathy: Plan: 2nd to ativan? 2nd to hypercarbia? 2nd to hospital psychosis? brewing UTI? stop ativan ideally he would use BIPAP but refuses at every admission follow urine cx uncertain if he has had unwitnessed falls at home - thus, will check head CT r/o SDH, other acute pathology (15) Gross hematuria: Plan: 1 episode blood noted on u/a and micro await culture CT a/p 06/2022 without urinary tract pathology (stones, etc) follow carefully Plan appreciate palliative care consultation extensively updated by phone PT/OT papo requested dispo - SNF post-d/c Admission and Anticipated Discharge Date Admission Date: November 23, 2022 Subjective patient very comfortable during the visit he was sleeping when I first arrived; easily awoke asked "when can I go home?" he is feeling better; denies dyspnea this am eating well I spoke with pt's over the phone today - she reports he was very confused yesterday but more oriented today he has had intermittent delirium off/on for some time late in the day nursing reported 1 episode of mild gross hematuria but no LUTs Review of Systems Review of Systems: cv - no cp, no orthopnea; edema better pulm - some cough GI - no abd pain/nausea/emesis Physical Exam Physical Exam: gen - sleeping comfortably, NAD, easily awakens to name being called neck - no JVD mouth - MMM heart - irregular, s1 s2, no murmur lungs - scant rales b/l, airation nearly normal, no wheezes; no increased work of breathing abd - soft NT ND BS+ skin - venous stasis changes b/l shins ext - <1+ edema b/l, pulses 2+ b/l Results & Data Results & Data ([facility]) Vital Signs (Past 12 Hours) Vital Signs Temp Pulse Pulse Resp BP Pulse Ox O2 Del Method 11/27/22 14:23 82 11/27/22 15:42 36.6 C 102 H 20 137/63 96 Nasal Cannula 11/27/22 11:45 36.4 C L 90 24 137/59 L 98 Nasal Cannula 11/27/22 08:00 Nasal Cannula O2 Flow Rate 11/27/22 14:23 11/27/22 15:42 3 11/27/22 11:45 3 11/27/22 08:00 3 Laboratory Results Laboratory Results - last 24 hr 11/26/22 11/27/22 11/27/22 20:02 04:57 07:41 WBC RBC Hgb Hct MCV MCH MCHC RDW Std Deviation RDW Coeff of Vesta Plt Count MPV Sodium Potassium Chloride Carbon Dioxide Anion Gap BUN Creatinine Est Cr Clr Drug Dosing Est GFR ( Amer) Est GFR (Non-Af Amer) BUN/Creatinine Ratio Glucose POC Glucose 252 H 164 H Calcium Urine Color Yellow Urine Appearance Clear Urine pH 6.5 Ur Specific [place] 1.012 Urine Protein Trace H Urine Glucose (UA) Negative Urine Ketones Negative Urine Blood 3+ H Urine Nitrite Negative Urine Bilirubin Negative Urine Urobilinogen Negative Ur Leukocyte Esterase Trace H Urine WBC (Auto) 10-30 H Urine RBC (Auto) >30 H U Hyaline Cast (Auto) 1-5 U Epithel Cells (Auto) >30 H Urine Bacteria (Auto) Negative Ur Renal Epithelial Cell 0-5 11/27/22 11/27/22 11/27/22 08:14 08:14 11:36 WBC 8.24 RBC 4.17 L Hgb 10.3 L Hct 33.6 L MCV 80.6 MCH 24.7 L MCHC 30.7 L RDW Std Deviation 54.2 H RDW Coeff of Vesta 18.6 H Plt Count 345 MPV 10.9 Sodium 139 Potassium 4.2 Chloride 93 L Carbon Dioxide 39 H Anion Gap 7 BUN 69 H Creatinine 1.36 Est Cr Clr Drug Dosing 49.3 Est GFR ( Amer) 57.0 Est GFR (Non-Af Amer) 49.1 BUN/Creatinine Ratio 50.7 H Glucose 156 H POC Glucose 193 H Calcium 10.5 H Urine Color Urine Appearance Urine pH Ur Specific [place] Urine Protein Urine Glucose (UA) Urine Ketones Urine Blood Urine Nitrite Urine Bilirubin Urine Urobilinogen Ur Leukocyte Esterase Urine WBC (Auto) Urine RBC (Auto) U Hyaline Cast (Auto) U Epithel Cells (Auto) Urine Bacteria (Auto) Ur Renal Epithelial Cell 11/27/22 16:34 WBC RBC Hgb Hct MCV MCH MCHC RDW Std Deviation RDW Coeff of Vesta Plt Count MPV Sodium Potassium Chloride Carbon Dioxide Anion Gap BUN Creatinine Est Cr Clr Drug Dosing Est GFR ( Amer) Est GFR (Non-Af Amer) BUN/Creatinine Ratio Glucose POC Glucose 75 Calcium Urine Color Urine Appearance Urine pH Ur Specific [place] Urine Protein Urine Glucose (UA) Urine Ketones Urine Blood Urine Nitrite Urine Bilirubin Urine Urobilinogen Ur Leukocyte Esterase Urine WBC (Auto) Urine RBC (Auto) U Hyaline Cast (Auto) U Epithel Cells (Auto) Urine Bacteria (Auto) Ur Renal Epithelial Cell PG Care Time/CCT Total # of Minutes Spent Total Time Spent with Patient: Total time spent is greater than 50% in coordination of care (as documented) at patient's floor/unit and/or counseling patient: Coding Level of Care Code 29457 SUB INP/OBS CARE 3/50MIN Diagnoses Acute on chronic diastolic heart failure with preserved ejection fraction I50.33 Acute on chronic respiratory failure with hypoxia and hypercapnia J96.21; J96.22 Iron deficiency anemia D50.9 Dyslipidemia E78.5 Anemia D64.9 Anemia type: unspecified type Atrial fibrillation I48.91 Atrial fibrillation type: unspecified Anxiety and depression F41.9; F32.A COPD with emphysema J43.9 Hypertension I10 Aortic stenosis I35.0 Cardiac valve disease etiology: etiology unspecified Pulmonary hypertension I27.20 Diabetes mellitus type 2, uncontrolled DVT prophylaxis Z29.9 Acute encephalopathy G93.40 Gross hematuria R31.0 (1) Anemia Anemia type: unspecified type Qualified Code(s): D64.9 - Anemia, unspecified (2) Aortic stenosis Cardiac valve disease etiology: etiology unspecified Qualified Code(s): I35.0 - Nonrheumatic aortic (valve) stenosis (3) Atrial fibrillation Atrial fibrillation type: unspecified Qualified Code(s): I48.91 - Unspecified atrial fibrillation
[2022-11-27] MEDS: ATORVASTATIN 40 MG TAB PO SCH (22:23)
[2022-11-28 08:02] LABS: Potassium 3.5 mmol/L (3.5-5.1)
[2022-11-28] MEDS: LANTUS PER UNIT CHARGE SQ SCH (08:30)
[2022-11-28] MEDS: INSULIN ASPART PER UNIT SC SCH ×4 (08:30→21:22)
[2022-11-28] MEDS: FLUTICASONE FUROATE 100MCG 14 PUFFS/INHALER INH SCH (08:32)
[2022-11-28] MEDS: ENOXAPARIN INJ 40 MG/0.4 ML SYR SQ SCH (08:32)
[2022-11-28] MEDS: UMECLIDINIUM/VILANTEROL 62.5/25MCG 7 PUFFS/INHALER INH SCH (08:33)
[2022-11-28] MEDS: busPIRone 5 MG TAB PO SCH ×3 (08:33→21:32)
[2022-11-28] MEDS: POTASSIUM CHLORIDE CRTAB 20 MEQ TABCR PO SCH ×2 (08:33→21:33)
[2022-11-28] MEDS: ESCITALOPRAM OXALATE 20 MG TAB PO SCH (08:34)
[2022-11-28 08:49] LABS: Creatinine Clr Calc Pharmacy 44.7 ml/min; Est GFR (African American) 50.6 ml/min; Est GFR (Non-African American) 43.7 ml/min
--- NOTE | 2022-11-28 10:17 | XRay Report ---
XR chest 2V PA/lateral HISTORY: 77 years-old Male pulm edema, interval change acute shortness of breath COMPARISON: Chest radiograph 11/26/2022 TECHNIQUE: PA and lateral views of the chest FINDINGS: Cardiac silhouette is enlarged. Aortic valvular endograft. Atherosclerosis of the aorta. No pneumotho rax. Small layering pleural effusions with bibasilar opacities, similar to prior. Edema. IMPRESSION: 1. Cardiomegaly with decreased pulmonary vascular congestion. 2. Unchanged small pleural effusions with bibasilar opacities. 3. Emphysema. ACT 112: Negative or not required by law. The above report was generated using voice recognition software. It may contain grammatical, syntax o r spelling errors. Electronically signed by: Volodymyr Ferrara M.D. 11/28/2022 10:15 AM
--- NOTE | 2022-11-28 10:27 | CT Scan Report ---
CT head/brain wo con CLINICAL HISTORY: 77 years-old Male with confusion, ?falls. Acutely altered mental status. TECHNIQUE: Multiple axial CT images of the head were obtained without contrast. A dose lowering tech nique was utilized adhering to the principles of ALARA. CT DOSE: 2963.40 mGy.cm COMPARISON: Head CT 04/14/2022 FINDINGS: No acute intracranial hemorrhage, midline shift, intracranial mass, hydrocephalus, territorial ischem ia or abnormal extra-axial collection. Age-related involutional changes with chronic microvascular is chemic disease. The study is motion degraded. The calvarium is intact. Minimal mucosal thickening of the paranasal sinuses. The mastoid air cells are clear. Prior bilateral lens repair. IMPRESSION: No acute intracranial abnormality. ACT 112: Negative or not required by law. The above report was generated using voice recognition software. It may contain grammatical, syntax o r spelling errors. Electronically signed by: Volodymyr Ferrara M.D. 11/28/2022 10:25 AM
[2022-11-28] MEDS: MoRPHine SULFATE 10 MG/0.5 ML UDP PO PRN (14:45)
[2022-11-28] MEDS: ALBUT/IPRATROP 3MG/0.5MG NEB 3 ML VIAL NEB PRN (15:41)
[2022-11-28] MEDS ORDERED: acetaZOLAMIDE 250 MG TAB PO SCH (17:00)
--- NOTE | 2022-11-28 17:43 | Hospitalist Progress Note ---
Date of Service November 28, 2022 Assessment & Plan (1) Acute on chronic diastolic heart failure with preserved ejection fraction: Plan: acute component markedly improved. approaching euvolemia or even slightly dry at this time. baseline dry weight 185-190 pounds. BUN/Cr have risen, bicarbonate has risen, weight approaching his dry weight - place bumex/aldactone on hold today. since calcium level had risen metazolone placed on hold 11/27. will give diamox 250mg BID x 2 days. repeat BMP am. presented with diuretic-refractory diastolic CHF. had been taking triple diuretics - occasionally 4 - at home to maintain euvolemia without success (bumex, metazolone, aldactone, +/- diamox). follows with Smita GILMAN in CHF clinic. noncompliance with BiPAP at for ABDIEL, diet, etc are culprits among others by report. a.fib/a.flutter could also have contributed to decompensation since we have seen a fair amount of dysrhythmia while here. (2) Acute on chronic respiratory failure with hypoxia and hypercapnia: Plan: Patient with tachypnea and increased work of breathing at ER presentation. This improved with bronchodilators, diuresis, etc. VBG obtained earlier in the admission - mild respiratory acidosis with hypercarbia noted. 2nd to noncompliance with BIPAP. acute component 2nd to decompensated CHF in setting of severe COPD/ABDIEL/etc. discussed this issue with his - without use of BIPAP his hypercarbia will continue. he has previously refused to use BIPAP at any time during his hospital stays. cont NC O2 - target an O2 sat of 90-92% to prevent decrease in respiratory drive. (3) Iron deficiency anemia: Plan: 2nd to occult GI bleeding. AVMs?? has had endoscopic eval in the past without source discovered by way of EGD or colonoscopy. cbcs stable while here Hb 10.3 on 11/27/22 (4) Dyslipidemia: Plan: cont statin agent (5) Anemia: Plan: 2nd Fe def & chronic GI blood losses stable H/H (6) Atrial fibrillation: Plan: brief runs of PAF earlier this stay over the last 1-2 days his a.fib/a.flutter has been much more prevalent however rates even at rest are often 100-110 he is not on anticoagulation due to refractory Fe deficiency and occult GI bleeding due to his recurrent CHF, a.fib/flutter, etc --> start metoprolol 25mg BID (7) Anxiety and depression: Plan: cont lexapro cont scheduled buspar 10mg TID stopped PO ativan - might have been contributing to confusion (8) COPD with emphysema: Plan: advanced, with large O2 requirement at baseline (5 L at rest) cont inhalers, O2, etc. target o2 sats of 90-92%; avoid over-oxygenation (9) Hypertension: Plan: controlled (10) Aortic stenosis: Plan: s/p TAVR (11) Pulmonary hypertension: Plan: 2nd to COPD (12) Diabetes mellitus type 2, uncontrolled: Plan: a1c 7.4% cont lantus but increase to 14 units starting this am cont novolog but increase correction factor to 25 and carb ratio 1:8 (13) DVT prophylaxis: Plan: lovenox (14) Acute encephalopathy: Plan: 2nd to ativan? 2nd to hypercarbia? 2nd to hospital psychosis? brewing UTI? stopped ativan ideally he would use BIPAP but refuses at every admission urine cx negative CT head today NEGATIVE for acute findings underlying mild cognitive impairment? (15) Gross hematuria: Plan: 1 episode on 11/27 blood noted on u/a and micro urine cx negative no gross hematuria since yesterday CT a/p 06/2022 without urinary tract pathology (stones, etc) follow for recurrence Plan appreciate palliative care consultation extensively updated by phone yesterday PT/OT papo requested dispo - SNF post-d/c Admission and Anticipated Discharge Date Admission Date: November 23, 2022 Subjective tele overnight - a.fib and a.flutter, rates 90s to 110 during the visit he was lying down nearly flat in bed denied any dyspnea today he is anxious to go stating "just let me out of here" no new complaints eating well Review of Systems Review of Systems: gen - no fevers, chills; energy good; appetite good cv - no chest pain pulm - no cough, no dyspnea today GI - no nausea/emesis Physical Exam Physical Exam: gen - NAD, lying comfortably in bed neck - no JVD mouth - MMM heart - irregular, s1 s2, no murmur; rate ~100 BPM lungs - CTA b/l; no rales; no wheezing abd - soft NT ND BS+ skin - venous stasis changes b/l shins ext - no edema b/l, pulses 2+ b/l Results & Data Results & Data ([facility] [place]) Vital Signs (Past 12 Hours) Vital Signs Temp Pulse Pulse Resp BP Pulse Ox Pulse Ox 11/28/22 16:44 37 C 92 H 20 143/63 H 91 11/28/22 15:42 83 20 95 11/28/22 12:32 86 L 11/28/22 11:56 36.5 C 91 H 20 131/54 L 95 11/28/22 07:51 36.6 C 76 19 153/71 H 94 11/28/22 07:35 20 11/28/22 07:35 11/28/22 06:00 80 11/28/22 06:09 36.5 C 80 18 117/57 L 96 O2 Del Method O2 Flow Rate O2 Flow Rate 11/28/22 16:44 Nasal Cannula 3 11/28/22 15:42 Nasal Cannula 3 11/28/22 12:32 3 11/28/22 11:56 Nasal Cannula 3 11/28/22 07:51 Nasal Cannula 2 11/28/22 07:35 Nasal Cannula 3 11/28/22 07:35 Nasal Cannula 3 11/28/22 06:00 11/28/22 06:09 Nasal Cannula 3 Laboratory Results Laboratory Results - last 24 hr 11/27/22 11/28/22 11/28/22 20:07 07:02 07:37 Sodium 137 Potassium 3.5 Chloride 90 L Carbon Dioxide 42 H* Anion Gap 5 BUN 69 H Creatinine 1.50 H Est Cr Clr Drug Dosing 44.7 Est GFR ( Amer) 50.6 Est GFR (Non-Af Amer) 43.7 BUN/Creatinine Ratio 46.0 H Glucose 171 H POC Glucose 285 H 196 H Calcium 10.0 11/28/22 11/28/22 11:41 16:47 Sodium Potassium Chloride Carbon Dioxide Anion Gap BUN Creatinine Est Cr Clr Drug Dosing Est GFR ( Amer) Est GFR (Non-Af Amer) BUN/Creatinine Ratio Glucose POC Glucose 134 H 230 H Calcium Diagnostic Findings Chest X-Ray 11/28/22 07:30 XR chest 2V PA/lateral HISTORY: 77 years-old Male pulm edema, interval change acute shortness of breath COMPARISON: Chest radiograph 11/26/2022 TECHNIQUE: PA and lateral views of the chest FINDINGS: Cardiac silhouette is enlarged. Aortic valvular endograft. Atherosclerosis of the aorta. No pneumothorax. Small layering pleural effusions with bibasilar opacities, similar to prior. Edema. IMPRESSION: 1. Cardiomegaly with decreased pulmonary vascular congestion. 2. Unchanged small pleural effusions with bibasilar opacities. 3. Emphysema. ACT 112: Negative or not required by law. The above report was generated using voice recognition software. It may contain grammatical, syntax or spelling errors. Electronically signed by: Volodymyr Ferrara M.D. 11/28/2022 10:[address] 11/28/22 07:30 CT head/brain wo con CLINICAL HISTORY: 77 years-old Male with confusion, ?falls. Acutely altered mental status. TECHNIQUE: Multiple axial CT images of the head were obtained without contrast. A dose lowering technique was utilized adhering to the principles of ALARA. CT DOSE: 2963.40 mGy.cm COMPARISON: Head CT 04/14/2022 FINDINGS: No acute intracranial hemorrhage, midline shift, intracranial mass, hydrocephalus, territorial ischemia or abnormal extra-axial collection. Age- related involutional changes with chronic microvascular ischemic disease. The study is motion degraded. The calvarium is intact. Minimal mucosal thickening of the paranasal sinuses. The mastoid air cells are clear. Prior bilateral lens repair. IMPRESSION: No acute intracranial abnormality. ACT 112: Negative or not required by law. The above report was generated using voice recognition software. It may contain grammatical, syntax or spelling errors. Electronically signed by: Volodymyr Ferrara M.D. 11/28/2022 10:25 AM PG Care Time/CCT Total # of Minutes Spent Total Time Spent with Patient: Total time spent is greater than 50% in coordination of care (as documented) at patient's floor/unit and/or counseling patient: Coding Level of Care Code 33916 SUB INP/OBS CARE 2/35MIN Diagnoses Acute on chronic diastolic heart failure with preserved ejection fraction I50.33 Acute on chronic respiratory failure with hypoxia and hypercapnia J96.21; J96.22 Iron deficiency anemia D50.9 Dyslipidemia E78.5 Anemia D64.9 Anemia type: unspecified type Atrial fibrillation I48.91 Atrial fibrillation type: unspecified Anxiety and depression F41.9; F32.A COPD with emphysema J43.9 Hypertension I10 Aortic stenosis I35.0 Cardiac valve disease etiology: etiology unspecified Pulmonary hypertension I27.20 Diabetes mellitus type 2, uncontrolled DVT prophylaxis Z29.9 Acute encephalopathy G93.40 Gross hematuria R31.0 (1) Anemia Anemia type: unspecified type Qualified Code(s): D64.9 - Anemia, unspecified (2) Aortic stenosis Cardiac valve disease etiology: etiology unspecified Qualified Code(s): I35.0 - Nonrheumatic aortic (valve) stenosis (3) Atrial fibrillation Atrial fibrillation type: unspecified Qualified Code(s): I48.91 - Unspecified atrial fibrillation
[2022-11-28] MEDS: METOPROLOL TARTRATE 25 MG TAB PO SCH (21:31)
[2022-11-28] MEDS: ATORVASTATIN 40 MG TAB PO SCH (21:33)
[2022-11-29 06:13] LABS: Hematocrit (blood only) 29.8 % (40.1-51.0); Hemoglobin 9.1 g/dl (14.0-18.0); Mean Corpuscular Hemoglobin 24.9 pg (25.0-34.0); Mean Corpuscular Hgb Conc 30.5 g/dL (32.0-36.0); Mean Corpuscular Volume 81.4 fL (80.0-100.0); Mean Platelet Volume 10.8 fL (9.4-12.4); Platelet Count 323 K/uL (130-400); RDW Coefficient of Variation 18.5 % (11.5-14.5); RDW Standard Deviation 54.9 fL (36.4-46.3); Red Blood Count 3.66 M/uL (4.63-6.08); White Blood Count 7.96 K/ul (4.8-10.8)
[2022-11-29 06:31] LABS: BUN Creatinine Ratio 49.3 (10-20); Calcium 9.7 mg/dl (8.5-10.1); Creatinine Clr Calc Pharmacy 47.7 ml/min; Est GFR (African American) 54.1 ml/min; Est GFR (Non-African American) 46.6 ml/min; Potassium 3.8 mmol/L (3.5-5.1)
[2022-11-29] MEDS: UMECLIDINIUM/VILANTEROL 62.5/25MCG 7 PUFFS/INHALER INH SCH (08:51)
[2022-11-29] MEDS: INSULIN ASPART PER UNIT SC SCH ×4 (08:52→22:00)
[2022-11-29] MEDS: FLUTICASONE FUROATE 100MCG 14 PUFFS/INHALER INH SCH (08:52)
[2022-11-29] MEDS: busPIRone 5 MG TAB PO SCH ×3 (08:53→22:06)
[2022-11-29] MEDS: POTASSIUM CHLORIDE CRTAB 20 MEQ TABCR PO SCH ×2 (08:53→22:06)
[2022-11-29] MEDS: METOPROLOL TARTRATE 25 MG TAB PO SCH ×2 (08:53→22:06)
[2022-11-29] MEDS: ENOXAPARIN INJ 40 MG/0.4 ML SYR SQ SCH (08:53)
[2022-11-29] MEDS: ESCITALOPRAM OXALATE 20 MG TAB PO SCH (08:53)
[2022-11-29] MEDS: MoRPHine SULFATE 10 MG/0.5 ML UDP PO PRN (09:53)
[2022-11-29] MEDS: LANTUS PER UNIT CHARGE SQ SCH (09:53)
[2022-11-29] MEDS: ALBUT/IPRATROP 3MG/0.5MG NEB 3 ML VIAL NEB PRN ×2 (10:32→14:43)
[2022-11-29] MEDS ORDERED: acetaZOLAMIDE 250 MG TAB PO ONE (13:03)
--- NOTE | 2022-11-29 20:01 | Hospitalist Progress Note ---
Date of Service November 29, 2022 Assessment & Plan (1) Acute on chronic diastolic heart failure with preserved ejection fraction: Plan: acute component resolved. baseline dry weight 185-190 pounds per history; his weight today is 198. However - BUN/Cr have risen, bicarbonate has risen - placed bumex/aldactone/metazolone on hold. give another dose of diamox today for contraction alkalosis. repeat BMP am. presented with diuretic-refractory diastolic CHF. had been taking triple diuretics - occasionally 4 - at home to maintain euvolemia without success (bumex, metazolone, aldactone, +/- diamox). follows with Smita GILMAN in CHF clinic. noncompliance with BiPAP at HS for ABDIEL, diet, etc are culprits among others by report. a.fib/a.flutter could also have contributed to decompensation since we have seen a fair amount of dysrhythmia while here. (2) Acute on chronic respiratory failure with hypoxia and hypercapnia: Plan: Patient with tachypnea and increased work of breathing at ER presentation. This improved with bronchodilators, diuresis, etc. VBG obtained earlier in the admission - mild respiratory acidosis with h ypercarbia noted. 2nd to noncompliance with BIPAP. acute component 2nd to decompensated CHF in setting of severe COPD/ABDIEL/etc. he refuses use of BIPAP. cont NC O2 - target an O2 sat of 90-92%. (3) Iron deficiency anemia: Plan: 2nd to occult GI bleeding. AVMs?? has had endoscopic eval in the past without source discovered by way of EGD or colonoscopy. cbcs stable while here including's today cbc (4) Dyslipidemia: Plan: cont statin agent (5) Anemia: Plan: 2nd Fe def & chronic GI blood losses stable H/H once again (6) Atrial fibrillation: Plan: brief runs of PAF earlier this stay over the last 1-2 days his a.fib/a.flutter has been much more prevalent however rates even at rest often 100-110 he is not on anticoagulation due to refractory Fe deficiency and occult GI bleeding due to his recurrent CHF, a.fib/flutter, etc --> started metoprolol 25mg BID converted overnight back to NSR (7) Anxiety and depression: Plan: cont lexapro cont scheduled buspar 10mg TID stopped PO ativan - might have been contributing to confusion (8) COPD with emphysema: Plan: advanced, with large O2 requirement at baseline (5 L at rest) cont inhalers, O2, etc. target o2 sats of 90-92%; avoid over-oxygenation (9) Hypertension: Plan: controlled (10) Aortic stenosis: Plan: s/p TAVR (11) Pulmonary hypertension: Plan: 2nd to COPD (12) Diabetes mellitus type 2, uncontrolled: Plan: a1c 7.4% cont lantus 14 units am cont novolog had low overnight - due to novolog correction (13) DVT prophylaxis: Plan: lovenox (14) Acute encephalopathy: Plan: stopped ativan ideally he would use BIPAP but refuses at every admission urine cx negative CT head today NEGATIVE underlying mild cognitive impairment? (15) Gross hematuria: Plan: 1 episode on 11/27 blood noted on u/a and micro urine cx negative no gross hematuria since 11/27 CT a/p 06/2022 without urinary tract pathology (stones, etc) follow for recurrence Plan appreciate palliative care consultation extensively updated by phone this week PT/OT dispo - SNF post-d/c Admission and Anticipated Discharge Date Admission Date: November 23, 2022 Subjective patient converted from a.fib to NSR about midnight last pm has stayed in NSR since that time patient resting nearly flat in bed during the visit he states he feels well eating well we talked about rehab and going for such post-discharge no new issues Review of Systems Review of Systems: CV - no chest pain pulm - minimal/scant cough; no dyspnea at rest; + [place] GI - no abd pain/N/V Physical Exam Physical Exam: gen - NAD, lying comfortably in bed neck - no JVD mouth - MMM heart - RRR, s1 s2, no murmur lungs - R basilar rales only; left lung clear; no wheezing abd - soft NT ND BS+ skin - venous stasis changes b/l shins ext - no edema b/l, pulses 2+ b/l Results & Data Results & Data ([place]) Vital Signs (Past 12 Hours) Vital Signs Temp Pulse Pulse Resp BP Pulse Ox O2 Del Method 11/29/22 14:35 75 11/29/22 15:10 36.8 C 98 H 19 131/72 96 Nasal Cannula 11/29/22 14:43 74 18 90 Nasal Cannula 11/29/22 11:00 94 Nasal Cannula 11/29/22 11:22 36.5 C 68 19 119/67 96 Nasal Cannula 11/29/22 10:33 70 20 92 Nasal Cannula O2 Flow Rate 11/29/22 14:35 11/29/22 15:10 3 11/29/22 14:43 3 11/29/22 11:00 3 11/29/22 11:22 3 11/29/22 10:33 3 Laboratory Results Laboratory Results - last 24 hr 11/28/22 11/28/22 11/29/22 20:12 20:32 05:07 WBC 7.96 RBC 3.66 L Hgb 9.1 L Hct 29.8 L MCV 81.4 MCH 24.9 L MCHC 30.5 L RDW Std Deviation 54.9 H RDW Coeff of [place] 18.5 H Plt Count 323 MPV 10.8 Sodium Potassium Chloride Carbon Dioxide Anion Gap BUN Creatinine Est Cr Clr Drug Dosing Est GFR ( Amer) Est GFR (Non-Af Amer) BUN/Creatinine Ratio Glucose POC Glucose 49 L* 96 Calcium 11/29/22 11/29/22 11/29/22 05:07 07:33 11:32 WBC RBC Hgb Hct MCV MCH MCHC RDW Std Deviation RDW Coeff of [place] Plt Count MPV Sodium 135 L Potassium 3.8 Chloride 91 L Carbon Dioxide 39 H Anion Gap 5 BUN 70 H Creatinine 1.42 H Est Cr Clr Drug Dosing 47.7 Est GFR ( Amer) 54.1 Est GFR (Non-Af Amer) 46.6 BUN/Creatinine Ratio 49.3 H Glucose 222 H POC Glucose 276 H 72 Calcium 9.7 11/29/22 16:44 WBC RBC Hgb Hct MCV MCH MCHC RDW Std Deviation RDW Coeff of [place] Plt Count MPV Sodium Potassium Chloride Carbon Dioxide Anion Gap BUN Creatinine Est Cr Clr Drug Dosing Est GFR ( Amer) Est GFR (Non-Af Amer) BUN/Creatinine Ratio Glucose POC Glucose 275 H Calcium PG Care Time/CCT Total # of Minutes Spent Total Time Spent with Patient: Total time spent is greater than 50% in coordination of care (as documented) at patient's floor/unit and/or counseling patient: Coding Level of Care Code 81470 SUB INP/OBS CARE 2/35MIN Diagnoses Acute on chronic diastolic heart failure with preserved ejection fraction I50.33 Acute on chronic respiratory failure with hypoxia and hypercapnia J96.21; J96.22 Iron deficiency anemia D50.9 Dyslipidemia E78.5 Anemia D64.9 Anemia type: unspecified type Atrial fibrillation I48.91 Atrial fibrillation type: unspecified Anxiety and depression F41.9; F32.A COPD with emphysema J43.9 Hypertension I10 Aortic stenosis I35.0 Cardiac valve disease etiology: etiology unspecified Pulmonary hypertension I27.20 Diabetes mellitus type 2, uncontrolled DVT prophylaxis Z29.9 Acute encephalopathy G93.40 Gross hematuria R31.0 (1) Anemia Anemia type: unspecified type Qualified Code(s): D64.9 - Anemia, unspecified (2) Aortic stenosis Cardiac valve disease etiology: etiology unspecified Qualified Code(s): I35.0 - Nonrheumatic aortic (valve) stenosis (3) Atrial fibrillation Atrial fibrillation type: unspecified Qualified Code(s): I48.91 - Unspecified atrial fibrillation
[2022-11-29] MEDS ORDERED: MELATONIN 3 MG TAB PO SCH (21:00)
[2022-11-29] MEDS: ATORVASTATIN 40 MG TAB PO SCH (22:06)
[2022-11-30] MEDS: LANTUS PER UNIT CHARGE SQ SCH (08:32)
[2022-11-30] MEDS: UMECLIDINIUM/VILANTEROL 62.5/25MCG 7 PUFFS/INHALER INH SCH (08:33)
[2022-11-30] MEDS: INSULIN ASPART PER UNIT SC SCH ×2 (08:33→12:35)
[2022-11-30] MEDS: ENOXAPARIN INJ 40 MG/0.4 ML SYR SQ SCH (08:34)
[2022-11-30] MEDS: FLUTICASONE FUROATE 100MCG 14 PUFFS/INHALER INH SCH (08:34)
[2022-11-30] MEDS: busPIRone 5 MG TAB PO SCH ×2 (08:35→14:56)
[2022-11-30] MEDS: POTASSIUM CHLORIDE CRTAB 20 MEQ TABCR PO SCH (08:35)
[2022-11-30] MEDS: ESCITALOPRAM OXALATE 20 MG TAB PO SCH (08:35)
[2022-11-30] MEDS: METOPROLOL TARTRATE 25 MG TAB PO SCH (08:35)
[2022-11-30 09:08] LABS: BUN Creatinine Ratio 46.7 (10-20); Calcium 10.1 mg/dl (8.5-10.1); Creatinine Clr Calc Pharmacy 44.5 ml/min; Est GFR (African American) 49.8 ml/min; Potassium 3.8 mmol/L (3.5-5.1)
[2022-11-30] MEDS: ALBUT/IPRATROP 3MG/0.5MG NEB 3 ML VIAL NEB PRN (10:32)
--- NOTE | 2022-11-30 15:05 | Psychiatric Consultation ---
Date of Consultation November 30, 2022 Impression / Recommendations Impression 77 yo man with multiple significant medical conditions including DHF, COPD, anxiety and likely vascular dementia with frequent hospitalizations and now with worsening confusion and insight into his conditions. Diagnostically could be component of delirium contributing to mental status changes but also suspect dementia given progressive nature of symptoms. Decision making capacity evaluation was done regarding his capacity to refuse testing coordinator care placement if his feels unable to manage him at home. At this time, as outlined below, I feel he DOES NOT have decision making capacity to refuse long-term care placement as he cannot articulate his medical conditions, treatments needed and how to provide for his own needs at home and collateral information concerning for worsening cognitive impairment (and signs of this on exam today) which significantly limit his ability to think rationally about risks/benefits of such an impactful decision. If his decides to try to manage him again at home w ould recommend wander alarms be placed around the home, that he continue to have no access to car/should not be allowed to drive, and that his continue to consider if he would desire hospice if quality of life continues to decompensate as she serves as his surrogate decision maker. Assessment of Decision-Making Capacity 0 Criterion (X=present) Patient Task X Communicates a choice Patient is able to clearly indicate preferred treatment option BUT NOT in a clear and consistent manner NO Understands information provided Patient does not understand their condition and treatment options NO Appreciates consequences Patient doesn't show appropriately nuanced appreciation for the risks & benefits associated with available treatment options, including no treatment NO Manipulates relevant information Patient able to rationally weigh risks & benefits, as well as offer reasons for their decision It is important to note that a patient's decision can be unwise as long as a rational process was used to arrive at it. Decision making capacity determinations are decision and time specific. This patient does not have capacity with respect to this particular decision-making task at this time. He is not able to articulate reasons for his decision and shows signs of cognitive impairment and possible delirium that interferes with his ability to meaningfully understand information and appreciate the risks of refusing treatment disposition recommendations. The patient's decision making capacity could change in the future given that their mental status and various other factors can certainly fluctuate over time. (1) Acute encephalopathy: (2) Vascular dementia: (3) Acute on chronic respiratory failure with hypoxia and hypercapnia: (4) Dyspnea and respiratory abnormalities: (5) Acute on chronic diastolic heart failure with preserved ejection fraction: Plan -Patient felt to lack decision making capacity regarding disposition options -Discussed with Dr. Brown and [facility] -Further outpatient workup for suspected vascular dementia could be considered Risk Factors Assessment Do You Have Access To A Gun?: No Psych History Identifying Data 77 yo man with a history of chronic diastolic heart failure, COPD on home oxygen, depression, anxiety, type II diabetes and likely vascular dementia admitted for exacerbation of heart failure and respiratory difficulty. Psychiatry consulted for decision making capacity evaluation. Chief Complaint "There's no lung issues, what medical issues?". History of Present Illness Richard was seen for consult for decision making capacity evaluation. He has a long history of worsening chronic medical conditions with frequent inpatient hospitalizations and close outpatient cardiology follow-up. He was seen by palliative care service during this admission for discussion of goals of care and possibility for hospice which he and his family were not interested in at this time. Collateral gathered by palliative care team from his notable for Richard requiring increased support at home, decreased self-care (not showering), increased falls, frequent incontinence, and more confusion with periods of wandering off or becoming more agitated. His has hidden his wallet and care keys to keep him from driving or spending money recklessly. In the hospital he frequently makes requests of nursing, including ringing his call griffin repeatedly requesting reassurance though cannot clearly identify specific concerns except at times reports shortness of breath. He was not found to qualify for SNF level of care and he is declining testing coordinator halfway care but his is unsure that she can continue to support him at home. Decision making capacity was done with Richard this afternoon. He finished his lunch and was sitting up on the side of his bed. He was cooperative with the process and noting his mood was "ok" but "would be much better if I could go home". He is oriented to hospital, city, month, year. Can spell cat backward but not world. Can do serial 7s. Categorical animal fluency with 10 items in 30 seconds. Attended two years of college as highest educational achievement. He is contradictory throughout, making one statement and later saying the exact opposite. Also is frequently perseverative about the number 2, initially when describing his requirement of 2L of oxygen at home (though per documentation requires 5L at home) and later telling me that 2 is his goal for oxygen saturation on the pulse oxy on his finger. Reiterated his preference to return home. He was not able to describe his medical conditions, even though multiple providers have discussed this with him at length, telling me that he doesn't have any "lung issues", had a heart attack in the past, and in the hospital is being "mistakenly diagnosed and treated for diabetes". Later though tells me he has "COPD" but that "I don't take any medications for it at home they just give them to me here". Tells me if he goes home he could stop all his medications except his oxygen but later describes his putting his pills in a pill box that he will take. States he can attend to his own needs at home but cannot shop and confirms he doesn't drive anymore. Says he would call his if anything happened to him at home. can speak to potential benefit of [facility] placement facility as "I guess I could meet some new people". Past Psychiatric History Do You Have Access To A Gun?: No Allergies Allergy/AdvReac Type Severity Reaction Status Date / Time No Known Allergies Allergy Verified 11/23/22 22:58 Home Medications Medication Instructions Recorded Confirmed Type multivitamin (Multiple Vitamins 1 tab PO DAILY 05/21/20 11/23/22 History tablet) docusate sodium 100 mg capsule 100 mg PO BID 06/10/20 11/23/22 History melatonin 3 mg capsule 6 mg PO HS 05/26/22 11/23/22 History buspirone 10 mg tablet 10 mg PO TID PRN Anxiety 07/22/22 11/23/22 History Oxygen Home #1 ea 08/07/22 11/20/22 Rx atorvastatin 80 mg tablet 80 mg PO QPM #90 tabs 09/29/22 11/23/22 Rx escitalopram oxalate 20 mg tablet 20 mg PO DAILY 14 days #14 tabs 09/29/22 11/23/22 Rx pantoprazole 40 mg tablet,delayed 40 mg PO DAILY #90 tabs 09/29/22 11/23/22 Rx release albuterol sulfate 90 mcg/actuation 2 puff inhalation Q6H PRN 10/01/22 11/23/22 Rx aerosol inhaler Shortness Of Breath Or Wheezing #18 grams bumetanide 2 mg tablet 4 mg PO .DAILY@0600,1200 10/10/22 11/23/22 History metolazone 5 mg tablet 5 mg PO QAM #60 tabs 11/15/22 11/23/22 Rx sodium chloride 0.65 % nasal spray 1 spray NA TID #44 mL 11/15/22 11/23/22 Rx aerosol (Saline Mist) spironolactone 25 mg tablet 25 mg PO DAILY 90 days #180 tabs 11/15/22 11/23/22 Rx umeclidinium 62.5 mcg-vilanterol 1 ea inhalation DAILY #60 ea 11/15/22 11/23/22 Rx 25 mcg/actuation powdr for inhalation (Anoro Ellipta) fluticasone fur. 100 mcg-umeclid 1 inh inhalation DAILY 11/17/22 11/23/22 History 62.5 mcg-vilant 25 mcg inhalat.powder (Trelegy Ellipta) magnesium oxide 400 mg (241.3 mg 400 mg PO DAILY #7 tabs 11/17/22 11/23/22 Rx magnesium) tablet acetazolamide 500 mg 500 mg PO DAILY #30 caps 11/20/22 11/23/22 Rx capsule,extended release potassium chloride 20 mEq 40 meq PO BID #360 tabs 11/20/22 11/23/22 Rx tablet,extended release metoprolol tartrate 25 mg tablet 25 mg PO BID #60 tabs 11/30/22 Rx Personal History Living Arrangements: Home Beliefs That Will Affect Care: None Patient History Medical History Acute blood loss anemia Acute exacerbation of chronic obstructive pulmonary disease Acute on chronic diastolic heart failure with preserved ejection fraction Advanced care planning/counseling discussion Allergic rhinitis with postnasal drip Anxiety Aortic stenosis s/p TAVR 2019 ([facility] [address] [facility]) CAD (coronary artery disease) Carotid stenosis, bilateral Chronic cor pulmonale Chronic diastolic (congestive) heart failure Chronic heart failure with preserved ejection fraction Chronic respiratory failure with hypoxia Chronic respiratory failure with hypoxia and hypercapnia on home O2 5L rest; 8L with activity COPD (chronic obstructive pulmonary disease) Dyspnea and respiratory abnormalities Elevated troponin I level Generalized weakness GERD (gastroesophageal reflux disease) History of GI bleed Hypertension Iron deficiency anemia Palliative care encounter Pulmonary edema Pulmonary hypertension Tobacco use disorder Uremia Surgical History History of left-sided carotid endarterectomy 2014 S/P appendectomy Family History Father Hypertension Mother Hypotension Breast cancer Other No family history of adverse response to anesthesia No family history of bleeding disorder Social History Smoking Status: Former smoker Tobacco Type: Cigarettes packs per day: 1; Second Hand Exposure: No; Hx Alcohol Use: Yes Alcohol type: hard liquor Alcohol Intake Frequency: Monthly or Less Alcohol Intake Frequency Comment: 1 bottle of Manny Dupree a month Hx Substance Use: No Preferred Language: Marshallese Communication Ability: Effective Visual Impairment: No Limitations Cae Engineer Required: No Beliefs That Will Affect Care: None marital status: Current Living Situation: Spouse and Family Current Living Situation Comment: with and son current occupational status: retired Other Information That Helps Us Care for You: No Feels Safe at Home: Yes Safety Concerns: Feels Safe At This Time Assistive Devices: BiPap and Oxygen - Continuous Physical Exam Psychiatric: Orientation: alert, oriented to person, oriented to place and oriented to time Apperance: appropriately dressed and + disheveled Eye Contact: good eye contact Motor Behavior: no abnormal motor movements Speech: normal rate/rhythm/volume of speech Affect: euthymic affect Mood: no depressed mood and no anxious mood Thought Process: + looseness of associations and + perseveration Thought Content: + preoccupation Suicidal Thoughts: denies suicidal thoughts Homicidal Thoughts: denies homicidal thoughts Hallucinations: no auditory hallucinations and no visual hallucinations Cognition: remote memory grossly intact and language grossly intact; + recent memory not intact (cannot recall recent discussions, could not participate in formalized asses) and + attention not intact Insight: + impaired insight Judgement: + impaired judgement Vital Signs (Past 24 Hours): Last Vital Signs Temp 36.4 C L 11/30/22 11:18 Pulse 84 11/30/22 11:18 Resp 18 11/30/22 11:18 BP 113/56 L 11/30/22 11:18 Pulse Ox 90 11/30/22 11:18 O2 Del Method 11/30/22 11:18 O2 Flow Rate 3 11/30/22 11:18 Review of Systems All systems reviewed & are unremarkable except as noted in HPI & below Results & Data (PSY) Medications Administered Acetazolamide (Acetazolamide 500 Mg Capcr) 500 mg PO DAILY MARZENA Stop: 12/24/22 08:59 Last Admin: 11/24/22 08:46 Dose: 500 mg Documented By: ANIBAL Albuterol (Albut/Ipratrop 3mg/0.5mg Neb 3 Ml Vial) 3 ml NEB Q2H PRN PRN Reason: Shortness of Breath/Wheezing Stop: 12/24/22 02:35 Last Admin: 11/30/22 10:32 Dose: 3 ml Documented By: Admin: 11/29/22 14:43 Dose: 3 ml Documented By: Admin: 11/29/22 10:32 Dose: 3 ml Documented By: Admin: 11/28/22 15:41 Dose: 3 ml Documented By: Admin: 11/25/22 21:17 Dose: 3 ml Documented By: Admin: 11/25/22 11:16 Dose: 3 ml Documented By: Admin: 11/25/22 07:16 Dose: 3 ml Documented By: Admin: 11/24/22 18:42 Dose: 3 ml Documented By: Admin: 11/24/22 10:51 Dose: 3 ml Documented By: LORI Atorvastatin Calcium (Atorvastatin 40 Mg Tab) 80 mg PO QPM MARZENA Stop: 12/24/22 20:59 Last Admin: 11/29/22 22:06 Dose: 80 mg Documented By: Admin: 11/28/22 21:33 Dose: 80 mg Documented By: Admin: 11/27/22 22:23 Dose: 80 mg Documented By: Admin: 11/26/22 20:33 Dose: 80 mg Documented By: Admin: 11/25/22 20:44 Dose: 80 mg Documented By: Admin: 11/24/22 20:35 Dose: 80 mg Documented By: CHRISTA Buspirone HCl (Buspirone 5 Mg Tab) 10 mg PO TID MARZENA Stop: 12/25/22 13:59 Last Admin: 11/30/22 14:56 Dose: 10 mg Documented By: Admin: 11/30/22 08:35 Dose: 10 mg Documented By: Admin: 11/29/22 22:06 Dose: 10 mg Documented By: Admin: 11/29/22 13:37 Dose: 10 mg Documented By: Admin: 11/29/22 08:53 Dose: 10 mg Documented By: Admin: 11/28/22 21:32 Dose: 10 mg Documented By: Admin: 11/28/22 12:43 Dose: 10 mg Documented By: Admin: 11/28/22 08:33 Dose: 10 mg Documented By: Admin: 11/27/22 22:22 Dose: 10 mg Documented By: Admin: 11/27/22 14:52 Dose: 10 mg Documented By: Admin: 11/27/22 08:50 Dose: 10 mg Documented By: Admin: 11/26/22 20:33 Dose: 10 mg Documented By: Admin: 11/26/22 15:14 Dose: 10 mg Documented By: Admin: 11/26/22 08:05 Dose: 10 mg Documented By: Admin: 11/25/22 20:45 Dose: 10 mg Documented By: Admin: 11/25/22 13:13 Dose: 10 mg Documented By: ANIBAL Enoxaparin Sodium (Enoxaparin Inj 40 Mg/0.4 Ml Syr) 40 mg SQ QAM MARZENA Stop: 12/24/22 08:59 Last Admin: 11/30/22 08:34 Dose: 40 mg Documented By: Admin: 11/29/22 08:53 Dose: 40 mg Documented By: Admin: 11/28/22 08:32 Dose: 40 mg Documented By: Admin: 11/27/22 08:52 Dose: 40 mg Documented By: Admin: 11/26/22 08:07 Dose: 40 mg Documented By: Admin: 11/25/22 08:43 Dose: 40 mg Documented By: Admin: 11/24/22 08:47 Dose: 40 mg Documented By: ANIBAL Escitalopram Oxalate (Escitalopram Oxalate 20 Mg Tab) 20 mg PO DAILY MARZENA Stop: 12/24/22 08:59 Last Admin: 11/30/22 08:35 Dose: 20 mg Documented By: Admin: 11/29/22 08:53 Dose: 20 mg Documented By: Admin: 11/28/22 08:34 Dose: 20 mg Documented By: Admin: 11/27/22 08:50 Dose: 20 mg Documented By: Admin: 11/26/22 08:06 Dose: 20 mg Documented By: Admin: 11/25/22 08:42 Dose: 20 mg Documented By: Admin: 11/24/22 08:46 Dose: 20 mg Documented By: ANIBAL Fluticasone Furoate (Fluticasone Furoate 100mcg 14 Puffs/Inhaler) 1 puffs INH DAILY MARZENA Stop: 12/24/22 08:59 Last Admin: 11/30/22 08:34 Dose: 1 puffs Documented By: Admin: 11/29/22 08:52 Dose: 1 puffs Documented By: Admin: 11/28/22 08:32 Dose: 1 puffs Documented By: Admin: 11/27/22 08:53 Dose: 1 puffs Documented By: Admin: 11/26/22 08:05 Dose: 1 puffs Documented By: Admin: 11/25/22 08:43 Dose: 1 puffs Documented By: Admin: 11/24/22 08:45 Dose: 1 puffs Documented By: ANIBAL Bumetanide 4 mg/ Syringe 16 mls @ 4 mls/min IV BID@0900,2000 [facility] Stop: 12/25/22 19:59 Last Admin: 11/27/22 22:48 Dose: 4 mls/min Documented By: Admin: 11/27/22 08:50 Dose: 4 mls/min Documented By: Admin: 11/26/22 19:06 Dose: 4 mls/min Documented By: Admin: 11/26/22 08:06 Dose: 4 mls/min Documented By: Admin: 11/25/22 19:20 Dose: 4 mls/min Documented By: EDIL Bumetanide 2 mg/ Syringe 8 mls @ 4 mls/min IV DAILY@1400 [facility] Stop: 12/25/22 13:59 Last Admin: 11/27/22 14:52 Dose: 4 mls/min Documented By: Admin: 11/26/22 16:09 Dose: 4 mls/min Documented By: Admin: 11/25/22 15:36 Dose: 4 mls/min Documented By: ANIBAL Insulin Aspart (Insulin Aspart Per Unit) 0 units SC ACHS [facility] Stop: 12/24/22 08:14 Last Admin: 11/30/22 12:35 Dose: 1 units Documented By: TAVO Co-signed By: NELIA Admin: 11/30/22 08:33 Dose: 10 units Documented By: JAYCOB Co-signed By: JACOB Admin: 11/29/22 22:00 Dose: Not Given Documented By: Admin: 11/29/22 17:30 Dose: 11 units Documented By: JAYCOB Co-signed By: MARYAN Admin: 11/29/22 12:32 Dose: 4 units Documented By: JAYCOB Co-signed By: ANA Admin: 11/29/22 08:52 Dose: 9 units Documented By: JAYCOB Co-signed By: TAVO Admin: 11/28/22 21:22 Dose: Not Given Documented By: Admin: 11/28/22 17:36 Dose: 10 units Documented By: JAYCOB Co-signed By: ROSENDO Admin: 11/28/22 12:42 Dose: 7 units Documented By: JAYCOB Co-signed By: KEVIN Admin: 11/28/22 08:30 Dose: 5 units Documented By: JAYCOB Co-signed By: KEVIN Admin: 11/27/22 22:25 Dose: 5 units Documented By: NANCI Co-signed By: IRMA Admin: 11/27/22 17:20 Dose: 6 units Documented By: ANA Co-signed By: IGNACIO Admin: 11/27/22 12:38 Dose: 5 units Documented By: ANA Co-signed By: JAYCOB Admin: 11/27/22 08:26 Dose: 4 units Documented By: ANA Co-signed By: IGNACIO Admin: 11/26/22 20:33 Dose: 4 units Documented By: EDIL Co-signed By: GAYATRI Admin: 11/26/22 17:08 Dose: 5 units Documented By: NELIA Co-signed By: IGNACIO Admin: 11/26/22 11:58 Dose: 3 units Documented By: NELIA Co-signed By: BRENDA Admin: 11/26/22 08:01 Dose: 6 units Documented By: NELIA Co-signed By: CHASTITY Admin: 11/25/22 20:49 Dose: Not Given Documented By: EDIL Co-signed By: NABIL Admin: 11/25/22 17:50 Dose: 4 units Documented By: ANIBAL Co-signed By: [id number] Admin: 11/25/22 12:20 Dose: 4 units Documented By: ANIBAL Co-signed By: JAYCOB Admin: 11/25/22 08:38 Dose: 4 units Documented By: ANIBAL Co-signed By: TAVO Admin: 11/24/22 20:35 Dose: 2 units Documented By: CHRISTA Co-signed By: BRISEIDA Admin: 11/24/22 17:30 Dose: 9 units Documented By: ANIBAL Co-signed By: CB Admin: 11/24/22 12:27 Dose: 4 units Documented By: ANIBAL Co-signed By: [id number] Admin: 11/24/22 08:51 Dose: 16 units Documented By: ANIBAL Co-signed By: RRR Insulin Glargine (Lantus Per Unit Charge) 14 units SQ QAM [facility] Stop: 12/28/22 08:59 Last Admin: 11/30/22 08:32 Dose: 14 units Documented By: JAYCOB Co-signed By: JACOB Admin: 11/29/22 09:53 Dose: 14 units Documented By: JAYCOB Co-signed By: KEVIN Admin: 11/28/22 08:30 Dose: 14 units Documented By: JAYCOB Co-signed By: KEVIN Melatonin (Melatonin 3 Mg Tab) 3 mg PO HS [facility] Stop: 12/29/22 20:59 Last Admin: 11/29/22 22:06 Dose: 3 mg Documented By: NANCI Metolazone (Metolazone 5 Mg Tablet) 5 mg PO DAILY@0830 [facility] Stop: 12/25/22 08:29 Last Admin: 11/27/22 08:50 Dose: 5 mg Documented By: Admin: 11/26/22 08:06 Dose: 5 mg Documented By: Admin: 11/25/22 08:42 Dose: 5 mg Documented By: ANIBAL Metoprolol Tartrate (Metoprolol Tartrate 25 Mg Tab) 25 mg PO BID [facility] Stop: 12/28/22 20:59 Last Admin: 11/30/22 08:35 Dose: 25 mg Documented By: Admin: 11/29/22 22:06 Dose: 25 mg Documented By: Admin: 11/29/22 08:53 Dose: 25 mg Documented By: Admin: 11/28/22 21:31 Dose: 25 mg Documented By: JEANNIE Potassium Chloride (Potassium Chloride Crtab 20 Meq Tabcr) 20 meq PO BID MARZENA Stop: 12/27/22 20:59 Last Admin: 11/30/22 08:35 Dose: 20 meq Documented By: Admin: 11/29/22 22:06 Dose: 20 meq Documented By: Admin: 11/29/22 08:53 Dose: 20 meq Documented By: Admin: 11/28/22 21:33 Dose: 20 meq Documented By: Admin: 11/28/22 08:33 Dose: 20 meq Documented By: Admin: 11/27/22 22:23 Dose: 20 meq Documented By: NANCI Spironolactone (Spironolactone 25 Mg Tab) 25 mg PO DAILY MARZENA Stop: 12/24/22 08:59 Last Admin: 11/27/22 08:52 Dose: 25 mg Documented By: Admin: 11/26/22 08:06 Dose: 25 mg Documented By: Admin: 11/25/22 08:42 Dose: 25 mg Documented By: Admin: 11/24/22 08:46 Dose: 25 mg Documented By: ANIBAL Umeclidinium/Vilanterol (Umeclidinium/Vilanterol 62.5/25mcg 7 Puffs/Inhaler) 1 puffs INH DAILY [facility] Stop: 12/24/22 08:59 Last Admin: 11/30/22 08:33 Dose: 1 puffs Documented By: Admin: 11/29/22 08:51 Dose: 1 puffs Documented By: Admin: 11/28/22 08:33 Dose: 1 puffs Documented By: Admin: 11/27/22 08:53 Dose: 1 puffs Documented By: Admin: 11/26/22 08:07 Dose: 1 puffs Documented By: Admin: 11/25/22 08:43 Dose: 1 puffs Documented By: Admin: 11/24/22 08:45 Dose: 1 puffs Documented By: ANIBAL Coding Level of Care Code INP/OBS CONSULT LVL 3, 45 MIN Diagnoses Acute encephalopathy G93.40 Vascular dementia F01.50 Acute on chronic respiratory failure with hypoxia and hypercapnia J96.21; J96.22 Dyspnea and respiratory abnormalities R06.00; R06.89 Acute on chronic diastolic heart failure with preserved ejection fraction I50.33
--- NOTE | 2022-11-30 15:46 | Discharge Summary ---
Date of Service date of admission - November 23, 2022 date of discharge - November 30, 2022 Admission HPI Per Admitting Provider Richard is a 77 year old male w/ PmHx of chronic diastolic heart failure, COPD, aortic stenosis s/p TAVR 2019, chronic respiratory failure on home 5-6L home O2, carotid artery stenosis s/p CEA, tobacco use, history of GI bleed secondary to AVM, HTN who presented to the emergency department with persistent shortness of breath. Patient states earlier today in the morning after he woke up he had some mild shortness of breath that he usually has when he gets up in the morning. He states that usually in the mornings after he walks to the toilet to take a break his shortness of breath will get better and dissipate. However this morning he had persistence of his shortness of breath even past this and into the day. The poor improvement caused him to worry and come into the ED to get checked out. He states that he has gained some weight recently since last discharge. He followed up with Smita Herrera 3 days ago and was hypervolemic on exam, started on 3 days of acetazolamide in addition to his bumex, spironolactone, metolazone. He says his base weight is around 183lbs however his weights have been increased recently. He was discharged 11/15 and states when he went home for Petey he had Petey dinner with the usual [employer] food including butter turkey that was fried. He denies any chest pain, fevers, chills, diarrhea, nausea, vomiting. He states he has been coughing around his usual and has been occasionally coughing up clear and at times mildly yellow sputum. In the ED he was given duoneb treatment x1, bumex 4mg IV x1, Mucinex 1200mg, methylprednisolone 125mg x1, KCl 40meq x2. CXR showed evidence of b/l lower lung airspace opacities, mild b/l pleural effusions. WBC 7.37, K 3.0, CO2 44, BUN/Creat 49/1.31, Trop 26.2, BNP 216, procal <0.05, covid/rsv/flu negative. Principal Diagnosis 1. acute/chronic hypoxic/hypercarbic respiratory failure 2. acute/chronic diastolic CHF 3. COPD 4. paroxysmal atrial fibrillation Discharge Exam gen - NAD, lying comfortably in bed neck - no JVD mouth - MMM heart - RRR, s1 s2, no murmur lungs - R basilar rales only; left lung clear; no wheezing; no increased work of breathing abd - soft NT ND BS+ skin - venous stasis changes b/l shins ext - no edema b/l, pulses 2+ b/l Discharge Data Allergies Allergy/AdvReac Type Severity Reaction Status Date / Time No Known Allergies Allergy Verified 11/23/22 22:58 Consultations Palliative Care Psychiatry PT, OT Ordered Studies Chest X-Ray 11/23/22 17:36 XR chest 1V portable CLINICAL HISTORY: SOB TECHNIQUE: Single frontal radiograph of the chest was obtained. Comparison: Comparison is made to chest radiograph 11/09/2022 FINDINGS: No lines and tubes are seen. Cardiomegaly is noted. The aortic arch is calcified. Reticular interstitial opacities are seen. Bilateral lower lung airspace opacities are seen. Mild bilateral pleural effusions are seen. IMPRESSION: 1. Bilateral lower lung predominant airspace opacities which may represent atelectasis, pneumonia, and/or aspiration. Cardiomegaly. 2. Mild bilateral pleural effusions are seen. ACT 112: Negative or not required by law. Electronically signed by: Thomas Marin M.D. 11/23/2022 5:59 PM Chest X-Ray 11/26/22 07:30 SINGLE VIEW CHEST CLINICAL HISTORY: Pulmonary edema. FINDINGS: An AP, portable, upright chest radiograph is compared to study dated 11/23/2022. Correlation is made with chest CT dated 11/12/2022. The examination is degraded by portable technique and apical lordotic positioning. There is evidence of previous cardiac valve surgery. The heart is enlarged noting atherosclerotic calcification of the thoracic aorta. Pulmonary vascular congestion persists. There are small pleural effusions with dependent consolidation. Emphysema is again noted. Foci of parenchymal scarring are seen throughout both lungs. No pneumothorax is seen. The skeletal structures are osteopenic. The bony thorax is grossly intact. IMPRESSION: 1. Cardiomegaly and emphysema. Pulmonary vascular congestion persists and is similar to previous. 2. Small pleural effusions with dependent consolidation. ACT 112: Negative or not required by law. Electronically signed by: Arun Christensen M.D. 11/26/2022 12:14 PM Chest X-Ray 11/28/22 07:30 XR chest 2V PA/lateral HISTORY: 77 years-old Male pulm edema, interval change acute shortness of breath COMPARISON: Chest radiograph 11/26/2022 TECHNIQUE: PA and lateral views of the chest FINDINGS: Cardiac silhouette is enlarged. Aortic valvular endograft. Atherosclerosis of the aorta. No pneumothorax. Small layering pleural effusions with bibasilar opac ities, similar to prior. Edema. IMPRESSION: 1. Cardiomegaly with decreased pulmonary vascular congestion. 2. Unchanged small pleural effusions with bibasilar opacities. 3. Emphysema. ACT 112: Negative or not required by law. The above report was generated using voice recognition software. It may contain grammatical, syntax or spelling errors. Electronically signed by: Volodymyr Ferrara M.D. 11/28/2022 10:[address] 11/28/22 07:30 CT head/brain wo con CLINICAL HISTORY: 77 years-old Male with confusion, ?falls. Acutely altered mental status. TECHNIQUE: Multiple axial CT images of the head were obtained without contrast. A dose lowering technique was utilized adhering to the principles of ALARA. CT DOSE: 2963.40 mGy.cm COMPARISON: Head CT 04/14/2022 FINDINGS: No acute intracranial hemorrhage, midline shift, intracranial mass, hydrocephalus, territorial ischemia or abnormal extra-axial collection. Age- related involutional changes with chronic microvascular ischemic disease. The study is motion degraded. The calvarium is intact. Minimal mucosal thickening of the paranasal sinuses. The mastoid air cells are clear. Prior bilateral lens repair. IMPRESSION: No acute intracranial abnormality. ACT 112: Negative or not required by law. The above report was generated using voice recognition software. It may contain grammatical, syntax or spelling errors. Electronically signed by: Volodymyr Ferrara M.D. 11/28/2022 10:25 AM Diabetes Follow up Diabetes Follow-up Needed for Newly Diagnosed Diabetes Hospital Course (1) Acute on chronic diastolic heart failure with preserved ejection fraction: Patient presented with diuretic-refractory chronic diastolic CHF. He had been taking triple diuretics - occasionally 4 - at home to maintain euvolemia without success (bumex, metazolone, aldactone, +/- diamox). Follows with Smita GILMAN in CHF clinic. Noncompliance with BiPAP at for ABDIEL, diet, etc have all been culprits in his decompensated CHF. The patient was aggressively diuresed during his hospital stay using a combination of IV bumex TID, aldactone, metolazone, and late in the stay - diamox. He had clinical and radiographic improvement in his symptoms. LE edema resolved. O2 requirement actually decreased below his previous home O2 amounts. By report baseline dry weight is 185-190 pounds per history. We did not reach this dry weight, but later in his stay his BUN and Cr agnes significantly suggesting intravascular volume depletion. Again diamox was given for contraction alkalosis. At discharge recommended the following - * bumex was INCREASED to 4mg qam; 2mg each day at noon; and 4mg late afternoon/early evening * aldactone 25mg qam * metolazone 5mg qam prn for weight gains of more than 3 pounds in 1-2 days He will f/u with Smita Herrera in the [facility] for ongoing treatment. Palliative care was consulted to discuss goals of care in light of end-stage lung disease and refractory chronic diastolic CHF. Neither the patient nor his wanted to pursue hospice at this time. Of note - the patient had episodes of a.fib/a.flutter while here. Rates at rest while in a.fib/a.flutter were often >100. Metoprolol 25mg BID was added. He converted back to NSR about 24 hours prior to discharge. He could be having runs of a.fib/a.flutter at home contributing to his ongoing decompensation. Ms Herrera was made aware of his PAF. (2) Acute on chronic respiratory failure with hypoxia and hypercapnia: Patient with tachypnea and increased work of breathing at ER presentation. This improved with bronchodilators, diuresis, etc. VBG obtained earlier in the admission - mild respiratory acidosis with hypercarbia noted. Thus, acute component was 2nd to decompensated CHF in setting of severe COPD/ABDIEL/etc. Like prior hospital stays he refused the use of BIPAP at night-time. 2-step ambulatory O2 test was performed just prior to discharge with the following recommendations - * 4 liters NC O2 at rest/sleep * 6 liters NC O2 with ambulation (3) Atrial fibrillation: The patient had runs of PAF and a.flutter during the stay. He does have a prior history of PAF. Rates at rest were often 100-110. He is not on anticoagulation due to refractory Fe deficiency and recurrent occult GI bleeding. Due to his recurrent CHF, a.fib/flutter, etc --> started metoprolol 25mg BID. Patient converted back to NSR about 24 hours prior to discharge. (4) COPD with emphysema: advanced, with large O2 requirement at baseline (5 L at rest). cont inhalers, O2, etc. 2-step ambulatory O2 test showed he needed 4 liters NC O2 at rest and 6 liters with activity. (5) Goals of care, counseling/discussion: Patient was seen by the palliative care team. The palliative care team also spoke with his by phone. Goals of care were discussed. The patient nor his were ready to initiate hospice at this time. (6) Iron deficiency anemia: History of Fe deficiency. 2nd to occult GI bleeding. AVMs? Other cause? Has had endoscopic eval in the past without source discovered by way of EGD or colonoscopy. Fortunately CBCs were stable throughout his stay. Discharge hemoglobin was 9.5. (7) Dyslipidemia: cont statin agent (8) Anemia: 2nd Fe def & chronic GI blood losses stable H/H while here as noted above (9) Anxiety and depression: cont lexapro cont buspar 10mg TID prn (10) Hypertension: controlled throughout the stay (11) Aortic stenosis: s/p TAVR in the past (12) Pulmonary hypertension: 2nd to COPD (13) Diabetes mellitus type 2, uncontrolled: Hba1c 7.4% Required use of lantus + novolog whil here. He had had a large dose of IV steroid in the ER which likely contributed to some of the hyperglycemia early in his stay. I was concerned about the safety of using insulin at home post-discharge. Further, I was also concerned that he would not check sugars at home. Thus, insulin nor oral medications were prescribed at discharge. He will need close f/u post-discharge. (14) Acute encephalopathy: Patient had intermittent confusion during the stay. I suspect it was due to high CO2 levels, ativan use, etc. Ativan was d/c. Towards the latter portion of the stay his mentation improved some but he still lacked insight into his medical problems and demonstrated difficulty understanding basic principles of his care. I am concerned that he may have chronic, underlying mild cognitive impairment as well. I consulted psychiatry to assess his capacity. Based on their evaluation it was felt that the patient does not possess medical decision-making capacity at this time. (15) Gross hematuria: 1 episode on 11/27/22 blood noted on u/a and microscopy but urine cx negative no gross hematuria since 11/27/22 CT a/p 06/2022 without urinary tract pathology (stones, etc) follow for recurrence Total Time Total Time Spent Total Time Spent (In Minutes): 45 Discharge Plan Discharge Items Patient Disposition: Home - Home Health Services Reason For Visit: CHF EXACERBATION Discharge Diagnosis: 1. Congestive Heart Failure Exacerbation (fluid build-up in the lungs) 2. New diagnosis of type 2 diabetes Activity: Resume your previous activity Non-emergency contact: Primary Care Provider and [employer] Supervisor Call non-emergency contact if: you have any medication questions and your symptoms worsen Follow-up/Referrals: Suki Herrera PA-C [Physician Hot Mix Operator] - 12/04/22 11:30 am Eric Westbrook, [Primary Care Provider] - (5-7 days ) Diet: Carb Consistent or DM2 and Heart Healthy Fluids: 1800ml (7 cups) Addtl Attending Provider Instructions: Mr Lobo, You were treated for congestive heart failure exacerbation. With an exacerbation you take on excess fluid weight which deposits in the lungs, abdomen, and your legs. The excess fluid makes it hard to breathe. During the stay we had nice success getting the excess water off. Recommendations - 1. Diuretics (water pills) - please do the following -- * bumetanide 2mg tablets -- take 2 tablets every morning at 600am; 1 tablet at about noon-time; and 2 tablets about 600pm * start your bumetanide back TOMORROW MORNING, 12/01/22 * spironolactone 25mg once daily each morning -- start this TOMORROW MORNING, 12/01/22 * STOP the acetazolamide water pill for now * metolazone 5mg -- take NEEDED only. Specifically, only take this if your morning weight rises more than 3 pounds in 1-2 days. * if you have to take metolazone take 5mg x 1 about 30 minutes prior to your MORNING bumetanide for best results 2. Additional heart medication -- metoprolol 25mg twice daily every day. Take your first dose TONIGHT, 11/30/22. 3. Check your weight every morning on the same scale as soon as you wake up. Write your weights down in a notebook to keep track. 4. You have become a type 2 diabetic. Your hemoglobin a1c, a blood test for diabetes, came back elevated over 7%. At this time I am not recommending medication or even checking your sugars. Hopefully you can control your diabetes with diet. Please see handout on the "a1c test." Follow-up with your family doctor for this issue. 5. Limit total fluid intake to no more than 1800cc in 24 hours. 6. Limit salt intake to no more than 2000mg in 24 hours. 7. OXYGEN - use 4 liters at rest/sleep; use 6 liters with any activity. This is based on a walking oxygen test completed on day of discharge. Follow-up - see separate section Return To [facility] if - * you have worsening shortness of breath * your oxygen levels on your finger with a pulse oximeter are consistently less than 88% * you have chest pains * any other concerns Best wishes and please continue to feel better, Dr Brown Pending Studies at Discharge: No Stand-Alone Forms: [facility], Smoking Cessation Medications and DC Order Prescriptions: New metoprolol tartrate 25 mg Tablet 25 mg PO BID Qty: 60 2RF Continued melatonin 3 mg capsule 6 mg PO HS magnesium oxide 400 mg (241.3 mg magnesium) tablet 400 mg PO DAILY Qty: 7 0RF potassium chloride 20 mEq tablet extended release 40 meq PO BID Qty: 360 3RF docusate sodium 100 mg capsule 100 mg PO BID multivitamin [Multiple Vitamins] Tablet 1 tab PO DAILY escitalopram oxalate 20 mg tablet 20 mg PO DAILY 14 Days Qty: 14 0RF pantoprazole 40 mg tablet,delayed release (DR/EC) 40 mg PO DAILY Qty: 90 3RF atorvastatin 80 mg tablet 80 mg PO QPM Qty: 90 3RF Trelegy Ellipta 100-62.5-25 mcg blister with device 1 inh inhalation DAILY albuterol sulfate 90 mcg/actuation HFA aerosol inhaler 2 puff inhalation Q6H PRN (Reason: Shortness Of Breath Or Wheezing) Qty: 18 3RF Saline Mist 0.65 % Aerosol,[place] 1 spray NA TID Qty: 44 0RF Anoro Ellipta 62.5-25 mcg/actuation Blister With Device 1 ea inhalation DAILY Qty: 60 0RF spironolactone 25 mg tablet 25 mg PO DAILY 90 Days Qty: 180 3RF buspirone 10 mg tablet 10 mg PO TID PRN (Reason: Anxiety) Changed bumetanide 2 mg tablet 4 mg PO DIRECTED Qty: 100 0RF Rx Instructions: 2 tablet in the AM @ 0600; 1 tab @ noon-time; 2 tabs about 5-6pm at night. metolazone 5 mg Tablet 5 mg PO QAM PRN (Reason: weight gain of more than 3 pounds in 1-2 days) Qty: 60 0RF Rx Instructions: take about 30 minutes prior to your MORNING BUMETANIDE (DME) Oxygen Home Liters Per Minute See Rx Instructions .ROUTE .MEDSUPPLY Qty: 1 0RF Rx Instructions: 4 L NC O2 at rest/sleep. 6 L NC O2 with activity/ambulation. Discontinued acetazolamide 500 mg capsule, extended release 500 mg PO DAILY Qty: 30 0RF Rx Instructions: Take for 3-4 days at a time for worsening symptoms. Discharge Orders: Discharge Order (Routine); Ordered 11/30/22 Ordered By: Miguel Garcia/Other Patient Handouts: Managing Diabetes: The A1C Test, Type 2 Diabetes Admission Data Admit Date/Time: 11/23/22 23:13 Attending Provider: Miguel Brown Admit Provider: Gamaliel Aguilera Primary Care Provider: Eric Westbrook Other Providers: Liang Loomis ; Chikis Fu ; Gloria,[facility] ; Maria Antonia Oseguera ; Shayy Vaughan Other Interventions: Discharge Summary Assessment (RN) Last Done: 11/30/22 16:27 Coding Level of Care Code HOSP INP/OBS DISCH >30 MIN Diagnoses Acute on chronic diastolic heart failure with preserved ejection fraction I50.33 Acute on chronic respiratory failure with hypoxia and hypercapnia J96.21; J96.22 Atrial fibrillation I48.91 Atrial fibrillation type: unspecified COPD with emphysema J43.9 Goals of care, counseling/discussion Z71.89 Iron deficiency anemia D50.9 Dyslipidemia E78.5 Anemia D64.9 Anemia type: unspecified type Anxiety and depression F41.9; F32.A Hypertension I10 Aortic stenosis I35.0 Cardiac valve disease etiology: etiology unspecified Pulmonary hypertension I27.20 Diabetes mellitus type 2, uncontrolled Acute encephalopathy G93.40 Gross hematuria R31.0
== END 2022-11-30 17:00 | disposition home health service (06) | DRG 291 ==
LOC: ED 16:57 → 2N 23:13 → SUATTDRO 23:13 → 2N 11-24 02:04
DX: F01.53 Vascular dementia, unspecified severity, with mood disturbance; I48.0 Paroxysmal atrial fibrillation; D50.0 Iron deficiency anemia secondary to blood loss (chronic); E78.5 Hyperlipidemia, unspecified; D50.9 Iron deficiency anemia, unspecified; Z99.81 Dependence on supplemental oxygen; J96.21 Acute and chronic respiratory failure with hypoxia; J44.1 Chronic obstructive pulmonary disease with (acute) exacerbation; F41.8 Other specified anxiety disorders; Z91.199 Patient's noncompliance with other medical treatment and regimen due to unspecified reason; I24.8 Other forms of acute ischemic heart disease; I11.0 Hypertensive heart disease with heart failure; E87.6 Hypokalemia; Y92.009 Unspecified place in unspecified non-institutional (private) residence as the place of occurrence of the external cause; I50.33 Acute on chronic diastolic (congestive) heart failure; G47.33 Obstructive sleep apnea (adult) (pediatric); T50.2X5A Adverse effect of carbonic-anhydrase inhibitors, benzothiadiazides and other diuretics, initial encounter; K92.2 Gastrointestinal hemorrhage, unspecified; Z95.2 Presence of prosthetic heart valve; G93.40 Encephalopathy, unspecified; J96.22 Acute and chronic respiratory failure with hypercapnia

== ENCOUNTER 2022-12-02 19:21 | Inpatient (IN) ==
[2022-12-02] MEDS ORDERED: methylPREDNISolone 125 MG/2 ML VIAL IV STA (19:54)
[2022-12-02] MEDS ORDERED: ALBUT/IPRATROP 3MG/0.5MG NEB 3 ML VIAL NEB STA (19:54)
--- NOTE | 2022-12-02 20:06 | Emergency Department Note ---
Impression & Plan SOB (shortness of breath), COPD with emphysema, Hypoxia ED Provider Note INFORMANT: Patient and EMS ED PROVIDER(S): Mason Lares MD CHIEF COMPLAINT: Shortness of breath PLAN: Disposition: Admitted Condition: Good Outpatient prescription management: none Referral: None MEDICAL DECISION MAKING: Patient presented because of shortness of breath. He was hypoxic at home on his oxygen with minimal exertion for EMS. On arrival I did evaluate the patient. He needed to urinate and was provided urinal. The process of him standing up, sitting back down to the stretcher and then moving to the hospital later because his O2 saturations on 4 L to drop to 74%. He was bumped up to 6 L and rested. With deep breathing he was able to bring his O2 saturations to an adequate level above 90%. A DuoNeb and Solu-Medrol was ordered. Chest x-ray reveals chronic changes without acute infiltrate or pneumothorax. His ECG showed a sinus rhythm with a nonspecific intraventricular conduction delay. No acute ischemia noted. His CBC showed a mild anemia. Chemistry panel revealed some mild dehydration. His calcium and magnesium levels were minimally elevated. Troponin was mildly elevated as well. Given the patient's history and current issues further management in the hospital will be necessary. [facility] Case was discussed with Dr. Vazquez. Diagnostics reviewed. Patient was evaluated in the ER and admitted for further management. After review of the information above and other included data, I feel the davonte palumbo requires further management and admission.. Triage Nursing notes reviewed and agree them. Vital Signs: reviewed and remarkable for hypoxia Prior /Outside records reviewed: none Differential diagnosis: Reactive airway disease, pneumonia, pneumothorax, COPD, CHF, infections, cardiac ischemia, pulmonary embolism, musculoskeletal, gastrointestinal, as well as other pathologies. Diagnostics, as interpreted by me: ECG: Twelve-lead ECG reveals a sinus rhythm at 71 bpm. First-degree AV block and left axis deviation. Nonspecific intraventricular conduction delay present. Septal Q waves present. Cardiac Monitoring: Cardiac monitoring ordered by me: The patient was placed on continuous cardiac monitoring and observed. It revealed a normal sinus rhythm at 78 beats per minute without ectopy or evidence of dysrhythmia. Medical decision rules: none Imaging studies: Chest x-ray as noted above. I refer you to the EMR for further details. HPI: The patient is a 77 year old male who presents to the Emergency Room with complaints of shortness of breath. This started to worsen tonight and is noted to be present since the time of discharge from the hospital over a week ago. The patient also notes the following associated symptoms, dyspnea on exertion, lower extremity swelling, weakness. The patient has been using his oxygen for relieving factors. Current pain is rated as 0/10. Patient was noted to be hypoxic on 4 L with minimal exertion for EMS. Upon arrival to the ER on 4 L with simple standing to urinate and transfer to the bed the patient dipped down to 74%. Bumping the patient up to 6 L and rest in the bed patient saturations improved to 91%. pt denies LOC, headache, fevers, chills, diaphoresis, visual changes, neck pain, chest pain, nausea, vomiting, abdominal pain, back pain, melena, hematochezia, urinary symptoms, numbness, lymphadenopathy, rash, or other complaints. PAST MEDICAL HISTORY: See Below, COPD, CHF, diabetes PAST SURGICAL HISTORY: See Below, SOCIAL HISTORY: See Below, former smoker HOME MEDICATIONS: See Below ALLERGIES: See Below VITALS: See Below PHYSICAL EXAMINATION: GENERAL: Awake, alert, dyspneic-appearing, in no distress HENT: Normocephalic, atraumatic. Oropharynx unremarkable. EYES: Normal conjunctiva. Sclera non-icteric. NECK: Inspection normal. Non-tender. Supple. No nuchal rigidity. FROM. No masses. RESPIRATORY: Few scattered wheezes. No rales. Increased respiratory effort. CARDIAC: Normal rate. Normal rhythm. No murmurs. No rubs. Extremities warm and well perfused. Pulses equal. No JVD. GI: Soft, non-distended. No tenderness to palpation. No rebound or guarding. No masses. RECTAL: Deferred. MUSCULOSKELETAL: Atraumatic. Chest examination reveals no tenderness. The back is symmetrical on inspection without obvious abnormality. There is no CVA ten derness to palpation. No joint edema. LOWER EXTREMITIES: Calves are equal size bilaterally and non-tender. 2+ edema. Minimal venous congestion discoloration. NEURO: Normal sensorium. No sensory or motor deficits noted. SKIN: No rash or jaundice noted. Past Med/Surg History Medical History Acute blood loss anemia Acute exacerbation of chronic obstructive pulmonary disease Acute on chronic diastolic heart failure with preserved ejection fraction Advanced care planning/counseling discussion Allergic rhinitis with postnasal drip Anxiety Aortic stenosis s/p TAVR 2019 ([facility]) CAD (coronary artery disease) Carotid stenosis, bilateral Chronic cor pulmonale Chronic diastolic (congestive) heart failure Chronic heart failure with preserved ejection fraction Chronic respiratory failure with hypoxia Chronic respiratory failure with hypoxia and hypercapnia on home O2 5L rest; 8L with activity COPD (chronic obstructive pulmonary disease) Dyspnea and respiratory abnormalities Elevated troponin I level Generalized weakness GERD (gastroesophageal reflux disease) History of GI bleed Hypertension Iron deficiency anemia Palliative care encounter Pulmonary edema Pulmonary hypertension Tobacco use disorder Uremia Surgical History History of left-sided carotid endarterectomy 2013 S/P appendectomy Family History Father Hypertension Mother Hypotension Breast cancer Other No family history of adverse response to anesthesia No family history of bleeding disorder Social History Smoking Status: Former smoker Tobacco Type: Cigarettes packs per day: 1; Second Hand Exposure: No; Hx Alcohol Use: Yes Alcohol type: hard liquor Alcohol Intake Frequency: Monthly or Less Alcohol Intake Frequency Comment: 1 bottle of Manny Dupree a month Hx Substance Use: No Preferred Language: Amharic Communication Ability: Effective Visual Impairment: No Limitations Commercial Producer Required: No Beliefs That Will Affect Care: None marital status: Current Living Situation: Spouse and Family Current Living Situation Comment: with and son current occupational status: retired Feels Safe at Home: Yes Assistive Devices: BiPap and Oxygen - Continuous Allergies Allergies Allergy/AdvReac Type Severity Reaction Status Date / Time No Known Allergies Allergy Verified 11/23/22 22:58 Home Meds Home Medications Medication Instructions Recorded Confirmed multivitamin (Multiple Vitamins 1 tab PO DAILY 05/21/20 12/02/22 tablet) docusate sodium 100 mg capsule 100 mg PO BID 06/10/20 12/02/22 melatonin 3 mg capsule 6 mg PO HS 05/26/22 12/02/22 buspirone 10 mg tablet 10 mg PO TID PRN Anxiety 07/22/22 12/02/22 fluticasone fur. 100 mcg-umeclid 1 inh inhalation DAILY 11/17/22 12/02/22 62.5 mcg-vilant 25 mcg inhalat.powder (Trelegy Ellipta) Previous Rx's Medication Instructions Recorded atorvastatin 80 mg tablet 80 mg PO QPM #90 tabs 09/29/22 escitalopram oxalate 20 mg tablet 20 mg PO DAILY 14 days #14 tabs 09/29/22 pantoprazole 40 mg tablet,delayed 40 mg PO DAILY #90 tabs 09/29/22 release albuterol sulfate 90 mcg/actuation 2 puff inhalation Q6H PRN 10/01/22 aerosol inhaler Shortness Of Breath Or Wheezing #18 grams sodium chloride 0.65 % nasal spray 1 spray NA TID #44 mL 11/15/22 aerosol (Saline Mist) spironolactone 25 mg tablet 25 mg PO DAILY 90 days #180 tabs 11/15/22 umeclidinium 62.5 mcg-vilanterol 1 ea inhalation DAILY #60 ea 11/15/22 25 mcg/actuation powdr for inhalation (Anoro Ellipta) magnesium oxide 400 mg (241.3 mg 400 mg PO DAILY #7 tabs 11/17/22 magnesium) tablet potassium chloride 20 mEq 40 meq PO BID #360 tabs 11/20/22 tablet,extended release Oxygen Home #1 ea 11/30/22 bumetanide 2 mg tablet 4 mg PO DIRECTED #100 tabs 11/30/22 metolazone 5 mg tablet 5 mg PO QAM PRN weight gain of 11/30/22 more than 3 pounds in 1-2 days #60 tabs metoprolol tartrate 25 mg tablet 25 mg PO BID #60 tabs 11/30/22 Results & Data (ED) Vital Signs Vital Signs - 24 hr 12/02/22 19:40 12/02/22 19:40 12/02/22 19:40 Temperature 36.7 C Temperature Source Oral Pulse Rate 74 Pulse Rate from SpO2 Sensor Respiratory Rate 24 Respiratory Effort / Characteristics Short of Breath Short of Breath Respiratory Depth Deep Deep Respiratory Pattern Regular Blood Pressure Blood Pressure Mean Pulse Oximetry 96 96 Oxygen Delivery Method Nasal Cannula Nasal Cannula Nasal Cannula Oxygen Flow Rate 6 6 6 Sepsis Recent Fever Within 48 Hours No Sepsis New/Unexplained Change in Mental Status No Sepsis Action Taken by Nursing No Action Required 12/02/22 20:17 12/02/22 19:40 12/02/22 19:50 Temperature Temperature Source Pulse Rate 72 69 Pulse Rate from SpO2 Sensor 72 Respiratory Rate 23 24 Respiratory Effort / Characteristics Respiratory Depth Respiratory Pattern Blood Pressure Blood Pressure Mean Pulse Oximetry 96 Oxygen Delivery Method Nasal Cannula Oxygen Flow Rate 6 Sepsis Recent Fever Within 48 Hours Sepsis New/Unexplained Change in Mental Status Sepsis Action Taken by Nursing 12/02/22 20:00 12/02/22 20:10 12/02/22 20:20 Temperature Temperature Source Pulse Rate 71 71 71 Pulse Rate from SpO2 Sensor Respiratory Rate 17 27 H 21 Respiratory Effort / Characteristics Respiratory Depth Respiratory Pattern Blood Pressure Blood Pressure Mean Pulse Oximetry Oxygen Delivery Method Oxygen Flow Rate Sepsis Recent Fever Within 48 Hours Sepsis New/Unexplained Change in Mental Status Sepsis Action Taken by Nursing 12/02/22 20:30 12/02/22 20:40 12/02/22 20:50 Temperature Temperature Source Pulse Rate 69 71 69 Pulse Rate from SpO2 Sensor 69 71 69 Respiratory Rate 21 24 26 H Respiratory Effort / Characteristics Respiratory Depth Respiratory Pattern Blood Pressure Blood Pressure Mean Pulse Oximetry 97 99 97 Oxygen Delivery Method Oxygen Flow Rate Sepsis Recent Fever Within 48 Hours Sepsis New/Unexplained Change in Mental Status Sepsis Action Taken by Nursing 12/02/22 21:00 12/02/22 21:01 12/02/22 21:01 Temperature Temperature Source Pulse Rate 76 85 Pulse Rate from SpO2 Sensor Respiratory Rate 28 H 19 Respiratory Effort / Characteristics Respiratory Depth Respiratory Pattern Blood Pressure 128/56 L Blood Pressure Mean 80 Pulse Oximetry Oxygen Delivery Method Oxygen Flow Rate Sepsis Recent Fever Within 48 Hours Sepsis New/Unexplained Change in Mental Status Sepsis Action Taken by Nursing 12/02/22 21:10 12/02/22 21:20 12/02/22 21:30 Temperature Temperature Source Pulse Rate 72 65 66 Pulse Rate from SpO2 Sensor 68 Respiratory Rate 17 16 22 Respiratory Effort / Characteristics Respiratory Depth Respiratory Pattern Blood Pressure Blood Pressure Mean Pulse Oximetry 100 Oxygen Delivery Method Oxygen Flow Rate Sepsis Recent Fever Within 48 Hours Sepsis New/Unexplained Change in Mental Status Sepsis Action Taken by Nursing 12/02/22 21:40 12/02/22 21:50 12/02/22 22:00 Temperature Temperature Source Pulse Rate 83 75 78 Pulse Rate from SpO2 Sensor 75 75 75 Respiratory Rate 24 21 22 Respiratory Effort / Characteristics Respiratory Depth Respiratory Pattern Blood Pressure Blood Pressure Mean Pulse Oximetry 100 100 97 Oxygen Delivery Method Oxygen Flow Rate Sepsis Recent Fever Within 48 Hours Sepsis New/Unexplained Change in Mental Status Sepsis Action Taken by Nursing 12/02/22 22:02 12/02/22 22:02 Temperature Temperature Source Pulse Rate 78 Pulse Rate from SpO2 Sensor 78 Respiratory Rate 31 H Respiratory Effort / Characteristics Respiratory Depth Respiratory Pattern Blood Pressure 147/51 H Blood Pressure Mean 83 Pulse Oximetry 95 Oxygen Delivery Method Oxygen Flow Rate Sepsis Recent Fever Within 48 Hours Sepsis New/Unexplained Change in Mental Status Sepsis Action Taken by Nursing Laboratory Data 12/02/22 Unknown 12/02/22 Unknown Administered Medications Discontinued Medications Albuterol (Albut/Ipratrop 3mg/0.5mg Neb 3 Ml Vial) 3 ml NEB NOW STA; Protocol Stop: 12/02/22 19:55 Last Admin: 12/02/22 20:08 Dose: 3 ml Documented By: MARGARET Melatonin (Melatonin 3 Mg Tab) 3 mg PO NOW STA Stop: 12/03/22 00:32 Last Admin: 12/03/22 01:38 Dose: 3 mg Documented By: JOHN Methylprednisolone (Methylprednisolone 125 Mg/2 Ml Vial) 125 mg IV NOW STA Stop: 12/02/22 19:55 Last Admin: 12/02/22 20:08 Dose: 125 mg Documented By: MARGARET Imaging Data Radiologist's Impression: Chest X-Ray 12/02/22 19:31 XR chest 1V portable CLINICAL HISTORY: hypoxia, SOB COMPARISON STUDY: Chest CT November 12, 2022. Chest radiograph April 28, 2023. FINDINGS: There is no pneumothorax. Cardiomegaly is unchanged. Prosthetic aortic valve is in place. Pulmonary vascular congestion is again noted. Small left and trace right pleural effusions are unchanged. Associated left basilar opacity has slightly increased. IMPRESSION: 1. No significant change in small left and trace right pleural effusions. Increa se in associated left basilar opacity. 2. Redemonstration of cardiomegaly with pulmonary vascular congestion. ACT 112: Negative or not required by law. Electronically signed by: Anjum Chaudhry M.D. 12/02/2022 9:21 PM Discharge Plan Visit Data Chief Complaint: Shortness of Breath/Dyspnea ED Provider: Mason Lares Discharge Problem: SOB (shortness of breath), COPD with emphysema, Hypoxia Patient Disposition: Admitted As Inpatient Discharge Instructions Interventions: ED Discharge Assessment Last Done: 12/03/22 00:44
[2022-12-02 20:24] LABS: Basophils # (auto) 0.06 K/uL (0-0.2); Basophils % (auto) 0.8 %; Eosinophils # (auto) 0.27 K/uL (0-0.50); Eosinophils % (auto) 3.5 %; Hematocrit (blood only) 32.8 % (40.1-51.0); Immature Granulocytes # (auto) 0.03 K/uL (0.00-0.02); Immature Granulocytes % (auto) 0.4 %; Lymphocytes % (auto) 5.1 %; Mean Corpuscular Hemoglobin 25.2 pg (25.0-34.0); Mean Corpuscular Hgb Conc 30.5 g/dL (32.0-36.0); Mean Corpuscular Volume 82.6 fL (80.0-100.0); Mean Platelet Volume 10.8 fL (9.4-12.4); Monocytes # (auto) 0.76 K/uL (0.24-0.82); Monocytes % (auto) 9.8 %; Neutrophils # (auto) 6.27 K/uL (1.4-6.5); Neutrophils % (auto) 80.4 %; Platelet Count 362 K/uL (130-400); RDW Coefficient of Variation 18.4 % (11.5-14.5); RDW Standard Deviation 54.6 fL (36.4-46.3); Red Blood Count 3.97 M/uL (4.63-6.08); White Blood Count 7.79 K/ul (4.8-10.8)
[2022-12-02 20:32] LABS: Appearance Urine Clear (Clear); Bilirubin Urine Negative (Negative); Blood Urine Negative (Negative); Color Urine Yellow; Glucose Urine UA Negative (Negative); Ketones Urine Negative (Negative); Leukocyte Esterase Urine Negative (Negative); Nitrite Urine Negative (Negative); Protein Urine Negative (Negative); Specific Gravity Urine 1.008 (1.000-1.030); Urobilinogen Urine Negative (Negative)
[2022-12-02 21:00] LABS: Albumin Globulin Ratio 1.2 (0.9-2); Albumin Level 4.3 gm/dl (3.4-5.0); BUN Creatinine Ratio 43.4 (10-20); Bilirubin,Total 0.3 mg/dl (0.2-1.0); Calcium 10.2 mg/dl (8.5-10.1); Est GFR (Non-African American) 49.1 ml/min; Globulin 3.5 gm/dl (2.5-4.0); Magnesium 2.5 mg/dl (1.7-2.4); Potassium 3.8 mmol/L (3.5-5.1); Total Protein 7.8 gm/dl (6.0-8.3)
[2022-12-02 21:02] LABS: Troponin I High Sensitivity 24.6 pg/ml (0-20)
--- NOTE | 2022-12-02 21:23 | XRay Report ---
XR chest 1V portable CLINICAL HISTORY: hypoxia, SOB COMPARISON STUDY: Chest CT November 12, 2022. Chest radiograph April 28, 2023. FINDINGS: There is no pneumothorax. Cardiomegaly is unchanged. Prosthetic aortic valve is in place. P ulmonary vascular congestion is again noted. Small left and trace right pleural effusions are unchang ed. Associated left basilar opacity has slightly increased. IMPRESSION: 1. No significant change in small left and trace right pleural effusions. Increase in associated left basilar opacity. 2. Redemonstration of cardiomegaly with pulmonary vascular congestion. ACT 112: Negative or not required by law. Electronically signed by: Anjum Chaudhry M.D. 12/02/2022 9:21 PM
--- NOTE | 2022-12-02 22:07 | History & Physical Report ---
Date of Service December 02, 2022 Assessment & Plan (1) Acute on chronic diastolic heart failure with preserved ejection fraction: Plan: Patient with persistent SOB, hypoxia reported in ER. Patient is on 6L of O2 by [place]. Dry weight reported to be 185-190. Weight currently 209 Suspect acute exacerbation of diastolic CHF with preserved EF contributing in part to patient's current decompensation. -Bumex 2mg IV -Continue oral agents - BUmex 4mg po at 0600 and 1700 and Bumex 2mg PO at 1200 -Monitor I/Os, daily weights -Closely monitor renal function and electrolytes - patient has been difficult to effectively diurese in the past due to compromised renal function and development of contraction alkalosis (2) Acute on chronic respiratory failure with hypoxia and hypercapnia: Plan: Patient uses 6L of O2 at home. Saturations presently adequate at 97% -Continue supplemental O2 -Continue DuoNeb q4R -Albuterol q2h as needed (3) Hypertension: Plan: Chronic. Mildly elevated -Continue Metoprolol 50mg po BID -Bumex, Spironolactone -Monitor (4) Anxiety and depression: Plan: Chronic. -Continue Buspirone 10mg po TID -Continue Escitalopram Patient did state that he wants to leave AMA. Of note, he was evaluated by Psychiatry at last visit and deemed that he did not have decision making capacity, thought that possible vascular dementia should be explored further. (5) Iron deficiency anemia: Plan: Patient may benefit from IV iron administration History of Present Illness Chief Complaint: SOB Primary Care Provider: Eric Westbrook DO Mr. Lobo is a 77 year old male w/ PmHx of chronic diastolic heart failure, COPD, aortic stenosis s/p TAVR 2019, chronic respiratory failure on home 5-6L home O2, carotid artery stenosis s/p CEA, tobacco use, history of GI bleed secondary to AVM, HTN who presented to the emergency department with persistent shortness of breath. He was recently hospitalized for similar presentation 11/23/22 - 11/30/22 secondary to diuretic-refractory CHF which required slow diuresis with administration of Diamox. Dry weight reported to be 185-190#. Patient presents at 209# today. Reports that he continues to be short of breath. Also with some increase in bilateral LE edema. Patient becomes dyspneic with minimal exertion. He is on 6L of O2 at home. Takes his inhalers occasionally which has provided some relief. Allergies Allergy/AdvReac Type Severity Reaction Status Date / Time No Known Allergies Allergy Verified 11/23/22 22:58 Home Medications Medication Instructions Recorded Confirmed Type multivitamin (Multiple Vitamins 1 tab PO DAILY 05/21/20 12/02/22 History tablet) docusate sodium 100 mg capsule 100 mg PO BID 06/10/20 12/02/22 History melatonin 3 mg capsule 6 mg PO HS 05/26/22 12/02/22 History buspirone 10 mg tablet 10 mg PO TID PRN Anxiety 07/22/22 12/02/22 History atorvastatin 80 mg tablet 80 mg PO QPM #90 tabs 09/29/22 12/02/22 Rx escitalopram oxalate 20 mg tablet 20 mg PO DAILY 14 days #14 tabs 09/29/22 12/02/22 Rx pantoprazole 40 mg tablet,delayed 40 mg PO DAILY #90 tabs 09/29/22 12/02/22 Rx release albuterol sulfate 90 mcg/actuation 2 puff inhalation Q6H PRN 10/01/22 12/02/22 Rx aerosol inhaler Shortness Of Breath Or Wheezing #18 grams sodium chloride 0.65 % nasal spray 1 spray NA TID #44 mL 11/15/22 12/02/22 Rx aerosol (Saline Mist) spironolactone 25 mg tablet 25 mg PO DAILY 90 days #180 tabs 11/15/22 12/02/22 Rx umeclidinium 62.5 mcg-vilanterol 1 ea inhalation DAILY #60 ea 11/15/22 12/02/22 Rx 25 mcg/actuation powdr for inhalation (Anoro Ellipta) fluticasone fur. 100 mcg-umeclid 1 inh inhalation DAILY 11/17/22 12/02/22 History 62.5 mcg-vilant 25 mcg inhalat.powder (Trelegy Ellipta) magnesium oxide 400 mg (241.3 mg 400 mg PO DAILY #7 tabs 11/17/22 12/02/22 Rx magnesium) tablet potassium chloride 20 mEq 40 meq PO BID #360 tabs 11/20/22 12/02/22 Rx tablet,extended release Oxygen Home #1 ea 11/30/22 12/02/22 Rx bumetanide 2 mg tablet 4 mg PO DIRECTED #100 tabs 11/30/22 12/02/22 Rx metolazone 5 mg tablet 5 mg PO QAM PRN weight gain of 11/30/22 12/02/22 Rx more than 3 pounds in 1-2 days #60 tabs metoprolol tartrate 25 mg tablet 25 mg PO BID #60 tabs 11/30/22 12/02/22 Rx Past Med/Surg History Medical History Acute blood loss anemia Acute exacerbation of chronic obstructive pulmonary disease Acute on chronic diastolic heart failure with preserved ejection fraction Advanced care planning/counseling discussion Allergic rhinitis with postnasal drip Anxiety Aortic stenosis s/p TAVR 2019 ([facility]) CAD (coronary artery disease) Carotid stenosis, bilateral Chronic cor pulmonale Chronic diastolic (congestive) heart failure Chronic heart failure with preserved ejection fraction Chronic respiratory failure with hypoxia Chronic respiratory failure with hypoxia and hypercapnia on home O2 5L rest; 8L with activity COPD (chronic obstructive pulmonary disease) Dyspnea and respiratory abnormalities Elevated troponin I level Generalized weakness GERD (gastroesophageal reflux disease) History of GI bleed Hypertension Iron deficiency anemia Palliative care encounter Pulmonary edema Pulmonary hypertension Tobacco use disorder Uremia Surgical History History of left-sided carotid endarterectomy 2014 S/P appendectomy Family History Father Hypertension Mother Hypotension Breast cancer Other No family history of adverse response to anesthesia No family history of bleeding disorder Social History Smoking Status: Former smoker Tobacco Type: Cigarettes packs per day: 1; Second Hand Exposure: No; Hx Alcohol Use: Yes Alcohol type: hard liquor Alcohol Intake Frequency: Monthly or Less Alcohol Intake Frequency Comment: 1 bottle of Manny Dupree a month Hx Substance Use: No Preferred Language: Slovak Communication Ability: Effective Visual Impairment: No Limitations College Tutor Required: No Beliefs That Will Affect Care: None marital status: Current Living Situation: Spouse and Family Current Living Situation Comment: with and son current occupational status: retired Feels Safe at Home: Yes Assistive Devices: BiPap and Oxygen - Continuous Review of Systems Review of Systems: All systems reviewed & are unremarkable except as noted in HPI & below Physical Exam Physical Exam: General: patient resting comfortably, NAD, non-toxic in appearance, AA&O to person and location Skin: warm, dry, intact, no rashes or lesions HEENT: NC/AT, PERRL, EOMI, anicteric sclera, conjunctiva without injection, external ear normal to inspection and nontender, nares patent, moist mucus membranes, dentition intact, no oropharyngeal lesions, neck supple, trachea midline, no LAD, no thyromegaly, no JVD Heart: +S1/S2, regular, no m/r/g Lungs: equal air entry bilaterally, crackles in bilateral bases Abd: +BS, soft, NT/ND, no masses/organomegaly/ascites Ext: warm, 2+ pulses in UE/LE bilaterally, no clubbing/cyanosis, trace edema of bilateral LE Neuro: nonfocal, patient AA&O x 2, speech intact, no facial droop, moving all extremities on command with equal strength 5/5 Results & Data Results & Data ([facility]) Vital Signs (Past 12 Hours) Vital Signs Temp Pulse Resp BP Pulse Ox O2 Del Method O2 Flow Rate 12/02/22 21:10 72 17 12/02/22 21:01 128/56 L 12/02/22 21:01 85 19 12/02/22 21:00 76 28 H 12/02/22 20:50 69 26 H 97 12/02/22 20:40 71 24 99 12/02/22 20:30 69 21 97 12/02/22 20:20 71 21 12/02/22 20:10 71 27 H 12/02/22 20:00 71 17 12/02/22 19:50 69 24 12/02/22 19:40 72 23 96 12/02/22 20:17 Nasal Cannula 6 12/02/22 19:40 96 Nasal Cannula 6 12/02/22 19:40 36.7 C 74 24 96 Nasal Cannula 6 12/02/22 19:40 Nasal Cannula 6 Laboratory Results Laboratory Results WBC 7.79 K/ul (4.8-10.8) 12/02/22 Unknown RBC 3.97 M/uL (4.63-6.08) L 12/02/22 Unknown Hgb 10.0 g/dl (14.0-18.0) L 12/02/22 Unknown Hct 32.8 % (40.1-51.0) L 12/02/22 Unknown MCV 82.6 fL (80.0-100.0) 12/02/22 Unknown MCH 25.2 pg (25.0-34.0) 12/02/22 Unknown MCHC 30.5 g/dL (32.0-36.0) L 12/02/22 Unknown RDW Std Deviation 54.6 fL (36.4-46.3) H 12/02/22 Unknown RDW Coeff of Vesta 18.4 % (11.5-14.5) H 12/02/22 Unknown Plt Count 362 K/uL (130-400) 12/02/22 Unknown MPV 10.8 fL (9.4-12.4) 12/02/22 Unknown Immature Gran % (Auto) 0.4 % 12/02/22 Unknown Neut % (Auto) 80.4 % 12/02/22 Unknown Lymph % (Auto) 5.1 % 12/02/22 Unknown Republic % (Auto) 9.8 % 12/02/22 Unknown Eos % (Auto) 3.5 % 12/02/22 Unknown Baso % (Auto) 0.8 % 12/02/22 Unknown Neut # (Auto) 6.27 K/uL (1.4-6.5) 12/02/22 Unknown Lymph # (Auto) 0.40 K/uL (1.2-3.4) L 12/02/22 Unknown Republic # (Auto) 0.76 K/uL (0.24-0.82) 12/02/22 Unknown Eos # (Auto) 0.27 K/uL (0-0.50) 12/02/22 Unknown Baso # (Auto) 0.06 K/uL (0-0.2) 12/02/22 Unknown Immature Gran # (Auto) 0.03 K/uL (0.00-0.02) H 12/02/22 Unknown Sodium 139 mmol/L (136-145) 12/02/22 Unknown Potassium 3.8 mmol/L (3.5-5.1) 12/02/22 Unknown Chloride 97 mmol/L (98-107) L 12/02/22 Unknown Carbon Dioxide 37 mmol/L (21-32) H 12/02/22 Unknown Anion Gap 5 (3-11) 12/02/22 Unknown BUN 59 mg/dl (6-23) H 12/02/22 Unknown Creatinine 1.36 mg/dl (0.6-1.4) 12/02/22 Unknown Est Cr Clr Drug Dosing 51.0 ml/min 12/02/22 Unknown Est GFR ( Amer) 57.0 ml/min 12/02/22 Unknown Est GFR (Non-Af Amer) 49.1 ml/min 12/02/22 Unknown BUN/Creatinine Ratio 43.4 (10-20) H 12/02/22 Unknown Glucose 180 mg/dl (70-99(Fasting)) H 12/02/22 Unknown Calcium 10.2 mg/dl (8.5-10.1) H 12/02/22 Unknown Magnesium 2.5 mg/dl (1.7-2.4) H 12/02/22 Unknown Total Bilirubin 0.3 mg/dl (0.2-1.0) 12/02/22 Unknown AST 16 U/L (13-39) 12/02/22 Unknown ALT 14 U/L (7-52) 12/02/22 Unknown Alkaline Phosphatase 98 U/L (34-104) 12/02/22 Unknown Troponin I High Sens 24.6 pg/ml (0-20) H 12/02/22 Unknown B-Natriuretic Peptide 497 pg/ml (0-100) H 12/02/22 Unknown Total Protein 7.8 gm/dl (6.0-8.3) 12/02/22 Unknown Albumin 4.3 gm/dl (3.4-5.0) 12/02/22 Unknown Globulin 3.5 gm/dl (2.5-4.0) 12/02/22 Unknown Albumin/Globulin Ratio 1.2 (0.9-2) 12/02/22 Unknown Urine Color Yellow 12/02/22 Unknown Urine Appearance Clear (Clear) 12/02/22 Unknown Urine pH 7.0 (4.5-7.5) 12/02/22 Unknown Ur Specific [place] 1.008 (1.000-1.030) 12/02/22 Unknown Urine Protein Negative (Negative) 12/02/22 Unknown Urine Glucose (UA) Negative (Negative) 12/02/22 Unknown Urine Ketones Negative (Negative) 12/02/22 Unknown Urine Blood Negative (Negative) 12/02/22 Unknown Urine Nitrite Negative (Negative) 12/02/22 Unknown Urine Bilirubin Negative (Negative) 12/02/22 Unknown Urine Urobilinogen Negative (Negative) 12/02/22 Unknown Ur Leukocyte Esterase Negative (Negative) 12/02/22 Unknown SARS-CoV-2 (PCR) NEGATIVE (Negative) 12/02/22 Unknown Influenza Type A (PCR) Negative (Neg) 12/02/22 Unknown Influenza Type B (PCR) Negative (Neg) 12/02/22 Unknown RSV (RT-PCR) Negative (Neg) 12/02/22 Unknown Impressions Chest X-Ray 12/02/22 19:31 XR chest 1V portable CLINICAL HISTORY: hypoxia, SOB COMPARISON STUDY: Chest CT November 12, 2022. Chest radiograph April 28, 2023. FINDINGS: There is no pneumothorax. Cardiomegaly is unchanged. Prosthetic aortic valve is in place. Pulmonary vascular congestion is again noted. Small left and trace right pleural effusions are unchanged. Associated left basilar opacity has slightly increased. IMPRESSION: 1. No significant change in small left and trace right pleural effusions. Increase in associated left basilar opacity. 2. Redemonstration of cardiomegaly with pulmonary vascular congestion. ACT 112: Negative or not required by law. Electronically signed by: Anjum Chaudhry M.D. 12/02/2022 9:21 PM Code Status & VTE Plan VTE Prophylaxis Plan VTE Prophylaxis will be ordered: Yes PG Care Time/CCT Total # of Minutes Spent Total Time Spent with Patient: Total time spent is greater than 50% in coordination of care (as documented) at patient's floor/unit and/or counseling patient: Coding Level of Care Code 19012 INT INP/OBS CARE 3/75MIN Diagnoses Acute on chronic diastolic heart failure with preserved ejection fraction I50.33 Acute on chronic respiratory failure with hypoxia and hypercapnia J96.21; J96.22 Hypertension I10 Anxiety and depression F41.9; F32.A Iron deficiency anemia D50.9
[2022-12-02 22:14] LABS: Influenza A virus by PCR Negative (Neg); Influenza B virus by PCR Negative (Neg); RSV by PCR Negative (Neg); SARS CoV2 RNA(COVID-19) Ceph NEGATIVE (Negative)
[2022-12-03] MEDS ORDERED: MELATONIN 3 MG TAB PO STA (00:31)
[2022-12-03] MEDS ORDERED: ALBUTEROL 0.5% NEB SOLN 2.5 MG/0.5 ML VIAL NEB PRN (01:30)
[2022-12-03] MEDS ORDERED: ACETAMINOPHEN 325 MG TAB PO PRN (01:30)
[2022-12-03] MEDS ORDERED: BUMETANIDE 2 MG in SYRINGE 0 ML IV ONE (02:00)
[2022-12-03] MEDS: ALBUT/IPRATROP 3MG/0.5MG NEB 3 ML VIAL NEB SCH ×2 (02:52→03:01)
[2022-12-03] MEDS ORDERED: ALBUT/IPRATROP 3MG/0.5MG NEB 3 ML VIAL NEB PRN (04:17)
[2022-12-03] MEDS: BUMETANIDE 1 MG TAB PO SCH ×3 (05:27→17:13)
[2022-12-03] MEDS: UMECLIDINIUM/VILANTEROL 62.5/25MCG 7 PUFFS/INHALER INH SCH (07:35)
[2022-12-03] MEDS: ESCITALOPRAM OXALATE 20 MG TAB PO SCH (07:37)
[2022-12-03] MEDS: PANTOprazole 40 MG TAB PO SCH (07:37)
[2022-12-03] MEDS: METOPROLOL TARTRATE 25 MG TAB PO SCH ×2 (07:37→20:26)
[2022-12-03] MEDS: ENOXAPARIN INJ 40 MG/0.4 ML SYR SQ SCH (07:37)
[2022-12-03] MEDS: POTASSIUM CHLORIDE CRTAB 20 MEQ TABCR PO SCH ×2 (07:37→17:14)
[2022-12-03] MEDS: DOCUSATE SODIUM 100 MG CAP PO SCH ×2 (07:37→20:26)
[2022-12-03] MEDS: SPIRONOLACTONE 25 MG TAB PO SCH (07:37)
[2022-12-03 08:15] LABS: Hematocrit (blood only) 31.9 % (40.1-51.0); Hemoglobin 9.7 g/dl (14.0-18.0); Mean Corpuscular Hemoglobin 24.7 pg (25.0-34.0); Mean Corpuscular Hgb Conc 30.4 g/dL (32.0-36.0); Mean Corpuscular Volume 81.2 fL (80.0-100.0); Mean Platelet Volume 10.6 fL (9.4-12.4); Platelet Count 369 K/uL (130-400); RDW Coefficient of Variation 18.4 % (11.5-14.5); RDW Standard Deviation 54.3 fL (36.4-46.3); Red Blood Count 3.93 M/uL (4.63-6.08); White Blood Count 7.81 K/ul (4.8-10.8)
--- NOTE | 2022-12-03 09:09 | Electrocardiogram Report ---
Test Reason : Blood Pressure : / mmHG Vent. Rate : 071 BPM Atrial Rate : 071 BPM P-R Int : 252 ms QRS Dur : 136 ms QT Int : 420 ms P-R-T Axes : 068 -34 048 degrees QTc Int : 456 ms Sinus rhythm with 1st degree A-V block Left axis deviation Non-specific intra-ventricular conduction block Cannot rule out Old Septal infarct (cited on or before 23-NOV-2022) Abnormal ECG When compared with ECG of 23-NOV-2022 17:10, Premature atrial complexes are no longer Present Confirmed by Zac Burgess ([id number]) on 12/03/2022 9:09:12 AM Referred By: REFERRED SELF Confirmed By:Zac Burgess
[2022-12-03 09:11] LABS: BUN Creatinine Ratio 44.5 (10-20); Calcium 10.2 mg/dl (8.5-10.1); Creatinine Clr Calc Pharmacy 53.2 ml/min; Est GFR (African American) 61.3 ml/min; Est GFR (Non-African American) 52.9 ml/min; Potassium 4.3 mmol/L (3.5-5.1)
--- NOTE | 2022-12-03 20:18 | Hospitalist Progress Note ---
Date of Service December 03, 2022 Assessment & Plan (1) Acute on chronic diastolic heart failure with preserved ejection fraction: Plan: Patient with persistent SOB, hypoxia reported in ER. Patient is on 6L of O2 by [place]. Dry weight reported to be 185-190. Weight currently 209 Suspect acute exacerbation of diastolic CHF with preserved EF contributing in part to patient's current decompensation. -Bumex 2mg IV -Continue oral agents - BUmex 4mg po at 0600 and 1700 and Bumex 2mg PO at 1200 -Monitor I/Os, daily weights -Closely monitor renal function and electrolytes - patient has been difficult to effectively diurese in the past due to compromised renal function and development of contraction alkalosis. will continue to monitor, continue above diuretics, will repeat BMP in AM> (2) Acute on chronic respiratory failure with hypoxia and hypercapnia: Plan: Patient uses 6L of O2 at home. Saturations presently adequate at 97% -Continue supplemental O2 -Continue DuoNeb q4R -Albuterol q2h as needed (3) Hypertension: Plan: Chronic. Mildly elevated -Continue Metoprolol 50mg po BID -Bumex, Spironolactone -Monitor (4) Anxiety and depression: Plan: Chronic. -Continue Buspirone 10mg po TID -Continue Escitalopram Patient did state that he wants to leave AMA. Of note, he was evaluated by Psychiatry at last visit and deemed that he did not have decision making capacity, thought that possible vascular dementia should be explored further. (5) Iron deficiency anemia: Plan: Patient may benefit from IV iron administration Admission and Anticipated Discharge Date Admission Date: December 02, 2022 Subjective Patient reports he would want to discharged home as soon as possible, however, he understands that he was just sent home and is agreeable for a SNF placement. Patient though did not have capacity, when evaluated a few days earlier. Review of Systems Review of Systems: All systems reviewed & are unremarkable except as noted in HPI & below Physical Exam Physical Exam: General: patient resting comfortably, NAD, non-toxic in appearance, AA&O to person and location Skin: warm, dry, intact, no rashes or lesions HEENT: NC/AT, PERRL, EOMI, anicteric sclera, conjunctiva without injection, external ear normal to inspection and nontender, nares patent, moist mucus membranes, dentition intact, no oropharyngeal lesions, neck supple, trachea midline, no LAD, no thyromegaly, no JVD Heart: +S1/S2, regular, no m/r/g Lungs: equal air entry bilaterally, crackles in bilateral bases Abd: +BS, soft, NT/ND, no masses/organomegaly/ascites Ext: warm, 2+ pulses in UE/LE bilaterally, no clubbing/cyanosis, trace edema of bilateral LE Neuro: nonfocal, patient AA&O x 2, speech intact, no facial droop, moving all extremities on command with equal strength 5/5 Results & Data Results & Data ([facility]) Vital Signs (Past 12 Hours) Vital Signs Temp Pulse Resp BP Pulse Ox O2 Del Method O2 Flow Rate 12/03/22 20:04 37.0 C 75 18 139/51 L 96 Nasal Cannula 4 12/03/22 16:07 36.7 C 75 18 119/55 L 93 Nasal Cannula 6 PG Care Time/CCT Total # of Minutes Spent Total Time Spent with Patient: Total time spent is greater than 50% in coordination of care (as documented) at patient's floor/unit and/or counseling patient: Coding Level of Care Code 95607 SUB INP/OBS CARE 2/35MIN Diagnoses Acute on chronic diastolic heart failure with preserved ejection fraction I50.33 Acute on chronic respiratory failure with hypoxia and hypercapnia J96.21; J96.22 Hypertension I10 Anxiety and depression F41.9; F32.A Iron deficiency anemia D50.9
[2022-12-03] MEDS: MELATONIN 3 MG TAB PO PRN (20:25)
[2022-12-03] MEDS: busPIRone 5 MG TAB PO PRN (20:25)
[2022-12-03] MEDS: ATORVASTATIN 40 MG TAB PO SCH (20:26)
[2022-12-03] MEDS ORDERED: LORazepam 1 MG TAB PO STA (23:22)
[2022-12-04] MEDS: BUMETANIDE 1 MG TAB PO SCH ×3 (05:24→16:40)
[2022-12-04] MEDS: PANTOprazole 40 MG TAB PO SCH (09:26)
[2022-12-04] MEDS: SPIRONOLACTONE 25 MG TAB PO SCH (09:26)
[2022-12-04] MEDS: POTASSIUM CHLORIDE CRTAB 20 MEQ TABCR PO SCH ×2 (09:26→16:41)
[2022-12-04] MEDS: UMECLIDINIUM/VILANTEROL 62.5/25MCG 7 PUFFS/INHALER INH SCH (09:27)
[2022-12-04] MEDS: DOCUSATE SODIUM 100 MG CAP PO SCH ×2 (09:27→21:03)
[2022-12-04] MEDS: ESCITALOPRAM OXALATE 20 MG TAB PO SCH (09:27)
[2022-12-04] MEDS: ENOXAPARIN INJ 40 MG/0.4 ML SYR SQ SCH (09:27)
[2022-12-04] MEDS: METOPROLOL TARTRATE 25 MG TAB PO SCH ×2 (09:27→21:03)
[2022-12-04] MEDS: busPIRone 5 MG TAB PO PRN ×2 (15:03→21:03)
[2022-12-04] MEDS: ATORVASTATIN 40 MG TAB PO SCH (21:03)
[2022-12-04] MEDS: MELATONIN 3 MG TAB PO PRN (21:03)
--- NOTE | 2022-12-04 22:14 | Hospitalist Progress Note ---
Date of Service December 04, 2022 Assessment & Plan (1) Acute on chronic diastolic heart failure with preserved ejection fraction: Plan: Patient with persistent SOB, hypoxia reported in ER. Patient is on 6L of O2 by [place]. Dry weight reported to be 185-190. Weight currently 209 Suspect acute exacerbation of diastolic CHF with preserved EF contributing in part to patient's current decompensation. -Bumex 2mg IV -Continue oral agents - BUmex 4mg po at 0600 and 1700 and Bumex 2mg PO at 1200 -Monitor I/Os, daily weights -Closely monitor renal function and electrolytes - patient has been difficult to effectively diurese in the past due to compromised renal function and development of contraction alkalosis. will continue to monitor, continue above diuretics, will repeat BMP in AM. Had disucssion with cardiology, appears given his CHF, lung patholgy, and that he was only able to be home for 2 days. Patient likely is a candidate for hospice. (2) Acute on chronic respiratory failure with hypoxia and hypercapnia: Plan: Patient uses 6L of O2 at home. Saturations presently adequate at 97% -Continue supplemental O2 -Continue DuoNeb q4R -Albuterol q2h as needed (3) Hypertension: Plan: Chronic. Mildly elevated -Continue Metoprolol 50mg po BID -Bumex, Spironolactone -Monitor (4) Anxiety and depression: Plan: Chronic. -Continue Buspirone 10mg po TID -Continue Escitalopram Patient did state that he wants to leave AMA. Of note, he was evaluated by Psychiatry at last visit and deemed that he did not have decision making capacity, thought that possible vascular dementia should be explored further. (5) Iron deficiency anemia: Plan: Patient may benefit from IV iron administration Admission and Anticipated Discharge Date Admission Date: December 02, 2022 Subjective 77 yo male reports no new symptoms. Review of Systems Review of Systems: All systems reviewed & are unremarkable except as noted in HPI & below Physical Exam Physical Exam: General: patient resting comfortably, NAD, non-toxic in appearance, AA&O to person and location Skin: warm, dry, intact, no rashes or lesions HEENT: NC/AT, PERRL, EOMI, anicteric sclera, conjunctiva without injection, external ear normal to inspection and nontender, nares patent, moist mucus memb ranes, dentition intact, no oropharyngeal lesions, neck supple, trachea midline, no LAD, no thyromegaly, no JVD Heart: +S1/S2, regular, no m/r/g Lungs: equal air entry bilaterally, crackles in bilateral bases Abd: +BS, soft, NT/ND, no masses/organomegaly/ascites Ext: warm, 2+ pulses in UE/LE bilaterally, no clubbing/cyanosis, trace edema of bilateral LE Neuro: nonfocal, patient AA&O x 2, speech intact, no facial droop, moving all extremities on command with equal strength 5/5 Results & Data Results & Data ([facility]) Vital Signs (Past 12 Hours) Vital Signs Temp Pulse Resp BP Pulse Ox O2 Del Method O2 Flow Rate 12/04/22 21:47 36.6 C 68 20 145/55 H 94 Nasal Cannula 6 12/04/22 15:22 36.6 C 58 L 18 113/43 L 99 Nasal Cannula 6 12/04/22 11:28 36.7 C 73 18 133/50 L 99 Nasal Cannula 6 PG Care Time/CCT Total # of Minutes Spent Total Time Spent with Patient: Total time spent is greater than 50% in coordination of care (as documented) at patient's floor/unit and/or counseling patient: Coding Level of Care Code 17173 SUB INP/OBS CARE 2/35MIN Diagnoses Acute on chronic diastolic heart failure with preserved ejection fraction I50.33 Acute on chronic respiratory failure with hypoxia and hypercapnia J96.21; J96.22 Hypertension I10 Anxiety and depression F41.9; F32.A Iron deficiency anemia D50.9
[2022-12-05] MEDS: BUMETANIDE 1 MG TAB PO SCH ×3 (06:28→16:20)
[2022-12-05 06:40] LABS: Hemoglobin 8.8 g/dl (14.0-18.0); Mean Corpuscular Hemoglobin 25.2 pg (25.0-34.0); Mean Corpuscular Hgb Conc 30.3 g/dL (32.0-36.0); Mean Corpuscular Volume 83.1 fL (80.0-100.0); Mean Platelet Volume 10.5 fL (9.4-12.4); Platelet Count 318 K/uL (130-400); RDW Coefficient of Variation 18.4 % (11.5-14.5); RDW Standard Deviation 55.7 fL (36.4-46.3); Red Blood Count 3.49 M/uL (4.63-6.08)
[2022-12-05 07:12] LABS: BUN Creatinine Ratio 39.8 (10-20); Calcium 9.9 mg/dl (8.5-10.1); Creatinine Clr Calc Pharmacy 60.3 ml/min; Est GFR (African American) 71.3 ml/min; Est GFR (Non-African American) 61.5 ml/min; Potassium 4.7 mmol/L (3.5-5.1)
[2022-12-05] MEDS: SPIRONOLACTONE 25 MG TAB PO SCH (09:01)
[2022-12-05] MEDS: METOPROLOL TARTRATE 25 MG TAB PO SCH ×2 (09:01→20:57)
[2022-12-05] MEDS: DOCUSATE SODIUM 100 MG CAP PO SCH ×2 (09:01→20:57)
[2022-12-05] MEDS: ESCITALOPRAM OXALATE 20 MG TAB PO SCH (09:01)
[2022-12-05] MEDS: PANTOprazole 40 MG TAB PO SCH (09:01)
[2022-12-05] MEDS: POTASSIUM CHLORIDE CRTAB 20 MEQ TABCR PO SCH ×2 (09:02→16:20)
[2022-12-05] MEDS: UMECLIDINIUM/VILANTEROL 62.5/25MCG 7 PUFFS/INHALER INH SCH (09:02)
[2022-12-05] MEDS: ENOXAPARIN INJ 40 MG/0.4 ML SYR SQ SCH (09:02)
--- NOTE | 2022-12-05 15:42 | Hospitalist Progress Note ---
Date of Service December 05, 2022 Assessment & Plan (1) Acute on chronic diastolic heart failure with preserved ejection fraction: Plan: Patient with persistent SOB, hypoxia reported in ER. Patient is on 6L of O2 by [place]. Dry weight reported to be 185-190. Weight currently 209 Suspect acute exacerbation of diastolic CHF with preserved EF contributing in part to patient's current decompensation. -Continue oral agents - BUmex 4mg po at 0600 and 1700 and Bumex 2mg PO at 1200 -Monitor I/Os, daily weights -Closely monitor renal function and electrolytes - patient has been difficult to effectively diurese in the past due to compromised renal function and development of contraction alkalosis. will continue to monitor, continue above diuretics, will repeat BMP in AM. Increased noon bumex dose and will monitor renal function tests. Had discussion with cardiology, appears given his CHF, lung patholgy, and that he was only able to be home for 2 days. Patient likely is a candidate for hospice. (2) Acute on chronic respiratory failure with hypoxia and hypercapnia: Plan: Patient uses 6L of O2 at home. Saturations presently adequate at 97% -Continue supplemental O2 -Continue DuoNeb q4R -Albuterol q2h as needed (3) Hypertension: Plan: Chronic. Mildly elevated -Continue Metoprolol 50mg po BID -Bumex, Spironolactone -Monitor (4) Anxiety and depression: Plan: Chronic. -Continue Buspirone 10mg po TID -Continue Escitalopram Patient did state that he wants to leave AMA. Of note, he was evaluated by Psychiatry at last visit and deemed that he did not have decision making capacity, thought that possible vascular dementia should be explored further. (5) Iron deficiency anemia: Plan: Patient may benefit from IV iron administration Admission and Anticipated Discharge Date Admission Date: December 02, 2022 Subjective Patient is forgetful and continues to ask why he is in the hospital. He asks to go home, essentially repeating the conversation that was done the day prior. Review of Systems Review of Systems: All systems reviewed & are unremarkable except as noted in HPI & below Physical Exam Physical Exam: General: patient resting comfortably, NAD, non-toxic in appearance, AA&O to person and location Skin: warm, dry, intact, no rashes or lesions HEENT: NC/AT, PERRL, EOMI, anicteric sclera, conjunctiva without injection, external ear normal to inspection and nontender, nares patent, moist mucus membranes, dentition intact, no oropharyngeal lesions, neck supple, trachea midline, no LAD, no thyromegaly, no JVD Heart: +S1/S2, regular, no m/r/g Lungs: equal air entry bilaterally, crackles in bilateral bases Abd: +BS, soft, NT/ND, no masses/organomegaly/ascites Ext: warm, 2+ pulses in UE/LE bilaterally, no clubbing/cyanosis, trace edema of bilateral LE Neuro: nonfocal, patient AA&O x 2, speech intact, no facial droop, moving all extremities on command with equal strength 5/5 Results & Data Results & Data ([facility]) Vital Signs (Past 12 Hours) Vital Signs Temp Pulse Resp BP Pulse Ox O2 Del Method O2 Flow Rate 12/05/22 08:00 Nasal Cannula 6 12/05/22 09:06 36.6 C 90 18 135/49 L 90 Nasal Cannula 6 PG Care Time/CCT Total # of Minutes Spent Total Time Spent with Patient: Total time spent is greater than 50% in coordination of care (as documented) at patient's floor/unit and/or counseling patient: Coding Level of Care Code 91705 SUB INP/OBS CARE 2/35MIN Diagnoses Acute on chronic diastolic heart failure with preserved ejection fraction I50.33 Acute on chronic respiratory failure with hypoxia and hypercapnia J96.21; J96.22 Hypertension I10 Anxiety and depression F41.9; F32.A Iron deficiency anemia D50.9
[2022-12-05] MEDS: busPIRone 5 MG TAB PO PRN (20:57)
[2022-12-05] MEDS: MELATONIN 3 MG TAB PO PRN (20:57)
[2022-12-05] MEDS: ATORVASTATIN 40 MG TAB PO SCH (20:57)
[2022-12-06] MEDS: BUMETANIDE 1 MG TAB PO SCH ×3 (06:45→18:16)
[2022-12-06 07:16] LABS: Hematocrit (blood only) 29.5 % (40.1-51.0); Hemoglobin 8.9 g/dl (14.0-18.0); Mean Corpuscular Hemoglobin 24.9 pg (25.0-34.0); Mean Corpuscular Hgb Conc 30.2 g/dL (32.0-36.0); Mean Corpuscular Volume 82.4 fL (80.0-100.0); Mean Platelet Volume 10.1 fL (9.4-12.4); Platelet Count 296 K/uL (130-400); RDW Coefficient of Variation 17.9 % (11.5-14.5); RDW Standard Deviation 54.7 fL (36.4-46.3); Red Blood Count 3.58 M/uL (4.63-6.08)
[2022-12-06] MEDS: PANTOprazole 40 MG TAB PO SCH (08:06)
[2022-12-06] MEDS: ENOXAPARIN INJ 40 MG/0.4 ML SYR SQ SCH (08:06)
[2022-12-06] MEDS: POTASSIUM CHLORIDE CRTAB 20 MEQ TABCR PO SCH ×2 (08:06→18:14)
[2022-12-06] MEDS: busPIRone 5 MG TAB PO PRN ×2 (08:06→21:00)
[2022-12-06] MEDS: ESCITALOPRAM OXALATE 20 MG TAB PO SCH (08:06)
[2022-12-06] MEDS: SPIRONOLACTONE 25 MG TAB PO SCH (08:06)
[2022-12-06] MEDS: METOPROLOL TARTRATE 25 MG TAB PO SCH ×2 (08:06→21:00)
[2022-12-06] MEDS: DOCUSATE SODIUM 100 MG CAP PO SCH ×2 (08:07→21:01)
[2022-12-06] MEDS: UMECLIDINIUM/VILANTEROL 62.5/25MCG 7 PUFFS/INHALER INH SCH (08:08)
[2022-12-06] MEDS: FLUTICASONE/VILANTEROL 100/25MCG 14 PUFFS/INHALER INH SCH (10:39)
[2022-12-06 15:41] LABS: BUN Creatinine Ratio 28.5 (10-20); Calcium 9.6 mg/dl (8.5-10.1); Creatinine Clr Calc Pharmacy 49.4 ml/min; Est GFR (African American) 56.5 ml/min; Est GFR (Non-African American) 48.7 ml/min; Potassium 4.6 mmol/L (3.5-5.1)
[2022-12-06] MEDS: ATORVASTATIN 40 MG TAB PO SCH (21:00)
[2022-12-06] MEDS: MELATONIN 3 MG TAB PO PRN (21:01)
--- NOTE | 2022-12-06 21:43 | Hospitalist Progress Note ---
Date of Service December 06, 2022 Assessment & Plan (1) Acute on chronic diastolic heart failure with preserved ejection fraction: Plan: Patient with persistent SOB, hypoxia reported in ER. Patient is on 6L of O2 by [place]. Dry weight reported to be 185-190. Weight currently 209 Suspect acute exacerbation of diastolic CHF with preserved EF contributing in part to patient's current decompensation. -Continue oral agents - BUmex 4mg po at 0600 and 1700 and Bumex 2mg PO at 1200 -Monitor I/Os, daily weights -Closely monitor renal function and electrolytes - patient has been difficult to effectively diurese in the past due to compromised renal function and development of contraction alkalosis. will continue to monitor, continue above diuretics, will repeat BMP in AM. Increased noon bumex dose and will monitor renal function tests. Had discussion with cardiology, appears given his CHF, lung patholgy, and that he was only able to be home for 2 days. Patient likely is a candidate for hospice, however family is not agreeable. Awaiting placement for SNF as patient continues to diurese. (2) Acute on chronic respiratory failure with hypoxia and hypercapnia: Plan: Patient uses 6L of O2 at home. Saturations presently adequate at 97% -Continue supplemental O2 -Continue DuoNeb q4R -Albuterol q2h as needed (3) Hypertension: Plan: Chronic. Mildly elevated -Continue Metoprolol 50mg po BID -Bumex, Spironolactone -Monitor (4) Anxiety and depression: Plan: Chronic. -Continue Buspirone 10mg po TID -Continue Escitalopram Patient did state that he wants to leave AMA. Of note, he was evaluated by Psychiatry at last visit and deemed that he did not have decision making capacity, thought that possible vascular dementia should be explored further. (5) Iron deficiency anemia: Plan: Patient may benefit from IV iron administration Admission and Anticipated Discharge Date Admission Date: December 02, 2022 Subjective 77 yo male reports no new symptoms. Continues to require 6 liters. Patient remains forgetful, his was updated on the phone. Review of Systems Review of Systems: All systems reviewed & are unremarkable except as noted in HPI & below Physical Exam Physical Exam: General: patient resting comfortably, NAD, non-toxic in appear ance, AA&O to person and location Skin: warm, dry, intact, no rashes or lesions HEENT: NC/AT, PERRL, EOMI, anicteric sclera, conjunctiva without injection, external ear normal to inspection and nontender, nares patent, moist mucus membranes, dentition intact, no oropharyngeal lesions, neck supple, trachea midline, no LAD, no thyromegaly, no JVD Heart: +S1/S2, regular, no m/r/g Lungs: equal air entry bilaterally, crackles in bilateral bases Abd: +BS, soft, NT/ND, no masses/organomegaly/ascites Ext: warm, 2+ pulses in UE/LE bilaterally, no clubbing/cyanosis, trace edema of bilateral LE Neuro: nonfocal, patient AA&O x 2, speech intact, no facial droop, moving all extremities on command with equal strength 5/5 Results & Data Results & Data ([facility]) Vital Signs (Past 12 Hours) Vital Signs Temp Pulse Resp BP Pulse Ox O2 Del Method O2 Flow Rate 12/06/22 20:29 36.4 C L 76 20 140/54 L 94 Nasal Cannula 6 12/06/22 19:32 Nasal Cannula 6 12/06/22 16:04 36.6 C 67 18 126/69 99 Room Air 12/06/22 15:40 Nasal Cannula 6 PG Care Time/CCT Total # of Minutes Spent Total Time Spent with Patient: Total time spent is greater than 50% in coordination of care (as documented) at patient's floor/unit and/or counseling patient: Coding Level of Care Code 85702 SUB INP/OBS CARE 2/35MIN Diagnoses Acute on chronic diastolic heart failure with preserved ejection fraction I50.33 Acute on chronic respiratory failure with hypoxia and hypercapnia J96.21; J96.22 Hypertension I10 Anxiety and depression F41.9; F32.A Iron deficiency anemia D50.9
[2022-12-07] MEDS: BUMETANIDE 1 MG TAB PO SCH ×3 (06:17→16:47)
[2022-12-07] MEDS: METOPROLOL TARTRATE 25 MG TAB PO SCH ×2 (07:56→20:41)
[2022-12-07] MEDS: SPIRONOLACTONE 25 MG TAB PO SCH (07:56)
[2022-12-07] MEDS: POTASSIUM CHLORIDE CRTAB 20 MEQ TABCR PO SCH ×2 (07:56→16:47)
[2022-12-07] MEDS: PANTOprazole 40 MG TAB PO SCH (07:56)
[2022-12-07] MEDS: ESCITALOPRAM OXALATE 20 MG TAB PO SCH (07:56)
[2022-12-07] MEDS: DOCUSATE SODIUM 100 MG CAP PO SCH ×2 (07:57→20:41)
[2022-12-07] MEDS: UMECLIDINIUM/VILANTEROL 62.5/25MCG 7 PUFFS/INHALER INH SCH (07:57)
[2022-12-07] MEDS: ENOXAPARIN INJ 40 MG/0.4 ML SYR SQ SCH (07:57)
[2022-12-07] MEDS: FLUTICASONE/VILANTEROL 100/25MCG 14 PUFFS/INHALER INH SCH (07:57)
[2022-12-07 08:01] LABS: Hematocrit (blood only) 31.8 % (40.1-51.0); Hemoglobin 9.7 g/dl (14.0-18.0); Mean Corpuscular Hgb Conc 30.5 g/dL (32.0-36.0); Mean Platelet Volume 9.8 fL (9.4-12.4); Platelet Count 300 K/uL (130-400); RDW Coefficient of Variation 17.7 % (11.5-14.5); RDW Standard Deviation 52.5 fL (36.4-46.3); Red Blood Count 3.88 M/uL (4.63-6.08); White Blood Count 7.25 K/ul (4.8-10.8)
[2022-12-07 08:35] LABS: BUN Creatinine Ratio 30.5 (10-20); Calcium 10.3 mg/dl (8.5-10.1); Creatinine Clr Calc Pharmacy 57.4 ml/min; Est GFR (African American) 67.6 ml/min; Est GFR (Non-African American) 58.3 ml/min; Potassium 4.3 mmol/L (3.5-5.1)
[2022-12-07] MEDS: busPIRone 5 MG TAB PO PRN ×2 (16:47→20:41)
[2022-12-07] MEDS: ATORVASTATIN 40 MG TAB PO SCH (20:41)
--- NOTE | 2022-12-07 22:19 | Hospitalist Progress Note ---
Date of Service December 07, 2022 Assessment & Plan (1) Acute on chronic diastolic heart failure with preserved ejection fraction: Plan: Patient with persistent SOB, hypoxia reported in ER. Patient is on 6L of O2 by [place]. Dry weight reported to be 185-190. Weight currently 209 Suspect acute exacerbation of diastolic CHF with preserved EF contributing in part to patient's current decompensation. -Continue oral agents - BUmex 4mg po at 0600 and 1700 and Bumex 2mg PO at 1200 -Monitor I/Os, daily weights -Closely monitor renal function and electrolytes - patient has been difficult to effectively diurese in the past due to compromised renal function and development of contraction alkalosis. will continue to monitor, continue above diuretics, will repeat BMP in AM. Increased noon bumex dose and will monitor renal function tests. Had discussion with cardiology, appears given his CHF, lung patholgy, and that he was only able to be home for 2 days. Patient likely is a candidate for hospice, however family is not agreeable. Awaiting placement for SNF as patient continues to diurese. Patient tolerating above dose on 12/07 (2) Acute on chronic respiratory failure with hypoxia and hypercapnia: Plan: Patient uses 6L of O2 at home. Saturations presently adequate at 97% -Continue supplemental O2 -Continue DuoNeb q4R -Albuterol q2h as needed (3) Hypertension: Plan: Chronic. Mildly elevated -Continue Metoprolol 50mg po BID -Bumex, Spironolactone -Monitor (4) Anxiety and depression: Plan: Chronic. -Continue Buspirone 10mg po TID -Continue Escitalopram Patient did state that he wants to leave AMA. Of note, he was evaluated by Psychiatry at last visit and deemed that he did not have decision making capacity, thought that possible vascular dementia should be explored further. (5) Iron deficiency anemia: Plan: Patient may benefit from IV iron administration Admission and Anticipated Discharge Date Admission Date: December 02, 2022 Subjective Patient reports doing well. Patient has no new complaints at this time. Review of Systems Review of Systems: All systems reviewed & are unremarkable except as noted in HPI & below Physical Exam Physical Exam: General: patient resting comfortably, NAD, non-toxic in appearance, AA&O to person and location Skin: warm, dry, intact, no rashes or lesions HEENT: NC/AT, PERRL, EOMI, anicteric sclera, conjunctiva without injection, external ear normal to inspection and nontender, nares patent, moist mucus membranes, dentition intact, no oropharyngeal lesions, neck supple, trachea midline, no LAD, no thyromegaly, no JVD Heart: +S1/S2, regular, no m/r/g Lungs: equal air entry bilaterally, crackles in bilateral bases Abd: +BS, soft, NT/ND, no masses/organomegaly/ascites Ext: warm, 2+ pulses in UE/LE bilaterally, no clubbing/cyanosis, trace edema of bilateral LE Neuro: nonfocal, patient AA&O x 2, speech intact, no facial droop, moving all extremities on command with equal strength 5/5 Results & Data Results & Data ([facility]) Vital Signs (Past 12 Hours) Vital Signs Temp Pulse Resp BP Pulse Ox O2 Del Method O2 Flow Rate 12/07/22 20:34 36.9 C 70 18 138/49 L 97 Nasal Cannula 6 12/07/22 19:21 Nasal Cannula 6 12/07/22 14:42 36.8 C 67 18 119/59 L 96 Nasal Cannula 5 PG Care Time/CCT Total # of Minutes Spent Total Time Spent with Patient: Total time spent is greater than 50% in coordination of care (as documented) at patient's floor/unit and/or counseling patient: Coding Level of Care Code 54281 SUB INP/OBS CARE 2/35MIN Diagnoses Acute on chronic diastolic heart failure with preserved ejection fraction I50.33 Acute on chronic respiratory failure with hypoxia and hypercapnia J96.21; J96.22 Hypertension I10 Anxiety and depression F41.9; F32.A Iron deficiency anemia D50.9
[2022-12-08] MEDS: BUMETANIDE 1 MG TAB PO SCH ×3 (05:59→17:42)
[2022-12-08 08:21] LABS: BUN Creatinine Ratio 28.7 (10-20); Calcium 10.4 mg/dl (8.5-10.1); Creatinine Clr Calc Pharmacy 55.5 ml/min; Potassium 4.2 mmol/L (3.5-5.1)
[2022-12-08] MEDS: POTASSIUM CHLORIDE CRTAB 20 MEQ TABCR PO SCH ×2 (08:47→17:44)
[2022-12-08] MEDS: SPIRONOLACTONE 25 MG TAB PO SCH (08:47)
[2022-12-08] MEDS: FLUTICASONE/VILANTEROL 100/25MCG 14 PUFFS/INHALER INH SCH (08:47)
[2022-12-08] MEDS: ESCITALOPRAM OXALATE 20 MG TAB PO SCH (08:47)
[2022-12-08] MEDS: DOCUSATE SODIUM 100 MG CAP PO SCH ×2 (08:47→20:41)
[2022-12-08] MEDS: PANTOprazole 40 MG TAB PO SCH (08:47)
[2022-12-08] MEDS: METOPROLOL TARTRATE 25 MG TAB PO SCH ×2 (08:47→20:40)
[2022-12-08] MEDS: ENOXAPARIN INJ 40 MG/0.4 ML SYR SQ SCH (08:48)
[2022-12-08] MEDS: UMECLIDINIUM/VILANTEROL 62.5/25MCG 7 PUFFS/INHALER INH SCH (08:48)
[2022-12-08] MEDS ORDERED: SODIUM CHLORIDE 0.65% NA SOLN 45 ML (OCEAN) PRN (18:13)
[2022-12-08] MEDS: MELATONIN 3 MG TAB PO PRN (20:40)
[2022-12-08] MEDS: busPIRone 5 MG TAB PO PRN (20:40)
[2022-12-08] MEDS: ATORVASTATIN 40 MG TAB PO SCH (20:40)
--- NOTE | 2022-12-08 22:03 | Hospitalist Progress Note ---
Date of Service December 08, 2022 Assessment & Plan (1) Acute on chronic diastolic heart failure with preserved ejection fraction: Plan: Patient with persistent SOB, hypoxia reported in ER. Patient is on 6L of O2 by [place]. Dry weight reported to be 185-190. Weight currently 209 Suspect acute exacerbation of diastolic CHF with preserved EF contributing in part to patient's current decompensation. -Continue oral agents - BUmex 4mg po at 0600 and 1700 and Bumex 2mg PO at 1200 -Monitor I/Os, daily weights -Closely monitor renal function and electrolytes - patient has been difficult to effectively diurese in the past due to compromised renal function and development of contraction alkalosis. will continue to monitor, continue above diuretics, will repeat BMP in AM. Increased noon bumex dose and will monitor renal function tests. Had discussion with cardiology, appears given his CHF, lung patholgy, and that he was only able to be home for 2 days. Patient likely is a candidate for hospice, however family is not agreeable. Awaiting placement for SNF as patient continues to diurese. Patient tolerating above dose on 12/08 Saturating well, will try to tirate down his oxygen. (2) Acute on chronic respiratory failure with hypoxia and hypercapnia: Plan: Patient uses 6L of O2 at home. Saturations presently adequate at 97% -Continue supplemental O2 -Continue DuoNeb q4R -Albuterol q2h as needed -saline nasal spray used to prevent further nose bleeds. (3) Hypertension: Plan: Chronic. Mildly elevated -Continue Metoprolol 50mg po BID -Bumex, Spironolactone -Monitor (4) Anxiety and depression: Plan: Chronic. -Continue Buspirone 10mg po TID -Continue Escitalopram Patient did state that he wants to leave AMA. Of note, he was evaluated by Psychiatry at last visit and deemed that he did not have decision making capacity, thought that possible vascular dementia should be explored further. (5) Iron deficiency anemia: Plan: Patient may benefit from IV iron administration Admission and Anticipated Discharge Date Admission Date: December 02, 2022 Subjective Patient has no new complaints except for dry nasals and had bleeding today. Review of Systems Review of Systems: All systems reviewed & are unremarkable except as noted in HPI & below Physical Exam Physical Exam: General: patient resting comfortably, NAD, non-toxic in appearance, AA&O to person and location Skin: warm, dry, intact, no rashes or lesions HEENT: NC/AT, PERRL, EOMI, anicteric sclera, conjunctiva without injection, external ear normal to inspection and nontender, nares patent, no longer bleeding moist mucus membranes, dentition intact, no oropharyngeal lesions, neck supple, trachea midline, no LAD, no thyromegaly, no JVD Heart: +S1/S2, regular, no m/r/g Lungs: equal air entry bilaterally, crackles in bilateral bases Abd: +BS, soft, NT/ND, no masses/organomegaly/ascites Ext: warm, 2+ pulses in UE/LE bilaterally, no clubbing/cyanosis, trace edema of bilateral LE Neuro: nonfocal, patient AA&O x 2, speech intact, no facial droop, moving all extremities on command with equal strength 5/5 Results & Data Results & Data ([facility]) Vital Signs (Past 12 Hours) Vital Signs Temp Pulse Resp BP Pulse Ox O2 Del Method O2 Flow Rate 12/08/22 15:41 37 C 71 16 139/51 L 98 Nasal Cannula 5 PG Care Time/CCT Total # of Minutes Spent Total Time Spent with Patient: Total time spent is greater than 50% in coordination of care (as documented) at patient's floor/unit and/or counseling patient: Coding Level of Care Code 39598 SUB INP/OBS CARE 2/35MIN Diagnoses Acute on chronic diastolic heart failure with preserved ejection fraction I50.33 Acute on chronic respiratory failure with hypoxia and hypercapnia J96.21; J96.22 Hypertension I10 Anxiety and depression F41.9; F32.A Iron deficiency anemia D50.9
[2022-12-08] MEDS: SODIUM CHLORIDE 0.65% NA SOLN 45 ML (OCEAN) SCH (22:15)
[2022-12-09] MEDS: BUMETANIDE 1 MG TAB PO SCH ×2 (05:52→12:17)
[2022-12-09 08:39] LABS: Calcium 9.8 mg/dl (8.5-10.1); Potassium 4.3 mmol/L (3.5-5.1)
[2022-12-09 08:45] LABS: Creatinine Clr Calc Pharmacy 54.6 ml/min; Est GFR (African American) 63.7 ml/min; Est GFR (Non-African American) 54.9 ml/min
[2022-12-09 08:51] LABS: Hematocrit (blood only) 32.7 % (40.1-51.0); Hemoglobin 10.1 g/dl (14.0-18.0); Mean Corpuscular Hemoglobin 25.1 pg (25.0-34.0); Mean Corpuscular Hgb Conc 30.9 g/dL (32.0-36.0); Mean Corpuscular Volume 81.1 fL (80.0-100.0); Mean Platelet Volume 10.3 fL (9.4-12.4); Platelet Count 283 K/uL (130-400); RDW Coefficient of Variation 17.6 % (11.5-14.5); RDW Standard Deviation 52.3 fL (36.4-46.3); Red Blood Count 4.03 M/uL (4.63-6.08); White Blood Count 9.47 K/ul (4.8-10.8)
[2022-12-09] MEDS: POTASSIUM CHLORIDE CRTAB 20 MEQ TABCR PO SCH (09:10)
[2022-12-09] MEDS: ENOXAPARIN INJ 40 MG/0.4 ML SYR SQ SCH (09:10)
[2022-12-09] MEDS: METOPROLOL TARTRATE 25 MG TAB PO SCH (09:10)
[2022-12-09] MEDS: PANTOprazole 40 MG TAB PO SCH (09:10)
[2022-12-09] MEDS: ESCITALOPRAM OXALATE 20 MG TAB PO SCH (09:10)
[2022-12-09] MEDS: DOCUSATE SODIUM 100 MG CAP PO SCH (09:10)
[2022-12-09] MEDS: FLUTICASONE/VILANTEROL 100/25MCG 14 PUFFS/INHALER INH SCH (09:11)
[2022-12-09] MEDS: SPIRONOLACTONE 25 MG TAB PO SCH (09:11)
[2022-12-09] MEDS: UMECLIDINIUM/VILANTEROL 62.5/25MCG 7 PUFFS/INHALER INH SCH (09:11)
[2022-12-09] MEDS: SODIUM CHLORIDE 0.65% NA SOLN 45 ML (OCEAN) SCH ×2 (09:12→12:17)
[2022-12-09] MEDS: busPIRone 5 MG TAB PO PRN (12:15)
--- NOTE | 2022-12-17 16:30 | Discharge Summary ---
Date of Service December 09, 2022 Admission HPI Per Admitting Provider Mr. Lobo is a 77 year old male w/ PmHx of chronic diastolic heart failure, COPD, aortic stenosis s/p TAVR 2019, chronic respiratory failure on home 5-6L home O2, carotid artery stenosis s/p CEA, tobacco use, history of GI bleed secondary to AVM, HTN who presented to the emergency department with persistent shortness of breath. He was recently hospitalized for similar presentation 11/23/22 - 11/30/22 secondary to diuretic-refractory CHF which required slow diuresis with administration of Diamox. Dry weight reported to be 185-190#. Patient presents at 209# today. Reports that he continues to be short of breath. Also with some increase in bilateral LE edema. Patient becomes dyspneic with minimal exertion. He is on 6L of O2 at home. Takes his inhalers occasionally which has provided some relief. Principal Diagnosis Acute on chronic CHF Discharge Exam General: patient resting comfortably, NAD, non-toxic in appearance, AA&O to person and location Skin: warm, dry, intact, no rashes or lesions HEENT: NC/AT, PERRL, EOMI, anicteric sclera, conjunctiva without injection, external ear normal to inspection and nontender, nares patent, no longer bleeding moist mucus membranes, dentition intact, no oropharyngeal lesions, neck supple, trachea midline, no LAD, no thyromegaly, no JVD Heart: +S1/S2, regular, no m/r/g Lungs: equal air entry bilaterally, crackles in bilateral bases Abd: +BS, soft, NT/ND, no masses/organomegaly/ascites Ext: warm, 2+ pulses in UE/LE bilaterally, no clubbing/cyanosis, trace edema of bilateral LE Neuro: nonfocal, patient AA&O x 2, speech intact, no facial droop, moving all extremities on command with equal strength 5/5 Discharge Data Allergies Allergy/AdvReac Type Severity Reaction Status Date / Time No Known Allergies Allergy Verified 11/23/22 22:58 Consultations 12/02/22 21:38 ED Decision to Admit Stat Hospital Course (1) Acute on chronic diastolic heart failure with preserved ejection fraction: Patient with persistent SOB, hypoxia reported in ER. Patient is on 6L of O2 by [place]. Dry weight reported to be 185-190. Weight currently 209 Suspect acute exacerbation of diastolic CHF with preserved EF contributing in part to patient's current decompensation. -Continue oral agents - BUmex 4mg po at 0600 and 1700 and Bumex 2mg PO at 1200 -Monitor I/Os, daily weights -Closely monitor renal function and electrolytes - patient has been difficult to effectively diurese in the past due to compromised renal function and development of contraction alkalosis. Continue above diuretics. Had discussion with cardiology, appears given his CHF, lung pathology, and that he was only able to be home for 2 days. Patient likely is a candidate for hospice, however family is not agreeable. Patient being discharged to SNF as patient continues to diurese. Patient tolerating above dose on 12/08 (2) Acute on chronic respiratory failure with hypoxia and hypercapnia: Patient uses 6L of O2 at home. Saturations presently adequate at 97% -Continue supplemental O2 -Continue DuoNeb q4R -Albuterol q2h as needed -saline nasal spray used to prevent further nose bleeds. (3) Hypertension: Chronic. Mildly elevated -Continue Metoprolol 50mg po BID -Bumex, Spironolactone -Monitor (4) Anxiety and depression: Chronic. -Continue Buspirone 10mg po TID -Continue Escitalopram Patient did state that he wants to leave AMA. Of note, he was evaluated by Psychiatry at last visit and deemed that he did not have decision making capacity, thought that possible vascular dementia should be explored further. (5) Iron deficiency anemia: Patient may benefit from IV iron administration Total Time Total Time Spent Total Time Spent (In Minutes): 32 Discharge Plan Discharge Items Patient Disposition: Transfer Custodial Fac Reason For Visit: HYPOXIA, SOB Discharge Diagnosis: hypoxia Activity: Resume your previous activity Non-emergency contact: Primary Care Provider Call non-emergency contact if: you have any medication questions Follow-up/Referrals: Suki Herrera PA-C [Phys[employer]] - 12/15/22 3:00 pm Eric Westbrook DO [Primary Care Provider] - Diet: Low Sodium (2gm) Addtl Attending Provider Instructions: Call your Primary Care doctor if any of the following symptoms or problems start or get worse: * Shortness of breath or difficulty breathing * Wake up at night short of breath * Chest pain * Cough * Swelling of your hands, feet, or legs * More fatigued or tired with your normal activity * Palpitations - sudden fast heart beats WEIGHT * Weigh yourself every morning after using the bathroom. * Use the same scale. * Wear the same amount of clothing. * Write your weight down on a chart. * Call your Primary Care doctor if you gain more than 2-3 pounds in 1-2 days. MEDICATIONS * Use this discharge instruction sheet for medication instructions. * Take your medications at the time your doctor ordered. * Do not skip a dose of your medicines. * If you miss a dose of medicine, take it as soon as possible, but DO NOT DOUBLE A DOSE. * Read your medicine information when you get home. * Know all of the side effects of your medicine. If in doubt, ask your pharmacist * Call your Primary Care doctor's office if you have any side effects. * Be sure all of your doctors know what medicine and herbs you take (including cold, flu, and herbal medicine). Take the following with you to your follow-up doctor appointments: * Weight Chart * Medication List * List of questions Do not drink excessive alcohol, beer or wine. Pending Studies at Discharge: No Stand-Alone Forms: [facility] Skilled Items Patient informed of condition?: Yes DNR: No Discharge Level of Care: Skilled Communicable Disease: No Discharge Prognosis: Stable Lines: None Urinary Catheter: No Medications and DC Order Prescriptions: Continued multivitamin [Multiple Vitamins] Tablet 1 tab PO DAILY Qty: 30 0RF atorvastatin 80 mg tablet 80 mg PO QPM Qty: 90 3RF bumetanide 2 mg tablet 4 mg PO DIRECTED Qty: 100 0RF Rx Instructions: 2 tablet in the AM @ 0600; 1 tab @ noon-time; 2 tabs about 5-6pm at night. metolazone 5 mg Tablet 5 mg PO QAM PRN (Reason: weight gain of more than 3 pounds in 1-2 days) Qty: 60 0RF Rx Instructions: take about 30 minutes prior to your MORNING BUMETANIDE spironolactone 25 mg tablet 25 mg PO DAILY 90 Days Qty: 180 3RF pantoprazole 40 mg tablet,delayed release (DR/EC) 40 mg PO DAILY Qty: 90 3RF buspirone 10 mg tablet 10 mg PO TID PRN (Reason: Anxiety) Qty: 30 0RF docusate sodium 100 mg capsule 100 mg PO BID Qty: 30 0RF albuterol sulfate 90 mcg/actuation HFA aerosol inhaler 2 puff inhalation Q6H PRN (Reason: Shortness Of Breath Or Wheezing) Qty: 18 3RF escitalopram oxalate 20 mg tablet 20 mg PO DAILY 14 Days Qty: 14 0RF Saline Mist 0.65 % Aerosol,[place] 1 spray NA TID Qty: 44 0RF metoprolol tartrate 25 mg Tablet 25 mg PO BID Qty: 60 2RF potassium chloride 20 mEq tablet extended release 40 meq PO BID Qty: 360 3RF Trelegy Ellipta 100-62.5-25 mcg blister with device 1 inh inhalation DAILY Qty: 30 0RF magnesium oxide 400 mg (241.3 mg magnesium) tablet 400 mg PO DAILY Qty: 7 0RF (DME) Oxygen Home Liters Per Minute See Rx Instructions .ROUTE .MEDSUPPLY Qty: 1 0RF Rx Instructions: 4 L NC O2 at rest/sleep. 6 L NC O2 with activity/ambulation. melatonin 3 mg capsule 6 mg PO HS Qty: 30 0RF Discontinued Anoro Ellipta 62.5-25 mcg/actuation Blister With Device 1 ea inhalation DAILY Qty: 60 0RF Discharge Orders: Discharge Order- CHF (Routine); Ordered 12/09/22 Ordered By: Matt Barth Admission Data Admit Date/Time: 12/02/22 22:06 Attending Provider: Matt Barth Admit Provider: Haylee Vazquez Primary Care Provider: Eric Westbrook Other Providers: Haylee Vazquez Other Interventions: Discharge Summary Assessment (RN) Last Done: 12/09/22 13:20 Coding Level of Care Code HOSP INP/OBS DISCH >30 MIN Diagnoses Acute on chronic diastolic heart failure with preserved ejection fraction I50.33 Acute on chronic respiratory failure with hypoxia and hypercapnia J96.21; J96.22 Hypertension I10 Anxiety and depression F41.9; F32.A Iron deficiency anemia D50.9
== END 2022-12-09 15:46 | DRG 291 ==
LOC: ED 19:21 → SUATTDRO 22:06 → 3N 22:06
DX: E11.9 Type 2 diabetes mellitus without complications; F41.8 Other specified anxiety disorders; Z87.891 Personal history of nicotine dependence; I50.33 Acute on chronic diastolic (congestive) heart failure; J96.22 Acute and chronic respiratory failure with hypercapnia; I11.0 Hypertensive heart disease with heart failure; J43.9 Emphysema, unspecified; D50.9 Iron deficiency anemia, unspecified; J96.21 Acute and chronic respiratory failure with hypoxia

== ENCOUNTER 2022-12-24 23:32 | Inpatient (IN) ==
--- NOTE | 2022-12-25 00:22 | Emergency Department Note ---
Impression & Plan Hypoxia, CHF (congestive heart failure), Dehydration, mild Admit to the [facility] ED Provider Note NAME: TIEN PIERCE AGE: 77 SEX: M ARRIVES VIA: Ambulance INFORMANT: Patient ED PROVIDER(S): Dari Tejeda DO CHIEF COMPLAINT: Shortness of breath PLAN: Disposition: Admit to the [facility] Condition: Guarded MEDICAL DECISION MAKING: This is a 77-year-old male patient with history of iron deficiency anemia, CHF and COPD who presents to the emergency department with shortness of breath that progressed throughout the day today. Despite being on his usual 5 to 6 L of O2 by nasal cannula, the patient had O2 saturations in the 80s. The patient was on an oxygen mask to maintain O2 saturations greater than 90. Chest x-ray shows evidence of pulmonary edema with bilateral pleural effusions. The patient did get some relief of his respiratory distress with the DuoNeb treatment provided by EMS. Laboratory studies revealed persistent anemia hyperglycemia. The patient does have an elevated BUN at 30 and appears dehydrated on physical exam. I discussed the case with the [place] [facility] and they will evaluate for further management and admission to the hospital. Triage Nursing notes reviewed and agree with them. External medical records reviewed including primary care notes from yesterday Vital Signs: reviewed and remarkable for tachypnea and hypoxia Differential diagnosis: COVID, pneumonia, COPD exacerbation Diagnostics interpreted by me: ECG: Normal sinus rhythm at a rate of 77 with first-degree AV block. There is a poor baseline. There is no ST segment elevation or signs of ischemia. Cardiac Monitoring: Normal sinus rhythm at a rate of 80 Laboratory studies: See below Imaging studies: As per my interpretation Portable chest x-ray: Pulmonary edema with small bilateral pleural effusions HPI: 77/M arrives for evaluation of shortness of breath. Patient explains that he developed worsening shortness of breath throughout the day today the point that he was unable to get any rest at all. Every time he would sit down to rest or close his eyes he would be jolted awake with shortness of breath. He denies any cough or fever. PAST MEDICAL HISTORY:See Below PAST SURGICAL HISTORY:See Below FAMILY HISTORY:See Below SOCIAL HISTORY:See Below HOME MEDICATIONS:See list ALLERGIES:See list VITALS:See Below PHYSICAL EXAMINATION: HEENT: Head - normocephalic and atraumatic. Pupils are equal, round, and reactive to light. Extraocular eye muscles are intact, and sclera are anicteric. Nose - moist nasal mucosa without discharge. Mouth -extremely dry buccal mucosa. Oropharynx is nonerythematous and there is no tonsillar exudate or edema noted. Neck: Supple; no cervical lymphadenopathy appreciated Heart: Diminished breath sounds in all lung anderson with diffuse Rales Lungs: Clear to auscultation bilaterally with no wheezes, rales, or rhonchi. Abdomen: Soft, completely nontender, nondistended, with good bowel sounds. There are no palpable pulsatile masses or hepatosplenomegaly. There is no guarding, rigidity, or rebound noted. Extremities: No evidence of cyanosis, clubbing, or edema. There are easily palpable peripheral pulses. Skin: warm and dry with good turgor and no rashes. ED COURSE: Times/Reassessments: 2345: The patient was evaluated in room C 12. A complete history and physical was performed. Patient was on an oxymask in order to maintain O2 saturations greater than 90% Order was placed for continuous cardiac monitoring. The patient was in a normal sinus rhythm at a rate of 80. A twelve-lead EKG was obtained as described above. The patient was able to go back onto nasal cannula which was more comfortable for the patient and maintain O2 saturations between 85 and 90% which he describes as normal for him. Dari Tejeda DO Past Med/Surg History Medical History Acute blood loss anemia Acute exacerbation of chronic obstructive pulmonary disease Acute on chronic diastolic heart failure with preserved ejection fraction Acute on chronic respiratory failure with hypoxia and hypercapnia Advanced care planning/counseling discussion Allergic rhinitis with postnasal drip Anemia Anxiety Anxiety and depression Aortic stenosis s/p TAVR 2020 ([facility]) Atrial fibrillation CAD (coronary artery disease) Carotid stenosis, bilateral Chronic cor pulmonale Chronic diastolic (congestive) heart failure Chronic heart failure with preserved ejection fraction Chronic respiratory failure with hypoxia Chronic respiratory failure with hypoxia and hypercapnia on home O2 5L rest; 8L with activity COPD (chronic obstructive pulmonary disease) COPD with emphysema Diabetes mellitus type 2, uncontrolled Dyslipidemia Dyspnea and respiratory abnormalities Elevated troponin I level Generalized weakness GERD (gastroesophageal reflux disease) History of GI bleed Hypertension Iron deficiency anemia Iron deficiency anemia Pulmonary edema Pulmonary hypertension Tobacco use disorder Uremia Surgical History History of left-sided carotid endarterectomy 2014 S/P appendectomy Family History Father Hypertension Mother Hypotension Breast cancer Other No family history of adverse response to anesthesia No family history of bleeding disorder Social History Smoking Status: Former smoker Tobacco Type: Cigarettes packs per day: 1; Second Hand Exposure: No; Hx Alcohol Use: Yes Alcohol type: hard liquor Alcohol Intake Frequency: Monthly or Less Alcohol Intake Frequency Comment: 1 bottle of Manny Dupree a month Hx Substance Use: No Preferred Language: Mauritian Communication Ability: Effective Visual Impairment: No 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 Beliefs That Will Affect Care: None marital status: Current Living Situation: Spouse Current Living Situation Comment: with and son current occupational status: retired Feels Safe at Home: Yes Assistive Devices: Cane, Oxygen - Continuous and Walker Allergies Allergies Allergy/AdvReac Type Severity Reaction Status Date / Time No Known Allergies Allergy Verified 12/18/22 08:31 Home Meds Home Medications Medication Instructions Recorded Confirmed bisacodyl 10 mg rectal suppository 10 mg ND DAILY PRN 12/18/22 12/24/22 Previous Rx's Medication Instructions Recorded Oxygen Home #1 ea 12/09/22 albuterol sulfate 90 mcg/actuation 2 puff inhalation Q6H PRN 12/09/22 aerosol inhaler Shortness Of Breath Or Wheezing #18 grams atorvastatin 80 mg tablet 80 mg PO QPM #90 tabs 12/09/22 bumetanide 2 mg tablet 4 mg PO DIRECTED #100 tabs 12/09/22 docusate sodium 100 mg capsule 100 mg PO BID #30 caps 12/09/22 escitalopram oxalate 20 mg tablet 20 mg PO DAILY 14 days #14 tabs 12/09/22 fluticasone fur. 100 mcg-umeclid 1 inh inhalation DAILY #30 ea 12/09/22 62.5 mcg-vilant 25 mcg inhalat.powder (Trelegy Ellipta) magnesium oxide 400 mg (241.3 mg 400 mg PO DAILY #7 tabs 12/09/22 magnesium) tablet melatonin 3 mg capsule 6 mg PO HS #30 caps 12/09/22 metolazone 5 mg tablet 5 mg PO QAM PRN weight gain of 12/09/22 more than 3 pounds in 1-2 days #60 tabs metoprolol tartrate 25 mg tablet 25 mg PO BID #60 tabs 12/09/22 multivitamin (Multiple Vitamins 1 tab PO DAILY #30 tabs 12/09/22 tablet) potassium chloride 20 mEq 40 meq PO BID #360 tabs 12/09/22 tablet,extended release sodium chloride 0.65 % nasal spray 1 spray NA TID #44 mL 12/09/22 aerosol (Saline Mist) spironolactone 25 mg tablet 25 mg PO DAILY 90 days #180 tabs 12/09/22 buspirone 10 mg tablet 10 mg PO TID PRN Anxiety #90 tabs 12/21/22 Results & Data (ED) Vital Signs Vital Signs - 24 hr 12/24/22 23:41 12/24/22 23:48 12/24/22 23:26 Temperature 36.6 C Temperature Source Oral Pulse Rate 80 Respiratory Rate 32 H Respiratory Effort / Characteristics Labored Respiratory Depth Normal Respiratory Pattern Regular Blood Pressure 149/58 H Blood Pressure Mean 88 Pulse Oximetry 100 84 L Oxygen Delivery Method Non-rebreather Nasal Cannula Oxygen Flow Rate 10 6 Sepsis Recent Fever Within 48 Hours No Sepsis New/Unexplained Change in Mental Status N/A Sepsis Action Taken by Nursing No Action Required Oxygen Flow Rate - Titration 10 Pulse Oximetry Post Tiitration 100 Laboratory Data 12/25/22 07:30 12/25/22 07:30 Lab Results 12/24/22 12/24/22 12/25/22 Range/Units 23:15 23:15 00:09 WBC 7.47 (4.8-10.8) K/ul RBC 3.39 L (4.70-6.10) M/uL Hgb 8.4 L (14.0-18.0) g/dl Hct 28.4 L (42.0-52.0) % MCV 83.8 (80.0-100.0) fL MCH 24.8 L (25.0-34.0) pg MCHC 29.6 L (32.0-36.0) g/dL RDW Std Deviation 52.0 H (36.4-46.3) fL RDW Coeff of [place] 17.2 H (11.5-14.5) % Plt Count 342 (130-400) K/uL MPV 10.8 (9.4-12.4) fL Immature Gran % (Auto) 0.3 % Neut % (Auto) 76.8 % Lymph % (Auto) 6.2 % Sampson % (Auto) 12.6 % Eos % (Auto) 3.3 % Baso % (Auto) 0.8 % Neut # (Auto) 5.74 (1.40-6.50) K/uL Lymph # (Auto) 0.46 L (1.2-3.4) K/uL Sampson # (Auto) 0.94 H (0.11-0.59) K/uL Eos # (Auto) 0.25 (0-0.50) K/uL Baso # (Auto) 0.06 (0-0.2) K/uL Immature Gran # (Auto) 0.02 (0.01-0.20) K/uL Sodium 140 (136-145) mmol/L Potassium 4.4 (3.5-5.1) mmol/L Chloride 96 L (98-107) mmol/L Carbon Dioxide 39 H (21-32) mmol/L Anion Gap 5 (3-11) BUN 30 H (6-23) mg/dl Creatinine 1.15 (0.6-1.4) mg/dl Est Cr Clr Drug Dosing Not Reportable Est GFR ( Amer) 69.8 ml/min Est GFR (Non-Af Amer) 60.2 ml/min BUN/Creatinine Ratio 26.1 H (10-20) Glucose 155 H (70-99(Fasting)) mg/dl Calcium 10.1 (8.5-10.1) mg/dl Total Bilirubin 0.3 (0.2-1.0) mg/dl AST 17 (13-39) U/L ALT 11 (7-52) U/L Alkaline Phosphatase 73 (34-104) U/L Troponin I High Sens 15.5 (0-20) pg/ml Total Protein 6.8 (6.0-8.3) gm/dl Albumin 3.8 (3.4-5.0) gm/dl Globulin 3.0 (2.5-4.0) gm/dl Albumin/Globulin Ratio 1.3 (0.9-2) Urine Color Yellow Urine Appearance Clear (Clear) Urine pH 5.0 (4.5-7.5) Ur Specific [place] 1.012 (1.000-1.030) Urine Protein Negative (Negative) Urine Glucose (UA) Negative (Negative) Urine Ketones Negative (Negative) Urine Blood Negative (Negative) Urine Nitrite Negative (Negative) Urine Bilirubin Negative (Negative) Urine Urobilinogen Negative (Negative) Ur Leukocyte Esterase Negative (Negative) Administered Medications Bumetanide ([facility] 1 Mg Tab) [facility] Stop: 01/24/23 20:59 Last Admin: 12/26/22 17:07 Dose: 4 mg Documented By: Admin: 12/26/22 07:59 Dose: 4 mg Documented By: Admin: 12/25/22 20:17 Dose: 4 mg Documented By: SHELBI Lorazepam (Lorazepam 2 Mg/1 Ml Vial) 1 mg IV Q4H PRN PRN Reason: Anxiety Stop: 01/24/23 11:38 Last Admin: 12/26/22 14:54 Dose: 1 mg Documented By: Admin: 12/26/22 02:05 Dose: 1 mg Documented By: Admin: 12/25/22 11:57 Dose: 1 mg Documented By: JAMARI Melatonin (Melatonin 3 Mg Tab) 6 mg PO HS [facility] Stop: 01/24/23 20:59 Last Admin: 12/25/22 20:17 Dose: 6 mg Documented By: SHELBI Discontinued Medications Buspirone HCl (Buspirone 5 Mg Tab) 10 mg PO TID PRN PRN Reason: Anxiety Stop: 01/24/23 05:56 Last Admin: 12/25/22 09:41 Dose: 10 mg Documented By: JAMARI Docusate Sodium (Docusate Sodium 100 Mg Cap) 100 mg PO BID MARZENA Stop: 01/24/23 08:59 Last Admin: 12/25/22 09:41 Dose: 100 mg Documented By: JAMARI Enoxaparin Sodium (Enoxaparin Inj 40 Mg/0.4 Ml Syr) 40 mg SQ Q24H MARZENA Stop: 01/24/23 09:29 Last Admin: 12/25/22 11:03 Dose: Not Given Documented By: JAMARI Escitalopram Oxalate (Escitalopram Oxalate 20 Mg Tab) 20 mg PO DAILY MARZENA Stop: 01/24/23 08:59 Last Admin: 12/25/22 09:41 Dose: 20 mg Documented By: JAMARI Bumetanide 2 mg/ Syringe 8 mls @ 4 mls/min IV ONE ONE Stop: 12/25/22 04:13 Last Admin: 12/25/22 06:22 Dose: 4 mls/min Documented By: JULIA Bumetanide 4 mg/ Syringe 16 mls @ 4 mls/min IV ONE ONE Stop: 12/25/22 12:18 Last Admin: 12/25/22 17:33 Dose: Not Given Documented By: JAMARI Magnesium Oxide (Magnesium Oxide 400 Mg Tab) 400 mg PO DAILY [facility] Stop: 01/24/23 08:59 Last Admin: 12/25/22 09:41 Dose: 400 mg Documented By: JAMARI Metoprolol Tartrate (Metoprolol Tartrate 25 Mg Tab) 25 mg PO BID [facility] Stop: 01/24/23 08:59 Last Admin: 12/25/22 09:53 Dose: Not Given Documented By: JAMARI Miscellaneous (Patient's Weight Needed) 1 each N/A Q2H MARZENA Stop: 01/24/23 06:14 Last Admin: 12/25/22 16:52 Dose: Not Given Documented By: Admin: 12/25/22 11:02 Dose: 1 each Documented By: Admin: 12/25/22 10:59 Dose: 1 each Documented By: JAMARI Morphine Sulfate (Morphine Sulfate 2 Mg/Ml Carp) 2 mg IV NOW STA Stop: 12/25/22 10:56 Last Admin: 12/25/22 11:02 Dose: 2 mg Documented By: JAMARI Morphine Sulfate (Morphine Sulfate 2 Mg/Ml Carp) 2 mg IV NOW STA Stop: 12/25/22 11:22 Last Admin: 12/25/22 11:28 Dose: 2 mg Documented By: JAMARI Spironolactone (Spironolactone 25 Mg Tab) 25 mg PO DAILY [facility] Stop: 01/24/23 08:59 Last Admin: 12/25/22 09:41 Dose: 25 mg Documented By: JAMARI Discharge Plan Visit Data Chief Complaint: Shortness of Breath/Dyspnea ED Provider: Dari Tejeda Discharge Problem: Hypoxia, CHF (congestive heart failure), Dehydration, mild Patient Disposition: Admitted As Inpatient Discharge Instructions Interventions: ED Discharge Assessment Last Done: 12/25/22 05:58
[2022-12-25 00:44] LABS: Basophils # (auto) 0.06 K/uL (0-0.2); Basophils % (auto) 0.8 %; Eosinophils # (auto) 0.25 K/uL (0-0.50); Eosinophils % (auto) 3.3 %; Hematocrit (blood only) 28.4 % (42.0-52.0); Hemoglobin 8.4 g/dl (14.0-18.0); Immature Granulocytes # (auto) 0.02 K/uL (0.01-0.20); Immature Granulocytes % (auto) 0.3 %; Lymphocytes # (auto) 0.46 K/uL (1.2-3.4); Lymphocytes % (auto) 6.2 %; Mean Corpuscular Hemoglobin 24.8 pg (25.0-34.0); Mean Corpuscular Hgb Conc 29.6 g/dL (32.0-36.0); Mean Corpuscular Volume 83.8 fL (80.0-100.0); Mean Platelet Volume 10.8 fL (9.4-12.4); Monocytes # (auto) 0.94 K/uL (0.11-0.59); Monocytes % (auto) 12.6 %; Neutrophils # (auto) 5.74 K/uL (1.40-6.50); Neutrophils % (auto) 76.8 %; Platelet Count 342 K/uL (130-400); RDW Coefficient of Variation 17.2 % (11.5-14.5); Red Blood Count 3.39 M/uL (4.70-6.10); White Blood Count 7.47 K/ul (4.8-10.8)
[2022-12-25 01:00] LABS: Alanine Aminotransferase 11 U/L (7-52); Albumin Globulin Ratio 1.3 (0.9-2); Albumin Level 3.8 gm/dl (3.4-5.0); Alkaline Phosphatase 73 U/L (34-104); Anion Gap 5 (3-11); Aspartate Aminotransferase 17 U/L (13-39); BUN Creatinine Ratio 26.1 (10-20); Bilirubin,Total 0.3 mg/dl (0.2-1.0); Blood Urea Nitrogen 30 mg/dl (6-23); Calcium 10.1 mg/dl (8.5-10.1); Carbon Dioxide 39 mmol/L (21-32); Chloride 96 mmol/L (98-107); Est GFR (African American) 69.8 ml/min; Est GFR (Non-African American) 60.2 ml/min; Glucose 155 mg/dl (70-99(Fasting)); Potassium 4.4 mmol/L (3.5-5.1); Sodium 140 mmol/L (136-145); Total Protein 6.8 gm/dl (6.0-8.3)
[2022-12-25 01:07] LABS: Troponin I High Sensitivity 15.5 pg/ml (0-20)
[2022-12-25 01:19] LABS: Appearance Urine Clear (Clear); Bilirubin Urine Negative (Negative); Blood Urine Negative (Negative); Color Urine Yellow; Glucose Urine UA Negative (Negative); Ketones Urine Negative (Negative); Leukocyte Esterase Urine Negative (Negative); Nitrite Urine Negative (Negative); Protein Urine Negative (Negative); Specific Gravity Urine 1.012 (1.000-1.030); Urobilinogen Urine Negative (Negative)
[2022-12-25] MEDS ORDERED: BUMETANIDE 2 MG in SYRINGE 0 ML IV ONE (04:12)
--- NOTE | 2022-12-25 04:29 | History & Physical Report ---
Date of Service December 25, 2022 Assessment & Plan (1) SOB (shortness of breath): Plan: Richard is a 77 year old male w/ PmHx chronic diastolic heart failure, COPD, aortic stenosis s/p TAVR 2019, chronic respiratory failure on home 5-6L home O2, carotid artery stenosis s/p CEA, tobacco use, history of GI bleed secondary to AVM, HTN admitted forprogressive shortness of breath. Shortness of breath/Hypoxia: -WBC 7.47, Hgb 8.4, Bicarb 39. -CXR w/ moderate pulmonary congestion in b/l lung anderson, cardiomegaly. -Most likely multifactorial w/ CHF fluid overload and COPD components. -Given 2mg IV Bumex in the ED. -Continue home spironolactone 25mg. Hold metolazone. -Continue on Bumex 4mg IV BID. -Strict I&Os, daily weights. -Added on prednisone taper, duoneb treatment, home albuterol for possible COPD component. CHF w/ preserved EF: -Baseline weight around 185-190lbs. -Continue home metoprolol tartrate 25mg. -Continue plan as above. COPD: -Home O2 baseline 5-6L, patient has been hypoxic while on 6L but remains mostly stable on it. -Plan for treatment and home meds continued as above. HTN: -Continue home metoprolol, spironolactone. Bumex 4mg BID IV as above. Anemia: -Hgb 8.4 on arrival. -Baseline 8-10. -May benefit from oral or IV iron. -Trend w/ AM CBC. Anxiety/depression: -Continue home buspirone, escitalopram. ABDIEL: -Bipap HS per protocol. DVT Prophylaxis: Lovenox 40mg daily. F/E/N/GI: heart healthy, sodium limit. Code status: Patient states he would like to be full code and is alert and oriented to person place and date to the month and year. However on past admission earlier last month he was evaluated by psychiatry and determined not to have capacity for need for [facility] care facility. Will need to call and ask her to clarify or bring in POLST form or advanced directive as PCP note from 12/23/2022 states it he would be DNR/DNI. Patient stated to call his in the case anything happened. Dispo: Med/tele. would benefit from talks with case management for [facility] care facility as PCP note from yesterday states patient's unable to care for him fully at home and unsure why he was discharged from [facility]. (2) Hypoxia: (3) Chronic heart failure with preserved ejection fraction: (4) Iron deficiency anemia: (5) Anxiety: (6) COPD (chronic obstructive pulmonary disease): (7) Hypertension: History of Present Illness Chief Complaint: Progressive shortness of breath Primary Care Provider: Eric Westbrook DO Richard is a 77 year old male w/ PmHx chronic diastolic heart failure, COPD, aortic stenosis s/p TAVR 2019, chronic respiratory failure on home 5-6L home O2, carotid artery stenosis s/p CEA, tobacco use, history of GI bleed secondary to AVM, HTN who came into the hospital for progressive shortness of breath. Patient has had multiple admission over the past few months for shortness of breath in the face of fluid overload. Patient states that over the past day he has felt increasingly short of breath and so he came into the ED. He has not had any symptoms of chest pain, cough, fevers, chills, abdominal pain, diarrhea, urinary symptoms. In the ED he was found to be hypoxic on his home 6L of oxygen, WBC 7.47, Hgb 8.4, plt 342, electrolytes WNL, bicarb 39, BUN 30, Creat 1.15, U/A normal. Patient was given 2mg IV Bumex. Allergies Allergy/AdvReac Type Severity Reaction Status Date / Time No Known Allergies Allergy Verified 12/18/22 08:31 Home Medications Medication Instructions Recorded Confirmed Type Oxygen Home #1 ea 12/09/22 12/24/22 Rx albuterol sulfate 90 mcg/actuation 2 puff inhalation Q6H PRN 12/09/22 12/24/22 Rx aerosol inhaler Shortness Of Breath Or Wheezing #18 grams atorvastatin 80 mg tablet 80 mg PO QPM #90 tabs 12/09/22 12/24/22 Rx bumetanide 2 mg tablet 4 mg PO DIRECTED #100 tabs 12/09/22 12/24/22 Rx docusate sodium 100 mg capsule 100 mg PO BID #30 caps 12/09/22 12/24/22 Rx escitalopram oxalate 20 mg tablet 20 mg PO DAILY 14 days #14 tabs 12/09/22 12/24/22 Rx fluticasone fur. 100 mcg-umeclid 1 inh inhalation DAILY #30 ea 12/09/22 12/24/22 Rx 62.5 mcg-vilant 25 mcg inhalat.powder (Trelegy Ellipta) magnesium oxide 400 mg (241.3 mg 400 mg PO DAILY #7 tabs 12/09/22 12/24/22 Rx magnesium) tablet melatonin 3 mg capsule 6 mg PO HS #30 caps 12/09/22 12/24/22 Rx metolazone 5 mg tablet 5 mg PO QAM PRN weight gain of 12/09/22 12/24/22 Rx more than 3 pounds in 1-2 days #60 tabs metoprolol tartrate 25 mg tablet 25 mg PO BID #60 tabs 12/09/22 12/24/22 Rx multivitamin (Multiple Vitamins 1 tab PO DAILY #30 tabs 12/09/22 12/24/22 Rx tablet) potassium chloride 20 mEq 40 meq PO BID #360 tabs 12/09/22 12/24/22 Rx tablet,extended release sodium chloride 0.65 % nasal spray 1 spray NA TID #44 mL 12/09/22 12/24/22 Rx aerosol (Saline Mist) spironolactone 25 mg tablet 25 mg PO DAILY 90 days #180 tabs 12/09/22 12/24/22 Rx bisacodyl 10 mg rectal suppository 10 mg CA DAILY PRN 12/18/22 12/24/22 History buspirone 10 mg tablet 10 mg PO TID PRN Anxiety #90 tabs 12/21/22 12/24/22 Rx Past Med/Surg History Medical History Acute blood loss anemia Acute exacerbation of chronic obstructive pulmonary disease Acute on chronic diastolic heart failure with preserved ejection fraction Acute on chronic respiratory failure with hypoxia and hypercapnia Advanced care planning/counseling discussion Allergic rhinitis with postnasal drip Anemia Anxiety Anxiety and depression Aortic stenosis s/p [facility] 2019 [facility] Atrial fibrillation CAD (coronary artery disease) Carotid stenosis, bilateral Chronic cor pulmonale Chronic diastolic (congestive) heart failure Chronic heart failure with preserved ejection fraction Chronic respiratory failure with hypoxia Chronic respiratory failure with hypoxia and hypercapnia on home O2 5L rest; 8L with activity COPD (chronic obstructive pulmonary disease) COPD with emphysema Diabetes mellitus type 2, uncontrolled Dyslipidemia Dyspnea and respiratory abnormalities Elevated troponin I level Generalized weakness GERD (gastroesophageal reflux disease) History of GI bleed Hypertension Iron deficiency anemia Iron deficiency anemia Pulmonary edema Pulmonary hypertension Tobacco use disorder Uremia Surgical History History of left-sided carotid endarterectomy 2014 S/P appendectomy Family History Father Hypertension Mother Hypotension Breast cancer Other No family history of adverse response to anesthesia No family history of bleeding disorder Social History Smoking Status: Former smoker Tobacco Type: Cigarettes packs per day: 1; Second Hand Exposure: No; Hx Alcohol Use: Yes Alcohol type: hard liquor Alcohol Intake Frequency: Monthly or Less Alcohol Intake Frequency Comment: 1 bottle of Manny Dupree a month Hx Substance Use: No Preferred Language: Sami Communication Ability: Effective Visual Impairment: No 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 Physical Exam Constitutional: WD/WN, vitals as above Patient resting in bed not in any acute distress. Eyes: PERRL, conjunctivae normal, anicteric sclerae Respiratory: Mild end expiratory wheeze, mildly course throughout bilateral lung anderson. Cardiovascular: Rate/Rhythm: regular rate and regular rhythm Heart Sounds: normal S1 and normal S2 1+ pitting edema bilaterally at lower extremities up to mid jeffers Gastrointestinal (Abdomen): normal bowel sounds, soft, nontender, no hepatosplenomegaly Skin: Bilateral legs with chronic lymph and venous stasis changes. Results & Data Results & Data ([facility]) Vital Signs (Past 12 Hours) Vital Signs Temp Pulse Resp BP Pulse Ox O2 Del Method O2 Flow Rate 12/25/22 04:10 66 18 99 Nasal Cannula 6 12/25/22 04:00 77 21 150/60 H 98 12/25/22 03:30 65 23 123/43 L 100 12/25/22 03:00 66 21 131/65 100 12/25/22 02:30 73 16 144/65 H 100 12/25/22 02:00 69 18 139/45 L 100 12/25/22 01:30 66 14 131/43 L 100 12/25/22 00:50 75 33 H 82 L Nasal Cannula 6 12/25/22 00:30 74 23 126/51 L 88 L Nasal Cannula 6 12/25/22 00:20 88 L Nasal Cannula 6 12/25/22 00:00 71 20 145/55 H 100 6 12/24/22 23:42 76 20 146/47 H 91 6 12/25/22 00:09 75 24 89 L Nasal Cannula 6 12/24/22 23:26 84 L Nasal Cannula 6 12/24/22 23:48 36.6 C 12/24/22 23:41 80 32 H 149/58 H 100 Non-rebreather 10 Supervising Physician Co-Signing Physician Notes Attending addendum: I have physically seen this patient, have supervised the medical residents activities, and agree with the H&P unless as otherwise noted. Assessment and Plan: HFpEF exacerbation/hypertension- Multiple admissions over the past year for similar symptoms Patient reportedly had potato chips earlier in the day Change oral Bumex to Bumex 4 mg IV twice daily Follow serial BMP and magnesium levels Continue metoprolol, spironolactone 25 mg daily Hold metolazone Patient with noted dietary noncompliance COPD- Suspect flare may have predisposed to HFrEF exacerbation as well Continue home medications and Duonebs every 4 hours while awake and every 2 hours when necessary. Chronic anemia- Hemoglobin 8.4, with baseline 8-10 Follow serially Transfuse if needed ABDIEL- BiPAP at bedtime per protocol Palliative care consult- As noted before, patient would be best served in a more supervised setting such as inpatient care home Remaining orders and notations as noted Resident Activity Tracking Resident Involvement: Resident Care Provided Care Provided: Adult Hospital Medicine (1) COPD (chronic obstructive pulmonary disease) COPD type: COPD with acute exacerbation Qualified Code(s): J44.1 - Chronic obstructive pulmonary disease with (acute) exacerbation
[2022-12-25 04:57] LABS: Influenza A virus by PCR Negative (Neg); Influenza B virus by PCR Negative (Neg); RSV by PCR Negative (Neg); SARS CoV2 RNA(COVID-19) Ceph NEGATIVE (Negative)
[2022-12-25] MEDS ORDERED: ALBUTEROL HFA 8 GM INHALER INH PRN (05:57)
[2022-12-25] MEDS ORDERED: ALBUT/IPRATROP 3MG/0.5MG NEB 3 ML VIAL NEB PRN (05:57)
[2022-12-25] MEDS ORDERED: ACETAMINOPHEN 325 MG TAB PO PRN (05:57)
[2022-12-25] MEDS ORDERED: POLYETHYLENE (MIRALAX) 17 GM PACK PO PRN (05:57)
[2022-12-25] MEDS ORDERED: busPIRone 5 MG TAB PO PRN (05:57)
--- NOTE | 2022-12-25 07:14 | Communication Note ---
Date of Service: December 25, 2022 This morning the patient reports that he is comfortable breathing on 6L/min nasal cannula (home O2 requirement). Reports he salts his food, eats soups/mi crowavable meals, and eats high-sodium meats such as ham - he eats "everything". Reports several days of worsening HOOVER and orthopnea. No change in chronic LE edema. Does report that he has chronic sinus congestion but no recent viral URI symptoms, illnesses, or cough. On exam there are expiratory bibasilar rhonchi and decreased bibasilar aeration as well. No wheezes. No increased work of breathing with supplemental O2. Heart RRR w/o murmurs. No JVD. 2+ pitting LE edema to knees bilaterally with what appears to be chronic venous stasis dermatitis. Suspect patient is in mild acute on chronic HFpEF. Do not suspect COPD exacerbation. Additionally I feel that the patient has intermittent air hunger despite chronic supplemental O2 requirements, due to severe chronic conditions - Stage 4 Heart Failure and COPD with chronic respiratory failure. He has also had increasing/frequent hospitalizations and associated worsening deconditioning. - will discontinue Prednisone as has not been given yet, and do not suspect COPD exacerbation - s/p Bumex 2mg early this morning; will give another 4mg IV this morning and continue with Bumex 6mg IV BID - note: home dose is total Bumex of 10mg PO daily - s/p Morphine several 2mg IV doses for air hunger with some improvement - continue with PRN order - strict I/Os, heart-healthy/lowNa diet, 1500cc fluid restrictions - PRN Duonebs - continue other home medications as is Given patient's progressive deconditioning and end-stage CHF, with significant limitation on all iADLs and some ADLs as well, patient will need significant assistance with care. Unfortunately he has told me that his is unable to provide him with the care he needs. His has previously expressed interest to PCP that she would like to pursue long-term facilities for the patient. Additionally the patient has previously seen our Palliative care team at the hospital, when he elected to change code status to DNR/DNI. - changed code status to DNR/DNI to reflect patient's/'s wishes - called patient's to help assist with goals of care - she reiterated that she is unable to care for patient at home, and was going to have the patient sent to [facility] ([facility]) yesterday except he said he wanted to go to the hospital for dyspnea. She is interested in Palliative care consultation and would like to discuss details of hospice vs p alliative care as well as resources for patient while he is in LTC facility - placed Palliative care consult - appreciate recs I personally examined the patient and verified all verma points of history and exam, discussed case, and agree with decision making with Dr Ballard. as above Resident Activity Tracking Resident Involvement: Resident Care Provided Care Provided: Adult Hospital Medicine
[2022-12-25 07:49] LABS: Basophils # (auto) 0.05 K/uL (0-0.2); Basophils % (auto) 0.6 %; Eosinophils # (auto) 0.22 K/uL (0-0.50); Eosinophils % (auto) 2.8 %; Hematocrit (blood only) 26.9 % (42.0-52.0); Immature Granulocytes # (auto) 0.03 K/uL (0.01-0.20); Immature Granulocytes % (auto) 0.4 %; Lymphocytes # (auto) 0.39 K/uL (1.2-3.4); Mean Corpuscular Hemoglobin 24.8 pg (25.0-34.0); Mean Corpuscular Hgb Conc 29.7 g/dL (32.0-36.0); Mean Corpuscular Volume 83.5 fL (80.0-100.0); Mean Platelet Volume 9.8 fL (9.4-12.4); Monocytes # (auto) 0.99 K/uL (0.11-0.59); Monocytes % (auto) 12.7 %; Neutrophils # (auto) 6.13 K/uL (1.40-6.50); Neutrophils % (auto) 78.5 %; Platelet Count 301 K/uL (130-400); RDW Coefficient of Variation 17.1 % (11.5-14.5); RDW Standard Deviation 51.6 fL (36.4-46.3); Red Blood Count 3.22 M/uL (4.70-6.10); White Blood Count 7.81 K/ul (4.8-10.8)
--- NOTE | 2022-12-25 08:04 | XRay Report ---
XR chest 1V portable HISTORY: Dyspnea COMPARISON: Chest 12/02/2022. FINDINGS: No pneumothorax. The cardiac silhouette remains enlarged. There is mild interstitial pulmon luis angel edema and small bilateral pleural effusions. This has slightly progressed in the interval. Bibasi lar densities persist. IMPRESSION: 1. Slight progression of the mild interstitial pulmonary edema. 2. Bibasilar densities and small bilateral pleural effusions persist. ACT 112: Negative or not required by law. Electronically signed by: Nikhil Louise M.D. 12/25/2022 8:02 AM
[2022-12-25 08:41] LABS: Anion Gap 3 (3-11); BUN Creatinine Ratio 26.4 (10-20); Blood Urea Nitrogen 28 mg/dl (6-23); Calcium 10.7 mg/dl (8.5-10.1); Carbon Dioxide 41 mmol/L (21-32); Chloride 98 mmol/L (98-107); Est GFR (Non-African American) 66.4 ml/min; Glucose 144 mg/dl (70-99(Fasting)); Magnesium 2.3 mg/dl (1.7-2.4); Potassium 4.2 mmol/L (3.5-5.1); Sodium 142 mmol/L (136-145)
[2022-12-25] MEDS ORDERED: DOCUSATE SODIUM 100 MG CAP PO SCH (09:00)
[2022-12-25] MEDS ORDERED: SPIRONOLACTONE 25 MG TAB PO SCH (09:00)
[2022-12-25] MEDS ORDERED: predniSONE 20 MG TAB PO SCH (09:00)
[2022-12-25] MEDS ORDERED: MAGNESIUM OXIDE 400 MG TAB PO SCH (09:00)
[2022-12-25] MEDS ORDERED: ESCITALOPRAM OXALATE 20 MG TAB PO SCH (09:00)
[2022-12-25] MEDS ORDERED: ENOXAPARIN INJ 40 MG/0.4 ML SYR SQ SCH (09:30)
[2022-12-25] MEDS: METOPROLOL TARTRATE 25 MG TAB PO SCH ×2 (09:41→09:53)
[2022-12-25] MEDS ORDERED: MoRPHine SULFATE 2 MG/ML CARP IV STA ×2 (10:55→11:21)
[2022-12-25] MEDS: Patient's WEIGHT Needed SCH ×3 (10:59→16:52)
[2022-12-25] MEDS ORDERED: MoRPHine SULFATE 2 MG/ML CARP IV PRN (11:21)
[2022-12-25] MEDS: LORazepam 2 MG/1 ML VIAL IV PRN (11:57)
--- NOTE | 2022-12-25 11:58 | Electrocardiogram Report ---
Test Reason : Blood Pressure : / mmHG Vent. Rate : 077 BPM Atrial Rate : 077 BPM P-R Int : 260 ms QRS Dur : 116 ms QT Int : 392 ms P-R-T Axes : 076 -34 034 degrees QTc Int : 443 ms Poor data quality, interpretation may be adversely affected Sinus rhythm with 1st degree A-V block Left axis deviation Septal infarct (cited on or before 23-NOV-2022) Abnormal ECG When compared with ECG of 02-DEC-2022 20:25, No significant change was found Confirmed by Mj Zimmerman ([id number]) on 12/25/2022 11:58:00 AM Referred By: Eric Westbrook Confirmed By:Mj Zimmerman
[2022-12-25] MEDS ORDERED: BUMETANIDE 4 MG in SYRINGE 0 ML IV ONE (12:15)
[2022-12-25] MEDS ORDERED: ONDANSETRON INJ 2 MG/ML 2 ML VIAL IV PRN (12:19)
[2022-12-25] MEDS ORDERED: GLYCOPYRROLATE 0.2 MG/ML VIAL IV PRN (12:19)
--- NOTE | 2022-12-25 12:36 | Palliative Care Consultation ---
Date of Consultation December 25, 2022 Assessment & Plan (1) Anxiety: He tells me that he is afraid that he is dying and has asked the nurse if he can be "put to sleep". We discussed concern that with his advanced heart failure and COPD, he may be approaching his dying time. Reassured him that at this time, his vital signs are stable and that we will continue to address his symptoms. Lorazepam ordered prn. (2) SOB (shortness of breath): Oxygen increased to 10L via mask Continue prn morphine and monitor. If dyspnea and restlessness persists, would consider morphine infusion. (3) Palliative care encounter: Mr. Lobo has been seen by palliative care in the past and was insistent at that time that he wanted to remain a full code. He has had further discussions with his PCP, with Smita Herrera, who has followed him for some time in heart failure clinic and with hospitalist. He has now said that he does not think that he would want CPR and code status is DNR/DNI. He clearly realizes that he is approaching his dying time. I spoke with his , Noemi, on the phone. She has been overwhelmed with caring for him at home and frustrated by his noncompliance and irritability. She feels that he has suffered for a long time and tells me that "the man should have some peace and comfort". 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 She has considered hospice care but was concerned about the expense of room and board at SNF if he is on hospice. Per her request, we discussed the differences between hospice and palliative care. We discussed option to continue medical management of his comorbidities and I assured her that attending to his comfort was not mutually exclusive. However, it does somewhat limit the extent to which we can use comfort medications. The other option, knowing that his heart and lung problems are not fixable at this time, would be transition of care to comfort measures only. She seems to think that comfort measures would be the best approach for his care but requested input from Smita Herrera who has discussed goals of care with them in the past. She and Richard trust her opinion. I contacted Smita Herrera, who spoke with Noemi. All are in agreement to pursue comfort focused care. Dr. Ballard and RN notified. History of Present Illness Reason for Consultation: goals of care Requesting Physician: Dr. Ballard Attending Physician: Carlton Veloz DO History of Present Illness 77 yo gentleman with history of end stage diastolic heart failure, COPD and chronic respiratory failure and GI bleed with AVM. He is s/p TAVR in 2019 for aortic stenosis and CEA for carotid stenosis. He has had five hospitalizations in the last three months. He was discharged on 12/09 to [facility] for rehab and had only just returned home when he started to have progressive shortness of breath and returned to the ER. He has 5 lb weight gain from his discharge weight and mild elevation in BNP. Chest xray shows persistent bilateral pleural effusions and slight progression of interstitial pulmonary edema. His baseline O2 requirement is 6L. He is very anxious and complains of feeling short of breath. He tells me that he feels like he is dying. He has received two doses of IV morphine (!2mg OME) with little relief. He is alternately somnolent and agitated with O2 sat dropping into mid 80s.. Allergies Allergy/AdvReac Type Severity Reaction Status Date / Time No Known Allergies Allergy Verified 12/18/22 08:31 Home Medications Medication Instructions Recorded Confirmed Type Oxygen Home #1 ea 12/09/22 12/24/22 Rx albuterol sulfate 90 mcg/actuation 2 puff inhalation Q6H PRN 12/09/22 12/24/22 Rx aerosol inhaler Shortness Of Breath Or Wheezing #18 grams atorvastatin 80 mg tablet 80 mg PO QPM #90 tabs 12/09/22 12/24/22 Rx bumetanide 2 mg tablet 4 mg PO DIRECTED #100 tabs 12/09/22 12/24/22 Rx docusate sodium 100 mg capsule 100 mg PO BID #30 caps 12/09/22 12/24/22 Rx escitalopram oxalate 20 mg tablet 20 mg PO DAILY 14 days #14 tabs 12/09/22 12/24/22 Rx fluticasone fur. 100 mcg-umeclid 1 inh inhalation DAILY #30 ea 12/09/22 12/24/22 Rx 62.5 mcg-vilant 25 mcg inhalat.powder (Trelegy Ellipta) magnesium oxide 400 mg (241.3 mg 400 mg PO DAILY #7 tabs 12/09/22 12/24/22 Rx magnesium) tablet melatonin 3 mg capsule 6 mg PO HS #30 caps 12/09/22 12/24/22 Rx metolazone 5 mg tablet 5 mg PO QAM PRN weight gain of 12/09/22 12/24/22 Rx more than 3 pounds in 1-2 days #60 tabs metoprolol tartrate 25 mg tablet 25 mg PO BID #60 tabs 12/09/22 12/24/22 Rx multivitamin (Multiple Vitamins 1 tab PO DAILY #30 tabs 12/09/22 12/24/22 Rx tablet) potassium chloride 20 mEq 40 meq PO BID #360 tabs 12/09/22 12/24/22 Rx tablet,extended release sodium chloride 0.65 % nasal spray 1 spray NA TID #44 mL 12/09/22 12/24/22 Rx aerosol (Saline Mist) spironolactone 25 mg tablet 25 mg PO DAILY 90 days #180 tabs 12/09/22 12/24/22 Rx bisacodyl 10 mg rectal suppository 10 mg FL DAILY PRN 12/18/22 12/24/22 History buspirone 10 mg tablet 10 mg PO TID PRN Anxiety #90 tabs 12/21/22 12/24/22 Rx Patient History Medical History Acute blood loss anemia Acute exacerbation of chronic obstructive pulmonary disease Acute on chronic diastolic heart failure with preserved ejection fraction Acute on chronic respiratory failure with hypoxia and hypercapnia Advanced care planning/counseling discussion Allergic rhinitis with postnasal drip Anemia Anxiety Anxiety and depression Aortic stenosis s/p [facility]R 2019 ([facility]) Atrial fibrillation CAD (coronary artery disease) Carotid stenosis, bilateral Chronic cor pulmonale Chronic diastolic (congestive) heart failure Chronic heart failure with preserved ejection fraction Chronic respiratory failure with hypoxia Chronic respiratory failure with hypoxia and hypercapnia on home O2 5L rest; 8L with activity COPD (chronic obstructive pulmonary disease) COPD with emphysema Diabetes mellitus type 2, uncontrolled Dyslipidemia Dyspnea and respiratory abnormalities Elevated troponin I level Generalized weakness GERD (gastroesophageal reflux disease) History of GI bleed Hypertension Iron deficiency anemia Iron deficiency anemia Pulmonary edema Pulmonary hypertension Tobacco use disorder Uremia Surgical History History of left-sided carotid endarterectomy 2014 S/P appendectomy Family History Father Hypertension Mother Hypotension Breast cancer Other No family history of adverse response to anesthesia No family history of bleeding disorder Social History Smoking Status: Former smoker Tobacco Type: Cigarettes packs per day: 1; Second Hand Exposure: No; Do You Dip or Chew Tobacco: No; Hx Alcohol Use: Yes Alcohol type: hard liquor Alcohol Intake Frequency: Monthly or Less Alcohol Intake Frequency Comment: 1 bottle of Manny Dupree a month Hx Substance Use: No Preferred Language: Amharic Communication Ability: Effective Visual Impairment: No Limitations Spanish Professor Required: No Beliefs That Will Affect Care: None marital status: Current Living Situation: Spouse Current Living Situation Comment: with and son current occupational status: retired Feels Safe at Home: Yes Safety Concerns: Feels Safe At This Time Assistive Devices: Cane, Oxygen - Continuous and Walker Review of Systems Review of Systems: ESAS Pain 0/3 Dyspnea 2/3 Nausea 0/3 Anxiety 2/3 Drowsiness 1/3 Physical Exam Constitutional: + uncomfortable Respiratory: + uses accessory muscles Cardiovascular: Rate/Rhythm: regular rate and regular rhythm Extremities: + edema Skin: warm and dry Psychiatric: Affect: + anxious affect Results & Data ([facility]) Vital Signs (Past 12 Hours) Vital Signs Pulse Resp BP Pulse Ox Pulse Ox O2 Del Method O2 Del Method 12/25/22 10:14 Nasal Cannula 12/25/22 09:46 81 18 137/45 L 96 Nasal Cannula 12/25/22 09:01 22 125/106 H 94 12/25/22 08:30 157/65 H 100 Nasal Cannula 12/25/22 06:31 78 26 H 138/48 L 98 12/25/22 05:57 93 Room Air 12/25/22 06:00 74 17 133/55 L 99 12/25/22 05:30 82 29 H 155/63 H 96 12/25/22 05:00 71 19 145/57 H 98 Nasal Cannula 12/25/22 04:10 66 18 99 Nasal Cannula 12/25/22 04:00 77 21 150/60 H 98 12/25/22 03:30 65 23 123/43 L 100 12/25/22 03:00 66 21 131/65 100 12/25/22 02:30 73 16 144/65 H 100 12/25/22 02:00 69 18 139/45 L 100 12/25/22 01:30 66 14 131/43 L 100 12/25/22 00:50 75 33 H 82 L Nasal Cannula 12/25/22 00:30 74 23 126/51 L 88 L Nasal Cannula O2 Flow Rate 12/25/22 10:14 5 12/25/22 09:46 5 12/25/22 09:01 12/25/22 08:30 6 12/25/22 06:31 12/25/22 05:57 12/25/22 06:00 12/25/22 05:30 12/25/22 05:00 6 12/25/22 04:10 6 12/25/22 04:00 12/25/22 03:30 12/25/22 03:00 12/25/22 02:30 12/25/22 02:00 12/25/22 01:30 12/25/22 00:50 6 12/25/22 00:30 6 PG Care Time/CCT Total # of Minutes Spent Total Time Spent: 155 Total Time Spent with Patient: Total time spent is greater than 50% in coordination of care (as documented) at patient's floor/unit and/or counseling patient:[id number] Coding Level of Care Code 88587 INT INP/OBS CARE 3/75MIN Diagnoses Anxiety F41.9 SOB (shortness of breath) R06.02 Palliative care encounter Z51.5
[2022-12-25] MEDS ORDERED: BUMETANIDE IV SCH (17:00)
[2022-12-25] MEDS: MELATONIN 3 MG TAB PO SCH (20:17)
[2022-12-25] MEDS: BUMETANIDE 1 MG TAB PO SCH (20:17)
[2022-12-25] MEDS ORDERED: BUMETANIDE 4 MG in SYRINGE 0 ML IV SCH (21:00)
[2022-12-25] MEDS ORDERED: ATORVASTATIN 40 MG TAB PO SCH (21:00)
--- NOTE | 2022-12-25 21:04 | Billing Data ---
Date of Service December 25, 2022 Coding Level of Care Code 16171 INT INP/OBS CARE
[2022-12-26] MEDS: LORazepam 2 MG/1 ML VIAL IV PRN ×3 (02:05→21:18)
[2022-12-26] MEDS: BUMETANIDE 1 MG TAB PO SCH ×2 (07:59→17:07)
--- NOTE | 2022-12-26 08:48 | Hospitalist Progress Note ---
Date of Service December 26, 2022 Assessment & Plan (1) SOB (shortness of breath): Plan: Richard is a 77 year old male w/ PmHx chronic diastolic heart failure, COPD, aortic stenosis s/p TAVR 2019, chronic respiratory failure on home 5-6L home O2, carotid artery stenosis s/p CEA, tobacco use, history of GI bleed secondary to AVM, HTN admitted forprogressive shortness of breath. Goals of care: -Given patient's end stage heart failure with further complex medical history, he and have elected to transition to comfort focused care -For now continuing bumetanide to provide comfort/assist breathing status -Other home meds DC'd -Lorazepam PRN, morphine PRN HFpEF -- acute on chronic -Baseline weight around 185-190lbs. -Continue home metoprolol tartrate 25mg. -CXR w/ moderate pulmonary congestion in b/l lung anderson, cardiomegaly. -Received several doses of Bumex IV in ED and on admission -- transitioned to 4mg PO BID on 2 PM -DC home spironolactone & metolazone -Breathing status improved, now on 5LNC (baseline) COPD: -Home O2 baseline 5-6L -Albuterol PRN, other home meds DC'd due to goals of care above HTN: -Home meds DC'd except bumetanide as above Anemia: -Hgb 8.4 on arrival. -Baseline 8-10. Anxiety/depression: -Home meds DC'd -Start PRN lorazepam for anxiety given goals of care ABDIEL: -Bipap HS per protocol. F/E/N/GI: heart healthy, sodium limit Code status: DNR/DNI per Palliative discussion -- transitioned to comfort focused care Dispo: Med/Surg (2) Hypoxia: (3) Chronic heart failure with preserved ejection fraction: (4) Iron deficiency anemia: (5) Anxiety: (6) COPD (chronic obstructive pulmonary disease): (7) Hypertension: Admission and Anticipated Discharge Date Admission Date: December 25, 2022 Supervising Physician Co-Signing Physician Notes I personally examined the patient and verified all verma points of history and exam, discussed case, and agree with decision making with Dr Maldonado breathing feels reasonable. mostly wants ice cream. vitals noted nad heent nc at mmm breathing unlabored no accessory muscles good effort end stage chronic respiratory failure due to HFpEF and COPD - hospice/supportive/comfort care. Subjective Patient seen at bedside. Feeling similar to yesterday. No new complaints. Review of Systems Review of Systems: As per HPI. Physical Exam Constitutional: WD/WN, vitals as above Patient resting in bed not in any acute distress. Eyes: PERRL, conjunctivae normal, anicteric sclerae Respiratory: Mild end expiratory wheeze, mildly course throughout bilateral lung anderson. Cardiovascular: Rate/Rhythm: regular rate and regular rhythm Heart Sounds: normal S1 and normal S2 1+ pitting edema bilaterally at lower extremities up to mid jeffers Gastrointestinal (Abdomen): normal bowel sounds, soft, nontender, no hepatosplenomegaly Skin: Bilateral legs with chronic lymph and venous stasis changes. Results & Data Results & Data ([facility]) Vital Signs (Past 12 Hours) Vital Signs Temp Pulse Resp BP Pulse Ox O2 Del Method O2 Flow Rate 12/26/22 07:12 36.7 C 89 16 155/61 H 92 Nasal Cannula 6 Resident Activity Tracking Resident Involvement: Resident Care Provided Care Provided: Adult Hospital Medicine (1) COPD (chronic obstructive pulmonary disease) COPD type: COPD with acute exacerbation Qualified Code(s): J44.1 - Chronic obstructive pulmonary disease with (acute) exacerbation
--- NOTE | 2022-12-26 18:02 | Billing Data ---
Date of Service December 26, 2022 Coding Level of Care Code 87368 SUB INP/OBS CARE
[2022-12-26] MEDS: MELATONIN 3 MG TAB PO SCH (21:21)
[2022-12-26] MEDS: MoRPHine SULFATE 2 MG/ML CARP IV PRN (21:50)
[2022-12-26] MEDS ORDERED: LORazepam 2 MG/1 ML VIAL IV STA ×2 (22:04→23:48)
[2022-12-27] MEDS: MoRPHine SULFATE 2 MG/ML CARP IV PRN ×4 (03:03→07:58)
[2022-12-27] MEDS ORDERED: STAT IV Infusion **Titration per Protocol STA (04:54)
[2022-12-27] MEDS ORDERED: LORazepam 50 MG in D5W 250ML IN *POLYOLEFIN BAG* 25 ML IV SCH (05:00)
[2022-12-27] MEDS ORDERED: LORazepam 2 MG/1 ML VIAL IV PRN (05:11)
--- NOTE | 2022-12-27 07:19 | Hospitalist Progress Note ---
Date of Service December 27, 2022 Assessment & Plan (1) SOB (shortness of breath): Plan: Richard is a 77 year old male w/ PmHx chronic diastolic heart failure, COPD, aortic stenosis s/p TAVR 2019, chronic respiratory failure on home 5-6L home O2, carotid artery stenosis s/p CEA, tobacco use, history of GI bleed secondary to AVM, HTN admitted forprogressive shortness of breath. Goals of care: -Given patient's end stage heart failure with further complex medical history, he and have elected to transition to comfort focused care -For now continuing bumetanide to provide comfort/assist breathing status -Other home meds DC'd -Lorazepam PRN, morphine PRN HFpEF -- acute on chronic -Baseline weight around 185-190lbs. -Continue home metoprolol tartrate 25mg. -CXR w/ moderate pulmonary congestion in b/l lung anderson, cardiomegaly. -Received several doses of Bumex IV in ED and on admission -- transitioned to 4mg PO BID on 2 PM -DC home spironolactone & metolazone -Breathing status improved, now on 5LNC (baseline) COPD: -Home O2 baseline 5-6L -Albuterol PRN, other home meds DC'd due to goals of care above HTN: -Home meds DC'd except bumetanide as above Anemia: -Hgb 8.4 on arrival. -Baseline 8-10. Anxiety/depression: -Home meds DC'd -Start PRN lorazepam for anxiety given goals of care ABDIEL: -Bipap HS per protocol. F/E/N/GI: heart healthy, sodium limit Code status: DNR/DNI per Palliative discussion -- transitioned to comfort focused care Dispo: Med/Surg (2) Hypoxia: (3) Chronic heart failure with preserved ejection fraction: (4) Iron deficiency anemia: (5) Anxiety: (6) COPD (chronic obstructive pulmonary disease): (7) Hypertension: Admission and Anticipated Discharge Date Admission Date: December 25, 2022 Results & Data Results & Data ([facility]) Vital Signs (Past 12 Hours) Vital Signs O2 Del Method O2 Flow Rate 12/26/22 19:29 Nasal Cannula 6 (1) COPD (chronic obstructive pulmonary disease) COPD type: COPD with acute exacerbation Qualified Code(s): J44.1 - Chronic obstructive pulmonary disease with (acute) exacerbation
--- NOTE | 2022-12-27 09:52 | Discharge Summary ---
Date of Service December 27, 2022 Admission HPI Per Admitting Provider Richard is a 77 year old male w/ PmHx chronic diastolic heart failure, COPD, aortic stenosis s/p TAVR 2019, chronic respiratory failure on home 5-6L home O2, carotid artery stenosis s/p CEA, tobacco use, history of GI bleed secondary to AVM, HTN who came into the hospital for progressive shortness of breath. Patient has had multiple admission over the past few months for shortness of breath in the face of fluid overload. Patient states that over the past day he has felt increasingly short of breath and so he came into the ED. He has not had any symptoms of chest pain, cough, fevers, chills, abdominal pain, diarrhea, urinary symptoms. In the ED he was found to be hypoxic on his home 6L of oxygen, WBC 7.47, Hgb 8.4, plt 342, electrolytes WNL, bicarb 39, BUN 30, Creat 1.15, U/A normal. Patient was given 2mg IV Bumex. Admission Exam Per Admitting Provider Constitutional: WD/WN, vitals as above Patient resting in bed not in any acute distress. Eyes: PERRL, conjunctivae normal, anicteric sclerae Respiratory: Mild end expiratory wheeze, mildly course throughout bilateral lung anderson. Cardiovascular: Rate/Rhythm: regular rate and regular rhythm Heart Sounds: normal S1 and normal S2 1+ pitting edema bilaterally at lower extremities up to mid jeffers Gastrointestinal (Abdomen): normal bowel sounds, soft, nontender, no hepatosplenomegaly Skin: Bilateral legs with chronic lymph and venous stasis changes. Principal Diagnosis Acute on Chronic HFpEF Acute on Chronic Respiratory Failure Discharge Exam No respirations per auscultation. Asystole per auscultation. No radial/femoral/carotid pulses. Pupils fixed/dilated. Discharge Data Allergies Allergy/AdvReac Type Severity Reaction Status Date / Time No Known Allergies Allergy Verified 12/18/22 08:31 Consultations 12/25/22 04:12 ED Decision to Admit Stat 12/25/22 09:37 Consult Palliative Care Routine 12/25/22 12:19 Consult Palliative Care Routine Hospital Course (1) Hypoxia: Goals of care: - Given patient's end stage heart failure with further complex medical history, he and have elected to transition to comfort focused care - transitioned on 2/3 - significant air hunger throughout hospital stay requiring both Ativan and Morphine - Bumetanide provided while hospitalized to assist with comfort/air hunger - patient progressively desaturated throughout hospitalization, passed on 12/27 at 09:30 HFpEF --acute on chronic - Baseline weight around 185-190lbs. - CXR w/ moderate pulmonary congestion in b/l lung anderson, cardiomegaly. -Received several doses of Bumex IV in ED and on admission -- transitioned to 4mg PO BID on 2/3 PM - progressive desaturations and passed on 12/27 as stated above COPD: -Home O2 baseline 5-6L -Albuterol PRN, other home meds DC'd due to goals of care above HTN: -Home meds DC'd except bumetanide as above Anemia: -Hgb 8.4 on arrival. -Baseline 8-10. Anxiety/depression: -Home meds DC'd ABDIEL: -Bipap HS per protocol. on 12/27 as stated above (2) Chronic heart failure with preserved ejection fraction: (3) COPD (chronic obstructive pulmonary disease): Total Time Total Time Spent Total Time Spent (In Minutes): <30 minutes Discharge Plan Discharge Items Patient Disposition: Discharge Diagnosis: Acute on Chronic HFpEF Acute on Chronic Hypoxic Respiratory Failure Other Date/Time: 12/27/22 09:30 Supervising Physician Co-Signing Physician Notes I personally examined the patient and verified all verma points of history and exam, discussed case, and agree with decision making with Dr Perez pt passed. seen shortly thereafter/shortly after pronounced by dr perez end stage COPD/HFpEF - comfort care/passed today. Resident Activity Tracking Resident Involvement: Resident Care Provided Care Provided: Adult Hospital Medicine
--- NOTE | 2022-12-27 09:52 | Death Pronouncement Note ---
Date of Service December 27, 2022 Pronouncement Note Admission Date December 25, 2022 Date and Time of Date of : 12/27/22 Time of : 09:30 Preliminary Cause of (1) Hypoxia: Additional Comments: Hypoxia due to Acute on Chronic severe HFpEF. (2) Chronic heart failure with preserved ejection fraction: Additional Comments: See above (3) COPD (chronic obstructive pulmonary disease): COPD type: COPD with acute exacerbation Qualified Code(s): J44.1 - Chronic obstructive pulmonary disease with (acute) exacerbation Additional Comments: Severe COPD and significant smoking history contributed. Additional Data Confirmation of : no pulse, no respirations, no heart sounds and pupils fixed and dilated Pronouncement Performed By: Resident Physician Family: contacted Attending/PCP notified?: Yes Attending physician: Carlton Veloz, DO Was code activated?: No Resident Activity Tracking Resident Involvement: Resident Care Provided Care Provided: Adult [facility] Medicine
[2022-12-27] MEDS: BUMETANIDE 1 MG TAB PO SCH (10:49)
--- NOTE | 2022-12-27 14:50 | Billing Data ---
Date of Service December 27, 2022 Coding Level of Care Code HOSP INP/OBS DISCH 30 MIN/LESS
== END 2022-12-27 11:16 | disposition expired | DRG 291 ==
LOC: ED 23:32 → SUATTDRO 12-25 05:18 → EDINP 12-25 05:18 → 3W 12-25 05:58